=== PATIENT | male | born 1945 | race Caucasian/White ===

== ENCOUNTER 2016-11-03 06:59 | Inpatient (IN) | payer MEDICARE, OTHER ==
[~2016-11-03] VITALS: Ht 170.2 cm; Wt 89.9 kg
[2016-11-03] VITALS (8 sets, daily range): BP systolic 138–143; BP diastolic 63–65; PULSE 84–99; RESP 17; TEMP 98.6; Ht 170.2 cm; Wt 89.9 kg
[~2016-11-03 06:59] MED LIST: ALLO100T64 PO; ALPR0.257 PO; AMLO-145 PO; ASP81 PO; ATOR20TA38 PO; CARV6.2579 PO; CLOP75TA27 PO; DOCU-144 PO; HYDR-3498 PO; HYDR-3672 PO; ISOS30TA5 PO; LOSA50TA6 PO; OXYC5TAB84 PO; ROPI0.2530 PO; ZOLP5TAB6 PO
[2016-11-03] MEDS ORDERED: ALBUTEROL 0.5% (NEB) 2.5 MG/0.5 ML AMP INH STA (07:25)
[2016-11-03] MEDS ORDERED: IPRATROPIUM (NEB) 0.5 MG/2.5 ML AMP INH STA (07:25)
[2016-11-03] MEDS ORDERED: NITROGLYCERIN (SL) 0.4 MG TAB ONE (07:29)
[2016-11-03] MEDS ORDERED: NITROGLYCERIN (SL) 0.4 MG TAB SL PRN ×2 (07:30→11:00)
[2016-11-03] MEDS ORDERED: ASPIRIN 325 MG TAB PO STA (07:30)
[2016-11-03] MEDS ORDERED: NITROGLYCERIN 50 MG/D5W (PMX) 250 ML IV STA (07:32)
--- NOTE | 2016-11-03 07:33 | ERA ---
ER Documentation Chief Complaint Date/Time DATE: 11/03/16 TIME: 07:31 Chief Complaint BIBA FOR SOB,COUGHING AND WEAKNESS. HPI This is a 71-year-old male with known history of end-stage renal disease on hemodialysis every Thursday and Thursday. His last full run of dialysis was 48 hours ago. The patient was scheduled to have dialysis this morning at 8: 15 AM however was unable to go to his dialysis appointment as he stated he was experiencing severe difficulty breathing, productive cough and generalized myalgias. He indicates the coughing has been present for several months. The shortness of breath he indicates worsened over the past 24 hours. One week ago he was at [facility] on an outpatient basis to see a equipment tech. He stated a chest radiograph had been performed and was normal. His industrial boilermaker is Dr. Pop Johnson. The patient states he has had no fevers no shaking or chills. The patient also indicates that while in route to the hospital via EMS he developed a chest pressure that did not radiate to the neck arm back or jaw. He indicates the chest pressure still present at this time. One year ago the patient had an echocardiogram that showed an ejection fraction of 40% with left ventricular systolic dysfunction ROS All systems reviewed and are negative except as per history of present illness. Medications Home Meds Active Scripts Atorvastatin Calcium* (Atorvastatin Calcium*) 20 Mg Tab, 40 MG PO HS for 90 Days Prov:POP JOHNSON MD 09/06/15 Aspirin (Aspirin) 81 Mg Chew, 81 MG PO DAILY for 90 Days Prov:POP JOHNSON MD 09/06/15 Ropinirole Hcl* (Requip*) 0.25 Mg Tab, 0.5 MG PO TID, #90 Prov:POP JOHNSON MD 08/23/15 Docusate Sodium* (Colace*) 100 Mg Cap, 300 MG PO HS for 30 Days Prov:POP JOHNSON MD 08/23/15 Reported Medications Losartan Potassium* (Losartan Potassium*) 50 Mg Tablet, 50 MG PO DAILY 09/13/13 Amlodipine Besylate* (Amlodipine Besylate*) 5 Mg Tablet, 5 MG PO DAILY 09/13/13 Hydralazine Hcl* (Apresoline*) 50 Mg Tab, 50 MG PO BID 09/13/13 Hydrocodone Bit-Acetaminophen (Hydrocodone Bit-APAP) 1 Each Tablet, 1 EACH PO Q6 09/13/13 Alprazolam (Alprazolam) 0.25 Mg Tab.rapdis, 0.25 MG PO BID 09/13/13 Allopurinol* (Zyloprim*) 100 Mg Tablet, 100 MG PO DAILY 09/13/13 Oxycodone Hcl* (Oxecta*) 5 Mg Tablet.orl, 5 MG PO Q8 09/13/13 Isosorbide Mononitrate* (Isosorbide Mononitrate*) 30 Mg Tab.er.24h, 30 MG PO DAILY 05/19/13 Carvedilol* (Carvedilol*) 6.25 Mg Tablet, 12.5 MG PO BID 05/19/13 Zolpidem Tartrate* (Zolpidem Tartrate*) 5 Mg Tablet, 5 MG PO HS 03/26/13 Clopidogrel Bisulfate (Clopidogrel) 75 Mg Tablet, 75 MG PO DAILY 03/26/13 Allergies Allergies: Coded Allergies: No Known Allergy (Unverified , 09/03/15) PT. WAS ON BICILLIN BEFORE, WAS TOLD BY THE DOCTOR THAT HE IS NOT ALLERGIC TO PCN. PMhx/Soc History of Surgery: Yes (KIDNEY TRANSPLANT,AVF PLACEMENT,STENTS) Anesthesia Reaction: No Hx Neurological Disorder: Yes (CVA) Hx Respiratory Disorders: No Hx Cardiac Disorders: Yes (HTN, MD, STENTS) Hx Psychiatric Problems: Yes (ANXIETY) Hx Miscellaneous Medical Probl: No Hx Alcohol Use: No Hx Substance Use: No Hx Tobacco Use: No Physical Exam Vitals Vital Signs Date Time Temp Pulse Resp B/P Pulse Ox O2 Delivery O2 Flow Rate FiO2 11/03/16 11:40 85 20 165/93 100 BIPAP 11/03/16 11:30 83 20 151/83 100 BIPAP 11/03/16 11:15 86 20 148/79 100 BIPAP 11/03/16 11:00 86 20 131/82 100 BIPAP 11/03/16 10:15 103 20 138/89 100 BIPAP 11/03/16 10:00 101 20 142/85 100 BIPAP 11/03/16 09:45 97 20 138/75 100 BIPAP 11/03/16 09:34 90 100 60 11/03/16 09:30 98 20 149/74 100 BIPAP 11/03/16 09:15 101 20 157/75 100 BIPAP 11/03/16 09:00 101 20 143/88 100 BIPAP 11/03/16 08:45 102 20 141/80 100 BIPAP 11/03/16 08:30 101 24 147/83 100 BIPAP 11/03/16 08:15 106 24 157/85 100 BIPAP 11/03/16 08:00 112 24 173/95 100 BIPAP 11/03/16 07:50 98.0 123 24 204/102 100 BIPAP 11/03/16 07:47 120 25 97 100 11/03/16 07:47 125 99 100 11/03/16 07:35 128 28 237/132 92 Mask 6.0 11/03/16 07:14 98.0 104 24 177/117 100 Physical Exam Constitutional:Well-developed. Well-nourished. Patient in severe respiratory distress HEENT:Normocephalic. Atraumatic.Pupils were equal round reactive to light. Moist mucous membranes.No tonsillar exudates. Neck: No nuchal rigidity. No lymphadenopathy. No posterior cervical spine tenderness or step-offs. Respiratory: Patient using accessory muscles of respiration. Unable to speak more than 2 words before becoming short of breath. Bilateral rhonchi more prominent on the left than the right as breath sounds were slightly diminished in the right lower lobe. No wheezing on end auscultation bilaterally. Cardiovascular: Regular rate regular rhythm.No murmurs. No rubs were appreciated.S1, S2 normal. Distal pulses are palpable 2+ bilaterally. GI: Abdomen was soft. Nontender. Non Distended. No pulsatile abdominal masses or bruits. No rebound. No guarding. Bowel sounds were present and normal. Muscle skeletal: Full range of motion of both the upper and lower extremities bilaterally.Normal muscle tone.No assymetrical calf tenderness or swelling. Skin: No petechia, no purpura. No lesions on the palms or the soles of the feet. No maculopapular rash. Positive thrill and bruit of the left upper extremity AV fistula. NEURO: Patient was alert, awake, orientated x3.No facial droop. Gait not observed due to severe respiratory distress.Speech had regular rate and rhythm. No focal neurological deficits. Result Diagram: 1/16/17 0808 1/16/17 0808 Results 24 hrs Laboratory Tests Test 11/03/16 08:08 11/03/16 11:25 Activated Partial Thromboplast Time 39.0Sec Alanine Aminotransferase (ALT/SGPT) 26IU/L Albumin 3.7g/dl Albumin/Globulin Ratio 1.19 Alkaline Phosphatase 167IU/L Anion Gap 23 Aspartate Amino Transf (AST/SGOT) 27IU/L Basophils # 0.010^3/ul Basophils % 0.4% Blood Morphology Comment Blood Urea Nitrogen 50mg/dl Calcium Level 9.3mg/dl Carbon Dioxide Level 30mmol/L Chloride Level 96mmol/L Creatinine 9.16mg/dl Direct Bilirubin 0.00mg/dl Eosinophils # 0.210^3/ul Eosinophils % 3.8% Globulin 3.10g/dl Glucose Level 112mg/dl Hematocrit 32.4% Hemoglobin 10.2g/dl INR International Normalized Ratio 1.08 Indirect Bilirubin 0.2mg/dl Lymphocytes # 1.210^3/ul Lymphocytes % 20.9% Mean Corpuscular Hemoglobin 27.9pg Mean Corpuscular Hemoglobin Concent 31.6g/dl Mean Corpuscular Volume 88.1fl Mean Platelet Volume 7.6fl Monocytes # 0.210^3/ul Monocytes % 4.4% Neutrophils # 3.910^3/ul Neutrophils % 70.5% Nucleated Red Blood Cells # 0.010^3/ul Nucleated Red Blood Cells % 0.0/100WBC Platelet Count 72933^3/UL Potassium Level 4.8mmol/L Prothrombin Time 14.0Sec Prothrombin Time Ratio 1.1 Red Blood Count 3.6810^6/ul Red Cell Distribution Width 20.2% Sodium Level 144mmol/L Total Bilirubin 0.2mg/dl Total Protein 6.8g/dl Troponin I 0.041ng/ml Pending White Blood Count 5.610^3/ul Creatine Kinase 23IU/L Creatine Kinase Index Pending Creatinine Kinase MB (Mass) Pending Current Medications Medications (Trade) Dose Ordered Sig/Leonardo Route PRN Reason Start Time Stop Time Status Last Admin Dose Admin Albuterol (Proventil 0.5% (Neb)) 10 mg ONCE STAT INH 11/03/16 07:25 11/03/16 07:28 DC 11/03/16 07:45 Ipratropium [place] (Atrovent 0.02% (Neb)) 1 mg ONCE STAT INH 11/03/16 07:25 11/03/16 07:28 DC 11/03/16 07:46 Nitroglycerin (Nitroglycerin (Sl Tab) 0.4 Mg) 25 tab STK-MED ONCE .ROUTE 11/03/16 07:29 11/03/16 07:30 DC Aspirin (Aspirin) 325 mg ONCE STAT PO 11/03/16 07:30 11/03/16 07:31 DC 11/03/16 07:44 Nitroglycerin 1 tab 1 tab Q5M UP TO 3 DOSES PRN SL CHEST PAIN 11/03/16 07:30 11/03/16 17:00 Nitroglycerin/ Dextrose 250 ml @ 0 mls/hr ONCE STAT IV 11/03/16 07:32 11/03/16 07:34 DC 11/03/16 07:45 Nitroglycerin/ Dextrose (Nitroglycerin 50 Mg/D5W (Pmx)) 250 ml @ ud STK-MED ONCE .ROUTE 11/03/16 07:35 11/03/16 07:36 DC Allopurinol (Zyloprim) 100 mg DAILY PO 11/03/16 12:00 11/03/16 11:56 Amlodipine Besylate (Norvasc) 5 mg DAILY PO 11/03/16 11:00 11/03/16 11:56 Aspirin (Aspirin) 81 mg DAILY PO 11/04/16 09:00 Atorvastatin Calcium (Lipitor) 40 mg DAILY@21 PO 11/03/16 21:00 Carvedilol (Coreg) 12.5 mg BID PO 11/03/16 11:00 11/03/16 11:56 Clopidogrel Bisulfate (plaVIX) 75 mg DAILY PO 11/03/16 11:00 11/03/16 11:54 Docusate Sodium (Colace) 300 mg HS PO 11/03/16 21:00 Hydralazine HCl (Apresoline) 50 mg BID PO 11/03/16 21:00 Acetaminophen/ Hydrocodone Bitart ([place] (5/325)) 1 tab Q6H PRN PO PAIN LEVEL 4-7 11/03/16 11:00 Isosorbide Mononitrate (Imdur) 30 mg DAILY PO 11/04/16 09:00 Losartan Potassium (Cozaar) 50 mg BID PO 11/03/16 21:00 Oxycodone HCl (Roxicodone) 5 mg Q8H PRN PO PAIN 11/03/16 14:00 11/03/16 14:00 DC Ropinirole HCl (Requip) 0.5 mg TID PO 11/03/16 13:00 11/03/16 11:57 Zolpidem Tartrate (Ambien) 5 mg HS PRN PO INSOMNIA 11/03/16 11:00 Alprazolam (Xanax) 0.25 mg BID PO 11/03/16 21:00 IV Flush (NS 3 ml) 3 ml PER PROTOCOL IV 11/03/16 11:00 Ondansetron HCl (Zofran Tab) 4 mg Q6H PRN PO NAUSEA AND/OR VOMITING 11/03/16 11:00 Nitroglycerin (Nitroglycerin (Sl Tab) 0.4 Mg) 1 tab Q5M PRN SL CHEST PAIN 11/03/16 11:00 Acetaminophen (Tylenol Tab) 650 mg Q6H PRN PO PAIN LEVEL 1-3 OR FEVER 11/03/16 11:00 Pantoprazole (Protonix Tab) 40 mg DAILY@06 PO 11/04/16 06:00 Allopurinol (Zyloprim) 100 mg DAILY PO 11/03/16 12:00 UNV Amlodipine Besylate (Norvasc) 5 mg DAILY PO 11/03/16 12:00 UNV Atorvastatin Calcium (Lipitor) 40 mg HS PO 11/03/16 21:00 UNV Carvedilol (Coreg) 12.5 mg BID PO 11/03/16 21:00 UNV Docusate Sodium (Colace) 300 mg HS PO 11/03/16 21:00 UNV Oxycodone HCl (Roxicodone) 5 mg Q8H PRN PO PAIN 11/03/16 14:00 Ropinirole HCl (Requip) 0.5 mg TID PO 11/03/16 13:00 11/03/16 13:00 DC Miscellaneous Information 0.25 mg BID PO 11/03/16 11:00 UNV IV Flush (NS 3 ml) 3 ml PER PROTOCOL IV 11/03/16 11:00 UNV Pantoprazole (Protonix Tab) 40 mg DAILY@06 PO 11/04/16 06:00 UNV Procedures/MDM The patient presented to the emergency department with shortness of breath. My differential diagnosis included but was not limited to upper airway obstruction , CHF, pulmonary embolism, cardiac ischemia, pneumonia, pneumothorax, anemia, drug overdose, pulmonary edema, COPD or asthma. This patient also presented to the emergency department with severely elevated blood pressure. My differential diagnosis included but was not limited to conditions that could end-organ damage such as acute coronary syndrome, acute pulmonary edema, aortic dissection, subarachnoid hemorrhage, intracerebral hemorrhage, cerebral infarction, withdrawal syndromes from beta blockers, or states of catecholamine excess such as pheochromocytoma or drug intoxication. The patient had uncontrolled hypertensive with end-organ damage to suggest hypertensive emergency. The treatment goal was immediate reduction of the mean arterial blood pressure. This was done in a controlled, graded manor, using improvement of the patient's condition as a guide. The patient's blood pressure reduction did not exceed more then a 20-25 percent reduction within the first 30 to 60 minutes. The patient was put on a fisheries enforcement officer, continuous pulse oximetry, and IV access was established by nursing staff. The antihypertensive agent used was nitroglycerin and the patient had been placed on noninvasive mechanical ventilation with a BiPAP for the patient's severe difficulty in breathing. The patient was also given nebulizer treatments of albuterol and Atrovent. 12 Lead EKG tracing ordered and reviewed by myself showed: Sinus tachycardia of 118 bpm and no arrhythmia. NJ interval normal. QRS duration widened at 152 ms. The patient had a left bundle branch block however utilizing a scar posterior criteria there is no underlying ST segment elevation or depression No ST segment elevation No ST segment depression. No changes consistent with acute ischemia. A One view chest radiograph is ordered and reviewed by myself and indicated the following: Findings consistent with asymmetrical pulmonary edema and rule out congestive heart failure. Inflammatory infiltrates particularly at the bases and right upper lobe should be considered. I did obtain blood cultures however my clinical suspicion was low for pneumonia as there is no leukocytosis no fever and the patient did not have a productive cough. I did feel the patient is admitted for more consistent with pulmonary edema from congestive heart failure and therefore antibiotics were not started at this time and blood cultures will be followed up with. I spoke with Dr. Spencer who was taking call for Dr. Johnson and will arrange for emergent dialysis. The patient will be medicine serious condition to the hospitalist Dr. Cuba to the intensive care unit Critical Care: Time: 60 minutes Treatments/Evaluations: Close monitoring and treatment of unstable vital signs, cardiorespiratory, and neurologic status, while maintaining tight balance of fluid, respiratory, and cardiac interventions. Departure Diagnosis: Primary Impression: Congestive heart failure Qualified Code: I50.9 - Acute congestive heart failure, unspecified congestive heart failure type Additional Impressions: Hypertensive emergency Acute renal failure Qualified Code: N17.9 - Acute renal failure, unspecified acute renal failure type Pleural effusion on right Condition: Serious ESTRELLA TALBERT Nov 03, 2016 07:32
[2016-11-03] MEDS ORDERED: NITROGLYCERIN 50 MG/D5W (PMX) 250 ML ONE (07:35)
--- NOTE | 2016-11-03 07:57 | RADRPT ---
PROCEDURE: XR Chest. CLINICAL INDICATION: New asthma exacerbation TECHNIQUE: Single portable view of the chest was obtained COMPARISON: Chest 09/04/2015 FINDINGS: The heart is probably upper limits of normal in size allowing for technique. There is bilateral air space disease fairly diffuse throughout the right lung and in left perihilar and left lower lobe. The pulmonary vasculature is indistinct. There is a small right pleural effusion. Probable small l eft pleural effusion. IMPRESSION: Findings consistent with asymmetrical pulmonary edema and rule out congestive heart failure. Inflam matory infiltrates particularly at the bases and right upper lobe should be considered. RPTAT:AAJJ Physician Suzie Date Time Electronically viewed and signed by Lin Pham Physician on 11/03/2016 07:57 /
[2016-11-03 08:22] LABS: BASOPHILS % 0.4 % (0.0-2.0); EOSINOPHILS # 0.2 10^3/ul (0.0-0.5); EOSINOPHILS % 3.8 % (0.0-7.0); HEMATOCRIT 32.4 % (42.0-52.0); HEMOGLOBIN 10.2 g/dl (14.0-18.0); LYMPHOCYTES # 1.2 10^3/ul (0.8-2.9); LYMPHOCYTES % 20.9 % (15.0-51.0); MEAN CORPUSCULAR HEMOGLOBIN 27.9 pg (29.0-33.0); MEAN CORPUSCULAR HGB CONC 31.6 g/dl (32.0-37.0); MEAN CORPUSCULAR VOLUME 88.1 fl (82.0-101.0); MEAN PLATELET VOLUME 7.6 fl (7.4-10.4); MONOCYTE # 0.2 10^3/ul (0.3-0.9); MONOCYTES % 4.4 % (0.0-11.0); NEUTROPHIL # 3.9 10^3/ul (1.6-7.5); NEUTROPHILS % 70.5 % (39.0-77.0); PLATELET COUNT 163 10^3/UL (140-440); RED BLOOD COUNT 3.68 10^6/ul (4.70-6.10); RED CELL DISTRIBUTION WIDTH 20.2 % (11.5-14.5); UNCORRECTED WBC 5.6 10^3/ul (4.8-10.8); WHITE BLOOD COUNT 5.6 10^3/ul (4.8-10.8)
[2016-11-03 08:25] LABS: ALBUMIN 3.7 g/dl (3.3-4.9); INR 1.08; POTASSIUM 4.8 mmol/L (3.5-5.1); PT RATIO 1.1
[2016-11-03 08:27] LABS: ALBUMIN/GLOBULIN RATIO 1.19; BILIRUBIN,INDIRECT 0.2 mg/dl (0-1.1); BILIRUBIN,TOTAL 0.2 mg/dl (0.2-1.3); CREATININE 9.16 mg/dl (0.61-1.24); TOTAL PROTEIN 6.8 g/dl (6.1-8.1)
[2016-11-03 08:28] LABS: CALCIUM 9.3 mg/dl (8.4-10.2)
[2016-11-03 08:36] LABS: CONDITION 1; LH ANALYZER COMMENTS 1
[2016-11-03 08:40] LABS: TROPONIN-I 0.041 ng/ml (0.00-0.12)
[2016-11-03] MEDS ORDERED: HYDROCODONE/APAP (5/325) TAB PO PRN (11:00)
[2016-11-03] MEDS ORDERED: NACL 0.9% 3 ML SYG IV SCH ×2 (11:00)
[2016-11-03] MEDS ORDERED: NON-FORMULARY/PATIENT OWN MED (Alprazolam 0.25 MG) PO SCH (11:00)
[2016-11-03] MEDS ORDERED: ONDANSETRON 4 MG TAB PO PRN (11:00)
[2016-11-03] MEDS ORDERED: ACETAMINOPHEN 325 MG TAB PO PRN (11:00)
--- NOTE | 2016-11-03 11:51 | CONS ---
Date/Time of Note Date/Time of Note DATE: 11/03/16 TIME: 11:38 INPATIENT CONSULTATION REQUESTING PHYSICIAN: Dr. Cuba REASON FOR CONSULT: Congestive heart failure, hypertension, chest pain HISTORY OF PRESENT ILLNESS: Patient is a 71-year-old white male 1. Known coronary artery disease multiple coronary stents interventions . Last angiogram 09/02 occluded circumflex only treated medically. 2. Intermittent left bundle-branch block. 3. End-stage renal disease on dialysis failed to prior renal transplants. 4. Hypertension. 5. Hyperlipidemia. 6. Gout. 7. Known ischemic cardiopathy ejection fraction 40%. Patient with 3 month history of chronic cough who was admitted with sudden onset of shortness of breath and chest pain found to be markedly hypertensive and placed on IV nitroglycerin and BiPAP currently feeling better. Did not have his dialysis this morning as scheduled. Denies any PND has chronic leg edema denies any palpitations leg edema or syncope. His cardiac history is complex and unknown at this time but is followed by Dr. lawton at [place]. Patient states that last weekend her chest x-ray at [facility] which was clear. RISK FACTORS former smoker, known coronary artery disease, renal failure, hypertension, hyperlipidemia, gout, there is no diabetes or family history of early heart disease. PAST MEDICAL HISTORY: 1. Hypertension. 2. Hyperlipidemia. 3. End-stage renal disease failed to renal transplants. 4. Coronary artery disease multiple coronary stents last angiogram occluded circumflex otherwise treated medically 09/02 5. Known ischemic cardiopathy ejection fraction on last echo 10/1639%. 6. Gout. PAST SURGICAL HISTORY: 2 prior failed renal transplants, please see complete history and physical for further surgical history. MEDICATIONS: Hydralazine 50 twice a day, Lipitor 40 mg day, losartan 50 twice a day, Coreg 12.5 twice a day, Plavix, aspirin, Imdur 30, allopurinol 100 mg, droperidol 0.5 3 times a day, amlodipine 5 mg a day. ALLERGIES: No known drug allergies. SOCIAL HISTORY: Patient retired, former smoker denies alcohol or drug use or smoking at present. FAMILY HISTORY: Denies any family history of premature coronary disease. REVIEW OF SYSTEMS: Patient denied any fevers, chills, weight loss, nausea, vomiting, diarrhea, constipation, has had chronic cough, but no hemoptysis, dysuria, hematuria, nocturia, any neurologic symptoms, headache, had onset of chest pains, dyspnea, but no PND, orthopnea, leg edema, or palpitations. All other review of systems were normal. PHYSICAL EXAMINATION: Vital signs please see chart. HEENT; positive JVD, positive HJR, carotids 2 over 4+ without bruits. Chest: Diffuse rales and rhonchi . Cardiac: S4, S1, S2 with paradoxical splitting, 1/6 systolic ejection murmur, no rub click or diastolic murmur noted. Abdominal: Bowel sounds positive, soft nontender, no abdominal bruit noted, no hepatosplenomegaly. Extremities: No cyanosis, clubbing, trace to 1+ edema bilaterally. Negative Homans sign or palpable cords. Shunt and left arm Pulses: 2/4 pulses diffusely no bruits noted. ADDITIONAL DATA: EKG on admission sinus tachycardia 120 with PVCs left bundle-branch block pattern left axis deviation Chest x-ray revealed asymmetric pulmonary edema right worse than left, cardiomegaly. ASSESSMENT: 1. Pulmonary edema cannot rule out right lung infectious process. 2. Hypertensive crisis. 3. 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 4. Hyperlipidemia. 5. Gout. 6. Coronary artery disease multiple coronary interventions last catheter 09/02 occluded circumflex otherwise treated medically. 7. Ischemic cardiopathy ejection fraction 40% on last echo 11/03 At this time the patient appears to have pulmonary edema with severe hypertension from respiratory difficulty. Will need urgent dialysis and discussed with Dr. Cuba but would also treat for possible concomitant pulmonary infection. We'll continue Lipitor, losartan, carvedilol, hydralazine, amlodipine and continue IV nitroglycerin for now. We'll check echocardiogram. We 'll follow troponin pattern but patient on dialysis. PLAN: 1. Emergent dialysis per Dr. Cuba. 2. Continue hydralazine, losartan, carvedilol, amlodipine and IV nitroglycerin for now. 3. Check 2-D echocardiogram. 4. Follow chest x-ray and troponins and laboratory studies. 5. Consider pulmonary consultation and empiric antibiotics with asymmetric white lung opacification. KAMRYN AYALA MD Nov 03, 2016 11:50
[2016-11-03] MEDS: CLOPIDOGREL 75 MG TAB PO SCH (11:54)
[2016-11-03] MEDS: AMLODIPINE 5 MG TAB PO SCH (11:56)
[2016-11-03] MEDS: ALLOPURINOL 100 MG TAB PO SCH (11:56)
[2016-11-03] MEDS: ROPINIROLE 0.25 MG TAB PO SCH ×2 (11:57→21:24)
[2016-11-03] MEDS ORDERED: ALLOPURINOL 100 MG TAB PO SCH (12:00)
[2016-11-03] MEDS ORDERED: AMLODIPINE 5 MG TAB PO SCH (12:00)
[2016-11-03 12:06] LABS: TROPONIN-I 0.051 ng/ml (0.00-0.12)
[2016-11-03 12:39] LABS: CK-MB 0.42 ng/ml (0.0-2.4)
--- NOTE | 2016-11-03 12:58 | CONS ---
Date/Time of Note Date/Time of Note DATE: 11/03/16 TIME: 12:45 Assessment/Plan Assessment/Plan Chief Complaint/Hosp Course 1) asymmetrical CHF doubt pt has pneumonia continue with diuresis and repeat CXR in a.m. will start ceftriaxone/azithro but if CXR shows good improvement will likely d/ c them tomorrow send sputum cx 2) asymmetrical calf swelling will order LE venous dopplers 3) CAD 4) ESRD with 2 failed kidney Tx Problems: Consultation Date/Type/Reason Admit Date/Time 11/03/16 Date of Consultation: Nov 03, 2016 Type of Consultation: id Hx of Present Illness pt has had a 3 month hx of cough, productive of clear to brownish phlegm He has had progressive SOB but after a BM this a.m. he got very fatigued and more SOB and came to the hospital. He denies F, C, NS. No N, V, D. He states he has had no sick contacts. No muscle aches, joint pains, rashes. No CP, abd pain. He has coryza and sinus drainage Past Medical History ESRD, CVA, [place], CAD, cardiac stents, HTN, hyperlipidemia, gout Past Surgical History failed kidney Tx x2 cataract surgery Social History Smoking Status: Never smoker Exam/Review of Systems Vital Signs Vitals Vital Signs Date Time Temp Pulse Resp B/P Pulse Ox O2 Delivery O2 Flow Rate FiO2 11/03/16 11:40 85 20 165/93 100 BIPAP 11/03/16 09:34 60 11/03/16 07:50 98.0 11/03/16 07:35 6.0 Exam Constitutional: alert, oriented Psych: no complaints Head: normocephalic Eyes: nl conjunctiva, nl sclera ENMT: mucosa pink and moist Neck: supple Respiratory: other (some crackles at R base) Cardiovascular: regular rate and rhythm Gastrointestinal: non-tender, soft Extremities: other (L calf is larger than R calf) Neurological: MOTOR POWER CONNECTOR II-XII intact, nl mental status, nl speech Results Result Diagram: 11/03/16 0808 11/03/16 0808 Results 24 hrs Laboratory Tests Test 11/03/16 08:08 11/03/16 11:25 Activated Partial Thromboplast Time 39.0 H Alanine Aminotransferase (ALT/SGPT) 26 Albumin 3.7 Albumin/Globulin Ratio 1.19 Alkaline Phosphatase 167 H Anion Gap 23 H Aspartate Amino Transf (AST/SGOT) 27 Basophils # 0.0 Basophils % 0.4 Blood Morphology Comment Blood Urea Nitrogen 50 H Calcium Level 9.3 Carbon Dioxide Level 30 Chloride Level 96 L Creatinine 9.16 H Direct Bilirubin 0.00 Eosinophils # 0.2 Eosinophils % 3.8 Globulin 3.10 Glucose Level 112 Hematocrit 32.4 L Hemoglobin 10.2 L INR International Normalized Ratio 1.08 Indirect Bilirubin 0.2 Lymphocytes # 1.2 Lymphocytes % 20.9 Mean Corpuscular Hemoglobin 27.9 L Mean Corpuscular Hemoglobin Concent 31.6 L Mean Corpuscular Volume 88.1 Mean Platelet Volume 7.6 Monocytes # 0.2 L Monocytes % 4.4 Neutrophils # 3.9 Neutrophils % 70.5 Nucleated Red Blood Cells # 0.0 Nucleated Red Blood Cells % 0.0 Platelet Count 163 # Potassium Level 4.8 Prothrombin Time 14.0 Prothrombin Time Ratio 1.1 Red Blood Count 3.68 #L Red Cell Distribution Width 20.2 #H Sodium Level 144 Total Bilirubin 0.2 Total Protein 6.8 Troponin I 0.041 0.051 White Blood Count 5.6 # Creatine Kinase 23 Creatine Kinase Index 1.8 Creatinine Kinase MB (Mass) 0.42 Medications Medications Current Medications Allopurinol (Zyloprim) 100 mg DAILY PO Last administered on 11/03/16 11:56; Admin Dose 100 MG; Start 11/03/16 at 12:00 Amlodipine Besylate (Norvasc) 5 mg DAILY PO Last administered on 11/03/16 11: 56; Admin Dose 5 MG; Start 11/03/16 at 11:00 Aspirin (Aspirin) 81 mg DAILY PO ; Start 11/04/16 at 09:00 Atorvastatin Calcium (Lipitor) 40 mg DAILY@21 PO ; Start 11/03/16 at 21:00 Carvedilol (Coreg) 12.5 mg BID PO Last administered on 11/03/16 11:56; Admin Dose 12.5 MG; Start 11/03/16 at 11:00 Clopidogrel Bisulfate (plaVIX) 75 mg DAILY PO Last administered on 11/03/16 11 :54; Admin Dose 75 MG; Start 11/03/16 at 11:00 Docusate Sodium (Colace) 300 mg HS PO ; Start 11/03/16 at 21:00 Hydralazine HCl (Apresoline) 50 mg BID PO ; Start 11/03/16 at 21:00 Acetaminophen/ Hydrocodone Bitart ([place] (5/325)) 1 tab Q6H PRN PO PAIN LEVEL 4 -7; Start 11/03/16 at 11:00 Isosorbide Mononitrate (Imdur) 30 mg DAILY PO ; Start 11/04/16 at 09:00 Losartan Potassium (Cozaar) 50 mg BID PO ; Start 11/03/16 at 21:00 Ropinirole HCl (Requip) 0.5 mg TID PO Last administered on 11/03/16t 11:57; Admin Dose 0.5 MG; Start 11/03/16 at 13:00 Zolpidem Tartrate (Ambien) 5 mg HS PRN PO INSOMNIA; Start 11/03/16 at 11:00 Alprazolam (Xanax) 0.25 mg BID PO ; Start 11/03/16 at 21:00 Ondansetron HCl (Zofran Tab) 4 mg Q6H PRN PO NAUSEA AND/OR VOMITING; Start at 11:00 Nitroglycerin (Nitroglycerin (Sl Tab) 0.4 Mg) 1 tab Q5M PRN SL CHEST PAIN; Start 11/03/16 at 11:00 Acetaminophen (Tylenol Tab) 650 mg Q6H PRN PO PAIN LEVEL 1-3 OR FEVER; Start at 11:00 Pantoprazole (Protonix Tab) 40 mg DAILY@06 PO ; Start 11/04/16 at 06:00 Oxycodone HCl (Roxicodone) 5 mg Q8H PRN PO PAIN; Start 11/03/16 at 14:00 GILA QUEZADA MD Nov 03, 2016 12:55
[2016-11-03] MEDS ORDERED: CEFTRIAXONE 1 GM INJ IM ONE (13:00)
[2016-11-03] MEDS ORDERED: AZITHROMYCIN 250 MG TAB PO ONE (13:00)
[2016-11-03] MEDS ORDERED: ROPINIROLE 0.25 MG TAB PO SCH (13:00)
[2016-11-03] MEDS ORDERED: CEFTRIAXONE 1 GM INJ IM SCH (13:00)
--- NOTE | 2016-11-03 13:59 | RADRPT ---
PROCEDURE: US Lower extremity Venous. CLINICAL INDICATION: Bilateral lower extremity swelling TECHNIQUE: Multiple sonographic images of the bilateral lower extremity deep venous system was obt ained utilizing grayscale, color-flow, compressive sonography and doppler imaging with augmentation. The images were reviewed on a PACS workstation. COMPARISON: None. FINDINGS: There is normal compressibility and flow within the bilateral common femoral, superficial femoral , posterior tibial and popliteal veins. RPTAT: AA IMPRESSION: No sonographic evidence for deep venous thrombosis. .Quentin Reyna MD, MD Date Time Electronically viewed and signed by .Quentin Reyna MD, on 11/03/2016 13:59 .S/
[2016-11-03] MEDS ORDERED: oxyCODONE 5 MG TAB PO PRN ×2 (14:00)
[2016-11-03] MEDS: CEFTRIAXONE 1 GM/NS 50 ML IVPB SCH (14:00)
--- NOTE | 2016-11-03 17:29 | CONS ---
DATE OF ADMISSION: 11/03/2016 DATE OF CONSULTATION: 11/03/2016 IDENTIFYING DATA: The patient is a 71-year-old male admitted to the hospital with increasing shortn ess of breath. HISTORICAL EVENTS: Patient states he was to undergo dialysis today but it was early in the morning that he noted increasing shortness of breath when he had to "go to the bathroom." He did note some transient chest heaviness without radiating neck, arm or jaw discomfort. He has had a slight cough for the last several months. It is nonproductive, undergoing pulmonary evaluation a week or so ago and was given an "inhaler." He denies any abdominal pain, nausea, or vomiting. PAST MEDICAL HISTORY: 1. Includes non-ST elevation myocardial infarction on 09/02/2016, stents having been placed prior. No intervention at that time was thought needed. He is scheduled for a treadmill tomorrow with . 2. History of left bundle branch block. 3. Known cardiomyopathy and reduced ejection fraction. 4. End-stage renal disease secondary to diabetes. 5. Diabetes mellitus, diet controlled. 6. Hypertension. 7. Hyperlipidemia, gout, depression, history of restless leg syndrome. 8. Gastroesophageal reflux disease. 9. History of failed renal transplant x2. PRESENT MEDICATIONS INCLUDE: 1. Allopurinol 100 mg per day. 2. Amlodipine 5 mg per day. 3. Aspirin 81 mg per day. 4. Coreg 12.5 mg per day. 5. Plavix 75 mg per day. 6. Colace 100 mg per day. 7. Hydralazine 50 b.i.d. 8. Isordil 30 mg per day. 9. Losartan 50 per day. 10. Oxycodone. 11. Requip. 12. Ambien. 13. Xanax 0.25 b.i.d. p.r.n. ALLERGIES: NONE. FAMILY HISTORY: To be reviewed later. PHYSICAL EXAMINATION VITAL SIGNS: BP 210/110, respirations were 22, heart rate was 80, afebrile. EYES: Extraocular muscles were full. NOSE, MOUTH, AND THROAT: Normal. NECK: Revealed no jugular venous distention. LUNGS: A few rales and rhonchi bilaterally. HEART: Rhythm regular, markedly reduced heart sounds. No third sound. No murmur. ABDOMEN: Nontender. Liver and spleen were not palpable. No masses or tenderness were noted. EXTREMITIES: 1+ pedal edema. IMPRESSION: 1. Known coronary artery disease with now clinical evidence of congestive heart failure, doubt pneu monitis. 2. Known cardiomyopathy, ischemic. 3. History of diabetes, having not required medications. 4. Chronic renal failure on outpatient dialysis 3 times per week. PLAN: To be admitted to ICU treatment will be needed given his elevated blood pressure, history of coronary disease and chronic renal disease. His pressure will need careful monitoring as well. Car diology and pulmonary to evaluate. Dictated By: ALONZO COLON/RAYA Conf#: [id number] DID#: [id number]
[2016-11-03 18:13] LABS: TROPONIN-I 0.084 ng/ml (0.00-0.12)
[2016-11-03 18:14] LABS: CK-MB 1.1 ng/ml (0.0-2.4)
[2016-11-03] MEDS ORDERED: DOCUSATE SODIUM 100 MG CAP PO SCH (21:00)
[2016-11-03] MEDS ORDERED: ATORVASTATIN 20 MG TAB PO SCH (21:00)
[2016-11-03] MEDS: LOSARTAN 50 MG TAB PO SCH (21:23)
[2016-11-03] MEDS: DOCUSATE SODIUM 100 MG CAP PO SCH (21:24)
[2016-11-03] MEDS: ALPRAZOLAM 0.25 MG TAB PO SCH (21:26)
[2016-11-03] MEDS: ATORVASTATIN 40 MG TAB PO SCH (21:26)
--- NOTE | 2016-11-03 22:14 | CONS ---
DATE OF ADMISSION: 11/03/2016 DATE OF CONSULTATION: REASON FOR CONSULTATION: Shortness of breath. Thank you, Dr. Serra, for this consultation. HISTORY OF PRESENT ILLNESS: This is a 71-year-old gentleman with multiple medical problems who pres ents with a several-day history of increasing shortness of breath, orthopnea, PND, found to have billy dence of congestive cardiac failure on chest x-ray with hypoxemia. The patient is a known dialysis patient who missed his dialysis schedule this morning. Currently, denies any fever or chills. No c hest pain or palpitations. He had mild hypoxemia requiring initiation of noninvasive positive press ure ventilation, chest pain, which improved on starting nitroglycerin. PAST MEDICAL HISTORY: Coronary artery disease, hypertension, hyperlipidemia, end-stage renal failur e, hypertension, gout, cardiomyopathy with decreased ejection fraction. MEDICATIONS: Per chart. ALLERGIES: NONE. SOCIAL HISTORY: Nonsmoker, no alcohol, no history of drug use. FAMILY HISTORY: Noncontributory. SYSTEMS REVIEW: A 12-point review of systems negative other than that mentioned above. PHYSICAL EXAMINATION: GENERAL: Elderly-appearing gentleman, comfortable at rest, no acute distress. VITAL SIGNS: Currently afebrile, pulse is 70, blood pressure 143/63, O2 saturation 96% on FIO2 of 6 0%. NECK: Supple. No JVD or lymphadenopathy. CARDIAC: S1, S2. No added sounds or murmurs. CHEST: Diminished air entry, both lung wright. ABDOMEN: Soft, nontender, no guarding, no rebound. EXTREMITIES: No cyanosis, clubbing, or edema. NEUROLOGIC: Generalized weakness. LABORATORY DATA: White count 5.6, hemoglobin 10.2, platelets 163. BUN 50, creatinine 9.6. DIAGNOSTIC DATA: Chest x-ray shows pulmonary edema, right side greater than left. IMPRESSION AND PLAN: 1. Hypoxemic respiratory failure secondary to volume overload. 2. End-stage renal failure on hemodialysis. 3. History of hypertension. 4. Hyperlipidemia. The patient will require: 1. Supplemental O2. 2. Noninvasive positive pressure ventilation. 3. Emergent hemodialysis. 4. Blood pressure control. 5. DVT and GI prophylaxis. Dictated By: MUKUND MAGANA/RAYA Conf#: [id number] DID#: [id number] CC: ALONZO SERRA MD; NICO RECINOS MD;*[facility]*
[2016-11-04] VITALS (20 sets, daily range): BP systolic 117–185; BP diastolic 5–88; PULSE 71–89; RESP 16–20
[2016-11-04 00:58] LABS: TROPONIN-I 0.116 ng/ml (0.00-0.12)
[2016-11-04 01:04] LABS: CK-MB 0.55 ng/ml (0.0-2.4)
[2016-11-04] MEDS: PANTOPRAZOLE (EC) 40 MG TAB PO SCH (05:41)
[2016-11-04] MEDS ORDERED: PANTOPRAZOLE (EC) 40 MG TAB PO SCH (06:00)
--- NOTE | 2016-11-04 06:33 | CONS ---
Date/Time of Note Date/Time of Note DATE: 11/04/16 TIME: 06:27 Assessment/Plan Assessment/Plan Chief Complaint/Hosp Course 1) asymmetrical CHF doubt pt has pneumonia continue with diuresis and repeat CXR in a.m. will start ceftriaxone/azithro but if CXR shows good improvement will likely d/ c them tomorrow send sputum cx 11/04 - low grade fever last night with chill will check rapid Flu Ag continue with ceftriaxone/azithro at this time await repeat CXR 2) asymmetrical calf swelling will order LE venous dopplers 11/04 - venous dopplers were negative 3) CAD 4) ESRD with 2 failed kidney Tx Problems: Consultation Date/Type/Reason Admit Date/Time Nov 03, 2016 at 08:52 Initial Consult Date 11/03/16 Type of Consultation: id 24 HR Interval Summary Free Text/Dictation pt had a chill and fever last night occasional production of phlegm but mostly not no N, V, D breathing is better Exam/Review of Systems Vital Signs Vitals Vital Signs Date Time Temp Pulse Resp B/P Pulse Ox O2 Delivery O2 Flow Rate FiO2 11/04/16 04:18 88 11/04/16 03:56 98.6 16 133/63 98 11/04/16 03:52 4.0 11/03/16 23:51 60 11/03/16 21:08 Nasal Cannula Intake and Output 11/03/16 11/03/16 11/04/16 15:00 23:00 07:00 Intake Total 400 ml Output Total 1213 ml Balance -813 ml Exam Constitutional: alert, oriented Head: normocephalic Eyes: nl conjunctiva ENMT: mucosa pink and moist Respiratory: other (decreased BS at L base with crackles at R base) Cardiovascular: regular rate and rhythm Gastrointestinal: non-tender, soft Extremities: other (less swelling) Results Result Diagram: 11/03/16 0808 11/03/16 0808 Results 24 hrs Laboratory Tests Test 11/03/16 08:08 11/03/16 11:25 11/03/16 17:40 11/03/16 23:50 Activated Partial Thromboplast Time 39.0 H Alanine Aminotransferase (ALT/SGPT) 26 Albumin 3.7 Albumin/Globulin Ratio 1.19 Alkaline Phosphatase 167 H Anion Gap 23 H Aspartate Amino Transf (AST/SGOT) 27 Basophils # 0.0 Basophils % 0.4 Blood Morphology Comment Blood Urea Nitrogen 50 H Calcium Level 9.3 Carbon Dioxide Level 30 Chloride Level 96 L Creatinine 9.16 H Direct Bilirubin 0.00 Eosinophils # 0.2 Eosinophils % 3.8 Globulin 3.10 Glucose Level 112 Hematocrit 32.4 L Hemoglobin 10.2 L INR International Normalized Ratio 1.08 Indirect Bilirubin 0.2 Lymphocytes # 1.2 Lymphocytes % 20.9 Mean Corpuscular Hemoglobin 27.9 L Mean Corpuscular Hemoglobin Concent 31.6 L Mean Corpuscular Volume 88.1 Mean Platelet Volume 7.6 Monocytes # 0.2 L Monocytes % 4.4 Neutrophils # 3.9 Neutrophils % 70.5 Nucleated Red Blood Cells # 0.0 Nucleated Red Blood Cells % 0.0 Platelet Count 163 # Potassium Level 4.8 Prothrombin Time 14.0 Prothrombin Time Ratio 1.1 Red Blood Count 3.68 #L Red Cell Distribution Width 20.2 #H Sodium Level 144 Total Bilirubin 0.2 Total Protein 6.8 Troponin I 0.041 0.051 0.084 0.116 White Blood Count 5.6 # B-Type Natriuretic Peptide 95921 H Creatine Kinase 23 85 85 Creatine Kinase Index 1.8 1.3 0.6 Creatinine Kinase MB (Mass) 0.42 1.10 0.55 Thyroid Stimulating Hormone (TSH) 0.880 Medications Medications Current Medications Allopurinol (Zyloprim) 100 mg DAILY PO Last administered on 11/03/16 11:56; Admin Dose 100 MG; Start 11/03/16 at 12:00 Amlodipine Besylate (Norvasc) 5 mg DAILY PO Last administered on 11/03/16 11: 56; Admin Dose 5 MG; Start 11/03/16 at 11:00 Aspirin (Aspirin) 81 mg DAILY PO ; Start 11/04/16 at 09:00 Atorvastatin Calcium (Lipitor) 40 mg DAILY@21 PO Last administered on 21:26; Admin Dose 40 MG; Start 11/03/16 at 21:00 Carvedilol (Coreg) 12.5 mg BID PO Last administered on 11/03/16 21:25; Admin Dose 12.5 MG; Start 11/03/16 at 11:00 Clopidogrel Bisulfate (plaVIX) 75 mg DAILY PO Last administered on 11/03/16 11 :54; Admin Dose 75 MG; Start 11/03/16 at 11:00 Docusate Sodium (Colace) 300 mg HS PO Last administered on 11/03/16 21:24; Admin Dose 300 MG; Start 11/03/16 at 21:00 Hydralazine HCl (Apresoline) 50 mg BID PO Last administered on 11/03/16 21:25 ; Admin Dose 50 MG; Start 11/03/16 at 21:00 Acetaminophen/ Hydrocodone Bitart ([place] (5/325)) 1 tab Q6H PRN PO PAIN LEVEL 4 -7; Start 11/03/16 at 11:00 Isosorbide Mononitrate (Imdur) 30 mg DAILY PO ; Start 11/04/16 at 09:00 Losartan Potassium (Cozaar) 50 mg BID PO Last administered on 11/03/16 21:23; Admin Dose 50 MG; Start 11/03/16 at 21:00 Ropinirole HCl (Requip) 0.5 mg TID PO Last administered on 11/03/16 21:24; Admin Dose 0.5 MG; Start 11/03/16 at 13:00 Zolpidem Tartrate (Ambien) 5 mg HS PRN PO INSOMNIA; Start 11/03/16 at 11:00 Alprazolam (Xanax) 0.25 mg BID PO Last administered on 11/03/16 21:26; Admin Dose 0.25 MG; Start 11/03/16 at 21:00 Ondansetron HCl (Zofran Tab) 4 mg Q6H PRN PO NAUSEA AND/OR VOMITING; Start at 11:00 Nitroglycerin (Nitroglycerin (Sl Tab) 0.4 Mg) 1 tab Q5M PRN SL CHEST PAIN; Start 11/03/16 at 11:00 Acetaminophen (Tylenol Tab) 650 mg Q6H PRN PO PAIN LEVEL 1-3 OR FEVER; Start at 11:00 Pantoprazole (Protonix Tab) 40 mg DAILY@06 PO Last administered on 11/04/16 05 :41; Admin Dose 40 MG; Start 11/04/16 at 06:00 Oxycodone HCl (Roxicodone) 5 mg Q8H PRN PO PAIN; Start 11/03/16 at 14:00 Azithromycin 250 mg 250 mg DAILY PO ; Start 11/04/16 at 09:00 Ceftriaxone Sodium (Rocephin) 50 ml @ 100 mls/hr Q24H IVPB ; Start 11/03/16 at 14:00 GILA QUEZADA MD Nov 04, 2016 06:33
[2016-11-04 08:15] LABS: BASOPHILS % 0.7 % (0.0-2.0); EOSINOPHILS # 0.1 10^3/ul (0.0-0.5); EOSINOPHILS % 2.7 % (0.0-7.0); HEMATOCRIT 26.2 % (42.0-52.0); HEMOGLOBIN 8.4 g/dl (14.0-18.0); LYMPHOCYTES # 1.1 10^3/ul (0.8-2.9); LYMPHOCYTES % 26.4 % (15.0-51.0); MEAN CORPUSCULAR HEMOGLOBIN 28.1 pg (29.0-33.0); MEAN CORPUSCULAR HGB CONC 32.1 g/dl (32.0-37.0); MEAN CORPUSCULAR VOLUME 87.6 fl (82.0-101.0); MEAN PLATELET VOLUME 8.1 fl (7.4-10.4); MONOCYTE # 0.2 10^3/ul (0.3-0.9); NEUTROPHIL # 2.6 10^3/ul (1.6-7.5); NEUTROPHILS % 64.2 % (39.0-77.0); PLATELET COUNT 126 10^3/UL (140-440); RED BLOOD COUNT 2.99 10^6/ul (4.70-6.10); RED CELL DISTRIBUTION WIDTH 20.3 % (11.5-14.5); UNCORRECTED WBC 4.1 10^3/ul (4.8-10.8); WHITE BLOOD COUNT 4.1 10^3/ul (4.8-10.8)
[2016-11-04 08:20] LABS: CONDITION 1; LH ANALYZER COMMENTS 1
--- NOTE | 2016-11-04 08:34 | CONS ---
Date/Time of Note Date/Time of Note DATE: 11/04/16 TIME: 08:29 Assessment/Plan Assessment/Plan Problems: (1) ESRD (end stage renal disease) on dialysis Comment: better post short HD yesterday... for repeat today and in AM (2) Congestive heart failure Status: Acute Comment: improved w HD Qualifiers: Congestive heart failure type: unspecified congestive heart failure type Congestive heart failure chronicity: acute Qualified Code: I50.9 - Acute congestive heart failure, unspecified congestive heart failure type (3) Arteriosclerotic heart disease (ASHD) Comment: for ECHO today.. no clinical evidence for active ischemia Consultation Date/Type/Reason Admit Date/Time Nov 03, 2016 at 08:52 Initial Consult Date 11/03/16 Type of Consultation: nephrology Reason for Consultation for ESRD f/u 24 HR Interval Summary Constitutional: no complaints (... feels improved... less SOB, albeit still w coughj... no sp tho) Exam/Review of Systems Vital Signs Vitals Vital Signs Date Time Temp Pulse Resp B/P Pulse Ox O2 Delivery O2 Flow Rate FiO2 11/04/16 08:15 79 11/04/16 07:35 98.0 20 153/70 100 11/04/16 03:52 4.0 11/03/16 23:51 60 11/03/16 21:08 Nasal Cannula Intake and Output 11/03/16 11/03/16 11/04/16 15:00 23:00 07:00 Intake Total 400 ml Output Total 1213 ml Balance -813 ml Exam Constitutional: alert Head: atraumatic, normocephalic Neck: non-tender, supple Respiratory: clear to auscultation Cardiovascular: regular rate and rhythm Additional Comments well fxn AVF in the LUE Results Result Diagram: 11/04/16 0705 11/03/16 0808 Results 24 hrs Laboratory Tests Test 11/03/16 11:25 11/03/16 17:40 11/03/16 23:50 11/04/16 07:05 B-Type Natriuretic Peptide 75280 H Creatine Kinase 23 85 85 Creatine Kinase Index 1.8 1.3 0.6 Creatinine Kinase MB (Mass) 0.42 1.10 0.55 Thyroid Stimulating Hormone (TSH) 0.880 Troponin I 0.051 0.084 0.116 Basophils # 0.0 Basophils % 0.7 Blood Morphology Comment Eosinophils # 0.1 Eosinophils % 2.7 Hematocrit 26.2 L Hemoglobin 8.4 L Lymphocytes # 1.1 Lymphocytes % 26.4 Mean Corpuscular Hemoglobin 28.1 L Mean Corpuscular Hemoglobin Concent 32.1 Mean Corpuscular Volume 87.6 Mean Platelet Volume 8.1 Monocytes # 0.2 L Monocytes % 6.0 Neutrophils # 2.6 Neutrophils % 64.2 Nucleated Red Blood Cells # 0.0 Nucleated Red Blood Cells % 0.0 Platelet Count 126 #L Red Blood Count 2.99 L Red Cell Distribution Width 20.3 H White Blood Count 4.1 #L Medications Medications Current Medications Allopurinol (Zyloprim) 100 mg DAILY PO Last administered on 11/03/16 11:56; Admin Dose 100 MG; Start 11/03/16 at 12:00 Amlodipine Besylate (Norvasc) 5 mg DAILY PO Last administered on 11/03/16 11: 56; Admin Dose 5 MG; Start 11/03/16 at 11:00 Aspirin (Aspirin) 81 mg DAILY PO ; Start 11/04/16 at 09:00 Atorvastatin Calcium (Lipitor) 40 mg DAILY@21 PO Last administered on 21:26; Admin Dose 40 MG; Start 11/03/16 at 21:00 Carvedilol (Coreg) 12.5 mg BID PO Last administered on 11/03/16 21:25; Admin Dose 12.5 MG; Start 11/03/16 at 11:00 Clopidogrel Bisulfate (plaVIX) 75 mg DAILY PO Last administered on 11/03/16 11 :54; Admin Dose 75 MG; Start 11/03/16 at 11:00 Docusate Sodium (Colace) 300 mg HS PO Last administered on 11/03/16 21:24; Admin Dose 300 MG; Start 11/03/16 at 21:00 Hydralazine HCl (Apresoline) 50 mg BID PO Last administered on 11/03/16 21:25 ; Admin Dose 50 MG; Start 11/03/16 at 21:00 Acetaminophen/ Hydrocodone Bitart ([place] (5/325)) 1 tab Q6H PRN PO PAIN LEVEL 4 -7; Start 11/03/16 at 11:00 Isosorbide Mononitrate (Imdur) 30 mg DAILY PO ; Start 11/04/16 at 09:00 Losartan Potassium (Cozaar) 50 mg BID PO Last administered on 11/03/16 21:23; Admin Dose 50 MG; Start 11/03/16 at 21:00 Ropinirole HCl (Requip) 0.5 mg TID PO Last administered on 11/03/16 21:24; Admin Dose 0.5 MG; Start 11/03/16 at 13:00 Zolpidem Tartrate (Ambien) 5 mg HS PRN PO INSOMNIA; Start 11/03/16 at 11:00 Alprazolam (Xanax) 0.25 mg BID PO Last administered on 11/03/16 21:26; Admin Dose 0.25 MG; Start 11/03/16 at 21:00 Ondansetron HCl (Zofran Tab) 4 mg Q6H PRN PO NAUSEA AND/OR VOMITING; Start at 11:00 Nitroglycerin (Nitroglycerin (Sl Tab) 0.4 Mg) 1 tab Q5M PRN SL CHEST PAIN; Start 11/03/16 at 11:00 Acetaminophen (Tylenol Tab) 650 mg Q6H PRN PO PAIN LEVEL 1-3 OR FEVER; Start at 11:00 Pantoprazole (Protonix Tab) 40 mg DAILY@06 PO Last administered on 11/04/16 05 :41; Admin Dose 40 MG; Start 11/04/16 at 06:00 Oxycodone HCl (Roxicodone) 5 mg Q8H PRN PO PAIN; Start 11/03/16 at 14:00 Azithromycin 250 mg 250 mg DAILY PO ; Start 11/04/16 at 09:00 Ceftriaxone Sodium (Rocephin) 50 ml @ 100 mls/hr Q24H IVPB ; Start 11/03/16 at 14:00 POP BOYCE MD Nov 04, 2016 08:34
[2016-11-04] MEDS: ASPIRIN 81 MG TAB PO SCH (08:41)
[2016-11-04] MEDS: CLOPIDOGREL 75 MG TAB PO SCH (08:42)
[2016-11-04] MEDS: AZITHROMYCIN 250 MG TAB PO SCH (08:43)
[2016-11-04] MEDS: ROPINIROLE 0.25 MG TAB PO SCH ×3 (08:43→20:53)
[2016-11-04] MEDS: ALLOPURINOL 100 MG TAB PO SCH (08:44)
[2016-11-04 08:46] LABS: ALBUMIN 3.3 g/dl (3.3-4.9)
[2016-11-04 08:47] LABS: POTASSIUM 4.4 mmol/L (3.5-5.1)
[2016-11-04] MEDS: ALPRAZOLAM 0.25 MG TAB PO SCH ×2 (08:47→20:52)
[2016-11-04 08:49] LABS: ALBUMIN/GLOBULIN RATIO 1.17; BILIRUBIN,INDIRECT 0.2 mg/dl (0-1.1); BILIRUBIN,TOTAL 0.2 mg/dl (0.2-1.3); CREATININE 8.83 mg/dl (0.61-1.24); TOTAL PROTEIN 6.1 g/dl (6.1-8.1)
[2016-11-04 08:50] LABS: PHOSPHORUS 4.4 mg/dl (2.5-4.9)
[2016-11-04] MEDS: ISOSORBIDE MONONITRATE(SR)30 MG TAB PO SCH (09:00)
[2016-11-04] MEDS: LOSARTAN 50 MG TAB PO SCH ×2 (09:00→20:52)
[2016-11-04] MEDS ORDERED: CEFTRIAXONE 1 GM INJ IVPB ONE (09:00)
[2016-11-04] MEDS: AMLODIPINE 5 MG TAB PO SCH (09:00)
--- NOTE | 2016-11-04 09:27 | RADRPT ---
PROCEDURE: XR Chest AP portable CLINICAL INDICATION: CHF TECHNIQUE: An AP portable radiograph of the chest was submitted. COMPARISON: 11/03/2016 FINDINGS: Support Hardware: None Cardiovascular: The heart is mildly enlarged, the aorta appears atherosclerotic, and the pulmonary v asculature appears congested. The aorta appears atherosclerotic. Lung [place]: Bilateral interstitial infiltrates are evident suspicious for pulmonary edema and great ly improved on the right from the previous study. Either more alveolar infiltrate or atelectatic ch anges seen to the heart with in the left lung base. Pleural Spaces: A small left pleural fluid accumulation is again evident. Osseous Structures: Diffuse degenerative thoracic spine changes are again noted. Soft Tissues: An endovascular stent again projects to the right axillary region extending into the m edial right upper arm. IMPRESSION: 1. Persistent mild cardiomegaly with atherosclerotic changes to the aorta and with CHF. The aorta a ppears atherosclerotic. 2. Pulmonary edema with significant improvement of the infiltrates on the right. There is further infiltrate or atelectatic change again seen to the heart with in the left lower lobe along with a sm all persistent left pleural fluid accumulation. 3. An endovascular stent is again seen to project in the right axilla and medial right upper arm. Physician Cyndie Date Time Electronically viewed and signed by Physician Cyndie on 11/04/2016 09:27 /
--- NOTE | 2016-11-04 10:11 | RADRPT ---
Echocardiogram Report Patient Name: RELL OBANDO Gender: Male Date: 1945 Study Date: 04-Nov-2016 Bulb Tester: Nirmal Bernstein [facility]UST Location: [id number] Ref. Physician: KAMRYN AYALA Quality: Technically Difficult Study Procedures: Transthoracic echocardiogram with complete 2D, M-Mode, and doppler examination. Indications: Congestive Heart Failure. 2D/M Mode Doppler Measurement Value Normal Ranges Measurement Value Normal Ranges LVIDd 2D 5.3 3.5 - 5.6 cm AV Peak Gene 1.3 m/sec LVIDs 2D 4.5 2.1 - 4.1 cm AV Peak PG 6.5 mmHg LVPWd 2D 1.1 0.6 - 1.1 cm LVOT Peak Gene 1.0 m/sec IVSd 2D 1.1 0.6 - 1.1 cm LVOT Peak PG 3.9 mmHg AoR Diam 2D 2.6 2.0 - 3.7 cm MV E Peak Gene 1.2 m/sec EDV 2D 137.6 cm3 MV A Peak Gene 0.7 m/sec ESV 2D 89.7 cm3 MV E/A 1.6 LA Dimen 2D 3.6 2.3 - 4.0 cm MV Decel Time 185 msec MV Decel Milam 7 MV E/A 1.6 Findings Left Ventricle: Normal left ventricular cavity size. Normal left ventricular wall thickness. Mild left ventricular systolic dysfunction. Ejection fraction is visually estimated at 4550 %. Tissue Doppler/Mitral Doppler indices are consistent with pseudonormalization with mildly elevated left atrial pressure (Stage II diastolic dysfunction). These segments of the LV are hypokinetic inferolateral base, Lateral apex, Lateral mid segment and Lateral base. Right Ventricle: Normal right ventricular size. Normal right ventricular systolic function. Left Atrium: There is mild enlargement of left atrium. Right Atrium: The right atrium is normal in size. Mitral Valve: Mitral valve leaflets appear mildly thickened. Moderate mitral valve regurgitation. Aortic Valve: No significant aortic stenosis or insufficiency. Aortic cusps appear mildly calcified. Tricuspid Valve: Normal appearance of the tricuspid valve. Unable to obtain RVSP due to minimal presence of tricuspid regurgitation. There is trace tricuspid regurgitation. Pulmonic Valve: Pulmonic valve not well visualized. Pericardium: Normal pericardium with no significant pericardial effusion. Left pleural effusion seen. Aorta: Normal aortic root. IVC: Normal size and normal respiratory collapse consistent with normal right atrial pressure. Conclusions Technically Difficult Study. Normal left ventricular cavity size. Normal left ventricular wall thickness. Mild left ventricular systolic dysfunction. Ejection fraction is visually estimated at 45-50 %. Tissue Doppler/Mitral Doppler indices are consistent with pseudonormalization with mildly elevated left atrial pressure (Stage II diastolic dysfunction). These segments of the LV are hypokinetic infero-lateral base. , Lateral apex, Lateral mid segment and Lateral base. Normal right ventricular size. Normal right ventricular systolic function. No significant aortic stenosis or insufficiency. Aortic cusps appear mildly calcified. Normal size and normal respiratory collapse consistent with normal right atrial pressure. No Vegetation, masses, or thrombi seen. Electronically Signed By: Christopher Perez 04-Nov-2016 10:10:59 -0800 Patient Name: RELL OBANDO Study Date: 04-Nov-[id number]
[2016-11-04 11:11] LABS: CHOL/HDL RATIO 3.1 RATIO
[2016-11-04] MEDS: CEFTRIAXONE 1 GM/NS 50 ML IVPB SCH (14:13)
--- NOTE | 2016-11-04 15:04 | PN ---
DATE: 11/04/2016 REASON FOR FOLLOWUP: Shortness of breath. SUBJECTIVE: The patient remains stable following admission and hemodialysis. He is pending further hemodialysis this afternoon. PHYSICAL EXAMINATION: VITAL SIGNS: Temperature 98, pulse 80, blood pressure 143/65, O2 saturation 96% on 2 L nasal cannul a. NECK: Supple. No JVD or lymphadenopathy. CARDIAC: S1, S2, no added sounds or murmurs. CHEST: Diminished air entry bilaterally. ABDOMEN: Soft, nontender. No guarding or rebound. EXTREMITIES: No cyanosis, clubbing. He has 1+ edema left upper extremity. LABORATORY DATA: White count 4.1, hemoglobin 8.4, platelets of 126. BUN 46, creatinine 8.83. IMAGING: Chest x-ray performed shows ongoing congestive cardiac failure, improved right-sided infil trates and/or edema. IMPRESSION AND PLAN: 1. Resolving congestive cardiac failure. 2. End-stage renal failure on hemodialysis. 3. Status post hypoxemic respiratory failure secondary to volume overload secondary to above. 4. History of hypertension. The patient should continue with hemodialysis and volume removal as to lerated. 5. Continue supplemental O2 . 6. Deep venous thrombosis and gastrointestinal prophylaxis. 7. Encourage out of bed as tolerated. Dictated By: MUKUND MAGANA/RAYA Conf#: [id number] DID#: [id number]
[2016-11-04] MEDS: ATORVASTATIN 40 MG TAB PO SCH (20:52)
[2016-11-04] MEDS: DOCUSATE SODIUM 100 MG CAP PO SCH (20:52)
--- NOTE | 2016-11-04 22:04 | CONS ---
Date/Time of Note Date/Time of Note DATE: 11/04/16 TIME: 21:59 Assessment/Plan Assessment/Plan Chief Complaint/Hosp Course ASSESSMENT: 1. Pulmonary edema cannot rule out right lung infectious process. 2. Hypertensive crisis. 3. 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 4. Hyperlipidemia. 5. Gout. 6. Coronary artery disease multiple coronary interventions last catheter 09/02 occluded circumflex otherwise treated medically. pt with CABG evaluation by Dr. Draper, [facility] but felt that he was high risk with limited benefit 7. Ischemic cardiopathy ejection fraction 45% on most recent echo 10/2016 PLAN: 1. cont iHD for fluid mgmt 2. Continue hydralazine, losartan, carvedilol, amlodipine and isosorbide. titrate as need goal sbp < 140/90 3. cont tele monitoring 4. bipap as needed 5. abx for possible pna Problems: Consultation Date/Type/Reason Admit Date/Time Nov 03, 2016 at 08:52 Hx of Present Illness sob improved. still on o2. no cp. bp elevated. Constitutional: no complaints (... feels improved... less SOB, albeit still w coughj... no sp tho) Eyes: no complaints Psychological: no complaints Social History Smoking Status: Never smoker Exam/Review of Systems Vital Signs Vitals Vital Signs Date Time Temp Pulse Resp B/P Pulse Ox O2 Delivery O2 Flow Rate FiO2 11/04/16 20:32 75 11/04/16 18:30 18 11/04/16 15:54 98.2 185/88 100 11/04/16 14:40 4.0 11/04/16 09:01 Nasal Cannula 11/03/16 23:51 60 Intake and Output 11/03/16 11/03/16 11/04/16 15:00 23:00 07:00 Intake Total 400 ml Output Total 1213 ml Balance -813 ml Exam HEENT; positive JVD, positive HJR, carotids 2 over 4+ without bruits. Chest: Diffuse rales and rhonchi . Cardiac: S4, S1, S2 with paradoxical splitting, 1/6 systolic ejection murmur, no rub click or diastolic murmur noted. Abdominal: Bowel sounds positive, soft nontender, no abdominal bruit noted, no hepatosplenomegaly. Extremities: No cyanosis, clubbing, trace to 1+ edema bilaterally. Negative Homans sign or palpable cords. Shunt and left arm Pulses: 2/4 pulses diffusely no bruits noted. Results Result Diagram: 11/04/1670411/04/16704 Results 24 hrs Laboratory Tests Test 11/03/16 23:50 11/04/16 07:05 Creatine Kinase 85 Creatine Kinase Index 0.6 Creatinine Kinase MB (Mass) 0.55 Troponin I 0.116 0.114 Alanine Aminotransferase (ALT/SGPT) 28 Albumin 3.3 Albumin/Globulin Ratio 1.17 Alkaline Phosphatase 119 Anion Gap 17 H Aspartate Amino Transf (AST/SGOT) 25 Basophils # 0.0 Basophils % 0.7 Blood Morphology Comment Blood Urea Nitrogen 46 H Calcium Level 9.0 Carbon Dioxide Level 32 H Chloride Level 97 Cholesterol Level 99 L Cholesterol/HDL Ratio 3.1 Creatinine 8.83 H Direct Bilirubin 0.00 Eosinophils # 0.1 Eosinophils % 2.7 Globulin 2.80 Glucose Level 73 HDL Cholesterol 31 Hematocrit 26.2 L Hemoglobin 8.4 L Indirect Bilirubin 0.2 LDL Cholesterol, Calculated 27 Lymphocytes # 1.1 Lymphocytes % 26.4 Magnesium Level 2.0 Mean Corpuscular Hemoglobin 28.1 L Mean Corpuscular Hemoglobin Concent 32.1 Mean Corpuscular Volume 87.6 Mean Platelet Volume 8.1 Monocytes # 0.2 L Monocytes % 6.0 Neutrophils # 2.6 Neutrophils % 64.2 Nucleated Red Blood Cells # 0.0 Nucleated Red Blood Cells % 0.0 Phosphorus Level 4.4 Platelet Count 126 #L Potassium Level 4.4 Red Blood Count 2.99 L Red Cell Distribution Width 20.3 H Sodium Level 142 Total Bilirubin 0.2 Total Protein 6.1 Triglycerides Level 203 H White Blood Count 4.1 #L Medications Medications Current Medications Allopurinol (Zyloprim) 100 mg DAILY PO Last administered on 11/04/16 08:44; Admin Dose 100 MG; Start 11/03/16 at 12:00 Amlodipine Besylate (Norvasc) 5 mg DAILY PO Last administered on 11/03/16 11: 56; Admin Dose 5 MG; Start 11/03/16 at 11:00 Aspirin (Aspirin) 81 mg DAILY PO Last administered on 11/04/16 08:41; Admin Dose 81 MG; Start 11/04/16 at 09:00 Atorvastatin Calcium (Lipitor) 40 mg DAILY@21 PO Last administered on 20:52; Admin Dose 40 MG; Start 11/03/16 at 21:00 Carvedilol (Coreg) 12.5 mg BID PO Last administered on 11/04/16 20:53; Admin Dose 12.5 MG; Start 11/03/16 at 11:00 Clopidogrel Bisulfate (plaVIX) 75 mg DAILY PO Last administered on 11/04/16 08 :42; Admin Dose 75 MG; Start 11/03/16 at 11:00 Docusate Sodium (Colace) 300 mg HS PO Last administered on 11/04/16 20:52; Admin Dose 300 MG; Start 11/03/16 at 21:00 Hydralazine HCl (Apresoline) 50 mg BID PO Last administered on 11/04/16 20:51 ; Admin Dose 50 MG; Start 11/03/16 at 21:00 Acetaminophen/ Hydrocodone Bitart ([place] (5/325)) 1 tab Q6H PRN PO PAIN LEVEL 4 -7; Start 11/03/16 at 11:00 Isosorbide Mononitrate (Imdur) 30 mg DAILY PO ; Start 11/04/16 at 09:00 Losartan Potassium (Cozaar) 50 mg BID PO Last administered on 11/04/16 20:52; Admin Dose 50 MG; Start 11/03/16 at 21:00 Ropinirole HCl (Requip) 0.5 mg TID PO Last administered on 11/04/16 20:53; Admin Dose 0.5 MG; Start 11/03/16 at 13:00 Zolpidem Tartrate (Ambien) 5 mg HS PRN PO INSOMNIA; Start 11/03/16 at 11:00 Alprazolam (Xanax) 0.25 mg BID PO Last administered on 11/04/16 20:52; Admin Dose 0.25 MG; Start 11/03/16 at 21:00 Ondansetron HCl (Zofran Tab) 4 mg Q6H PRN PO NAUSEA AND/OR VOMITING; Start at 11:00 Nitroglycerin (Nitroglycerin (Sl Tab) 0.4 Mg) 1 tab Q5M PRN SL CHEST PAIN; Start 11/03/16 at 11:00 Acetaminophen (Tylenol Tab) 650 mg Q6H PRN PO PAIN LEVEL 1-3 OR FEVER; Start at 11:00 Pantoprazole (Protonix Tab) 40 mg DAILY@06 PO Last administered on 11/04/16 05 :41; Admin Dose 40 MG; Start 11/04/16 at 06:00 Oxycodone HCl (Roxicodone) 5 mg Q8H PRN PO PAIN; Start 11/03/16 at 14:00 Azithromycin 250 mg 250 mg DAILY PO Last administered on 11/04/16 08:43; Admin Dose 250 MG; Start 11/04/16 at 09:00 Ceftriaxone Sodium (Rocephin) 50 ml @ 100 mls/hr Q24H IVPB Last administered on 11/04/16 14:13; Admin Dose 100 MLS/HR; Start 11/03/16 at 14:00 Procedures Procedures telel reviewed nsr, no events cxr report reviewed SUSANA VASQUEZ Nov 04, 2016 22:04
[2016-11-05] VITALS (19 sets, daily range): BP systolic 132–168; BP diastolic 65–76; PULSE 67–92; RESP 17–20
[2016-11-05] MEDS: PANTOPRAZOLE (EC) 40 MG TAB PO SCH (05:54)
[2016-11-05 06:29] LABS: BASOPHILS % 0.7 % (0.0-2.0); EOSINOPHILS # 0.3 10^3/ul (0.0-0.5); HEMOGLOBIN 8.6 g/dl (14.0-18.0); LYMPHOCYTES # 1.1 10^3/ul (0.8-2.9); LYMPHOCYTES % 25.4 % (15.0-51.0); MEAN CORPUSCULAR HEMOGLOBIN 28.1 pg (29.0-33.0); MEAN CORPUSCULAR VOLUME 87.8 fl (82.0-101.0); MEAN PLATELET VOLUME 7.8 fl (7.4-10.4); MONOCYTE # 0.3 10^3/ul (0.3-0.9); MONOCYTES % 6.9 % (0.0-11.0); NEUTROPHIL # 2.6 10^3/ul (1.6-7.5); PLATELET COUNT 138 10^3/UL (140-440); RED BLOOD COUNT 3.07 10^6/ul (4.70-6.10); UNCORRECTED WBC 4.3 10^3/ul (4.8-10.8); WHITE BLOOD COUNT 4.3 10^3/ul (4.8-10.8)
[2016-11-05 06:30] LABS: ALBUMIN 3.2 g/dl (3.3-4.9)
[2016-11-05 06:31] LABS: POTASSIUM 4.3 mmol/L (3.5-5.1)
[2016-11-05 06:33] LABS: ALBUMIN/GLOBULIN RATIO 1.14; BILIRUBIN,INDIRECT 0.1 mg/dl (0-1.1); BILIRUBIN,TOTAL 0.1 mg/dl (0.2-1.3); CREATININE 7.54 mg/dl (0.61-1.24)
[2016-11-05 06:34] LABS: CALCIUM 9.2 mg/dl (8.4-10.2)
[2016-11-05 06:37] LABS: CONDITION 1; LH ANALYZER COMMENTS 1
--- NOTE | 2016-11-05 07:35 | CONS ---
Date/Time of Note Date/Time of Note DATE: 11/05/16 TIME: 07:32 Assessment/Plan Assessment/Plan Problems: (1) ESRD (end stage renal disease) on dialysis Comment: improving w UF... for repeat HD today (2) Hypertensive emergency Status: Acute Comment: resolved... may need to back off some, as BP "low" for him, tip as increase the UF w HD (3) Congestive heart failure Status: Acute Comment: resolving w HD Qualifiers: Congestive heart failure type: unspecified congestive heart failure type Congestive heart failure chronicity: acute Qualified Code: I50.9 - Acute congestive heart failure, unspecified congestive heart failure type Consultation Date/Type/Reason Admit Date/Time Nov 03, 2016 at 08:52 Initial Consult Date 11/03/16 Type of Consultation: nephrology 24 HR Interval Summary Free Text/Dictation feeling better... less SOB... ghad BM today, but still quite fatigued w movement Exam/Review of Systems Vital Signs Vitals Vital Signs Date Time Temp Pulse Resp B/P Pulse Ox O2 Delivery O2 Flow Rate FiO2 11/05/16 05:49 4.0 11/05/16 04:30 68 11/05/16 04:00 98.2 19 132/72 100 Nasal Cannula 11/03/16 23:51 60 Intake and Output 11/04/16 11/04/16 11/05/16 15:00 23:00 07:00 Intake Total 1220 ml 120 ml Output Total 2300 ml Balance -1080 ml 120 ml Exam Constitutional: alert, oriented Neck: supple Respiratory: clear to auscultation Cardiovascular: regular rate and rhythm Extremities: normal pulses (intact LUE AVF) Results Result Diagram: 11/05/16 0550 11/05/16 0550 Results 24 hrs Laboratory Tests Test 11/05/16 05:50 Alanine Aminotransferase (ALT/SGPT) 32 Albumin 3.2 L Albumin/Globulin Ratio 1.14 Alkaline Phosphatase 128 H Anion Gap 17 H Aspartate Amino Transf (AST/SGOT) 29 Basophils # 0.0 Basophils % 0.7 Blood Morphology Comment Blood Urea Nitrogen 40 H Calcium Level 9.2 Carbon Dioxide Level 34 H Chloride Level 95 L Creatinine 7.54 H Direct Bilirubin 0.00 Eosinophils # 0.3 Eosinophils % 8.0 H Globulin 2.80 Glucose Level 101 Hematocrit 27.0 L Hemoglobin 8.6 L Indirect Bilirubin 0.1 Lymphocytes # 1.1 Lymphocytes % 25.4 Mean Corpuscular Hemoglobin 28.1 L Mean Corpuscular Hemoglobin Concent 32.0 Mean Corpuscular Volume 87.8 Mean Platelet Volume 7.8 Monocytes # 0.3 Monocytes % 6.9 Neutrophils # 2.6 Neutrophils % 59.0 Nucleated Red Blood Cells # 0.0 Nucleated Red Blood Cells % 0.0 Platelet Count 138 L Potassium Level 4.3 Red Blood Count 3.07 L Red Cell Distribution Width 20.0 H Sodium Level 142 Total Bilirubin 0.1 L Total Protein 6.0 L White Blood Count 4.3 L Medications Medications Current Medications Allopurinol (Zyloprim) 100 mg DAILY PO Last administered on 11/04/16 08:44; Admin Dose 100 MG; Start 11/03/16 at 12:00 Amlodipine Besylate (Norvasc) 5 mg DAILY PO Last administered on 11/03/16 11: 56; Admin Dose 5 MG; Start 11/03/16 at 11:00 Aspirin (Aspirin) 81 mg DAILY PO Last administered on 11/04/16 08:41; Admin Dose 81 MG; Start 11/04/16 at 09:00 Atorvastatin Calcium (Lipitor) 40 mg DAILY@21 PO Last administered on 20:52; Admin Dose 40 MG; Start 11/03/16 at 21:00 Carvedilol (Coreg) 12.5 mg BID PO Last administered on 11/04/16 20:53; Admin Dose 12.5 MG; Start 11/03/16 at 11:00 Clopidogrel Bisulfate (plaVIX) 75 mg DAILY PO Last administered on 11/04/16 08 :42; Admin Dose 75 MG; Start 11/03/16 at 11:00 Docusate Sodium (Colace) 300 mg HS PO Last administered on 11/04/16 20:52; Admin Dose 300 MG; Start 11/03/16 at 21:00 Hydralazine HCl (Apresoline) 50 mg BID PO Last administered on 11/04/16 20:51 ; Admin Dose 50 MG; Start 11/03/16 at 21:00 Acetaminophen/ Hydrocodone Bitart ([place] (5/325)) 1 tab Q6H PRN PO PAIN LEVEL 4 -7; Start 11/03/16 at 11:00 Isosorbide Mononitrate (Imdur) 30 mg DAILY PO ; Start 11/04/16 at 09:00 Losartan Potassium (Cozaar) 50 mg BID PO Last administered on 11/04/16 20:52; Admin Dose 50 MG; Start 11/03/16 at 21:00 Ropinirole HCl (Requip) 0.5 mg TID PO Last administered on 11/04/16 20:53; Admin Dose 0.5 MG; Start 11/03/16 at 13:00 Zolpidem Tartrate (Ambien) 5 mg HS PRN PO INSOMNIA; Start 11/03/16 at 11:00 Alprazolam (Xanax) 0.25 mg BID PO Last administered on 11/04/16 20:52; Admin Dose 0.25 MG; Start 11/03/16 at 21:00 Ondansetron HCl (Zofran Tab) 4 mg Q6H PRN PO NAUSEA AND/OR VOMITING; Start at 11:00 Nitroglycerin (Nitroglycerin (Sl Tab) 0.4 Mg) 1 tab Q5M PRN SL CHEST PAIN; Start 11/03/16 at 11:00 Acetaminophen (Tylenol Tab) 650 mg Q6H PRN PO PAIN LEVEL 1-3 OR FEVER; Start at 11:00 Pantoprazole (Protonix Tab) 40 mg DAILY@06 PO Last administered on 11/05/16 05 :54; Admin Dose 40 MG; Start 11/04/16 at 06:00 Oxycodone HCl (Roxicodone) 5 mg Q8H PRN PO PAIN; Start 11/03/16 at 14:00 Azithromycin 250 mg 250 mg DAILY PO Last administered on 11/04/16 08:43; Admin Dose 250 MG; Start 11/04/16 at 09:00 Ceftriaxone Sodium (Rocephin) 50 ml @ 100 mls/hr Q24H IVPB Last administered on 11/04/16 14:13; Admin Dose 100 MLS/HR; Start 11/03/16 at 14:00 POP BOYCE MD Nov 05, 2016 07:35
--- NOTE | 2016-11-05 07:40 | PQ ---
Date/Time of Note Date/Time of Note DATE: 11/05/16 TIME: 07:35 Physician Query Documentation Clarification Dear Dr. Johnson, The medical record reflects a documentation of: progress note - I50.9 - Acute congestive heart failure, unspecified congestive heart failure type Echo - Normal left ventricular wall thickness. Mild left ventricular systolic dysfunction. Ejection fraction is visually estimated at 45-50 %. Tissue Doppler /Mitral Doppler indices are consistent with pseudonormalization with mildly elevated left atrial pressure (Stage II diastolic dysfunction) BNP = 50788 Please clarify the type of CHF. To facilitate accurate and complete coding, please jessica ( x ) the suspected diagnosis that apply: ( ) Acute Systolic (Reduced EF) Heart Failure ( ICD10 I50.21 ) ( ) Acute Diastolic (Preserved EF) Heart Failure ( ICD10 I50.31 ) ( ) Acute Combined Systolic & Diastolic Heart Failure ( ICD10 I50.41 ) ( ) Clinically undetermined Please provide your response by clicking edit document, making your choice ( x ), click ok and finally click sign. You may also document your response on your progress notes. Thank you for your time. Lyndon Obregon RN, BSN, CCS, CCDS Clinical [employer] Health Information Management, CDI and Coding Services [phone] Room # 1525 - [address]~ [id number] LYNDON OBREGON Nov 05, 2016 07:40
--- NOTE | 2016-11-05 08:17 | CONS ---
Date/Time of Note Date/Time of Note DATE: 11/05/16 TIME: 08:15 Assessment/Plan Assessment/Plan Chief Complaint/Hosp Course 1) asymmetrical CHF doubt pt has pneumonia continue with diuresis and repeat CXR in a.m. will start ceftriaxone/azithro but if CXR shows good improvement will likely d/ c them tomorrow send sputum cx 11/04 - low grade fever last night with chill will check rapid Flu Ag continue with ceftriaxone/azithro at this time await repeat CXR 11/05 - CXR was much improved, doubt routine pneumonia d/c ceftriaxone, continue with azithromycin flu Ag were negative will order chest CT to be done after HD today 2) asymmetrical calf swelling will order LE venous dopplers 11/04 - venous dopplers were negative 3) CAD 4) ESRD with 2 failed kidney Tx Problems: Consultation Date/Type/Reason Admit Date/Time Nov 03, 2016 at 08:52 Initial Consult Date 11/03/16 Type of Consultation: ID 24 HR Interval Summary Free Text/Dictation breathing is better cough is less but unable to take deep breath without coughing no N, V, D Exam/Review of Systems Vital Signs Vitals Vital Signs Date Time Temp Pulse Resp B/P Pulse Ox O2 Delivery O2 Flow Rate FiO2 11/05/16 07:46 98.5 67 20 155/69 100 11/05/16 05:49 4.0 11/05/16 04:00 Nasal Cannula 11/03/16 23:51 60 Intake and Output 11/04/16 11/04/16 11/05/16 15:00 23:00 07:00 Intake Total 1220 ml 120 ml Output Total 2300 ml Balance -1080 ml 120 ml Exam Constitutional: alert, oriented Head: normocephalic Eyes: nl conjunctiva ENMT: mucosa pink and moist Respiratory: clear to auscultation Cardiovascular: regular rate and rhythm Gastrointestinal: non-tender, soft Results Result Diagram: 11/05/16 0550 11/05/16 0550 Results 24 hrs Laboratory Tests Test 11/05/16 05:50 Alanine Aminotransferase (ALT/SGPT) 32 Albumin 3.2 L Albumin/Globulin Ratio 1.14 Alkaline Phosphatase 128 H Anion Gap 17 H Aspartate Amino Transf (AST/SGOT) 29 Basophils # 0.0 Basophils % 0.7 Blood Morphology Comment Blood Urea Nitrogen 40 H Calcium Level 9.2 Carbon Dioxide Level 34 H Chloride Level 95 L Creatinine 7.54 H Direct Bilirubin 0.00 Eosinophils # 0.3 Eosinophils % 8.0 H Globulin 2.80 Glucose Level 101 Hematocrit 27.0 L Hemoglobin 8.6 L Indirect Bilirubin 0.1 Lymphocytes # 1.1 Lymphocytes % 25.4 Mean Corpuscular Hemoglobin 28.1 L Mean Corpuscular Hemoglobin Concent 32.0 Mean Corpuscular Volume 87.8 Mean Platelet Volume 7.8 Monocytes # 0.3 Monocytes % 6.9 Neutrophils # 2.6 Neutrophils % 59.0 Nucleated Red Blood Cells # 0.0 Nucleated Red Blood Cells % 0.0 Platelet Count 138 L Potassium Level 4.3 Red Blood Count 3.07 L Red Cell Distribution Width 20.0 H Sodium Level 142 Total Bilirubin 0.1 L Total Protein 6.0 L White Blood Count 4.3 L Medications Medications Current Medications Allopurinol (Zyloprim) 100 mg DAILY PO Last administered on 11/04/16 08:44; Admin Dose 100 MG; Start 11/03/16 at 12:00 Amlodipine Besylate (Norvasc) 5 mg DAILY PO Last administered on 11/03/16 11: 56; Admin Dose 5 MG; Start 11/03/16 at 11:00 Aspirin (Aspirin) 81 mg DAILY PO Last administered on 11/04/16 08:41; Admin Dose 81 MG; Start 11/04/16 at 09:00 Atorvastatin Calcium (Lipitor) 40 mg DAILY@21 PO Last administered on 20:52; Admin Dose 40 MG; Start 11/03/16 at 21:00 Carvedilol (Coreg) 12.5 mg BID PO Last administered on 11/04/16 20:53; Admin Dose 12.5 MG; Start 11/03/16 at 11:00 Clopidogrel Bisulfate (plaVIX) 75 mg DAILY PO Last administered on 11/04/16 08 :42; Admin Dose 75 MG; Start 11/03/16 at 11:00 Docusate Sodium (Colace) 300 mg HS PO Last administered on 11/04/16 20:52; Admin Dose 300 MG; Start 11/03/16 at 21:00 Hydralazine HCl (Apresoline) 50 mg BID PO Last administered on 11/04/16 20:51 ; Admin Dose 50 MG; Start 11/03/16 at 21:00 Acetaminophen/ Hydrocodone Bitart ([place] (5/325)) 1 tab Q6H PRN PO PAIN LEVEL 4 -7; Start 11/03/16 at 11:00 Isosorbide Mononitrate (Imdur) 30 mg DAILY PO ; Start 11/04/16 at 09:00 Losartan Potassium (Cozaar) 50 mg BID PO Last administered on 11/04/16 20:52; Admin Dose 50 MG; Start 11/03/16 at 21:00 Ropinirole HCl (Requip) 0.5 mg TID PO Last administered on 11/04/16 20:53; Admin Dose 0.5 MG; Start 11/03/16 at 13:00 Zolpidem Tartrate (Ambien) 5 mg HS PRN PO INSOMNIA; Start 11/03/16 at 11:00 Alprazolam (Xanax) 0.25 mg BID PO Last administered on 11/04/16 20:52; Admin Dose 0.25 MG; Start 11/03/16 at 21:00 Ondansetron HCl (Zofran Tab) 4 mg Q6H PRN PO NAUSEA AND/OR VOMITING; Start at 11:00 Nitroglycerin (Nitroglycerin (Sl Tab) 0.4 Mg) 1 tab Q5M PRN SL CHEST PAIN; Start 11/03/16 at 11:00 Acetaminophen (Tylenol Tab) 650 mg Q6H PRN PO PAIN LEVEL 1-3 OR FEVER; Start at 11:00 Pantoprazole (Protonix Tab) 40 mg DAILY@06 PO Last administered on 11/05/16 05 :54; Admin Dose 40 MG; Start 11/04/16 at 06:00 Oxycodone HCl (Roxicodone) 5 mg Q8H PRN PO PAIN; Start 11/03/16 at 14:00 Azithromycin 250 mg 250 mg DAILY PO Last administered on 11/04/16 08:43; Admin Dose 250 MG; Start 11/04/16 at 09:00 Ceftriaxone Sodium (Rocephin) 50 ml @ 100 mls/hr Q24H IVPB Last administered on 11/04/16 14:13; Admin Dose 100 MLS/HR; Start 11/03/16 at 14:00 Epoetin [place] (Epogen (Esrd)) 10,000 units [email or web address]@[email or web address] ; Start 11/05/16 at 17:00 GILA QUEZADA MD Nov 05, 2016 08:17
[2016-11-05] MEDS: AMLODIPINE 5 MG TAB PO SCH (09:00)
[2016-11-05] MEDS: ALPRAZOLAM 0.25 MG TAB PO SCH ×2 (09:00→21:00)
[2016-11-05] MEDS: ISOSORBIDE MONONITRATE(SR)30 MG TAB PO SCH (09:00)
[2016-11-05] MEDS: LOSARTAN 50 MG TAB PO SCH ×2 (09:00→21:00)
[2016-11-05] MEDS: ASPIRIN 81 MG TAB PO SCH (09:13)
[2016-11-05] MEDS: ROPINIROLE 0.25 MG TAB PO SCH ×3 (09:15→21:29)
[2016-11-05] MEDS: CLOPIDOGREL 75 MG TAB PO SCH (09:15)
[2016-11-05] MEDS: AZITHROMYCIN 250 MG TAB PO SCH (09:16)
[2016-11-05] MEDS: ALLOPURINOL 100 MG TAB PO SCH (09:16)
--- NOTE | 2016-11-05 14:34 | CONS ---
Date/Time of Note Date/Time of Note DATE: 11/05/16 TIME: 14:29 Consult Date/Type/Reason Admit Date/Time Nov 03, 2016 at 08:52 Initial Consult Date 11/03/16 Type of Consultation: pulmonary Subjective Patient having hemodialysis morning Still has occasional cough but breathing has overall improved Remains hemodynamically stable Objective Vital Signs Date Time Temp Pulse Resp B/P Pulse Ox O2 Delivery O2 Flow Rate FiO2 11/05/16 14:15 70 11/05/16 11:21 98.2 20 142/67 96 11/05/16 10:48 Nasal Cannula 4.0 11/03/16 23:51 60 Intake and Output 11/04/16 11/04/16 11/05/16 14:59 22:59 06:59 Intake Total 1220 ml 120 ml Output Total 2300 ml Balance -1080 ml 120 ml PHYSICAL EXAMINATION: VITAL SIGNS: As above NECK: Supple. No JVD or lymphadenopathy. CARDIAC: S1, S2, no added sounds or murmurs. CHEST: Diminished air entry bilaterally. ABDOMEN: Soft, nontender. No guarding or rebound. EXTREMITIES: No cyanosis, clubbing. He has 1+ edema left upper extremity. Results/Medications Result Diagram: 11/05/16 0550 11/05/16 0550 Results 24 hrs Laboratory Tests Test 11/05/16 05:50 Alanine Aminotransferase (ALT/SGPT) 32 Albumin 3.2 L Albumin/Globulin Ratio 1.14 Alkaline Phosphatase 128 H Anion Gap 17 H Aspartate Amino Transf (AST/SGOT) 29 Basophils # 0.0 Basophils % 0.7 Blood Morphology Comment Blood Urea Nitrogen 40 H Calcium Level 9.2 Carbon Dioxide Level 34 H Chloride Level 95 L Creatinine 7.54 H Direct Bilirubin 0.00 Eosinophils # 0.3 Eosinophils % 8.0 H Globulin 2.80 Glucose Level 101 Hematocrit 27.0 L Hemoglobin 8.6 L Indirect Bilirubin 0.1 Lymphocytes # 1.1 Lymphocytes % 25.4 Mean Corpuscular Hemoglobin 28.1 L Mean Corpuscular Hemoglobin Concent 32.0 Mean Corpuscular Volume 87.8 Mean Platelet Volume 7.8 Monocytes # 0.3 Monocytes % 6.9 Neutrophils # 2.6 Neutrophils % 59.0 Nucleated Red Blood Cells # 0.0 Nucleated Red Blood Cells % 0.0 Platelet Count 138 L Potassium Level 4.3 Red Blood Count 3.07 L Red Cell Distribution Width 20.0 H Sodium Level 142 Total Bilirubin 0.1 L Total Protein 6.0 L White Blood Count 4.3 L Medications Current Medications Allopurinol (Zyloprim) 100 mg DAILY PO Last administered on 11/05/16 09:16; Admin Dose 100 MG; Start 11/03/16 at 12:00 Amlodipine Besylate (Norvasc) 5 mg DAILY PO Last administered on 11/03/16 11: 56; Admin Dose 5 MG; Start 11/03/16 at 11:00 Aspirin (Aspirin) 81 mg DAILY PO Last administered on 11/05/16 09:13; Admin Dose 81 MG; Start 11/04/16 at 09:00 Atorvastatin Calcium (Lipitor) 40 mg DAILY@21 PO Last administered on 20:52; Admin Dose 40 MG; Start 11/03/16 at 21:00 Carvedilol (Coreg) 12.5 mg BID PO Last administered on 11/04/16 20:53; Admin Dose 12.5 MG; Start 11/03/16 at 11:00 Clopidogrel Bisulfate (plaVIX) 75 mg DAILY PO Last administered on 11/05/16 09 :15; Admin Dose 75 MG; Start 11/03/16 at 11:00 Docusate Sodium (Colace) 300 mg HS PO Last administered on 11/04/16 20:52; Admin Dose 300 MG; Start 11/03/16 at 21:00 Acetaminophen/ Hydrocodone Bitart ([place] (5/325)) 1 tab Q6H PRN PO PAIN LEVEL 4 -7; Start 11/03/16 at 11:00 Isosorbide Mononitrate (Imdur) 30 mg DAILY PO ; Start 11/04/16 at 09:00 Losartan Potassium (Cozaar) 50 mg BID PO Last administered on 11/04/16 20:52; Admin Dose 50 MG; Start 11/03/16 at 21:00 Ropinirole HCl (Requip) 0.5 mg TID PO Last administered on 11/05/16 09:15; Admin Dose 0.5 MG; Start 11/03/16 at 13:00 Zolpidem Tartrate (Ambien) 5 mg HS PRN PO INSOMNIA; Start 11/03/16 at 11:00 Alprazolam (Xanax) 0.25 mg BID PO Last administered on 11/04/16 20:52; Admin Dose 0.25 MG; Start 11/03/16 at 21:00 Ondansetron HCl (Zofran Tab) 4 mg Q6H PRN PO NAUSEA AND/OR VOMITING; Start at 11:00 Nitroglycerin (Nitroglycerin (Sl Tab) 0.4 Mg) 1 tab Q5M PRN SL CHEST PAIN; Start 11/03/16 at 11:00 Acetaminophen (Tylenol Tab) 650 mg Q6H PRN PO PAIN LEVEL 1-3 OR FEVER; Start at 11:00 Pantoprazole (Protonix Tab) 40 mg DAILY@06 PO Last administered on 11/05/16 05 :54; Admin Dose 40 MG; Start 11/04/16 at 06:00 Oxycodone HCl (Roxicodone) 5 mg Q8H PRN PO PAIN; Start 11/03/16 at 14:00 Azithromycin (Zithromax) 250 mg DAILY PO Last administered on 11/05/16 09:16; Admin Dose 250 MG; Start 11/04/16 at 09:00 Epoetin [place] (Epogen (Esrd)) 10,000 units MoWeFr@17 [place] ; Start 11/05/16 at 17:00 Hydralazine HCl (Apresoline) 50 mg TID PO ; Start 11/05/16 at 09:00 Assessment/Plan Chief Complaint/Hosp Course IMPRESSION AND PLAN: 1. Resolving congestive cardiac failure. 2. End-stage renal failure on hemodialysis. 3. Status post hypoxemic respiratory failure secondary to volume overload secondary to above. 4. History of hypertension. 5. Continue supplemental O2 6. Deep venous thrombosis and gastrointestinal prophylaxis. 7. Encourage out of bed as tolerated. Plan 1. Decrease supplemental oxygen as tolerated 2. Hemodialysis with volume removal 3. Blood pressure control 4. Epogen for chronic anemia 5. DVT and GI prophylaxis Problems: MUKUND URBANO MD, [facility] Nov 05, 2016 14:34
[2016-11-05] MEDS: EPOETIN 10000 UNITS/1 ML INJ (ESRD) SC SCH (17:33)
[2016-11-05] MEDS: DOCUSATE SODIUM 100 MG CAP PO SCH (21:24)
[2016-11-05] MEDS: ATORVASTATIN 40 MG TAB PO SCH (21:24)
--- NOTE | 2016-11-05 21:48 | CONS ---
Date/Time of Note Date/Time of Note DATE: 11/05/16 TIME: 21:37 Assessment/Plan Assessment/Plan Chief Complaint/Hosp Course ASSESSMENT: 1. Pulm edema, likely with component of acute on chronic diastolic+systolic heart failure precipitated by hypertensive crisis. ID following, less likely pna, now off abx. resp status improved with bp control/iHD fluid mgmt . 2. Hypertensive crisis. 3. 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 4. Hyperlipidemia. 5. Gout. 6. CAD- s/p many previous PCI. Last [facility] 08/2015 after NSTEMI. [employer] ostial LCx with L/R-L collaterals. diffusely diseased small branch of D1. patent lad/Diag stents. pt with CABG evaluation by Dr. Draper, [facility] but felt that he was high risk with limited benefit 7. Ischemic cardiopathy ejection fraction 45% on most recent echo 10/2016 PLAN: 1. cont iHD for fluid mgmt 2. Continue hydralazine, losartan, carvedilol, amlodipine and isosorbide. 3. if bp still elevated on non-iHD day can increase meds, however pt hesitant to reach sbp < 140 as he feel it makes him ill 4. wean o2 5. ambulate patient Problems: Consultation Date/Type/Reason Admit Date/Time Nov 03, 2016 at 08:52 Initial Consult Date 11/03/16 Type of Consultation: Cardiology Referring Provider: POP BOYCE MD 24 HR Interval Summary Free Text/Dictation no acute events. pt states breathing improved. denies cp, dizziness, palp, n/v. tele reviewed, no events. nsr. Detailed Summary Eyes: no complaints ENT: no complaints Respiratory: no complaints Cardiovascular: no complaints Gastrointestinal: no complaints Genitourinary: no complaints Exam/Review of Systems Vital Signs Vitals Vital Signs Date Time Temp Pulse Resp B/P Pulse Ox O2 Delivery O2 Flow Rate FiO2 11/05/16 20:25 98.2 73 17 163/72 100 11/05/16 16:19 4.0 36 11/05/16 10:48 Nasal Cannula Intake and Output 11/04/16 11/04/16 11/05/16 15:00 23:00 07:00 Intake Total 1220 ml 120 ml Output Total 2300 ml Balance -1080 ml 120 ml Exam HEENT; positive JVD, positive HJR, carotids 2 over 4+ without bruits. Chest: clear to auscultation Cardiac: nl S1, S2 with paradoxical splitting, 1/6 systolic ejection murmur, no rub click or diastolic murmur noted. Abdominal: Bowel sounds positive, soft nontender, no abdominal bruit noted, no hepatosplenomegaly. Extremities: No cyanosis, clubbing, trace to 1+ edema bilaterally. Negative Homans sign or palpable cords. Shunt and left arm Pulses: 2/4 pulses diffusely no bruits noted. Results Result Diagram: 11/05/16 0550 11/05/16 0550 Results 24 hrs Laboratory Tests Test 11/05/16 05:50 Alanine Aminotransferase (ALT/SGPT) 32 Albumin 3.2 L Albumin/Globulin Ratio 1.14 Alkaline Phosphatase 128 H Anion Gap 17 H Aspartate Amino Transf (AST/SGOT) 29 Basophils # 0.0 Basophils % 0.7 Blood Morphology Comment Blood Urea Nitrogen 40 H Calcium Level 9.2 Carbon Dioxide Level 34 H Chloride Level 95 L Creatinine 7.54 H Direct Bilirubin 0.00 Eosinophils # 0.3 Eosinophils % 8.0 H Globulin 2.80 Glucose Level 101 Hematocrit 27.0 L Hemoglobin 8.6 L Indirect Bilirubin 0.1 Lymphocytes # 1.1 Lymphocytes % 25.4 Mean Corpuscular Hemoglobin 28.1 L Mean Corpuscular Hemoglobin Concent 32.0 Mean Corpuscular Volume 87.8 Mean Platelet Volume 7.8 Monocytes # 0.3 Monocytes % 6.9 Neutrophils # 2.6 Neutrophils % 59.0 Nucleated Red Blood Cells # 0.0 Nucleated Red Blood Cells % 0.0 Platelet Count 138 L Potassium Level 4.3 Red Blood Count 3.07 L Red Cell Distribution Width 20.0 H Sodium Level 142 Total Bilirubin 0.1 L Total Protein 6.0 L White Blood Count 4.3 L Medications Medications Current Medications Allopurinol (Zyloprim) 100 mg DAILY PO Last administered on 11/05/16 09:16; Admin Dose 100 MG; Start 11/03/16 at 12:00 Amlodipine Besylate (Norvasc) 5 mg DAILY PO Last administered on 11/03/16 11: 56; Admin Dose 5 MG; Start 11/03/16 at 11:00 Aspirin (Aspirin) 81 mg DAILY PO Last administered on 11/05/16 09:13; Admin Dose 81 MG; Start 11/04/16 at 09:00 Atorvastatin Calcium (Lipitor) 40 mg DAILY@21 PO Last administered on 21:24; Admin Dose 40 MG; Start 11/03/16 at 21:00 Carvedilol (Coreg) 12.5 mg BID PO Last administered on 11/05/16 21:24; Admin Dose 12.5 MG; Start 11/03/16 at 11:00 Clopidogrel Bisulfate (plaVIX) 75 mg DAILY PO Last administered on 11/05/16 09 :15; Admin Dose 75 MG; Start 11/03/16 at 11:00 Docusate Sodium (Colace) 300 mg HS PO Last administered on 11/05/16 21:24; Admin Dose 300 MG; Start 11/03/16 at 21:00 Acetaminophen/ Hydrocodone Bitart ([place] (5/325)) 1 tab Q6H PRN PO PAIN LEVEL 4 -7; Start 11/03/16 at 11:00 Isosorbide Mononitrate (Imdur) 30 mg DAILY PO ; Start 11/04/16 at 09:00 Losartan Potassium (Cozaar) 50 mg BID PO Last administered on 11/04/16 20:52; Admin Dose 50 MG; Start 11/03/16 at 21:00 Ropinirole HCl (Requip) 0.5 mg TID PO Last administered on 11/05/16 21:29; Admin Dose 0.5 MG; Start 11/03/16 at 13:00 Zolpidem Tartrate (Ambien) 5 mg HS PRN PO INSOMNIA; Start 11/03/16 at 11:00 Alprazolam (Xanax) 0.25 mg BID PO Last administered on 11/04/16 20:52; Admin Dose 0.25 MG; Start 11/03/16 at 21:00 Ondansetron HCl (Zofran Tab) 4 mg Q6H PRN PO NAUSEA AND/OR VOMITING; Start at 11:00 Nitroglycerin (Nitroglycerin (Sl Tab) 0.4 Mg) 1 tab Q5M PRN SL CHEST PAIN; Start 11/03/16 at 11:00 Acetaminophen (Tylenol Tab) 650 mg Q6H PRN PO PAIN LEVEL 1-3 OR FEVER; Start at 11:00 Pantoprazole (Protonix Tab) 40 mg DAILY@06 PO Last administered on 11/05/16 05 :54; Admin Dose 40 MG; Start 11/04/16 at 06:00 Oxycodone HCl (Roxicodone) 5 mg Q8H PRN PO PAIN; Start 11/03/16 at 14:00 Azithromycin (Zithromax) 250 mg DAILY PO Last administered on 11/05/16 09:16; Admin Dose 250 MG; Start 11/04/16 at 09:00 Epoetin Lyle (Epogen (Esrd)) 10,000 units MoWeFr@17 SC Last administered on 17:33; Admin Dose 10,000 UNITS; Start 11/05/16 at 17:00 Hydralazine HCl (Apresoline) 50 mg TID PO Last administered on 11/05/16 21:25 ; Admin Dose 50 MG; Start 11/05/16 at 09:00 Procedures Procedures cxr report reviewed in emr SUSANA VASQUEZ Nov 05, 2016 21:48
[2016-11-05] MEDS ORDERED: ROPINIROLE 0.25 MG TAB PO ONE (23:00)
[2016-11-05] MEDS ORDERED: ROPINIROLE 1 MG TAB PO ONE (23:00)
[2016-11-06] VITALS (12 sets, daily range): BP systolic 121–154; BP diastolic 53–71; PULSE 65–80; RESP 18–20
[2016-11-06] MEDS: ALPRAZOLAM 0.25 MG TAB PO SCH ×3 (00:49→20:39)
[2016-11-06] MEDS: ZOLPIDEM 5 MG TAB PO PRN ×2 (00:53→20:49)
--- NOTE | 2016-11-06 01:18 | RADRPT ---
PROCEDURE: CT Chest without contrast. CLINICAL INDICATION: Persistent cough. TECHNIQUE: CT scan of the chest without contrast was performed on a multidetector high-resolution CT scanner. Coronal and sagittal reformatted images were obtained from the axial source images. The total exam CTDI equals 14.40 mGy and the total exam DLP equals 538.69 mGy-cm. COMPARISON: Plain film chest dated 11/04/2016 FINDINGS: Bilateral mild pleural effusions with dependent atelectasis, and partial collapse of the left lower lobe. Lungs otherwise clear. Cardiomegaly. Mild nonspecific shoddy lymph nodes in the mediastinum. Otherwise, the mediastinum is unremarkable, without evidence for mass or bulky lymphadenopathy. The vascular structures of the mediastinum are normal in course and caliber. Aortic vascular calcifications and coronary artery calcifications ar e present. Nonspecific region of right mid axillary subcutaneous fat inflammatory changes with mild adenopathy. Largest lymph node measures up to about 14 x 9 mm, and is nonspecific. This region extends from th e axilla to about the level the mid chest. The region measures about 10 x 6 x 5 mm. Findings may re present early lymphoma. The subpectoral regions, and supraclavicular regions are all unremarkable. The surrounding chest wa ll is otherwise unremarkable. Imaging obtained through the upper abdomen gallstones, without CT evidence of acute cholecystitis. Consider CT correlation. Splenic artery calcifications. Abdominal aortic calcifications. The surr ounding osseous structures are remarkable for degenerative spondylosis of the spine. No osteolytic or osteoblastic lesion is detected. IMPRESSION: 1. Bilateral small pleural effusions with dependent atelectasis, and partial collapse of the left l ower lobe. 2. Gallstones, and consider ultrasound correlation. 3. Nonspecific region of right mid axillary subcutaneous fat inflammatory changes with mild adenopa thy. 4. Differential considerations include early lymphoma. RPTAT: [facility] Physician Mary Date Time Electronically viewed and signed by Physician Mary on 11/06/2016 01:17 RS/
--- NOTE | 2016-11-06 04:26 | RADRPT ---
Vent Rate: 78 bpm RR Interval: 0 msec KS Interval: 174 msec QRS Duration: 88 msec QT Interval: 398 msec QTC Interval: 453 msec P-R-T [place]: 57 - 25 - 103 degrees Normal sinus rhythm Nonspecific ST and T wave abnormality Abnormal ECG Electronically Signed By: Gian Carrillo [id number]
[2016-11-06] MEDS: PANTOPRAZOLE (EC) 40 MG TAB PO SCH (06:18)
--- NOTE | 2016-11-06 06:51 | RADRPT ---
PROCEDURE: XR Chest. CLINICAL INDICATION: Shortness of breath TECHNIQUE: An AP view of the chest was obtained. COMPARISON: CT chest performed earlier on the same date FINDINGS: There is prominence of the interstitial markings with small bilateral pleural effusions. No focal airspace opacification or pneumothorax is seen. The cardiomediastinal silhouette is mildly enlarg ed . Calcifications are seen within the aortic arch. The osseous structures demonstrate senescent c hanges. IMPRESSION: 1. Findings suggestive of interstitial edema with small bilateral pleural effusions. No significant interval change. 2. Mild cardiomegaly and aortic atherosclerosis. RPTAT: HH .Shasta Cisneros MD, MD Date Time Electronically viewed and signed by .Shasta Cisneros MD, on 11/06/2016 06:51 .G/
--- NOTE | 2016-11-06 06:52 | CONS ---
Date/Time of Note Date/Time of Note DATE: 11/06/16 TIME: 06:47 Assessment/Plan Assessment/Plan Chief Complaint/Hosp Course 1) asymmetrical CHF doubt pt has pneumonia continue with diuresis and repeat CXR in a.m. will start ceftriaxone/azithro but if CXR shows good improvement will likely d/ c them tomorrow send sputum cx 11/04 - low grade fever last night with chill will check rapid Flu Ag continue with ceftriaxone/azithro at this time await repeat CXR 11/05 - CXR was much improved, doubt routine pneumonia d/c ceftriaxone, continue with azithromycin flu Ag were negative will order chest CT to be done after HD today 11/06 - CT shows partial LLL collapse and R axillary LN with surrounding inflammation No aydee pneumonia, sputum cx were negative pt to complete azithro on 11/07 will order ESR, LDH, CMP for this a.m. ok to d/c and continue work-up as outpt pt may need bronch if aggressive pulmonary toilet does not open LLL further 2) asymmetrical calf swelling will order LE venous dopplers 11/04 - venous dopplers were negative 3) CAD 4) ESRD with 2 failed kidney Tx 5) R axillary LN with inflammatory changes 11/06 - unable to feel will order ESR, LDH pt may need gallium scan or Pet CT as outpt for followup consider heme/onc consult Problems: Consultation Date/Type/Reason Admit Date/Time Nov 03, 2016 at 08:52 Initial Consult Date 11/03/16 Type of Consultation: ID Referring Provider: POP BOYCE MD 24 HR Interval Summary Free Text/Dictation cough is less intense, breathing overall if better no new problems, wants to go home Exam/Review of Systems Vital Signs Vitals Vital Signs Date Time Temp Pulse Resp B/P Pulse Ox O2 Delivery O2 Flow Rate FiO2 11/06/16 04:46 80 11/06/16 04:31 98.4 19 121/53 99 11/06/16 01:50 4.0 36 11/05/16 20:00 Nasal Cannula Intake and Output 11/05/16 11/05/16 11/06/16 15:00 23:00 07:00 Intake Total 500 ml 720 ml 100 ml Output Total 2000 ml 0 ml Balance -1500 ml 720 ml 100 ml Exam Constitutional: alert, oriented Head: normocephalic Eyes: nl conjunctiva ENMT: mucosa pink and moist Respiratory: clear to auscultation Cardiovascular: regular rate and rhythm Gastrointestinal: non-tender, soft Extremities: other (No LN felt in R axilla) Results Result Diagram: 11/05/16 0550 11/05/16 0550 Medications Medications Current Medications Allopurinol (Zyloprim) 100 mg DAILY PO Last administered on 11/05/16 09:16; Admin Dose 100 MG; Start 11/03/16 at 12:00 Amlodipine Besylate (Norvasc) 5 mg DAILY PO Last administered on 11/03/16 11: 56; Admin Dose 5 MG; Start 11/03/16 at 11:00 Aspirin (Aspirin) 81 mg DAILY PO Last administered on 11/05/16 09:13; Admin Dose 81 MG; Start 11/04/16 at 09:00 Atorvastatin Calcium (Lipitor) 40 mg DAILY@21 PO Last administered on 21:24; Admin Dose 40 MG; Start 11/03/16 at 21:00 Carvedilol (Coreg) 12.5 mg BID PO Last administered on 11/05/16 21:24; Admin Dose 12.5 MG; Start 11/03/16 at 11:00 Clopidogrel Bisulfate (plaVIX) 75 mg DAILY PO Last administered on 11/05/16 09 :15; Admin Dose 75 MG; Start 11/03/16 at 11:00 Docusate Sodium (Colace) 300 mg HS PO Last administered on 11/05/16 21:24; Admin Dose 300 MG; Start 11/03/16 at 21:00 Acetaminophen/ Hydrocodone Bitart ([place] (5/325)) 1 tab Q6H PRN PO PAIN LEVEL 4 -7; Start 11/03/16 at 11:00 Isosorbide Mononitrate (Imdur) 30 mg DAILY PO ; Start 11/04/16 at 09:00 Losartan Potassium (Cozaar) 50 mg BID PO Last administered on 11/04/16 20:52; Admin Dose 50 MG; Start 11/03/16 at 21:00 Ropinirole HCl (Requip) 0.5 mg TID PO Last administered on 11/05/16 21:29; Admin Dose 0.5 MG; Start 11/03/16 at 13:00 Zolpidem Tartrate (Ambien) 5 mg HS PRN PO INSOMNIA Last administered on 00:53; Admin Dose 5 MG; Start 11/03/16 at 11:00 Alprazolam (Xanax) 0.25 mg BID PO Last administered on 11/04/16 20:52; Admin Dose 0.25 MG; Start 11/03/16 at 21:00 Ondansetron HCl (Zofran Tab) 4 mg Q6H PRN PO NAUSEA AND/OR VOMITING; Start at 11:00 Nitroglycerin (Nitroglycerin (Sl Tab) 0.4 Mg) 1 tab Q5M PRN SL CHEST PAIN; Start 11/03/16 at 11:00 Acetaminophen (Tylenol Tab) 650 mg Q6H PRN PO PAIN LEVEL 1-3 OR FEVER; Start at 11:00 Pantoprazole (Protonix Tab) 40 mg DAILY@06 PO Last administered on 11/06/16 06 :18; Admin Dose 40 MG; Start 11/04/16 at 06:00 Oxycodone HCl (Roxicodone) 5 mg Q8H PRN PO PAIN; Start 11/03/16 at 14:00 Azithromycin (Zithromax) 250 mg DAILY PO Last administered on 11/05/16 09:16; Admin Dose 250 MG; Start 11/04/16 at 09:00 Epoetin Lyle (Epogen (Esrd)) 10,000 units MoWeFr@17 SC Last administered on 17:33; Admin Dose 10,000 UNITS; Start 11/05/16 at 17:00 Hydralazine HCl (Apresoline) 50 mg TID PO Last administered on 11/05/16 21:25 ; Admin Dose 50 MG; Start 11/05/16 at 09:00 GILA QUEZADA MD Nov 06, 2016 06:52
[2016-11-06 06:58] LABS: BASOPHILS % 0.4 % (0.0-2.0); EOSINOPHILS # 0.2 10^3/ul (0.0-0.5); EOSINOPHILS % 5.7 % (0.0-7.0); HEMOGLOBIN 9.2 g/dl (14.0-18.0); LYMPHOCYTES # 1.1 10^3/ul (0.8-2.9); LYMPHOCYTES % 26.9 % (15.0-51.0); MEAN CORPUSCULAR HEMOGLOBIN 27.8 pg (29.0-33.0); MEAN CORPUSCULAR HGB CONC 31.7 g/dl (32.0-37.0); MEAN CORPUSCULAR VOLUME 87.5 fl (82.0-101.0); MEAN PLATELET VOLUME 8.1 fl (7.4-10.4); MONOCYTE # 0.3 10^3/ul (0.3-0.9); NEUTROPHIL # 2.5 10^3/ul (1.6-7.5); PLATELET COUNT 148 10^3/UL (140-440); RED BLOOD COUNT 3.32 10^6/ul (4.70-6.10); RED CELL DISTRIBUTION WIDTH 19.7 % (11.5-14.5); UNCORRECTED WBC 4.2 10^3/ul (4.8-10.8); WHITE BLOOD COUNT 4.2 10^3/ul (4.8-10.8)
[2016-11-06 07:08] LABS: CONDITION 1; LH ANALYZER COMMENTS 1
--- NOTE | 2016-11-06 08:09 | CONS ---
Date/Time of Note Date/Time of Note DATE: 11/06/16 TIME: 08:05 Assessment/Plan Assessment/Plan Problems: (1) Edema Comment: of LUE... to get duplex today for f/u... has seen dr Smith at already (2) Atelectasis of left lung Comment: await f/u w Dr Anaya (3) HTN (hypertension) Comment: controlled (4) SOB (shortness of breath) Comment: near baseline... uses cont O2 at home (5) ESRD (end stage renal disease) on dialysis Comment: for HD in AM Consultation Date/Type/Reason Admit Date/Time Nov 03, 2016 at 08:52 Initial Consult Date 11/03/16 Type of Consultation: neph Referring Provider: POP BOYCE MD 24 HR Interval Summary Free Text/Dictation slowly improving... LUE more swollen, has known stenosis...LLLatelectasis on CT.. await dr Anaya eval Exam/Review of Systems Vital Signs Vitals Vital Signs Date Time Temp Pulse Resp B/P Pulse Ox O2 Delivery O2 Flow Rate FiO2 11/06/16 07:54 4.0 11/06/16 07:14 98.3 72 18 154/71 100 11/06/16 01:50 36 11/05/16 20:00 Nasal Cannula Intake and Output 11/05/16 11/05/16 11/06/16 15:00 23:00 07:00 Intake Total 500 ml 720 ml 100 ml Output Total 2000 ml 0 ml Balance -1500 ml 720 ml 100 ml Exam Constitutional: alert Neck: supple Respiratory: clear to auscultation Cardiovascular: regular rate and rhythm Extremities: normal pulses (fxn LUE AVF, but more edema L forearm and hand) Results Result Diagram: 11/06/16 0555 11/05/16 0550 Results 24 hrs Laboratory Tests Test 11/06/16 05:55 Basophils # 0.0 Basophils % 0.4 Blood Morphology Comment Eosinophils # 0.2 Eosinophils % 5.7 Hematocrit 29.0 L Hemoglobin 9.2 L Lymphocytes # 1.1 Lymphocytes % 26.9 Mean Corpuscular Hemoglobin 27.8 L Mean Corpuscular Hemoglobin Concent 31.7 L Mean Corpuscular Volume 87.5 Mean Platelet Volume 8.1 Monocytes # 0.3 Monocytes % 7.0 Neutrophils # 2.5 Neutrophils % 60.0 Nucleated Red Blood Cells # 0.0 Nucleated Red Blood Cells % 0.0 Platelet Count 148 Red Blood Count 3.32 L Red Cell Distribution Width 19.7 H White Blood Count 4.2 L Medications Medications Current Medications Allopurinol (Zyloprim) 100 mg DAILY PO Last administered on 11/05/16 09:16; Admin Dose 100 MG; Start 11/03/16 at 12:00 Amlodipine Besylate (Norvasc) 5 mg DAILY PO Last administered on 11/03/16 11: 56; Admin Dose 5 MG; Start 11/03/16 at 11:00 Aspirin (Aspirin) 81 mg DAILY PO Last administered on 11/05/16 09:13; Admin Dose 81 MG; Start 11/04/16 at 09:00 Atorvastatin Calcium (Lipitor) 40 mg DAILY@21 PO Last administered on 21:24; Admin Dose 40 MG; Start 11/03/16 at 21:00 Carvedilol (Coreg) 12.5 mg BID PO Last administered on 11/05/16 21:24; Admin Dose 12.5 MG; Start 11/03/16 at 11:00 Clopidogrel Bisulfate (plaVIX) 75 mg DAILY PO Last administered on 11/05/16 09 :15; Admin Dose 75 MG; Start 11/03/16 at 11:00 Docusate Sodium (Colace) 300 mg HS PO Last administered on 11/05/16 21:24; Admin Dose 300 MG; Start 11/03/16 at 21:00 Acetaminophen/ Hydrocodone Bitart ([place] (5/325)) 1 tab Q6H PRN PO PAIN LEVEL 4 -7; Start 11/03/16 at 11:00 Isosorbide Mononitrate (Imdur) 30 mg DAILY PO ; Start 11/04/16 at 09:00 Losartan Potassium (Cozaar) 50 mg BID PO Last administered on 11/04/16 20:52; Admin Dose 50 MG; Start 11/03/16 at 21:00 Ropinirole HCl (Requip) 0.5 mg TID PO Last administered on 11/05/16 21:29; Admin Dose 0.5 MG; Start 11/03/16 at 13:00 Zolpidem Tartrate (Ambien) 5 mg HS PRN PO INSOMNIA Last administered on 00:53; Admin Dose 5 MG; Start 11/03/16 at 11:00 Alprazolam (Xanax) 0.25 mg BID PO Last administered on 11/04/16 20:52; Admin Dose 0.25 MG; Start 11/03/16 at 21:00 Ondansetron HCl (Zofran Tab) 4 mg Q6H PRN PO NAUSEA AND/OR VOMITING; Start at 11:00 Nitroglycerin (Nitroglycerin (Sl Tab) 0.4 Mg) 1 tab Q5M PRN SL CHEST PAIN; Start 11/03/16 at 11:00 Acetaminophen (Tylenol Tab) 650 mg Q6H PRN PO PAIN LEVEL 1-3 OR FEVER; Start at 11:00 Pantoprazole (Protonix Tab) 40 mg DAILY@06 PO Last administered on 11/06/16 06 :18; Admin Dose 40 MG; Start 11/04/16 at 06:00 Oxycodone HCl (Roxicodone) 5 mg Q8H PRN PO PAIN; Start 11/03/16 at 14:00 Azithromycin (Zithromax) 250 mg DAILY PO Last administered on 11/05/16 09:16; Admin Dose 250 MG; Start 11/04/16 at 09:00 Epoetin L[place] (Epogen (Esrd)) 10,000 units MoWeFr@17 SC Last administered on 17:33; Admin Dose 10,000 UNITS; Start 11/05/16 at 17:00 Hydralazine HCl (Apresoline) 50 mg TID PO Last administered on 11/05/16 21:25 ; Admin Dose 50 MG; Start 11/05/16 at 09:00 POP BOYCE MD Nov 06, 2016 08:09
[2016-11-06] MEDS: LOSARTAN 50 MG TAB PO SCH ×2 (09:00→20:39)
[2016-11-06] MEDS: AMLODIPINE 5 MG TAB PO SCH (09:00)
[2016-11-06] MEDS: ISOSORBIDE MONONITRATE(SR)30 MG TAB PO SCH (09:00)
[2016-11-06] MEDS: ASPIRIN 81 MG TAB PO SCH (09:00)
[2016-11-06 09:10] LABS: ALBUMIN 3.3 g/dl (3.3-4.9); POTASSIUM 4.2 mmol/L (3.5-5.1)
[2016-11-06 09:12] LABS: BILIRUBIN,INDIRECT 0.1 mg/dl (0-1.1); BILIRUBIN,TOTAL 0.1 mg/dl (0.2-1.3); CREATININE 6.06 mg/dl (0.61-1.24)
[2016-11-06 09:13] LABS: ALBUMIN/GLOBULIN RATIO 1.13; TOTAL PROTEIN 6.2 g/dl (6.1-8.1)
--- NOTE | 2016-11-06 09:13 | RADRPT ---
PROCEDURE: US left upper extremity veins. CLINICAL INDICATION: Left arm pain and swelling. TECHNIQUE: Multiple longitudinal and transverse images of the left upper extremity venous tree was obtained with encarnacion scale, pulsed Doppler, and color Doppler imaging. COMPARISON: None available FINDINGS: The left internal jugular, subclavian, axillary, brachial, basilic, cephalic, radial, and ulnar vein s are patent. There is normal flow with augmentation and compressibility throughout. There is no th rombus or occlusion. There is also a left upper extremity dialysis fistula which appears patent. IMPRESSION: 1. Normal venous system of the left upper extremity. No evidence of thrombus or occlusion. 2. Patent left upper extremity dialysis fistula. RPTAT: QQ .Lazaro Zavaleta MD, MD Date Time Electronically viewed and signed by .Lazaro Zavaleta MD, on 11/06/2016 09:13 .R/
[2016-11-06 09:14] LABS: CALCIUM 9.2 mg/dl (8.4-10.2)
[2016-11-06] MEDS: CLOPIDOGREL 75 MG TAB PO SCH (09:14)
[2016-11-06] MEDS: ROPINIROLE 0.25 MG TAB PO SCH ×3 (09:14→20:37)
[2016-11-06] MEDS: ALLOPURINOL 100 MG TAB PO SCH (09:14)
[2016-11-06] MEDS: AZITHROMYCIN 250 MG TAB PO SCH (09:14)
--- NOTE | 2016-11-06 13:57 | PN ---
DATE: REASON FOR FOLLOWUP: Shortness of breath. SUBJECTIVE: Mr. Clemens remains stable this morning. No new events. No shortness of breath and an o ccasional cough. PHYSICAL EXAMINATION: VITAL SIGNS: Temperature 98, pulse 67, blood pressure 129/60, O2 saturation 96% on 4 L nasal cannul a. NECK: Supple, no JVD or lymphadenopathy. CARDIAC: S1, S2, no added sounds or murmurs. CHEST: Diminished air entry both lung wright. ABDOMEN: Soft, nontender. No guarding or rebound. EXTREMITIES: No cyanosis, clubbing, edema. NEUROLOGIC: Grossly intact. No focal deficits. IMAGING: CT of the chest shows bibasilar atelectasis, small pleural effusions, no lung collapse. Chest x-ray shows interstitial edema, otherwise no significant abnormalities. IMPRESSION AND PLAN: 1. Compressive atelectasis secondary to pleural effusions. 2. Status post respiratory failure secondary to volume overload. 3. End-stage renal failure on hemodialysis. 4. History of hypertension. RECOMMENDATIONS 1. Continue hemodialysis with volume removal. 2. Encourage out of bed. 3. Incentive spirometry. 4. Repeat chest x-ray and/or CT in 2 to 3 weeks' time and if pleural effusion is still persistent p atient will require thoracentesis. Dictated By: MUKUND MAGANA/RAYA Conf#: [id number] DID#: [id number]
[2016-11-06] MEDS ORDERED: EPOETIN 10000 UNITS/1 ML INJ (ESRD) SC SCH (17:00)
[2016-11-06] MEDS: DOCUSATE SODIUM 100 MG CAP PO SCH (20:37)
[2016-11-06] MEDS: ATORVASTATIN 40 MG TAB PO SCH (20:37)
[2016-11-07] VITALS (18 sets, daily range): BP systolic 136–172; BP diastolic 43–76; PULSE 64–78; RESP 18–20
[2016-11-07] MEDS ORDERED: ROPINIROLE 0.25 MG TAB PO ONE (04:30)
[2016-11-07] MEDS: PANTOPRAZOLE (EC) 40 MG TAB PO SCH (05:35)
--- NOTE | 2016-11-07 06:52 | CONS ---
Date/Time of Note Date/Time of Note DATE: 11/07/16 TIME: 06:48 Assessment/Plan Assessment/Plan Chief Complaint/Hosp Course 1) asymmetrical CHF doubt pt has pneumonia continue with diuresis and repeat CXR in a.m. will start ceftriaxone/azithro but if CXR shows good improvement will likely d/ c them tomorrow send sputum cx 11/04 - low grade fever last night with chill will check rapid Flu Ag continue with ceftriaxone/azithro at this time await repeat CXR 11/05 - CXR was much improved, doubt routine pneumonia d/c ceftriaxone, continue with azithromycin flu Ag were negative will order chest CT to be done after HD today 11/06 - CT shows partial LLL collapse and R axillary LN with surrounding inflammation No aydee pneumonia, sputum cx were negative pt to complete azithro on 11/07 will order ESR, LDH, CMP for this a.m. ok to d/c and continue work-up as outpt pt may need bronch if aggressive pulmonary toilet does not open LLL further 11/07 - pulmonary felt there was no LLL collapse agree with plan for follow-up chest CT in 2-3 weeks d/c azithro after today's dose 2) asymmetrical calf swelling will order LE venous dopplers 11/04 - venous dopplers were negative 3) CAD 4) ESRD with 2 failed kidney Tx 5) R axillary LN with inflammatory changes 11/06 - unable to feel will order ESR, LDH pt may need gallium scan or Pet CT as outpt for followup consider heme/onc consult 11/07 - ESR is elevated but normal LDH agree with plan for follow-up CT and if still present he will need further work- up Problems: Consultation Date/Type/Reason Admit Date/Time Nov 03, 2016 at 08:52 Initial Consult Date 11/03/16 Type of Consultation: ID Referring Provider: POP BOYCE MD 24 HR Interval Summary Free Text/Dictation cough is less but still present has swelling of LUE for months, venous doppler was negative no N, V, D Exam/Review of Systems Vital Signs Vitals Vital Signs Date Time Temp Pulse Resp B/P Pulse Ox O2 Delivery O2 Flow Rate FiO2 11/07/16 04:52 4.0 11/07/16 04:24 64 11/07/16 04:14 98.2 20 140/63 99 11/06/16 20:00 Nasal Cannula 11/06/16 01:50 36 Intake and Output 11/06/16 11/06/16 11/07/16 15:00 23:00 07:00 Intake Total 720 ml Output Total 0 ml Balance 720 ml Exam Constitutional: alert, oriented Head: normocephalic Eyes: nl conjunctiva ENMT: mucosa pink and moist Respiratory: clear to auscultation Cardiovascular: regular rate and rhythm Gastrointestinal: non-tender, soft Results Result Diagram: 11/06/1655 11/06/16 0555 Medications Medications Current Medications Allopurinol (Zyloprim) 100 mg DAILY PO Last administered on 11/06/16 09:14; Admin Dose 100 MG; Start 11/03/16 at 12:00 Amlodipine Besylate (Norvasc) 5 mg DAILY PO Last administered on 11/03/16 11: 56; Admin Dose 5 MG; Start 11/03/16 at 11:00 Aspirin (Aspirin) 81 mg DAILY PO Last administered on 11/05/16 09:13; Admin Dose 81 MG; Start 11/04/16 at 09:00 Atorvastatin Calcium (Lipitor) 40 mg DAILY@21 PO Last administered on 20:37; Admin Dose 40 MG; Start 11/03/16 at 21:00 Carvedilol (Coreg) 12.5 mg BID PO Last administered on 11/06/16 20:38; Admin Dose 12.5 MG; Start 11/03/16 at 11:00 Clopidogrel Bisulfate (plaVIX) 75 mg DAILY PO Last administered on 11/06/16 09 :14; Admin Dose 75 MG; Start 11/03/16 at 11:00 Docusate Sodium (Colace) 300 mg HS PO Last administered on 11/06/16 20:37; Admin Dose 300 MG; Start 11/03/16 at 21:00 Acetaminophen/ Hydrocodone Bitart (Hobucken (5/325)) 1 tab Q6H PRN PO PAIN LEVEL 4 -7; Start 11/03/16 at 11:00 Isosorbide Mononitrate (Imdur) 30 mg DAILY PO ; Start 11/04/16 at 09:00 Losartan Potassium (Cozaar) 50 mg BID PO Last administered on 11/04/16 20:52; Admin Dose 50 MG; Start 11/03/16 at 21:00 Ropinirole HCl (Requip) 0.5 mg TID PO Last administered on 11/06/16 20:37; Admin Dose 0.5 MG; Start 11/03/16 at 13:00 Zolpidem Tartrate (Ambien) 5 mg HS PRN PO INSOMNIA Last administered on 20:49; Admin Dose 5 MG; Start 11/03/16 at 11:00 Alprazolam (Xanax) 0.25 mg BID PO Last administered on 11/04/16 20:52; Admin Dose 0.25 MG; Start 11/03/16 at 21:00 Ondansetron HCl (Zofran Tab) 4 mg Q6H PRN PO NAUSEA AND/OR VOMITING; Start at 11:00 Nitroglycerin (Nitroglycerin (Sl Tab) 0.4 Mg) 1 tab Q5M PRN SL CHEST PAIN; Start 11/03/16 at 11:00 Acetaminophen (Tylenol Tab) 650 mg Q6H PRN PO PAIN LEVEL 1-3 OR FEVER; Start at 11:00 Pantoprazole (Protonix Tab) 40 mg DAILY@06 PO Last administered on 11/07/16 05 :35; Admin Dose 40 MG; Start 11/04/16 at 06:00 Oxycodone HCl (Roxicodone) 5 mg Q8H PRN PO PAIN; Start 11/03/16 at 14:00 Azithromycin (Zithromax) 250 mg DAILY PO Last administered on 11/06/16 09:14; Admin Dose 250 MG; Start 11/04/16 at 09:00; Stop 11/07/16 at 15:00 Epoetin Lyle (Epogen (Esrd)) 10,000 units MoWeFr@17 SC Last administered on 17:33; Admin Dose 10,000 UNITS; Start 11/05/16 at 17:00 Hydralazine HCl (Apresoline) 50 mg TID PO Last administered on 11/06/16 20:38 ; Admin Dose 50 MG; Start 11/05/16 at 09:00 Epoetin Lyle (Epogen (Esrd)) 10,000 units TuThSa@17 SC Last administered on 17:36; Admin Dose 10,000 UNITS; Start 11/06/16 at 17:00 GILA QUEZADA MD Nov 07, 2016 06:52
[2016-11-07] MEDS: ASPIRIN 81 MG TAB PO SCH ×2 (09:00→12:51)
[2016-11-07] MEDS: CLOPIDOGREL 75 MG TAB PO SCH ×2 (09:00→12:51)
[2016-11-07] MEDS: AMLODIPINE 5 MG TAB PO SCH ×2 (09:00→12:53)
[2016-11-07] MEDS: ALPRAZOLAM 0.25 MG TAB PO SCH (09:00)
[2016-11-07] MEDS: LOSARTAN 50 MG TAB PO SCH ×2 (09:00→12:53)
[2016-11-07] MEDS: AZITHROMYCIN 250 MG TAB PO SCH ×2 (09:00→12:51)
[2016-11-07] MEDS: ALLOPURINOL 100 MG TAB PO SCH ×2 (09:00→12:51)
[2016-11-07] MEDS: ROPINIROLE 0.25 MG TAB PO SCH ×3 (09:00→12:51)
[2016-11-07] MEDS: ISOSORBIDE MONONITRATE(SR)30 MG TAB PO SCH ×2 (09:00→12:52)
[2016-11-07] MEDS: EPOETIN 10000 UNITS/1 ML INJ (ESRD) SC SCH (13:25)
--- NOTE | 2016-11-07 13:36 | PN ---
DATE: 11/07/2016 SUBJECTIVE: Chart reviewed. No significant events noted. PHYSICAL EXAMINATION: VITAL SIGNS: Blood pressure 136/71, pulse 57, respirations 18, temperature 97.9. HEENT: Pupils are equal and reactive to light. NECK: Supple. No JVD noted, no cervical adenopathy, no carotid bruits heard. LUNGS: Fair breath sounds bilaterally. CARDIOVASCULAR: S1, S2 normal. ABDOMEN: Soft, nontender. No organomegaly or masses noted. EXTREMITIES: No clubbing or cyanosis noted. NEUROLOGIC: No changes. LABORATORY: No new labs today. IMPRESSION: 1. Status post respiratory failure. 2. Pulmonary edema and volume overload, now better. 3. End-stage renal disease, on hemodialysis. 4. Compressive atelectasis. 5. History of hypertension. RECOMMENDATIONS: 1. Continue hemodialysis and ultrafiltration per nephrology. 2. Incentive spirometry. 3. Oxygen as needed. 4. Encourage physical therapy. Dictated By: DONNA JUÁREZ MD, MA/RAYA Conf#: [id number] DID#: [id number]
--- NOTE | 2016-11-07 17:43 | CONS ---
Date/Time of Note Date/Time of Note DATE: 11/07/16 TIME: 17:36 Assessment/Plan Assessment/Plan Chief Complaint/Hosp Course ASSESSMENT: 1. Pulm edema, likely with component of acute on chronic diastolic+systolic heart failure precipitated by hypertensive crisis. ID following, less likely pna, now off abx. resp status improved with bp control/iHD fluid mgmt . 2. Hypertensive crisis- resolved 3. Chronic renal failure on dialysis failed to prior transplants per history- LUE fistula in place, but has LUE edema, u/s neg for dvt 4. Hyperlipidemia. 5. Gout. 6. CAD- s/p many previous PCI. Last C 08/2015 after NSTEMI. [employer] ostial LCx with L/R-L collaterals. diffusely diseased small branch of D1. patent lad/Diag stents. pt with CABG evaluation by Dr. Draper, [facility] but felt that he was high risk with limited benefit 7. Ischemic cardiopathy ejection fraction 45% on most recent echo 10/2016 PLAN: 1. cont iHD for fluid mgmt 2. Continue hydralazine, losartan, carvedilol, amlodipine and isosorbide. 3. if bp still elevated on non-iHD day can increase meds, however pt hesitant to reach sbp < 140 as he feel it makes him ill 4. wean o2 5. ambulate patient Problems: Consultation Date/Type/Reason Admit Date/Time Nov 03, 2016 at 08:52 Initial Consult Date 11/03/16 Type of Consultation: Cardiology Referring Provider: POP BOYCE MD 24 HR Interval Summary Free Text/Dictation pt seen earlier this am. pt denies any chest pain, no palpitations, dizziness. still requiring o2. bp under better control. has LUE edema unchanged. tele reviewed: NSR Detailed Summary Respiratory: shortness of breath Cardiovascular: no complaints Gastrointestinal: no complaints Exam/Review of Systems Vital Signs Vitals Vital Signs Date Time Temp Pulse Resp B/P Pulse Ox O2 Delivery O2 Flow Rate FiO2 11/07/16 13:35 69 11/07/16 12:45 14 11/07/16 11:53 97.9 136/71 96 11/07/16 08:00 Nasal Cannula 4.0 11/06/16 01:50 36 Intake and Output 11/06/16 11/06/16 11/07/16 15:00 23:00 07:00 Intake Total 720 ml Output Total 0 ml Balance 720 ml Exam HEENT; positive JVD, positive HJR, carotids 2 over 4+ without bruits. Chest: clear to auscultation Cardiac: nl S1, S2 with paradoxical splitting, 1/6 systolic ejection murmur, no rub click or diastolic murmur noted. Abdominal: Bowel sounds positive, soft nontender, no abdominal bruit noted, no hepatosplenomegaly. Extremities: No cyanosis, clubbing, trace to 1+ edema bilaterally. Negative Homans sign or palpable cords. Shunt LUE, edema of LUE 2+. Pulses: 2/4 pulses diffusely no bruits noted. Results Result Diagram: 11/06/16 0555 11/06/16 0555 Procedures Procedures ext u/s report reviewed IMPRESSION: 1. Normal venous system of the left upper extremity. No evidence of thrombus or occlusion. 2. Patent left upper extremity dialysis fistula. SUSANA VASQUEZ Nov 07, 2016 17:43
--- NOTE | 2016-11-07 18:33 | DS ---
DATE OF ADMISSION: 11/03/2016 DATE OF DISCHARGE: 11/07/2016 HISTORY OF PRESENT ILLNESS: Please see full dictated history and physical per Dr. Cuba. Briefly, this is a 71-year-old gentleman well known to me with known end-stage renal disease due to diabetes and hypertension, currently maintained on outpatient hemodialysis every Thursday, Thursday, and Thursday who presented to the hospital on the morning of his typical dialysis treatment with incre asing shortness of breath and transient chest discomfort. He does have a significant cardiac history having undergone multiple interventions, as well as havin g an ischemic cardiomyopathy. He was stabilized in the emergency room and admitted. HOSPITAL COURSE: The patient was admitted in congestive heart failure with elevated blood pressure due to the above. He was urgently dialyzed with marked improvement in his symptoms and as well was seen by cardiology, infectious disease and pulmonary. He did not rule in for any MN, troponins remained stable and he had no further chest discomfort during his hospital stay. Initial chest x-ray showed asymmetrical p ulmonary edema. This improved at the time of discharge, a followup chest CT scan; however, was done which showed bilateral small effusions with some atelectasis of the left lower lobe and a nonspecif ic region of axillary subcutaneous fat inflammatory changes. Dr. Anaya did not feel he had any lower lobe collapse and did not need any bronchoscopy. Cultures remained negative, as well as flu antigens, antibiotics that were initially started were di scontinued at the time of discharge, he remained without cough, sputum production or fever, underwen t successful dialytic ultrafiltration during his hospital stay and at the time of discharge, was in his stable condition and improved. DISCHARGE DIAGNOSES: 1. Congestive heart failure, resolved with vigorous ultrafiltration. 2. Known end-stage renal disease maintained on outpatient hemodialysis every Thursday, Thursday, and Thursday. 3. Significant coronary artery disease status post numerous percutaneous coronary intervention (PCI ) and stenting, most recently following a non-ST elevation myocardial infarction (MN) in September 07. 4. Known ischemic cardiomyopathy with an ejection fraction approximately 45%. 5. Gout inactive. 6. Hyperlipidemia, currently controlled on medicine. 7. Hypertension, well controlled at the time of discharge. 8. Gastroesophageal reflux disease (GERD). 9. Prior history of failed renal transplantations x2. 10. Diabetes mellitus, currently well controlled on diet alone. 11. Restless leg syndrome, treated with Requip. DISPOSITION: Home. FOLLOWUP: Will be with Dr. Boyce. CONDITION ON DISCHARGE: Stable. DISCHARGE MEDICATIONS: As per the medical reconciliation sheet. Dictated By: POP BOYCE MD, MM/RAYA Conf#: [id number] DID#: [id number]
== END 2016-11-07 15:46 | disposition home or self-care (01) | DRG 291 ==
LOC: FTE 06:59 → TEL 08:52
PROVIDERS: ADMIT Internal Medicine; ATTEND Internal Medicine
PROC: 5A1D60Z (ICD-10-PCS; principal; 2016-11-03)
DX: I13.2 Hypertensive heart and chronic kidney disease with heart failure and with stage 5 chronic kidney disease, or end stage renal disease (principal); N18.6 End stage renal disease; J96.91 Respiratory failure, unspecified with hypoxia; N17.9 Acute kidney failure, unspecified; T86.12 Kidney transplant failure; I50.43 Acute on chronic combined systolic (congestive) and diastolic (congestive) heart failure; I16.9 Hypertensive crisis, unspecified; J98.11 Atelectasis; Z99.2 Dependence on renal dialysis; I25.5 Ischemic cardiomyopathy; Z95.5 Presence of coronary angioplasty implant and graft; I25.2 Old myocardial infarction; K21.9 Gastro-esophageal reflux disease without esophagitis; G25.81 Restless legs syndrome; E78.5 Hyperlipidemia, unspecified; R50.9 Fever, unspecified
CPT/HCPCS: 71010; 71250; 80053; 80061; 82550; 82553; 83615; 83735; 83880; 84100; 84145; 84443; 84484; 85025; 85610; 85651; 85730; 87040; 87070; 87400; 90935; 93005; 93306; 93923; 93971; 94644; 94660; 96374; J0696; J0886

== ENCOUNTER 2016-12-01 04:52 | Inpatient (IN) | payer MEDICARE, OTHER ==
[2016-12-01] VITALS (18 sets, daily range): BP systolic 140–177; BP diastolic 63–89; PULSE 72–82; RESP 15–20; TEMP 98.3; Ht 170.2 cm; Wt 85.1 kg
[~2016-12-01] VITALS: Ht 170.2 cm; Wt 85.1 kg
[~2016-12-01 04:52] MED LIST changes: -ALLO100T64 PO; -AMLO-145 PO; -ASP81 PO; +ASPI81TA3 PO; -DOCU-144 PO; -ISOS30TA5 PO; -LOSA50TA6 PO; -OXYC5TAB84 PO
[2016-12-01] MEDS ORDERED: morphine 4 MG/ML VIAL IV STA (05:01)
[2016-12-01] MEDS ORDERED: ONDANSETRON 4 MG INJ IV STA (05:01)
[2016-12-01] MEDS ORDERED: NITROGLYCERIN 50 MG/D5W (PMX) 250 ML IV STA (05:01)
[2016-12-01] MEDS: FUROSEMIDE 20 MG INJ IV STA ×2 (05:09→05:18)
[2016-12-01 05:13] LABS: BASOPHIL # 0.1 10^3/ul (0.0-0.1); BASOPHILS % 0.4 % (0.0-2.0); EOSINOPHILS # 0.3 10^3/ul (0.0-0.5); EOSINOPHILS % 2.4 % (0.0-7.0); HEMOGLOBIN 11.9 g/dl (14.0-18.0); LYMPHOCYTES # 4.4 10^3/ul (0.8-2.9); LYMPHOCYTES % 34.5 % (15.0-51.0); MEAN CORPUSCULAR HEMOGLOBIN 28.8 pg (29.0-33.0); MEAN CORPUSCULAR HGB CONC 31.3 g/dl (32.0-37.0); MEAN CORPUSCULAR VOLUME 92.1 fl (82.0-101.0); MONOCYTE # 0.3 10^3/ul (0.3-0.9); MONOCYTES % 2.7 % (0.0-11.0); NEUTROPHIL # 7.6 10^3/ul (1.6-7.5); PLATELET COUNT 299 10^3/UL (140-440); RED BLOOD COUNT 4.12 10^6/ul (4.70-6.10); RED CELL DISTRIBUTION WIDTH 21.2 % (11.5-14.5); UNCORRECTED WBC 12.6 10^3/ul (4.8-10.8); WHITE BLOOD COUNT 12.6 10^3/ul (4.8-10.8)
[2016-12-01 05:19] LABS: INR 1.14; PROTIME 14.6 Sec (12.2-14.2); PT RATIO 1.1
[2016-12-01 05:20] LABS: PARTIAL THROMBOPLASTIN TIME 32.3 Sec (25.0-35.0)
[2016-12-01 05:23] LABS: ALBUMIN 3.9 g/dl (3.3-4.9)
[2016-12-01 05:24] LABS: POTASSIUM 4.3 mmol/L (3.5-5.1)
[2016-12-01 05:26] LABS: ALBUMIN/GLOBULIN RATIO 1.25; BILIRUBIN,INDIRECT 0.1 mg/dl (0-1.1); BILIRUBIN,TOTAL 0.1 mg/dl (0.2-1.3); CREATININE 9.5 mg/dl (0.61-1.24)
--- NOTE | 2016-12-01 05:26 | RADRPT ---
PROCEDURE: CHEST - 1 VIEW CLINICAL INDICATION: 71-year-old male with chest pain/STEMI. TECHNIQUE: A single frontal AP view of the chest was performed portably. The images were reviewed on a PACS workstation. COMPARISON: Chest x-ray November 05, 2016. FINDINGS: The cardiomediastinal silhouette is enlarged but without significant interval change. The thoracic and upper abdominal aorta are diffusely calcified. There is marked pulmonary vascular congestion/vo lume overload. There is mild right and moderate left pleural effusions with associate compressive a telectasis. A superimposed infiltrate cannot be excluded. There is no evidence for pneumothorax. Va scular stents are seen within the right upper arm soft tissues. Degenerative changes are seen withi n the spine. IMPRESSION: 1. Cardiomegaly. 2. Extensive aortic calcification. 3. Marked pulmonary vascular congestion/volume overload. 4. Mild right and moderate left pleural effusions with associate compressive atelectasis. 5. Vascular stents right upper extremity soft tissue. 6. Degenerative changes within the spine. .Nolan Perez MD, Date Time Electronically viewed and signed by .Nolan Perez MD, on 12/01/2016 05:25 .M/
[2016-12-01 05:27] LABS: CALCIUM 9.6 mg/dl (8.4-10.2)
[2016-12-01 05:30] LABS: CONDITION 1; LH ANALYZER COMMENTS 1
[2016-12-01 05:38] LABS: TROPONIN-I 0.024 ng/ml (0.00-0.12)
--- NOTE | 2016-12-01 06:02 | ERA ---
ER Documentation Chief Complaint Date/Time DATE: 12/01/16 TIME: 05:55 Chief Complaint BIBA RA 39 c/o CP,SOB,showing STEMI in the field HPI This is a very pleasant 71-year-old male brought in by rescue 39 for severe shortness of breath. Patient has a history of chronic kidney disease along with pulmonary edema. Patient said it started about 4 hours on a progressively worse. Patient had a difficult time finishing sentences at this time. ROS All systems reviewed and are negative except as per history of present illness. Medications Home Meds Active Scripts Atorvastatin Calcium* (Atorvastatin Calcium*) 20 Mg Tab, 40 MG PO HS for 90 Days Prov:POP BOYCE MD 09/06/15 Aspirin (Aspirin) 81 Mg Chew, 81 MG PO DAILY for 90 Days Prov:POP BOYCE MD 09/06/15 Ropinirole Hcl* (Requip*) 0.25 Mg Tab, 0.5 MG PO TID, #90 Prov:POP BOYCE MD 08/23/15 Reported Medications Hydralazine Hcl* (Apresoline*) 50 Mg Tab, 50 MG PO BID 09/13/13 Hydrocodone Bit-Acetaminophen (Hydrocodone Bit-APAP) 1 Each Tablet, 1 EACH PO Q6 09/13/13 Alprazolam (Alprazolam) 0.25 Mg Tab.rapdis, 0.25 MG PO BID 09/13/13 Carvedilol* (Carvedilol*) 6.25 Mg Tablet, 12.5 MG PO BID 05/19/13 Zolpidem Tartrate* (Zolpidem Tartrate*) 5 Mg Tablet, 5 MG PO HS 03/26/13 Clopidogrel Bisulfate (Clopidogrel) 75 Mg Tablet, 75 MG PO DAILY 03/26/13 Allergies Allergies: Coded Allergies: No Known Allergy (Unverified , 09/03/15) PT. WAS ON BICILLIN BEFORE, WAS TOLD BY THE DOCTOR THAT HE IS NOT ALLERGIC TO PCN. PMhx/Soc History of Surgery: Yes (2x failed renal transplant, stents 12, ) Anesthesia Reaction: No Hx Neurological Disorder: No Hx Respiratory Disorders: Yes (shortness of breath) Hx Cardiac Disorders: Yes (CHF, CAD, non-ST elevation [place] (09/02/16), cardiomyopathy, HTN, hyperlipidem) Hx Psychiatric Problems: No Hx Miscellaneous Medical Probl: Yes ([place] 14X) Hx Alcohol Use: No Hx Substance Use: No Hx Tobacco Use: No Smoking Status: Unknown if ever smoked Physical Exam Vitals Vital Signs Date Time Temp Pulse Resp B/P Pulse Ox O2 Delivery O2 Flow Rate FiO2 12/01/16 05:39 103 26 117/60 100 BIPAP 12/01/16 05:36 104 28 144/68 100 Non Rebreather 12/01/16 05:20 127 163/79 88 Non Rebreather 15.0 12/01/16 05:20 Non Rebreather 15 12/01/16 05:10 183/100 12/01/16 05:00 130 35 207/118 85 12/01/16 05:00 97 15.0 12/01/16 04:52 96.9 134 30 207/118 88 Physical Exam Const: [] Head: Atraumatic Eyes: Normal Conjunctiva ENT: Normal External Ears, Nose and Mouth. Neck: Full range of motion..~ No meningismus. Resp: Rales bilaterally one third of the way up Cardio: Regular rate and rhythm, no murmurs Abd: Soft, non tender, non distended. Normal bowel sounds Skin: No petechiae or rashes Back: No midline or flank tenderness Ext: No cyanosis, or edema Neur: Awake and alert Psych: Normal Mood and Affect Result Diagram: 12/01/16 0501 12/01/16 0501 Results 24 hrs Laboratory Tests Test 12/01/16 05:01 Activated Partial Thromboplast Time 32.3Sec Alanine Aminotransferase (ALT/SGPT) 46IU/L Albumin 3.9g/dl Albumin/Globulin Ratio 1.25 Alkaline Phosphatase 212IU/L Anion Gap 26 Aspartate Amino Transf (AST/SGOT) 40IU/L B-Type Natriuretic Peptide Pending Basophils # 0.110^3/ul Basophils % 0.4% Blood Morphology Comment Blood Urea Nitrogen 58mg/dl Calcium Level 9.6mg/dl Carbon Dioxide Level 25mmol/L Chloride Level 100mmol/L Creatinine 9.50mg/dl Direct Bilirubin 0.00mg/dl Eosinophils # 0.310^3/ul Eosinophils % 2.4% Globulin 3.10g/dl Glucose Level 231mg/dl Hematocrit 38.0% Hemoglobin 11.9g/dl INR International Normalized Ratio 1.14 Indirect Bilirubin 0.1mg/dl Lymphocytes # 4.410^3/ul Lymphocytes % 34.5% Mean Corpuscular Hemoglobin 28.8pg Mean Corpuscular Hemoglobin Concent 31.3g/dl Mean Corpuscular Volume 92.1fl Mean Platelet Volume 8.0fl Monocytes # 0.310^3/ul Monocytes % 2.7% Neutrophils # 7.610^3/ul Neutrophils % 60.0% Nucleated Red Blood Cells # 0.010^3/ul Nucleated Red Blood Cells % 0.0/100WBC Platelet Count 85526^3/UL Potassium Level 4.3mmol/L Prothrombin Time 14.6Sec Prothrombin Time Ratio 1.1 Red Blood Count 4.1210^6/ul Red Cell Distribution Width 21.2% Sodium Level 147mmol/L Total Bilirubin 0.1mg/dl Total Protein 7.0g/dl Troponin I 0.024ng/ml White Blood Count 12.610^3/ul Current Medications Medications (Trade) Dose Ordered Sig/Leonardo Route PRN Reason Start Time Stop Time Status Last Admin Dose Admin Nitroglycerin/ Dextrose (Nitroglycerin 50 Mg/D5W (Pmx)) 250 ml @ 6 mls/hr ONCE STAT IV 12/01/16 05:01 12/02/16 22:40 12/01/16 05:08 Morphine Sulfate (morphine) 4 mg ONCE STAT IV 12/01/16 05:01 12/01/16 05:03 DC 12/01/16 05:09 Ondansetron HCl (Zofran Inj) 4 mg ONCE STAT IV 12/01/16 05:01 12/01/16 05:03 DC 12/01/16 05:09 Furosemide (Lasix) 60 mg ONCE STAT IV 12/01/16 05:01 12/01/16 05:03 DC Procedures/MDM EKG: Rate/Rhythm: [Normal Sinus Rhythm] QRS, ST, T-waves: [No changes consistent w/ acute ischemia] Impression: Old left bundle branch block\ Chest X-ray 1V Interpreted by me: Soft Tissue: No acute abnormalities Bones: No acute abnormalities Mediastinum/Cardiac Silhouette/Lungs: Increased interstitial fluid markings. Cephalization of vessels. Impression: Pulmonary edema Patient's heart failure symptoms is concerning for acute decompensation and will require inpatient workup and monitoring. Further w/u for ischemia, arrhythmia, PE or dissection will be deferred to the inpatient team. STEMI anglesmith consult and agreed the patient should not go to cath at this time Accepting Care Team: Current data and ongoing care discussed. Time: 5:50 AM Primary Provider: Dr. Alvarez Consulting: EVI (stemi cardio) Outstanding Data: none Critical Care: Time: 45 minutes Treatments/Evaluations: Close monitoring and treatment of unstable vital signs, cardiorespiratory, and neurologic status, while maintaining tight balance of fluid, respiratory, and cardiac interventions. Departure Diagnosis: Primary Impression: SOB (shortness of breath) Additional Impressions: ESRD (end stage renal disease) on dialysis Pulmonary edema Qualified Code: J81.0 - Acute pulmonary edema Condition: Critical ALEKSEY CONCEPCION Dec 01, 2016 06:02
[2016-12-01] MEDS ORDERED: NACL 0.9% 3 ML SYG IV SCH (07:00)
[2016-12-01] MEDS ORDERED: ONDANSETRON 4 MG INJ IV PRN (07:00)
[2016-12-01] MEDS ORDERED: ACETAMINOPHEN 325 MG TAB PO PRN (07:00)
--- NOTE | 2016-12-01 07:06 | QN ---
Documentation Comment I was a CODE BLUE when Dr. Gamez called back. The nurse spoke with him and told him the patient would be admitted for severe CHF exacerbation. I have placed an admission order for the ICU under Dr. Gamez. I asked the title clerk automobile to call back so that I could discuss with him directly. I am awaiting a call back at this time. SHELBY LUI MD Dec 01, 2016 07:06
[2016-12-01] MEDS ORDERED: ALLO100T PO (07:51)
[2016-12-01] MEDS ORDERED: ALPR0.254 PO (07:51)
[2016-12-01] MEDS ORDERED: ATOR40TA68 PO (07:52)
[2016-12-01] MEDS ORDERED: ASPI-664 PO (07:52)
[2016-12-01] MEDS ORDERED: CARI350T29 PO (07:53)
[2016-12-01] MEDS ORDERED: HYDR-905 PO (07:53)
[2016-12-01] MEDS ORDERED: GABA100C14 PO (07:53)
[2016-12-01] MEDS ORDERED: VIT1TAB.4 PO (07:54)
[2016-12-01] MEDS ORDERED: ESOM40CA PO (07:54)
[2016-12-01] MEDS ORDERED: NITR0.4T6 SL (07:55)
[2016-12-01] MEDS ORDERED: CLOP75TA27 PO (07:56)
[2016-12-01] MEDS ORDERED: SEVE2.4P3 PO (07:56)
[2016-12-01] MEDS ORDERED: ROPI0.5T2 PO (07:57)
[2016-12-01] MEDS ORDERED: CINA60TA PO (07:57)
[2016-12-01] MEDS ORDERED: ZOLP5TAB6 PO (07:57)
[2016-12-01] MEDS ORDERED: NITROGLYCERIN (SL) 0.4 MG TAB SL PRN (08:00)
[2016-12-01] MEDS: ALPRAZOLAM 0.25 MG TAB PO SCH ×2 (09:00→20:24)
[2016-12-01] MEDS ORDERED: CLOPIDOGREL 75 MG TAB PO SCH (09:00)
[2016-12-01] MEDS: ROPINIROLE 0.25 MG TAB PO SCH ×3 (09:00→20:23)
[2016-12-01] MEDS ORDERED: NON-FORMULARY/PATIENT OWN MED (Alprazolam 0.25 MG) PO SCH (09:00)
[2016-12-01] MEDS ORDERED: ASPIRIN 81 MG TAB PO SCH (09:00)
--- NOTE | 2016-12-01 10:00 | HP ---
DATE OF ADMISSION: 12/01/2016 REASON FOR ADMISSION: Acute shortness of breath. HISTORY OF PRESENT ILLNESS: This is one of several [facility] admissions for this 71-year-old gentleman wi th known end-stage renal disease who maintains outpatient dialysis every Thursday, Thursday, and , who was emergently transferred by EMS to the [facility] ER this morning with the acute onset of shortness of breath. As stated, the patient not only has a longstanding history of end-stage renal disease. He has known diabetes, currently diet controlled, hypertension, hyperlipidemia, and known significant coronary d isease status post bypass in the past as well as numerous coronary stents. He has a known ischemic cardiomyopathy, has seen multiple cardiologists including the cardiac surgeons at [facility] and is felt not to be a surgical candidate at this time. He woke up at 0400 this morning with sudden onset of some discomfort in his chest with worsening geraldine rtness of breath, 911 was called, and he was brought to the [facility] ER for evaluation. He was given aspirin and nitroglycerin in the field. On arrival to the ER, he was immediately placed on BiPAP, was given IV nitroglycerin for episodic hy pertension, and currently he feels markedly improved. Blood pressure is currently controlled. O2 saturation is 100% on BiPAP, blood pressure is 129/59 an d heart rate is in the 80s in a normal sinus rhythm. He currently denies any chest pain and apparen tly his EKG here was not consistent with any ongoing ischemia. PAST MEDICAL HISTORY: Please see full dictated problem list. ALLERGIES: NONE. MEDICATIONS: Include: 1. Xanax 0.25 mg b.i.d. 2. Aspirin 81 mg a day. 3. Lipitor 40 mg a day. 4. Coreg 12.5 mg b.i.d. 5. Plavix 75 mg a day. 6. Hydralazine 50 mg b.i.d. 7. Ketchum p.r.n. pain. 8. Ropinirole 0.5 mg t.i.d. 9. Ambien 5 mg at bedtime. REVIEW OF SYSTEMS: As per HPI, otherwise the 14-point system is negative. PHYSICAL EXAMINATION: VITAL SIGNS: He is afebrile, current blood pressure is 126/60, heart rate is 82 and regular, O2 sat uration is 100% on 15 L BiPAP. SKIN: Warm, well perfused. No lesions. HEAD: Normocephalic, atraumatic. EYES: Pupils are round and reactive. Extraocular movements are full. Sclerae are anicteric. PHARYNX: BiPAP mask in place. NECK: JVP is not distended. BACK: No CVAT. LUNGS: Show rales at the bases bilaterally. HEART: S1, S2 with a regular rhythm. ABDOMEN: Soft. EXTREMITIES: No edema. He has a well-functioning AV fistula in the right upper extremity. LABORATORY DATA: White count 12.6, hemoglobin 11.9, hematocrit 38, platelet count 299,000. INR is 1.14, sodium 147, potassium 4.3, chloride 100, bicarbonate 25, BUN 58, creatinine 9.5, glucose 231, calcium 9.6, total bilirubin 0.1, AST 40, ALT 46, alkaline phosphatase is 212. Initial troponin 0.0 24, albumin is 3.9. Chest x-ray shows cardiomegaly with pulmonary vascular congestion with bilatera l pleural effusions. EKG is not found, but reportedly with sinus rhythm, left bundle, and no acute changes. PROBLEM LIST: 1. Congestive heart failure, acute, with pulmonary edema and hypoxemia, in need of emergent dialysi s. 2. End-stage renal disease, normally dialyzes every Thursday, Thursday, and Thursday. 3. Episodic hypertension, currently controlled with IV nitroglycerin, currently off and patient is stable. 4. Hypertension, as noted. 5. Hyperlipidemia. 6. Gout. 7. Ischemic cardiomyopathy with an ejection fraction of approximately 40%. 8. Status post failed renal transplantation x2 in the past. 9. Diabetes mellitus, currently diet controlled. 10. Gastroesophageal reflux disease. 11. Restless legs syndrome, currently controlled on her Requip. RECOMMENDATIONS: 1. Urgent dialysis. 2. Admit to monitored floor. 3. Vigorous ultrafiltration. 4. Continue medications. 5. Further recommendations pending response to above. Dictated By: POP BOYCE MD, MM/RAYA Conf#: [id number] DID#: [id number]
[2016-12-01] MEDS ORDERED: HYDROCODONE/APAP (5/325) TAB PO PRN (12:00)
[2016-12-01 13:17] LABS: CK-MB 6.77 ng/ml (0.0-2.4); TROPONIN-I 0.787 ng/ml (0.00-0.12)
--- NOTE | 2016-12-01 14:22 | RADRPT ---
Echocardiogram Report Patient Name: RELL OBANDO Gender: Male Date: 1945 Study Date: 01-Dec-2016 Gag Writer: Tal Persaud RDCS Location: [facility] Ref. Physician: ARSENIO HOLLINGSWORTH Quality: Technically Difficult Study Procedures: Transthoracic echocardiogram with complete 2D, M-Mode, and doppler examination. Indications: Chest Pain. Coronary Artery Disease. 2D/M Mode Doppler Measurement Value Normal Ranges Measurement Value Normal Ranges LVIDd 2D 5.5 3.5 - 5.6 cm LVOT Peak Gene 1.1 m/sec LVIDs 2D 3.0 2.1 - 4.1 cm LVOT Peak PG 4.4 mmHg LVPWd 2D 1.0 0.6 - 1.1 cm MV E Peak Gene 0.8 m/sec IVSd 2D 0.9 0.6 - 1.1 cm MV A Peak Gene 1.0 m/sec AoR Diam 2D 2.6 2.0 - 3.7 cm MV E/A 0.8 EDV 2D 146.9 cm3 MV Decel Time 95 msec ESV 2D 28.2 cm3 MV Decel Cavalier 8 LA Dimen 2D 3.4 2.3 - 4.0 cm MV E/A 0.8 Findings Left Ventricle: Normal left ventricular cavity size. Normal left ventricular wall thickness. Severe left ventricular systolic dysfunction. Ejection fraction is visually estimated at 25 %. Tissue Doppler/Mitral Doppler indices are consistent with impaired relaxation (Stage I diastolic dysfunction). These segments of the LV are hypokinetic inferior base segment. Right Ventricle: Normal right ventricular size. Normal right ventricular systolic function. Left Atrium: The left atrium is normal in size. Right Atrium: The right atrium is normal in size. Mitral Valve: Mitral valve leaflets appear mildly thickened. Mild mitral annular calcification. Mild to moderate mitral valve regurgitation. The regurgitation jet is eccentrically directed which may underestimate the severity of mitral regurgitation. Aortic Valve: No significant aortic stenosis or insufficiency. Aortic cusps appear mildly calcified. Tricuspid Valve: Normal appearance of the tricuspid valve. Unable to obtain RVSP due to minimal presence of tricuspid regurgitation. Pulmonic Valve: Pulmonic valve not well visualized. Pericardium: Normal pericardium with no significant pericardial effusion. Aorta: Normal aortic root. IVC: Normal size and normal respiratory collapse consistent with normal right atrial pressure. Conclusions Normal left ventricular cavity size. Normal left ventricular wall thickness. Severe left ventricular systolic dysfunction. Ejection fraction is visually estimated at 25 %. Tissue Doppler/Mitral Doppler indices are consistent with impaired relaxation (Stage I diastolic dysfunction). These segments of the LV are hypokinetic inferior base segment. Normal right ventricular size. Normal right ventricular systolic function. The left atrium is normal in size. No significant aortic stenosis or insufficiency. Aortic cusps appear mildly calcified. Normal appearance of the tricuspid valve. Unable to obtain RVSP due to minimal presence of tricuspid regurgitation. Mitral valve leaflets appear mildly thickened. Mild mitral annular calcification. Mild to moderate mitral valve regurgitation. The regurgitation jet is eccentrically directed which may underestimate the severity of mitral regurgitation. Electronically Signed By: Arsenio Hollingsworth 01-Dec-2016 14:21:35 -0800 Patient Name: RELL OBANDO Study Date: 01-Dec-[id number]
--- NOTE | 2016-12-01 14:47 | CONS ---
Date/Time of Note Date/Time of Note DATE: 12/01/16 TIME: 14:40 Assessment/Plan Assessment/Plan Problems: (1) Chest pain Status: Acute (2) NSTEMI (non-ST elevated myocardial infarction) Status: Acute (3) ST elevation (STEMI) myocardial infarction Status: Acute (4) Arteriosclerotic heart disease (ASHD) (5) Edema (6) HTN (hypertension) (7) Atelectasis of left lung (8) Pulmonary edema Status: Acute Qualifiers: Qualified Code: J81.0 - Acute pulmonary edema (9) SOB (shortness of breath) (10) ESRD (end stage renal disease) on dialysis Additional Assessment/Plan NSTEMI CAD Acute on chronic systolic and Diastolic HF PAD Pt has NSTEMI will treat medically at this time as he has severe CAD with multiple PCI. If trop keeps trending up I will take him for LHC. Added HF meds with lisinipril and Spironolactone. 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 QRS is wide as well so has clear cardiac dysyncrony. had long discussion with him. Will /fu Consultation Date/Type/Reason Admit Date/Time Dec 01, 2016 at 06:35 Date of Consultation: Dec 01, 2016 Type of Consultation: Interventional Cardiology Reason for Consultation CP, CAD Hx of Present Illness Patient is 71 year old male with PMH of HTN HLD Severe CAD with PCI LM, LAD, RCA as well as NEWSROOM INTERN He was evaluated by Dr Draper at [facility] but I dont think so he needs CABG as His LAD is fine, RCA is fine but has NEWSROOM INTERN LCx and RPDA NEWSROOM INTERN which is collateralized. Microvascular disease. PAD Last night came in with HF, Tachycardia and EKG changes went in to NSTEMI due to Tachycardia and HF. Constitutional: no complaints Past Medical History Medical History: angina, congestive heart failure Social History Smoking Status: Never smoker Exam/Review of Systems Vital Signs Vitals Vital Signs Date Time Temp Pulse Resp B/P Pulse Ox O2 Delivery O2 Flow Rate FiO2 12/01/16 13:41 4.0 12/01/16 12:32 76 12/01/16 12:20 20 12/01/16 11:57 97.6 152/69 98 Nasal Cannula 12/01/16 05:35 100 Intake and Output 11/30/16 11/30/16 12/01/16 15:00 23:00 07:00 Intake Total 8 ml Balance 8 ml Exam Constitutional: alert Psych: no complaints Head: normocephalic Eyes: nl conjunctiva ENMT: nl external ears & nose Neck: supple Respiratory: clear to auscultation Cardiovascular: regular rate and rhythm Gastrointestinal: soft Results Result Diagram: 12/01/16 0501 12/01/16 0501 Results 24 hrs Laboratory Tests Test 12/01/16 05:01 12/01/16 08:20 12/01/16 12:20 Activated Partial Thromboplast Time 32.3 Alanine Aminotransferase (ALT/SGPT) 46 Albumin 3.9 Albumin/Globulin Ratio 1.25 Alkaline Phosphatase 212 H Anion Gap 26 H Aspartate Amino Transf (AST/SGOT) 40 B-Type Natriuretic Peptide 17770 H Basophils # 0.1 Basophils % 0.4 Blood Morphology Comment Blood Urea Nitrogen 58 H Calcium Level 9.6 Carbon Dioxide Level 25 Chloride Level 100 Creatinine 9.50 H Direct Bilirubin 0.00 Eosinophils # 0.3 Eosinophils % 2.4 Globulin 3.10 Glucose Level 231 H Hematocrit 38.0 #L Hemoglobin 11.9 #L INR International Normalized Ratio 1.14 Indirect Bilirubin 0.1 Lymphocytes # 4.4 H Lymphocytes % 34.5 Mean Corpuscular Hemoglobin 28.8 L Mean Corpuscular Hemoglobin Concent 31.3 L Mean Corpuscular Volume 92.1 Mean Platelet Volume 8.0 Monocytes # 0.3 Monocytes % 2.7 Neutrophils # 7.6 H Neutrophils % 60.0 Nucleated Red Blood Cells # 0.0 Nucleated Red Blood Cells % 0.0 Platelet Count 299 # Potassium Level 4.3 Prothrombin Time 14.6 H Prothrombin Time Ratio 1.1 Red Blood Count 4.12 #L Red Cell Distribution Width 21.2 H Sodium Level 147 H Total Bilirubin 0.1 L Total Protein 7.0 Troponin I 0.024 0.134 *H 0.787 *H White Blood Count 12.6 #H Creatine Kinase 51 Creatine Kinase Index 13.3 Creatinine Kinase MB (Mass) 6.77 H Medications Medications Current Medications Ondansetron HCl (Zofran Inj) 4 mg Q6H PRN IV NAUSEA AND/OR VOMITING; Start at 07:00 Acetaminophen (Tylenol Tab) 650 mg Q6H PRN PO PAIN LEVEL 1-3 OR FEVER; Start at 07:00 Hydralazine HCl (Apresoline) 50 mg BID PO ; Start 12/01/16 at 09:00 Acetaminophen/ Hydrocodone Bitart ([place] (5/325)) 1 tab Q6H PRN PO PAIN; Start 12/01/16 at 12:00 Ropinirole HCl (Requip) 0.5 mg TID PO Last administered on 12/01/16 14:29; Admin Dose 0.5 MG; Start 12/01/16 at 09:00 Zolpidem Tartrate (Ambien) 5 mg HS PO ; Start 12/01/16 at 21:00 Alprazolam (Xanax) 0.25 mg BID PO ; Start 12/01/16 at 09:00 Atorvastatin Calcium (Lipitor) 40 mg HS PO ; Start 12/01/16 at 21:00 Carvedilol (Coreg) 12.5 mg BID PO Last administered on 12/01/16 14:19; Admin Dose 12.5 MG; Start 12/01/16 at 09:00 Nitroglycerin (Nitroglycerin (Sl Tab) 0.4 Mg) 1 tab Q10MIN PRN SL CHEST PAIN; Start 12/01/16 at 08:00 Aspirin (Aspirin) 81 mg HS PO ; Start 12/01/16 at 21:00 Clopidogrel Bisulfate (plaVIX) 75 mg HS PO ; Start 12/01/16 at 21:00 PETR STEVE MD Dec 01, 2016 14:47
[2016-12-01] MEDS: LISINOPRIL 10 MG TAB PO SCH (15:00)
[2016-12-01] MEDS: ALBUTEROL 0.083% (NEB) 2.5 MG/3 ML AMP HHN PRN (16:05)
[2016-12-01] MEDS: ENOXAPARIN 40 MG/0.4 ML SYG SC SCH (16:39)
[2016-12-01] MEDS: SPIRONOLACTONE 50 MG TAB PO SCH (16:40)
[2016-12-01 17:27] LABS: CK-MB 5.95 ng/ml (0.0-2.4)
[2016-12-01 17:37] LABS: TROPONIN-I 0.961 ng/ml (0.00-0.12)
[2016-12-01] MEDS: ZOLPIDEM 5 MG TAB PO SCH (20:20)
[2016-12-01] MEDS: ASPIRIN 81 MG TAB PO SCH (20:21)
[2016-12-01] MEDS: ATORVASTATIN 40 MG TAB PO SCH (20:23)
[2016-12-01] MEDS: CLOPIDOGREL 75 MG TAB PO SCH (20:23)
[2016-12-01] MEDS ORDERED: ATORVASTATIN 20 MG TAB PO SCH (21:00)
[2016-12-02] VITALS (16 sets, daily range): BP systolic 138–190; BP diastolic 63–84; PULSE 65–82; RESP 17–20
[2016-12-02] MEDS ORDERED: DOCUSATE SODIUM 100 MG CAP PO ONE (01:30)
[2016-12-02] MEDS: ROPINIROLE 0.25 MG TAB PO SCH ×3 (04:17→21:14)
[2016-12-02] MEDS: ALBUTEROL 0.083% (NEB) 2.5 MG/3 ML AMP HHN PRN ×4 (07:39→20:37)
--- NOTE | 2016-12-02 07:44 | RADRPT ---
PROCEDURE: XR Chest. CLINICAL INDICATION: Shortness of breath TECHNIQUE: Portable single view of the chest COMPARISON: 12/01/2016 FINDINGS: There has been significant improvement in bilateral lung aeration suggesting improving pulmonary wally ma. Cardiomegaly and calcified aorta are again seen. Small left greater than right pleural effusio ns remain. Right arm vascular stents are again seen. IMPRESSION: Significant improvement in bilateral alveolar edema and improved lung volumes. RPTAT: HLBE Kamryn Anderson Physician Date Time Electronically viewed and signed by Kamryn Anderson Physician on 12/02/2016 07:44 LE/
--- NOTE | 2016-12-02 08:03 | CONS ---
Date/Time of Note Date/Time of Note DATE: 12/02/16 TIME: 07:59 Assessment/Plan Assessment/Plan Problems: (1) SOB (shortness of breath) Comment: much better... will repeat HD today, as f/u CXR still w fluid (2) NSTEMI (non-ST elevated myocardial infarction) Status: Acute Comment: unclear, vs troponin leak due to CHF/stress/ESRD... is hemodynamically stable... will ask Dr Perez to see, who knows him well and has seen him on prior occasions (3) HTN (hypertension) Comment: controlled (4) ESRD (end stage renal disease) on dialysis Comment: will repeat HD today Consultation Date/Type/Reason Admit Date/Time Dec 01, 2016 at 06:35 Initial Consult Date 12/01/16 Type of Consultation: neph 24 HR Interval Summary Free Text/Dictation pt feels markedly better post HD w vigorous UF yesterday Exam/Review of Systems Vital Signs Vitals Vital Signs Date Time Temp Pulse Resp B/P Pulse Ox O2 Delivery O2 Flow Rate FiO2 12/02/16 07:45 80 20 Nasal Cannula 3.0 12/02/16 04:15 97.9 177/78 98 12/01/16 05:35 100 Intake and Output 12/01/16 12/01/16 12/02/16 15:00 23:00 07:00 Intake Total 500 ml 240 ml 900 ml Output Total 4500 ml 0 ml Balance -4000 ml 240 ml 900 ml Exam Constitutional: alert Psych: no complaints Neck: non-tender Respiratory: clear to auscultation Cardiovascular: regular rate and rhythm Extremities: normal pulses (intact AVG) Results Result Diagram: 12/01/16 0501 12/01/16 0501 Results 24 hrs Laboratory Tests Test 12/01/16 08:20 12/01/16 12:20 12/01/16 16:40 Troponin I 0.134 *H 0.787 *H 0.961 *H Creatine Kinase 51 48 Creatine Kinase Index 13.3 12.4 Creatinine Kinase MB (Mass) 6.77 H 5.95 H Medications Medications Current Medications Ondansetron HCl (Zofran Inj) 4 mg Q6H PRN IV NAUSEA AND/OR VOMITING; Start at 07:00 Acetaminophen (Tylenol Tab) 650 mg Q6H PRN PO PAIN LEVEL 1-3 OR FEVER; Start at 07:00 Hydralazine HCl (Apresoline) 50 mg BID PO ; Start 12/01/16 at 09:00 Acetaminophen/ Hydrocodone Bitart ([place] (5/325)) 1 tab Q6H PRN PO PAIN; Start 12/01/16 at 12:00 Ropinirole HCl (Requip) 0.5 mg TID PO Last administered on 12/02/16 04:17; Admin Dose 0.5 MG; Start 12/01/16 at 09:00 Zolpidem Tartrate (Ambien) 5 mg HS PO Last administered on 12/01/16 20:20; Admin Dose 5 MG; Start 12/01/16 at 21:00 Alprazolam (Xanax) 0.25 mg BID PO ; Start 12/01/16 at 09:00 Atorvastatin Calcium (Lipitor) 40 mg HS PO Last administered on 12/01/16 20:23 ; Admin Dose 40 MG; Start 12/01/16 at 21:00 Carvedilol (Coreg) 12.5 mg BID PO Last administered on 12/01/16 14:19; Admin Dose 12.5 MG; Start 12/01/16 at 09:00 Nitroglycerin (Nitroglycerin (Sl Tab) 0.4 Mg) 1 tab Q10MIN PRN SL CHEST PAIN; Start 12/01/16 at 08:00 Aspirin (Aspirin) 81 mg HS PO Last administered on 12/01/16 20:21; Admin Dose 81 MG; Start 12/01/16 at 21:00 Clopidogrel Bisulfate (plaVIX) 75 mg HS PO Last administered on 12/01/16 20:23 ; Admin Dose 75 MG; Start 12/01/16 at 21:00 Lisinopril (Zestril) 10 mg DAILY PO ; Start 12/01/16 at 15:00 Spironolactone (Aldactone) 50 mg DAILY PO Last administered on 12/01/16 16:40 ; Admin Dose 50 MG; Start 12/01/16 at 15:00 Enoxaparin Sodium (Lovenox) 40 mg SC Last administered on 12/01/16 16:39 ; Admin Dose 40 MG; Start 12/01/16 at 17:00; Stop 12/02/16 at 09:01 POP BOYCE MD Dec 02, 2016 08:03
[2016-12-02 08:57] LABS: BASOPHILS % 0.4 % (0.0-2.0); EOSINOPHILS # 0.3 10^3/ul (0.0-0.5); EOSINOPHILS % 6.2 % (0.0-7.0); HEMATOCRIT 31.7 % (42.0-52.0); HEMOGLOBIN 10.2 g/dl (14.0-18.0); LYMPHOCYTES % 25.7 % (15.0-51.0); MEAN CORPUSCULAR HEMOGLOBIN 29.1 pg (29.0-33.0); MEAN CORPUSCULAR HGB CONC 32.1 g/dl (32.0-37.0); MEAN CORPUSCULAR VOLUME 90.6 fl (82.0-101.0); MEAN PLATELET VOLUME 7.4 fl (7.4-10.4); MONOCYTE # 0.3 10^3/ul (0.3-0.9); MONOCYTES % 6.3 % (0.0-11.0); NEUTROPHIL # 2.5 10^3/ul (1.6-7.5); NEUTROPHILS % 61.4 % (39.0-77.0); PLATELET COUNT 169 10^3/UL (140-440); RED CELL DISTRIBUTION WIDTH 20.7 % (11.5-14.5); UNCORRECTED WBC 4.1 10^3/ul (4.8-10.8); WHITE BLOOD COUNT 4.1 10^3/ul (4.8-10.8)
[2016-12-02] MEDS: ALPRAZOLAM 0.25 MG TAB PO SCH ×2 (09:00→21:00)
[2016-12-02] MEDS: LISINOPRIL 10 MG TAB PO SCH (09:00)
[2016-12-02] MEDS: ENOXAPARIN 40 MG/0.4 ML SYG SC SCH (09:00)
[2016-12-02 09:02] LABS: CONDITION 1; LH ANALYZER COMMENTS 1
[2016-12-02] MEDS: SPIRONOLACTONE 50 MG TAB PO SCH (09:36)
[2016-12-02 09:50] LABS: ALBUMIN 3.6 g/dl (3.3-4.9)
[2016-12-02 09:51] LABS: POTASSIUM 4.2 mmol/L (3.5-5.1)
[2016-12-02 09:53] LABS: ALBUMIN/GLOBULIN RATIO 1.2; CREATININE 7.51 mg/dl (0.61-1.24); TOTAL PROTEIN 6.6 g/dl (6.1-8.1)
[2016-12-02 09:54] LABS: CALCIUM 9.5 mg/dl (8.4-10.2)
[2016-12-02] MEDS ORDERED: ENOXAPARIN 40 MG/0.4 ML SYG SC SCH (12:00)
[2016-12-02] MEDS ORDERED: HEPARIN 1000 UNITS/ML 10 ML INJ IV PRN (16:00)
[2016-12-02] MEDS ORDERED: HEPARIN 1000 UNITS/ML 10 ML INJ IV ONE (16:00)
--- NOTE | 2016-12-02 16:24 | CONS ---
Date/Time of Note Date/Time of Note DATE: 12/02/16 TIME: 16:07 Assessment/Plan Assessment/Plan Chief Complaint/Hosp Course ASSESSMENT: 1. Flash pulmonary edema - htn emergency on presentation, now with NSTEMI as well. bp improved, would not add ray/arb given ESRD 2. ICM- LVEF on echo read as 25%, per my review appears 35-40%, Echo study technically difficult. may need another modality for objective assessment. given acute ischemia, would not make assessment of need for ICD until reassessment 40 days post OK i 3. Acute on chronic diastolic+systolic heart failure precipitated by hypertensive crisis. 4. NSTEMI- significant elevation in troponin, c/w with ACS likely triggered by HTN/Hypoxic episode. 5 Chronic renal failure on dialysis failed to prior transplants per history. 6 Hyperlipidemia. 7. CAD- s/p many previous PCI. 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 diffusely diseased small branch of D1. patent lad/Diag stents. distal RCA disease pt with CABG evaluation by Dr. Draper, [facility] but felt that he was high risk with limited benefit. given nstemi will reassess distal RCA lesion and mid LAD given h/o of severe ISR. Impression: - start heparin gtt given trop elevation, d/c 1 hr prior to cath - con asa 81mg daily - cont plavix 75 mg daily - cont coreg, titrate as needed - cont hydralazine/nitrate combo, unable to start ray/cristi r heather given ESRD - plan for [facility] tomorrow, scheduled for 1 pm. d/w patient and Dr. Johnson Problems: Consultation Date/Type/Reason Admit Date/Time Dec 01, 2016 at 06:35 Date of Consultation: Dec 02, 2016 Type of Consultation: Cardiology Reason for Consultation NSTEMI Referring Provider: POP JOHNSON MD Hx of Present Illness Mr. Clemens is a 71 y.o. man with h/o of ICM s/p multiple OK, CAD s/p [address] Son and Dr. Charles, chronic systolic heart failure, HTN, DM2, ESRD on iHD MWF via L AV fistula. Pt with acute onset SOB 213 am. Pt states felt could not catch breath with anxiety, tachpnea. He denies any chest pain or pressure. Pt brought to [facility] and found to be in acute pulm edema/rest distress, started on BIPAP and placed on IV nitro gtt. Pt BP elevated on admission as well. BP improved and pt had dialysis session yesterday with symptoms now resolved. repeat CXR much improved and pt denies any current cp/sob. off bipap, nitro gtt. pt given asa/plavix. Pt denies pnd, orthopnea, edema prior to admit. has chronic sob. no cp at baseline. Pt with uptrend in trop peak around 0.961. pt with recent similar admission last month with sob/htn. low level trop leak c/w demand ischemia at that time. Constitutional: no complaints Eyes: no complaints ENT: no complaints Respiratory: shortness of breath Cardiovascular: no complaints Gastrointestinal: no complaints Genitourinary: no complaints Musculoskeletal: back pain, No swelling Skin: no complaints Neurologic: no complaints Endocrine: no complaints Psychological: no complaints Immunologic: no complaints Past Medical History 1. Cardiac history as mentioned above. 2. Chronic kidney disease, on dialysis. via L arm fistula 3. Hypertension. 4. Hyperlipidemia. 5. Peripheral vascular disease. 6. 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 7. Ischemic cardiomyopathy with moderate systolic dysfunction, chronic systolic heart failure Medical History: angina, congestive heart failure Family History Significant Family History: other (cad) Social History Alcohol Use: none Smoking Status: Never smoker Drug Use: none Exam/Review of Systems Vital Signs Vitals Vital Signs Date Time Temp Pulse Resp B/P Pulse Ox O2 Delivery O2 Flow Rate FiO2 12/02/16 16:01 3.0 12/02/16 13:15 67 18 12/02/16 11:49 Nasal Cannula 12/02/16 11:30 97.7 150/67 100 12/01/16 05:35 100 Intake and Output 12/01/16 12/01/16 12/02/16 15:00 23:00 07:00 Intake Total 500 ml 240 ml 900 ml Output Total 4500 ml 0 ml Balance -4000 ml 240 ml 900 ml Exam Constitutional: alert, oriented, well developed Psych: depression, no complaints Head: atraumatic, normocephalic Eyes: EOMI, nl conjunctiva, nl lids ENMT: nl nasal mucosa & septum, other (poor dentition) Neck: non-tender, supple, No jvd Respiratory: clear to auscultation, normal air movement Cardiovascular: nl pulses, regular rate and rhythm, systolic murmur, No edema, No gallop, No irregular rhythm Gastrointestinal: non-tender, soft Musculoskeletal: nl extremities to inspection Extremities: normal pulses Neurological: LUNCH COOK II-XII intact, nl mental status, nl speech, nl strength Results Result Diagram: 12/02/16 0840 12/02/16 0840 Results 24 hrs Laboratory Tests Test 12/01/16 16:40 12/02/16 08:40 Creatine Kinase 48 Creatine Kinase Index 12.4 Creatinine Kinase MB (Mass) 5.95 H Troponin I 0.961 *H Alanine Aminotransferase (ALT/SGPT) 40 Albumin 3.6 Albumin/Globulin Ratio 1.20 Alkaline Phosphatase 175 H Anion Gap 22 H Aspartate Amino Transf (AST/SGOT) 31 Basophils # 0.0 Basophils % 0.4 Blood Morphology Comment Blood Urea Nitrogen 46 #H Calcium Level 9.5 Carbon Dioxide Level 29 Chloride Level 98 Creatinine 7.51 H Direct Bilirubin 0.00 Eosinophils # 0.3 Eosinophils % 6.2 Globulin 3.00 Glucose Level 92 # Hematocrit 31.7 L Hemoglobin 10.2 L Indirect Bilirubin 0.0 Lymphocytes # 1.0 Lymphocytes % 25.7 Mean Corpuscular Hemoglobin 29.1 Mean Corpuscular Hemoglobin Concent 32.1 Mean Corpuscular Volume 90.6 Mean Platelet Volume 7.4 Monocytes # 0.3 Monocytes % 6.3 Neutrophils # 2.5 Neutrophils % 61.4 Nucleated Red Blood Cells # 0.0 Nucleated Red Blood Cells % 0.0 Platelet Count 169 # Potassium Level 4.2 Red Blood Count 3.50 L Red Cell Distribution Width 20.7 H Sodium Level 145 H Total Bilirubin 0.0 L Total Protein 6.6 White Blood Count 4.1 #L Medications Medications Current Medications Ondansetron HCl (Zofran Inj) 4 mg Q6H PRN IV NAUSEA AND/OR VOMITING; Start at 07:00 Acetaminophen (Tylenol Tab) 650 mg Q6H PRN PO PAIN LEVEL 1-3 OR FEVER; Start at 07:00 Hydralazine HCl (Apresoline) 50 mg BID PO Last administered on 12/02/16t 09:35 ; Admin Dose 50 MG; Start 12/01/16 at 09:00 Acetaminophen/ Hydrocodone Bitart ([place] (5/325)) 1 tab Q6H PRN PO PAIN; Start 12/01/16 at 12:00 Ropinirole HCl (Requip) 0.5 mg TID PO Last administered on 12/02/16 13:35; Admin Dose 0.5 MG; Start 12/01/16 at 09:00 Zolpidem Tartrate (Ambien) 5 mg HS PO Last administered on 12/01/16 20:20; Admin Dose 5 MG; Start 12/01/16 at 21:00 Alprazolam (Xanax) 0.25 mg BID PO ; Start 12/01/16 at 09:00 Atorvastatin Calcium (Lipitor) 40 mg HS PO Last administered on 12/01/16 20:23 ; Admin Dose 40 MG; Start 12/01/16 at 21:00 Carvedilol (Coreg) 12.5 mg BID PO Last administered on 12/02/16 09:36; Admin Dose 12.5 MG; Start 12/01/16 at 09:00 Nitroglycerin (Nitroglycerin (Sl Tab) 0.4 Mg) 1 tab Q10MIN PRN SL CHEST PAIN; Start 12/01/16 at 08:00 Aspirin (Aspirin) 81 mg HS PO Last administered on 12/01/16 20:21; Admin Dose 81 MG; Start 12/01/16 at 21:00 Clopidogrel Bisulfate (plaVIX) 75 mg HS PO Last administered on 12/01/16 20:23 ; Admin Dose 75 MG; Start 12/01/16 at 21:00 Lisinopril (Zestril) 10 mg DAILY PO ; Start 12/01/16 at 15:00 Spironolactone (Aldactone) 50 mg DAILY PO Last administered on 12/02/16 09:36 ; Admin Dose 50 MG; Start 12/01/16 at 15:00 Procedures Procedures EKG reviewed: sinus tachy, LBBB chronic CXR images reviewed improved pulmonary edema. small bilateral effusion SUSANA VASQUEZ Dec 02, 2016 16:19
[2016-12-02] MEDS: ISOSORBIDE MONONITRATE(SR)30 MG TAB PO SCH (17:00)
[2016-12-02] MEDS: ZOLPIDEM 5 MG TAB PO SCH (21:12)
[2016-12-02] MEDS: ASPIRIN 81 MG TAB PO SCH (21:13)
[2016-12-02] MEDS: CLOPIDOGREL 75 MG TAB PO SCH (21:14)
[2016-12-02] MEDS: ATORVASTATIN 40 MG TAB PO SCH (21:14)
[2016-12-02] MEDS: HEPARIN 25000 UNITS/250 ML 250 ML IV SCH (21:19)
[2016-12-03] VITALS (28 sets, daily range): BP systolic 112–174; BP diastolic 50–83; PULSE 63–83; RESP 13–25
[2016-12-03 03:56] LABS: BASOPHILS % 0.5 % (0.0-2.0); EOSINOPHILS # 0.3 10^3/ul (0.0-0.5); EOSINOPHILS % 7.4 % (0.0-7.0); HEMATOCRIT 31.1 % (42.0-52.0); MEAN CORPUSCULAR HEMOGLOBIN 29.2 pg (29.0-33.0); MEAN CORPUSCULAR HGB CONC 32.3 g/dl (32.0-37.0); MEAN CORPUSCULAR VOLUME 90.6 fl (82.0-101.0); MEAN PLATELET VOLUME 7.7 fl (7.4-10.4); MONOCYTE # 0.4 10^3/ul (0.3-0.9); MONOCYTES % 7.4 % (0.0-11.0); NEUTROPHILS % 62.7 % (39.0-77.0); PLATELET COUNT 161 10^3/UL (140-440); RED BLOOD COUNT 3.43 10^6/ul (4.70-6.10); RED CELL DISTRIBUTION WIDTH 20.9 % (11.5-14.5); UNCORRECTED WBC 4.7 10^3/ul (4.8-10.8); WHITE BLOOD COUNT 4.7 10^3/ul (4.8-10.8)
[2016-12-03 04:01] LABS: CONDITION 1; LH ANALYZER COMMENTS 1
[2016-12-03 04:10] LABS: ALBUMIN 3.6 g/dl (3.3-4.9)
[2016-12-03 04:12] LABS: CREATININE 9.05 mg/dl (0.61-1.24)
[2016-12-03 04:13] LABS: ALBUMIN/GLOBULIN RATIO 1.24; TOTAL PROTEIN 6.5 g/dl (6.1-8.1)
[2016-12-03 04:14] LABS: CALCIUM 9.5 mg/dl (8.4-10.2)
[2016-12-03] MEDS: HEPARIN 25000 UNITS/250 ML 250 ML IV SCH (04:30)
--- NOTE | 2016-12-03 07:19 | CONS ---
Date/Time of Note Date/Time of Note DATE: 12/03/16 TIME: 07:17 Assessment/Plan Assessment/Plan Problems: (1) NSTEMI (non-ST elevated myocardial infarction) Status: Acute Comment: for angio today... asx now... think most sxs were do to xs fluid, but we shall see (2) HTN (hypertension) Comment: good control (3) ESRD (end stage renal disease) on dialysis Comment: HD post cath today Consultation Date/Type/Reason Admit Date/Time Dec 01, 2016 at 06:35 Initial Consult Date 12/01/16 Type of Consultation: neph Referring Provider: POP BOYCE MD 24 HR Interval Summary Free Text/Dictation feels good... no sob or cp... for coronary angio this afternoon Exam/Review of Systems Vital Signs Vitals Vital Signs Date Time Temp Pulse Resp B/P Pulse Ox O2 Delivery O2 Flow Rate FiO2 12/03/16 04:25 66 12/03/16 04:16 3.0 12/03/16 04:04 97.6 18 157/71 100 12/02/16 20:38 Nasal Cannula 12/01/16 05:35 100 Intake and Output 12/02/16 12/02/16 12/03/16 15:00 23:00 07:00 Intake Total 500 ml 875 ml 595 ml Output Total 2800 ml 2800 ml 0 ml Balance -2300 ml -1925 ml 595 ml Exam Constitutional: alert Psych: no complaints Neck: supple Respiratory: clear to auscultation Cardiovascular: regular rate and rhythm Extremities: normal pulses Results Result Diagram: 12/03/16 0333 12/03/16 0333 Results 24 hrs Laboratory Tests Test 12/02/16 08:40 12/02/16 18:30 12/03/16 03:33 Alanine Aminotransferase (ALT/SGPT) 40 31 Albumin 3.6 3.6 Albumin/Globulin Ratio 1.20 1.24 Alkaline Phosphatase 175 H 161 H Anion Gap 22 H 22 H Aspartate Amino Transf (AST/SGOT) 31 23 Basophils # 0.0 0.0 Basophils % 0.4 0.5 Blood Morphology Comment Blood Urea Nitrogen 46 #H 60 H Calcium Level 9.5 9.5 Carbon Dioxide Level 29 30 Chloride Level 98 97 Creatinine 7.51 H 9.05 H Direct Bilirubin 0.00 0.00 Eosinophils # 0.3 0.3 Eosinophils % 6.2 7.4 H Globulin 3.00 2.90 Glucose Level 92 # 116 Hematocrit 31.7 L 31.1 L Hemoglobin 10.2 L 10.0 L Indirect Bilirubin 0.0 0.0 Lymphocytes # 1.0 1.0 Lymphocytes % 25.7 22.0 Mean Corpuscular Hemoglobin 29.1 29.2 Mean Corpuscular Hemoglobin Concent 32.1 32.3 Mean Corpuscular Volume 90.6 90.6 Mean Platelet Volume 7.4 7.7 Monocytes # 0.3 0.4 Monocytes % 6.3 7.4 Neutrophils # 2.5 3.0 Neutrophils % 61.4 62.7 Nucleated Red Blood Cells # 0.0 0.0 Nucleated Red Blood Cells % 0.0 0.0 Platelet Count 169 # 161 Potassium Level 4.2 4.0 Red Blood Count 3.50 L 3.43 L Red Cell Distribution Width 20.7 H 20.9 H Sodium Level 145 H 145 H Total Bilirubin 0.0 L 0.0 L Total Protein 6.6 6.5 White Blood Count 4.1 #L 4.7 L Activated Partial Thromboplast Time 42.2 H 72.7 *H Medications Medications Current Medications Ondansetron HCl (Zofran Inj) 4 mg Q6H PRN IV NAUSEA AND/OR VOMITING; Start at 07:00 Acetaminophen (Tylenol Tab) 650 mg Q6H PRN PO PAIN LEVEL 1-3 OR FEVER; Start at 07:00 Acetaminophen/ Hydrocodone Bitart ([place] (5/325)) 1 tab Q6H PRN PO PAIN; Start 12/01/16 at 12:00 Ropinirole HCl (Requip) 0.5 mg TID PO Last administered on 12/02/16 21:14; Admin Dose 0.5 MG; Start 12/01/16 at 09:00 Zolpidem Tartrate (Ambien) 5 mg HS PO Last administered on 12/02/16 21:12; Admin Dose 5 MG; Start 12/01/16 at 21:00 Alprazolam (Xanax) 0.25 mg BID PO ; Start 12/01/16 at 09:00 Atorvastatin Calcium (Lipitor) 40 mg HS PO Last administered on 2/14/17at 21:14 ; Admin Dose 40 MG; Start 12/01/16 at 21:00 Carvedilol (Coreg) 12.5 mg BID PO Last administered on 12/02/16 21:14; Admin Dose 12.5 MG; Start 12/01/16 at 09:00 Nitroglycerin (Nitroglycerin (Sl Tab) 0.4 Mg) 1 tab Q10MIN PRN SL CHEST PAIN; Start 12/01/16 at 08:00 Aspirin (Aspirin) 81 mg HS PO Last administered on 12/02/16 21:13; Admin Dose 81 MG; Start 12/01/16 at 21:00 Clopidogrel Bisulfate (plaVIX) 75 mg HS PO Last administered on 12/02/16 21:14 ; Admin Dose 75 MG; Start 12/01/16 at 21:00 Isosorbide Mononitrate (Imdur) 30 mg DAILY PO ; Start 12/02/16 at 17:00 Hydralazine HCl (Apresoline) 50 mg TID PO ; Start 12/02/16 at 21:00 POP BOYCE MD Dec 03, 2016 07:19
[2016-12-03] MEDS: ISOSORBIDE MONONITRATE(SR)30 MG TAB PO SCH (08:08)
[2016-12-03] MEDS: ROPINIROLE 0.25 MG TAB PO SCH ×3 (08:10→21:13)
[2016-12-03] MEDS: ALPRAZOLAM 0.25 MG TAB PO SCH ×2 (08:11→21:15)
[2016-12-03] MEDS: ALBUTEROL 0.083% (NEB) 2.5 MG/3 ML AMP HHN PRN ×2 (09:26→20:07)
[2016-12-03] MEDS ORDERED: LIDOCAINE 1% (MDV) 20 ML INJ ONE (13:15)
[2016-12-03] MEDS ORDERED: IODIXANOL LOCM 100 ML BTL ONE ×2 (13:15→15:47)
[2016-12-03] MEDS ORDERED: MIDAZOLAM 1 MG/ML 2 ML INJ ONE ×2 (13:16→15:26)
[2016-12-03] MEDS ORDERED: FENTAnyl 50 MCG/ML VIAL ONE ×2 (13:17→15:27)
--- NOTE | 2016-12-03 14:51 | RADRPT ---
Vent Rate: 71 bpm RR Interval: 0 msec ND Interval: 172 msec QRS Duration: 102 msec QT Interval: 424 msec QTC Interval: 460 msec P-R-T [place]: 57 - 23 - 84 degrees Normal sinus rhythm Possible Left atrial enlargement Nonspecific ST and T wave abnormality Prolonged QT Abnormal ECG Electronically Signed By: Gian Carrillo [id number]
[2016-12-03] MEDS ORDERED: HEPARIN 1000 UNITS/ML 10 ML INJ ONE (14:55)
[2016-12-03] MEDS ORDERED: ADENOSINE 90 MG in SOD CHLORIDE 0.9% 90 ML IV SCH (15:00)
[2016-12-03] MEDS ORDERED: ASPIRIN 81 MG TAB ONE (15:24)
[2016-12-03] MEDS ORDERED: NITROGLYCERIN (IC) 100 MCG/ML INJ ONE (15:25)
[2016-12-03] MEDS ORDERED: CLOPIDOGREL 300 MG TAB ONE (15:25)
[2016-12-03] MEDS ORDERED: IOHEXOL 350MG/ML 50 ML BTL ONE (15:25)
[2016-12-03] MEDS ORDERED: ONDANSETRON 4 MG INJ ONE (15:53)
--- NOTE | 2016-12-03 16:55 | CONS ---
Date/Time of Note Date/Time of Note DATE: 12/03/16 TIME: 16:52 Assessment/Plan Assessment/Plan Chief Complaint/Hosp Course ASSESSMENT: 1. Flash pulmonary edema - htn emergency on presentation, now with NSTEMI as well. bp improved, would not add ray/arb given ESRD 2. ICM- LVEF on echo read as 25%, per my review appears 35-40%, Echo study technically difficult. LV gram lvef with global hypokinesis lvef 35-40% 3. Acute on chronic diastolic+systolic heart failure precipitated by hypertensive crisis. 4. NSTEMI- significant elevation in troponin, c/w with ACS likely triggered by HTN/Hypoxic episode. FFR + 0.73 of distal RCA s/p PCI now with ANURAG x1 via R femoral access 5 Chronic renal failure on dialysis failed to prior transplants per history. 6 Hyperlipidemia. 7. CAD- s/p many previous PCI. 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 diffusely diseased small branch of D1. patent lad/Diag stents. distal RCA disease pt with CABG evaluation by Dr. Draper, [facility] but felt that he was high risk with limited benefit. Distal RCA with FFR abnl, s/p PCI with ANURAG x 1 Impression: - d/c heparin - con asa 81mg daily - cont plavix 75 mg daily - cont coreg, titrate as needed - cont hydralazine/nitrate combo, unable to start ray/cristi r heather given ESRD. pt aware he should not refuse med - monitor in icu overnight for bleeding, arrhythmia, stent issues - refer to cardiac rehab after d/c d/w Dr. Boyce Problems: Consultation Date/Type/Reason Admit Date/Time Dec 01, 2016 at 06:35 Initial Consult Date 12/02/16 Type of Consultation: Cardiology Referring Provider: POP BOYCE MD 24 HR Interval Summary Free Text/Dictation pt s/p cath this afternoon. denies any chest pain overnight. stable sob with dry cough. no n/v, diaphoresis tele reviewed: intermittent lbbb, nsr, no events Detailed Summary Eyes: no complaints ENT: no complaints Respiratory: shortness of breath Cardiovascular: no complaints Gastrointestinal: no complaints Exam/Review of Systems Vital Signs Vitals Vital Signs Date Time Temp Pulse Resp B/P Pulse Ox O2 Delivery O2 Flow Rate FiO2 12/03/16 12:11 68 12/03/16 11:12 98.0 18 174/75 99 12/03/16 09:26 Nasal Cannula 3.0 12/01/16 05:35 100 Intake and Output 12/02/16 12/02/16 12/03/16 15:00 23:00 07:00 Intake Total 500 ml 875 ml 595 ml Output Total 2800 ml 2800 ml 0 ml Balance -2300 ml -1925 ml 595 ml Exam Constitutional: alert, oriented, well developed Psych: depression, no complaints Head: atraumatic, normocephalic Eyes: EOMI, nl conjunctiva, nl lids ENMT: nl nasal mucosa & septum, other (poor dentition) Neck: non-tender, supple, No jvd Respiratory: clear to auscultation, normal air movement Cardiovascular: nl pulses, regular rate and rhythm, systolic murmur, No edema, No gallop, No irregular rhythm Gastrointestinal: non-tender, soft Musculoskeletal: nl extremities to inspection Extremities: normal pulses Neurological: WIRE STRIPPER II-XII intact, nl mental status, nl speech, nl strength Results Result Diagram: 12/03/16 0333 12/03/16 0333 Results 24 hrs Laboratory Tests Test 12/02/16 18:30 12/03/16 03:33 12/03/16 10:00 Activated Partial Thromboplast Time 42.2 H 72.7 *H 53.6 H Alanine Aminotransferase (ALT/SGPT) 31 Albumin 3.6 Albumin/Globulin Ratio 1.24 Alkaline Phosphatase 161 H Anion Gap 22 H Aspartate Amino Transf (AST/SGOT) 23 Basophils # 0.0 Basophils % 0.5 Blood Morphology Comment Blood Urea Nitrogen 60 H Calcium Level 9.5 Carbon Dioxide Level 30 Chloride Level 97 Creatinine 9.05 H Direct Bilirubin 0.00 Eosinophils # 0.3 Eosinophils % 7.4 H Globulin 2.90 Glucose Level 116 Hematocrit 31.1 L Hemoglobin 10.0 L Indirect Bilirubin 0.0 Lymphocytes # 1.0 Lymphocytes % 22.0 Mean Corpuscular Hemoglobin 29.2 Mean Corpuscular Hemoglobin Concent 32.3 Mean Corpuscular Volume 90.6 Mean Platelet Volume 7.7 Monocytes # 0.4 Monocytes % 7.4 Neutrophils # 3.0 Neutrophils % 62.7 Nucleated Red Blood Cells # 0.0 Nucleated Red Blood Cells % 0.0 Platelet Count 161 Potassium Level 4.0 Red Blood Count 3.43 L Red Cell Distribution Width 20.9 H Sodium Level 145 H Total Bilirubin 0.0 L Total Protein 6.5 White Blood Count 4.7 L Medications Medications Current Medications Ondansetron HCl (Zofran Inj) 4 mg Q6H PRN IV NAUSEA AND/OR VOMITING; Start at 07:00 Acetaminophen (Tylenol Tab) 650 mg Q6H PRN PO PAIN LEVEL 1-3 OR FEVER; Start at 07:00 Acetaminophen/ Hydrocodone Bitart ([place] (5/325)) 1 tab Q6H PRN PO PAIN; Start 12/01/16 at 12:00 Ropinirole HCl (Requip) 0.5 mg TID PO Last administered on 12/03/16 08:10; Admin Dose 0.5 MG; Start 12/01/16 at 09:00 Zolpidem Tartrate (Ambien) 5 mg HS PO Last administered on 12/02/16 21:12; Admin Dose 5 MG; Start 12/01/16 at 21:00 Alprazolam (Xanax) 0.25 mg BID PO ; Start 12/01/16 at 09:00 Atorvastatin Calcium (Lipitor) 40 mg HS PO Last administered on 12/02/16 21:14 ; Admin Dose 40 MG; Start 12/01/16 at 21:00 Carvedilol (Coreg) 12.5 mg BID PO Last administered on 12/03/16 08:10; Admin Dose 12.5 MG; Start 12/01/16 at 09:00 Nitroglycerin (Nitroglycerin (Sl Tab) 0.4 Mg) 1 tab Q10MIN PRN SL CHEST PAIN; Start 12/01/16 at 08:00 Aspirin (Aspirin) 81 mg HS PO Last administered on 12/02/16 21:13; Admin Dose 81 MG; Start 12/01/16 at 21:00 Clopidogrel Bisulfate (plaVIX) 75 mg HS PO Last administered on 12/02/16 21:14 ; Admin Dose 75 MG; Start 12/01/16 at 21:00 Isosorbide Mononitrate (Imdur) 30 mg DAILY PO ; Start 12/02/16 at 17:00 Hydralazine HCl (Apresoline) 50 mg TID PO ; Start 12/02/16 at 21:00 Docusate Sodium 250 mg 250 mg QHS PO ; Start 12/03/16 at 21:00 Adenosine/Sodium Chloride (Adenoscan/NS) 90 ml @ 0 mls/hr INTRA-PROCEDURE IV ; Start 12/03/16 at 15:00; Stop 12/03/16 at 18:00 SUSANA VASQUEZ Dec 03, 2016 16:55
[2016-12-03] MEDS ORDERED: OXYCODONE/ACETAMINOPHEN (5/325) TAB PO PRN (17:00)
[2016-12-03] MEDS ORDERED: AL HYDROX/MG HYDROX/SIMETH 30 ML CUP PO PRN (17:00)
[2016-12-03] MEDS ORDERED: ONDANSETRON 4 MG INJ IV PRN (17:00)
--- NOTE | 2016-12-03 19:05 | OPR ---
DATE OF OPERATION: 12/03/2016 PROCEDURE PERFORMED 1. Left heart catheterization. 2. Fractional flow reserve study of the distal right coronary artery. 3. Percutaneous coronary intervention of distal right coronary artery with drug-eluting stent x1. PROCEDURE DESCRIPTION: Demonstration of moderate sedation, total of 122 minutes. I administered se dation while the patient's hemodynamics and respiratory status were monitored by nurse, Gian connors. PREOPERATIVE DIAGNOSES: 1. Non-ST myocardial infarction. 2. Ischemic cardiomyopathy. 3. Coronary artery disease, status post multiple percutaneous coronary interventions. 4. End-stage renal disease on intermittent hemodialysis. POSTOPERATIVE DIAGNOSES: 1. Non-ST elevation myocardial infarction. 2. Coronary artery disease, multivessel. 3. Ischemic cardiomyopathy with estimated left ventricular ejection fraction of 35% to 40%. 4. Positive FFR study of the distal RCA 0.73 status post percutaneous coronary intervention with dr ug-eluting stent x1. WINE STEWARD/STEWARDESS: Christopher Perez MD PRIMARY CARE PHYSICIAN: Steven Johnson MD HISTORY: Mr. Clemens is a pleasant 71-year-old man with extensive history of coronary artery disease in addition to diabetes, hypertension, end-stage renal disease on intermittent hemodialysis and isc hemic cardiomyopathy. Patient has multiple PCIs by Dr. Charles as well as Dr. Umesh Son at [facility]. Most recent intervention was PTCA of the mid LVD stent restenosis. The patient has had multiple readmissions over the last year to 2 years with non-ST elevation myocardial infarction and/or heart failure with hypertensive disease. The patient now presenting again with hypertension and shortness of breath and found to have a non-ST elevation myocardial infarction with peak tropon in of 0.9. Given ____ recommendation will be to obtain left heart catheterization, possible PCI. T he patient aware of all risks and benefits of procedure and agrees to proceed. PROCEDURE DESCRIPTION: Right groin was prepped and draped in usual sterile fashion and anesthetized with 1% lidocaine solution. A 6-Ugandan sheath was placed in the right femoral artery without diffi culty using modified Seldinger technique under ultrasound guidance. Right femoral angiogram was obt ained showing proper sheath placement in the right mid common femoral artery. A 6-Ugandan JL4 StreamOceano stic catheter was advanced to the ascending aorta over a wire and cineangiography was performed of t he left anterior descending artery in diagonal views. Catheter was exchanged for a 6-Ugandan JR4 amy gnostic catheter which was used to engage the right coronary artery and cineangiography was performe d in multiple orthogonal views. Catheter was then exchanged for a 6-Ugandan pigtail catheter which w as advanced to the left ventricle and pressures were obtained and left ventriculogram was obtained. Catheter was flushed and pullback and pressures were obtained. Given distal right coronary artery disease, decision was made to proceed with FFR study to distal RCA to determine if intervention was warranted. The patient was given Heparin, aspirin and Plavix and ACT was checked and confirmed to b e in therapeutic range. FFR study description: The pigtail catheter was removed and exchanged for a 6-Ugandan JR4 guiding ca theter. A volcano wire was then advanced to the distal right coronary artery and FFR study was perf ormed with the lowest value of 0.87. Angiogram was obtained showing, however, that the transducer w as now passed the area of lesion in the distal right coronary artery. The wire was then advanced fu rther into the right posterior descending artery and repeat FFR study was performed using IV adenosi ne 140 mcg/kg per minute for 2 minutes. Lowest FFR value was then obtained of 0.73. The FFR wire w as then pulled back passed the distal RCA lesion showing a drop to 0.93 indicating that this distal right coronary lesion was significant and likely culprit for recurrent NSTEMI, causing the majority of ischemia in this distribution. PERCUTANEOUS CORONARY INTERVENTION DESCRIPTION: The patient was given additional IV heparin and ACT was rechecked and confirmed to be in therapeutic range. A 185 cm 0.014 inch PT extra support wire was then advanced to the distal right PDA without difficulty. The volcano wire was removed. Initia lly, a 2.0 x 12 mm Emerge balloon was used for support for advancing the coronary wire; however, thi s was exchanged for a 1.2 x 8 mm compliant balloon to help reached distal RCA. The balloon was adva nced to the distal right coronary artery and inflated. This was exchanged for a 2.0 x 12 mm balloon ; however, this would not pass the mid stent; therefore, the balloon was removed and exchanged for a 6-Ugandan GuideLiner catheter which was advanced to the distal portion of the guide. A 2.0 x 12 mm balloon was then advanced over the guidewire and guidewire was advanced to the mid RCA and a 2.0 bal loon was then advanced; however, there was difficulty crossing the wire and GuideLiner were removed from the coronary artery as well as the balloon. At this point, I decided to remove all catheters and wires from the body and then exchanged the guide for a 6-Ugandan JL 0.75 guiding catheter for sup port. This was used to engage the right coronary. A 0.014 inch 185 cm coronary PT moderate support wire was then advanced to the distal RPDA. The GuideLiner was then advanced over the PT wire and t he 2.0 x 12 mm balloon was then advanced to the RPDA vessel and inflated serially. This was removed and exchanged for a 2.5 x 15 mm Alpine Xience drug-eluting stent which would not advance past the d istal RCA lesion. This was then removed and the 2.0 x 12 mm balloon was then readvanced to the dist al RCA lesion and inflated serially to high pressure. This was removed and then exchanged again for the 2.5 x 15 mm Xience Alpine drug-eluting stent which was deployed at the distal RCA to high press ure. The stent balloon was removed and exchanged for a noncompliant 2.75 x 8 mm balloon which was i nflated within the stent x2 to high pressure. NC balloon was removed and repeat angiograms were obt ained after IC nitroglycerin given. It showed good stent apposition and expansion, as well as no ev idence of complication such as perforation or distal embolization or dissection. All catheters and wires were then removed. The patient tolerated the procedure well and was without any chest pain at completion of procedure. Hemostasis was obtained of the right femoral artery using an Angio-Seal 6 -Ugandan VIP device successfully. Estimated blood loss was less than 50 mL. No specimens were obtai nikolay: HEMODYNAMICS: LVEDP was 19 mmHg. No significant gradient on LVEDP on pullback. FINDINGS: 1. Left main coronary artery: This is a large vessel with previous stent extending to the proximal portion of the vessel. The stent is widely patent without any significant in-stent restenosis. 2. Left anterior descending artery: This is a large wrap around vessel. There is a previously ora estephanie overlapping stents extending from the left main to the proximal LAD to the mid LAD. The stents are widely patent with mild in-stent restenosis at the distal portion of the mid LAD stent. This is approximate 30%. The mid to distal LAD has minimal luminal irregularities. The distal vessel also has a 20% to 30% lesion. The first diagonal is a very large branch that extends laterally. There are patent stents in the proximal/ ostial portion of the stent extending to the mid portion of the s tent. There is 20% to 30% in-stent restenosis in the mid portion of the stent. There is an inferio r branch which is jailed by the diagonal stent and has severe diffuse disease in multiple areas with heavy calcification. It is a small vessel, about 1 mm to 1.5 mm in size. 3. Right coronary artery: Dominant vessel. Proximal RCA has a mild diffuse disease in the outflow proximal portion. At the distal subsection of the proximal RCA, there is a stent which is 20% to 3 0% restenosis, otherwise patent. There is overlapping stents explained to the distal portion of the mid RCA as well. In the middle of this area of the overlapping stents, there is a 50% in-stent res tenosis. The mid to distal RCA has area of diffuse disease approximately 40% to 50%. Then there is a 70% lesion prior to the bifurcation in the right posterolateral as well as RPDA vessels. The RPL vessel is a small branch with significant disease in the distal portion. The RPDA is an intermedia te size branch with mild luminal irregularities. 4. Left circumflex artery is chronically occluded in the ostium. It is a nondominant branch. The distal left circumflex as well OM1 and OM2 branches fill via right to left collaterals. 5. Stenosis. There appears to be a right posterolateral branch or RV branch that is filling via le ft to right collaterals as well. PERCUTANEOUS CORONARY INTERVENTION LESION DESCRIPTION: FFR study of the distal right coronary artery 0.73 with pullback to cross the lesion of 0.93 indicating significant distal right coronary lesion. 1. Status post percutaneous coronary intervention with Alpine 2.5 x 15 mm drug-eluting stent x1., post-dilated with a 2.75 x 8 mm NC balloon in mid portion. Prestenosis is 70%, poststenosis 0%. Pr e-KRISTIN flow 3, post-KRISTIN flow 3 CONCLUSIONS: 1. Multivessel coronary artery disease with patent stents in the left anterior descending as well a s right coronary artery and diagonal vessels with KRISTIN 3 flow. Mild to moderate in-stent restenosis . Chronically occluded ostial left circumflex artery filling distally via right to left collaterals . Significant distal right coronary artery disease with abnormal FFR study. Status post successful percutaneous coronary intervention with drug-eluting stent x1. 2. Moderate LV systolic dysfunction with global hypokinesis on left ventriculogram, estimated eject ion fraction of 35% to 40%. RECOMMENDATIONS: 1. Aspirin 81 mg p.o. daily. 2. Plavix 75 mg p.o. daily for a minimum of 12 months. Given NSTEMI and given multiple vessel javier scularization with multiple overlapping stents, I would recommend lifelong therapy unless contraindi cated. 3. Continued maximal medical therapy for ischemic cardiomyopathy/heart failure. 4. Continue intensive therapy for hypertension which has been uncontrolled. 5. Postop monitoring in ICU for right groin complications, arrhythmia and stent complications. 6. Outpatient cardiac rehabilitation recommended. Dictated By: CHRISTOPHER LEE/RAYA Conf#: [id number] DID#: [id number]
[2016-12-03] MEDS ORDERED: NITROGLYCERIN AEROSOL (4.9 GM) SL PRN (20:00)
[2016-12-03] MEDS: ZOLPIDEM 5 MG TAB PO SCH (21:11)
[2016-12-03] MEDS: ASPIRIN 81 MG TAB PO SCH (21:12)
[2016-12-03] MEDS: CLOPIDOGREL 75 MG TAB PO SCH (21:13)
[2016-12-03] MEDS: ATORVASTATIN 40 MG TAB PO SCH (21:13)
[2016-12-03] MEDS: DOCUSATE SODIUM 250 MG CAP PO SCH (22:14)
[2016-12-04] VITALS (35 sets, daily range): BP systolic 110–168; BP diastolic 40–118; PULSE 63–84; RESP 11–23
[2016-12-04] MEDS ORDERED: morphine 2 MG INJ IV PRN (03:30)
[2016-12-04] MEDS ORDERED: ESOMEPRAZOLE 40 MG PO SCH (06:00)
[2016-12-04] MEDS: ALBUTEROL 0.083% (NEB) 2.5 MG/3 ML AMP HHN PRN ×2 (06:31→22:53)
[2016-12-04 06:38] LABS: BASOPHILS % 0.3 % (0.0-2.0); EOSINOPHILS # 0.3 10^3/ul (0.0-0.5); EOSINOPHILS % 6.8 % (0.0-7.0); HEMATOCRIT 28.9 % (42.0-52.0); HEMOGLOBIN 9.4 g/dl (14.0-18.0); LYMPHOCYTES # 0.7 10^3/ul (0.8-2.9); LYMPHOCYTES % 16.3 % (15.0-51.0); MEAN CORPUSCULAR HEMOGLOBIN 29.2 pg (29.0-33.0); MEAN CORPUSCULAR HGB CONC 32.5 g/dl (32.0-37.0); MEAN CORPUSCULAR VOLUME 89.9 fl (82.0-101.0); MEAN PLATELET VOLUME 7.4 fl (7.4-10.4); MONOCYTE # 0.3 10^3/ul (0.3-0.9); NEUTROPHIL # 3.1 10^3/ul (1.6-7.5); NEUTROPHILS % 69.6 % (39.0-77.0); PLATELET COUNT 144 10^3/UL (140-440); RED BLOOD COUNT 3.21 10^6/ul (4.70-6.10); RED CELL DISTRIBUTION WIDTH 20.1 % (11.5-14.5); UNCORRECTED WBC 4.4 10^3/ul (4.8-10.8); WHITE BLOOD COUNT 4.4 10^3/ul (4.8-10.8)
[2016-12-04 06:49] LABS: CONDITION 1; LH ANALYZER COMMENTS 1
--- NOTE | 2016-12-04 08:11 | CONS ---
Date/Time of Note Date/Time of Note DATE: 12/04/16 TIME: 08:08 Assessment/Plan Assessment/Plan Problems: (1) NSTEMI (non-ST elevated myocardial infarction) Status: Acute Comment: s/p angio yesterday w PCI/stent RCA yesterday by Dr Perez (2) Chest pain Status: Acute Comment: sounds more like GI... will add PPI, but recheck troponin as well...get EKG...cards f/u (3) ESRD (end stage renal disease) on dialysis Comment: for HD today Consultation Date/Type/Reason Admit Date/Time Dec 01, 2016 at 06:35 Initial Consult Date 12/01/16 Type of Consultation: neph Referring Provider: POP BOYCE MD 24 HR Interval Summary Free Text/Dictation episodic chest discomfort duing the night... cardiology not called despite my suggestion Exam/Review of Systems Vital Signs Vitals Vital Signs Date Time Temp Pulse Resp B/P Pulse Ox O2 Delivery O2 Flow Rate FiO2 12/04/16 06:45 69 20 100 2.0 28 12/04/16 06:00 164/77 12/04/16 04:00 97.7 12/03/16 20:00 Nasal Cannula Intake and Output 12/03/16 12/03/16 12/04/16 15:00 23:00 07:00 Intake Total 120 ml 500 ml 240 ml Output Total 813 ml 0 ml Balance 120 ml -313 ml 240 ml Exam Constitutional: alert, oriented Respiratory: clear to auscultation Cardiovascular: regular rate and rhythm Extremities: normal pulses (fxn AVG) Results Result Diagram: 12/04/16 0600 12/03/16 0333 Results 24 hrs Laboratory Tests Test 12/03/16 10:00 12/04/16 06:00 Activated Partial Thromboplast Time 53.6 H Basophils # 0.0 Basophils % 0.3 Blood Morphology Comment Eosinophils # 0.3 Eosinophils % 6.8 Hematocrit 28.9 L Hemoglobin 9.4 L Lymphocytes # 0.7 L Lymphocytes % 16.3 Mean Corpuscular Hemoglobin 29.2 Mean Corpuscular Hemoglobin Concent 32.5 Mean Corpuscular Volume 89.9 Mean Platelet Volume 7.4 Monocytes # 0.3 Monocytes % 7.0 Neutrophils # 3.1 Neutrophils % 69.6 Nucleated Red Blood Cells # 0.0 Nucleated Red Blood Cells % 0.0 Platelet Count 144 Red Blood Count 3.21 L Red Cell Distribution Width 20.1 H White Blood Count 4.4 L Medications Medications Current Medications Acetaminophen (Tylenol Tab) 650 mg Q6H PRN PO PAIN LEVEL 1-3 OR FEVER; Start at 07:00 Acetaminophen/ Hydrocodone Bitart ([place] (5/325)) 1 tab Q6H PRN PO PAIN Last administered on 12/04/16 03:47; Admin Dose 1 TAB; Start 12/01/16 at 12:00 Ropinirole HCl (Requip) 0.5 mg TID PO Last administered on 12/03/16 21:13; Admin Dose 0.5 MG; Start 12/01/16 at 09:00 Zolpidem Tartrate (Ambien) 5 mg HS PO Last administered on 12/03/16 21:11; Admin Dose 5 MG; Start 12/01/16 at 21:00 Alprazolam (Xanax) 0.25 mg BID PO Last administered on 12/03/16 21:15; Admin Dose 0.25 MG; Start 12/01/16 at 09:00 Atorvastatin Calcium (Lipitor) 40 mg HS PO Last administered on 12/03/16 21:13 ; Admin Dose 40 MG; Start 12/01/16 at 21:00 Carvedilol (Coreg) 12.5 mg BID PO Last administered on 12/03/16 21:14; Admin Dose 12.5 MG; Start 12/01/16 at 09:00 Nitroglycerin (Nitroglycerin (Sl Tab) 0.4 Mg) 1 tab Q10MIN PRN SL CHEST PAIN; Start 12/01/16 at 08:00 Aspirin (Aspirin) 81 mg HS PO Last administered on 12/03/16 21:12; Admin Dose 81 MG; Start 12/01/16 at 21:00 Clopidogrel Bisulfate (plaVIX) 75 mg HS PO Last administered on 12/03/16 21:13 ; Admin Dose 75 MG; Start 12/01/16 at 21:00 Isosorbide Mononitrate (Imdur) 30 mg DAILY PO ; Start 12/02/16 at 17:00 Hydralazine HCl (Apresoline) 50 mg TID PO ; Start 12/02/16 at 21:00 Docusate Sodium (Colace) 250 mg QHS PO Last administered on 12/03/16 22:14; Admin Dose 250 MG; Start 12/03/16 at 21:00 Miscellaneous Information (* Miscellaneous Pharmacy Order) Hold all Metformin ... ONCE XX ; Start 12/03/16 at 17:00; Stop 12/05/16 at 16:59 Oxycodone/ Acetaminophen (Percocet (5/ 325)) 1 tab Q4H PRN PO REPORTED NON- CARDIAC PAIN 4-7; Start 12/03/16 at 17:00 Al Hydrox/Mg Hydrox/Simethicone (Mag-Al Plus) 30 ml Q4H PRN PO GASTROINTESTINAL UPSET Last administered on 12/03/16 18:36; Admin Dose 30 ML; Start 12/03/16 at 17:00 Ondansetron HCl (Zofran Inj) 4 mg Q4H PRN IV NAUSEA AND/OR VOMITING; Start at 17:00 Nitroglycerin (Nitroglycerin ([place])) 2 spray Q5M PRN SL ANGINA; Start at 20:00 Patient Own Medication 1 ea DAILY@06 PO ; Start 12/04/16 at 06:00; Status UNV Morphine Sulfate (morphine) 2 mg Q6H PRN IV PAIN LEVEL 6-10; Start 12/04/16 at 03:30 POP BOYCE MD Dec 04, 2016 08:11
[2016-12-04] MEDS: ALPRAZOLAM 0.25 MG TAB PO SCH ×2 (09:00→21:00)
[2016-12-04] MEDS: ISOSORBIDE MONONITRATE(SR)30 MG TAB PO SCH ×2 (09:00→21:00)
--- NOTE | 2016-12-04 09:13 | RADRPT ---
PROCEDURE: XR Chest. CLINICAL INDICATION: Shortness of breath TECHNIQUE: Single frontal view of the chest was obtained. COMPARISON: 12/02/2016 FINDINGS: The heart is within normal limits. The thoracic aorta is calcified. The lungs are clear. There is no pleural effusion or pneumothorax. There is a vascular stent in the right upper arm. RPTAT: AA IMPRESSION: Clear lungs. Calcified aorta consistent with atherosclerotic disease. .Quentin Reyna MD, MD Date Time Electronically viewed and signed by .Quentin Reyna MD, on 12/04/2016 09:13 .S/
[2016-12-04] MEDS: PANTOPRAZOLE (EC) 40 MG TAB PO SCH (09:48)
[2016-12-04] MEDS: ROPINIROLE 0.25 MG TAB PO SCH ×3 (09:48→21:00)
--- NOTE | 2016-12-04 11:35 | PN ---
Date/Time of Note Date/Time of Note DATE: 12/04/16 TIME: 11:24 SUBJECTIVE: Patient apparently had some chest pain last night when he was lying down eating a turkey sandwich which resolved when he stopped eating and drink some water but returned when he returned to eating. The pain was finally resolved with morphine and nitroglycerin. This morning he feels well is on dialysis denies any chest pains dyspnea palpitations or lightheadedness. OBJECTIVE: Vital signs please see chart. HEENT; no JVD, no HJR, carotids 2 over 4+ without bruits. Chest: Clear to auscultation and percussion, no rales, wheezes or rhonchi. Cardiac: S4, S1, S2 with normal physiologic splitting, 1/6 systolic ejection murmur, no rub click or diastolic murmur noted. Abdominal: Bowel sounds positive, soft nontender, no abdominal bruit noted, no hepatosplenomegaly. Extremities: No cyanosis, clubbing, or edema. Negative Homans sign or palpable cords. Right groin without ecchymosis or hematoma Pulses: 2/4 pulses diffusely no bruits noted. LABORATORY STUDIES; EKGs this morning on 04 December at 923 sinus rhythm at [address] abnormality borderline left ventricular hypertrophy no acute changes. Compared to 6:45 in the morning EKG no significant change compared to 230 9 in the morning no significant change. Previously on 01 December he had sinus tachycardia with left bundle branch block which he has had in the past. Chest x-ray this morning revealed borderline cardiomegaly no heart failure no widened mediastinum. CBC & CRP Test 12/02/16 08:40 12/03/16 03:33 12/04/16 06:00 Basophils # 0.010^3/ul (0.0-0.1) 0.010^3/ul (0.0-0.1) 0.010^3/ul (0.0-0.1) Basophils % 0.4% (0.0-2.0) 0.5% (0.0-2.0) 0.3% (0.0-2.0) Blood Morphology Comment Eosinophils # 0.310^3/ul (0.0-0.5) 0.310^3/ul (0.0-0.5) 0.310^3/ul (0.0-0.5) Eosinophils % 6.2% (0.0-7.0) 7.4% (0.0-7.0) H 6.8% (0.0-7.0) Hematocrit 31.7% (42.0-52.0) L 31.1% (42.0-52.0) L 28.9% (42.0-52.0) L Hemoglobin 10.2g/dl (14.0-18.0) L 10.0g/dl (14.0-18.0) L 9.4g/dl (14.0-18.0) L Lymphocytes # 1.010^3/ul (0.8-2.9) 1.010^3/ul (0.8-2.9) 0.710^3/ul (0.8-2.9) L Lymphocytes % 25.7% (15.0-51.0) 22.0% (15.0-51.0) 16.3% (15.0-51.0) Mean Corpuscular Hemoglobin 29.1pg (29.0-33.0) 29.2pg (29.0-33.0) 29.2pg (29.0-33.0) Mean Corpuscular Hemoglobin Concent 32.1g/dl (32.0-37.0) 32.3g/dl (32.0-37.0) 32.5g/dl (32.0-37.0) Mean Corpuscular Volume 90.6fl (82.0-101.0) 90.6fl (82.0-101.0) 89.9fl (82.0-101.0) Mean Platelet Volume 7.4fl (7.4-10.4) 7.7fl (7.4-10.4) 7.4fl (7.4-10.4) Monocytes # 0.310^3/ul (0.3-0.9) 0.410^3/ul (0.3-0.9) 0.310^3/ul (0.3-0.9) Monocytes % 6.3% (0.0-11.0) 7.4% (0.0-11.0) 7.0% (0.0-11.0) Neutrophils # 2.510^3/ul (1.6-7.5) 3.010^3/ul (1.6-7.5) 3.110^3/ul (1.6-7.5) Neutrophils % 61.4% (39.0-77.0) 62.7% (39.0-77.0) 69.6% (39.0-77.0) Nucleated Red Blood Cells # 0.010^3/ul (0.0-0.0) 0.010^3/ul (0.0-0.0) 0.010^3/ul (0.0-0.0) Nucleated Red Blood Cells % 0.0/100WBC (0.0-0.0) 0.0/100WBC (0.0-0.0) 0.0/100WBC (0.0-0.0) Platelet Count 26416^3/UL (140-440) # 95402^3/UL (140-440) 10651^3/UL (140-440) Red Blood Count 3.5010^6/ul (4.70-6.10) L 3.4310^6/ul (4.70-6.10) L 3.2110^6/ul (4.70-6.10) L Red Cell Distribution Width 20.7% (11.5-14.5) H 20.9% (11.5-14.5) H 20.1% (11.5-14.5) H White Blood Count 4.110^3/ul (4.8-10.8) #L 4.710^3/ul (4.8-10.8) L 4.410^3/ul (4.8-10.8) L BMP - Last Results 12/01/16 05:01 B-Type Natriuretic Peptide 02116 H 12/01/16 16:40 Creatine Kinase 48, Creatine Kinase Index 12.4, Creatinine Kinase MB (Mass) 5.95 H 12/03/16 03:33 Alanine Aminotransferase (ALT/SGPT) 31, Albumin 3.6, Albumin/Globulin Ratio 1.24 , Alkaline Phosphatase 161 H, Anion Gap 22 H, Aspartate Amino Transf (AST/SGOT) 23, Calcium Level 9.5, Direct Bilirubin 0.00, Globulin 2.90, Indirect Bilirubin 0.0, Total Bilirubin 0.0 L, Total Protein 6.5 12/04/16 06:00 Troponin I 0.989 *H ASSESSMENT: 1. Coronary artery disease ischemic cardiomyopathy ejection fraction 35-40% on latest echo. 2. Multiple coronary interventions in the left main, LAD, right coronary artery. Patent left main, LAD and right coronary artery stents. Status post new distal right coronary artery drug-eluting stent 2.5 x 12 mm postdilated to 2.75 mm yesterday. 3. Intermittent left bundle branch block history. 4. Chronic renal failure status post failed to renal transplant on dialysis now. 5. History of recurrent pulmonary edema with non-ST elevation MIs. 6. Gout. 7. Hypertension. 8. Hyperlipidemia on statin. Patient's chest pain last night was clearly esophageal and no evidence of significant EKG changes or troponin elevation. 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 Ryan lawton. I have discussed the case with Dr. lawton as well. We will increase and/or further to 30 mg twice daily and patient should continue on Protonix, hydralazine, Lipitor, aspirin and Plavix and carvedilol. PLAN: 1. Patient currently stable post intervention of distal right coronary artery will increase him door further to 30 mg twice daily but otherwise continue aspirin, Plavix, Protonix, statin, hydralazine and carvedilol. Patient will be following up with Dr. Ryan lawton who I will call and discuss the case with. Patient stable from a cardiac standpoint for discharge wound instructions given. KAMRYN AYALA MD Dec 04, 2016 11:35
[2016-12-04] MEDS ORDERED: EPOETIN 10000 UNITS/1 ML INJ (ESRD) SC SCH (17:00)
--- NOTE | 2016-12-04 20:48 | RADRPT ---
Vent Rate: 69 bpm RR Interval: 0 msec [place] Interval: 178 msec QRS Duration: 90 msec QT Interval: 418 msec QTC Interval: 447 msec P-R-T [place]: 57 - 23 - 78 degrees Normal sinus rhythm Minimal voltage criteria for LVH, may be normal variant Nonspecific ST and T wave abnormality Abnormal ECG Electronically Signed By: Gian Carrillo [id number]
--- NOTE | 2016-12-04 20:50 | RADRPT ---
Vent Rate: 67 bpm RR Interval: 0 msec [place] Interval: 172 msec QRS Duration: 96 msec QT Interval: 418 msec QTC Interval: 441 msec P-R-T [place]: 56 - 17 - 83 degrees Normal sinus rhythm Possible Left atrial enlargement Nonspecific ST and T wave abnormality Abnormal ECG Electronically Signed By: Gian Carrillo [id number]
--- NOTE | 2016-12-04 20:51 | RADRPT ---
Vent Rate: 73 bpm RR Interval: 0 msec [place] Interval: 170 msec QRS Duration: 96 msec QT Interval: 406 msec QTC Interval: 447 msec P-R-T [place]: 46 - 14 - 94 degrees Normal sinus rhythm Minimal voltage criteria for LVH, may be normal variant Abnormal QRS-T angle, consider primary T wave abnormality Abnormal ECG Electronically Signed By: Gian Carrillo [id number]
[2016-12-04] MEDS: DOCUSATE SODIUM 250 MG CAP PO SCH (21:00)
[2016-12-04] MEDS: CLOPIDOGREL 75 MG TAB PO SCH (22:07)
[2016-12-04] MEDS: ASPIRIN 81 MG TAB PO SCH (22:07)
[2016-12-04] MEDS: ZOLPIDEM 5 MG TAB PO SCH (22:07)
[2016-12-04] MEDS: ATORVASTATIN 40 MG TAB PO SCH (22:07)
[2016-12-05] VITALS (18 sets, daily range): BP systolic 143–180; BP diastolic 56–83; PULSE 67–86; RESP 18–20
[2016-12-05] MEDS: PANTOPRAZOLE (EC) 40 MG TAB PO SCH (05:35)
--- NOTE | 2016-12-05 07:37 | PN ---
Date/Time of Note Date/Time of Note DATE: 12/05/16 TIME: 07:33 Assessment/Plan VTE Prophylaxis VTE Prophylaxis Intervention: other Lines/Catheters IV Catheter Type (from Nrsg): Saline Lock Urinary Cath still in place: No Assessment/Plan Assessment/Plan 1. CAD, s/p stent, with cont chest pain-epig discomfort that is likley gi related, will be sure protonix has been increased and await cards follow up. 2. No clinical evidence of chf. 3. Labs pending 4. CKD, to have HD and will dc today if ok with cards and no chg in chest pain. Subjective 24 Hr Interval Summary Respiratory: No cough, No shortness of breath Cardiovascular: chest pain (in epig area with radiation and feels bloated with radiation, no inc with exertion) Gastrointestinal: No nausea, No vomiting Genitourinary: no complaints Exam/Review of Systems Vital Signs Vitals Vital Signs Date Time Temp Pulse Resp B/P Pulse Ox O2 Delivery O2 Flow Rate FiO2 12/05/16 06:57 98.1 70 18 157/69 100 12/04/16 22:56 3.0 12/04/16 22:55 Nasal Cannula 12/04/16 06:45 28 Intake and Output 12/04/16 12/04/16 12/05/16 15:00 23:00 07:00 Intake Total 500 ml 720 ml Output Total 3000 ml 2500 ml Balance -2500 ml -1780 ml Exam Neck: No jvd Respiratory: clear to auscultation Cardiovascular: regular rate and rhythm Gastrointestinal: soft Extremities: No edema Results Result Diagram: 12/04/16 0600 12/03/16 0333 Medications Medications Current Medications Acetaminophen (Tylenol Tab) 650 mg Q6H PRN PO PAIN LEVEL 1-3 OR FEVER; Start at 07:00 Acetaminophen/ Hydrocodone Bitart ([place] (5/325)) 1 tab Q6H PRN PO PAIN Last administered on 12/04/16 03:47; Admin Dose 1 TAB; Start 12/01/16 at 12:00 Ropinirole HCl (Requip) 0.5 mg TID PO Last administered on 12/04/16 21:00; Admin Dose 0.5 MG; Start 12/01/16 at 09:00 Zolpidem Tartrate (Ambien) 5 mg HS PO Last administered on 12/04/16 22:07; Admin Dose 5 MG; Start 12/01/16 at 21:00 Alprazolam (Xanax) 0.25 mg BID PO Last administered on 12/03/16 21:15; Admin Dose 0.25 MG; Start 12/01/16 at 09:00 Atorvastatin Calcium (Lipitor) 40 mg HS PO Last administered on 12/04/16 22:07 ; Admin Dose 40 MG; Start 12/01/16 at 21:00 Carvedilol (Coreg) 12.5 mg BID PO Last administered on 12/04/16 23:25; Admin Dose 12.5 MG; Start 12/01/16 at 09:00 Nitroglycerin (Nitroglycerin (Sl Tab) 0.4 Mg) 1 tab Q10MIN PRN SL CHEST PAIN; Start 12/01/16 at 08:00 Aspirin (Aspirin) 81 mg HS PO Last administered on 12/04/16 22:07; Admin Dose 81 MG; Start 12/01/16 at 21:00 Clopidogrel Bisulfate (plaVIX) 75 mg HS PO Last administered on 12/04/16 22:07 ; Admin Dose 75 MG; Start 12/01/16 at 21:00 Hydralazine HCl (Apresoline) 50 mg TID PO ; Start 12/02/16 at 21:00 Docusate Sodium (Colace) 250 mg QHS PO Last administered on 12/03/16 22:14; Admin Dose 250 MG; Start 12/03/16 at 21:00 Miscellaneous Information (* Miscellaneous Pharmacy Order) Hold all Metformin ... ONCE XX ; Start 12/03/16 at 17:00; Stop 12/05/16 at 16:59 Oxycodone/ Acetaminophen (Percocet (5/ 325)) 1 tab Q4H PRN PO REPORTED NON- CARDIAC PAIN 4-7; Start 12/03/16 at 17:00 Al Hydrox/Mg Hydrox/Simethicone (Mag-Al Plus) 30 ml Q4H PRN PO GASTROINTESTINAL UPSET Last administered on 12/03/16 18:36; Admin Dose 30 ML; Start 12/03/16 at 17:00 Ondansetron HCl (Zofran Inj) 4 mg Q4H PRN IV NAUSEA AND/OR VOMITING; Start at 17:00 Nitroglycerin (Nitroglycerin ([place])) 2 spray Q5M PRN SL ANGINA; Start at 20:00 Morphine Sulfate (morphine) 2 mg Q6H PRN IV PAIN LEVEL 6-10; Start 12/04/16 at 03:30 Pantoprazole (Protonix Tab) 40 mg DAILY@06 PO Last administered on 12/05/16t 05 :35; Admin Dose 40 MG; Start 12/04/16 at 09:00 Epoetin [place] (Epogen (Esrd)) 10,000 units TuThSa@17 SC ; Start 12/04/16 at 17:00 Isosorbide Mononitrate (Imdur) 30 mg BID PO ; Start 12/04/16 at 21:00 ALONZO SERRA MD Dec 05, 2016 07:37
[2016-12-05] MEDS ORDERED: PANT40TA4 PO (07:43)
[2016-12-05] MEDS ORDERED: ISOS30TA5 PO (07:43)
[2016-12-05] MEDS: ISOSORBIDE MONONITRATE(SR)30 MG TAB PO SCH (08:13)
[2016-12-05] MEDS: ALPRAZOLAM 0.25 MG TAB PO SCH (08:13)
[2016-12-05] MEDS: ROPINIROLE 0.25 MG TAB PO SCH ×2 (08:34→13:00)
[2016-12-05] MEDS ORDERED: PANTOPRAZOLE (EC) 40 MG TAB PO SCH (09:00)
[2016-12-05] MEDS: ALBUTEROL 0.083% (NEB) 2.5 MG/3 ML AMP HHN PRN (09:06)
--- NOTE | 2016-12-05 10:31 | PN ---
Date/Time of Note Date/Time of Note DATE: 12/05/16 TIME: 10:24 SUBJECTIVE: Patient feeling well this morning denies any chest pains dyspnea or palpitations anxious to go home. In retrospect has not been taking his Imdur here in the hospital and refuses to take it since he felt several years ago when he did have it that it made him feel poorly. OBJECTIVE: Vital signs please see chart. HEENT; no JVD, no HJR, carotids 2 over 4+ without bruits. Chest: Clear to auscultation and percussion, no rales, wheezes or rhonchi. Cardiac: S4, S1, S2 with normal physiologic splitting, 1/6 systolic ejection murmur, no rub click or diastolic murmur noted. Abdominal: Bowel sounds positive, soft nontender, no abdominal bruit noted, no hepatosplenomegaly. Extremities: No cyanosis, clubbing, or edema. Negative Homans sign or palpable cords. Right groin without ecchymosis or hematoma Pulses: 2/4 pulses diffusely no bruits noted. LABORATORY STUDIES; EKG today reveals sinus rhythm at [address] abnormality borderline left ventricular hypertrophy no other changes. Telemetry sinus rhythm no ectopy per monitor check. ASSESSMENT: 1. Coronary artery disease ischemic cardiomyopathy ejection fraction 35-40% on latest echo. 2. Multiple coronary interventions in the left main, LAD, right coronary artery. Patent left main, LAD and right coronary artery stents. Status post new distal right coronary artery drug-eluting stent 2.5 x 12 mm postdilated to 2.75 mm yesterday. 3. Intermittent left bundle branch block history. 4. Chronic renal failure status post failed to renal transplant on dialysis now. 5. History of recurrent pulmonary edema with non-ST elevation MIs. 6. Gout. 7. Hypertension. 8. Hyperlipidemia on statin. 9. Atypical chest pain postintervention consistent with GI will need workup as outpatient. Continue on higher dose Protonix. At this time the patient refuses to take Imdur but will continue on hydralazine carvedilol increased Protonix Lipitor and the importance of taking aspirin and Plavix with multiple drug-eluting stents in place has been stressed. As previously mentioned I discussed the case with his regular handhole machine operator Dr. Jonathan lawton and he will see him next week in the office. Discussed the case also with Dr. [place]. Patient's called angrily to the office and the patient's will discuss with her that we have been in contact. PLAN: 1. Patient currently stable post intervention of distal right coronary artery and refuses to take any isosorbide. Would continue otherwise with aspirin, Plavix, Protonix, statin, hydralazine and carvedilol. Patient will be following up with Dr. Ryan alwton who I called and discussed the case with. Patient stable from a cardiac standpoint for discharge . Wound instructions given. KAMRYN AYALA MD Dec 05, 2016 10:31
[2016-12-05 10:36] LABS: BASOPHILS % 0.4 % (0.0-2.0); EOSINOPHILS # 0.3 10^3/ul (0.0-0.5); EOSINOPHILS % 7.8 % (0.0-7.0); HEMATOCRIT 30.1 % (42.0-52.0); HEMOGLOBIN 9.7 g/dl (14.0-18.0); LYMPHOCYTES # 0.8 10^3/ul (0.8-2.9); LYMPHOCYTES % 20.8 % (15.0-51.0); MEAN CORPUSCULAR HEMOGLOBIN 29.3 pg (29.0-33.0); MEAN CORPUSCULAR HGB CONC 32.3 g/dl (32.0-37.0); MEAN CORPUSCULAR VOLUME 90.7 fl (82.0-101.0); MEAN PLATELET VOLUME 7.8 fl (7.4-10.4); MONOCYTE # 0.3 10^3/ul (0.3-0.9); MONOCYTES % 7.2 % (0.0-11.0); NEUTROPHIL # 2.6 10^3/ul (1.6-7.5); NEUTROPHILS % 63.8 % (39.0-77.0); PLATELET COUNT 142 10^3/UL (140-440); RED BLOOD COUNT 3.32 10^6/ul (4.70-6.10); RED CELL DISTRIBUTION WIDTH 20.3 % (11.5-14.5); UNCORRECTED WBC 4.1 10^3/ul (4.8-10.8); WHITE BLOOD COUNT 4.1 10^3/ul (4.8-10.8)
[2016-12-05 10:43] LABS: POTASSIUM 4.3 mmol/L (3.5-5.1)
[2016-12-05 10:46] LABS: CREATININE 6.77 mg/dl (0.61-1.24)
[2016-12-05 10:47] LABS: CALCIUM 9.5 mg/dl (8.4-10.2)
[2016-12-05 10:48] LABS: CONDITION 1; LH ANALYZER COMMENTS 1
[2016-12-05 11:08] LABS: TROPONIN-I 1.59 ng/ml (0.00-0.12)
--- NOTE | 2016-12-05 13:36 | RADRPT ---
Vent Rate: 68 bpm RR Interval: 0 msec [place] Interval: 188 msec QRS Duration: 94 msec QT Interval: 420 msec QTC Interval: 446 msec P-R-T [place]: 48 - -5 - 108 degrees Normal sinus rhythm Left ventricular hypertrophy with repolarization abnormality Abnormal ECG Electronically Signed By: Gian Carrillo [id number]
== END 2016-12-05 18:02 | disposition home or self-care (01) | DRG 246 ==
LOC: E/R 04:52 → TEL 06:35 → ICU 12-03 15:34 → TEL 12-04 18:42
PROVIDERS: ADMIT Internal Medicine; ATTEND Internal Medicine
PROC: 5A1D60Z (ICD-10-PCS; 2016-12-01)
PROC: 5A09357 Assistance with Respiratory Ventilation, Less than 24 Consecutive Hours, Continuous Positive Airway Pressure (ICD-10-PCS; 2016-12-01)
PROC: 027034Z Dilation of Coronary Artery, One Artery with Drug-eluting Intraluminal Device, Percutaneous Approach (ICD-10-PCS; principal; 2016-12-03)
PROC: 4A023N7 Measurement of Cardiac Sampling and Pressure, Left Heart, Percutaneous Approach (ICD-10-PCS; 2016-12-03)
PROC: B211YZZ Fluoroscopy of Multiple Coronary Arteries using Other Contrast (ICD-10-PCS; 2016-12-03)
PROC: B215YZZ Fluoroscopy of Left Heart using Other Contrast (ICD-10-PCS; 2016-12-03)
PROC: 4A033BC Measurement of Arterial Pressure, Coronary, Percutaneous Approach (ICD-10-PCS; 2016-12-03)
DX: I21.4 Non-ST elevation (NSTEMI) myocardial infarction (principal); N18.6 End stage renal disease; I50.43 Acute on chronic combined systolic (congestive) and diastolic (congestive) heart failure; E11.22 Type 2 diabetes mellitus with diabetic chronic kidney disease; I13.2 Hypertensive heart and chronic kidney disease with heart failure and with stage 5 chronic kidney disease, or end stage renal disease; I16.1 Hypertensive emergency; E78.5 Hyperlipidemia, unspecified; I25.5 Ischemic cardiomyopathy; K21.9 Gastro-esophageal reflux disease without esophagitis; G25.81 Restless legs syndrome; M10.9 Gout, unspecified; R07.89 Other chest pain; E11.51 Type 2 diabetes mellitus with diabetic peripheral angiopathy without gangrene; I25.2 Old myocardial infarction; Z95.1 Presence of aortocoronary bypass graft; Z95.5 Presence of coronary angioplasty implant and graft
CPT/HCPCS: 36415; 71010; 80048; 80053; 82550; 82553; 83880; 84484; 85025; 85610; 85730; 87081; 90935; 93005; 93306; 93458; 93571; 94640; 94660; 94664; 96365; 96375; J1940; C1725; C1769; C1874; C1887; C1894; C9600; J0153; J0886; J1644; J1650; J2250; J2270; J2405; J3010; Q9967

== ENCOUNTER 2017-01-28 18:26 | Observation (INO) | payer MEDICARE, OTHER ==
[~2017-01-28] VITALS: Ht 170.2 cm; Wt 79.2 kg
[~2017-01-28 18:26] MED LIST changes: +ALLO100T PO; +ALPR0.254 PO; -ALPR0.257 PO; +ASPI-664 PO; -ASPI81TA3 PO; -ATOR20TA38 PO; +ATOR40TA68 PO; +CARI350T29 PO; -CARV6.2579 PO; +ESOM40CA PO; +GABA100C14 PO; -HYDR-3498 PO; -HYDR-3672 PO; +HYDR-905 PO; +ISOS30TA5 PO; +NITR0.4T6 SL; +PANT40TA4 PO; -ROPI0.2530 PO; +ROPI0.5T2 PO; +SEVE2.4P3 PO; +VIT1TAB.4 PO; -ZOLP5TAB6 PO; +ZOLP5TAB7 PO
[2017-01-28] MEDS ORDERED: ONDANSETRON 4 MG INJ IV STA (18:32)
[2017-01-28] MEDS ORDERED: NITROGLYCERIN 2% 1 GM OINT PKT TD STA (18:32)
[2017-01-28] MEDS ORDERED: morphine 4 MG/ML VIAL IV STA (18:32)
[2017-01-28 18:40] VITALS: TEMP 98.2
[2017-01-28 18:48] LABS: ADD SCAN DIFF NO
[2017-01-28 18:51] LABS: ABNORMAL IP MESSAGE 1; BASOPHILS % 0.7 % (0.0-2.0); EOSINOPHILS # 0.2 10^3/ul (0.0-0.5); EOSINOPHILS % 5.8 % (0.0-7.0); HEMATOCRIT 36.8 % (42.0-52.0); HEMOGLOBIN 10.6 g/dl (14.0-18.0); LYMPHOCYTES # 1.2 10^3/ul (0.8-2.9); LYMPHOCYTES % 29.4 % (15.0-51.0); MEAN CORPUSCULAR HEMOGLOBIN 28.2 pg (29.0-33.0); MEAN CORPUSCULAR HGB CONC 28.8 g/dl (32.0-37.0); MEAN CORPUSCULAR VOLUME 97.9 fl (82.0-101.0); MEAN PLATELET VOLUME 9.4 fl (7.4-10.4); MONOCYTE # 0.3 10^3/ul (0.3-0.9); MONOCYTES % 7.3 % (0.0-11.0); NEUTROPHIL # 2.3 10^3/ul (1.6-7.5); NEUTROPHILS % 56.6 % (39.0-77.0); PLATELET COUNT 156 10^3/UL (140-415); RED BLOOD COUNT 3.76 10^6/ul (4.70-6.10); RED CELL DISTRIBUTION WIDTH 16.7 % (11.5-14.5); WHITE BLOOD COUNT 4.1 10^3/ul (4.8-10.8)
[2017-01-28 19:05] LABS: PARTIAL THROMBOPLASTIN TIME 35.8 Sec (25.0-35.0)
[2017-01-28 19:10] LABS: INR 1.15; PROTIME 14.7 Sec (12.2-14.2); PT RATIO 1.1
[2017-01-28 19:25] LABS: CALCIUM 9.8 mg/dl (8.4-10.2); CREATININE 5.41 mg/dl (0.61-1.24); POTASSIUM 4.1 mmol/L (3.5-5.1)
[2017-01-28] MEDS ORDERED: RANO500T2 PO (19:26)
[2017-01-28] MEDS ORDERED: SEVE800T7 PO (19:26)
[2017-01-28] MEDS ORDERED: TIOT18CA INHALATION (19:26)
[2017-01-28] MEDS ORDERED: NITR12SP3 TL (19:27)
[2017-01-28] MEDS ORDERED: TIOT4MIS2 INHALATION (19:32)
[2017-01-28 19:37] LABS: TROPONIN-I 0.025 ng/ml (0.00-0.12)
--- NOTE | 2017-01-28 20:23 | ERA ---
ER Documentation Chief Complaint Date/Time DATE: 01/28/17 TIME: 20:21 Chief Complaint Chest pain HPI Patient is a 8-year-old male with coronary artery disease, hypertension, diabetes, and dialysis who presents with chest pain. The patient was brought in by ambulance. He was given aspirin nitroglycerin by paramedics. He said that he had chest pain that started 1.5 hours ago and is still present. It is left-sided. It is constant. It feels different than when he had a previous heart attack but he was concerned. He did have dialysis today. His primary doctor is Dr. Steven Johnson. His weather forcaster Dr. Winslow. ROS All systems reviewed and are negative except as per history of present illness. Medications Home Meds Active Scripts Isosorbide Mononitrate* (Isosorbide Mononitrate*) 30 Mg Tab.er.24h, 30 MG PO BID for 60 Days Prov:ALONZO SERRA MD 12/05/16 Pantoprazole* (Pantoprazole*) 40 Mg Tablet.dr, 40 MG PO Q12 for 60 Days Prov:ALONZO SERRA MD 12/05/16 Reported Medications Tiotropium [place] (Spiriva Respimat) 4 Gm Mist.inhal, 2 PUFF INHALATION DAILY, #1 INHALER 01/28/17 Nitroglycerin* (Nitroglycerin* [place]) 400 Mcg/[place] - 12 Gm [place], 1 SPRAY TL Q5M Y for CHEST PAIN, SPRAY 01/28/17 Ranolazine* (Ranexa*) 500 Mg Tab.sr.12h, 500 MG PO Q12, TAB 01/28/17 Sevelamer Carbonate* (Renvela*) 800 Mg Tablet, 0.8 GM PO WITH MEALS, TAB 01/28/17 Zolpidem Tartrate* (Zolpidem Tartrate*) 5 Mg Tablet, 7.5 MG PO QHS Y for INSOMNIA, #30 TAB 12/01/16 Ropinirole Hcl* (Ropinirole Hcl*) 0.5 Mg Tablet, 0.5 MG PO TID, TAB 12/01/16 Clopidogrel Bisulfate (Clopidogrel) 75 Mg Tablet, 37.5 MG PO QHS, #30 TAB 12/01/16 Esomeprazole Mag Trihydrate (Nexium) 40 Mg Capsule.dr, 40 MG PO DAILY, #30 CAP 12/01/16 Hydrocodone/Acetaminophen ([place] 7.5-325 Tablet) 1 Each Tablet, 1 EACH PO DAILY Y for SEVERE PAIN LEVEL 7-10, TAB 12/01/16 Gabapentin* (Gabapentin*) 100 Mg Capsule, 100 MG PO QHS, #90 CAP 12/01/16 Carisoprodol* (Carisoprodol*) 350 Mg Tablet, 175 MG PO DAILY Y for MUSCLE SPASMS , TAB 12/01/16 Atorvastatin* (Atorvastatin*) 40 Mg Tablet, 40 MG PO QHS, #30 TAB 12/01/16 Aspirin* (Aspirin* EC) 81 Mg Tablet.dr, 81 MG PO QHS, TAB 12/01/16 Alprazolam* (Alprazolam*) 0.25 Mg Tablet, 0.25 MG PO QHS Y for ANXIETY, TAB 12/01/16 Allopurinol* (Allopurinol*) 100 Mg Tablet, 100 MG PO DAILY, TAB 12/01/16 Discontinued Reported Medications Tiotropium [place]* (Spiriva*) 18 Mcg Cap.w.dev, 1 CAP INHALATION DAILY, #30 CAP 01/28/17 Sevelamer Carbonate* (Renvela*) 2.4 Gm Powd.pack, 2.4 GM PO WITH MEALS, PACKET 12/01/16 Nitroglycerin* (Nitroglycerin* SL) 0.4 Mg Tab.subl, 0.4 MG SL Q5MIN Y for CHEST PAIN, BOTTLE 12/01/16 Vit B Complex & C No.13/Fa/D3 (NEPHROCAPS QT TABLET) 1 Each Tab.rapdis, 1 EACH PO DAILY 12/01/16 Allergies Allergies: Coded Allergies: No Known Allergy (Unverified , 01/28/17) PT. WAS ON BICILLIN BEFORE, WAS TOLD BY THE DOCTOR THAT HE IS NOT ALLERGIC TO PCN. PMhx/Soc History of Surgery: Yes (2 kidney transplants, glaucoma bilateral, rectal , 14 stents, ) Anesthesia Reaction: Yes (needs a little) Hx Neurological Disorder: No Hx Respiratory Disorders: Yes (4 LIters oxygen at home) Hx Cardiac Disorders: Yes (hypertension, congested heart failure, mi) Hx Psychiatric Problems: Yes (anxiety, depression, ) Hx Miscellaneous Medical Probl: Yes (neuropathy in feet, c3-down detioration, arthritis) Hx Alcohol Use: No Hx Substance Use: No Hx Tobacco Use: No Smoking Status: Never smoker FmHx Family History: No coronary disease Physical Exam Vitals Vital Signs Date Time Temp Pulse Resp B/P Pulse Ox O2 Delivery O2 Flow Rate FiO2 01/28/17 18:55 98.2 71 20 163/70 99 01/28/17 18:54 Nasal Cannula 2 01/28/17 18:40 98.2 71 20 163/70 99 Nasal Cannula 2.0 Physical Exam Const: No acute distress Head: Atraumatic Eyes: Normal Conjunctiva ENT: Normal External Ears, Nose and Mouth. Neck: Full range of motion..~ No meningismus. Resp: Clear to auscultation bilaterally Cardio: Regular rate and rhythm, no murmurs Abd: Soft, non tender, non distended. Normal bowel sounds Skin: No petechiae or rashes Back: No midline or flank tenderness Ext: No cyanosis, or edema Neur: Awake and alert Psych: Normal Mood and Affect Result Diagram: 01/28/17 1840 01/28/17 1840 Results 24 hrs Laboratory Tests Test 01/28/17 18:40 White Blood Count 4.110^3/ul Red Blood Count 3.7610^6/ul Hemoglobin 10.6g/dl Hematocrit 36.8% Mean Corpuscular Volume 97.9fl Mean Corpuscular Hemoglobin 28.2pg Mean Corpuscular Hemoglobin Concent 28.8g/dl Red Cell Distribution Width 16.7% Platelet Count 49893^3/UL Mean Platelet Volume 9.4fl Neutrophils % 56.6% Lymphocytes % 29.4% Monocytes % 7.3% Eosinophils % 5.8% Basophils % 0.7% Nucleated Red Blood Cells % 0.0/100WBC Neutrophils # 2.310^3/ul Lymphocytes # 1.210^3/ul Monocytes # 0.310^3/ul Eosinophils # 0.210^3/ul Basophils # 0.010^3/ul Nucleated Red Blood Cells # 0.010^3/ul Prothrombin Time 14.7Sec Prothrombin Time Ratio 1.1 INR International Normalized Ratio 1.15 Activated Partial Thromboplast Time 35.8Sec Sodium Level 138mmol/L Potassium Level 4.1mmol/L Chloride Level 97mmol/L Carbon Dioxide Level 33mmol/L Anion Gap 12 Blood Urea Nitrogen 24mg/dl Creatinine 5.41mg/dl Glucose Level 110mg/dl Calcium Level 9.8mg/dl Troponin I 0.025ng/ml Current Medications Medications (Trade) Dose Ordered Sig/Leonardo Route PRN Reason Start Time Stop Time Status Last Admin Dose Admin Nitroglycerin (Nitroglycerin 2% Oint) 1 inch ONCE STAT TD 01/28/17 18:32 01/28/17 18:34 DC 01/28/17 18:47 Morphine Sulfate (morphine) 4 mg ONCE STAT IV 01/28/17 18:32 01/28/17 18:34 DC 01/28/17 18:47 Ondansetron HCl (Zofran Inj) 4 mg ONCE STAT IV 01/28/17 18:32 01/28/17 18:34 DC 01/28/17 18:47 Ropinirole HCl (Requip) 0.5 mg TID PO 01/28/17 21:00 Ondansetron HCl (Zofran Inj) 4 mg ER BRIDGE PRN IV NAUSEA AND/OR VOMITING 01/28/17 20:30 01/29/17 20:29 Acetaminophen (Tylenol Tab) 650 mg ER BRIDGE PRN PO MILD PAIN/FEVER 01/28/17 20:30 01/29/17 20:29 Procedures/MDM EKG #1 read by me: Rate/Rhythm: Regular rate and rhythm at a rate of 76 Intervals: Normal Impression: No evidence of ischemia or arrhythmia EKG #2 pending at this time. Chest x-ray pending at this time. Patient is a 71-year-old male with multiple cardiac risk factors who presents with chest pain. Initial EKG shows no signs of ST elevations. His troponin is within normal limits. The patient has multiple risk factors and will need admission for possible acute coronary syndrome. At this point I doubt pneumonia , pneumothorax, pulmonary embolism, or aortic dissections. I spoke with Dr. Licona who is covering for the patient's primary doctor who will admit the patient to a telemetry bed. I have called his weather forcaster as well for consultation. Departure Diagnosis: Primary Impression: Chest pain Qualified Code: R07.9 - Chest pain, unspecified type Additional Impressions: Anemia Qualified Code: D64.9 - Anemia, unspecified type Chronic renal failure Qualified Code: N18.9 - Chronic renal failure, unspecified stage Condition: SHELBY Charles MD Jan 28, 2017 20:23
[2017-01-28] MEDS ORDERED: ACETAMINOPHEN 325 MG TAB PO PRN ×2 (20:30→23:30)
[2017-01-28] MEDS ORDERED: ONDANSETRON 4 MG INJ IV PRN (20:30)
--- NOTE | 2017-01-28 20:36 | RADRPT ---
PROCEDURE: XR Chest. CLINICAL INDICATION: Chest pain TECHNIQUE: A single portable view of the chest was obtained. COMPARISON: 12/04/2016 FINDINGS: The aorta is tortuous and atherosclerotic. The cardiomediastinal silhouette is otherwise borderline in size and is unchanged. Left lower lung zone airspace disease is seen with a probable left pleura l effusion which is new compared to the prior examination. The remaining lungs and pleural spaces ar e clear. The soft tissues and osseous structures demonstrate benign age related senescent changes. IMPRESSION: Left lower lung zone airspace disease with possible left pleural effusion. Continued chest x-ray fo llow-up until resolution is suggested. RPTAT: [facility] Physician Malinda Date Time Electronically viewed and signed by Marco A Blackwood Physician on 01/28/2017 20:35 /
[2017-01-28] MEDS ORDERED: ROPINIROLE 0.25 MG TAB PO SCH (21:00)
[2017-01-28 22:50] VITALS: PULSE 76
[2017-01-28 23:00] VITALS: Ht 170.2 cm; Wt 79.2 kg
[2017-01-28] MEDS ORDERED: NITROGLYCERIN AEROSOL (4.9 GM) TL PRN (23:30)
[2017-01-28] MEDS ORDERED: HYDROCODONE/APAP (7.5/325) TAB PO PRN (23:30)
[2017-01-28] MEDS ORDERED: ALPRAZOLAM 0.25 MG TAB PO PRN (23:30)
[2017-01-28] MEDS ORDERED: ZOLPIDEM 5 MG TAB PO PRN (23:30)
[2017-01-28] MEDS ORDERED: morphine 10 MG INJ IM PRN (23:30)
[2017-01-29] VITALS (8 sets, daily range): BP systolic 174–208; BP diastolic 82–93; PULSE 74–81; RESP 17–21
[2017-01-29] MEDS ORDERED: CLOPIDOGREL 75 MG TAB PO SCH ×2 (01:00→21:00)
[2017-01-29] MEDS: RANOLAZINE (SR) 500 MG TAB PO SCH ×2 (01:07→09:10)
[2017-01-29] MEDS: PANTOPRAZOLE (EC) 40 MG TAB PO SCH ×2 (01:07→05:47)
[2017-01-29 01:33] LABS: CREATINE KINASE < 20 IU/L (23-200)
[2017-01-29 01:43] LABS: TROPONIN-I 0.026 ng/ml (0.00-0.12)
[2017-01-29 01:44] LABS: CK-MB 0.53 ng/ml (0.0-2.4)
[2017-01-29 07:23] LABS: ADD SCAN DIFF NO
[2017-01-29 07:24] LABS: ABNORMAL IP MESSAGE 1; BASOPHILS % 0.6 % (0.0-2.0); EOSINOPHILS # 0.2 10^3/ul (0.0-0.5); HEMATOCRIT 35.9 % (42.0-52.0); HEMOGLOBIN 10.1 g/dl (14.0-18.0); LYMPHOCYTES % 32.7 % (15.0-51.0); MEAN CORPUSCULAR HEMOGLOBIN 28.1 pg (29.0-33.0); MEAN CORPUSCULAR HGB CONC 28.1 g/dl (32.0-37.0); MEAN PLATELET VOLUME 10.1 fl (7.4-10.4); MONOCYTE # 0.2 10^3/ul (0.3-0.9); MONOCYTES % 7.5 % (0.0-11.0); NEUTROPHIL # 1.7 10^3/ul (1.6-7.5); NEUTROPHILS % 52.9 % (39.0-77.0); PLATELET COUNT 128 10^3/UL (140-415); RED BLOOD COUNT 3.59 10^6/ul (4.70-6.10); RED CELL DISTRIBUTION WIDTH 16.9 % (11.5-14.5); WHITE BLOOD COUNT 3.2 10^3/ul (4.8-10.8)
[2017-01-29 07:41] LABS: CK-MB 0.66 ng/ml (0.0-2.4)
[2017-01-29 07:43] LABS: TROPONIN-I 0.046 ng/ml (0.00-0.12)
[2017-01-29 07:47] LABS: ALBUMIN 3.4 g/dl (3.3-4.9)
[2017-01-29 07:48] LABS: POTASSIUM 3.5 mmol/L (3.5-5.1)
[2017-01-29 07:50] LABS: ALBUMIN/GLOBULIN RATIO 1.09; BILIRUBIN,INDIRECT 0.2 mg/dl (0-1.1); BILIRUBIN,TOTAL 0.2 mg/dl (0.2-1.3); CALCIUM 9.9 mg/dl (8.4-10.2); CREATININE 6.48 mg/dl (0.61-1.24); TOTAL PROTEIN 6.5 g/dl (6.1-8.1)
[2017-01-29] MEDS: SEVELAMER CARBONATE 0.8 GM PKT PO SCH ×2 (07:55→11:50)
[2017-01-29] MEDS ORDERED: hydrALAzine 20 MG INJ IV PRN (08:30)
[2017-01-29] MEDS ORDERED: ALLOPURINOL 100 MG TAB PO SCH (09:00)
--- NOTE | 2017-01-29 09:03 | HP ---
DATE OF ADMISSION: 01/28/2017 REASON FOR ADMISSION: Chest pain. HISTORY OF PRESENT ILLNESS: This is a 71-year-old gentleman, well known to me, with known end-stage renal disease, who is currently maintained on outpatient dialysis every Thursday, Thursday, and . He has a significant history of coronary artery disease, having undergone numerous coronary stents, and has known ischemic cardiomyopathy. Importantly, in November of this year, 2016, he presented with acute onset of shortness of breath. Troponins were positive, consistent with a non-ST elevation myocardial infarction, he was anticoagul ated, and underwent cardiac catheterization. 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 Yesterday, on his typical dialysis day, he underwent an uneventful treatment, however, at home after eating dinner he had the acute onset of substernal chest pain that did not go away after 4 nitrogly cerin sprays at home. Therefore he called 911 and was transported to the ER, where ultimately a dose of morphine relieved his discomfort. Since being admitted he has remained hemodynamically stable. Troponins x3 have been negative and he has been pain-free since admission. Currently he is awake, alert, in no acute distress. No fevers, chills, cough, chest pain or shortne ss of breath. PAST MEDICAL HISTORY: Please see full the dictated problem list. ALLERGIES: NONE. HABITS: Tobacco, none. Alcohol, none. CURRENT MEDICATIONS: Include: 1. Allopurinol 100 mg daily. 2. Xanax 0.25 mg at bedtime. 3. Aspirin 81 mg daily. 4. Lipitor 40 mg daily. 5. Plavix 75 mg daily. 6. Gabapentin 100 mg at bedtime. 7. Pantoprazole 40 mg daily. 8. Ranexa 500 mg b.i.d. 9. Requip 0.5 mg t.i.d. 10. Renvela 2 to 3 tabs t.i.d. with meals. 11. Ambien p.r.n. insomnia. REVIEW OF SYSTEMS: As per HPI. Otherwise a 14-point review of systems was negative. PHYSICAL EXAMINATION: GENERAL: Awake and alert gentleman, in no acute distress, lying flat in bed. VITAL SIGNS: He is afebrile, blood pressure 170/80, heart rate is 72 and regular, respirations are 12 and unlabored, O2 saturations 99% on 2 liters. SKIN: Warm, well perfused. No lesions. HEAD: Normocephalic, atraumatic. EYES: Pupils are round and reactive. Extraocular movements appear full. Sclerae are anicteric. PHARYNX: No lesions. NECK: JVP is not distended. BACK: No CVAT. LUNGS: Clear bilaterally. HEART: S1, S2. Regular rate and rhythm. No new murmurs. ABDOMEN: Soft and nontender. No organomegaly. EXTREMITIES: No cyanosis, clubbing or edema. He has a well-functioning fistula in the left upper e xtremity. LABORATORY DATA: White count 4.1, hemoglobin 10.6, hematocrit 36.8, platelet count 156,000. INR is 1.15. Sodium 138, potassium 4.1, chloride 97, bicarbonate 33, BUN 24, creatinine 5.41, glucose 110 , calcium is 9.8. Troponins are 0.025, 0.026, and 0.046. LFTs are normal. EKG, no acute changes. Chest x-ray, borderline cardiomegaly, questionable "left lower lung zone airspace disease". PROBLEM LIST: 1. Acute chest pain. Troponins x3 are negative, asymptomatic since in hospital: Rule out due to r eflux. 2. Status post flash pulmonary edema, with non-ST elevation [place] in November of 2016. Status post le ft heart catheterization with PCI stent placement in the distal RCA. 3. Known ischemic cardiomyopathy with an EF of approximately 35 to 40%. 4. 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 5. End-stage renal disease, maintained on dialysis every Thursday, Thursday, and Thursday. 6. Hypertension. On medication. 7. Hyperlipidemia. 8. Diabetes. Currently diet controlled. 9. 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 10. GERD. 11. Restless leg syndrome. Controlled with Requip. RECOMMENDATIONS: 1. BP control. 2. Cardiology consultation with Dr. Arroyo. 3. Patient is anxious to be discharged, will await cardiology evaluation. Dictated By: POP BOYCE MD, MM/RAYA Conf#: [id number] [facility]#: [id number]
[2017-01-29] MEDS: ROPINIROLE 0.25 MG TAB PO SCH ×2 (09:10→13:00)
--- NOTE | 2017-01-29 09:15 | CONS ---
Date/Time of Note Date/Time of Note DATE: 01/29/17 TIME: 08:59 Assessment/Plan Assessment/Plan Additional Assessment/Plan 71 yowm w/ ICM (EF 35%), CAD (multiple PCI, last in RCA in 12/05), ESRD on HD, htn and DM who presented with chest pain. Troponins are negative. Don't believe this is ACS. May be demand ischemia from poorly controlled htn (had SBP in 200s last night). Currently on coreg (per his home meds pt has with him) . Needs better BP control (tip considering his EF). Not clear if he had a adverse rxn w/ ARB (ie. hyperkalemia). Will check with his glost kiln placer. If cannot tolerate that, could consider amlodipine (which has anti-anginal properities) or hydralazine. Pt states he cannot tolerate imdur. - continue aspirin 81mg daily and plavix 75mg daily - continue coreg 6.25mg mg bid - continue lipitor and ranexa - needs additional BP control agent (will d/w nephrology - see above) Consultation Date/Type/Reason Admit Date/Time Jan 28, 2017 at 20:11 Date of Consultation: Jan 29, 2017 Type of Consultation: Cardiology Reason for Consultation chest pain, hx of CAD Hx of Present Illness 71 yowm w/ ICM (EF 35%), CAD (mulitple PCI, last distal RCA 12/03/16), ESRD on HD , htn and DM who presented with chest pain. Received ntg w/ improvement. ECG reveals sinus w/ LVH and J-point elevation in V1-V3 (pt had LBBB on prior ECG, per report). His troponins are negative. He has been noted to have SBP in the low 200s o/n. Pt reports having SBP of the 180s at home. He is on aspirin, plavix, lipitor, coreg 6.35 mg bid, and ranexa 500mg bid (cardiac meds). He is currently cp free and denies sob. Pt states he could not tolerate imdur. Unclear why he is not on an ARB (considering his CHF). He states he has tolerated hydralazine in the past. 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 w/ collaterals ESRD on HD DM htn hx of kidney tx Social History Smoking Status: Never smoker Exam/Review of Systems Vital Signs Vitals Vital Signs Date Time Temp Pulse Resp B/P Pulse Ox O2 Delivery O2 Flow Rate FiO2 01/29/17 08:13 78 01/29/17 07:57 98.0 18 208/93 99 01/29/17 07:52 Nasal Cannula 2.0 Intake and Output 01/28/17 01/28/17 01/29/17 15:00 23:00 07:00 Intake Total 900 ml Output Total 0 ml Balance 900 ml Exam Head: atraumatic Eyes: EOMI, PERRL, No icteric Neck: other (distended EJ, difficult to assess JVP), supple Respiratory: clear to auscultation Cardiovascular: other (no m/r/g), regular rate and rhythm Extremities: No edema Results Result Diagram: 01/29/17 0652 01/29/17 0655 Results 24 hrs Laboratory Tests Test 01/28/17 18:40 01/29/17 01:09 01/29/17 06:52 01/29/17 06:55 White Blood Count 4.1 L 3.2 #L Red Blood Count 3.76 L 3.59 L Hemoglobin 10.6 L 10.1 L Hematocrit 36.8 #L 35.9 L Mean Corpuscular Volume 97.9 100.0 Mean Corpuscular Hemoglobin 28.2 L 28.1 L Mean Corpuscular Hemoglobin Concent 28.8 L 28.1 L Red Cell Distribution Width 16.7 H 16.9 H Platelet Count 156 128 L Mean Platelet Volume 9.4 # 10.1 Neutrophils % 56.6 52.9 Lymphocytes % 29.4 32.7 Monocytes % 7.3 7.5 Eosinophils % 5.8 6.0 Basophils % 0.7 0.6 Nucleated Red Blood Cells % 0.0 0.0 Neutrophils # 2.3 1.7 Lymphocytes # 1.2 1.0 Monocytes # 0.3 0.2 L Eosinophils # 0.2 0.2 Basophils # 0.0 0.0 Nucleated Red Blood Cells # 0.0 0.0 Prothrombin Time 14.7 H Prothrombin Time Ratio 1.1 INR International Normalized Ratio 1.15 Activated Partial Thromboplast Time 35.8 H Sodium Level 138 140 Potassium Level 4.1 3.5 Chloride Level 97 94 L Carbon Dioxide Level 33 H 32 H Anion Gap 12 18 H Blood Urea Nitrogen 24 H 29 H Creatinine 5.41 H 6.48 H Glucose Level 110 167 Calcium Level 9.8 9.9 Troponin I 0.025 0.026 0.046 Creatine Kinase < 20 L 21 L Creatine Kinase Index 3.1 Creatinine Kinase MB (Mass) 0.53 0.66 Total Bilirubin 0.2 Direct Bilirubin 0.00 Indirect Bilirubin 0.2 Aspartate Amino Transf (AST/SGOT) 22 Alanine Aminotransferase (ALT/SGPT) 22 Alkaline Phosphatase 126 H Total Protein 6.5 Albumin 3.4 Globulin 3.10 Albumin/Globulin Ratio 1.09 Medications Medications Current Medications Allopurinol (Zyloprim) 100 mg DAILY PO ; Start 01/29/17 at 09:00 Alprazolam (Xanax) 0.25 mg QHS PRN PO ANXIETY; Start 01/28/17 at 23:30 Aspirin (Halfprin) 81 mg QHS PO ; Start 01/29/17 at 21:00 Atorvastatin Calcium (Lipitor) 40 mg QHS PO ; Start 01/29/17 at 21:00 Gabapentin (Neurontin) 100 mg QHS PO ; Start 01/29/17 at 21:00 Acetaminophen/ Hydrocodone Bitart (Denio (7.5-325)) 1 tab DAILY PRN PO SEVERE PAIN LEVEL 7-10; Start 01/28/17 at 23:30 Nitroglycerin (Nitroglycerin ([place])) 1 spray Q5M PRN TL CHEST PAIN; Start 10/04 at 23:30 Pantoprazole (Protonix Tab) 40 mg BID@06,18 PO Last administered on 01/29/17 05:47; Admin Dose 40 MG; Start 01/28/17 at 23:45 Ranolazine (Ranexa) 500 mg Q12 PO Last administered on 01/29/17 01:07; Admin Dose 500 MG; Start 01/28/17 at 23:30 Ropinirole HCl (Requip) 0.5 mg TID PO ; Start 01/29/17 at 09:00 Zolpidem Tartrate (Ambien) 7.5 mg QHS PRN PO INSOMNIA Last administered on 01/29 01:07; Admin Dose 7.5 MG; Start 01/28/17 at 23:30 Acetaminophen (Tylenol Tab) 650 mg Q4H PRN PO PAIN AND OR ELEVATED TEMP; Start 01/28/17 at 23:30 Clonidine (Catapres) 0.1 mg Q4H PRN PO ELEVATED BLOOD PRESSURE; Start 01/28/17 at 23:30 Morphine Sulfate (morphine) 2 mg Q4H PRN IM PAIN LEVEL 8-10; Start 01/28/17 at 23:30 Clopidogrel Bisulfate (plaVIX) 37.5 mg QHS PO Last administered on 01/29/17t 01 :11; Admin Dose 37.5 MG; Start 01/29/17 at 01:00 APOLINAR NGUYEN Jan 29, 2017 09:10
--- NOTE | 2017-01-29 19:54 | RADRPT ---
PROCEDURE: CT chest without contrast CLINICAL INDICATION: Abnormal chest x-ray TECHNIQUE: CT scan of the chest with contrast was performed without intravenous contrast. Coronal and sagittal images were reformatted. The CTDIvol = 13.70 mGy and DLP = 517.48 mGycm. COMPARISON: Chest x-ray 01/28/2017. CT chest 11/05/2016 FINDINGS: Lungs, airway and pleura: The trachea and bronchi are patent as well as normal in caliber. Left gr eater than right posterior lower lobe consolidation is compatible with compressive atelectasis as se en on the chest x-ray but the findings have improved since the prior CT of 11/05/2016. There is no evidence of mass, infiltrate or emphysema. Small dependent pleural effusions are present greater on the left occupying an estimated 10% in the dependent left thorax with only a trace dependent right pleural effusion, findings improved compared to the CT of 11/05/2016. Mediastinum, oumar and cardiovascular: The heart is mildly enlarged with extensive coronary artery c alcification. There is no evidence for pericardial effusion. The thoracic aorta is normal in calib er with severe atherosclerotic calcification. Calcified and precarinal lymph node is present, the r ight paratracheal lymph node of 12 mm short axis is unchanged from the previous exam. Subcarinal ly mphadenopathy of 1.4 cm short axis is also stable. There is no obvious hilar adenopathy on this une nhanced exam. The esophagus is normal in caliber. A hypodense 8 mm right thyroid lobe nodule is aga in noted with subtle clips seen in the visualized inferior visceral space Osseous structures and musculoskeletal findings: Bridging syndesmophytes of the thoracic spine omaira ot exclude diffuse idiopathic skeletal hyperostosis. 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 The left axillary fat stranding is again noted not significantly changed unable to exclu de lymphadenitis or cellulitis without abscess. The left superior axillary lymph node of 9 mm short axis is unchanged. The right axilla is grossly normal. Note is made of benign appearing bilateral gynecomastia. Visualized upper abdomen: Cholelithiasis is again noted as is severe atherosclerotic calcification of the aorta. The adrenal glands are normal bilaterally. RPTAT:HJJR IMPRESSION: 1. Left lower lobe changes seen on the x-ray of 01/28/2017 are consistent with compressive atelecta sis from a left pleural effusion, the finding is slightly improved compared to the CT chest of 11/05. 2. Moderate interval improvement in aeration of the right posterior lower lobe atelectasis and righ t pleural effusion compared to the prior CT of 11/05/2016. 3. Paratracheal and subcarinal as well as left axillary lymphadenopathy are stable findings compare d to the prior CT as are nonspecific inflammatory stranding changes of the left axillary fat. 4. Severe extensive atherosclerotic calcification of the coronary arteries and aorta. 5. 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 6. Stable hypodense right thyroid lobe nodule and a subtle clips in the visceral space consistent p rior surgery possibly parathyroid surgery. 7. Cholelithiasis is again noted. If there is concern for cholecystitis, consider ultrasound follo w-up. 8. Incidental benign bilateral gynecomastia is again noted. Physician Willa Date Time Electronically viewed and signed by Physician Willa on 01/29/2017 19:54 JR/
[2017-01-29] MEDS ORDERED: GABAPENTIN 100 MG CAP PO SCH (21:00)
[2017-01-29] MEDS ORDERED: ATORVASTATIN 40 MG TAB PO SCH (21:00)
[2017-01-29] MEDS ORDERED: ASPIRIN (EC) 81 MG TAB PO SCH (21:00)
== END 2017-01-29 16:15 | disposition home or self-care (01) ==
LOC: E/R 18:26 → UNDOADMOB 20:11 → TEL 20:11
PROVIDERS: ADMIT Internal Medicine; ATTEND Internal Medicine
DX: R07.9 Chest pain, unspecified (principal); I25.10 Atherosclerotic heart disease of native coronary artery without angina pectoris; I25.5 Ischemic cardiomyopathy; Z95.5 Presence of coronary angioplasty implant and graft; I13.2 Hypertensive heart and chronic kidney disease with heart failure and with stage 5 chronic kidney disease, or end stage renal disease; N18.6 End stage renal disease; I50.9 Heart failure, unspecified; Z99.2 Dependence on renal dialysis; E11.22 Type 2 diabetes mellitus with diabetic chronic kidney disease; Z94.0 Kidney transplant status; E78.5 Hyperlipidemia, unspecified; K21.9 Gastro-esophageal reflux disease without esophagitis; G25.81 Restless legs syndrome; I25.2 Old myocardial infarction; Z79.02 Long term (current) use of antithrombotics/antiplatelets; Z79.82 Long term (current) use of aspirin
CPT/HCPCS: 36415; 71010; 71250; 80048; 80053; 82550; 82553; 84484; 85025; 85610; 85730; 93005; 96374; 96375; 99285; G0378; J2270; J2405

== ENCOUNTER 2017-02-02 07:39 | Inpatient (IN) | payer MEDICARE, OTHER ==
[2017-02-02] VITALS (19 sets, daily range): BP systolic 134–197; BP diastolic 61–84; PULSE 76–113; RESP 18–31; Ht 170.2 cm; Wt 79.8 kg
[~2017-02-02] VITALS: Ht 170.2 cm; Wt 79.8 kg
[~2017-02-02 07:39] MED LIST changes: -ESOM40CA PO; -ISOS30TA5 PO; -NITR0.4T6 SL; +NITR12SP3 TL; +RANO500T2 PO; -SEVE2.4P3 PO; +SEVE800T7 PO; +TIOT4MIS2 INHALATION; -VIT1TAB.4 PO
[2017-02-02] MEDS ORDERED: ASPIRIN 81 MG TAB PO STA (08:08)
[2017-02-02] MEDS ORDERED: NITROGLYCERIN (SL) 0.4 MG TAB SL PRN (08:30)
[2017-02-02 08:37] LABS: ADD SCAN DIFF NO
[2017-02-02 08:38] LABS: BASOPHILS % 0.6 % (0.0-2.0); EOSINOPHILS # 0.2 10^3/ul (0.0-0.5); EOSINOPHILS % 2.9 % (0.0-7.0); HEMATOCRIT 38.5 % (42.0-52.0); HEMOGLOBIN 11.4 g/dl (14.0-18.0); LYMPHOCYTES % 18.2 % (15.0-51.0); MEAN CORPUSCULAR HEMOGLOBIN 29.2 pg (29.0-33.0); MEAN CORPUSCULAR HGB CONC 29.6 g/dl (32.0-37.0); MEAN CORPUSCULAR VOLUME 98.5 fl (82.0-101.0); MEAN PLATELET VOLUME 9.5 fl (7.4-10.4); MONOCYTE # 0.3 10^3/ul (0.3-0.9); MONOCYTES % 6.1 % (0.0-11.0); NEUTROPHIL # 3.9 10^3/ul (1.6-7.5); NEUTROPHILS % 71.8 % (39.0-77.0); PLATELET COUNT 161 10^3/UL (140-415); RED BLOOD COUNT 3.91 10^6/ul (4.70-6.10); RED CELL DISTRIBUTION WIDTH 16.9 % (11.5-14.5); WHITE BLOOD COUNT 5.4 10^3/ul (4.8-10.8)
[2017-02-02 08:50] LABS: INR 1.17; PT RATIO 1.2
[2017-02-02 08:52] LABS: POTASSIUM 4.5 mmol/L (3.5-5.1)
[2017-02-02 08:55] LABS: CALCIUM 10.4 mg/dl (8.4-10.2); CREATININE 9.94 mg/dl (0.61-1.24)
[2017-02-02] MEDS ORDERED: ALBUTEROL 0.083% (NEB) 2.5 MG/3 ML AMP NEB STA (09:00)
--- NOTE | 2017-02-02 09:23 | RADRPT ---
PROCEDURE: XR Chest. CLINICAL INDICATION: Shortness of breath TECHNIQUE: Chest AP portable. COMPARISON: 12/04/2016 FINDINGS: The mediastinal structures are unremarkable. There is calcification of the thoracic aorta (consiste nt with atherosclerosis). There is mild cardiomegaly. There is pulmonary venous hypertension. The re is bibasilar subsegmental atelectasis. No consolidation is identified. There are trace bilatera l pleural effusions. There are senescent changes of the axial skeleton. IMPRESSION: Mild cardiomegaly. Pulmonary venous hypertension. Bibasilar subsegmental atelectasis. Trace bilateral pleural effusions RPTAT: HGDB .Nemesio Sunshine MD, MD Date Time Electronically viewed and signed by .Nemesio Sunshine MD, on 02/02/2017 09:23 .B/
[2017-02-02 10:39] LABS: TROPONIN-I 0.043 ng/ml (0.00-0.12)
--- NOTE | 2017-02-02 11:24 | ERD ---
ER Documentation Chief Complaint Date/Time DATE: 02/02/17 TIME: 11:13 Chief Complaint BROUGHT IN VIA EMS FROM HOME DUE TO SHORTNESS OF BREATH HPI 71-year-old male with known end-stage renal disease, who is currently maintained on outpatient dialysis every Thursday, Thursday, and Thursday. He has a significant history of coronary artery disease, having undergone numerous coronary stents, and has known ischemic cardiomyopathy with a low EF. He was due for dialysis today, however he was feeling very short of breath that he came to the ED by ambulance instead. His last dialysis was 3 days ago. He denies any associated fever, chills, chest pain, dizziness, diaphoresis. He is requesting BiPAP as this has helped him in the past. Of note the patient was admitted on 01/28/2017 for chest pain and possible ACS. ROS All systems reviewed and are negative except as per history of present illness. Medications Home Meds Active Scripts Pantoprazole* (Pantoprazole*) 40 Mg Tablet.dr, 40 MG PO Q12 for 60 Days Prov:ALONZO SERRA MD 12/05/16 Reported Medications Tiotropium [place] (Spiriva Respimat) 4 Gm Mist.inhal, 2 PUFF INHALATION DAILY, #1 INHALER 01/28/17 Nitroglycerin* (Nitroglycerin* [place]) 400 Mcg/[place] - 12 Gm [place], 1 SPRAY TL Q5M Y for CHEST PAIN, SPRAY 01/28/17 Ranolazine* (Ranexa*) 500 Mg Tab.sr.12h, 500 MG PO Q12, TAB 01/28/17 Sevelamer Carbonate* (Renvela*) 800 Mg Tablet, 0.8 GM PO WITH MEALS, TAB 01/28/17 Zolpidem Tartrate* (Zolpidem Tartrate*) 5 Mg Tablet, 7.5 MG PO QHS Y for INSOMNIA, #30 TAB 12/01/16 Ropinirole Hcl* (Ropinirole Hcl*) 0.5 Mg Tablet, 0.5 MG PO TID, TAB 12/01/16 Clopidogrel Bisulfate (Clopidogrel) 75 Mg Tablet, 37.5 MG PO QHS, #30 TAB 12/01/16 Hydrocodone/Acetaminophen (Van 7.5-325 Tablet) 1 Each Tablet, 1 EACH PO DAILY Y for SEVERE PAIN LEVEL 7-10, TAB 12/01/16 Gabapentin* (Gabapentin*) 100 Mg Capsule, 100 MG PO QHS, #90 CAP 12/01/16 Carisoprodol* (Carisoprodol*) 350 Mg Tablet, 175 MG PO DAILY Y for MUSCLE SPASMS , TAB 12/01/16 Atorvastatin* (Atorvastatin*) 40 Mg Tablet, 40 MG PO QHS, #30 TAB 12/01/16 Aspirin* (Aspirin* EC) 81 Mg Tablet.dr, 81 MG PO QHS, TAB 12/01/16 Alprazolam* (Alprazolam*) 0.25 Mg Tablet, 0.25 MG PO QHS Y for ANXIETY, TAB 12/01/16 Allopurinol* (Allopurinol*) 100 Mg Tablet, 100 MG PO DAILY, TAB 12/01/16 Discontinued Reported Medications Esomeprazole Mag Trihydrate (Nexium) 40 Mg Capsule.dr, 40 MG PO DAILY, #30 CAP 12/01/16 Tiotropium [place]* (Spiriva*) 18 Mcg Cap.w.dev, 1 CAP INHALATION DAILY, #30 CAP 01/28/17 Sevelamer Carbonate* (Renvela*) 2.4 Gm Powd.pack, 2.4 GM PO WITH MEALS, PACKET 12/01/16 Nitroglycerin* (Nitroglycerin* SL) 0.4 Mg Tab.subl, 0.4 MG SL Q5MIN Y for CHEST PAIN, BOTTLE 12/01/16 Vit B Complex & C No.13/Fa/D3 (NEPHROCAPS QT TABLET) 1 Each Tab.rapdis, 1 EACH PO DAILY 12/01/16 Discontinued Scripts Isosorbide Mononitrate* (Isosorbide Mononitrate*) 30 Mg Tab.er.24h, 30 MG PO BID for 60 Days Prov:ALONZO SERRA MD 12/05/16 Allergies Allergies: Coded Allergies: No Known Allergy (Unverified , 02/02/17) PT. WAS ON BICILLIN BEFORE, WAS TOLD BY THE DOCTOR THAT HE IS NOT ALLERGIC TO PCN. PMhx/Soc History of Surgery: Yes (kidnet transplant; multiple stents) Anesthesia Reaction: No Hx Neurological Disorder: Yes (NEUROPATHY) Hx Respiratory Disorders: No Hx Cardiac Disorders: Yes (htn,, chf, mi) Hx Psychiatric Problems: No Hx Miscellaneous Medical Probl: Yes (DEPRESSION) Hx Alcohol Use: No Hx Substance Use: No Hx Tobacco Use: No Smoking Status: Never smoker FmHx Family History: No diabetes Physical Exam Vitals Vital Signs Date Time Temp Pulse Resp B/P Pulse Ox O2 Delivery O2 Flow Rate FiO2 02/02/17 12:00 96 22 176/86 100 BIPAP 02/02/17 11:00 98 100 100 02/02/17 10:00 92 22 167/89 100 BIPAP 02/02/17 09:00 107 99 100 02/02/17 08:24 Nasal Cannula 2 02/02/17 08:08 Nasal Cannula 2.0 02/02/17 08:08 98.2 98 18 180/92 98 Physical Exam Const: Ill-appearing, respiratory distress, speaking in short sentences Head: Atraumatic Eyes: Normal Conjunctiva ENT: Dry mucous membranes Neck: Full range of motion..~ No meningismus. Resp: Rhonchi diffusely bilaterally, mild expiratory wheezing Cardio: Regular rate and rhythm, no murmurs Abd: Soft, non tender, non distended. Normal bowel sounds Skin: No petechiae or rashes Back: No midline or flank tenderness Ext: No cyanosis, or edema Neur: Awake and alert Psych: Normal Mood and Affect Result Diagram: 02/02/17 0820 02/02/17 0820 Results 24 hrs Laboratory Tests Test 02/02/17 08:20 White Blood Count 5.410^3/ul Red Blood Count 3.9110^6/ul Hemoglobin 11.4g/dl Hematocrit 38.5% Mean Corpuscular Volume 98.5fl Mean Corpuscular Hemoglobin 29.2pg Mean Corpuscular Hemoglobin Concent 29.6g/dl Red Cell Distribution Width 16.9% Platelet Count 00479^3/UL Mean Platelet Volume 9.5fl Neutrophils % 71.8% Lymphocytes % 18.2% Monocytes % 6.1% Eosinophils % 2.9% Basophils % 0.6% Nucleated Red Blood Cells % 0.0/100WBC Neutrophils # 3.910^3/ul Lymphocytes # 1.010^3/ul Monocytes # 0.310^3/ul Eosinophils # 0.210^3/ul Basophils # 0.010^3/ul Nucleated Red Blood Cells # 0.010^3/ul Prothrombin Time 15.0Sec Prothrombin Time Ratio 1.2 INR International Normalized Ratio 1.17 Activated Partial Thromboplast Time 38.0Sec Sodium Level 142mmol/L Potassium Level 4.5mmol/L Chloride Level 95mmol/L Carbon Dioxide Level 31mmol/L Anion Gap 21 Blood Urea Nitrogen 53mg/dl Creatinine 9.94mg/dl Glucose Level 99mg/dl Calcium Level 10.4mg/dl Troponin I 0.043ng/ml B-Type Natriuretic Peptide 64640PC/ML Current Medications Medications (Trade) Dose Ordered Sig/Leonardo Route PRN Reason Start Time Stop Time Status Last Admin Dose Admin Nitroglycerin (Nitroglycerin (Sl Tab) 0.4 Mg) 1 tab Q5M UP TO 3 DOSES PRN SL CHEST PAIN 02/02/17 08:30 Aspirin (Aspirin) 162 mg ONCE STAT PO 02/02/17 08:08 02/02/17 08:12 DC 02/02/17 09:40 Albuterol (Proventil 0.083% (Neb)) 5 mg ONCE STAT NEB 02/02/17 09:00 02/02/17 09:02 DC 02/02/17 09:10 Procedures/MDM EMERGENT LABS AND DIAGNOSTIC STUDIES: Lab Results above were reviewed and interpreted by me. CBC shows mild anemia, BMP is consistent with chronic kidney disease without hyperkalemia Troponin is within normal limits BNP is significantly elevated, slightly elevated compared to his last BMP one week ago 12-lead EKG was interpreted by Timmy Lopez MD: Normal Sinus Rhythm Left bundle branch block No acute ST or T wave changes suggestive of acute ischemia or STEMI. Radiology Results as interpreted by Radiology below were reviewed by Alonzo Lopez MD: Chest x-ray : IMPRESSION: Mild cardiomegaly. Pulmonary venous hypertension. Bibasilar subsegmental atelectasis. Trace bilateral pleural effusions .Nemesio Sunshine MD, MD Date Time Electronically viewed and signed by .Nemesio Sunshine MD, MD on 02/02/2017 09:23 Initial Nursing notes reviewed. Previous Medical Records requested via the Electronic Health Record. EMERGENCY DEPARTMENT COURSE / MEDICAL DECISION MAKING: The patient's presenting with dyspnea, likely secondary to fluid overload. His vitals are stable other than uncontrolled blood pressure. Patient was given nitroglycerin, albuterol neb, and placed on BiPAP. After this he had significant improvement with near resolution of his symptoms. I have a low suspicion for ACS, pulmonary embolism, pneumonia or decompensated heart failure. I think the patient needs dialysis at this time for his fluid overload and this will likely help his symptoms. Patient's respiratory status has stabilized while in the department and is appropriate for further outpatient follow-up. Exam and work up not consistent w/ impending respiratory failure or cardiovascular collapse. I spoke with the patient and he feels comfortable going home at this time as long as he can get dialysis today. I spoke with the dialysis center, and they gave him an appointment for later today at 4:45 PM. Patient will be transported home. He was advised to return immediately to the ER if he had any worsening symptoms prior to his dialysis or if dialysis does not alleviate his symptoms. Patient feels comfortable with this plan. Prior to discharging the patient, after he was off of BiPAP for a few minutes, he started feeling very short of breath again. I don't believe he is stable for discharge at this time. I will admit him to the hospital for pulmonary edema. He will need dialysis today. Critical Care Time: 35 minutes Treatments/Evaluations: Close monitoring and treatment of unstable vital signs, cardiorespiratory, and neurologic status, while maintaining tight balance of fluid, respiratory, and cardiac interventions. This time includes discussing the case with the patient and the patients family. This time does not include all procedures stated elsewhere in this record. This time also includes reviewing old records, labs and radiological studies. This time includes examining and re-examining the patient. Additionally, this time also includes arranging care with admitting and consulting physicians. Accepting Care Team: Current data and ongoing care discussed. Time: Time of admission Primary Provider: Dr. Johnson Consulting: none Outstanding Data: none Departure Diagnosis: Primary Impression: Acute respiratory failure Respiratory failure complication: unspecified whether with hypoxia or hypercapnia Qualified Code: J96.00 - Acute respiratory failure, unspecified whether with hypoxia or hypercapnia Additional Impressions: Fluid overload Hypervolemia type: other Qualified Code: E87.79 - Other hypervolemia ESRD (end stage renal disease) on dialysis Condition: Serious Patient Instructions: Pulmonary Edema Additional Instructions: Go to dialysis today as scheduled at 4:45 PM. Return to the ER if you have any worsening symptoms. ROSEMARIE LOPEZ MD Feb 02, 2017 11:23
[2017-02-02] MEDS ORDERED: ONDANSETRON 4 MG INJ IV PRN ×2 (13:00→13:30)
[2017-02-02] MEDS ORDERED: ACETAMINOPHEN 325 MG TAB PO PRN ×2 (13:00→13:30)
[2017-02-02] MEDS ORDERED: MAGNESIUM HYDROXIDE 30ML CUP PO PRN (13:30)
[2017-02-02] MEDS ORDERED: HYDROCODONE/APAP (7.5/325) TAB PO PRN ×2 (13:30→18:00)
[2017-02-02] MEDS ORDERED: ALPRAZOLAM 0.25 MG TAB PO PRN (13:30)
[2017-02-02] MEDS ORDERED: DOCUSATE SODIUM 100 MG CAP PO PRN (13:30)
[2017-02-02] MEDS ORDERED: morphine 2 MG INJ IV PRN (13:30)
[2017-02-02] MEDS ORDERED: NITROGLYCERIN AEROSOL (4.9 GM) TL PRN (13:30)
[2017-02-02] MEDS ORDERED: BISACODYL (EC) 5 MG TAB PO PRN (13:30)
[2017-02-02] MEDS ORDERED: ONDANSETRON 4 MG TAB PO PRN (13:30)
[2017-02-02] MEDS ORDERED: NACL 0.9% 3 ML SYG IV SCH (13:30)
[2017-02-02] MEDS ORDERED: CARISOPRODOL 350 MG TAB PO PRN (13:30)
--- NOTE | 2017-02-02 15:10 | HP ---
DATE OF ADMISSION: 02/02/2017 REASON FOR ADMISSION: Acute shortness of breath. HISTORY OF PRESENT ILLNESS: This is a 71-year-old gentleman well known to me with end-stage renal d kayleigh, currently maintained on outpatient hemodialysis every Thursday, Thursday, and Thursday, last di alysis on Thursday, now presents on the day of his dialysis to the ER with worsening shortness of antonio th and is to now be admitted with acute congestive heart failure. The patient has an extensive cardiac history, with a known ischemic cardiomyopathy, and in November of this year also presented with acute congestive heart failure, but at that time ruled in for a non -ST elevation myocardial infarction. He subsequently went to the label coder on 12/03/2016 where he underwent PCI and stenting with a drug-e luting stent to the distal RCA and ultimately did well. His recent echo did show ejection fraction of approximately 35% and has had numerous stents in the p ast. He was here at [facility] last week as well with atypical chest pain, ruled out for an NM, was dialyzed and ultimately discharged in stable condition. This morning he could not make it to his routine dialysis treatment, therefore presented to the ER w here chest x-ray confirmed congestive heart failure. He required BiPAP placement to maintain O2 sat s and therefore is being admitted. Unfortunately, his troponin is negative at 0.043, potassium is 4.5 and hematocrit is 38.5. Chest x- ray does show cardiomegaly and confirms CHF with trace bilateral pleural effusions. PAST MEDICAL HISTORY: Please see full dictated problem list. ALLERGIES: NONE. HABITS: Tobacco: None. Alcohol: None. MEDICATIONS PRIOR TO ADMISSION: 1. Gi-Evelio 1 daily. 2. Renvela 2 to 3 tabs t.i.d. with meals. 3. Requip 0.5 mg t.i.d. 4. Ranexa 500 mg b.i.d. 5. Gabapentin 100 mg at bedtime. 6. Aspirin 81 mg a day. 7. Plavix 75 mg a day. 8. Lipitor 40 mg a day. 9. Xanax 0.25 q.8h. p.r.n. 10. Allopurinol 100 mg a day. REVIEW OF SYSTEMS: As per HPI, otherwise the 14-point review of systems is unremarkable. PHYSICAL EXAMINATION: GENERAL: Awake and alert gentleman, currently on BiPAP, maintaining 100% O2 sat. VITAL SIGNS: Afebrile, blood pressure 160/60, heart rate is 82 in a sinus rhythm, respirations are 12 to 14. SKIN: Warm, well perfused. HEAD: Normocephalic, atraumatic. EYES: Pupils are round, reactive. Extraocular movements are full. Sclerae are anicteric. PHARYNX: No lesions. NECK: JVP is not distended. BACK: No CVAT. LUNGS: Show rales at the bases. HEART: S1, S2, regular rate and rhythm. No new murmurs. ABDOMEN: Soft, nontender. EXTREMITIES: No cyanosis, clubbing. Trace distal edema well-functioning fistula in the left upper extremity. LABORATORY DATA: Chest x-ray: Cardiomegaly with findings of congestive heart failure. White count 5.4, hemoglobin 11.4, hematocrit 38.5, platelet count 161,000. INR is 1.17. White count 5.4, hemo globin 11.4, hematocrit 38.5, platelet count 161,000. PROBLEM LIST: 1. Acute congestive heart failure due to fluid overload: Initial troponin is negative. EKG with h is left bundle branch block and no acute changes: chest x-ray confirmatory. 2. End-stage renal disease maintained on outpatient dialysis every Thursday, Thursday, and Thursday. 3. Known coronary disease with ischemic cardiomyopathy. 4. Status post non-ST elevation NM in November of 2009. 5. Status post angiography, PCI and stenting in the distal RCA. 6. Prior history of other stents placed. 7. Hypertension. 8. Hyperlipidemia. 9. Diabetes, currently diet controlled. 10. 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 11. GERD. 12. Restless leg syndrome, controlled on Requip. RECOMMENDATIONS: 1. Admit to hospital. 2. Rule out myocardial infarction. 3. Acute dialysis. 4. Further recommendations pending response to above. Dictated By: POP BOYCE MD, MM/RAYA Conf#: [id number] DID#: [id number]
[2017-02-02] MEDS ORDERED: [UNRECOGNIZED DRUG - REMARK] XX SCH (15:30)
[2017-02-02 15:57] LABS: TROPONIN-I 0.031 ng/ml (0.00-0.12)
[2017-02-02 16:03] LABS: CK-MB 0.49 ng/ml (0.0-2.4)
[2017-02-02] MEDS: HEPARIN 5,000 UNIT/0.5 ML VIAL SC SCH ×2 (16:38→21:35)
[2017-02-02] MEDS: SEVELAMER CARBONATE 0.8 GM PKT PO SCH (18:05)
[2017-02-02 18:25] LABS: Allen Test ACCEPTAB; Arterial Base Excess 3.3 mmol/L (-3.0-3); Arterial COHb 0 % (0.0-3.0); Arterial Fraction of Oxyhgb 99.4 % (93.0-99.0); Arterial HCO3 26.9 mmol/L (22.0-26.0); Arterial MetHb 0.2 % (0.0-1.5); Arterial Total Hemglobin 11.8 g/dl (12.0-18.0); Blood Gas IEPAP 15/5; Blood Gas PS 10; MODE MASK - BIPAP
[2017-02-02 20:58] LABS: CK-MB 0.88 ng/ml (0.0-2.4)
[2017-02-02 21:00] LABS: TROPONIN-I 0.126 ng/ml (0.00-0.12)
[2017-02-02] MEDS ORDERED: PANTOPRAZOLE (EC) 40 MG TAB PO SCH (21:00)
[2017-02-02] MEDS ORDERED: CLOPIDOGREL 75 MG TAB PO SCH (21:00)
[2017-02-02] MEDS ORDERED: LEVALBUTEROL (NEB) 0.63 MG/3 ML AMP ONE (21:26)
[2017-02-02] MEDS ORDERED: ALBUTEROL/IPRATROPIUM (NEB) 3 ML AMP HHN PRN (21:30)
[2017-02-02] MEDS: GABAPENTIN 100 MG CAP PO SCH (21:34)
[2017-02-02] MEDS: ASPIRIN (EC) 81 MG TAB PO SCH (21:35)
[2017-02-02] MEDS: ATORVASTATIN 40 MG TAB PO SCH (21:35)
[2017-02-02] MEDS: LEVALBUTEROL (NEB) 0.63 MG/3 ML AMP HHN PRN (22:06)
[2017-02-02] MEDS: ROPINIROLE 0.25 MG TAB PO SCH (22:41)
[2017-02-02] MEDS: ZOLPIDEM 5 MG TAB PO PRN (22:41)
[2017-02-02] MEDS: RANOLAZINE (SR) 500 MG TAB PO SCH (22:42)
[2017-02-03] VITALS (15 sets, daily range): BP systolic 116–153; BP diastolic 57–73; PULSE 69–95; RESP 16–19
[2017-02-03] MEDS: HEPARIN 5,000 UNIT/0.5 ML VIAL SC SCH ×3 (06:00→20:53)
[2017-02-03 06:08] LABS: CHOL/HDL RATIO 2.9 RATIO
[2017-02-03] MEDS: PANTOPRAZOLE (EC) 40 MG TAB PO SCH (06:14)
--- NOTE | 2017-02-03 08:22 | PN ---
Date/Time of Note Date/Time of Note DATE: 02/03/17 TIME: 08:19 Assessment/Plan VTE Prophylaxis VTE Prophylaxis Intervention: heparin Lines/Catheters IV Catheter Type (from [facility]): Saline Lock Urinary Cath still in place: No Assessment/Plan Problems: (1) ESRD (end stage renal disease) on dialysis Comment: erika HD well...await f/u CXR...for HD in am (2) SOB (shortness of breath) Comment: much improved... off BiPaP (3) HTN (hypertension) Comment: silverio smith now, low dose (4) Arteriosclerotic heart disease (ASHD) Comment: stable.. no cp Subjective 24 Hr Interval Summary Constitutional: improved Respiratory: no complaints Cardiovascular: no complaints Exam/Review of Systems Vital Signs Vitals Vital Signs Date Time Temp Pulse Resp B/P Pulse Ox O2 Delivery O2 Flow Rate FiO2 02/03/17 08:00 79 02/03/17 07:58 99.1 19 153/73 93 02/03/17 05:27 40 02/02/17 17:05 BIPAP 02/02/17 16:35 15.0 Intake and Output 02/02/17 02/02/17 02/03/17 15:00 23:00 07:00 Intake Total 600 ml 250 ml Output Total 3700 ml 0 ml Balance -3100 ml 250 ml Exam Constitutional: alert, oriented Respiratory: clear to auscultation Cardiovascular: regular rate and rhythm Gastrointestinal: soft Extremities: edema (none) Results Result Diagram: 02/02/17 0820 02/02/17 0820 Results 24 hrs Laboratory Tests Test 02/02/17 08:20 02/02/17 14:50 02/02/17 18:17 02/02/17 20:20 White Blood Count 5.4 # Red Blood Count 3.91 L Hemoglobin 11.4 L Hematocrit 38.5 L Mean Corpuscular Volume 98.5 Mean Corpuscular Hemoglobin 29.2 Mean Corpuscular Hemoglobin Concent 29.6 L Red Cell Distribution Width 16.9 H Platelet Count 161 # Mean Platelet Volume 9.5 Neutrophils % 71.8 Lymphocytes % 18.2 Monocytes % 6.1 Eosinophils % 2.9 Basophils % 0.6 Nucleated Red Blood Cells % 0.0 Neutrophils # 3.9 Lymphocytes # 1.0 Monocytes # 0.3 Eosinophils # 0.2 Basophils # 0.0 Nucleated Red Blood Cells # 0.0 Prothrombin Time 15.0 H Prothrombin Time Ratio 1.2 INR International Normalized Ratio 1.17 Activated Partial Thromboplast Time 38.0 H Sodium Level 142 Potassium Level 4.5 Chloride Level 95 L Carbon Dioxide Level 31 Anion Gap 21 H Blood Urea Nitrogen 53 H Creatinine 9.94 H Glucose Level 99 Calcium Level 10.4 H Troponin I 0.043 0.031 0.126 *H B-Type Natriuretic Peptide 40641 H Creatine Kinase 27 21 L Creatine Kinase Index 1.8 4.2 Creatinine Kinase MB (Mass) 0.49 0.88 Blood Gas Specimen Source Blood arterial Arterial Blood Date Drawn 02/02/2017 6:00:31 PM Arterial Blood pH (Temp corrected) 7.473 H Arterial Blood pCO2 (Temp correct) 37.6 Arterial Blood pO2 (Temp corrected) 394.4 H Arterial Blood HCO3 26.9 H Arterial Blood Base Excess 3.3 H Arterial Blood Oxygen Saturation 99.6 H Semaj Test ACCEPTAB Arterial Blood Gas Puncture Site Right Radial Arterial Blood Carboxyhemoglobin 0 Arterial Blood Methemoglobin 0.2 Blood Gas A-a O2 Differential 281.0 H Oxyhemoglobin Percent 99.4 H Total Hemoglobin 11.8 L Blood Gas Temperature 37.0 Blood Gas Actual Respiration Rate 28 Blood Gas Modality MASK - BIPAP FiO2 100.0 Blood Gas Tidal Volume 526.0 Blood Gas Pressure Support 10 Blood Gas IPAP/EPAP Ratio 15 Blood Gas Notified Whom TYSON WYATT Blood Gas Notified Time 02/02/2017 6:25:18 PM Test 02/03/17 05:30 Triglycerides Level 167 H Cholesterol Level 115 LDL Cholesterol, Calculated 43 HDL Cholesterol 39 Cholesterol/HDL Ratio 2.9 Medications Medications Current Medications Allopurinol (Zyloprim) 100 mg DAILY PO ; Start 02/03/17 at 09:00 Alprazolam (Xanax) 0.25 mg QHS PRN PO ANXIETY; Start 02/02/17 at 13:30 Aspirin (Halfprin) 81 mg QHS PO Last administered on 02/02/17 21:35; Admin Dose 81 MG; Start 02/02/17 at 21:00 Atorvastatin Calcium (Lipitor) 40 mg QHS PO Last administered on 02/02/17 21: 35; Admin Dose 40 MG; Start 02/02/17 at 21:00 Carisoprodol (Soma) 175 mg DAILY PRN PO MUSCLE SPASMS; Start 02/02/17 at 13:30 Clopidogrel Bisulfate (plaVIX) 37.5 mg QHS PO Last administered on 02/02/17 21 :34; Admin Dose 37.5 MG; Start 02/02/17 at 21:00 Gabapentin (Neurontin) 100 mg QHS PO Last administered on 02/02/17 21:34; Admin Dose 100 MG; Start 02/02/17 at 21:00 Nitroglycerin (Nitroglycerin ([place])) 1 spray Q5M PRN TL CHEST PAIN; Start at 13:30 Ranolazine (Ranexa) 500 mg Q12 PO Last administered on 02/02/17 22:42; Admin Dose 500 MG; Start 02/02/17 at 21:00 Ropinirole HCl (Requip) 0.5 mg TID PO Last administered on 02/02/17 22:41; Admin Dose 0.5 MG; Start 02/02/17 at 21:00 Zolpidem Tartrate (Ambien) 7.5 mg QHS PRN PO INSOMNIA Last administered on 02/02 22:41; Admin Dose 7.5 MG; Start 02/02/17 at 13:30 Ondansetron HCl (Zofran Tab) 4 mg Q6H PRN PO NAUSEA AND/OR VOMITING; Start at 13:30 Ondansetron HCl (Zofran Inj) 4 mg Q6H PRN IV NAUSEA AND/OR VOMITING; Start at 13:30 Acetaminophen (Tylenol Tab) 650 mg Q6H PRN PO PAIN LEVEL 1-3 OR FEVER; Start at 13:30 Morphine Sulfate (morphine) 2 mg Q4H PRN IV PAIN LEVEL 7-10; Start 02/02/17 at 13:30 Docusate Sodium (Colace) 100 mg Q12H PRN PO CONSTIPATION; Start 02/02/17 at 13: 30 Magnesium Hydroxide (Milk Of Mag) 30 ml DAILY PRN PO CONSTIPATION; Start at 13:30 Bisacodyl (Dulcolax) 5 mg DAILY PRN PO CONSTIPATION; Start 02/02/17 at 13:30 Pantoprazole (Protonix Tab) 40 mg DAILY@06 PO Last administered on 02/03/17 06 :14; Admin Dose 40 MG; Start 02/03/17 at 06:00 Heparin Sodium (Porcine) (Heparin (5000 Units/0.5 ml)) 5,000 unit Q8 SC Last administered on 02/02/17 16:38; Admin Dose 5,000 UNIT; Start 02/02/17 at 14:00 Acetaminophen/ Hydrocodone Bitart ([place] (7.5-325)) 1 tab DAILY PRN PO SEVERE PAIN LEVEL 7-10; Start 02/02/17 at 18:00 Clonidine (Catapres) 0.1 mg QID PO Last administered on 02/02/17 21:35; Admin Dose 0.1 MG; Start 02/02/17 at 18:00 POP BOYCE MD Feb 03, 2017 08:22
--- NOTE | 2017-02-03 09:15 | RADRPT ---
PROCEDURE: XR Chest. CLINICAL INDICATION: Shortness of breath TECHNIQUE: An AP view of the chest was obtained. COMPARISON: Chest x-ray dated 02/02/2017 FINDINGS: There is prominence of the interstitial and central pulmonary vascular markings with small bilater al pleural effusions. No focal airspace opacification or pneumothorax is seen. The cardiomediastin al silhouette is mildly enlarged . Calcifications are seen within the aortic arch. The osseous str uctures demonstrate senescent changes. IMPRESSION: 1. Findings suggestive of pulmonary vascular congestion with small bilateral pleural effusions. No significant interval change. 2. Mild cardiomegaly and aortic atherosclerosis. RPTAT: HH .Shasta Cisneros MD, MD Date Time Electronically viewed and signed by .Shasta Cisneros MD, on 02/03/2017 09:14 .G/
[2017-02-03] MEDS: SEVELAMER CARBONATE 0.8 GM PKT PO SCH ×3 (09:19→17:45)
[2017-02-03] MEDS: RANOLAZINE (SR) 500 MG TAB PO SCH ×2 (09:20→20:50)
[2017-02-03] MEDS: ALLOPURINOL 100 MG TAB PO SCH (09:21)
[2017-02-03] MEDS: ROPINIROLE 0.25 MG TAB PO SCH ×3 (09:22→20:50)
--- NOTE | 2017-02-03 09:25 | RADRPT ---
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 Physician: POP BOYCE Quality: Adequate Procedures: Transthoracic echocardiogram with complete 2D, M-Mode, and doppler examination. Indications: Congestive Heart Failure. 2D/M Mode Doppler Measurement Value Normal Ranges Measurement Value Normal Ranges LVIDd 2D 4.7 3.5 - 5.6 cm AV Peak Gene 1.1 m/sec LVIDs 2D 3.9 2.1 - 4.1 cm AV Peak PG 5.0 mmHg LVPWd 2D 1.1 0.6 - 1.1 cm LVOT Peak Gene 0.7 m/sec IVSd 2D 1.1 0.6 - 1.1 cm LVOT Peak PG 2.0 mmHg AoR Diam 2D 2.6 2.0 - 3.7 cm MV E Peak Gene 1.2 m/sec EDV 2D 102.7 cm3 MV A Peak Gene 0.8 m/sec ESV 2D 57.5 cm3 MV E/A 1.5 MV Peak Gene 5.3 m/sec MV Peak PG 112.9 mmHg MV Mean Gene 3.8 m/sec MV Mean PG 67.7 mmHg MV Decel Time 160 msec MV Decel Ziebach 8 MV E/A 1.5 MV VTI 188.8 cm Findings Left Ventricle: Normal left ventricular cavity size. Left ventricular wall thickness upper limits of normal. Severe global left ventricular systolic dysfunction. Ejection fraction is visually estimated at 3035 %. Abnormal Diastolic Function. Right Ventricle: Normal right ventricular size. Normal right ventricular systolic function. Left Atrium: There is mild enlargement of left atrium. Right Atrium: The right atrium is normal in size. RA Pressure=8. Mitral Valve: Mild mitral leaflet calcification. Mild mitral annular calcification. Moderate mitral valve regurgitation. Aortic Valve: No hemodynamically significant aortic stenosis by doppler. Mild aortic valve regurgitation. Tricuspid Valve: Unable to obtain RVSP due to minimal presence of tricuspid regurgitation. There is trace tricuspid regurgitation. Pulmonic Valve: Pulmonic valve not well visualized. There is trace pulmonic regurgitation. Pericardium: Normal pericardium with no significant pericardial effusion. Aorta: Normal aortic root. IVC: Normal size and no respiratory collapse consistent with elevated right atrial pressure. Conclusions Normal left ventricular cavity size. Left ventricular wall thickness upper limits of normal. Severe global left ventricular systolic dysfunction. Ejection fraction is visually estimated at 30-35 %. Abnormal Diastolic Function. Normal right ventricular size. Normal right ventricular systolic function. There is mild enlargement of left atrium. Mild mitral leaflet calcification. Mild mitral annular calcification. Moderate mitral valve regurgitation. No hemodynamically significant aortic stenosis by doppler. Mild aortic valve regurgitation. Unable to obtain RVSP due to minimal presence of tricuspid regurgitation. There is trace tricuspid regurgitation. Normal pericardium with no significant pericardial effusion. Normal size and no respiratory collapse consistent with elevated right atrial pressure. Electronically Signed By: Christopher Perez 03-Feb-2017 09:25:27 -0700 Patient Name: RELL OBANDO Study Date: 02-Feb-2017 [id number]
[2017-02-03] MEDS: LOSARTAN 25 MG TAB PO SCH (11:20)
--- NOTE | 2017-02-03 13:43 | CONS ---
Date/Time of Note Date/Time of Note DATE: 02/03/17 TIME: 13:28 Assessment/Plan Assessment/Plan Chief Complaint/Hosp Course ASSESSMENT: 1. Flash pulmonary edema - recurrent episode with sbp elevated on presentation. now improved, symptoms improved as well. pt currently on losartan and 2. ICM- LVEF 30-35%, Echo study technically difficult. LV gram previously with lvef with global hypokinesis lvef 35% 3. Acute on chronic diastolic+systolic heart failure precipitated by hypertensive crisis. 4. NSTEMI- mild trop elevation in troponin, likely triggered by HTN/Hypoxic episode. will need to trend trop and reassess symptoms with bp improved 5 Chronic renal failure on dialysis failed to prior transplants per history. 6 Hyperlipidemia. 7. CAD- s/p many previous PCI. 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 diffusely diseased small branch of D1. patent lad/Diag stents. distal RCA disease s/p PCI 11/2016 after FFR + Impression: - con asa 81mg daily - cont plavix 75 mg daily - cont coreg 3.125mg po bid - cont statin - pt did not tolerate imur, can try isosorbide dinitrate low dose 5mg po tid - clonidine added, will monitor bp - trend troponin - tele monitoring - consider BiV ICD placement as outpt. Problems: Consultation Date/Type/Reason Admit Date/Time Feb 02, 2017 at 12:57 Date of Consultation: Feb 03, 2017 Type of Consultation: Cardiology Reason for Consultation Elevated troponin, sob Referring Provider: POP BOYCE MD Hx of Present Illness Mr. Clemens is a 71 y.o. man with h/o of ICM s/p multiple NC, CAD s/p numerous PCI last 11/2016 to RCA, chronic severe systolic heart failure, HTN, DM2, ESRD on iHD MWF via L AV fistula. Pt reports having iHD with 3.5 L removed, however later in PM had increased severe sob. Pt uses 3-4L O@ via NC at home, but did not improve and presented to [facility] ED. Pt without chest pain/pressure, nausea, vomitting, diaphoresis. Pt denies edema, pnd, orthopnea prior to symptom onset. Denies dietary indiscretion. CXR showed pulm edema and pt placed on bipap with improvement in resp states. He reports resolution of symptoms this am, no pnd,orthopnea, denies cp. Constitutional: improved Respiratory: shortness of breath Cardiovascular: no complaints Gastrointestinal: no complaints Genitourinary: no complaints Musculoskeletal: back pain, no complaints Neurologic: no complaints Endocrine: no complaints Psychological: depression Immunologic: no complaints Past Medical History 1. Cardiac history as mentioned above. 2. Chronic kidney disease, on dialysis. via L arm fistula 3. Hypertension. 4. Hyperlipidemia. 5. Peripheral vascular disease. 6. 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 7. Ischemic cardiomyopathy with moderate systolic dysfunction, chronic systolic heart failure Past Surgical History PCI kidney transplant L arm fistula placement Family History Significant Family History: other (cad) Social History Alcohol Use: none Smoking Status: Never smoker Drug Use: none Exam/Review of Systems Vital Signs Vitals Vital Signs Date Time Temp Pulse Resp B/P Pulse Ox O2 Delivery O2 Flow Rate FiO2 02/03/17 11:53 97.8 77 19 146/67 98 02/03/17 08:00 Nasal Cannula 3.0 02/03/17 05:27 40 Intake and Output 02/02/17 02/02/17 02/03/17 14:59 22:59 06:59 Intake Total 600 ml 250 ml Output Total 3700 ml 0 ml Balance -3100 ml 250 ml Exam Constitutional: alert, oriented, well developed Psych: depression, no complaints Head: atraumatic, normocephalic Eyes: EOMI, nl conjunctiva, nl lids ENMT: nl nasal mucosa & septum, other (poor dentition) Neck: non-tender, supple, No jvd Respiratory: crackles in bases Cardiovascular: nl pulses, regular rate and rhythm, systolic murmur, No edema, No gallop, No irregular rhythm Gastrointestinal: non-tender, soft Musculoskeletal: nl extremities to inspection Extremities: normal pulses Neurological: BASKET GRADER II-XII intact, nl mental status, nl speech, nl strength Results Result Diagram: 02/02/17 0820 02/02/17 0820 Results 24 hrs Laboratory Tests Test 02/02/17 14:50 02/02/17 18:17 02/02/17 20:20 02/03/17 05:30 Creatine Kinase 27 21 L Creatine Kinase Index 1.8 4.2 Creatinine Kinase MB (Mass) 0.49 0.88 Troponin I 0.031 0.126 *H Blood Gas Specimen Source Blood arterial Arterial Blood Date Drawn 02/02/2017 6:00:31 PM Arterial Blood pH (Temp corrected) 7.473 H Arterial Blood pCO2 (Temp correct) 37.6 Arterial Blood pO2 (Temp corrected) 394.4 H Arterial Blood HCO3 26.9 H Arterial Blood Base Excess 3.3 H Arterial Blood Oxygen Saturation 99.6 H Semaj Test ACCEPTAB Arterial Blood Gas Puncture Site Right Radial Arterial Blood Carboxyhemoglobin 0 Arterial Blood Methemoglobin 0.2 Blood Gas A-a O2 Differential 281.0 H Oxyhemoglobin Percent 99.4 H Total Hemoglobin 11.8 L Blood Gas Temperature 37.0 Blood Gas Actual Respiration Rate 28 Blood Gas Modality MASK - BIPAP FiO2 100.0 Blood Gas Tidal Volume 526.0 Blood Gas Pressure Support 10 Blood Gas IPAP/EPAP Ratio 02/03 Blood Gas Notified Whom TYSON WYATT Blood Gas Notified Time 02/02/2017 6:25:18 PM Triglycerides Level 167 H Cholesterol Level 115 LDL Cholesterol, Calculated 43 HDL Cholesterol 39 Cholesterol/HDL Ratio 2.9 Medications Medications Current Medications Allopurinol (Zyloprim) 100 mg DAILY PO Last administered on 02/03/17 09:21; Admin Dose 100 MG; Start 02/03/17 at 09:00 Alprazolam (Xanax) 0.25 mg QHS PRN PO ANXIETY; Start 02/02/17 at 13:30 Aspirin (Halfprin) 81 mg QHS PO Last administered on 02/02/17 21:35; Admin Dose 81 MG; Start 02/02/17 at 21:00 Atorvastatin Calcium (Lipitor) 40 mg QHS PO Last administered on 02/02/17 21: 35; Admin Dose 40 MG; Start 02/02/17 at 21:00 Carisoprodol (Soma) 175 mg DAILY PRN PO MUSCLE SPASMS; Start 02/02/17 at 13:30 Clopidogrel Bisulfate (plaVIX) 37.5 mg QHS PO Last administered on 02/02/17 21 :34; Admin Dose 37.5 MG; Start 02/02/17 at 21:00 Gabapentin (Neurontin) 100 mg QHS PO Last administered on 02/02/17 21:34; Admin Dose 100 MG; Start 02/02/17 at 21:00 Nitroglycerin (Nitroglycerin ([place])) 1 spray Q5M PRN TL CHEST PAIN; Start at 13:30 Ranolazine (Ranexa) 500 mg Q12 PO Last administered on 02/03/17 09:20; Admin Dose 500 MG; Start 02/02/17 at 21:00 Ropinirole HCl (Requip) 0.5 mg TID PO Last administered on 02/03/17 13:16; Admin Dose 0.5 MG; Start 02/02/17 at 21:00 Zolpidem Tartrate (Ambien) 7.5 mg QHS PRN PO INSOMNIA Last administered on 02/02 22:41; Admin Dose 7.5 MG; Start 02/02/17 at 13:30 Ondansetron HCl (Zofran Tab) 4 mg Q6H PRN PO NAUSEA AND/OR VOMITING; Start at 13:30 Ondansetron HCl (Zofran Inj) 4 mg Q6H PRN IV NAUSEA AND/OR VOMITING; Start at 13:30 Acetaminophen (Tylenol Tab) 650 mg Q6H PRN PO PAIN LEVEL 1-3 OR FEVER; Start at 13:30 Morphine Sulfate (morphine) 2 mg Q4H PRN IV PAIN LEVEL 7-10; Start 02/02/17 at 13:30 Docusate Sodium (Colace) 100 mg Q12H PRN PO CONSTIPATION; Start 02/02/17 at 13: 30 Magnesium Hydroxide (Milk Of Mag) 30 ml DAILY PRN PO CONSTIPATION; Start at 13:30 Bisacodyl (Dulcolax) 5 mg DAILY PRN PO CONSTIPATION; Start 02/02/17 at 13:30 Pantoprazole (Protonix Tab) 40 mg DAILY@06 PO Last administered on 02/03/17 06 :14; Admin Dose 40 MG; Start 02/03/17 at 06:00 Heparin Sodium (Porcine) (Heparin (5000 Units/0.5 ml)) 5,000 unit Q8 SC Last administered on 02/02/17 16:38; Admin Dose 5,000 UNIT; Start 02/02/17 at 14:00 Acetaminophen/ Hydrocodone Bitart ([place] (7.5-325)) 1 tab DAILY PRN PO SEVERE PAIN LEVEL 7-10; Start 02/02/17 at 18:00 Clonidine (Catapres) 0.1 mg QID PO Last administered on 02/03/17 09:23; Admin Dose 0.1 MG; Start 02/02/17 at 18:00 Losartan Potassium (Cozaar) 25 mg DAILY PO Last administered on 02/03/17 11:20 ; Admin Dose 25 MG; Start 02/03/17 at 10:00 Procedures Procedures EKG: sinus rhythm with LBBB unchanged CXR images reviewed, bilateral pulm vasc congestion with mild effusion SUSANA VASQUEZ Feb 03, 2017 13:41
[2017-02-03] MEDS: CLOPIDOGREL 75 MG TAB PO SCH (20:50)
[2017-02-03] MEDS: GABAPENTIN 100 MG CAP PO SCH (20:50)
[2017-02-03] MEDS: ASPIRIN (EC) 81 MG TAB PO SCH (20:50)
[2017-02-03] MEDS: ZOLPIDEM 5 MG TAB PO PRN (20:51)
[2017-02-03] MEDS: ATORVASTATIN 40 MG TAB PO SCH (20:51)
[2017-02-03] MEDS: ISOSORBIDE DINITRATE 5 MG TAB PO SCH (20:53)
[2017-02-04] VITALS (20 sets, daily range): BP systolic 124–177; BP diastolic 63–86; PULSE 68–92; RESP 17–20
[2017-02-04] MEDS: HEPARIN 5,000 UNIT/0.5 ML VIAL SC SCH ×3 (06:00→21:15)
[2017-02-04] MEDS: PANTOPRAZOLE (EC) 40 MG TAB PO SCH (06:19)
--- NOTE | 2017-02-04 07:15 | CONS ---
Date/Time of Note Date/Time of Note DATE: 02/04/17 TIME: 07:12 Assessment/Plan Assessment/Plan Problems: (1) Debility Comment: will ask PT to see pt (2) Constipation Comment: discussed... prn meds ordered (3) HTN (hypertension) Comment: better w low dose cozaar... he still concerned BP "too low" for him, despite SBP > 120 (4) SOB (shortness of breath) Comment: slowly better...for UF today (5) ESRD (end stage renal disease) on dialysis Comment: for HD w UF today Consultation Date/Type/Reason Admit Date/Time Feb 02, 2017 at 12:57 Initial Consult Date 02/03/17 Type of Consultation: neph Referring Provider: POP BOYCE MD 24 HR Interval Summary Free Text/Dictation a bit weak.. min cough... constipated Exam/Review of Systems Vital Signs Vitals Vital Signs Date Time Temp Pulse Resp B/P Pulse Ox O2 Delivery O2 Flow Rate FiO2 02/04/17 04:20 98.0 74 18 124/72 99 02/03/17 20:50 Nasal Cannula 3.0 02/03/17 05:27 40 Intake and Output 02/03/17 02/03/17 02/04/17 15:00 23:00 07:00 Intake Total 600 ml 250 ml Output Total 0 ml 0 ml Balance 600 ml 250 ml Exam Constitutional: alert Head: normocephalic Respiratory: clear to auscultation Cardiovascular: regular rate and rhythm Gastrointestinal: soft Extremities: edema (none) Results Result Diagram: 02/02/17 0820 02/02/17 0820 Medications Medications Current Medications Allopurinol (Zyloprim) 100 mg DAILY PO Last administered on 02/03/17 09:21; Admin Dose 100 MG; Start 02/03/17 at 09:00 Alprazolam (Xanax) 0.25 mg QHS PRN PO ANXIETY; Start 02/02/17 at 13:30 Aspirin (Halfprin) 81 mg QHS PO Last administered on 02/03/17 20:50; Admin Dose 81 MG; Start 02/02/17 at 21:00 Atorvastatin Calcium (Lipitor) 40 mg QHS PO Last administered on 02/03/17 20: 51; Admin Dose 40 MG; Start 02/02/17 at 21:00 Carisoprodol (Soma) 175 mg DAILY PRN PO MUSCLE SPASMS; Start 02/02/17 at 13:30 Gabapentin (Neurontin) 100 mg QHS PO Last administered on 02/03/17 20:50; Admin Dose 100 MG; Start 02/02/17 at 21:00 Nitroglycerin (Nitroglycerin ([place])) 1 spray Q5M PRN TL CHEST PAIN; Start at 13:30 Ranolazine (Ranexa) 500 mg Q12 PO Last administered on 02/03/17 20:50; Admin Dose 500 MG; Start 02/02/17 at 21:00 Ropinirole HCl (Requip) 0.5 mg TID PO Last administered on 02/03/17 20:50; Admin Dose 0.5 MG; Start 02/02/17 at 21:00 Zolpidem Tartrate (Ambien) 7.5 mg QHS PRN PO INSOMNIA Last administered on 02/03 20:51; Admin Dose 7.5 MG; Start 02/02/17 at 13:30 Ondansetron HCl (Zofran Tab) 4 mg Q6H PRN PO NAUSEA AND/OR VOMITING; Start at 13:30 Ondansetron HCl (Zofran Inj) 4 mg Q6H PRN IV NAUSEA AND/OR VOMITING; Start at 13:30 Acetaminophen (Tylenol Tab) 650 mg Q6H PRN PO PAIN LEVEL 1-3 OR FEVER; Start at 13:30 Morphine Sulfate (morphine) 2 mg Q4H PRN IV PAIN LEVEL 7-10; Start 02/02/17 at 13:30 Docusate Sodium (Colace) 100 mg Q12H PRN PO CONSTIPATION; Start 02/02/17 at 13: 30 Magnesium Hydroxide (Milk Of Mag) 30 ml DAILY PRN PO CONSTIPATION; Start at 13:30 Bisacodyl (Dulcolax) 5 mg DAILY PRN PO CONSTIPATION; Start 02/02/17 at 13:30 Pantoprazole (Protonix Tab) 40 mg DAILY@06 PO Last administered on 02/04/17 06 :19; Admin Dose 40 MG; Start 02/03/17 at 06:00 Heparin Sodium (Porcine) (Heparin (5000 Units/0.5 ml)) 5,000 unit Q8 SC Last administered on 02/02/17 16:38; Admin Dose 5,000 UNIT; Start 02/02/17 at 14:00 Acetaminophen/ Hydrocodone Bitart ([place] (7.5-325)) 1 tab DAILY PRN PO SEVERE PAIN LEVEL 7-10; Start 02/02/17 at 18:00 Clonidine (Catapres) 0.1 mg QID PO Last administered on 02/03/17 09:23; Admin Dose 0.1 MG; Start 02/02/17 at 18:00 Losartan Potassium (Cozaar) 25 mg DAILY PO Last administered on 02/03/17 11:20 ; Admin Dose 25 MG; Start 02/03/17 at 10:00 Clopidogrel Bisulfate (plaVIX) 75 mg QHS PO Last administered on 02/03/17 20: 50; Admin Dose 75 MG; Start 02/03/17 at 21:00 Carvedilol (Coreg) 3.125 mg BID PO ; Start 02/03/17 at 21:00 Isosorbide Dinitrate (Isordil) 5 mg TID PO ; Start 02/03/17 at 21:00 POP BOYCE MD Feb 04, 2017 07:14
[2017-02-04] MEDS ORDERED: SORBITOL 70% 30ML CUP PO PRN (07:30)
[2017-02-04] MEDS ORDERED: BISACODYL 10 MG SUPP PR PRN (07:30)
[2017-02-04] MEDS: SEVELAMER CARBONATE 0.8 GM PKT PO SCH ×3 (08:57→17:34)
[2017-02-04] MEDS: LOSARTAN 25 MG TAB PO SCH (09:00)
[2017-02-04] MEDS: ISOSORBIDE DINITRATE 5 MG TAB PO SCH ×3 (09:00→21:00)
[2017-02-04] MEDS: POLYETHYLENE GLYCOL 17 GM PACKET PO SCH (09:03)
[2017-02-04] MEDS: ROPINIROLE 0.25 MG TAB PO SCH ×3 (09:04→21:12)
[2017-02-04] MEDS: RANOLAZINE (SR) 500 MG TAB PO SCH ×2 (09:04→21:12)
[2017-02-04] MEDS: ALLOPURINOL 100 MG TAB PO SCH (09:04)
--- NOTE | 2017-02-04 09:04 | RADRPT ---
Vent Rate: 79 bpm RR Interval: 0 msec AR Interval: 180 msec QRS Duration: 172 msec QT Interval: 446 msec QTC Interval: 511 msec P-R-T [place]: 47 - -5 - 128 degrees Normal sinus rhythm Possible Left atrial enlargement Left bundle branch block Abnormal ECG Electronically Signed By: Christopher Perez [id number]
--- NOTE | 2017-02-04 11:27 | CONS ---
Date/Time of Note Date/Time of Note DATE: 02/04/17 TIME: 11:22 Assessment/Plan Assessment/Plan Chief Complaint/Hosp Course ASSESSMENT: 1. Flash pulmonary edema - recurrent episode with sbp elevated on presentation. now improved, symptoms improved as well. 2. ICM- LVEF 30-35%, Echo study technically difficult. LV gram previously with lvef with global hypokinesis lvef 35% 3. Acute on chronic diastolic+systolic heart failure precipitated by hypertensive crisis. 4. NSTEMI- mild trop elevation in troponin, likely triggered by HTN/Hypoxic episode. will need to trend trop 5 Chronic renal failure on dialysis failed to prior transplants per history. 6 Hyperlipidemia. 7. CAD- s/p many previous PCI. 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 diffusely diseased small branch of D1. patent lad/Diag stents. distal RCA disease s/p PCI 11/2016 after FFR + Impression: - con asa 81mg daily - cont plavix 75 mg daily - cont coreg 3.125mg po bid would not hold medication - cont statin - pt did not tolerate imur, can try isosorbide dinitrate low dose 5mg po tid pt encourage to attempt to take medication as refused doses - clonidine added, will monitor bp. - trend troponin for peak. - tele monitoring - pt encouraged to take medications to determine appropriate regimen he can tolerate - consider BiV ICD placement as outpt. Problems: Consultation Date/Type/Reason Admit Date/Time Feb 02, 2017 at 12:57 Initial Consult Date 02/03/17 Type of Consultation: Cardiology Referring Provider: POP BOYCE MD 24 HR Interval Summary Free Text/Dictation no acute events. patient denies any chest pain/pressure. resp status improved he states, back to baseline. reports variable bp on checks at hospital, denies headaches, dizziness, change in vision. tele reviewed: no events. Detailed Summary ENT: no complaints Respiratory: no complaints Cardiovascular: no complaints Gastrointestinal: no complaints Exam/Review of Systems Vital Signs Vitals Vital Signs Date Time Temp Pulse Resp B/P Pulse Ox O2 Delivery O2 Flow Rate FiO2 02/04/17 10:46 86 14 02/04/17 07:40 98.2 143/67 91 02/03/17 20:50 Nasal Cannula 3.0 02/03/17 05:27 40 Intake and Output 02/03/17 02/03/1702/04/17 15:00 23:00 07:00 Intake Total 600 ml 250 ml Output Total 0 ml 0 ml Balance 600 ml 250 ml Exam Constitutional: alert, oriented, well developed Psych: depression, no complaints Head: atraumatic, normocephalic Eyes: EOMI, nl conjunctiva, nl lids ENMT: nl nasal mucosa & septum, other (poor dentition) Neck: non-tender, supple, No jvd Respiratory: crackles in bases Cardiovascular: nl pulses, regular rate and rhythm, systolic murmur, No edema, No gallop, No irregular rhythm Gastrointestinal: non-tender, soft Musculoskeletal: nl extremities to inspection Extremities: normal pulses 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, nl mental status, nl speech, nl strength Results Result Diagram: 02/02/1781902/02/1720 Medications Medications Current Medications Allopurinol (Zyloprim) 100 mg DAILY PO Last administered on 02/04/17 09:04; Admin Dose 100 MG; Start 02/03/17 at 09:00 Alprazolam (Xanax) 0.25 mg QHS PRN PO ANXIETY; Start 02/02/17 at 13:30 Aspirin (Halfprin) 81 mg QHS PO Last administered on 02/03/17 20:50; Admin Dose 81 MG; Start 02/02/17 at 21:00 Atorvastatin Calcium (Lipitor) 40 mg QHS PO Last administered on 02/03/17 20: 51; Admin Dose 40 MG; Start 02/02/17 at 21:00 Carisoprodol (Soma) 175 mg DAILY PRN PO MUSCLE SPASMS; Start 02/02/17 at 13:30 Gabapentin (Neurontin) 100 mg QHS PO Last administered on 02/03/17 20:50; Admin Dose 100 MG; Start 02/02/17 at 21:00 Nitroglycerin (Nitroglycerin ([place])) 1 spray Q5M PRN TL CHEST PAIN; Start at 13:30 Ranolazine (Ranexa) 500 mg Q12 PO Last administered on 02/04/17 09:04; Admin Dose 500 MG; Start 02/02/17 at 21:00 Ropinirole HCl (Requip) 0.5 mg TID PO Last administered on 02/04/17 09:04; Admin Dose 0.5 MG; Start 02/02/17 at 21:00 Zolpidem Tartrate (Ambien) 7.5 mg QHS PRN PO INSOMNIA Last administered on 02/03 20:51; Admin Dose 7.5 MG; Start 02/02/17 at 13:30 Ondansetron HCl (Zofran Tab) 4 mg Q6H PRN PO NAUSEA AND/OR VOMITING; Start at 13:30 Ondansetron HCl (Zofran Inj) 4 mg Q6H PRN IV NAUSEA AND/OR VOMITING; Start at 13:30 Acetaminophen (Tylenol Tab) 650 mg Q6H PRN PO PAIN LEVEL 1-3 OR FEVER; Start at 13:30 Morphine Sulfate (morphine) 2 mg Q4H PRN IV PAIN LEVEL 7-10; Start 02/02/17 at 13:30 Docusate Sodium (Colace) 100 mg Q12H PRN PO CONSTIPATION Last administered on 09:05; Admin Dose 100 MG; Start 02/02/17 at 13:30 Magnesium Hydroxide (Milk Of Mag) 30 ml DAILY PRN PO CONSTIPATION; Start at 13:30 Bisacodyl (Dulcolax) 5 mg DAILY PRN PO CONSTIPATION; Start 02/02/17 at 13:30 Pantoprazole (Protonix Tab) 40 mg DAILY@06 PO Last administered on 02/04/17 06 :19; Admin Dose 40 MG; Start 02/03/17 at 06:00 Heparin Sodium (Porcine) (Heparin (5000 Units/0.5 ml)) 5,000 unit Q8 SC Last administered on 02/02/17 16:38; Admin Dose 5,000 UNIT; Start 02/02/17 at 14:00 Acetaminophen/ Hydrocodone Bitart ([place] (7.5-325)) 1 tab DAILY PRN PO SEVERE PAIN LEVEL 7-10; Start 02/02/17 at 18:00 Clonidine (Catapres) 0.1 mg QID PO Last administered on 02/03/17 09:23; Admin Dose 0.1 MG; Start 02/02/17 at 18:00 Losartan Potassium (Cozaar) 25 mg DAILY PO Last administered on 4/18/17at 11:20 ; Admin Dose 25 MG; Start 02/03/17 at 10:00 Clopidogrel Bisulfate (plaVIX) 75 mg QHS PO Last administered on 02/03/17 20: 50; Admin Dose 75 MG; Start 02/03/17 at 21:00 Carvedilol (Coreg) 3.125 mg BID PO ; Start 02/03/17 at 21:00 Isosorbide Dinitrate (Isordil) 5 mg TID PO ; Start 02/03/17 at 21:00 Sorbitol (Sorbitol 70%) 30 ml Q6H PRN PO CONSTIPATION; Start 02/04/17 at 07:30 Polyethylene Glycol (Miralax) 17 gm DAILY PO Last administered on 02/04/17 09: 03; Admin Dose 17 GM; Start 02/04/17 at 09:00 Bisacodyl (Dulcolax Supp) 10 mg BID PRN [place] CONSTIPATION; Start 02/04/17 at 07: 30 Procedures Procedures cxr images reveiwed pulmonary vascular congestion with small bilateral pleural effusions SUSANA VASQUEZ Feb 04, 2017 11:27
[2017-02-04] MEDS: LEVALBUTEROL (NEB) 0.63 MG/3 ML AMP HHN PRN (19:25)
[2017-02-04] MEDS: GABAPENTIN 100 MG CAP PO SCH (21:00)
[2017-02-04] MEDS: CLOPIDOGREL 75 MG TAB PO SCH (21:12)
[2017-02-04] MEDS: ASPIRIN (EC) 81 MG TAB PO SCH (21:12)
[2017-02-04] MEDS: ATORVASTATIN 40 MG TAB PO SCH (21:12)
[2017-02-04] MEDS: ZOLPIDEM 5 MG TAB PO PRN (21:28)
[2017-02-05] VITALS (10 sets, daily range): BP systolic 106–164; BP diastolic 51–76; PULSE 64–78; RESP 15–20
[2017-02-05] MEDS: PANTOPRAZOLE (EC) 40 MG TAB PO SCH ×2 (04:11→09:44)
[2017-02-05] MEDS: HEPARIN 5,000 UNIT/0.5 ML VIAL SC SCH ×3 (06:00→21:54)
[2017-02-05 07:03] LABS: ADD SCAN DIFF NO
[2017-02-05 07:12] LABS: BASOPHILS % 0.6 % (0.0-2.0); EOSINOPHILS # 0.2 10^3/ul (0.0-0.5); EOSINOPHILS % 4.2 % (0.0-7.0); HEMATOCRIT 34.5 % (42.0-52.0); HEMOGLOBIN 10.3 g/dl (14.0-18.0); LYMPHOCYTES % 20.6 % (15.0-51.0); MEAN CORPUSCULAR HEMOGLOBIN 28.9 pg (29.0-33.0); MEAN CORPUSCULAR HGB CONC 29.9 g/dl (32.0-37.0); MEAN CORPUSCULAR VOLUME 96.9 fl (82.0-101.0); MONOCYTE # 0.5 10^3/ul (0.3-0.9); MONOCYTES % 10.5 % (0.0-11.0); NEUTROPHILS % 63.9 % (39.0-77.0); PLATELET COUNT 131 10^3/UL (140-415); RED BLOOD COUNT 3.56 10^6/ul (4.70-6.10); WHITE BLOOD COUNT 4.8 10^3/ul (4.8-10.8)
[2017-02-05 07:23] LABS: ALBUMIN 3.5 g/dl (3.3-4.9); ALBUMIN/GLOBULIN RATIO 1.12; CALCIUM 9.9 mg/dl (8.4-10.2); CREATININE 7.23 mg/dl (0.61-1.24); POTASSIUM 3.9 mmol/L (3.5-5.1); TOTAL PROTEIN 6.6 g/dl (6.1-8.1)
--- NOTE | 2017-02-05 08:21 | CONS ---
Date/Time of Note Date/Time of Note DATE: 02/05/17 TIME: 08:20 Assessment/Plan Assessment/Plan Problems: (1) HTN (hypertension) Comment: better.. erika the Losartan... K fine (2) ESRD (end stage renal disease) on dialysis Comment: for HD in am (3) Debility Comment: hopefullt to be seen by PT today...check various labs as well Consultation Date/Type/Reason Admit Date/Time Feb 04, 2017 at 12:01 Initial Consult Date 02/03/17 Type of Consultation: neph Referring Provider: POP BOYCE MD 24 HR Interval Summary Free Text/Dictation better... waiting to be seen by PT for exercises/ambulation Exam/Review of Systems Vital Signs Vitals Vital Signs Date Time Temp Pulse Resp B/P Pulse Ox O2 Delivery O2 Flow Rate FiO2 02/05/17 08:06 98.0 75 18 133/63 100 02/05/17 02:20 3.0 02/04/17 20:00 Nasal Cannula 02/03/17 05:27 40 Intake and Output 02/04/17 02/04/17 02/05/17 15:00 23:00 07:00 Intake Total 400 ml 400 ml 240 ml Output Total 3400 ml 0 ml 0 ml Balance -3000 ml 400 ml 240 ml Exam Constitutional: alert, oriented Head: normocephalic Neck: supple Respiratory: clear to auscultation Cardiovascular: regular rate and rhythm Extremities: normal pulses Results Result Diagram: 02/05/17 0643 02/05/17 0643 Results 24 hrs Laboratory Tests Test 02/04/17 10:50 02/05/17 06:43 Troponin I 0.069 White Blood Count 4.8 Red Blood Count 3.56 L Hemoglobin 10.3 L Hematocrit 34.5 L Mean Corpuscular Volume 96.9 Mean Corpuscular Hemoglobin 28.9 L Mean Corpuscular Hemoglobin Concent 29.9 L Red Cell Distribution Width 16.0 H Platelet Count 131 L Mean Platelet Volume 10.0 Neutrophils % 63.9 Lymphocytes % 20.6 Monocytes % 10.5 Eosinophils % 4.2 Basophils % 0.6 Nucleated Red Blood Cells % 0.0 Neutrophils # 3.0 Lymphocytes # 1.0 Monocytes # 0.5 Eosinophils # 0.2 Basophils # 0.0 Nucleated Red Blood Cells # 0.0 Sodium Level 136 Potassium Level 3.9 Chloride Level 95 L Carbon Dioxide Level 30 Anion Gap 15 Blood Urea Nitrogen 34 H Creatinine 7.23 H Glucose Level 114 Calcium Level 9.9 Total Bilirubin 0.0 L Direct Bilirubin 0.00 Indirect Bilirubin 0.0 Aspartate Amino Transf (AST/SGOT) 16 Alanine Aminotransferase (ALT/SGPT) 21 Alkaline Phosphatase 117 Total Protein 6.6 Albumin 3.5 Globulin 3.10 Albumin/Globulin Ratio 1.12 Medications Medications Current Medications Allopurinol (Zyloprim) 100 mg DAILY PO Last administered on 02/04/17 09:04; Admin Dose 100 MG; Start 02/03/17 at 09:00 Alprazolam (Xanax) 0.25 mg QHS PRN PO ANXIETY; Start 02/02/17 at 13:30 Aspirin (Halfprin) 81 mg QHS PO Last administered on 02/04/17 21:12; Admin Dose 81 MG; Start 02/02/17 at 21:00 Atorvastatin Calcium (Lipitor) 40 mg QHS PO Last administered on 02/04/17 21: 12; Admin Dose 40 MG; Start 02/02/17 at 21:00 Carisoprodol (Soma) 175 mg DAILY PRN PO MUSCLE SPASMS; Start 02/02/17 at 13:30 Gabapentin (Neurontin) 100 mg QHS PO Last administered on 02/03/17 20:50; Admin Dose 100 MG; Start 02/02/17 at 21:00 Nitroglycerin (Nitroglycerin ([place])) 1 spray Q5M PRN TL CHEST PAIN; Start at 13:30 Ranolazine (Ranexa) 500 mg Q12 PO Last administered on 02/04/17 21:12; Admin Dose 500 MG; Start 02/02/17 at 21:00 Ropinirole HCl (Requip) 0.5 mg TID PO Last administered on 02/04/17 21:12; Admin Dose 0.5 MG; Start 02/02/17 at 21:00 Zolpidem Tartrate (Ambien) 7.5 mg QHS PRN PO INSOMNIA Last administered on 02/04 21:28; Admin Dose 7.5 MG; Start 02/02/17 at 13:30 Ondansetron HCl (Zofran Tab) 4 mg Q6H PRN PO NAUSEA AND/OR VOMITING; Start at 13:30 Ondansetron HCl (Zofran Inj) 4 mg Q6H PRN IV NAUSEA AND/OR VOMITING; Start at 13:30 Acetaminophen (Tylenol Tab) 650 mg Q6H PRN PO PAIN LEVEL 1-3 OR FEVER; Start at 13:30 Morphine Sulfate (morphine) 2 mg Q4H PRN IV PAIN LEVEL 7-10; Start 02/02/17 at 13:30 Docusate Sodium (Colace) 100 mg Q12H PRN PO CONSTIPATION Last administered on 09:05; Admin Dose 100 MG; Start 02/02/17 at 13:30 Magnesium Hydroxide (Milk Of Mag) 30 ml DAILY PRN PO CONSTIPATION; Start at 13:30 Bisacodyl (Dulcolax) 5 mg DAILY PRN PO CONSTIPATION; Start 02/02/17 at 13:30 Pantoprazole (Protonix Tab) 40 mg DAILY@06 PO Last administered on 02/05/17 04 :11; Admin Dose 40 MG; Start 02/03/17 at 06:00 Heparin Sodium (Porcine) (Heparin (5000 Units/0.5 ml)) 5,000 unit Q8 SC Last administered on 02/02/17 16:38; Admin Dose 5,000 UNIT; Start 02/02/17 at 14:00 Acetaminophen/ Hydrocodone Bitart ([place] (7.5-325)) 1 tab DAILY PRN PO SEVERE PAIN LEVEL 7-10; Start 02/02/17 at 18:00 Clonidine (Catapres) 0.1 mg QID PO Last administered on 02/05/17 04:07; Admin Dose 0.1 MG; Start 02/02/17 at 18:00 Losartan Potassium (Cozaar) 25 mg DAILY PO Last administered on 02/03/17 11:20 ; Admin Dose 25 MG; Start 02/03/17 at 10:00 Clopidogrel Bisulfate (plaVIX) 75 mg QHS PO Last administered on 02/04/17 21: 12; Admin Dose 75 MG; Start 02/03/17 at 21:00 Carvedilol (Coreg) 3.125 mg BID PO ; Start 02/03/17 at 21:00 Isosorbide Dinitrate (Isordil) 5 mg TID PO ; Start 02/03/17 at 21:00 Sorbitol (Sorbitol 70%) 30 ml Q6H PRN PO CONSTIPATION Last administered on 02/04 16:13; Admin Dose 30 ML; Start 02/04/17 at 07:30 Polyethylene Glycol (Miralax) 17 gm DAILY PO Last administered on 02/04/17 09: 03; Admin Dose 17 GM; Start 02/04/17 at 09:00 Bisacodyl (Dulcolax Supp) [address] CONSTIPATION; Start 02/04/17 at 07: 30 POP BOYCE MD Feb 05, 2017 08:21
[2017-02-05] MEDS: ISOSORBIDE DINITRATE 5 MG TAB PO SCH ×3 (09:43→21:50)
[2017-02-05] MEDS: SEVELAMER CARBONATE 0.8 GM PKT PO SCH ×3 (09:44→17:41)
[2017-02-05] MEDS: LOSARTAN 25 MG TAB PO SCH (09:45)
[2017-02-05] MEDS: ALLOPURINOL 100 MG TAB PO SCH (09:46)
[2017-02-05] MEDS: ROPINIROLE 0.25 MG TAB PO SCH ×3 (09:47→21:51)
[2017-02-05] MEDS: RANOLAZINE (SR) 500 MG TAB PO SCH ×2 (09:47→21:46)
[2017-02-05] MEDS: POLYETHYLENE GLYCOL 17 GM PACKET PO SCH (09:50)
--- NOTE | 2017-02-05 14:19 | CONS ---
Date/Time of Note Date/Time of Note DATE: 02/05/17 TIME: 14:15 Assessment/Plan Assessment/Plan Additional Assessment/Plan 71 yowm w/ ICM EF 30-35%, CAD, ESRD on HD, and other issues who returns with respiratory difficult in setting of worsen htn. Mild troponin leak is likely demand ischemia. Currently doing better on current BP regimen: losartan, clonidine, coreg and isordil. Pt seems to tolerate a SBP in 130-140s but not lower. ALso, may need to set parameters of when to hold bp meds before dialysis (as he states his bp drops ~ 20 mmHg w/ dialysis). (As noted by Dr. 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 Denies cp or sob. Exam/Review of Systems Vital Signs Vitals Vital Signs Date Time Temp Pulse Resp B/P Pulse Ox O2 Delivery O2 Flow Rate FiO2 02/05/17 13:36 72 02/05/17 11:24 98.1 18 140/60 100 02/05/17 08:10 Nasal Cannula 3.0 02/03/17 05:27 40 Intake and Output 02/04/17 02/04/17 02/05/17 15:00 23:00 07:00 Intake Total 400 ml 400 ml 240 ml Output Total 3400 ml 0 ml 0 ml Balance -3000 ml 400 ml 240 ml Exam Constitutional: No distress Neck: jvd Respiratory: other (clear anteriorly) Cardiovascular: other (1/6 CHERYL), regular rate and rhythm Extremities: other (trace edema) Results Result Diagram: 02/05/17 0643 02/05/17 0643 Results 24 hrs Laboratory Tests Test 02/05/17 06:43 White Blood Count 4.8 Red Blood Count 3.56 L Hemoglobin 10.3 L Hematocrit 34.5 L Mean Corpuscular Volume 96.9 Mean Corpuscular Hemoglobin 28.9 L Mean Corpuscular Hemoglobin Concent 29.9 L Red Cell Distribution Width 16.0 H Platelet Count 131 L Mean Platelet Volume 10.0 Neutrophils % 63.9 Lymphocytes % 20.6 Monocytes % 10.5 Eosinophils % 4.2 Basophils % 0.6 Nucleated Red Blood Cells % 0.0 Neutrophils # 3.0 Lymphocytes # 1.0 Monocytes # 0.5 Eosinophils # 0.2 Basophils # 0.0 Nucleated Red Blood Cells # 0.0 Sodium Level 136 Potassium Level 3.9 Chloride Level 95 L Carbon Dioxide Level 30 Anion Gap 15 Blood Urea Nitrogen 34 H Creatinine 7.23 H Glucose Level 114 Calcium Level 9.9 Total Bilirubin 0.0 L Direct Bilirubin 0.00 Indirect Bilirubin 0.0 Aspartate Amino Transf (AST/SGOT) 16 Alanine Aminotransferase (ALT/SGPT) 21 Alkaline Phosphatase 117 Total Protein 6.6 Albumin 3.5 Globulin 3.10 Albumin/Globulin Ratio 1.12 Medications Medications Current Medications Allopurinol (Zyloprim) 100 mg DAILY PO Last administered on 02/05/17 09:46; Admin Dose 100 MG; Start 02/03/17 at 09:00 Alprazolam (Xanax) 0.25 mg QHS PRN PO ANXIETY; Start 02/02/17 at 13:30 Aspirin (Halfprin) 81 mg QHS PO Last administered on 02/04/17 21:12; Admin Dose 81 MG; Start 02/02/17 at 21:00 Atorvastatin Calcium (Lipitor) 40 mg QHS PO Last administered on 02/04/17 21: 12; Admin Dose 40 MG; Start 02/02/17 at 21:00 Carisoprodol (Soma) 175 mg DAILY PRN PO MUSCLE SPASMS; Start 02/02/17 at 13:30 Gabapentin (Neurontin) 100 mg QHS PO Last administered on 02/03/17 20:50; Admin Dose 100 MG; Start 02/02/17 at 21:00 Nitroglycerin (Nitroglycerin ([place])) 1 spray Q5M PRN TL CHEST PAIN; Start at 13:30 Ranolazine (Ranexa) 500 mg Q12 PO Last administered on 02/05/17 09:47; Admin Dose 500 MG; Start 02/02/17 at 21:00 Ropinirole HCl (Requip) 0.5 mg TID PO Last administered on 02/05/17 09:47; Admin Dose 0.5 MG; Start 02/02/17 at 21:00 Zolpidem Tartrate (Ambien) 7.5 mg QHS PRN PO INSOMNIA Last administered on 02/04 21:28; Admin Dose 7.5 MG; Start 02/02/17 at 13:30 Ondansetron HCl (Zofran Tab) 4 mg Q6H PRN PO NAUSEA AND/OR VOMITING; Start at 13:30 Ondansetron HCl (Zofran Inj) 4 mg Q6H PRN IV NAUSEA AND/OR VOMITING; Start at 13:30 Acetaminophen (Tylenol Tab) 650 mg Q6H PRN PO PAIN LEVEL 1-3 OR FEVER; Start at 13:30 Morphine Sulfate (morphine) 2 mg Q4H PRN IV PAIN LEVEL 7-10; Start 02/02/17 at 13:30 Docusate Sodium (Colace) 100 mg Q12H PRN PO CONSTIPATION Last administered on 09:05; Admin Dose 100 MG; Start 02/02/17 at 13:30 Magnesium Hydroxide (Milk Of Mag) 30 ml DAILY PRN PO CONSTIPATION; Start at 13:30 Bisacodyl (Dulcolax) 5 mg DAILY PRN PO CONSTIPATION; Start 02/02/17 at 13:30 Pantoprazole (Protonix Tab) 40 mg DAILY@06 PO Last administered on 02/05/17 09 :44; Admin Dose 40 MG; Start 02/03/17 at 06:00 Heparin Sodium (Porcine) (Heparin (5000 Units/0.5 ml)) 5,000 unit Q8 SC Last administered on 02/02/17 16:38; Admin Dose 5,000 UNIT; Start 02/02/17 at 14:00 Acetaminophen/ Hydrocodone Bitart ([place] (7.5-325)) 1 tab DAILY PRN PO SEVERE PAIN LEVEL 7-10; Start 02/02/17 at 18:00 Losartan Potassium (Cozaar) 25 mg DAILY PO Last administered on 02/05/17 09:45 ; Admin Dose 25 MG; Start 02/03/17 at 10:00 Clopidogrel Bisulfate (plaVIX) 75 mg QHS PO Last administered on 02/04/17 21: 12; Admin Dose 75 MG; Start 02/03/17 at 21:00 Carvedilol (Coreg) 3.125 mg BID PO Last administered on 02/05/17 09:44; Admin Dose 3.125 MG; Start 02/03/17 at 21:00 Isosorbide Dinitrate (Isordil) 5 mg TID PO Last administered on 02/05/17 09:43 ; Admin Dose 5 MG; Start 02/03/17 at 21:00 Sorbitol (Sorbitol 70%) 30 ml Q6H PRN PO CONSTIPATION Last administered on 02/04 16:13; Admin Dose 30 ML; Start 02/04/17 at 07:30 Polyethylene Glycol (Miralax) 17 gm DAILY PO Last administered on 02/05/17 09: 50; Admin Dose 17 GM; Start 02/04/17 at 09:00 Bisacodyl (Dulcolax Supp) 10 mg BID PRN [place] CONSTIPATION; Start 02/04/17 at 07: 30 Clonidine (Catapres) 0.1 mg QID PRN PO ELEVATED BLOOD PRESSURE; Start 02/05/17 at 08:30 APOLINAR NGUYEN Feb 05, 2017 14:19
[2017-02-05] MEDS: ATORVASTATIN 40 MG TAB PO SCH (21:50)
[2017-02-05] MEDS: CLOPIDOGREL 75 MG TAB PO SCH (21:51)
[2017-02-05] MEDS: GABAPENTIN 100 MG CAP PO SCH (21:52)
[2017-02-05] MEDS: ASPIRIN (EC) 81 MG TAB PO SCH (21:52)
[2017-02-05] MEDS: ZOLPIDEM 5 MG TAB PO PRN (22:02)
[2017-02-06] VITALS (15 sets, daily range): BP systolic 118–144; BP diastolic 59–83; PULSE 70–85; RESP 18
[2017-02-06] MEDS: ROPINIROLE 0.25 MG TAB PO SCH ×3 (03:25→13:39)
[2017-02-06] MEDS: HEPARIN 5,000 UNIT/0.5 ML VIAL SC SCH ×2 (06:00→13:45)
[2017-02-06] MEDS: PANTOPRAZOLE (EC) 40 MG TAB PO SCH (06:05)
[2017-02-06] MEDS: SEVELAMER CARBONATE 0.8 GM PKT PO SCH ×2 (08:00→13:40)
[2017-02-06 08:40] LABS: THYROID STIMULATING HORMONE 1.03 MIU/L (0.465-4.680)
[2017-02-06] MEDS: ISOSORBIDE DINITRATE 5 MG TAB PO SCH ×2 (09:00→13:42)
[2017-02-06] MEDS ORDERED: LOSA25TA5 PO (13:30)
[2017-02-06] MEDS: POLYETHYLENE GLYCOL 17 GM PACKET PO SCH (13:39)
[2017-02-06] MEDS: RANOLAZINE (SR) 500 MG TAB PO SCH (13:39)
[2017-02-06] MEDS: ALLOPURINOL 100 MG TAB PO SCH (13:40)
[2017-02-06] MEDS: LOSARTAN 25 MG TAB PO SCH (13:40)
--- NOTE | 2017-02-06 14:48 | CONS ---
Date/Time of Note Date/Time of Note DATE: 02/06/17 TIME: 14:38 Assessment/Plan Assessment/Plan Chief Complaint/Hosp Course ASSESSMENT: 1. Flash pulmonary edema - recurrent episode with sbp elevated on presentation. now improved, symptoms improved as well. 2. ICM- LVEF 30-35%, Echo study technically difficult. LV gram previously with lvef with global hypokinesis lvef 35% 3. Acute on chronic diastolic+systolic heart failure precipitated by hypertensive crisis. 4. NSTEMI- mild trop elevation in troponin, likely triggered by HTN/Hypoxic episode. 5 Chronic renal failure on dialysis failed to prior transplants per history. 6 Hyperlipidemia. 7. CAD- s/p many previous PCI. known DOUGH PANNER ostial LCx with L/R-L collaterals. diffusely diseased small branch of D1. patent lad/Diag stents. distal RCA disease s/p PCI 11/2016 after FFR + Impression: - con asa 81mg daily - cont plavix 75 mg daily - cont coreg 3.125mg po bid - cont statin - ok to cont isosorbide di nitrate if dizziness improves, if it continues will d /c. - on clonidine per nephrology, - trop downtrending, pt without chest pain. likely demand related give htn event. cont dapt/statin as above - consider BiV ICD placement as outpt. d/w patient family via phone Problems: Consultation Date/Type/Reason Admit Date/Time Feb 04, 2017 at 12:01 Initial Consult Date 02/03/17 Type of Consultation: cardiology Referring Provider: POP BOYCE MD 24 HR Interval Summary Free Text/Dictation no acute events. pt states with bp meds has been feeling more fatigued/dizzy. pt denies any chest pain, sob is stable at baseline. he is tolerating iHD this am, bp 130s tele reviewed: NSR, no events Exam/Review of Systems Vital Signs Vitals Vital Signs Date Time Temp Pulse Resp B/P Pulse Ox O2 Delivery O2 Flow Rate FiO2 02/06/17 12:27 77 02/06/17 11:37 98.2 18 143/70 99 02/06/17 08:20 Nasal Cannula 3.0 02/03/17 05:27 40 Intake and Output 02/05/17 02/05/17 02/06/17 15:00 23:00 07:00 Intake Total 360 ml Output Total 0 ml Balance 360 ml Exam Constitutional: alert, oriented, well developed Psych: depression, no complaints Head: atraumatic, normocephalic Eyes: EOMI, nl conjunctiva, nl lids ENMT: nl nasal mucosa & septum, other (poor dentition) Neck: non-tender, supple, No jvd Respiratory: crackles in bases Cardiovascular: nl pulses, regular rate and rhythm, systolic murmur, No edema, No gallop, No irregular rhythm Gastrointestinal: non-tender, soft Musculoskeletal: nl extremities to inspection Extremities: normal pulses Neurological: FURNITURE REMOVALIST II-XII intact, nl mental status, nl speech, nl strength Results Result Diagram: 02/05/17 0643 02/05/17 0643 Results 24 hrs Laboratory Tests Test 02/06/17 06:30 Vitamin B12 Level 740 Thyroid Stimulating Hormone (TSH) 1.030 Medications Medications Current Medications Allopurinol (Zyloprim) 100 mg DAILY PO Last administered on 02/06/17 13:40; Admin Dose 100 MG; Start 02/03/17 at 09:00 Alprazolam (Xanax) 0.25 mg QHS PRN PO ANXIETY; Start 02/02/17 at 13:30 Aspirin (Halfprin) 81 mg QHS PO Last administered on 02/05/17 21:52; Admin Dose 81 MG; Start 02/02/17 at 21:00 Atorvastatin Calcium (Lipitor) 40 mg QHS PO Last administered on 02/05/17 21: 50; Admin Dose 40 MG; Start 02/02/17 at 21:00 Carisoprodol (Soma) 175 mg DAILY PRN PO MUSCLE SPASMS; Start 02/02/17 at 13:30 Gabapentin (Neurontin) 100 mg QHS PO Last administered on 02/05/17 21:52; Admin Dose 100 MG; Start 02/02/17 at 21:00 Nitroglycerin (Nitroglycerin (Benjamin)) 1 spray Q5M PRN TL CHEST PAIN; Start at 13:30 Ranolazine (Ranexa) 500 mg Q12 PO Last administered on 02/06/17 13:39; Admin Dose 500 MG; Start 02/02/17 at 21:00 Ropinirole HCl (Requip) 0.5 mg TID PO Last administered on 02/06/17 13:39; Admin Dose 0.5 MG; Start 02/02/17 at 21:00 Zolpidem Tartrate (Ambien) 7.5 mg QHS PRN PO INSOMNIA Last administered on 02/05 22:02; Admin Dose 7.5 MG; Start 02/02/17 at 13:30 Ondansetron HCl (Zofran Tab) 4 mg Q6H PRN PO NAUSEA AND/OR VOMITING; Start at 13:30 Ondansetron HCl (Zofran Inj) 4 mg Q6H PRN IV NAUSEA AND/OR VOMITING; Start at 13:30 Acetaminophen (Tylenol Tab) 650 mg Q6H PRN PO PAIN LEVEL 1-3 OR FEVER; Start at 13:30 Morphine Sulfate (morphine) 2 mg Q4H PRN IV PAIN LEVEL 7-10; Start 02/02/17 at 13:30 Docusate Sodium (Colace) 100 mg Q12H PRN PO CONSTIPATION Last administered on 09:05; Admin Dose 100 MG; Start 02/02/17 at 13:30 Magnesium Hydroxide (Milk Of Mag) 30 ml DAILY PRN PO CONSTIPATION; Start at 13:30 Bisacodyl (Dulcolax) 5 mg DAILY PRN PO CONSTIPATION; Start 02/02/17 at 13:30 Pantoprazole (Protonix Tab) 40 mg DAILY@06 PO Last administered on 02/06/17 06 :05; Admin Dose 40 MG; Start 02/03/17 at 06:00 Heparin Sodium (Porcine) (Heparin (5000 Units/0.5 ml)) 5,000 unit Q8 SC Last administered on 02/02/17 16:38; Admin Dose 5,000 UNIT; Start 02/02/17 at 14:00 Acetaminophen/ Hydrocodone Bitart (Mears (7.5-325)) 1 tab DAILY PRN PO SEVERE PAIN LEVEL 7-10; Start 02/02/17 at 18:00 Losartan Potassium (Cozaar) 25 mg DAILY PO Last administered on 02/06/17 13:40 ; Admin Dose 25 MG; Start 02/03/17 at 10:00 Clopidogrel Bisulfate (plaVIX) 75 mg QHS PO Last administered on 02/05/17 21: 51; Admin Dose 75 MG; Start 02/03/17 at 21:00 Carvedilol (Coreg) 3.125 mg BID PO Last administered on 02/06/17 13:41; Admin Dose 3.125 MG; Start 02/03/17 at 21:00 Isosorbide Dinitrate (Isordil) 5 mg TID PO Last administered on 02/06/17 13:42 ; Admin Dose 5 MG; Start 02/03/17 at 21:00 Sorbitol (Sorbitol 70%) 30 ml Q6H PRN PO CONSTIPATION Last administered on 02/04 16:13; Admin Dose 30 ML; Start 02/04/17 at 07:30 Polyethylene Glycol (Miralax) 17 gm DAILY PO Last administered on 02/06/17 13: 39; Admin Dose 17 GM; Start 02/04/17 at 09:00 Bisacodyl (Dulcolax Supp) 10 mg BID PRN IN CONSTIPATION; Start 02/04/17 at 07: 30 Clonidine (Catapres) 0.1 mg QID PRN PO ELEVATED BLOOD PRESSURE; Start 02/05/17 at 08:30 SUSANA VASQUEZ Feb 06, 2017 14:48
--- NOTE | 2017-02-06 18:51 | DS ---
DATE OF ADMISSION: 02/04/2017 DATE OF DISCHARGE: 02/06/2017 REASON FOR ADMISSION: Congestive heart failure. HISTORY OF PRESENT ILLNESS: Please see my full dictated history and physical for details. Briefly, this is a 71-year-old gentleman with end-stage renal disease maintained on outpatient hemod ialysis every Thursday, Thursday and Thursday, who also has a known history of ischemic cardiomyopathy and is status post a non-ST elevation myocardial infarction complicated by CHF in November of this y ear, who is now admitted with recurrent CHF. Of note, in November, he did undergo PCI and stenting with a drug-eluting stent in the distal RCA an d a prior echocardiogram showed EF of approximately 35%. HOSPITAL COURSE: Patient was admitted. Chest x-ray was consistent with CHF. EKG showed left bundl e branch block which is chronic with no acute changes. He was admitted to the monitored unit. He was ruled out for an MD with serial troponins. He under went vigorous dialysis with ultrafiltration with marked improvement. Low dose Losartan 25 mg daily was added to his regimen. Follow up echocardiogram was done which showed global LV systolic dysfunction, ejection fraction of 30% to 35%. There was moderate mitral valve regurgitation, no significant aortic stenosis. There w as mild aortic valve regurgitation. He was also seen in consultation by Dr. Arroyo from cardiology service, who reviewed the echocardio gram and felt the very mild troponin elevation was due to hypertension and hypoxemia and make plans to see the patient in outpatient followup to consider further intervention. He was maintained on his aspirin, Plavix, beta heather and statin and as mentioned, I added Losartan , which was well tolerated. He will be considered for a b.i.d. ICD placement as an outpatient. At the time of discharge, the patient felt markedly better. His weight lowered with ultrafiltration and was in no acute distress. DISCHARGE DIAGNOSES: 1. Congestive heart failure due to fluid overload, resolved with vigorous ultrafiltration. 2. Ischemic cardiomyopathy with an ejection fraction approximately 30% to 35%: To consider b.i.d. implantable cardioverter defibrillator placement in the future as an outpatient. 3. Left bundle branch block, chronic. 4. End-stage renal disease maintained on outpatient dialysis every Thursday, Thursday, and Thursday. 5. Status post non-ST elevation myocardial infarction in November of 2016. Status post percutaneou s coronary intervention and stenting of the distal RCA at that time. 6. History of multiple cardiac stents placed in the past. 7. Hypertension. 8. Hyperlipidemia. 9. Diabetes, currently diet controlled. 10. 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 11. Restless legs syndrome, controlled on requisite. 12. Gastroesophageal reflux disease. 13. Hyperlipidemia, on treatment. DISPOSITION: Home. FOLLOWUP: Will be with Dr. Boyce. CONDITION ON DISCHARGE: Improved. DISCHARGE MEDICATIONS: As per the medical reconciliation sheet. Dictated By: POP BOYCE MD, MM/RAYA Conf#: [id number] DID#: [id number]
== END 2017-02-06 15:25 | disposition home or self-care (01) | DRG 291 ==
LOC: E/R 07:39 → MS4 12:57 → OBSVTOIN 02-04 12:01
PROVIDERS: ADMIT Internal Medicine; ATTEND Internal Medicine
DX: I50.43 Acute on chronic combined systolic (congestive) and diastolic (congestive) heart failure (principal); N18.6 End stage renal disease; J81.0 Acute pulmonary edema; E11.22 Type 2 diabetes mellitus with diabetic chronic kidney disease; I13.2 Hypertensive heart and chronic kidney disease with heart failure and with stage 5 chronic kidney disease, or end stage renal disease; I25.5 Ischemic cardiomyopathy; I25.2 Old myocardial infarction; I44.7 Left bundle-branch block, unspecified; Z99.2 Dependence on renal dialysis; E11.9 Type 2 diabetes mellitus without complications; G25.81 Restless legs syndrome; K21.9 Gastro-esophageal reflux disease without esophagitis; E78.5 Hyperlipidemia, unspecified; I25.10 Atherosclerotic heart disease of native coronary artery without angina pectoris; I73.9 Peripheral vascular disease, unspecified; R53.81 Other malaise
CPT/HCPCS: 36415; 36600; 71010; 80048; 80053; 80061; 82306; 82550; 82553; 82607; 82803; 83880; 84403; 84443; 84484; 85025; 85610; 85730; 90935; 93005; 93306; 94640; 94660; 94664; 96372; G0378; J1644

== ENCOUNTER 2017-03-09 07:55 | Observation (INO) | payer MEDICARE, OTHER ==
[~2017-03-09] VITALS: Ht 170.2 cm; Wt 80.5 kg
[2017-03-09] VITALS (13 sets, daily range): BP systolic 110–172; BP diastolic 60–92; PULSE 87–106; RESP 18–20; TEMP 98.3; Ht 170.2 cm; Wt 80.5 kg
[~2017-03-09 07:55] MED LIST changes: +LOSA25TA5 PO
[2017-03-09] MEDS ORDERED: DICLOFENAC SODIUM 37.5 MG/ML VIAL IV STA (08:30)
--- NOTE | 2017-03-09 08:34 | ERA ---
ER Documentation Chief Complaint Date/Time DATE: 03/09/17 TIME: 08:31 Chief Complaint CP ONSET LAST NIGHT AT 2200 W/ EXTENSIVE CA HX. HPI This is a 71-year-old male with a history of 13 heart attacks and has 15 cardiac stents. He is also on hemodialysis. Did not go to dialysis this morning at 830. He states over the past week that he has had off and on pain in his chest described as the lower bilateral parasternal area in the left lower anterior ribs. He says the pain is worse when he coughs, twists his trunk. He says the pain he has been having this past week is not like any chest pain that he has had when he has his heart attacks. He says this pain is completely different. He thought the pain might be reflux so he took to Nexium' s and some antacids with no change. He tried taking his home nitroglycerin which he said did not make much difference. Patient said he has a chronic cough does not seem to be worse, he denies any fevers. He denies any shortness of breath diaphoresis palpitations syncope. During exam the patient was coughing a few times and was wincing in pain and grabbing his left lower anterior ribs and lower sternum and said "there is the pain began when I cough" ROS All systems reviewed and are negative except as per history of present illness. Medications Home Meds Active Scripts Losartan Potassium* (Losartan Potassium*) 25 Mg Tablet, 25 MG PO DAILY for 90 Days, TAB 3 Refills Prov:POP BOYCE MD 02/06/17 Pantoprazole* (Pantoprazole*) 40 Mg Tablet., 40 MG PO Q12 for 60 Days Prov:ALONZO SERRA MD 12/05/16 Reported Medications Tiotropium [place] (Spiriva Respimat) 4 Gm Mist.inhal, 2 PUFF INHALATION DAILY, #1 INHALER 01/28/17 Nitroglycerin* (Nitroglycerin* Layton) 400 Mcg/Layton - 12 Gm Layton, 1 SPRAY TL Q5M Y for CHEST PAIN, SPRAY 01/28/17 Ranolazine* (Ranexa*) 500 Mg Tab.sr.12h, 500 MG PO Q12, TAB 01/28/17 Sevelamer Carbonate* (Renvela*) 800 Mg Tablet, 0.8 GM PO WITH MEALS, TAB 01/28/17 Zolpidem Tartrate* (Zolpidem Tartrate*) 5 Mg Tablet, 7.5 MG PO QHS Y for INSOMNIA, #30 TAB 12/01/16 Ropinirole Hcl* (Ropinirole Hcl*) 0.5 Mg Tablet, 0.5 MG PO TID, TAB 12/01/16 Clopidogrel Bisulfate (Clopidogrel) 75 Mg Tablet, 75 MG PO QHS, #30 TAB 12/01/16 Hydrocodone/Acetaminophen (Elora 7.5-325 Tablet) 1 Each Tablet, 1 EACH PO DAILY Y for SEVERE PAIN LEVEL 7-10, TAB 12/01/16 Gabapentin* (Gabapentin*) 100 Mg Capsule, 100 MG PO QHS, #90 CAP 12/01/16 Carisoprodol* (Carisoprodol*) 350 Mg Tablet, 175 MG PO DAILY Y for MUSCLE SPASMS , TAB 12/01/16 Atorvastatin* (Atorvastatin*) 40 Mg Tablet, 40 MG PO QHS, #30 TAB 12/01/16 Aspirin* (Aspirin* EC) 81 Mg Tablet.dr, 81 MG PO QHS, TAB 12/01/16 Alprazolam* (Alprazolam*) 0.25 Mg Tablet, 0.25 MG PO QHS Y for ANXIETY, TAB 12/01/16 Allopurinol* (Allopurinol*) 100 Mg Tablet, 100 MG PO DAILY, TAB 12/01/16 Allergies Allergies: Coded Allergies: No Known Allergy (Unverified , 02/02/17) PT. WAS ON BICILLIN BEFORE, WAS TOLD BY THE DOCTOR THAT HE IS NOT ALLERGIC TO PCN. PMhx/Soc History of Surgery: No Anesthesia Reaction: No Hx Neurological Disorder: No Hx Respiratory Disorders: No Hx Cardiac Disorders: No Hx Psychiatric Problems: No Hx Miscellaneous Medical Probl: Yes (DIalysis, stents) Hx Alcohol Use: No Hx Substance Use: No Hx Tobacco Use: No Smoking Status: Never smoker FmHx Family History: coronary disease Physical Exam Vitals Vital Signs Date Time Temp Pulse Resp B/P Pulse Ox O2 Delivery O2 Flow Rate FiO2 03/09/17 10:38 Nasal Cannula 3.0 03/09/17 10:00 98.3 85 20 154/75 98 Room Air 03/09/17 08:36 Nasal Cannula 3 03/09/17 08:04 98.1 84 20 155/80 97 Physical Exam Const: Well-developed, well-nourished Head: Atraumatic, normocephalic Eyes: Normal Conjunctiva, PERRLA, EOMI, normal sclera, no nystagmus ENT: Normal External Ears, Nose and Mouth, moist mucus membranes. Neck: Full range of motion. No meningismus, no lymphadenopathy. Resp: Clear to auscultation bilaterally, no wheezing, rhonchi, rales Cardio: Regular rate and rhythm, no murmurs, S1 S2 present, there is reproducible pain to palpation when palpating the bilateral parasternal costal margins at the lower rib cage and on the left lower anterior ribs. The pain is completely reproducible and very tender to palpation. Abd: Soft, non tender x 4, non distended. Normal bowel sounds, no guarding or rebound, no pulsitile abdominal masses or bruits Skin: No petechiae or rashes, no ecchymosis , no maculopapular rash Back: No midline or flank tenderness Ext: No cyanosis, or edema, FROM x 4, normal inspection, neurovascularly intact x 4 Neur: Awake and alert, STR 5/5 x 4, sensation intact x 4, no focal findings, cerebellum intact Psych: Normal Mood and Affect Result Diagram: 03/09/17 0820 03/09/17 0820 Results 24 hrs Laboratory Tests Test 03/09/17 08:20 White Blood Count 7.010^3/ul Red Blood Count 3.2910^6/ul Hemoglobin 9.6g/dl Hematocrit 32.9% Mean Corpuscular Volume 100.0fl Mean Corpuscular Hemoglobin 29.2pg Mean Corpuscular Hemoglobin Concent 29.2g/dl Red Cell Distribution Width 17.2% Platelet Count 92303^3/UL Mean Platelet Volume 9.9fl Neutrophils % 77.3% Lymphocytes % 13.4% Monocytes % 5.6% Eosinophils % 3.2% Basophils % 0.4% Nucleated Red Blood Cells % 0.0/100WBC Neutrophils # 5.410^3/ul Lymphocytes # 0.910^3/ul Monocytes # 0.410^3/ul Eosinophils # 0.210^3/ul Basophils # 0.010^3/ul Nucleated Red Blood Cells # 0.010^3/ul Sodium Level 139mmol/L Potassium Level 4.8mmol/L Chloride Level 98mmol/L Carbon Dioxide Level 28mmol/L Anion Gap 18 Blood Urea Nitrogen 65mg/dl Creatinine 8.59mg/dl Glucose Level 91mg/dl Calcium Level 9.9mg/dl Troponin I 0.176ng/ml Current Medications Medications (Trade) Dose Ordered Sig/Leonardo Route PRN Reason Start Time Stop Time Status Last Admin Dose Admin Diclofenac Sodium (Dyloject) 37.5 mg ONCE STAT IV 03/09/17 08:30 03/09/17 08:31 Cancel Ketorolac Tromethamine (Toradol) 60 mg ONCE STAT IM 03/09/17 08:44 03/09/17 08:45 DC 03/09/17 08:55 Acetaminophen/ Hydrocodone Bitart (Elora (5/325)) 1 tab ONCE ONCE PO 03/09/17 09:00 03/09/17 09:01 DC 03/09/17 08:53 IV Flush (NS 3 ml) 3 ml PER PROTOCOL IV 03/09/17 10:30 UNV Ondansetron HCl (Zofran Tab) 4 mg Q6H PRN PO NAUSEA AND/OR VOMITING 03/09/17 10:30 UNV Ondansetron HCl (Zofran Inj) 4 mg Q6H PRN IV NAUSEA AND/OR VOMITING 03/09/17 10:30 UNV Nitroglycerin (Nitroglycerin (Sl Tab) 0.4 Mg) 1 tab Q5M PRN SL CHEST PAIN 03/09/17 10:30 UNV Acetaminophen (Tylenol Tab) 650 mg Q6H PRN PO PAIN LEVEL 1-3 OR FEVER 03/09/17 10:30 UNV Acetaminophen/ Hydrocodone Bitart (Elora (5/325)) 1 tab Q6H PRN PO PAIN LEVEL 4-6 03/09/17 10:30 UNV Zolpidem Tartrate (Ambien) 5 mg QHS PRN PO INSOMNIA 03/09/17 10:30 03/09/17 10:34 DC Docusate Sodium (Colace) 100 mg Q12H PRN PO CONSTIPATION 03/09/17 10:30 UNV Bisacodyl (Dulcolax) 5 mg DAILY PRN PO CONSTIPATION 03/09/17 10:30 UNV Pantoprazole (Protonix Tab) 40 mg DAILY@06 PO 03/10/17 06:00 03/10/17 06:00 DC Allopurinol (Zyloprim) 100 mg DAILY PO 03/10/17 09:00 UNV Alprazolam (Xanax) 0.25 mg QHS PRN PO ANXIETY 03/09/17 10:30 UNV Aspirin (Halfprin) 81 mg QHS PO 03/09/17 21:00 UNV Atorvastatin Calcium (Lipitor) 40 mg QHS PO 03/09/17 21:00 UNV Carisoprodol (Soma) 175 mg DAILY PRN PO MUSCLE SPASMS 03/09/17 10:30 UNV Clopidogrel Bisulfate (plaVIX) 75 mg QHS PO 03/09/17 21:00 UNV Gabapentin (Neurontin) 100 mg QHS PO 03/09/17 21:00 UNV Acetaminophen/ Hydrocodone Bitart (Elora (7.5-325)) 7.5 tab DAILY PRN PO SEVERE PAIN LEVEL 7-10 03/09/17 10:30 UNV Losartan Potassium (Cozaar) 25 mg DAILY PO 03/10/17 09:00 UNV Pantoprazole (Protonix Tab) 40 mg Q12 PO 03/09/17 21:00 UNV Ranolazine (Ranexa) 500 mg Q12 PO 03/09/17 21:00 UNV Ropinirole HCl (Requip) 0.5 mg TID PO 03/09/17 13:00 UNV Sevelamer Carbonate (Renvela) 0.8 gm WITH MEALS PO 03/09/17 12:00 UNV Zolpidem Tartrate (Ambien) 7.5 mg QHS PRN PO INSOMNIA 03/09/17 10:30 UNV Procedures/MDM EKG: Rate/Rhythm: Normal sinus rhythm, left bundle branch block QRS, ST, QT: NORMAL TX, wide QRS, QT] Impression: Left bundle branch block PROCEDURE: XR Chest. TECHNIQUE: Single frontal radiograph. CLINICAL INDICATION: Chest Pain. COMPARISON: 12/04/2016. FINDINGS: There is increased blunting of the left costophrenic angle. Lung volumes remain shallow. There is stable appearance of the cardiac silhouette with aortic calcifications. IMPRESSION: New small left pleural effusion with associated atelectasis and/or consolidation. RPTAT: EE .Igor Soria MD, MD Date Time Electronically viewed and signed by .Igor Soria MD, on 03/09/2017 08:53 .C/ CC: LENNY OLMEDO DO Patient has elevated troponin is could be cardiac elevation or could be renal clearance issue. On questioning the patient he says this pain is not like his prior heart attacks however he is now saying that he did feel some pressure in his neck which is like his old heart attacks. I spoke with his primary and we will admit him to the hospital for dialysis here as well as to rule out cardiac pathology Patient's symptoms are concerning for cardiac cause will require inpatient workup and continuous monitoring. Further w/u for ischemia, arrhythmia, PE or dissection will be deferred to the inpatient team. Accepting Care Team: Current data and ongoing care discussed. Time: Time of admission Primary Provider: [XOXOXO] Consulting: [XOXOXO] Outstanding Data: none We will treat with 1 dose of Lovenox to cover in case his cardiac Departure Diagnosis: Primary Impression: Chest pain Qualified Code: R07.9 - Chest pain, unspecified type Condition: Stable LENNY OLMEDO DO March 09, 2017 08:34
[2017-03-09 08:37] LABS: ADD SCAN DIFF NO
[2017-03-09 08:39] LABS: BASOPHILS % 0.4 % (0.0-2.0); EOSINOPHILS # 0.2 10^3/ul (0.0-0.5); EOSINOPHILS % 3.2 % (0.0-7.0); HEMATOCRIT 32.9 % (42.0-52.0); HEMOGLOBIN 9.6 g/dl (14.0-18.0); LYMPHOCYTES # 0.9 10^3/ul (0.8-2.9); LYMPHOCYTES % 13.4 % (15.0-51.0); MEAN CORPUSCULAR HEMOGLOBIN 29.2 pg (29.0-33.0); MEAN CORPUSCULAR HGB CONC 29.2 g/dl (32.0-37.0); MEAN PLATELET VOLUME 9.9 fl (7.4-10.4); MONOCYTE # 0.4 10^3/ul (0.3-0.9); MONOCYTES % 5.6 % (0.0-11.0); NEUTROPHIL # 5.4 10^3/ul (1.6-7.5); NEUTROPHILS % 77.3 % (39.0-77.0); PLATELET COUNT 158 10^3/UL (140-415); RED BLOOD COUNT 3.29 10^6/ul (4.70-6.10); RED CELL DISTRIBUTION WIDTH 17.2 % (11.5-14.5)
[2017-03-09] MEDS ORDERED: KETOROLAC 60 MG INJ IM STA (08:44)
--- NOTE | 2017-03-09 08:49 | RADRPT ---
PROCEDURE: XR Chest. TECHNIQUE: Single frontal radiograph. CLINICAL INDICATION: Chest Pain. COMPARISON: 12/04/2016. FINDINGS: There is increased blunting of the left costophrenic angle. Lung volumes remain shallow. There is stable appearance of the cardiac silhouette with aortic calcifications. IMPRESSION: New small left pleural effusion with associated atelectasis and/or consolidation. RPTAT: EE .Igor Soria MD, MD Date Time Electronically viewed and signed by .Igor Soria MD, MD on 03/09/2017 08:53 .C/
[2017-03-09 09:00] LABS: CALCIUM 9.9 mg/dl (8.4-10.2); CREATININE 8.59 mg/dl (0.61-1.24); POTASSIUM 4.8 mmol/L (3.5-5.1)
[2017-03-09] MEDS ORDERED: HYDROCODONE/APAP (5/325) TAB PO ONE (09:00)
[2017-03-09 09:25] LABS: TROPONIN-I 0.176 ng/ml (0.00-0.12)
[2017-03-09] MEDS ORDERED: NACL 0.9% 3 ML SYG IV SCH (10:30)
[2017-03-09] MEDS ORDERED: ZOLPIDEM 5 MG TAB PO PRN ×2 (10:30)
[2017-03-09] MEDS ORDERED: ACETAMINOPHEN 325 MG TAB PO PRN ×2 (10:30→11:00)
[2017-03-09] MEDS ORDERED: ONDANSETRON 4 MG INJ IV PRN ×2 (10:30→11:00)
[2017-03-09] MEDS ORDERED: DOCUSATE SODIUM 100 MG CAP PO PRN (10:30)
[2017-03-09] MEDS ORDERED: BISACODYL (EC) 5 MG TAB PO PRN (10:30)
[2017-03-09] MEDS ORDERED: CARISOPRODOL 350 MG TAB PO PRN (10:30)
[2017-03-09] MEDS ORDERED: NITROGLYCERIN (SL) 0.4 MG TAB SL PRN (10:30)
[2017-03-09] MEDS ORDERED: HYDROCODONE/APAP (7.5/325) TAB PO PRN (10:30)
[2017-03-09] MEDS ORDERED: ONDANSETRON 4 MG TAB PO PRN (10:30)
[2017-03-09] MEDS ORDERED: HYDROCODONE/APAP (5/325) TAB PO PRN (10:30)
[2017-03-09] MEDS ORDERED: ALPRAZOLAM 0.25 MG TAB PO PRN (10:30)
[2017-03-09] MEDS ORDERED: ENOXAPARIN 80 MG/0.8 ML SYG SC SCH (11:00)
--- NOTE | 2017-03-09 11:45 | HP ---
DATE OF ADMISSION: 03/09/2017 REASON FOR ADMISSION: Chest pain. HISTORY OF PRESENT ILLNESS: One of several [facility] admissions for this 71-year-old gentleman with known end-stage renal disease who dialyzes every Thursday, Thursday, and Thursday, who has a significant his tory of coronary artery disease, having had multiple MIs with a PTCA stenting in the past, known his tory of ischemic cardiomyopathy who in fact in November of this year was ruled in for a non-ST eleva tion myocardial infarction, is now admitted once again for recurrent chest pain. He states the chest pain began yesterday, but was atypical from his usual angina and that it was bot h left and right lower chest, exacerbated by twisting. He came to the ER for evaluation, chest x-ray showed mild CHF findings and his exam was notable for chest wall tenderness. However, a troponin was drawn which was mildly elevated and therefore [facility]. Currently, he is pain free at rest. PAST MEDICAL HISTORY: Please see full dictated problem list. ALLERGIES: NONE. HABITS: Tobacco: None. Alcohol: None. MEDICATIONS PRIOR TO ADMISSION: 1. Lipitor 40 mg a day. 2. Allopurinol 100 mg a day. 3. Aspirin 81 mg a day. 4. Plavix 75 mg a day. 5. Ranexa 500 mg b.i.d. 6. Requip 0.5 mg t.i.d. 7. Nephro-Evelio one daily. 8. Renvela 3 tabs t.i.d. with meals. 9. Xanax 0.25 q.8h. p.r.n. 10. Gabapentin 100 mg at bedtime. REVIEW OF SYSTEMS: As per HPI, otherwise the 14-point review of systems is unremarkable. PHYSICAL EXAMINATION: GENERAL: Awake and alert male, currently in no acute distress. VITAL SIGNS: He is afebrile, blood pressure 154/75, heart rate is 72 and regular, respirations are 12 and unlabored, O2 saturation is 98% on 2 liters. SKIN: Warm, well perfused. HEAD: Normocephalic, atraumatic. EYES: Pupils appear round and reactive. Extraocular movements are full. Sclerae are anicteric. PHARYNX: No lesions. NECK: JVP is not distended. There is no adenopathy. BACK: No CVAT. LUNGS: Show diminished breath sounds at the bases. There are no wheezes. HEART: S1, S2, soft 1-2/6 systolic murmur, unchanged. Chest wall is tender under the lower sternum as well as bilateral lower anterior rib borders. The tenderness reproduces his pain. ABDOMEN: Soft and nontender. No organomegaly, palpable old renal graft is in the left and right lo wer quadrant. EXTREMITIES: No cyanosis, clubbing or edema. He has a functioning left upper extremity AV fistula. LABORATORY DATA: White count 7.0, hemoglobin 9.6, hematocrit 32.9, platelet count 158,000. Sodium 139, potassium 4.8, chloride 98, bicarbonate 28, BUN 65, creatinine 8.59, glucose 91, calcium 9.9, t roponin 0.176. Chest x-ray shows some blunting of the left CP angle. Cardiac silhouette is unchang ed, lung wright were otherwise unremarkable. ELECTROCARDIOGRAM: Showed normal sinus rhythm with a left bundle branch block which is unchanged. PROBLEM LIST: 1. Substernal chest pain, most likely musculoskeletal. However, troponin borderline elevated, so h e needs to be admitted for further observation and therapy. 2. End-stage renal disease maintained on outpatient hemodialysis every Thursday, Thursday, and y. 3. Known ischemic cardiomyopathy with recent echocardiogram showing global hypokinesis with an LV E F of approximately 35%. 4. Status post non-ST elevation DC in November of this year, underwent angiography and stenting of the distal RCA. 5. Hyperlipidemia, on therapy. 6. Hypertension. 7. GERD. 8. Status post failed renal transplantation x2. 9. Remote history of gout, currently asymptomatic. 10. Restless leg syndrome, controlled on Requip. 11. Diabetes mellitus, currently diet controlled. RECOMMENDATIONS: 1. Admit to hospital. 2. Rule out myocardial infarction. 3. Urgent dialysis. 4. Cardiology consultation with Dr. Perez has been requested. Dictated By: POP BOYCE MD, MM/RAYA Conf#: [id number] DID#: [id number]
[2017-03-09 13:08] LABS: CK-MB 0.92 ng/ml (0.0-2.4); TROPONIN-I 0.13 ng/ml (0.00-0.12)
[2017-03-09] MEDS: ROPINIROLE 0.25 MG TAB PO SCH ×2 (15:45→21:00)
[2017-03-09] MEDS: SEVELAMER CARBONATE 0.8 GM PKT PO SCH ×2 (15:45→17:29)
[2017-03-09] MEDS: ALBUMIN HUMAN 25% 100 ML IV SCH ×2 (18:44→18:45)
[2017-03-09] MEDS: ALBUTEROL 0.083% (NEB) 2.5 MG/3 ML AMP HHN PRN ×2 (19:37→23:45)
[2017-03-09 19:53] LABS: CK-MB 0.94 ng/ml (0.0-2.4)
[2017-03-09 19:57] LABS: TROPONIN-I 0.144 ng/ml (0.00-0.12)
[2017-03-09] MEDS ORDERED: ASPIRIN (EC) 81 MG TAB PO SCH (21:00)
[2017-03-09] MEDS ORDERED: CLOPIDOGREL 75 MG TAB PO SCH (21:00)
[2017-03-09] MEDS ORDERED: PANTOPRAZOLE (EC) 40 MG TAB PO SCH (21:00)
[2017-03-09] MEDS ORDERED: GABAPENTIN 100 MG CAP PO SCH (21:00)
[2017-03-09] MEDS ORDERED: RANOLAZINE (SR) 500 MG TAB PO SCH (21:00)
[2017-03-09] MEDS ORDERED: ATORVASTATIN 40 MG TAB PO SCH (21:00)
[2017-03-10 00:01] VITALS: PULSE 107
[2017-03-10 00:16] VITALS: BP 133/62; RESP 18
[2017-03-10 04:03] VITALS: PULSE 98
[2017-03-10 04:43] VITALS: BP 148/69; RESP 18
[2017-03-10] MEDS ORDERED: PANTOPRAZOLE (EC) 40 MG TAB PO SCH (06:00)
[2017-03-10 06:52] VITALS: BP 140/63; RESP 18
[2017-03-10] MEDS: ALBUTEROL 0.083% (NEB) 2.5 MG/3 ML AMP HHN PRN (07:07)
[2017-03-10 08:16] VITALS: PULSE 89
[2017-03-10] MEDS ORDERED: ALLOPURINOL 100 MG TAB PO SCH (09:00)
[2017-03-10] MEDS ORDERED: LOSARTAN 25 MG TAB PO SCH (09:00)
--- NOTE | 2017-03-10 10:19 | DS ---
DATE OF ADMISSION: 03/09/2017 DATE OF DISCHARGE: 03/10/2017 REASON FOR ADMISSION: Chest pain. HISTORY OF PRESENT ILLNESS: Please see my full dictated history and physical for details. Briefly, this is a 71-year-old gentleman with end-stage renal disease, diabetes as well as a longsta nding history of cardiac disease, ischemic cardiomyopathy status post prior DE and stenting. Most re cently in November of this year underwent PCI and stenting for a non-ST elevation DE and was admitte d with a 24-hour history of chest pain. HOSPITAL COURSE: This patient was admitted. Serial troponins were unremarkable. Chest x-ray on ad mission showed mild heart failure as it was his typical day of dialysis. EKG did not show any acute changes, albeit did have his chronic left bundle branch block. The patient was dialyzed with 3 to 3.5 liters of fluid removed. Symptoms markedly recovered. At th e time of discharge his pain which was felt most likely gastrointestinal had improved with higher do se PPI therapy. He was thus discharged in stable condition to continue his outpatient dialysis. Next treatment tomor row. DISCHARGE DIAGNOSES: 1. Substernal chest discomfort, most likely GI in etiology, status post rule out myocardial infarct ion. 2. Left bundle branch block on EKG, unchanged. 3. Known ischemic cardiomyopathy. Echocardiogram in November of this year showing global hypokines is with LVEF of 35%. 4. Status post non-ST elevation DE in November of this year. Status post percutaneous coronary int ervention and stenting of the distal RCA. 5. End-stage renal disease due to diabetes, maintained on outpatient hemodialysis every Thursday, Thu, and Thursday. 6. Hyperlipidemia. 7. Hypertension. 8. GERD now on high dose PPI therapy. 9. Remote history of gout, currently quiescent. 10. Status post failed renal transplantation times x2. 11. Restless leg syndrome controlled on Requip. 12. Diabetes mellitus, currently diet controlled. DISPOSITION: Home. FOLLOWUP: Will be with Dr. Boyce. DISCHARGE MEDICATIONS: Unchanged and as per the medical reconciliation sheet. He is also to follow up with Dr. Perez, his side panel padder. Dictated By: POP BOYCE MD, MM/NTS Conf#: [id number] DID#: [id number]
--- NOTE | 2017-03-11 00:05 | CONS ---
Date/Time of Note Date/Time of Note DATE: 03/10/17 TIME: 23:51 Assessment/Plan Assessment/Plan Chief Complaint/Hosp Course ASSESSMENT: 1. Atypical chest pain- pt with no acute EKG changes, has chronic LBBB. trop elevated mildly but flat/downtrending. no e/o to suggest issues with recent stent. has chronic unrevascularizable territory (LCx and D1). will need cont bp control and cad rf modification. 2. ICM- LVEF 30-35%, Echo study technically difficult. LV gram previously with lvef with global hypokinesis lvef 35% 3.Chronic diastolic+systolic heart failure 4. NSTEMI- type ii likely as above. 5 Chronic renal failure on dialysis failed to prior transplants per history. 6 Hyperlipidemia. 7. CAD- s/p many previous PCI. 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 diffusely diseased small branch of D1. patent lad/Diag stents. distal RCA disease s/p PCI 11/2016 after FFR + Impression: - con asa 81mg daily - cont plavix 75 mg daily - cont losartan - cont statin - f/u as outpt for med adjustment (? if can tolerate bb/nitrate as previous intolerance) - consider BiV ICD placement as outpt given previous recurrent HF episodes. Problems: Consultation Date/Type/Reason Admit Date/Time March 09, 2017 at 10:29 Date of Consultation: March 10, 2017 Type of Consultation: Cardiology Reason for Consultation Chest Pain Referring Provider: POP BOYCE MD Hx of Present Illness Mr. Clemens is a 71 y.o. man with h/o of ICM s/p multiple OR, CAD s/p numerous PCI last 11/2016 to RCA, chronic severe systolic heart failure, HTN, DM2, ESRD on iHD MWF via L AV fistula. Pt reports having increased sharp left and right lower chest pain yesterday. Pain was not related to activity, no sob/n/v/sweating associated. has stable chronic dyspnea on exertion Pt on chronic o2 via NC. states pain worse when twisting, now improved.Pt did presented to ED was found to have mild trop elevation and was admitted. pt reports compliance with therapy, no bleeding. no palpitations, dizziness, syncope. no pnd, orthopnea,, edema. bp fairly controlled, attending iHD 3x/week. Pt states he has not been walking around much, but no cp with walking to bathroom. reports increased constipation, no f/c /sweats/diarrhea. Constitutional: no complaints Eyes: no complaints ENT: no complaints Respiratory: shortness of breath Cardiovascular: chest pain Gastrointestinal: constipation Genitourinary: no complaints Musculoskeletal: no complaints Skin: no complaints Neurologic: no complaints Psychological: depression Immunologic: no complaints Past Medical History 1. Cardiac history as mentioned above. 2. Chronic kidney disease, on dialysis. via L arm fistula 3. Hypertension. 4. Hyperlipidemia. 5. Peripheral vascular disease. 6. 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 7. Ischemic cardiomyopathy with moderate systolic dysfunction, chronic systolic heart failure 8 LBBB Past Surgical History PCI kidney transplant L arm fistula placement Family History Significant Family History: other (vsf) Social History Alcohol Use: none Smoking Status: Never smoker Drug Use: none Exam/Review of Systems Vital Signs Vitals Vital Signs Date Time Temp Pulse Resp B/P Pulse Ox O2 Delivery O2 Flow Rate FiO2 03/10/17 08:16 89 03/10/17 07:11 16 99 Nasal Cannula 2.0 03/10/17 06:52 98.5 140/63 Intake and Output 03/09/17 03/09/17 03/10/17 15:00 23:00 07:00 Intake Total 740 ml 300 ml Output Total 3500 ml Balance -2760 ml 300 ml Exam Constitutional: alert, oriented, well developed. using NC Psych: chronically depressed, but improved mood this am. Head: atraumatic, normocephalic Eyes: EOMI, nl conjunctiva, nl lids ENMT: nl nasal mucosa & septum, other (poor dentition) Neck: non-tender, supple, No jvd Respiratory: crackles in bases Cardiovascular: nl pulses, regular rate and rhythm, systolic murmur, No edema, No gallop, No irregular rhythm Gastrointestinal: non-tender, soft Musculoskeletal: nl extremities to inspection Extremities: normal pulses Neurological: TRACK INSPECTING SUPERVISOR II-XII intact, nl mental status, nl speech, nl strength Results Result Diagram: 03/09/1781903/09/17819 Procedures Procedures EKG: NSR, LBBB unchanged Trop elevated mildly, but flat no sig change CXR images reviewed small left pleural effusion SUSANA VASQUEZ March 11, 2017 00:02
== END 2017-03-10 09:10 | disposition home or self-care (01) ==
LOC: E/R 07:55 → TEL 10:29
PROVIDERS: ADMIT Internal Medicine; ATTEND Internal Medicine
DX: R07.89 Other chest pain (principal); I44.7 Left bundle-branch block, unspecified; I25.5 Ischemic cardiomyopathy; E11.22 Type 2 diabetes mellitus with diabetic chronic kidney disease; I12.0 Hypertensive chronic kidney disease with stage 5 chronic kidney disease or end stage renal disease; N18.6 End stage renal disease; Z99.2 Dependence on renal dialysis; E78.5 Hyperlipidemia, unspecified; G25.81 Restless legs syndrome; I25.2 Old myocardial infarction; I50.42 Chronic combined systolic (congestive) and diastolic (congestive) heart failure; I25.10 Atherosclerotic heart disease of native coronary artery without angina pectoris
CPT/HCPCS: 71010; 80048; 82550; 82553; 84484; 85025; 87081; 90935; 93005; 94640; 94664; 96372; 96374; 99285; G0378; J1885; P9047

== ENCOUNTER 2017-03-19 07:36 | Inpatient (IN) | payer MEDICARE, OTHER ==
[2017-03-19] VITALS (12 sets, daily range): BP systolic 115–153; BP diastolic 50–86; PULSE 98–112; RESP 18–20; Ht 170.2 cm; Wt 74.0 kg
[~2017-03-19] VITALS: Ht 170.2 cm; Wt 74.0 kg
[2017-03-19] MEDS ORDERED: ASPIRIN 325 MG TAB PO STA (07:54)
[2017-03-19] MEDS ORDERED: SODIUM CHLORIDE 0.9% 1L BAG IV* STA (08:35)
[2017-03-19 08:38] LABS: ADD SCAN DIFF NO
--- NOTE | 2017-03-19 08:39 | RADRPT ---
PROCEDURE: XR Chest. CLINICAL INDICATION: Chest pain. Dyspnea. TECHNIQUE: Single frontal chest x-ray. COMPARISON: Exam dated 12/04/2016. FINDINGS: A stent overlies the right axilla and proximal right upper extremity There are atherosclerotic hammond es of the aorta. The cardiomediastinal silhouette is enlarged. There is bilateral perihilar opacity , cephalization of the pulmonary vessels, diffuse prominence of the interstitium. There is a small left effusion, new when compared the prior. There is no pneumothorax. There are no acute osseous a bnormalities. IMPRESSION: 1. Cardiomegaly with findings of mild to moderate hydrostatic edema and a new small left effusion. Correlate clinically for CHF. 2. Vascular calcifications consistent with atherosclerosis. RPTAT: GG .Jose Mckeon MD, Date Time Electronically viewed and signed by .Jose Mckeon MD, on 03/19/2017 08:39 .P/
--- NOTE | 2017-03-19 08:47 | ERA ---
ER Documentation Chief Complaint Date/Time DATE: 03/19/17 TIME: 08:39 Chief Complaint INCREASED SOB THIS AM, DENIES CP HPI 71-year-old male presents emergency room for shortness of breath that began this morning as well as a crushing pressure-like feeling in his chest as well as a cough that has been going on for several days with some productive yellow sputum peer. He has generalized weakness and malaise. Has also had chills. He denies fevers. Denies focal weakness or confusion. ROS All systems reviewed and are negative except as per history of present illness. Medications Home Meds Active Scripts Losartan Potassium* (Losartan Potassium*) 25 Mg Tablet, 25 MG PO DAILY for 90 Days, TAB 3 Refills Prov:POP BOYCE MD 02/06/17 Pantoprazole* (Pantoprazole*) 40 Mg Tablet.dr, 40 MG PO Q12 for 60 Days Prov:ALONZO SERRA MD 12/05/16 Reported Medications Tiotropium [place] (Spiriva Respimat) 4 Gm Mist.inhal, 2 PUFF INHALATION DAILY, #1 INHALER 01/28/17 Nitroglycerin* (Nitroglycerin* [place]) 400 Mcg/[place] - 12 Gm [place], 1 SPRAY TL Q5M Y for CHEST PAIN, SPRAY 01/28/17 Ranolazine* (Ranexa*) 500 Mg Tab.sr.12h, 500 MG PO Q12, TAB 01/28/17 Sevelamer Carbonate* (Renvela*) 800 Mg Tablet, 0.8 GM PO WITH MEALS, TAB 01/28/17 Zolpidem Tartrate* (Zolpidem Tartrate*) 5 Mg Tablet, 7.5 MG PO QHS Y for INSOMNIA, #30 TAB 12/01/16 Ropinirole Hcl* (Ropinirole Hcl*) 0.5 Mg Tablet, 0.5 MG PO TID, TAB 12/01/16 Clopidogrel Bisulfate (Clopidogrel) 75 Mg Tablet, 75 MG PO QHS, #30 TAB 12/01/16 Hydrocodone/Acetaminophen (Aneta 7.5-325 Tablet) 1 Each Tablet, 1 EACH PO DAILY Y for SEVERE PAIN LEVEL 7-10, TAB 12/01/16 Gabapentin* (Gabapentin*) 100 Mg Capsule, 100 MG PO QHS, #90 CAP 12/01/16 Carisoprodol* (Carisoprodol*) 350 Mg Tablet, 175 MG PO DAILY Y for MUSCLE SPASMS , TAB 12/01/16 Atorvastatin* (Atorvastatin*) 40 Mg Tablet, 40 MG PO QHS, #30 TAB 12/01/16 Aspirin* (Aspirin* EC) 81 Mg Tablet.dr, 81 MG PO QHS, TAB 12/01/16 Alprazolam* (Alprazolam*) 0.25 Mg Tablet, 0.25 MG PO QHS Y for ANXIETY, TAB 12/01/16 Allopurinol* (Allopurinol*) 100 Mg Tablet, 100 MG PO DAILY, TAB 12/01/16 Allergies Allergies: Coded Allergies: No Known Allergy (Unverified , 03/19/17) PT. WAS ON BICILLIN BEFORE, WAS TOLD BY THE DOCTOR THAT HE IS NOT ALLERGIC TO PCN. PMhx/Soc History of Surgery: Yes (SHERIE HIP SURGERT, [facility]) Anesthesia Reaction: No Hx Neurological Disorder: Yes (NEUROPATHY) Hx Respiratory Disorders: No Hx Cardiac Disorders: Yes (CARDIOMYPOPATHY) Hx Psychiatric Problems: Yes (ANXIETY) Hx Miscellaneous Medical Probl: No Hx Alcohol Use: No Hx Substance Use: No Hx Tobacco Use: No Smoking Status: Never smoker Physical Exam Vitals Vital Signs Date Time Temp Pulse Resp B/P Pulse Ox O2 Delivery O2 Flow Rate FiO2 03/19/17 10:39 101 24 121/64 100 BIPAP Nasal Cannula 03/19/17 09:45 111 24 121/76 100 Nasal Cannula 03/19/17 09:30 118 100 35 03/19/17 09:07 120 16 162/77 94 Nasal Cannula 2.0 03/19/17 07:57 Nasal Cannula 2 03/19/17 07:40 Nasal Cannula 2.0 03/19/17 07:36 98.0 110 16 147/76 94 Physical Exam Const: [] Mild distress Head: Atraumatic Eyes: Normal Conjunctiva ENT: Normal External Ears, Nose and Mouth. Neck: Full range of motion..~ No meningismus. Resp: Bibasilar rales Cardio: Regular tachycardia, no murmurs Abd: Soft, non tender, non distended. Normal bowel sounds Skin: No petechiae or rashes Back: No midline or flank tenderness Ext: No cyanosis, or edema Neur: Awake and alert and oriented 3, cranial nerves II through XII intact, no cerebellar deficits Psych: Normal Mood and Affect Result Diagram: 03/19/17 0810 03/19/17 0810 Results 24 hrs Laboratory Tests Test 03/19/17 08:10 03/19/17 08:45 White Blood Count 5.110^3/ul Red Blood Count 3.2110^6/ul Hemoglobin 9.5g/dl Hematocrit 32.5% Mean Corpuscular Volume 101.2fl Mean Corpuscular Hemoglobin 29.6pg Mean Corpuscular Hemoglobin Concent 29.2g/dl Red Cell Distribution Width 17.9% Platelet Count 31906^3/UL Mean Platelet Volume 9.8fl Neutrophils % 72.3% Lymphocytes % 18.5% Monocytes % 6.6% Eosinophils % 1.6% Basophils % 0.6% Nucleated Red Blood Cells % 0.0/100WBC Neutrophils # 3.710^3/ul Lymphocytes # 1.010^3/ul Monocytes # 0.310^3/ul Eosinophils # 0.110^3/ul Basophils # 0.010^3/ul Nucleated Red Blood Cells # 0.010^3/ul Prothrombin Time 14.2Sec Prothrombin Time Ratio 1.1 INR International Normalized Ratio 1.10 Activated Partial Thromboplast Time 41.9Sec Sodium Level 140mmol/L Potassium Level 4.4mmol/L Chloride Level 95mmol/L Carbon Dioxide Level 32mmol/L Anion Gap 17 Blood Urea Nitrogen 48mg/dl Creatinine 6.54mg/dl Glucose Level 102mg/dl Calcium Level 10.0mg/dl Troponin I 0.049ng/ml B-Type Natriuretic Peptide 37242CF/ML Lactic Acid Level 1.2mmol/L Current Medications Medications (Trade) Dose Ordered Sig/Leonardo Route PRN Reason Start Time Stop Time Status Last Admin Dose Admin Aspirin (Aspirin) 325 mg ONCE STAT PO 03/19/17 07:54 03/19/17 07:55 DC 03/19/17 08:05 Sodium Chloride (NS) 2,290 ml BOLUS OVER 2 HOURS STAT IV* 03/19/17 08:35 03/19/17 08:37 DC 03/19/17 09:10 Ondansetron HCl (Zofran Inj) 4 mg ER BRIDGE PRN IV NAUSEA AND/OR VOMITING 03/19/17 11:00 03/20/17 10:59 Acetaminophen (Tylenol Tab) 650 mg ER BRIDGE PRN PO MILD PAIN/FEVER 03/19/17 11:00 03/20/17 10:59 Procedures/MDM Congestive heart failure versus fluid overload with respiratory distress. The DYE LAB TECHNICIAN of 10,000, radiographic evidence of CHF as well as physical exam consistent with CHF.. Patient has a history of 14 heart attacks and 15 stents. Patient does have recent cough but no signs of pneumonia or other infection currently. Patient is persistently tachycardic which is quite concerning and patient received approximately 1 L of the 30 cc/kg of IV fluid because on repeat exam his bibasilar rales are gotten more pronounced. Was given aspirin. Patient's respiratory rate was increased and he was placed on BiPAP. Patient is an uric and therefore I cannot use Lasix or Bumex. Respiratory status improved greatly on BiPAP and the patient started to feel better as well. Spoke with Dr. Lujan who will be admitting the patient to telemetry for further evaluation and management. He requested that I call Dr. Arroyo. 2 pages have now been placed and I am waiting for a return call. EKG interpretation: #1: Sinus tachycardia rate of 108, left bundle branch block , ST and T-wave changes associated with left bundle branch block, left axis deviation. EKG interpretation #2: Sinus tachycardia rate of 117, left bundle branch block, left axis deviation, elbow ST and T-wave changes associated with left bundle branch block panel monitor interpretation: Persistent sinus tachycardia slightly improved with fluids Chest x-ray interpretation: Engorgement of pulmonary vasculature consistent with CHF with mild pulmonary edema, no pneumothorax, no infiltrates, no fractures Critical care time 37 minutes: This includes treatment of increasing respiratory distress with increasing work of breathing and patient with CHF, use of noninvasive positive pressure ventilation, multiple visits the patient's bedside to reassess cardio dynamic status, chart reviewed, discussion with patient and admitting doctor. This does not include any billable procedures. Departure Diagnosis: Primary Impression: Respiratory distress Additional Impressions: Congestive heart failure Chest pain Anemia Fluid overload Condition: Serious SHREYAS CAMPA DO Mar 19, 2017 08:47
[2017-03-19 09:01] LABS: BASOPHILS % 0.6 % (0.0-2.0); EOSINOPHILS # 0.1 10^3/ul (0.0-0.5); EOSINOPHILS % 1.6 % (0.0-7.0); HEMATOCRIT 32.5 % (42.0-52.0); HEMOGLOBIN 9.5 g/dl (14.0-18.0); LYMPHOCYTES % 18.5 % (15.0-51.0); MEAN CORPUSCULAR HEMOGLOBIN 29.6 pg (29.0-33.0); MEAN CORPUSCULAR HGB CONC 29.2 g/dl (32.0-37.0); MEAN CORPUSCULAR VOLUME 101.2 fl (82.0-101.0); MEAN PLATELET VOLUME 9.8 fl (7.4-10.4); MONOCYTE # 0.3 10^3/ul (0.3-0.9); MONOCYTES % 6.6 % (0.0-11.0); NEUTROPHIL # 3.7 10^3/ul (1.6-7.5); NEUTROPHILS % 72.3 % (39.0-77.0); PLATELET COUNT 152 10^3/UL (140-415); RED BLOOD COUNT 3.21 10^6/ul (4.70-6.10); RED CELL DISTRIBUTION WIDTH 17.9 % (11.5-14.5); WHITE BLOOD COUNT 5.1 10^3/ul (4.8-10.8)
[2017-03-19 09:05] LABS: CREATININE 6.54 mg/dl (0.61-1.24); POTASSIUM 4.4 mmol/L (3.5-5.1)
[2017-03-19 09:06] LABS: INR 1.1; PROTIME 14.2 Sec (12.2-14.2); PT RATIO 1.1
[2017-03-19 09:07] LABS: PARTIAL THROMBOPLASTIN TIME 41.9 Sec (25.0-35.0)
[2017-03-19 09:17] LABS: TROPONIN-I 0.049 ng/ml (0.00-0.12)
[2017-03-19] MEDS ORDERED: ONDANSETRON 4 MG INJ IV PRN (11:00)
[2017-03-19] MEDS ORDERED: ACETAMINOPHEN 325 MG TAB PO PRN (11:00)
[2017-03-19] MEDS ORDERED: ZOLPIDEM 5 MG TAB PO PRN (12:30)
[2017-03-19] MEDS ORDERED: NITROGLYCERIN (SL) 0.4 MG TAB SL PRN (12:30)
[2017-03-19] MEDS ORDERED: HYDROCODONE/APAP (7.5/325) TAB PO PRN (12:30)
[2017-03-19] MEDS ORDERED: NITROGLYCERIN AEROSOL (4.9 GM) TL PRN (12:30)
[2017-03-19] MEDS ORDERED: CARISOPRODOL 350 MG TAB PO PRN (12:30)
[2017-03-19] MEDS ORDERED: LORAZEPAM 2 MG INJ IV PRN (12:30)
[2017-03-19] MEDS ORDERED: NACL 0.9% 3 ML SYG IV SCH (12:30)
[2017-03-19] MEDS ORDERED: HYDROCODONE/APAP (5/325) TAB PO PRN (12:30)
--- NOTE | 2017-03-19 12:54 | HP ---
DATE OF ADMISSION: 03/19/2017 REASON FOR ADMISSION: Shortness of breath. HISTORY OF PRESENT ILLNESS: This is one of several [facility] admissions for this 71-year-old gentleman, michael arias known to me, who has known end-stage renal disease, maintained on outpatient dialysis every , Thursday, and Thursday. He also has a known history of ischemic cardiomyopathy with a LVEF of 30% to 35% and suffered a non- ST elevation GA in November of this year, with PCI and stenting. He went to his usual dialysis treatment yesterday. He apparently did not have adequate ultrafiltrat ion and then beginning last night had the gradual onset of shortness of breath. Symptoms progressed; therefore, he came to the ER with those complaints, unassociated with any nause a, vomiting, chest pain or diaphoresis. In the ER he was in sinus tachycardia at 110, blood pressure was 120/70, O2 saturation was 100% on 3 5% BiPAP, and he was admitted for urgent dialysis. He had no fevers, chills, sweats or cough productive of any sputum. Chest x-ray did show findings consistent with congestive heart failure. Of note, laboratory data was stable, with a hemoglobin of 9.5, potassium of 4.4, a sugar of 102, and troponin was 0.049. Lactic acid was normal at 1.2. PAST MEDICAL HISTORY: Please see the full dictated problem list. ALLERGIES: NONE. HABITS: Tobacco, none. Alcohol, none. MEDICATIONS: 1. Allopurinol 100 mg daily. 2. Aspirin 81 mg daily. 3. Plavix 75 mg daily. 4. Ranexa 500 mg b.i.d. 5. Lipitor 40 mg a day. 6. Requip 0.5 mg t.i.d. 7. Nephro-Evelio 1 daily. 8. Renvela 3 tabs t.i.d. with meals. 9. Gabapentin 100 mg at bedtime. REVIEW OF SYSTEMS: As per HPI, otherwise a 14-point systems are negative. PHYSICAL EXAMINATION: GENERAL: Awake and alert gentleman, currently in no acute distress. VITAL SIGNS: He is afebrile, blood pressure 140/80, heart rate 88, in a sinus rhythm, respirations are 12 and unlabored, O2 saturations 96% on 2 liters. SKIN: Warm, well perfused. HEAD: Normocephalic, atraumatic. EYES: Pupils appear round and reactive. Extraocular movements are full. Sclerae are anicteric. PHARYNX: No lesions. NECK: JVP not distended. BACK: No CVAT. LUNGS: Clear, albeit perhaps some decreased breath sounds at the bases. HEART: S1, S2, regular rate and rhythm, with a 1-2/6 systolic murmur, unchanged. ABDOMEN: Soft and nontender. EXTREMITIES: No cyanosis, clubbing or edema. He has a well-functioning left upper extremity AV fis erendira. LABORATORY DATA: White count 5.1, hemoglobin 9.5, hematocrit 32.5, platelet count 152,000. INR is 1.1. Sodium 140, potassium 4.4, chloride 95, bicarbonate 32, BUN 48, creatinine 6.54, glucose 102, lactic acid 1.2, calcium 10.0. Troponin 0.049. Chest x-ray, consistent with congestive heart fail ure. PROBLEM LIST: 1. Recurrent congestive heart failure, albeit with negative troponin. 2. Inadequate ultrafiltration at dialysis, with resultant #1. 3. End-stage renal disease, maintained on dialysis every Thursday, Thursday, and Thursday. 4. Known ischemic cardiomyopathy with a LVEF of 30 to 35%. 5. Status post non-ST elevation GA in November of 2016, status post PCI and stenting of the distal RCA. 6. Hyperlipidemia. On therapy. 7. Hypertension. 8. Gastroesophageal reflux disease. 9. Status post failed renal transplantation x2. 10. Restless leg syndrome. Controlled on Requip. 11. Diabetes mellitus. Currently diet controlled. RECOMMENDATIONS: 1. Admit to the hospital. 2. Urgent dialysis. 3. Cardiology consultation with Dr. Arroyo for consideration of biventricular pacer. Dictated By: POP BOYCE MD, MM/NTS Conf#: [id number] DID#: [id number]
[2017-03-19] MEDS: ROPINIROLE 0.25 MG TAB PO SCH ×2 (13:41→20:24)
[2017-03-19 16:09] LABS: CK-MB 0.67 ng/ml (0.0-2.4); TROPONIN-I 0.183 ng/ml (0.00-0.12)
[2017-03-19] MEDS ORDERED: SEVELAMER CARBONATE 0.8 GM PKT PO SCH (17:55)
[2017-03-19] MEDS: SEVELAMER 800 MG TAB PO SCH (19:15)
[2017-03-19] MEDS: ATORVASTATIN 40 MG TAB PO SCH (20:24)
[2017-03-19] MEDS: RANOLAZINE (SR) 500 MG TAB PO SCH (20:24)
[2017-03-19] MEDS: CLOPIDOGREL 75 MG TAB PO SCH (20:24)
[2017-03-19] MEDS: ACETAMINOPHEN 325 MG TAB PO PRN (20:24)
[2017-03-19] MEDS: ASPIRIN (EC) 81 MG TAB PO SCH (20:24)
[2017-03-19] MEDS: GABAPENTIN 100 MG CAP PO SCH (20:25)
[2017-03-19 20:30] LABS: CREATINE KINASE < 20 IU/L (23-200)
[2017-03-19 20:44] LABS: CK-MB 0.35 ng/ml (0.0-2.4); TROPONIN-I 0.246 ng/ml (0.00-0.12)
[2017-03-19] MEDS ORDERED: PANTOPRAZOLE (EC) 40 MG TAB PO SCH (21:00)
[2017-03-19] MEDS ORDERED: GUAIFENESIN 20 MG/ML 5ML CUP PO PRN (22:30)
[2017-03-19] MEDS: ZOLPIDEM 5 MG TAB PO PRN (23:16)
--- NOTE | 2017-03-19 23:41 | CONS ---
Date/Time of Note Date/Time of Note DATE: 03/19/17 TIME: 23:27 Assessment/Plan Assessment/Plan Chief Complaint/Hosp Course ASSESSMENT: 1. NSTEMI - pt with no acute EKG changes, has chronic LBBB. trop midlly elevated mildly but upending. has chronic unrevascularizable territory (LCx and D1). will need cont bp control and cad rf modification. if sig uptrend, could consider evaluation of stent placed in 11/2016. 2. ICM- LVEF 30-35%, Echo study technically difficult. LV gram previously with lvef with global hypokinesis lvef 35% 3. Acute on Chronic diastolic+systolic heart failure - fluid mgmt with iHDe. 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 5. Hyperlipidemia. 6. CAD- s/p many previous PCI. known POLICE CADET ostial LCx with L/R-L collaterals. diffusely diseased small branch of D1. patent lad/Diag stents. distal RCA disease s/p PCI 11/2016 after FFR + Impression: - con asa 81mg daily - cont plavix 75 mg daily - cont losartan - cont statin - cont dialysis per renal - pt intolerant of bb/nitrate previously - consider BiV ICD placement, d/w EP. will need outpt evaluation, unlikely to make acute improvement in symptoms. Problems: Consultation Date/Type/Reason Admit Date/Time Mar 19, 2017 at 10:34 Date of Consultation: Mar 19, 2017 Type of Consultation: cardiology Reason for Consultation chf Referring Provider: POP BOYCE MD Hx of Present Illness Mr. Clemens is a 71 y.o. man with h/o of ICM s/p multiple [place], CAD s/p numerous PCI last 11/2016 to RCA, chronic severe systolic heart failure, LBBB, HTN, DM2, ESRD on iHD MWF via L AV fistula. Pt is now admitted for increased dyspnea after dialysis yesterday. pt states he did not get usual amount fluid off, felt increase sob, without chest pain/ pressure. felt weak/fatigued. + orhtopnea. no pnd, edema. pt states had extra iHD session today with 3L out, feels much better with less dyspnea, but cont fatigue. denies any unassociated with any nausea, vomiting. did feel sweaty yesterday he states. no palpitations, dizizness, syncope. Constitutional: no complaints Eyes: no complaints ENT: no complaints Respiratory: shortness of breath Cardiovascular: no chest pain Gastrointestinal: constipation Genitourinary: no complaints Musculoskeletal: no complaints Skin: no complaints Neurologic: no complaints Psychological: depression Immunologic: no complaints Past Medical History 1. Cardiac history as mentioned in HPI 2. Chronic kidney disease, on dialysis. via L arm fistula 3. Hypertension. 4. Hyperlipidemia. 5. Peripheral vascular disease. 6. 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 7. Ischemic cardiomyopathy with moderate systolic dysfunction, chronic systolic heart failure 8 LBBB QRS 170ms Past Surgical History PCI kidney transplant L arm fistula placement Family History Significant Family History: other (no early cad) Social History Alcohol Use: none Smoking Status: Never smoker Drug Use: none Exam/Review of Systems Vital Signs Vitals Vital Signs Date Time Temp Pulse Resp B/P Pulse Ox O2 Delivery O2 Flow Rate FiO2 03/19/17 21:31 3.0 03/19/17 20:12 112 03/19/17 20:00 101.0 20 138/65 100 03/19/17 14:45 35 03/19/17 13:30 Nasal Cannula Exam Constitutional: alert, oriented, well developed. using NC Psych: chronically depressed, but improved mood this am. Head: atraumatic, normocephalic Eyes: EOMI, nl conjunctiva, nl lids ENMT: nl nasal mucosa & septum, other (poor dentition) Neck: non-tender, supple, No jvd Respiratory: crackles in bases Cardiovascular: nl pulses, regular rate and rhythm, systolic murmur, No edema, No gallop, No irregular rhythm Gastrointestinal: non-tender, soft Musculoskeletal: nl extremities to inspection Extremities: normal pulses Neurological: PICKER PACKER II-XII intact, nl mental status, nl speech, nl strength Results Result Diagram: 03/19/17 0810 03/19/17 0810 Results 24 hrs Laboratory Tests Test 03/19/17 08:10 03/19/17 08:45 03/19/17 11:00 03/19/17 11:55 White Blood Count 5.1 # Red Blood Count 3.21 L Hemoglobin 9.5 L Hematocrit 32.5 L Mean Corpuscular Volume 101.2 H Mean Corpuscular Hemoglobin 29.6 Mean Corpuscular Hemoglobin Concent 29.2 L Red Cell Distribution Width 17.9 H Platelet Count 152 Mean Platelet Volume 9.8 Neutrophils % 72.3 Lymphocytes % 18.5 Monocytes % 6.6 Eosinophils % 1.6 Basophils % 0.6 Nucleated Red Blood Cells % 0.0 Neutrophils # 3.7 Lymphocytes # 1.0 Monocytes # 0.3 Eosinophils # 0.1 Basophils # 0.0 Nucleated Red Blood Cells # 0.0 Prothrombin Time 14.2 Prothrombin Time Ratio 1.1 INR International Normalized Ratio 1.10 Activated Partial Thromboplast Time 41.9 H Sodium Level 140 Potassium Level 4.4 Chloride Level 95 L Carbon Dioxide Level 32 H Anion Gap 17 H Blood Urea Nitrogen 48 H Creatinine 6.54 H Glucose Level 102 Calcium Level 10.0 Troponin I 0.049 B-Type Natriuretic Peptide 25229 H Lactic Acid Level 1.2 1.1 Bedside Glucose 87 Test 03/19/17 14:40 03/19/17 19:59 Lactic Acid Level 0.9 Creatine Kinase 22 L < 20 L Creatine Kinase Index 3.0 Creatinine Kinase MB (Mass) 0.67 0.35 Troponin I 0.183 *H 0.246 *H Medications Medications Current Medications Ondansetron HCl (Zofran Tab) 4 mg Q6H PRN PO NAUSEA AND/OR VOMITING; Start 03/19 at 12:30 Nitroglycerin (Nitroglycerin (Sl Tab) 0.4 Mg) 1 tab Q5M PRN SL CHEST PAIN; Start 03/19/17 at 12:30 Acetaminophen (Tylenol Tab) 650 mg Q6H PRN PO PAIN LEVEL 1-3 OR FEVER Last administered on 03/19/17 20:24; Admin Dose 650 MG; Start 03/19/17 at 12:30 Zolpidem Tartrate (Ambien) 5 mg QHS PRN PO INSOMNIA Last administered on 23:16; Admin Dose 5 MG; Start 03/19/17 at 12:30 Docusate Sodium (Colace) 100 mg Q12H PRN PO CONSTIPATION; Start 03/19/17 at 12: 30 Bisacodyl (Dulcolax) 5 mg DAILY PRN PO CONSTIPATION; Start 03/19/17 at 12:30 Pantoprazole (Protonix Tab) 40 mg DAILY@06 PO ; Start 03/20/17 at 06:00 Allopurinol (Zyloprim) 100 mg DAILY PO ; Start 03/20/17 at 09:00 Alprazolam (Xanax) 0.25 mg QHS PRN PO ANXIETY; Start 03/19/17 at 12:30 Aspirin (Halfprin) 81 mg QHS PO Last administered on 03/19/17 20:24; Admin Dose 81 MG; Start 03/19/17 at 21:00 Atorvastatin Calcium (Lipitor) 40 mg QHS PO Last administered on 03/19/17 20:24 ; Admin Dose 40 MG; Start 03/19/17 at 21:00 Carisoprodol (Soma) 175 mg DAILY PRN PO MUSCLE SPASMS; Start 03/19/17 at 12:30 Clopidogrel Bisulfate (plaVIX) 75 mg QHS PO Last administered on 03/19/17 20:24 ; Admin Dose 75 MG; Start 03/19/17 at 21:00 Gabapentin (Neurontin) 100 mg QHS PO ; Start 03/19/17 at 21:00 Acetaminophen/ Hydrocodone Bitart ([place] (7.5-325)) 7.5 tab DAILY PRN PO SEVERE PAIN LEVEL 7-10; Start 03/19/17 at 12:30 Losartan Potassium (Cozaar) 25 mg DAILY PO ; Start 03/20/17 at 09:00 Nitroglycerin (Nitroglycerin ([place])) 1 spray Q5M PRN TL CHEST PAIN; Start 03/19 at 12:30; Status Future Hold Ranolazine (Ranexa) 500 mg Q12 PO Last administered on 03/19/17 20:24; Admin Dose 500 MG; Start 03/19/17 at 21:00 Ropinirole HCl (Requip) 0.5 mg TID PO Last administered on 03/19/17 20:24; Admin Dose 0.5 MG; Start 03/19/17 at 13:00 Guaifenesin (Robitussin Liquid Cup) 200 mg Q4H PRN PO COUGH Last administered on 03/19/17 22:13; Admin Dose 200 MG; Start 03/19/17 at 22:30 Procedures Procedures EKG: NSR, LBBB cxr images reviewed: mild pulm edema SUSANA VASQUEZ Mar 19, 2017 23:39
[2017-03-20] VITALS (24 sets, daily range): BP systolic 118–171; BP diastolic 58–78; PULSE 82–122; RESP 16–21
[2017-03-20] MEDS: PANTOPRAZOLE (EC) 40 MG TAB PO SCH (05:25)
[2017-03-20 05:59] LABS: ADD SCAN DIFF NO
[2017-03-20 06:05] LABS: BASOPHILS % 0.4 % (0.0-2.0); EOSINOPHILS # 0.2 10^3/ul (0.0-0.5); EOSINOPHILS % 3.2 % (0.0-7.0); HEMATOCRIT 31.5 % (42.0-52.0); HEMOGLOBIN 9.4 g/dl (14.0-18.0); LYMPHOCYTES # 0.9 10^3/ul (0.8-2.9); LYMPHOCYTES % 18.7 % (15.0-51.0); MEAN CORPUSCULAR HEMOGLOBIN 29.3 pg (29.0-33.0); MEAN CORPUSCULAR HGB CONC 29.8 g/dl (32.0-37.0); MEAN CORPUSCULAR VOLUME 98.1 fl (82.0-101.0); MONOCYTE # 0.4 10^3/ul (0.3-0.9); MONOCYTES % 8.5 % (0.0-11.0); NEUTROPHIL # 3.2 10^3/ul (1.6-7.5); NEUTROPHILS % 68.8 % (39.0-77.0); PLATELET COUNT 137 10^3/UL (140-415); RED BLOOD COUNT 3.21 10^6/ul (4.70-6.10); RED CELL DISTRIBUTION WIDTH 17.9 % (11.5-14.5); WHITE BLOOD COUNT 4.7 10^3/ul (4.8-10.8)
[2017-03-20 07:00] LABS: ALBUMIN 4.3 g/dl (3.3-4.9); ALBUMIN/GLOBULIN RATIO 1.43; BILIRUBIN,INDIRECT 0.1 mg/dl (0-1.1); BILIRUBIN,TOTAL 0.1 mg/dl (0.2-1.3); CREATININE 5.76 mg/dl (0.61-1.24); TOTAL PROTEIN 7.3 g/dl (6.1-8.1)
[2017-03-20] MEDS: ALLOPURINOL 100 MG TAB PO SCH (08:40)
[2017-03-20] MEDS: SEVELAMER 800 MG TAB PO SCH ×3 (08:40→17:55)
[2017-03-20] MEDS: ROPINIROLE 0.25 MG TAB PO SCH ×3 (08:40→20:51)
[2017-03-20] MEDS: RANOLAZINE (SR) 500 MG TAB PO SCH ×2 (08:43→20:51)
[2017-03-20] MEDS: LOSARTAN 25 MG TAB PO SCH (08:43)
--- NOTE | 2017-03-20 10:31 | RADRPT ---
PROCEDURE: XR Chest 1 View. CLINICAL INDICATION: Shortness of breath. TECHNIQUE: AP view of the chest was obtained. COMPARISON: Yesterday. FINDINGS: The heart size is within normal limits. Calcified atherosclerosis is noted in the aorta. Lungs are hyperexpanded. Interstitial prominence in both lungs is unchanged. Scattered atelectasis is identi fied in the bilateral lower lobes. No consolidations are identified. No pneumothorax is seen. Vascu lar stents in the right upper arm are stable. Osseous structures are unchanged. IMPRESSION: Calcified atherosclerosis in the aorta. Hyperexpanded lungs with diffuse mild interstitial prominence in both lungs. Interstitial prominenc e could be chronic. Findings could reflect COPD. Scattered atelectasis in the bilateral lower lobes. Previously seen left pleural effusion is not visualized on the current exam. RPTAT: AA .Henry Barrios MD, Date Time Electronically viewed and signed by .Henry Barrios MD, on 03/20/2017 10:31 .P/
[2017-03-20] MEDS ORDERED: ALBUMIN HUMAN 25% 100 ML IV ONE (12:30)
--- NOTE | 2017-03-20 13:39 | CONS ---
Date/Time of Note Date/Time of Note DATE: 03/20/17 TIME: 13:33 Assessment/Plan Assessment/Plan Problems: (1) Arteriosclerotic heart disease (ASHD) Comment: stable... no CP... mildly elevated trops coming down... do NOT feel needs any intervention... Dr Perez is following (2) ESRD (end stage renal disease) on dialysis Comment: for HD today... had extra Rx yesterday (3) Congestive heart failure Status: Acute Comment: resolving with vigorous UF w HD (4) Anemia Status: Acute Comment: on EPO (5) Cough Comment: CXR without PNA... add abx now for his bronchitis Consultation Date/Type/Reason Admit Date/Time Mar 19, 2017 at 10:34 Initial Consult Date 03/19/17 Type of Consultation: neph Referring Provider: POP BOYCE MD 24 HR Interval Summary Free Text/Dictation weak/tired today... still w cough... some yellow sp Exam/Review of Systems Vital Signs Vitals Vital Signs Date Time Temp Pulse Resp B/P Pulse Ox O2 Delivery O2 Flow Rate FiO2 03/20/17 12:00 96 03/20/17 11:58 99.0 21 155/74 99 03/20/17 05:59 35 03/20/17 01:07 3.0 03/19/17 20:00 Nasal Cannula Intake and Output 03/19/17 03/19/17 03/20/17 15:00 23:00 07:00 Intake Total 300 ml 300 ml 120 ml Output Total 3000 ml Balance -2700 ml 300 ml 120 ml Exam Constitutional: alert, oriented Neck: supple Respiratory: clear to auscultation Cardiovascular: regular rate and rhythm Gastrointestinal: nl liver, spleen, soft Neurological: other (fxn LUE AVF) Results Result Diagram: 03/20/17 0520 03/20/17 0520 Results 24 hrs Laboratory Tests Test 03/19/17 14:40 03/19/17 19:59 03/20/17 05:20 03/20/17 11:30 Lactic Acid Level 0.9 Creatine Kinase 22 L < 20 L Creatine Kinase Index 3.0 Creatinine Kinase MB (Mass) 0.67 0.35 Troponin I 0.183 *H 0.246 *H 0.194 *H White Blood Count 4.7 L Red Blood Count 3.21 L Hemoglobin 9.4 L Hematocrit 31.5 L Mean Corpuscular Volume 98.1 Mean Corpuscular Hemoglobin 29.3 Mean Corpuscular Hemoglobin Concent 29.8 L Red Cell Distribution Width 17.9 H Platelet Count 137 L Mean Platelet Volume 10.0 Neutrophils % 68.8 Lymphocytes % 18.7 Monocytes % 8.5 Eosinophils % 3.2 Basophils % 0.4 Nucleated Red Blood Cells % 0.0 Neutrophils # 3.2 Lymphocytes # 0.9 Monocytes # 0.4 Eosinophils # 0.2 Basophils # 0.0 Nucleated Red Blood Cells # 0.0 Sodium Level 140 Potassium Level 4.0 Chloride Level 93 L Carbon Dioxide Level 28 Anion Gap 23 H Blood Urea Nitrogen 36 #H Creatinine 5.76 H Glucose Level 95 Calcium Level 10.0 Total Bilirubin 0.1 L Direct Bilirubin 0.00 Indirect Bilirubin 0.1 Aspartate Amino Transf (AST/SGOT) 22 Alanine Aminotransferase (ALT/SGPT) 26 Alkaline Phosphatase 112 Total Protein 7.3 Albumin 4.3 Globulin 3.00 Albumin/Globulin Ratio 1.43 Medications Medications Current Medications Ondansetron HCl (Zofran Tab) 4 mg Q6H PRN PO NAUSEA AND/OR VOMITING; Start 03/19 at 12:30 Nitroglycerin (Nitroglycerin (Sl Tab) 0.4 Mg) 1 tab Q5M PRN SL CHEST PAIN; Start 03/19/17 at 12:30 Acetaminophen (Tylenol Tab) 650 mg Q6H PRN PO PAIN LEVEL 1-3 OR FEVER Last administered on 03/19/17 20:24; Admin Dose 650 MG; Start 03/19/17 at 12:30 Zolpidem Tartrate (Ambien) 5 mg QHS PRN PO INSOMNIA Last administered on 23:16; Admin Dose 5 MG; Start 03/19/17 at 12:30 Docusate Sodium (Colace) 100 mg Q12H PRN PO CONSTIPATION; Start 03/19/17 at 12: 30 Bisacodyl (Dulcolax) 5 mg DAILY PRN PO CONSTIPATION; Start 03/19/17 at 12:30 Pantoprazole (Protonix Tab) 40 mg DAILY@06 PO ; Start 03/20/17 at 06:00 Allopurinol (Zyloprim) 100 mg DAILY PO Last administered on 03/20/17 08:40; Admin Dose 100 MG; Start 03/20/17 at 09:00 Alprazolam (Xanax) 0.25 mg QHS PRN PO ANXIETY; Start 03/19/17 at 12:30 Aspirin (Halfprin) 81 mg QHS PO Last administered on 03/19/17 20:24; Admin Dose 81 MG; Start 03/19/17 at 21:00 Atorvastatin Calcium (Lipitor) 40 mg QHS PO Last administered on 03/19/17 20:24 ; Admin Dose 40 MG; Start 03/19/17 at 21:00 Carisoprodol (Soma) 175 mg DAILY PRN PO MUSCLE SPASMS; Start 03/19/17 at 12:30 Clopidogrel Bisulfate (plaVIX) 75 mg QHS PO Last administered on 03/19/17 20:24 ; Admin Dose 75 MG; Start 03/19/17 at 21:00 Gabapentin (Neurontin) 100 mg QHS PO ; Start 03/19/17 at 21:00 Acetaminophen/ Hydrocodone Bitart ([place] (7.5-325)) 7.5 tab DAILY PRN PO SEVERE PAIN LEVEL 7-10; Start 03/19/17 at 12:30 Losartan Potassium (Cozaar) 25 mg DAILY PO ; Start 03/20/17 at 09:00 Nitroglycerin (Nitroglycerin ([place])) 1 spray Q5M PRN TL CHEST PAIN; Start 03/19 at 12:30; Status Future Hold Ranolazine (Ranexa) 500 mg Q12 PO Last administered on 03/19/17 20:24; Admin Dose 500 MG; Start 03/19/17 at 21:00 Ropinirole HCl (Requip) 0.5 mg TID PO Last administered on 03/20/17 12:31; Admin Dose 0.5 MG; Start 03/19/17 at 13:00 Guaifenesin (Robitussin Liquid Cup) 200 mg Q4H PRN PO COUGH Last administered on 03/19/17 22:13; Admin Dose 200 MG; Start 03/19/17 at 22:30 POP BOYCE MD Mar 20, 2017 13:39
[2017-03-20] MEDS: PIPER-TAZO 2.25 GM (PMX) 50 ML IVPB SCH ×2 (14:42→20:53)
--- NOTE | 2017-03-20 16:25 | CONS ---
Date/Time of Note Date/Time of Note DATE: 03/20/17 TIME: 16:22 Assessment/Plan Assessment/Plan Additional Assessment/Plan 71 y.o. man with h/o of ICM s/p multiple [place], CAD s/p numerous PCI last 11/2016 to RCA, chronic severe systolic heart failure, LBBB, HTN, DM2, ESRD on iHD MWF via L AV fistula who presented w/ sob. Symptoms have improved after dialysis with increase ultrafiltration. Also had a small troponin leak, which has peaked. Don't believe it is ACS (possibly demand ischemia). Has chronic LCfx [employer]. Will treat medically. Plan for BiV ICD as an outpt. - continue meds (aspirin, plavix, statin, ranexa, losartan) - f/u w/ Dr. Chaudhari as outpt - ICD as outpt Consultation Date/Type/Reason Admit Date/Time Mar 19, 2017 at 10:34 Initial Consult Date 03/19/17 Type of Consultation: neph Referring Provider: POP BOYCE MD 24 HR Interval Summary Free Text/Dictation Just had dialysis. Denies sob. Denies cp. Feels alittle cold (he states he usu. does after HD). Exam/Review of Systems Vital Signs Vitals Vital Signs Date Time Temp Pulse Resp B/P Pulse Ox O2 Delivery O2 Flow Rate FiO2 03/20/17 16:00 106 03/20/17 15:27 98.8 16 171/78 96 03/20/17 14:08 3.0 03/20/17 08:45 35 03/19/17 20:00 Nasal Cannula Intake and Output 03/19/17 03/19/17 03/20/17 15:00 23:00 07:00 Intake Total 300 ml 300 ml 120 ml Output Total 3000 ml Balance -2700 ml 300 ml 120 ml Exam Constitutional: alert, No distress Respiratory: clear to auscultation Cardiovascular: regular rate and rhythm, No systolic murmur Results Result Diagram: 03/20/17 0520 03/20/17 0520 Results 24 hrs Laboratory Tests Test 03/19/17 19:59 03/20/17 05:20 03/20/17 11:30 Creatine Kinase < 20 L Creatine Kinase Index Creatinine Kinase MB (Mass) 0.35 Troponin I 0.246 *H 0.194 *H White Blood Count 4.7 L Red Blood Count 3.21 L Hemoglobin 9.4 L Hematocrit 31.5 L Mean Corpuscular Volume 98.1 Mean Corpuscular Hemoglobin 29.3 Mean Corpuscular Hemoglobin Concent 29.8 L Red Cell Distribution Width 17.9 H Platelet Count 137 L Mean Platelet Volume 10.0 Neutrophils % 68.8 Lymphocytes % 18.7 Monocytes % 8.5 Eosinophils % 3.2 Basophils % 0.4 Nucleated Red Blood Cells % 0.0 Neutrophils # 3.2 Lymphocytes # 0.9 Monocytes # 0.4 Eosinophils # 0.2 Basophils # 0.0 Nucleated Red Blood Cells # 0.0 Sodium Level 140 Potassium Level 4.0 Chloride Level 93 L Carbon Dioxide Level 28 Anion Gap 23 H Blood Urea Nitrogen 36 #H Creatinine 5.76 H Glucose Level 95 Calcium Level 10.0 Total Bilirubin 0.1 L Direct Bilirubin 0.00 Indirect Bilirubin 0.1 Aspartate Amino Transf (AST/SGOT) 22 Alanine Aminotransferase (ALT/SGPT) 26 Alkaline Phosphatase 112 Total Protein 7.3 Albumin 4.3 Globulin 3.00 Albumin/Globulin Ratio 1.43 Medications Medications Current Medications Ondansetron HCl (Zofran Tab) 4 mg Q6H PRN PO NAUSEA AND/OR VOMITING; Start 03/19 at 12:30 Nitroglycerin (Nitroglycerin (Sl Tab) 0.4 Mg) 1 tab Q5M PRN SL CHEST PAIN; Start 03/19/17 at 12:30 Acetaminophen (Tylenol Tab) 650 mg Q6H PRN PO PAIN LEVEL 1-3 OR FEVER Last administered on 03/19/17 20:24; Admin Dose 650 MG; Start 03/19/17 at 12:30 Zolpidem Tartrate (Ambien) 5 mg QHS PRN PO INSOMNIA Last administered on 23:16; Admin Dose 5 MG; Start 03/19/17 at 12:30 Docusate Sodium (Colace) 100 mg Q12H PRN PO CONSTIPATION; Start 03/19/17 at 12: 30 Bisacodyl (Dulcolax) 5 mg DAILY PRN PO CONSTIPATION; Start 03/19/17 at 12:30 Pantoprazole (Protonix Tab) 40 mg DAILY@06 PO ; Start 03/20/17 at 06:00 Allopurinol (Zyloprim) 100 mg DAILY PO Last administered on 03/20/17 08:40; Admin Dose 100 MG; Start 03/20/17 at 09:00 Alprazolam (Xanax) 0.25 mg QHS PRN PO ANXIETY; Start 03/19/17 at 12:30 Aspirin (Halfprin) 81 mg QHS PO Last administered on 03/19/17 20:24; Admin Dose 81 MG; Start 03/19/17 at 21:00 Atorvastatin Calcium (Lipitor) 40 mg QHS PO Last administered on 03/19/17 20:24 ; Admin Dose 40 MG; Start 03/19/17 at 21:00 Carisoprodol (Soma) 175 mg DAILY PRN PO MUSCLE SPASMS; Start 03/19/17 at 12:30 Clopidogrel Bisulfate (plaVIX) 75 mg QHS PO Last administered on 03/19/17 20:24 ; Admin Dose 75 MG; Start 03/19/17 at 21:00 Gabapentin (Neurontin) 100 mg QHS PO ; Start 03/19/17 at 21:00 Acetaminophen/ Hydrocodone Bitart ([place] (7.5-325)) 7.5 tab DAILY PRN PO SEVERE PAIN LEVEL 7-10; Start 03/19/17 at 12:30 Losartan Potassium (Cozaar) 25 mg DAILY PO ; Start 03/20/17 at 09:00 Nitroglycerin (Nitroglycerin ([place])) 1 spray Q5M PRN TL CHEST PAIN; Start 03/19 at 12:30; Status Future Hold Ranolazine (Ranexa) 500 mg Q12 PO Last administered on 03/19/17 20:24; Admin Dose 500 MG; Start 03/19/17 at 21:00 Ropinirole HCl (Requip) 0.5 mg TID PO Last administered on 03/20/17 12:31; Admin Dose 0.5 MG; Start 03/19/17 at 13:00 Guaifenesin 200 mg 200 mg Q4H PRN PO COUGH Last administered on 03/19/17 22:13 ; Admin Dose 200 MG; Start 03/19/17 at 22:30 Piperacillin Sod/ Tazobactam Sod (Zosyn 2.25gm/ 50ml (Pmx)) 50 ml @ 100 mls/hr Q8 IVPB Last administered on 03/20/17 14:42; Admin Dose 100 MLS/HR; Start at 14:00 Epoetin Lyle (Epogen (Esrd)) 10,000 units MoWeFr@17 SC ; Start 03/20/17 at 17:00 APOLINAR NGUYEN Mar 20, 2017 16:25
[2017-03-20] MEDS: EPOETIN 10000 UNITS/1 ML INJ (ESRD) SC SCH (17:00)
[2017-03-20] MEDS ORDERED: NA PHOSPHATE/BIPHOS 133 ML ENEMA PR ONE (18:30)
[2017-03-20] MEDS: ONDANSETRON 4 MG TAB PO PRN (18:40)
[2017-03-20] MEDS: CLOPIDOGREL 75 MG TAB PO SCH (20:51)
[2017-03-20] MEDS: ASPIRIN (EC) 81 MG TAB PO SCH (20:51)
[2017-03-20] MEDS: ATORVASTATIN 40 MG TAB PO SCH (20:51)
[2017-03-20] MEDS: ZOLPIDEM 5 MG TAB PO PRN (20:56)
[2017-03-20] MEDS: GABAPENTIN 100 MG CAP PO SCH (21:00)
[2017-03-21] VITALS (12 sets, daily range): BP systolic 122–163; BP diastolic 58–74; PULSE 82–110; RESP 2–20
[2017-03-21] MEDS: PIPER-TAZO 2.25 GM (PMX) 50 ML IVPB SCH ×3 (05:07→21:49)
[2017-03-21] MEDS: PANTOPRAZOLE (EC) 40 MG TAB PO SCH (05:10)
[2017-03-21 06:56] LABS: ADD SCAN DIFF NO
[2017-03-21 07:04] LABS: BASOPHILS % 0.7 % (0.0-2.0); EOSINOPHILS # 0.2 10^3/ul (0.0-0.5); EOSINOPHILS % 4.2 % (0.0-7.0); HEMATOCRIT 30.1 % (42.0-52.0); HEMOGLOBIN 8.9 g/dl (14.0-18.0); LYMPHOCYTES # 0.8 10^3/ul (0.8-2.9); MEAN CORPUSCULAR HEMOGLOBIN 29.5 pg (29.0-33.0); MEAN CORPUSCULAR HGB CONC 29.6 g/dl (32.0-37.0); MEAN CORPUSCULAR VOLUME 99.7 fl (82.0-101.0); MEAN PLATELET VOLUME 10.3 fl (7.4-10.4); MONOCYTE # 0.4 10^3/ul (0.3-0.9); MONOCYTES % 8.7 % (0.0-11.0); NEUTROPHIL # 3.1 10^3/ul (1.6-7.5); PLATELET COUNT 144 10^3/UL (140-415); RED BLOOD COUNT 3.02 10^6/ul (4.70-6.10); RED CELL DISTRIBUTION WIDTH 17.8 % (11.5-14.5); WHITE BLOOD COUNT 4.5 10^3/ul (4.8-10.8)
[2017-03-21] MEDS: SEVELAMER 800 MG TAB PO SCH ×3 (07:55→17:31)
[2017-03-21] MEDS: LOSARTAN 25 MG TAB PO SCH (09:00)
[2017-03-21] MEDS: RANOLAZINE (SR) 500 MG TAB PO SCH ×2 (09:09→21:49)
[2017-03-21] MEDS: ALLOPURINOL 100 MG TAB PO SCH (09:09)
[2017-03-21] MEDS: ROPINIROLE 0.25 MG TAB PO SCH ×3 (09:10→23:20)
--- NOTE | 2017-03-21 15:23 | CONS ---
Date/Time of Note Date/Time of Note DATE: 03/21/17 TIME: 15:19 Assessment/Plan Assessment/Plan Additional Assessment/Plan (1) Arteriosclerotic heart disease (ASHD) s/p NSTEMI, stable... no CP... mildly elevated trops coming down... followed by cards on medical managment. per cardiology no intervention at this time but may benifit from EP eval and possible AICD as outpatient (2) ESRD (end stage renal disease) on dialysis on hd m//. plan for extra hd in am given tendency for volume overload (3) Congestive heart failure Status: Acute Comment: resolving with vigorous UF w HD (4) Anemia Status: Acute Comment: on EPO (5) Cough better with abx (6) chronic hypoxia: has o2 at home. has sleep study pendign next week to see if he qualifies for cpap/ bipap (7) severe debilitation: pt eval. states unable to care for him at home and will get SW involved Consultation Date/Type/Reason Admit Date/Time Mar 19, 2017 at 10:34 Initial Consult Date 03/19/17 Type of Consultation: neph Reason for Consultation states he feels much better and sob back to baseline. initially insisted on dc then refused to take him home indicating she cannot care for him due to severe weakness Referring Provider: POP BOYCE MD Exam/Review of Systems Vital Signs Vitals Vital Signs Date Time Temp Pulse Resp B/P Pulse Ox O2 Delivery O2 Flow Rate FiO2 03/21/17 12:24 88 03/21/17 12:00 98.6 16 124/60 100 03/21/17 08:15 Nasal Cannula 3.0 03/20/17 08:45 35 Intake and Output 03/20/17 03/20/17 03/21/17 15:00 23:00 07:00 Intake Total 500 ml 1130 ml 200 ml Output Total 3000 ml Balance -2500 ml 1130 ml 200 ml Exam Constitutional: alert, oriented Psych: no complaints Head: normocephalic Eyes: nl conjunctiva Neck: jvd, non-tender, supple Respiratory: clear to auscultation, diminished breath sounds Cardiovascular: nl pulses, regular rate and rhythm Gastrointestinal: non-tender, soft Results Result Diagram: 03/21/17 0615 03/20/17 0520 Results 24 hrs Laboratory Tests Test 03/21/17 06:15 White Blood Count 4.5 L Red Blood Count 3.02 L Hemoglobin 8.9 L Hematocrit 30.1 L Mean Corpuscular Volume 99.7 Mean Corpuscular Hemoglobin 29.5 Mean Corpuscular Hemoglobin Concent 29.6 L Red Cell Distribution Width 17.8 H Platelet Count 144 Mean Platelet Volume 10.3 Neutrophils % 69.0 Lymphocytes % 17.0 Monocytes % 8.7 Eosinophils % 4.2 Basophils % 0.7 Nucleated Red Blood Cells % 0.0 Neutrophils # 3.1 Lymphocytes # 0.8 Monocytes # 0.4 Eosinophils # 0.2 Basophils # 0.0 Nucleated Red Blood Cells # 0.0 Medications Medications Current Medications Ondansetron HCl (Zofran Tab) 4 mg Q6H PRN PO NAUSEA AND/OR VOMITING Last administered on 03/20/17 18:40; Admin Dose 4 MG; Start 03/19/17 at 12:30 Nitroglycerin (Nitroglycerin (Sl Tab) 0.4 Mg) 1 tab Q5M PRN SL CHEST PAIN; Start 03/19/17 at 12:30 Acetaminophen (Tylenol Tab) 650 mg Q6H PRN PO PAIN LEVEL 1-3 OR FEVER Last administered on 03/19/17 20:24; Admin Dose 650 MG; Start 03/19/17 at 12:30 Zolpidem Tartrate (Ambien) 5 mg QHS PRN PO INSOMNIA Last administered on 20:56; Admin Dose 5 MG; Start 03/19/17 at 12:30 Docusate Sodium (Colace) 100 mg Q12H PRN PO CONSTIPATION; Start 03/19/17 at 12: 30 Bisacodyl (Dulcolax) 5 mg DAILY PRN PO CONSTIPATION; Start 03/19/17 at 12:30 Pantoprazole (Protonix Tab) 40 mg DAILY@06 PO Last administered on 03/21/17 05: 10; Admin Dose 40 MG; Start 03/20/17 at 06:00 Allopurinol (Zyloprim) 100 mg DAILY PO Last administered on 03/21/17 09:09; Admin Dose 100 MG; Start 03/20/17 at 09:00 Alprazolam (Xanax) 0.25 mg QHS PRN PO ANXIETY; Start 03/19/17 at 12:30 Aspirin (Halfprin) 81 mg QHS PO Last administered on 03/20/17 20:51; Admin Dose 81 MG; Start 03/19/17 at 21:00 Atorvastatin Calcium (Lipitor) 40 mg QHS PO Last administered on 03/20/17 20:51 ; Admin Dose 40 MG; Start 03/19/17 at 21:00 Carisoprodol (Soma) 175 mg DAILY PRN PO MUSCLE SPASMS; Start 03/19/17 at 12:30 Clopidogrel Bisulfate (plaVIX) 75 mg QHS PO Last administered on 03/20/17 20:51 ; Admin Dose 75 MG; Start 03/19/17 at 21:00 Gabapentin (Neurontin) 100 mg QHS PO ; Start 03/19/17 at 21:00 Acetaminophen/ Hydrocodone Bitart ([place] (7.5-325)) 7.5 tab DAILY PRN PO SEVERE PAIN LEVEL 7-10; Start 03/19/17 at 12:30 Losartan Potassium (Cozaar) 25 mg DAILY PO ; Start 03/20/17 at 09:00 Nitroglycerin (Nitroglycerin ([place])) 1 spray Q5M PRN TL CHEST PAIN; Start 03/19 at 12:30; Status Future Hold Ranolazine (Ranexa) 500 mg Q12 PO Last administered on 03/21/17 09:09; Admin Dose 500 MG; Start 03/19/17 at 21:00 Ropinirole HCl (Requip) 0.5 mg TID PO Last administered on 03/21/17 12:36; Admin Dose 0.5 MG; Start 03/19/17 at 13:00 Guaifenesin 200 mg 200 mg Q4H PRN PO COUGH Last administered on 03/19/17 22:13 ; Admin Dose 200 MG; Start 03/19/17 at 22:30 Piperacillin Sod/ Tazobactam Sod (Zosyn 2.25gm/ 50ml (Pmx)) 50 ml @ 100 mls/hr Q8 IVPB Last administered on 03/21/17 14:15; Admin Dose 100 MLS/HR; Start at 14:00 Epoetin L[place] (Epogen (Esrd)) 10,000 units MoWeFr@17 SC ; Start 03/20/17 at 17:00 MARY LOU OVALLE MD Mar 21, 2017 15:23
[2017-03-21] MEDS: GABAPENTIN 100 MG CAP PO SCH (21:00)
[2017-03-21] MEDS: ZOLPIDEM 5 MG TAB PO PRN (21:46)
[2017-03-21] MEDS: CLOPIDOGREL 75 MG TAB PO SCH (21:49)
[2017-03-21] MEDS: ATORVASTATIN 40 MG TAB PO SCH (21:49)
[2017-03-21] MEDS: ASPIRIN (EC) 81 MG TAB PO SCH (21:49)
[2017-03-21] MEDS: DOCUSATE SODIUM 100 MG CAP PO PRN (21:54)
[2017-03-22] VITALS (30 sets, daily range): BP systolic 90–162; BP diastolic 40–78; PULSE 92–139; RESP 15–23
[2017-03-22] MEDS ORDERED: hydrALAzine 20 MG INJ IV PRN (01:30)
[2017-03-22] MEDS: PANTOPRAZOLE (EC) 40 MG TAB PO SCH (05:18)
[2017-03-22] MEDS: PIPER-TAZO 2.25 GM (PMX) 50 ML IVPB SCH ×3 (05:18→21:00)
[2017-03-22 07:06] LABS: ADD SCAN DIFF NO
[2017-03-22 07:18] LABS: BASOPHILS % 0.5 % (0.0-2.0); EOSINOPHILS # 0.1 10^3/ul (0.0-0.5); EOSINOPHILS % 1.5 % (0.0-7.0); LYMPHOCYTES # 1.4 10^3/ul (0.8-2.9); LYMPHOCYTES % 21.6 % (15.0-51.0); MEAN CORPUSCULAR VOLUME 96.8 fl (82.0-101.0); MONOCYTE # 0.4 10^3/ul (0.3-0.9); MONOCYTES % 6.2 % (0.0-11.0); NEUTROPHIL # 4.5 10^3/ul (1.6-7.5); PLATELET COUNT 149 10^3/UL (140-415); RED CELL DISTRIBUTION WIDTH 17.5 % (11.5-14.5); WHITE BLOOD COUNT 6.5 10^3/ul (4.8-10.8)
[2017-03-22 07:28] LABS: ALBUMIN 4.6 g/dl (3.3-4.9); ALBUMIN/GLOBULIN RATIO 1.7; CALCIUM 9.6 mg/dl (8.4-10.2); CREATININE 7.78 mg/dl (0.61-1.24); POTASSIUM 4.2 mmol/L (3.5-5.1); TOTAL PROTEIN 7.3 g/dl (6.1-8.1)
[2017-03-22] MEDS: SEVELAMER 800 MG TAB PO SCH ×3 (07:55→12:52)
[2017-03-22] MEDS: LOSARTAN 25 MG TAB PO SCH (08:18)
--- NOTE | 2017-03-22 08:53 | RADRPT ---
Vent Rate: 131 bpm RR Interval: 0 msec [place] Interval: 168 msec QRS Duration: 164 msec QT Interval: 334 msec QTC Interval: 493 msec P-R-T [place]: -9 - -20 - 112 degrees Sinus tachycardia with premature ventricular complexes or fusion complexes Left bundle branch block Abnormal ECG Electronically Signed By: Aravind Gregg [id number]
[2017-03-22] MEDS: ALBUMIN HUMAN 25% 100 ML IV SCH ×2 (11:35→12:00)
[2017-03-22] MEDS: ROPINIROLE 0.25 MG TAB PO SCH ×3 (12:52→20:55)
[2017-03-22] MEDS: RANOLAZINE (SR) 500 MG TAB PO SCH ×2 (13:04→20:55)
[2017-03-22] MEDS: ALLOPURINOL 100 MG TAB PO SCH (13:04)
--- NOTE | 2017-03-22 13:49 | CONS ---
Date/Time of Note Date/Time of Note DATE: 03/22/17 TIME: 13:45 Assessment/Plan Assessment/Plan Additional Assessment/Plan Chest x-ray was reviewed from second of this month which is essentially unremarkable. Assessment recommendations; next 1. Patient admitted for what appears to be CHF exacerbation. 2. End-stage renal disease, on hemodialysis. 3. History of hypertension or diabetes. 4. Hypoxemia. Continue current treatment. Obtain a follow-up chest x-ray. The patient's wants him to be DNR status. Gnosis appears very guarded on account of multiple comorbidities. Consultation Date/Type/Reason Admit Date/Time Mar 19, 2017 at 10:34 Date of Consultation: Mar 22, 2017 Type of Consultation: Pulmonary Reason for Consultation Pulmonary consultation obtained for evaluation of shortness of breath. History presenting; patient is a 71-year-old white male who was admitted on the second of this month sent over from dialysis center because of inability to finish hemodialysis because of shortness of breath. The patient was diagnosed with CHF exacerbation transferred to hospital and then subsequent admitted. By the time I saw the patient the patient is on BiPAP and is complaining of shortness of breath. The patient is a very poor historian and history was obtained from medical records as well as from patient's who is currently present in the room. According to patient's the patient has been having significant medical history for the last several years with significant recent worsening. She is to the point where she cannot take care of him anymore. Past medical history; next 1. History of CHF with cardiomyopathy. 2. Hypertension or diabetes. 3. History of end-stage renal disease on hemodialysis. Medications; were reviewed. Allergies; none. Social history; no same any drug abuse smoking or alcohol abuse. Family history; patient is has a very supportive . 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 Review of systems; unable to be obtained. General exam; elderly male, on BiPAP. Occasionally wakes up but does not respond to commands. Psychological: no complaints Social History Alcohol Use: none Smoking Status: Never smoker Drug Use: none Exam/Review of Systems Vital Signs Vitals Vital Signs Date Time Temp Pulse Resp B/P Pulse Ox O2 Delivery O2 Flow Rate FiO2 03/22/17 12:39 111 20 136/59 03/22/17 11:10 96 35 03/22/17 07:19 99.4 03/22/17 02:05 Nasal Cannula 3.0 Intake and Output 03/21/17 03/21/17 03/22/17 15:00 23:00 07:00 Intake Total 450 ml 500 ml Balance 450 ml 500 ml Exam HEENT exam; supple neck, no JVD no lymphadenopathy midline trachea no thyromegaly. Patient has a multiple carious teeth. Pupils are small bilaterally. No neck masses. No thyromegaly. No lymphadenopathy. Chest examined; diminished breath sounds throughout. S1-S2 audible, no murmurs. Regular rhythm. Abdomen exam is; soft, there are multiple small well-healed scars present. Bowel sounds audible. No organomegaly. Extremity exam; there is an AV shunt in left arm. With a positive bruit. There is no peripheral edema. 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 Results Result Diagram: 03/22/17 0610 03/22/17 0610 Results 24 hrs Laboratory Tests Test 03/22/17 06:10 White Blood Count 6.5 # Red Blood Count 3.10 L Hemoglobin 9.0 L Hematocrit 30.0 L Mean Corpuscular Volume 96.8 Mean Corpuscular Hemoglobin 29.0 Mean Corpuscular Hemoglobin Concent 30.0 L Red Cell Distribution Width 17.5 H Platelet Count 149 Mean Platelet Volume 11.0 H Neutrophils % 70.0 Lymphocytes % 21.6 Monocytes % 6.2 Eosinophils % 1.5 Basophils % 0.5 Nucleated Red Blood Cells % 0.0 Neutrophils # 4.5 Lymphocytes # 1.4 Monocytes # 0.4 Eosinophils # 0.1 Basophils # 0.0 Nucleated Red Blood Cells # 0.0 Sodium Level 136 Potassium Level 4.2 Chloride Level 95 L Carbon Dioxide Level 24 Anion Gap 21 H Blood Urea Nitrogen 45 H Creatinine 7.78 H Glucose Level 107 Calcium Level 9.6 Total Bilirubin 0.0 L Direct Bilirubin 0.00 Indirect Bilirubin 0.0 Aspartate Amino Transf (AST/SGOT) 23 Alanine Aminotransferase (ALT/SGPT) 31 Alkaline Phosphatase 103 Total Protein 7.3 Albumin 4.6 Globulin 2.70 Albumin/Globulin Ratio 1.70 Medications Medications Current Medications Ondansetron HCl (Zofran Tab) 4 mg Q6H PRN PO NAUSEA AND/OR VOMITING Last administered on 03/20/17t 18:40; Admin Dose 4 MG; Start 03/19/17 at 12:30 Nitroglycerin (Nitroglycerin (Sl Tab) 0.4 Mg) 1 tab Q5M PRN SL CHEST PAIN; Start 03/19/17 at 12:30 Acetaminophen (Tylenol Tab) 650 mg Q6H PRN PO PAIN LEVEL 1-3 OR FEVER Last administered on 03/19/17 20:24; Admin Dose 650 MG; Start 03/19/17 at 12:30 Zolpidem Tartrate (Ambien) 5 mg QHS PRN PO INSOMNIA Last administered on 21:46; Admin Dose 5 MG; Start 03/19/17 at 12:30 Docusate Sodium (Colace) 100 mg Q12H PRN PO CONSTIPATION Last administered on 21:54; Admin Dose 100 MG; Start 03/19/17 at 12:30 Bisacodyl (Dulcolax) 5 mg DAILY PRN PO CONSTIPATION; Start 03/19/17 at 12:30 Pantoprazole (Protonix Tab) 40 mg DAILY@06 PO Last administered on 03/22/17 05: 18; Admin Dose 40 MG; Start 03/20/17 at 06:00 Allopurinol (Zyloprim) 100 mg DAILY PO Last administered on 03/22/17 13:04; Admin Dose 100 MG; Start 03/20/17 at 09:00 Alprazolam (Xanax) 0.25 mg QHS PRN PO ANXIETY; Start 03/19/17 at 12:30 Aspirin (Halfprin) 81 mg QHS PO Last administered on 03/21/17 21:49; Admin Dose 81 MG; Start 03/19/17 at 21:00 Atorvastatin Calcium (Lipitor) 40 mg QHS PO Last administered on 03/21/17 21:49 ; Admin Dose 40 MG; Start 03/19/17 at 21:00 Carisoprodol (Soma) 175 mg DAILY PRN PO MUSCLE SPASMS; Start 03/19/17 at 12:30 Clopidogrel Bisulfate (plaVIX) 75 mg QHS PO Last administered on 03/21/17 21:49 ; Admin Dose 75 MG; Start 03/19/17 at 21:00 Gabapentin (Neurontin) 100 mg QHS PO ; Start 03/19/17 at 21:00 Acetaminophen/ Hydrocodone Bitart ([place] (7.5-325)) 7.5 tab DAILY PRN PO SEVERE PAIN LEVEL 7-10; Start 03/19/17 at 12:30 Losartan Potassium (Cozaar) 25 mg DAILY PO ; Start 03/20/17 at 09:00 Nitroglycerin (Nitroglycerin ([place])) 1 spray Q5M PRN TL CHEST PAIN; Start 03/19 at 12:30; Status Future Hold Ranolazine (Ranexa) 500 mg Q12 PO Last administered on 03/22/17 13:04; Admin Dose 500 MG; Start 03/19/17 at 21:00 Ropinirole HCl (Requip) 0.5 mg TID PO Last administered on 03/22/17 13:00; Admin Dose 0 MG; Start 03/19/17 at 13:00 Guaifenesin 200 mg 200 mg Q4H PRN PO COUGH Last administered on 03/19/17 22:13 ; Admin Dose 200 MG; Start 03/19/17 at 22:30 Piperacillin Sod/ Tazobactam Sod (Zosyn 2.25gm/ 50ml (Pmx)) 50 ml @ 100 mls/hr Q8 IVPB Last administered on 03/22/17 13:04; Admin Dose 100 MLS/HR; Start at 14:00 Epoetin Lyle (Epogen (Esrd)) 10,000 units MoWeFr@17 SC ; Start 03/20/17 at 17:00 Hydralazine HCl (Apresoline) 10 mg Q6H PRN IV ELEVATED BLOOD PRESSURE; Start at 01:30 YUSUF FLAHERTY Mar 22, 2017 13:49
[2017-03-22 14:38] LABS: AADO2 Arterial 117.6 mmHg (7.0-24.0); Allen Test ACCEPTAB; Arterial Base Excess 1.9 mmol/L (-3.0-3); Arterial COHb 0.3 % (0.0-3.0); Arterial Fraction of Oxyhgb 98.4 % (93.0-99.0); Arterial HCO3 25.3 mmol/L (22.0-26.0); Arterial MetHb 0.3 % (0.0-1.5); Blood Gas IEPAP 15/5; MODE MASK-BIPAP
[2017-03-22] MEDS: ACETAMINOPHEN 325 MG TAB PO PRN (16:32)
--- NOTE | 2017-03-22 16:47 | RADRPT ---
PROCEDURE: XR Chest. CLINICAL INDICATION: Congestive heart failure TECHNIQUE: Single frontal chest x-ray. COMPARISON: 03/20/2017 FINDINGS: There is slightly increase hilar vascular and interstitial congestive changes. No alveolar infiltra negar, edema or effusions. . Calcific atherosclerosis of the aorta is present.. The cardiomediastina l silhouette is unremarkable. The osseous structures are intact. IMPRESSION: Increased mild hilar vascular and interstitial congestive changes.. RPTAT: QQ .Eugene Willis MD, Date Time Electronically viewed and signed by .Eugene Willis MD, MD on 03/22/2017 16:47 .L/
--- NOTE | 2017-03-22 18:04 | CONS ---
Date/Time of Note Date/Time of Note DATE: 03/22/17 TIME: 17:59 Assessment/Plan Assessment/Plan Additional Assessment/Plan (1) Arteriosclerotic heart disease (ASHD) s/p NSTEMI, was better yesterday but unstable overnight with increased HR and sob requiring urgent hd this am. await further cardiology recs (2) respiratory failure: worse due to chf and ? copd chnages on cxr. now on bipap and will request pulm eval regarding bipap managment and possible need for intubation. cxr today pending (2) ESRD (end stage renal disease) on dialysis on hd m/w/f. hd today and again in am (3) Congestive heart failure continue hd as above (4) Anemia on epogen overall prognosis very poor. unable to care for him. may require NHP Consultation Date/Type/Reason Admit Date/Time Mar 19, 2017 at 10:34 Initial Consult Date 03/19/17 Type of Consultation: Pulmonary Reason for Consultation events noted. tacycardic and had increasing sob overnight. now on hd and bipapa and slightly better Referring Provider: POP BOYCE MD Exam/Review of Systems Vital Signs Vitals Vital Signs Date Time Temp Pulse Resp B/P Pulse Ox O2 Delivery O2 Flow Rate FiO2 03/22/17 16:52 112 100 40 03/22/17 16:25 102.0 20 124/65 03/22/17 02:05 Nasal Cannula 3.0 Intake and Output 03/21/17 03/21/17 03/22/17 15:00 23:00 07:00 Intake Total 450 ml 500 ml Balance 450 ml 500 ml Exam Constitutional: alert, distress, oriented Psych: no complaints Head: normocephalic Neck: non-tender, supple Respiratory: crackles/rales, diminished breath sounds Cardiovascular: edema, regular rate and rhythm Gastrointestinal: non-tender, soft Results Result Diagram: 03/22/17 0610 03/22/17 0610 Results 24 hrs Laboratory Tests Test 03/22/17 06:10 03/22/17 07:19 White Blood Count 6.5 # Red Blood Count 3.10 L Hemoglobin 9.0 L Hematocrit 30.0 L Mean Corpuscular Volume 96.8 Mean Corpuscular Hemoglobin 29.0 Mean Corpuscular Hemoglobin Concent 30.0 L Red Cell Distribution Width 17.5 H Platelet Count 149 Mean Platelet Volume 11.0 H Neutrophils % 70.0 Lymphocytes % 21.6 Monocytes % 6.2 Eosinophils % 1.5 Basophils % 0.5 Nucleated Red Blood Cells % 0.0 Neutrophils # 4.5 Lymphocytes # 1.4 Monocytes # 0.4 Eosinophils # 0.1 Basophils # 0.0 Nucleated Red Blood Cells # 0.0 Sodium Level 136 Potassium Level 4.2 Chloride Level 95 L Carbon Dioxide Level 24 Anion Gap 21 H Blood Urea Nitrogen 45 H Creatinine 7.78 H Glucose Level 107 Calcium Level 9.6 Total Bilirubin 0.0 L Direct Bilirubin 0.00 Indirect Bilirubin 0.0 Aspartate Amino Transf (AST/SGOT) 23 Alanine Aminotransferase (ALT/SGPT) 31 Alkaline Phosphatase 103 Total Protein 7.3 Albumin 4.6 Globulin 2.70 Albumin/Globulin Ratio 1.70 Blood Gas Specimen Source Blood arterial Arterial Blood Date Drawn 03/22/2017 2:25:22 PM Arterial Blood pH (Temp corrected) 7.480 H Arterial Blood pCO2 (Temp correct) 34.7 L Arterial Blood pO2 (Temp corrected) 199.9 H Arterial Blood HCO3 25.3 Arterial Blood Base Excess 1.9 Arterial Blood Oxygen Saturation 99.0 H Semaj Test ACCEPTAB Arterial Blood Gas Puncture Site Right Radial Arterial Blood Carboxyhemoglobin 0.3 Arterial Blood Methemoglobin 0.3 Blood Gas A-a O2 Differential 117.6 H Oxyhemoglobin Percent 98.4 Total Hemoglobin 10.0 L Blood Gas Temperature 37.0 Blood Gas Respiration Rate 14.0 Blood Gas Actual Respiration Rate 29 Blood Gas Modality MASK-BIPAP FiO2 50.0 Blood Gas IPAP/EPAP Ratio 15/5 Blood Gas Notified Whom [facility] Blood Gas Notified Time 03/22/2017 2:38:50 PM Medications Medications Current Medications Ondansetron HCl (Zofran Tab) 4 mg Q6H PRN PO NAUSEA AND/OR VOMITING Last administered on 03/20/17 18:40; Admin Dose 4 MG; Start 03/19/17 at 12:30 Nitroglycerin (Nitroglycerin (Sl Tab) 0.4 Mg) 1 tab Q5M PRN SL CHEST PAIN; Start 03/19/17 at 12:30 Acetaminophen (Tylenol Tab) 650 mg Q6H PRN PO PAIN LEVEL 1-3 OR FEVER Last administered on 03/22/17 16:32; Admin Dose 650 MG; Start 03/19/17 at 12:30 Zolpidem Tartrate (Ambien) 5 mg QHS PRN PO INSOMNIA Last administered on 21:46; Admin Dose 5 MG; Start 03/19/17 at 12:30 Docusate Sodium (Colace) 100 mg Q12H PRN PO CONSTIPATION Last administered on 21:54; Admin Dose 100 MG; Start 03/19/17 at 12:30 Bisacodyl (Dulcolax) 5 mg DAILY PRN PO CONSTIPATION; Start 03/19/17 at 12:30 Pantoprazole (Protonix Tab) 40 mg DAILY@06 PO Last administered on 03/22/17 05: 18; Admin Dose 40 MG; Start 03/20/17 at 06:00 Allopurinol (Zyloprim) 100 mg DAILY PO Last administered on 03/22/17 13:04; Admin Dose 100 MG; Start 03/20/17 at 09:00 Alprazolam (Xanax) 0.25 mg QHS PRN PO ANXIETY; Start 03/19/17 at 12:30 Aspirin (Halfprin) 81 mg QHS PO Last administered on 03/21/17 21:49; Admin Dose 81 MG; Start 03/19/17 at 21:00 Atorvastatin Calcium (Lipitor) 40 mg QHS PO Last administered on 03/21/17 21:49 ; Admin Dose 40 MG; Start 03/19/17 at 21:00 Carisoprodol (Soma) 175 mg DAILY PRN PO MUSCLE SPASMS; Start 03/19/17 at 12:30 Clopidogrel Bisulfate (plaVIX) 75 mg QHS PO Last administered on 03/21/17 21:49 ; Admin Dose 75 MG; Start 03/19/17 at 21:00 Gabapentin (Neurontin) 100 mg QHS PO ; Start 03/19/17 at 21:00 Acetaminophen/ Hydrocodone Bitart ([place] (7.5-325)) 7.5 tab DAILY PRN PO SEVERE PAIN LEVEL 7-10; Start 03/19/17 at 12:30 Losartan Potassium (Cozaar) 25 mg DAILY PO ; Start 03/20/17 at 09:00 Nitroglycerin (Nitroglycerin ([place])) 1 spray Q5M PRN TL CHEST PAIN; Start 03/19 at 12:30; Status Future Hold Ranolazine (Ranexa) 500 mg Q12 PO Last administered on 03/22/17 13:04; Admin Dose 500 MG; Start 03/19/17 at 21:00 Ropinirole HCl (Requip) 0.5 mg TID PO Last administered on 03/22/17 13:00; Admin Dose 0 MG; Start 03/19/17 at 13:00 Guaifenesin 200 mg 200 mg Q4H PRN PO COUGH Last administered on 03/19/17 22:13 ; Admin Dose 200 MG; Start 03/19/17 at 22:30 Piperacillin Sod/ Tazobactam Sod (Zosyn 2.25gm/ 50ml (Pmx)) 50 ml @ 100 mls/hr Q8 IVPB Last administered on 03/22/17 13:04; Admin Dose 100 MLS/HR; Start at 14:00 Epoetin Lyle (Epogen (Esrd)) 10,000 units MoWeFr@17 SC ; Start 03/20/17 at 17:00 Hydralazine HCl (Apresoline) 10 mg Q6H PRN IV ELEVATED BLOOD PRESSURE; Start at 01:30 MARY LOU OVALLE MD Mar 22, 2017 18:04
--- NOTE | 2017-03-22 18:37 | CONS ---
Date/Time of Note Date/Time of Note DATE: 03/22/17 TIME: 18:36 Assessment/Plan Assessment/Plan Additional Assessment/Plan 71 y.o. man with h/o of ICM s/p multiple CO, CAD s/p numerous PCI last 11/2016 to RCA, chronic severe systolic heart failure, LBBB, HTN, DM2, ESRD on iHD MWF via L AV fistula who presented w/ sob. Symptoms have improved after dialysis with increase ultrafiltration. Also had a small troponin leak, which has peaked. Don't believe it is ACS (possibly demand ischemia). 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 Will treat medically. Plan for BiV ICD as an outpt. - continue meds (aspirin, plavix, statin, ranexa, losartan) - f/u w/ Dr. Chaudhari as outpt - ICD as outpt Update 03/22/17 - had episode of dyspnea (along w/ sinus tach) this am, which resolved with dialysis. Unclear what triggered this, as pt denies dietary indiscretions. Also BP has been under control. Will add low dose coreg, which pt has been on before. Consultation Date/Type/Reason Admit Date/Time Mar 19, 2017 at 10:34 Initial Consult Date 03/19/17 Type of Consultation: Cards Referring Provider: POP BOYCE MD 24 HR Interval Summary Free Text/Dictation Episodes of dyspnea this am which resolved with dialysis. Pt had sinus tach while dyspneic. Currently he feels fine. Denies dietary indiscretions, other than a couple sodas yesterday. Exam/Review of Systems Vital Signs Vitals Vital Signs Date Time Temp Pulse Resp B/P Pulse Ox O2 Delivery O2 Flow Rate FiO2 03/22/17 18:05 101.3 03/22/17 16:52 112 100 40 03/22/17 16:25 20 124/65 03/22/17 02:05 Nasal Cannula 3.0 Intake and Output 03/21/17 03/21/17 03/22/17 15:00 23:00 07:00 Intake Total 450 ml 500 ml Balance 450 ml 500 ml Exam Constitutional: alert, No distress Neck: No jvd Respiratory: other (clear anteriorly) Cardiovascular: regular rate and rhythm, No systolic murmur Extremities: No edema Results Result Diagram: 03/22/17 0610 03/22/17 0610 Results 24 hrs Laboratory Tests Test 03/22/17 06:10 03/22/17 07:19 White Blood Count 6.5 # Red Blood Count 3.10 L Hemoglobin 9.0 L Hematocrit 30.0 L Mean Corpuscular Volume 96.8 Mean Corpuscular Hemoglobin 29.0 Mean Corpuscular Hemoglobin Concent 30.0 L Red Cell Distribution Width 17.5 H Platelet Count 149 Mean Platelet Volume 11.0 H Neutrophils % 70.0 Lymphocytes % 21.6 Monocytes % 6.2 Eosinophils % 1.5 Basophils % 0.5 Nucleated Red Blood Cells % 0.0 Neutrophils # 4.5 Lymphocytes # 1.4 Monocytes # 0.4 Eosinophils # 0.1 Basophils # 0.0 Nucleated Red Blood Cells # 0.0 Sodium Level 136 Potassium Level 4.2 Chloride Level 95 L Carbon Dioxide Level 24 Anion Gap 21 H Blood Urea Nitrogen 45 H Creatinine 7.78 H Glucose Level 107 Calcium Level 9.6 Total Bilirubin 0.0 L Direct Bilirubin 0.00 Indirect Bilirubin 0.0 Aspartate Amino Transf (AST/SGOT) 23 Alanine Aminotransferase (ALT/SGPT) 31 Alkaline Phosphatase 103 Total Protein 7.3 Albumin 4.6 Globulin 2.70 Albumin/Globulin Ratio 1.70 Blood Gas Specimen Source Blood arterial Arterial Blood Date Drawn 03/22/2017 2:25:22 PM Arterial Blood pH (Temp corrected) 7.480 H Arterial Blood pCO2 (Temp correct) 34.7 L Arterial Blood pO2 (Temp corrected) 199.9 H Arterial Blood HCO3 25.3 Arterial Blood Base Excess 1.9 Arterial Blood Oxygen Saturation 99.0 H Semaj Test ACCEPTAB Arterial Blood Gas Puncture Site Right Radial Arterial Blood Carboxyhemoglobin 0.3 Arterial Blood Methemoglobin 0.3 Blood Gas A-a O2 Differential 117.6 H Oxyhemoglobin Percent 98.4 Total Hemoglobin 10.0 L Blood Gas Temperature 37.0 Blood Gas Respiration Rate 14.0 Blood Gas Actual Respiration Rate 29 Blood Gas Modality MASK-BIPAP FiO2 50.0 Blood Gas IPAP/EPAP Ratio 15/5 Blood Gas Notified Whom D Blood Gas Notified Time 03/22/2017 2:38:50 PM Medications Medications Current Medications Ondansetron HCl (Zofran Tab) 4 mg Q6H PRN PO NAUSEA AND/OR VOMITING Last administered on 03/20/17t 18:40; Admin Dose 4 MG; Start 03/19/17 at 12:30 Nitroglycerin (Nitroglycerin (Sl Tab) 0.4 Mg) 1 tab Q5M PRN SL CHEST PAIN; Start 03/19/17 at 12:30 Acetaminophen (Tylenol Tab) 650 mg Q6H PRN PO PAIN LEVEL 1-3 OR FEVER Last administered on 03/22/17 16:32; Admin Dose 650 MG; Start 03/19/17 at 12:30 Zolpidem Tartrate (Ambien) 5 mg QHS PRN PO INSOMNIA Last administered on 21:46; Admin Dose 5 MG; Start 03/19/17 at 12:30 Docusate Sodium (Colace) 100 mg Q12H PRN PO CONSTIPATION Last administered on 21:54; Admin Dose 100 MG; Start 03/19/17 at 12:30 Bisacodyl (Dulcolax) 5 mg DAILY PRN PO CONSTIPATION; Start 03/19/17 at 12:30 Pantoprazole (Protonix Tab) 40 mg DAILY@06 PO Last administered on 03/22/17 05: 18; Admin Dose 40 MG; Start 03/20/17 at 06:00 Allopurinol (Zyloprim) 100 mg DAILY PO Last administered on 03/22/17 13:04; Admin Dose 100 MG; Start 03/20/17 at 09:00 Alprazolam (Xanax) 0.25 mg QHS PRN PO ANXIETY; Start 03/19/17 at 12:30 Aspirin (Halfprin) 81 mg QHS PO Last administered on 03/21/17 21:49; Admin Dose 81 MG; Start 03/19/17 at 21:00 Atorvastatin Calcium (Lipitor) 40 mg QHS PO Last administered on 03/21/17 21:49 ; Admin Dose 40 MG; Start 03/19/17 at 21:00 Carisoprodol (Soma) 175 mg DAILY PRN PO MUSCLE SPASMS; Start 03/19/17 at 12:30 Clopidogrel Bisulfate (plaVIX) 75 mg QHS PO Last administered on 03/21/17 21:49 ; Admin Dose 75 MG; Start 03/19/17 at 21:00 Gabapentin (Neurontin) 100 mg QHS PO ; Start 03/19/17 at 21:00 Acetaminophen/ Hydrocodone Bitart ([place] (7.5-325)) 7.5 tab DAILY PRN PO SEVERE PAIN LEVEL 7-10; Start 03/19/17 at 12:30 Losartan Potassium (Cozaar) 25 mg DAILY PO ; Start 03/20/17 at 09:00 Nitroglycerin (Nitroglycerin ([place])) 1 spray Q5M PRN TL CHEST PAIN; Start 03/19 at 12:30; Status Future Hold Ranolazine (Ranexa) 500 mg Q12 PO Last administered on 03/22/17 13:04; Admin Dose 500 MG; Start 03/19/17 at 21:00 Ropinirole HCl (Requip) 0.5 mg TID PO Last administered on 03/22/17 13:00; Admin Dose 0 MG; Start 03/19/17 at 13:00 Guaifenesin 200 mg 200 mg Q4H PRN PO COUGH Last administered on 03/19/17 22:13 ; Admin Dose 200 MG; Start 03/19/17 at 22:30 Piperacillin Sod/ Tazobactam Sod (Zosyn 2.25gm/ 50ml (Pmx)) 50 ml @ 100 mls/hr Q8 IVPB Last administered on 03/22/17 13:04; Admin Dose 100 MLS/HR; Start at 14:00 Epoetin [place] (Epogen (Esrd)) 10,000 units MoWeFr@17 SC ; Start 03/20/17 at 17:00 Hydralazine HCl (Apresoline) 10 mg Q6H PRN IV ELEVATED BLOOD PRESSURE; Start at 01:30 APOLINAR NGUYEN Mar 22, 2017 18:37
[2017-03-22] MEDS: GABAPENTIN 100 MG CAP PO SCH ×2 (20:55→21:00)
[2017-03-22] MEDS: ASPIRIN (EC) 81 MG TAB PO SCH (20:55)
[2017-03-22] MEDS: CLOPIDOGREL 75 MG TAB PO SCH (20:55)
[2017-03-22] MEDS: ALPRAZOLAM 0.25 MG TAB PO PRN (20:56)
[2017-03-22] MEDS: DOCUSATE SODIUM 100 MG CAP PO PRN (20:56)
[2017-03-22] MEDS: ATORVASTATIN 40 MG TAB PO SCH (20:56)
[2017-03-22] MEDS: BISACODYL (EC) 5 MG TAB PO PRN (20:56)
[2017-03-23] VITALS (26 sets, daily range): BP systolic 100–158; BP diastolic 46–76; PULSE 87–113; RESP 17–20
[2017-03-23] MEDS: ONDANSETRON 4 MG TAB PO PRN (03:05)
[2017-03-23] MEDS: ACETAMINOPHEN 325 MG TAB PO PRN (03:44)
[2017-03-23] MEDS ORDERED: NACL 3% FOR INHALATION 15 ML NEBU NEB ONE (04:30)
[2017-03-23] MEDS ORDERED: VANCOMYCIN IV PER PHARMACY XX SCH (04:30)
[2017-03-23] MEDS ORDERED: VANCOMYCIN 1.5 GM in SOD CHLORIDE 0.9% 250 ML IVPB SCH ×2 (05:00→07:00)
[2017-03-23] MEDS: PANTOPRAZOLE (EC) 40 MG TAB PO SCH (05:39)
[2017-03-23] MEDS: PIPER-TAZO 2.25 GM (PMX) 50 ML IVPB SCH ×3 (05:39→21:03)
[2017-03-23 07:08] LABS: ADD SCAN DIFF NO
[2017-03-23 07:15] LABS: BASOPHILS % 0.5 % (0.0-2.0); HEMATOCRIT 28.7 % (42.0-52.0); HEMOGLOBIN 8.8 g/dl (14.0-18.0); LYMPHOCYTES % 14.6 % (15.0-51.0); MEAN CORPUSCULAR HEMOGLOBIN 29.2 pg (29.0-33.0); MEAN CORPUSCULAR HGB CONC 30.7 g/dl (32.0-37.0); MEAN CORPUSCULAR VOLUME 95.3 fl (82.0-101.0); MEAN PLATELET VOLUME 10.7 fl (7.4-10.4); MONOCYTE # 0.3 10^3/ul (0.3-0.9); NEUTROPHIL # 5.2 10^3/ul (1.6-7.5); NEUTROPHILS % 79.4 % (39.0-77.0); PLATELET COUNT 134 10^3/UL (140-415); RED BLOOD COUNT 3.01 10^6/ul (4.70-6.10); RED CELL DISTRIBUTION WIDTH 17.5 % (11.5-14.5); WHITE BLOOD COUNT 6.6 10^3/ul (4.8-10.8)
[2017-03-23 07:53] LABS: ALBUMIN 4.9 g/dl (3.3-4.9); ALBUMIN/GLOBULIN RATIO 1.75; CALCIUM 10.1 mg/dl (8.4-10.2); CREATININE 8.14 mg/dl (0.61-1.24); POTASSIUM 4.3 mmol/L (3.5-5.1); TOTAL PROTEIN 7.7 g/dl (6.1-8.1)
[2017-03-23] MEDS: SEVELAMER 800 MG TAB PO SCH ×3 (07:55→17:55)
--- NOTE | 2017-03-23 08:07 | CONS ---
Date/Time of Note Date/Time of Note DATE: 03/23/17 TIME: 08:02 Assessment/Plan Assessment/Plan Problems: (1) Arteriosclerotic heart disease (ASHD) Comment: no cp... trop lower, but unclear why got SOB yesterday...? need another angio?... await cards f/u (2) HTN (hypertension) Comment: on losartan and coreg... erika fine (3) SOB (shortness of breath) Comment: unclear why recurrent... getting HD w vigorous UF... CXR w no infiltrates... more HD today (4) ESRD (end stage renal disease) on dialysis Comment: got HD yesterday... to resume today and q MWF (5) Cough Comment: on Vanco/Zosyn... blood cxs (-).. normal WBC... CXR w no infiltrates Consultation Date/Type/Reason Admit Date/Time Mar 19, 2017 at 10:34 Initial Consult Date 03/19/17 Type of Consultation: neph Referring Provider: POP BOYCE MD 24 HR Interval Summary Free Text/Dictation pt more comfortable on BiPaP, where he is this am... some cough w sp... on abx Exam/Review of Systems Vital Signs Vitals Vital Signs Date Time Temp Pulse Resp B/P Pulse Ox O2 Delivery O2 Flow Rate FiO2 03/23/17 05:41 98.5 03/23/17 05:00 112 99 35 03/23/17 03:45 19 117/46 03/22/17 02:05 Nasal Cannula 3.0 Intake and Output 03/22/17 03/22/17 03/23/17 15:00 23:00 07:00 Intake Total 800 ml 200 ml 400 ml Output Total 2200 ml Balance -1400 ml 200 ml 400 ml Exam Constitutional: alert, oriented Neck: supple Respiratory: clear to auscultation Cardiovascular: regular rate and rhythm Gastrointestinal: nl liver, spleen, soft Extremities: normal pulses (fxn AVF) Results Result Diagram: 03/23/17 0625 03/23/17 0625 Results 24 hrs Laboratory Tests Test 03/23/17 06:25 White Blood Count 6.6 Red Blood Count 3.01 L Hemoglobin 8.8 L Hematocrit 28.7 L Mean Corpuscular Volume 95.3 Mean Corpuscular Hemoglobin 29.2 Mean Corpuscular Hemoglobin Concent 30.7 L Red Cell Distribution Width 17.5 H Platelet Count 134 L Mean Platelet Volume 10.7 H Neutrophils % 79.4 H Lymphocytes % 14.6 L Monocytes % 5.0 Eosinophils % 0.0 Basophils % 0.5 Nucleated Red Blood Cells % 0.0 Neutrophils # 5.2 Lymphocytes # 1.0 Monocytes # 0.3 Eosinophils # 0.0 Basophils # 0.0 Nucleated Red Blood Cells # 0.0 Sodium Level 141 Potassium Level 4.3 Chloride Level 94 L Carbon Dioxide Level 24 Anion Gap 27 H Blood Urea Nitrogen 47 H Creatinine 8.14 H Glucose Level 102 Calcium Level 10.1 Total Bilirubin 0.0 L Direct Bilirubin 0.00 Indirect Bilirubin 0.0 Aspartate Amino Transf (AST/SGOT) 53 #H Alanine Aminotransferase (ALT/SGPT) 35 Alkaline Phosphatase 83 Total Protein 7.7 Albumin 4.9 Globulin 2.80 Albumin/Globulin Ratio 1.75 Medications Medications Current Medications Ondansetron HCl (Zofran Tab) 4 mg Q6H PRN PO NAUSEA AND/OR VOMITING Last administered on 03/23/17 03:05; Admin Dose 4 MG; Start 03/19/17 at 12:30 Nitroglycerin (Nitroglycerin (Sl Tab) 0.4 Mg) 1 tab Q5M PRN SL CHEST PAIN; Start 03/19/17 at 12:30 Acetaminophen (Tylenol Tab) 650 mg Q6H PRN PO PAIN LEVEL 1-3 OR FEVER Last administered on 03/23/17 03:44; Admin Dose 650 MG; Start 03/19/17 at 12:30 Zolpidem Tartrate (Ambien) 5 mg QHS PRN PO INSOMNIA Last administered on 21:46; Admin Dose 5 MG; Start 03/19/17 at 12:30 Docusate Sodium (Colace) 100 mg Q12H PRN PO CONSTIPATION Last administered on 20:56; Admin Dose 100 MG; Start 03/19/17 at 12:30 Bisacodyl (Dulcolax) 5 mg DAILY PRN PO CONSTIPATION Last administered on 20:56; Admin Dose 5 MG; Start 03/19/17 at 12:30 Pantoprazole (Protonix Tab) 40 mg DAILY@06 PO Last administered on 03/23/17 05: 39; Admin Dose 40 MG; Start 03/20/17 at 06:00 Allopurinol (Zyloprim) 100 mg DAILY PO Last administered on 03/22/17 13:04; Admin Dose 100 MG; Start 03/20/17 at 09:00 Alprazolam (Xanax) 0.25 mg QHS PRN PO ANXIETY Last administered on 03/22/17 20: 56; Admin Dose 0.25 MG; Start 03/19/17 at 12:30 Aspirin (Halfprin) 81 mg QHS PO Last administered on 03/22/17 20:55; Admin Dose 81 MG; Start 03/19/17 at 21:00 Atorvastatin Calcium (Lipitor) 40 mg QHS PO Last administered on 03/22/17 20:56 ; Admin Dose 40 MG; Start 03/19/17 at 21:00 Carisoprodol (Soma) 175 mg DAILY PRN PO MUSCLE SPASMS; Start 03/19/17 at 12:30 Clopidogrel Bisulfate (plaVIX) 75 mg QHS PO Last administered on 03/22/17 20:55 ; Admin Dose 75 MG; Start 03/19/17 at 21:00 Gabapentin (Neurontin) 100 mg QHS PO ; Start 03/19/17 at 21:00 Acetaminophen/ Hydrocodone Bitart ([place] (7.5-325)) 7.5 tab DAILY PRN PO SEVERE PAIN LEVEL 7-10; Start 03/19/17 at 12:30 Losartan Potassium (Cozaar) 25 mg DAILY PO ; Start 03/20/17 at 09:00 Nitroglycerin (Nitroglycerin ([place])) 1 spray Q5M PRN TL CHEST PAIN; Start 03/19 at 12:30; Status Future Hold Ranolazine (Ranexa) 500 mg Q12 PO Last administered on 03/22/17 20:55; Admin Dose 500 MG; Start 03/19/17 at 21:00 Ropinirole HCl (Requip) 0.5 mg TID PO Last administered on 03/22/17 20:55; Admin Dose 0.5 MG; Start 03/19/17 at 13:00 Guaifenesin 200 mg 200 mg Q4H PRN PO COUGH Last administered on 03/19/17 22:13 ; Admin Dose 200 MG; Start 03/19/17 at 22:30 Piperacillin Sod/ Tazobactam Sod (Zosyn 2.25gm/ 50ml (Pmx)) 50 ml @ 100 mls/hr Q8 IVPB Last administered on 03/23/17 05:39; Admin Dose 100 MLS/HR; Start at 14:00 Epoetin Lyle (Epogen (Esrd)) 10,000 units MoWeFr@17 SC ; Start 03/20/17 at 17:00 Hydralazine HCl (Apresoline) 10 mg Q6H PRN IV ELEVATED BLOOD PRESSURE; Start at 01:30 Carvedilol 3.125 mg 3.125 mg BID PO ; Start 03/22/17 at 20:00 Vancomycin HCl/ Sodium Chloride (Vancocin/NS) 250 ml @ 83.333 mls/ hr ONCE IVPB Last administered on 03/23/17 06:14; Admin Dose 83.333 MLS/HR; Start at 07:00; Stop 03/23/17 at 09:59 POP BOYCE MD Mar 23, 2017 08:07
[2017-03-23] MEDS: LOSARTAN 25 MG TAB PO SCH (08:51)
[2017-03-23] MEDS: ROPINIROLE 0.25 MG TAB PO SCH ×3 (09:00→20:10)
[2017-03-23] MEDS: ALLOPURINOL 100 MG TAB PO SCH (09:00)
[2017-03-23] MEDS: ALBUMIN HUMAN 25% 100 ML IV SCH ×2 (09:00→10:49)
[2017-03-23] MEDS: RANOLAZINE (SR) 500 MG TAB PO SCH ×2 (09:00→20:09)
--- NOTE | 2017-03-23 14:07 | CONS ---
Date/Time of Note Date/Time of Note DATE: 03/23/17 TIME: 14:02 Assessment/Plan Assessment/Plan Chief Complaint/Hosp Course ASSESSMENT: 1. NSTEMI - small elevation, relatively flat. pt with no acute EKG changes, has chronic LBBB. trop midlly elevated mildly but upending. has chronic unrevascularizable territory (LCx and D1). will need cont bp control and cad rf modification. would cont medical mgmt as no surgical/perc intervention possible. 2. ICM- LVEF 30-35%, Echo study technically difficult. LV gram previously with lvef with global hypokinesis lvef 35% 3. Acute on Chronic diastolic+systolic heart failure - fluid mgmt with iHD, limited fluid intake 4 Chronic renal failure on dialysis failed to prior transplants per history. 5. Hyperlipidemia. 6. CAD- s/p many previous PCI. 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 diffusely diseased small branch of D1. patent lad/Diag stents. distal RCA disease s/p PCI 11/2016 after FFR + 7. Fevers- unclear source, r/o pna Impression: - infectious workup/mgmt per primary, ? if worsening sob from underlying infection + chronic systolic heart failure - would not recommend invasive evaluation as likely low yield given known unrevasc territory and only low level trop leak - con asa 81mg daily - cont plavix 75 mg daily - cont losartan - cont statin - cont dialysis per renal - pt intolerant of bb/nitrate previously - consider BiV ICD placement as outpt, d/w EP. also with acute fevers, would avoid placement at this time Problems: Consultation Date/Type/Reason Admit Date/Time Mar 19, 2017 at 10:34 Initial Consult Date 03/22/17 Type of Consultation: cardiology Referring Provider: POP BOYCE MD 24 HR Interval Summary Free Text/Dictation pt with recurrent fevers, now on abx. on bipap this am. no cp/sob stable. tele reviewed: sinus tachy, now nsr Constitutional: other (fevers) Detailed Summary Respiratory: shortness of breath Cardiovascular: no complaints Gastrointestinal: no complaints Exam/Review of Systems Vital Signs Vitals Vital Signs Date Time Temp Pulse Resp B/P Pulse Ox O2 Delivery O2 Flow Rate FiO2 03/23/17 12:45 108 97 35 03/23/17 11:30 18 03/23/17 11:17 98.3 118/68 03/22/17 02:05 Nasal Cannula 3.0 Intake and Output 03/22/17 03/22/17 03/23/17 14:59 22:59 06:59 Intake Total 800 ml 200 ml 400 ml Output Total 2200 ml Balance -1400 ml 200 ml 400 ml Exam Constitutional: alert, oriented, well developed. using NC Psych: chronically depressed, but improved mood this am. Head: atraumatic, normocephalic Eyes: EOMI, nl conjunctiva, nl lids ENMT: nl nasal mucosa & septum, other (poor dentition) Neck: non-tender, supple, No jvd Respiratory: crackles in bases Cardiovascular: nl pulses, regular rate and rhythm, systolic murmur, No edema, No gallop, No irregular rhythm Gastrointestinal: non-tender, soft Musculoskeletal: nl extremities to inspection Extremities: normal pulses Neurological: CLINICAL MICROBIOLOGIST II-XII intact, nl mental status, nl speech, nl strength Results Result Diagram: 03/23/1725 03/23/17 0625 Results 24 hrs Laboratory Tests Test 03/23/17 06:25 White Blood Count 6.6 Red Blood Count 3.01 L Hemoglobin 8.8 L Hematocrit 28.7 L Mean Corpuscular Volume 95.3 Mean Corpuscular Hemoglobin 29.2 Mean Corpuscular Hemoglobin Concent 30.7 L Red Cell Distribution Width 17.5 H Platelet Count 134 L Mean Platelet Volume 10.7 H Neutrophils % 79.4 H Lymphocytes % 14.6 L Monocytes % 5.0 Eosinophils % 0.0 Basophils % 0.5 Nucleated Red Blood Cells % 0.0 Neutrophils # 5.2 Lymphocytes # 1.0 Monocytes # 0.3 Eosinophils # 0.0 Basophils # 0.0 Nucleated Red Blood Cells # 0.0 Sodium Level 141 Potassium Level 4.3 Chloride Level 94 L Carbon Dioxide Level 24 Anion Gap 27 H Blood Urea Nitrogen 47 H Creatinine 8.14 H Glucose Level 102 Calcium Level 10.1 Total Bilirubin 0.0 L Direct Bilirubin 0.00 Indirect Bilirubin 0.0 Aspartate Amino Transf (AST/SGOT) 53 #H Alanine Aminotransferase (ALT/SGPT) 35 Alkaline Phosphatase 83 Total Protein 7.7 Albumin 4.9 Globulin 2.80 Albumin/Globulin Ratio 1.75 Medications Medications Current Medications Ondansetron HCl (Zofran Tab) 4 mg Q6H PRN PO NAUSEA AND/OR VOMITING Last administered on 03/23/17 03:05; Admin Dose 4 MG; Start 03/19/17 at 12:30 Nitroglycerin (Nitroglycerin (Sl Tab) 0.4 Mg) 1 tab Q5M PRN SL CHEST PAIN; Start 03/19/17 at 12:30 Acetaminophen (Tylenol Tab) 650 mg Q6H PRN PO PAIN LEVEL 1-3 OR FEVER Last administered on 03/23/17 03:44; Admin Dose 650 MG; Start 03/19/17 at 12:30 Zolpidem Tartrate (Ambien) 5 mg QHS PRN PO INSOMNIA Last administered on 21:46; Admin Dose 5 MG; Start 03/19/17 at 12:30 Docusate Sodium (Colace) 100 mg Q12H PRN PO CONSTIPATION Last administered on 20:56; Admin Dose 100 MG; Start 03/19/17 at 12:30 Bisacodyl (Dulcolax) 5 mg DAILY PRN PO CONSTIPATION Last administered on 20:56; Admin Dose 5 MG; Start 03/19/17 at 12:30 Pantoprazole (Protonix Tab) 40 mg DAILY@06 PO Last administered on 03/23/17 05: 39; Admin Dose 40 MG; Start 03/20/17 at 06:00 Allopurinol (Zyloprim) 100 mg DAILY PO Last administered on 03/22/17 13:04; Admin Dose 100 MG; Start 03/20/17 at 09:00 Alprazolam (Xanax) 0.25 mg QHS PRN PO ANXIETY Last administered on 03/22/17 20: 56; Admin Dose 0.25 MG; Start 03/19/17 at 12:30 Aspirin (Halfprin) 81 mg QHS PO Last administered on 03/22/17 20:55; Admin Dose 81 MG; Start 03/19/17 at 21:00 Atorvastatin Calcium (Lipitor) 40 mg QHS PO Last administered on 03/22/17 20:56 ; Admin Dose 40 MG; Start 03/19/17 at 21:00 Carisoprodol (Soma) 175 mg DAILY PRN PO MUSCLE SPASMS; Start 03/19/17 at 12:30 Clopidogrel Bisulfate (plaVIX) 75 mg QHS PO Last administered on 03/22/17 20:55 ; Admin Dose 75 MG; Start 03/19/17 at 21:00 Gabapentin (Neurontin) 100 mg QHS PO ; Start 03/19/17 at 21:00 Acetaminophen/ Hydrocodone Bitart ([place] (7.5-325)) 7.5 tab DAILY PRN PO SEVERE PAIN LEVEL 7-10; Start 03/19/17 at 12:30 Losartan Potassium (Cozaar) 25 mg DAILY PO ; Start 03/20/17 at 09:00 Nitroglycerin (Nitroglycerin ([place])) 1 spray Q5M PRN TL CHEST PAIN; Start 03/19 at 12:30; Status Future Hold Ranolazine (Ranexa) 500 mg Q12 PO Last administered on 03/22/17 20:55; Admin Dose 500 MG; Start 03/19/17 at 21:00 Ropinirole HCl (Requip) 0.5 mg TID PO Last administered on 03/22/17 20:55; Admin Dose 0.5 MG; Start 03/19/17 at 13:00 Guaifenesin 200 mg 200 mg Q4H PRN PO COUGH Last administered on 03/19/17 22:13 ; Admin Dose 200 MG; Start 03/19/17 at 22:30 Piperacillin Sod/ Tazobactam Sod (Zosyn 2.25gm/ 50ml (Pmx)) 50 ml @ 100 mls/hr Q8 IVPB Last administered on 03/23/17 05:39; Admin Dose 100 MLS/HR; Start at 14:00 Epoetin Lyle (Epogen (Esrd)) 10,000 units MoWeFr@17 SC ; Start 03/20/17 at 17:00 Hydralazine HCl (Apresoline) 10 mg Q6H PRN IV ELEVATED BLOOD PRESSURE; Start at 01:30 Carvedilol (Coreg) 3.125 mg BID PO ; Start 03/22/17 at 20:00 Procedures Procedures cxr report reviewed SUSANA VASQUEZ Mar 23, 2017 14:07
[2017-03-23] MEDS: EPOETIN 10000 UNITS/1 ML INJ (ESRD) SC SCH (16:30)
[2017-03-23] MEDS: DOCUSATE SODIUM 100 MG CAP PO PRN (16:30)
[2017-03-23] MEDS: ALPRAZOLAM 0.25 MG TAB PO PRN (16:30)
[2017-03-23] MEDS: ZOLPIDEM 5 MG TAB PO PRN (20:08)
[2017-03-23] MEDS: ATORVASTATIN 40 MG TAB PO SCH (20:09)
[2017-03-23] MEDS: ASPIRIN (EC) 81 MG TAB PO SCH (20:09)
[2017-03-23] MEDS: CLOPIDOGREL 75 MG TAB PO SCH (20:09)
[2017-03-23] MEDS: BISACODYL (EC) 5 MG TAB PO PRN (20:10)
[2017-03-23] MEDS: GABAPENTIN 100 MG CAP PO SCH (20:12)
[2017-03-23] MEDS ORDERED: ALBUTEROL 0.083% (NEB) 2.5 MG/3 ML AMP ONE (23:07)
[2017-03-23] MEDS: ALBUTEROL 0.083% (NEB) 2.5 MG/3 ML AMP HHN PRN (23:12)
[2017-03-24] VITALS (13 sets, daily range): BP systolic 99–137; BP diastolic 51–74; PULSE 78–90; RESP 18–20
[2017-03-24] MEDS: ALBUTEROL 0.083% (NEB) 2.5 MG/3 ML AMP HHN PRN ×2 (04:55→18:03)
[2017-03-24] MEDS: PIPER-TAZO 2.25 GM (PMX) 50 ML IVPB SCH ×3 (05:32→21:39)
[2017-03-24] MEDS: PANTOPRAZOLE (EC) 40 MG TAB PO SCH ×2 (05:32→22:22)
[2017-03-24 07:40] LABS: ADD SCAN DIFF NO
--- NOTE | 2017-03-24 07:55 | CONS ---
Date/Time of Note Date/Time of Note DATE: 03/24/17 TIME: 07:52 Assessment/Plan Assessment/Plan Problems: (1) ESRD (end stage renal disease) on dialysis Comment: erika the HD w good UF...repeat in am (2) Congestive heart failure Status: Acute Comment: resolving... will get f/u CXR today to assess (3) Cough Comment: w wheezing today... on abx... will add HHN + IV SM... check CXR as well... all cxs are (-)... no T now... WBC been nl Consultation Date/Type/Reason Admit Date/Time Mar 19, 2017 at 10:34 Initial Consult Date 03/19/17 Type of Consultation: cardiology Referring Provider: POP BOYCE MD 24 HR Interval Summary Free Text/Dictation feels OK... a bit more wheezy today tho Exam/Review of Systems Vital Signs Vitals Vital Signs Date Time Temp Pulse Resp B/P Pulse Ox O2 Delivery O2 Flow Rate FiO2 03/24/17 06:58 98.7 89 18 99/51 97 03/24/17 04:57 3.0 32 03/22/17 02:05 Nasal Cannula Intake and Output 03/23/17 03/23/17 03/24/17 15:00 23:00 07:00 Intake Total 850 ml 450 ml 590 ml Output Total 2800 ml Balance -1950 ml 450 ml 590 ml Exam Constitutional: alert, oriented Head: normocephalic Neck: supple Respiratory: wheezing Cardiovascular: regular rate and rhythm Gastrointestinal: soft Extremities: normal pulses (fxn AVF) Results Result Diagram: 03/23/1725 03/23/17 0625 Medications Medications Current Medications Ondansetron HCl (Zofran Tab) 4 mg Q6H PRN PO NAUSEA AND/OR VOMITING Last administered on 03/23/17 03:05; Admin Dose 4 MG; Start 03/19/17 at 12:30 Nitroglycerin (Nitroglycerin (Sl Tab) 0.4 Mg) 1 tab Q5M PRN SL CHEST PAIN; Start 03/19/17 at 12:30 Acetaminophen (Tylenol Tab) 650 mg Q6H PRN PO PAIN LEVEL 1-3 OR FEVER Last administered on 03/23/17 03:44; Admin Dose 650 MG; Start 03/19/17 at 12:30 Zolpidem Tartrate (Ambien) 5 mg QHS PRN PO INSOMNIA Last administered on 20:08; Admin Dose 5 MG; Start 03/19/17 at 12:30 Docusate Sodium (Colace) 100 mg Q12H PRN PO CONSTIPATION Last administered on 16:30; Admin Dose 100 MG; Start 03/19/17 at 12:30 Bisacodyl (Dulcolax) 5 mg DAILY PRN PO CONSTIPATION Last administered on 20:10; Admin Dose 5 MG; Start 03/19/17 at 12:30 Pantoprazole (Protonix Tab) 40 mg DAILY@06 PO Last administered on 03/24/17 05: 32; Admin Dose 40 MG; Start 03/20/17 at 06:00 Allopurinol (Zyloprim) 100 mg DAILY PO Last administered on 03/22/17 13:04; Admin Dose 100 MG; Start 03/20/17 at 09:00 Alprazolam (Xanax) 0.25 mg QHS PRN PO ANXIETY Last administered on 03/23/17 16: 30; Admin Dose 0.25 MG; Start 03/19/17 at 12:30 Aspirin (Halfprin) 81 mg QHS PO Last administered on 03/23/17 20:09; Admin Dose 81 MG; Start 03/19/17 at 21:00 Atorvastatin Calcium (Lipitor) 40 mg QHS PO Last administered on 03/23/17 20:09 ; Admin Dose 40 MG; Start 03/19/17 at 21:00 Carisoprodol (Soma) 175 mg DAILY PRN PO MUSCLE SPASMS; Start 03/19/17 at 12:30 Clopidogrel Bisulfate (plaVIX) 75 mg QHS PO Last administered on 03/23/17 20:09 ; Admin Dose 75 MG; Start 03/19/17 at 21:00 Gabapentin (Neurontin) 100 mg QHS PO ; Start 03/19/17 at 21:00 Acetaminophen/ Hydrocodone Bitart ([place] (7.5-325)) 7.5 tab DAILY PRN PO SEVERE PAIN LEVEL 7-10; Start 03/19/17 at 12:30 Losartan Potassium (Cozaar) 25 mg DAILY PO ; Start 03/20/17 at 09:00 Nitroglycerin (Nitroglycerin ([place])) 1 spray Q5M PRN TL CHEST PAIN; Start 03/19 at 12:30; Status Future Hold Ranolazine (Ranexa) 500 mg Q12 PO Last administered on 03/23/17 20:09; Admin Dose 500 MG; Start 03/19/17 at 21:00 Ropinirole HCl (Requip) 0.5 mg TID PO Last administered on 03/23/17 20:10; Admin Dose 0.5 MG; Start 03/19/17 at 13:00 Guaifenesin 200 mg 200 mg Q4H PRN PO COUGH Last administered on 03/19/17 22:13 ; Admin Dose 200 MG; Start 03/19/17 at 22:30 Piperacillin Sod/ Tazobactam Sod (Zosyn 2.25gm/ 50ml (Pmx)) 50 ml @ 100 mls/hr Q8 IVPB Last administered on 03/24/17 05:32; Admin Dose 100 MLS/HR; Start at 14:00 Epoetin Lyle (Epogen (Esrd)) 10,000 units MoWeFr@17 SC Last administered on 03/23 16:30; Admin Dose 10,000 UNITS; Start 03/20/17 at 17:00 Hydralazine HCl (Apresoline) 10 mg Q6H PRN IV ELEVATED BLOOD PRESSURE; Start at 01:30 Carvedilol (Coreg) 3.125 mg BID PO ; Start 03/22/17 at 20:00 POP BOYCE MD Mar 24, 2017 07:55
[2017-03-24 08:57] LABS: BASOPHILS % 0.5 % (0.0-2.0); EOSINOPHILS # 0.1 10^3/ul (0.0-0.5); EOSINOPHILS % 1.9 % (0.0-7.0); HEMATOCRIT 27.4 % (42.0-52.0); HEMOGLOBIN 8.5 g/dl (14.0-18.0); LYMPHOCYTES # 1.6 10^3/ul (0.8-2.9); LYMPHOCYTES % 27.2 % (15.0-51.0); MEAN CORPUSCULAR HEMOGLOBIN 29.7 pg (29.0-33.0); MEAN CORPUSCULAR VOLUME 95.8 fl (82.0-101.0); MEAN PLATELET VOLUME 11.8 fl (7.4-10.4); MONOCYTE # 0.5 10^3/ul (0.3-0.9); MONOCYTES % 8.4 % (0.0-11.0); NEUTROPHIL # 3.6 10^3/ul (1.6-7.5); NEUTROPHILS % 61.8 % (39.0-77.0); PLATELET COUNT 162 10^3/UL (140-415); RED BLOOD COUNT 2.86 10^6/ul (4.70-6.10); RED CELL DISTRIBUTION WIDTH 17.6 % (11.5-14.5); WHITE BLOOD COUNT 5.9 10^3/ul (4.8-10.8)
[2017-03-24] MEDS: LOSARTAN 25 MG TAB PO SCH (09:00)
[2017-03-24] MEDS: RANOLAZINE (SR) 500 MG TAB PO SCH ×2 (09:00→21:29)
[2017-03-24] MEDS: ROPINIROLE 0.25 MG TAB PO SCH ×3 (09:13→21:28)
[2017-03-24] MEDS: METHYLPREDNISOLONE 40 MG INJ IV SCH ×2 (09:13→21:44)
[2017-03-24] MEDS: ALLOPURINOL 100 MG TAB PO SCH (09:13)
[2017-03-24] MEDS: SEVELAMER 800 MG TAB PO SCH ×3 (09:13→17:43)
[2017-03-24] MEDS: ACETAMINOPHEN 325 MG TAB PO PRN (09:24)
--- NOTE | 2017-03-24 15:12 | RADRPT ---
PROCEDURE: XR Chest 1 View. CLINICAL INDICATION: Shortness of breath. TECHNIQUE: AP view of the chest was obtained. COMPARISON: 12/04/2016 FINDINGS: Heart is large. Calcified atherosclerosis is noted in the aorta. Mild central pulmonary vascular co ngestion and interstitial prominence is seen in both lungs. Atelectasis versus minimal infiltrates are seen in the medial right lower lobe. No pneumothorax as visualized. Osseous structures are int act. IMPRESSION: Cardiomegaly with calcified atherosclerosis in the aorta. Mild central pulmonary vascular congestion and interstitial prominence in both lungs. Atelectasis versus minimal infiltrates in the medial right lower lobe. RPTAT: AA .Henry Barrios MD, MD Date Time Electronically viewed and signed by .Henry Barrios MD, on 03/24/2017 15:12 .P/
--- NOTE | 2017-03-24 16:31 | CONS ---
Date/Time of Note Date/Time of Note DATE: 03/24/17 TIME: 16:29 Assessment/Plan Assessment/Plan Chief Complaint/Hosp Course ASSESSMENT: 1. NSTEMI - small elevation, relatively flat. pt with no acute EKG changes, has chronic LBBB. trop midlly elevated mildly but upending. has chronic unrevascularizable territory (LCx and D1). will need cont bp control and cad rf modification. would cont medical mgmt as no surgical/perc intervention possible. 2. ICM- LVEF 30-35%, Echo study technically difficult. LV gram previously with lvef with global hypokinesis lvef 35% 3. Acute on Chronic diastolic+systolic heart failure - fluid mgmt with iHD, limited fluid intake 4 Chronic renal failure on dialysis failed to prior transplants per history. 5. Hyperlipidemia. 6. CAD- s/p many previous PCI. 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 diffusely diseased small branch of D1. patent lad/Diag stents. distal RCA disease s/p PCI 11/2016 after FFR + 7. Fevers- unclear source, on abx. resolved Impression: - infectious workup/mgmt per primary - would not recommend invasive evaluation as likely low yield given known unrevasc territory and only low level trop leak - con asa 81mg daily - cont plavix 75 mg daily - cont losartan - cont statin - cont dialysis per renal - tolerating low dose coreg - previous did not tolerate nitrate - consider BiV ICD placement as outpt, d/w EP. also with acute fevers, would avoid placement at this time Problems: Consultation Date/Type/Reason Admit Date/Time Mar 19, 2017 at 10:34 Initial Consult Date 03/22/17 Type of Consultation: cardiology Referring Provider: POP BOYCE MD 24 HR Interval Summary Free Text/Dictation no acute events. afebrile overnight. denies cp, stable sob. no palpitations, dizziness. using bipap at night tele reviewed: nsr, lbbb Detailed Summary ENT: no complaints Respiratory: shortness of breath Cardiovascular: no complaints Gastrointestinal: no complaints Genitourinary: no complaints Exam/Review of Systems Vital Signs Vitals Vital Signs Date Time Temp Pulse Resp B/P Pulse Ox O2 Delivery O2 Flow Rate FiO2 03/24/17 16:00 78 03/24/17 15:21 98.4 18 124/59 100 03/24/17 04:57 3.0 32 03/22/17 02:05 Nasal Cannula Intake and Output 03/23/17 03/23/17 03/24/17 15:00 23:00 07:00 Intake Total 850 ml 450 ml 590 ml Output Total 2800 ml Balance -1950 ml 450 ml 590 ml Exam Constitutional: alert, oriented, well developed. using NC Psych: chronically depressed, but improved mood this am. Head: atraumatic, normocephalic Eyes: EOMI, nl conjunctiva, nl lids ENMT: nl nasal mucosa & septum, other (poor dentition) Neck: non-tender, supple, No jvd Respiratory: crackles in bases Cardiovascular: nl pulses, regular rate and rhythm, systolic murmur, No edema, No gallop, No irregular rhythm Gastrointestinal: non-tender, soft Musculoskeletal: nl extremities to inspection Extremities: normal pulses Neurological: OUTSOLE COMPRESSOR II-XII intact, nl mental status, nl speech, nl strength Results Result Diagram: 03/24/17 0600 03/23/17 0625 Results 24 hrs Laboratory Tests Test 03/24/17 06:00 White Blood Count 5.9 Red Blood Count 2.86 L Hemoglobin 8.5 L Hematocrit 27.4 L Mean Corpuscular Volume 95.8 Mean Corpuscular Hemoglobin 29.7 Mean Corpuscular Hemoglobin Concent 31.0 L Red Cell Distribution Width 17.6 H Platelet Count 162 # Mean Platelet Volume 11.8 H Neutrophils % 61.8 Lymphocytes % 27.2 Monocytes % 8.4 Eosinophils % 1.9 Basophils % 0.5 Nucleated Red Blood Cells % 0.0 Neutrophils # 3.6 Lymphocytes # 1.6 Monocytes # 0.5 Eosinophils # 0.1 Basophils # 0.0 Nucleated Red Blood Cells # 0.0 Medications Medications Current Medications Ondansetron HCl (Zofran Tab) 4 mg Q6H PRN PO NAUSEA AND/OR VOMITING Last administered on 03/23/17 03:05; Admin Dose 4 MG; Start 03/19/17 at 12:30 Nitroglycerin (Nitroglycerin (Sl Tab) 0.4 Mg) 1 tab Q5M PRN SL CHEST PAIN; Start 03/19/17 at 12:30 Acetaminophen (Tylenol Tab) 650 mg Q6H PRN PO PAIN LEVEL 1-3 OR FEVER Last administered on 03/24/17 09:24; Admin Dose 650 MG; Start 03/19/17 at 12:30 Zolpidem Tartrate (Ambien) 5 mg QHS PRN PO INSOMNIA Last administered on 20:08; Admin Dose 5 MG; Start 03/19/17 at 12:30 Docusate Sodium (Colace) 100 mg Q12H PRN PO CONSTIPATION Last administered on 16:30; Admin Dose 100 MG; Start 03/19/17 at 12:30 Bisacodyl (Dulcolax) 5 mg DAILY PRN PO CONSTIPATION Last administered on 20:10; Admin Dose 5 MG; Start 03/19/17 at 12:30 Pantoprazole (Protonix Tab) 40 mg DAILY@06 PO Last administered on 03/24/17 05: 32; Admin Dose 40 MG; Start 03/20/17 at 06:00 Allopurinol (Zyloprim) 100 mg DAILY PO Last administered on 03/24/17 09:13; Admin Dose 100 MG; Start 03/20/17 at 09:00 Alprazolam (Xanax) 0.25 mg QHS PRN PO ANXIETY Last administered on 03/23/17 16: 30; Admin Dose 0.25 MG; Start 03/19/17 at 12:30 Aspirin (Halfprin) 81 mg QHS PO Last administered on 03/23/17 20:09; Admin Dose 81 MG; Start 03/19/17 at 21:00 Atorvastatin Calcium (Lipitor) 40 mg QHS PO Last administered on 03/23/17 20:09 ; Admin Dose 40 MG; Start 03/19/17 at 21:00 Carisoprodol (Soma) 175 mg DAILY PRN PO MUSCLE SPASMS; Start 03/19/17 at 12:30 Clopidogrel Bisulfate (plaVIX) 75 mg QHS PO Last administered on 03/23/17 20:09 ; Admin Dose 75 MG; Start 03/19/17 at 21:00 Gabapentin (Neurontin) 100 mg QHS PO ; Start 03/19/17 at 21:00 Acetaminophen/ Hydrocodone Bitart ([place] (7.5-325)) 7.5 tab DAILY PRN PO SEVERE PAIN LEVEL 7-10; Start 03/19/17 at 12:30 Losartan Potassium (Cozaar) 25 mg DAILY PO ; Start 03/20/17 at 09:00 Nitroglycerin (Nitroglycerin ([place])) 1 spray Q5M PRN TL CHEST PAIN; Start 03/19 at 12:30; Status Future Hold Ranolazine (Ranexa) 500 mg Q12 PO Last administered on 03/23/17 20:09; Admin Dose 500 MG; Start 03/19/17 at 21:00 Ropinirole HCl (Requip) 0.5 mg TID PO Last administered on 03/24/17 12:56; Admin Dose 0.5 MG; Start 03/19/17 at 13:00 Guaifenesin 200 mg 200 mg Q4H PRN PO COUGH Last administered on 03/19/17 22:13 ; Admin Dose 200 MG; Start 03/19/17 at 22:30 Piperacillin Sod/ Tazobactam Sod (Zosyn 2.25gm/ 50ml (Pmx)) 50 ml @ 100 mls/hr Q8 IVPB Last administered on 03/24/17 14:30; Admin Dose 100 MLS/HR; Start at 14:00 Epoetin Lyle (Epogen (Esrd)) 10,000 units MoWeFr@17 SC Last administered on 03/23 16:30; Admin Dose 10,000 UNITS; Start 03/20/17 at 17:00 Hydralazine HCl (Apresoline) 10 mg Q6H PRN IV ELEVATED BLOOD PRESSURE; Start at 01:30 Carvedilol (Coreg) 3.125 mg BID PO ; Start 03/22/17 at 20:00 Methylprednisolone Sodium Succinate (Solu-Medrol) 20 mg Q12 IV Last administered on 03/24/17 09:13; Admin Dose 20 MG; Start 03/24/17 at 09:00 Miscellaneous Information (*Rx Drug Level Order Reminder*) 1 ONCE ONCE XX ; Start 03/25/17 at 05:00; Stop 03/25/17 at 05:01 Procedures Procedures cxr report reviewed in emr SUSANA VASQUEZ Mar 24, 2017 16:31
[2017-03-24] MEDS: GABAPENTIN 100 MG CAP PO SCH (21:00)
[2017-03-24] MEDS: ASPIRIN (EC) 81 MG TAB PO SCH (21:28)
[2017-03-24] MEDS: ATORVASTATIN 40 MG TAB PO SCH (21:28)
[2017-03-24] MEDS: ZOLPIDEM 5 MG TAB PO PRN (21:28)
[2017-03-24] MEDS: CLOPIDOGREL 75 MG TAB PO SCH (21:28)
[2017-03-24] MEDS: DOCUSATE SODIUM 100 MG CAP PO PRN (21:44)
[2017-03-25] VITALS (17 sets, daily range): BP systolic 101–137; BP diastolic 54–65; PULSE 78–98; RESP 18–20
[2017-03-25] MEDS: ALBUTEROL 0.083% (NEB) 2.5 MG/3 ML AMP HHN PRN ×3 (01:00→20:06)
[2017-03-25] MEDS ORDERED: ROPINIROLE 0.25 MG TAB PO ONE (01:30)
[2017-03-25 06:16] LABS: ADD SCAN DIFF NO
[2017-03-25 06:21] LABS: HEMATOCRIT 28.7 % (42.0-52.0); HEMOGLOBIN 8.6 g/dl (14.0-18.0); LYMPHOCYTES # 0.7 10^3/ul (0.8-2.9); LYMPHOCYTES % 10.7 % (15.0-51.0); MEAN CORPUSCULAR HEMOGLOBIN 28.4 pg (29.0-33.0); MEAN CORPUSCULAR VOLUME 94.7 fl (82.0-101.0); MEAN PLATELET VOLUME 11.7 fl (7.4-10.4); MONOCYTE # 0.2 10^3/ul (0.3-0.9); MONOCYTES % 2.6 % (0.0-11.0); NEUTROPHIL # 5.3 10^3/ul (1.6-7.5); NEUTROPHILS % 86.2 % (39.0-77.0); PLATELET COUNT 149 10^3/UL (140-415); RED BLOOD COUNT 3.03 10^6/ul (4.70-6.10); RED CELL DISTRIBUTION WIDTH 17.3 % (11.5-14.5); WHITE BLOOD COUNT 6.2 10^3/ul (4.8-10.8)
[2017-03-25] MEDS: PIPER-TAZO 2.25 GM (PMX) 50 ML IVPB SCH ×3 (06:21→22:33)
--- NOTE | 2017-03-25 08:50 | PN ---
Date/Time of Note Date/Time of Note DATE: 03/25/17 TIME: 08:48 Assessment/Plan VTE Prophylaxis VTE Prophylaxis Intervention: other Lines/Catheters IV Catheter Type (from Nrs): Saline Lock Urinary Cath still in place: No Assessment/Plan Assessment/Plan 1. Pul status slowly improving, bronchitis vs early pneumonia 2. CHF is improving 3. ASHD, stable 4. CKD, to be HD today 5. Meds rev with pt Subjective 24 Hr Interval Summary Respiratory: cough (is less, dry and senses less wheezing) Cardiovascular: No chest pain Gastrointestinal: no complaints Genitourinary: no complaints Exam/Review of Systems Vital Signs Vitals Vital Signs Date Time Temp Pulse Resp B/P Pulse Ox O2 Delivery O2 Flow Rate FiO2 03/25/17 07:19 98.3 83 20 137/65 100 03/25/17 01:01 Nasal Cannula 4.0 03/24/17 18:06 32 Intake and Output 03/24/17 03/24/17 03/25/17 15:00 23:00 07:00 Intake Total 1240 ml 110 ml Balance 1240 ml 110 ml Exam Neck: No jvd Respiratory: diminished breath sounds (few rhonchi bilat without wheezing) Cardiovascular: regular rate and rhythm, No S3 Gastrointestinal: No soft Extremities: No edema (and no calf tend bilat) Results Result Diagram: 03/25/17 0530 03/23/17 0625 Results 24 hrs Laboratory Tests Test 03/25/17 05:30 White Blood Count 6.2 Red Blood Count 3.03 L Hemoglobin 8.6 L Hematocrit 28.7 L Mean Corpuscular Volume 94.7 Mean Corpuscular Hemoglobin 28.4 L Mean Corpuscular Hemoglobin Concent 30.0 L Red Cell Distribution Width 17.3 H Platelet Count 149 Mean Platelet Volume 11.7 H Neutrophils % 86.2 H Lymphocytes % 10.7 L Monocytes % 2.6 Eosinophils % 0.0 Basophils % 0.0 Nucleated Red Blood Cells % 0.0 Neutrophils # 5.3 Lymphocytes # 0.7 L Monocytes # 0.2 L Eosinophils # 0.0 Basophils # 0.0 Nucleated Red Blood Cells # 0.0 Random Vancomycin Level 8.7 Medications Medications Current Medications Ondansetron HCl (Zofran Tab) 4 mg Q6H PRN PO NAUSEA AND/OR VOMITING Last administered on 03/23/17 03:05; Admin Dose 4 MG; Start 03/19/17 at 12:30 Nitroglycerin (Nitroglycerin (Sl Tab) 0.4 Mg) 1 tab Q5M PRN SL CHEST PAIN; Start 03/19/17 at 12:30 Acetaminophen (Tylenol Tab) 650 mg Q6H PRN PO PAIN LEVEL 1-3 OR FEVER Last administered on 03/24/17 09:24; Admin Dose 650 MG; Start 03/19/17 at 12:30 Zolpidem Tartrate (Ambien) 5 mg QHS PRN PO INSOMNIA Last administered on 21:28; Admin Dose 5 MG; Start 03/19/17 at 12:30 Docusate Sodium (Colace) 100 mg Q12H PRN PO CONSTIPATION Last administered on 21:44; Admin Dose 100 MG; Start 03/19/17 at 12:30 Bisacodyl (Dulcolax) 5 mg DAILY PRN PO CONSTIPATION Last administered on 20:10; Admin Dose 5 MG; Start 03/19/17 at 12:30 Allopurinol (Zyloprim) 100 mg DAILY PO Last administered on 03/24/17 09:13; Admin Dose 100 MG; Start 03/20/17 at 09:00 Alprazolam (Xanax) 0.25 mg QHS PRN PO ANXIETY Last administered on 03/23/17 16: 30; Admin Dose 0.25 MG; Start 03/19/17 at 12:30 Aspirin (Halfprin) 81 mg QHS PO Last administered on 03/24/17 21:28; Admin Dose 81 MG; Start 03/19/17 at 21:00 Atorvastatin Calcium (Lipitor) 40 mg QHS PO Last administered on 03/24/17 21:28 ; Admin Dose 40 MG; Start 03/19/17 at 21:00 Carisoprodol (Soma) 175 mg DAILY PRN PO MUSCLE SPASMS; Start 03/19/17 at 12:30 Clopidogrel Bisulfate (plaVIX) 75 mg QHS PO Last administered on 03/24/17 21:28 ; Admin Dose 75 MG; Start 03/19/17 at 21:00 Gabapentin (Neurontin) 100 mg QHS PO ; Start 03/19/17 at 21:00 Acetaminophen/ Hydrocodone Bitart ([place] (7.5-325)) 7.5 tab DAILY PRN PO SEVERE PAIN LEVEL 7-10; Start 03/19/17 at 12:30 Losartan Potassium (Cozaar) 25 mg DAILY PO ; Start 03/20/17 at 09:00 Nitroglycerin (Nitroglycerin ([place])) 1 spray Q5M PRN TL CHEST PAIN; Start 03/19 at 12:30; Status Future Hold Ropinirole HCl (Requip) 0.5 mg TID PO Last administered on 03/24/17 21:28; Admin Dose 0.5 MG; Start 03/19/17 at 13:00 Guaifenesin 200 mg 200 mg Q4H PRN PO COUGH Last administered on 03/19/17 22:13 ; Admin Dose 200 MG; Start 03/19/17 at 22:30 Piperacillin Sod/ Tazobactam Sod (Zosyn 2.25gm/ 50ml (Pmx)) 50 ml @ 100 mls/hr Q8 IVPB Last administered on 03/25/17 06:21; Admin Dose 100 MLS/HR; Start at 14:00 Epoetin Lyle (Epogen (Esrd)) 10,000 units MoWeFr@17 SC Last administered on 03/23 16:30; Admin Dose 10,000 UNITS; Start 03/20/17 at 17:00 Hydralazine HCl (Apresoline) 10 mg Q6H PRN IV ELEVATED BLOOD PRESSURE; Start at 01:30 Carvedilol (Coreg) 3.125 mg BID PO ; Start 03/22/17 at 20:00 Methylprednisolone Sodium Succinate (Solu-Medrol) 20 mg Q12 IV Last administered on 03/24/17 21:44; Admin Dose 20 MG; Start 03/24/17 at 09:00 Docusate Sodium (Colace) 300 mg HS PO ; Start 03/25/17 at 21:00 Multivit/Ca Carb/ B Cmplx/FA/Prenat (Gi-Evelio) 1 tab DAILY PO ; Start 03/25/17 at 09:00 Pantoprazole (Protonix Tab) 40 mg Q12 PO ; Start 03/25/17 at 09:00; Status UNV Ranolazine (Ranexa) 500 mg Q12 PRN PO PAIN; Start 03/25/17 at 09:00; Status UNV ALONZO SERRA MD Mar 25, 2017 08:50
[2017-03-25] MEDS: METHYLPREDNISOLONE 40 MG INJ IV SCH ×2 (09:00→20:13)
[2017-03-25] MEDS: LOSARTAN 25 MG TAB PO SCH (09:00)
[2017-03-25] MEDS: RANOLAZINE (SR) 500 MG TAB PO SCH ×2 (09:00→20:14)
[2017-03-25] MEDS: PANTOPRAZOLE (EC) 40 MG TAB PO SCH ×3 (09:00→20:32)
[2017-03-25] MEDS ORDERED: RANOLAZINE (SR) 500 MG TAB PO PRN (09:00)
[2017-03-25] MEDS: ALLOPURINOL 100 MG TAB PO SCH (09:06)
[2017-03-25] MEDS: SEVELAMER 800 MG TAB PO SCH ×3 (09:07→17:43)
[2017-03-25] MEDS: ROPINIROLE 0.25 MG TAB PO PRN ×3 (09:07→20:14)
[2017-03-25] MEDS: MULTIVIT/CA CARB/B CMPLX/FA TAB PO SCH (09:07)
[2017-03-25] MEDS ORDERED: VANCOMYCIN 1 GM in NS 250 ML IVPB ONE (11:00)
[2017-03-25] MEDS ORDERED: ALBUMIN HUMAN 25% 100 ML IV ONE (15:00)
[2017-03-25] MEDS: EPOETIN 10000 UNITS/1 ML INJ (ESRD) SC SCH (17:37)
--- NOTE | 2017-03-25 17:39 | CONS ---
Date/Time of Note Date/Time of Note DATE: 03/25/17 TIME: 17:35 Assessment/Plan Assessment/Plan Chief Complaint/Hosp Course ASSESSMENT: 1. NSTEMI - small elevation, relatively flat. pt with no acute EKG changes, has chronic LBBB. trop midlly elevated mildly but upending. has chronic unrevascularizable territory (LCx and D1). will need cont bp control and cad rf modification. would cont medical mgmt as no surgical/perc intervention possible. 2. 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 3. Acute on Chronic diastolic+systolic heart failure - fluid mgmt with iHD, limited fluid intake 4 Chronic renal failure on dialysis failed to prior transplants per history. 5. Hyperlipidemia. 6. CAD- s/p many previous PCI. 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 diffusely diseased small branch of D1. patent lad/Diag stents. distal RCA disease s/p PCI 11/2016 after FFR + 7. Fevers- unclear source, on abx. resolved, bcx negative. ? infiltrate on cxr. Impression: - infectious workup/mgmt per primary. on abx. - con asa 81mg daily - cont plavix 75 mg daily - cont losartan - cont statin - cont dialysis per renal - tolerating low dose coreg - previous did not tolerate nitrate - consider BiV ICD placement as outpt, d/w EP. with fevers, possible infection would avoid placement until without e/o infection off abx given risk of seeding device. This was discussed with patient and via phone at length. Problems: Consultation Date/Type/Reason Admit Date/Time Mar 19, 2017 at 10:34 Initial Consult Date 03/22/17 Type of Consultation: cardiology Referring Provider: POP BOYCE MD 24 HR Interval Summary Free Text/Dictation no acute events. pt on iHD this afternoon. reports feeling weak, also with heart burn which he has had chronically, improved with nexium not currently taking. tele reviewed: NSR, LBBB, PVC no VT Constitutional: other (weak) Detailed Summary Respiratory: no complaints Cardiovascular: no complaints Gastrointestinal: other (heartburn) Genitourinary: no complaints Exam/Review of Systems Vital Signs Vitals Vital Signs Date Time Temp Pulse Resp B/P Pulse Ox O2 Delivery O2 Flow Rate FiO2 03/25/17 16:56 93 03/25/17 15:11 98.3 20 116/59 94 03/25/17 12:57 4.0 03/25/17 12:57 Aerosol Mask 03/24/17 18:06 32 Intake and Output 03/24/17 03/24/17 03/25/17 15:00 23:00 07:00 Intake Total 1240 ml 110 ml Balance 1240 ml 110 ml Exam Constitutional: alert, oriented, well developed. using NC Psych: chronically depressed, but improved mood this am. Head: atraumatic, normocephalic Eyes: EOMI, nl conjunctiva, nl lids ENMT: nl nasal mucosa & septum, other (poor dentition) Neck: non-tender, supple, No jvd Respiratory: crackles in bases Cardiovascular: nl pulses, regular rate and rhythm, systolic murmur, No edema, No gallop, No irregular rhythm Gastrointestinal: non-tender, soft Musculoskeletal: nl extremities to inspection Extremities: normal pulses Neurological: CHIP FRIER II-XII intact, nl mental status, nl speech, nl strength a Results Result Diagram: 03/25/17 0530 03/23/17 0625 Results 24 hrs Laboratory Tests Test 03/25/17 05:30 White Blood Count 6.2 Red Blood Count 3.03 L Hemoglobin 8.6 L Hematocrit 28.7 L Mean Corpuscular Volume 94.7 Mean Corpuscular Hemoglobin 28.4 L Mean Corpuscular Hemoglobin Concent 30.0 L Red Cell Distribution Width 17.3 H Platelet Count 149 Mean Platelet Volume 11.7 H Neutrophils % 86.2 H Lymphocytes % 10.7 L Monocytes % 2.6 Eosinophils % 0.0 Basophils % 0.0 Nucleated Red Blood Cells % 0.0 Neutrophils # 5.3 Lymphocytes # 0.7 L Monocytes # 0.2 L Eosinophils # 0.0 Basophils # 0.0 Nucleated Red Blood Cells # 0.0 Random Vancomycin Level 8.7 Medications Medications Current Medications Ondansetron HCl (Zofran Tab) 4 mg Q6H PRN PO NAUSEA AND/OR VOMITING Last administered on 03/23/17 03:05; Admin Dose 4 MG; Start 03/19/17 at 12:30 Nitroglycerin (Nitroglycerin (Sl Tab) 0.4 Mg) 1 tab Q5M PRN SL CHEST PAIN; Start 03/19/17 at 12:30 Acetaminophen (Tylenol Tab) 650 mg Q6H PRN PO PAIN LEVEL 1-3 OR FEVER Last administered on 03/24/17 09:24; Admin Dose 650 MG; Start 03/19/17 at 12:30 Zolpidem Tartrate (Ambien) 5 mg QHS PRN PO INSOMNIA Last administered on 21:28; Admin Dose 5 MG; Start 03/19/17 at 12:30 Docusate Sodium (Colace) 100 mg Q12H PRN PO CONSTIPATION Last administered on 21:44; Admin Dose 100 MG; Start 03/19/17 at 12:30 Bisacodyl (Dulcolax) 5 mg DAILY PRN PO CONSTIPATION Last administered on 20:10; Admin Dose 5 MG; Start 03/19/17 at 12:30 Allopurinol (Zyloprim) 100 mg DAILY PO Last administered on 03/25/17 09:06; Admin Dose 100 MG; Start 03/20/17 at 09:00 Alprazolam (Xanax) 0.25 mg QHS PRN PO ANXIETY Last administered on 03/23/17 16: 30; Admin Dose 0.25 MG; Start 03/19/17 at 12:30 Aspirin (Halfprin) 81 mg QHS PO Last administered on 03/24/17 21:28; Admin Dose 81 MG; Start 03/19/17 at 21:00 Atorvastatin Calcium (Lipitor) 40 mg QHS PO Last administered on 03/24/17 21:28 ; Admin Dose 40 MG; Start 03/19/17 at 21:00 Carisoprodol (Soma) 175 mg DAILY PRN PO MUSCLE SPASMS; Start 03/19/17 at 12:30 Clopidogrel Bisulfate (plaVIX) 75 mg QHS PO Last administered on 03/24/17 21:28 ; Admin Dose 75 MG; Start 03/19/17 at 21:00 Gabapentin (Neurontin) 100 mg QHS PO ; Start 03/19/17 at 21:00 Acetaminophen/ Hydrocodone Bitart ([place] (7.5-325)) 7.5 tab DAILY PRN PO SEVERE PAIN LEVEL 7-10; Start 03/19/17 at 12:30 Losartan Potassium (Cozaar) 25 mg DAILY PO ; Start 03/20/17 at 09:00 Nitroglycerin (Nitroglycerin ([place])) 1 spray Q5M PRN TL CHEST PAIN; Start 03/19 at 12:30; Status Future Hold Guaifenesin 200 mg 200 mg Q4H PRN PO COUGH Last administered on 03/19/17 22:13 ; Admin Dose 200 MG; Start 03/19/17 at 22:30 Piperacillin Sod/ Tazobactam Sod (Zosyn 2.25gm/ 50ml (Pmx)) 50 ml @ 100 mls/hr Q8 IVPB Last administered on 03/25/17 13:50; Admin Dose 100 MLS/HR; Start at 14:00 Epoetin Lyle (Epogen (Esrd)) 10,000 units MoWeFr@17 SC Last administered on 03/23 16:30; Admin Dose 10,000 UNITS; Start 03/20/17 at 17:00 Hydralazine HCl (Apresoline) 10 mg Q6H PRN IV ELEVATED BLOOD PRESSURE; Start at 01:30 Carvedilol (Coreg) 3.125 mg BID PO ; Start 03/22/17 at 20:00 Methylprednisolone Sodium Succinate (Solu-Medrol) 20 mg Q12 IV Last administered on 03/24/17 21:44; Admin Dose 20 MG; Start 03/24/17 at 09:00 Docusate Sodium (Colace) 300 mg HS PO ; Start 03/25/17 at 21:00 Multivit/Ca Carb/ B Cmplx/FA/Prenat (Gi-Evelio) 1 tab DAILY PO Last administered on 03/25/17 09:07; Admin Dose 1 TAB; Start 03/25/17 at 09:00 Pantoprazole (Protonix Tab) 40 mg Q12 PO ; Start 03/25/17 at 09:00 Ranolazine (Ranexa) 500 mg Q12 PO ; Start 03/25/17 at 09:00 Ropinirole HCl (Requip) 0.5 mg TID PRN PO PAIN LEVEL 1-5 Last administered on 09:07; Admin Dose 0.5 MG; Start 03/25/17 at 09:00 SUSANA VASQUEZ Mar 25, 2017 17:39
[2017-03-25] MEDS: CLOPIDOGREL 75 MG TAB PO SCH (20:14)
[2017-03-25] MEDS: ATORVASTATIN 40 MG TAB PO SCH (20:14)
[2017-03-25] MEDS: DOCUSATE SODIUM 100 MG CAP PO SCH (20:14)
[2017-03-25] MEDS: ASPIRIN (EC) 81 MG TAB PO SCH (20:15)
[2017-03-25] MEDS: GABAPENTIN 100 MG CAP PO SCH (20:21)
[2017-03-25] MEDS: ZOLPIDEM 5 MG TAB PO PRN (22:34)
[2017-03-26] VITALS (11 sets, daily range): BP systolic 118–137; BP diastolic 55–66; PULSE 80–92; RESP 18–19
[2017-03-26] MEDS: ALBUTEROL 0.083% (NEB) 2.5 MG/3 ML AMP HHN PRN ×2 (04:43→21:58)
[2017-03-26] MEDS: ROPINIROLE 0.25 MG TAB PO PRN ×4 (06:09→21:10)
[2017-03-26] MEDS: PIPER-TAZO 2.25 GM (PMX) 50 ML IVPB SCH ×3 (06:11→21:10)
[2017-03-26 07:03] LABS: ADD SCAN DIFF NO
[2017-03-26 07:08] LABS: BASOPHILS % 0.2 % (0.0-2.0); HEMATOCRIT 27.2 % (42.0-52.0); HEMOGLOBIN 8.2 g/dl (14.0-18.0); LYMPHOCYTES # 0.7 10^3/ul (0.8-2.9); MEAN CORPUSCULAR HEMOGLOBIN 28.5 pg (29.0-33.0); MEAN CORPUSCULAR HGB CONC 30.1 g/dl (32.0-37.0); MEAN CORPUSCULAR VOLUME 94.4 fl (82.0-101.0); MEAN PLATELET VOLUME 11.9 fl (7.4-10.4); MONOCYTE # 0.4 10^3/ul (0.3-0.9); MONOCYTES % 5.5 % (0.0-11.0); NEUTROPHIL # 5.3 10^3/ul (1.6-7.5); NEUTROPHILS % 82.7 % (39.0-77.0); PLATELET COUNT 165 10^3/UL (140-415); RED BLOOD COUNT 2.88 10^6/ul (4.70-6.10); RED CELL DISTRIBUTION WIDTH 17.2 % (11.5-14.5); WHITE BLOOD COUNT 6.4 10^3/ul (4.8-10.8)
[2017-03-26 07:44] LABS: ALBUMIN 4.9 g/dl (3.3-4.9); ALBUMIN/GLOBULIN RATIO 1.68; CALCIUM 10.7 mg/dl (8.4-10.2); CREATININE 5.51 mg/dl (0.61-1.24); TOTAL PROTEIN 7.8 g/dl (6.1-8.1)
[2017-03-26] MEDS: SEVELAMER 800 MG TAB PO SCH ×3 (07:55→17:41)
--- NOTE | 2017-03-26 08:22 | CONS ---
Date/Time of Note Date/Time of Note DATE: 03/26/17 TIME: 08:16 Assessment/Plan Assessment/Plan Problems: (1) No suicidal thoughts Comment: reviewed w him in depth... he does NOT have a plan, would not do it, as he loves his too much (2) Arteriosclerotic heart disease (ASHD) Comment: no cp...cards following (3) SOB (shortness of breath) Comment: slowly better, but still needs the HHN, abx, and IV steroids (4) ESRD (end stage renal disease) on dialysis Comment: for HD in AM (5) Fluid overload Status: Acute Comment: better w HD and UF (6) Cough Comment: due to the asthmatic bronchitis (7) GERD (gastroesophageal reflux disease) Comment: will add H2 blockers/tums to his PPI Rx Consultation Date/Type/Reason Admit Date/Time Mar 19, 2017 at 10:34 Initial Consult Date 03/19/17 Type of Consultation: neph Referring Provider: POP BOYCE MD 24 HR Interval Summary Free Text/Dictation slow improvement...still w cough, but less sp, and less SOB... On direct questioning from me, he states he is NOT SUICIDAL, that he was kidding around yesterday, and the Product Builder misunderstood him Exam/Review of Systems Vital Signs Vitals Vital Signs Date Time Temp Pulse Resp B/P Pulse Ox O2 Delivery O2 Flow Rate FiO2 03/26/17 08:15 98.2 98 18 133/62 100 03/26/17 04:44 Nasal Cannula 4.0 03/24/17 18:06 32 Intake and Output 03/25/17 03/25/17 03/26/17 15:00 23:00 07:00 Intake Total 55 ml Output Total 3000 ml Balance -3000 ml 55 ml Exam Constitutional: alert, oriented (appropriate, and not suicidal... no ideation or thoughts) Head: normocephalic Eyes: EOMI, nl conjunctiva Neck: supple Respiratory: other (rare rhochi... no wheezes) Cardiovascular: regular rate and rhythm Gastrointestinal: nl liver, spleen, soft Extremities: normal pulses (no edema... intact AVF) Results Result Diagram: 03/26/17 0615 03/26/17 0615 Results 24 hrs Laboratory Tests Test 03/26/17 06:15 White Blood Count 6.4 Red Blood Count 2.88 L Hemoglobin 8.2 L Hematocrit 27.2 L Mean Corpuscular Volume 94.4 Mean Corpuscular Hemoglobin 28.5 L Mean Corpuscular Hemoglobin Concent 30.1 L Red Cell Distribution Width 17.2 H Platelet Count 165 Mean Platelet Volume 11.9 H Neutrophils % 82.7 H Lymphocytes % 11.0 L Monocytes % 5.5 Eosinophils % 0.0 Basophils % 0.2 Nucleated Red Blood Cells % 0.0 Neutrophils # 5.3 Lymphocytes # 0.7 L Monocytes # 0.4 Eosinophils # 0.0 Basophils # 0.0 Nucleated Red Blood Cells # 0.0 Sodium Level 140 Potassium Level 4.0 Chloride Level 93 L Carbon Dioxide Level 24 Anion Gap 27 H Blood Urea Nitrogen 42 H Creatinine 5.51 H Glucose Level 221 H Calcium Level 10.7 H Total Bilirubin 0.0 L Direct Bilirubin 0.00 Indirect Bilirubin 0.0 Aspartate Amino Transf (AST/SGOT) 25 Alanine Aminotransferase (ALT/SGPT) 34 Alkaline Phosphatase 79 Total Protein 7.8 Albumin 4.9 Globulin 2.90 Albumin/Globulin Ratio 1.68 Medications Medications Current Medications Ondansetron HCl (Zofran Tab) 4 mg Q6H PRN PO NAUSEA AND/OR VOMITING Last administered on 03/23/17 03:05; Admin Dose 4 MG; Start 03/19/17 at 12:30 Nitroglycerin (Nitroglycerin (Sl Tab) 0.4 Mg) 1 tab Q5M PRN SL CHEST PAIN; Start 03/19/17 at 12:30 Acetaminophen (Tylenol Tab) 650 mg Q6H PRN PO PAIN LEVEL 1-3 OR FEVER Last administered on 03/24/17 09:24; Admin Dose 650 MG; Start 03/19/17 at 12:30 Zolpidem Tartrate (Ambien) 5 mg QHS PRN PO INSOMNIA Last administered on 22:34; Admin Dose 5 MG; Start 03/19/17 at 12:30 Docusate Sodium (Colace) 100 mg Q12H PRN PO CONSTIPATION Last administered on 21:44; Admin Dose 100 MG; Start 03/19/17 at 12:30 Bisacodyl (Dulcolax) 5 mg DAILY PRN PO CONSTIPATION Last administered on 20:10; Admin Dose 5 MG; Start 03/19/17 at 12:30 Allopurinol (Zyloprim) 100 mg DAILY PO Last administered on 03/25/17 09:06; Admin Dose 100 MG; Start 03/20/17 at 09:00 Alprazolam (Xanax) 0.25 mg QHS PRN PO ANXIETY Last administered on 03/23/17 16: 30; Admin Dose 0.25 MG; Start 03/19/17 at 12:30 Aspirin (Halfprin) 81 mg QHS PO Last administered on 03/25/17 20:15; Admin Dose 81 MG; Start 03/19/17 at 21:00 Atorvastatin Calcium (Lipitor) 40 mg QHS PO Last administered on 03/25/17 20:14 ; Admin Dose 40 MG; Start 03/19/17 at 21:00 Carisoprodol (Soma) 175 mg DAILY PRN PO MUSCLE SPASMS; Start 03/19/17 at 12:30 Clopidogrel Bisulfate (plaVIX) 75 mg QHS PO Last administered on 03/25/17 20:14 ; Admin Dose 75 MG; Start 03/19/17 at 21:00 Gabapentin (Neurontin) 100 mg QHS PO ; Start 03/19/17 at 21:00 Acetaminophen/ Hydrocodone Bitart ([place] (7.5-325)) 7.5 tab DAILY PRN PO SEVERE PAIN LEVEL 7-10; Start 03/19/17 at 12:30 Losartan Potassium (Cozaar) 25 mg DAILY PO ; Start 03/20/17 at 09:00 Nitroglycerin (Nitroglycerin ([place])) 1 spray Q5M PRN TL CHEST PAIN; Start 03/19 at 12:30; Status Future Hold Guaifenesin 200 mg 200 mg Q4H PRN PO COUGH Last administered on 03/19/17 22:13 ; Admin Dose 200 MG; Start 03/19/17 at 22:30 Piperacillin Sod/ Tazobactam Sod (Zosyn 2.25gm/ 50ml (Pmx)) 50 ml @ 100 mls/hr Q8 IVPB Last administered on 03/26/17 06:11; Admin Dose 100 MLS/HR; Start at 14:00 Epoetin Lyle (Epogen (Esrd)) 10,000 units MoWeFr@17 SC Last administered on 03/25 17:37; Admin Dose 10,000 UNITS; Start 03/20/17 at 17:00 Hydralazine HCl (Apresoline) 10 mg Q6H PRN IV ELEVATED BLOOD PRESSURE; Start at 01:30 Carvedilol (Coreg) 3.125 mg BID PO ; Start 03/22/17 at 20:00 Methylprednisolone Sodium Succinate (Solu-Medrol) 20 mg Q12 IV Last administered on 03/25/17 20:13; Admin Dose 20 MG; Start 03/24/17 at 09:00 Docusate Sodium (Colace) 300 mg HS PO Last administered on 03/25/17 20:14; Admin Dose 300 MG; Start 03/25/17 at 21:00 Multivit/Ca Carb/ B Cmplx/FA/Prenat (Gi-Evelio) 1 tab DAILY PO Last administered on 03/25/17 09:07; Admin Dose 1 TAB; Start 03/25/17 at 09:00 Pantoprazole (Protonix Tab) 40 mg Q12 PO Last administered on 03/25/17 20:32; Admin Dose 40 MG; Start 03/25/17 at 09:00 Ranolazine (Ranexa) 500 mg Q12 PO Last administered on 03/25/17 20:14; Admin Dose 500 MG; Start 03/25/17 at 09:00 Ropinirole HCl (Requip) 0.5 mg TID PRN PO PAIN LEVEL 1-5 Last administered on 06:09; Admin Dose 0.5 MG; Start 03/25/17 at 09:00 POP BOYCE MD Mar 26, 2017 08:22
[2017-03-26] MEDS: PANTOPRAZOLE (EC) 40 MG TAB PO SCH ×2 (08:32→21:10)
[2017-03-26] MEDS: ALLOPURINOL 100 MG TAB PO SCH (08:32)
[2017-03-26] MEDS: METHYLPREDNISOLONE 40 MG INJ IV SCH ×2 (08:33→21:09)
[2017-03-26] MEDS: LOSARTAN 25 MG TAB PO SCH (08:38)
[2017-03-26] MEDS: MULTIVIT/CA CARB/B CMPLX/FA TAB PO SCH ×2 (08:39→12:46)
[2017-03-26] MEDS: RANOLAZINE (SR) 500 MG TAB PO SCH ×2 (08:39→21:09)
[2017-03-26] MEDS: CALCIUM CARBONATE 500 MG CHEW TAB PO PRN ×2 (08:43→21:10)
[2017-03-26] MEDS ORDERED: FAMOTIDINE 20 MG TAB PO SCH (09:00)
--- NOTE | 2017-03-26 09:39 | PN ---
Date/Time of Note Date/Time of Note DATE: 03/26/17 TIME: 09:30 SUBJECTIVE: Patient feeling well denies any coughing dyspnea or chest pain, to undergo dialysis tomorrow. Chart, laboratory studies, and medications reviewed. ROS: Patient denied any fevers, chills, weight loss, nausea, vomiting, diarrhea, constipation, cough, hemoptysis, dysuria, hematuria, nocturia, any neurologic symptoms, headache, any chest pains, dyspnea, PND, orthopnea, leg edema, or palpitations. All other review of systems were normal. OBJECTIVE: Vital signs please see chart. HEENT; no JVD, no HJR, carotids 2 over 4+ without bruits. Chest: Clear to auscultation and percussion, no rales, wheezes or rhonchi. Cardiac: S4, S1, S2 with paradoxical physiologic splitting, 1/6 systolic ejection murmur, no rub click or diastolic murmur noted. Abdominal: Bowel sounds positive, soft nontender, no abdominal bruit noted, no hepatosplenomegaly. Extremities: No cyanosis, clubbing, or edema. Negative Homans sign or palpable cords. Pulses: 2/4 pulses diffusely no bruits noted. LABORATORY STUDIES; Hemoglobin 8.2, hematocrit 27.2, normal white count and platelet count, electrolytes normal, BUN 4.2, creatinine 5.5, calcium 10.7, normal liver tests, troponin from the second minimally elevated at 0.194. Chest x-ray from the sixth cardiomegaly, calcified aortic knob no heart failure no wide mediastinum. Telemetry revealed sinus rhythm with bundle branch block rare PVCs per monitor check. ASSESSMENT: 1. History of acute on chronic systolic and diastolic heart failure last ejection fraction 30-35% on echocardiogram. 2. Ischemic cardiomyopathy multiple coronary interventions of left main left anterior descending artery right coronary artery last intervention distal right coronary artery 12/05 stented, chronically occluded circumflex and diffusely diseased diagonal. 3. Multiple admissions with luminary edema and hypertension. 4. Hypertension. 5. Gout. 6. History of intermittent left bundle branch block. 7. Hyperlipidemia. 8. 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 9. Fever resolved asthmatic bronchitis-improved 10. Minimal troponin elevation flat profile, multiple admissions. 11. Patient is a candidate for possible biventricular AICD device once stable from an infectious disease standpoint and recuperates from current illness. 12. Chronic anemia-normocytic on Epogen. Patient stable from a cardiac standpoint at present not in heart failure, will continue to monitor and continue aspirin and Plavix with recent stent, Ranexa, carvedilol, Protonix, and statin therapy. I will be available as needed for any further cardiac issues. Patient to follow-up with Dr. Arroyo once discharged and will need to be evaluated for possible AICD biventricular pacer. PLAN: 1. Continue current therapy dialysis tomorrow, continue aspirin and Plavix indefinitely, carvedilol, Ranexa, consider addition of low-dose hydralazine if blood pressure can tolerate. 2. Follow-up with Dr. Arroyo as outpatient for evaluation once current infection clears for AICD biventricular pacer device and patient with ischemic cardiomyopathy low ejection fraction and left bundle branch block pattern. Discussed with Dr. Johnson. KAMRYN AYALA MD Mar 26, 2017 09:39
[2017-03-26] MEDS: GABAPENTIN 100 MG CAP PO SCH (21:00)
[2017-03-26] MEDS: ASPIRIN (EC) 81 MG TAB PO SCH (21:09)
[2017-03-26] MEDS: ATORVASTATIN 40 MG TAB PO SCH (21:10)
[2017-03-26] MEDS: CLOPIDOGREL 75 MG TAB PO SCH (21:10)
[2017-03-26] MEDS: DOCUSATE SODIUM 100 MG CAP PO SCH (21:10)
[2017-03-26] MEDS: ZOLPIDEM 5 MG TAB PO PRN (21:10)
[2017-03-27] VITALS (20 sets, daily range): BP systolic 103–145; BP diastolic 50–75; PULSE 82–99; RESP 17–20
[2017-03-27] MEDS: ALBUTEROL 0.083% (NEB) 2.5 MG/3 ML AMP HHN PRN ×4 (04:57→20:37)
[2017-03-27] MEDS: PIPER-TAZO 2.25 GM (PMX) 50 ML IVPB SCH ×3 (05:23→21:13)
--- NOTE | 2017-03-27 07:38 | PN ---
Date/Time of Note Date/Time of Note DATE: 03/27/17 TIME: 07:35 Assessment/Plan VTE Prophylaxis VTE Prophylaxis Intervention: other Lines/Catheters IV Catheter Type (from Nrs): Saline Lock Urinary Cath still in place: No Assessment/Plan Assessment/Plan 1. Asthmatic bronchitis resolving. 2. CHF resolving 3. Anemia is stable 4. ASHD, without angina 5. Address again tomm and will rev with Dr. NUGENT need for suicidal precautions ( he indicated to me this is not problematic) Subjective 24 Hr Interval Summary Respiratory: cough (had improved, occ wheeze) Cardiovascular: No chest pain Gastrointestinal: no complaints Genitourinary: no complaints Exam/Review of Systems Vital Signs Vitals Vital Signs Date Time Temp Pulse Resp B/P Pulse Ox O2 Delivery O2 Flow Rate FiO2 03/27/17 05:01 93 20 96 Nasal Cannula 3.0 03/27/17 04:02 97.7 139/75 03/24/17 18:06 32 Intake and Output 03/26/17 03/26/17 03/27/17 15:00 23:00 07:00 Intake Total 50 ml Balance 50 ml Exam Constitutional: other (sitter is in the room because he indicated he was suicidal) Neck: jvd Respiratory: wheezing (is mild and few rhonchi bilat) Cardiovascular: regular rate and rhythm, No S3 Gastrointestinal: soft Extremities: No edema Results Result Diagram: 03/26/1761403/26/17614 Medications Medications Current Medications Ondansetron HCl (Zofran Tab) 4 mg Q6H PRN PO NAUSEA AND/OR VOMITING Last administered on 03/23/17 03:05; Admin Dose 4 MG; Start 03/19/17 at 12:30 Nitroglycerin (Nitroglycerin (Sl Tab) 0.4 Mg) 1 tab Q5M PRN SL CHEST PAIN; Start 03/19/17 at 12:30 Acetaminophen (Tylenol Tab) 650 mg Q6H PRN PO PAIN LEVEL 1-3 OR FEVER Last administered on 03/24/17 09:24; Admin Dose 650 MG; Start 03/19/17 at 12:30 Zolpidem Tartrate (Ambien) 5 mg QHS PRN PO INSOMNIA Last administered on 21:10; Admin Dose 5 MG; Start 03/19/17 at 12:30 Docusate Sodium (Colace) 100 mg Q12H PRN PO CONSTIPATION Last administered on 21:44; Admin Dose 100 MG; Start 03/19/17 at 12:30 Bisacodyl (Dulcolax) 5 mg DAILY PRN PO CONSTIPATION Last administered on 20:10; Admin Dose 5 MG; Start 03/19/17 at 12:30 Allopurinol (Zyloprim) 100 mg DAILY PO Last administered on 03/26/17 08:32; Admin Dose 100 MG; Start 03/20/17 at 09:00 Alprazolam (Xanax) 0.25 mg QHS PRN PO ANXIETY Last administered on 03/23/17 16: 30; Admin Dose 0.25 MG; Start 03/19/17 at 12:30 Aspirin (Halfprin) 81 mg QHS PO Last administered on 03/26/17 21:09; Admin Dose 81 MG; Start 03/19/17 at 21:00 Atorvastatin Calcium (Lipitor) 40 mg QHS PO Last administered on 03/26/17 21:10 ; Admin Dose 40 MG; Start 03/19/17 at 21:00 Carisoprodol (Soma) 175 mg DAILY PRN PO MUSCLE SPASMS; Start 03/19/17 at 12:30 Clopidogrel Bisulfate (plaVIX) 75 mg QHS PO Last administered on 03/26/17 21:10 ; Admin Dose 75 MG; Start 03/19/17 at 21:00 Gabapentin (Neurontin) 100 mg QHS PO ; Start 03/19/17 at 21:00 Acetaminophen/ Hydrocodone Bitart ([place] (7.5-325)) 7.5 tab DAILY PRN PO SEVERE PAIN LEVEL 7-10; Start 03/19/17 at 12:30 Losartan Potassium (Cozaar) 25 mg DAILY PO ; Start 03/20/17 at 09:00 Nitroglycerin (Nitroglycerin ([place])) 1 spray Q5M PRN TL CHEST PAIN; Start 03/19 at 12:30; Status Future Hold Guaifenesin 200 mg 200 mg Q4H PRN PO COUGH Last administered on 03/19/17 22:13 ; Admin Dose 200 MG; Start 03/19/17 at 22:30 Piperacillin Sod/ Tazobactam Sod (Zosyn 2.25gm/ 50ml (Pmx)) 50 ml @ 100 mls/hr Q8 IVPB Last administered on 03/27/17 05:23; Admin Dose 100 MLS/HR; Start at 14:00 Epoetin Lyle (Epogen (Esrd)) 10,000 units MoWeFr@17 SC Last administered on 03/25 17:37; Admin Dose 10,000 UNITS; Start 03/20/17 at 17:00 Hydralazine HCl (Apresoline) 10 mg Q6H PRN IV ELEVATED BLOOD PRESSURE; Start at 01:30 Carvedilol (Coreg) 3.125 mg BID PO ; Start 03/22/17 at 20:00 Methylprednisolone Sodium Succinate (Solu-Medrol) 20 mg Q12 IV Last administered on 03/26/17 21:09; Admin Dose 20 MG; Start 03/24/17 at 09:00 Docusate Sodium (Colace) 300 mg HS PO Last administered on 03/26/17 21:10; Admin Dose 300 MG; Start 03/25/17 at 21:00 Multivit/Ca Carb/ B Cmplx/FA/Prenat (Gi-Evelio) 1 tab DAILY PO Last administered on 03/26/17 12:46; Admin Dose 1 TAB; Start 03/25/17 at 09:00 Pantoprazole (Protonix Tab) 40 mg Q12 PO Last administered on 03/26/17 21:10; Admin Dose 40 MG; Start 03/25/17 at 09:00 Ranolazine (Ranexa) 500 mg Q12 PO Last administered on 03/26/17 21:09; Admin Dose 500 MG; Start 03/25/17 at 09:00 Ropinirole HCl (Requip) 0.5 mg TID PRN PO PAIN LEVEL 1-5 Last administered on 21:10; Admin Dose 0.5 MG; Start 03/25/17 at 09:00 Calcium Carbonate (Tums) 500 mg Q6H PRN PO GASTROINTESTINAL UPSET Last administered on 03/26/17 21:10; Admin Dose 500 MG; Start 03/26/17 at 08:30 Famotidine (Pepcid) 20 mg DAILY PO ; Start 03/27/17 at 09:00 ALONZO SERRA MD Mar 27, 2017 07:38
[2017-03-27] MEDS: SEVELAMER 800 MG TAB PO SCH ×3 (08:32→17:55)
[2017-03-27] MEDS: ROPINIROLE 0.25 MG TAB PO PRN ×3 (08:32→20:14)
[2017-03-27] MEDS: ALLOPURINOL 100 MG TAB PO SCH (08:32)
[2017-03-27] MEDS: MULTIVIT/CA CARB/B CMPLX/FA TAB PO SCH (08:32)
[2017-03-27] MEDS: PANTOPRAZOLE (EC) 40 MG TAB PO SCH ×2 (08:32→20:14)
[2017-03-27] MEDS: FAMOTIDINE 20 MG TAB PO SCH (08:32)
[2017-03-27] MEDS: LOSARTAN 25 MG TAB PO SCH (08:59)
[2017-03-27] MEDS: RANOLAZINE (SR) 500 MG TAB PO SCH ×2 (08:59→20:15)
[2017-03-27] MEDS: METHYLPREDNISOLONE 40 MG INJ IV SCH ×2 (11:24→20:27)
[2017-03-27] MEDS: ALBUMIN HUMAN 25% 100 ML IV SCH ×2 (15:50→16:50)
[2017-03-27] MEDS: ATORVASTATIN 40 MG TAB PO SCH (20:14)
[2017-03-27] MEDS: CLOPIDOGREL 75 MG TAB PO SCH (20:14)
[2017-03-27] MEDS: GABAPENTIN 100 MG CAP PO SCH ×2 (20:15→20:30)
[2017-03-27] MEDS: ASPIRIN (EC) 81 MG TAB PO SCH (20:15)
[2017-03-27] MEDS: DOCUSATE SODIUM 100 MG CAP PO SCH (20:16)
[2017-03-27] MEDS: EPOETIN 10000 UNITS/1 ML INJ (ESRD) SC SCH (20:27)
[2017-03-27] MEDS: ZOLPIDEM 5 MG TAB PO PRN (21:13)
[2017-03-28] VITALS (12 sets, daily range): BP systolic 133–149; BP diastolic 60–84; PULSE 94–101; RESP 17–20
[2017-03-28] MEDS: ALBUTEROL 0.083% (NEB) 2.5 MG/3 ML AMP HHN PRN (05:36)
[2017-03-28] MEDS: PIPER-TAZO 2.25 GM (PMX) 50 ML IVPB SCH ×3 (05:48→21:10)
[2017-03-28] MEDS: ROPINIROLE 0.25 MG TAB PO PRN ×2 (05:48→14:27)
--- NOTE | 2017-03-28 08:08 | CONS ---
Date/Time of Note Date/Time of Note DATE: 03/28/17 TIME: 08:05 Assessment/Plan Assessment/Plan Problems: (1) ESRD (end stage renal disease) on dialysis Comment: next HD Mon..good uf yesterday (2) Fluid overload Status: Acute Comment: resolving (3) Anemia Status: Acute Comment: on EPO (4) GERD (gastroesophageal reflux disease) Comment: quiet now on meds (5) SOB (shortness of breath) Comment: asthmatic bronchitis responding... check CXR today Consultation Date/Type/Reason Admit Date/Time Mar 19, 2017 at 10:34 Initial Consult Date 03/19/17 Type of Consultation: neph Referring Provider: POP BOYCE MD 24 HR Interval Summary Free Text/Dictation in good spirits...feels better Exam/Review of Systems Vital Signs Vitals Vital Signs Date Time Temp Pulse Resp B/P Pulse Ox O2 Delivery O2 Flow Rate FiO2 03/28/17 07:52 97.6 96 19 143/84 100 03/28/17 05:36 Nasal Cannula 3.0 03/24/17 18:06 32 Intake and Output 03/27/17 03/27/17 03/28/17 15:00 23:00 07:00 Intake Total 550 ml 200 ml Output Total 6500 ml Balance -5950 ml 200 ml Exam Constitutional: alert, oriented Psych: nl mood/affect, no complaints Eyes: nl conjunctiva Neck: supple Respiratory: other (occ wheeze) Cardiovascular: regular rate and rhythm Gastrointestinal: soft Extremities: normal pulses (fxn avf ) Results Result Diagram: 03/26/1761403/26/1715 Medications Medications Current Medications Ondansetron HCl (Zofran Tab) 4 mg Q6H PRN PO NAUSEA AND/OR VOMITING Last administered on 03/23/17 03:05; Admin Dose 4 MG; Start 03/19/17 at 12:30 Nitroglycerin (Nitroglycerin (Sl Tab) 0.4 Mg) 1 tab Q5M PRN SL CHEST PAIN; Start 03/19/17 at 12:30 Acetaminophen (Tylenol Tab) 650 mg Q6H PRN PO PAIN LEVEL 1-3 OR FEVER Last administered on 03/24/17 09:24; Admin Dose 650 MG; Start 03/19/17 at 12:30 Zolpidem Tartrate (Ambien) 5 mg QHS PRN PO INSOMNIA Last administered on 21:13; Admin Dose 5 MG; Start 03/19/17 at 12:30 Docusate Sodium (Colace) 100 mg Q12H PRN PO CONSTIPATION Last administered on 21:44; Admin Dose 100 MG; Start 03/19/17 at 12:30 Bisacodyl (Dulcolax) 5 mg DAILY PRN PO CONSTIPATION Last administered on 20:10; Admin Dose 5 MG; Start 03/19/17 at 12:30 Allopurinol (Zyloprim) 100 mg DAILY PO Last administered on 03/27/17 08:32; Admin Dose 100 MG; Start 03/20/17 at 09:00 Alprazolam (Xanax) 0.25 mg QHS PRN PO ANXIETY Last administered on 03/23/17 16: 30; Admin Dose 0.25 MG; Start 03/19/17 at 12:30 Aspirin (Halfprin) 81 mg QHS PO Last administered on 03/27/17 20:15; Admin Dose 81 MG; Start 03/19/17 at 21:00 Atorvastatin Calcium (Lipitor) 40 mg QHS PO Last administered on 03/27/17 20:14 ; Admin Dose 40 MG; Start 03/19/17 at 21:00 Carisoprodol (Soma) 175 mg DAILY PRN PO MUSCLE SPASMS; Start 03/19/17 at 12:30 Clopidogrel Bisulfate (plaVIX) 75 mg QHS PO Last administered on 03/27/17 20:14 ; Admin Dose 75 MG; Start 03/19/17 at 21:00 Gabapentin (Neurontin) 100 mg QHS PO ; Start 03/19/17 at 21:00 Acetaminophen/ Hydrocodone Bitart ([place] (7.5-325)) 7.5 tab DAILY PRN PO SEVERE PAIN LEVEL 7-10; Start 03/19/17 at 12:30 Losartan Potassium (Cozaar) 25 mg DAILY PO ; Start 03/20/17 at 09:00 Nitroglycerin (Nitroglycerin ([place])) 1 spray Q5M PRN TL CHEST PAIN; Start 03/19 at 12:30; Status Future Hold Guaifenesin 200 mg 200 mg Q4H PRN PO COUGH Last administered on 03/19/17 22:13 ; Admin Dose 200 MG; Start 03/19/17 at 22:30 Piperacillin Sod/ Tazobactam Sod (Zosyn 2.25gm/ 50ml (Pmx)) 50 ml @ 100 mls/hr Q8 IVPB Last administered on 03/28/17 05:48; Admin Dose 100 MLS/HR; Start 03/20 at 14:00 Epoetin Lyle (Epogen (Esrd)) 10,000 units MoWeFr@17 SC Last administered on 03/27 20:27; Admin Dose 10,000 UNITS; Start 03/20/17 at 17:00 Hydralazine HCl (Apresoline) 10 mg Q6H PRN IV ELEVATED BLOOD PRESSURE; Start at 01:30 Carvedilol (Coreg) 3.125 mg BID PO ; Start 03/22/17 at 20:00 Methylprednisolone Sodium Succinate (Solu-Medrol) 20 mg Q12 IV Last administered on 03/27/17 20:27; Admin Dose 20 MG; Start 03/24/17 at 09:00 Docusate Sodium (Colace) 300 mg HS PO Last administered on 03/27/17 20:16; Admin Dose 300 MG; Start 03/25/17 at 21:00 Multivit/Ca Carb/ B Cmplx/FA/Prenat (Gi-Evelio) 1 tab DAILY PO Last administered on 03/27/17 08:32; Admin Dose 1 TAB; Start 03/25/17 at 09:00 Pantoprazole (Protonix Tab) 40 mg Q12 PO Last administered on 03/27/17 20:14; Admin Dose 40 MG; Start 03/25/17 at 09:00 Ranolazine (Ranexa) 500 mg Q12 PO Last administered on 03/27/17 20:15; Admin Dose 500 MG; Start 03/25/17 at 09:00 Ropinirole HCl (Requip) 0.5 mg TID PRN PO PAIN LEVEL 1-5 Last administered on 05:48; Admin Dose 0.5 MG; Start 03/25/17 at 09:00 Calcium Carbonate (Tums) 500 mg Q6H PRN PO GASTROINTESTINAL UPSET Last administered on 03/26/17 21:10; Admin Dose 500 MG; Start 03/26/17 at 08:30 Famotidine (Pepcid) 20 mg DAILY PO Last administered on 03/27/17 08:32; Admin Dose 20 MG; Start 03/27/17 at 09:00 POP BOYCE MD Mar 28, 2017 08:08
[2017-03-28] MEDS: FAMOTIDINE 20 MG TAB PO SCH (08:17)
[2017-03-28] MEDS: ALLOPURINOL 100 MG TAB PO SCH (08:17)
[2017-03-28] MEDS: PANTOPRAZOLE (EC) 40 MG TAB PO SCH ×2 (08:17→20:07)
[2017-03-28] MEDS: SEVELAMER 800 MG TAB PO SCH ×3 (08:17→18:01)
[2017-03-28] MEDS: MULTIVIT/CA CARB/B CMPLX/FA TAB PO SCH (08:17)
[2017-03-28] MEDS: LOSARTAN 25 MG TAB PO SCH (08:19)
[2017-03-28] MEDS: RANOLAZINE (SR) 500 MG TAB PO SCH ×2 (08:20→20:08)
[2017-03-28] MEDS: METHYLPREDNISOLONE 40 MG INJ IV SCH (09:12)
--- NOTE | 2017-03-28 10:43 | RADRPT ---
PROCEDURE: XR Chest. CLINICAL INDICATION: Shortness of breath TECHNIQUE: Single frontal chest x-ray. COMPARISON: 03/24/2017 FINDINGS: The lungs are clear of acute infiltrates, edema, effusions, or masses. Calcific atherosclerosis of t he aorta is present.. There is mild cardiomegaly unchanged.. The osseous structures are intact. Ol d healed left rib fractures are present. IMPRESSION: No acute cardiopulmonary disease. Mild cardiomegaly with calcific atherosclerosis of the aorta. RPTAT: QQ .Eugene Willis MD, MD Date Time Electronically viewed and signed by .Eugene Willis MD, MD on 03/28/2017 10:42 .L/
--- NOTE | 2017-03-28 12:18 | PSY ---
Date/Time of Note Date/Time of Note DATE: 03/28/17 TIME: 12:13 Psychiatric Subjective Eval Consent Pt consented to telemedicine: Yes Subjective Evaluation Patient location: inpatient Chief Complaint: INCREASED SOB THIS AM, DENIES CP History of present illness report received from Dennis RIGGINS. Pt is 71 yo retired male with multiple medical problems including ESRD who expressed vague Si during SW assesment. Pt is calm, pleasant and cooperative; pt denies to cecy any SI:'THat lady was so serious.. I was just joking.." Pt admits to being at times overwhelmed about his medical problemes but denies SI and overt depression. he is on Xanax prn for anxiety. He denies feeling hopeless or helpless, denies ah or vh, denies insomnia, denies si or hi. Past psychiatric history denies Medical history Problems Medical Problems: (1) Acute renal failure Status: Acute (2) Acute respiratory failure Status: Acute (3) Anemia Status: Acute (4) Anemia Status: Acute (5) Chest pain Status: Acute (6) Chest pain Status: Acute (7) Chest pain Status: Acute (8) Chronic renal failure Status: Acute (9) Congestive heart failure Status: Acute (10) Congestive heart failure Status: Acute (11) Fluid overload Status: Acute (12) Fluid overload Status: Acute (13) Hypertensive emergency Status: Acute (14) NSTEMI (non-ST elevated myocardial infarction) Status: Acute (15) Pleural effusion on right Status: Acute (16) Pulmonary edema Status: Acute (17) Respiratory distress Status: Acute (18) ST elevation (STEMI) myocardial infarction Status: Acute Allergies: Coded Allergies: No Known Allergy (Unverified , 03/28/17) PT. WAS ON BICILLIN BEFORE, WAS TOLD BY THE DOCTOR THAT HE IS NOT ALLERGIC TO PCN. Substance Abuse Substance use: No known substance abuse Social History Marital status: Level of education: retired Psychiatric Objective Eval Physical Examination: Sleep: Adequate Appetite: Adequate Energy: Decreased Interest: Adequate Mental Status Examination: Appearance: Disheveled Eye Contact: Good Psychomotor Activity: Normal Behavior: Friendly Speech: Clear AFFECT: Appropriate Though Process: Linear Thought Content: Normal Suicidal: No Homicidal: No On 72 hour hold: No Orientation: x3 Cognition: Alert Insight: Intact Judgement: Intact Laboratory Results Laboratory Tests Test 03/28/17 10:00 Random Vancomycin Level 14.5ug/ml Assessment and Plan Assessment/Diagnosis 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 Pt refused tough Follow-up/Disposition please refer to outpt mental health; - please consider arranging visiting therapist if such services available in the county JUSTYN TORRES MD Mar 28, 2017 12:18
[2017-03-28] MEDS ORDERED: VANCOMYCIN 1 GM in NS 250 ML IVPB SCH (18:00)
[2017-03-28] MEDS: GABAPENTIN 100 MG CAP PO SCH (20:07)
[2017-03-28] MEDS: DOCUSATE SODIUM 100 MG CAP PO SCH (20:07)
[2017-03-28] MEDS: BISACODYL (EC) 5 MG TAB PO PRN (20:08)
[2017-03-28] MEDS: ASPIRIN (EC) 81 MG TAB PO SCH (20:08)
[2017-03-28] MEDS: ATORVASTATIN 40 MG TAB PO SCH (20:09)
[2017-03-28] MEDS: CLOPIDOGREL 75 MG TAB PO SCH (20:09)
[2017-03-28] MEDS: ZOLPIDEM 5 MG TAB PO PRN (21:13)
[2017-03-29] VITALS (11 sets, daily range): BP systolic 115–153; BP diastolic 56–75; PULSE 78–99; RESP 18–19
[2017-03-29] MEDS: ALBUTEROL 0.083% (NEB) 2.5 MG/3 ML AMP HHN PRN ×4 (00:52→20:57)
[2017-03-29] MEDS: PIPER-TAZO 2.25 GM (PMX) 50 ML IVPB SCH ×4 (05:54→21:34)
--- NOTE | 2017-03-29 08:15 | CONS ---
Date/Time of Note Date/Time of Note DATE: 03/29/17 TIME: 08:14 Assessment/Plan Assessment/Plan Problems: (1) ESRD (end stage renal disease) on dialysis Comment: for HD in am (2) Congestive heart failure Status: Acute Comment: markedly better.. f/u CXR now clear (3) Cough Comment: asthmatic bronchitis improved.. switch to po pred (4) GERD (gastroesophageal reflux disease) Comment: now asx w meds Consultation Date/Type/Reason Admit Date/Time Mar 19, 2017 at 10:34 Initial Consult Date 03/19/17 Type of Consultation: neph Referring Provider: POP BOYCE MD 24 HR Interval Summary Free Text/Dictation looks great,,, amb in [place] yesterday Exam/Review of Systems Vital Signs Vitals Vital Signs Date Time Temp Pulse Resp B/P Pulse Ox O2 Delivery O2 Flow Rate FiO2 03/29/17 07:05 98.5 77 18 115/56 99 03/29/17 05:33 Nasal Cannula 3.0 Intake and Output 03/28/17 03/28/17 03/29/17 15:00 23:00 07:00 Intake Total 360 ml 120 ml Balance 360 ml 120 ml Exam Constitutional: alert, oriented Eyes: nl conjunctiva Neck: supple Respiratory: clear to auscultation Cardiovascular: regular rate and rhythm Gastrointestinal: soft Extremities: normal pulses (LUE AVF) Results Result Diagram: 03/26/1715 03/26/1715 Results 24 hrs Laboratory Tests Test 03/28/17 10:00 Random Vancomycin Level 14.5 Medications Medications Current Medications Ondansetron HCl (Zofran Tab) 4 mg Q6H PRN PO NAUSEA AND/OR VOMITING Last administered on 03/23/17 03:05; Admin Dose 4 MG; Start 03/19/17 at 12:30 Nitroglycerin (Nitroglycerin (Sl Tab) 0.4 Mg) 1 tab Q5M PRN SL CHEST PAIN Last administered on 03/28/17 20:07; Admin Dose 1 TAB; Start 03/19/17 at 12:30 Acetaminophen (Tylenol Tab) 650 mg Q6H PRN PO PAIN LEVEL 1-3 OR FEVER Last administered on 03/24/17 09:24; Admin Dose 650 MG; Start 03/19/17 at 12:30 Zolpidem Tartrate (Ambien) 5 mg QHS PRN PO INSOMNIA Last administered on 21:13; Admin Dose 5 MG; Start 03/19/17 at 12:30 Docusate Sodium (Colace) 100 mg Q12H PRN PO CONSTIPATION Last administered on 21:44; Admin Dose 100 MG; Start 03/19/17 at 12:30 Bisacodyl (Dulcolax) 5 mg DAILY PRN PO CONSTIPATION Last administered on 20:08; Admin Dose 5 MG; Start 03/19/17 at 12:30 Allopurinol (Zyloprim) 100 mg DAILY PO Last administered on 03/28/17 08:17; Admin Dose 100 MG; Start 03/20/17 at 09:00 Alprazolam (Xanax) 0.25 mg QHS PRN PO ANXIETY Last administered on 03/23/17 16: 30; Admin Dose 0.25 MG; Start 03/19/17 at 12:30 Aspirin (Halfprin) 81 mg QHS PO Last administered on 03/28/17 20:08; Admin Dose 81 MG; Start 03/19/17 at 21:00 Atorvastatin Calcium (Lipitor) 40 mg QHS PO Last administered on 03/28/17 20: 09; Admin Dose 40 MG; Start 03/19/17 at 21:00 Carisoprodol (Soma) 175 mg DAILY PRN PO MUSCLE SPASMS; Start 03/19/17 at 12:30 Clopidogrel Bisulfate (plaVIX) 75 mg QHS PO Last administered on 03/28/17 20: 09; Admin Dose 75 MG; Start 03/19/17 at 21:00 Gabapentin (Neurontin) 100 mg QHS PO Last administered on 03/28/17 20:07; Admin Dose 100 MG; Start 03/19/17 at 21:00 Acetaminophen/ Hydrocodone Bitart ([place] (7.5-325)) 7.5 tab DAILY PRN PO SEVERE PAIN LEVEL 7-10; Start 03/19/17 at 12:30 Losartan Potassium (Cozaar) 25 mg DAILY PO ; Start 03/20/17 at 09:00 Nitroglycerin (Nitroglycerin ([place])) 1 spray Q5M PRN TL CHEST PAIN; Start 03/19 at 12:30; Status Future Hold Guaifenesin 200 mg 200 mg Q4H PRN PO COUGH Last administered on 03/19/17 22:13 ; Admin Dose 200 MG; Start 03/19/17 at 22:30 Piperacillin Sod/ Tazobactam Sod (Zosyn 2.25gm/ 50ml (Pmx)) 50 ml @ 100 mls/hr Q8 IVPB Last administered on 03/29/17 05:54; Admin Dose 100 MLS/HR; Start 03/20 at 14:00 Epoetin Lyle (Epogen (Esrd)) 10,000 units MoWeFr@17 SC Last administered on 03/27 20:27; Admin Dose 10,000 UNITS; Start 03/20/17 at 17:00 Hydralazine HCl (Apresoline) 10 mg Q6H PRN IV ELEVATED BLOOD PRESSURE; Start at 01:30 Carvedilol (Coreg) 3.125 mg BID PO Last administered on 03/28/17 20:08; Admin Dose 3.125 MG; Start 03/22/17 at 20:00 Docusate Sodium (Colace) 300 mg HS PO Last administered on 03/28/17 20:07; Admin Dose 300 MG; Start 03/25/17 at 21:00 Multivit/Ca Carb/ B Cmplx/FA/Prenat (Gi-Evelio) 1 tab DAILY PO Last administered on 03/28/17 08:17; Admin Dose 1 TAB; Start 03/25/17 at 09:00 Pantoprazole (Protonix Tab) 40 mg Q12 PO Last administered on 03/28/17 20:07; Admin Dose 40 MG; Start 03/25/17 at 09:00 Ranolazine (Ranexa) 500 mg Q12 PO Last administered on 03/28/17 20:08; Admin Dose 500 MG; Start 03/25/17 at 09:00 Ropinirole HCl (Requip) 0.5 mg TID PRN PO PAIN LEVEL 1-5 Last administered on 14:27; Admin Dose 0.5 MG; Start 03/25/17 at 09:00 Calcium Carbonate (Tums) 500 mg Q6H PRN PO GASTROINTESTINAL UPSET Last administered on 03/26/17 21:10; Admin Dose 500 MG; Start 03/26/17 at 08:30 Famotidine (Pepcid) 20 mg DAILY PO Last administered on 03/28/17 08:17; Admin Dose 20 MG; Start 03/27/17 at 09:00 Methylprednisolone Sodium Succinate (Solu-Medrol) 20 mg DAILY IV Last administered on 03/28/17 09:12; Admin Dose 20 MG; Start 03/28/17 at 09:00 POP BOYCE MD Mar 29, 2017 08:15
[2017-03-29] MEDS: METHYLPREDNISOLONE 40 MG INJ IV SCH (08:58)
[2017-03-29] MEDS: SEVELAMER 800 MG TAB PO SCH ×3 (08:58→17:53)
[2017-03-29] MEDS: LOSARTAN 25 MG TAB PO SCH ×2 (09:00→18:24)
[2017-03-29] MEDS: RANOLAZINE (SR) 500 MG TAB PO SCH ×2 (09:00→18:29)
[2017-03-29] MEDS: MULTIVIT/CA CARB/B CMPLX/FA TAB PO SCH (09:00)
[2017-03-29] MEDS: PANTOPRAZOLE (EC) 40 MG TAB PO SCH ×2 (09:01→20:17)
[2017-03-29] MEDS: FAMOTIDINE 20 MG TAB PO SCH (09:03)
[2017-03-29] MEDS: ALLOPURINOL 100 MG TAB PO SCH (09:03)
[2017-03-29] MEDS: predniSONE 20 MG TAB PO SCH (09:04)
[2017-03-29] MEDS: ROPINIROLE 0.25 MG TAB PO PRN ×4 (09:15→21:37)
[2017-03-29] MEDS: ATORVASTATIN 40 MG TAB PO SCH (20:05)
[2017-03-29] MEDS: CLOPIDOGREL 75 MG TAB PO SCH (20:06)
[2017-03-29] MEDS: DOCUSATE SODIUM 100 MG CAP PO PRN (20:07)
[2017-03-29] MEDS: BISACODYL (EC) 5 MG TAB PO PRN (20:10)
[2017-03-29] MEDS: ZOLPIDEM 5 MG TAB PO PRN (20:10)
[2017-03-29] MEDS: ASPIRIN (EC) 81 MG TAB PO SCH (20:17)
[2017-03-29] MEDS: GABAPENTIN 100 MG CAP PO SCH (20:18)
[2017-03-29] MEDS: DOCUSATE SODIUM 100 MG CAP PO SCH (20:18)
[2017-03-30] VITALS (21 sets, daily range): BP systolic 110–146; BP diastolic 56–77; PULSE 70–94; RESP 18–19
[2017-03-30 05:56] LABS: ADD SCAN DIFF NO
[2017-03-30 06:09] LABS: BASOPHILS % 0.1 % (0.0-2.0); EOSINOPHILS % 0.1 % (0.0-7.0); HEMATOCRIT 28.5 % (42.0-52.0); HEMOGLOBIN 8.6 g/dl (14.0-18.0); LYMPHOCYTES # 1.5 10^3/ul (0.8-2.9); LYMPHOCYTES % 11.9 % (15.0-51.0); MEAN CORPUSCULAR HEMOGLOBIN 30.2 pg (29.0-33.0); MEAN CORPUSCULAR HGB CONC 30.2 g/dl (32.0-37.0); MEAN PLATELET VOLUME 10.8 fl (7.4-10.4); MONOCYTE # 0.5 10^3/ul (0.3-0.9); NEUTROPHILS % 81.8 % (39.0-77.0); NUCLEATED RED BLOOD CELLS% 0.3 /100WBC (0.0-0.0); PLATELET COUNT 280 10^3/UL (140-415); RED BLOOD COUNT 2.85 10^6/ul (4.70-6.10); RED CELL DISTRIBUTION WIDTH 19.3 % (11.5-14.5); WHITE BLOOD COUNT 12.2 10^3/ul (4.8-10.8)
[2017-03-30] MEDS: PIPER-TAZO 2.25 GM (PMX) 50 ML IVPB SCH (06:11)
--- NOTE | 2017-03-30 07:43 | CONS ---
Date/Time of Note Date/Time of Note DATE: 03/30/17 TIME: 07:41 Assessment/Plan Assessment/Plan Problems: (1) HTN (hypertension) Comment: controlled (2) ESRD (end stage renal disease) on dialysis Comment: for HD today (3) Fluid overload Status: Acute Comment: better...recheck CXR post HD today (4) Cough Comment: will see about arranging for Home Nebi Rx...d/c IV abx today... change to po pred today Consultation Date/Type/Reason Admit Date/Time Mar 19, 2017 at 10:34 Initial Consult Date 03/19/17 Type of Consultation: neph Referring Provider: POP BOYCE MD 24 HR Interval Summary Free Text/Dictation better...still w HHn Rx tho Exam/Review of Systems Vital Signs Vitals Vital Signs Date Time Temp Pulse Resp B/P Pulse Ox O2 Delivery O2 Flow Rate FiO2 03/30/17 07:33 98.0 85 18 134/64 100 03/30/17 02:52 3.0 03/29/17 20:58 Nasal Cannula Intake and Output 03/29/17 03/29/17 03/30/17 15:00 23:00 07:00 Intake Total 720 ml Balance 720 ml Exam Constitutional: alert, oriented Psych: no complaints Eyes: nl conjunctiva Neck: supple Respiratory: wheezing (rare now) Cardiovascular: regular rate and rhythm Gastrointestinal: soft Extremities: normal pulses Results Result Diagram: 03/30/17 0540 03/26/17 0615 Results 24 hrs Laboratory Tests Test 03/30/17 05:40 White Blood Count 12.2 #H Red Blood Count 2.85 L Hemoglobin 8.6 L Hematocrit 28.5 L Mean Corpuscular Volume 100.0 Mean Corpuscular Hemoglobin 30.2 Mean Corpuscular Hemoglobin Concent 30.2 L Red Cell Distribution Width 19.3 H Platelet Count 280 # Mean Platelet Volume 10.8 H Neutrophils % 81.8 H Lymphocytes % 11.9 L Monocytes % 4.0 Eosinophils % 0.1 Basophils % 0.1 Nucleated Red Blood Cells % 0.3 H Neutrophils # 10.0 H Lymphocytes # 1.5 Monocytes # 0.5 Eosinophils # 0.0 Basophils # 0.0 Nucleated Red Blood Cells # 0.0 Medications Medications Current Medications Ondansetron HCl (Zofran Tab) 4 mg Q6H PRN PO NAUSEA AND/OR VOMITING Last administered on 03/23/17 03:05; Admin Dose 4 MG; Start 03/19/17 at 12:30 Nitroglycerin (Nitroglycerin (Sl Tab) 0.4 Mg) 1 tab Q5M PRN SL CHEST PAIN Last administered on 03/28/17 20:07; Admin Dose 1 TAB; Start 03/19/17 at 12:30 Acetaminophen (Tylenol Tab) 650 mg Q6H PRN PO PAIN LEVEL 1-3 OR FEVER Last administered on 03/24/17 09:24; Admin Dose 650 MG; Start 03/19/17 at 12:30 Zolpidem Tartrate (Ambien) 5 mg QHS PRN PO INSOMNIA Last administered on 20:10; Admin Dose 5 MG; Start 03/19/17 at 12:30 Docusate Sodium (Colace) 100 mg Q12H PRN PO CONSTIPATION Last administered on 20:07; Admin Dose 100 MG; Start 03/19/17 at 12:30 Bisacodyl (Dulcolax) 5 mg DAILY PRN PO CONSTIPATION Last administered on 20:10; Admin Dose 5 MG; Start 03/19/17 at 12:30 Allopurinol (Zyloprim) 100 mg DAILY PO Last administered on 03/29/17 09:03; Admin Dose 100 MG; Start 03/20/17 at 09:00 Alprazolam (Xanax) 0.25 mg QHS PRN PO ANXIETY Last administered on 03/23/17 16: 30; Admin Dose 0.25 MG; Start 03/19/17 at 12:30 Aspirin (Halfprin) 81 mg QHS PO Last administered on 03/29/17 20:17; Admin Dose 81 MG; Start 03/19/17 at 21:00 Atorvastatin Calcium (Lipitor) 40 mg QHS PO Last administered on 03/29/17 20: 05; Admin Dose 40 MG; Start 03/19/17 at 21:00 Carisoprodol (Soma) 175 mg DAILY PRN PO MUSCLE SPASMS; Start 03/19/17 at 12:30 Clopidogrel Bisulfate (plaVIX) 75 mg QHS PO Last administered on 03/29/17 20: 06; Admin Dose 75 MG; Start 03/19/17 at 21:00 Gabapentin (Neurontin) 100 mg QHS PO Last administered on 03/28/17 20:07; Admin Dose 100 MG; Start 03/19/17 at 21:00 Acetaminophen/ Hydrocodone Bitart ([place] (7.5-325)) 7.5 tab DAILY PRN PO SEVERE PAIN LEVEL 7-10; Start 03/19/17 at 12:30 Losartan Potassium (Cozaar) 25 mg DAILY PO Last administered on 03/29/17 18:24 ; Admin Dose 25 MG; Start 03/20/17 at 09:00 Nitroglycerin (Nitroglycerin ([place])) 1 spray Q5M PRN TL CHEST PAIN; Start 03/19 at 12:30; Status Future Hold Guaifenesin 200 mg 200 mg Q4H PRN PO COUGH Last administered on 03/19/17 22:13 ; Admin Dose 200 MG; Start 03/19/17 at 22:30 Piperacillin Sod/ Tazobactam Sod (Zosyn 2.25gm/ 50ml (Pmx)) 50 ml @ 100 mls/hr Q8 IVPB Last administered on 03/30/17 06:11; Admin Dose 100 MLS/HR; Start 03/20 at 14:00 Epoetin Lyle (Epogen (Esrd)) 10,000 units MoWeFr@17 SC Last administered on 03/27 20:27; Admin Dose 10,000 UNITS; Start 03/20/17 at 17:00 Hydralazine HCl (Apresoline) 10 mg Q6H PRN IV ELEVATED BLOOD PRESSURE; Start at 01:30 Carvedilol (Coreg) 3.125 mg BID PO Last administered on 03/29/17 18:24; Admin Dose 3.125 MG; Start 03/22/17 at 20:00 Docusate Sodium (Colace) 300 mg HS PO Last administered on 03/28/17 20:07; Admin Dose 300 MG; Start 03/25/17 at 21:00 Multivit/Ca Carb/ B Cmplx/FA/Prenat (Gi-Evelio) 1 tab DAILY PO Last administered on 03/29/17 09:00; Admin Dose 1 TAB; Start 6/7/17 at 09:00 Pantoprazole (Protonix Tab) 40 mg Q12 PO Last administered on 03/29/17 20:17; Admin Dose 40 MG; Start 03/25/17 at 09:00 Ranolazine (Ranexa) 500 mg Q12 PO Last administered on 03/29/17 18:29; Admin Dose 500 MG; Start 03/25/17 at 09:00 Ropinirole HCl (Requip) 0.5 mg TID PRN PO PAIN LEVEL 1-5 Last administered on 21:37; Admin Dose 0.5 MG; Start 03/25/17 at 09:00 Calcium Carbonate (Tums) 500 mg Q6H PRN PO GASTROINTESTINAL UPSET Last administered on 03/26/17 21:10; Admin Dose 500 MG; Start 03/26/17 at 08:30 Famotidine (Pepcid) 20 mg DAILY PO Last administered on 03/29/17 09:03; Admin Dose 20 MG; Start 03/27/17 at 09:00 Methylprednisolone Sodium Succinate (Solu-Medrol) 20 mg DAILY IV Last administered on 03/29/17 08:58; Admin Dose 20 MG; Start 03/28/17 at 09:00; Stop 03/30/17 at 08:15 Prednisone (Prednisone) 20 mg DAILY PO Last administered on 03/29/17 09:04; Admin Dose 20 MG; Start 03/29/17 at 09:00 POP BOYCE MD Mar 30, 2017 07:43
[2017-03-30] MEDS: CALCIUM CARBONATE 500 MG CHEW TAB PO PRN ×2 (08:36→14:11)
[2017-03-30] MEDS: PANTOPRAZOLE (EC) 40 MG TAB PO SCH ×2 (08:37→20:42)
[2017-03-30] MEDS: FAMOTIDINE 20 MG TAB PO SCH (08:37)
[2017-03-30] MEDS: SEVELAMER 800 MG TAB PO SCH ×3 (08:38→17:43)
[2017-03-30] MEDS: ROPINIROLE 0.25 MG TAB PO PRN ×2 (08:43→20:42)
[2017-03-30] MEDS: LOSARTAN 25 MG TAB PO SCH (09:00)
[2017-03-30] MEDS: RANOLAZINE (SR) 500 MG TAB PO SCH ×2 (09:00→20:42)
[2017-03-30] MEDS ORDERED: ALBUMIN HUMAN 25% 100 ML IV ONE (11:30)
--- NOTE | 2017-03-30 13:53 | RADRPT ---
PROCEDURE: XR Chest. CLINICAL INDICATION: Congestive heart failure. TECHNIQUE: Chest x-ray, single view. COMPARISON: 03/28/2017. FINDINGS: The heart is enlarged and unchanged in size. Aortic arch atherosclerotic calcification is present. Mild central and peripheral pulmonary vascular prominence has developed suggesting a mild degree of vascular congestion. There is no evidence of focal pulmonary parenchymal opacification or large la yering pleural effusion. The visualized upper abdomen is unremarkable. Vascular stents are seen wi thin the right axilla. Vascular calcifications are seen within the soft tissues of the left upper e xtremity. IMPRESSION: Cardiomegaly and atherosclerosis with mild pulmonary vascular congestion. RPTAT: HLST .Bri Bravo MD, Date Time Electronically viewed and signed by .Bri Bravo MD, on 03/30/2017 13:53 .T/
[2017-03-30] MEDS: MULTIVIT/CA CARB/B CMPLX/FA TAB PO SCH (13:55)
[2017-03-30] MEDS: predniSONE 20 MG TAB PO SCH (13:55)
[2017-03-30] MEDS: ALLOPURINOL 100 MG TAB PO SCH (13:55)
--- NOTE | 2017-03-30 17:04 | RADRPT ---
PROCEDURE: XR Chest. CLINICAL INDICATION: Shortness of breath. TECHNIQUE: Single frontal view. COMPARISON: 03/28/2017. FINDINGS: The lungs are clear. The heart size is mildly enlarged. There is calcification in the aorta consistent with atherosclero sis. There is no pleural effusion. There is no pneumothorax. IMPRESSION: 1. Mild cardiomegaly. 2. Atherosclerosis. 3. Clear lungs. RPTAT: QQ .Lazaro Zavaleta MD, MD Date Time Electronically viewed and signed by .Lazaro Zavaleta MD, MD on 03/30/2017 17:04 .R/
[2017-03-30] MEDS: EPOETIN 10000 UNITS/1 ML INJ (ESRD) SC SCH (17:58)
[2017-03-30] MEDS: CLOPIDOGREL 75 MG TAB PO SCH (20:42)
[2017-03-30] MEDS: ASPIRIN (EC) 81 MG TAB PO SCH (20:42)
[2017-03-30] MEDS: ATORVASTATIN 40 MG TAB PO SCH (20:42)
[2017-03-30] MEDS: DOCUSATE SODIUM 100 MG CAP PO SCH (20:42)
[2017-03-30] MEDS: ZOLPIDEM 5 MG TAB PO PRN (20:43)
[2017-03-30] MEDS: GABAPENTIN 100 MG CAP PO SCH (20:46)
[2017-03-31] VITALS: PULSE 95
[2017-03-31] MEDS: ROPINIROLE 0.25 MG TAB PO PRN ×2 (01:23→08:20)
[2017-03-31 04:00] VITALS: PULSE 90
[2017-03-31 07:18] VITALS: BP 137/70; RESP 18
[2017-03-31 08:00] VITALS: PULSE 91; PULSE 92
--- NOTE | 2017-03-31 08:16 | DS ---
DATE OF ADMISSION: 03/19/2017 DATE OF DISCHARGE: 03/31/2017 REASON FOR ADMISSION: Shortness of breath. HISTORY OF PRESENT ILLNESS: Please see my full dictated history and physical for details. Briefly, this is a 71-year-old gentleman with known end-stage renal disease who is maintained on out patient dialysis every Thursday, Thursday, and Thursday, who also has a known history of ischemic cardi omyopathy with LVEF of approximately 30 to 35%, who had suffered a non-ST elevation [place] in November this year. He did undergo PCI and stenting at that time. He was admitted with a gradual onset of dyspnea on the evening after his dialysis, presented to the ER and was admitted with fluid overload. HOSPITAL COURSE: The patient was admitted, noted with a normal white count, stable hematocrit and u nremarkable electrolytes, but the chest x-ray was consistent with CHF. He was admitted and underwent urgent dialysis, and was also seen once again in consultation with Dr. Perez from Cardiology. He agreed with the current plan and that we continue the aspirin, Plavix, losartan, and statin, and did dialysis with vigorous ultrafiltration. His troponin was mildly elevated during this admission. He had no chest pain, and it was Dr. Evelia santiago's opinion that a repeat angiography was not indicated and the head, as per angiograms there was n o other lesion that could be revascularized or stented. Thus, he was continued on vigorous medical therapy, underwent vigorous dialysis with ultrafiltration . Did develop an episode of asthmatic bronchitis during this admission, which was controlled with a ntibiotics, handheld nebulizers and short term IV steroids. At the time of discharge, he was off steroids, off antibiotics, ambulatory and in good spirits. His chest x-ray done the day prior to discharge revealed clear lungs. DISCHARGE DIAGNOSES: 1. Recurrent congestive heart failure with fluid overload, successfully treated with vigorous dialy sis and ultrafiltration. 2. End-stage renal disease, maintained on outpatient dialysis every Thursday, Thursday, and Thursday. 3. Ischemic cardiomyopathy with left ventricular ejection fraction of 30 to 35%. 4. Recent non-ST elevation myocardial infarction in November 2016, status post percutaneous coronar y intervention and stenting of the distal right coronary artery at that time. 5. Chronic left bundle branch block, unchanged. 6. Asthmatic bronchitis, requiring IV antibiotics, handheld nebulizers and steroids, resolved at th e time of discharge. 7. Diabetes mellitus, currently diet controlled. 8. Gastroesophageal reflux disease, currently asymptomatic on his current medications. 9. Diabetic neuropathy, maintained on gabapentin. 10. Restless leg syndrome, treated with Requip. 11. Hyperlipidemia, on statin therapy. 12. Status post prior failed renal transplantation x2. DISPOSITION: Home. FOLLOWUP: Will be with Dr. Boyce and Dr. Perez. CONDITION ON DISCHARGE: Stable and improved. He is to get home health nebulizer with albuterol for his periodic shortness of breath. He does already have home O2 arranged. Dictated By: POP BOYCE MD, MM/RAYA Conf#: [id number] DID#: [id number]
[2017-03-31] MEDS: MULTIVIT/CA CARB/B CMPLX/FA TAB PO SCH (08:20)
[2017-03-31] MEDS: ALLOPURINOL 100 MG TAB PO SCH (08:20)
[2017-03-31] MEDS: SEVELAMER 800 MG TAB PO SCH (08:20)
[2017-03-31] MEDS: predniSONE 20 MG TAB PO SCH (08:21)
[2017-03-31] MEDS: LOSARTAN 25 MG TAB PO SCH (08:21)
[2017-03-31] MEDS: RANOLAZINE (SR) 500 MG TAB PO SCH (08:21)
[2017-03-31] MEDS: FAMOTIDINE 20 MG TAB PO SCH (08:21)
[2017-03-31] MEDS: PANTOPRAZOLE (EC) 40 MG TAB PO SCH (08:21)
[2017-04-01] MEDS ORDERED: NACL 0.9% 3 ML SYG IV SCH (13:00)
[2017-04-01] MEDS ORDERED: ONDANSETRON 4 MG INJ IV PRN (13:00)
[2017-04-01] MEDS ORDERED: ACETAMINOPHEN 325 MG TAB PO PRN (13:00)
[2017-04-01] MEDS ORDERED: DOCUSATE SODIUM 100 MG CAP PO PRN (13:00)
[2017-04-01] MEDS ORDERED: ZOLPIDEM 5 MG TAB PO PRN (13:00)
== END 2017-03-31 10:23 | disposition home or self-care (01) | DRG 291 ==
LOC: E/R 07:36 → TEL 10:34
PROVIDERS: ADMIT Internal Medicine; ATTEND Internal Medicine
PROC: 5A1D60Z (ICD-10-PCS; principal; 2017-03-19)
PROC: 4A033R1 Measurement of Arterial Saturation, Peripheral, Percutaneous Approach (ICD-10-PCS; 2017-03-22)
DX: I13.2 Hypertensive heart and chronic kidney disease with heart failure and with stage 5 chronic kidney disease, or end stage renal disease (principal); I50.43 Acute on chronic combined systolic (congestive) and diastolic (congestive) heart failure; J96.01 Acute respiratory failure with hypoxia; N17.9 Acute kidney failure, unspecified; T86.12 Kidney transplant failure; N18.6 End stage renal disease; I25.5 Ischemic cardiomyopathy; E11.22 Type 2 diabetes mellitus with diabetic chronic kidney disease; Z99.2 Dependence on renal dialysis; I25.2 Old myocardial infarction; E78.5 Hyperlipidemia, unspecified; K21.9 Gastro-esophageal reflux disease without esophagitis; G25.81 Restless legs syndrome; E11.40 Type 2 diabetes mellitus with diabetic neuropathy, unspecified; D64.9 Anemia, unspecified; F32.89 Other specified depressive episodes; I25.10 Atherosclerotic heart disease of native coronary artery without angina pectoris; E11.51 Type 2 diabetes mellitus with diabetic peripheral angiopathy without gangrene; R50.9 Fever, unspecified; M10.9 Gout, unspecified; J45.909 Unspecified asthma, uncomplicated; R74.8 Abnormal levels of other serum enzymes; I44.7 Left bundle-branch block, unspecified; Z79.02 Long term (current) use of antithrombotics/antiplatelets; Z95.5 Presence of coronary angioplasty implant and graft; Z79.82 Long term (current) use of aspirin; Y83.6 Removal of other organ (partial) (total) as the cause of abnormal reaction of the patient, or of later complication, without mention of misadventure at the time of the procedure
CPT/HCPCS: 36415; 36600; 71010; 80048; 80053; 80202; 82550; 82553; 82803; 82962; 83605; 83880; 84484; 85025; 85610; 85730; 87040; 87070; 90935; 93005; 94640; 94660; 94664; 97110; 97161; 97530; J0360; J2543; J2920; J3370; J7030; J7050; J7512; P9047; Q4081

== ENCOUNTER 2017-04-01 08:09 | Inpatient (IN) | payer MEDICARE, OTHER ==
[~2017-04-01] VITALS: Ht 170.2 cm; Wt 76.1 kg
[2017-04-01] VITALS (15 sets, daily range): BP systolic 116–139; BP diastolic 55–94; PULSE 100–116; RESP 20–21; Ht 170.2 cm; Wt 76.1 kg
[2017-04-01] MEDS ORDERED: ASPIRIN 325 MG TAB PO STA (08:18)
[2017-04-01] MEDS ORDERED: CEFEPIME 2GM/50 ML (PMX) 50 ML IVPB STA (08:20)
[2017-04-01 09:12] LABS: ADD SCAN DIFF NO
[2017-04-01 09:14] LABS: BASOPHILS % 0.1 % (0.0-2.0); EOSINOPHILS % 0.1 % (0.0-7.0); HEMOGLOBIN 9.6 g/dl (14.0-18.0); LYMPHOCYTES # 0.7 10^3/ul (0.8-2.9); LYMPHOCYTES % 10.1 % (15.0-51.0); MEAN CORPUSCULAR HEMOGLOBIN 30.1 pg (29.0-33.0); MEAN CORPUSCULAR VOLUME 100.3 fl (82.0-101.0); MEAN PLATELET VOLUME 11.1 fl (7.4-10.4); MONOCYTE # 0.3 10^3/ul (0.3-0.9); MONOCYTES % 4.5 % (0.0-11.0); NEUTROPHIL # 5.8 10^3/ul (1.6-7.5); NEUTROPHILS % 84.3 % (39.0-77.0); PLATELET COUNT 248 10^3/UL (140-415); RED BLOOD COUNT 3.19 10^6/ul (4.70-6.10); RED CELL DISTRIBUTION WIDTH 21.5 % (11.5-14.5); WHITE BLOOD COUNT 6.9 10^3/ul (4.8-10.8)
[2017-04-01 09:33] LABS: INR 1.18; PROTIME 15.1 Sec (12.2-14.2); PT RATIO 1.2
[2017-04-01 09:37] LABS: CALCIUM 10.4 mg/dl (8.4-10.2); CREATININE 9.03 mg/dl (0.61-1.24); POTASSIUM 5.4 mmol/L (3.5-5.1)
[2017-04-01 09:54] LABS: TROPONIN-I 0.28 ng/ml (0.00-0.12)
--- NOTE | 2017-04-01 10:17 | RADRPT ---
PROCEDURE: Chest Radiograph. CLINICAL INDICATION: Chest pain TECHNIQUE: Single frontal chest radiograph. COMPARISON: Chest radiograph 12/04/2016 FINDINGS: The heart is magnified and may be enlarged. Atherosclerotic calcifications are present. No infilt rate or effusion is seen. There are stippled rounded hyperdensities overlying the left lateral ch est wall which may be related to overlying clothing artifact. Left upper extremity stents are in pl ary. The bones are grossly intact. IMPRESSION: 1. No evidence of acute cardiopulmonary disease. 2. Stippled hyperdensities overlying the left upper chest wall laterally which may represent overly ing clothing artifact. Recommend correlation with physical exam. 3. Atherosclerotic vascular disease. RPTAT: KK .Lennox Henderson MD, MD Date Time Electronically viewed and signed by .Lennox Henderson MD, MD on 04/01/2017 10:16 .B/
[2017-04-01] MEDS ORDERED: SOD CHLORIDE 0.9% 1,000 ML IV ONE ×2 (11:00)
[2017-04-01] MEDS ORDERED: ACETAMINOPHEN 325 MG TAB PO PRN ×2 (11:00→13:30)
[2017-04-01] MEDS ORDERED: SOD CHLORIDE 0.9% 250 ML IV ONE (11:00)
[2017-04-01] MEDS ORDERED: ONDANSETRON 4 MG INJ IV PRN ×3 (11:00→13:30)
--- NOTE | 2017-04-01 11:01 | ERA ---
ER Documentation Chief Complaint Date/Time DATE: 04/01/17 TIME: 10:57 Chief Complaint GEN WEAKNESS WITH MILD SOB NO CHEST PAIN. NO COUGH OR CONGESTION. HPI 71-year-old male comes for weakness of his entire body as well as some shortness of breath. He is also had fever and chills. He has had a mild cough. He was recently admitted for pneumonia and just left yesterday. He was scheduled for dialysis today but he felt very sick and came to the emergency room instead. ROS All systems reviewed and are negative except as per history of present illness. Medications Home Meds Active Scripts Losartan Potassium* (Losartan Potassium*) 25 Mg Tablet, 25 MG PO DAILY for 90 Days, TAB 3 Refills Prov:POP BOYCE MD 02/06/17 Pantoprazole* (Pantoprazole*) 40 Mg Tablet.dr, 40 MG PO Q12 for 60 Days Prov:ALONZO SERRA MD 12/05/16 Reported Medications Tiotropium Epps (Spiriva Respimat) 4 Gm Mist.inhal, 2 PUFF INHALATION DAILY, #1 INHALER 01/28/17 Nitroglycerin* (Nitroglycerin* [place]) 400 Mcg/[place] - 12 Gm [place], 1 SPRAY TL Q5M Y for CHEST PAIN, SPRAY 01/28/17 Ranolazine* (Ranexa*) 500 Mg Tab.sr.12h, 500 MG PO Q12, TAB 01/28/17 Sevelamer Carbonate* (Renvela*) 800 Mg Tablet, 0.8 GM PO WITH MEALS, TAB 01/28/17 Zolpidem Tartrate* (Zolpidem Tartrate*) 5 Mg Tablet, 7.5 MG PO QHS Y for INSOMNIA, #30 TAB 12/01/16 Ropinirole Hcl* (Ropinirole Hcl*) 0.5 Mg Tablet, 0.5 MG PO TID, TAB 12/01/16 Clopidogrel Bisulfate (Clopidogrel) 75 Mg Tablet, 75 MG PO QHS, #30 TAB 12/01/16 Hydrocodone/Acetaminophen ([place] 7.5-325 Tablet) 1 Each Tablet, 1 EACH PO DAILY Y for SEVERE PAIN LEVEL 7-10, TAB 12/01/16 Gabapentin* (Gabapentin*) 100 Mg Capsule, 100 MG PO QHS, #90 CAP 12/01/16 Carisoprodol* (Carisoprodol*) 350 Mg Tablet, 175 MG PO DAILY Y for MUSCLE SPASMS , TAB 12/01/16 Atorvastatin* (Atorvastatin*) 40 Mg Tablet, 40 MG PO QHS, #30 TAB 12/01/16 Aspirin* (Aspirin* EC) 81 Mg Tablet.dr, 81 MG PO QHS, TAB 12/01/16 Alprazolam* (Alprazolam*) 0.25 Mg Tablet, 0.25 MG PO QHS Y for ANXIETY, TAB 12/01/16 Allopurinol* (Allopurinol*) 100 Mg Tablet, 100 MG PO DAILY, TAB 12/01/16 Allergies Allergies: Coded Allergies: No Known Allergy (Unverified , 04/01/17) PT. WAS ON BICILLIN BEFORE, WAS TOLD BY THE DOCTOR THAT HE IS NOT ALLERGIC TO PCN. PMhx/Soc History of Surgery: Yes (BILATERAL HIP SURGERY, KNEE SX KL EFT LEG, CATARACT, ARM SURGERY, ) Anesthesia Reaction: No Hx Neurological Disorder: No Hx Respiratory Disorders: No Hx Psychiatric Problems: No Hx Miscellaneous Medical Probl: Yes (HTN, CHF, ESRD, DM. See EMR for additional history. ) Hx Alcohol Use: No Hx Substance Use: No Hx Tobacco Use: No Smoking Status: Never smoker Physical Exam Vitals Vital Signs Date Time Temp Pulse Resp B/P Pulse Ox O2 Delivery O2 Flow Rate FiO2 04/01/17 15:27 2.0 04/01/17 15:27 101 20 99 Nasal Cannula 2.0 04/01/17 13:50 104 18 04/01/17 12:36 102 20 142/100 98 04/01/17 09:00 Nasal Cannula 2 04/01/17 08:20 100.5 115 26 158/89 99 Physical Exam Const: [] Mild distress, facial sweating Head: Atraumatic Eyes: Normal Conjunctiva ENT: Normal External Ears, Nose and Mouth. Neck: Full range of motion..~ No meningismus., Mild JVD Resp: Decreased bibasilar breath sounds, mild left sided wheezing. Cardio: Regular rate and rhythm, no murmurs Abd: Soft, non tender, non distended. Normal bowel sounds Skin: No petechiae or rashes, mild diaphoresis Back: No midline or flank tenderness Ext: No cyanosis, or bilateral lower extremity edema. Neur: Awake and alert and oriented 3, no focal deficits Psych: Normal Mood and Affect Result Diagram: 04/01/17 0850 04/01/17 0850 Results 24 hrs Laboratory Tests Test 04/01/17 08:50 04/01/17 11:25 04/01/17 13:40 White Blood Count 6.910^3/ul Red Blood Count 3.1910^6/ul Hemoglobin 9.6g/dl Hematocrit 32.0% Mean Corpuscular Volume 100.3fl Mean Corpuscular Hemoglobin 30.1pg Mean Corpuscular Hemoglobin Concent 30.0g/dl Red Cell Distribution Width 21.5% Platelet Count 34889^3/UL Mean Platelet Volume 11.1fl Neutrophils % 84.3% Lymphocytes % 10.1% Monocytes % 4.5% Eosinophils % 0.1% Basophils % 0.1% Nucleated Red Blood Cells % 0.0/100WBC Neutrophils # 5.810^3/ul Lymphocytes # 0.710^3/ul Monocytes # 0.310^3/ul Eosinophils # 0.010^3/ul Basophils # 0.010^3/ul Nucleated Red Blood Cells # 0.010^3/ul Prothrombin Time 15.1Sec Prothrombin Time Ratio 1.2 INR International Normalized Ratio 1.18 Activated Partial Thromboplast Time 32.0Sec Sodium Level 142mmol/L Potassium Level 5.4mmol/L Chloride Level 99mmol/L Carbon Dioxide Level 20mmol/L Anion Gap 28 Blood Urea Nitrogen 88mg/dl Creatinine 9.03mg/dl Glucose Level 99mg/dl Lactic Acid Level 1.6mmol/L 1.1mmol/L 0.9mmol/L Calcium Level 10.4mg/dl Troponin I 0.280ng/ml 0.267ng/ml Current Medications Medications (Trade) Dose Ordered Sig/Leonardo Route PRN Reason Start Time Stop Time Status Last Admin Dose Admin Aspirin 325 mg 325 mg ONCE STAT PO 04/01/17 08:18 04/01/17 08:20 DC 04/01/17 09:50 Cefepime HCl (Maxipime 2gm/50 ml (Pmx)) 50 ml @ 100 mls/hr ONCE STAT IVPB 04/01/17 08:20 04/01/17 08:49 DC 04/01/17 09:50 Ondansetron HCl (Zofran Inj) 4 mg ER BRIDGE PRN IV NAUSEA AND/OR VOMITING 04/01/17 11:00 04/02/17 10:59 Acetaminophen 650 mg 650 mg ER BRIDGE PRN PO MILD PAIN/FEVER 04/01/17 11:00 04/02/17 10:59 Sodium Chloride 1,000 ml @ 1,000 mls/hr Q1H ONCE IV 04/01/17 11:00 04/01/17 11:59 DC 04/01/17 11:46 Sodium Chloride 1,000 ml @ 1,000 mls/hr Q1H ONCE IV 04/01/17 11:00 04/01/17 11:59 DC 04/01/17 11:00 Sodium Chloride (NS) 250 ml @ 250 mls/hr Q1H ONCE IV 04/01/17 11:00 04/01/17 11:59 DC 04/01/17 11:00 Allopurinol (Zyloprim) 100 mg DAILY PO 04/01/17 13:00 04/01/17 13:41 Alprazolam (Xanax) 0.25 mg QHS PRN PO ANXIETY 04/01/17 13:00 Aspirin (Halfprin) 81 mg QHS PO 04/01/17 21:00 Atorvastatin Calcium (Lipitor) 40 mg QHS PO 04/01/17 21:00 Carisoprodol (Soma) 175 mg DAILY PRN PO MUSCLE SPASMS 04/01/17 13:00 Clopidogrel Bisulfate (plaVIX) 75 mg QHS PO 04/01/17 21:00 Gabapentin (Neurontin) 100 mg QHS PO 04/01/17 21:00 Acetaminophen/ Hydrocodone Bitart ([place] (7.5-325)) 1 tab Q6 PRN PO SEVERE PAIN LEVEL 7-10 04/01/17 13:00 Losartan Potassium (Cozaar) 25 mg DAILY PO 04/01/17 13:00 04/01/17 13:41 Nitroglycerin (Nitroglycerin ([place])) 1 spray Q5M PRN TL CHEST PAIN 04/01/17 13:00 Pantoprazole (Protonix Tab) 40 mg BID@06,18 PO 04/01/17 18:00 Ranolazine (Ranexa) 500 mg Q12 PO 04/01/17 21:00 Ropinirole HCl (Requip) 0.5 mg TID PO 04/01/17 13:00 04/01/17 13:41 Sevelamer Carbonate (Renvela) 0.8 gm WITH MEALS PO 04/01/17 18:00 Zolpidem Tartrate (Ambien) 7.5 mg QHS PRN PO INSOMNIA 04/01/17 13:00 04/01/17 13:14 DC IV Flush (NS 3 ml) 3 ml PER PROTOCOL IV 04/01/17 13:00 Ondansetron HCl (Zofran Inj) 4 mg Q6H PRN IV NAUSEA AND/OR VOMITING 04/01/17 13:00 Heparin Sodium (Porcine) (Heparin (5000 Units/0.5 ml)) 5,000 unit Q12 SC 04/01/17 14:00 04/01/17 13:41 Acetaminophen (Tylenol Tab) 650 mg Q6H PRN PO PAIN LEVEL 1-3 OR FEVER 04/01/17 13:30 Docusate Sodium (Colace) 100 mg Q12H PRN PO CONSTIPATION 04/01/17 13:30 IV Flush (NS 3 ml) 3 ml PER PROTOCOL IV 04/01/17 13:30 04/01/17 13:30 DC Ondansetron HCl (Zofran Inj) 4 mg Q6H PRN IV NAUSEA AND/OR VOMITING 04/01/17 13:30 04/01/17 13:30 DC Zolpidem Tartrate (Ambien) 5 mg QHS PRN PO SLEEP 04/01/17 13:30 Albuterol (Proventil 0.083% (Neb)) 5 mg ONCE STAT HHN 04/01/17 14:54 04/01/17 14:56 DC 04/01/17 15:26 Ipratropium Epps (Atrovent 0.02% (Neb)) 0.5 mg ONCE ONCE HHN 04/01/17 15:00 04/01/17 15:01 DC 04/01/17 15:26 Procedures/MDM Sepsis without a clear source and 71 male was just discharged from the hospital. Patient is febrile and tachycardic. Mild lung wheezing treated with albuterol Atrovent breathing treatment he was treated with IV cefepime. He was administered 30 cc/kg of IV fluid. His very high BUN level and anticipate dialysis today. Mild hyperkalemia without EKG changes. This will be treated with dialysis. I spoke with Dr. Boyce will be admitted patient to telemetry. EKG interpretation: Sinus tachycardia rate of 127, left axis deviation, left bundle branch block, no ST or T-wave changes concerning for acute ischemia. equipment monitor phototypesetting interpretation: Persistent sinus tachycardia improved with fluid administration. Chest x-ray interpretation: I see no acute process. I see no infiltrate, no pneumothorax, no pulmonary edema, no fractures Critical care time 37 minutes: This includes treatment of sepsis and very careful fluid administration multiple physical exams in a dialysis patient with a history of fluid overload, chart reviewed, discussion with patient and admitting doctor. This does not include any billable procedures Departure Diagnosis: Primary Impression: Sepsis Additional Impressions: Generalized weakness Acute on chronic renal failure Condition: Serious SHREYAS CAMPA DO Apr 01, 2017 11:01
[2017-04-01] MEDS ORDERED: NITROGLYCERIN AEROSOL (4.9 GM) TL PRN (13:00)
[2017-04-01] MEDS ORDERED: NACL 0.9% 3 ML SYG IV SCH ×2 (13:00→13:30)
[2017-04-01] MEDS ORDERED: CARISOPRODOL 350 MG TAB PO PRN (13:00)
[2017-04-01] MEDS ORDERED: ZOLPIDEM 5 MG TAB PO PRN (13:00)
[2017-04-01] MEDS ORDERED: ALPRAZOLAM 0.25 MG TAB PO PRN (13:00)
[2017-04-01] MEDS ORDERED: HYDROCODONE/APAP (7.5/325) TAB PO PRN (13:00)
--- NOTE | 2017-04-01 13:26 | HP ---
DATE OF ADMISSION: 04/01/2017 IDENTIFYING DATA: The patient is a 71-year-old male admitted to the hospital with weakness and a lo w-grade fever. HISTORICAL EVENTS: Importantly, this patient was admitted to [facility] on 03/19/2017 and was discharged on 03/31/2017, when he presented to the [facility] via the ER with shortness of breath. His workup in the hospital revealed asthmatic bronchitis, requiring inhaled bronchodila tors, steroids and broad-spectrum antimicrobial therapy. At the time of discharge, he felt much imp roved and was to have his usually scheduled dialysis this morning. He states when attempting to get out of bed, he felt weak. His legs felt like putty and he was not able to stand and because of thi s, summoned the paramedics. Importantly, he had no substernal chest pain, radiating neck, arm or ja w discomfort. He had no fever, chills. Sensed a slight cough and minimal wheeze. He had no vomiti ng, nausea or abdominal pain. MEDICATIONS: Prior to admission include: 1. Allopurinol 100 mg per day. 2. Aspirin 81 mg per day. 3. Plavix 75 mg per day. 4. Ranexa 500 mg b.i.d. 5. Lipitor 40 mg per day. 6. Requip 0.5 t.i.d. 7. Nephro-Evelio 1 per day. 8. Renvela 3 tablets t.i.d. 9. Gabapentin 100 mg at bedtime. PAST MEDICAL HISTORY: Includes: 1. Having sustained a non-ST elevation PA in 11/2016 and underwent PCI and stenting of the distal r ight coronary artery. 2. Known ischemic cardiomyopathy with ejection fractions in the range of 30% to 35%. 3. Hyperlipidemia, on therapy. 4. Recurrent congestive heart failure. 5. End-stage renal disease, undergoing dialysis Thursday, Thursday and Thursday. 6. Hypertension. 7. History of GERD. 8. Undergoing a kidney transplant x2 with subsequent failure. 9. Restless leg syndrome. 10. Diabetes mellitus, diet controlled. ALLERGIES: NONE. FAMILY HISTORY: To be reviewed later. PHYSICAL EXAMINATION: GENERAL: A comfortable appearing male in no acute distress. VITAL SIGNS: Blood pressure 128/80, pulse 92, respirations are 20, he was afebrile. EYES: Extraocular muscles were full. NOSE, MOUTH, AND THROAT: Normal. NECK: Supple. There was jugular venous distention at 45 degrees. LUNGS: Reduced breath sounds, few dry rales without wheezes or rhonchi. HEART: Rhythm regular, I/ systolic murmur. No third sound. ABDOMEN: Nontender. Liver and spleen were not palpable. No masses or tenderness were noted. EXTREMITIES: No edema. NEUROLOGIC: No lateralizing weakness. Mental status: Oriented to person, place and time. IMPRESSION: 1. Leg weakness. I suspect this may be related to orthostatic hypotension as there is no evidence of any neurologic insult. 2. Chronic renal failure with need for dialysis today. 3. Elevated troponin merits followup cardiology evaluation. PLAN: Await cardiology evaluation. To proceed with dialysis. Resume his meds as he was taking jp or to admission. He will need physical therapy to assure he is strong enough to return home. Dictated By: ALONZO COLON/RAYA Conf#: [id number] DID#: [id number]
[2017-04-01] MEDS: LOSARTAN 25 MG TAB PO SCH (13:41)
[2017-04-01] MEDS: ALLOPURINOL 100 MG TAB PO SCH (13:41)
[2017-04-01] MEDS: ROPINIROLE 0.25 MG TAB PO SCH ×3 (13:41→20:50)
[2017-04-01] MEDS: HEPARIN 5,000 UNIT/0.5 ML VIAL SC SCH ×3 (13:41→20:50)
--- NOTE | 2017-04-01 13:43 | CONS ---
Date/Time of Note Date/Time of Note DATE: 04/01/17 TIME: 13:39 Assessment/Plan Assessment/Plan Additional Assessment/Plan ASSESSMENT: # Elevated troponin; small elevation, has chronic elevation of his troponin levels. No acute syx c/w ACS. Pt has chronic un-revascularizable territory ( LCx and D1). # ICM- LVEF 30-35% - GEOMAGNETICIAN-D candidate - outpt follow up for this # Acute on Chronic diastolic+systolic heart failure - fluid mgmt with iHD, limited fluid intake # Chronic renal failure on dialysis failed to prior transplants per history. # Hyperlipidemia. # CAD- s/p many previous PCI. 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 diffusely diseased small branch of D1. patent lad/Diag stents. distal RCA disease s/p PCI 11/2016 after FFR + # leg weakness - recheck troponin - will need aggressive risk factor modification with medical mgmt as no surgical /perc intervention possible. - aggressive lifestyle modification - con asa 81mg daily - cont plavix 75 mg daily - cont losartan - cont statin - cont dialysis per renal - tolerating low dose coreg - previous did not tolerate nitrate - consider BiV ICD placement as outpt, Consultation Date/Type/Reason Admit Date/Time Social History Smoking Status: Never smoker Exam/Review of Systems Vital Signs Vitals Vital Signs Date Time Temp Pulse Resp B/P Pulse Ox O2 Delivery O2 Flow Rate FiO2 04/01/17 12:36 102 20 142/100 98 04/01/17 09:00 Nasal Cannula 2 04/01/17 08:20 100.5 Results Result Diagram: 04/01/17 0850 04/01/17 0850 Results 24 hrs Laboratory Tests Test 04/01/17 08:50 04/01/17 11:25 White Blood Count 6.9 # Red Blood Count 3.19 L Hemoglobin 9.6 L Hematocrit 32.0 L Mean Corpuscular Volume 100.3 Mean Corpuscular Hemoglobin 30.1 Mean Corpuscular Hemoglobin Concent 30.0 L Red Cell Distribution Width 21.5 H Platelet Count 248 Mean Platelet Volume 11.1 H Neutrophils % 84.3 H Lymphocytes % 10.1 L Monocytes % 4.5 Eosinophils % 0.1 Basophils % 0.1 Nucleated Red Blood Cells % 0.0 Neutrophils # 5.8 Lymphocytes # 0.7 L Monocytes # 0.3 Eosinophils # 0.0 Basophils # 0.0 Nucleated Red Blood Cells # 0.0 Prothrombin Time 15.1 H Prothrombin Time Ratio 1.2 INR International Normalized Ratio 1.18 Activated Partial Thromboplast Time 32.0 Sodium Level 142 Potassium Level 5.4 H Chloride Level 99 Carbon Dioxide Level 20 L Anion Gap 28 H Blood Urea Nitrogen 88 H Creatinine 9.03 H Glucose Level 99 Lactic Acid Level 1.6 1.1 Calcium Level 10.4 H Troponin I 0.280 *H Medications Medications Current Medications Allopurinol (Zyloprim) 100 mg DAILY PO ; Start 04/01/17 at 13:00 Alprazolam (Xanax) 0.25 mg QHS PRN PO ANXIETY; Start 04/01/17 at 13:00 Aspirin (Halfprin) 81 mg QHS PO ; Start 04/01/17 at 21:00 Atorvastatin Calcium (Lipitor) 40 mg QHS PO ; Start 04/01/17 at 21:00 Carisoprodol (Soma) 175 mg DAILY PRN PO MUSCLE SPASMS; Start 04/01/17 at 13:00 Clopidogrel Bisulfate (plaVIX) 75 mg QHS PO ; Start 04/01/17 at 21:00 Gabapentin (Neurontin) 100 mg QHS PO ; Start 04/01/17 at 21:00 Acetaminophen/ Hydrocodone Bitart ([place] (7.5-325)) 1 tab Q6 PRN PO SEVERE PAIN LEVEL 7-10; Start 04/01/17 at 13:00 Losartan Potassium (Cozaar) 25 mg DAILY PO ; Start 04/01/17 at 13:00 Nitroglycerin (Nitroglycerin ([place])) 1 spray Q5M PRN TL CHEST PAIN; Start at 13:00 Pantoprazole (Protonix Tab) 40 mg BID@06,18 PO ; Start 04/01/17 at 18:00 Ranolazine (Ranexa) 500 mg Q12 PO ; Start 04/01/17 at 21:00 Ropinirole HCl (Requip) 0.5 mg TID PO ; Start 04/01/17 at 13:00 Ondansetron HCl (Zofran Inj) 4 mg Q6H PRN IV NAUSEA AND/OR VOMITING; Start at 13:00 Heparin Sodium (Porcine) (Heparin (5000 Units/0.5 ml)) 5,000 unit Q12 SC ; Start 04/01/17 at 14:00 Acetaminophen (Tylenol Tab) 650 mg Q6H PRN PO PAIN LEVEL 1-3 OR FEVER; Start at 13:30 Docusate Sodium (Colace) 100 mg Q12H PRN PO CONSTIPATION; Start 04/01/17 at 13: 30 Zolpidem Tartrate (Ambien) 5 mg QHS PRN PO SLEEP; Start 04/01/17 at 13:30 APRIL DINH MD Apr 01, 2017 13:43
[2017-04-01] MEDS ORDERED: ALBUTEROL 0.083% (NEB) 2.5 MG/3 ML AMP HHN STA (14:54)
[2017-04-01] MEDS ORDERED: IPRATROPIUM (NEB) 0.5 MG/2.5 ML AMP HHN ONE (15:00)
[2017-04-01] MEDS ORDERED: ALBUMIN HUMAN 25% 100 ML IV ONE (17:00)
[2017-04-01] MEDS: SEVELAMER CARBONATE 0.8 GM PKT PO SCH ×2 (17:55→18:19)
[2017-04-01] MEDS: PANTOPRAZOLE (EC) 40 MG TAB PO SCH (18:19)
[2017-04-01] MEDS: RANOLAZINE (SR) 500 MG TAB PO SCH ×2 (20:38→20:50)
[2017-04-01] MEDS: GABAPENTIN 100 MG CAP PO SCH ×2 (20:38→20:49)
[2017-04-01] MEDS: CLOPIDOGREL 75 MG TAB PO SCH ×2 (20:38→20:50)
[2017-04-01] MEDS: ASPIRIN (EC) 81 MG TAB PO SCH ×2 (20:38→20:49)
[2017-04-01] MEDS: ATORVASTATIN 40 MG TAB PO SCH ×2 (20:38→20:49)
[2017-04-02] VITALS (12 sets, daily range): BP systolic 97–132; BP diastolic 48–67; PULSE 88–124; RESP 15–22
[2017-04-02 01:03] LABS: CK-MB 1.8 ng/ml (0.0-2.4); TROPONIN-I 0.705 ng/ml (0.00-0.12)
[2017-04-02] MEDS: ALBUTEROL/IPRATROPIUM (NEB) 3 ML AMP HHN PRN (01:31)
[2017-04-02] MEDS: PANTOPRAZOLE (EC) 40 MG TAB PO SCH ×2 (05:22→17:45)
[2017-04-02 05:58] LABS: ADD SCAN DIFF NO
[2017-04-02 06:14] LABS: ABNORMAL IP MESSAGE 1; EOSINOPHILS % 0.3 % (0.0-7.0); HEMATOCRIT 27.9 % (42.0-52.0); LYMPHOCYTES # 1.3 10^3/ul (0.8-2.9); MEAN CORPUSCULAR HEMOGLOBIN 29.9 pg (29.0-33.0); MEAN CORPUSCULAR HGB CONC 28.7 g/dl (32.0-37.0); MEAN CORPUSCULAR VOLUME 104.1 fl (82.0-101.0); MEAN PLATELET VOLUME 10.1 fl (7.4-10.4); MONOCYTE # 0.2 10^3/ul (0.3-0.9); MONOCYTES % 3.8 % (0.0-11.0); NEUTROPHIL # 4.2 10^3/ul (1.6-7.5); NEUTROPHILS % 72.9 % (39.0-77.0); PLATELET COUNT 167 10^3/UL (140-415); RED BLOOD COUNT 2.68 10^6/ul (4.70-6.10); RED CELL DISTRIBUTION WIDTH 21.6 % (11.5-14.5); WHITE BLOOD COUNT 5.7 10^3/ul (4.8-10.8)
[2017-04-02 06:58] LABS: CALCIUM 9.8 mg/dl (8.4-10.2); CREATININE 5.99 mg/dl (0.61-1.24); PHOSPHORUS 5.2 mg/dl (2.5-4.9); POTASSIUM 4.5 mmol/L (3.5-5.1)
[2017-04-02] MEDS: SEVELAMER CARBONATE 0.8 GM PKT PO SCH (07:19)
[2017-04-02] MEDS ORDERED: SOD CHLORIDE 0.9% 250 ML IV ONE (08:00)
--- NOTE | 2017-04-02 08:00 | PN ---
Date/Time of Note Date/Time of Note DATE: 04/02/17 TIME: 07:57 Assessment/Plan VTE Prophylaxis VTE Prophylaxis Intervention: other Lines/Catheters IV Catheter Type (from Nrsg): Peripheral IV Assessment/Plan Assessment/Plan 1. Known ASHD, with inc troponin noted yesterday, will rev with cardiology. 2. Tachycardia, will also rev with cardiol re add beta heather, he is "dry" this am and this may be contrib, tsh orderd. 3. BP is low this am, will give bolus ns and not uf tomm if BP is low as chf has resolved. 4. Anemia noted, epogen added 5. Will ask PT to see with caution regarding orthostatic BP's 6. CKD, HD ordered tomm. Subjective 24 Hr Interval Summary Respiratory: cough (is mild and not productive), No shortness of breath Cardiovascular: other (He states he feels better--less weak and "shakey" when his systolic BP is >130), No chest pain Gastrointestinal: no complaints Genitourinary: no complaints Exam/Review of Systems Vital Signs Vitals Vital Signs Date Time Temp Pulse Resp B/P Pulse Ox O2 Delivery O2 Flow Rate FiO2 04/02/17 07:44 98.0 98 16 97/48 95 04/02/17 01:36 3.0 04/02/17 01:34 Nasal Cannula Intake and Output 04/01/17 04/01/17 04/02/17 15:00 23:00 07:00 Intake Total 300 ml 300 ml Output Total 3300 ml Balance -3000 ml 300 ml Exam Neck: No jvd Respiratory: clear to auscultation Cardiovascular: regular rate and rhythm Gastrointestinal: soft Extremities: No edema Results Result Diagram: 04/02/17 0550 04/02/17 0550 Results 24 hrs Laboratory Tests Test 04/01/17 08:50 04/01/17 11:25 04/01/17 13:40 04/01/17 23:22 White Blood Count 6.9 # Red Blood Count 3.19 L Hemoglobin 9.6 L Hematocrit 32.0 L Mean Corpuscular Volume 100.3 Mean Corpuscular Hemoglobin 30.1 Mean Corpuscular Hemoglobin Concent 30.0 L Red Cell Distribution Width 21.5 H Platelet Count 248 Mean Platelet Volume 11.1 H Neutrophils % 84.3 H Lymphocytes % 10.1 L Monocytes % 4.5 Eosinophils % 0.1 Basophils % 0.1 Nucleated Red Blood Cells % 0.0 Neutrophils # 5.8 Lymphocytes # 0.7 L Monocytes # 0.3 Eosinophils # 0.0 Basophils # 0.0 Nucleated Red Blood Cells # 0.0 Prothrombin Time 15.1 H Prothrombin Time Ratio 1.2 INR International Normalized Ratio 1.18 Activated Partial Thromboplast Time 32.0 Sodium Level 142 Potassium Level 5.4 H Chloride Level 99 Carbon Dioxide Level 20 L Anion Gap 28 H Blood Urea Nitrogen 88 H Creatinine 9.03 H Glucose Level 99 Lactic Acid Level 1.6 1.1 0.9 Calcium Level 10.4 H Troponin I 0.280 *H 0.267 *H 0.705 *H Creatine Kinase 25 Creatine Kinase Index 7.2 Creatinine Kinase MB (Mass) 1.80 Test 04/02/17 05:50 White Blood Count 5.7 Red Blood Count 2.68 L Hemoglobin 8.0 L Hematocrit 27.9 L Mean Corpuscular Volume 104.1 H Mean Corpuscular Hemoglobin 29.9 Mean Corpuscular Hemoglobin Concent 28.7 L Red Cell Distribution Width 21.6 H Platelet Count 167 # Mean Platelet Volume 10.1 Neutrophils % 72.9 Lymphocytes % 22.0 Monocytes % 3.8 Eosinophils % 0.3 Basophils % 0.0 Nucleated Red Blood Cells % 0.0 Neutrophils # 4.2 Lymphocytes # 1.3 Monocytes # 0.2 L Eosinophils # 0.0 Basophils # 0.0 Nucleated Red Blood Cells # 0.0 Sodium Level 141 Potassium Level 4.5 Chloride Level 100 Carbon Dioxide Level 25 Anion Gap 21 #H Blood Urea Nitrogen 54 #H Creatinine 5.99 #H Glucose Level 132 Calcium Level 9.8 Phosphorus Level 5.2 H Medications Medications Current Medications Allopurinol (Zyloprim) 100 mg DAILY PO Last administered on 04/01/17t 13:41; Admin Dose 100 MG; Start 04/01/17 at 13:00 Alprazolam (Xanax) 0.25 mg QHS PRN PO ANXIETY; Start 04/01/17 at 13:00 Aspirin (Halfprin) 81 mg QHS PO ; Start 04/01/17 at 21:00 Atorvastatin Calcium (Lipitor) 40 mg QHS PO ; Start 04/01/17 at 21:00 Carisoprodol (Soma) 175 mg DAILY PRN PO MUSCLE SPASMS; Start 04/01/17 at 13:00 Clopidogrel Bisulfate (plaVIX) 75 mg QHS PO ; Start 04/01/17 at 21:00 Gabapentin (Neurontin) 100 mg QHS PO ; Start 04/01/17 at 21:00 Acetaminophen/ Hydrocodone Bitart ([place] (7.5-325)) 1 tab Q6 PRN PO SEVERE PAIN LEVEL 7-10; Start 04/01/17 at 13:00 Losartan Potassium (Cozaar) 25 mg DAILY PO Last administered on 04/01/17 13:41 ; Admin Dose 25 MG; Start 04/01/17 at 13:00 Nitroglycerin (Nitroglycerin ([place])) 1 spray Q5M PRN TL CHEST PAIN; Start at 13:00 Pantoprazole (Protonix Tab) 40 mg BID@06,18 PO Last administered on 04/02/17 05:22; Admin Dose 40 MG; Start 04/01/17 at 18:00 Ranolazine (Ranexa) 500 mg Q12 PO ; Start 04/01/17 at 21:00 Ropinirole HCl (Requip) 0.5 mg TID PO ; Start 04/01/17 at 13:00 Ondansetron HCl (Zofran Inj) 4 mg Q6H PRN IV NAUSEA AND/OR VOMITING; Start at 13:00 Heparin Sodium (Porcine) (Heparin (5000 Units/0.5 ml)) 5,000 unit Q12 SC Last administered on 04/01/17 13:41; Admin Dose 5,000 UNIT; Start 04/01/17 at 14:00 Acetaminophen (Tylenol Tab) 650 mg Q6H PRN PO PAIN LEVEL 1-3 OR FEVER Last administered on 04/01/17 23:52; Admin Dose 650 MG; Start 04/01/17 at 13:30 Docusate Sodium (Colace) 100 mg Q12H PRN PO CONSTIPATION; Start 04/01/17 at 13: 30 Zolpidem Tartrate 5 mg 5 mg QHS PRN PO SLEEP; Start 04/01/17 at 13:30 Sodium Chloride (NS) 250 ml @ 250 mls/hr Q1H ONCE IV ; Start 04/02/17 at 08:00 ; Stop 04/02/17 at 08:59; Status UNV Carvedilol (Coreg) 3.125 mg BID PO ; Start 04/02/17 at 09:00; Status UNV Epoetin L[place] (Epogen ([place]rd)) 10,000 units MoWeFr@17 SC ; Start 04/03/17 at 17:00 ; Status UNV ALONZO SERRA MD Apr 02, 2017 08:00
[2017-04-02] MEDS: SEVELAMER 800 MG TAB PO SCH ×3 (08:20→17:45)
[2017-04-02] MEDS: ALLOPURINOL 100 MG TAB PO SCH (08:21)
[2017-04-02] MEDS: ROPINIROLE 0.25 MG TAB PO SCH ×3 (08:21→21:06)
[2017-04-02] MEDS: RANOLAZINE (SR) 500 MG TAB PO SCH ×2 (08:21→21:06)
[2017-04-02] MEDS: LOSARTAN 25 MG TAB PO SCH (08:26)
[2017-04-02] MEDS: HEPARIN 5,000 UNIT/0.5 ML VIAL SC SCH ×2 (08:27→21:00)
--- NOTE | 2017-04-02 09:30 | PN ---
Date/Time of Note Date/Time of Note DATE: 04/02/17 TIME: 09:23 SUBJECTIVE: Patient feeling weak was just discharged 2 days ago and readmitted with severe weakness. States that his cough is improved denies any chest pains severe dyspnea or palpitations. Patient was eating potato chips this morning. Chart, laboratory studies, and medications reviewed. ROS: Patient denied any fevers, chills, weight loss, nausea, vomiting, diarrhea, constipation, cough, hemoptysis, dysuria, hematuria, nocturia, any neurologic symptoms, headache, any chest pains, dyspnea, PND, orthopnea, leg edema, or palpitations. 14 point review of systems otherwise normal. Complaining of profound weakness. OBJECTIVE: Vital signs please see chart. HEENT; no JVD, no HJR, carotids 2 over 4+ without bruits. Chest: Clear to auscultation and percussion, no rales, wheezes or rhonchi. Cardiac: S4, S1, S2 with paradoxical physiologic splitting, 1/6 systolic ejection murmur, no rub click or diastolic murmur noted. Abdominal: Bowel sounds positive, soft nontender, no abdominal bruit noted, no hepatosplenomegaly. Extremities: No cyanosis, clubbing, or edema. Negative Homans sign or palpable cords. Pulses: 2/4 pulses diffusely no bruits noted. LABORATORY STUDIES; White count 5.7, hemoglobin 8, hematocrit 27.9, platelets 167, electrolytes normal BUN 54 creatinine 5.99, phosphate 5.2, troponin up to 0.705 last admission chronically elevated with peak at 0.246. EKG yesterday revealed sinus tachycardia 125 beats a minute left bundle branch block left axis deviation. Chest x-ray revealed cardiomegaly, possible mild interstitial edema. Telemetry revealed left bundle branch block sinus rhythm to sinus tachycardia no ectopy per patient monitor. ASSESSMENT: 1. History of acute on chronic systolic and diastolic heart failure last ejection fraction 30-35% on echocardiogram. 2. Ischemic cardiomyopathy multiple coronary interventions of left main left anterior descending artery right coronary artery last intervention distal right coronary artery 12/05 stented, chronically occluded circumflex and diffusely diseased diagonal. 3. Multiple admissions with pulmonary edema and hypertension. 4. Hypertension. Patient now with hypotension 5. Gout. 6. History of intermittent left bundle branch block. 7. Hyperlipidemia. 8. 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 9. Asthmatic bronchitis-improved, patient hospitalized last admission. 10. Minimal troponin elevation flat profile, multiple admissions. 11. Patient is a candidate for possible biventricular AICD device once stable from an infectious disease standpoint and recuperates from current illness. 12. Chronic anemia-normocytic on Epogen. Patient stable from a cardiac standpoint at present not in heart failure, chronically elevated troponin in setting of systolic ischemic cardiomyopathy and heart failure. Not a candidate for further intervention at this point with chronically occluded circumflex and diagonal. Will monitor troponins and EKG, will try low-dose carvedilol. Currently receiving low-dose fluid bolus. Once patient stabilized and discharged and is without any evidence of infection will be evaluated for possible AICD biventricular device. PLAN: 1. Continue current therapy dialysis tomorrow, continue aspirin and Plavix indefinitely, carvedilol, Ranexa. 2. Follow-up with Dr. Arroyo as outpatient for evaluation once current infection clears for AICD biventricular pacer device and patient with ischemic cardiomyopathy low ejection fraction and left bundle branch block pattern. 3. Agree with gentle fluid hydration. 4. Follow EKG and troponins. KAMRYN AYALA MD Apr 02, 2017 09:30
[2017-04-02] MEDS: ATORVASTATIN 40 MG TAB PO SCH (21:06)
[2017-04-02] MEDS: CLOPIDOGREL 75 MG TAB PO SCH (21:06)
[2017-04-02] MEDS: ASPIRIN (EC) 81 MG TAB PO SCH (21:06)
[2017-04-02] MEDS: GABAPENTIN 100 MG CAP PO SCH (21:06)
[2017-04-02] MEDS: ZOLPIDEM 5 MG TAB PO PRN (21:12)
[2017-04-02] MEDS: DOCUSATE SODIUM 100 MG CAP PO PRN (21:12)
[2017-04-03] VITALS (23 sets, daily range): BP systolic 107–144; BP diastolic 48–77; PULSE 72–100; RESP 15–20
[2017-04-03] MEDS: PANTOPRAZOLE (EC) 40 MG TAB PO SCH ×2 (06:00→17:55)
[2017-04-03] MEDS: HEPARIN 5,000 UNIT/0.5 ML VIAL SC SCH ×2 (08:39→20:36)
[2017-04-03] MEDS: SEVELAMER 800 MG TAB PO SCH ×3 (08:44→17:55)
[2017-04-03] MEDS: RANOLAZINE (SR) 500 MG TAB PO SCH ×2 (08:44→20:33)
[2017-04-03] MEDS: ALLOPURINOL 100 MG TAB PO SCH (08:44)
[2017-04-03] MEDS: ROPINIROLE 0.25 MG TAB PO SCH ×3 (08:44→20:33)
[2017-04-03] MEDS: LOSARTAN 25 MG TAB PO SCH (08:45)
--- NOTE | 2017-04-03 10:57 | PN ---
Date/Time of Note Date/Time of Note DATE: 04/03/17 TIME: 10:54 SUBJECTIVE: Patient feeling slightly stronger this morning refused all blood work. is present in the room. Chart, laboratory studies, and medications reviewed. ROS: Patient denied any fevers, chills, weight loss, nausea, vomiting, diarrhea, constipation, cough, hemoptysis, dysuria, hematuria, nocturia, any neurologic symptoms, headache, any chest pains, dyspnea, PND, orthopnea, leg edema, or palpitations. 14 point review of systems otherwise normal. Complaining of continued but slightly improved weakness. OBJECTIVE: Vital signs please see chart. HEENT; no JVD, no HJR, carotids 2 over 4+ without bruits. Chest: Clear to auscultation and percussion, no rales, wheezes or rhonchi. Cardiac: S4, S1, S2 with paradoxical physiologic splitting, 1/6 systolic ejection murmur, no rub click or diastolic murmur noted. Abdominal: Bowel sounds positive, soft nontender, no abdominal bruit noted, no hepatosplenomegaly. Extremities: No cyanosis, clubbing, or edema. Negative Homans sign or palpable cords. Pulses: 2/4 pulses diffusely no bruits noted. LABORATORY STUDIES; Telemetry revealed sinus rhythm in the 70s-80s with bundle branch block no ectopy. Patient refused blood work. ASSESSMENT: 1. History of acute on chronic systolic and diastolic heart failure last ejection fraction 30-35% on echocardiogram. 2. Ischemic cardiomyopathy multiple coronary interventions of left main left anterior descending artery right coronary artery last intervention distal right coronary artery 12/05 stented, chronically occluded circumflex and diffusely diseased diagonal. 3. Multiple admissions with pulmonary edema and hypertension. 4. Hypertension. Patient now with hypotension, currently improved 5. Gout. 6. History of intermittent left bundle branch block. 7. Hyperlipidemia. 8. 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 9. Asthmatic bronchitis-improved, patient hospitalized last admission. 10. Minimal troponin elevation flat profile, multiple admissions. Patient refuses further blood draws for troponin. 11. Patient is a candidate for possible biventricular AICD device once stable from an infectious disease standpoint and recuperates from current illness. 12. Chronic anemia-normocytic on Epogen. Patient stable from a cardiac standpoint at present not in heart failure, chronically elevated troponin in setting of systolic ischemic cardiomyopathy and heart failure. I tried to explain to the patient that her blood pressure now 120 is optimal in the setting of a cardiomyopathy and higher blood pressure would possibly lead to congestive heart failure which he has had on multiple occasions. Would continue low-dose carvedilol, Ranexa, aspirin and Plavix and statin. As previously mentioned when stable will evaluate as an outpatient for possible AICD biventricular device. Discussed with patient and his . We will be available as needed for any further cardiac issues. PLAN: 1. Continue current therapy patient refused blood draw. 2. Consider slightly higher dry weight. 3. Blood pressure currently is optimally controlled. 4. We will be available as needed for any further cardiac issues. KAMRYN AYALA MD Apr 03, 2017 10:57
--- NOTE | 2017-04-03 14:19 | PN ---
Date/Time of Note Date/Time of Note DATE: 04/03/17 TIME: 14:08 Assessment/Plan VTE Prophylaxis VTE Prophylaxis Intervention: ambulation Lines/Catheters [facility] Saline Lock Urinary Cath still in place: No Assessment/Plan Chief Complaint/Hosp Course 1. End-stage renal disease on maintenance hemodialysis. He is scheduled for hemodialysis treatment today. 2. Assess weight, try to determine dry weight. 3. Generalized weakness and difficulty walking rule out postural hypotension, orthostatic vital signs 4. Ischemic cardiomyopathy with history of systolic and diastolic heart failure 5. Previous history of hypertension now with episodes of hypotension. Problems: Subjective 24 Hr Interval Summary Free Text/Dictation Patient says that he is feeling weak especially when he stands up to walk. He says that his blood pressure has been low. He is scheduled for hemodialysis treatment today. Respiratory: shortness of breath Cardiovascular: no complaints Gastrointestinal: no complaints Exam/Review of Systems Vital Signs Vitals Vital Signs Date Time Temp Pulse Resp B/P Pulse Ox O2 Delivery O2 Flow Rate FiO2 04/03/17 14:04 72 111/53 95 Nasal Cannula 3.0 04/03/17 11:44 97.9 18 Intake and Output 04/02/17 04/02/17 04/03/17 15:00 23:00 07:00 Intake Total 800 ml 400 ml Balance 800 ml 400 ml Exam Constitutional: alert, frail, oriented Neck: supple Respiratory: clear to auscultation Cardiovascular: regular rate and rhythm Gastrointestinal: soft Musculoskeletal: nl extremities to inspection Results Result Diagram: 04/02/17 0550 04/02/17 0550 Medications Medications Current Medications Allopurinol (Zyloprim) 100 mg DAILY PO Last administered on 04/03/17 08:44; Admin Dose 100 MG; Start 04/01/17 at 13:00 Alprazolam (Xanax) 0.25 mg QHS PRN PO ANXIETY; Start 04/01/17 at 13:00 Aspirin (Halfprin) 81 mg QHS PO Last administered on 04/02/17 21:06; Admin Dose 81 MG; Start 04/01/17 at 21:00 Atorvastatin Calcium (Lipitor) 40 mg QHS PO Last administered on 04/02/17 21: 06; Admin Dose 40 MG; Start 04/01/17 at 21:00 Carisoprodol (Soma) 175 mg DAILY PRN PO MUSCLE SPASMS; Start 04/01/17 at 13:00 Clopidogrel Bisulfate (plaVIX) 75 mg QHS PO Last administered on 04/02/17 21: 06; Admin Dose 75 MG; Start 04/01/17 at 21:00 Gabapentin (Neurontin) 100 mg QHS PO Last administered on 04/02/17 21:06; Admin Dose 100 MG; Start 04/01/17 at 21:00 Acetaminophen/ Hydrocodone Bitart ([place] (7.5-325)) 1 tab Q6 PRN PO SEVERE PAIN LEVEL 7-10; Start 04/01/17 at 13:00 Losartan Potassium (Cozaar) 25 mg DAILY PO Last administered on 04/01/17 13:41 ; Admin Dose 25 MG; Start 04/01/17 at 13:00 Nitroglycerin (Nitroglycerin ([place])) 1 spray Q5M PRN TL CHEST PAIN; Start at 13:00 Pantoprazole (Protonix Tab) 40 mg BID@,18 PO Last administered on 04/03/17 06:00; Admin Dose 40 MG; Start 04/01/17 at 18:00 Ranolazine (Ranexa) 500 mg Q12 PO Last administered on 04/03/17 08:44; Admin Dose 500 MG; Start 04/01/17 at 21:00 Ropinirole HCl (Requip) 0.5 mg TID PO Last administered on 04/03/17 12:19; Admin Dose 0.5 MG; Start 04/01/17 at 13:00 Ondansetron HCl (Zofran Inj) 4 mg Q6H PRN IV NAUSEA AND/OR VOMITING; Start at 13:00 Heparin Sodium (Porcine) (Heparin (5000 Units/0.5 ml)) 5,000 unit Q12 SC Last administered on 04/01/17 13:41; Admin Dose 5,000 UNIT; Start 04/01/17 at 14:00 Acetaminophen (Tylenol Tab) 650 mg Q6H PRN PO PAIN LEVEL 1-3 OR FEVER Last administered on 04/01/17 23:52; Admin Dose 650 MG; Start 04/01/17 at 13:30 Docusate Sodium (Colace) 100 mg Q12H PRN PO CONSTIPATION Last administered on 21:12; Admin Dose 100 MG; Start 04/01/17 at 13:30 Zolpidem Tartrate (Ambien) 5 mg QHS PRN PO SLEEP Last administered on 21:12; Admin Dose 5 MG; Start 04/01/17 at 13:30 Epoetin Lyle (Epogen (Esrd)) 10,000 units MoWeFr@17 SC ; Start 04/03/17 at 17:00 Carvedilol (Coreg) 1.56 mg BID PO ; Start 04/02/17 at 11:00 RIMMA WEI MD Apr 03, 2017 14:19
--- NOTE | 2017-04-03 14:33 | RADRPT ---
Vent Rate: 96 bpm RR Interval: 0 msec [place] Interval: 164 msec QRS Duration: 180 msec QT Interval: 414 msec QTC Interval: 523 msec P-R-T [place]: 74 - -31 - 111 degrees Sinus rhythm with occasional premature ventricular complexes Left axis deviation Left bundle branch block Abnormal ECG Electronically Signed By: Gian Carrillo [id number]
[2017-04-03] MEDS ORDERED: ALBUMIN HUMAN 25% 100 ML IV ONE (15:00)
[2017-04-03 15:38] LABS: ADD SCAN DIFF NO
[2017-04-03 15:41] LABS: EOSINOPHILS # 0.1 10^3/ul (0.0-0.5); EOSINOPHILS % 2.4 % (0.0-7.0); HEMATOCRIT 25.2 % (42.0-52.0); HEMOGLOBIN 7.9 g/dl (14.0-18.0); LYMPHOCYTES # 0.8 10^3/ul (0.8-2.9); LYMPHOCYTES % 14.9 % (15.0-51.0); MEAN CORPUSCULAR HEMOGLOBIN 30.6 pg (29.0-33.0); MEAN CORPUSCULAR HGB CONC 31.3 g/dl (32.0-37.0); MEAN CORPUSCULAR VOLUME 97.7 fl (82.0-101.0); MEAN PLATELET VOLUME 9.9 fl (7.4-10.4); MONOCYTE # 0.1 10^3/ul (0.3-0.9); MONOCYTES % 2.8 % (0.0-11.0); NEUTROPHILS % 79.5 % (39.0-77.0); PLATELET COUNT 145 10^3/UL (140-415); RED BLOOD COUNT 2.58 10^6/ul (4.70-6.10); RED CELL DISTRIBUTION WIDTH 21.1 % (11.5-14.5)
[2017-04-03 15:58] LABS: ALBUMIN 4.3 g/dl (3.3-4.9)
[2017-04-03] MEDS: EPOETIN 10000 UNITS/1 ML INJ (ESRD) SC SCH (17:55)
[2017-04-03] MEDS: ASPIRIN (EC) 81 MG TAB PO SCH (20:33)
[2017-04-03] MEDS: ATORVASTATIN 40 MG TAB PO SCH (20:33)
[2017-04-03] MEDS: ZOLPIDEM 5 MG TAB PO PRN (20:33)
[2017-04-03] MEDS: CLOPIDOGREL 75 MG TAB PO SCH (20:34)
[2017-04-03] MEDS: GABAPENTIN 100 MG CAP PO SCH (20:36)
[2017-04-03 20:54] LABS: CALCIUM 9.6 mg/dl (8.4-10.2); CREATININE 4.36 mg/dl (0.61-1.24); PHOSPHORUS 3.6 mg/dl (2.5-4.9); POTASSIUM 3.7 mmol/L (3.5-5.1)
[2017-04-03 21:23] LABS: THYROID STIMULATING HORMONE 1.19 MIU/L (0.465-4.680)
[2017-04-04] VITALS (9 sets, daily range): BP systolic 117–147; BP diastolic 56–73; PULSE 82–98; RESP 16–20
[2017-04-04] MEDS: ROPINIROLE 0.25 MG TAB PO SCH ×3 (05:36→20:31)
[2017-04-04] MEDS: PANTOPRAZOLE (EC) 40 MG TAB PO SCH ×2 (06:02→17:38)
[2017-04-04] MEDS: RANOLAZINE (SR) 500 MG TAB PO SCH ×2 (08:47→20:31)
[2017-04-04] MEDS: SEVELAMER 800 MG TAB PO SCH ×3 (08:47→17:38)
[2017-04-04] MEDS: LOSARTAN 25 MG TAB PO SCH (08:48)
[2017-04-04] MEDS: ALLOPURINOL 100 MG TAB PO SCH (08:48)
[2017-04-04] MEDS: HEPARIN 5,000 UNIT/0.5 ML VIAL SC SCH ×2 (08:49→21:00)
[2017-04-04] MEDS: ALBUTEROL/IPRATROPIUM (NEB) 3 ML AMP HHN PRN ×3 (10:32→23:20)
--- NOTE | 2017-04-04 13:41 | CONS ---
Date/Time of Note Date/Time of Note DATE: 04/04/17 TIME: 13:36 Assessment/Plan Assessment/Plan Additional Assessment/Plan ASSESSMENT: # Elevated troponin; Pt with probable NSTEMI as troponin peaked at 2.8 however this am down to 2.1 Pt has chronic un-revascularizable territory (LCx and D1). WIll defer to Dr Perez if any utility in repeat angiography IF pt has ongoing objective signs or ischemia or CP. # Low BP- pt complains of low BP even in the 120s and is not taking his meds for this reason. He may benefit from low dose midodrine incase has orthostatic changes and hopefully this will allow him to take his BB/ARB. # ICM- LVEF 30-35% - [employer]-D candidate - outpt follow up for this # Acute on Chronic diastolic+systolic heart failure - fluid mgmt with iHD, limited fluid intake # Chronic renal failure on dialysis failed to prior transplants per history. # Hyperlipidemia. # CAD- s/p many previous PCI. known BUTT SAWYER ostial LCx with L/R-L collaterals. diffusely diseased small branch of D1. patent lad/Diag stents. distal RCA disease s/p PCI 11/2016 after FFR + # leg weakness - trial of Bisoprolol instead of Coreg - trial of low dose midodrine given pt's ongoing complaints of hypotension syx and refusal of cardiac meds. - aggressive lifestyle modification - con asa 81mg daily - cont plavix 75 mg daily - cont losartan - cont statin - cont dialysis per renal - previously did not tolerate nitrate - consider BiV ICD placement as outpt, Consultation Date/Type/Reason Admit Date/Time Apr 01, 2017 at 10:55 Initial Consult Date Type of Consultation: Cardiology 24 HR Interval Summary Free Text/Dictation Pt states that he feels very bad when his BP is low even in the low 120s. He refuses most beds due to this. He has no CP now but possibly some chest discomfort earlier in the am. Exam/Review of Systems Vital Signs Vitals Vital Signs Date Time Temp Pulse Resp B/P Pulse Ox O2 Delivery O2 Flow Rate FiO2 04/04/17 12:06 92 04/04/17 11:42 4.0 04/04/17 11:20 97.9 19 118/59 100 04/04/17 10:35 Nasal Cannula Intake and Output 604/03/17 04/04/17 15:00 23:00 07:00 Intake Total 1310 ml 500 ml Output Total 2000 ml Balance -690 ml 500 ml Exam Constitutional: alert, oriented, well developed Psych: depression, no complaints Head: normocephalic Eyes: nl conjunctiva ENMT: nl external ears & nose Neck: supple Respiratory: clear to auscultation, normal air movement Cardiovascular: nl pulses, regular rate and rhythm, No S3 Gastrointestinal: non-tender, soft Musculoskeletal: nl extremities to inspection Skin: nl turgor Results Result Diagram: 04/03/175 04/03/172019 Results 24 hrs Laboratory Tests Test 04/03/17 15:35 04/03/17 20:20 04/04/17 10:45 White Blood Count 5.0 Red Blood Count 2.58 L Hemoglobin 7.9 L Hematocrit 25.2 L Mean Corpuscular Volume 97.7 Mean Corpuscular Hemoglobin 30.6 Mean Corpuscular Hemoglobin Concent 31.3 L Red Cell Distribution Width 21.1 H Platelet Count 145 Mean Platelet Volume 9.9 Neutrophils % 79.5 H Lymphocytes % 14.9 L Monocytes % 2.8 Eosinophils % 2.4 Basophils % 0.0 Nucleated Red Blood Cells % 0.0 Neutrophils # 4.0 Lymphocytes # 0.8 Monocytes # 0.1 L Eosinophils # 0.1 Basophils # 0.0 Nucleated Red Blood Cells # 0.0 Total Bilirubin 0.0 L Direct Bilirubin 0.00 Indirect Bilirubin 0.0 Aspartate Amino Transf (AST/SGOT) 25 Alanine Aminotransferase (ALT/SGPT) 34 Alkaline Phosphatase 77 Troponin I 2.800 *H 2.140 *H Total Protein 5.0 L Albumin 4.3 Sodium Level 142 Potassium Level 3.7 Chloride Level 100 Carbon Dioxide Level 27 Anion Gap 19 H Blood Urea Nitrogen 32 #H Creatinine 4.36 #H Glucose Level 107 Calcium Level 9.6 Phosphorus Level 3.6 Magnesium Level 2.0 B-Type Natriuretic Peptide 550067 H Thyroid Stimulating Hormone (TSH) 1.190 Medications Medications Current Medications Allopurinol (Zyloprim) 100 mg DAILY PO Last administered on 04/04/17t 08:48; Admin Dose 100 MG; Start 04/01/17 at 13:00 Alprazolam (Xanax) 0.25 mg QHS PRN PO ANXIETY; Start 04/01/17 at 13:00 Aspirin (Halfprin) 81 mg QHS PO Last administered on 04/03/17 20:33; Admin Dose 81 MG; Start 04/01/17 at 21:00 Atorvastatin Calcium (Lipitor) 40 mg QHS PO Last administered on 04/03/17 20: 33; Admin Dose 40 MG; Start 04/01/17 at 21:00 Carisoprodol (Soma) 175 mg DAILY PRN PO MUSCLE SPASMS; Start 04/01/17 at 13:00 Clopidogrel Bisulfate (plaVIX) 75 mg QHS PO Last administered on 04/03/17 20: 34; Admin Dose 75 MG; Start 04/01/17 at 21:00 Gabapentin (Neurontin) 100 mg QHS PO Last administered on 04/02/17 21:06; Admin Dose 100 MG; Start 04/01/17 at 21:00 Acetaminophen/ Hydrocodone Bitart ([place] (7.5-325)) 1 tab Q6 PRN PO SEVERE PAIN LEVEL 7-10; Start 04/01/17 at 13:00 Losartan Potassium (Cozaar) 25 mg DAILY PO Last administered on 04/01/17 13:41 ; Admin Dose 25 MG; Start 04/01/17 at 13:00 Nitroglycerin (Nitroglycerin ([place])) 1 spray Q5M PRN TL CHEST PAIN Last administered on 04/04/17 02:50; Admin Dose 1 SPRAY; Start 04/01/17 at 13:00 Pantoprazole (Protonix Tab) 40 mg BID@06,18 PO Last administered on 04/04/17 06:02; Admin Dose 40 MG; Start 04/01/17 at 18:00 Ranolazine (Ranexa) 500 mg Q12 PO Last administered on 04/04/17 08:47; Admin Dose 500 MG; Start 04/01/17 at 21:00 Ropinirole HCl (Requip) 0.5 mg TID PO Last administered on 04/04/17 12:31; Admin Dose 0.5 MG; Start 04/01/17 at 13:00 Ondansetron HCl (Zofran Inj) 4 mg Q6H PRN IV NAUSEA AND/OR VOMITING; Start at 13:00 Heparin Sodium (Porcine) (Heparin (5000 Units/0.5 ml)) 5,000 unit Q12 SC Last administered on 04/01/17 13:41; Admin Dose 5,000 UNIT; Start 04/01/17 at 14:00 Acetaminophen (Tylenol Tab) 650 mg Q6H PRN PO PAIN LEVEL 1-3 OR FEVER Last administered on 04/01/17 23:52; Admin Dose 650 MG; Start 04/01/17 at 13:30 Docusate Sodium (Colace) 100 mg Q12H PRN PO CONSTIPATION Last administered on 21:12; Admin Dose 100 MG; Start 04/01/17 at 13:30 Zolpidem Tartrate (Ambien) 5 mg QHS PRN PO SLEEP Last administered on 20:33; Admin Dose 5 MG; Start 04/01/17 at 13:30 Epoetin Lyle (Epogen (Esrd)) 10,000 units MoWeFr@17 SC Last administered on 17:55; Admin Dose 10,000 UNITS; Start 04/03/17 at 17:00 Carvedilol (Coreg) 1.56 mg BID PO ; Start 04/02/17 at 11:00 APRIL DINH MD Apr 04, 2017 13:41
[2017-04-04] MEDS ORDERED: MIDODRINE 2.5 MG TAB PO ONE (14:00)
--- NOTE | 2017-04-04 15:31 | PN ---
Date/Time of Note Date/Time of Note DATE: 04/04/17 TIME: 15:29 Assessment/Plan VTE Prophylaxis VTE Prophylaxis Intervention: ambulation Lines/Catheters [facility] Saline Lock Urinary Cath still in place: No Assessment/Plan Chief Complaint/Hosp Course 1. End-stage renal disease on maintenance hemodialysis. HD done yesterday, next in 2 days 2. Assess weight, try to determine dry weight. 3. Generalized weakness and difficulty walking rule out postural hypotension. On Midodrine 4. Ischemic cardiomyopathy with history of systolic and diastolic heart failure 5. Previous history of hypertension now with episodes of hypotension. Problems: Subjective 24 Hr Interval Summary Free Text/Dictation Alert, complains of constipation Exam/Review of Systems Vital Signs Vitals Vital Signs Date Time Temp Pulse Resp B/P Pulse Ox O2 Delivery O2 Flow Rate FiO2 04/04/17 12:06 92 04/04/17 11:42 4.0 04/04/17 11:20 97.9 19 118/59 100 04/04/17 10:35 Nasal Cannula Intake and Output 04/03/17 04/03/17 04/04/17 15:00 23:00 07:00 Intake Total 1310 ml 500 ml Output Total 2000 ml Balance -690 ml 500 ml Exam Constitutional: alert, oriented Neck: No jvd Respiratory: clear to auscultation Cardiovascular: regular rate and rhythm Extremities: No edema Results Result Diagram: 04/03/17 1535 04/03/172019 Results 24 hrs Laboratory Tests Test 04/03/17 15:35 04/03/17 20:20 04/04/17 10:45 White Blood Count 5.0 Red Blood Count 2.58 L Hemoglobin 7.9 L Hematocrit 25.2 L Mean Corpuscular Volume 97.7 Mean Corpuscular Hemoglobin 30.6 Mean Corpuscular Hemoglobin Concent 31.3 L Red Cell Distribution Width 21.1 H Platelet Count 145 Mean Platelet Volume 9.9 Neutrophils % 79.5 H Lymphocytes % 14.9 L Monocytes % 2.8 Eosinophils % 2.4 Basophils % 0.0 Nucleated Red Blood Cells % 0.0 Neutrophils # 4.0 Lymphocytes # 0.8 Monocytes # 0.1 L Eosinophils # 0.1 Basophils # 0.0 Nucleated Red Blood Cells # 0.0 Total Bilirubin 0.0 L Direct Bilirubin 0.00 Indirect Bilirubin 0.0 Aspartate Amino Transf (AST/SGOT) 25 Alanine Aminotransferase (ALT/SGPT) 34 Alkaline Phosphatase 77 Troponin I 2.800 *H 2.140 *H Total Protein 5.0 L Albumin 4.3 Sodium Level 142 Potassium Level 3.7 Chloride Level 100 Carbon Dioxide Level 27 Anion Gap 19 H Blood Urea Nitrogen 32 #H Creatinine 4.36 #H Glucose Level 107 Calcium Level 9.6 Phosphorus Level 3.6 Magnesium Level 2.0 B-Type Natriuretic Peptide 793926 H Thyroid Stimulating Hormone (TSH) 1.190 Medications Medications Current Medications Allopurinol (Zyloprim) 100 mg DAILY PO Last administered on 04/04/17 08:48; Admin Dose 100 MG; Start 04/01/17 at 13:00 Alprazolam (Xanax) 0.25 mg QHS PRN PO ANXIETY; Start 04/01/17 at 13:00 Aspirin (Halfprin) 81 mg QHS PO Last administered on 04/03/17 20:33; Admin Dose 81 MG; Start 04/01/17 at 21:00 Atorvastatin Calcium (Lipitor) 40 mg QHS PO Last administered on 04/03/17 20: 33; Admin Dose 40 MG; Start 04/01/17 at 21:00 Carisoprodol (Soma) 175 mg DAILY PRN PO MUSCLE SPASMS; Start 04/01/17 at 13:00 Clopidogrel Bisulfate (plaVIX) 75 mg QHS PO Last administered on 04/03/17 20: 34; Admin Dose 75 MG; Start 04/01/17 at 21:00 Gabapentin (Neurontin) 100 mg QHS PO Last administered on 04/02/17 21:06; Admin Dose 100 MG; Start 04/01/17 at 21:00 Acetaminophen/ Hydrocodone Bitart ([place] (7.5-325)) 1 tab Q6 PRN PO SEVERE PAIN LEVEL 7-10; Start 04/01/17 at 13:00 Losartan Potassium (Cozaar) 25 mg DAILY PO Last administered on 04/01/17 13:41 ; Admin Dose 25 MG; Start 04/01/17 at 13:00 Nitroglycerin (Nitroglycerin ([place])) 1 spray Q5M PRN TL CHEST PAIN Last administered on 04/04/17 02:50; Admin Dose 1 SPRAY; Start 04/01/17 at 13:00 Pantoprazole (Protonix Tab) 40 mg BID@06,18 PO Last administered on 04/04/17 06:02; Admin Dose 40 MG; Start 04/01/17 at 18:00 Ranolazine (Ranexa) 500 mg Q12 PO Last administered on 04/04/17 08:47; Admin Dose 500 MG; Start 04/01/17 at 21:00 Ropinirole HCl (Requip) 0.5 mg TID PO Last administered on 04/04/17 12:31; Admin Dose 0.5 MG; Start 04/01/17 at 13:00 Ondansetron HCl (Zofran Inj) 4 mg Q6H PRN IV NAUSEA AND/OR VOMITING; Start at 13:00 Heparin Sodium (Porcine) (Heparin (5000 Units/0.5 ml)) 5,000 unit Q12 SC Last administered on 04/01/17 13:41; Admin Dose 5,000 UNIT; Start 04/01/17 at 14:00 Acetaminophen (Tylenol Tab) 650 mg Q6H PRN PO PAIN LEVEL 1-3 OR FEVER Last administered on 04/01/17 23:52; Admin Dose 650 MG; Start 04/01/17 at 13:30 Docusate Sodium (Colace) 100 mg Q12H PRN PO CONSTIPATION Last administered on 21:12; Admin Dose 100 MG; Start 04/01/17 at 13:30 Zolpidem Tartrate (Ambien) 5 mg QHS PRN PO SLEEP Last administered on 20:33; Admin Dose 5 MG; Start 04/01/17 at 13:30 Epoetin L[place] (Epogen (Esrd)) 10,000 units MoWeFr@17 SC Last administered on 17:55; Admin Dose 10,000 UNITS; Start 04/03/17 at 17:00 Midodrine (Proamatine) 2.5 mg BID@,17 PO ; Start 04/04/17 at 17:00 Bisoprolol Fumarate ([place]) 2.5 mg DAILY PO ; Start 04/04/17 at 14:00 VINI REILLY MD Apr 04, 2017 15:31
[2017-04-04] MEDS: BISOPROLOL 5 MG TAB PO SCH (15:39)
[2017-04-04] MEDS: MIDODRINE 2.5 MG TAB PO SCH (18:57)
[2017-04-04] MEDS: ASPIRIN (EC) 81 MG TAB PO SCH (20:31)
[2017-04-04] MEDS: CLOPIDOGREL 75 MG TAB PO SCH (20:31)
[2017-04-04] MEDS: ATORVASTATIN 40 MG TAB PO SCH (20:31)
[2017-04-04] MEDS: ZOLPIDEM 5 MG TAB PO PRN (20:39)
[2017-04-04] MEDS: DOCUSATE SODIUM 100 MG CAP PO PRN (20:39)
[2017-04-04] MEDS: GABAPENTIN 100 MG CAP PO SCH (21:00)
[2017-04-05] VITALS (13 sets, daily range): BP systolic 121–144; BP diastolic 60–72; PULSE 74–81; RESP 17–20
[2017-04-05] MEDS: ROPINIROLE 0.25 MG TAB PO SCH ×4 (03:58→22:07)
[2017-04-05] MEDS: PANTOPRAZOLE (EC) 40 MG TAB PO SCH ×2 (06:00→17:36)
[2017-04-05] MEDS: LOSARTAN 25 MG TAB PO SCH (09:00)
[2017-04-05] MEDS: HEPARIN 5,000 UNIT/0.5 ML VIAL SC SCH ×2 (09:00→22:12)
[2017-04-05] MEDS: RANOLAZINE (SR) 500 MG TAB PO SCH ×2 (09:47→22:08)
[2017-04-05] MEDS: BISOPROLOL 5 MG TAB PO SCH (09:48)
[2017-04-05] MEDS: SEVELAMER 800 MG TAB PO SCH ×3 (10:08→17:35)
[2017-04-05] MEDS: MIDODRINE 2.5 MG TAB PO SCH ×2 (10:09→18:25)
[2017-04-05] MEDS: ALLOPURINOL 100 MG TAB PO SCH (10:09)
--- NOTE | 2017-04-05 10:48 | CONS ---
Date/Time of Note Date/Time of Note DATE: 04/05/17 TIME: 10:45 Assessment/Plan Assessment/Plan Additional Assessment/Plan ASSESSMENT: # Elevated troponin; Pt with probable NSTEMI as troponin peaked at 2.8 however this am down to 2.1 Pt has chronic un-revascularizable territory (LCx and D1). WIll defer to Dr Perez if any utility in repeat angiography IF pt has ongoing objective signs or ischemia or CP. # Low BP- Possible orthostatic component. pt complains of low BP even in the 120s and is not taking his meds for this reason. He may benefit from low dose midodrine incase has orthostatic changes and hopefully this will allow him to take his BB/ARB. 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 Started Bisoprolol # Chronic renal failure on dialysis failed to prior transplants per history. # Hyperlipidemia. # CAD- s/p many previous PCI. 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 diffusely diseased small branch of D1. patent lad/Diag stents. distal RCA disease s/p PCI 11/2016 after FFR + # leg weakness - trial of Bisoprolol instead of Coreg. SO far tolerating but he states he feels like a zombie - trial of low dose midodrine given pt's ongoing complaints of hypotension syx and refusal of cardiac meds. - aggressive lifestyle modification - con asa 81mg daily - cont plavix 75 mg daily - cont losartan - cont statin - cont dialysis per renal - previously did not tolerate nitrate - consider BiV ICD placement as outpt Consultation Date/Type/Reason Admit Date/Time Apr 01, 2017 at 10:55 Type of Consultation: Cardiology 24 HR Interval Summary Free Text/Dictation No sig't changes. Pt states he feels like a zombie after the new medications. However his BP is stable Exam/Review of Systems Vital Signs Vitals Vital Signs Date Time Temp Pulse Resp B/P Pulse Ox O2 Delivery O2 Flow Rate FiO2 04/05/17 08:15 75 04/05/17 07:37 97.7 17 131/66 100 04/05/17 01:19 4.0 04/04/17 20:00 Nasal Cannula Intake and Output 04/04/17 04/04/17 04/05/17 15:00 23:00 07:00 Intake Total 610 ml 60 ml Balance 610 ml 60 ml Exam Constitutional: alert, oriented Psych: depression Head: normocephalic Eyes: nl conjunctiva ENMT: nl external ears & nose Neck: jvd, supple Respiratory: clear to auscultation Cardiovascular: regular rate and rhythm, No edema Gastrointestinal: soft Results Result Diagram: 04/03/17 1535 04/03/172019 Medications Medications Current Medications Allopurinol (Zyloprim) 100 mg DAILY PO Last administered on 04/05/17 10:09; Admin Dose 100 MG; Start 04/01/17 at 13:00 Alprazolam (Xanax) 0.25 mg QHS PRN PO ANXIETY; Start 04/01/17 at 13:00 Aspirin (Halfprin) 81 mg QHS PO Last administered on 04/04/17 20:31; Admin Dose 81 MG; Start 04/01/17 at 21:00 Atorvastatin Calcium (Lipitor) 40 mg QHS PO Last administered on 04/04/17 20: 31; Admin Dose 40 MG; Start 04/01/17 at 21:00 Carisoprodol (Soma) 175 mg DAILY PRN PO MUSCLE SPASMS; Start 04/01/17 at 13:00 Clopidogrel Bisulfate (plaVIX) 75 mg QHS PO Last administered on 04/04/17 20: 31; Admin Dose 75 MG; Start 04/01/17 at 21:00 Gabapentin (Neurontin) 100 mg QHS PO Last administered on 04/02/17 21:06; Admin Dose 100 MG; Start 04/01/17 at 21:00 Acetaminophen/ Hydrocodone Bitart ([place] (7.5-325)) 1 tab Q6 PRN PO SEVERE PAIN LEVEL 7-10; Start 04/01/17 at 13:00 Losartan Potassium (Cozaar) 25 mg DAILY PO Last administered on 04/01/17 13:41 ; Admin Dose 25 MG; Start 04/01/17 at 13:00 Nitroglycerin (Nitroglycerin ([place])) 1 spray Q5M PRN TL CHEST PAIN Last administered on 04/04/17 02:50; Admin Dose 1 SPRAY; Start 04/01/17 at 13:00 Pantoprazole (Protonix Tab) 40 mg BID@06,18 PO Last administered on 04/04/17 17:38; Admin Dose 40 MG; Start 04/01/17 at 18:00 Ranolazine (Ranexa) 500 mg Q12 PO Last administered on 04/05/17 09:47; Admin Dose 500 MG; Start 04/01/17 at 21:00 Ropinirole HCl (Requip) 0.5 mg TID PO Last administered on 04/05/17 03:58; Admin Dose 0.5 MG; Start 04/01/17 at 13:00 Ondansetron HCl (Zofran Inj) 4 mg Q6H PRN IV NAUSEA AND/OR VOMITING; Start at 13:00 Heparin Sodium (Porcine) (Heparin (5000 Units/0.5 ml)) 5,000 unit Q12 SC Last administered on 04/01/17 13:41; Admin Dose 5,000 UNIT; Start 04/01/17 at 14:00 Acetaminophen (Tylenol Tab) 650 mg Q6H PRN PO PAIN LEVEL 1-3 OR FEVER Last administered on 04/01/17 23:52; Admin Dose 650 MG; Start 04/01/17 at 13:30 Docusate Sodium (Colace) 100 mg Q12H PRN PO CONSTIPATION Last administered on 20:39; Admin Dose 100 MG; Start 04/01/17 at 13:30 Zolpidem Tartrate (Ambien) 5 mg QHS PRN PO SLEEP Last administered on 20:39; Admin Dose 5 MG; Start 04/01/17 at 13:30 Epoetin Lyle (Epogen (Esrd)) 10,000 units MoWeFr@17 SC Last administered on 17:55; Admin Dose 10,000 UNITS; Start 04/03/17 at 17:00 Midodrine (Proamatine) 2.5 mg BID@ PO Last administered on 04/05/17 10:09 ; Admin Dose 2.5 MG; Start 04/04/17 at 17:00 Bisoprolol Fumarate (Zebeta) 2.5 mg DAILY PO Last administered on 04/05/17 09: 48; Admin Dose 2.5 MG; Start 04/04/17 at 14:00 APRIL DINH MD Apr 05, 2017 10:47
--- NOTE | 2017-04-05 11:25 | PN ---
Date/Time of Note Date/Time of Note DATE: 04/05/17 TIME: 11:24 Assessment/Plan VTE Prophylaxis VTE Prophylaxis Intervention: ambulation Lines/Catheters IV [facility] [place] Urinary Cath still in place: No Assessment/Plan Chief Complaint/Hosp Course 1. End-stage renal disease on maintenance hemodialysis. HD done yesterday, next tomorrow 2. Assess weight, try to determine dry weight. 3. Generalized weakness and difficulty walking rule out postural hypotension. On Midodrine 4. Ischemic cardiomyopathy with history of systolic and diastolic heart failure 5. Previous history of hypertension now with episodes of hypotension. Problems: Subjective 24 Hr Interval Summary Free Text/Dictation Had BM, feels better Exam/Review of Systems Vital Signs Vitals Vital Signs Date Time Temp Pulse Resp B/P Pulse Ox O2 Delivery O2 Flow Rate FiO2 04/05/17 08:15 75 04/05/17 07:37 97.7 17 131/66 100 04/05/17 01:19 4.0 04/04/17 20:00 Nasal Cannula Intake and Output 04/04/17 04/04/17 04/05/17 15:00 23:00 07:00 Intake Total 610 ml 60 ml Balance 610 ml 60 ml Exam Head: normocephalic Neck: supple Respiratory: clear to auscultation Cardiovascular: regular rate and rhythm Results Result Diagram: 04/03/17 1535 04/03/172019 Medications Medications Current Medications Allopurinol (Zyloprim) 100 mg DAILY PO Last administered on 04/05/17 10:09; Admin Dose 100 MG; Start 04/01/17 at 13:00 Alprazolam (Xanax) 0.25 mg QHS PRN PO ANXIETY; Start 04/01/17 at 13:00 Aspirin (Halfprin) 81 mg QHS PO Last administered on 04/04/17 20:31; Admin Dose 81 MG; Start 04/01/17 at 21:00 Atorvastatin Calcium (Lipitor) 40 mg QHS PO Last administered on 04/04/17 20: 31; Admin Dose 40 MG; Start 04/01/17 at 21:00 Carisoprodol (Soma) 175 mg DAILY PRN PO MUSCLE SPASMS; Start 04/01/17 at 13:00 Clopidogrel Bisulfate (plaVIX) 75 mg QHS PO Last administered on 04/04/17 20: 31; Admin Dose 75 MG; Start 04/01/17 at 21:00 Gabapentin (Neurontin) 100 mg QHS PO Last administered on 04/02/17 21:06; Admin Dose 100 MG; Start 04/01/17 at 21:00 Acetaminophen/ Hydrocodone Bitart ([place] (7.5-325)) 1 tab Q6 PRN PO SEVERE PAIN LEVEL 7-10; Start 04/01/17 at 13:00 Losartan Potassium (Cozaar) 25 mg DAILY PO Last administered on 04/01/17 13:41 ; Admin Dose 25 MG; Start 04/01/17 at 13:00 Nitroglycerin (Nitroglycerin ([place])) 1 spray Q5M PRN TL CHEST PAIN Last administered on 04/04/17 02:50; Admin Dose 1 SPRAY; Start 04/01/17 at 13:00 Pantoprazole (Protonix Tab) 40 mg BID@ PO Last administered on 04/04/17 17:38; Admin Dose 40 MG; Start 04/01/17 at 18:00 Ranolazine (Ranexa) 500 mg Q12 PO Last administered on 04/05/17 09:47; Admin Dose 500 MG; Start 04/01/17 at 21:00 Ropinirole HCl (Requip) 0.5 mg TID PO Last administered on 04/05/17 03:58; Admin Dose 0.5 MG; Start 04/01/17 at 13:00 Ondansetron HCl (Zofran Inj) 4 mg Q6H PRN IV NAUSEA AND/OR VOMITING; Start at 13:00 Heparin Sodium (Porcine) (Heparin (5000 Units/0.5 ml)) 5,000 unit Q12 SC Last administered on 04/01/17 13:41; Admin Dose 5,000 UNIT; Start 04/01/17 at 14:00 Acetaminophen (Tylenol Tab) 650 mg Q6H PRN PO PAIN LEVEL 1-3 OR FEVER Last administered on 04/01/17 23:52; Admin Dose 650 MG; Start 04/01/17 at 13:30 Docusate Sodium (Colace) 100 mg Q12H PRN PO CONSTIPATION Last administered on 20:39; Admin Dose 100 MG; Start 04/01/17 at 13:30 Zolpidem Tartrate (Ambien) 5 mg QHS PRN PO SLEEP Last administered on 20:39; Admin Dose 5 MG; Start 04/01/17 at 13:30 Epoetin Lyle (Epogen (Esrd)) 10,000 units MoWeFr@17 SC Last administered on 17:55; Admin Dose 10,000 UNITS; Start 04/03/17 at 17:00 Midodrine (Proamatine) 2.5 mg BID@ PO Last administered on 04/05/17 10:09 ; Admin Dose 2.5 MG; Start 04/04/17 at 17:00 Bisoprolol Fumarate (Zebeta) 2.5 mg DAILY PO Last administered on 04/05/17 09: 48; Admin Dose 2.5 MG; Start 04/04/17 at 14:00 VINI REILLY MD Apr 05, 2017 11:25
[2017-04-05] MEDS: ALBUTEROL/IPRATROPIUM (NEB) 3 ML AMP HHN PRN ×2 (14:24→19:36)
[2017-04-05] MEDS: CLOPIDOGREL 75 MG TAB PO SCH (22:07)
[2017-04-05] MEDS: ASPIRIN (EC) 81 MG TAB PO SCH (22:08)
[2017-04-05] MEDS: ATORVASTATIN 40 MG TAB PO SCH (22:08)
[2017-04-05] MEDS: GABAPENTIN 100 MG CAP PO SCH (22:12)
[2017-04-06] VITALS (19 sets, daily range): BP systolic 117–133; BP diastolic 54–76; PULSE 70–85; RESP 17–20
[2017-04-06] MEDS ORDERED: CALCIUM CARBONATE 500 MG CHEW TAB PO PRN
[2017-04-06] MEDS: ZOLPIDEM 5 MG TAB PO PRN (00:07)
[2017-04-06] MEDS: ALBUTEROL/IPRATROPIUM (NEB) 3 ML AMP HHN PRN ×3 (01:15→15:31)
[2017-04-06] MEDS: ROPINIROLE 0.25 MG TAB PO SCH ×3 (04:37→22:22)
[2017-04-06] MEDS: PANTOPRAZOLE (EC) 40 MG TAB PO SCH ×2 (06:00→18:15)
[2017-04-06 06:20] LABS: ADD SCAN DIFF NO
[2017-04-06 06:27] LABS: BASOPHILS % 0.4 % (0.0-2.0); EOSINOPHILS # 0.1 10^3/ul (0.0-0.5); EOSINOPHILS % 2.4 % (0.0-7.0); HEMATOCRIT 25.6 % (42.0-52.0); HEMOGLOBIN 7.7 g/dl (14.0-18.0); LYMPHOCYTES # 1.1 10^3/ul (0.8-2.9); MEAN CORPUSCULAR HEMOGLOBIN 30.2 pg (29.0-33.0); MEAN CORPUSCULAR HGB CONC 30.1 g/dl (32.0-37.0); MEAN CORPUSCULAR VOLUME 100.4 fl (82.0-101.0); MEAN PLATELET VOLUME 10.7 fl (7.4-10.4); MONOCYTE # 0.2 10^3/ul (0.3-0.9); MONOCYTES % 4.4 % (0.0-11.0); NEUTROPHIL # 3.6 10^3/ul (1.6-7.5); NEUTROPHILS % 71.4 % (39.0-77.0); PLATELET COUNT 132 10^3/UL (140-415); RED BLOOD COUNT 2.55 10^6/ul (4.70-6.10); RED CELL DISTRIBUTION WIDTH 20.7 % (11.5-14.5); WHITE BLOOD COUNT 5.1 10^3/ul (4.8-10.8)
[2017-04-06 07:03] LABS: ALBUMIN 4.4 g/dl (3.3-4.9); ALBUMIN/GLOBULIN RATIO 1.91; CALCIUM 9.4 mg/dl (8.4-10.2); CREATININE 8.82 mg/dl (0.61-1.24); POTASSIUM 5.1 mmol/L (3.5-5.1); TOTAL PROTEIN 6.7 g/dl (6.1-8.1)
--- NOTE | 2017-04-06 08:07 | CONS ---
Date/Time of Note Date/Time of Note DATE: 04/06/17 TIME: 08:05 Assessment/Plan Assessment/Plan Problems: (1) NSTEMI (non-ST elevated myocardial infarction) Status: Acute Comment: asx now.. BP issues continue (2) HTN (hypertension) Comment: back off meds, as pt not tolerate xs (3) ESRD (end stage renal disease) on dialysis Comment: for HD today (4) Debility Comment: needs rehab... will ask for ARU eval here at [facility] Consultation Date/Type/Reason Admit Date/Time Apr 01, 2017 at 10:55 Initial Consult Date Type of Consultation: neph 24 HR Interval Summary Free Text/Dictation fair.. quite weak still Exam/Review of Systems Vital Signs Vitals Vital Signs Date Time Temp Pulse Resp B/P Pulse Ox O2 Delivery O2 Flow Rate FiO2 04/06/17 04:39 97.1 74 18 129/60 100 Nasal Cannula 3.0 Intake and Output 04/05/17 04/05/17 04/06/17 14:59 22:59 06:59 Intake Total 500 ml 100 ml Balance 500 ml 100 ml Exam Constitutional: alert, oriented Head: normocephalic Eyes: nl conjunctiva Neck: supple Respiratory: clear to auscultation Cardiovascular: regular rate and rhythm Gastrointestinal: nl liver, spleen, soft Extremities: normal pulses (fxn avf) Results Result Diagram: 04/06/17 0545 04/06/17 0545 Results 24 hrs Laboratory Tests Test 04/06/17 05:45 White Blood Count 5.1 Red Blood Count 2.55 L Hemoglobin 7.7 L Hematocrit 25.6 L Mean Corpuscular Volume 100.4 Mean Corpuscular Hemoglobin 30.2 Mean Corpuscular Hemoglobin Concent 30.1 L Red Cell Distribution Width 20.7 H Platelet Count 132 L Mean Platelet Volume 10.7 H Neutrophils % 71.4 Lymphocytes % 21.0 Monocytes % 4.4 Eosinophils % 2.4 Basophils % 0.4 Nucleated Red Blood Cells % 0.0 Neutrophils # 3.6 Lymphocytes # 1.1 Monocytes # 0.2 L Eosinophils # 0.1 Basophils # 0.0 Nucleated Red Blood Cells # 0.0 Sodium Level 138 Potassium Level 5.1 Chloride Level 97 Carbon Dioxide Level 22 Anion Gap 24 H Blood Urea Nitrogen 70 H Creatinine 8.82 H Glucose Level 108 Calcium Level 9.4 Total Bilirubin 0.0 L Direct Bilirubin 0.00 Indirect Bilirubin 0.0 Aspartate Amino Transf (AST/SGOT) 18 Alanine Aminotransferase (ALT/SGPT) 25 Alkaline Phosphatase 90 Total Protein 6.7 Albumin 4.4 Globulin 2.30 Albumin/Globulin Ratio 1.91 Medications Medications Current Medications Allopurinol (Zyloprim) 100 mg DAILY PO Last administered on 04/05/17 10:09; Admin Dose 100 MG; Start 04/01/17 at 13:00 Alprazolam (Xanax) 0.25 mg QHS PRN PO ANXIETY; Start 04/01/17 at 13:00 Aspirin (Halfprin) 81 mg QHS PO Last administered on 04/05/17 22:08; Admin Dose 81 MG; Start 04/01/17 at 21:00 Atorvastatin Calcium (Lipitor) 40 mg QHS PO Last administered on 04/05/17 22: 08; Admin Dose 40 MG; Start 04/01/17 at 21:00 Carisoprodol (Soma) 175 mg DAILY PRN PO MUSCLE SPASMS; Start 04/01/17 at 13:00 Clopidogrel Bisulfate (plaVIX) 75 mg QHS PO Last administered on 04/05/17 22: 07; Admin Dose 75 MG; Start 04/01/17 at 21:00 Gabapentin (Neurontin) 100 mg QHS PO Last administered on 04/02/17 21:06; Admin Dose 100 MG; Start 04/01/17 at 21:00 Acetaminophen/ Hydrocodone Bitart ([place] (7.5-325)) 1 tab Q6 PRN PO SEVERE PAIN LEVEL 7-10; Start 04/01/17 at 13:00 Losartan Potassium (Cozaar) 25 mg DAILY PO Last administered on 04/01/17 13:41 ; Admin Dose 25 MG; Start 04/01/17 at 13:00 Nitroglycerin (Nitroglycerin ([place])) 1 spray Q5M PRN TL CHEST PAIN Last administered on 04/04/17 02:50; Admin Dose 1 SPRAY; Start 04/01/17 at 13:00 Pantoprazole (Protonix Tab) 40 mg BID@,18 PO Last administered on 04/05/17 17:36; Admin Dose 40 MG; Start 04/01/17 at 18:00 Ranolazine (Ranexa) 500 mg Q12 PO Last administered on 04/05/17 22:08; Admin Dose 500 MG; Start 04/01/17 at 21:00 Ropinirole HCl (Requip) 0.5 mg TID PO Last administered on 04/06/17 04:37; Admin Dose 0.5 MG; Start 04/01/17 at 13:00 Ondansetron HCl (Zofran Inj) 4 mg Q6H PRN IV NAUSEA AND/OR VOMITING; Start at 13:00 Heparin Sodium (Porcine) (Heparin (5000 Units/0.5 ml)) 5,000 unit Q12 SC Last administered on 04/01/17 13:41; Admin Dose 5,000 UNIT; Start 04/01/17 at 14:00 Acetaminophen (Tylenol Tab) 650 mg Q6H PRN PO PAIN LEVEL 1-3 OR FEVER Last administered on 04/01/17 23:52; Admin Dose 650 MG; Start 04/01/17 at 13:30 Docusate Sodium (Colace) 100 mg Q12H PRN PO CONSTIPATION Last administered on 20:39; Admin Dose 100 MG; Start 04/01/17 at 13:30 Zolpidem Tartrate (Ambien) 5 mg QHS PRN PO SLEEP Last administered on 00:07; Admin Dose 5 MG; Start 04/01/17 at 13:30 Epoetin Lyle (Epogen (Esrd)) 10,000 units MoWeFr@17 SC Last administered on 17:55; Admin Dose 10,000 UNITS; Start 04/03/17 at 17:00 Midodrine (Proamatine) 2.5 mg BID@ PO Last administered on 04/05/17 18:25 ; Admin Dose 2.5 MG; Start 04/04/17 at 17:00 Bisoprolol Fumarate (Zebeta) 2.5 mg DAILY PO Last administered on 04/05/17 09: 48; Admin Dose 2.5 MG; Start 04/04/17 at 14:00 Calcium Carbonate (Tums) 500 mg Q4H PRN PO heart burn Last administered on 04/05 23:55; Admin Dose 500 MG; Start 04/06/17 at 00:00 POP BOYCE MD Apr 06, 2017 08:06
[2017-04-06] MEDS: SEVELAMER 800 MG TAB PO SCH ×3 (08:55→18:15)
[2017-04-06] MEDS: LOSARTAN 25 MG TAB PO SCH (08:56)
[2017-04-06] MEDS: HEPARIN 5,000 UNIT/0.5 ML VIAL SC SCH ×2 (08:56→21:00)
[2017-04-06] MEDS: BISOPROLOL 5 MG TAB PO SCH (08:56)
[2017-04-06] MEDS: MIDODRINE 2.5 MG TAB PO SCH ×2 (08:56→18:13)
[2017-04-06] MEDS ORDERED: ALBUMIN HUMAN 25% 100 ML IV ONE (09:00)
[2017-04-06] MEDS: RANOLAZINE (SR) 500 MG TAB PO SCH ×2 (13:18→22:22)
[2017-04-06] MEDS: ALLOPURINOL 100 MG TAB PO SCH (13:18)
--- NOTE | 2017-04-06 17:09 | CONS ---
Date/Time of Note Date/Time of Note DATE: 04/06/17 TIME: 17:06 Assessment/Plan Assessment/Plan Chief Complaint/Hosp Course Impression: - recurrent NSTEMI- sizable leak 2.8, downtrending - ICM with LVEF - LBBB - CAD s/p extensive PCI hx including LM, prox/mid LAD, prox/mid/distal RCA Recommendations - extensive family discussion held - plan for [facility] possible PCI to eval LAD/RCA tomorrow. 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 - consider inpt placement of BiV ICD, will d/w EP Problems: Consultation Date/Type/Reason Admit Date/Time Apr 01, 2017 at 10:55 Initial Consult Date Type of Consultation: cardiology 24 HR Interval Summary Free Text/Dictation no acute events. no cp, cont sob. no palpitations. not active tele reviewed: lbbb, pvcs Detailed Summary Additional Comments all other systems negative Exam/Review of Systems Vital Signs Vitals Vital Signs Date Time Temp Pulse Resp B/P Pulse Ox O2 Delivery O2 Flow Rate FiO2 04/06/17 16:16 79 04/06/17 16:12 98.0 18 123/60 98 04/06/17 15:32 Nasal Cannula 4.0 Intake and Output 04/05/17 04/05/17 04/06/17 15:00 23:00 07:00 Intake Total 500 ml 100 ml Balance 500 ml 100 ml Exam Constitutional: alert, oriented, well developed Psych: depression, no complaints Head: normocephalic Eyes: nl conjunctiva ENMT: nl external ears & nose Neck: supple Respiratory: clear to auscultation, normal air movement Cardiovascular: nl pulses, regular rate and rhythm, No S3 Gastrointestinal: non-tender, soft Musculoskeletal: nl extremities to inspection Skin: nl turgor Results Result Diagram: 04/06/17 0545 04/06/17 0545 Results 24 hrs Laboratory Tests Test 04/06/17 05:45 White Blood Count 5.1 Red Blood Count 2.55 L Hemoglobin 7.7 L Hematocrit 25.6 L Mean Corpuscular Volume 100.4 Mean Corpuscular Hemoglobin 30.2 Mean Corpuscular Hemoglobin Concent 30.1 L Red Cell Distribution Width 20.7 H Platelet Count 132 L Mean Platelet Volume 10.7 H Neutrophils % 71.4 Lymphocytes % 21.0 Monocytes % 4.4 Eosinophils % 2.4 Basophils % 0.4 Nucleated Red Blood Cells % 0.0 Neutrophils # 3.6 Lymphocytes # 1.1 Monocytes # 0.2 L Eosinophils # 0.1 Basophils # 0.0 Nucleated Red Blood Cells # 0.0 Sodium Level 138 Potassium Level 5.1 Chloride Level 97 Carbon Dioxide Level 22 Anion Gap 24 H Blood Urea Nitrogen 70 H Creatinine 8.82 H Glucose Level 108 Calcium Level 9.4 Total Bilirubin 0.0 L Direct Bilirubin 0.00 Indirect Bilirubin 0.0 Aspartate Amino Transf (AST/SGOT) 18 Alanine Aminotransferase (ALT/SGPT) 25 Alkaline Phosphatase 90 Total Protein 6.7 Albumin 4.4 Globulin 2.30 Albumin/Globulin Ratio 1.91 Medications Medications Current Medications Allopurinol (Zyloprim) 100 mg DAILY PO Last administered on 04/06/17 13:18; Admin Dose 100 MG; Start 04/01/17 at 13:00 Alprazolam (Xanax) 0.25 mg QHS PRN PO ANXIETY; Start 04/01/17 at 13:00 Aspirin (Halfprin) 81 mg QHS PO Last administered on 04/05/17 22:08; Admin Dose 81 MG; Start 04/01/17 at 21:00 Atorvastatin Calcium (Lipitor) 40 mg QHS PO Last administered on 04/05/17 22: 08; Admin Dose 40 MG; Start 04/01/17 at 21:00 Carisoprodol (Soma) 175 mg DAILY PRN PO MUSCLE SPASMS; Start 04/01/17 at 13:00 Clopidogrel Bisulfate (plaVIX) 75 mg QHS PO Last administered on 04/05/17 22: 07; Admin Dose 75 MG; Start 04/01/17 at 21:00 Gabapentin (Neurontin) 100 mg QHS PO Last administered on 04/02/17 21:06; Admin Dose 100 MG; Start 04/01/17 at 21:00 Acetaminophen/ Hydrocodone Bitart ([place] (7.5-325)) 1 tab Q6 PRN PO SEVERE PAIN LEVEL 7-10; Start 04/01/17 at 13:00 Losartan Potassium (Cozaar) 25 mg DAILY PO Last administered on 04/01/17 13:41 ; Admin Dose 25 MG; Start 04/01/17 at 13:00 Nitroglycerin (Nitroglycerin ([place])) 1 spray Q5M PRN TL CHEST PAIN Last administered on 04/04/17 02:50; Admin Dose 1 SPRAY; Start 04/01/17 at 13:00 Pantoprazole (Protonix Tab) 40 mg BID@18 PO Last administered on 04/05/17 17:36; Admin Dose 40 MG; Start 04/01/17 at 18:00 Ranolazine (Ranexa) 500 mg Q12 PO Last administered on 04/06/17 13:18; Admin Dose 500 MG; Start 04/01/17 at 21:00 Ropinirole HCl (Requip) 0.5 mg TID PO Last administered on 04/06/17 08:55; Admin Dose 0.5 MG; Start 04/01/17 at 13:00 Ondansetron HCl (Zofran Inj) 4 mg Q6H PRN IV NAUSEA AND/OR VOMITING; Start at 13:00 Heparin Sodium (Porcine) (Heparin (5000 Units/0.5 ml)) 5,000 unit Q12 SC Last administered on 04/01/17 13:41; Admin Dose 5,000 UNIT; Start 04/01/17 at 14:00 Acetaminophen (Tylenol Tab) 650 mg Q6H PRN PO PAIN LEVEL 1-3 OR FEVER Last administered on 04/01/17 23:52; Admin Dose 650 MG; Start 04/01/17 at 13:30 Docusate Sodium (Colace) 100 mg Q12H PRN PO CONSTIPATION Last administered on 20:39; Admin Dose 100 MG; Start 04/01/17 at 13:30 Zolpidem Tartrate (Ambien) 5 mg QHS PRN PO SLEEP Last administered on 00:07; Admin Dose 5 MG; Start 04/01/17 at 13:30 Epoetin Lyle (Epogen (Esrd)) 10,000 units MoWeFr@17 SC Last administered on 17:55; Admin Dose 10,000 UNITS; Start 04/03/17 at 17:00 Midodrine (Proamatine) 2.5 mg BID@, PO Last administered on 04/06/17 08:56 ; Admin Dose 2.5 MG; Start 6/17/17 at 17:00 Bisoprolol Fumarate (Zebeta) 2.5 mg DAILY PO Last administered on 04/05/17 09: 48; Admin Dose 2.5 MG; Start 04/04/17 at 14:00 Calcium Carbonate (Tums) 500 mg Q4H PRN PO heart burn Last administered on 04/05 23:55; Admin Dose 500 MG; Start 04/06/17 at 00:00 Procedures Procedures imnaging reports/provider reports reviewed in emr SUSANA VASQUEZ Apr 06, 2017 17:09
[2017-04-06] MEDS: EPOETIN 10000 UNITS/1 ML INJ (ESRD) SC SCH (18:15)
[2017-04-06] MEDS: GABAPENTIN 100 MG CAP PO SCH (21:00)
[2017-04-06] MEDS: ASPIRIN (EC) 81 MG TAB PO SCH (22:22)
[2017-04-06] MEDS: CLOPIDOGREL 75 MG TAB PO SCH (22:22)
[2017-04-06] MEDS: ATORVASTATIN 40 MG TAB PO SCH (22:22)
[2017-04-07] VITALS (24 sets, daily range): BP systolic 90–150; BP diastolic 40–85; PULSE 70–87; RESP 18–20
[2017-04-07] MEDS: PANTOPRAZOLE (EC) 40 MG TAB PO SCH ×2 (06:00→10:42)
[2017-04-07] MEDS ORDERED: IODIXANOL LOCM 100 ML BTL ONE ×2 (07:04→07:47)
[2017-04-07] MEDS ORDERED: LIDOCAINE 1% (MDV) 20 ML INJ ONE (07:04)
[2017-04-07] MEDS ORDERED: MIDAZOLAM 1 MG/ML 2 ML INJ ONE (07:05)
[2017-04-07] MEDS ORDERED: FENTAnyl 50 MCG/ML VIAL ONE (07:05)
[2017-04-07] MEDS ORDERED: SOD CHLORIDE 0.9% 500 ML ONE (07:48)
--- NOTE | 2017-04-07 08:11 | CONS ---
Date/Time of Note Date/Time of Note DATE: 04/07/17 TIME: 08:09 Assessment/Plan Assessment/Plan Problems: (1) NSTEMI (non-ST elevated myocardial infarction) Status: Acute Comment: discussed w dr Perez last night... for angio this am (2) HTN (hypertension) Comment: controlled on the new meds (3) ESRD (end stage renal disease) on dialysis Comment: erika yesterday... for repeat in am Consultation Date/Type/Reason Admit Date/Time Apr 01, 2017 at 10:55 Type of Consultation: neph 24 HR Interval Summary Free Text/Dictation for cath today Exam/Review of Systems Vital Signs Vitals Vital Signs Date Time Temp Pulse Resp B/P Pulse Ox O2 Delivery O2 Flow Rate FiO2 04/07/17 06:27 76 18 150/71 99 Nasal Cannula 4.0 04/07/17 04:26 98.0 Intake and Output 04/06/17 04/06/17 04/07/17 15:00 23:00 07:00 Intake Total 300 ml 200 ml 200 ml Output Total 2500 ml Balance -2200 ml 200 ml 200 ml Exam Constitutional: alert, oriented Head: normocephalic Neck: supple Respiratory: clear to auscultation Cardiovascular: regular rate and rhythm Gastrointestinal: soft Extremities: normal pulses (fxn AVF) Results Result Diagram: 04/06/1745 04/06/17 0545 Medications Medications Current Medications Allopurinol (Zyloprim) 100 mg DAILY PO Last administered on 04/06/17 13:18; Admin Dose 100 MG; Start 04/01/17 at 13:00 Alprazolam (Xanax) 0.25 mg QHS PRN PO ANXIETY; Start 04/01/17 at 13:00 Aspirin (Halfprin) 81 mg QHS PO Last administered on 04/06/17 22:22; Admin Dose 81 MG; Start 04/01/17 at 21:00 Atorvastatin Calcium (Lipitor) 40 mg QHS PO Last administered on 04/06/17 22: 22; Admin Dose 40 MG; Start 04/01/17 at 21:00 Carisoprodol (Soma) 175 mg DAILY PRN PO MUSCLE SPASMS; Start 04/01/17 at 13:00 Clopidogrel Bisulfate (plaVIX) 75 mg QHS PO Last administered on 04/06/17 22: 22; Admin Dose 75 MG; Start 04/01/17 at 21:00 Gabapentin (Neurontin) 100 mg QHS PO Last administered on 04/02/17 21:06; Admin Dose 100 MG; Start 04/01/17 at 21:00 Acetaminophen/ Hydrocodone Bitart ([place] (7.5-325)) 1 tab Q6 PRN PO SEVERE PAIN LEVEL 7-10; Start 04/01/17 at 13:00 Losartan Potassium (Cozaar) 25 mg DAILY PO Last administered on 04/01/17 13:41 ; Admin Dose 25 MG; Start 04/01/17 at 13:00 Nitroglycerin (Nitroglycerin ([place])) 1 spray Q5M PRN TL CHEST PAIN Last administered on 04/04/17 02:50; Admin Dose 1 SPRAY; Start 04/01/17 at 13:00 Pantoprazole (Protonix Tab) 40 mg BID@,18 PO Last administered on 04/06/17 18:15; Admin Dose 40 MG; Start 04/01/17 at 18:00 Ranolazine (Ranexa) 500 mg Q12 PO Last administered on 04/06/17 22:22; Admin Dose 500 MG; Start 04/01/17 at 21:00 Ropinirole HCl (Requip) 0.5 mg TID PO Last administered on 04/06/17 22:22; Admin Dose 0.5 MG; Start 04/01/17 at 13:00 Ondansetron HCl (Zofran Inj) 4 mg Q6H PRN IV NAUSEA AND/OR VOMITING Last administered on 04/07/17 06:08; Admin Dose 4 MG; Start 04/01/17 at 13:00 Heparin Sodium (Porcine) (Heparin (5000 Units/0.5 ml)) 5,000 unit Q12 SC Last administered on 04/01/17 13:41; Admin Dose 5,000 UNIT; Start 04/01/17 at 14:00 Acetaminophen (Tylenol Tab) 650 mg Q6H PRN PO PAIN LEVEL 1-3 OR FEVER Last administered on 04/01/17 23:52; Admin Dose 650 MG; Start 04/01/17 at 13:30 Docusate Sodium (Colace) 100 mg Q12H PRN PO CONSTIPATION Last administered on 20:39; Admin Dose 100 MG; Start 04/01/17 at 13:30 Zolpidem Tartrate (Ambien) 5 mg QHS PRN PO SLEEP Last administered on 00:07; Admin Dose 5 MG; Start 04/01/17 at 13:30 Epoetin Lyle (Epogen (Esrd)) 10,000 units MoWeFr@17 SC Last administered on 18:15; Admin Dose 10,000 UNITS; Start 04/03/17 at 17:00 Midodrine (Proamatine) 2.5 mg BID@ PO Last administered on 04/06/17 18:13 ; Admin Dose 2.5 MG; Start 04/04/17 at 17:00 Bisoprolol Fumarate (Zebeta) 2.5 mg DAILY PO Last administered on 04/05/17 09: 48; Admin Dose 2.5 MG; Start 04/04/17 at 14:00 Calcium Carbonate (Tums) 500 mg Q4H PRN PO heart burn Last administered on 04/05 23:55; Admin Dose 500 MG; Start 04/06/17 at 00:00 POP BOYCE MD Apr 07, 2017 08:11
[2017-04-07] MEDS ORDERED: SOD CHLORIDE 0.9% 1,000 ML IV SCH (08:20)
--- NOTE | 2017-04-07 08:42 | CONS ---
Date/Time of Note Date/Time of Note DATE: 04/07/17 TIME: 08:39 Assessment/Plan Assessment/Plan Chief Complaint/Hosp Course Impression: - recurrent NSTEMI- sizable leak 2.8, downtrending - ICM with LVEF - LBBB - CAD s/p extensive PCI hx including LM, prox/mid LAD, prox/mid/distal RCA - ESRD on iHD Recommendations - extensive family discussion held, LHC done today - there is occlusion of known D1 sub-branch which was jailed and unable to be intervened on. this may be culprit for current troponin leak. - cont asa/plavix - cont statin - bb titration - ranexa - consider inpt placement of BiV ICD, will d/w EP Problems: Consultation Date/Type/Reason Admit Date/Time Apr 01, 2017 at 10:55 Type of Consultation: cardiology Referring Provider: POP BOYCE MD 24 HR Interval Summary Free Text/Dictation no acute events. pt without cp, has cont mild sob on o2. Detailed Summary ENT: no complaints Respiratory: shortness of breath Cardiovascular: no complaints Gastrointestinal: no complaints Exam/Review of Systems Vital Signs Vitals Vital Signs Date Time Temp Pulse Resp B/P Pulse Ox O2 Delivery O2 Flow Rate FiO2 04/07/17 06:27 76 18 150/71 99 Nasal Cannula 4.0 04/07/17 04:26 98.0 Intake and Output 04/06/17 04/06/17 04/07/17 15:00 23:00 07:00 Intake Total 300 ml 200 ml 200 ml Output Total 2500 ml Balance -2200 ml 200 ml 200 ml Exam Constitutional: alert, oriented Psych: depression Head: normocephalic Eyes: nl conjunctiva ENMT: nl external ears & nose Neck: jvd, supple Respiratory: clear to auscultation Cardiovascular: regular rate and rhythm, No edema Gastrointestinal: soft Results Result Diagram: 04/06/17 0545 04/06/1745 Medications Medications Current Medications Allopurinol (Zyloprim) 100 mg DAILY PO Last administered on 04/06/17t 13:18; Admin Dose 100 MG; Start 04/01/17 at 13:00 Alprazolam (Xanax) 0.25 mg QHS PRN PO ANXIETY; Start 04/01/17 at 13:00 Aspirin (Halfprin) 81 mg QHS PO Last administered on 04/06/17 22:22; Admin Dose 81 MG; Start 04/01/17 at 21:00 Atorvastatin Calcium (Lipitor) 40 mg QHS PO Last administered on 04/06/17 22: 22; Admin Dose 40 MG; Start 04/01/17 at 21:00 Carisoprodol (Soma) 175 mg DAILY PRN PO MUSCLE SPASMS; Start 04/01/17 at 13:00 Clopidogrel Bisulfate (plaVIX) 75 mg QHS PO Last administered on 04/06/17 22: 22; Admin Dose 75 MG; Start 04/01/17 at 21:00 Gabapentin (Neurontin) 100 mg QHS PO Last administered on 04/02/17 21:06; Admin Dose 100 MG; Start 04/01/17 at 21:00 Acetaminophen/ Hydrocodone Bitart ([place] (7.5-325)) 1 tab Q6 PRN PO SEVERE PAIN LEVEL 7-10; Start 04/01/17 at 13:00 Losartan Potassium (Cozaar) 25 mg DAILY PO Last administered on 04/01/17 13:41 ; Admin Dose 25 MG; Start 04/01/17 at 13:00 Nitroglycerin (Nitroglycerin ([place])) 1 spray Q5M PRN TL CHEST PAIN Last administered on 04/04/17 02:50; Admin Dose 1 SPRAY; Start 04/01/17 at 13:00 Pantoprazole (Protonix Tab) 40 mg BID@,18 PO Last administered on 04/06/17 18:15; Admin Dose 40 MG; Start 04/01/17 at 18:00 Ranolazine (Ranexa) 500 mg Q12 PO Last administered on 04/06/17 22:22; Admin Dose 500 MG; Start 04/01/17 at 21:00 Ropinirole HCl (Requip) 0.5 mg TID PO Last administered on 04/06/17 22:22; Admin Dose 0.5 MG; Start 04/01/17 at 13:00 Ondansetron HCl (Zofran Inj) 4 mg Q6H PRN IV NAUSEA AND/OR VOMITING Last administered on 04/07/17 06:08; Admin Dose 4 MG; Start 04/01/17 at 13:00 Heparin Sodium (Porcine) (Heparin (5000 Units/0.5 ml)) 5,000 unit Q12 SC Last administered on 04/01/17 13:41; Admin Dose 5,000 UNIT; Start 04/01/17 at 14:00 Acetaminophen (Tylenol Tab) 650 mg Q6H PRN PO PAIN LEVEL 1-3 OR FEVER Last administered on 04/01/17 23:52; Admin Dose 650 MG; Start 04/01/17 at 13:30 Docusate Sodium (Colace) 100 mg Q12H PRN PO CONSTIPATION Last administered on 20:39; Admin Dose 100 MG; Start 04/01/17 at 13:30 Zolpidem Tartrate (Ambien) 5 mg QHS PRN PO SLEEP Last administered on 00:07; Admin Dose 5 MG; Start 04/01/17 at 13:30 Epoetin Lyle (Epogen (Esrd)) 10,000 units MoWeFr@17 SC Last administered on 18:15; Admin Dose 10,000 UNITS; Start 04/03/17 at 17:00 Midodrine (Proamatine) 2.5 mg BID@09,17 PO Last administered on 04/06/17 18:13 ; Admin Dose 2.5 MG; Start 04/04/17 at 17:00 Bisoprolol Fumarate (Zebeta) 2.5 mg DAILY PO Last administered on 04/05/17 09: 48; Admin Dose 2.5 MG; Start 04/04/17 at 14:00 Calcium Carbonate (Tums) 500 mg Q4H PRN PO heart burn Last administered on 04/05 23:55; Admin Dose 500 MG; Start 04/06/17 at 00:00 Miscellaneous Information HOLD all METFORMIN ... ONCE XX ; Start 04/07/17 at 08: 30; Stop 04/09/17 at 08:29 Sodium Chloride (NS) 1,000 ml @ 75 mls/hr [id number] IV ; Start 04/07/17 at 08:20 ; Stop 04/07/17 at 13:19 SUSANA VASQUEZ Apr 07, 2017 08:42
[2017-04-07] MEDS: LOSARTAN 25 MG TAB PO SCH (10:27)
[2017-04-07] MEDS: MIDODRINE 2.5 MG TAB PO SCH ×2 (10:29→15:27)
[2017-04-07] MEDS: HEPARIN 5,000 UNIT/0.5 ML VIAL SC SCH ×2 (10:30→21:00)
[2017-04-07] MEDS: ROPINIROLE 0.25 MG TAB PO SCH ×3 (10:30→21:31)
[2017-04-07] MEDS: RANOLAZINE (SR) 500 MG TAB PO SCH ×3 (10:30→21:10)
[2017-04-07] MEDS: ALLOPURINOL 100 MG TAB PO SCH (10:33)
[2017-04-07] MEDS: SEVELAMER 800 MG TAB PO SCH ×3 (10:33→17:52)
[2017-04-07] MEDS: BISOPROLOL 5 MG TAB PO SCH (10:48)
--- NOTE | 2017-04-07 10:49 | OPR ---
DATE OF OPERATION: 04/07/2017 PROCEDURE PERFORMED: Left heart catheterization. PREOPERATIVE DIAGNOSES: 1. Multivessel coronary artery disease. 2. Severe ischemic cardiomyopathy. 3. Non-ST elevation myocardial infarction. POSTOPERATIVE DIAGNOSIS: 1. Multivessel coronary artery disease. 2. Severe ischemic cardiomyopathy. PROGRESS WORKER: Susana Perez MD PRIMARY CARE PHYSICIAN: Steven Johnson MD HISTORY: Mr. Clemens is a pleasant 71-year-old man with a history of multivessel coronary artery disease, status post multiple PCI to the left main LAD as well as RCA and diagonal 1 arteries. Last PCI was in November 2016. The patient now with recurrent admissions for chest pain and shortness of breath. The patient now found to have NSTEMI with a peak troponin of 2.8. Given elevated troponin level and recurrent admissions, the decision was made to proceed with cardiac catheterization. The patient was aware of all risks, benefits of procedure prior to arrival in the labor relations representative. PROCEDURE DESCRIPTION: Right groin was prepped and draped in usual sterile fashion and anesthetized with 1% lidocaine solution. A 6-[place]ban[place] sheath was placed in right femoral artery without difficulty using modified Seldinger technique and under ultrasound guidance. Right femoral angiogram was obtained showing correct sheath placement in the mid right common femoral artery. Cineangiography was then obtained of the left and right coronary systems using a 6-[place] JL4 and JR4 diagnostic catheters respectively. A pigtail catheter was then advanced to the left ventricle over a guidewire and pressures were obtained. At this point, procedure was concluded and all catheters and wires were removed. A Perclose closure device was used for hemostasis of the right femoral artery access site. Patient tolerated the procedure well without complication. Estimated blood loss less than 20 mL. No specimens were obtained. No complications. MODERATE SEDATION SUMMARY: poultry farm laborer nurse was dedicated to monitoring patient's respiratory and physical status, while I administered moderate sedation. Total procedure time was greater than 15minutes. HEMODYNAMICS: LVEDP was 22 mmHg. No significant gradient in LVEDP pullback. CORONARY ANATOMY: 1. Left main coronary artery: This is a large vessel. Previous stent extending into the proximal portion of the vessel. The stent is widely patent with mild in-stent restenosis 20%. 2. Left anterior descending artery: This is a large wraparound vessel. There are previously placed overlapping stents extending from the left main to the mid LAD. The stents are widely patent with 30% mild in-stent restenosis in the proximal portion of LAD, as well as the mid LAD portion of approximately 40%. The mid to distal LAD has mild luminal irregularities with distal vessel having a 30% lesion. The first diagonal branch is a large branch that extends laterally. There are patent stents in the proximal ostial portion extending into the mid portion of the stent. There is 30% in-stent restenosis in the proximal to mid portion of the stent. The previous inferior branch of the diag 1 artery which was jailed by the previous stent is now occluded without evidence of collateral flow. 3. Right coronary artery: Dominant vessel. Proximal RCA has diffuse disease with heavy calcification. The distal subsection of the proximal RCA has a stent which has 30% in-stent restenosis, otherwise patent. There are overlapping stents extending to the distal portion of the mid RCA with 40% in- stent restenosis. The mid to distal RCA has diffuse disease approximately 40% to 50%. The very distal RCA has patent stent without in-stent restenosis. The distal RCA branches into RPDA as well as RPL vessels which have luminal irregularities but no significant disease. There are noted right to left collaterals filling the left circumflex system. 4. Left circumflex has a chronic ostial occlusion which has filling of the distal circumflex as well as OM and O2 branches via weak right and left to left collaterals. SUMMARY: 1. Severe vessel coronary artery disease with patent stents of the left main LAD as well as RCA with KRISTIN 3 flow. 2. Progression of severe disease of the D1 sub branch which is now completely occluded. 3. Mildly elevated left ventricular filling pressures. RECOMMENDATIONS: 1. Continue aspirin and Plavix given recent stent placement. 2. Maximal medical therapy with statin, beta blockers and antianginals as tolerated 3. Continue blood pressure control 4. Consideration for BALLOON DIPPER-D placement given recurrent heart failure admissions. Dictated By: SUSANA LEE/RAYA Conf#: [id number] DID#: [id number] LENORA
[2017-04-07] MEDS ORDERED: ALBUMIN HUMAN 25% 100 ML IV ONE (11:30)
[2017-04-07 14:18] LABS: ADD SCAN DIFF NO
[2017-04-07 14:21] LABS: ABNORMAL IP MESSAGE 1; BASOPHILS % 0.3 % (0.0-2.0); EOSINOPHILS # 0.1 10^3/ul (0.0-0.5); EOSINOPHILS % 1.9 % (0.0-7.0); HEMATOCRIT 25.3 % (42.0-52.0); HEMOGLOBIN 7.4 g/dl (14.0-18.0); LYMPHOCYTES # 0.5 10^3/ul (0.8-2.9); LYMPHOCYTES % 12.6 % (15.0-51.0); MEAN CORPUSCULAR HEMOGLOBIN 29.8 pg (29.0-33.0); MEAN CORPUSCULAR HGB CONC 29.2 g/dl (32.0-37.0); MEAN PLATELET VOLUME 10.5 fl (7.4-10.4); MONOCYTE # 0.1 10^3/ul (0.3-0.9); MONOCYTES % 3.6 % (0.0-11.0); NEUTROPHILS % 81.1 % (39.0-77.0); PLATELET COUNT 140 10^3/UL (140-415); RED BLOOD COUNT 2.48 10^6/ul (4.70-6.10); RED CELL DISTRIBUTION WIDTH 20.5 % (11.5-14.5); WHITE BLOOD COUNT 3.6 10^3/ul (4.8-10.8)
[2017-04-07 14:40] LABS: IRON 27 ug/dl (35-150)
[2017-04-07 14:49] LABS: TOTAL IRON BINDING CAPACITY 182 ug/dl (241-421)
[2017-04-07] MEDS: ALBUTEROL/IPRATROPIUM (NEB) 3 ML AMP HHN PRN ×2 (15:06→21:08)
--- NOTE | 2017-04-07 15:28 | RADRPT ---
Echocardiogram Report Patient Name: RELL OBANDO Gender: Male Date: 1945 Study Date: 07-Apr-2017 Buyer Liaison: Tal Persaud ERIKA Location: [facility] [place] Ref. Physician: CHRISTOPHER VASQUEZ Quality: Good Procedures: Transthoracic echocardiogram with complete 2D, M-Mode, and doppler examination. Indications: Congestive Heart Failure. NSTEMI. 2D/M Mode Doppler Measurement Value Normal Ranges Measurement Value Normal Ranges LVIDd 2D 4.7 3.5 - 5.6 cm AV Peak Gene 1.2 m/sec LVIDs 2D 4.5 2.1 - 4.1 cm AV Peak PG 6.0 mmHg FS 2D 5.9 % AI Peak PG 29.0 mmHg LVPWd 2D 1.1 0.6 - 1.1 cm AI Peak Gene 2.7 m/sec IVSd 2D 1.3 0.6 - 1.1 cm AI PHT 436.0 msec IVS/LVPW 2D 1.1 LVOT Peak Gene 0.9 m/sec AoR Diam 2D 3.1 2.0 - 3.7 cm LVOT Peak PG 4.0 mmHg LA/Ao 2D 1 0 - 1 MV E Peak Gene 1.1 m/sec EDV 2D 106.0 cm3 MV A Peak Gene 0.8 m/sec ESV 2D 88.7 cm3 MV E/A 1.4 LA Dimen 2D 3.8 2.3 - 4.0 cm MV Decel Time 176 msec MV E/A 1.4 TR Peak Gene 2.1 m/sec TR Peak PG 18.0 mmHg RVSP 26.0 mmHg Findings Left Ventricle: Normal left ventricular cavity size. Mild concentric left ventricular hypertrophy. Moderate left ventricular systolic dysfunction. Paradoxical septal motion consistent with IVCD or bundle branch block. Ejection fraction is visually estimated at 3035 %. Tissue Doppler/Mitral Doppler indices are consistent with pseudonormalization with mildly elevated left atrial pressure (Stage II diastolic dysfunction). E/E`=18. There is global hypokinesis involving all segments of the left ventricle. These segments of the LV are hypokinetic apical lateral segment, inferolateral base, inferolateral mid segment, anteroseptum base segment, anteroseptum mid segment, inferior mid segment and inferior base segment. Right Ventricle: Normal right ventricular size. Normal right ventricular systolic function. Left Atrium: There is mild enlargement of left atrium. Right Atrium: The right atrium is normal in size. Mitral Valve: Mitral valve leaflets appear mildly thickened. Mild mitral annular calcification. Moderate mitral valve regurgitation. Aortic Valve: No hemodynamically significant aortic stenosis by doppler. Aortic cusps appear moderately calcified. Trace aortic valve regurgitation. Tricuspid Valve: Normal appearance of the tricuspid valve. Unable to obtain RVSP due to minimal presence of tricuspid regurgitation. Estimated peak PA systolic pressure mmHg. There is mild tricuspid regurgitation. Pulmonic Valve: Pulmonic valve not well visualized. Pericardium: Normal pericardium with no significant pericardial effusion. Aorta: Normal aortic root. IVC: Normal size and no respiratory collapse consistent with elevated right atrial pressure. Conclusions Normal left ventricular cavity size. Mild concentric left ventricular hypertrophy. Moderate left ventricular systolic dysfunction. Paradoxical septal motion consistent with IVCD or bundle branch block. Ejection fraction is visually estimated at 30-35 %. Tissue Doppler/Mitral Doppler indices are consistent with pseudonormalization with mildly elevated left atrial pressure (Stage II diastolic dysfunction). E/E`=18. There is global hypokinesis involving all segments of the left ventricle. These segments of the LV are hypokinetic apical lateral segment. , inferolateral base. , inferolateral mid segment. , anteroseptum base segment, anteroseptum mid segment, inferior mid segment and inferior base segment. Normal right ventricular size. Normal right ventricular systolic function. There is mild enlargement of left atrium. Normal appearance of the tricuspid valve. Unable to obtain RVSP due to minimal presence of tricuspid regurgitation. Estimated peak PA systolic pressure mmHg. There is mild tricuspid regurgitation. Normal pericardium with no significant pericardial effusion. Normal size and no respiratory collapse consistent with elevated right atrial pressure. Electronically Signed By: Christopher Vasquez 07-Apr-2017 15:28:45 -0700 Patient Name: RELL OBANDO Study Date: 07-Apr-2017 [id number]
[2017-04-07] MEDS: GABAPENTIN 100 MG CAP PO SCH ×2 (21:00→21:18)
[2017-04-07] MEDS: ATORVASTATIN 40 MG TAB PO SCH (21:15)
[2017-04-07] MEDS: ASPIRIN (EC) 81 MG TAB PO SCH (21:15)
[2017-04-07] MEDS: CLOPIDOGREL 75 MG TAB PO SCH (21:15)
[2017-04-07] MEDS: DOCUSATE SODIUM 100 MG CAP PO PRN (21:31)
[2017-04-07] MEDS: ZOLPIDEM 5 MG TAB PO PRN (21:31)
[2017-04-08] VITALS (19 sets, daily range): BP systolic 118–139; BP diastolic 52–65; PULSE 69–90; RESP 18–20
[2017-04-08] MEDS: ALBUTEROL/IPRATROPIUM (NEB) 3 ML AMP HHN PRN ×2 (03:01→16:55)
[2017-04-08] MEDS: ROPINIROLE 0.25 MG TAB PO SCH ×3 (05:40→20:26)
[2017-04-08] MEDS: PANTOPRAZOLE (EC) 40 MG TAB PO SCH ×2 (05:40→17:41)
[2017-04-08] MEDS ORDERED: ALBUMIN HUMAN 25% 100 ML IV PRN (07:00)
--- NOTE | 2017-04-08 07:28 | PN ---
Date/Time of Note Date/Time of Note DATE: 04/08/17 TIME: 07:25 Assessment/Plan VTE Prophylaxis VTE Prophylaxis Intervention: other Lines/Catheters IV Catheter Type (from Nrsg): [place] Urinary Cath still in place: No (n/a) Assessment/Plan Assessment/Plan 1. CKD, now being dialyzed. 2. Severe ASHD, cath yesterday->report reviewed and plans for transfer to [facility] noted. 3. Anemia, stable, if Hct<25 will consider transfusion. 4. No evid chf now. Subjective 24 Hr Interval Summary Respiratory: shortness of breath (mild, unchanged) Cardiovascular: No chest pain Gastrointestinal: no complaints Genitourinary: no complaints Exam/Review of Systems Vital Signs Vitals Vital Signs Date Time Temp Pulse Resp B/P Pulse Ox O2 Delivery O2 Flow Rate FiO2 04/08/17 06:27 81 18 119/60 100 Nasal Cannula 4.0 04/08/17 03:15 97.0 Intake and Output 04/07/17 04/07/17 04/08/17 15:00 23:00 07:00 Intake Total 400 ml 220 ml 220 ml Output Total 500 ml 0 ml Balance -100 ml 220 ml 220 ml Exam Neck: No jvd Respiratory: clear to auscultation Cardiovascular: regular rate and rhythm Gastrointestinal: soft, No tender (and no calf tend bilat) Extremities: No edema Results Result Diagram: 04/07/17 1400 04/06/17 0545 Results 24 hrs Laboratory Tests Test 04/07/17 14:00 White Blood Count 3.6 #L Red Blood Count 2.48 L Hemoglobin 7.4 L Hematocrit 25.3 L Mean Corpuscular Volume 102.0 H Mean Corpuscular Hemoglobin 29.8 Mean Corpuscular Hemoglobin Concent 29.2 L Red Cell Distribution Width 20.5 H Platelet Count 140 Mean Platelet Volume 10.5 H Neutrophils % 81.1 H Lymphocytes % 12.6 L Monocytes % 3.6 Eosinophils % 1.9 Basophils % 0.3 Nucleated Red Blood Cells % 0.0 Neutrophils # 3.0 Lymphocytes # 0.5 L Monocytes # 0.1 L Eosinophils # 0.1 Basophils # 0.0 Nucleated Red Blood Cells # 0.0 Iron Level 27 L Total Iron Binding Capacity 182 L Percent Iron Saturation 15 L Ferritin 729.0 H Medications Medications Current Medications Allopurinol (Zyloprim) 100 mg DAILY PO Last administered on 04/07/17 10:33; Admin Dose 100 MG; Start 04/01/17 at 13:00 Alprazolam (Xanax) 0.25 mg QHS PRN PO ANXIETY; Start 04/01/17 at 13:00 Aspirin (Halfprin) 81 mg QHS PO Last administered on 04/07/17 21:15; Admin Dose 81 MG; Start 04/01/17 at 21:00 Atorvastatin Calcium (Lipitor) 40 mg QHS PO Last administered on 04/07/17 21: 15; Admin Dose 40 MG; Start 04/01/17 at 21:00 Carisoprodol (Soma) 175 mg DAILY PRN PO MUSCLE SPASMS; Start 04/01/17 at 13:00 Clopidogrel Bisulfate (plaVIX) 75 mg QHS PO Last administered on 04/07/17 21: 15; Admin Dose 75 MG; Start 04/01/17 at 21:00 Gabapentin (Neurontin) 100 mg QHS PO Last administered on 04/02/17 21:06; Admin Dose 100 MG; Start 04/01/17 at 21:00 Acetaminophen/ Hydrocodone Bitart ([place] (7.5-325)) 1 tab Q6 PRN PO SEVERE PAIN LEVEL 7-10; Start 04/01/17 at 13:00 Losartan Potassium (Cozaar) 25 mg DAILY PO Last administered on 04/01/17 13:41 ; Admin Dose 25 MG; Start 04/01/17 at 13:00 Nitroglycerin (Nitroglycerin ([place])) 1 spray Q5M PRN TL CHEST PAIN Last administered on 04/04/17 02:50; Admin Dose 1 SPRAY; Start 04/01/17 at 13:00 Pantoprazole (Protonix Tab) 40 mg BID@,18 PO Last administered on 04/08/17 05:40; Admin Dose 40 MG; Start 04/01/17 at 18:00 Ranolazine (Ranexa) 500 mg Q12 PO Last administered on 04/07/17 21:10; Admin Dose 500 MG; Start 04/01/17 at 21:00 Ropinirole HCl (Requip) 0.5 mg TID PO Last administered on 04/08/17 05:40; Admin Dose 0.5 MG; Start 04/01/17 at 13:00 Ondansetron HCl (Zofran Inj) 4 mg Q6H PRN IV NAUSEA AND/OR VOMITING Last administered on 04/07/17 06:08; Admin Dose 4 MG; Start 04/01/17 at 13:00 Heparin Sodium (Porcine) (Heparin (5000 Units/0.5 ml)) 5,000 unit Q12 SC Last administered on 04/01/17 13:41; Admin Dose 5,000 UNIT; Start 04/01/17 at 14:00 Acetaminophen (Tylenol Tab) 650 mg Q6H PRN PO PAIN LEVEL 1-3 OR FEVER Last administered on 04/01/17 23:52; Admin Dose 650 MG; Start 04/01/17 at 13:30 Docusate Sodium (Colace) 100 mg Q12H PRN PO CONSTIPATION Last administered on 21:31; Admin Dose 100 MG; Start 04/01/17 at 13:30 Zolpidem Tartrate (Ambien) 5 mg QHS PRN PO SLEEP Last administered on 21:31; Admin Dose 5 MG; Start 04/01/17 at 13:30 Epoetin Lyle (Epogen (Esrd)) 10,000 units MoWeFr@17 SC Last administered on 18:15; Admin Dose 10,000 UNITS; Start 04/03/17 at 17:00 Calcium Carbonate (Tums) 500 mg Q4H PRN PO heart burn Last administered on 04/05 23:55; Admin Dose 500 MG; Start 04/06/17 at 00:00 Miscellaneous Information (* Miscellaneous Pharmacy Order) HOLD all METFORMIN ... ONCE XX ; Start 04/07/17 at 08:30; Stop 04/09/17 at 08:29 Bisoprolol Fumarate (Zebeta) 5 mg DAILY PO ; Start 04/08/17 at 09:00 ALONZO SERRA MD Apr 08, 2017 07:28
[2017-04-08 07:42] LABS: ADD SCAN DIFF NO
[2017-04-08 07:52] LABS: BASOPHILS % 0.3 % (0.0-2.0); EOSINOPHILS # 0.1 10^3/ul (0.0-0.5); EOSINOPHILS % 3.1 % (0.0-7.0); HEMATOCRIT 24.2 % (42.0-52.0); HEMOGLOBIN 7.1 g/dl (14.0-18.0); LYMPHOCYTES # 0.7 10^3/ul (0.8-2.9); LYMPHOCYTES % 18.6 % (15.0-51.0); MEAN CORPUSCULAR HEMOGLOBIN 29.8 pg (29.0-33.0); MEAN CORPUSCULAR HGB CONC 29.3 g/dl (32.0-37.0); MEAN CORPUSCULAR VOLUME 101.7 fl (82.0-101.0); MEAN PLATELET VOLUME 11.3 fl (7.4-10.4); MONOCYTE # 0.1 10^3/ul (0.3-0.9); MONOCYTES % 3.6 % (0.0-11.0); NEUTROPHIL # 2.9 10^3/ul (1.6-7.5); NEUTROPHILS % 74.1 % (39.0-77.0); PLATELET COUNT 132 10^3/UL (140-415); RED BLOOD COUNT 2.38 10^6/ul (4.70-6.10); RED CELL DISTRIBUTION WIDTH 20.5 % (11.5-14.5); WHITE BLOOD COUNT 3.9 10^3/ul (4.8-10.8)
[2017-04-08] MEDS: SEVELAMER 800 MG TAB PO SCH ×3 (07:55→17:01)
[2017-04-08] MEDS: HEPARIN 5,000 UNIT/0.5 ML VIAL SC SCH ×2 (09:00→20:27)
[2017-04-08] MEDS ORDERED: BISOPROLOL 5 MG TAB PO SCH (09:00)
[2017-04-08] MEDS: LOSARTAN 25 MG TAB PO SCH (09:00)
--- NOTE | 2017-04-08 09:01 | DS ---
Date/Time of Note Date/Time of Note DATE: 04/08/17 TIME: 09:00 Discharge Summary Admission/Discharge Info Admit Date/Time Apr 01, 2017 at 10:55 Discharge Date/Time Final Diagnosis NSTEMI Ischemic Cardiomyopathy Chronic systolic heart failure End stage renal disease on dialysis Patient Condition: Stable Hospital Course Mr. Clemens is a 71 y.o. man with h/o of ESRD s/p failed renal txp, on iHD via L fistula, ischemic cardiomyopathy, NYHA III Class C, severe multi vessel CAD s/p numerous PCI including overlapping stents from Left main to Mid LAD, bifurcating with D1, and proximal/mid RCA, most recently of distal RCA with ANURAG x1 in 11/2016 after presenting with NSTEMI. Pt unfortunately has done poorly since that time with recurrent admissions in January, February, and now March due to dyspnea/acute on chronic heart failure. Pt admitted 03/19 03/31 for CHF, noted to have small troponin leak but attributed to pt chronic disease of occluded LCx and diffusely disease D1 sub branch. Pt also with fever at that time attributed to bronchitis and improved with iv steroids/antibiotics. Pt discharged home however returned on 04/01 with severe weakness. Pt with elevated troponin to 2.8. Patient taken to mobile lab technician and found to have patent LM/LAD stents, D1 stent, RCA stents. He has moderate diffuse disease of mid and distal RCA as well as mid LAD. There has been interval occlusion of diffusely disease D1 sub branch which is felt to be culprit for NSTEMI. He does also have chronically occluded LCx artery jailed by LM stent and fed by weak L-L and R-L collaterals. Technically difficult repeat echo shows continued ICM with LVEF 30 -35%. LVEDP remains 22 despite dialysis. Pt continues with severe dyspnea on exertion, mostly staying in bed while inpt. At this point, it appears patient has failed medical therapy alone given recurrent CHF admissions and has no targets for revascularization in regards to his coronary disease. He will need transfer to [facility] for advanced heart failure management and consideration for placement of PRESS OPERATOR APPRENTICE-D device placement which may improve his heart failure symptoms preventing further readmission. Home Meds Active Scripts Losartan Potassium* (Losartan Potassium*) 25 Mg Tablet, 25 MG PO DAILY for 90 Days, TAB 3 Refills Prov:POP JOHNSON MD 02/06/17 Pantoprazole* (Pantoprazole*) 40 Mg Tablet.dr, 40 MG PO Q12 for 60 Days Prov:ALONZO SERRA MD 12/05/16 Reported Medications Tiotropium [place] (Spiriva Respimat) 4 Gm Mist.inhal, 2 PUFF INHALATION DAILY, #1 INHALER 01/28/17 Nitroglycerin* (Nitroglycerin* [place]) 400 Mcg/[place] - 12 Gm [place], 1 SPRAY TL Q5M Y for CHEST PAIN, SPRAY 01/28/17 Ranolazine* (Ranexa*) 500 Mg Tab.sr.12h, 500 MG PO Q12, TAB 01/28/17 Sevelamer Carbonate* (Renvela*) 800 Mg Tablet, 0.8 GM PO WITH MEALS, TAB 01/28/17 Zolpidem Tartrate* (Zolpidem Tartrate*) 5 Mg Tablet, 7.5 MG PO QHS Y for INSOMNIA, #30 TAB 12/01/16 Ropinirole Hcl* (Ropinirole Hcl*) 0.5 Mg Tablet, 0.5 MG PO TID, TAB 12/01/16 Clopidogrel Bisulfate (Clopidogrel) 75 Mg Tablet, 75 MG PO QHS, #30 TAB 12/01/16 Hydrocodone/Acetaminophen ([place] 7.5-325 Tablet) 1 Each Tablet, 1 EACH PO DAILY Y for SEVERE PAIN LEVEL 7-10, TAB 12/01/16 Gabapentin* (Gabapentin*) 100 Mg Capsule, 100 MG PO QHS, #90 CAP 12/01/16 Carisoprodol* (Carisoprodol*) 350 Mg Tablet, 175 MG PO DAILY Y for MUSCLE SPASMS , TAB 12/01/16 Atorvastatin* (Atorvastatin*) 40 Mg Tablet, 40 MG PO QHS, #30 TAB 12/01/16 Aspirin* (Aspirin* EC) 81 Mg Tablet.dr, 81 MG PO QHS, TAB 12/01/16 Alprazolam* (Alprazolam*) 0.25 Mg Tablet, 0.25 MG PO QHS Y for ANXIETY, TAB 12/01/16 Allopurinol* (Allopurinol*) 100 Mg Tablet, 100 MG PO DAILY, TAB 12/01/16 Primary Care Provider Pop Johnson MD Pending Labs Laboratory Tests Test 04/07/17 14:00 04/08/17 06:45 White Blood Count 3.610^3/ul (4.8-10.8) 3.910^3/ul (4.8-10.8) Red Blood Count 2.4810^6/ul (4.70-6.10) 2.3810^6/ul (4.70-6.10) Hemoglobin 7.4g/dl (14.0-18.0) 7.1g/dl (14.0-18.0) Hematocrit 25.3% (42.0-52.0) 24.2% (42.0-52.0) Mean Corpuscular Volume 102.0fl (82.0-101.0) 101.7fl (82.0-101.0) Mean Corpuscular Hemoglobin 29.8pg (29.0-33.0) 29.8pg (29.0-33.0) Mean Corpuscular Hemoglobin Concent 29.2g/dl (32.0-37.0) 29.3g/dl (32.0-37.0) Red Cell Distribution Width 20.5% (11.5-14.5) 20.5% (11.5-14.5) Platelet Count 39644^3/UL (140-415) 78222^3/UL (140-415) Mean Platelet Volume 10.5fl (7.4-10.4) 11.3fl (7.4-10.4) Neutrophils % 81.1% (39.0-77.0) 74.1% (39.0-77.0) Lymphocytes % 12.6% (15.0-51.0) 18.6% (15.0-51.0) Monocytes % 3.6% (0.0-11.0) 3.6% (0.0-11.0) Eosinophils % 1.9% (0.0-7.0) 3.1% (0.0-7.0) Basophils % 0.3% (0.0-2.0) 0.3% (0.0-2.0) Nucleated Red Blood Cells % 0.0/100WBC (0.0-0.0) 0.0/100WBC (0.0-0.0) Neutrophils # 3.010^3/ul (1.6-7.5) 2.910^3/ul (1.6-7.5) Lymphocytes # 0.510^3/ul (0.8-2.9) 0.710^3/ul (0.8-2.9) Monocytes # 0.110^3/ul (0.3-0.9) 0.110^3/ul (0.3-0.9) Eosinophils # 0.110^3/ul (0.0-0.5) 0.110^3/ul (0.0-0.5) Basophils # 0.010^3/ul (0.0-0.1) 0.010^3/ul (0.0-0.1) Nucleated Red Blood Cells # 0.010^3/ul (0.0-0.0) 0.010^3/ul (0.0-0.0) Iron Level 27ug/dl (35-150) Total Iron Binding Capacity 182ug/dl (241-421) Percent Iron Saturation 15% SAT (22-52) Ferritin 729.0ng/ml (11.1-264.0) SUSANA VASQUEZ Apr 08, 2017 09:01
[2017-04-08] MEDS: ALLOPURINOL 100 MG TAB PO SCH (10:13)
[2017-04-08] MEDS: RANOLAZINE (SR) 500 MG TAB PO SCH ×2 (10:15→20:54)
[2017-04-08] MEDS: HOLD all METFORMIN and METFORMIN CONTAINING medications for 48 hours post procedure. Chec XX SCH (10:23)
[2017-04-08] MEDS: EPOETIN 10000 UNITS/1 ML INJ (ESRD) SC SCH (17:41)
[2017-04-08] MEDS: DOCUSATE SODIUM 100 MG CAP PO PRN (20:26)
[2017-04-08] MEDS: CLOPIDOGREL 75 MG TAB PO SCH (20:26)
[2017-04-08] MEDS: ATORVASTATIN 40 MG TAB PO SCH (20:26)
[2017-04-08] MEDS: ASPIRIN (EC) 81 MG TAB PO SCH (20:26)
[2017-04-08] MEDS: GABAPENTIN 100 MG CAP PO SCH (20:27)
== END 2017-04-08 22:20 | disposition short-term general hospital (02) | DRG 280 ==
LOC: E/R 08:09 → TEL 10:55
PROVIDERS: ADMIT Internal Medicine; ATTEND Internal Medicine
PROC: 5A1D60Z (ICD-10-PCS; principal; 2017-04-01)
PROC: 4A023N7 Measurement of Cardiac Sampling and Pressure, Left Heart, Percutaneous Approach (ICD-10-PCS; 2017-04-07)
PROC: B2011ZZ Plain Radiography of Multiple Coronary Arteries using Low Osmolar Contrast (ICD-10-PCS; 2017-04-07)
DX: I21.4 Non-ST elevation (NSTEMI) myocardial infarction (principal); N18.6 End stage renal disease; I50.43 Acute on chronic combined systolic (congestive) and diastolic (congestive) heart failure; T86.12 Kidney transplant failure; I25.82 Chronic total occlusion of coronary artery; T82.855A Stenosis of coronary artery stent, initial encounter; E87.5 Hyperkalemia; I13.2 Hypertensive heart and chronic kidney disease with heart failure and with stage 5 chronic kidney disease, or end stage renal disease; Z94.0 Kidney transplant status; I25.5 Ischemic cardiomyopathy; E11.9 Type 2 diabetes mellitus without complications; D64.9 Anemia, unspecified; M10.9 Gout, unspecified; E78.5 Hyperlipidemia, unspecified; I95.1 Orthostatic hypotension; I25.2 Old myocardial infarction; Z95.5 Presence of coronary angioplasty implant and graft; I25.10 Atherosclerotic heart disease of native coronary artery without angina pectoris; J45.909 Unspecified asthma, uncomplicated; I44.7 Left bundle-branch block, unspecified; Z99.2 Dependence on renal dialysis
CPT/HCPCS: 36415; 71010; 80048; 80053; 80076; 82550; 82553; 82728; 83540; 83605; 83735; 83880; 84100; 84443; 84484; 85025; 85610; 85730; 86850; 86870; 86900; 86901; 86902; 86920; 87040; 87081; 90935; 93005; 93306; 93458; 94640; 94664; 96372; 96374; 96375; 97162; C1760; C1769; C1887; C1894; J0692; J1644; J2250; J2405; J3010; J7030; J7040; P9047; Q4081; Q9967

== ENCOUNTER 2017-04-24 08:40 | Inpatient (IN) | payer MEDICARE, OTHER ==
[~2017-04-24] VITALS: Ht 170.2 cm; Wt 76.8 kg
[2017-04-24] VITALS (12 sets, daily range): BP systolic 98–144; BP diastolic 33–62; PULSE 93–108; RESP 18–19; Ht 170.2 cm; Wt 76.8 kg
[2017-04-24 09:08] LABS: ADD SCAN DIFF NO
[2017-04-24 09:14] LABS: BASOPHILS % 0.6 % (0.0-2.0); EOSINOPHILS # 0.2 10^3/ul (0.0-0.5); EOSINOPHILS % 3.5 % (0.0-7.0); HEMATOCRIT 27.8 % (42.0-52.0); HEMOGLOBIN 8.4 g/dl (14.0-18.0); LYMPHOCYTES # 1.1 10^3/ul (0.8-2.9); LYMPHOCYTES % 21.6 % (15.0-51.0); MEAN CORPUSCULAR HGB CONC 30.2 g/dl (32.0-37.0); MEAN CORPUSCULAR VOLUME 95.9 fl (82.0-101.0); MEAN PLATELET VOLUME 9.7 fl (7.4-10.4); MONOCYTE # 0.3 10^3/ul (0.3-0.9); MONOCYTES % 6.2 % (0.0-11.0); NEUTROPHIL # 3.3 10^3/ul (1.6-7.5); NEUTROPHILS % 67.7 % (39.0-77.0); PLATELET COUNT 201 10^3/UL (140-415); RED CELL DISTRIBUTION WIDTH 17.8 % (11.5-14.5); WHITE BLOOD COUNT 4.9 10^3/ul (4.8-10.8)
[2017-04-24 09:25] LABS: INR 1.11; PROTIME 14.3 Sec (12.2-14.2); PT RATIO 1.1
[2017-04-24 09:26] LABS: PARTIAL THROMBOPLASTIN TIME 41.6 Sec (25.0-35.0)
[2017-04-24 09:30] LABS: CALCIUM 9.3 mg/dl (8.4-10.2); CREATININE 10.62 mg/dl (0.61-1.24)
--- NOTE | 2017-04-24 09:32 | RADRPT ---
PROCEDURE: XR Chest. CLINICAL INDICATION: Chest pain. TECHNIQUE: Single frontal view. COMPARISON: 04/01/2017. FINDINGS: There is mild atelectasis at the lung bases. The lungs are otherwise clear. The heart is mildly enlarged. There is calcification in the aorta consistent with atherosclerosis. There is a right-sided biventricular pacemaker/internal cardiac defibrillator. There is no pleural effusion. There is no pneumothorax. IMPRESSION: 1. Mild atelectasis at the lung bases. 2. Mild cardiomegaly and atherosclerosis. 3. Biventricular pacemaker/internal cardiac defibrillator. 4. Otherwise unremarkable study. RPTAT: QQ .Lazaro Zavaleta MD, MD Date Time Electronically viewed and signed by .Lazaro Zavaleta MD, MD on 04/24/2017 09:31 .R/
[2017-04-24 09:42] LABS: TROPONIN-I 0.025 ng/ml (0.00-0.12)
--- NOTE | 2017-04-24 09:55 | ERA ---
ER Documentation Chief Complaint Date/Time DATE: 04/24/17 TIME: 09:52 Chief Complaint CAME IN VIA EMS FOR SOB AND MISSED DIALYSIS HPI This 71-year-old male presents to emergency room with increasing shortness of breath for the last couple days. He missed dialysis on Thursday and again missed today because of transportation issues. He denies any specific chest pain. He has had no fever and chills. ROS All systems reviewed and are negative except as per history of present illness. Medications Home Meds Active Scripts Losartan Potassium* (Losartan Potassium*) 25 Mg Tablet, 25 MG PO DAILY for 90 Days, TAB 3 Refills Prov:POP JOHNSON MD 02/06/17 Pantoprazole* (Pantoprazole*) 40 Mg Tablet., 40 MG PO Q12 for 60 Days Prov:ALONZO SERRA MD 12/05/16 Reported Medications Multivit/Ca Carb/B Cmplx/Fa* (Gi-Calvin*) 1 Tab Tab, 1 TAB PO DAILY, TAB TAKE AFTER DIALYSIS (NEPHRO-CALVIN) 04/24/17 Esomeprazole Mag Trihydrate (Nexium) 40 Mg Capsule.dr, 40 MG PO QAM, #30 CAP 04/24/17 Tiotropium [place] (Spiriva Respimat) 4 Gm Mist.inhal, 2 PUFF INHALATION DAILY, #1 INHALER 01/28/17 Nitroglycerin* (Nitroglycerin* [place]) 400 Mcg/[place] - 12 Gm [place], 1 SPRAY TL Q5M Y for CHEST PAIN, SPRAY 01/28/17 Ranolazine* (Ranexa*) 500 Mg Tab.sr.12h, 500 MG PO Q12, TAB 01/28/17 Sevelamer Carbonate* (Renvela*) 800 Mg Tablet, 0.8 GM PO WITH MEALS, TAB 01/28/17 Zolpidem Tartrate* (Zolpidem Tartrate*) 5 Mg Tablet, 7.5 MG PO QHS Y for INSOMNIA, #30 TAB 12/01/16 Ropinirole Hcl* (Ropinirole Hcl*) 0.5 Mg Tablet, 0.5 MG PO TID, TAB 12/01/16 Clopidogrel Bisulfate (Clopidogrel) 75 Mg Tablet, 75 MG PO QHS, #30 TAB 12/01/16 Hydrocodone/Acetaminophen ([place] 7.5-325 Tablet) 1 Each Tablet, 1 EACH PO DAILY Y for SEVERE PAIN LEVEL 7-10, TAB 12/01/16 Atorvastatin* (Atorvastatin*) 40 Mg Tablet, 40 MG PO QHS, #30 TAB 12/01/16 Aspirin* (Aspirin* EC) 81 Mg Tablet.dr, 81 MG PO QHS, TAB 12/01/16 Alprazolam* (Alprazolam*) 0.25 Mg Tablet, 0.25 MG PO QHS Y for ANXIETY, TAB 12/01/16 Allopurinol* (Allopurinol*) 100 Mg Tablet, 100 MG PO DAILY, TAB 12/01/16 Discontinued Reported Medications Gabapentin* (Gabapentin*) 100 Mg Capsule, 100 MG PO QHS, #90 CAP 12/01/16 Carisoprodol* (Carisoprodol*) 350 Mg Tablet, 175 MG PO DAILY Y for MUSCLE SPASMS , TAB 12/01/16 Allergies Allergies: Coded Allergies: No Known Allergy (Unverified , 04/24/17) PT. WAS ON BICILLIN BEFORE, WAS TOLD BY THE DOCTOR THAT HE IS NOT ALLERGIC TO PCN. PMhx/Soc Anesthesia Reaction: No Hx Neurological Disorder: No Hx Respiratory Disorders: No Hx Cardiac Disorders: Yes (CHF, HTN,CARDIOMYOPATHY, DE WITH STENTS PLACEMENT) Hx Psychiatric Problems: No Hx Miscellaneous Medical Probl: Yes (ESRD on HD, cardiomyopathy, EF 30-35%, HLD , CAD, HTN) Hx Alcohol Use: No Hx Substance Use: No Hx Tobacco Use: No Smoking Status: Never smoker Physical Exam Vitals Vital Signs Date Time Temp Pulse Resp B/P Pulse Ox O2 Delivery O2 Flow Rate FiO2 04/24/17 08:58 Nasal Cannula 2 04/24/17 08:53 98.3 93 18 138/83 100 04/24/17 08:53 Nasal Cannula 2.0 Physical Exam Const: [] Mild distress Head: Atraumatic Eyes: Normal Conjunctiva ENT: Normal External Ears, Nose and Mouth. Neck: Full range of motion..~ No meningismus. Resp: Decreased bibasilar breath sounds Cardio: Regular rate and rhythm, no murmurs Abd: Soft, non tender, non distended. Normal bowel sounds Skin: No petechiae or rashes Back: No midline or flank tenderness Ext: No cyanosis, bilateral lower extremity edema Neur: Awake and alert Psych: Normal Mood and Affect Result Diagram: 04/24/17 0900 04/24/17 0900 Results 24 hrs Laboratory Tests Test 04/24/17 09:00 White Blood Count 4.910^3/ul Red Blood Count 2.9010^6/ul Hemoglobin 8.4g/dl Hematocrit 27.8% Mean Corpuscular Volume 95.9fl Mean Corpuscular Hemoglobin 29.0pg Mean Corpuscular Hemoglobin Concent 30.2g/dl Red Cell Distribution Width 17.8% Platelet Count 68494^3/UL Mean Platelet Volume 9.7fl Neutrophils % 67.7% Lymphocytes % 21.6% Monocytes % 6.2% Eosinophils % 3.5% Basophils % 0.6% Nucleated Red Blood Cells % 0.0/100WBC Neutrophils # 3.310^3/ul Lymphocytes # 1.110^3/ul Monocytes # 0.310^3/ul Eosinophils # 0.210^3/ul Basophils # 0.010^3/ul Nucleated Red Blood Cells # 0.010^3/ul Prothrombin Time 14.3Sec Prothrombin Time Ratio 1.1 INR International Normalized Ratio 1.11 Activated Partial Thromboplast Time 41.6Sec Sodium Level 140mmol/L Potassium Level 5.0mmol/L Chloride Level 99mmol/L Carbon Dioxide Level 25mmol/L Anion Gap 21 Blood Urea Nitrogen 71mg/dl Creatinine 10.62mg/dl Glucose Level 91mg/dl Calcium Level 9.3mg/dl Troponin I 0.025ng/ml Current Medications Medications (Trade) Dose Ordered Sig/Leonardo Route PRN Reason Start Time Stop Time Status Last Admin Dose Admin Ondansetron HCl (Zofran Inj) 4 mg ER BRIDGE PRN IV NAUSEA AND/OR VOMITING 04/24/17 12:00 04/25/17 11:59 Acetaminophen (Tylenol Tab) 650 mg ER BRIDGE PRN PO MILD PAIN/FEVER 04/24/17 12:00 04/25/17 11:59 Procedures/MDM Dyspnea likely secondary to fluid overload from missing 2 dialysis appointments. Patient was immediately placed on oxygen which did make his shortness of breath decreased but he still had significant shortness of breath. No hyperkalemia currently. Patient does have anemia that is consistent with prior levels. Is unable to get back into [facility] today but I believe he would be sent back to the emergency room and believe he does need admission for urgent dialysis for fluid overload and dyspnea. No chest pain. No signs of acute coronary syndrome. Troponin will likely be trended on the floor. Spoke with Dr. Cook will be admitting the patient because he is covering for Dr. Johnson Chest x-ray interpretation: Likely left pleural effusion, I see no infiltrates, no pneumothorax, no widened mediastinum, no fractures EKG interpretation: Normal sinus rhythm rate of 84, left axis deviation, no ST or T-wave changes concerning for acute ischemia, nonspecific intraventricular conduction block, Q waves in inferior leads monitoring coordinator interpretation: Normal sinus rhythm without arrhythmia. Departure Diagnosis: Primary Impression: Fluid overload Additional Impressions: Acute dyspnea Anemia Acute on chronic renal failure Condition: Serious SHREYAS CAMPA DO Apr 24, 2017 09:55
[2017-04-24] MEDS ORDERED: ESOM40CA PO (10:25)
[2017-04-24] MEDS ORDERED: NEPH PO (10:31)
[2017-04-24] MEDS ORDERED: ONDANSETRON 4 MG INJ IV PRN (12:00)
[2017-04-24] MEDS ORDERED: ACETAMINOPHEN 325 MG TAB PO PRN ×2 (12:00→13:30)
[2017-04-24] MEDS ORDERED: ZOLPIDEM 5 MG TAB PO PRN ×3 (13:00→23:00)
[2017-04-24] MEDS ORDERED: NITROGLYCERIN AEROSOL (4.9 GM) TL PRN ×2 (13:00→23:00)
[2017-04-24] MEDS ORDERED: ROPINIROLE 0.25 MG TAB PO SCH (13:00)
[2017-04-24] MEDS: LOSARTAN 25 MG TAB PO SCH (13:00)
[2017-04-24] MEDS ORDERED: HYDROCODONE/APAP (7.5/325) TAB PO PRN ×2 (13:00→23:00)
--- NOTE | 2017-04-24 13:16 | HP ---
Date/Time of Note Date/Time of Note DATE: 04/24/17 TIME: 13:09 Assessment/Plan VTE Prophylaxis VTE Prophylaxis Intervention: other Lines/Catheters IV Catheter Type (from Nrsg): Saline Lock Assessment/Plan Assessment/Plan 1. ASHD with rec CHF, to be dialyzed today and next HD as OP thursday 2. DM, diet controlled 3. GERD 4. Anemia sec to ESRD 5. Recent placement of biventric pacemaker HPI/ROS Admit Date/Time Admit Date/Time Apr 24, 2017 at 12:10 Hx of Present Illness Admitted via the ER with mild-mod sob as missed his reg dialysis 2 d ago and was not able to have HD in his unit today. Recent admit to [facility] for placement of biventric pacemaker and eas dc from [facility] on thursday where he indicates dialysis was not done. He denies chest, abd pain, n or v. ROS Constitutional: No chills, No diaphoresis ENT: No congestion Respiratory: shortness of breath, No cough Cardiovascular: No chest pain Gastrointestinal: no complaints Genitourinary: no complaints Neurologic: headache, No focal-weakness PMH/Family/Social Past Medical History Medical History: other (Hx CAD with [place] 12/05 and subsequent stent placement, AODM diet controlled, Rec CHF, HJx GERD, hx restless leg syndrome) Family History Significant Family History: other (see prior h and p) Social History Smoking Status: Never smoker Drug Use: none Exam/Review of Systems Vital Signs Vitals Vital Signs Date Time Temp Pulse Resp B/P Pulse Ox O2 Delivery O2 Flow Rate FiO2 04/24/17 12:26 74 20 129/53 97 Room Air 04/24/17 08:58 2 04/24/17 08:53 98.3 Exam Neck: No jvd Respiratory: clear to auscultation, diminished breath sounds (few rales bases bilat) Cardiovascular: regular rate and rhythm Gastrointestinal: No hepatomegaly, No splenomegaly Extremities: No edema (and no calf tend) Labs Result Diagram: 04/24/17 0900 04/24/17 0900 Medications Medications Current Medications Allopurinol (Zyloprim) 100 mg DAILY PO ; Start 04/25/17 at 09:00 Alprazolam (Xanax) 0.25 mg QHS PRN PO ANXIETY; Start 04/24/17 at 13:00 Aspirin (Halfprin) 81 mg QHS PO ; Start 04/24/17 at 21:00 Atorvastatin Calcium (Lipitor) 40 mg QHS PO ; Start 04/24/17 at 21:00 Clopidogrel Bisulfate (plaVIX) 75 mg QHS PO ; Start 04/24/17 at 21:00 Acetaminophen/ Hydrocodone Bitart ([place] (7.5-325)) 1 tab DAILY PRN PO SEVERE PAIN LEVEL 7-10; Start 04/24/17 at 13:00 Losartan Potassium (Cozaar) 25 mg DAILY PO ; Start 04/24/17 at 13:00 Multivit/Ca Carb/ B Cmplx/FA/Prenat (Gi-Evelio) 1 tab DAILY PO ; Start 04/24/17 at 13:00 Nitroglycerin (Nitroglycerin ([place])) 1 spray Q5M PRN TL CHEST PAIN; Start 04/24 at 13:00 Pantoprazole (Protonix Tab) 40 mg Q12 PO ; Start 04/24/17 at 13:00 Ranolazine (Ranexa) 500 mg Q12 PO ; Start 04/24/17 at 13:00 Ropinirole HCl (Requip) 0.5 mg TID PO ; Start 04/24/17 at 13:00 Zolpidem Tartrate (Ambien) 7.5 mg QHS PRN PO INSOMNIA; Start 04/24/17 at 13:00 ALONZO SERRA MD Apr 24, 2017 13:16
[2017-04-24] MEDS ORDERED: NACL 0.9% 3 ML SYG IV SCH (13:30)
[2017-04-24] MEDS ORDERED: HYDROCODONE/APAP (5/325) TAB PO PRN (13:30)
[2017-04-24] MEDS: PANTOPRAZOLE (EC) 40 MG TAB PO SCH ×3 (14:05→20:27)
[2017-04-24] MEDS: RANOLAZINE (SR) 500 MG TAB PO SCH ×3 (14:05→20:27)
[2017-04-24] MEDS: MULTIVIT/CA CARB/B CMPLX/FA TAB PO SCH (14:05)
[2017-04-24] MEDS: EPOETIN 10000 UNITS/1 ML INJ (ESRD) SC SCH (16:02)
[2017-04-24] MEDS: ALBUMIN HUMAN 25% 50 ML IV PRN (16:02)
[2017-04-24] MEDS: ROPINIROLE 1 MG TAB PO SCH (16:52)
[2017-04-24] MEDS: SEVELAMER CARBONATE 0.8 GM PKT PO SCH ×2 (16:52→16:54)
[2017-04-24] MEDS ORDERED: SOD CHLORIDE 0.9% 250 ML IV ONE (17:30)
[2017-04-24] MEDS: SEVELAMER 800 MG TAB PO SCH (18:05)
[2017-04-24] MEDS: ALBUTEROL/IPRATROPIUM (NEB) 3 ML AMP HHN PRN ×2 (19:18→23:24)
[2017-04-24] MEDS: ATORVASTATIN 40 MG TAB PO SCH (20:27)
[2017-04-24] MEDS: ASPIRIN (EC) 81 MG TAB PO SCH (20:27)
[2017-04-24] MEDS: CLOPIDOGREL 75 MG TAB PO SCH (20:27)
[2017-04-24] MEDS: ALPRAZOLAM 0.25 MG TAB PO PRN (21:17)
[2017-04-24] MEDS ORDERED: LOSARTAN 25 MG TAB PO SCH (23:00)
[2017-04-24] MEDS ORDERED: ALPRAZOLAM 0.25 MG TAB PO PRN (23:00)
[2017-04-24] MEDS ORDERED: VITAMIN A & D 5 GM OINT PACKET TOP ONE (23:22)
[2017-04-25] VITALS (20 sets, daily range): BP systolic 102–133; BP diastolic 42–63; PULSE 94–111; RESP 18–20
[2017-04-25] MEDS: ALBUTEROL/IPRATROPIUM (NEB) 3 ML AMP HHN PRN ×5 (03:19→20:54)
[2017-04-25] MEDS: ROPINIROLE 1 MG TAB PO SCH ×4 (05:30→21:11)
[2017-04-25] MEDS ORDERED: PANTOPRAZOLE (EC) 40 MG TAB PO SCH ×2 (06:00→09:00)
[2017-04-25] MEDS: SEVELAMER 800 MG TAB PO SCH ×4 (08:00→18:57)
[2017-04-25] MEDS ORDERED: SEVELAMER CARBONATE 0.8 GM PKT PO SCH (08:00)
[2017-04-25] MEDS: MULTIVIT/CA CARB/B CMPLX/FA TAB PO SCH (09:00)
[2017-04-25] MEDS ORDERED: MULTIVIT/CA CARB/B CMPLX/FA TAB PO SCH (09:00)
[2017-04-25] MEDS: ALLOPURINOL 100 MG TAB PO SCH (09:00)
[2017-04-25] MEDS ORDERED: RANOLAZINE (SR) 500 MG TAB PO SCH (09:00)
[2017-04-25] MEDS: LOSARTAN 25 MG TAB PO SCH (09:00)
[2017-04-25] MEDS: RANOLAZINE (SR) 500 MG TAB PO SCH ×2 (09:00→21:10)
[2017-04-25] MEDS ORDERED: ALLOPURINOL 100 MG TAB PO SCH (09:00)
[2017-04-25] MEDS ORDERED: ROPINIROLE 0.25 MG TAB PO SCH (09:00)
[2017-04-25] MEDS: PANTOPRAZOLE (EC) 40 MG TAB PO SCH ×2 (10:28→21:11)
--- NOTE | 2017-04-25 11:39 | CONS ---
Date/Time of Note Date/Time of Note DATE: 04/25/17 TIME: 11:36 Assessment/Plan Assessment/Plan Chief Complaint/Hosp Course chf anemia of ckd post biventricular pacer underdialyzed dialysis today reeval in am Problems: Consultation Date/Type/Reason Admit Date/Time Apr 24, 2017 at 12:10 Initial Consult Date Reason for Consultation chf ckd 5 24 HR Interval Summary Free Text/Dictation less sob. Had dialysis y . Labs pending from today. dialysis starting at this time. Constitutional: chills, diaphoresis, disoriented, febrile, improved, no complaints, other, poor po, requiring IVF, requiring O2 Detailed Summary Eyes: no complaints ENT: no complaints Respiratory: shortness of breath Gastrointestinal: no complaints Neurologic: no complaints Exam/Review of Systems Vital Signs Vitals Vital Signs Date Time Temp Pulse Resp B/P Pulse Ox O2 Delivery O2 Flow Rate FiO2 04/25/17 11:22 97.9 110 20 127/58 92 04/25/17 07:32 6.0 04/25/17 07:32 Simple Mask Intake and Output 04/24/17 04/24/17 04/25/17 15:00 23:00 07:00 Intake Total 720 ml Output Total 1300 ml Balance -580 ml Exam Constitutional: alert Psych: no complaints Respiratory: crackles/rales, diminished breath sounds Cardiovascular: regular rate and rhythm Neurological: TIRE MAKER II-XII intact, nl mental status Results Result Diagram: 04/24/17 0900 04/24/17 0900 Medications Medications Current Medications Allopurinol (Zyloprim) 100 mg DAILY PO ; Start 04/25/17 at 09:00 Alprazolam (Xanax) 0.25 mg QHS PRN PO ANXIETY Last administered on 04/24/17 21: 17; Admin Dose 0.25 MG; Start 04/24/17 at 13:00 Aspirin (Halfprin) 81 mg QHS PO Last administered on 04/24/17 20:27; Admin Dose 81 MG; Start 04/24/17 at 21:00 Atorvastatin Calcium (Lipitor) 40 mg QHS PO Last administered on 04/24/17 20:27 ; Admin Dose 40 MG; Start 04/24/17 at 21:00 Clopidogrel Bisulfate (plaVIX) 75 mg QHS PO Last administered on 04/24/17 20:27 ; Admin Dose 75 MG; Start 04/24/17 at 21:00 Acetaminophen/ Hydrocodone Bitart ([place] (7.5-325)) 1 tab DAILY PRN PO SEVERE PAIN LEVEL 7-10; Start 04/24/17 at 13:00 Losartan Potassium (Cozaar) 25 mg DAILY PO ; Start 04/24/17 at 13:00 Multivit/Ca Carb/ B Cmplx/FA/Prenat (Gi-Evelio) 1 tab DAILY PO ; Start 04/24/17 at 13:00 Nitroglycerin (Nitroglycerin ([place])) 1 spray Q5M PRN TL CHEST PAIN; Start 04/24 at 13:00 Pantoprazole (Protonix Tab) 40 mg Q12 PO Last administered on 04/25/17 10:28; Admin Dose 40 MG; Start 04/24/17 at 13:00 Ranolazine (Ranexa) 500 mg Q12 PO Last administered on 04/24/17 16:52; Admin Dose 500 MG; Start 04/24/17 at 13:00 Zolpidem Tartrate (Ambien) 7.5 mg QHS PRN PO INSOMNIA; Start 04/24/17 at 13:00 Ondansetron HCl (Zofran Tab) 4 mg Q6H PRN PO NAUSEA AND/OR VOMITING; Start 04/24 at 13:30 Acetaminophen (Tylenol Tab) 650 mg Q6H PRN PO PAIN LEVEL 1-3 OR FEVER; Start at 13:30 Acetaminophen/ Hydrocodone Bitart ([place] (5/325)) 1 tab Q6H PRN PO MODERATE PAIN LEVEL 4-6; Start 04/24/17 at 13:30 Docusate Sodium (Colace) 100 mg Q12H PRN PO CONSTIPATION; Start 04/24/17 at 13: 30 Epoetin [place] (Epogen (Esrd)) 10,000 units MoWeFr@17 SC Last administered on 04/24 16:02; Admin Dose 10,000 UNITS; Start 04/24/17 at 17:00 Ropinirole HCl (Requip) 1 mg TID PO Last administered on 04/25/17 10:28; Admin Dose 1 MG; Start 04/24/17 at 21:00 NIKOLAI HAYNES MD Apr 25, 2017 11:39
[2017-04-25 12:08] LABS: ADD SCAN DIFF NO
[2017-04-25 12:15] LABS: ABNORMAL IP MESSAGE 1
[2017-04-25] MEDS: ALBUMIN HUMAN 25% 50 ML IV PRN (13:54)
[2017-04-25 14:09] LABS: LYMPHOCYTES # 0.8 10^3/ul (0.8-2.9); MONOCYTE # 0.2 10^3/ul (0.3-0.9); NEUTROPHIL # 3.2 10^3/ul (1.6-7.5)
[2017-04-25 14:59] LABS: HEMOGLOBIN 8.8 g/dl (14.0-18.0); RED BLOOD COUNT 3.04 10^6/ul (4.70-6.10); WHITE BLOOD COUNT 5.7 10^3/ul (4.8-10.8)
[2017-04-25 15:00] LABS: HEMATOCRIT 29.8 % (42.0-52.0); MEAN CORPUSCULAR HEMOGLOBIN 28.9 pg (29.0-33.0); MEAN CORPUSCULAR HGB CONC 29.5 g/dl (32.0-37.0); RED CELL DISTRIBUTION WIDTH 18.3 % (11.5-14.5)
[2017-04-25 15:01] LABS: MEAN PLATELET VOLUME 9.7 fl (7.4-10.4); PLATELET COUNT 214 10^3/UL (140-415)
[2017-04-25] MEDS: ONDANSETRON 4 MG TAB PO PRN (17:42)
[2017-04-25] MEDS ORDERED: morphine 2 MG INJ IV PRN (18:00)
[2017-04-25] MEDS ORDERED: AL HYDROX/MG HYDROX/SIMETH 30 ML CUP PO PRN (18:00)
[2017-04-25] MEDS ORDERED: ASPIRIN (EC) 81 MG TAB PO SCH (21:00)
[2017-04-25] MEDS ORDERED: ATORVASTATIN 40 MG TAB PO SCH (21:00)
[2017-04-25] MEDS ORDERED: CLOPIDOGREL 75 MG TAB PO SCH (21:00)
[2017-04-25] MEDS: ATORVASTATIN 40 MG TAB PO SCH (21:10)
[2017-04-25] MEDS: ASPIRIN (EC) 81 MG TAB PO SCH (21:10)
[2017-04-25] MEDS: CLOPIDOGREL 75 MG TAB PO SCH (21:11)
[2017-04-26] VITALS (12 sets, daily range): BP systolic 103–125; BP diastolic 46–56; PULSE 86–105; RESP 16–18
[2017-04-26] MEDS: ALBUTEROL/IPRATROPIUM (NEB) 3 ML AMP HHN PRN ×6 (00:42→21:05)
[2017-04-26] MEDS: SEVELAMER 800 MG TAB PO SCH ×3 (07:53→17:52)
[2017-04-26] MEDS: ROPINIROLE 1 MG TAB PO SCH ×3 (09:37→21:35)
[2017-04-26] MEDS: LOSARTAN 25 MG TAB PO SCH (09:38)
[2017-04-26] MEDS: MULTIVIT/CA CARB/B CMPLX/FA TAB PO SCH (09:38)
[2017-04-26] MEDS: PANTOPRAZOLE (EC) 40 MG TAB PO SCH ×2 (09:38→21:35)
[2017-04-26] MEDS: ALLOPURINOL 100 MG TAB PO SCH (09:38)
[2017-04-26] MEDS: RANOLAZINE (SR) 500 MG TAB PO SCH ×2 (09:38→21:35)
--- NOTE | 2017-04-26 10:50 | CONS ---
Date/Time of Note Date/Time of Note DATE: 04/26/17 TIME: 10:41 Assessment/Plan Assessment/Plan Chief Complaint/Hosp Course chf anemia of ckd post biventricular pacer underdialyzed dialysis tomorrow reeval in am ekg renal diet lopressor 25 bid Problems: (1) Anemia Status: Chronic Qualifiers: Other causes of anemia: chronic disease, kidney (2) CHF (congestive heart failure) Qualifiers: Congestive heart failure type: unspecified congestive heart failure type (3) Diabetes mellitus (4) GERD (gastroesophageal reflux disease) Status: Acute (5) Tachycardia (6) ESRD (end stage renal disease) on dialysis Status: Chronic Additional Assessment/Plan Will obtain ekg, Consultation Date/Type/Reason Admit Date/Time Apr 24, 2017 at 12:10 24 HR Interval Summary Free Text/Dictation Had one hour of indigestion. Given protonix and resolved. Not a symptom normally for his heart issues and last indigestion years ago he stated. No sob. Also feels slight light headed. Exam/Review of Systems Vital Signs Vitals Vital Signs Date Time Temp Pulse Resp B/P Pulse Ox O2 Delivery O2 Flow Rate FiO2 04/26/17 09:05 96 20 95 Simple Mask 6.0 04/26/17 07:34 98.3 118/49 Intake and Output 04/25/17 04/25/17 04/26/17 15:00 23:00 07:00 Intake Total 300 ml 600 ml 120 ml Output Total 2800 ml 0 ml 0 ml Balance -2500 ml 600 ml 120 ml Exam Constitutional: alert, oriented Head: normocephalic Respiratory: clear to auscultation Cardiovascular: other (tachy 100), regular rate and rhythm Extremities: other (no edema) Results Result Diagram: 04/25/17 1150 04/24/17 0900 Results 24 hrs Laboratory Tests Test 04/25/17 11:50 White Blood Count 5.7 Red Blood Count 3.04 L Hemoglobin 8.8 L Hematocrit 29.8 L Mean Corpuscular Volume 98.0 Mean Corpuscular Hemoglobin 28.9 L Mean Corpuscular Hemoglobin Concent 29.5 L Red Cell Distribution Width 18.3 H Platelet Count 214 Mean Platelet Volume 9.7 Neutrophils % 76.0 Lymphocytes % 18.0 Monocytes % 5.0 Eosinophils % 1.0 Basophils % 0.0 Nucleated Red Blood Cells % 0.0 Neutrophils # 3.2 Lymphocytes # 0.8 Monocytes # 0.2 L Eosinophils # 0.0 Basophils # 0.0 Nucleated Red Blood Cells # 0.0 Medications Medications Current Medications Allopurinol (Zyloprim) 100 mg DAILY PO Last administered on 04/26/17 09:38; Admin Dose 100 MG; Start 04/25/17 at 09:00 Alprazolam (Xanax) 0.25 mg QHS PRN PO ANXIETY Last administered on 04/24/17 21: 17; Admin Dose 0.25 MG; Start 04/24/17 at 13:00 Aspirin (Halfprin) 81 mg QHS PO Last administered on 04/25/17 21:10; Admin Dose 81 MG; Start 04/24/17 at 21:00 Atorvastatin Calcium (Lipitor) 40 mg QHS PO Last administered on 04/25/17 21:10 ; Admin Dose 40 MG; Start 04/24/17 at 21:00 Clopidogrel Bisulfate (plaVIX) 75 mg QHS PO Last administered on 04/25/17 21:11 ; Admin Dose 75 MG; Start 04/24/17 at 21:00 Acetaminophen/ Hydrocodone Bitart ([place] (7.5-325)) 1 tab DAILY PRN PO SEVERE PAIN LEVEL 7-10; Start 04/24/17 at 13:00 Losartan Potassium (Cozaar) 25 mg DAILY PO Last administered on 04/26/17 09:38 ; Admin Dose 25 MG; Start 04/24/17 at 13:00 Multivit/Ca Carb/ B Cmplx/FA/Prenat (Gi-Evelio) 1 tab DAILY PO Last administered on 04/26/17 09:38; Admin Dose 1 TAB; Start 04/24/17 at 13:00 Nitroglycerin (Nitroglycerin ([place])) 1 spray Q5M PRN TL CHEST PAIN; Start 04/24 at 13:00 Pantoprazole (Protonix Tab) 40 mg Q12 PO Last administered on 04/26/17 09:38; Admin Dose 40 MG; Start 04/24/17 at 13:00 Ranolazine (Ranexa) 500 mg Q12 PO Last administered on 04/26/17 09:38; Admin Dose 500 MG; Start 04/24/17 at 13:00 Zolpidem Tartrate (Ambien) 7.5 mg QHS PRN PO INSOMNIA; Start 04/24/17 at 13:00 Ondansetron HCl (Zofran Tab) 4 mg Q6H PRN PO NAUSEA AND/OR VOMITING Last administered on 04/25/17 17:42; Admin Dose 4 MG; Start 04/24/17 at 13:30 Acetaminophen (Tylenol Tab) 650 mg Q6H PRN PO PAIN LEVEL 1-3 OR FEVER; Start at 13:30 Acetaminophen/ Hydrocodone Bitart ([place] (5/325)) 1 tab Q6H PRN PO MODERATE PAIN LEVEL 4-6; Start 04/24/17 at 13:30 Docusate Sodium (Colace) 100 mg Q12H PRN PO CONSTIPATION; Start 04/24/17 at 13: 30 Epoetin [place] (Epogen (Esrd)) 10,000 units MoWeFr@17 SC Last administered on 04/24 16:02; Admin Dose 10,000 UNITS; Start 04/24/17 at 17:00 Ropinirole HCl (Requip) 1 mg TID PO Last administered on 04/26/17 09:37; Admin Dose 1 MG; Start 04/24/17 at 21:00 Al Hydrox/Mg Hydrox/Simethicone (Mag-Al Plus) 30 ml Q4H PRN PO GASTROINTESTINAL UPSET; Start 04/25/17 at 18:00 Morphine Sulfate (morphine) 1 mg Q4H PRN IV PAIN LEVEL 4-6 Last administered on 04/25/17 18:11; Admin Dose 1 MG; Start 04/25/17 at 18:00 NIKOLAI HAYNES MD Apr 26, 2017 10:50
[2017-04-26] MEDS: METOPROLOL 25 MG TAB PO SCH ×2 (11:49→21:00)
[2017-04-26] MEDS: CLOPIDOGREL 75 MG TAB PO SCH (21:35)
[2017-04-26] MEDS: ATORVASTATIN 40 MG TAB PO SCH (21:35)
[2017-04-26] MEDS: ASPIRIN (EC) 81 MG TAB PO SCH (21:35)
[2017-04-27] VITALS (19 sets, daily range): BP systolic 98–118; BP diastolic 41–67; PULSE 84–100; RESP 17–19
[2017-04-27] MEDS: ALBUTEROL/IPRATROPIUM (NEB) 3 ML AMP HHN PRN ×4 (01:04→19:57)
[2017-04-27] MEDS: SEVELAMER 800 MG TAB PO SCH ×3 (07:55→17:41)
--- NOTE | 2017-04-27 08:13 | PN ---
Date/Time of Note Date/Time of Note DATE: 04/27/17 TIME: 08:11 Assessment/Plan VTE Prophylaxis VTE Prophylaxis Intervention: other Lines/Catheters IV Catheter Type (from Nrsg): Saline Lock Urinary Cath still in place: No Assessment/Plan Assessment/Plan 1. CKD, to have HD today 2. Prolonged bed rest, will ask PT to see 3. Anemia, to eval iron stores Subjective 24 Hr Interval Summary Respiratory: No shortness of breath Cardiovascular: No chest pain Gastrointestinal: no complaints Genitourinary: no complaints Exam/Review of Systems Vital Signs Vitals Vital Signs Date Time Temp Pulse Resp B/P Pulse Ox O2 Delivery O2 Flow Rate FiO2 04/27/17 07:41 98.6 94 18 114/52 98 04/27/17 05:13 Simple Mask 6.0 Intake and Output 04/26/17 04/26/17 04/27/17 15:00 23:00 07:00 Intake Total 800 ml 350 ml Balance 800 ml 350 ml Exam Neck: No jvd Respiratory: clear to auscultation Cardiovascular: regular rate and rhythm Gastrointestinal: soft Extremities: No edema Results Result Diagram: 04/25/17 1150 04/24/17 0900 Medications Medications Current Medications Allopurinol (Zyloprim) 100 mg DAILY PO Last administered on 04/26/17 09:38; Admin Dose 100 MG; Start 04/25/17 at 09:00 Alprazolam (Xanax) 0.25 mg QHS PRN PO ANXIETY Last administered on 04/24/17 21: 17; Admin Dose 0.25 MG; Start 04/24/17 at 13:00 Aspirin (Halfprin) 81 mg QHS PO Last administered on 04/26/17 21:35; Admin Dose 81 MG; Start 04/24/17 at 21:00 Atorvastatin Calcium (Lipitor) 40 mg QHS PO Last administered on 04/26/17 21:35 ; Admin Dose 40 MG; Start 04/24/17 at 21:00 Clopidogrel Bisulfate (plaVIX) 75 mg QHS PO Last administered on 04/26/17 21:35 ; Admin Dose 75 MG; Start 04/24/17 at 21:00 Acetaminophen/ Hydrocodone Bitart ([place] (7.5-325)) 1 tab DAILY PRN PO SEVERE PAIN LEVEL 7-10; Start 04/24/17 at 13:00 Losartan Potassium (Cozaar) 25 mg DAILY PO Last administered on 04/26/17 09:38 ; Admin Dose 25 MG; Start 04/24/17 at 13:00 Multivit/Ca Carb/ B Cmplx/FA/Prenat (Gi-Evelio) 1 tab DAILY PO Last administered on 04/26/17 09:38; Admin Dose 1 TAB; Start 04/24/17 at 13:00 Nitroglycerin (Nitroglycerin ([place])) 1 spray Q5M PRN TL CHEST PAIN; Start 04/24 at 13:00 Pantoprazole (Protonix Tab) 40 mg Q12 PO Last administered on 04/26/17 21:35; Admin Dose 40 MG; Start 04/24/17 at 13:00 Ranolazine (Ranexa) 500 mg Q12 PO Last administered on 04/26/17 21:35; Admin Dose 500 MG; Start 04/24/17 at 13:00 Zolpidem Tartrate (Ambien) 7.5 mg QHS PRN PO INSOMNIA; Start 04/24/17 at 13:00 Ondansetron HCl (Zofran Tab) 4 mg Q6H PRN PO NAUSEA AND/OR VOMITING Last administered on 04/25/17 17:42; Admin Dose 4 MG; Start 04/24/17 at 13:30 Acetaminophen (Tylenol Tab) 650 mg Q6H PRN PO PAIN LEVEL 1-3 OR FEVER Last administered on 04/26/17 21:39; Admin Dose 650 MG; Start 04/24/17 at 13:30 Acetaminophen/ Hydrocodone Bitart ([place] (5/325)) 1 tab Q6H PRN PO MODERATE PAIN LEVEL 4-6; Start 04/24/17 at 13:30 Docusate Sodium (Colace) 100 mg Q12H PRN PO CONSTIPATION; Start 04/24/17 at 13: 30 Epoetin [place] (Epogen (Esrd)) 10,000 units MoWeFr@17 SC Last administered on 04/24 16:02; Admin Dose 10,000 UNITS; Start 04/24/17 at 17:00 Ropinirole HCl (Requip) 1 mg TID PO Last administered on 04/26/17 21:35; Admin Dose 1 MG; Start 04/24/17 at 21:00 Al Hydrox/Mg Hydrox/Simethicone (Mag-Al Plus) 30 ml Q4H PRN PO GASTROINTESTINAL UPSET; Start 04/25/17 at 18:00 Morphine Sulfate (morphine) 1 mg Q4H PRN IV PAIN LEVEL 4-6 Last administered on 04/25/17 18:11; Admin Dose 1 MG; Start 04/25/17 at 18:00 Metoprolol Tartrate (Lopressor) 25 mg BID PO Last administered on 04/26/17 11: 49; Admin Dose 25 MG; Start 04/26/17 at 11:00 ALONZO SERRA MD Apr 27, 2017 08:13
[2017-04-27] MEDS: ROPINIROLE 1 MG TAB PO PRN ×2 (08:44→20:53)
[2017-04-27] MEDS: PANTOPRAZOLE (EC) 40 MG TAB PO SCH ×2 (08:44→20:54)
[2017-04-27] MEDS: METOPROLOL 25 MG TAB PO SCH ×2 (08:45→20:57)
[2017-04-27] MEDS: LOSARTAN 25 MG TAB PO SCH (08:45)
[2017-04-27] MEDS: MULTIVIT/CA CARB/B CMPLX/FA TAB PO SCH ×2 (08:46→14:03)
[2017-04-27] MEDS: ALLOPURINOL 100 MG TAB PO SCH ×2 (08:46→14:03)
[2017-04-27] MEDS: RANOLAZINE (SR) 500 MG TAB PO SCH ×3 (08:46→20:53)
[2017-04-27] MEDS: SALMETEROL/FLUTICASONE 250/50 INHA INH SCH ×2 (09:00→20:56)
[2017-04-27] MEDS: ALBUMIN HUMAN 25% 50 ML IV PRN (12:28)
--- NOTE | 2017-04-27 13:42 | RADRPT ---
Vent Rate: 86 bpm RR Interval: 0 msec MS Interval: 130 msec QRS Duration: 150 msec QT Interval: 458 msec QTC Interval: 548 msec P-R-T [place]: 35 - -60 - 95 degrees Normal sinus rhythm Left axis deviation Nonspecific intraventricular block Lateral infarct , age undetermined Inferior infarct , age undetermined Abnormal ECG Electronically Signed By: Gian Carrillo [id number]
[2017-04-27] MEDS: EPOETIN 10000 UNITS/1 ML INJ (ESRD) SC SCH (17:43)
[2017-04-27 18:01] LABS: ADD SCAN DIFF NO
[2017-04-27 18:04] LABS: ABNORMAL IP MESSAGE 1; HEMATOCRIT 23.3 % (42.0-52.0); MEAN CORPUSCULAR HEMOGLOBIN 29.6 pg (29.0-33.0); MEAN CORPUSCULAR HGB CONC 29.6 g/dl (32.0-37.0); MEAN PLATELET VOLUME 9.4 fl (7.4-10.4); PLATELET COUNT 173 10^3/UL (140-415); RED BLOOD COUNT 2.33 10^6/ul (4.70-6.10)
[2017-04-27 18:07] LABS: HEMOGLOBIN 6.9 g/dl (14.0-18.0)
[2017-04-27 18:24] LABS: EOSINOPHILS # 0.1 10^3/ul (0.0-0.5); LYMPHOCYTES # 0.7 10^3/ul (0.8-2.9); MONOCYTE # 0.2 10^3/ul (0.3-0.9); NEUTROPHIL # 4.1 10^3/ul (1.6-7.5)
[2017-04-27 18:25] LABS: ANISOCYTOSIS 1+
[2017-04-27 18:26] LABS: IRON 22 ug/dl (35-150)
[2017-04-27 18:28] LABS: ALBUMIN 4.1 g/dl (3.3-4.9); ALBUMIN/GLOBULIN RATIO 1.64; BILIRUBIN,INDIRECT 0.3 mg/dl (0-1.1); BILIRUBIN,TOTAL 0.3 mg/dl (0.2-1.3); CALCIUM 9.4 mg/dl (8.4-10.2); CREATININE 3.97 mg/dl (0.61-1.24); PHOSPHORUS 2.6 mg/dl (2.5-4.9); POTASSIUM 3.4 mmol/L (3.5-5.1); TOTAL PROTEIN 6.6 g/dl (6.1-8.1)
[2017-04-27 18:36] LABS: TOTAL IRON BINDING CAPACITY 169 ug/dl (241-421)
[2017-04-27] MEDS: ATORVASTATIN 40 MG TAB PO SCH (20:53)
[2017-04-27] MEDS: ASPIRIN (EC) 81 MG TAB PO SCH (20:53)
[2017-04-27] MEDS: CLOPIDOGREL 75 MG TAB PO SCH (20:53)
[2017-04-28] VITALS (18 sets, daily range): BP systolic 99–123; BP diastolic 31–74; PULSE 90–110; RESP 17–21
[2017-04-28] MEDS: ALBUTEROL/IPRATROPIUM (NEB) 3 ML AMP HHN PRN ×3 (01:02→22:35)
[2017-04-28 06:44] LABS: ADD SCAN DIFF NO
[2017-04-28 06:54] LABS: ABNORMAL IP MESSAGE 1; HEMATOCRIT 24.2 % (42.0-52.0); MEAN CORPUSCULAR HEMOGLOBIN 28.5 pg (29.0-33.0); MEAN CORPUSCULAR HGB CONC 28.1 g/dl (32.0-37.0); MEAN CORPUSCULAR VOLUME 101.3 fl (82.0-101.0); MEAN PLATELET VOLUME 9.6 fl (7.4-10.4); PLATELET COUNT 180 10^3/UL (140-415); RED BLOOD COUNT 2.39 10^6/ul (4.70-6.10); RED CELL DISTRIBUTION WIDTH 19.3 % (11.5-14.5); WHITE BLOOD COUNT 5.1 10^3/ul (4.8-10.8)
[2017-04-28 07:07] LABS: HEMOGLOBIN 6.8 g/dl (14.0-18.0)
[2017-04-28 07:25] LABS: CALCIUM 9.2 mg/dl (8.4-10.2); CREATININE 4.76 mg/dl (0.61-1.24); POTASSIUM 3.2 mmol/L (3.5-5.1)
[2017-04-28] MEDS: SEVELAMER 800 MG TAB PO SCH ×3 (07:55→17:55)
--- NOTE | 2017-04-28 08:08 | PN ---
Date/Time of Note Date/Time of Note DATE: 04/28/17 TIME: 08:05 Assessment/Plan VTE Prophylaxis VTE Prophylaxis Intervention: other Lines/Catheters IV Catheter Type (from Nrsg): Saline Lock Urinary Cath still in place: No Assessment/Plan Assessment/Plan 1. ASHD with now CHF, will dialyzed now, cxr, ekg and troponin ordered as well as abg, ? cause, cards to follow up 2. Anemia, to be transfused, stool ob ordered 3. DM, diet controlled 4. CKD on HD Subjective 24 Hr Interval Summary Respiratory: shortness of breath Cardiovascular: No chest pain Gastrointestinal: no complaints Genitourinary: no complaints Exam/Review of Systems Vital Signs Vitals Vital Signs Date Time Temp Pulse Resp B/P Pulse Ox O2 Delivery O2 Flow Rate FiO2 04/28/17 08:03 90 04/28/17 01:04 5.0 04/28/17 01:04 18 Nasal Cannula 04/27/17 20:01 100 04/27/17 19:47 98.1 116/48 Intake and Output 04/27/17 04/27/17 04/28/17 15:00 23:00 07:00 Intake Total 500 ml 750 ml 750 ml Output Total 2000 ml 0 ml Balance -1500 ml 750 ml 750 ml Exam Neck: jvd Respiratory: diminished breath sounds (rales bilat) Cardiovascular: regular rate and rhythm, systolic murmur (/6 syst, ?s4) Gastrointestinal: soft Extremities: No edema Results Result Diagram: 04/28/1718 04/28/17 0618 Results 24 hrs Laboratory Tests Test 04/27/17 17:53 04/28/17 06:18 White Blood Count 5.0 5.1 Red Blood Count 2.33 #L 2.39 L Hemoglobin 6.9 #*L 6.8 *L Hematocrit 23.3 #L 24.2 L Mean Corpuscular Volume 100.0 101.3 H Mean Corpuscular Hemoglobin 29.6 28.5 L Mean Corpuscular Hemoglobin Concent 29.6 L 28.1 L Red Cell Distribution Width 19.0 H 19.3 H Platelet Count 173 180 Mean Platelet Volume 9.4 9.6 Neutrophils % 82.0 H Lymphocytes % 13.0 L Monocytes % 4.0 Eosinophils % 1.0 Neutrophils # 4.1 Lymphocytes # 0.7 L Monocytes # 0.2 L Eosinophils # 0.1 Anisocytosis 1+ Macrocytosis 1+ Sodium Level 142 134 L Potassium Level 3.4 L 3.2 L Chloride Level 92 L 95 L Carbon Dioxide Level 34 H 33 H Anion Gap 19 H 9 # Blood Urea Nitrogen 16 22 H Creatinine 3.97 H 4.76 H Glucose Level 134 104 Calcium Level 9.4 9.2 Phosphorus Level 2.6 Iron Level 22 L Total Iron Binding Capacity 169 L Percent Iron Saturation 13 L Ferritin 677.0 H Total Bilirubin 0.3 Direct Bilirubin 0.00 Indirect Bilirubin 0.3 Aspartate Amino Transf (AST/SGOT) 25 Alanine Aminotransferase (ALT/SGPT) 14 Alkaline Phosphatase 86 Total Protein 6.6 Albumin 4.1 Globulin 2.50 Albumin/Globulin Ratio 1.64 Medications Medications Current Medications Allopurinol (Zyloprim) 100 mg DAILY PO Last administered on 04/27/17 14:03; Admin Dose 100 MG; Start 04/25/17 at 09:00 Alprazolam (Xanax) 0.25 mg QHS PRN PO ANXIETY Last administered on 04/24/17 21: 17; Admin Dose 0.25 MG; Start 04/24/17 at 13:00 Aspirin (Halfprin) 81 mg QHS PO Last administered on 04/27/17 20:53; Admin Dose 81 MG; Start 04/24/17 at 21:00 Atorvastatin Calcium (Lipitor) 40 mg QHS PO Last administered on 04/27/17 20: 53; Admin Dose 40 MG; Start 04/24/17 at 21:00 Clopidogrel Bisulfate (plaVIX) 75 mg QHS PO Last administered on 04/27/17 20: 53; Admin Dose 75 MG; Start 04/24/17 at 21:00 Acetaminophen/ Hydrocodone Bitart ([place] (7.5-325)) 1 tab DAILY PRN PO SEVERE PAIN LEVEL 7-10; Start 04/24/17 at 13:00 Losartan Potassium (Cozaar) 25 mg DAILY PO Last administered on 04/26/17 09:38 ; Admin Dose 25 MG; Start 04/24/17 at 13:00 Multivit/Ca Carb/ B Cmplx/FA/Prenat (Gi-Evelio) 1 tab DAILY PO Last administered on 04/27/17 14:03; Admin Dose 1 TAB; Start 04/24/17 at 13:00 Nitroglycerin (Nitroglycerin ([place])) 1 spray Q5M PRN TL CHEST PAIN; Start 04/24 at 13:00 Pantoprazole (Protonix Tab) 40 mg Q12 PO Last administered on 04/27/17 20:54; Admin Dose 40 MG; Start 04/24/17 at 13:00 Ranolazine (Ranexa) 500 mg Q12 PO Last administered on 04/27/17 20:53; Admin Dose 500 MG; Start 04/24/17 at 13:00 Zolpidem Tartrate (Ambien) 7.5 mg QHS PRN PO INSOMNIA; Start 04/24/17 at 13:00 Ondansetron HCl (Zofran Tab) 4 mg Q6H PRN PO NAUSEA AND/OR VOMITING Last administered on 04/25/17 17:42; Admin Dose 4 MG; Start 04/24/17 at 13:30 Acetaminophen (Tylenol Tab) 650 mg Q6H PRN PO PAIN LEVEL 1-3 OR FEVER Last administered on 04/26/17 21:39; Admin Dose 650 MG; Start 04/24/17 at 13:30 Acetaminophen/ Hydrocodone Bitart ([place] (5/325)) 1 tab Q6H PRN PO MODERATE PAIN LEVEL 4-6; Start 04/24/17 at 13:30 Docusate Sodium (Colace) 100 mg Q12H PRN PO CONSTIPATION; Start 04/24/17 at 13: 30 Epoetin Lyle (Epogen (Esrd)) 10,000 units MoWeFr@17 SC Last administered on 17:43; Admin Dose 10,000 UNITS; Start 04/24/17 at 17:00 Al Hydrox/Mg Hydrox/Simethicone (Mag-Al Plus) 30 ml Q4H PRN PO GASTROINTESTINAL UPSET; Start 04/25/17 at 18:00 Morphine Sulfate (morphine) 1 mg Q4H PRN IV PAIN LEVEL 4-6 Last administered on 04/25/17 18:11; Admin Dose 1 MG; Start 04/25/17 at 18:00 Metoprolol Tartrate (Lopressor) 25 mg BID PO Last administered on 04/26/17 11: 49; Admin Dose 25 MG; Start 04/26/17 at 11:00 Ropinirole HCl (Requip) 1 mg QID PRN PO restless legs Last administered on 04/27 20:53; Admin Dose 1 MG; Start 04/27/17 at 09:00 Salmeterol Xinafoate/ Fluticasone (Advair 250/50 Diskus) 1 inh BID INH Last administered on 04/27/17 20:56; Admin Dose 1 INH; Start 04/27/17 at 09:00 ALONZO SERRA MD Apr 28, 2017 08:08
[2017-04-28] MEDS: LOSARTAN 25 MG TAB PO SCH (08:35)
[2017-04-28] MEDS: METOPROLOL 25 MG TAB PO SCH ×2 (08:36→21:00)
--- NOTE | 2017-04-28 08:44 | RADRPT ---
PROCEDURE: XR Chest. CLINICAL INDICATION: Chest pain TECHNIQUE: Single frontal view of the chest was obtained COMPARISON: 04/01/2017 FINDINGS: The heart is enlarged. The thoracic aorta is calcified. There is a right-sided pacemaker / AICD in place. There is mild pulmonary vascular congestion. There is a small left pleural effusion. There is no pneumothorax. RPTAT: AA IMPRESSION: Mild cardiomegaly. Mild pulmonary vascular congestion. Calcified aorta consistent with atherosclerotic disease. .Quentin Reyna MD, Date Time Electronically viewed and signed by .Quentin Reyna MD, on 04/28/2017 08:44 .S/
[2017-04-28] MEDS: ALLOPURINOL 100 MG TAB PO SCH (09:00)
[2017-04-28] MEDS: MULTIVIT/CA CARB/B CMPLX/FA TAB PO SCH (09:00)
[2017-04-28] MEDS: RANOLAZINE (SR) 500 MG TAB PO SCH ×2 (09:00→20:54)
[2017-04-28] MEDS: PANTOPRAZOLE (EC) 40 MG TAB PO SCH ×2 (09:01→20:54)
[2017-04-28] MEDS: SALMETEROL/FLUTICASONE 250/50 INHA INH SCH ×2 (09:01→21:00)
[2017-04-28] MEDS: ROPINIROLE 1 MG TAB PO PRN ×2 (09:01→20:54)
[2017-04-28 09:41] LABS: EOSINOPHILS # 0.2 10^3/ul (0.0-0.5); LYMPHOCYTES # 0.7 10^3/ul (0.8-2.9); MONOCYTE # 0.2 10^3/ul (0.3-0.9); NEUTROPHIL # 3.5 10^3/ul (1.6-7.5); PLATELET ESTIMATE PLT APPEAR ADEQUATE
--- NOTE | 2017-04-28 10:00 | RADRPT ---
PROCEDURE: US bilateral lower extremity veins. CLINICAL INDICATION: Bilateral leg pain and swelling. TECHNIQUE: Multiple longitudinal and transverse images of the bilateral lower extremity veins were obtained with encarnacion scale and color Doppler imaging. The common femoral vein, femoral vein, and popl iteal vein were evaluated. 2D grayscale measurements with compression sonography, color Doppler, and pulsed Doppler with augmentation. COMPARISON: No prior studies are available for comparison. FINDINGS: The bilateral common femoral, femoral and popliteal veins are normally compressible throughout. Col or flow demonstrates normal filling of the vessels. Normal waveforms are visualized and there is no rmal response to augmentation. IMPRESSION: 1. No evidence of deep vein thrombosis involving either lower extremity. RPTAT: QQ .Lazaro Zavaleta MD, MD Date Time Electronically viewed and signed by .Lazaro Zavaleta MD, on 04/28/2017 10:00 .R/
[2017-04-28 11:03] LABS: AADO2 Arterial 37.2 mmHg (7.0-24.0); Allen Test ACCEPTAB; Arterial Base Excess 5.4 mmol/L (-3.0-3); Arterial COHb 0.9 % (0.0-3.0); Arterial Fraction of Oxyhgb 92.4 % (93.0-99.0); Arterial MetHb 0.1 % (0.0-1.5); Arterial Total Hemglobin 7.8 g/dl (12.0-18.0); MODE ROOM AIR
[2017-04-28] MEDS: SOD FERRIC GLUC COMPLX 125 MG in SOD CHLORIDE 0.9% 100 ML IVPB SCH (12:04)
[2017-04-28] MEDS ORDERED: ALBUMIN HUMAN 25% 100 ML IV ONE (13:30)
--- NOTE | 2017-04-28 17:17 | CONS ---
Date/Time of Note Date/Time of Note DATE: 04/28/17 TIME: 17:14 Assessment/Plan Assessment/Plan Chief Complaint/Hosp Course - recurrent NSTEMI- trop elevated 1.5 downtrending. no chest pain. had sob this am, improved. - ICM with LVEF 30-35% s/p BiV ICD - LBBB s/p biV ICD - CAD s/p extensive PCI hx including LM, prox/mid LAD, prox/mid/distal RCA. no revasc targets on recent LHC. - ESRD on iHD Recommendations - there is occlusion of known D1 sub-branch which was jailed and unable to be intervened on, also with chronically occluded LCx system, may be culprit for current troponin leak. - cont asa/plavix - cont statin - bb titration - ranexa Problems: Consultation Date/Type/Reason Admit Date/Time Apr 24, 2017 at 12:10 Constitutional: chills, diaphoresis, disoriented, febrile, improved, no complaints, other, poor po, requiring IVF, requiring O2 Eyes: no complaints ENT: no complaints Respiratory: shortness of breath Cardiovascular: No chest pain Gastrointestinal: no complaints Genitourinary: no complaints Neurologic: no complaints Psychological: no complaints Past Medical History Medical History: other (Hx CAD with [place] 12/05 and subsequent stent placement, AODM diet controlled, Rec CHF, HJx GERD, hx restless leg syndrome) Social History Smoking Status: Former smoker Drug Use: none Exam/Review of Systems Vital Signs Vitals Vital Signs Date Time Temp Pulse Resp B/P Pulse Ox O2 Delivery O2 Flow Rate FiO2 04/28/17 16:03 108 04/28/17 15:36 100.4 18 105/53 100 04/28/17 13:43 5.0 04/28/17 08:15 Nasal Cannula 04/28/17 01:04 Intake and Output 04/27/17 04/27/17 04/28/17 14:59 22:59 06:59 Intake Total 500 ml 750 ml 750 ml Output Total 2000 ml 0 ml Balance -1500 ml 750 ml 750 ml Results Result Diagram: 04/28/1718 04/28/17 0618 Results 24 hrs Laboratory Tests Test 04/27/17 17:53 04/28/17 06:18 04/28/17 08:15 04/28/17 14:25 White Blood Count 5.0 5.1 Red Blood Count 2.33 #L 2.39 L Hemoglobin 6.9 #*L 6.8 *L Hematocrit 23.3 #L 24.2 L Mean Corpuscular Volume 100.0 101.3 H Mean Corpuscular Hemoglobin 29.6 28.5 L Mean Corpuscular Hemoglobin Concent 29.6 L 28.1 L Red Cell Distribution Width 19.0 H 19.3 H Platelet Count 173 180 Mean Platelet Volume 9.4 9.6 Neutrophils % 82.0 H 69.0 Lymphocytes % 13.0 L 14.0 L Monocytes % 4.0 3.0 Eosinophils % 1.0 4.0 Neutrophils # 4.1 3.5 Lymphocytes # 0.7 L 0.7 L Monocytes # 0.2 L 0.2 L Eosinophils # 0.1 0.2 Anisocytosis 1+ Macrocytosis 1+ Sodium Level 142 134 L Potassium Level 3.4 L 3.2 L Chloride Level 92 L 95 L Carbon Dioxide Level 34 H 33 H Anion Gap 19 H 9 # Blood Urea Nitrogen 16 22 H Creatinine 3.97 H 4.76 H Glucose Level 134 104 Calcium Level 9.4 9.2 Phosphorus Level 2.6 Iron Level 22 L Total Iron Binding Capacity 169 L Percent Iron Saturation 13 L Ferritin 677.0 H Total Bilirubin 0.3 Direct Bilirubin 0.00 Indirect Bilirubin 0.3 Aspartate Amino Transf (AST/SGOT) 25 Alanine Aminotransferase (ALT/SGPT) 14 Alkaline Phosphatase 86 Total Protein 6.6 Albumin 4.1 Globulin 2.50 Albumin/Globulin Ratio 1.64 Band Neutrophils % 10.0 H Platelet Estimate PLT APPEAR ADEQUATE Troponin I 1.560 *H 1.530 *H Blood Gas Specimen Source Blood arterial Arterial Blood Date Drawn 04/28/2017 10:55:43 AM Arterial Blood pH (Temp corrected) 7.500 H Arterial Blood pCO2 (Temp correct) 38.0 Arterial Blood pO2 (Temp corrected) 67.0 L Arterial Blood HCO3 29.0 H Arterial Blood Base Excess 5.4 H Arterial Blood Oxygen Saturation 93.3 L Semaj Test ACCEPTAB Arterial Blood Gas Puncture Site Right Radial Arterial Blood Carboxyhemoglobin 0.9 Arterial Blood Methemoglobin 0.1 Blood Gas A-a O2 Differential 37.2 H Oxyhemoglobin Percent 92.4 L Total Hemoglobin 7.8 L Blood Gas Temperature 37.0 Blood Gas Modality ROOM AIR FiO2 21.0 Blood Gas Notified Whom SM Blood Gas Notified Time 04/28/2017 11:02:27 AM Medications Medications Current Medications Allopurinol (Zyloprim) 100 mg DAILY PO Last administered on 04/27/17 14:03; Admin Dose 100 MG; Start 04/25/17 at 09:00 Alprazolam (Xanax) 0.25 mg QHS PRN PO ANXIETY Last administered on 04/24/17 21: 17; Admin Dose 0.25 MG; Start 04/24/17 at 13:00 Aspirin (Halfprin) 81 mg QHS PO Last administered on 04/27/17 20:53; Admin Dose 81 MG; Start 04/24/17 at 21:00 Atorvastatin Calcium (Lipitor) 40 mg QHS PO Last administered on 04/27/17 20: 53; Admin Dose 40 MG; Start 04/24/17 at 21:00 Clopidogrel Bisulfate (plaVIX) 75 mg QHS PO Last administered on 04/27/17 20: 53; Admin Dose 75 MG; Start 04/24/17 at 21:00 Acetaminophen/ Hydrocodone Bitart ([place] (7.5-325)) 1 tab DAILY PRN PO SEVERE PAIN LEVEL 7-10; Start 04/24/17 at 13:00 Losartan Potassium (Cozaar) 25 mg DAILY PO Last administered on 04/26/17 09:38 ; Admin Dose 25 MG; Start 04/24/17 at 13:00 Multivit/Ca Carb/ B Cmplx/FA/Prenat (Gi-Evelio) 1 tab DAILY PO Last administered on 04/27/17 14:03; Admin Dose 1 TAB; Start 04/24/17 at 13:00 Nitroglycerin (Nitroglycerin ([place])) 1 spray Q5M PRN TL CHEST PAIN; Start 04/24 at 13:00 Pantoprazole (Protonix Tab) 40 mg Q12 PO Last administered on 04/28/17 09:01; Admin Dose 40 MG; Start 04/24/17 at 13:00 Ranolazine (Ranexa) 500 mg Q12 PO Last administered on 04/27/17 20:53; Admin Dose 500 MG; Start 04/24/17 at 13:00 Zolpidem Tartrate (Ambien) 7.5 mg QHS PRN PO INSOMNIA; Start 04/24/17 at 13:00 Ondansetron HCl (Zofran Tab) 4 mg Q6H PRN PO NAUSEA AND/OR VOMITING Last administered on 04/25/17 17:42; Admin Dose 4 MG; Start 04/24/17 at 13:30 Acetaminophen (Tylenol Tab) 650 mg Q6H PRN PO PAIN LEVEL 1-3 OR FEVER Last administered on 04/26/17 21:39; Admin Dose 650 MG; Start 04/24/17 at 13:30 Acetaminophen/ Hydrocodone Bitart ([place] (5/325)) 1 tab Q6H PRN PO MODERATE PAIN LEVEL 4-6; Start 04/24/17 at 13:30 Docusate Sodium (Colace) 100 mg Q12H PRN PO CONSTIPATION; Start 04/24/17 at 13: 30 Epoetin Lyle (Epogen (Esrd)) 10,000 units MoWeFr@17 SC Last administered on 17:43; Admin Dose 10,000 UNITS; Start 04/24/17 at 17:00 Al Hydrox/Mg Hydrox/Simethicone (Mag-Al Plus) 30 ml Q4H PRN PO GASTROINTESTINAL UPSET; Start 04/25/17 at 18:00 Morphine Sulfate (morphine) 1 mg Q4H PRN IV PAIN LEVEL 4-6 Last administered on 04/25/17 18:11; Admin Dose 1 MG; Start 04/25/17 at 18:00 Metoprolol Tartrate (Lopressor) 25 mg BID PO Last administered on 04/26/17 11: 49; Admin Dose 25 MG; Start 04/26/17 at 11:00 Ropinirole HCl (Requip) 1 mg QID PRN PO restless legs Last administered on 04/28 09:01; Admin Dose 1 MG; Start 04/27/17 at 09:00 Salmeterol Xinafoate/ Fluticasone 1 inh 1 inh BID INH Last administered on 04/28 09:01; Admin Dose 1 INH; Start 04/27/17 at 09:00 Ferric Sodium Gluconate Complex/ Sodium Chloride (Ferrlecit/NS) 110 ml @ 110 mls/hr Q24H IVPB Last administered on 04/28/17 12:04; Admin Dose 110 MLS/HR; Start 04/28/17 at 11:00; Stop 05/02/17 at 11:59 SUSANA VASQUEZ Apr 28, 2017 17:17
--- NOTE | 2017-04-28 17:19 | RADRPT ---
Vent Rate: 95 bpm RR Interval: 0 msec OR Interval: 124 msec QRS Duration: 150 msec QT Interval: 440 msec QTC Interval: 552 msec P-R-T [place]: 56 - -82 - 87 degrees Sinus rhythm with premature atrial complexes with aberrant conduction Left axis deviation Nonspecific intraventricular block Possible Lateral infarct , age undetermined Cannot rule out Inferior infarct (masked by fascicular block?) , age undetermined Abnormal ECG Electronically Signed By: Gian Carrillo [id number]
[2017-04-28] MEDS: ASPIRIN (EC) 81 MG TAB PO SCH (20:54)
[2017-04-28] MEDS: CLOPIDOGREL 75 MG TAB PO SCH (20:54)
[2017-04-28] MEDS: DOCUSATE SODIUM 100 MG CAP PO PRN (20:59)
[2017-04-28] MEDS: ATORVASTATIN 40 MG TAB PO SCH (21:00)
[2017-04-29] VITALS (19 sets, daily range): BP systolic 96–125; BP diastolic 40–56; PULSE 80–97; RESP 17–18
--- NOTE | 2017-04-29 07:47 | PN ---
Date/Time of Note Date/Time of Note DATE: 04/29/17 TIME: 07:44 Assessment/Plan VTE Prophylaxis VTE Prophylaxis Intervention: other Lines/Catheters IV Catheter Type (from Nrs): Saline Lock Urinary Cath still in place: No Assessment/Plan Assessment/Plan 1. CHF resolved with hd yesterday. 2. Acute myocardial injury (inc troponin) occurred yesterday, rev with cardiology->no intervention needed based on last angio. 3. CKD, to be HD today. 4. Anemia, to be transfused, stool ob pending. 5. Rev with case management-transfer to acute rehab. 6. Rev all with his yesterday. Subjective 24 Hr Interval Summary Respiratory: cough (mild not productive), No shortness of breath Cardiovascular: No chest pain Gastrointestinal: no complaints Genitourinary: no complaints Exam/Review of Systems Vital Signs Vitals Vital Signs Date Time Temp Pulse Resp B/P Pulse Ox O2 Delivery O2 Flow Rate FiO2 04/29/17 04:01 95 04/29/17 03:53 98.3 18 106/51 100 04/29/17 01:42 6.0 04/28/17 22:36 Simple Mask 04/28/17 01:04 Intake and Output 04/28/17 04/28/17 04/29/17 15:00 23:00 07:00 Intake Total 300 ml 810 ml 650 ml Output Total 2500 ml 0 ml Balance -2200 ml 810 ml 650 ml Exam Neck: No jvd Respiratory: clear to auscultation Cardiovascular: regular rate and rhythm Gastrointestinal: soft Extremities: No edema Results Result Diagram: 04/28/17 0618 04/28/17 0618 Results 24 hrs Laboratory Tests Test 04/28/17 08:15 04/28/17 14:25 Blood Gas Specimen Source Blood arterial Arterial Blood Date Drawn 04/28/2017 10:55:43 AM Arterial Blood pH (Temp corrected) 7.500 H Arterial Blood pCO2 (Temp correct) 38.0 Arterial Blood pO2 (Temp corrected) 67.0 L Arterial Blood HCO3 29.0 H Arterial Blood Base Excess 5.4 H Arterial Blood Oxygen Saturation 93.3 L Semaj Test ACCEPTAB Arterial Blood Gas Puncture Site Right Radial Arterial Blood Carboxyhemoglobin 0.9 Arterial Blood Methemoglobin 0.1 Blood Gas A-a O2 Differential 37.2 H Oxyhemoglobin Percent 92.4 L Total Hemoglobin 7.8 L Blood Gas Temperature 37.0 Blood Gas Modality ROOM AIR FiO2 21.0 Blood Gas Notified Whom Blood Gas Notified Time 04/28/2017 11:02:27 AM Troponin I 1.530 *H Medications Medications Current Medications Allopurinol (Zyloprim) 100 mg DAILY PO Last administered on 04/27/17 14:03; Admin Dose 100 MG; Start 04/25/17 at 09:00 Alprazolam (Xanax) 0.25 mg QHS PRN PO ANXIETY Last administered on 04/24/17 21: 17; Admin Dose 0.25 MG; Start 04/24/17 at 13:00 Aspirin (Halfprin) 81 mg QHS PO Last administered on 04/28/17 20:54; Admin Dose 81 MG; Start 04/24/17 at 21:00 Atorvastatin Calcium (Lipitor) 40 mg QHS PO Last administered on 04/28/17 21: 00; Admin Dose 40 MG; Start 04/24/17 at 21:00 Clopidogrel Bisulfate (plaVIX) 75 mg QHS PO Last administered on 04/28/17 20: 54; Admin Dose 75 MG; Start 04/24/17 at 21:00 Acetaminophen/ Hydrocodone Bitart ([place] (7.5-325)) 1 tab DAILY PRN PO SEVERE PAIN LEVEL 7-10; Start 04/24/17 at 13:00 Losartan Potassium (Cozaar) 25 mg DAILY PO Last administered on 04/26/17 09:38 ; Admin Dose 25 MG; Start 04/24/17 at 13:00 Multivit/Ca Carb/ B Cmplx/FA/Prenat (Gi-Evelio) 1 tab DAILY PO Last administered on 04/27/17 14:03; Admin Dose 1 TAB; Start 04/24/17 at 13:00 Nitroglycerin (Nitroglycerin ([place])) 1 spray Q5M PRN TL CHEST PAIN; Start 04/24 at 13:00 Pantoprazole (Protonix Tab) 40 mg Q12 PO Last administered on 04/28/17 20:54; Admin Dose 40 MG; Start 04/24/17 at 13:00 Ranolazine (Ranexa) 500 mg Q12 PO Last administered on 04/28/17 20:54; Admin Dose 500 MG; Start 04/24/17 at 13:00 Zolpidem Tartrate (Ambien) 7.5 mg QHS PRN PO INSOMNIA; Start 04/24/17 at 13:00 Ondansetron HCl (Zofran Tab) 4 mg Q6H PRN PO NAUSEA AND/OR VOMITING Last administered on 04/25/17 17:42; Admin Dose 4 MG; Start 04/24/17 at 13:30 Acetaminophen (Tylenol Tab) 650 mg Q6H PRN PO PAIN LEVEL 1-3 OR FEVER Last administered on 04/26/17 21:39; Admin Dose 650 MG; Start 04/24/17 at 13:30 Acetaminophen/ Hydrocodone Bitart ([place] (5/325)) 1 tab Q6H PRN PO MODERATE PAIN LEVEL 4-6; Start 04/24/17 at 13:30 Docusate Sodium (Colace) 100 mg Q12H PRN PO CONSTIPATION Last administered on 20:59; Admin Dose 100 MG; Start 04/24/17 at 13:30 Epoetin Lyle (Epogen (Esrd)) 10,000 units MoWeFr@17 SC Last administered on 17:43; Admin Dose 10,000 UNITS; Start 04/24/17 at 17:00 Al Hydrox/Mg Hydrox/Simethicone (Mag-Al Plus) 30 ml Q4H PRN PO GASTROINTESTINAL UPSET; Start 04/25/17 at 18:00 Morphine Sulfate (morphine) 1 mg Q4H PRN IV PAIN LEVEL 4-6 Last administered on 04/25/17 18:11; Admin Dose 1 MG; Start 04/25/17 at 18:00 Metoprolol Tartrate (Lopressor) 25 mg BID PO Last administered on 04/26/17 11: 49; Admin Dose 25 MG; Start 04/26/17 at 11:00 Ropinirole HCl (Requip) 1 mg QID PRN PO restless legs Last administered on 04/28 20:54; Admin Dose 1 MG; Start 04/27/17 at 09:00 Salmeterol Xinafoate/ Fluticasone 1 inh 1 inh BID INH Last administered on 04/28 21:00; Admin Dose 1 INH; Start 04/27/17 at 09:00 Ferric Sodium Gluconate Complex/ Sodium Chloride (Ferrlecit/NS) 110 ml @ 110 mls/hr Q24H IVPB Last administered on 04/28/17t 12:04; Admin Dose 110 MLS/HR; Start 04/28/17 at 11:00; Stop 05/02/17 at 11:59 ALONZO SERRA MD Apr 29, 2017 07:46
--- NOTE | 2017-04-29 08:31 | CONS ---
Date/Time of Note Date/Time of Note DATE: 04/29/17 TIME: 08:29 Assessment/Plan Assessment/Plan Chief Complaint/Hosp Course - recurrent NSTEMI- trop elevated 1.5 downtrending. no chest pain. has cont mild sob. no revasc targets on recent cath, likely 2/2 chronic cad with [employer] of multiple small vessels. cont medical therapy with statin asa/plavix and tranfusion for anemia. - ICM with LVEF 30-35% s/p BiV ICD - LBBB s/p biV ICD - CAD s/p extensive PCI hx including LM, prox/mid LAD, prox/mid/distal RCA. no revasc targets on recent LHC. - ESRD on iHD - Anemia- severe, no e/o gi blood loss Recommendations - there is occlusion of known D1 sub-branch which was jailed and unable to be intervened on, also with chronically occluded LCx system, may be culprit for current troponin leak. - cont asa/plavix - cont statin - bb titration as tolerated by bp - ranexa Problems: Consultation Date/Type/Reason Admit Date/Time Apr 28, 2017 at 10:36 Initial Consult Date Exam/Review of Systems Vital Signs Vitals Vital Signs Date Time Temp Pulse Resp B/P Pulse Ox O2 Delivery O2 Flow Rate FiO2 04/29/17 08:14 97.4 91 18 96/40 100 04/29/17 01:42 6.0 04/28/17 22:36 Simple Mask 04/28/17 01:04 Intake and Output 04/28/17 04/28/17 04/29/17 15:00 23:00 07:00 Intake Total 300 ml 810 ml 650 ml Output Total 2500 ml 0 ml Balance -2200 ml 810 ml 650 ml Results Result Diagram: 04/28/17 0618 04/28/17 0618 Results 24 hrs Laboratory Tests Test 04/28/17 14:25 Troponin I 1.530 *H Medications Medications Current Medications Allopurinol (Zyloprim) 100 mg DAILY PO Last administered on 04/27/17 14:03; Admin Dose 100 MG; Start 04/25/17 at 09:00 Alprazolam (Xanax) 0.25 mg QHS PRN PO ANXIETY Last administered on 04/24/17 21: 17; Admin Dose 0.25 MG; Start 04/24/17 at 13:00 Aspirin (Halfprin) 81 mg QHS PO Last administered on 04/28/17 20:54; Admin Dose 81 MG; Start 04/24/17 at 21:00 Atorvastatin Calcium (Lipitor) 40 mg QHS PO Last administered on 04/28/17 21: 00; Admin Dose 40 MG; Start 04/24/17 at 21:00 Clopidogrel Bisulfate (plaVIX) 75 mg QHS PO Last administered on 04/28/17 20: 54; Admin Dose 75 MG; Start 04/24/17 at 21:00 Acetaminophen/ Hydrocodone Bitart ([place] (7.5-325)) 1 tab DAILY PRN PO SEVERE PAIN LEVEL 7-10; Start 04/24/17 at 13:00 Losartan Potassium (Cozaar) 25 mg DAILY PO Last administered on 04/26/17 09:38 ; Admin Dose 25 MG; Start 04/24/17 at 13:00 Multivit/Ca Carb/ B Cmplx/FA/Prenat (Gi-Evelio) 1 tab DAILY PO Last administered on 04/27/17 14:03; Admin Dose 1 TAB; Start 04/24/17 at 13:00 Nitroglycerin (Nitroglycerin ([place])) 1 spray Q5M PRN TL CHEST PAIN; Start 04/24 at 13:00 Pantoprazole (Protonix Tab) 40 mg Q12 PO Last administered on 04/28/17 20:54; Admin Dose 40 MG; Start 04/24/17 at 13:00 Ranolazine (Ranexa) 500 mg Q12 PO Last administered on 04/28/17 20:54; Admin Dose 500 MG; Start 04/24/17 at 13:00 Zolpidem Tartrate (Ambien) 7.5 mg QHS PRN PO INSOMNIA; Start 04/24/17 at 13:00 Ondansetron HCl (Zofran Tab) 4 mg Q6H PRN PO NAUSEA AND/OR VOMITING Last administered on 04/25/17 17:42; Admin Dose 4 MG; Start 04/24/17 at 13:30 Acetaminophen (Tylenol Tab) 650 mg Q6H PRN PO PAIN LEVEL 1-3 OR FEVER Last administered on 04/26/17 21:39; Admin Dose 650 MG; Start 04/24/17 at 13:30 Acetaminophen/ Hydrocodone Bitart ([place] (5/325)) 1 tab Q6H PRN PO MODERATE PAIN LEVEL 4-6; Start 04/24/17 at 13:30 Docusate Sodium (Colace) 100 mg Q12H PRN PO CONSTIPATION Last administered on 20:59; Admin Dose 100 MG; Start 04/24/17 at 13:30 Epoetin Lyle (Epogen (Esrd)) 10,000 units MoWeFr@17 SC Last administered on 17:43; Admin Dose 10,000 UNITS; Start 04/24/17 at 17:00 Al Hydrox/Mg Hydrox/Simethicone (Mag-Al Plus) 30 ml Q4H PRN PO GASTROINTESTINAL UPSET; Start 04/25/17 at 18:00 Morphine Sulfate (morphine) 1 mg Q4H PRN IV PAIN LEVEL 4-6 Last administered on 04/25/17 18:11; Admin Dose 1 MG; Start 04/25/17 at 18:00 Metoprolol Tartrate (Lopressor) 25 mg BID PO Last administered on 04/26/17 11: 49; Admin Dose 25 MG; Start 04/26/17 at 11:00 Ropinirole HCl (Requip) 1 mg QID PRN PO restless legs Last administered on 04/28 20:54; Admin Dose 1 MG; Start 04/27/17 at 09:00 Salmeterol Xinafoate/ Fluticasone 1 inh 1 inh BID INH Last administered on 04/28 21:00; Admin Dose 1 INH; Start 04/27/17 at 09:00 Ferric Sodium Gluconate Complex/ Sodium Chloride (Ferrlecit/NS) 110 ml @ 110 mls/hr Q24H IVPB Last administered on 04/28/17 12:04; Admin Dose 110 MLS/HR; Start 04/28/17 at 11:00; Stop 05/02/17 at 11:59 SUSANA VASQUEZ Apr 29, 2017 08:31
[2017-04-29] MEDS: PANTOPRAZOLE (EC) 40 MG TAB PO SCH ×2 (08:36→20:57)
[2017-04-29] MEDS: SEVELAMER 800 MG TAB PO SCH ×3 (08:36→17:38)
[2017-04-29] MEDS: MULTIVIT/CA CARB/B CMPLX/FA TAB PO SCH (08:37)
[2017-04-29] MEDS: ALLOPURINOL 100 MG TAB PO SCH (08:37)
[2017-04-29] MEDS: RANOLAZINE (SR) 500 MG TAB PO SCH ×2 (08:38→20:57)
[2017-04-29] MEDS: SALMETEROL/FLUTICASONE 250/50 INHA INH SCH ×2 (08:39→20:57)
[2017-04-29] MEDS: ROPINIROLE 1 MG TAB PO PRN ×3 (08:43→21:30)
[2017-04-29] MEDS: LOSARTAN 25 MG TAB PO SCH (09:00)
[2017-04-29] MEDS: METOPROLOL 25 MG TAB PO SCH ×2 (09:00→21:00)
[2017-04-29 12:40] LABS: ADD SCAN DIFF NO
[2017-04-29 12:44] LABS: ABNORMAL IP MESSAGE 1; BASOPHILS % 0.4 % (0.0-2.0); EOSINOPHILS # 0.1 10^3/ul (0.0-0.5); EOSINOPHILS % 1.1 % (0.0-7.0); HEMATOCRIT 22.3 % (42.0-52.0); LYMPHOCYTES # 0.9 10^3/ul (0.8-2.9); LYMPHOCYTES % 16.2 % (15.0-51.0); MEAN CORPUSCULAR HEMOGLOBIN 29.9 pg (29.0-33.0); MEAN CORPUSCULAR VOLUME 99.6 fl (82.0-101.0); MEAN PLATELET VOLUME 9.8 fl (7.4-10.4); MONOCYTE # 0.3 10^3/ul (0.3-0.9); MONOCYTES % 5.9 % (0.0-11.0); NEUTROPHIL # 4.1 10^3/ul (1.6-7.5); PLATELET COUNT 156 10^3/UL (140-415); RED BLOOD COUNT 2.24 10^6/ul (4.70-6.10); RED CELL DISTRIBUTION WIDTH 19.7 % (11.5-14.5); WHITE BLOOD COUNT 5.4 10^3/ul (4.8-10.8)
[2017-04-29 12:53] LABS: HEMOGLOBIN 6.7 g/dl (14.0-18.0)
[2017-04-29 13:07] LABS: CALCIUM 9.2 mg/dl (8.4-10.2); CREATININE 4.59 mg/dl (0.61-1.24); MAGNESIUM 1.9 mg/dl (1.7-2.5); POTASSIUM 3.8 mmol/L (3.5-5.1)
[2017-04-29] MEDS: SOD FERRIC GLUC COMPLX 125 MG in SOD CHLORIDE 0.9% 100 ML IVPB SCH (14:35)
[2017-04-29] MEDS: EPOETIN 10000 UNITS/1 ML INJ (ESRD) SC SCH (14:35)
[2017-04-29] MEDS: DOCUSATE SODIUM 100 MG CAP PO PRN ×2 (17:38→21:30)
[2017-04-29] MEDS: ALBUTEROL/IPRATROPIUM (NEB) 3 ML AMP HHN PRN (20:02)
[2017-04-29] MEDS: CLOPIDOGREL 75 MG TAB PO SCH (20:57)
[2017-04-29] MEDS: ATORVASTATIN 40 MG TAB PO SCH (20:57)
[2017-04-29] MEDS: ASPIRIN (EC) 81 MG TAB PO SCH (20:57)
[2017-04-30] VITALS (10 sets, daily range): BP systolic 113–127; BP diastolic 50–76; PULSE 93–100; RESP 19–21
[2017-04-30] MEDS: ALBUTEROL/IPRATROPIUM (NEB) 3 ML AMP HHN PRN ×5 (00:10→20:16)
[2017-04-30 07:19] LABS: ADD SCAN DIFF NO
[2017-04-30 07:22] LABS: ABNORMAL IP MESSAGE 1; BASOPHILS % 0.3 % (0.0-2.0); EOSINOPHILS # 0.1 10^3/ul (0.0-0.5); EOSINOPHILS % 1.1 % (0.0-7.0); HEMATOCRIT 29.9 % (42.0-52.0); HEMOGLOBIN 8.9 g/dl (14.0-18.0); LYMPHOCYTES # 0.9 10^3/ul (0.8-2.9); LYMPHOCYTES % 13.4 % (15.0-51.0); MEAN CORPUSCULAR HEMOGLOBIN 28.8 pg (29.0-33.0); MEAN CORPUSCULAR HGB CONC 29.8 g/dl (32.0-37.0); MEAN CORPUSCULAR VOLUME 96.8 fl (82.0-101.0); MEAN PLATELET VOLUME 10.2 fl (7.4-10.4); MONOCYTE # 0.4 10^3/ul (0.3-0.9); MONOCYTES % 5.7 % (0.0-11.0); NEUTROPHIL # 5.1 10^3/ul (1.6-7.5); NEUTROPHILS % 79.2 % (39.0-77.0); PLATELET COUNT 170 10^3/UL (140-415); RED BLOOD COUNT 3.09 10^6/ul (4.70-6.10); RED CELL DISTRIBUTION WIDTH 22.6 % (11.5-14.5); WHITE BLOOD COUNT 6.5 10^3/ul (4.8-10.8)
[2017-04-30 07:45] LABS: CALCIUM 9.4 mg/dl (8.4-10.2); CREATININE 4.02 mg/dl (0.61-1.24); PHOSPHORUS 3.1 mg/dl (2.5-4.9); POTASSIUM 3.4 mmol/L (3.5-5.1)
[2017-04-30] MEDS: SEVELAMER 800 MG TAB PO SCH ×3 (07:53→17:48)
[2017-04-30] MEDS: ROPINIROLE 1 MG TAB PO PRN ×3 (07:53→20:53)
--- NOTE | 2017-04-30 07:57 | PN ---
Date/Time of Note Date/Time of Note DATE: 04/30/17 TIME: 07:54 Assessment/Plan VTE Prophylaxis VTE Prophylaxis Intervention: other Lines/Catheters IV C[facility]ter Type (from [facility]): Saline Lock Urinary Cath still in place: No Assessment/Plan Assessment/Plan 1. CHF resolving 2. ASHD with angina 3. CKD, to have HD today 4. Await case management eval re transfer to acute rehab, continue PT 5. Constipation is addressed 6. Anemia improved after 2 units packed cells Subjective 24 Hr Interval Summary Respiratory: cough (mild and not productive), No shortness of breath Cardiovascular: No chest pain Gastrointestinal: constipation Genitourinary: no complaints Exam/Review of Systems Vital Signs Vitals Vital Signs Date Time Temp Pulse Resp B/P Pulse Ox O2 Delivery O2 Flow Rate FiO2 04/30/17 07:08 97.9 98 19 116/53 97 04/30/17 04:21 Nasal Cannula 6.0 04/28/17 01:04 Intake and Output 04/29/17 04/29/17 04/30/17 15:00 23:00 07:00 Intake Total 500 ml 810 ml 250 ml Output Total 1500 ml Balance -1000 ml 810 ml 250 ml Exam Neck: jvd Respiratory: diminished breath sounds (with few rales) Cardiovascular: regular rate and rhythm Gastrointestinal: soft Extremities: No edema Results Result Diagram: 04/30/1745 04/30/17 0645 Results 24 hrs Laboratory Tests Test 04/29/17 12:10 04/30/17 06:25 04/30/17 06:45 White Blood Count 5.4 6.5 # Red Blood Count 2.24 L 3.09 #L Hemoglobin 6.7 *L 8.9 #L Hematocrit 22.3 L 29.9 #L Mean Corpuscular Volume 99.6 96.8 Mean Corpuscular Hemoglobin 29.9 28.8 L Mean Corpuscular Hemoglobin Concent 30.0 L 29.8 L Red Cell Distribution Width 19.7 H 22.6 H Platelet Count 156 170 Mean Platelet Volume 9.8 10.2 Neutrophils % 76.0 79.2 H Lymphocytes % 16.2 13.4 L Monocytes % 5.9 5.7 Eosinophils % 1.1 1.1 Basophils % 0.4 0.3 Nucleated Red Blood Cells % 0.0 0.0 Neutrophils # 4.1 5.1 Lymphocytes # 0.9 0.9 Monocytes # 0.3 0.4 Eosinophils # 0.1 0.1 Basophils # 0.0 0.0 Nucleated Red Blood Cells # 0.0 0.0 Sodium Level 135 138 Potassium Level 3.8 3.4 L Chloride Level 93 L 97 Carbon Dioxide Level 33 H 31 Anion Gap 13 13 Blood Urea Nitrogen 23 H 20 Creatinine 4.59 H 4.02 H Glucose Level 94 95 Calcium Level 9.2 9.4 Magnesium Level 1.9 Lab Scanned Report BLOOD TRANSFUSION Phosphorus Level 3.1 Medications Medications Current Medications Allopurinol (Zyloprim) 100 mg DAILY PO Last administered on 04/29/17 08:37; Admin Dose 100 MG; Start 04/25/17 at 09:00 Alprazolam (Xanax) 0.25 mg QHS PRN PO ANXIETY Last administered on 04/24/17 21: 17; Admin Dose 0.25 MG; Start 04/24/17 at 13:00 Aspirin (Halfprin) 81 mg QHS PO Last administered on 04/29/17 20:57; Admin Dose 81 MG; Start 04/24/17 at 21:00 Atorvastatin Calcium (Lipitor) 40 mg QHS PO Last administered on 04/29/17 20: 57; Admin Dose 40 MG; Start 04/24/17 at 21:00 Clopidogrel Bisulfate (plaVIX) 75 mg QHS PO Last administered on 04/29/17 20: 57; Admin Dose 75 MG; Start 04/24/17 at 21:00 Acetaminophen/ Hydrocodone Bitart ([place] (7.5-325)) 1 tab DAILY PRN PO SEVERE PAIN LEVEL 7-10; Start 04/24/17 at 13:00 Losartan Potassium (Cozaar) 25 mg DAILY PO Last administered on 04/26/17 09:38 ; Admin Dose 25 MG; Start 04/24/17 at 13:00 Multivit/Ca Carb/ B Cmplx/FA/Prenat (Gi-Evelio) 1 tab DAILY PO Last administered on 04/29/17 08:37; Admin Dose 1 TAB; Start 04/24/17 at 13:00 Nitroglycerin (Nitroglycerin ([place])) 1 spray Q5M PRN TL CHEST PAIN; Start 04/24 at 13:00 Pantoprazole (Protonix Tab) 40 mg Q12 PO Last administered on 04/29/17 20:57; Admin Dose 40 MG; Start 04/24/17 at 13:00 Ranolazine (Ranexa) 500 mg Q12 PO Last administered on 04/29/17 20:57; Admin Dose 500 MG; Start 04/24/17 at 13:00 Zolpidem Tartrate (Ambien) 7.5 mg QHS PRN PO INSOMNIA; Start 04/24/17 at 13:00 Ondansetron HCl (Zofran Tab) 4 mg Q6H PRN PO NAUSEA AND/OR VOMITING Last administered on 04/25/17 17:42; Admin Dose 4 MG; Start 04/24/17 at 13:30 Acetaminophen (Tylenol Tab) 650 mg Q6H PRN PO PAIN LEVEL 1-3 OR FEVER Last administered on 04/26/17 21:39; Admin Dose 650 MG; Start 04/24/17 at 13:30 Acetaminophen/ Hydrocodone Bitart ([place] (5/325)) 1 tab Q6H PRN PO MODERATE PAIN LEVEL 4-6; Start 04/24/17 at 13:30 Docusate Sodium (Colace) 100 mg Q12H PRN PO CONSTIPATION Last administered on 21:30; Admin Dose 100 MG; Start 04/24/17 at 13:30 Epoetin Lyle (Epogen (Esrd)) 10,000 units MoWeFr@17 SC Last administered on 17:43; Admin Dose 10,000 UNITS; Start 04/24/17 at 17:00 Al Hydrox/Mg Hydrox/Simethicone (Mag-Al Plus) 30 ml Q4H PRN PO GASTROINTESTINAL UPSET; Start 04/25/17 at 18:00 Morphine Sulfate (morphine) 1 mg Q4H PRN IV PAIN LEVEL 4-6 Last administered on 04/25/17 18:11; Admin Dose 1 MG; Start 04/25/17 at 18:00 Metoprolol Tartrate (Lopressor) 25 mg BID PO Last administered on 04/26/17 11: 49; Admin Dose 25 MG; Start 04/26/17 at 11:00 Ropinirole HCl (Requip) 1 mg QID PRN PO restless legs Last administered on 04/29 21:30; Admin Dose 1 MG; Start 04/27/17 at 09:00 Salmeterol Xinafoate/ Fluticasone 1 inh 1 inh BID INH Last administered on 04/29 20:57; Admin Dose 1 INH; Start 04/27/17 at 09:00 Ferric Sodium Gluconate Complex/ Sodium Chloride (Ferrlecit/NS) 110 ml @ 110 mls/hr Q24H IVPB Last administered on 04/29/17 14:35; Admin Dose 110 MLS/HR; Start 04/28/17 at 11:00; Stop 05/02/17 at 11:59 ALONZO SERRA MD Apr 30, 2017 07:56
[2017-04-30] MEDS ORDERED: POTASSIUM CHLORIDE (SR) 10 MEQ TAB PO ONE (08:00)
[2017-04-30] MEDS: RANOLAZINE (SR) 500 MG TAB PO SCH ×2 (09:00→20:52)
[2017-04-30] MEDS: LOSARTAN 25 MG TAB PO SCH (09:00)
[2017-04-30] MEDS: METOPROLOL 25 MG TAB PO SCH ×2 (09:00→20:52)
[2017-04-30] MEDS: PANTOPRAZOLE (EC) 40 MG TAB PO SCH ×2 (11:10→20:52)
[2017-04-30] MEDS: MULTIVIT/CA CARB/B CMPLX/FA TAB PO SCH (11:10)
[2017-04-30] MEDS: ALLOPURINOL 100 MG TAB PO SCH (11:10)
[2017-04-30] MEDS: SALMETEROL/FLUTICASONE 250/50 INHA INH SCH ×2 (11:11→20:51)
[2017-04-30] MEDS: ONDANSETRON 4 MG TAB PO PRN (11:46)
[2017-04-30] MEDS: SOD FERRIC GLUC COMPLX 125 MG in SOD CHLORIDE 0.9% 100 ML IVPB SCH (12:04)
[2017-04-30] MEDS: CLOPIDOGREL 75 MG TAB PO SCH (20:52)
[2017-04-30] MEDS: ASPIRIN (EC) 81 MG TAB PO SCH (20:52)
[2017-04-30] MEDS: ATORVASTATIN 40 MG TAB PO SCH (20:52)
[2017-04-30] MEDS: BISACODYL (EC) 5 MG TAB PO PRN (20:56)
[2017-04-30] MEDS: DOCUSATE SODIUM 100 MG CAP PO PRN (20:56)
[2017-04-30] MEDS: ALPRAZOLAM 0.25 MG TAB PO PRN (23:50)
[2017-05-01] VITALS (16 sets, daily range): BP systolic 102–141; BP diastolic 39–72; PULSE 84–101; RESP 18–20
[2017-05-01] MEDS: ALBUTEROL/IPRATROPIUM (NEB) 3 ML AMP HHN PRN ×2 (00:19→04:34)
--- NOTE | 2017-05-01 01:29 | CONS ---
Date/Time of Note Date/Time of Note DATE: 04/30/17 TIME: 08:30 Assessment/Plan Assessment/Plan Chief Complaint/Hosp Course - recurrent NSTEMI- trop elevated 1.5 downtrending. no chest pain. has cont mild sob. no revasc targets on recent cath, likely 2/2 chronic cad with [employer] of multiple small vessels. cont medical therapy with statin asa/plavix and tranfusion for anemia. - ICM with LVEF 30-35% s/p BiV ICD - acute on chronic systolic heart failure- recurrent admissions, no revasc targets. unable to tolerate much medication due to lower bp - LBBB s/p biV ICD - CAD s/p extensive PCI hx including LM, prox/mid LAD, prox/mid/distal RCA. no revasc targets on recent LHC. - ESRD on iHD - Anemia- severe, no e/o gi blood loss. responded to transfusion with 2uprbc Recommendations - there is occlusion of known D1 sub-branch which was jailed and unable to be intervened on, also with chronically occluded LCx system, may be culprit for current troponin leak. - cont asa/plavix - cont statin - bb titration as tolerated by bp - ranexa - fluid mgmt with iHD, low na diet - consider low dose digoxin, dose by level Problems: Consultation Date/Type/Reason Admit Date/Time Apr 28, 2017 at 10:36 Type of Consultation: Cardiology Referring Provider: ALONZO SERRA MD 24 HR Interval Summary Free Text/Dictation no acute events. pt s/p transfusion and iHD run. states was up with PT yesterday afternoon. only walking a few feet then sob. no chest pain/pressure. no pnd, orhtopnea, wearing o2. tele reviewed no events, biv paced Detailed Summary Eyes: no complaints ENT: no complaints Respiratory: shortness of breath Cardiovascular: no complaints Gastrointestinal: no complaints Exam/Review of Systems Vital Signs Vitals Vital Signs Date Time Temp Pulse Resp B/P Pulse Ox O2 Delivery O2 Flow Rate FiO2 05/01/17 00:19 6.0 05/01/17 00:19 90 20 98 Nasal Cannula 05/01/17 00:15 98.5 102/50 04/28/17 01:04 Intake and Output 04/30/17 04/30/17 05/01/17 15:00 23:00 07:00 Intake Total 300 ml 120 ml Balance 300 ml 120 ml Exam Constitutional: alert, oriented Psych: depression Head: normocephalic Eyes: nl conjunctiva ENMT: nl external ears & nose Neck: jvd, supple Respiratory: crackles in base/lateral wright Cardiovascular: regular rate and rhythm, No edema Gastrointestinal: soft Ext: L fistula + thrill Results Result Diagram: 04/30/17 0645 04/30/17 0645 Results 24 hrs Laboratory Tests Test 04/30/17 06:25 04/30/17 06:45 Lab Scanned Report BLOOD TRANSFUSION White Blood Count 6.5 # Red Blood Count 3.09 #L Hemoglobin 8.9 #L Hematocrit 29.9 #L Mean Corpuscular Volume 96.8 Mean Corpuscular Hemoglobin 28.8 L Mean Corpuscular Hemoglobin Concent 29.8 L Red Cell Distribution Width 22.6 H Platelet Count 170 Mean Platelet Volume 10.2 Neutrophils % 79.2 H Lymphocytes % 13.4 L Monocytes % 5.7 Eosinophils % 1.1 Basophils % 0.3 Nucleated Red Blood Cells % 0.0 Neutrophils # 5.1 Lymphocytes # 0.9 Monocytes # 0.4 Eosinophils # 0.1 Basophils # 0.0 Nucleated Red Blood Cells # 0.0 Sodium Level 138 Potassium Level 3.4 L Chloride Level 97 Carbon Dioxide Level 31 Anion Gap 13 Blood Urea Nitrogen 20 Creatinine 4.02 H Glucose Level 95 Calcium Level 9.4 Phosphorus Level 3.1 Medications Medications Current Medications Allopurinol (Zyloprim) 100 mg DAILY PO Last administered on 04/30/17 11:10; Admin Dose 100 MG; Start 04/25/17 at 09:00 Alprazolam (Xanax) 0.25 mg QHS PRN PO ANXIETY Last administered on 04/30/17 23 :50; Admin Dose 0.25 MG; Start 04/24/17 at 13:00 Aspirin (Halfprin) 81 mg QHS PO Last administered on 04/30/17 20:52; Admin Dose 81 MG; Start 04/24/17 at 21:00 Atorvastatin Calcium (Lipitor) 40 mg QHS PO Last administered on 04/30/17 20: 52; Admin Dose 40 MG; Start 04/24/17 at 21:00 Clopidogrel Bisulfate (plaVIX) 75 mg QHS PO Last administered on 04/30/17 20: 52; Admin Dose 75 MG; Start 04/24/17 at 21:00 Acetaminophen/ Hydrocodone Bitart ([place] (7.5-325)) 1 tab DAILY PRN PO SEVERE PAIN LEVEL 7-10; Start 04/24/17 at 13:00 Losartan Potassium (Cozaar) 25 mg DAILY PO Last administered on 04/26/17 09:38 ; Admin Dose 25 MG; Start 04/24/17 at 13:00 Multivit/Ca Carb/ B Cmplx/FA/Prenat (Gi-Evelio) 1 tab DAILY PO Last administered on 04/30/17 11:10; Admin Dose 1 TAB; Start 04/24/17 at 13:00 Nitroglycerin (Nitroglycerin ([place])) 1 spray Q5M PRN TL CHEST PAIN; Start 04/24 at 13:00 Pantoprazole (Protonix Tab) 40 mg Q12 PO Last administered on 04/30/17 20:52; Admin Dose 40 MG; Start 04/24/17 at 13:00 Ranolazine (Ranexa) 500 mg Q12 PO Last administered on 04/30/17 20:52; Admin Dose 500 MG; Start 04/24/17 at 13:00 Zolpidem Tartrate (Ambien) 7.5 mg QHS PRN PO INSOMNIA; Start 04/24/17 at 13:00 Ondansetron HCl (Zofran Tab) 4 mg Q6H PRN PO NAUSEA AND/OR VOMITING Last administered on 04/30/17 11:46; Admin Dose 4 MG; Start 04/24/17 at 13:30 Acetaminophen (Tylenol Tab) 650 mg Q6H PRN PO PAIN LEVEL 1-3 OR FEVER Last administered on 04/26/17 21:39; Admin Dose 650 MG; Start 04/24/17 at 13:30 Acetaminophen/ Hydrocodone Bitart ([place] (5/325)) 1 tab Q6H PRN PO MODERATE PAIN LEVEL 4-6; Start 04/24/17 at 13:30 Docusate Sodium (Colace) 100 mg Q12H PRN PO CONSTIPATION Last administered on 20:56; Admin Dose 100 MG; Start 04/24/17 at 13:30 Epoetin Lyle (Epogen (Esrd)) 10,000 units MoWeFr@17 SC Last administered on 17:43; Admin Dose 10,000 UNITS; Start 04/24/17 at 17:00 Al Hydrox/Mg Hydrox/Simethicone (Mag-Al Plus) 30 ml Q4H PRN PO GASTROINTESTINAL UPSET; Start 04/25/17 at 18:00 Morphine Sulfate (morphine) 1 mg Q4H PRN IV PAIN LEVEL 4-6 Last administered on 04/25/17 18:11; Admin Dose 1 MG; Start 04/25/17 at 18:00 Metoprolol Tartrate (Lopressor) 25 mg BID PO Last administered on 04/26/17 11: 49; Admin Dose 25 MG; Start 04/26/17 at 11:00 Ropinirole HCl (Requip) 1 mg QID PRN PO restless legs Last administered on 04/30 20:53; Admin Dose 1 MG; Start 04/27/17 at 09:00 Salmeterol Xinafoate/ Fluticasone 1 inh 1 inh BID INH Last administered on 04/30 20:51; Admin Dose 1 INH; Start 04/27/17 at 09:00 Ferric Sodium Gluconate Complex/ Sodium Chloride (Ferrlecit/NS) 110 ml @ 110 mls/hr Q24H IVPB Last administered on 04/30/17 12:04; Admin Dose 110 MLS/HR; Start 04/28/17 at 11:00; Stop 05/02/17 at 11:59 Bisacodyl (Dulcolax) 10 mg DAILY PRN PO CONSTIPATION Last administered on 20:56; Admin Dose 10 MG; Start 04/30/17 at 08:00 Procedures Procedures cxr report reviewed in SUSANA Tejeda May 01, 2017 01:29
--- NOTE | 2017-05-01 08:10 | PN ---
Date/Time of Note Date/Time of Note DATE: 05/01/17 TIME: 08:06 Assessment/Plan VTE Prophylaxis VTE Prophylaxis Intervention: SCD's, other Lines/Catheters IV Catheter Type (from Nrs): Saline Lock Urinary Cath still in place: No Assessment/Plan Assessment/Plan 1. Intermittent cough and sob remains problematic, I think this is not cardiac related (chf), CT chest ordered and will ask pul and ENT to see. 2. CKD sec to DM, to have hd today 3. Anemia stable 4. Case management still working on dc plans 5. ASHD, stable without rec angina Subjective 24 Hr Interval Summary Respiratory: shortness of breath (is intermittent, dry and when taking a deep coughs tip when taking a deep breathe) Cardiovascular: No chest pain Gastrointestinal: no complaints Genitourinary: no complaints Exam/Review of Systems Vital Signs Vitals Vital Signs Date Time Temp Pulse Resp B/P Pulse Ox O2 Delivery O2 Flow Rate FiO2 05/01/17 08:01 97 Room Air 05/01/17 07:43 98.4 95 19 117/58 05/01/17 04:35 6.0 04/28/17 01:04 Intake and Output 04/30/17 04/30/17 05/01/17 15:00 23:00 07:00 Intake Total 300 ml 120 ml Balance 300 ml 120 ml Exam Neck: No jvd Respiratory: clear to auscultation (excpet for a few dry rales) Cardiovascular: regular rate and rhythm, No S3, No S4 Gastrointestinal: soft Extremities: No edema (and no calf tend) Results Result Diagram: 04/30/17 0645 04/30/1745 Medications Medications Current Medications Allopurinol (Zyloprim) 100 mg DAILY PO Last administered on 04/30/17 11:10; Admin Dose 100 MG; Start 04/25/17 at 09:00 Alprazolam (Xanax) 0.25 mg QHS PRN PO ANXIETY Last administered on 04/30/17 23 :50; Admin Dose 0.25 MG; Start 04/24/17 at 13:00 Aspirin (Halfprin) 81 mg QHS PO Last administered on 04/30/17 20:52; Admin Dose 81 MG; Start 04/24/17 at 21:00 Atorvastatin Calcium (Lipitor) 40 mg QHS PO Last administered on 04/30/17 20: 52; Admin Dose 40 MG; Start 04/24/17 at 21:00 Clopidogrel Bisulfate (plaVIX) 75 mg QHS PO Last administered on 04/30/17 20: 52; Admin Dose 75 MG; Start 04/24/17 at 21:00 Acetaminophen/ Hydrocodone Bitart ([place] (7.5-325)) 1 tab DAILY PRN PO SEVERE PAIN LEVEL 7-10; Start 04/24/17 at 13:00 Losartan Potassium (Cozaar) 25 mg DAILY PO Last administered on 04/26/17 09:38 ; Admin Dose 25 MG; Start 04/24/17 at 13:00 Multivit/Ca Carb/ B Cmplx/FA/Prenat (Gi-Evelio) 1 tab DAILY PO Last administered on 04/30/17 11:10; Admin Dose 1 TAB; Start 04/24/17 at 13:00 Nitroglycerin (Nitroglycerin ([place])) 1 spray Q5M PRN TL CHEST PAIN; Start 04/24 at 13:00 Pantoprazole (Protonix Tab) 40 mg Q12 PO Last administered on 04/30/17 20:52; Admin Dose 40 MG; Start 04/24/17 at 13:00 Ranolazine (Ranexa) 500 mg Q12 PO Last administered on 04/30/17 20:52; Admin Dose 500 MG; Start 04/24/17 at 13:00 Zolpidem Tartrate (Ambien) 7.5 mg QHS PRN PO INSOMNIA; Start 04/24/17 at 13:00 Ondansetron HCl (Zofran Tab) 4 mg Q6H PRN PO NAUSEA AND/OR VOMITING Last administered on 04/30/17 11:46; Admin Dose 4 MG; Start 04/24/17 at 13:30 Acetaminophen (Tylenol Tab) 650 mg Q6H PRN PO PAIN LEVEL 1-3 OR FEVER Last administered on 04/26/17 21:39; Admin Dose 650 MG; Start 04/24/17 at 13:30 Acetaminophen/ Hydrocodone Bitart ([place] (5/325)) 1 tab Q6H PRN PO MODERATE PAIN LEVEL 4-6; Start 04/24/17 at 13:30 Docusate Sodium (Colace) 100 mg Q12H PRN PO CONSTIPATION Last administered on 20:56; Admin Dose 100 MG; Start 04/24/17 at 13:30 Epoetin Lyle (Epogen (Esrd)) 10,000 units MoWeFr@17 SC Last administered on 17:43; Admin Dose 10,000 UNITS; Start 04/24/17 at 17:00 Al Hydrox/Mg Hydrox/Simethicone (Mag-Al Plus) 30 ml Q4H PRN PO GASTROINTESTINAL UPSET; Start 04/25/17 at 18:00 Morphine Sulfate (morphine) 1 mg Q4H PRN IV PAIN LEVEL 4-6 Last administered on 04/25/17 18:11; Admin Dose 1 MG; Start 04/25/17 at 18:00 Metoprolol Tartrate (Lopressor) 25 mg BID PO Last administered on 04/26/17 11: 49; Admin Dose 25 MG; Start 04/26/17 at 11:00 Ropinirole HCl (Requip) 1 mg QID PRN PO restless legs Last administered on 04/30 20:53; Admin Dose 1 MG; Start 04/27/17 at 09:00 Salmeterol Xinafoate/ Fluticasone 1 inh 1 inh BID INH Last administered on 04/30 20:51; Admin Dose 1 INH; Start 04/27/17 at 09:00 Ferric Sodium Gluconate Complex/ Sodium Chloride (Ferrlecit/NS) 110 ml @ 110 mls/hr Q24H IVPB Last administered on 04/30/17 12:04; Admin Dose 110 MLS/HR; Start 04/28/17 at 11:00; Stop 05/02/17 at 11:59 Bisacodyl (Dulcolax) 10 mg DAILY PRN PO CONSTIPATION Last administered on 20:56; Admin Dose 10 MG; Start 04/30/17 at 08:00 ALONZO SERRA MD May 01, 2017 08:10
[2017-05-01] MEDS: SEVELAMER 800 MG TAB PO SCH ×2 (08:11→11:50)
[2017-05-01] MEDS: SALMETEROL/FLUTICASONE 250/50 INHA INH SCH (08:11)
[2017-05-01] MEDS: ALLOPURINOL 100 MG TAB PO SCH (08:12)
[2017-05-01] MEDS: MULTIVIT/CA CARB/B CMPLX/FA TAB PO SCH (08:12)
[2017-05-01] MEDS: RANOLAZINE (SR) 500 MG TAB PO SCH (08:12)
[2017-05-01] MEDS: PANTOPRAZOLE (EC) 40 MG TAB PO SCH (08:12)
[2017-05-01] MEDS: ROPINIROLE 1 MG TAB PO PRN (08:13)
[2017-05-01] MEDS: LOSARTAN 25 MG TAB PO SCH (08:14)
[2017-05-01] MEDS: METOPROLOL 25 MG TAB PO SCH (08:14)
[2017-05-01] MEDS ORDERED: POTASSIUM CHLORIDE (SR) 10 MEQ TAB PO ONE (08:30)
[2017-05-01] MEDS ORDERED: HEPARIN 5,000 UNIT/0.5 ML VIAL SC SCH (09:00)
[2017-05-01] MEDS: ONDANSETRON 4 MG TAB PO PRN (09:59)
[2017-05-01] MEDS: SOD FERRIC GLUC COMPLX 125 MG in SOD CHLORIDE 0.9% 100 ML IVPB SCH (10:00)
[2017-05-01] MEDS: EPOETIN 10000 UNITS/1 ML INJ (ESRD) SC SCH (10:04)
[2017-05-01] MEDS: ALBUMIN HUMAN 25% 50 ML IV PRN (11:55)
[2017-05-01] MEDS: BISACODYL (EC) 5 MG TAB PO PRN (14:16)
--- NOTE | 2017-05-01 15:06 | CONS ---
Date/Time of Note Date/Time of Note DATE: 05/01/17 TIME: 14:56 Assessment/Plan Assessment/Plan Chief Complaint/Hosp Course Assessment 1. Dyspnea likely secondary to pulmonary edema 2. Diabetes mellitus 3. End-stage renal failure on hemodialysis 4. History of chronic anemia secondary to end-stage renal failure. 5. Recent biventricular pacemaker placement Plan 1. CT chest to evaluate lung parenchyma 2. Continue with dialysis and volume removal 3. Outpatient pulmonary function testing 4. Cardiac recommendations Problems: Consultation Date/Type/Reason Admit Date/Time Apr 28, 2017 at 10:36 Date of Consultation: May 01, 2017 Reason for Consultation Cough and shortness of breath Hx of Present Illness 71-year-old gentleman with history of end-stage renal failure, coronary artery disease hypertension hyperlipidemia. Admitted for increasing shortness of breath orthopnea PND. Upon further questioning he states he has had a several month history of chronic cough which is occasionally productive occasionally nonproductive. Denies any fever chills chest pain or palpitations. No hemoptysis hematemesis. No fever or chills. He continues hemodialysis appears to be close to his dry weight. Patient is a lifelong non-smoker and history of inhalational lung injury. Constitutional: chills, diaphoresis, disoriented, febrile, improved, no complaints, other, poor po, requiring IVF, requiring O2 Eyes: no complaints ENT: no complaints Respiratory: shortness of breath (is intermittent, dry and when taking a deep coughs tip when taking a deep breathe) Cardiovascular: No chest pain Gastrointestinal: no complaints Genitourinary: no complaints Neurologic: no complaints Psychological: no complaints Past Medical History Coronary artery disease with biventricular pacemaker. End-stage renal failure on hemodialysis. Medical History: other (Hx CAD with [place] 12/05 and subsequent stent placement, AODM diet controlled, Rec CHF, HJx GERD, hx restless leg syndrome) Social History Smoking Status: Former smoker Drug Use: none Exam/Review of Systems Vital Signs Vitals Vital Signs Date Time Temp Pulse Resp B/P Pulse Ox O2 Delivery O2 Flow Rate FiO2 05/01/17 12:00 87 05/01/17 11:40 98.2 19 134/50 95 05/01/17 08:01 Room Air 05/01/17 08:00 5.0 04/28/17 01:04 Intake and Output 04/30/17 04/30/1705/01/17 15:00 23:00 07:00 Intake Total 300 ml 120 ml Balance 300 ml 120 ml Exam GENERAL: VITAL SIGNS: per chart NECK: Supple. No JVD or lymphadenopathy. CARDIAC EXAM: S1, S2. No added sounds or murmurs. CHEST: clear bilaterally, No added sounds, rales or wheezes ABDOMEN: Soft, nontender. No guarding or rebound. EXTREMITIES: No cyanosis, clubbing or edema. NEUROLOGIC: Generalized weakness. No focal deficits. Elderly-appearing gentleman comfortable at rest no acute distress Results Result Diagram: 04/30/1764404/30/17644 Medications Medications Current Medications Allopurinol (Zyloprim) 100 mg DAILY PO Last administered on 05/01/17 08:12; Admin Dose 100 MG; Start 04/25/17 at 09:00 Alprazolam (Xanax) 0.25 mg QHS PRN PO ANXIETY Last administered on 04/30/17 23 :50; Admin Dose 0.25 MG; Start 04/24/17 at 13:00 Aspirin (Halfprin) 81 mg QHS PO Last administered on 04/30/17 20:52; Admin Dose 81 MG; Start 04/24/17 at 21:00 Atorvastatin Calcium (Lipitor) 40 mg QHS PO Last administered on 04/30/17 20: 52; Admin Dose 40 MG; Start 04/24/17 at 21:00 Clopidogrel Bisulfate (plaVIX) 75 mg QHS PO Last administered on 04/30/17 20: 52; Admin Dose 75 MG; Start 04/24/17 at 21:00 Acetaminophen/ Hydrocodone Bitart ([place] (7.5-325)) 1 tab DAILY PRN PO SEVERE PAIN LEVEL 7-10; Start 04/24/17 at 13:00 Losartan Potassium (Cozaar) 25 mg DAILY PO Last administered on 04/26/17 09:38 ; Admin Dose 25 MG; Start 04/24/17 at 13:00 Multivit/Ca Carb/ B Cmplx/FA/Prenat (Gi-Evelio) 1 tab DAILY PO Last administered on 05/01/17 08:12; Admin Dose 1 TAB; Start 04/24/17 at 13:00 Nitroglycerin (Nitroglycerin ([place])) 1 spray Q5M PRN TL CHEST PAIN; Start 04/24 at 13:00 Pantoprazole (Protonix Tab) 40 mg Q12 PO Last administered on 05/01/17 08:12; Admin Dose 40 MG; Start 04/24/17 at 13:00 Ranolazine (Ranexa) 500 mg Q12 PO Last administered on 05/01/17 08:12; Admin Dose 500 MG; Start 04/24/17 at 13:00 Zolpidem Tartrate (Ambien) 7.5 mg QHS PRN PO INSOMNIA; Start 04/24/17 at 13:00 Ondansetron HCl (Zofran Tab) 4 mg Q6H PRN PO NAUSEA AND/OR VOMITING Last administered on 05/01/17 09:59; Admin Dose 4 MG; Start 04/24/17 at 13:30 Acetaminophen (Tylenol Tab) 650 mg Q6H PRN PO PAIN LEVEL 1-3 OR FEVER Last administered on 04/26/17 21:39; Admin Dose 650 MG; Start 04/24/17 at 13:30 Acetaminophen/ Hydrocodone Bitart ([place] (5/325)) 1 tab Q6H PRN PO MODERATE PAIN LEVEL 4-6; Start 04/24/17 at 13:30 Docusate Sodium (Colace) 100 mg Q12H PRN PO CONSTIPATION Last administered on 20:56; Admin Dose 100 MG; Start 04/24/17 at 13:30 Epoetin Lyle (Epogen (Esrd)) 10,000 units MoWeFr@17 SC Last administered on 10:04; Admin Dose 10,000 UNITS; Start 04/24/17 at 17:00 Al Hydrox/Mg Hydrox/Simethicone (Mag-Al Plus) 30 ml Q4H PRN PO GASTROINTESTINAL UPSET; Start 04/25/17 at 18:00 Morphine Sulfate (morphine) 1 mg Q4H PRN IV PAIN LEVEL 4-6 Last administered on 04/25/17 18:11; Admin Dose 1 MG; Start 04/25/17 at 18:00 Metoprolol Tartrate (Lopressor) 25 mg BID PO Last administered on 04/26/17 11: 49; Admin Dose 25 MG; Start 04/26/17 at 11:00 Ropinirole HCl (Requip) 1 mg QID PRN PO restless legs Last administered on 05/01 08:13; Admin Dose 1 MG; Start 04/27/17 at 09:00 Salmeterol Xinafoate/ Fluticasone 1 inh 1 inh BID INH Last administered on 05/01 08:11; Admin Dose 1 INH; Start 04/27/17 at 09:00 Ferric Sodium Gluconate Complex/ Sodium Chloride (Ferrlecit/NS) 110 ml @ 110 mls/hr Q24H IVPB Last administered on 05/01/17 10:00; Admin Dose 110 MLS/HR; Start 04/28/17 at 11:00; Stop 05/02/17 at 11:59 Bisacodyl (Dulcolax) 10 mg DAILY PRN PO CONSTIPATION Last administered on 14:16; Admin Dose 10 MG; Start 04/30/17 at 08:00 Heparin Sodium (Porcine) (Heparin (5000 Units/0.5 ml)) 5,000 unit BID SC ; Start 05/01/17 at 09:00 MUKUND URBANO MD, [facility] May 01, 2017 15:05
--- NOTE | 2017-05-01 17:27 | CONS ---
Date/Time of Note Date/Time of Note DATE: 05/01/17 TIME: 17:27 Assessment/Plan Assessment/Plan Chief Complaint/Hosp Course - recurrent NSTEMI- trop elevated 1.5 downtrending. no chest pain. has cont mild sob. no revasc targets on recent cath, likely 2/2 chronic cad with [employer] of multiple small vessels. cont medical therapy with statin asa/plavix and tranfusion for anemia. - ICM with LVEF 30-35% s/p BiV ICD - acute on chronic systolic heart failure- recurrent admissions, no revasc targets. unable to tolerate much medication due to lower bp - LBBB s/p biV ICD - CAD s/p extensive PCI hx including LM, prox/mid LAD, prox/mid/distal RCA. no revasc targets on recent LHC. - ESRD on iHD - Anemia- severe, no e/o gi blood loss. responded to transfusion with 2uprbc Recommendations - there is occlusion of known D1 sub-branch which was jailed and unable to be intervened on, also with chronically occluded LCx system, may be culprit for current troponin leak. - cont asa/plavix - cont statin - bb titration as tolerated by bp - ranexa - fluid mgmt with iHD, low na diet -doing better with PT, likely anxiety component as well. agree with inpt pt/ot Problems: Consultation Date/Type/Reason Admit Date/Time Apr 28, 2017 at 10:36 Type of Consultation: Cardiology Referring Provider: ALONZO SERRA MD Exam/Review of Systems Vital Signs Vitals Vital Signs Date Time Temp Pulse Resp B/P Pulse Ox O2 Delivery O2 Flow Rate FiO2 05/01/17 16:53 6.0 05/01/17 16:00 98 05/01/17 15:28 98.0 18 108/39 97 05/01/17 08:01 Room Air 04/28/17 01:04 Intake and Output 04/30/17 04/30/17 05/01/17 14:59 22:59 06:59 Intake Total 300 ml 120 ml Balance 300 ml 120 ml Results Result Diagram: 04/30/17 0645 04/30/17 0645 SUSANA VASQUEZ May 01, 2017 17:27
--- NOTE | 2017-05-01 21:52 | RADRPT ---
PROCEDURE: CT Chest without contrast. CLINICAL INDICATION: Cough and shortness of breath. TECHNIQUE: Helical axial sections were obtained through the chest without intravenous contrast enh ancement. Coronal and sagittal reformatted images were obtained from the axial source images. Total exam DLP is 492.03 mGy-cm. CTDIvol is 13.87 mGy. One or more of the following dose reduction sourav hniques were used: Automated exposure control, adjustment of the mA and/or kV according to patient s ize, use of iterative reconstruction technique. COMPARISON: CT scan of the chest dated 01/29/2017. FINDINGS: There is mild ground-glass opacification in the upper lung zones consistent with an infectious or in flammatory process. Atelectasis is present at the lung bases posteriorly, likely related to moderat e bilateral pleural effusions with left worse than right. There is no pulmonary nodule or mass lesion. Mildly enlarged middle mediastinal lymph nodes are present as seen previously, probably benign. The re is a calcified right paratracheal lymph node from previous granulomatous disease. There is no axillary, supraclavicular, or internal mammary lymphadenopathy. The thoracic aorta is not dilated. There is calcification in the aorta consistent with atherosclero sis. The heart is enlarged. There is extensive coronary artery calcification. There is a right-sided bi ventricular pacemaker/internal cardiac defibrillator with leads in the right atrium, right ventricle , and coronary sinus. There is no pericardial effusion. Images through the upper abdomen demonstrate normal visualized portions of the liver, spleen, and ad renals. There is extensive sclerosis throughout the ribs and vertebrae consistent with probable renal osteod ystrophy. IMPRESSION: 1. Ground-glass opacification in the upper lung zones consistent with an inflammatory or an fractur es process. 2. Atelectasis at the lung bases posteriorly likely related to moderate bilateral pleural effusions with left worse than right. 3. Stable appearance of middle mediastinal mild lymph node enlargement. 4. Atherosclerosis. 5. Cardiomegaly. 6. Extensive coronary artery calcification. 7. Biventricular pacemaker/internal cardiac defibrillator. 8. 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 RPTAT: QQ .Lazaro Zavaleta MD, MD Date Time Electronically viewed and signed by .Lazaro Zavaleta MD, on 05/01/2017 21:51 .R/
== END 2017-05-01 16:30 | DRG 280 ==
LOC: E/R 08:40 → MS4 12:10 → TEL 04-25 08:25 → OBSVTOIN 04-28 10:36
PROVIDERS: ADMIT Internal Medicine; ATTEND Internal Medicine
PROC: 5A1D60Z (ICD-10-PCS; principal; 2017-04-28)
PROC: 4A033R1 Measurement of Arterial Saturation, Peripheral, Percutaneous Approach (ICD-10-PCS; 2017-04-28)
DX: I21.4 Non-ST elevation (NSTEMI) myocardial infarction (principal); I50.23 Acute on chronic systolic (congestive) heart failure; N17.9 Acute kidney failure, unspecified; N18.6 End stage renal disease; I13.2 Hypertensive heart and chronic kidney disease with heart failure and with stage 5 chronic kidney disease, or end stage renal disease; E11.22 Type 2 diabetes mellitus with diabetic chronic kidney disease; I25.10 Atherosclerotic heart disease of native coronary artery without angina pectoris; E78.5 Hyperlipidemia, unspecified; K21.9 Gastro-esophageal reflux disease without esophagitis; D63.1 Anemia in chronic kidney disease; R00.0 Tachycardia, unspecified; I25.5 Ischemic cardiomyopathy; K59.00 Constipation, unspecified; Z95.810 Presence of automatic (implantable) cardiac defibrillator; I25.2 Old myocardial infarction; Z91.15 Patient's noncompliance with renal dialysis; Z99.2 Dependence on renal dialysis; Z95.5 Presence of coronary angioplasty implant and graft; Z87.891 Personal history of nicotine dependence; Z79.82 Long term (current) use of aspirin
CPT/HCPCS: 36415; 36430; 36600; 71010; 71250; 80048; 80053; 82728; 82803; 83540; 83735; 84100; 84403; 84484; 85025; 85610; 85730; 86850; 86870; 86880; 86900; 86901; 86902; 86906; 86920; 86971; 90935; 93005; 93970; 94640; 94664; 97110; 97116; 97162; 97530; G0378; J2270; J2916; J7040; P9016; P9047; Q4081

== ENCOUNTER 2017-05-01 16:29 | Inpatient (IN) | payer MEDICARE, OTHER ==
[~2017-05-01 16:29] MED LIST changes: -CARI350T29 PO; +ESOM40CA PO; -GABA100C14 PO; +NEPH PO
[2017-05-01 20:15] VITALS: BP 81/38; RESP 19
[2017-05-01 20:45] VITALS: BP 105/56; RESP 20
--- NOTE | 2017-05-13 11:22 | DS ---
Date/Time of Note Date/Time of Note DATE: 05/13/17 TIME: 11:20 Discharge Summary Admission/Discharge Info Admit Date/Time May 01, 2017 at 17:16 Discharge Date/Time May 01, 2017 at 20:30 Discharge Diagnosis Chest pain, possible DE debility Patient Condition: Serious Hx of Present Illness Patient was admitted for rehabilitation program, however after arrival to the unit patient complained of chest pain, and was transferred to the acute hospital. Hospital Course Patient was admitted for rehabilitation program, however after arrival to the unit patient complained of chest pain, and was transferred to the acute hospital. Home Meds Active Scripts Losartan Potassium* (Losartan Potassium*) 25 Mg Tablet, 25 MG PO DAILY for 90 Days, TAB 3 Refills Prov:POP BOYCE MD 02/06/17 Pantoprazole* (Pantoprazole*) 40 Mg Tablet., 40 MG PO Q12 for 60 Days Prov:ALONZO SERRA MD 12/05/16 Reported Medications Multivit/Ca Carb/B Cmplx/Fa* (Gi-Calvin*) 1 Tab Tab, 1 TAB PO DAILY, TAB TAKE AFTER DIALYSIS (NEPHRO-CALVIN) 04/24/17 Esomeprazole Mag Trihydrate (Nexium) 40 Mg Capsule., 40 MG PO QAM, #30 CAP 04/24/17 Tiotropium [place] (Spiriva Respimat) 4 Gm Mist.inhal, 2 PUFF INHALATION DAILY, #1 INHALER 01/28/17 Nitroglycerin* (Nitroglycerin* [place]) 400 Mcg/[place] - 12 Gm [place], 1 SPRAY TL Q5M Y for CHEST PAIN, SPRAY 01/28/17 Ranolazine* (Ranexa*) 500 Mg Tab.sr.12h, 500 MG PO Q12, TAB 01/28/17 Sevelamer Carbonate* (Renvela*) 800 Mg Tablet, 0.8 GM PO WITH MEALS, TAB 01/28/17 Zolpidem Tartrate* (Zolpidem Tartrate*) 5 Mg Tablet, 7.5 MG PO QHS Y for INSOMNIA, #30 TAB 12/01/16 Ropinirole Hcl* (Ropinirole Hcl*) 0.5 Mg Tablet, 0.5 MG PO TID, TAB 12/01/16 Clopidogrel Bisulfate (Clopidogrel) 75 Mg Tablet, 75 MG PO QHS, #30 TAB 12/01/16 Hydrocodone/Acetaminophen ([place] 7.5-325 Tablet) 1 Each Tablet, 1 EACH PO DAILY Y for SEVERE PAIN LEVEL 7-10, TAB 12/01/16 Atorvastatin* (Atorvastatin*) 40 Mg Tablet, 40 MG PO QHS, #30 TAB 12/01/16 Aspirin* (Aspirin* [place]) 81 Mg Tablet.dr, 81 MG PO QHS, TAB 12/01/16 Alprazolam* (Alprazolam*) 0.25 Mg Tablet, 0.25 MG PO QHS Y for ANXIETY, TAB 12/01/16 Allopurinol* (Allopurinol*) 100 Mg Tablet, 100 MG PO DAILY, TAB 12/01/16 Primary Care Provider MD DURAN Gan LIVA L. MD May 13, 2017 11:22
== END 2017-05-01 20:30 | disposition short-term general hospital (02) | DRG 280 ==
LOC: VRC 17:16 → TEL 20:41
PROVIDERS: ADMIT Physical Medicine & Rehabilitation; ATTEND Internal Medicine
DX: I50.9 Heart failure, unspecified (principal); I21.4 Non-ST elevation (NSTEMI) myocardial infarction; N18.6 End stage renal disease; N17.9 Acute kidney failure, unspecified; I25.10 Atherosclerotic heart disease of native coronary artery without angina pectoris; Z99.2 Dependence on renal dialysis; D64.9 Anemia, unspecified; E11.22 Type 2 diabetes mellitus with diabetic chronic kidney disease; I25.5 Ischemic cardiomyopathy; K21.9 Gastro-esophageal reflux disease without esophagitis; Z95.5 Presence of coronary angioplasty implant and graft; R07.9 Chest pain, unspecified

== ENCOUNTER 2017-05-01 21:31 | Inpatient (IN) | payer MEDICARE, OTHER ==
[~2017-05-01] VITALS: Ht 170.2 cm; Wt 74.0 kg
[2017-05-01 20:50] VITALS: BP 105/56; RESP 20
[2017-05-01 21:33] VITALS: BP 105/56; PULSE 89; RESP 20
[2017-05-01 21:40] VITALS: PULSE 88
[2017-05-01 22:00] VITALS: BMI 25.5
[2017-05-01] MEDS ORDERED: NITROGLYCERIN (SL) 0.4 MG TAB SL PRN (22:30)
[2017-05-01 22:50] VITALS: BP 108/75; PULSE 89; RESP 20
[2017-05-01] MEDS: morphine 4 MG/ML VIAL IV PRN (22:55)
[2017-05-01 23:26] VITALS: Ht 170.2 cm; Wt 74.0 kg
[2017-05-02] VITALS (12 sets, daily range): BP systolic 95–122; BP diastolic 37–61; PULSE 80–94; RESP 16–20
[2017-05-02] MEDS: ALBUTEROL/IPRATROPIUM (NEB) 3 ML AMP HHN SCH ×4 (01:37→19:50)
[2017-05-02] MEDS: PANTOPRAZOLE (EC) 40 MG TAB PO SCH (06:00)
[2017-05-02 06:31] LABS: ADD SCAN DIFF NO; BASOPHILS % 0.4 % (0.0-2.0); EOSINOPHILS # 0.1 10^3/ul (0.0-0.5); EOSINOPHILS % 0.8 % (0.0-7.0); HEMATOCRIT 27.9 % (42.0-52.0); HEMOGLOBIN 8.5 g/dl (14.0-18.0); LYMPHOCYTES % 13.6 % (15.0-51.0); MEAN CORPUSCULAR HEMOGLOBIN 29.3 pg (29.0-33.0); MEAN CORPUSCULAR HGB CONC 30.5 g/dl (32.0-37.0); MEAN CORPUSCULAR VOLUME 96.2 fl (82.0-101.0); MEAN PLATELET VOLUME 10.3 fl (7.4-10.4); MONOCYTE # 0.4 10^3/ul (0.3-0.9); MONOCYTES % 5.5 % (0.0-11.0); NEUTROPHIL # 5.7 10^3/ul (1.6-7.5); NEUTROPHILS % 79.4 % (39.0-77.0); PLATELET COUNT 157 10^3/UL (140-415); RED CELL DISTRIBUTION WIDTH 21.4 % (11.5-14.5); WHITE BLOOD COUNT 7.2 10^3/ul (4.8-10.8)
[2017-05-02 07:30] LABS: CALCIUM 9.7 mg/dl (8.4-10.2); CREATININE 4.16 mg/dl (0.61-1.24); POTASSIUM 5.1 mmol/L (3.5-5.1)
[2017-05-02] MEDS ORDERED: SEVELAMER CARBONATE 0.8 GM PKT PO SCH (07:55)
[2017-05-02] MEDS: LOSARTAN 25 MG TAB PO SCH (08:14)
[2017-05-02] MEDS: ALLOPURINOL 100 MG TAB PO SCH (08:50)
[2017-05-02] MEDS: DOCUSATE SODIUM 100 MG CAP PO PRN (08:50)
[2017-05-02] MEDS: ROPINIROLE 0.25 MG TAB PO SCH ×3 (08:50→21:20)
[2017-05-02] MEDS: RANOLAZINE (SR) 500 MG TAB PO SCH ×2 (08:50→21:20)
[2017-05-02] MEDS: MULTIVIT/CA CARB/B CMPLX/FA TAB PO SCH (08:50)
[2017-05-02] MEDS ORDERED: NON-FORMULARY/PATIENT OWN MED (Tiotropium Bromide (Spiriva Respimat) 2 PUFF) INHALATION SCH (09:00)
--- NOTE | 2017-05-02 10:18 | CONS ---
Date/Time of Note Date/Time of Note DATE: 05/02/17 TIME: 10:14 Assessment/Plan Assessment/Plan Chief Complaint/Hosp Course - chest pain- trop 0.28 likely down trend from admit with NSTEMI 1.5 level.. no revasc targets on recent cath, likely 2/2 chronic cad with [employer] of multiple small vessels. cont medical therapy with statin asa/plavix and tranfusion for anemia. - ICM with LVEF 30-35% s/p BiV ICD. repeat echo today to assess for change in EF with BiV pacing. - acute on chronic systolic heart failure- recurrent admissions, no revasc targets. unable to tolerate much medication due to lower bp - LBBB s/p biV ICD - CAD s/p extensive PCI hx including LM, prox/mid LAD, prox/mid/distal RCA. no revasc targets on recent LHC. - ESRD on iHD - Anemia- severe, no e/o gi blood loss. responded to transfusion with 2uprbc Recommendations - repeat trop, likely down trend - cont asa/plavix - cont statin - ranexa - pt refusing long acting nitro given previous dizziness, states ok prn sln spray - try to increase bb as tolerated - fluid mgmt with iHD, low na diet - obtain echo - add digoxin po loading dose then dose by level Problems: Consultation Date/Type/Reason Admit Date/Time May 01, 2017 at 21:31 Hx of Present Illness pt transferred to acute rehab yesterday, states around 2 pm after being moved had chest pain/tightness across chest. with associated sob. pt states pain was continuous, moderate in intensity. no n/v, sweating. pt states was not given sln. had morphine which improved the pain. pt states pain lasted for hours was transferred back to tele floor. pt states went to sleep and did not have pain when he awoke. had large bm this am as well, no bleeding. feels better, back to baseline. trop 0.28 likely down trend from previous level, can repeat level to see if interval change. Social History Smoking Status: Never smoker Exam/Review of Systems Vital Signs Vitals Vital Signs Date Time Temp Pulse Resp B/P Pulse Ox O2 Delivery O2 Flow Rate FiO2 05/02/17 08:58 6.0 05/02/17 08:21 94 05/02/17 08:01 20 98 Nasal Cannula 05/02/17 07:15 98.0 100/37 Intake and Output 05/01/17 05/01/17 05/02/17 15:00 23:00 07:00 Intake Total 120 ml Output Total 0 ml Balance 120 ml Results Result Diagram: 05/02/17 0606 05/02/17 0606 Results 24 hrs Laboratory Tests Test 05/02/17 06:06 White Blood Count 7.2 Red Blood Count 2.90 L Hemoglobin 8.5 L Hematocrit 27.9 L Mean Corpuscular Volume 96.2 Mean Corpuscular Hemoglobin 29.3 Mean Corpuscular Hemoglobin Concent 30.5 L Red Cell Distribution Width 21.4 H Platelet Count 157 Mean Platelet Volume 10.3 Neutrophils % 79.4 H Lymphocytes % 13.6 L Monocytes % 5.5 Eosinophils % 0.8 Basophils % 0.4 Nucleated Red Blood Cells % 0.0 Neutrophils # 5.7 Lymphocytes # 1.0 Monocytes # 0.4 Eosinophils # 0.1 Basophils # 0.0 Nucleated Red Blood Cells # 0.0 Sodium Level 141 Potassium Level 5.1 Chloride Level 96 L Carbon Dioxide Level 29 Anion Gap 21 #H Blood Urea Nitrogen 28 H Creatinine 4.16 H Glucose Level 80 Calcium Level 9.7 Troponin I 0.287 *H Medications Medications Current Medications Allopurinol (Zyloprim) 100 mg DAILY PO Last administered on 05/02/17 08:50; Admin Dose 100 MG; Start 05/02/17 at 09:00 Alprazolam (Xanax) 0.25 mg QHS PRN PO ANXIETY; Start 05/01/17 at 22:00 Aspirin (Halfprin) 81 mg QHS PO ; Start 05/02/17 at 21:00 Atorvastatin Calcium (Lipitor) 40 mg QHS PO ; Start 05/02/17 at 21:00 Clopidogrel Bisulfate (plaVIX) 75 mg QHS PO ; Start 05/02/17 at 21:00 Losartan Potassium (Cozaar) 25 mg DAILY PO ; Start 05/02/17 at 09:00 Multivit/Ca Carb/ B Cmplx/FA/Prenat (Gi-Evelio) 1 tab DAILY PO Last administered on 05/02/17 08:50; Admin Dose 1 TAB; Start 05/02/17 at 09:00 Ranolazine (Ranexa) 500 mg Q12 PO Last administered on 05/02/17 08:50; Admin Dose 500 MG; Start 05/02/17 at 09:00 Ropinirole HCl (Requip) 0.5 mg TID PO Last administered on 05/02/17 08:50; Admin Dose 0.5 MG; Start 05/02/17 at 09:00 Zolpidem Tartrate (Ambien) 7.5 mg QHS PRN PO INSOMNIA; Start 05/01/17 at 22:00 Pantoprazole (Protonix Tab) 40 mg DAILY@06 PO ; Start 05/02/17 at 06:00 Miscellaneous Information 2 puff DAILY INHALATION ; Start 05/02/17 at 09:00; Status UNV Nitroglycerin (Nitroglycerin (Sl Tab) 0.4 Mg) 1 tab Q5M PRN SL ANGINA; Start at 22:30 Morphine Sulfate (morphine) 4 mg Q2 PRN IV PAIN Last administered on 05/01/17 22:55; Admin Dose 4 MG; Start 05/01/17 at 22:30 Docusate Sodium (Colace) 100 mg TID PRN PO CONSTIPATION Last administered on 08:50; Admin Dose 100 MG; Start 05/02/17 at 09:00 Miscellaneous Information (*Order Clarification Bulletin) Tiotropium [place] ( Spiriva Respimat... Q8H XX ; Start 05/02/17 at 10:00 SUSANA VASQUEZ May 02, 2017 10:18
[2017-05-02] MEDS ORDERED: NITROGLYCERIN AEROSOL (4.9 GM) SL PRN (10:30)
[2017-05-02] MEDS ORDERED: DIGOXIN 0.25 MG TAB PO ONE (10:30)
[2017-05-02] MEDS: SEVELAMER 800 MG TAB PO SCH ×2 (12:41→17:55)
--- NOTE | 2017-05-02 16:04 | HP ---
Date/Time of Note Date/Time of Note DATE: 05/02/17 TIME: 15:55 Assessment/Plan VTE Prophylaxis VTE Prophylaxis Intervention: SCD's Lines/Catheters IV Catheter Type (from Nrs): Peripheral IV Urinary Cath still in place: No Assessment/Plan Assessment/Plan very complicated and unfortunate 71 m with mmp as outlined above including dm/ htn and esrd on hd m/w/f. he has advanced heart disease that is not aemnable to intervention per cards. he is readmitted to [facility] a few hrs after discharge due to recurrent cp and hypotension. he is currently cp free andis being evaluated by cardiology for elevated troponin. I will await further recs from pulm and cardiology, resume epogen for anemia and recheck iron sats. next hd scheduled thursday. pt may ultimately benifit from palliative care eval and I will dw dr soto on thursday HPI/ROS Admit Date/Time Admit Date/Time May 01, 2017 at 21:31 Hx of Present Illness 71 , admitted to [facility] from the acute rehab floor. he has a h/o of severe advanced cardiac ischemic disease s/p multiple procedures in the past. he is closely monitored by cards and felt to have end stage disease not amenable to further intervention. he is s/p recent biventricular pacer placement and aicd at [facility]. he was admitted to with decompensated chf and possible pna and treated with medical managment / agressive hd and eventually stablized enough to go to acute rehab last night. upon arrival to acute rehab he resported ongoing cp for several hours that started prior to transfer and his bp was in the 80s/ pt was deemed unstable and was transferred back to [facility]. troponin upon transfer was elevated and he is being followed by cardiology. today he states he feels weak but generally better and is denying any sob or cp ROS Eyes: no complaints ENT: no complaints Respiratory: cough Cardiovascular: chest pain Gastrointestinal: constipation, no complaints Genitourinary: no complaints Musculoskeletal: no complaints PMH/Family/Social Past Medical History Medical History: angina, congestive heart failure, coronary artery disease, diabetes, high cholesterol, hypertension, renal disease Past Surgical History Past Surgical Hx: angioplasty Family History Significant Family History: no pertinent family hx Social History Alcohol Use: none Smoking Status: Never smoker Exam/Review of Systems Vital Signs Vitals Vital Signs Date Time Temp Pulse Resp B/P Pulse Ox O2 Delivery O2 Flow Rate FiO2 05/02/17 15:46 98.0 90 19 100/44 100 05/02/17 13:38 6.0 05/02/17 13:36 Nasal Cannula Intake and Output 05/01/17 05/01/17 05/02/17 15:00 23:00 07:00 Intake Total 120 ml Output Total 0 ml Balance 120 ml Exam Constitutional: alert, oriented, well developed Head: atraumatic, normocephalic Neck: non-tender, supple Respiratory: clear to auscultation, diminished breath sounds Cardiovascular: edema, nl pulses, regular rate and rhythm Gastrointestinal: ascites, non-tender, soft Labs Result Diagram: 05/02/1760505/02/17605 Medications Medications Current Medications Allopurinol (Zyloprim) 100 mg DAILY PO Last administered on 05/02/17 08:50; Admin Dose 100 MG; Start 05/02/17 at 09:00 Alprazolam (Xanax) 0.25 mg QHS PRN PO ANXIETY; Start 05/01/17 at 22:00 Aspirin (Halfprin) 81 mg QHS PO ; Start 05/02/17 at 21:00 Atorvastatin Calcium (Lipitor) 40 mg QHS PO ; Start 05/02/17 at 21:00 Clopidogrel Bisulfate (plaVIX) 75 mg QHS PO ; Start 05/02/17 at 21:00 Losartan Potassium (Cozaar) 25 mg DAILY PO ; Start 05/02/17 at 09:00 Multivit/Ca Carb/ B Cmplx/FA/Prenat (Gi-Evelio) 1 tab DAILY PO Last administered on 05/02/17 08:50; Admin Dose 1 TAB; Start 05/02/17 at 09:00 Ranolazine (Ranexa) 500 mg Q12 PO Last administered on 05/02/17 08:50; Admin Dose 500 MG; Start 05/02/17 at 09:00 Ropinirole HCl (Requip) 0.5 mg TID PO Last administered on 05/02/17 12:42; Admin Dose 0.5 MG; Start 05/02/17 at 09:00 Zolpidem Tartrate (Ambien) 7.5 mg QHS PRN PO INSOMNIA; Start 05/01/17 at 22:00 Pantoprazole (Protonix Tab) 40 mg DAILY@06 PO ; Start 05/02/17 at 06:00 Miscellaneous Information 2 puff DAILY INHALATION ; Start 05/02/17 at 09:00; Status UNV Nitroglycerin (Nitroglycerin (Sl Tab) 0.4 Mg) 1 tab Q5M PRN SL ANGINA; Start at 22:30 Morphine Sulfate (morphine) 4 mg Q2 PRN IV PAIN Last administered on 05/01/17 22:55; Admin Dose 4 MG; Start 05/01/17 at 22:30 Docusate Sodium (Colace) 100 mg TID PRN PO CONSTIPATION Last administered on 08:50; Admin Dose 100 MG; Start 05/02/17 at 09:00 Miscellaneous Information (*Order Clarification Bulletin) Tiotropium [place] ( Spiriva Respimat... Q8H XX ; Start 05/02/17 at 10:00 Digoxin (Digoxin) 0.25 mg ONCE ONCE PO ; Start 05/03/17 at 08:00; Stop at 08:01 Nitroglycerin (Nitroglycerin ([place])) 1 spray Q5M PRN SL ANGINA; Start at 10:30 MARY LOU OVALLE MD May 02, 2017 16:03
[2017-05-02] MEDS: ATORVASTATIN 40 MG TAB PO SCH (21:20)
[2017-05-02] MEDS: CLOPIDOGREL 75 MG TAB PO SCH (21:20)
[2017-05-02] MEDS: ASPIRIN (EC) 81 MG TAB PO SCH (21:20)
[2017-05-02] MEDS: TIOTROPIUM BROMIDE XX SCH (21:51)
[2017-05-02] MEDS: [UNRECOGNIZED DRUG - OTHER] XX SCH (21:51)
[2017-05-03] VITALS (20 sets, daily range): BP systolic 93–132; BP diastolic 44–68; PULSE 83–98; RESP 15–20
[2017-05-03] MEDS: ALBUTEROL/IPRATROPIUM (NEB) 3 ML AMP HHN SCH ×4 (01:24→20:50)
[2017-05-03] MEDS: [UNRECOGNIZED DRUG - OTHER] XX SCH ×4 (02:00→20:00)
[2017-05-03] MEDS: TIOTROPIUM BROMIDE XX SCH ×4 (02:00→20:00)
[2017-05-03] MEDS: PANTOPRAZOLE (EC) 40 MG TAB PO SCH ×2 (05:36→05:37)
[2017-05-03 06:24] LABS: ADD SCAN DIFF NO
[2017-05-03 06:30] LABS: BASOPHILS % 0.6 % (0.0-2.0); EOSINOPHILS # 0.2 10^3/ul (0.0-0.5); EOSINOPHILS % 2.3 % (0.0-7.0); HEMATOCRIT 27.4 % (42.0-52.0); HEMOGLOBIN 8.2 g/dl (14.0-18.0); LYMPHOCYTES % 15.7 % (15.0-51.0); MEAN CORPUSCULAR HEMOGLOBIN 29.5 pg (29.0-33.0); MEAN CORPUSCULAR HGB CONC 29.9 g/dl (32.0-37.0); MEAN CORPUSCULAR VOLUME 98.6 fl (82.0-101.0); MEAN PLATELET VOLUME 10.3 fl (7.4-10.4); MONOCYTE # 0.4 10^3/ul (0.3-0.9); MONOCYTES % 5.3 % (0.0-11.0); NEUTROPHILS % 75.6 % (39.0-77.0); PLATELET COUNT 164 10^3/UL (140-415); RED BLOOD COUNT 2.78 10^6/ul (4.70-6.10); RED CELL DISTRIBUTION WIDTH 21.4 % (11.5-14.5); WHITE BLOOD COUNT 6.6 10^3/ul (4.8-10.8)
[2017-05-03 06:54] LABS: IRON 23 ug/dl (35-150)
[2017-05-03 06:57] LABS: ALBUMIN 3.6 g/dl (3.3-4.9); ALBUMIN/GLOBULIN RATIO 1.56; BILIRUBIN,INDIRECT 0.1 mg/dl (0-1.1); BILIRUBIN,TOTAL 0.1 mg/dl (0.2-1.3); CALCIUM 9.8 mg/dl (8.4-10.2); CREATININE 5.72 mg/dl (0.61-1.24); PHOSPHORUS 3.4 mg/dl (2.5-4.9); TOTAL PROTEIN 5.9 g/dl (6.1-8.1)
[2017-05-03 07:03] LABS: POTASSIUM 6.2 mmol/L (3.5-5.1); TOTAL IRON BINDING CAPACITY 155 ug/dl (241-421)
[2017-05-03] MEDS ORDERED: DIGOXIN 0.25 MG TAB PO ONE (08:00)
[2017-05-03] MEDS: MULTIVIT/CA CARB/B CMPLX/FA TAB PO SCH (08:46)
[2017-05-03] MEDS: SEVELAMER 800 MG TAB PO SCH ×3 (08:46→17:20)
[2017-05-03] MEDS: RANOLAZINE (SR) 500 MG TAB PO SCH ×2 (08:46→21:20)
[2017-05-03] MEDS: ROPINIROLE 0.25 MG TAB PO SCH ×3 (08:46→21:20)
[2017-05-03] MEDS: ALLOPURINOL 100 MG TAB PO SCH (08:46)
[2017-05-03] MEDS: LOSARTAN 25 MG TAB PO SCH (08:47)
[2017-05-03] MEDS ORDERED: ALBUMIN HUMAN 25% 100 ML IV ONE (09:30)
[2017-05-03] MEDS: EPOETIN 10000 UNITS/1 ML INJ (ESRD) SC SCH (12:28)
--- NOTE | 2017-05-03 13:07 | CONS ---
Date/Time of Note Date/Time of Note DATE: 05/03/17 TIME: 13:04 Consult Date/Type/Reason Admit Date/Time May 01, 2017 at 21:31 Initial Consult Date Type of Consultation: Pulm Subjective Comfortable this morning. still with occ cough Objective Vital Signs Date Time Temp Pulse Resp B/P Pulse Ox O2 Delivery O2 Flow Rate FiO2 05/03/17 12:35 98.0 70 18 112/48 98 05/03/17 08:09 Nasal Cannula 6.0 Intake and Output 05/02/17 05/02/17 05/03/17 15:00 23:00 07:00 Intake Total 40 ml 100 ml 200 ml Output Total 2 ml Balance 40 ml 100 ml 198 ml Exam GENERAL: VITAL SIGNS: per chart NECK: Supple. No JVD or lymphadenopathy. CARDIAC EXAM: S1, S2. No added sounds or murmurs. CHEST: clear bilaterally, No added sounds, rales or wheezes ABDOMEN: Soft, nontender. No guarding or rebound. EXTREMITIES: No cyanosis, clubbing or edema. NEUROLOGIC: Generalized weakness. No focal deficits. Elderly-appearing gentleman comfortable at rest no acute distress Results/Medications Result Diagram: 05/03/17 0551 05/03/17 0548 Results 24 hrs Laboratory Tests Test 05/03/17 05:48 05/03/17 05:51 Sodium Level 141 Potassium Level 6.2 *H Chloride Level 95 L Carbon Dioxide Level 28 Anion Gap 24 H Blood Urea Nitrogen 51 H Creatinine 5.72 H Glucose Level 66 #L Calcium Level 9.8 Phosphorus Level 3.4 Iron Level 23 L Total Iron Binding Capacity 155 L Percent Iron Saturation 15 L Ferritin 981.0 H Total Bilirubin 0.1 L Direct Bilirubin 0.00 Indirect Bilirubin 0.1 Aspartate Amino Transf (AST/SGOT) 19 Alanine Aminotransferase (ALT/SGPT) 22 Alkaline Phosphatase 139 H Troponin I 0.162 *H Total Protein 5.9 L Albumin 3.6 Globulin 2.30 Albumin/Globulin Ratio 1.56 White Blood Count 6.6 Red Blood Count 2.78 L Hemoglobin 8.2 L Hematocrit 27.4 L Mean Corpuscular Volume 98.6 Mean Corpuscular Hemoglobin 29.5 Mean Corpuscular Hemoglobin Concent 29.9 L Red Cell Distribution Width 21.4 H Platelet Count 164 Mean Platelet Volume 10.3 Neutrophils % 75.6 Lymphocytes % 15.7 Monocytes % 5.3 Eosinophils % 2.3 Basophils % 0.6 Nucleated Red Blood Cells % 0.0 Neutrophils # 5.0 Lymphocytes # 1.0 Monocytes # 0.4 Eosinophils # 0.2 Basophils # 0.0 Nucleated Red Blood Cells # 0.0 Medications Current Medications Allopurinol (Zyloprim) 100 mg DAILY PO Last administered on 05/03/17 08:46; Admin Dose 100 MG; Start 05/02/17 at 09:00 Alprazolam (Xanax) 0.25 mg QHS PRN PO ANXIETY; Start 05/01/17 at 22:00 Aspirin (Halfprin) 81 mg QHS PO Last administered on 05/02/17 21:20; Admin Dose 81 MG; Start 05/02/17 at 21:00 Atorvastatin Calcium (Lipitor) 40 mg QHS PO Last administered on 05/02/17 21: 20; Admin Dose 40 MG; Start 05/02/17 at 21:00 Clopidogrel Bisulfate (plaVIX) 75 mg QHS PO Last administered on 05/02/17 21: 20; Admin Dose 75 MG; Start 05/02/17 at 21:00 Losartan Potassium (Cozaar) 25 mg DAILY PO ; Start 05/02/17 at 09:00 Multivit/Ca Carb/ B Cmplx/FA/Prenat (Gi-Evelio) 1 tab DAILY PO Last administered on 05/03/17 08:46; Admin Dose 1 TAB; Start 05/02/17 at 09:00 Ranolazine (Ranexa) 500 mg Q12 PO Last administered on 05/03/17 08:46; Admin Dose 500 MG; Start 05/02/17 at 09:00 Ropinirole HCl (Requip) 0.5 mg TID PO Last administered on 05/03/17 12:28; Admin Dose 0.5 MG; Start 05/02/17 at 09:00 Zolpidem Tartrate (Ambien) 7.5 mg QHS PRN PO INSOMNIA; Start 05/01/17 at 22:00 Pantoprazole (Protonix Tab) 40 mg DAILY@06 PO ; Start 05/02/17 at 06:00 Miscellaneous Information 2 puff DAILY INHALATION ; Start 05/02/17 at 09:00; Status UNV Nitroglycerin (Nitroglycerin (Sl Tab) 0.4 Mg) 1 tab Q5M PRN SL ANGINA; Start at 22:30 Morphine Sulfate (morphine) 4 mg Q2 PRN IV PAIN Last administered on 05/01/17 22:55; Admin Dose 4 MG; Start 05/01/17 at 22:30 Docusate Sodium (Colace) 100 mg TID PRN PO CONSTIPATION Last administered on 08:50; Admin Dose 100 MG; Start 05/02/17 at 09:00 Miscellaneous Information (*Order Clarification Bulletin) Tiotropium [place] ( Spiriva Respimat... Q8H XX ; Start 05/02/17 at 10:00 Nitroglycerin (Nitroglycerin ([place])) 1 spray Q5M PRN SL ANGINA; Start at 10:30 Assessment/Plan Chief Complaint/Hosp Course Chief Complaint/Hosp Course Assessment 1. Dyspnea likely secondary to pulmonary edema 2. Diabetes mellitus 3. End-stage renal failure on hemodialysis 4. History of chronic anemia secondary to end-stage renal failure. 5. Recent biventricular pacemaker placement Plan 1. CT chest to evaluate lung parenchyma moderate pleural effusions may require thoracentesis if not removed with hemodialysis apical groundglass findings likely more consistent with interstitial edema. Differential does include inflammatory process however this is less likely given patient's clinical appearance 2. Continue with dialysis and volume removal 3. Outpatient pulmonary function testing 4. Cardiac recommendations Problems: MUKUND URBANO MD, [facility] May 03, 2017 13:07
--- NOTE | 2017-05-03 14:19 | CONS ---
Date/Time of Note Date/Time of Note DATE: 05/03/17 TIME: 14:16 Assessment/Plan Assessment/Plan Additional Assessment/Plan 1. Dyspnea likely secondary to pulmonary edema, underlying pulm disease. hd today 2. Diabetes mellitus: on meds 3. End-stage renal failure on hemodialysis/ hd today due to elevated k 4. History of chronic anemia secondary to end-stage renal failure./ on epogen s /p prbc x 2. iron sats low bu ferritin elevated precluding more iron infusions. transfuse prn 5. Recent biventricular pacemaker placement 6-elevated troponin: trending down and asymptomatic. known severe cad s/p multiple interventions not amenable to further intervention 7-hypotension: better. cozar on hold Consultation Date/Type/Reason Admit Date/Time May 01, 2017 at 21:31 Initial Consult Date Type of Consultation: Pulm 24 HR Interval Summary Free Text/Dictation feels ok. k elevated this am and currently on hd and tolerating well. no cough and no sob Exam/Review of Systems Vital Signs Vitals Vital Signs Date Time Temp Pulse Resp B/P Pulse Ox O2 Delivery O2 Flow Rate FiO2 05/03/17 14:12 90 22 100 Nasal Cannula 5.0 05/03/17 12:35 98.0 112/48 Intake and Output 05/02/17 05/02/17 05/03/17 15:00 23:00 07:00 Intake Total 40 ml 100 ml 200 ml Output Total 2 ml Balance 40 ml 100 ml 198 ml Exam Constitutional: alert, oriented Psych: no complaints Head: atraumatic, normocephalic Eyes: nl conjunctiva Neck: non-tender, supple Respiratory: clear to auscultation Cardiovascular: edema, nl pulses, regular rate and rhythm Gastrointestinal: non-tender, soft Results Result Diagram: 05/03/17 0551 05/03/17 0548 Results 24 hrs Laboratory Tests Test 05/03/17 05:48 05/03/17 05:51 Sodium Level 141 Potassium Level 6.2 *H Chloride Level 95 L Carbon Dioxide Level 28 Anion Gap 24 H Blood Urea Nitrogen 51 H Creatinine 5.72 H Glucose Level 66 #L Calcium Level 9.8 Phosphorus Level 3.4 Iron Level 23 L Total Iron Binding Capacity 155 L Percent Iron Saturation 15 L Ferritin 981.0 H Total Bilirubin 0.1 L Direct Bilirubin 0.00 Indirect Bilirubin 0.1 Aspartate Amino Transf (AST/SGOT) 19 Alanine Aminotransferase (ALT/SGPT) 22 Alkaline Phosphatase 139 H Troponin I 0.162 *H Total Protein 5.9 L Albumin 3.6 Globulin 2.30 Albumin/Globulin Ratio 1.56 White Blood Count 6.6 Red Blood Count 2.78 L Hemoglobin 8.2 L Hematocrit 27.4 L Mean Corpuscular Volume 98.6 Mean Corpuscular Hemoglobin 29.5 Mean Corpuscular Hemoglobin Concent 29.9 L Red Cell Distribution Width 21.4 H Platelet Count 164 Mean Platelet Volume 10.3 Neutrophils % 75.6 Lymphocytes % 15.7 Monocytes % 5.3 Eosinophils % 2.3 Basophils % 0.6 Nucleated Red Blood Cells % 0.0 Neutrophils # 5.0 Lymphocytes # 1.0 Monocytes # 0.4 Eosinophils # 0.2 Basophils # 0.0 Nucleated Red Blood Cells # 0.0 Medications Medications Current Medications Allopurinol (Zyloprim) 100 mg DAILY PO Last administered on 05/03/17 08:46; Admin Dose 100 MG; Start 05/02/17 at 09:00 Alprazolam (Xanax) 0.25 mg QHS PRN PO ANXIETY; Start 05/01/17 at 22:00 Aspirin (Halfprin) 81 mg QHS PO Last administered on 05/02/17 21:20; Admin Dose 81 MG; Start 05/02/17 at 21:00 Atorvastatin Calcium (Lipitor) 40 mg QHS PO Last administered on 05/02/17 21: 20; Admin Dose 40 MG; Start 05/02/17 at 21:00 Clopidogrel Bisulfate (plaVIX) 75 mg QHS PO Last administered on 05/02/17 21: 20; Admin Dose 75 MG; Start 05/02/17 at 21:00 Losartan Potassium (Cozaar) 25 mg DAILY PO ; Start 05/02/17 at 09:00 Multivit/Ca Carb/ B Cmplx/FA/Prenat (Gi-Evelio) 1 tab DAILY PO Last administered on 05/03/17 08:46; Admin Dose 1 TAB; Start 05/02/17 at 09:00 Ranolazine (Ranexa) 500 mg Q12 PO Last administered on 05/03/17 08:46; Admin Dose 500 MG; Start 05/02/17 at 09:00 Ropinirole HCl (Requip) 0.5 mg TID PO Last administered on 05/03/17 12:28; Admin Dose 0.5 MG; Start 05/02/17 at 09:00 Zolpidem Tartrate (Ambien) 7.5 mg QHS PRN PO INSOMNIA; Start 05/01/17 at 22:00 Pantoprazole (Protonix Tab) 40 mg DAILY@06 PO ; Start 05/02/17 at 06:00 Miscellaneous Information 2 puff DAILY INHALATION ; Start 05/02/17 at 09:00; Status UNV Nitroglycerin (Nitroglycerin (Sl Tab) 0.4 Mg) 1 tab Q5M PRN SL ANGINA; Start at 22:30 Morphine Sulfate (morphine) 4 mg Q2 PRN IV PAIN Last administered on 05/01/17 22:55; Admin Dose 4 MG; Start 05/01/17 at 22:30 Docusate Sodium (Colace) 100 mg TID PRN PO CONSTIPATION Last administered on 08:50; Admin Dose 100 MG; Start 05/02/17 at 09:00 Miscellaneous Information (*Order Clarification Bulletin) Tiotropium [place] ( Spiriva Respimat... Q8H XX ; Start 05/02/17 at 10:00 Nitroglycerin (Nitroglycerin ([place])) 1 spray Q5M PRN SL ANGINA; Start at 10:30 MARY LOU OVALLE MD May 03, 2017 14:19
[2017-05-03] MEDS: ATORVASTATIN 40 MG TAB PO SCH (21:19)
[2017-05-03] MEDS: ASPIRIN (EC) 81 MG TAB PO SCH (21:20)
[2017-05-03] MEDS: CLOPIDOGREL 75 MG TAB PO SCH (21:20)
[2017-05-04] VITALS (20 sets, daily range): BP systolic 101–129; BP diastolic 33–62; PULSE 82–101; RESP 15–20
[2017-05-04] MEDS: ALBUTEROL/IPRATROPIUM (NEB) 3 ML AMP HHN SCH ×4 (02:34→22:03)
[2017-05-04] MEDS: PANTOPRAZOLE (EC) 40 MG TAB PO SCH (05:37)
[2017-05-04 06:07] LABS: ADD SCAN DIFF NO
[2017-05-04 06:10] LABS: BASOPHILS % 0.6 % (0.0-2.0); EOSINOPHILS # 0.1 10^3/ul (0.0-0.5); EOSINOPHILS % 2.5 % (0.0-7.0); HEMATOCRIT 24.5 % (42.0-52.0); HEMOGLOBIN 7.3 g/dl (14.0-18.0); LYMPHOCYTES # 0.8 10^3/ul (0.8-2.9); LYMPHOCYTES % 17.4 % (15.0-51.0); MEAN CORPUSCULAR HEMOGLOBIN 29.8 pg (29.0-33.0); MEAN CORPUSCULAR HGB CONC 29.8 g/dl (32.0-37.0); MEAN PLATELET VOLUME 10.3 fl (7.4-10.4); MONOCYTE # 0.3 10^3/ul (0.3-0.9); MONOCYTES % 6.8 % (0.0-11.0); NEUTROPHIL # 3.5 10^3/ul (1.6-7.5); NEUTROPHILS % 72.5 % (39.0-77.0); PLATELET COUNT 152 10^3/UL (140-415); RED BLOOD COUNT 2.45 10^6/ul (4.70-6.10); RED CELL DISTRIBUTION WIDTH 21.2 % (11.5-14.5); WHITE BLOOD COUNT 4.8 10^3/ul (4.8-10.8)
[2017-05-04 06:54] LABS: ALBUMIN 3.7 g/dl (3.3-4.9); ALBUMIN/GLOBULIN RATIO 1.68; BILIRUBIN,INDIRECT 0.1 mg/dl (0-1.1); BILIRUBIN,TOTAL 0.1 mg/dl (0.2-1.3); CALCIUM 9.4 mg/dl (8.4-10.2); CREATININE 4.07 mg/dl (0.61-1.24); PHOSPHORUS 3.2 mg/dl (2.5-4.9); POTASSIUM 3.8 mmol/L (3.5-5.1); TOTAL PROTEIN 5.9 g/dl (6.1-8.1)
--- NOTE | 2017-05-04 07:54 | CONS ---
Date/Time of Note Date/Time of Note DATE: 05/04/17 TIME: 07:51 Assessment/Plan Assessment/Plan Problems: (1) Arteriosclerotic heart disease (ASHD) Comment: asx now.. s/p biV pacer (2) SOB (shortness of breath) Comment: needs HD (3) Debility Comment: will get PT eval and Rx (4) Anemia Status: Chronic Comment: discussed.. recheck in am (5) ESRD (end stage renal disease) on dialysis Status: Chronic Comment: for HD today and q MWF Consultation Date/Type/Reason Admit Date/Time May 01, 2017 at 21:31 Initial Consult Date Type of Consultation: neph 24 HR Interval Summary Free Text/Dictation doing better Exam/Review of Systems Vital Signs Vitals Vital Signs Date Time Temp Pulse Resp B/P Pulse Ox O2 Delivery O2 Flow Rate FiO2 05/04/17 07:01 98.4 93 18 119/53 100 05/04/17 02:38 Nasal Cannula 5.0 Intake and Output 05/03/17 05/03/17 05/04/17 15:00 23:00 07:00 Intake Total 500 ml 200 ml Output Total 1500 ml Balance -1000 ml 200 ml Exam Constitutional: alert, oriented Eyes: nl conjunctiva Neck: supple Respiratory: clear to auscultation Cardiovascular: regular rate and rhythm Gastrointestinal: nl liver, spleen, soft Extremities: normal pulses (fxn avf) Results Result Diagram: 05/04/17 0550 05/04/17 0550 Results 24 hrs Laboratory Tests Test 05/04/17 05:50 White Blood Count 4.8 # Red Blood Count 2.45 L Hemoglobin 7.3 L Hematocrit 24.5 L Mean Corpuscular Volume 100.0 Mean Corpuscular Hemoglobin 29.8 Mean Corpuscular Hemoglobin Concent 29.8 L Red Cell Distribution Width 21.2 H Platelet Count 152 Mean Platelet Volume 10.3 Neutrophils % 72.5 Lymphocytes % 17.4 Monocytes % 6.8 Eosinophils % 2.5 Basophils % 0.6 Nucleated Red Blood Cells % 0.0 Neutrophils # 3.5 Lymphocytes # 0.8 Monocytes # 0.3 Eosinophils # 0.1 Basophils # 0.0 Nucleated Red Blood Cells # 0.0 Sodium Level 143 Potassium Level 3.8 # Chloride Level 99 Carbon Dioxide Level 30 Anion Gap 18 H Blood Urea Nitrogen 31 #H Creatinine 4.07 #H Glucose Level 76 Calcium Level 9.4 Phosphorus Level 3.2 Total Bilirubin 0.1 L Direct Bilirubin 0.00 Indirect Bilirubin 0.1 Aspartate Amino Transf (AST/SGOT) 18 Alanine Aminotransferase (ALT/SGPT) 20 Alkaline Phosphatase 115 Total Protein 5.9 L Albumin 3.7 Globulin 2.20 Albumin/Globulin Ratio 1.68 Medications Medications Current Medications Allopurinol (Zyloprim) 100 mg DAILY PO Last administered on 05/03/17 08:46; Admin Dose 100 MG; Start 05/02/17 at 09:00 Alprazolam (Xanax) 0.25 mg QHS PRN PO ANXIETY; Start 05/01/17 at 22:00 Aspirin (Halfprin) 81 mg QHS PO Last administered on 05/03/17 21:20; Admin Dose 81 MG; Start 05/02/17 at 21:00 Atorvastatin Calcium (Lipitor) 40 mg QHS PO Last administered on 05/03/17 21: 19; Admin Dose 40 MG; Start 05/02/17 at 21:00 Clopidogrel Bisulfate (plaVIX) 75 mg QHS PO Last administered on 05/03/17 21: 20; Admin Dose 75 MG; Start 05/02/17 at 21:00 Losartan Potassium (Cozaar) 25 mg DAILY PO ; Start 05/02/17 at 09:00 Multivit/Ca Carb/ B Cmplx/FA/Prenat (Gi-Evelio) 1 tab DAILY PO Last administered on 05/03/17 08:46; Admin Dose 1 TAB; Start 05/02/17 at 09:00 Ranolazine (Ranexa) 500 mg Q12 PO Last administered on 05/03/17 21:20; Admin Dose 500 MG; Start 05/02/17 at 09:00 Ropinirole HCl (Requip) 0.5 mg TID PO Last administered on 05/03/17 21:20; Admin Dose 0.5 MG; Start 05/02/17 at 09:00 Zolpidem Tartrate (Ambien) 7.5 mg QHS PRN PO INSOMNIA; Start 05/01/17 at 22:00 Pantoprazole (Protonix Tab) 40 mg DAILY@06 PO ; Start 05/02/17 at 06:00 Miscellaneous Information 2 puff DAILY INHALATION ; Start 05/02/17 at 09:00; Status UNV Nitroglycerin (Nitroglycerin (Sl Tab) 0.4 Mg) 1 tab Q5M PRN SL ANGINA; Start at 22:30 Morphine Sulfate (morphine) 4 mg Q2 PRN IV PAIN Last administered on 05/01/17 22:55; Admin Dose 4 MG; Start 05/01/17 at 22:30 Docusate Sodium (Colace) 100 mg TID PRN PO CONSTIPATION Last administered on 08:50; Admin Dose 100 MG; Start 05/02/17 at 09:00 Miscellaneous Information (*Order Clarification Bulletin) Tiotropium [place] ( Spiriva Respimat... Q8H XX ; Start 05/02/17 at 10:00 Nitroglycerin (Nitroglycerin ([place])) 1 spray Q5M PRN SL ANGINA; Start at 10:30 POP BOYCE MD May 04, 2017 07:53
[2017-05-04] MEDS: LOSARTAN 25 MG TAB PO SCH (08:30)
[2017-05-04] MEDS: SEVELAMER 800 MG TAB PO SCH ×3 (08:30→17:55)
--- NOTE | 2017-05-04 09:19 | CONS ---
Date/Time of Note Date/Time of Note DATE: 05/04/17 TIME: :17 Assessment/Plan Assessment/Plan Chief Complaint/Hosp Course - chest pain- trop 0.28 likely down trend from admit with NSTEMI 1.5 level.. no revasc targets on recent cath, likely 2/2 chronic cad with BASKET TURNER of multiple small vessels. cont medical therapy with statin asa/plavix and tranfusion for anemia. - ICM with LVEF 30-35% s/p BiV ICD. repeat echo today to assess for change in EF with BiV pacing. - acute on chronic systolic heart failure- recurrent admissions, no revasc targets. unable to tolerate much medication due to lower bp - LBBB s/p biV ICD - CAD s/p extensive PCI hx including LM, prox/mid LAD, prox/mid/distal RCA. no revasc targets on recent LHC. - ESRD on iHD - Anemia- severe, no e/o gi blood loss. responded to transfusion with 2uprbc Recommendations - cont asa/plavix - cont statin - ranexa - pt refusing long acting nitro given previous dizziness, states ok prn sln spray - bp on lower side, but stable 110s yesterday. can inc bb as tolerated - fluid mgmt with iHD, low na diet - echo without sig change - check dig level. period dosing - pt/ot Problems: Consultation Date/Type/Reason Admit Date/Time May 01, 2017 at 21:31 Initial Consult Date Type of Consultation: card 24 HR Interval Summary Free Text/Dictation no acute events. pt states feels improved. no cp, sob stable. no pnd,orthopnea. plan for iHD today Detailed Summary Respiratory: shortness of breath Cardiovascular: no complaints Gastrointestinal: no complaints Exam/Review of Systems Vital Signs Vitals Vital Signs Date Time Temp Pulse Resp B/P Pulse Ox O2 Delivery O2 Flow Rate FiO2 05/04/17 09:05 91 18 99 Nasal Cannula 5.0 05/04/17 07:01 98.4 119/53 Intake and Output 05/03/17 05/03/17 05/04/17 15:00 23:00 07:00 Intake Total 500 ml 200 ml Output Total 1500 ml Balance -1000 ml 200 ml Exam Constitutional: alert, oriented Psych: depression Head: normocephalic Eyes: nl conjunctiva ENMT: nl external ears & nose Neck: jvd, supple Respiratory: crackles in base/lateral wright clear with cough Cardiovascular: regular rate and rhythm, No edema Gastrointestinal: soft Ext: L fistula + thrill Results Result Diagram: 05/04/17 0550 05/04/17 0550 Results 24 hrs Laboratory Tests Test 05/04/17 05:50 White Blood Count 4.8 # Red Blood Count 2.45 L Hemoglobin 7.3 L Hematocrit 24.5 L Mean Corpuscular Volume 100.0 Mean Corpuscular Hemoglobin 29.8 Mean Corpuscular Hemoglobin Concent 29.8 L Red Cell Distribution Width 21.2 H Platelet Count 152 Mean Platelet Volume 10.3 Neutrophils % 72.5 Lymphocytes % 17.4 Monocytes % 6.8 Eosinophils % 2.5 Basophils % 0.6 Nucleated Red Blood Cells % 0.0 Neutrophils # 3.5 Lymphocytes # 0.8 Monocytes # 0.3 Eosinophils # 0.1 Basophils # 0.0 Nucleated Red Blood Cells # 0.0 Sodium Level 143 Potassium Level 3.8 # Chloride Level 99 Carbon Dioxide Level 30 Anion Gap 18 H Blood Urea Nitrogen 31 #H Creatinine 4.07 #H Glucose Level 76 Calcium Level 9.4 Phosphorus Level 3.2 Total Bilirubin 0.1 L Direct Bilirubin 0.00 Indirect Bilirubin 0.1 Aspartate Amino Transf (AST/SGOT) 18 Alanine Aminotransferase (ALT/SGPT) 20 Alkaline Phosphatase 115 Total Protein 5.9 L Albumin 3.7 Globulin 2.20 Albumin/Globulin Ratio 1.68 Medications Medications Current Medications Allopurinol (Zyloprim) 100 mg DAILY PO Last administered on 05/03/17 08:46; Admin Dose 100 MG; Start 05/02/17 at 09:00 Alprazolam (Xanax) 0.25 mg QHS PRN PO ANXIETY; Start 05/01/17 at 22:00 Aspirin (Halfprin) 81 mg QHS PO Last administered on 05/03/17 21:20; Admin Dose 81 MG; Start 05/02/17 at 21:00 Atorvastatin Calcium (Lipitor) 40 mg QHS PO Last administered on 05/03/17 21: 19; Admin Dose 40 MG; Start 05/02/17 at 21:00 Clopidogrel Bisulfate (plaVIX) 75 mg QHS PO Last administered on 05/03/17 21: 20; Admin Dose 75 MG; Start 05/02/17 at 21:00 Losartan Potassium (Cozaar) 25 mg DAILY PO ; Start 05/02/17 at 09:00 Multivit/Ca Carb/ B Cmplx/FA/Prenat (Gi-Evelio) 1 tab DAILY PO Last administered on 05/03/17 08:46; Admin Dose 1 TAB; Start 05/02/17 at 09:00 Ranolazine (Ranexa) 500 mg Q12 PO Last administered on 05/03/17 21:20; Admin Dose 500 MG; Start 05/02/17 at 09:00 Ropinirole HCl (Requip) 0.5 mg TID PO Last administered on 05/03/17 21:20; Admin Dose 0.5 MG; Start 05/02/17 at 09:00 Zolpidem Tartrate (Ambien) 7.5 mg QHS PRN PO INSOMNIA; Start 05/01/17 at 22:00 Pantoprazole (Protonix Tab) 40 mg DAILY@06 PO ; Start 05/02/17 at 06:00 Miscellaneous Information 2 puff DAILY INHALATION ; Start 05/02/17 at 09:00; Status UNV Nitroglycerin (Nitroglycerin (Sl Tab) 0.4 Mg) 1 tab Q5M PRN SL ANGINA; Start at 22:30 Morphine Sulfate (morphine) 4 mg Q2 PRN IV PAIN Last administered on 05/01/17 22:55; Admin Dose 4 MG; Start 05/01/17 at 22:30 Docusate Sodium (Colace) 100 mg TID PRN PO CONSTIPATION Last administered on 08:50; Admin Dose 100 MG; Start 05/02/17 at 09:00 Miscellaneous Information (*Order Clarification Bulletin) Tiotropium [place] ( Spiriva Respimat... Q8H XX ; Start 05/02/17 at 10:00 Nitroglycerin (Nitroglycerin ([place])) 1 spray Q5M PRN SL ANGINA; Start at 10:30 Procedures Procedures tele reviewed [email or web address] Miller May 04, 2017 09:18
[2017-05-04] MEDS: [UNRECOGNIZED DRUG - OTHER] XX SCH ×2 (10:00→18:00)
[2017-05-04] MEDS: TIOTROPIUM BROMIDE XX SCH ×2 (10:00→18:00)
[2017-05-04] MEDS: ROPINIROLE 0.25 MG TAB PO SCH ×3 (10:04→20:45)
[2017-05-04] MEDS: RANOLAZINE (SR) 500 MG TAB PO SCH ×2 (10:05→20:44)
[2017-05-04] MEDS: ALLOPURINOL 100 MG TAB PO SCH (10:05)
[2017-05-04] MEDS: MULTIVIT/CA CARB/B CMPLX/FA TAB PO SCH (10:05)
[2017-05-04] MEDS ORDERED: ALBUMIN HUMAN 25% 100 ML IV ONE (11:30)
[2017-05-04] MEDS: EPOETIN 10000 UNITS/1 ML INJ (ESRD) SC SCH (15:08)
--- NOTE | 2017-05-04 15:36 | CONS ---
Date/Time of Note Date/Time of Note DATE: 05/04/17 TIME: 15:35 Consult Date/Type/Reason Admit Date/Time May 01, 2017 at 21:31 Type of Consultation: Pulmonary Subjective Patient states he feels a little better today. Objective Vital Signs Date Time Temp Pulse Resp B/P Pulse Ox O2 Delivery O2 Flow Rate FiO2 05/04/17 12:15 84 05/04/17 11:12 98.0 17 116/35 100 05/04/17 09:05 Nasal Cannula 5.0 Intake and Output 05/03/17 05/03/17 05/04/17 14:59 22:59 06:59 Intake Total 500 ml 200 ml Output Total 1500 ml Balance -1000 ml 200 ml Exam GENERAL: VITAL SIGNS: per chart NECK: Supple. No JVD or lymphadenopathy. CARDIAC EXAM: S1, S2. No added sounds or murmurs. CHEST: clear bilaterally, No added sounds, rales or wheezes ABDOMEN: Soft, nontender. No guarding or rebound. EXTREMITIES: No cyanosis, clubbing or edema. NEUROLOGIC: Generalized weakness. No focal deficits. Elderly-appearing gentleman comfortable at rest no acute distress Results/Medications Result Diagram: 05/04/17 0550 05/04/17 0550 Results 24 hrs Laboratory Tests Test 05/04/17 05:50 White Blood Count 4.8 # Red Blood Count 2.45 L Hemoglobin 7.3 L Hematocrit 24.5 L Mean Corpuscular Volume 100.0 Mean Corpuscular Hemoglobin 29.8 Mean Corpuscular Hemoglobin Concent 29.8 L Red Cell Distribution Width 21.2 H Platelet Count 152 Mean Platelet Volume 10.3 Neutrophils % 72.5 Lymphocytes % 17.4 Monocytes % 6.8 Eosinophils % 2.5 Basophils % 0.6 Nucleated Red Blood Cells % 0.0 Neutrophils # 3.5 Lymphocytes # 0.8 Monocytes # 0.3 Eosinophils # 0.1 Basophils # 0.0 Nucleated Red Blood Cells # 0.0 Sodium Level 143 Potassium Level 3.8 # Chloride Level 99 Carbon Dioxide Level 30 Anion Gap 18 H Blood Urea Nitrogen 31 #H Creatinine 4.07 #H Glucose Level 76 Calcium Level 9.4 Phosphorus Level 3.2 Total Bilirubin 0.1 L Direct Bilirubin 0.00 Indirect Bilirubin 0.1 Aspartate Amino Transf (AST/SGOT) 18 Alanine Aminotransferase (ALT/SGPT) 20 Alkaline Phosphatase 115 Total Protein 5.9 L Albumin 3.7 Globulin 2.20 Albumin/Globulin Ratio 1.68 Medications Current Medications Allopurinol (Zyloprim) 100 mg DAILY PO Last administered on 05/04/17 10:05; Admin Dose 100 MG; Start 05/02/17 at 09:00 Alprazolam (Xanax) 0.25 mg QHS PRN PO ANXIETY; Start 05/01/17 at 22:00 Aspirin (Halfprin) 81 mg QHS PO Last administered on 05/03/17 21:20; Admin Dose 81 MG; Start 05/02/17 at 21:00 Atorvastatin Calcium (Lipitor) 40 mg QHS PO Last administered on 05/03/17 21: 19; Admin Dose 40 MG; Start 05/02/17 at 21:00 Clopidogrel Bisulfate (plaVIX) 75 mg QHS PO Last administered on 05/03/17 21: 20; Admin Dose 75 MG; Start 05/02/17 at 21:00 Losartan Potassium (Cozaar) 25 mg DAILY PO ; Start 05/02/17 at 09:00 Multivit/Ca Carb/ B Cmplx/FA/Prenat (Gi-Evelio) 1 tab DAILY PO Last administered on 05/04/17 10:05; Admin Dose 1 TAB; Start 05/02/17 at 09:00 Ranolazine (Ranexa) 500 mg Q12 PO Last administered on 05/04/17 10:05; Admin Dose 500 MG; Start 05/02/17 at 09:00 Ropinirole HCl (Requip) 0.5 mg TID PO Last administered on 05/04/17 13:28; Admin Dose 0.5 MG; Start 05/02/17 at 09:00 Zolpidem Tartrate (Ambien) 7.5 mg QHS PRN PO INSOMNIA; Start 05/01/17 at 22:00 Pantoprazole (Protonix Tab) 40 mg DAILY@06 PO ; Start 05/02/17 at 06:00 Miscellaneous Information 2 puff DAILY INHALATION ; Start 05/02/17 at 09:00; Status UNV Nitroglycerin (Nitroglycerin (Sl Tab) 0.4 Mg) 1 tab Q5M PRN SL ANGINA; Start at 22:30 Morphine Sulfate (morphine) 4 mg Q2 PRN IV PAIN Last administered on 05/01/17 22:55; Admin Dose 4 MG; Start 05/01/17 at 22:30 Docusate Sodium (Colace) 100 mg TID PRN PO CONSTIPATION Last administered on 08:50; Admin Dose 100 MG; Start 05/02/17 at 09:00 Miscellaneous Information (*Order Clarification Bulletin) Tiotropium [place] ( Spiriva Respimat... Q8H XX ; Start 05/02/17 at 10:00 Nitroglycerin (Nitroglycerin ([place])) 1 spray Q5M PRN SL ANGINA; Start at 10:30 Assessment/Plan Chief Complaint/Hosp Course Chief Complaint/Hosp Course Assessment 1. Dyspnea likely secondary to pulmonary edema 2. Diabetes mellitus 3. End-stage renal failure on hemodialysis 4. History of chronic anemia secondary to end-stage renal failure. 5. Recent biventricular pacemaker placement Plan 1. CT chest to evaluate lung parenchyma moderate pleural effusions may require thoracentesis if not removed with hemodialysis apical groundglass findings likely more consistent with interstitial edema. Differential does include inflammatory process however this is less likely given patient's clinical appearance. Repeat chest x-ray in a.m. 2. Continue with dialysis and volume removal 3. Outpatient pulmonary function testing 4. Cardiac recommendations 5. Encourage out of bed. Problems: M[facility]UD [facility]RBANO [facility] May 04, 2017 15:36
[2017-05-04] MEDS: CLOPIDOGREL 75 MG TAB PO SCH (20:44)
[2017-05-04] MEDS: ATORVASTATIN 40 MG TAB PO SCH (20:44)
[2017-05-04] MEDS: ASPIRIN (EC) 81 MG TAB PO SCH (20:44)
[2017-05-05] VITALS (10 sets, daily range): BP systolic 115–125; BP diastolic 53–71; PULSE 87–97; RESP 17–20
[2017-05-05] MEDS: ALBUTEROL/IPRATROPIUM (NEB) 3 ML AMP HHN SCH ×4 (04:06→20:54)
[2017-05-05] MEDS: PANTOPRAZOLE (EC) 40 MG TAB PO SCH (06:00)
--- NOTE | 2017-05-05 07:50 | CONS ---
Date/Time of Note Date/Time of Note DATE: 05/05/17 TIME: 07:47 Assessment/Plan Assessment/Plan Problems: (1) SOB (shortness of breath) Comment: better... and CXR this am looks improved (2) Debility Comment: to get PT... hopefully soon to ARU (3) Anemia Status: Chronic Comment: f/u CBC still pd (4) ESRD (end stage renal disease) on dialysis Status: Chronic Comment: next HD in am Consultation Date/Type/Reason Admit Date/Time May 01, 2017 at 21:31 Type of Consultation: neph 24 HR Interval Summary Free Text/Dictation stable... no cp or sob.. erika HD yesterday without issues Exam/Review of Systems Vital Signs Vitals Vital Signs Date Time Temp Pulse Resp B/P Pulse Ox O2 Delivery O2 Flow Rate FiO2 05/05/17 07:00 98.4 87 19 122/56 100 05/05/17 04:17 6.0 05/05/17 04:10 Nasal Cannula Intake and Output 05/04/17 05/04/17 05/05/17 15:00 23:00 07:00 Intake Total 900 ml 350 ml 450 ml Output Total 3000 ml Balance -2100 ml 350 ml 450 ml Exam Constitutional: alert, oriented Head: normocephalic Neck: supple Respiratory: clear to auscultation Cardiovascular: regular rate and rhythm Gastrointestinal: soft Extremities: normal pulses (fxn AVF in LUE) Results Result Diagram: 05/04/17 0550 05/04/17 0550 Medications Medications Current Medications Allopurinol (Zyloprim) 100 mg DAILY PO Last administered on 05/04/17 10:05; Admin Dose 100 MG; Start 05/02/17 at 09:00 Alprazolam (Xanax) 0.25 mg QHS PRN PO ANXIETY; Start 05/01/17 at 22:00 Aspirin (Halfprin) 81 mg QHS PO Last administered on 05/04/17 20:44; Admin Dose 81 MG; Start 05/02/17 at 21:00 Atorvastatin Calcium (Lipitor) 40 mg QHS PO Last administered on 05/04/17 20: 44; Admin Dose 40 MG; Start 05/02/17 at 21:00 Clopidogrel Bisulfate (plaVIX) 75 mg QHS PO Last administered on 05/04/17 20: 44; Admin Dose 75 MG; Start 05/02/17 at 21:00 Losartan Potassium (Cozaar) 25 mg DAILY PO ; Start 05/02/17 at 09:00 Multivit/Ca Carb/ B Cmplx/FA/Prenat (Gi-Evelio) 1 tab DAILY PO Last administered on 05/04/17 10:05; Admin Dose 1 TAB; Start 05/02/17 at 09:00 Ranolazine (Ranexa) 500 mg Q12 PO Last administered on 05/04/17 20:44; Admin Dose 500 MG; Start 05/02/17 at 09:00 Ropinirole HCl (Requip) 0.5 mg TID PO Last administered on 05/04/17 20:45; Admin Dose 0.5 MG; Start 05/02/17 at 09:00 Zolpidem Tartrate (Ambien) 7.5 mg QHS PRN PO INSOMNIA; Start 05/01/17 at 22:00 Pantoprazole (Protonix Tab) 40 mg DAILY@06 PO ; Start 05/02/17 at 06:00 Miscellaneous Information 2 puff DAILY INHALATION ; Start 05/02/17 at 09:00; Status UNV Nitroglycerin (Nitroglycerin (Sl Tab) 0.4 Mg) 1 tab Q5M PRN SL ANGINA; Start at 22:30 Morphine Sulfate (morphine) 4 mg Q2 PRN IV PAIN Last administered on 05/01/17 22:55; Admin Dose 4 MG; Start 05/01/17 at 22:30 Docusate Sodium (Colace) 100 mg TID PRN PO CONSTIPATION Last administered on 08:50; Admin Dose 100 MG; Start 05/02/17 at 09:00 Miscellaneous Information (*Order Clarification Bulletin) Tiotropium [place] ( Spiriva Respimat... Q8H XX ; Start 05/02/17 at 10:00 Nitroglycerin (Nitroglycerin ([place])) 1 spray Q5M PRN SL ANGINA; Start at 10:30 POP BOYCE MD May 05, 2017 07:49
[2017-05-05 08:33] LABS: ADD SCAN DIFF NO
[2017-05-05 08:38] LABS: BASOPHILS % 0.4 % (0.0-2.0); EOSINOPHILS # 0.1 10^3/ul (0.0-0.5); EOSINOPHILS % 2.5 % (0.0-7.0); HEMATOCRIT 24.7 % (42.0-52.0); HEMOGLOBIN 7.2 g/dl (14.0-18.0); LYMPHOCYTES # 0.9 10^3/ul (0.8-2.9); LYMPHOCYTES % 18.7 % (15.0-51.0); MEAN CORPUSCULAR HEMOGLOBIN 29.1 pg (29.0-33.0); MEAN CORPUSCULAR HGB CONC 29.1 g/dl (32.0-37.0); MEAN PLATELET VOLUME 10.3 fl (7.4-10.4); MONOCYTE # 0.3 10^3/ul (0.3-0.9); MONOCYTES % 6.8 % (0.0-11.0); NEUTROPHIL # 3.4 10^3/ul (1.6-7.5); NEUTROPHILS % 71.2 % (39.0-77.0); PLATELET COUNT 148 10^3/UL (140-415); RED BLOOD COUNT 2.47 10^6/ul (4.70-6.10); RED CELL DISTRIBUTION WIDTH 21.2 % (11.5-14.5); WHITE BLOOD COUNT 4.7 10^3/ul (4.8-10.8)
[2017-05-05] MEDS: ROPINIROLE 0.25 MG TAB PO SCH ×3 (09:51→20:36)
[2017-05-05] MEDS: RANOLAZINE (SR) 500 MG TAB PO SCH ×2 (09:51→20:36)
[2017-05-05] MEDS: MULTIVIT/CA CARB/B CMPLX/FA TAB PO SCH (09:51)
[2017-05-05] MEDS: ALLOPURINOL 100 MG TAB PO SCH (09:52)
[2017-05-05] MEDS: TIOTROPIUM BROMIDE XX SCH ×3 (10:00→17:57)
[2017-05-05] MEDS: [UNRECOGNIZED DRUG - OTHER] XX SCH ×3 (10:00→17:57)
[2017-05-05] MEDS: SEVELAMER 800 MG TAB PO SCH ×3 (10:15→17:41)
[2017-05-05] MEDS: LOSARTAN 25 MG TAB PO SCH (10:15)
--- NOTE | 2017-05-05 11:30 | CONS ---
Date/Time of Note Date/Time of Note DATE: 05/05/17 TIME: 11:29 Consult Date/Type/Reason Admit Date/Time May 01, 2017 at 21:31 Type of Consultation: Pulmonary Subjective Patient stable this morning no new events., Frustrated wants to go home. Objective Vital Signs Date Time Temp Pulse Resp B/P Pulse Ox O2 Delivery O2 Flow Rate FiO2 05/05/17 11:19 98.5 98 20 125/53 98 05/05/17 09:00 21 05/05/17 04:17 6.0 05/05/17 04:10 Nasal Cannula Intake and Output 05/04/17 05/04/17 05/05/17 15:00 23:00 07:00 Intake Total 900 ml 350 ml 450 ml Output Total 3000 ml Balance -2100 ml 350 ml 450 ml Exam GENERAL: VITAL SIGNS: per chart NECK: Supple. No JVD or lymphadenopathy. CARDIAC EXAM: S1, S2. No added sounds or murmurs. CHEST: clear bilaterally, No added sounds, rales or wheezes ABDOMEN: Soft, nontender. No guarding or rebound. EXTREMITIES: No cyanosis, clubbing or edema. NEUROLOGIC: Generalized weakness. No focal deficits. Results/Medications Result Diagram: 05/05/17 0804 05/04/17 0550 Results 24 hrs Laboratory Tests Test 05/05/17 08:04 White Blood Count 4.7 L Red Blood Count 2.47 L Hemoglobin 7.2 L Hematocrit 24.7 L Mean Corpuscular Volume 100.0 Mean Corpuscular Hemoglobin 29.1 Mean Corpuscular Hemoglobin Concent 29.1 L Red Cell Distribution Width 21.2 H Platelet Count 148 Mean Platelet Volume 10.3 Neutrophils % 71.2 Lymphocytes % 18.7 Monocytes % 6.8 Eosinophils % 2.5 Basophils % 0.4 Nucleated Red Blood Cells % 0.0 Neutrophils # 3.4 Lymphocytes # 0.9 Monocytes # 0.3 Eosinophils # 0.1 Basophils # 0.0 Nucleated Red Blood Cells # 0.0 Digoxin Level 1.4 Medications Current Medications Allopurinol (Zyloprim) 100 mg DAILY PO Last administered on 05/05/17t 09:52; Admin Dose 100 MG; Start 05/02/17 at 09:00 Alprazolam (Xanax) 0.25 mg QHS PRN PO ANXIETY; Start 05/01/17 at 22:00 Aspirin (Halfprin) 81 mg QHS PO Last administered on 05/04/17 20:44; Admin Dose 81 MG; Start 05/02/17 at 21:00 Atorvastatin Calcium (Lipitor) 40 mg QHS PO Last administered on 05/04/17 20: 44; Admin Dose 40 MG; Start 05/02/17 at 21:00 Clopidogrel Bisulfate (plaVIX) 75 mg QHS PO Last administered on 05/04/17 20: 44; Admin Dose 75 MG; Start 05/02/17 at 21:00 Losartan Potassium (Cozaar) 25 mg DAILY PO ; Start 05/02/17 at 09:00 Multivit/Ca Carb/ B Cmplx/FA/Prenat (Gi-Evelio) 1 tab DAILY PO Last administered on 05/05/17 09:51; Admin Dose 1 TAB; Start 05/02/17 at 09:00 Ranolazine (Ranexa) 500 mg Q12 PO Last administered on 05/05/17 09:51; Admin Dose 500 MG; Start 05/02/17 at 09:00 Ropinirole HCl (Requip) 0.5 mg TID PO Last administered on 05/05/17 09:51; Admin Dose 0.5 MG; Start 05/02/17 at 09:00 Zolpidem Tartrate (Ambien) 7.5 mg QHS PRN PO INSOMNIA; Start 05/01/17 at 22:00 Pantoprazole (Protonix Tab) 40 mg DAILY@06 PO ; Start 05/02/17 at 06:00 Miscellaneous Information 2 puff DAILY INHALATION ; Start 05/02/17 at 09:00; Status UNV Nitroglycerin (Nitroglycerin (Sl Tab) 0.4 Mg) 1 tab Q5M PRN SL ANGINA; Start at 22:30 Morphine Sulfate (morphine) 4 mg Q2 PRN IV PAIN Last administered on 05/01/17 22:55; Admin Dose 4 MG; Start 05/01/17 at 22:30 Docusate Sodium (Colace) 100 mg TID PRN PO CONSTIPATION Last administered on 08:50; Admin Dose 100 MG; Start 05/02/17 at 09:00 Miscellaneous Information (*Order Clarification Bulletin) Tiotropium [place] ( Spiriva Respimat... Q8H XX ; Start 05/02/17 at 10:00 Nitroglycerin (Nitroglycerin ([place])) 1 spray Q5M PRN SL ANGINA; Start at 10:30 Assessment/Plan Chief Complaint/Hosp Course Chief Complaint/Hosp Course Assessment 1. Dyspnea likely secondary to pulmonary edema 2. Diabetes mellitus 3. End-stage renal failure on hemodialysis 4. History of chronic anemia secondary to end-stage renal failure. 5. Recent biventricular pacemaker placement Plan 1. CT chest to evaluate lung parenchyma moderate pleural effusions may require thoracentesis if not removed with hemodialysis apical groundglass findings likely more consistent with interstitial edema. Differential does include inflammatory process however this is less likely given patient's clinical appearance. Recommend outpatient CT scan 2. Continue with dialysis and volume removal 3. Outpatient pulmonary function testing 4. Cardiac recommendations 5. Encourage out of bed. 6. Iron replacement and/or Epogen per nephrology Discharge planning okay from pulmonary standpoint Problems: MUKUND URBANO MD, [facility] May 05, 2017 11:30
--- NOTE | 2017-05-05 12:30 | RADRPT ---
PROCEDURE: XR Chest. CLINICAL INDICATION: Shortness of breath. TECHNIQUE: Single frontal view. COMPARISON: 04/28/2017. FINDINGS: The heart is enlarged. The thoracic aorta is calcified. There is a right-sided pacemaker / AICD in place. There is mild pulmonary edema, unchanged. The lungs are otherwise clear. There is a small left pleural effusion, unchanged. There is no pneumothorax. IMPRESSION: 1. No change from 04/28/2017. RPTAT: QQ .Lazaro Zavaleta MD, Date Time Electronically viewed and signed by .Lazaro Zavaleta MD, MD on 05/05/2017 12:30 .R/
[2017-05-05] MEDS: ASPIRIN (EC) 81 MG TAB PO SCH (20:35)
[2017-05-05] MEDS: ATORVASTATIN 40 MG TAB PO SCH (20:36)
[2017-05-05] MEDS: CLOPIDOGREL 75 MG TAB PO SCH (20:36)
[2017-05-05] MEDS: ALPRAZOLAM 0.25 MG TAB PO PRN (21:56)
[2017-05-06] VITALS (20 sets, daily range): BP systolic 82–134; BP diastolic 27–66; PULSE 86–97; RESP 18–20
[2017-05-06] MEDS: [UNRECOGNIZED DRUG - OTHER] XX SCH ×3 (02:00→16:55)
[2017-05-06] MEDS: TIOTROPIUM BROMIDE XX SCH ×3 (02:00→16:55)
[2017-05-06] MEDS: ALBUTEROL/IPRATROPIUM (NEB) 3 ML AMP HHN SCH ×4 (03:20→19:58)
[2017-05-06] MEDS: PANTOPRAZOLE (EC) 40 MG TAB PO SCH (06:00)
[2017-05-06 07:07] LABS: ADD SCAN DIFF NO
[2017-05-06 07:16] LABS: BASOPHILS % 0.4 % (0.0-2.0); EOSINOPHILS # 0.1 10^3/ul (0.0-0.5); EOSINOPHILS % 1.9 % (0.0-7.0); HEMATOCRIT 24.7 % (42.0-52.0); HEMOGLOBIN 7.2 g/dl (14.0-18.0); LYMPHOCYTES # 0.9 10^3/ul (0.8-2.9); LYMPHOCYTES % 16.1 % (15.0-51.0); MEAN CORPUSCULAR HEMOGLOBIN 29.1 pg (29.0-33.0); MEAN CORPUSCULAR HGB CONC 29.1 g/dl (32.0-37.0); MEAN PLATELET VOLUME 9.9 fl (7.4-10.4); MONOCYTE # 0.3 10^3/ul (0.3-0.9); MONOCYTES % 6.1 % (0.0-11.0); NEUTROPHIL # 4.1 10^3/ul (1.6-7.5); NEUTROPHILS % 75.1 % (39.0-77.0); PLATELET COUNT 162 10^3/UL (140-415); RED BLOOD COUNT 2.47 10^6/ul (4.70-6.10); RED CELL DISTRIBUTION WIDTH 20.8 % (11.5-14.5); WHITE BLOOD COUNT 5.4 10^3/ul (4.8-10.8)
--- NOTE | 2017-05-06 07:54 | CONS ---
Date/Time of Note Date/Time of Note DATE: 05/06/17 TIME: 07:52 Assessment/Plan Assessment/Plan Chief Complaint/Hosp Course - chest pain- trop 0.28 likely down trend from admit with NSTEMI 1.5 level.. 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 cont medical therapy with statin asa/plavix and tranfusion for anemia. - ICM with LVEF 30-35% s/p BiV ICD. - acute on chronic systolic heart failure- recurrent admissions, no revasc targets. unable to tolerate much medication due to lower bp - LBBB s/p biV ICD - CAD s/p extensive PCI hx including LM, prox/mid LAD, prox/mid/distal RCA. no revasc targets on recent LHC. - ESRD on iHD - Anemia- severe, no e/o gi blood loss. responded to transfusion with 2uprbc Recommendations - cont asa/plavix - cont statin - ranexa - pt refusing long acting nitro given previous dizziness, states ok prn sln spray - titrate medications as tolerated by bp - fluid mgmt with iHD, low na diet - recheck dig level in a few days - pt/ot Problems: Consultation Date/Type/Reason Admit Date/Time May 01, 2017 at 21:31 Type of Consultation: cardiology 24 HR Interval Summary Free Text/Dictation inc sob this am. no cp/pressure. states walked with pt was tired yesterday with sob had to rest. no palpitations. tele reviewed; v paced Detailed Summary Respiratory: shortness of breath Cardiovascular: no complaints Gastrointestinal: no complaints Exam/Review of Systems Vital Signs Vitals Vital Signs Date Time Temp Pulse Resp B/P Pulse Ox O2 Delivery O2 Flow Rate FiO2 05/06/17 07:14 97.9 90 20 126/33 100 05/06/17 03:21 6.0 05/06/17 03:21 Nasal Cannula 05/05/17 09:00 21 Intake and Output 05/05/17 05/05/17 05/06/17 15:00 23:00 07:00 Intake Total 300 ml 350 ml Balance 300 ml 350 ml Exam Constitutional: alert, oriented Psych: depression Head: normocephalic Eyes: nl conjunctiva ENMT: nl external ears & nose Neck: jvd, supple Respiratory: crackles in base/lateral wright L>R Cardiovascular: regular rate and rhythm, No edema Gastrointestinal: soft Ext: L fistula + thrill Results Result Diagram: 05/06/17 0650 05/04/17 0550 Results 24 hrs Laboratory Tests Test 05/05/17 08:04 05/06/17 06:50 White Blood Count 4.7 L 5.4 Red Blood Count 2.47 L 2.47 L Hemoglobin 7.2 L 7.2 L Hematocrit 24.7 L 24.7 L Mean Corpuscular Volume 100.0 100.0 Mean Corpuscular Hemoglobin 29.1 29.1 Mean Corpuscular Hemoglobin Concent 29.1 L 29.1 L Red Cell Distribution Width 21.2 H 20.8 H Platelet Count 148 162 Mean Platelet Volume 10.3 9.9 Neutrophils % 71.2 75.1 Lymphocytes % 18.7 16.1 Monocytes % 6.8 6.1 Eosinophils % 2.5 1.9 Basophils % 0.4 0.4 Nucleated Red Blood Cells % 0.0 0.0 Neutrophils # 3.4 4.1 Lymphocytes # 0.9 0.9 Monocytes # 0.3 0.3 Eosinophils # 0.1 0.1 Basophils # 0.0 0.0 Nucleated Red Blood Cells # 0.0 0.0 Digoxin Level 1.4 Medications Medications Current Medications Allopurinol (Zyloprim) 100 mg DAILY PO Last administered on 05/05/17 09:52; Admin Dose 100 MG; Start 05/02/17 at 09:00 Alprazolam (Xanax) 0.25 mg QHS PRN PO ANXIETY Last administered on 05/05/17 21 :56; Admin Dose 0.25 MG; Start 05/01/17 at 22:00 Aspirin (Halfprin) 81 mg QHS PO Last administered on 05/05/17 20:35; Admin Dose 81 MG; Start 05/02/17 at 21:00 Atorvastatin Calcium (Lipitor) 40 mg QHS PO Last administered on 05/05/17 20: 36; Admin Dose 40 MG; Start 05/02/17 at 21:00 Clopidogrel Bisulfate (plaVIX) 75 mg QHS PO Last administered on 05/05/17 20: 36; Admin Dose 75 MG; Start 05/02/17 at 21:00 Losartan Potassium (Cozaar) 25 mg DAILY PO ; Start 05/02/17 at 09:00 Multivit/Ca Carb/ B Cmplx/FA/Prenat (Gi-Evelio) 1 tab DAILY PO Last administered on 05/05/17 09:51; Admin Dose 1 TAB; Start 05/02/17 at 09:00 Ranolazine (Ranexa) 500 mg Q12 PO Last administered on 05/05/17 20:36; Admin Dose 500 MG; Start 05/02/17 at 09:00 Ropinirole HCl (Requip) 0.5 mg TID PO Last administered on 05/05/17 20:36; Admin Dose 0.5 MG; Start 05/02/17 at 09:00 Zolpidem Tartrate (Ambien) 7.5 mg QHS PRN PO INSOMNIA; Start 05/01/17 at 22:00 Pantoprazole (Protonix Tab) 40 mg DAILY@06 PO ; Start 05/02/17 at 06:00 Miscellaneous Information 2 puff DAILY INHALATION ; Start 05/02/17 at 09:00; Status UNV Nitroglycerin (Nitroglycerin (Sl Tab) 0.4 Mg) 1 tab Q5M PRN SL ANGINA; Start at 22:30 Morphine Sulfate (morphine) 4 mg Q2 PRN IV PAIN Last administered on 05/01/17 22:55; Admin Dose 4 MG; Start 05/01/17 at 22:30 Docusate Sodium (Colace) 100 mg TID PRN PO CONSTIPATION Last administered on 08:50; Admin Dose 100 MG; Start 05/02/17 at 09:00 Miscellaneous Information (*Order Clarification Bulletin) Tiotropium [place] ( Spiriva Respimat... Q8H XX ; Start 05/02/17 at 10:00 Nitroglycerin (Nitroglycerin ([place])) 1 spray Q5M PRN SL ANGINA; Start at 10:30 Procedures Procedures cxr report reviewed There is a small left pleural effusion, unchanged. SUSANA VASQUEZ May 06, 2017 07:53
[2017-05-06] MEDS: ALLOPURINOL 100 MG TAB PO SCH (08:11)
[2017-05-06] MEDS: RANOLAZINE (SR) 500 MG TAB PO SCH ×2 (08:11→20:59)
[2017-05-06] MEDS: SEVELAMER 800 MG TAB PO SCH ×3 (08:11→17:06)
[2017-05-06] MEDS: ROPINIROLE 0.25 MG TAB PO SCH ×4 (08:11→20:59)
[2017-05-06] MEDS: MULTIVIT/CA CARB/B CMPLX/FA TAB PO SCH (08:11)
--- NOTE | 2017-05-06 08:11 | PN ---
Date/Time of Note Date/Time of Note DATE: 05/06/17 TIME: 08:09 Assessment/Plan VTE Prophylaxis VTE Prophylaxis Intervention: other Lines/Catheters IV Catheter Type (from Nrs): Saline Lock Urinary Cath still in place: No Assessment/Plan Assessment/Plan 1. CKD, to hav HD today. 2. Anemia, to be transfused today, will be sure stool ob is requested. 3. Ischemic ht dz, no new ischemic sxs Subjective 24 Hr Interval Summary Respiratory: cough (and not productive), shortness of breath (mild) Cardiovascular: No chest pain Gastrointestinal: no complaints Exam/Review of Systems Vital Signs Vitals Vital Signs Date Time Temp Pulse Resp B/P Pulse Ox O2 Delivery O2 Flow Rate FiO2 05/06/17 07:14 97.9 90 20 126/33 100 05/06/17 03:21 6.0 05/06/17 03:21 Nasal Cannula 05/05/17 09:00 21 Intake and Output 05/05/17 05/05/17 05/06/17 14:59 22:59 06:59 Intake Total 300 ml 350 ml Balance 300 ml 350 ml Exam Neck: No jvd Respiratory: crackles/rales (few dry rales at the bases) Cardiovascular: No S3 Gastrointestinal: soft Extremities: No edema (extrem and sacrum) Results Result Diagram: 05/06/17 0650 05/04/17 0550 Results 24 hrs Laboratory Tests Test 05/06/17 06:50 White Blood Count 5.4 Red Blood Count 2.47 L Hemoglobin 7.2 L Hematocrit 24.7 L Mean Corpuscular Volume 100.0 Mean Corpuscular Hemoglobin 29.1 Mean Corpuscular Hemoglobin Concent 29.1 L Red Cell Distribution Width 20.8 H Platelet Count 162 Mean Platelet Volume 9.9 Neutrophils % 75.1 Lymphocytes % 16.1 Monocytes % 6.1 Eosinophils % 1.9 Basophils % 0.4 Nucleated Red Blood Cells % 0.0 Neutrophils # 4.1 Lymphocytes # 0.9 Monocytes # 0.3 Eosinophils # 0.1 Basophils # 0.0 Nucleated Red Blood Cells # 0.0 Medications Medications Current Medications Allopurinol (Zyloprim) 100 mg DAILY PO Last administered on 05/05/17t 09:52; Admin Dose 100 MG; Start 05/02/17 at 09:00 Alprazolam (Xanax) 0.25 mg QHS PRN PO ANXIETY Last administered on 05/05/17 21 :56; Admin Dose 0.25 MG; Start 05/01/17 at 22:00 Aspirin (Halfprin) 81 mg QHS PO Last administered on 05/05/17 20:35; Admin Dose 81 MG; Start 05/02/17 at 21:00 Atorvastatin Calcium (Lipitor) 40 mg QHS PO Last administered on 05/05/17 20: 36; Admin Dose 40 MG; Start 05/02/17 at 21:00 Clopidogrel Bisulfate (plaVIX) 75 mg QHS PO Last administered on 05/05/17 20: 36; Admin Dose 75 MG; Start 05/02/17 at 21:00 Losartan Potassium (Cozaar) 25 mg DAILY PO ; Start 05/02/17 at 09:00 Multivit/Ca Carb/ B Cmplx/FA/Prenat (Gi-Evelio) 1 tab DAILY PO Last administered on 05/05/17 09:51; Admin Dose 1 TAB; Start 05/02/17 at 09:00 Ranolazine (Ranexa) 500 mg Q12 PO Last administered on 05/05/17 20:36; Admin Dose 500 MG; Start 05/02/17 at 09:00 Ropinirole HCl (Requip) 0.5 mg TID PO Last administered on 05/05/17 20:36; Admin Dose 0.5 MG; Start 05/02/17 at 09:00 Zolpidem Tartrate (Ambien) 7.5 mg QHS PRN PO INSOMNIA; Start 05/01/17 at 22:00 Pantoprazole (Protonix Tab) 40 mg DAILY@06 PO ; Start 05/02/17 at 06:00 Miscellaneous Information 2 puff DAILY INHALATION ; Start 05/02/17 at 09:00; Status UNV Nitroglycerin (Nitroglycerin (Sl Tab) 0.4 Mg) 1 tab Q5M PRN SL ANGINA; Start at 22:30 Morphine Sulfate (morphine) 4 mg Q2 PRN IV PAIN Last administered on 05/01/17 22:55; Admin Dose 4 MG; Start 05/01/17 at 22:30 Docusate Sodium (Colace) 100 mg TID PRN PO CONSTIPATION Last administered on 08:50; Admin Dose 100 MG; Start 05/02/17 at 09:00 Miscellaneous Information (*Order Clarification Bulletin) Tiotropium [place] ( Spiriva Respimat... Q8H XX ; Start 05/02/17 at 10:00 Nitroglycerin (Nitroglycerin ([place])) 1 spray Q5M PRN SL ANGINA; Start at 10:30 ALONZO SERRA MD May 06, 2017 08:11
[2017-05-06] MEDS: LOSARTAN 25 MG TAB PO SCH (08:16)
[2017-05-06] MEDS ORDERED: ALBUMIN HUMAN 25% 100 ML IV PRN (10:30)
--- NOTE | 2017-05-06 14:51 | CONS ---
Date/Time of Note Date/Time of Note DATE: 05/06/17 TIME: 14:49 Consult Date/Type/Reason Admit Date/Time May 01, 2017 at 21:31 Type of Consultation: Pulmonary Subjective Feels okay today Objective Vital Signs Date Time Temp Pulse Resp B/P Pulse Ox O2 Delivery O2 Flow Rate FiO2 05/06/17 13:17 96 10.0 05/06/17 12:28 90 05/06/17 11:29 98.1 19 115/27 05/06/17 09:49 Simple Mask 05/05/17 09:00 21 Intake and Output 05/05/17 05/05/17 05/06/17 15:00 23:00 07:00 Intake Total 300 ml 350 ml Balance 300 ml 350 ml Exam GENERAL: Elderly gentleman comfortable at rest no acute distress VITAL SIGNS: per chart NECK: Supple. No JVD or lymphadenopathy. CARDIAC EXAM: S1, S2. No added sounds or murmurs. CHEST: Diminished air entry left lung base. ABDOMEN: Soft, nontender. No guarding or rebound. EXTREMITIES: No cyanosis, clubbing or edema. NEUROLOGIC: Generalized weakness. No focal deficits. Results/Medications Result Diagram: 05/06/17 0650 05/04/17 0550 Results 24 hrs Laboratory Tests Test 05/06/17 06:50 White Blood Count 5.4 Red Blood Count 2.47 L Hemoglobin 7.2 L Hematocrit 24.7 L Mean Corpuscular Volume 100.0 Mean Corpuscular Hemoglobin 29.1 Mean Corpuscular Hemoglobin Concent 29.1 L Red Cell Distribution Width 20.8 H Platelet Count 162 Mean Platelet Volume 9.9 Neutrophils % 75.1 Lymphocytes % 16.1 Monocytes % 6.1 Eosinophils % 1.9 Basophils % 0.4 Nucleated Red Blood Cells % 0.0 Neutrophils # 4.1 Lymphocytes # 0.9 Monocytes # 0.3 Eosinophils # 0.1 Basophils # 0.0 Nucleated Red Blood Cells # 0.0 Medications Current Medications Allopurinol (Zyloprim) 100 mg DAILY PO Last administered on 05/06/17 08:11; Admin Dose 100 MG; Start 05/02/17 at 09:00 Alprazolam (Xanax) 0.25 mg QHS PRN PO ANXIETY Last administered on 05/05/17 21 :56; Admin Dose 0.25 MG; Start 05/01/17 at 22:00 Aspirin (Halfprin) 81 mg QHS PO Last administered on 05/05/17 20:35; Admin Dose 81 MG; Start 05/02/17 at 21:00 Atorvastatin Calcium (Lipitor) 40 mg QHS PO Last administered on 05/05/17 20: 36; Admin Dose 40 MG; Start 05/02/17 at 21:00 Clopidogrel Bisulfate (plaVIX) 75 mg QHS PO Last administered on 05/05/17 20: 36; Admin Dose 75 MG; Start 05/02/17 at 21:00 Losartan Potassium (Cozaar) 25 mg DAILY PO ; Start 05/02/17 at 09:00 Multivit/Ca Carb/ B Cmplx/FA/Prenat (Gi-Evelio) 1 tab DAILY PO Last administered on 05/06/17 08:11; Admin Dose 1 TAB; Start 05/02/17 at 09:00 Ranolazine (Ranexa) 500 mg Q12 PO Last administered on 05/06/17 08:11; Admin Dose 500 MG; Start 05/02/17 at 09:00 Ropinirole HCl (Requip) 0.5 mg TID PO Last administered on 05/06/17 08:11; Admin Dose 0.5 MG; Start 05/02/17 at 09:00 Zolpidem Tartrate (Ambien) 7.5 mg QHS PRN PO INSOMNIA; Start 05/01/17 at 22:00 Pantoprazole (Protonix Tab) 40 mg DAILY@06 PO ; Start 05/02/17 at 06:00 Miscellaneous Information 2 puff DAILY INHALATION ; Start 05/02/17 at 09:00; Status UNV Nitroglycerin (Nitroglycerin (Sl Tab) 0.4 Mg) 1 tab Q5M PRN SL ANGINA; Start at 22:30 Morphine Sulfate (morphine) 4 mg Q2 PRN IV PAIN Last administered on 05/01/17 22:55; Admin Dose 4 MG; Start 05/01/17 at 22:30 Docusate Sodium (Colace) 100 mg TID PRN PO CONSTIPATION Last administered on 08:50; Admin Dose 100 MG; Start 05/02/17 at 09:00 Miscellaneous Information (*Order Clarification Bulletin) Tiotropium [place] ( Spiriva Respimat... Q8H XX ; Start 05/02/17 at 10:00 Nitroglycerin (Nitroglycerin ([place])) 1 spray Q5M PRN SL ANGINA; Start at 10:30 Assessment/Plan Chief Complaint/Hosp Course Chief Complaint/Hosp Course Assessment 1. Dyspnea likely secondary to pulmonary edema 2. Diabetes mellitus 3. End-stage renal failure on hemodialysis 4. History of chronic anemia secondary to end-stage renal failure. 5. Recent biventricular pacemaker placement Plan 1. CT chest to evaluate lung parenchyma moderate pleural effusions may require thoracentesis if not removed with hemodialysis apical groundglass findings likely more consistent with interstitial edema. Differential does include inflammatory process however this is less likely given patient's clinical appearance. Recommend outpatient CT scan 2. Continue with dialysis and volume removal 3. Outpatient pulmonary function testing 4. Cardiac recommendations 5. Encourage out of bed. 6. Iron replacement and/or Epogen per nephrology, consider transfusion 1 unit packed red blood cells with hemodialysis Discharge planning okay from pulmonary standpoint Problems: MUKUND URBANO MD, [facility] May 06, 2017 14:50
[2017-05-06] MEDS: EPOETIN 10000 UNITS/1 ML INJ (ESRD) SC SCH (17:07)
--- NOTE | 2017-05-06 18:13 | CONS ---
Date/Time of Note Date/Time of Note DATE: 05/05/17 TIME: 8:12 Assessment/Plan Assessment/Plan Chief Complaint/Hosp Course - chest pain- trop 0.28 likely down trend from admit with NSTEMI 1.5 level.. 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 cont medical therapy with statin asa/plavix and tranfusion for anemia. - ICM with LVEF 30-35% s/p BiV ICD. - acute on chronic systolic heart failure- recurrent admissions, no revasc targets. unable to tolerate much medication due to lower bp - LBBB s/p biV ICD - CAD s/p extensive PCI hx including LM, prox/mid LAD, prox/mid/distal RCA. no revasc targets on recent LHC. - ESRD on iHD - Anemia- severe, no e/o gi blood loss. responded to transfusion with 2uprbc Recommendations - cont asa/plavix - cont statin - ranexa - pt refusing long acting nitro given previous dizziness, states ok prn sln spray - titrate medications as tolerated by bp - fluid mgmt with iHD, low na diet - recheck dig level in a few days - pt/ot Problems: Consultation Date/Type/Reason Admit Date/Time May 01, 2017 at 21:31 Type of Consultation: Pulmonary 24 HR Interval Summary Free Text/Dictation seen 05/05 am. no cp/sob. pt states feeling well. ready to work with pt Detailed Summary Eyes: no complaints ENT: no complaints Respiratory: no complaints Cardiovascular: no complaints Gastrointestinal: no complaints Exam/Review of Systems Vital Signs Vitals Vital Signs Date Time Temp Pulse Resp B/P Pulse Ox O2 Delivery O2 Flow Rate FiO2 05/06/17 18:06 10.0 05/06/17 16:29 93 05/06/17 15:06 98.0 19 106/31 96 05/06/17 15:04 Simple Mask 05/05/17 09:00 21 Intake and Output 05/05/17 05/05/17 05/06/17 15:00 23:00 07:00 Intake Total 300 ml 350 ml Balance 300 ml 350 ml Exam Constitutional: alert, oriented Psych: depression Head: normocephalic Eyes: nl conjunctiva ENMT: nl external ears & nose Neck: jvd, supple Respiratory: crackles in base/lateral wright clear with cough Cardiovascular: regular rate and rhythm, No edema Gastrointestinal: soft Ext: L fistula + thrill Results Result Diagram: 05/06/17 0650 05/04/17 0550 Results 24 hrs Laboratory Tests Test 05/06/17 06:50 White Blood Count 5.4 Red Blood Count 2.47 L Hemoglobin 7.2 L Hematocrit 24.7 L Mean Corpuscular Volume 100.0 Mean Corpuscular Hemoglobin 29.1 Mean Corpuscular Hemoglobin Concent 29.1 L Red Cell Distribution Width 20.8 H Platelet Count 162 Mean Platelet Volume 9.9 Neutrophils % 75.1 Lymphocytes % 16.1 Monocytes % 6.1 Eosinophils % 1.9 Basophils % 0.4 Nucleated Red Blood Cells % 0.0 Neutrophils # 4.1 Lymphocytes # 0.9 Monocytes # 0.3 Eosinophils # 0.1 Basophils # 0.0 Nucleated Red Blood Cells # 0.0 Medications Medications Current Medications Allopurinol (Zyloprim) 100 mg DAILY PO Last administered on 05/06/17 08:11; Admin Dose 100 MG; Start 05/02/17 at 09:00 Alprazolam (Xanax) 0.25 mg QHS PRN PO ANXIETY Last administered on 05/05/17 21 :56; Admin Dose 0.25 MG; Start 05/01/17 at 22:00 Aspirin (Halfprin) 81 mg QHS PO Last administered on 05/05/17 20:35; Admin Dose 81 MG; Start 05/02/17 at 21:00 Atorvastatin Calcium (Lipitor) 40 mg QHS PO Last administered on 05/05/17 20: 36; Admin Dose 40 MG; Start 05/02/17 at 21:00 Clopidogrel Bisulfate (plaVIX) 75 mg QHS PO Last administered on 05/05/17 20: 36; Admin Dose 75 MG; Start 05/02/17 at 21:00 Losartan Potassium (Cozaar) 25 mg DAILY PO ; Start 05/02/17 at 09:00 Multivit/Ca Carb/ B Cmplx/FA/Prenat (Gi-Evelio) 1 tab DAILY PO Last administered on 05/06/17 08:11; Admin Dose 1 TAB; Start 05/02/17 at 09:00 Ranolazine (Ranexa) 500 mg Q12 PO Last administered on 05/06/17 08:11; Admin Dose 500 MG; Start 05/02/17 at 09:00 Ropinirole HCl (Requip) 0.5 mg TID PO Last administered on 05/06/17 17:06; Admin Dose 0.5 MG; Start 05/02/17 at 09:00 Zolpidem Tartrate (Ambien) 7.5 mg QHS PRN PO INSOMNIA; Start 05/01/17 at 22:00 Pantoprazole (Protonix Tab) 40 mg DAILY@06 PO ; Start 05/02/17 at 06:00 Miscellaneous Information 2 puff DAILY INHALATION ; Start 05/02/17 at 09:00; Status UNV Nitroglycerin (Nitroglycerin (Sl Tab) 0.4 Mg) 1 tab Q5M PRN SL ANGINA; Start at 22:30 Morphine Sulfate (morphine) 4 mg Q2 PRN IV PAIN Last administered on 05/01/17 22:55; Admin Dose 4 MG; Start 05/01/17 at 22:30 Docusate Sodium (Colace) 100 mg TID PRN PO CONSTIPATION Last administered on 08:50; Admin Dose 100 MG; Start 05/02/17 at 09:00 Miscellaneous Information (*Order Clarification Bulletin) Tiotropium [place] ( Spiriva Respimat... Q8H XX ; Start 05/02/17 at 10:00 Nitroglycerin (Nitroglycerin ([place])) 1 spray Q5M PRN SL ANGINA; Start at 10:30 Procedures Procedures tele reiewed vpaced SUSANA VASQUEZ May 06, 2017 18:13
[2017-05-06] MEDS: ASPIRIN (EC) 81 MG TAB PO SCH (20:59)
[2017-05-06] MEDS: ATORVASTATIN 40 MG TAB PO SCH (20:59)
[2017-05-06] MEDS: CLOPIDOGREL 75 MG TAB PO SCH (20:59)
[2017-05-07] VITALS (19 sets, daily range): BP systolic 117–129; BP diastolic 43–66; PULSE 83–96; RESP 15–18
[2017-05-07] MEDS: ALBUTEROL/IPRATROPIUM (NEB) 3 ML AMP HHN SCH ×5 (01:35→20:35)
[2017-05-07] MEDS: [UNRECOGNIZED DRUG - OTHER] XX SCH ×3 (02:00→17:29)
[2017-05-07] MEDS: TIOTROPIUM BROMIDE XX SCH ×3 (02:00→17:29)
[2017-05-07] MEDS: PANTOPRAZOLE (EC) 40 MG TAB PO SCH (06:55)
[2017-05-07] MEDS: SEVELAMER 800 MG TAB PO SCH ×3 (07:55→17:55)
[2017-05-07 08:03] LABS: ADD SCAN DIFF NO
--- NOTE | 2017-05-07 08:09 | CONS ---
Date/Time of Note Date/Time of Note DATE: 05/07/17 TIME: 08:07 Assessment/Plan Assessment/Plan Problems: (1) Constipation Comment: wrote orders for prn meds after discussing w pt (2) ESRD (end stage renal disease) on dialysis Status: Chronic Comment: for HD today, w 2U PRBC... next HD Sat, then back to MWF (3) Anemia Status: Chronic Comment: for 2U today w HD Consultation Date/Type/Reason Admit Date/Time May 01, 2017 at 21:31 Type of Consultation: neph 24 HR Interval Summary Free Text/Dictation doing well... anxious to do more PT Exam/Review of Systems Vital Signs Vitals Vital Signs Date Time Temp Pulse Resp B/P Pulse Ox O2 Delivery O2 Flow Rate FiO2 05/07/17 07:26 98.0 93 18 124/57 98 05/07/17 01:36 Nasal Cannula 5.0 05/05/17 09:00 21 Intake and Output 05/06/17 05/06/17 05/07/17 15:00 23:00 07:00 Intake Total 500 ml 800 ml 500 ml Output Total 3400 ml Balance -2900 ml 800 ml 500 ml Exam Constitutional: alert, oriented Neck: supple Respiratory: clear to auscultation Cardiovascular: regular rate and rhythm Gastrointestinal: soft Extremities: normal pulses (fxn AVF LUE) Results Result Diagram: 05/06/17 0650 05/04/17 0550 Medications Medications Current Medications Allopurinol (Zyloprim) 100 mg DAILY PO Last administered on 05/06/17 08:11; Admin Dose 100 MG; Start 05/02/17 at 09:00 Alprazolam (Xanax) 0.25 mg QHS PRN PO ANXIETY Last administered on 05/05/17 21 :56; Admin Dose 0.25 MG; Start 05/01/17 at 22:00 Aspirin (Halfprin) 81 mg QHS PO Last administered on 05/06/17 20:59; Admin Dose 81 MG; Start 05/02/17 at 21:00 Atorvastatin Calcium (Lipitor) 40 mg QHS PO Last administered on 05/06/17 20: 59; Admin Dose 40 MG; Start 05/02/17 at 21:00 Clopidogrel Bisulfate (plaVIX) 75 mg QHS PO Last administered on 05/06/17 20: 59; Admin Dose 75 MG; Start 05/02/17 at 21:00 Losartan Potassium (Cozaar) 25 mg DAILY PO ; Start 05/02/17 at 09:00 Multivit/Ca Carb/ B Cmplx/FA/Prenat (Gi-Evelio) 1 tab DAILY PO Last administered on 05/06/17 08:11; Admin Dose 1 TAB; Start 05/02/17 at 09:00 Ranolazine (Ranexa) 500 mg Q12 PO Last administered on 05/06/17 20:59; Admin Dose 500 MG; Start 05/02/17 at 09:00 Ropinirole HCl (Requip) 0.5 mg TID PO Last administered on 05/06/17 20:59; Admin Dose 0.5 MG; Start 05/02/17 at 09:00 Zolpidem Tartrate (Ambien) 7.5 mg QHS PRN PO INSOMNIA; Start 05/01/17 at 22:00 Pantoprazole (Protonix Tab) 40 mg DAILY@06 PO Last administered on 05/07/17 06 :55; Admin Dose 40 MG; Start 05/02/17 at 06:00 Miscellaneous Information 2 puff DAILY INHALATION ; Start 05/02/17 at 09:00; Status UNV Nitroglycerin (Nitroglycerin (Sl Tab) 0.4 Mg) 1 tab Q5M PRN SL ANGINA; Start at 22:30 Morphine Sulfate (morphine) 4 mg Q2 PRN IV PAIN Last administered on 05/01/17 22:55; Admin Dose 4 MG; Start 05/01/17 at 22:30 Docusate Sodium (Colace) 100 mg TID PRN PO CONSTIPATION Last administered on 08:50; Admin Dose 100 MG; Start 05/02/17 at 09:00 Miscellaneous Information (*Order Clarification Bulletin) Tiotropium [place] ( Spiriva Respimat... Q8H XX ; Start 05/02/17 at 10:00 Nitroglycerin (Nitroglycerin ([place])) 1 spray Q5M PRN SL ANGINA; Start at 10:30 POP BOYCE MD May 07, 2017 08:09
[2017-05-07 08:15] LABS: ABNORMAL IP MESSAGE 1; HEMATOCRIT 24.5 % (42.0-52.0); MEAN CORPUSCULAR HEMOGLOBIN 28.3 pg (29.0-33.0); MEAN CORPUSCULAR HGB CONC 28.2 g/dl (32.0-37.0); MEAN CORPUSCULAR VOLUME 100.4 fl (82.0-101.0); MEAN PLATELET VOLUME 10.3 fl (7.4-10.4); PLATELET COUNT 159 10^3/UL (140-415); RED BLOOD COUNT 2.44 10^6/ul (4.70-6.10); RED CELL DISTRIBUTION WIDTH 20.7 % (11.5-14.5); WHITE BLOOD COUNT 4.5 10^3/ul (4.8-10.8)
[2017-05-07 08:21] LABS: HEMOGLOBIN 6.9 g/dl (14.0-18.0)
[2017-05-07] MEDS ORDERED: DOCUSATE SODIUM 250 MG CAP PO PRN (08:30)
[2017-05-07] MEDS: LOSARTAN 25 MG TAB PO SCH (08:32)
[2017-05-07] MEDS: RANOLAZINE (SR) 500 MG TAB PO SCH ×3 (08:32→20:49)
[2017-05-07] MEDS: ALLOPURINOL 100 MG TAB PO SCH ×2 (08:33→12:02)
[2017-05-07] MEDS: MULTIVIT/CA CARB/B CMPLX/FA TAB PO SCH ×2 (08:33→12:01)
[2017-05-07 08:37] LABS: CALCIUM 9.4 mg/dl (8.4-10.2); CREATININE 4.71 mg/dl (0.61-1.24); POTASSIUM 3.7 mmol/L (3.5-5.1)
[2017-05-07] MEDS: ROPINIROLE 0.25 MG TAB PO PRN ×3 (08:47→20:50)
--- NOTE | 2017-05-07 09:22 | RADRPT ---
Echocardiogram Report Patient Name: RELL OBANDO Gender: Male Date: 1945 Study Date: 03-May-2017 Digital Solutions Architect: Radha [facility] Location: 521 Ref. Physician: SUSANA VASQUEZ Quality: Adequate Procedures: Transthoracic echocardiogram with complete 2D, M-Mode, and doppler examination. Indications: Chest Pain. 2D/M Mode Doppler Measurement Value Normal Ranges Measurement Value Normal Ranges LVIDd 2D 4.5 3.5 - 5.6 cm AV Peak Gene 1.4 m/sec LVIDs 2D 3.9 2.1 - 4.1 cm AV Peak PG 8.0 mmHg FS 2D 13.9 % AI Peak PG 43.0 mmHg LVPWd 2D 1.3 0.6 - 1.1 cm AI Peak Gene 3.3 m/sec IVSd 2D 1.3 0.6 - 1.1 cm AI PHT 349.0 msec IVS/LVPW 2D 1.0 LVOT Peak Gene 0.8 m/sec AoR Diam 2D 3.0 2.0 - 3.7 cm LVOT Peak PG 2.0 mmHg LA/Ao 2D 1 0 - 1 MV E Peak Gene 1.3 m/sec EDV 2D 93.0 cm3 MV A Peak Gene 1.0 m/sec ESV 2D 59.3 cm3 MV E/A 1.3 LA Dimen 2D 4.3 2.3 - 4.0 cm MV Decel Time 123 msec MV E/A 1.3 MR Peak PG 131.0 mmHg MR Peak Gene 5.7 m/sec TR Peak Gene 2.8 m/sec TR Peak PG 32.0 mmHg RVSP 35.0 mmHg Findings Left Ventricle: Normal left ventricular cavity size. Mild concentric left ventricular hypertrophy. Moderate global left ventricular systolic dysfunction. Ejection fraction is visually estimated at 35 %. Tissue Doppler/Mitral Doppler indices are within normal limits. E/E`=17. marked inf-basal,infero-lateral and basal lateral hypokinesis,c/w ischemic cardiomyopathy. Grade III diastolic dysfunction. Right Ventricle: Normal right ventricular size. Normal right ventricular systolic function. Linear artifact in right ventricle suggestive of catheter, pacer lead, or ICD lead. Pacemaker right heart. Left Atrium: There is mild enlargement of left atrium. Right Atrium: The right atrium is normal in size. Linear artifact in right atrium suggestive of catheter, pacer lead, or ICD lead. Mitral Valve: Mild mitral leaflet calcification. Mild mitral annular calcification. Moderate to severe mitral valve regurgitation. Aortic Valve: Aortic sclerosis without stenosis. Mild aortic valve regurgitation. Tricuspid Valve: Normal appearance of the tricuspid valve. Estimated peak PA systolic pressure 30 mmHg. There is mild tricuspid regurgitation. Pulmonic Valve: Pulmonic valve not well visualized. There is trace pulmonic regurgitation. Pericardium: Normal pericardium with no significant pericardial effusion. Aorta: Normal aortic root. IVC: Normal size and normal respiratory collapse consistent with normal right atrial pressure. Conclusions 1.Normal size and normal respiratory collapse consistent with normal right atrial pressure. 2.Normal left ventricular cavity size. Mild concentric left ventricular hypertrophy. Moderate global left ventricular systolic dysfunction. Ejection fraction is visually estimated at 35 %. Tissue Doppler/Mitral Doppler indices are within normal limits. E/E`=17. marked inf-basal,infero-lateral and basal lateral hypokinesis,c/w ischemic cardiomyopathy. Grade III diastolic dysfunction. 3.Normal right ventricular size. Normal right ventricular systolic function. Linear artifact in right ventricle suggestive of catheter, pacer lead, or ICD lead. Pacemaker right heart. 4.There is mild enlargement of left atrium. 5.The right atrium is normal in size. Linear artifact in right atrium suggestive of catheter, pacer lead, or ICD lead. 6.Mild mitral leaflet calcification. Mild mitral annular calcification. Moderate to severe mitral valve regurgitation. 7.Aortic sclerosis without stenosis. Mild aortic valve regurgitation. 8.Normal appearance of the tricuspid valve. Estimated peak PA systolic pressure 30 mmHg. There is mild tricuspid regurgitation. 9.Normal pericardium with no significant pericardial effusion. 10.No Vegetation, masses, or thrombi seen. Electronically Signed By: Eugene Augiar 07-May-2017 09:21:08 -0700 Patient Name: RELL OBANDO Study Date: 03-May-[id number]
[2017-05-07 11:15] LABS: EOSINOPHILS # 0.1 10^3/ul (0.0-0.5); LYMPHOCYTES # 0.9 10^3/ul (0.8-2.9); NEUTROPHIL # 3.4 10^3/ul (1.6-7.5)
--- NOTE | 2017-05-07 11:47 | CONS ---
Date/Time of Note Date/Time of Note DATE: 05/07/17 TIME: 11:46 Consult Date/Type/Reason Admit Date/Time May 01, 2017 at 21:31 Type of Consultation: Pulmonary Subjective Patient doing okay this morning no new events Objective Vital Signs Date Time Temp Pulse Resp B/P Pulse Ox O2 Delivery O2 Flow Rate FiO2 05/07/17 11:00 83 18 05/07/17 08:35 Nasal Cannula 6.0 05/07/17 07:26 98.0 124/57 98 05/05/17 09:00 21 Intake and Output 05/06/17 05/06/17 05/07/17 15:00 23:00 07:00 Intake Total 500 ml 800 ml 500 ml Output Total 3400 ml Balance -2900 ml 800 ml 500 ml Exam GENERAL: Elderly gentleman comfortable at rest VITAL SIGNS: per chart NECK: Supple. No JVD or lymphadenopathy. CARDIAC EXAM: S1, S2. 1/6 systolic ejection murmur CHEST: Morbidly obese diminished air entry both lung wright ABDOMEN: Soft, nontender. No guarding or rebound. EXTREMITIES: No cyanosis, clubbing or edema +2 NEUROLOGIC: Generalized weakness. No focal deficits. Results/Medications Result Diagram: 05/07/1712 05/07/17 0712 Results 24 hrs Laboratory Tests Test 05/07/17 07:12 White Blood Count 4.5 L Red Blood Count 2.44 L Hemoglobin 6.9 *L Hematocrit 24.5 L Mean Corpuscular Volume 100.4 Mean Corpuscular Hemoglobin 28.3 L Mean Corpuscular Hemoglobin Concent 28.2 L Red Cell Distribution Width 20.7 H Platelet Count 159 Mean Platelet Volume 10.3 Neutrophils % 75.0 Band Neutrophils % 2.0 Lymphocytes % 19.0 Monocytes % 1.0 Eosinophils % 3.0 Neutrophils # 3.4 Lymphocytes # 0.9 Monocytes # 0.0 L Eosinophils # 0.1 Sodium Level 145 H Potassium Level 3.7 Chloride Level 99 Carbon Dioxide Level 29 Anion Gap 21 H Blood Urea Nitrogen 32 H Creatinine 4.71 H Glucose Level 108 Calcium Level 9.4 Medications Current Medications Allopurinol (Zyloprim) 100 mg DAILY PO Last administered on 05/06/17t 08:11; Admin Dose 100 MG; Start 05/02/17 at 09:00 Alprazolam (Xanax) 0.25 mg QHS PRN PO ANXIETY Last administered on 05/05/17 21 :56; Admin Dose 0.25 MG; Start 05/01/17 at 22:00 Aspirin (Halfprin) 81 mg QHS PO Last administered on 05/06/17 20:59; Admin Dose 81 MG; Start 05/02/17 at 21:00 Atorvastatin Calcium (Lipitor) 40 mg QHS PO Last administered on 05/06/17 20: 59; Admin Dose 40 MG; Start 05/02/17 at 21:00 Clopidogrel Bisulfate (plaVIX) 75 mg QHS PO Last administered on 05/06/17 20: 59; Admin Dose 75 MG; Start 05/02/17 at 21:00 Losartan Potassium (Cozaar) 25 mg DAILY PO ; Start 05/02/17 at 09:00 Multivit/Ca Carb/ B Cmplx/FA/Prenat (Gi-Evelio) 1 tab DAILY PO Last administered on 05/06/17 08:11; Admin Dose 1 TAB; Start 05/02/17 at 09:00 Ranolazine (Ranexa) 500 mg Q12 PO Last administered on 05/06/17 20:59; Admin Dose 500 MG; Start 05/02/17 at 09:00 Zolpidem Tartrate (Ambien) 7.5 mg QHS PRN PO INSOMNIA; Start 05/01/17 at 22:00 Pantoprazole (Protonix Tab) 40 mg DAILY@06 PO Last administered on 05/07/17 06 :55; Admin Dose 40 MG; Start 05/02/17 at 06:00 Nitroglycerin (Nitroglycerin (Sl Tab) 0.4 Mg) 1 tab Q5M PRN SL ANGINA; Start at 22:30 Morphine Sulfate (morphine) 4 mg Q2 PRN IV PAIN Last administered on 05/01/17 22:55; Admin Dose 4 MG; Start 05/01/17 at 22:30 Docusate Sodium (Colace) 100 mg TID PRN PO CONSTIPATION Last administered on 08:50; Admin Dose 100 MG; Start 05/02/17 at 09:00 Miscellaneous Information (*Order Clarification Bulletin) Tiotropium [place] ( Spiriva Respimat... Q8H XX Last administered on 05/07/17 11:13; Admin Dose 1 EA; Start 05/02/17 at 10:00 Nitroglycerin (Nitroglycerin ([place])) 1 spray Q5M PRN SL ANGINA; Start at 10:30 Ropinirole HCl (Requip) 0.5 mg Q4 PRN PO NOTE Last administered on 05/07/17 08 :47; Admin Dose 0.5 MG; Start 05/07/17 at 09:00 Docusate Sodium (Colace) 250 mg BID PRN PO CONSTIPATION; Start 05/07/17 at 08: 30 Bisacodyl (Dulcolax) 10 mg DAILY PRN PO CONSTIPATION; Start 05/07/17 at 08:30 Assessment/Plan Chief Complaint/Hosp Course Assessment 1. Dyspnea likely secondary to pulmonary edema 2. Diabetes mellitus 3. End-stage renal failure on hemodialysis 4. History of chronic anemia secondary to end-stage renal failure. 5. Recent biventricular pacemaker placement 6. Anemia likely secondary to chronic kidney disease Plan 1. CT chest to evaluate lung parenchyma moderate pleural effusions may require thoracentesis if not removed with hemodialysis apical groundglass findings likely more consistent with interstitial edema. Differential does include inflammatory process however this is less likely given patient's clinical appearance. Recommend outpatient CT scan 2. Continue with dialysis and volume removal 3. Outpatient pulmonary function testing 4. Cardiac recommendations 5. Encourage out of bed. 6. Iron replacement and/or Epogen per nephrology, consider transfusion 1 unit packed red blood cells with hemodialysis Discharge planning okay from pulmonary standpoint Problems: MUKUND URBANO MD, [facility] May 07, 2017 11:47
[2017-05-07] MEDS: ASPIRIN (EC) 81 MG TAB PO SCH (20:49)
[2017-05-07] MEDS: ATORVASTATIN 40 MG TAB PO SCH (20:50)
[2017-05-07] MEDS: CLOPIDOGREL 75 MG TAB PO SCH (20:50)
[2017-05-07] MEDS: ZOLPIDEM 5 MG TAB PO PRN (22:06)
[2017-05-07] MEDS: DOCUSATE SODIUM 100 MG CAP PO PRN (22:10)
[2017-05-07] MEDS: BISACODYL (EC) 5 MG TAB PO PRN (22:11)
[2017-05-08] VITALS (11 sets, daily range): BP systolic 127–137; BP diastolic 55–67; PULSE 89–95; RESP 18–20
[2017-05-08] MEDS: ALBUTEROL/IPRATROPIUM (NEB) 3 ML AMP HHN SCH ×5 (02:00→19:27)
[2017-05-08] MEDS: [UNRECOGNIZED DRUG - OTHER] XX SCH ×3 (02:00→19:30)
[2017-05-08] MEDS: TIOTROPIUM BROMIDE XX SCH ×3 (02:00→19:30)
[2017-05-08] MEDS: PANTOPRAZOLE (EC) 40 MG TAB PO SCH (06:38)
[2017-05-08] MEDS: SEVELAMER 800 MG TAB PO SCH ×4 (07:55→18:17)
[2017-05-08 07:59] LABS: ADD SCAN DIFF NO
[2017-05-08 08:03] LABS: BASOPHILS % 0.5 % (0.0-2.0); EOSINOPHILS # 0.1 10^3/ul (0.0-0.5); EOSINOPHILS % 2.1 % (0.0-7.0); HEMATOCRIT 32.5 % (42.0-52.0); HEMOGLOBIN 10.2 g/dl (14.0-18.0); LYMPHOCYTES # 0.9 10^3/ul (0.8-2.9); LYMPHOCYTES % 14.9 % (15.0-51.0); MEAN CORPUSCULAR HEMOGLOBIN 29.8 pg (29.0-33.0); MEAN CORPUSCULAR HGB CONC 31.4 g/dl (32.0-37.0); MEAN PLATELET VOLUME 9.4 fl (7.4-10.4); MONOCYTE # 0.4 10^3/ul (0.3-0.9); NEUTROPHIL # 4.7 10^3/ul (1.6-7.5); NEUTROPHILS % 75.2 % (39.0-77.0); PLATELET COUNT 164 10^3/UL (140-415); RED BLOOD COUNT 3.42 10^6/ul (4.70-6.10); RED CELL DISTRIBUTION WIDTH 19.6 % (11.5-14.5); WHITE BLOOD COUNT 6.2 10^3/ul (4.8-10.8)
[2017-05-08] MEDS: LOSARTAN 25 MG TAB PO SCH (09:00)
[2017-05-08] MEDS: RANOLAZINE (SR) 500 MG TAB PO SCH ×2 (10:25→20:37)
[2017-05-08] MEDS: MULTIVIT/CA CARB/B CMPLX/FA TAB PO SCH (10:26)
[2017-05-08] MEDS: ALLOPURINOL 100 MG TAB PO SCH (10:26)
[2017-05-08] MEDS: ROPINIROLE 0.25 MG TAB PO PRN ×3 (10:59→20:37)
--- NOTE | 2017-05-08 13:15 | CONS ---
Date/Time of Note Date/Time of Note DATE: 05/08/17 TIME: 13:13 Assessment/Plan Assessment/Plan Problems: (1) Debility Comment: improving w PT... hope to d/c early next week if cont to improve (2) Cough Comment: check CXR to reassess fluid status (3) Anemia Status: Chronic Comment: better post 2U yesterday (4) ESRD (end stage renal disease) on dialysis Status: Chronic Comment: for HD tomorrow, Sat... then back to MWF schedule Consultation Date/Type/Reason Admit Date/Time May 01, 2017 at 21:31 Type of Consultation: neph 24 HR Interval Summary Free Text/Dictation sl stronger.. is out amb w PT now... still some PERRY Exam/Review of Systems Vital Signs Vitals Vital Signs Date Time Temp Pulse Resp B/P Pulse Ox O2 Delivery O2 Flow Rate FiO2 05/08/17 12:30 98.0 96 18 127/56 98 05/08/17 08:25 5.0 05/08/17 08:15 Simple Mask 05/05/17 09:00 21 Intake and Output 05/07/17 05/07/17 05/08/17 15:00 23:00 07:00 Intake Total 1000 ml 1450 ml 500 ml Output Total 3800 ml Balance -2800 ml 1450 ml 500 ml Exam Constitutional: alert, oriented Head: normocephalic Neck: supple Respiratory: clear to auscultation Cardiovascular: regular rate and rhythm Gastrointestinal: soft Extremities: normal pulses (fxn AVF LUE) Results Result Diagram: 05/08/17 0751 05/07/17 0712 Results 24 hrs Laboratory Tests Test 05/08/17 06:24 05/08/17 07:51 Lab Scanned Report BLOOD TRANSFUSION White Blood Count 6.2 # Red Blood Count 3.42 #L Hemoglobin 10.2 #L Hematocrit 32.5 #L Mean Corpuscular Volume 95.0 Mean Corpuscular Hemoglobin 29.8 Mean Corpuscular Hemoglobin Concent 31.4 L Red Cell Distribution Width 19.6 H Platelet Count 164 Mean Platelet Volume 9.4 Neutrophils % 75.2 Lymphocytes % 14.9 L Monocytes % 7.0 Eosinophils % 2.1 Basophils % 0.5 Neutrophils # 4.7 Lymphocytes # 0.9 Monocytes # 0.4 Eosinophils # 0.1 Basophils # 0.0 Nucleated Red Blood Cells # 0.0 Medications Medications Current Medications Allopurinol (Zyloprim) 100 mg DAILY PO Last administered on 05/08/17 10:26; Admin Dose 100 MG; Start 05/02/17 at 09:00 Alprazolam (Xanax) 0.25 mg QHS PRN PO ANXIETY Last administered on 05/05/17 21 :56; Admin Dose 0.25 MG; Start 05/01/17 at 22:00 Aspirin (Halfprin) 81 mg QHS PO Last administered on 05/07/17 20:49; Admin Dose 81 MG; Start 05/02/17 at 21:00 Atorvastatin Calcium (Lipitor) 40 mg QHS PO Last administered on 05/07/17 20: 50; Admin Dose 40 MG; Start 05/02/17 at 21:00 Clopidogrel Bisulfate (plaVIX) 75 mg QHS PO Last administered on 05/07/17 20: 50; Admin Dose 75 MG; Start 05/02/17 at 21:00 Losartan Potassium (Cozaar) 25 mg DAILY PO ; Start 05/02/17 at 09:00 Multivit/Ca Carb/ B Cmplx/FA/Prenat (Gi-Evelio) 1 tab DAILY PO Last administered on 05/08/17 10:26; Admin Dose 1 TAB; Start 05/02/17 at 09:00 Ranolazine (Ranexa) 500 mg Q12 PO Last administered on 05/08/17 10:25; Admin Dose 500 MG; Start 05/02/17 at 09:00 Zolpidem Tartrate (Ambien) 7.5 mg QHS PRN PO INSOMNIA Last administered on 05/07 22:06; Admin Dose 7.5 MG; Start 05/01/17 at 22:00 Pantoprazole (Protonix Tab) 40 mg DAILY@06 PO Last administered on 05/08/17 06 :38; Admin Dose 40 MG; Start 05/02/17 at 06:00 Nitroglycerin (Nitroglycerin (Sl Tab) 0.4 Mg) 1 tab Q5M PRN SL ANGINA; Start at 22:30 Morphine Sulfate (morphine) 4 mg Q2 PRN IV PAIN Last administered on 05/01/17 22:55; Admin Dose 4 MG; Start 05/01/17 at 22:30 Docusate Sodium (Colace) 100 mg TID PRN PO CONSTIPATION Last administered on 22:10; Admin Dose 100 MG; Start 05/02/17 at 09:00 Miscellaneous Information (*Order Clarification Bulletin) Tiotropium [place] ( Spiriva Respimat... Q8H XX Last administered on 05/07/17 17:29; Admin Dose 1 EA; Start 05/02/17 at 10:00 Nitroglycerin (Nitroglycerin ([place])) 1 spray Q5M PRN SL ANGINA; Start at 10:30 Ropinirole HCl (Requip) 0.5 mg Q4 PRN PO NOTE Last administered on 05/08/17 10 :59; Admin Dose 0.5 MG; Start 05/07/17 at 09:00 Docusate Sodium (Colace) 250 mg BID PRN PO CONSTIPATION; Start 05/07/17 at 08: 30 Bisacodyl (Dulcolax) 10 mg DAILY PRN PO CONSTIPATION Last administered on 22:11; Admin Dose 10 MG; Start 05/07/17 at 08:30 POP BOYCE MD May 08, 2017 13:15
--- NOTE | 2017-05-08 15:58 | RADRPT ---
PROCEDURE: XR Chest. CLINICAL INDICATION: Shortness of breath and chest pain TECHNIQUE: Single AP portable chest. COMPARISON: 04/01/2017 Chest x-ray FINDINGS: The cardiomediastinal silhouette is within normal limits of size. Right dual-chamber pacemaker in pl ray. Atherosclerotic calcification of the aorta. Small pleural effusion and trace right pleural ef fusion. Mild vascular prominence. No pneumothorax. The osseous structures and soft tissues are unre markable. IMPRESSION: 1. No evidence for active cardiopulmonary disease. 2. Mild vascular congestion and trace bilateral pleural effusions left greater than right. RPTAT:AAJJ Radha Maradiaga Physician Date Time Electronically viewed and signed by Physician Ely on 05/08/2017 15:58 NISHA/
--- NOTE | 2017-05-08 17:53 | CONS ---
Date/Time of Note Date/Time of Note DATE: 05/08/17 TIME: 17:35 Consult Date/Type/Reason Admit Date/Time May 01, 2017 at 21:31 Type of Consultation: Pulmonary Subjective Patient comfortable with occasional cough Objective Vital Signs Date Time Temp Pulse Resp B/P Pulse Ox O2 Delivery O2 Flow Rate FiO2 05/08/17 17:10 6.0 05/08/17 16:52 90 05/08/17 15:56 98.0 18 127/55 99 05/08/17 14:25 Nasal Cannula 05/05/17 09:00 21 Intake and Output 05/07/17 05/07/17 05/08/17 14:59 22:59 06:59 Intake Total 1000 ml 1450 ml 500 ml Output Total 3800 ml Balance -2800 ml 1450 ml 500 ml Exam GENERAL: Elderly gentleman comfortable at rest VITAL SIGNS: per chart NECK: Supple. No JVD or lymphadenopathy. CARDIAC EXAM: S1, S2. 1/6 systolic ejection murmur CHEST: Morbidly obese diminished air entry both lung wright ABDOMEN: Soft, nontender. No guarding or rebound. EXTREMITIES: No cyanosis, clubbing or edema +2 NEUROLOGIC: Generalized weakness. No focal deficits. Results/Medications Result Diagram: 05/08/17 0751 05/07/17 0712 Results 24 hrs Laboratory Tests Test 05/08/17 06:24 05/08/17 07:51 Lab Scanned Report BLOOD TRANSFUSION White Blood Count 6.2 # Red Blood Count 3.42 #L Hemoglobin 10.2 #L Hematocrit 32.5 #L Mean Corpuscular Volume 95.0 Mean Corpuscular Hemoglobin 29.8 Mean Corpuscular Hemoglobin Concent 31.4 L Red Cell Distribution Width 19.6 H Platelet Count 164 Mean Platelet Volume 9.4 Neutrophils % 75.2 Lymphocytes % 14.9 L Monocytes % 7.0 Eosinophils % 2.1 Basophils % 0.5 Neutrophils # 4.7 Lymphocytes # 0.9 Monocytes # 0.4 Eosinophils # 0.1 Basophils # 0.0 Nucleated Red Blood Cells # 0.0 Medications Current Medications Allopurinol (Zyloprim) 100 mg DAILY PO Last administered on 05/08/17t 10:26; Admin Dose 100 MG; Start 05/02/17 at 09:00 Alprazolam (Xanax) 0.25 mg QHS PRN PO ANXIETY Last administered on 05/05/17 21 :56; Admin Dose 0.25 MG; Start 05/01/17 at 22:00 Aspirin (Halfprin) 81 mg QHS PO Last administered on 05/07/17 20:49; Admin Dose 81 MG; Start 05/02/17 at 21:00 Atorvastatin Calcium (Lipitor) 40 mg QHS PO Last administered on 05/07/17 20: 50; Admin Dose 40 MG; Start 05/02/17 at 21:00 Clopidogrel Bisulfate (plaVIX) 75 mg QHS PO Last administered on 05/07/17 20: 50; Admin Dose 75 MG; Start 05/02/17 at 21:00 Losartan Potassium (Cozaar) 25 mg DAILY PO ; Start 05/02/17 at 09:00 Multivit/Ca Carb/ B Cmplx/FA/Prenat (Gi-Evelio) 1 tab DAILY PO Last administered on 05/08/17 10:26; Admin Dose 1 TAB; Start 05/02/17 at 09:00 Ranolazine (Ranexa) 500 mg Q12 PO Last administered on 05/08/17 10:25; Admin Dose 500 MG; Start 05/02/17 at 09:00 Zolpidem Tartrate (Ambien) 7.5 mg QHS PRN PO INSOMNIA Last administered on 05/07 22:06; Admin Dose 7.5 MG; Start 05/01/17 at 22:00 Pantoprazole (Protonix Tab) 40 mg DAILY@06 PO Last administered on 05/08/17 06 :38; Admin Dose 40 MG; Start 05/02/17 at 06:00 Nitroglycerin (Nitroglycerin (Sl Tab) 0.4 Mg) 1 tab Q5M PRN SL ANGINA; Start at 22:30 Morphine Sulfate (morphine) 4 mg Q2 PRN IV PAIN Last administered on 05/01/17 22:55; Admin Dose 4 MG; Start 05/01/17 at 22:30 Docusate Sodium (Colace) 100 mg TID PRN PO CONSTIPATION Last administered on 22:10; Admin Dose 100 MG; Start 05/02/17 at 09:00 Miscellaneous Information (*Order Clarification Bulletin) Tiotropium [place] ( Spiriva Respimat... Q8H XX Last administered on 05/07/17 17:29; Admin Dose 1 EA; Start 05/02/17 at 10:00 Nitroglycerin (Nitroglycerin ([place])) 1 spray Q5M PRN SL ANGINA; Start at 10:30 Ropinirole HCl (Requip) 0.5 mg Q4 PRN PO NOTE Last administered on 05/08/17 16 :45; Admin Dose 0.5 MG; Start 05/07/17 at 09:00 Docusate Sodium (Colace) 250 mg BID PRN PO CONSTIPATION; Start 05/07/17 at 08: 30 Bisacodyl (Dulcolax) 10 mg DAILY PRN PO CONSTIPATION Last administered on 22:11; Admin Dose 10 MG; Start 05/07/17 at 08:30 Assessment/Plan Chief Complaint/Hosp Course Assessment 1. Dyspnea likely secondary to pulmonary edema 2. Diabetes mellitus 3. End-stage renal failure on hemodialysis 4. History of chronic anemia secondary to end-stage renal failure. 5. Recent biventricular pacemaker placement 6. Anemia likely secondary to chronic kidney disease Plan 1. Chest x-ray findings noted 2. Continue with dialysis and volume removal 3. Outpatient pulmonary function testing 4. Cardiac recommendations 5. Encourage out of bed. Problems: MUKUND URBANO MD, [facility] May 08, 2017 17:51
--- NOTE | 2017-05-08 19:04 | RADRPT ---
PROCEDURE: XR Chest. CLINICAL INDICATION: Respiratory distress. TECHNIQUE: Single frontal view of the chest. COMPARISON: 04/01/2017. FINDINGS: Right anterior chest wall dual chamber cardiac pacer and defibrillator is new over interval. Pacing lead tips over expected location the right atrium right ventricle. Pacing leads appear intact. Cardiomegaly. Atherosclerotic calcifications in the thoracic aorta. Mild pulmonary vascular congest ion. Left lung base atelectasis versus airspace disease with small left pleural effusion. The lungs are otherwise clear. No signs of pneumothorax are seen. The osseous structures and soft tissues are unremarkable. IMPRESSION: 1. Left lung base pleural effusion with mild atelectasis versus airspace disease at the costophreni c angle. 2. Mild pulmonary vascular congestion. RPTAT: [facility] Physician Mary Date Time Electronically viewed and signed by Physician Mary on 05/08/2017 19:04 RS/
[2017-05-08] MEDS: BISACODYL (EC) 5 MG TAB PO PRN (20:37)
[2017-05-08] MEDS: CLOPIDOGREL 75 MG TAB PO SCH (20:37)
[2017-05-08] MEDS: ATORVASTATIN 40 MG TAB PO SCH (20:37)
[2017-05-08] MEDS: ASPIRIN (EC) 81 MG TAB PO SCH (20:37)
[2017-05-08] MEDS: DOCUSATE SODIUM 100 MG CAP PO PRN (20:37)
[2017-05-08] MEDS: ZOLPIDEM 5 MG TAB PO PRN (20:37)
[2017-05-08] MEDS: ALPRAZOLAM 0.25 MG TAB PO PRN (23:27)
[2017-05-09] VITALS (21 sets, daily range): BP systolic 111–141; BP diastolic 26–88; PULSE 81–95; RESP 16–19
[2017-05-09] MEDS: [UNRECOGNIZED DRUG - OTHER] XX SCH ×3 (02:00→18:00)
[2017-05-09] MEDS: ALBUTEROL/IPRATROPIUM (NEB) 3 ML AMP HHN SCH ×5 (02:00→20:00)
[2017-05-09] MEDS: TIOTROPIUM BROMIDE XX SCH ×3 (02:00→18:00)
[2017-05-09] MEDS: PANTOPRAZOLE (EC) 40 MG TAB PO SCH (06:50)
[2017-05-09] MEDS: ROPINIROLE 0.25 MG TAB PO PRN ×3 (06:50→22:37)
[2017-05-09] MEDS: SEVELAMER 800 MG TAB PO SCH ×3 (08:20→17:55)
[2017-05-09] MEDS: MULTIVIT/CA CARB/B CMPLX/FA TAB PO SCH (08:20)
[2017-05-09] MEDS: LOSARTAN 25 MG TAB PO SCH (08:21)
[2017-05-09] MEDS: ALLOPURINOL 100 MG TAB PO SCH (08:21)
[2017-05-09] MEDS: RANOLAZINE (SR) 500 MG TAB PO SCH ×2 (08:21→20:48)
[2017-05-09] MEDS ORDERED: ALBUMIN HUMAN 25% 100 ML IV PRN (10:00)
[2017-05-09] MEDS: ALBUMIN HUMAN 25% 50 ML IV PRN ×2 (10:27→10:45)
--- NOTE | 2017-05-09 11:16 | CONS ---
Date/Time of Note Date/Time of Note DATE: 05/09/17 TIME: 11:14 Assessment/Plan Assessment/Plan Additional Assessment/Plan Assessment recommendations; 1. Patient admitted for shortness of breath due to pulmonary edema with marked improvement after being dialyzed. 2. History of end-stage renal disease. 3. History of cardiac arrhythmia, status post pacemaker placement. Continue current treatment. Patient responding well to current treatment regimen. Consultation Date/Type/Reason Admit Date/Time May 01, 2017 at 21:31 Initial Consult Date Type of Consultation: Pulmonary 24 HR Interval Summary Free Text/Dictation Patient condition stable. Denies any shortness of breath. Any chest pain, wheezing, sputum production. Currently getting hemodialysis at bedside. General exam; elderly male, awake alert currently in no distress. Laying flat in bed. Exam/Review of Systems Vital Signs Vitals Vital Signs Date Time Temp Pulse Resp B/P Pulse Ox O2 Delivery O2 Flow Rate FiO2 05/09/17 11:00 85 05/09/17 10:57 97.8 16 130/88 97 05/09/17 09:41 Nasal Cannula 6.0 05/05/17 09:00 21 Intake and Output 05/08/17 05/08/17 05/09/17 15:00 23:00 07:00 Intake Total 720 ml 500 ml Balance 720 ml 500 ml Exam HEENT exam; supple neck, no JVD. No lymphadenopathy. Midline trachea. No thyromegaly. Chest exam; clear to auscultation. S1-S2 audible, no murmurs. Regular rhythm. There is a pacemaker in the right chest wall. Abdomen exam; soft, nontender. No organomegaly. Bowel sounds audible. Extremity exam; no peripheral edema. Pulses 1+ bilaterally. No clubbing. GO GO DANCER exam; no focal deficit. Results Result Diagram: 05/08/17 0751 05/07/17 0712 Medications Medications Current Medications Allopurinol (Zyloprim) 100 mg DAILY PO Last administered on 05/09/17 08:21; Admin Dose 100 MG; Start 05/02/17 at 09:00 Alprazolam (Xanax) 0.25 mg QHS PRN PO ANXIETY Last administered on 05/08/17 23 :27; Admin Dose 0.25 MG; Start 05/01/17 at 22:00 Aspirin (Halfprin) 81 mg QHS PO Last administered on 05/08/17 20:37; Admin Dose 81 MG; Start 05/02/17 at 21:00 Atorvastatin Calcium (Lipitor) 40 mg QHS PO Last administered on 05/08/17 20: 37; Admin Dose 40 MG; Start 05/02/17 at 21:00 Clopidogrel Bisulfate (plaVIX) 75 mg QHS PO Last administered on 05/08/17 20: 37; Admin Dose 75 MG; Start 05/02/17 at 21:00 Losartan Potassium (Cozaar) 25 mg DAILY PO ; Start 05/02/17 at 09:00 Multivit/Ca Carb/ B Cmplx/FA/Prenat (Gi-Evelio) 1 tab DAILY PO Last administered on 05/09/17 08:20; Admin Dose 1 TAB; Start 05/02/17 at 09:00 Ranolazine (Ranexa) 500 mg Q12 PO Last administered on 05/09/17 08:21; Admin Dose 500 MG; Start 05/02/17 at 09:00 Zolpidem Tartrate (Ambien) 7.5 mg QHS PRN PO INSOMNIA Last administered on 05/08 20:37; Admin Dose 7.5 MG; Start 05/01/17 at 22:00 Pantoprazole (Protonix Tab) 40 mg DAILY@06 PO Last administered on 05/09/17 06 :50; Admin Dose 40 MG; Start 05/02/17 at 06:00 Nitroglycerin (Nitroglycerin (Sl Tab) 0.4 Mg) 1 tab Q5M PRN SL ANGINA; Start at 22:30 Morphine Sulfate (morphine) 4 mg Q2 PRN IV PAIN Last administered on 05/01/17 22:55; Admin Dose 4 MG; Start 05/01/17 at 22:30 Docusate Sodium (Colace) 100 mg TID PRN PO CONSTIPATION Last administered on 20:37; Admin Dose 100 MG; Start 05/02/17 at 09:00 Miscellaneous Information (*Order Clarification Bulletin) Tiotropium [place] ( Spiriva Respimat... Q8H XX Last administered on 05/07/17 17:29; Admin Dose 1 EA; Start 05/02/17 at 10:00 Nitroglycerin (Nitroglycerin ([place])) 1 spray Q5M PRN SL ANGINA; Start at 10:30 Ropinirole HCl (Requip) 0.5 mg Q4 PRN PO NOTE Last administered on 05/09/17 06 :50; Admin Dose 0.5 MG; Start 05/07/17 at 09:00 Docusate Sodium (Colace) 250 mg BID PRN PO CONSTIPATION; Start 05/07/17 at 08: 30 Bisacodyl (Dulcolax) 10 mg DAILY PRN PO CONSTIPATION Last administered on 20:37; Admin Dose 10 MG; Start 05/07/17 at 08:30 YUSUF FLAHERTY May 09, 2017 11:16
--- NOTE | 2017-05-09 14:19 | CONS ---
Date/Time of Note Date/Time of Note DATE: 05/09/17 TIME: 14:16 Assessment/Plan Assessment/Plan Additional Assessment/Plan (1) Debility Comment: improving w PT (2) Cough Comment: He feels like it is coming from irritation in his throat. Will try steroid nasal spray (3) Anemia Status: Chronic Comment: Improved post transfusion (4) ESRD (end stage renal disease) on dialysis Status: Chronic Comment: HD done today, next in 2 days. Consultation Date/Type/Reason Admit Date/Time May 01, 2017 at 21:31 Initial Consult Date Type of Consultation: Renal 24 HR Interval Summary Free Text/Dictation Alert, tired after dialysis. Complains of ongoing cough. Exam/Review of Systems Vital Signs Vitals Vital Signs Date Time Temp Pulse Resp B/P Pulse Ox O2 Delivery O2 Flow Rate FiO2 05/09/17 12:36 87 05/09/17 10:57 97.8 16 130/88 97 05/09/17 09:41 Nasal Cannula 6.0 05/05/17 09:00 21 Intake and Output 05/08/17 05/08/17 05/09/17 15:00 23:00 07:00 Intake Total 720 ml 500 ml Balance 720 ml 500 ml Exam Constitutional: alert Head: atraumatic, normocephalic Neck: supple Respiratory: clear to auscultation Cardiovascular: regular rate and rhythm, No murmurs/extra sounds Gastrointestinal: non-tender, soft Extremities: No edema Results Result Diagram: 05/08/17 0751 05/07/17 0712 Results 24 hrs Laboratory Tests Test 05/09/17 13:20 Blood Gas Specimen Source Blood arterial Arterial Blood Date Drawn 05/09/2017 1:25:00 PM Arterial Blood pH (Temp corrected) 7.532 H Arterial Blood pCO2 (Temp correct) 35.1 Arterial Blood pO2 (Temp corrected) 68.1 L Arterial Blood HCO3 28.8 H Arterial Blood Base Excess 6.0 H Arterial Blood Oxygen Saturation 93.8 L Semaj Test ACCEPTAB Arterial Blood Gas Puncture Site Right Radial Arterial Blood Carboxyhemoglobin 0.3 Arterial Blood Methemoglobin 0.4 Blood Gas A-a O2 Differential 176.7 H Oxyhemoglobin Percent 93.1 Total Hemoglobin 10.5 L Blood Gas Temperature 37.0 Blood Gas Respiration Rate 16.0 Blood Gas Actual Respiration Rate 24 Blood Gas Modality MASK - BIPAP FiO2 40.0 Blood Gas IPAP/EPAP Ratio 16/6 Blood Gas Notified Whom TM Blood Gas Notified Time 05/09/2017 1:46:00 PM Medications Medications Current Medications Allopurinol (Zyloprim) 100 mg DAILY PO Last administered on 05/09/17 08:21; Admin Dose 100 MG; Start 05/02/17 at 09:00 Alprazolam (Xanax) 0.25 mg QHS PRN PO ANXIETY Last administered on 05/08/17 23 :27; Admin Dose 0.25 MG; Start 05/01/17 at 22:00 Aspirin (Halfprin) 81 mg QHS PO Last administered on 05/08/17 20:37; Admin Dose 81 MG; Start 05/02/17 at 21:00 Atorvastatin Calcium (Lipitor) 40 mg QHS PO Last administered on 05/08/17 20: 37; Admin Dose 40 MG; Start 05/02/17 at 21:00 Clopidogrel Bisulfate (plaVIX) 75 mg QHS PO Last administered on 05/08/17 20: 37; Admin Dose 75 MG; Start 05/02/17 at 21:00 Losartan Potassium (Cozaar) 25 mg DAILY PO ; Start 05/02/17 at 09:00 Multivit/Ca Carb/ B Cmplx/FA/Prenat (Gi-Evelio) 1 tab DAILY PO Last administered on 05/09/17 08:20; Admin Dose 1 TAB; Start 05/02/17 at 09:00 Ranolazine (Ranexa) 500 mg Q12 PO Last administered on 05/09/17 08:21; Admin Dose 500 MG; Start 05/02/17 at 09:00 Zolpidem Tartrate (Ambien) 7.5 mg QHS PRN PO INSOMNIA Last administered on 05/08 20:37; Admin Dose 7.5 MG; Start 05/01/17 at 22:00 Pantoprazole (Protonix Tab) 40 mg DAILY@06 PO Last administered on 05/09/17 06 :50; Admin Dose 40 MG; Start 05/02/17 at 06:00 Nitroglycerin (Nitroglycerin (Sl Tab) 0.4 Mg) 1 tab Q5M PRN SL ANGINA; Start at 22:30 Morphine Sulfate (morphine) 4 mg Q2 PRN IV PAIN Last administered on 05/01/17 22:55; Admin Dose 4 MG; Start 05/01/17 at 22:30 Docusate Sodium (Colace) 100 mg TID PRN PO CONSTIPATION Last administered on 20:37; Admin Dose 100 MG; Start 05/02/17 at 09:00 Miscellaneous Information (*Order Clarification Bulletin) Tiotropium [place] ( Spiriva Respimat... Q8H XX Last administered on 05/07/17 17:29; Admin Dose 1 EA; Start 05/02/17 at 10:00 Nitroglycerin (Nitroglycerin ([place])) 1 spray Q5M PRN SL ANGINA; Start at 10:30 Ropinirole HCl (Requip) 0.5 mg Q4 PRN PO NOTE Last administered on 05/09/17 12 :49; Admin Dose 0.5 MG; Start 05/07/17 at 09:00 Docusate Sodium (Colace) 250 mg BID PRN PO CONSTIPATION; Start 05/07/17 at 08: 30 Bisacodyl (Dulcolax) 10 mg DAILY PRN PO CONSTIPATION Last administered on 20:37; Admin Dose 10 MG; Start 05/07/17 at 08:30 VINI REILLY MD May 09, 2017 14:19
[2017-05-09] MEDS ORDERED: BISACODYL 10 MG SUPP PR PRN (16:00)
[2017-05-09] MEDS: FLUTICASONE 0.05% 16 GM NAS SPRAY NASAL SCH (20:48)
[2017-05-09] MEDS: CLOPIDOGREL 75 MG TAB PO SCH (20:48)
[2017-05-09] MEDS: ATORVASTATIN 40 MG TAB PO SCH (20:48)
[2017-05-09] MEDS: ASPIRIN (EC) 81 MG TAB PO SCH (20:48)
[2017-05-09] MEDS: DOCUSATE SODIUM 100 MG CAP PO PRN (20:55)
[2017-05-09] MEDS: BISACODYL (EC) 5 MG TAB PO PRN (20:55)
[2017-05-09] MEDS: morphine 4 MG/ML VIAL IV PRN (23:22)
[2017-05-10] VITALS (11 sets, daily range): BP systolic 118–136; BP diastolic 56–78; PULSE 81–87; RESP 16–20
[2017-05-10] MEDS: TIOTROPIUM BROMIDE XX SCH ×3 (02:00→17:52)
[2017-05-10] MEDS: ALBUTEROL/IPRATROPIUM (NEB) 3 ML AMP HHN SCH ×5 (02:00→21:31)
[2017-05-10] MEDS: [UNRECOGNIZED DRUG - OTHER] XX SCH ×3 (02:00→17:52)
[2017-05-10] MEDS: PANTOPRAZOLE (EC) 40 MG TAB PO SCH (06:37)
[2017-05-10] MEDS: MULTIVIT/CA CARB/B CMPLX/FA TAB PO SCH (08:13)
[2017-05-10] MEDS: ALLOPURINOL 100 MG TAB PO SCH (08:13)
[2017-05-10] MEDS: SEVELAMER 800 MG TAB PO SCH ×3 (08:13→17:46)
[2017-05-10] MEDS: RANOLAZINE (SR) 500 MG TAB PO SCH ×2 (08:13→21:37)
[2017-05-10] MEDS: ROPINIROLE 0.25 MG TAB PO PRN ×2 (08:13→21:38)
[2017-05-10] MEDS: LOSARTAN 25 MG TAB PO SCH (08:14)
[2017-05-10] MEDS: FLUTICASONE 0.05% 16 GM NAS SPRAY NASAL SCH ×2 (08:14→21:37)
--- NOTE | 2017-05-10 14:45 | CONS ---
Date/Time of Note Date/Time of Note DATE: 05/10/17 TIME: 14:43 Assessment/Plan Assessment/Plan Additional Assessment/Plan (1) Debility Comment: improving w PT (2) Cough Comment: He feels like it is coming from irritation in his throat. Better today (3) Anemia Status: Chronic Comment: Improved post transfusion (4) ESRD (end stage renal disease) on dialysis Status: Chronic Comment: HD done today, next tomorrow Consultation Date/Type/Reason Admit Date/Time May 01, 2017 at 21:31 Type of Consultation: Renal 24 HR Interval Summary Free Text/Dictation Complains of weakness, no SOB or CP. Exam/Review of Systems Vital Signs Vitals Vital Signs Date Time Temp Pulse Resp B/P Pulse Ox O2 Delivery O2 Flow Rate FiO2 05/10/17 14:03 8.0 05/10/17 13:50 80 20 10 05/10/17 11:30 98.2 136/70 05/10/17 10:11 Nasal Cannula Intake and Output 05/09/17 05/09/17 05/10/17 15:00 23:00 07:00 Intake Total 600 ml 920 ml 400 ml Output Total 2600 ml Balance -2000 ml 920 ml 400 ml Exam Constitutional: alert Neck: supple Respiratory: clear to auscultation Cardiovascular: regular rate and rhythm Extremities: No clubbing, No edema Neurological: nl mental status Results Result Diagram: 05/08/17 0751 05/07/17 0712 Medications Medications Current Medications Allopurinol (Zyloprim) 100 mg DAILY PO Last administered on 05/10/17 08:13; Admin Dose 100 MG; Start 05/02/17 at 09:00 Alprazolam (Xanax) 0.25 mg QHS PRN PO ANXIETY Last administered on 05/08/17 23 :27; Admin Dose 0.25 MG; Start 05/01/17 at 22:00 Aspirin (Halfprin) 81 mg QHS PO Last administered on 05/09/17 20:48; Admin Dose 81 MG; Start 05/02/17 at 21:00 Atorvastatin Calcium (Lipitor) 40 mg QHS PO Last administered on 05/09/17 20: 48; Admin Dose 40 MG; Start 05/02/17 at 21:00 Clopidogrel Bisulfate (plaVIX) 75 mg QHS PO Last administered on 05/09/17 20: 48; Admin Dose 75 MG; Start 05/02/17 at 21:00 Losartan Potassium (Cozaar) 25 mg DAILY PO ; Start 05/02/17 at 09:00 Multivit/Ca Carb/ B Cmplx/FA/Prenat (Gi-Evelio) 1 tab DAILY PO Last administered on 05/10/17 08:13; Admin Dose 1 TAB; Start 05/02/17 at 09:00 Ranolazine (Ranexa) 500 mg Q12 PO Last administered on 05/10/17 08:13; Admin Dose 500 MG; Start 05/02/17 at 09:00 Zolpidem Tartrate (Ambien) 7.5 mg QHS PRN PO INSOMNIA Last administered on 05/08 20:37; Admin Dose 7.5 MG; Start 05/01/17 at 22:00 Pantoprazole (Protonix Tab) 40 mg DAILY@06 PO Last administered on 05/10/17 06 :37; Admin Dose 40 MG; Start 05/02/17 at 06:00 Nitroglycerin (Nitroglycerin (Sl Tab) 0.4 Mg) 1 tab Q5M PRN SL ANGINA; Start at 22:30 Morphine Sulfate (morphine) 4 mg Q2 PRN IV PAIN Last administered on 05/09/17 23:22; Admin Dose 4 MG; Start 05/01/17 at 22:30 Docusate Sodium (Colace) 100 mg TID PRN PO CONSTIPATION Last administered on 20:55; Admin Dose 100 MG; Start 05/02/17 at 09:00 Miscellaneous Information (*Order Clarification Bulletin) Tiotropium [place] ( Spiriva Respimat... Q8H XX Last administered on 05/07/17 17:29; Admin Dose 1 EA; Start 05/02/17 at 10:00 Nitroglycerin (Nitroglycerin ([place])) 1 spray Q5M PRN SL ANGINA; Start at 10:30 Ropinirole HCl (Requip) 0.5 mg Q4 PRN PO NOTE Last administered on 05/10/17 08 :13; Admin Dose 0.5 MG; Start 05/07/17 at 09:00 Docusate Sodium (Colace) 250 mg BID PRN PO CONSTIPATION; Start 05/07/17 at 08: 30 Bisacodyl (Dulcolax) 10 mg DAILY PRN PO CONSTIPATION Last administered on 20:55; Admin Dose 10 MG; Start 05/07/17 at 08:30 Fluticasone Propionate (Flonase 0.05% Nasal) 1 spray BID NASAL Last administered on 05/10/17 08:14; Admin Dose 1 SPRAY; Start 05/09/17 at 21:00 Bisacodyl (Dulcolax Supp) 10 mg DAILY PRN [place] CONSTIPATION; Start 05/09/17 at 16 :00 VINI REILLY MD May 10, 2017 14:45
[2017-05-10] MEDS: CLOPIDOGREL 75 MG TAB PO SCH (21:37)
[2017-05-10] MEDS: ASPIRIN (EC) 81 MG TAB PO SCH (21:37)
[2017-05-10] MEDS: ATORVASTATIN 40 MG TAB PO SCH (21:38)
[2017-05-10] MEDS: ZOLPIDEM 5 MG TAB PO PRN (21:45)
[2017-05-10] MEDS: BISACODYL (EC) 5 MG TAB PO PRN (21:46)
[2017-05-10] MEDS: DOCUSATE SODIUM 100 MG CAP PO PRN (21:46)
[2017-05-11] VITALS (20 sets, daily range): BP systolic 110–158; BP diastolic 50–84; PULSE 78–88; RESP 17–22
[2017-05-11] MEDS: ALBUTEROL/IPRATROPIUM (NEB) 3 ML AMP HHN SCH ×4 (02:00→20:00)
[2017-05-11] MEDS: [UNRECOGNIZED DRUG - OTHER] XX SCH ×3 (02:00→17:31)
[2017-05-11] MEDS: TIOTROPIUM BROMIDE XX SCH ×3 (02:00→17:31)
--- NOTE | 2017-05-11 07:43 | CONS ---
Date/Time of Note Date/Time of Note DATE: 05/11/17 TIME: 07:41 Assessment/Plan Assessment/Plan Problems: (1) SOB (shortness of breath) Comment: persists despite UF w dialysis... ? thoughts from dr Anaya? (2) Debility Comment: will see about ARU eval and transfer (3) Anemia Status: Chronic Comment: better post PRBC's (4) ESRD (end stage renal disease) on dialysis Status: Chronic Comment: for HD today Consultation Date/Type/Reason Admit Date/Time May 01, 2017 at 21:31 Type of Consultation: Renal 24 HR Interval Summary Free Text/Dictation still quite weak, altho is ambulating Exam/Review of Systems Vital Signs Vitals Vital Signs Date Time Temp Pulse Resp B/P Pulse Ox O2 Delivery O2 Flow Rate FiO2 05/11/17 05:30 98 8.0 05/11/17 04:13 78 05/11/17 04:00 98.4 17 132/58 05/10/17 21:58 Nasal Cannula Intake and Output 05/10/17 05/10/17 05/11/17 15:00 23:00 07:00 Intake Total 450 ml 360 ml Balance 450 ml 360 ml Exam Constitutional: alert, oriented Neck: supple Respiratory: clear to auscultation Cardiovascular: regular rate and rhythm Extremities: normal pulses (fxn AVF in LUE) Results Result Diagram: 05/08/17 0751 05/07/17 0712 Medications Medications Current Medications Allopurinol (Zyloprim) 100 mg DAILY PO Last administered on 05/10/17 08:13; Admin Dose 100 MG; Start 05/02/17 at 09:00 Alprazolam (Xanax) 0.25 mg QHS PRN PO ANXIETY Last administered on 05/08/17 23 :27; Admin Dose 0.25 MG; Start 05/01/17 at 22:00 Aspirin (Halfprin) 81 mg QHS PO Last administered on 05/10/17 21:37; Admin Dose 81 MG; Start 05/02/17 at 21:00 Atorvastatin Calcium (Lipitor) 40 mg QHS PO Last administered on 05/10/17 21: 38; Admin Dose 40 MG; Start 05/02/17 at 21:00 Clopidogrel Bisulfate (plaVIX) 75 mg QHS PO Last administered on 05/10/17 21: 37; Admin Dose 75 MG; Start 05/02/17 at 21:00 Losartan Potassium (Cozaar) 25 mg DAILY PO ; Start 05/02/17 at 09:00 Multivit/Ca Carb/ B Cmplx/FA/Prenat (Gi-Evelio) 1 tab DAILY PO Last administered on 05/10/17 08:13; Admin Dose 1 TAB; Start 05/02/17 at 09:00 Ranolazine (Ranexa) 500 mg Q12 PO Last administered on 05/10/17 21:37; Admin Dose 500 MG; Start 05/02/17 at 09:00 Zolpidem Tartrate (Ambien) 7.5 mg QHS PRN PO INSOMNIA Last administered on 05/10 21:45; Admin Dose 7.5 MG; Start 05/01/17 at 22:00 Pantoprazole (Protonix Tab) 40 mg DAILY@06 PO Last administered on 05/10/17 06 :37; Admin Dose 40 MG; Start 05/02/17 at 06:00 Nitroglycerin (Nitroglycerin (Sl Tab) 0.4 Mg) 1 tab Q5M PRN SL ANGINA; Start at 22:30 Morphine Sulfate (morphine) 4 mg Q2 PRN IV PAIN Last administered on 05/09/17 23:22; Admin Dose 4 MG; Start 05/01/17 at 22:30 Docusate Sodium (Colace) 100 mg TID PRN PO CONSTIPATION Last administered on 21:46; Admin Dose 100 MG; Start 05/02/17 at 09:00 Miscellaneous Information (*Order Clarification Bulletin) Tiotropium [place] ( Spiriva Respimat... Q8H XX Last administered on 05/07/17 17:29; Admin Dose 1 EA; Start 05/02/17 at 10:00 Nitroglycerin (Nitroglycerin ([place])) 1 spray Q5M PRN SL ANGINA; Start at 10:30 Ropinirole HCl (Requip) 0.5 mg Q4 PRN PO NOTE Last administered on 05/10/17 21 :38; Admin Dose 0.5 MG; Start 05/07/17 at 09:00 Docusate Sodium (Colace) 250 mg BID PRN PO CONSTIPATION; Start 05/07/17 at 08: 30 Bisacodyl (Dulcolax) 10 mg DAILY PRN PO CONSTIPATION Last administered on 21:46; Admin Dose 10 MG; Start 05/07/17 at 08:30 Fluticasone Propionate (Flonase 0.05% Nasal) 1 spray BID NASAL Last administered on 05/10/17 21:37; Admin Dose 1 SPRAY; Start 05/09/17 at 21:00 Bisacodyl (Dulcolax Supp) 10 mg DAILY PRN [place] CONSTIPATION; Start 05/09/17 at 16 :00 POP BOYCE MD May 11, 2017 07:43
[2017-05-11 08:14] LABS: BASOPHILS % 0.6 % (0.0-2.0); EOSINOPHILS # 0.2 10^3/ul (0.0-0.5); EOSINOPHILS % 3.6 % (0.0-7.0); HEMATOCRIT 32.7 % (42.0-52.0); HEMOGLOBIN 9.9 g/dl (14.0-18.0); LYMPHOCYTES % 16.3 % (15.0-51.0); MEAN CORPUSCULAR HEMOGLOBIN 28.9 pg (29.0-33.0); MEAN CORPUSCULAR HGB CONC 30.3 g/dl (32.0-37.0); MEAN CORPUSCULAR VOLUME 95.3 fl (82.0-101.0); MEAN PLATELET VOLUME 9.7 fl (7.4-10.4); MONOCYTE # 0.4 10^3/ul (0.3-0.9); MONOCYTES % 5.8 % (0.0-11.0); NEUTROPHIL # 4.5 10^3/ul (1.6-7.5); NEUTROPHILS % 73.2 % (39.0-77.0); PLATELET COUNT 229 10^3/UL (140-415); RED BLOOD COUNT 3.43 10^6/ul (4.70-6.10); RED CELL DISTRIBUTION WIDTH 18.4 % (11.5-14.5); WHITE BLOOD COUNT 6.2 10^3/ul (4.8-10.8)
[2017-05-11 08:39] LABS: ALBUMIN 3.6 g/dl (3.3-4.9); ALBUMIN/GLOBULIN RATIO 1.16; BILIRUBIN,INDIRECT 0.1 mg/dl (0-1.1); BILIRUBIN,TOTAL 0.1 mg/dl (0.2-1.3); CALCIUM 9.7 mg/dl (8.4-10.2); CREATININE 6.52 mg/dl (0.61-1.24); POTASSIUM 4.3 mmol/L (3.5-5.1); TOTAL PROTEIN 6.7 g/dl (6.1-8.1)
--- NOTE | 2017-05-11 08:41 | RADRPT ---
PROCEDURE: XR Chest. CLINICAL INDICATION: Shortness of breath. TECHNIQUE: Single frontal view. COMPARISON: 05/08/2017. FINDINGS: Mild pulmonary edema is unchanged. There is left basilar atelectasis, unchanged. The lungs are oth erwise clear. The heart is mildly enlarged. There is calcification in the aorta consistent with atherosclerosis. There is a right-sided biventricular pacemaker/internal cardiac defibrillator. There is no pleural effusion. There is no pneumothorax. IMPRESSION: 1. No change from 05/08/2017. RPTAT: QQ .Lazaro Zavaleta MD, MD Date Time Electronically viewed and signed by .Lazaro Zavaleta MD, MD on 05/11/2017 08:40 .R/
[2017-05-11] MEDS: RANOLAZINE (SR) 500 MG TAB PO SCH ×2 (08:44→20:28)
[2017-05-11] MEDS: MULTIVIT/CA CARB/B CMPLX/FA TAB PO SCH (08:44)
[2017-05-11] MEDS: PANTOPRAZOLE (EC) 40 MG TAB PO SCH (08:44)
[2017-05-11] MEDS: LOSARTAN 25 MG TAB PO SCH (08:44)
[2017-05-11] MEDS: SEVELAMER 800 MG TAB PO SCH ×3 (08:44→17:31)
[2017-05-11] MEDS: ALLOPURINOL 100 MG TAB PO SCH (08:45)
[2017-05-11] MEDS: FLUTICASONE 0.05% 16 GM NAS SPRAY NASAL SCH ×2 (08:47→20:27)
[2017-05-11] MEDS: ROPINIROLE 0.25 MG TAB PO PRN ×2 (09:07→20:28)
[2017-05-11] MEDS: ALBUMIN HUMAN 25% 50 ML IV PRN (11:53)
--- NOTE | 2017-05-11 15:43 | CONS ---
Date/Time of Note Date/Time of Note DATE: 05/11/17 TIME: 15:42 Consult Date/Type/Reason Admit Date/Time May 01, 2017 at 21:31 Type of Consultation: Renal Objective Vital Signs Date Time Temp Pulse Resp B/P Pulse Ox O2 Delivery O2 Flow Rate FiO2 05/11/17 15:05 98.2 78 22 116/50 100 05/11/17 14:31 8.0 05/11/17 14:28 Nasal Cannula Intake and Output 05/10/17 05/10/17 05/11/17 15:00 23:00 07:00 Intake Total 450 ml 360 ml Balance 450 ml 360 ml Results/Medications Result Diagram: 05/11/17 0741 05/11/17 0741 Results 24 hrs Laboratory Tests Test 05/11/17 07:41 White Blood Count 6.2 Red Blood Count 3.43 L Hemoglobin 9.9 L Hematocrit 32.7 L Mean Corpuscular Volume 95.3 Mean Corpuscular Hemoglobin 28.9 L Mean Corpuscular Hemoglobin Concent 30.3 L Red Cell Distribution Width 18.4 H Platelet Count 229 # Mean Platelet Volume 9.7 Neutrophils % 73.2 Lymphocytes % 16.3 Monocytes % 5.8 Eosinophils % 3.6 Basophils % 0.6 Nucleated Red Blood Cells % 0.0 Neutrophils # 4.5 Lymphocytes # 1.0 Monocytes # 0.4 Eosinophils # 0.2 Basophils # 0.0 Nucleated Red Blood Cells # 0.0 Sodium Level 139 Potassium Level 4.3 Chloride Level 92 L Carbon Dioxide Level 28 Anion Gap 23 H Blood Urea Nitrogen 51 H Creatinine 6.52 H Glucose Level 75 Calcium Level 9.7 Total Bilirubin 0.1 L Direct Bilirubin 0.00 Indirect Bilirubin 0.1 Aspartate Amino Transf (AST/SGOT) 25 Alanine Aminotransferase (ALT/SGPT) 17 Alkaline Phosphatase 103 Total Protein 6.7 Albumin 3.6 Globulin 3.10 Albumin/Globulin Ratio 1.16 Medications Current Medications Allopurinol (Zyloprim) 100 mg DAILY PO Last administered on 05/11/17 08:45; Admin Dose 100 MG; Start 05/02/17 at 09:00 Alprazolam (Xanax) 0.25 mg QHS PRN PO ANXIETY Last administered on 05/08/17 23 :27; Admin Dose 0.25 MG; Start 05/01/17 at 22:00 Aspirin (Halfprin) 81 mg QHS PO Last administered on 05/10/17 21:37; Admin Dose 81 MG; Start 05/02/17 at 21:00 Atorvastatin Calcium (Lipitor) 40 mg QHS PO Last administered on 05/10/17 21: 38; Admin Dose 40 MG; Start 05/02/17 at 21:00 Clopidogrel Bisulfate (plaVIX) 75 mg QHS PO Last administered on 05/10/17 21: 37; Admin Dose 75 MG; Start 05/02/17 at 21:00 Losartan Potassium (Cozaar) 25 mg DAILY PO ; Start 05/02/17 at 09:00 Multivit/Ca Carb/ B Cmplx/FA/Prenat (Gi-Evelio) 1 tab DAILY PO Last administered on 05/11/17 08:44; Admin Dose 1 TAB; Start 05/02/17 at 09:00 Ranolazine (Ranexa) 500 mg Q12 PO Last administered on 05/11/17 08:44; Admin Dose 500 MG; Start 05/02/17 at 09:00 Zolpidem Tartrate (Ambien) 7.5 mg QHS PRN PO INSOMNIA Last administered on 05/10 21:45; Admin Dose 7.5 MG; Start 05/01/17 at 22:00 Pantoprazole (Protonix Tab) 40 mg DAILY@06 PO Last administered on 05/11/17 08 :44; Admin Dose 40 MG; Start 05/02/17 at 06:00 Nitroglycerin (Nitroglycerin (Sl Tab) 0.4 Mg) 1 tab Q5M PRN SL ANGINA; Start at 22:30 Morphine Sulfate (morphine) 4 mg Q2 PRN IV PAIN Last administered on 05/09/17 23:22; Admin Dose 4 MG; Start 05/01/17 at 22:30 Docusate Sodium (Colace) 100 mg TID PRN PO CONSTIPATION Last administered on 21:46; Admin Dose 100 MG; Start 05/02/17 at 09:00 Miscellaneous Information (*Order Clarification Bulletin) Tiotropium [place] ( Spiriva Respimat... Q8H XX Last administered on 05/11/17 08:45; Admin Dose 1 EA; Start 05/02/17 at 10:00 Nitroglycerin (Nitroglycerin ([place])) 1 spray Q5M PRN SL ANGINA; Start at 10:30 Ropinirole HCl (Requip) 0.5 mg Q4 PRN PO NOTE Last administered on 05/11/17 09 :07; Admin Dose 0.5 MG; Start 05/07/17 at 09:00 Docusate Sodium (Colace) 250 mg BID PRN PO CONSTIPATION; Start 05/07/17 at 08: 30 Bisacodyl (Dulcolax) 10 mg DAILY PRN PO CONSTIPATION Last administered on 21:46; Admin Dose 10 MG; Start 05/07/17 at 08:30 Fluticasone Propionate (Flonase 0.05% Nasal) 1 spray BID NASAL Last administered on 05/10/17 21:37; Admin Dose 1 SPRAY; Start 05/09/17 at 21:00 Bisacodyl (Dulcolax Supp) 10 mg DAILY PRN [place] CONSTIPATION; Start 05/09/17 at 16 :00 Assessment/Plan Chief Complaint/Hosp Course Patient comfortable this morning appears frustrated. Continues nasal cannula at 5 L Pending hemodialysis On examination GENERAL: Elderly gentleman comfortable at rest VITAL SIGNS: per chart NECK: Supple. No JVD or lymphadenopathy. CARDIAC EXAM: S1, S2. 1/6 systolic ejection murmur CHEST: Morbidly obese diminished air entry both lung wright ABDOMEN: Soft, nontender. No guarding or rebound. EXTREMITIES: No cyanosis, clubbing or edema +2 NEUROLOGIC: Generalized weakness. No focal deficits. Labs White count 6.2 hemoglobin 9.9 platelets 229 BUN 61 creatinine 6.52 Chest x-ray FINDINGS: Mild pulmonary edema is unchanged. There is left basilar atelectasis, unchanged. The lungs are otherwise clear. The heart is mildly enlarged. There is calcification in the aorta consistent with atherosclerosis. There is a right-sided biventricular pacemaker/internal cardiac defibrillator. There is no pleural effusion. There is no pneumothorax. Assessment 1. Dyspnea likely secondary to pulmonary edema however with volume removal still remains intermittently hypoxemic. 2. Diabetes mellitus 3. End-stage renal failure on hemodialysis 4. History of chronic anemia secondary to end-stage renal failure. 5. Recent biventricular pacemaker placement 6. Anemia likely secondary to chronic kidney disease Plan 1. Chest CT with contrast to evaluate for pulmonary embolism 2. Continue with dialysis and volume removal 3. Outpatient pulmonary function testing 4. Cardiac recommendations 5. Encourage out of bed. 6. Agree with acute rehab evaluation Problems: MUKUND URBANO MD, [facility] May 11, 2017 15:43
[2017-05-11] MEDS: ATORVASTATIN 40 MG TAB PO SCH (20:27)
[2017-05-11] MEDS: DOCUSATE SODIUM 100 MG CAP PO PRN (20:28)
[2017-05-11] MEDS: CLOPIDOGREL 75 MG TAB PO SCH (20:28)
[2017-05-11] MEDS: ASPIRIN (EC) 81 MG TAB PO SCH (20:28)
[2017-05-11] MEDS: ZOLPIDEM 5 MG TAB PO PRN (20:28)
[2017-05-12] VITALS (17 sets, daily range): BP systolic 104–134; BP diastolic 38–74; PULSE 80–91; RESP 15–20
[2017-05-12] MEDS: TIOTROPIUM BROMIDE XX SCH ×3 (01:55→17:46)
[2017-05-12] MEDS: [UNRECOGNIZED DRUG - OTHER] XX SCH ×3 (01:55→17:46)
[2017-05-12] MEDS: ALBUTEROL/IPRATROPIUM (NEB) 3 ML AMP HHN SCH ×4 (02:00→20:37)
[2017-05-12] MEDS: PANTOPRAZOLE (EC) 40 MG TAB PO SCH (06:47)
--- NOTE | 2017-05-12 07:54 | CONS ---
Date/Time of Note Date/Time of Note DATE: 05/12/17 TIME: 07:51 Assessment/Plan Assessment/Plan Problems: (1) Debility Comment: ARU refused him due to o2 requirements... will try extra DUF and see (2) Anemia Status: Chronic Comment: stable post transfusion last week (3) ESRD (end stage renal disease) on dialysis Status: Chronic Comment: for DUF x 2hrs today... routine HD on Thu (4) CHF (congestive heart failure) Comment: not clinically...CXR not look too overloaded to me... Dr Pina ordered a chest CTA... will try DUF today to see if xs fluid removal improves things Consultation Date/Type/Reason Admit Date/Time May 01, 2017 at 21:31 Type of Consultation: Renal 24 HR Interval Summary Free Text/Dictation depressed... no cp or sob.. did ambulate again yesterday Exam/Review of Systems Vital Signs Vitals Vital Signs Date Time Temp Pulse Resp B/P Pulse Ox O2 Delivery O2 Flow Rate FiO2 05/12/17 07:23 98.1 83 18 124/53 100 05/12/17 02:38 7.0 05/12/17 02:38 Nasal Cannula Intake and Output 05/11/17 05/11/17 05/12/17 15:00 23:00 07:00 Intake Total 600 ml 620 ml Output Total 2900 ml Balance -2300 ml 620 ml Exam Constitutional: alert, oriented Head: normocephalic Neck: supple Respiratory: clear to auscultation Cardiovascular: regular rate and rhythm Gastrointestinal: soft Extremities: normal pulses (fxn AVF in LUE) Results Result Diagram: 05/11/17 0741 05/11/17 0741 Medications Medications Current Medications Allopurinol (Zyloprim) 100 mg DAILY PO Last administered on 05/11/17 08:45; Admin Dose 100 MG; Start 05/02/17 at 09:00 Alprazolam (Xanax) 0.25 mg QHS PRN PO ANXIETY Last administered on 05/08/17 23 :27; Admin Dose 0.25 MG; Start 05/01/17 at 22:00 Aspirin (Halfprin) 81 mg QHS PO Last administered on 05/11/17 20:28; Admin Dose 81 MG; Start 05/02/17 at 21:00 Atorvastatin Calcium (Lipitor) 40 mg QHS PO Last administered on 05/11/17 20: 27; Admin Dose 40 MG; Start 05/02/17 at 21:00 Clopidogrel Bisulfate (plaVIX) 75 mg QHS PO Last administered on 05/11/17 20: 28; Admin Dose 75 MG; Start 05/02/17 at 21:00 Losartan Potassium (Cozaar) 25 mg DAILY PO ; Start 05/02/17 at 09:00 Multivit/Ca Carb/ B Cmplx/FA/Prenat (Gi-Evelio) 1 tab DAILY PO Last administered on 05/11/17 08:44; Admin Dose 1 TAB; Start 05/02/17 at 09:00 Ranolazine (Ranexa) 500 mg Q12 PO Last administered on 05/11/17 20:28; Admin Dose 500 MG; Start 05/02/17 at 09:00 Zolpidem Tartrate (Ambien) 7.5 mg QHS PRN PO INSOMNIA Last administered on 05/11 20:28; Admin Dose 7.5 MG; Start 05/01/17 at 22:00 Pantoprazole (Protonix Tab) 40 mg DAILY@06 PO Last administered on 05/12/17 06 :47; Admin Dose 40 MG; Start 05/02/17 at 06:00 Nitroglycerin (Nitroglycerin (Sl Tab) 0.4 Mg) 1 tab Q5M PRN SL ANGINA; Start at 22:30 Morphine Sulfate (morphine) 4 mg Q2 PRN IV PAIN Last administered on 05/09/17 23:22; Admin Dose 4 MG; Start 05/01/17 at 22:30 Docusate Sodium (Colace) 100 mg TID PRN PO CONSTIPATION Last administered on 20:28; Admin Dose 100 MG; Start 05/02/17 at 09:00 Miscellaneous Information (*Order Clarification Bulletin) Tiotropium [place] ( Spiriva Respimat... Q8H XX Last administered on 05/11/17 17:31; Admin Dose 1 EA; Start 05/02/17 at 10:00 Nitroglycerin (Nitroglycerin ([place])) 1 spray Q5M PRN SL ANGINA; Start at 10:30 Ropinirole HCl (Requip) 0.5 mg Q4 PRN PO NOTE Last administered on 05/11/17 20 :28; Admin Dose 0.5 MG; Start 05/07/17 at 09:00 Docusate Sodium (Colace) 250 mg BID PRN PO CONSTIPATION; Start 05/07/17 at 08: 30 Bisacodyl (Dulcolax) 10 mg DAILY PRN PO CONSTIPATION Last administered on 21:46; Admin Dose 10 MG; Start 05/07/17 at 08:30 Fluticasone Propionate (Flonase 0.05% Nasal) 1 spray BID NASAL Last administered on 05/11/17 20:27; Admin Dose 1 SPRAY; Start 05/09/17 at 21:00 Bisacodyl (Dulcolax Supp) 10 mg DAILY PRN [place] CONSTIPATION; Start 05/09/17 at 16 :00 POP BOYCE MD May 12, 2017 07:54
[2017-05-12] MEDS: SEVELAMER 800 MG TAB PO SCH ×3 (08:29→17:55)
[2017-05-12] MEDS: ROPINIROLE 0.25 MG TAB PO PRN ×2 (08:30→20:58)
[2017-05-12] MEDS: FLUTICASONE 0.05% 16 GM NAS SPRAY NASAL SCH ×2 (08:30→20:58)
[2017-05-12] MEDS: RANOLAZINE (SR) 500 MG TAB PO SCH ×2 (08:31→20:58)
[2017-05-12] MEDS: MULTIVIT/CA CARB/B CMPLX/FA TAB PO SCH (08:31)
[2017-05-12] MEDS: ALLOPURINOL 100 MG TAB PO SCH (08:31)
[2017-05-12] MEDS: LOSARTAN 25 MG TAB PO SCH (08:31)
[2017-05-12] MEDS: CLOPIDOGREL 75 MG TAB PO SCH (20:58)
[2017-05-12] MEDS: ZOLPIDEM 5 MG TAB PO PRN (20:58)
[2017-05-12] MEDS: ATORVASTATIN 40 MG TAB PO SCH (20:58)
[2017-05-12] MEDS: DOCUSATE SODIUM 100 MG CAP PO PRN (20:58)
[2017-05-12] MEDS: ASPIRIN (EC) 81 MG TAB PO SCH (20:58)
--- NOTE | 2017-05-12 23:57 | CONS ---
Date/Time of Note Date/Time of Note DATE: 05/12/17 TIME: 23:54 Assessment/Plan Assessment/Plan Chief Complaint/Hosp Course - chest pain- trop 0.28 likely down trend from admit with NSTEMI 1.5 level.. 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 cont medical therapy with statin asa/plavix and tranfusion for anemia. - ICM with LVEF 30-35% s/p BiV ICD. - acute on chronic systolic heart failure- recurrent admissions, no revasc targets. unable to tolerate much medication due to lower bp - LBBB s/p biV ICD - CAD s/p extensive PCI hx including LM, prox/mid LAD, prox/mid/distal RCA. no revasc targets on recent LHC. - ESRD on iHD - Anemia- severe, no e/o gi blood loss. responded to transfusion with 2uprbc Recommendations - cont asa/plavix - cont statin - ranexa - pt refusing long acting nitro given previous dizziness, states ok prn sln spray - fluid mgmt with iHD, low na diet - bp stable, lower previously difficult to titrate meds - ct chest pending per pulmonary given sob despite dialysis fluid removal/neg balance - recheck dig level consider 0.0625 q 48 dosing given ESRD Problems: Consultation Date/Type/Reason Admit Date/Time May 01, 2017 at 21:31 Type of Consultation: cardiology 24 HR Interval Summary Free Text/Dictation no acute events. able to ambulate in hallway with PT but has sob and requiring high flow o2 after he states. no cp/sob at rest. Exam/Review of Systems Vital Signs Vitals Vital Signs Date Time Temp Pulse Resp B/P Pulse Ox O2 Delivery O2 Flow Rate FiO2 05/12/17 20:41 89 18 99 Nasal Cannula 7.0 05/12/17 20:00 98.5 115/52 Intake and Output 05/11/17 05/11/17 05/12/17 15:00 23:00 07:00 Intake Total 600 ml 620 ml Output Total 2900 ml Balance -2300 ml 620 ml Results Result Diagram: 05/11/17 0741 05/11/17 0741 Results 24 hrs Laboratory Tests Test 05/12/17 10:21 Digoxin Level 0.7 L Medications Medications Current Medications Allopurinol (Zyloprim) 100 mg DAILY PO Last administered on 05/11/17 08:45; Admin Dose 100 MG; Start 05/02/17 at 09:00 Alprazolam (Xanax) 0.25 mg QHS PRN PO ANXIETY Last administered on 05/08/17 23 :27; Admin Dose 0.25 MG; Start 05/01/17 at 22:00 Aspirin (Halfprin) 81 mg QHS PO Last administered on 05/12/17 20:58; Admin Dose 81 MG; Start 05/02/17 at 21:00 Atorvastatin Calcium (Lipitor) 40 mg QHS PO Last administered on 05/12/17 20: 58; Admin Dose 40 MG; Start 05/02/17 at 21:00 Clopidogrel Bisulfate (plaVIX) 75 mg QHS PO Last administered on 05/12/17 20: 58; Admin Dose 75 MG; Start 05/02/17 at 21:00 Losartan Potassium (Cozaar) 25 mg DAILY PO ; Start 05/02/17 at 09:00 Multivit/Ca Carb/ B Cmplx/FA/Prenat (Gi-Evelio) 1 tab DAILY PO Last administered on 05/11/17 08:44; Admin Dose 1 TAB; Start 05/02/17 at 09:00 Ranolazine (Ranexa) 500 mg Q12 PO Last administered on 05/12/17 20:58; Admin Dose 500 MG; Start 05/02/17 at 09:00 Zolpidem Tartrate (Ambien) 7.5 mg QHS PRN PO INSOMNIA Last administered on 05/12 20:58; Admin Dose 7.5 MG; Start 05/01/17 at 22:00 Pantoprazole (Protonix Tab) 40 mg DAILY@06 PO Last administered on 05/12/17 06 :47; Admin Dose 40 MG; Start 05/02/17 at 06:00 Nitroglycerin (Nitroglycerin (Sl Tab) 0.4 Mg) 1 tab Q5M PRN SL ANGINA; Start at 22:30 Morphine Sulfate (morphine) 4 mg Q2 PRN IV PAIN Last administered on 05/09/17 23:22; Admin Dose 4 MG; Start 05/01/17 at 22:30 Docusate Sodium (Colace) 100 mg TID PRN PO CONSTIPATION Last administered on 20:58; Admin Dose 100 MG; Start 05/02/17 at 09:00 Miscellaneous Information (*Order Clarification Bulletin) Tiotropium [place] ( Spiriva Respimat... Q8H XX Last administered on 05/12/17 17:46; Admin Dose 1 EA; Start 05/02/17 at 10:00 Nitroglycerin (Nitroglycerin ([place])) 1 spray Q5M PRN SL ANGINA; Start at 10:30 Ropinirole HCl (Requip) 0.5 mg Q4 PRN PO NOTE Last administered on 05/12/17 20 :58; Admin Dose 0.5 MG; Start 05/07/17 at 09:00 Docusate Sodium (Colace) 250 mg BID PRN PO CONSTIPATION; Start 05/07/17 at 08: 30 Bisacodyl (Dulcolax) 10 mg DAILY PRN PO CONSTIPATION Last administered on 21:46; Admin Dose 10 MG; Start 05/07/17 at 08:30 Fluticasone Propionate (Flonase 0.05% Nasal) 1 spray BID NASAL Last administered on 05/12/17 20:58; Admin Dose 1 SPRAY; Start 05/09/17 at 21:00 Bisacodyl (Dulcolax Supp) 10 mg DAILY PRN [place] CONSTIPATION; Start 05/09/17 at 16 :00 SUSANA VASQUEZ May 12, 2017 23:57
[2017-05-13] VITALS (16 sets, daily range): BP systolic 94–140; BP diastolic 35–65; PULSE 81–90; RESP 18–20
[2017-05-13] MEDS: TIOTROPIUM BROMIDE XX SCH ×3 (02:00→17:36)
[2017-05-13] MEDS: [UNRECOGNIZED DRUG - OTHER] XX SCH ×3 (02:00→17:36)
[2017-05-13] MEDS: ALBUTEROL/IPRATROPIUM (NEB) 3 ML AMP HHN SCH ×4 (02:42→19:37)
[2017-05-13] MEDS: PANTOPRAZOLE (EC) 40 MG TAB PO SCH (06:50)
--- NOTE | 2017-05-13 08:15 | PN ---
Date/Time of Note Date/Time of Note DATE: 05/13/17 TIME: 08:09 Assessment/Plan VTE Prophylaxis VTE Prophylaxis Intervention: other Lines/Catheters IV [facility] [place] Urinary Cath still in place: No Assessment/Plan Assessment/Plan 1. Persistent SOB despite aggressive UF, CT pul angio scheduled today and to have HD, NIVVS was neg last admit 2. ? Pericardial rub, will get follow up echocardiogram 3. Anemia is stable 4. CKD, dialysis dependent. Subjective 24 Hr Interval Summary Constitutional: other (moderate fatigue persists) Respiratory: shortness of breath (is unchanged after HD) Cardiovascular: No chest pain Gastrointestinal: no complaints Genitourinary: no complaints Exam/Review of Systems Vital Signs Vitals Vital Signs Date Time Temp Pulse Resp B/P Pulse Ox O2 Delivery O2 Flow Rate FiO2 05/13/17 07:21 98.0 85 18 133/65 96 05/13/17 02:35 Nasal Cannula 7.0 Intake and Output 05/12/17 05/12/17 05/13/17 15:00 23:00 07:00 Intake Total 500 ml 750 ml 300 ml Output Total 2500 ml Balance -2000 ml 750 ml 300 ml Exam Neck: No jvd Respiratory: diminished breath sounds Cardiovascular: regular rate and rhythm (? rub) Gastrointestinal: soft Extremities: No edema (and no calf tend) Results Result Diagram: 05/11/1774005/11/17 0741 Results 24 hrs Laboratory Tests Test 05/12/17 10:21 Digoxin Level 0.7 L Medications Medications Current Medications Allopurinol (Zyloprim) 100 mg DAILY PO Last administered on 05/11/17 08:45; Admin Dose 100 MG; Start 05/02/17 at 09:00 Alprazolam (Xanax) 0.25 mg QHS PRN PO ANXIETY Last administered on 05/08/17 23 :27; Admin Dose 0.25 MG; Start 05/01/17 at 22:00 Aspirin (Halfprin) 81 mg QHS PO Last administered on 05/12/17 20:58; Admin Dose 81 MG; Start 05/02/17 at 21:00 Atorvastatin Calcium (Lipitor) 40 mg QHS PO Last administered on 05/12/17 20: 58; Admin Dose 40 MG; Start 05/02/17 at 21:00 Clopidogrel Bisulfate (plaVIX) 75 mg QHS PO Last administered on 05/12/17 20: 58; Admin Dose 75 MG; Start 05/02/17 at 21:00 Losartan Potassium (Cozaar) 25 mg DAILY PO ; Start 05/02/17 at 09:00 Multivit/Ca Carb/ B Cmplx/FA/Prenat (Gi-Evelio) 1 tab DAILY PO Last administered on 05/11/17 08:44; Admin Dose 1 TAB; Start 05/02/17 at 09:00 Ranolazine (Ranexa) 500 mg Q12 PO Last administered on 05/12/17 20:58; Admin Dose 500 MG; Start 05/02/17 at 09:00 Zolpidem Tartrate (Ambien) 7.5 mg QHS PRN PO INSOMNIA Last administered on 05/12 20:58; Admin Dose 7.5 MG; Start 05/01/17 at 22:00 Pantoprazole (Protonix Tab) 40 mg DAILY@06 PO Last administered on 05/13/17 06 :50; Admin Dose 40 MG; Start 05/02/17 at 06:00 Nitroglycerin (Nitroglycerin (Sl Tab) 0.4 Mg) 1 tab Q5M PRN SL ANGINA; Start at 22:30 Morphine Sulfate (morphine) 4 mg Q2 PRN IV PAIN Last administered on 05/09/17 23:22; Admin Dose 4 MG; Start 05/01/17 at 22:30 Docusate Sodium (Colace) 100 mg TID PRN PO CONSTIPATION Last administered on 20:58; Admin Dose 100 MG; Start 05/02/17 at 09:00 Miscellaneous Information (*Order Clarification Bulletin) Tiotropium [place] ( Spiriva Respimat... Q8H XX Last administered on 05/12/17 17:46; Admin Dose 1 EA; Start 05/02/17 at 10:00 Nitroglycerin (Nitroglycerin ([place])) 1 spray Q5M PRN SL ANGINA; Start at 10:30 Ropinirole HCl (Requip) 0.5 mg Q4 PRN PO NOTE Last administered on 05/12/17 20 :58; Admin Dose 0.5 MG; Start 05/07/17 at 09:00 Docusate Sodium (Colace) 250 mg BID PRN PO CONSTIPATION; Start 05/07/17 at 08: 30 Bisacodyl (Dulcolax) 10 mg DAILY PRN PO CONSTIPATION Last administered on 21:46; Admin Dose 10 MG; Start 05/07/17 at 08:30 Fluticasone Propionate (Flonase 0.05% Nasal) 1 spray BID NASAL Last administered on 05/12/17 20:58; Admin Dose 1 SPRAY; Start 05/09/17 at 21:00 Bisacodyl (Dulcolax Supp) 10 mg DAILY PRN [place] CONSTIPATION; Start 05/09/17 at 16 :00 ALONZO SERRA MD May 13, 2017 08:15
[2017-05-13] MEDS: RANOLAZINE (SR) 500 MG TAB PO SCH ×2 (08:35→21:40)
[2017-05-13] MEDS: MULTIVIT/CA CARB/B CMPLX/FA TAB PO SCH (08:35)
[2017-05-13] MEDS: DOCUSATE SODIUM 100 MG CAP PO PRN (08:35)
[2017-05-13] MEDS: SEVELAMER 800 MG TAB PO SCH ×3 (08:35→17:34)
[2017-05-13] MEDS: ROPINIROLE 0.25 MG TAB PO PRN ×3 (08:35→21:41)
[2017-05-13] MEDS: ALLOPURINOL 100 MG TAB PO SCH (08:35)
[2017-05-13] MEDS: LOSARTAN 25 MG TAB PO SCH (08:36)
[2017-05-13] MEDS: FLUTICASONE 0.05% 16 GM NAS SPRAY NASAL SCH ×2 (08:36→21:42)
--- NOTE | 2017-05-13 15:22 | CONS ---
Date/Time of Note Date/Time of Note DATE: 05/13/17 TIME: : Consult Date/Type/Reason Admit Date/Time May 01, 2017 at 21:31 Type of Consultation: Pulmonary Subjective Patient refused prior CT scan wanted it done prior to hemodialysis. Objective Vital Signs Date Time Temp Pulse Resp B/P Pulse Ox O2 Delivery O2 Flow Rate FiO2 05/13/17 11:10 98.0 88 20 122/46 100 05/13/17 10:34 7.0 05/13/17 10:34 Nasal Cannula Intake and Output 05/12/17 05/12/17 05/13/17 14:59 22:59 06:59 Intake Total 500 ml 750 ml 300 ml Output Total 2500 ml Balance -2000 ml 750 ml 300 ml Results/Medications Result Diagram: 05/11/1774005/11/17740 Medications Current Medications Allopurinol (Zyloprim) 100 mg DAILY PO Last administered on 05/13/17 08:35; Admin Dose 100 MG; Start 05/02/17 at 09:00 Alprazolam (Xanax) 0.25 mg QHS PRN PO ANXIETY Last administered on 05/08/17 23 :27; Admin Dose 0.25 MG; Start 05/01/17 at 22:00 Aspirin (Halfprin) 81 mg QHS PO Last administered on 05/12/17 20:58; Admin Dose 81 MG; Start 05/02/17 at 21:00 Atorvastatin Calcium (Lipitor) 40 mg QHS PO Last administered on 05/12/17 20: 58; Admin Dose 40 MG; Start 05/02/17 at 21:00 Clopidogrel Bisulfate (plaVIX) 75 mg QHS PO Last administered on 05/12/17 20: 58; Admin Dose 75 MG; Start 05/02/17 at 21:00 Losartan Potassium (Cozaar) 25 mg DAILY PO ; Start 05/02/17 at 09:00 Multivit/Ca Carb/ B Cmplx/FA/Prenat (Gi-Evelio) 1 tab DAILY PO Last administered on 05/13/17 08:35; Admin Dose 1 TAB; Start 05/02/17 at 09:00 Ranolazine (Ranexa) 500 mg Q12 PO Last administered on 05/13/17 08:35; Admin Dose 500 MG; Start 05/02/17 at 09:00 Zolpidem Tartrate (Ambien) 7.5 mg QHS PRN PO INSOMNIA Last administered on 05/12 20:58; Admin Dose 7.5 MG; Start 05/01/17 at 22:00 Pantoprazole (Protonix Tab) 40 mg DAILY@06 PO Last administered on 05/13/17 06 :50; Admin Dose 40 MG; Start 05/02/17 at 06:00 Nitroglycerin (Nitroglycerin (Sl Tab) 0.4 Mg) 1 tab Q5M PRN SL ANGINA; Start at 22:30 Morphine Sulfate (morphine) 4 mg Q2 PRN IV PAIN Last administered on 05/09/17 23:22; Admin Dose 4 MG; Start 05/01/17 at 22:30 Docusate Sodium (Colace) 100 mg TID PRN PO CONSTIPATION Last administered on 08:35; Admin Dose 100 MG; Start 05/02/17 at 09:00 Miscellaneous Information (*Order Clarification Bulletin) Tiotropium [place] ( Spiriva Respimat... Q8H XX Last administered on 05/13/17 10:00; Admin Dose 1 EA; Start 05/02/17 at 10:00 Nitroglycerin (Nitroglycerin ([place])) 1 spray Q5M PRN SL ANGINA; Start at 10:30 Ropinirole HCl (Requip) 0.5 mg Q4 PRN PO NOTE Last administered on 05/13/17 08 :35; Admin Dose 0.5 MG; Start 05/07/17 at 09:00 Docusate Sodium (Colace) 250 mg BID PRN PO CONSTIPATION; Start 05/07/17 at 08: 30 Bisacodyl (Dulcolax) 10 mg DAILY PRN PO CONSTIPATION Last administered on 21:46; Admin Dose 10 MG; Start 05/07/17 at 08:30 Fluticasone Propionate (Flonase 0.05% Nasal) 1 spray BID NASAL Last administered on 05/13/17 08:36; Admin Dose 1 SPRAY; Start 05/09/17 at 21:00 Bisacodyl (Dulcolax Supp) 10 mg DAILY PRN [place] CONSTIPATION; Start 05/09/17 at 16 :00 Assessment/Plan Chief Complaint/Hosp Course Patient comfortable this morning appears frustrated. Continues nasal cannula at 7 L Pending hemodialysis On examination GENERAL: Elderly gentleman comfortable at rest VITAL SIGNS: per chart NECK: Supple. No JVD or lymphadenopathy. CARDIAC EXAM: S1, S2. 1/6 systolic ejection murmur CHEST: Morbidly obese diminished air entry both lung wright ABDOMEN: Soft, nontender. No guarding or rebound. EXTREMITIES: No cyanosis, clubbing or edema +2 NEUROLOGIC: Generalized weakness. No focal deficits. Labs White count 6.2 hemoglobin 9.9 platelets 229 BUN 61 creatinine 6.52 Chest x-ray FINDINGS: Mild pulmonary edema is unchanged. There is left basilar atelectasis, unchanged. The lungs are otherwise clear. The heart is mildly enlarged. There is calcification in the aorta consistent with atherosclerosis. There is a right-sided biventricular pacemaker/internal cardiac defibrillator. There is no pleural effusion. There is no pneumothorax. Assessment 1. Dyspnea likely secondary to pulmonary edema however with volume removal still remains intermittently hypoxemic. 2. Diabetes mellitus 3. End-stage renal failure on hemodialysis 4. History of chronic anemia secondary to end-stage renal failure. 5. Recent biventricular pacemaker placement 6. Anemia likely secondary to chronic kidney disease Plan 1. Chest CT with contrast unable to perform as no iv access. LE dopplers requested. 2. Continue with dialysis and volume removal 3. Outpatient pulmonary function testing 4. Cardiac recommendations 5. Encourage out of bed. 6. Agree with acute rehab evaluation when patient stable. Problems: MUKUND URBANO MD, [facility] May 13, 2017 15:22
[2017-05-13] MEDS: ALBUMIN HUMAN 25% 50 ML IV PRN (15:29)
--- NOTE | 2017-05-13 17:37 | RADRPT ---
PROCEDURE: US bilateral lower extremity veins. CLINICAL INDICATION: Bilateral leg pain and swelling. TECHNIQUE: Multiple longitudinal and transverse images of the bilateral lower extremity veins were obtained with encarnacion scale and color Doppler imaging. The common femoral vein, femoral vein, and popl iteal vein were evaluated. 2D grayscale measurements with compression sonography, color Doppler, and pulsed Doppler with augmentation. COMPARISON: No prior studies are available for comparison. FINDINGS: The bilateral common femoral, femoral and popliteal veins are normally compressible throughout. Col or flow demonstrates normal filling of the vessels. Normal waveforms are visualized and there is no rmal response to augmentation. IMPRESSION: 1. No evidence of deep vein thrombosis involving either lower extremity. RPTAT: QQ .Lazaro Zavaleta MD, MD Date Time Electronically viewed and signed by .Lazaro Zavaleta MD, on 05/13/2017 17:36 .R/
[2017-05-13] MEDS: CLOPIDOGREL 75 MG TAB PO SCH (21:40)
[2017-05-13] MEDS: ASPIRIN (EC) 81 MG TAB PO SCH (21:40)
[2017-05-13] MEDS: ATORVASTATIN 40 MG TAB PO SCH (21:40)
[2017-05-13] MEDS: ZOLPIDEM 5 MG TAB PO PRN (21:41)
[2017-05-14] VITALS (9 sets, daily range): BP systolic 93–115; BP diastolic 30–66; PULSE 76–99; RESP 18–20
[2017-05-14] MEDS: ALBUTEROL/IPRATROPIUM (NEB) 3 ML AMP HHN SCH ×3 (01:21→14:21)
[2017-05-14] MEDS: TIOTROPIUM BROMIDE XX SCH ×2 (02:00→10:00)
[2017-05-14] MEDS: [UNRECOGNIZED DRUG - OTHER] XX SCH ×2 (02:00→10:00)
[2017-05-14] MEDS: PANTOPRAZOLE (EC) 40 MG TAB PO SCH (06:14)
[2017-05-14] MEDS ORDERED: DOCU-216 PO (08:25)
[2017-05-14] MEDS ORDERED: ROPI0.5T2 PO (08:25)
[2017-05-14] MEDS ORDERED: DOCU250C58 PO (08:25)
[2017-05-14] MEDS ORDERED: IPRA3AMP HHN (08:25)
[2017-05-14] MEDS ORDERED: BISA5TAB6 PO (08:25)
[2017-05-14] MEDS: MULTIVIT/CA CARB/B CMPLX/FA TAB PO SCH (08:41)
[2017-05-14] MEDS: SEVELAMER 800 MG TAB PO SCH ×2 (08:41→11:57)
[2017-05-14] MEDS: DOCUSATE SODIUM 100 MG CAP PO PRN (08:41)
[2017-05-14] MEDS: ROPINIROLE 0.25 MG TAB PO PRN ×2 (08:41→11:57)
[2017-05-14] MEDS: RANOLAZINE (SR) 500 MG TAB PO SCH (08:41)
[2017-05-14] MEDS: ALLOPURINOL 100 MG TAB PO SCH (08:41)
[2017-05-14] MEDS: LOSARTAN 25 MG TAB PO SCH (08:42)
[2017-05-14] MEDS: FLUTICASONE 0.05% 16 GM NAS SPRAY NASAL SCH (08:42)
[2017-05-14 11:13] LABS: BASOPHILS % 0.5 % (0.0-2.0); EOSINOPHILS # 0.2 10^3/ul (0.0-0.5); EOSINOPHILS % 2.9 % (0.0-7.0); HEMOGLOBIN 9.7 g/dl (14.0-18.0); LYMPHOCYTES # 0.9 10^3/ul (0.8-2.9); LYMPHOCYTES % 16.4 % (15.0-51.0); MEAN CORPUSCULAR HEMOGLOBIN 29.2 pg (29.0-33.0); MEAN CORPUSCULAR HGB CONC 31.3 g/dl (32.0-37.0); MEAN CORPUSCULAR VOLUME 93.4 fl (82.0-101.0); MEAN PLATELET VOLUME 9.2 fl (7.4-10.4); MONOCYTE # 0.3 10^3/ul (0.3-0.9); MONOCYTES % 5.9 % (0.0-11.0); NEUTROPHIL # 4.1 10^3/ul (1.6-7.5); NEUTROPHILS % 74.1 % (39.0-77.0); PLATELET COUNT 229 10^3/UL (140-415); RED BLOOD COUNT 3.32 10^6/ul (4.70-6.10); WHITE BLOOD COUNT 5.6 10^3/ul (4.8-10.8)
--- NOTE | 2017-05-14 11:22 | CONS ---
Date/Time of Note Date/Time of Note DATE: 05/14/17 TIME: 11:20 Consult Date/Type/Reason Admit Date/Time May 01, 2017 at 21:31 Type of Consultation: Pulmonary Subjective CT angiogram could not be performed as patient had no IV access. Would require PICC line placement. Objective Vital Signs Date Time Temp Pulse Resp B/P Pulse Ox O2 Delivery O2 Flow Rate FiO2 05/14/17 08:47 85 20 97 21 05/14/17 07:35 Nasal Cannula 7.0 05/14/17 07:08 97.8 115/66 Intake and Output 05/13/17 05/13/17 05/14/17 15:00 23:00 07:00 Intake Total 300 ml 200 ml Output Total 2300 ml Balance -2000 ml 200 ml Results/Medications Result Diagram: 05/14/17 1041 05/11/17 0741 Results 24 hrs Laboratory Tests Test 05/14/17 10:41 White Blood Count 5.6 Red Blood Count 3.32 L Hemoglobin 9.7 L Hematocrit 31.0 L Mean Corpuscular Volume 93.4 Mean Corpuscular Hemoglobin 29.2 Mean Corpuscular Hemoglobin Concent 31.3 L Red Cell Distribution Width 18.0 H Platelet Count 229 Mean Platelet Volume 9.2 Neutrophils % 74.1 Lymphocytes % 16.4 Monocytes % 5.9 Eosinophils % 2.9 Basophils % 0.5 Nucleated Red Blood Cells % 0.0 Neutrophils # 4.1 Lymphocytes # 0.9 Monocytes # 0.3 Eosinophils # 0.2 Basophils # 0.0 Nucleated Red Blood Cells # 0.0 Medications Current Medications Allopurinol (Zyloprim) 100 mg DAILY PO Last administered on 05/14/17 08:41; Admin Dose 100 MG; Start 05/02/17 at 09:00 Alprazolam (Xanax) 0.25 mg QHS PRN PO ANXIETY Last administered on 05/08/17 23 :27; Admin Dose 0.25 MG; Start 05/01/17 at 22:00 Aspirin (Halfprin) 81 mg QHS PO Last administered on 05/13/17 21:40; Admin Dose 81 MG; Start 05/02/17 at 21:00 Atorvastatin Calcium (Lipitor) 40 mg QHS PO Last administered on 05/13/17 21: 40; Admin Dose 40 MG; Start 05/02/17 at 21:00 Clopidogrel Bisulfate (plaVIX) 75 mg QHS PO Last administered on 05/13/17 21: 40; Admin Dose 75 MG; Start 05/02/17 at 21:00 Losartan Potassium (Cozaar) 25 mg DAILY PO ; Start 05/02/17 at 09:00 Multivit/Ca Carb/ B Cmplx/FA/Prenat (Gi-Evelio) 1 tab DAILY PO Last administered on 05/14/17 08:41; Admin Dose 1 TAB; Start 05/02/17 at 09:00 Ranolazine (Ranexa) 500 mg Q12 PO Last administered on 05/14/17 08:41; Admin Dose 500 MG; Start 05/02/17 at 09:00 Zolpidem Tartrate (Ambien) 7.5 mg QHS PRN PO INSOMNIA Last administered on 05/13 21:41; Admin Dose 7.5 MG; Start 05/01/17 at 22:00 Pantoprazole (Protonix Tab) 40 mg DAILY@06 PO Last administered on 05/14/17 06 :14; Admin Dose 40 MG; Start 05/02/17 at 06:00 Nitroglycerin (Nitroglycerin (Sl Tab) 0.4 Mg) 1 tab Q5M PRN SL ANGINA; Start at 22:30 Morphine Sulfate (morphine) 4 mg Q2 PRN IV PAIN Last administered on 05/09/17 23:22; Admin Dose 4 MG; Start 05/01/17 at 22:30 Docusate Sodium (Colace) 100 mg TID PRN PO CONSTIPATION Last administered on 08:41; Admin Dose 100 MG; Start 05/02/17 at 09:00 Miscellaneous Information (*Order Clarification Bulletin) Tiotropium [place] ( Spiriva Respimat... Q8H XX Last administered on 05/13/17 17:36; Admin Dose 1 EA; Start 05/02/17 at 10:00 Nitroglycerin (Nitroglycerin ([place])) 1 spray Q5M PRN SL ANGINA; Start at 10:30 Ropinirole HCl (Requip) 0.5 mg Q4 PRN PO NOTE Last administered on 05/14/17 08 :41; Admin Dose 0.5 MG; Start 05/07/17 at 09:00 Docusate Sodium (Colace) 250 mg BID PRN PO CONSTIPATION Last administered on 21:41; Admin Dose 250 MG; Start 05/07/17 at 08:30 Bisacodyl (Dulcolax) 10 mg DAILY PRN PO CONSTIPATION Last administered on 21:46; Admin Dose 10 MG; Start 05/07/17 at 08:30 Fluticasone Propionate (Flonase 0.05% Nasal) 1 spray BID NASAL Last administered on 05/14/17 08:42; Admin Dose 1 SPRAY; Start 05/09/17 at 21:00 Bisacodyl (Dulcolax Supp) 10 mg DAILY PRN [place] CONSTIPATION; Start 05/09/17 at 16 :00 Assessment/Plan Chief Complaint/Hosp Course Comfortable this morning on Ventimask. On examination GENERAL: Elderly gentleman comfortable at rest VITAL SIGNS: per chart NECK: Supple. No JVD or lymphadenopathy. CARDIAC EXAM: S1, S2. 1/6 systolic ejection murmur CHEST: Morbidly obese diminished air entry both lung wright ABDOMEN: Soft, nontender. No guarding or rebound. EXTREMITIES: No cyanosis, clubbing or edema +2 NEUROLOGIC: Generalized weakness. No focal deficits. Labs Noted. Chest x-ray FINDINGS: Mild pulmonary edema is unchanged. There is left basilar atelectasis, unchanged. The lungs are otherwise clear. The heart is mildly enlarged. There is calcification in the aorta consistent with atherosclerosis. There is a right-sided biventricular pacemaker/internal cardiac defibrillator. There is no pleural effusion. There is no pneumothorax. Assessment 1. Dyspnea likely secondary to pulmonary edema however with volume removal still remains intermittently hypoxemic. 2. Diabetes mellitus 3. End-stage renal failure on hemodialysis 4. History of chronic anemia secondary to end-stage renal failure. 5. Recent biventricular pacemaker placement 6. Anemia likely secondary to chronic kidney disease Plan 1. Chest CT with contrast unable to perform as no iv access. LE dopplers negative for deep vein thrombosis. CT chest noncontrast. 2. Continue with dialysis and volume removal 3. Outpatient pulmonary function testing 4. Cardiac recommendations 5. Encourage out of bed. 6. Agree with acute rehab evaluation when patient stable. Problems: MUKUND URBANO MD, [facility] May 14, 2017 11:22
[2017-05-14 11:32] LABS: CALCIUM 9.8 mg/dl (8.4-10.2); CREATININE 5.74 mg/dl (0.61-1.24); POTASSIUM 3.4 mmol/L (3.5-5.1)
--- NOTE | 2017-05-14 16:19 | RADRPT ---
PROCEDURE: CT Chest without contrast. CLINICAL INDICATION: Hypoxemic respiratory failure. TECHNIQUE: Multiple contiguous helical CT images of the chest were obtained without the administra tion of intravenous contrast. Coronal and sagittal reformatted images were obtained from the source images. CTDIvol (mGy): 16.42; Total Exam DLP (mGy-cm): 704.33. One or more of the following dose reduction techniques were utilized: - Automated exposure control. - Adjustment of the mA and/or kV according to patient size. - Use of iterative reconstruction technique. COMPARISON: Chest x-ray 05/11/2017. CT chest 05/01/2017. FINDINGS: Limited imaging of the lower neck demonstrates heterogeneity of the thyroid gland. The heart is mildly enlarged. Pacemaker and ICD leads terminate within the right atrium and right v entricle respectively. An additional lead courses through the coronary sinus. There is no pericard ial effusion. There is no mediastinal, hilar or axillary lymphadenopathy. The thoracic aorta is no rmal in caliber with atherosclerotic calcification. Coronary artery calcification is present. The pu lmonary arteries are not enlarged. A right axillary stent is observed. A small layering left pleural effusion is present. Mild residual ground-glass opacification is seen within the bilateral upper lobes and has decreased. Mild dilatation of the peripheral airways is o bserved. There is no substantial bronchial wall thickening. Mild left basilar atelectatic changes are present. Limited imaging of the upper abdomen demonstrates cholelithiasis. Mild gallbladder wall thickening / edema is observed. There is thickening of the visualized midportion of the transverse colon. Hype remic vessels are seen within the immediate surrounding pericolonic fat. Marked bilateral renal atr ophy is present. Extensive abdominal aortic and branch vessel atherosclerotic calcification is obse rved. The spleen is enlarged measuring slightly over 14.0 cm in a craniocaudal dimension. Degenerative changes are seen throughout the thoracic spine. Chest wall soft tissues are unremarkab le. IMPRESSION: Mild cardiac enlargement with extensive thoracoabdominal aortic atherosclerosis. Small layering left pleural effusion. Mild residual ground-glass opacification within the bilateral upper lobes, decreased. Cholelithiasis with mild gallbladder wall thickening / edema. Thickening of the visualized midportion of the transverse colon with prominent pericolonic vessels. Imaging findings may reflect the presence of colitis. Correlate with appropriate clinical data and signs and symptomatology. Recommend follow up with dedicated CT abdomen/pelvis. RPTAT: HLST .Bri Bravo MD, Date Time Electronically viewed and signed by .Bri Bravo MD, on 05/14/2017 16:19 .T/
--- NOTE | 2017-05-14 16:43 | RADRPT ---
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 Physician: ALONZO SERRA Quality: Good Procedures: Transthoracic echocardiogram examination. Indications: pericardial rub. 2D/M Mode Doppler Measurement Value Normal Range Measurement Value Normal Range AV Peak Gene 1.4 m/sec AV Peak PG 7.8 mmHg AI Peak PG 37.9 mmHg AI Peak Gene 3.1 m/sec LVOT Peak Gene 1.3 m/sec LVOT Peak PG 6.3 mmHg TR Peak Gene 3.0 m/sec TR Peak PG 37.0 mmHg RVSP 40.0 mmHg Findings Left Ventricle: Mild enlargement of left ventricle cavity. Moderate left ventricular systolic dysfunction. The left ventricular ejection fraction is visually estimated at 35 - 40 %. Right Ventricle: Normal right ventricular size. Normal right ventricular systolic function. Pacemaker wire noted in the right heart. Left Atrium: There is mild enlargement of left atrium. Mitral Valve: Anterior mitral valve leaflet appear mildly thickened. Posterior mitral valve leaflet appear mildly thickened. Mild mitral annular calcification. Mild to moderate mitral regurgitation. Aortic Valve: Aortic cusps appear mildly calcified. Mild aortic regurgitation. Tricuspid Valve: Normal appearance of the tricuspid valve. Right ventricular systolic pressure is consistent with moderate pulmonary hypertension. The estimated RV/RA Pressure Gradient is 40 mmHg. There is trivial tricuspid regurgitation. Pericardium: Normal pericardium with no significant pericardial effusion. IVC: Normal inferior vena cava appearance and respiratory collapse. Conclusions Mild enlargement of left ventricle cavity. Moderate left ventricular systolic dysfunction. The left ventricular ejection fraction is visually estimated at 35 - 40 %. Normal right ventricular size. Normal right ventricular systolic function. Pacemaker wire noted in the right heart. There is mild enlargement of left atrium. Normal pericardium with no significant pericardial effusion. Normal inferior vena cava appearance and respiratory collapse. Electronically Signed By: Christopher Perez 14-May-2017 16:41:42 -0700 Patient Name: RELL OBANDO Study Date: 14-May-2017 [id number]
--- NOTE | 2017-05-15 00:03 | CONS ---
Date/Time of Note Date/Time of Note DATE: 05/14/17 TIME: 23:56 Assessment/Plan Assessment/Plan Chief Complaint/Hosp Course - chest pain- trop 0.28 likely down trend from admit with NSTEMI 1.5 level.. no revasc targets on recent cath, likely 2/2 chronic cad with CLOTHING DESIGNER of multiple small vessels. cont medical therapy with statin asa/plavix and tranfusion for anemia. - ICM with LVEF 35-40% s/p BiV ICD, slightly improved on repeat echo - acute on chronic systolic heart failure- recurrent admissions, no revasc targets. unable to tolerate much medication due to lower bp. symptoms out of proportion to lv dysfunction which is slighlty improved on recent echo. ? other etiology cont for dyspnea. - LBBB s/p biV ICD - CAD s/p extensive PCI hx including LM, prox/mid LAD, prox/mid/distal RCA. no revasc targets on recent LHC. - ESRD on iHD - Anemia- severe, no e/o gi blood loss. responded to transfusion - ? rub on exam- no e/o effusion on echo, ct without e/o chronic pericardial thickening/calcification Recommendations - cont asa/plavix - cont statin - ranexa - pt refusing long acting nitro given previous dizziness, states ok prn sln spray - fluid mgmt with iHD, low na diet - bp controlled - consider digoxin periodic dosing, however does not appear to have made any clinical difference Problems: Consultation Date/Type/Reason Admit Date/Time May 01, 2017 at 21:31 Type of Consultation: cardiology Referring Provider: ALONZO SERRA MD 24 HR Interval Summary Free Text/Dictation pt seen in am, no significant changes. reports cont sob with rest and exertion. no chest pain/pressure. no pnd, orhtopnea, edema tele reviewed: vpaced Detailed Summary ENT: no complaints Respiratory: shortness of breath Cardiovascular: no complaints Gastrointestinal: no complaints Exam/Review of Systems Vital Signs Vitals Vital Signs Date Time Temp Pulse Resp B/P Pulse Ox O2 Delivery O2 Flow Rate FiO2 05/14/17 16:51 10.0 05/14/17 16:12 76 05/14/17 14:21 20 Simple Mask 05/14/17 11:24 98.6 109/46 100 05/14/17 08:47 21 Intake and Output 05/13/17 05/13/17 05/14/17 15:00 23:00 07:00 Intake Total 300 ml 200 ml Output Total 2300 ml Balance -2000 ml 200 ml Exam Constitutional: alert, oriented Psych: depression Head: normocephalic Eyes: nl conjunctiva ENMT: nl external ears & nose Neck: jvd, supple Respiratory: cta, L sided crackles cleared Cardiovascular: regular rate and rhythm, ? rub R chest, not heard on L side. No edema Gastrointestinal: soft Ext: L fistula + thrill Results Result Diagram: 05/14/17 1041 05/14/17 1041 Results 24 hrs Laboratory Tests Test 05/14/17 10:41 White Blood Count 5.6 Red Blood Count 3.32 L Hemoglobin 9.7 L Hematocrit 31.0 L Mean Corpuscular Volume 93.4 Mean Corpuscular Hemoglobin 29.2 Mean Corpuscular Hemoglobin Concent 31.3 L Red Cell Distribution Width 18.0 H Platelet Count 229 Mean Platelet Volume 9.2 Neutrophils % 74.1 Lymphocytes % 16.4 Monocytes % 5.9 Eosinophils % 2.9 Basophils % 0.5 Nucleated Red Blood Cells % 0.0 Neutrophils # 4.1 Lymphocytes # 0.9 Monocytes # 0.3 Eosinophils # 0.2 Basophils # 0.0 Nucleated Red Blood Cells # 0.0 Sodium Level 141 Potassium Level 3.4 L Chloride Level 93 L Carbon Dioxide Level 29 Anion Gap 22 H Blood Urea Nitrogen 34 H Creatinine 5.74 H Glucose Level 94 Calcium Level 9.[address] chest report reviewed- no e/o calcified percardium to indicate pericarditis SUSANA VASQUEZ May 15, 2017 00:02
== END 2017-05-14 16:37 | DRG 280 ==
LOC: TEL 21:31
PROVIDERS: ADMIT Internal Medicine; ATTEND Internal Medicine
PROC: 5A1D60Z (ICD-10-PCS; principal; 2017-05-06)
PROC: 30233N1 Transfusion of Nonautologous Red Blood Cells into Peripheral Vein, Percutaneous Approach (ICD-10-PCS; 2017-05-07)
DX: I21.4 Non-ST elevation (NSTEMI) myocardial infarction (principal); N18.6 End stage renal disease; I50.23 Acute on chronic systolic (congestive) heart failure; J81.1 Chronic pulmonary edema; I95.9 Hypotension, unspecified; I44.7 Left bundle-branch block, unspecified; D63.8 Anemia in other chronic diseases classified elsewhere; E11.22 Type 2 diabetes mellitus with diabetic chronic kidney disease; K59.00 Constipation, unspecified; I25.10 Atherosclerotic heart disease of native coronary artery without angina pectoris; Z95.0 Presence of cardiac pacemaker; R06.00 Dyspnea, unspecified; R53.81 Other malaise; R06.02 Shortness of breath; Z99.2 Dependence on renal dialysis; I99.8 Other disorder of circulatory system
CPT/HCPCS: 36430; 71010; 71250; 80048; 80053; 80162; 82728; 83540; 84100; 84484; 85025; 86850; 86870; 86900; 86901; 86920; 90935; 93306; 93308; 93970; 94640; 94664; 94760; 97116; 97161; 97530; J2270; P9016; P9047; Q4081

== ENCOUNTER 2017-06-22 12:52 | Inpatient (IN) | payer MEDICARE, OTHER ==
[~2017-06-22] VITALS: Ht 170.2 cm; Wt 78.1 kg
[~2017-06-22 12:52] MED LIST changes: +BISA5TAB6 PO; +DOCU-216 PO; +DOCU250C58 PO; +IPRA3AMP HHN; -TIOT4MIS2 INHALATION
--- NOTE | 2017-06-22 14:01 | RADRPT ---
PROCEDURE: XR Chest. CLINICAL INDICATION: Chest pain TECHNIQUE: An AP view of the chest was obtained. COMPARISON: Chest x-ray dated 05/11/2017 FINDINGS: There is a right subclavian biventricular pacemaker AICD. Metallic stent graft material is seen in t he region of the right axillary and subclavian vein. There is prominence of the interstitial markings. There is a large left pleural effusion. No pneumo thorax is seen. The cardiomediastinal silhouette is mildly enlarged . Calcifications are seen with in the aortic arch. The osseous structures demonstrate senescent changes. IMPRESSION: 1. Large left pleural effusion, new finding when compared to the prior examination. 2. Mild prominence of the interstitial markings, may reflect mild underlying interstitial edema or chronic lung changes. 3. Mild cardiomegaly and aortic atherosclerosis. 4. Right subclavian biventricular pacemaker AICD. RPTAT: HH .Shasta Cisneros MD, MD Date Time Electronically viewed and signed by .Shasta Cisneros MD, on 06/22/2017 14:00 .G/
[2017-06-22 14:12] LABS: BASOPHILS % 0.4 % (0.0-2.0); EOSINOPHILS # 0.1 10^3/ul (0.0-0.5); EOSINOPHILS % 1.2 % (0.0-7.0); HEMATOCRIT 32.6 % (42.0-52.0); LYMPHOCYTES # 0.8 10^3/ul (0.8-2.9); LYMPHOCYTES % 10.7 % (15.0-51.0); MEAN CORPUSCULAR HEMOGLOBIN 30.1 pg (29.0-33.0); MEAN CORPUSCULAR HGB CONC 30.7 g/dl (32.0-37.0); MEAN CORPUSCULAR VOLUME 98.2 fl (82.0-101.0); MEAN PLATELET VOLUME 9.4 fl (7.4-10.4); MONOCYTE # 0.5 10^3/ul (0.3-0.9); MONOCYTES % 5.9 % (0.0-11.0); NEUTROPHILS % 81.5 % (39.0-77.0); PLATELET COUNT 196 10^3/UL (140-415); RED BLOOD COUNT 3.32 10^6/ul (4.70-6.10); WHITE BLOOD COUNT 7.6 10^3/ul (4.8-10.8)
[2017-06-22 14:26] LABS: INR 1.05; PROTIME 13.7 Sec (12.2-14.2); PT RATIO 1.1
[2017-06-22 14:27] LABS: PARTIAL THROMBOPLASTIN TIME 37.4 Sec (25.0-35.0)
[2017-06-22] MEDS ORDERED: ACETAMINOPHEN 325 MG TAB PO PRN (15:00)
[2017-06-22] MEDS ORDERED: ONDANSETRON 4 MG INJ IV PRN (15:00)
--- NOTE | 2017-06-22 15:12 | ERA ---
ER Documentation Chief Complaint Date/Time DATE: 06/22/17 TIME: 14:59 Chief Complaint GEN WEAKNESS AND CHEST PAIN AFTER DIALYSIS NO N/V. MILD SOB AND ANXIETY HPI This is a 71-year-old male who presents to the emergency room after being brought in by ambulance for evaluation of generalized weakness, shortness of breath and mild chest discomfort. The patient was at dialysis and completed his dialysis and started complaining of chest discomfort. The patient does state that he is on home oxygen however he has had to use more oxygen at home recently because his oxygen levels were low and he was weak. The patient denies any aggravating or relieving factors for his symptoms of shortness of breath and chest discomfort. He localizes the chest discomfort to the left portion of his chest and describes as a congested feeling. ROS All systems reviewed and are negative except as per history of present illness. Medications Home Meds Active Scripts Docusate Sodium (Dok) 100 Mg Capsule, 100 MG PO TID Y for CONSTIPATION for 30 Days, #100 CAP Prov:POP BOYCE MD 05/14/17 Ipratropium-Albuterol (Ipratropium-Albuterol) 0.5-3 Mg/3 Ml Ampul.neb, 3 ML HHN Q6H RESP THERAPY for 30 Days, #120 KIT 5 Refills Prov:POP BOYCE MD 05/14/17 Ropinirole Hcl* (Ropinirole Hcl*) 0.5 Mg Tablet, 0.5 MG PO TID for 90 Days, #90 TAB Prov:POP BOYCE MD 05/14/17 Losartan Potassium* (Losartan Potassium*) 25 Mg Tablet, 25 MG PO DAILY for 90 Days, TAB 3 Refills Prov:POP BOYCE MD 02/06/17 Pantoprazole* (Pantoprazole*) 40 Mg Tablet., 40 MG PO Q12 for 60 Days Prov:ALONZO SERRA MD 12/05/16 Reported Medications Multivit/Ca Carb/B Cmplx/Fa* (Gi-Calvin*) 1 Tab Tab, 1 TAB PO DAILY, TAB TAKE AFTER DIALYSIS (NEPHRO-CALVIN) 04/24/17 Esomeprazole Mag Trihydrate (Nexium) 40 Mg Capsule., 40 MG PO QAM, #30 CAP 04/24/17 Nitroglycerin* (Nitroglycerin* [place]) 400 Mcg/[place] - 12 Gm [place], 1 SPRAY TL Q5M Y for CHEST PAIN, SPRAY 01/28/17 Ranolazine* (Ranexa*) 500 Mg Tab.sr.12h, 500 MG PO Q12, TAB 01/28/17 Sevelamer Carbonate* (Renvela*) 800 Mg Tablet, 0.8 GM PO WITH MEALS, TAB 01/28/17 Zolpidem Tartrate* (Zolpidem Tartrate*) 5 Mg Tablet, 7.5 MG PO QHS Y for INSOMNIA, #30 TAB 12/01/16 Clopidogrel Bisulfate (Clopidogrel) 75 Mg Tablet, 75 MG PO QHS, #30 TAB 12/01/16 Hydrocodone/Acetaminophen ([place] 7.5-325 Tablet) 1 Each Tablet, 1 EACH PO DAILY Y for SEVERE PAIN LEVEL 7-10, TAB 12/01/16 Atorvastatin* (Atorvastatin*) 40 Mg Tablet, 40 MG PO QHS, #30 TAB 12/01/16 Aspirin* (Aspirin* EC) 81 Mg Tablet.dr, 81 MG PO QHS, TAB 12/01/16 Alprazolam* (Alprazolam*) 0.25 Mg Tablet, 0.25 MG PO QHS Y for ANXIETY, TAB 12/01/16 Allopurinol* (Allopurinol*) 100 Mg Tablet, 100 MG PO DAILY, TAB 12/01/16 Discontinued Scripts Docusate Sodium* (Colace*) 250 Mg Capsule, 250 MG PO BID Y for CONSTIPATION for 30 Days, #100 CAP Prov:POP BOYCE MD 05/14/17 Bisacodyl* (Bisacodyl*) 5 Mg Tablet., 10 MG PO DAILY Y for CONSTIPATION for 30 Days, #30 CAP Prov:POP BOYCE MD 05/14/17 Allergies Allergies: Coded Allergies: No Known Drug Allergies (Verified Allergy, Unknown, 06/22/17) PMhx/Soc History of Surgery: Yes (kidney transplant,rectal surgery cataract glucoma both eyes bilateral hip r) Anesthesia Reaction: No Hx Neurological Disorder: No Hx Respiratory Disorders: Yes Hx Cardiac Disorders: Yes (UT,CHF,HTN,15 STENTS,14 HEART ATTACKS) Hx Psychiatric Problems: No Hx Miscellaneous Medical Probl: Yes (DM,HTN,PACEMAKER/AICD,CHF,HEMODIALYSIS,PNA ) Hx Alcohol Use: No Hx Substance Use: No Hx Tobacco Use: No Smoking Status: Never smoker Physical Exam Vitals Vital Signs Date Time Temp Pulse Resp B/P Pulse Ox O2 Delivery O2 Flow Rate FiO2 06/22/17 14:48 125 20 176/63 98 06/22/17 13:10 120 20 175/67 98 06/22/17 13:01 98.0 119 20 18/79 98 Physical Exam INITIAL VITAL SIGNS: Reviewed by me GENERAL: The patient is well developed and appropriate for usual state of health in no apparent distress HEENT: Pupils equal, round, and reactive to light. EOMI. There is no scleral icterus. NECK: C-spine is soft and supple, there is no meningismus. There is no cervical lymphadenopathy. LUNGS: Coarse breath sounds bilaterally. Rales auscultated in the left lower lobe HEART: Tachycardic, no murmurs, clicks, rubs or gallops. ABDOMEN: Soft, non-tender, non-distended. There are bowel sounds in all four quadrants. No rebound or guarding. EXTREMITIES: There is no peripheral cyanosis or edema. No focal swelling or erythema. NEUROLOGICAL: The patient moves all four extremities with 5/5 strength. Cranial nerves II - XII are intact. Normal gait. Alert and oriented SKIN: There is no apparent rash or petechiae. HEME/LYMPHATIC: There is no evidence of excessive bruising or lymphedema. PSYCHIATRIC: The patient appears mildly anxious and slightly agitated Result Diagram: 06/22/17 1345 Results 24 hrs Laboratory Tests Test 06/22/17 13:45 White Blood Count 7.610^3/ul Red Blood Count 3.3210^6/ul Hemoglobin 10.0g/dl Hematocrit 32.6% Mean Corpuscular Volume 98.2fl Mean Corpuscular Hemoglobin 30.1pg Mean Corpuscular Hemoglobin Concent 30.7g/dl Red Cell Distribution Width 17.0% Platelet Count 90443^3/UL Mean Platelet Volume 9.4fl Neutrophils % 81.5% Lymphocytes % 10.7% Monocytes % 5.9% Eosinophils % 1.2% Basophils % 0.4% Nucleated Red Blood Cells % 0.0/100WBC Neutrophils # (Manual) 6.210^3/ul Lymphocytes # 0.810^3/ul Monocytes # 0.510^3/ul Eosinophils # 0.110^3/ul Basophils # 0.010^3/ul Nucleated Red Blood Cells # 0.010^3/ul Prothrombin Time 13.7Sec Prothrombin Time Ratio 1.1 INR International Normalized Ratio 1.05 Activated Partial Thromboplast Time 37.4Sec Current Medications Medications (Trade) Dose Ordered Sig/Leonardo Route PRN Reason Start Time Stop Time Status Last Admin Dose Admin Ondansetron HCl (Zofran Inj) 4 mg ER BRIDGE PRN IV NAUSEA AND/OR VOMITING 06/22/17 15:00 06/23/17 14:59 Acetaminophen (Tylenol Tab) 650 mg ER BRIDGE PRN PO MILD PAIN/FEVER 06/22/17 15:00 06/23/17 14:59 Procedures/MDM Peripheral line placement by me: Nursing staff unable to obtain IV access. Location: Right AC Technique: [20 gauge. [id number] with nursing assistance Results: Venous flow and easy flush Secured with transparent dressing. No complications. EKG: Rate/Rhythm: Sinus tachycardia QRS, ST, T-waves: [No changes consistent w/ acute ischemia] Impression: [No evidence of ischemia or arrhythmia] Chest X-ray 1V Interpreted by me: Soft Tissue: No acute abnormalities Bones: No acute abnormalities Mediastinum/Cardiac Silhouette/Lungs: Left pleural effusion This is a 71-year-old male who presents to the emergency room for evaluation of shortness of breath. The patient is end-stage renal disease on dialysis Thursday , Thursday, Thursday. When I evaluated this patient he was tachycardic, patient did have a pulse ox of 84% on room air. He was placed on 5 L nasal cannula. The patient had an x-ray which does show a new moderate size left pleural effusion. He will be placed in for admission at this time for hypoxic respiratory failure, left pleural effusion and possible thoracentesis. Critical Care: Excluding all billable procedures Time: 33] minutes Treatments/Evaluations: Close monitoring and treatment of unstable vital signs, cardiorespiratory, and neurologic status, while maintaining tight balance of fluid, respiratory, and cardiac interventions. Departure Diagnosis: Primary Impression: Acute respiratory failure with hypoxia Additional Impressions: CHF (congestive heart failure) Tachycardia ESRD (end stage renal disease) on dialysis Recurrent left pleural effusion Condition: MAR Cotton DO Jun 22, 2017 15:09
[2017-06-22 15:34] LABS: ALBUMIN 3.4 g/dl (3.3-4.9); ALBUMIN/GLOBULIN RATIO 0.91; CALCIUM 9.3 mg/dl (8.4-10.2); CREATININE 3.8 mg/dl (0.61-1.24); TOTAL PROTEIN 7.1 g/dl (6.1-8.1)
[2017-06-22 15:45] LABS: TROPONIN-I 0.029 ng/ml (0.00-0.12)
[2017-06-22] MEDS ORDERED: NITROGLYCERIN AEROSOL (4.9 GM) TL PRN (16:00)
[2017-06-22] MEDS ORDERED: ALPRAZOLAM 0.25 MG TAB PO PRN (16:00)
--- NOTE | 2017-06-22 18:04 | CONS ---
Date/Time of Note Date/Time of Note DATE: 06/22/17 TIME: 17:47 Assessment/Plan Assessment/Plan Chief Complaint/Hosp Course # ESRD. s/p dialysis today, next likely in 2 days, Dr. Johnson will re-eval in AM # New left pleural effusion. Will need a thoracentesis # Hypoxemia due the chronic CHF and pleural effusion # Ischemic cardiomyopathy Problems: Consultation Date/Type/Reason Admit Date/Time Hx of Present Illness The patient is a 71 year old male with a history of ESRD and s/p multiple admissions due to ischemic cardiomyopathy and chronic congestive heart failure. He is s/p placement of a biventricular pacemaker at [facility]. He again developed increasing SOB over the past few day and today after dialysis he was weak and dizzy. He was transported to the ED from the dialysis unit and was found to have a large left pleural effusion. He complains of a mild dry cough, but no fever, chills or chest pain. He is being admitted by the hospitalist group and will have a thoracentesis. Constitutional: No chills, No febrile ENT: No congestion Respiratory: cough, shortness of breath, No pleuritic pain, No wheezing Cardiovascular: No chest pain, No edema Gastrointestinal: No constipation, No diarrhea, No nausea Genitourinary: other (anuric) Skin: No erythema, No rash Neurologic: No confusion, No dizziness Past Surgical History Past Surgical Hx: angioplasty, other (pacemaker) Family History Significant Family History: no pertinent family hx Social History Smoking Status: Never smoker Exam/Review of Systems Vital Signs Vitals Vital Signs Date Time Temp Pulse Resp B/P Pulse Ox O2 Delivery O2 Flow Rate FiO2 06/22/17 17:33 130 20 158/81 99 06/22/17 13:01 98.0 Exam Constitutional: alert Head: normocephalic Neck: supple, No jvd Respiratory: diminished breath sounds Cardiovascular: regular rate and rhythm Extremities: other (AVF LUE with good bruit), No edema Results Result Diagram: 06/22/17 1345 06/22/17 1345 Results 24 hrs Laboratory Tests Test 06/22/17 13:45 White Blood Count 7.6 # Red Blood Count 3.32 L Hemoglobin 10.0 L Hematocrit 32.6 L Mean Corpuscular Volume 98.2 Mean Corpuscular Hemoglobin 30.1 Mean Corpuscular Hemoglobin Concent 30.7 L Red Cell Distribution Width 17.0 H Platelet Count 196 Mean Platelet Volume 9.4 Neutrophils % 81.5 H Lymphocytes % 10.7 L Monocytes % 5.9 Eosinophils % 1.2 Basophils % 0.4 Nucleated Red Blood Cells % 0.0 Neutrophils # (Manual) 6.2 Lymphocytes # 0.8 Monocytes # 0.5 Eosinophils # 0.1 Basophils # 0.0 Nucleated Red Blood Cells # 0.0 Prothrombin Time 13.7 Prothrombin Time Ratio 1.1 INR International Normalized Ratio 1.05 Activated Partial Thromboplast Time 37.4 H Sodium Level 139 Potassium Level 4.0 Chloride Level 96 L Carbon Dioxide Level 33 H Anion Gap 14 Blood Urea Nitrogen 25 H Creatinine 3.80 H Glucose Level 123 Calcium Level 9.3 Total Bilirubin 0.0 L Direct Bilirubin 0.00 Indirect Bilirubin 0.0 Aspartate Amino Transf (AST/SGOT) 24 Alanine Aminotransferase (ALT/SGPT) 26 Alkaline Phosphatase 197 H Troponin I 0.029 B-Type Natriuretic Peptide 999453 H Total Protein 7.1 Albumin 3.4 Globulin 3.70 H Albumin/Globulin Ratio 0.91 Medications Medications Current Medications Allopurinol (Zyloprim) 100 mg DAILY PO ; Start 06/23/17 at 09:00 Alprazolam (Xanax) 0.25 mg QHS PRN PO ANXIETY; Start 06/22/17 at 16:00 Aspirin (Halfprin) 81 mg QHS PO ; Start 06/22/17 at 21:00 Atorvastatin Calcium (Lipitor) 40 mg QHS PO ; Start 06/22/17 at 21:00 Clopidogrel Bisulfate (plaVIX) 75 mg QHS PO ; Start 06/22/17 at 21:00 Docusate Sodium (Colace) 100 mg BID PO ; Start 06/22/17 at 21:00 Acetaminophen/ Hydrocodone Bitart ([place] (7.5-325)) 1 tab DAILY PRN PO SEVERE PAIN LEVEL 7-10; Start 06/22/17 at 16:00 Losartan Potassium (Cozaar) 25 mg DAILY PO ; Start 06/23/17 at 09:00 Multivit/Ca Carb/ B Cmplx/FA/Prenat (Gi-Evelio) 1 tab DAILY PO ; Start 06/23/17 at 09:00 Nitroglycerin (Nitroglycerin ([place])) 1 spray Q5M PRN TL CHEST PAIN; Start 06/22 at 16:00 Pantoprazole (Protonix Tab) 40 mg DAILY@06 PO ; Start 06/23/17 at 06:00 Ranolazine (Ranexa) 500 mg Q12 PO ; Start 06/22/17 at 21:00 Ropinirole HCl (Requip) 0.5 mg TID PO ; Start 06/22/17 at 21:00 Zolpidem Tartrate (Ambien) 7.5 mg QHS PRN PO INSOMNIA; Start 06/22/17 at 16:00 VINI REILLY MD Jun 22, 2017 17:58
[2017-06-22 18:05] VITALS: PULSE 126
[2017-06-22 18:09] VITALS: Ht 170.2 cm; Wt 78.1 kg
[2017-06-22 20:09] VITALS: PULSE 130
[2017-06-22 20:22] VITALS: BP 137/63; RESP 20
[2017-06-22] MEDS: CLOPIDOGREL 75 MG TAB PO SCH (20:26)
[2017-06-22] MEDS: ASPIRIN (EC) 81 MG TAB PO SCH (20:26)
[2017-06-22] MEDS: DOCUSATE SODIUM 100 MG CAP PO SCH (20:27)
[2017-06-22] MEDS: ATORVASTATIN 40 MG TAB PO SCH (20:27)
[2017-06-22] MEDS: SEVELAMER CARBONATE 0.8 GM PKT PO SCH (20:28)
[2017-06-22] MEDS: ROPINIROLE 0.25 MG TAB PO SCH (20:28)
[2017-06-22] MEDS: RANOLAZINE (SR) 500 MG TAB PO SCH (20:30)
[2017-06-22] MEDS ORDERED: VANCOMYCIN 1 GM (PMX) 250 ML IVPB SCH (21:00)
[2017-06-22] MEDS ORDERED: DILTIAZEM 25 MG INJ IV ONE (21:00)
[2017-06-22] MEDS ORDERED: PIPER-TAZO 3.375 GM IV (PMX) 100 ML IVPB ONE (21:00)
[2017-06-22 22:01] LABS: CK-MB 1.22 ng/ml (0.0-2.4)
[2017-06-22 22:03] LABS: TROPONIN-I 0.528 ng/ml (0.00-0.12)
[2017-06-23] VITALS (12 sets, daily range): BP systolic 91–135; BP diastolic 54–66; PULSE 85–130; RESP 17–20
[2017-06-23] MEDS ORDERED: HEPARIN 1000 UNITS/ML 10 ML INJ IV ONE (01:00)
[2017-06-23] MEDS ORDERED: HEPARIN 1000 UNITS/ML 10 ML INJ IV PRN (01:00)
[2017-06-23] MEDS: HEPARIN 25000 UNITS/250 ML 250 ML IV SCH ×2 (02:04→09:26)
[2017-06-23 02:31] LABS: INR 1.19; PROTIME 15.2 Sec (12.2-14.2); PT RATIO 1.2
[2017-06-23 02:32] LABS: PARTIAL THROMBOPLASTIN TIME 41.3 Sec (25.0-35.0)
[2017-06-23 02:47] LABS: CK-MB 0.88 ng/ml (0.0-2.4); TROPONIN-I 1.54 ng/ml (0.00-0.12)
[2017-06-23] MEDS ORDERED: METOPROLOL 5 MG INJ IV ONE (03:30)
[2017-06-23] MEDS ORDERED: ACETAMINOPHEN 325 MG TAB ONE (04:00)
[2017-06-23] MEDS ORDERED: ACETAMINOPHEN 325 MG TAB PO PRN (04:00)
--- NOTE | 2017-06-23 05:58 | EN ---
Date/Time of Note Date/Time of Note DATE: 06/23/17 TIME: 05:56 Event Note Medicine Medicine Event Note Rising troponin levels. Patient in not in any acute distress. Started on Heparin Drip or NSTEMI. Discusse code status with Pamella over the phone who confirmed that he is a DNR. Code status changed to DNR. Called Approximately at 5:49AM. IMMANUEL CAMPOVERDE Jun 23, 2017 05:58
[2017-06-23] MEDS: PANTOPRAZOLE (EC) 40 MG TAB PO SCH (06:20)
[2017-06-23] MEDS: ROPINIROLE 0.25 MG TAB PO SCH ×2 (07:19→13:00)
[2017-06-23 07:38] LABS: BASOPHIL # 0.1 10^3/ul (0.0-0.1); BASOPHILS % 0.3 % (0.0-2.0); HEMATOCRIT 30.7 % (42.0-52.0); HEMOGLOBIN 9.2 g/dl (14.0-18.0); LYMPHOCYTES # 0.9 10^3/ul (0.8-2.9); LYMPHOCYTES % 5.4 % (15.0-51.0); MEAN PLATELET VOLUME 10.1 fl (7.4-10.4); MONOCYTE # 1.1 10^3/ul (0.3-0.9); MONOCYTES % 6.4 % (0.0-11.0); NEUTROPHILS % 87.2 % (39.0-77.0); PLATELET COUNT 174 10^3/UL (140-415); RED BLOOD COUNT 3.07 10^6/ul (4.70-6.10)
--- NOTE | 2017-06-23 07:53 | CONS ---
Date/Time of Note Date/Time of Note DATE: 06/23/17 TIME: 07:45 Assessment/Plan Assessment/Plan Problems: (1) NSTEMI (non-ST elevated myocardial infarction) Status: Acute Comment: has done this before... has had numerous cardiac caths, as well as eval by cardiac surgeon... unfortunately, no PCI or target lesion available for intervention... I did speak with Dr Perez, his principal secretary, to see him this am... currently on IV hepatin, so thoracentesis on HOLD (2) SOB (shortness of breath) Comment: on FM now... feel is qite important to get the Lt chest thoracentesis , but on IV heparin currently (3) Recurrent left pleural effusion Status: Acute Comment: need to discuss w IM, re; need for chest tap (4) ESRD (end stage renal disease) on dialysis Status: Chronic Comment: is q MWF... will order for the am Consultation Date/Type/Reason Admit Date/Time Jun 22, 2017 at 14:58 Initial Consult Date Type of Consultation: neph 24 HR Interval Summary Free Text/Dictation events noted... Lt pleural effusion, but now on IV heparin for troponin bump c/ w NSTEMI... he has done this before, re: enzymes... is no target lesion for any PCI...no c/o cp ... is weak Exam/Review of Systems Vital Signs Vitals Vital Signs Date Time Temp Pulse Resp B/P Pulse Ox O2 Delivery O2 Flow Rate FiO2 06/23/17 04:16 120 06/23/17 03:58 102.7 20 132/66 99 06/23/17 01:46 4.0 Intake and Output 06/22/17 06/22/17 06/23/17 15:00 23:00 07:00 Intake Total 240 ml Output Total 0 ml Balance 240 ml Exam Constitutional: alert, oriented Eyes: nl conjunctiva Neck: supple Respiratory: clear to auscultation Cardiovascular: regular rate and rhythm Gastrointestinal: nl liver, spleen, soft Extremities: edema (none... fxn avf LUE) Results Result Diagram: 06/22/17 1345 06/22/17 1345 Results 24 hrs Laboratory Tests Test 06/22/17 13:45 06/22/17 21:15 06/23/17 02:00 06/23/17 06:35 White Blood Count 7.6 # Pending Red Blood Count 3.32 L Pending Hemoglobin 10.0 L Pending Hematocrit 32.6 L Pending Mean Corpuscular Volume 98.2 Pending Mean Corpuscular Hemoglobin 30.1 Pending Mean Corpuscular Hemoglobin Concent 30.7 L Pending Red Cell Distribution Width 17.0 H Pending Platelet Count 196 Pending Mean Platelet Volume 9.4 Pending Neutrophils % 81.5 H Lymphocytes % 10.7 L Monocytes % 5.9 Eosinophils % 1.2 Basophils % 0.4 Nucleated Red Blood Cells % 0.0 Neutrophils # (Manual) 6.2 Lymphocytes # 0.8 Monocytes # 0.5 Eosinophils # 0.1 Basophils # 0.0 Nucleated Red Blood Cells # 0.0 Prothrombin Time 13.7 15.2 H Prothrombin Time Ratio 1.1 1.2 INR International Normalized Ratio 1.05 1.19 Activated Partial Thromboplast Time 37.4 H 41.3 H Sodium Level 139 Potassium Level 4.0 Chloride Level 96 L Carbon Dioxide Level 33 H Anion Gap 14 Blood Urea Nitrogen 25 H Creatinine 3.80 H Glucose Level 123 Calcium Level 9.3 Total Bilirubin 0.0 L Direct Bilirubin 0.00 Indirect Bilirubin 0.0 Aspartate Amino Transf (AST/SGOT) 24 Alanine Aminotransferase (ALT/SGPT) 26 Alkaline Phosphatase 197 H Troponin I 0.029 0.528 *H 1.540 *H B-Type Natriuretic Peptide 540748 H Total Protein 7.1 Albumin 3.4 Globulin 3.70 H Albumin/Globulin Ratio 0.91 Creatine Kinase 55 43 Creatine Kinase Index 2.2 2.0 Creatinine Kinase MB (Mass) 1.22 0.88 Medications Medications Current Medications Allopurinol (Zyloprim) 100 mg DAILY PO ; Start 06/23/17 at 09:00 Alprazolam (Xanax) 0.25 mg QHS PRN PO ANXIETY Last administered on 06/22/17 18: 32; Admin Dose 0.25 MG; Start 06/22/17 at 16:00 Aspirin (Halfprin) 81 mg QHS PO Last administered on 06/22/17 20:26; Admin Dose 81 MG; Start 06/22/17 at 21:00 Atorvastatin Calcium (Lipitor) 40 mg QHS PO Last administered on 06/22/17 20:27 ; Admin Dose 40 MG; Start 06/22/17 at 21:00 Clopidogrel Bisulfate (plaVIX) 75 mg QHS PO Last administered on 06/22/17 20:26 ; Admin Dose 75 MG; Start 06/22/17 at 21:00 Docusate Sodium (Colace) 100 mg BID PO Last administered on 06/22/17 20:27; Admin Dose 100 MG; Start 06/22/17 at 21:00 Acetaminophen/ Hydrocodone Bitart ([place] (7.5-325)) 1 tab DAILY PRN PO SEVERE PAIN LEVEL 7-10; Start 06/22/17 at 16:00 Losartan Potassium (Cozaar) 25 mg DAILY PO ; Start 06/23/17 at 09:00 Multivit/Ca Carb/ B Cmplx/FA/Prenat (Gi-Evelio) 1 tab DAILY PO ; Start 06/23/17 at 09:00 Nitroglycerin (Nitroglycerin ([place])) 1 spray Q5M PRN TL CHEST PAIN; Start 06/22 at 16:00 Pantoprazole (Protonix Tab) 40 mg DAILY@06 PO Last administered on 06/23/17 06: 20; Admin Dose 40 MG; Start 06/23/17 at 06:00 Ranolazine (Ranexa) 500 mg Q12 PO Last administered on 06/22/17 20:30; Admin Dose 500 MG; Start 06/22/17 at 21:00 Ropinirole HCl (Requip) 0.5 mg TID PO Last administered on 06/23/17 07:19; Admin Dose 0.5 MG; Start 06/22/17 at 21:00 Zolpidem Tartrate (Ambien) 7.5 mg QHS PRN PO INSOMNIA; Start 06/22/17 at 16:00 Acetaminophen (Tylenol Tab) 650 mg Q6H PRN PO PAIN AND OR ELEVATED TEMP Last administered on 06/23/17 04:03; Admin Dose 650 MG; Start 06/23/17 at 04:00 POP BOYCE MD Jun 23, 2017 07:53
[2017-06-23 07:57] LABS: INR 1.34; PROTIME 16.7 Sec (12.2-14.2); PT RATIO 1.3
[2017-06-23 08:13] LABS: CALCIUM 9.1 mg/dl (8.4-10.2); CHOL/HDL RATIO 3.1 RATIO; CREATININE 5.02 mg/dl (0.61-1.24); MAGNESIUM 1.8 mg/dl (1.7-2.5); PHOSPHORUS 2.7 mg/dl (2.5-4.9); POTASSIUM 3.6 mmol/L (3.5-5.1)
[2017-06-23 08:25] LABS: PARTIAL THROMBOPLASTIN TIME 135.7 Sec (25.0-35.0)
[2017-06-23] MEDS: LOSARTAN 25 MG TAB PO SCH (09:00)
[2017-06-23] MEDS ORDERED: NON-FORMULARY/PATIENT OWN MED (Esomeprazole Mag Trihydrate (Nexium) 40 MG) PO SCH (09:00)
[2017-06-23] MEDS: MULTIVIT/CA CARB/B CMPLX/FA TAB PO SCH (09:07)
[2017-06-23] MEDS: DOCUSATE SODIUM 100 MG CAP PO SCH ×2 (09:07→21:13)
[2017-06-23] MEDS: RANOLAZINE (SR) 500 MG TAB PO SCH (09:07)
[2017-06-23] MEDS: SEVELAMER CARBONATE 0.8 GM PKT PO SCH ×3 (09:07→17:46)
--- NOTE | 2017-06-23 09:08 | CONS ---
Date/Time of Note Date/Time of Note DATE: 06/23/17 TIME: 08:55 Assessment/Plan Assessment/Plan Chief Complaint/Hosp Course ASSESSMENT: 1. 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 will cont medical mgmt and trend trop, monitor cp. cont asa, plavix. pt on heparin gtt, but ok to hold for thoracentesis. consider LHC if trop does not downtrend, however, he unless he has acute lesion the current known ischemic area has very low chance for successful revasc and with high risk would not recommend. 2. ICM- LVEF 30-35%, s/p BiV ICD, chronic NYHA III on home o2 3. Acute on Chronic diastolic+systolic heart failure - fluid mgmt with iHD. has L pleural effusion though ? infectious. 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 5. Hyperlipidemia. 6. CAD- s/p many previous PCI. known ENAMEL BUFFER ostial LCx with L/R-L collaterals. ENAMEL BUFFER branch of D1 with l-l collaterals . patent lad/Diag stents. distal RCA disease s/p PCI 11/2016 7. Fever, leukocytosis- concern for pna with effusion. on abx Impression: - con asa 81mg daily - cont plavix 75 mg daily - ok to hold losartan if bp unable to tolerate - cont statin - cont dialysis per renal - pt intolerant of bb/nitrate previously - obtain blood cx given fever, leukocytosis. obtain echo to eval for acute change, eval ppm lead - ok to hold heparin products for thoracentesis. can restart after when safe Problems: Consultation Date/Type/Reason Admit Date/Time Jun 22, 2017 at 14:58 Date of Consultation: Jun 23, 2017 Type of Consultation: cardiology Reason for Consultation nstemi, Referring Provider: POP BOYCE MD Hx of Present Illness Mr. Clemens is a 71 y.o. man with h/o of ICM s/p multiple KS, CAD s/p numerous PCI last 11/2016 to RCA, chronic severe systolic heart failure, LBBB s/p BiV ICD , HTN, DM2, ESRD on iHD MWF via L AV fistula. Pt is now admitted for increased dyspnea after dialysis, weakness, dizziness. pt sent to ED found to have large L pleural effusion. pt also noted to have fevers to 102.7 with elevated WBC count started on abx. labs show NSTEMI with trop 1.5. pt started on heparin gtt, given asa/plavix as well. he has known severe multi vessel cad, last [facility] 03/2017 where he also had NSTEMI, had patent stents of RCA with KRISTIN 3 flow, Patent long overlapping stents from LM to mid LAD. Patent stent in D1 vessel with KRISTIN 3 flow. He has jailed LCx and subranch of D1 which are ENAMEL BUFFER and fill via collateral filling weakly in the distal vessels. He has no revascularizable targets via PCI and has been evaluated for CABG at [facility] previously and felt to be too high risk for surgery. Constitutional: No chills, No febrile ENT: No congestion Respiratory: cough, shortness of breath, No pleuritic pain, No wheezing Cardiovascular: No chest pain, No edema Gastrointestinal: No constipation, No diarrhea, No nausea Genitourinary: other (anuric) Skin: No erythema, No rash Neurologic: No confusion, No dizziness Past Medical History 1. Cardiac history as mentioned in HPI 2. Chronic kidney disease, on dialysis. via L arm fistula 3. Hypertension. 4. Hyperlipidemia. 5. Peripheral vascular disease. 6. 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 7. Ischemic cardiomyopathy with moderate systolic dysfunction, chronic systolic heart failure 8 LBBB QRS 170ms s/p BiV ICD at [facility] Past Surgical History PCI kidney transplant L arm fistula placement Past Surgical Hx: other (pacemaker) Family History Significant Family History: other (no early cad) Social History Alcohol Use: none Smoking Status: Never smoker Drug Use: none Exam/Review of Systems Vital Signs Vitals Vital Signs Date Time Temp Pulse Resp B/P Pulse Ox O2 Delivery O2 Flow Rate FiO2 06/23/17 08:12 98.6 100 18 96/54 99 06/23/17 01:46 4.0 Intake and Output 06/22/17 06/22/17 06/23/17 14:59 22:59 06:59 Intake Total 240 ml Output Total 0 ml Balance 240 ml Exam Constitutional: alert, oriented Psych: normal mood Head: normocephalic Eyes: nl conjunctiva ENMT: nl external ears & nose Neck: jvd, supple Respiratory: decreased bs L side posterior Cardiovascular: regular rate and rhythm, ii/vi broderick rusb. No edema Gastrointestinal: soft Ext: L fistula + thrill Results Result Diagram: 06/23/17 0635 06/23/17 0635 Results 24 hrs Laboratory Tests Test 06/22/17 13:45 06/22/17 21:15 06/23/17 02:00 06/23/17 06:35 White Blood Count 7.6 # 17.0 #H Red Blood Count 3.32 L 3.07 L Hemoglobin 10.0 L 9.2 L Hematocrit 32.6 L 30.7 L Mean Corpuscular Volume 98.2 100.0 Mean Corpuscular Hemoglobin 30.1 30.0 Mean Corpuscular Hemoglobin Concent 30.7 L 30.0 L Red Cell Distribution Width 17.0 H 17.0 H Platelet Count 196 174 Mean Platelet Volume 9.4 10.1 Neutrophils % 81.5 H 87.2 H Lymphocytes % 10.7 L 5.4 L Monocytes % 5.9 6.4 Eosinophils % 1.2 0.0 Basophils % 0.4 0.3 Nucleated Red Blood Cells % 0.0 0.0 Neutrophils # (Manual) 6.2 14.8 H Lymphocytes # 0.8 0.9 Monocytes # 0.5 1.1 H Eosinophils # 0.1 0.0 Basophils # 0.0 0.1 Nucleated Red Blood Cells # 0.0 0.0 Prothrombin Time 13.7 15.2 H 16.7 H Prothrombin Time Ratio 1.1 1.2 1.3 INR International Normalized Ratio 1.05 1.19 1.34 Activated Partial Thromboplast Time 37.4 H 41.3 H 135.7 *H Sodium Level 139 136 Potassium Level 4.0 3.6 Chloride Level 96 L 95 L Carbon Dioxide Level 33 H 29 Anion Gap 14 16 Blood Urea Nitrogen 25 H 35 H Creatinine 3.80 H 5.02 H Glucose Level 123 132 Calcium Level 9.3 9.1 Total Bilirubin 0.0 L Direct Bilirubin 0.00 Indirect Bilirubin 0.0 Aspartate Amino Transf (AST/SGOT) 24 Alanine Aminotransferase (ALT/SGPT) 26 Alkaline Phosphatase 197 H Troponin I 0.029 0.528 *H 1.540 *H B-Type Natriuretic Peptide 742030 H Total Protein 7.1 Albumin 3.4 Globulin 3.70 H Albumin/Globulin Ratio 0.91 Creatine Kinase 55 43 Creatine Kinase Index 2.2 2.0 Creatinine Kinase MB (Mass) 1.22 0.88 Phosphorus Level 2.7 Magnesium Level 1.8 Triglycerides Level 116 Cholesterol Level 97 L LDL Cholesterol, Calculated 43 HDL Cholesterol 31 Cholesterol/HDL Ratio 3.1 Test 06/23/17 08:11 Bedside Glucose 142 Medications Medications Current Medications Allopurinol (Zyloprim) 100 mg DAILY PO ; Start 06/23/17 at 09:00 Alprazolam (Xanax) 0.25 mg QHS PRN PO ANXIETY Last administered on 06/22/17 18: 32; Admin Dose 0.25 MG; Start 06/22/17 at 16:00 Aspirin (Halfprin) 81 mg QHS PO Last administered on 06/22/17 20:26; Admin Dose 81 MG; Start 06/22/17 at 21:00 Atorvastatin Calcium (Lipitor) 40 mg QHS PO Last administered on 06/22/17 20:27 ; Admin Dose 40 MG; Start 06/22/17 at 21:00 Clopidogrel Bisulfate (plaVIX) 75 mg QHS PO Last administered on 06/22/17 20:26 ; Admin Dose 75 MG; Start 06/22/17 at 21:00 Docusate Sodium (Colace) 100 mg BID PO Last administered on 06/22/17 20:27; Admin Dose 100 MG; Start 06/22/17 at 21:00 Acetaminophen/ Hydrocodone Bitart ([place] (7.5-325)) 1 tab DAILY PRN PO SEVERE PAIN LEVEL 7-10; Start 06/22/17 at 16:00 Losartan Potassium (Cozaar) 25 mg DAILY PO ; Start 06/23/17 at 09:00 Multivit/Ca Carb/ B Cmplx/FA/Prenat (Gi-Evelio) 1 tab DAILY PO ; Start 06/23/17 at 09:00 Nitroglycerin (Nitroglycerin ([place])) 1 spray Q5M PRN TL CHEST PAIN; Start 06/22 at 16:00 Pantoprazole (Protonix Tab) 40 mg DAILY@06 PO Last administered on 06/23/17 06: 20; Admin Dose 40 MG; Start 06/23/17 at 06:00 Ranolazine (Ranexa) 500 mg Q12 PO Last administered on 06/22/17 20:30; Admin Dose 500 MG; Start 06/22/17 at 21:00 Ropinirole HCl (Requip) 0.5 mg TID PO Last administered on 06/23/17 07:19; Admin Dose 0.5 MG; Start 06/22/17 at 21:00 Zolpidem Tartrate (Ambien) 7.5 mg QHS PRN PO INSOMNIA; Start 06/22/17 at 16:00 Acetaminophen (Tylenol Tab) 650 mg Q6H PRN PO PAIN AND OR ELEVATED TEMP Last administered on 06/23/17 04:03; Admin Dose 650 MG; Start 06/23/17 at 04:00 Procedures Procedures cxr imaging reviewed, large L pleural effusion SUSANA VASQUEZ Jun 23, 2017 09:08
[2017-06-23] MEDS: ALLOPURINOL 100 MG TAB PO SCH (09:11)
[2017-06-23 09:19] LABS: IRON 18 ug/dl (35-150)
--- NOTE | 2017-06-23 09:34 | PN ---
Date/Time of Note Date/Time of Note DATE: 06/23/17 TIME: 09:03 Assessment/Plan VTE Prophylaxis VTE Prophylaxis Intervention: SCD's Lines/Catheters IV Catheter Type (from [facility]): [place] Urinary Cath still in place: No Assessment/Plan Assessment/Plan 71 yo M sent from HD center for SOB and mild chest pressure now managed as follows: 1. Sepsis likely 2/2 to PNA 2. Large Pleural effusion with likely underlying pneumonia 3. ESRD s/p kidney transplant x2 now on HD 4. NSTEMI Subjective 24 Hr Interval Summary Free Text/Dictation Patient seen and evaluated states he's tired denies chest pain on oxygen via face mask Started on heparin drip overnight for NSTEMI Exam/Review of Systems Vital Signs Vitals Vital Signs Date Time Temp Pulse Resp B/P Pulse Ox O2 Delivery O2 Flow Rate FiO2 06/23/17 08:12 98.6 100 18 96/54 99 06/23/17 01:46 4.0 Intake and Output 06/22/17 06/22/17 06/23/17 15:00 23:00 07:00 Intake Total 240 ml Output Total 0 ml Balance 240 ml Exam Constitutional: alert (Lethargic), oriented, No distress Head: atraumatic, normocephalic Eyes: PERRL ENMT: mucosa pink and moist Neck: supple, No jvd Respiratory: clear to auscultation, diminished breath sounds (L side) Cardiovascular: regular rate and rhythm, No murmurs/extra sounds Gastrointestinal: bowel sounds, non-tender, soft, surgical scars (old) Musculoskeletal: nl extremities to inspection Extremities: No edema Neurological: lethargic, nl mental status Results Result Diagram: 06/23/17 0635 06/23/17 0635 Results 24 hrs Laboratory Tests Test 06/22/17 13:45 06/22/17 21:15 06/23/17 02:00 06/23/17 06:35 White Blood Count 7.6 # 17.0 #H Red Blood Count 3.32 L 3.07 L Hemoglobin 10.0 L 9.2 L Hematocrit 32.6 L 30.7 L Mean Corpuscular Volume 98.2 100.0 Mean Corpuscular Hemoglobin 30.1 30.0 Mean Corpuscular Hemoglobin Concent 30.7 L 30.0 L Red Cell Distribution Width 17.0 H 17.0 H Platelet Count 196 174 Mean Platelet Volume 9.4 10.1 Neutrophils % 81.5 H 87.2 H Lymphocytes % 10.7 L 5.4 L Monocytes % 5.9 6.4 Eosinophils % 1.2 0.0 Basophils % 0.4 0.3 Nucleated Red Blood Cells % 0.0 0.0 Neutrophils # (Manual) 6.2 14.8 H Lymphocytes # 0.8 0.9 Monocytes # 0.5 1.1 H Eosinophils # 0.1 0.0 Basophils # 0.0 0.1 Nucleated Red Blood Cells # 0.0 0.0 Prothrombin Time 13.7 15.2 H 16.7 H Prothrombin Time Ratio 1.1 1.2 1.3 INR International Normalized Ratio 1.05 1.19 1.34 Activated Partial Thromboplast Time 37.4 H 41.3 H 135.7 *H Sodium Level 139 136 Potassium Level 4.0 3.6 Chloride Level 96 L 95 L Carbon Dioxide Level 33 H 29 Anion Gap 14 16 Blood Urea Nitrogen 25 H 35 H Creatinine 3.80 H 5.02 H Glucose Level 123 132 Calcium Level 9.3 9.1 Total Bilirubin 0.0 L Direct Bilirubin 0.00 Indirect Bilirubin 0.0 Aspartate Amino Transf (AST/SGOT) 24 Alanine Aminotransferase (ALT/SGPT) 26 Alkaline Phosphatase 197 H Troponin I 0.029 0.528 *H 1.540 *H B-Type Natriuretic Peptide 900984 H Total Protein 7.1 Albumin 3.4 Globulin 3.70 H Albumin/Globulin Ratio 0.91 Creatine Kinase 55 43 Creatine Kinase Index 2.2 2.0 Creatinine Kinase MB (Mass) 1.22 0.88 Phosphorus Level 2.7 Magnesium Level 1.8 Triglycerides Level 116 Cholesterol Level 97 L LDL Cholesterol, Calculated 43 HDL Cholesterol 31 Cholesterol/HDL Ratio 3.1 Test 06/23/17 08:11 Bedside Glucose 142 Medications Medications Current Medications Allopurinol (Zyloprim) 100 mg DAILY PO ; Start 06/23/17 at 09:00 Alprazolam (Xanax) 0.25 mg QHS PRN PO ANXIETY Last administered on 06/22/17 18: 32; Admin Dose 0.25 MG; Start 06/22/17 at 16:00 Aspirin (Halfprin) 81 mg QHS PO Last administered on 06/22/17 20:26; Admin Dose 81 MG; Start 06/22/17 at 21:00 Atorvastatin Calcium (Lipitor) 40 mg QHS PO Last administered on 06/22/17 20:27 ; Admin Dose 40 MG; Start 06/22/17 at 21:00 Clopidogrel Bisulfate (plaVIX) 75 mg QHS PO Last administered on 06/22/17 20:26 ; Admin Dose 75 MG; Start 06/22/17 at 21:00 Docusate Sodium (Colace) 100 mg BID PO Last administered on 06/22/17 20:27; Admin Dose 100 MG; Start 06/22/17 at 21:00 Acetaminophen/ Hydrocodone Bitart ([place] (7.5-325)) 1 tab DAILY PRN PO SEVERE PAIN LEVEL 7-10; Start 06/22/17 at 16:00 Losartan Potassium (Cozaar) 25 mg DAILY PO ; Start 06/23/17 at 09:00 Multivit/Ca Carb/ B Cmplx/FA/Prenat (Gi-Evelio) 1 tab DAILY PO ; Start 06/23/17 at 09:00 Nitroglycerin (Nitroglycerin ([place])) 1 spray Q5M PRN TL CHEST PAIN; Start 06/22 at 16:00 Pantoprazole (Protonix Tab) 40 mg DAILY@06 PO Last administered on 06/23/17 06: 20; Admin Dose 40 MG; Start 06/23/17 at 06:00 Ranolazine (Ranexa) 500 mg Q12 PO Last administered on 06/22/17 20:30; Admin Dose 500 MG; Start 06/22/17 at 21:00 Ropinirole HCl (Requip) 0.5 mg TID PO Last administered on 06/23/17 07:19; Admin Dose 0.5 MG; Start 06/22/17 at 21:00 Zolpidem Tartrate (Ambien) 7.5 mg QHS PRN PO INSOMNIA; Start 06/22/17 at 16:00 Acetaminophen (Tylenol Tab) 650 mg Q6H PRN PO PAIN AND OR ELEVATED TEMP Last administered on 06/23/17 04:03; Admin Dose 650 MG; Start 06/23/17 at 04:00 Procedures Procedures PROCEDURE: XR Chest. CLINICAL INDICATION: Chest pain TECHNIQUE: An AP view of the chest was obtained. COMPARISON: Chest x-ray dated 05/11/2017 FINDINGS: There is a right subclavian biventricular pacemaker AICD. Metallic stent graft material is seen in the region of the right axillary and subclavian vein. There is prominence of the interstitial markings. There is a large left pleural effusion. No pneumothorax is seen. The cardiomediastinal silhouette is mildly enlarged . Calcifications are seen within the aortic arch. The osseous structures demonstrate senescent changes. IMPRESSION: 1. Large left pleural effusion, new finding when compared to the prior examination. 2. Mild prominence of the interstitial markings, may reflect mild underlying interstitial edema or chronic lung changes. 3. Mild cardiomegaly and aortic atherosclerosis. 4. Right subclavian biventricular pacemaker AICD. RPTAT: HH .Shasta Cisneros MD, MD Date Time Electronically viewed and signed by .Shasta Cisneros MD, on 06/22/2017 14 :00 .G/ CC: MAR MOREL BOLATITO M. Jun 23, 2017 09:16
[2017-06-23 09:38] LABS: TOTAL IRON BINDING CAPACITY 183 ug/dl (241-421)
[2017-06-23] MEDS ORDERED: VANCOMYCIN IV PER PHARMACY XX SCH (12:00)
[2017-06-23] MEDS: PIPER-TAZO 2.25 GM (PMX) 50 ML IVPB SCH ×2 (14:25→21:28)
[2017-06-23] MEDS: SOD FERRIC GLUC COMPLX 125 MG in SOD CHLORIDE 0.9% 100 ML IVPB SCH (15:31)
[2017-06-23] MEDS ORDERED: VANCOMYCIN 750 MG in SOD CHLORIDE 0.9% 150 ML IVPB ONE (17:00)
[2017-06-23] MEDS: ATORVASTATIN 40 MG TAB PO SCH (21:13)
[2017-06-23] MEDS: CLOPIDOGREL 75 MG TAB PO SCH (21:13)
[2017-06-23] MEDS: ASPIRIN (EC) 81 MG TAB PO SCH (21:13)
[2017-06-23] MEDS: ZOLPIDEM 5 MG TAB PO PRN (21:17)
[2017-06-24] VITALS (19 sets, daily range): BP systolic 90–118; BP diastolic 42–60; PULSE 91–101; RESP 16–19
[2017-06-24] MEDS: RANOLAZINE (SR) 500 MG TAB PO SCH ×3 (00:23→20:46)
[2017-06-24] MEDS: ROPINIROLE 0.25 MG TAB PO SCH ×4 (00:23→20:46)
[2017-06-24] MEDS: PIPER-TAZO 2.25 GM (PMX) 50 ML IVPB SCH ×3 (05:25→20:54)
[2017-06-24] MEDS: PANTOPRAZOLE (EC) 40 MG TAB PO SCH (05:25)
[2017-06-24] MEDS: SEVELAMER CARBONATE 0.8 GM PKT PO SCH ×2 (08:00→12:00)
--- NOTE | 2017-06-24 08:32 | CONS ---
Date/Time of Note Date/Time of Note DATE: 06/24/17 TIME: 08:29 Assessment/Plan Assessment/Plan Additional Assessment/Plan 1. CKD to be dialyzed today 2. ASHD, now without angina, inc tropinin noted, ?small injury 3. Left pleural effusion, thoracentesis planned today 4. DM, sugar acceptable 5. Blood cult are +, on Vanco Consultation Date/Type/Reason Admit Date/Time Jun 22, 2017 at 14:58 Initial Consult Date Type of Consultation: neph Detailed Summary Respiratory: shortness of breath (mild) Cardiovascular: No chest pain Gastrointestinal: no complaints Genitourinary: no complaints Exam/Review of Systems Vital Signs Vitals Vital Signs Date Time Temp Pulse Resp B/P Pulse Ox O2 Delivery O2 Flow Rate FiO2 06/24/17 07:52 97.9 90 19 95/51 98 06/24/17 04:05 6.0 Intake and Output 06/23/17 06/23/17 06/24/17 15:00 23:00 07:00 Intake Total 50 ml 622 ml 300 ml Output Total 0 ml Balance 50 ml 622 ml 300 ml Exam Neck: jvd (is present) Cardiovascular: regular rate and rhythm Gastrointestinal: soft Extremities: No edema Results Result Diagram: 06/23/17 0635 06/23/17 0635 Results 24 hrs Laboratory Tests Test 06/23/17 14:29 06/23/17 20:32 Activated Partial Thromboplast Time 61.2 H Bedside Glucose 82 Medications Medications Current Medications Allopurinol (Zyloprim) 100 mg DAILY PO Last administered on 06/23/17 09:11; Admin Dose 100 MG; Start 06/23/17 at 09:00 Alprazolam (Xanax) 0.25 mg QHS PRN PO ANXIETY Last administered on 06/22/17 18: 32; Admin Dose 0.25 MG; Start 06/22/17 at 16:00 Aspirin (Halfprin) 81 mg QHS PO Last administered on 06/23/17 21:13; Admin Dose 81 MG; Start 06/22/17 at 21:00 Atorvastatin Calcium (Lipitor) 40 mg QHS PO Last administered on 06/23/17 21:13 ; Admin Dose 40 MG; Start 06/22/17 at 21:00 Clopidogrel Bisulfate (plaVIX) 75 mg QHS PO Last administered on 06/23/17 21:13 ; Admin Dose 75 MG; Start 06/22/17 at 21:00 Docusate Sodium (Colace) 100 mg BID PO Last administered on 06/23/17 21:13; Admin Dose 100 MG; Start 06/22/17 at 21:00 Acetaminophen/ Hydrocodone Bitart ([place] (7.5-325)) 1 tab DAILY PRN PO SEVERE PAIN LEVEL 7-10; Start 06/22/17 at 16:00 Losartan Potassium (Cozaar) 25 mg DAILY PO ; Start 06/23/17 at 09:00 Multivit/Ca Carb/ B Cmplx/FA/Prenat (Gi-Evelio) 1 tab DAILY PO Last administered on 06/23/17 09:07; Admin Dose 1 TAB; Start 06/23/17 at 09:00 Nitroglycerin (Nitroglycerin ([place])) 1 spray Q5M PRN TL CHEST PAIN; Start 06/22 at 16:00 Pantoprazole (Protonix Tab) 40 mg DAILY@06 PO Last administered on 06/24/17 05: 25; Admin Dose 40 MG; Start 06/23/17 at 06:00 Ranolazine (Ranexa) 500 mg Q12 PO Last administered on 06/24/17 00:23; Admin Dose 500 MG; Start 06/22/17 at 21:00 Ropinirole HCl (Requip) 0.5 mg TID PO Last administered on 06/24/17 00:23; Admin Dose 0.5 MG; Start 06/22/17 at 21:00 Zolpidem Tartrate (Ambien) 7.5 mg QHS PRN PO INSOMNIA Last administered on 21:17; Admin Dose 7.5 MG; Start 06/22/17 at 16:00 Acetaminophen 650 mg 650 mg Q6H PRN PO PAIN AND OR ELEVATED TEMP Last administered on 06/23/17 04:03; Admin Dose 650 MG; Start 06/23/17 at 04:00 Piperacillin Sod/ Tazobactam Sod 50 ml @ 100 mls/hr Q8 IVPB Last administered on 06/24/17 05:25; Admin Dose 100 MLS/HR; Start 06/23/17 at 14:00 Ferric Sodium Gluconate Complex/ Sodium Chloride ([place]lecit/NS) 110 ml @ 110 mls/hr Q24H IVPB Last administered on 06/23/17t 15:31; Admin Dose 110 MLS/HR; Start 06/23/17 at 13:00; Stop 06/27/17 at 13:59 ALONZO SERRA MD Jun 24, 2017 08:32
[2017-06-24] MEDS ORDERED: ALBUMIN HUMAN 25% 100 ML IV ONE (10:30)
[2017-06-24 12:21] LABS: BASOPHILS % 0.5 % (0.0-2.0); EOSINOPHILS # 0.1 10^3/ul (0.0-0.5); EOSINOPHILS % 2.3 % (0.0-7.0); HEMATOCRIT 28.8 % (42.0-52.0); HEMOGLOBIN 8.8 g/dl (14.0-18.0); LYMPHOCYTES # 0.6 10^3/ul (0.8-2.9); LYMPHOCYTES % 10.3 % (15.0-51.0); MEAN CORPUSCULAR HEMOGLOBIN 29.5 pg (29.0-33.0); MEAN CORPUSCULAR HGB CONC 30.6 g/dl (32.0-37.0); MEAN CORPUSCULAR VOLUME 96.6 fl (82.0-101.0); MEAN PLATELET VOLUME 10.2 fl (7.4-10.4); MONOCYTE # 0.4 10^3/ul (0.3-0.9); NEUTROPHILS % 79.4 % (39.0-77.0); PLATELET COUNT 163 10^3/UL (140-415); RED BLOOD COUNT 2.98 10^6/ul (4.70-6.10); RED CELL DISTRIBUTION WIDTH 16.8 % (11.5-14.5); WHITE BLOOD COUNT 6.1 10^3/ul (4.8-10.8)
[2017-06-24] MEDS: DOCUSATE SODIUM 100 MG CAP PO SCH ×2 (12:40→20:46)
[2017-06-24] MEDS: MULTIVIT/CA CARB/B CMPLX/FA TAB PO SCH (12:40)
[2017-06-24] MEDS: ALLOPURINOL 100 MG TAB PO SCH (12:42)
[2017-06-24 12:43] LABS: CALCIUM 9.3 mg/dl (8.4-10.2); CREATININE 2.08 mg/dl (0.61-1.24); POTASSIUM 3.5 mmol/L (3.5-5.1)
[2017-06-24] MEDS: LOSARTAN 25 MG TAB PO SCH (12:43)
[2017-06-24] MEDS: SOD FERRIC GLUC COMPLX 125 MG in SOD CHLORIDE 0.9% 100 ML IVPB SCH (12:43)
--- NOTE | 2017-06-24 14:30 | CONS ---
Date/Time of Note Date/Time of Note DATE: 06/24/17 TIME: 14:24 Assessment/Plan Assessment/Plan Chief Complaint/Hosp Course ASSESSMENT: 1. 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 will cont medical mgmt and trend trop, monitor cp. cont asa, plavix. pt on heparin gtt earlier, but off for thoracentesis. consider LHC if trop does not downtrend or recurrent chest pain.pt with [place] ischemic area has very low chance for successful revasc and with high risk would not recommend unless high suspicion for acute lesion. 2. ICM- LVEF 30-35%, s/p BiV ICD, chronic NYHA III on home o2 3. Acute on Chronic diastolic+systolic heart failure - fluid mgmt with iHD. has L pleural effusion though ? infectious. 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 5. Hyperlipidemia. 6. CAD- s/p many previous PCI. 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 POLE CUTTER branch of D1 with l-l collaterals . patent lad/Diag stents. distal RCA disease s/p PCI 11/2016 7. Fever, leukocytosis- concern for pna with effusion with now staph bacteremia. will need monitoring for fever, repeat blood cx given risk of infection of biv icd device. Impression: - con asa 81mg daily - cont plavix 75 mg daily - ok to hold losartan if bp unable to tolerate - cont statin - cont dialysis per renal - pt intolerant of bb/nitrate previously - obtain repeat blood cx given bacteremia. will need to clear, has risk of device infection with staph. obtain echo to eval for acute change, eval ppm lead - ok to hold heparin products for thoracentesis. can restart after when safe Problems: Consultation Date/Type/Reason Admit Date/Time Jun 22, 2017 at 14:58 Initial Consult Date 06/23/2017 Type of Consultation: Cardiology Reason for Consultation NSTEMI Referring Provider: ALONZO SERRA MD 24 HR Interval Summary Free Text/Dictation no acute events. pt with tmax 99.3 overnight. denies fevers, chills, sweats. on IHD this am, states feels better. sob improved slightly, less lethargic. denies chest pain. thoracentesis pending this am tele reviewed biv paced Detailed Summary Eyes: no complaints ENT: no complaints Respiratory: shortness of breath Cardiovascular: no complaints Exam/Review of Systems Vital Signs Vitals Vital Signs Date Time Temp Pulse Resp B/P Pulse Ox O2 Delivery O2 Flow Rate FiO2 06/24/17 12:40 101 06/24/17 12:30 98.2 19 111/58 95 06/24/17 07:35 6.0 Intake and Output 06/23/17 06/23/17 06/24/17 14:59 22:59 06:59 Intake Total 672 ml 300 ml Output Total 0 ml Balance 672 ml 300 ml Exam Constitutional: alert, oriented Psych: normal mood Head: normocephalic Eyes: nl conjunctiva ENMT: nl external ears & nose Neck: jvd, supple Respiratory: decreased bs L side posterior Cardiovascular: regular rate and rhythm, ii/vi broderick rusb. No edema Gastrointestinal: soft Ext: L fistula + thrill Results Result Diagram: 06/24/17 1200 06/24/17 1200 Results 24 hrs Laboratory Tests Test 06/23/17 14:29 06/23/17 20:32 06/24/17 12:00 Activated Partial Thromboplast Time 61.2 H Bedside Glucose 82 White Blood Count 6.1 # Red Blood Count 2.98 L Hemoglobin 8.8 L Hematocrit 28.8 L Mean Corpuscular Volume 96.6 Mean Corpuscular Hemoglobin 29.5 Mean Corpuscular Hemoglobin Concent 30.6 L Red Cell Distribution Width 16.8 H Platelet Count 163 Mean Platelet Volume 10.2 Neutrophils % 79.4 H Lymphocytes % 10.3 L Monocytes % 7.0 Eosinophils % 2.3 Basophils % 0.5 Nucleated Red Blood Cells % 0.0 Neutrophils # (Manual) 4.9 Lymphocytes # 0.6 L Monocytes # 0.4 Eosinophils # 0.1 Basophils # 0.0 Nucleated Red Blood Cells # 0.0 Sodium Level 136 Potassium Level 3.5 Chloride Level 95 L Carbon Dioxide Level 33 H Anion Gap 12 Blood Urea Nitrogen 16 # Creatinine 2.08 #H Glucose Level 101 Calcium Level 9.3 Medications Medications Current Medications Allopurinol (Zyloprim) 100 mg DAILY PO Last administered on 06/24/17t 12:42; Admin Dose 100 MG; Start 06/23/17 at 09:00 Alprazolam (Xanax) 0.25 mg QHS PRN PO ANXIETY Last administered on 06/22/17 18: 32; Admin Dose 0.25 MG; Start 06/22/17 at 16:00 Aspirin (Halfprin) 81 mg QHS PO Last administered on 06/23/17 21:13; Admin Dose 81 MG; Start 06/22/17 at 21:00 Atorvastatin Calcium (Lipitor) 40 mg QHS PO Last administered on 06/23/17 21:13 ; Admin Dose 40 MG; Start 06/22/17 at 21:00 Clopidogrel Bisulfate (plaVIX) 75 mg QHS PO Last administered on 06/23/17 21:13 ; Admin Dose 75 MG; Start 06/22/17 at 21:00 Docusate Sodium (Colace) 100 mg BID PO Last administered on 06/24/17 12:40; Admin Dose 100 MG; Start 06/22/17 at 21:00 Acetaminophen/ Hydrocodone Bitart ([place] (7.5-325)) 1 tab DAILY PRN PO SEVERE PAIN LEVEL 7-10; Start 06/22/17 at 16:00 Losartan Potassium (Cozaar) 25 mg DAILY PO ; Start 06/23/17 at 09:00 Multivit/Ca Carb/ B Cmplx/FA/Prenat (Gi-Evelio) 1 tab DAILY PO Last administered on 06/24/17 12:40; Admin Dose 1 TAB; Start 06/23/17 at 09:00 Nitroglycerin (Nitroglycerin ([place])) 1 spray Q5M PRN TL CHEST PAIN; Start 06/22 at 16:00 Pantoprazole (Protonix Tab) 40 mg DAILY@06 PO Last administered on 06/24/17 05: 25; Admin Dose 40 MG; Start 06/23/17 at 06:00 Ranolazine (Ranexa) 500 mg Q12 PO Last administered on 06/24/17 12:39; Admin Dose 500 MG; Start 06/22/17 at 21:00 Ropinirole HCl (Requip) 0.5 mg TID PO Last administered on 06/24/17 12:42; Admin Dose 0.5 MG; Start 06/22/17 at 21:00 Zolpidem Tartrate (Ambien) 7.5 mg QHS PRN PO INSOMNIA Last administered on 21:17; Admin Dose 7.5 MG; Start 06/22/17 at 16:00 Acetaminophen 650 mg 650 mg Q6H PRN PO PAIN AND OR ELEVATED TEMP Last administered on 06/23/17 04:03; Admin Dose 650 MG; Start 06/23/17 at 04:00 Piperacillin Sod/ Tazobactam Sod 50 ml @ 100 mls/hr Q8 IVPB Last administered on 06/24/17 05:25; Admin Dose 100 MLS/HR; Start 06/23/17 at 14:00 Ferric Sodium Gluconate Complex/ Sodium Chloride (Ferrlecit/NS) 110 ml @ 110 mls/hr Q24H IVPB Last administered on 06/24/17 12:43; Admin Dose 110 MLS/HR; Start 06/23/17 at 13:00; Stop 06/27/17 at 13:59 Miscellaneous Information (*Rx Drug Level Order Reminder*) VANCOMYCIN RANDOM ON 06/25 @ 05,:00 ONCE ONCE XX ; Start 06/25/17 at 05:00; Stop 06/25/17 at 05:01 Procedures Procedures cxr imaging report reviewed SUSANA VASQUEZ Jun 24, 2017 14:30
[2017-06-24] MEDS: SEVELAMER 800 MG TAB PO SCH (18:15)
--- NOTE | 2017-06-24 19:15 | RADRPT ---
Vent Rate: 128 bpm RR Interval: 0 msec HI Interval: 136 msec QRS Duration: 164 msec QT Interval: 360 msec QTC Interval: 525 msec P-R-T [place]: 10 - 14 - 167 degrees Sinus tachycardia Left bundle branch block Abnormal ECG Electronically Signed By: Jose Harris [id number]
[2017-06-24] MEDS: ASPIRIN (EC) 81 MG TAB PO SCH (20:46)
[2017-06-24] MEDS: CLOPIDOGREL 75 MG TAB PO SCH (20:46)
[2017-06-24] MEDS: ATORVASTATIN 40 MG TAB PO SCH (20:47)
[2017-06-24] MEDS: ZOLPIDEM 5 MG TAB PO PRN (21:56)
[2017-06-25] VITALS (11 sets, daily range): BP systolic 112–132; BP diastolic 53–70; PULSE 75–97; RESP 18–20
[2017-06-25 05:55] LABS: BASOPHILS % 0.5 % (0.0-2.0); EOSINOPHILS # 0.2 10^3/ul (0.0-0.5); EOSINOPHILS % 4.2 % (0.0-7.0); HEMATOCRIT 28.9 % (42.0-52.0); HEMOGLOBIN 8.5 g/dl (14.0-18.0); LYMPHOCYTES % 17.9 % (15.0-51.0); MEAN CORPUSCULAR HEMOGLOBIN 28.9 pg (29.0-33.0); MEAN CORPUSCULAR HGB CONC 29.4 g/dl (32.0-37.0); MEAN CORPUSCULAR VOLUME 98.3 fl (82.0-101.0); MEAN PLATELET VOLUME 10.2 fl (7.4-10.4); MONOCYTE # 0.5 10^3/ul (0.3-0.9); MONOCYTES % 9.6 % (0.0-11.0); NEUTROPHILS % 67.6 % (39.0-77.0); PLATELET COUNT 141 10^3/UL (140-415); RED BLOOD COUNT 2.94 10^6/ul (4.70-6.10); RED CELL DISTRIBUTION WIDTH 16.9 % (11.5-14.5); WHITE BLOOD COUNT 5.5 10^3/ul (4.8-10.8)
[2017-06-25] MEDS: PANTOPRAZOLE (EC) 40 MG TAB PO SCH (06:01)
[2017-06-25] MEDS: PIPER-TAZO 2.25 GM (PMX) 50 ML IVPB SCH ×3 (06:01→21:36)
[2017-06-25] MEDS: HYDROCODONE/APAP (7.5/325) TAB PO PRN ×2 (06:06→19:25)
[2017-06-25 06:20] LABS: CALCIUM 9.2 mg/dl (8.4-10.2); CREATININE 4.42 mg/dl (0.61-1.24); POTASSIUM 3.9 mmol/L (3.5-5.1)
[2017-06-25] MEDS: ALBUTEROL/IPRATROPIUM (NEB) 3 ML AMP HHN PRN (06:25)
--- NOTE | 2017-06-25 08:50 | RADRPT ---
Echocardiogram Report Patient Name: RELL OBANDO Gender: Male Date: 1945 Study Date: 24-Jun-2017 Private Inquiry Agent: Radha [facility] Location: [id number] Ref. Physician: CHRISTOPHER VASQUEZ Quality: Adequate Procedures: Transthoracic echocardiogram with complete 2D, M-Mode, and doppler examination. Indications: Eval LV Fx, H/O cardiomyopathy and valves/icd lead given bacteremia. 2D/M Mode Doppler Measurement Value Normal Ranges Measurement Value Normal Ranges LVIDd 2D 4.5 3.5 - 5.6 cm AV Peak Gene 1.4 m/sec LVIDs 2D 3.7 2.1 - 4.1 cm AV Peak PG 8.0 mmHg FS 2D 18.1 % LVOT Peak Gene 0.6 m/sec LVPWd 2D 1.4 0.6 - 1.1 cm LVOT Peak PG 1.0 mmHg IVSd 2D 1.3 0.6 - 1.1 cm MV E Peak Gene 1.3 m/sec IVS/LVPW 2D 1.0 MV A Peak Gene 1.1 m/sec AoR Diam 2D 2.6 2.0 - 3.7 cm MV E/A 1.1 LA/Ao 2D 1 0 - 1 MV Decel Time 148 msec EDV 2D 89.9 cm3 MV E/A 1.1 ESV 2D 49.4 cm3 MR Peak PG 112.0 mmHg LA Dimen 2D 3.5 2.3 - 4.0 cm MR Peak Gene 5.3 m/sec TR Peak Gene 2.8 m/sec TR Peak PG 31.0 mmHg RVSP 39.0 mmHg Findings Left Ventricle: Normal left ventricular cavity size. Mild concentric left ventricular hypertrophy. Moderate global left ventricular systolic dysfunction. Ejection fraction is visually estimated at 35 %. Tissue Doppler/Mitral Doppler indices are consistent with impaired relaxation (Stage I diastolic dysfunction). E/E`=23. There is global hypokinesis involving all segments of the left ventricle. These segments of the LV are hypokinetic inferior base segment and anterolateral mid segment. Right Ventricle: Normal right ventricular size. Normal right ventricular systolic function. Pacemaker/ICD wire noted in right atrium, ventricle. Left Atrium: The left atrium is normal in size. Right Atrium: The right atrium is normal in size. Mitral Valve: Mitral valve leaflets appear mildly thickened. Mild mitral annular calcification. Moderate mitral valve regurgitation. Aortic Valve: No hemodynamically significant aortic stenosis by doppler. Aortic cusps appear mildly calcified. Trileaflet aortic valve. Trace aortic valve regurgitation. Tricuspid Valve: Normal appearance of the tricuspid valve. Right ventricular systolic pressure is consistent with mild pulmonary hypertension. Estimated peak PA systolic pressure 39 mmHg. There is mild tricuspid regurgitation. Pulmonic Valve: Pulmonic valve not well visualized. There is trace pulmonic regurgitation. Pericardium: Normal pericardium with no significant pericardial effusion. Left pleural effusion seen. Aorta: Normal aortic root. IVC: Normal size and poor respiratory collapse consistent with elevated right atrial pressure. Conclusions Normal left ventricular cavity size. Mild concentric left ventricular hypertrophy. Moderate global left ventricular systolic dysfunction. Ejection fraction is visually estimated at 35 %. Tissue Doppler/Mitral Doppler indices are consistent with impaired relaxation (Stage I diastolic dysfunction). E/E`=23. There is global hypokinesis involving all segments of the left ventricle. These segments of the LV are hypokinetic inferior base segment and anterolateral mid segment. Normal right ventricular size. Normal right ventricular systolic function. Pacemaker/ICD wire noted in right atrium, ventricle. No hemodynamically significant aortic stenosis by doppler. Aortic cusps appear mildly calcified. Trileaflet aortic valve. Trace aortic valve regurgitation. Normal appearance of the tricuspid valve. Right ventricular systolic pressure is consistent with mild pulmonary hypertension. Estimated peak PA systolic pressure 39 mmHg. There is mild tricuspid regurgitation. Normal pericardium with no significant pericardial effusion. Left pleural effusion seen. Normal size and poor respiratory collapse consistent with elevated right atrial pressure. No obvious vegetation on valves and areas of pacing wires visualized, if high suspicion for endocarditis recommend ANTWON. Electronically Signed By: Christopher Vasquez 25-Jun-2017 08:50:13 -0700 Patient Name: RELL OBANDO Study Date: 24-Jun-2017 [id number]
--- NOTE | 2017-06-25 08:57 | CONS ---
Date/Time of Note Date/Time of Note DATE: 06/25/17 TIME: 08:52 Assessment/Plan Assessment/Plan Problems: (1) Pleural effusion Comment: still awaiting Lt sided thoracentesis... will check w radiology/ nursing ... is OFF the heparin drip... STAT CXR now for f/u (2) Bacteremia Comment: due to Staph, Ox sensitive... WBC now nl... need to re cx to see if cleared the sepsis (3) NSTEMI (non-ST elevated myocardial infarction) Status: Acute Comment: currently asx... Dr Perez following... hemodyn stable (4) SOB (shortness of breath) Comment: seems improved despite no thoracentesis... erika HD yest w good UF (5) ESRD (end stage renal disease) on dialysis Status: Chronic Comment: for planned HD in AM w UF as tolerated Consultation Date/Type/Reason Admit Date/Time Jun 22, 2017 at 14:58 Type of Consultation: neph Referring Provider: POP BOYCE MD 24 HR Interval Summary Free Text/Dictation patient looks better, sitting up in bed.... however, still has NOT had a thoracentesis, nor has he had any f/u CXR since 06/22/17 Exam/Review of Systems Vital Signs Vitals Vital Signs Date Time Temp Pulse Resp B/P Pulse Ox O2 Delivery O2 Flow Rate FiO2 06/25/17 08:20 97 06/25/17 07:51 98.2 20 112/53 100 06/25/17 06:26 Simple Mask 10.0 Intake and Output 06/24/17 06/24/17 06/25/17 14:59 22:59 06:59 Intake Total 300 ml 732 ml 450 ml Output Total 3300 ml Balance -3000 ml 732 ml 450 ml Exam Constitutional: alert, oriented Eyes: nl conjunctiva Neck: supple Respiratory: diminished breath sounds (L chest... no wheezes) Cardiovascular: regular rate and rhythm Gastrointestinal: nl liver, spleen, soft Extremities: edema (none... fxn AVF LUE) Results Result Diagram: 06/25/1752106/25/17521 Results 24 hrs Laboratory Tests Test 06/24/17 12:00 06/25/17 05:21 06/25/17 05:22 White Blood Count 6.1 # 5.5 Red Blood Count 2.98 L 2.94 L Hemoglobin 8.8 L 8.5 L Hematocrit 28.8 L 28.9 L Mean Corpuscular Volume 96.6 98.3 Mean Corpuscular Hemoglobin 29.5 28.9 L Mean Corpuscular Hemoglobin Concent 30.6 L 29.4 L Red Cell Distribution Width 16.8 H 16.9 H Platelet Count 163 141 Mean Platelet Volume 10.2 10.2 Neutrophils % 79.4 H 67.6 Lymphocytes % 10.3 L 17.9 Monocytes % 7.0 9.6 Eosinophils % 2.3 4.2 Basophils % 0.5 0.5 Nucleated Red Blood Cells % 0.0 0.0 Neutrophils # (Manual) 4.9 3.7 Lymphocytes # 0.6 L 1.0 Monocytes # 0.4 0.5 Eosinophils # 0.1 0.2 Basophils # 0.0 0.0 Nucleated Red Blood Cells # 0.0 0.0 Sodium Level 136 136 Potassium Level 3.5 3.9 Chloride Level 95 L 97 Carbon Dioxide Level 33 H 31 Anion Gap 12 12 Blood Urea Nitrogen 16 # 33 #H Creatinine 2.08 #H 4.42 #H Glucose Level 101 100 Calcium Level 9.3 9.2 Troponin I 3.750 *H Random Vancomycin Level 15.6 Phosphorus Level 3.4 Medications Medications Current Medications Allopurinol (Zyloprim) 100 mg DAILY PO Last administered on 06/24/17 12:42; Admin Dose 100 MG; Start 06/23/17 at 09:00 Alprazolam (Xanax) 0.25 mg QHS PRN PO ANXIETY Last administered on 06/22/17 18: 32; Admin Dose 0.25 MG; Start 06/22/17 at 16:00 Aspirin (Halfprin) 81 mg QHS PO Last administered on 06/24/17 20:46; Admin Dose 81 MG; Start 06/22/17 at 21:00 Atorvastatin Calcium (Lipitor) 40 mg QHS PO Last administered on 06/24/17 20:47 ; Admin Dose 40 MG; Start 06/22/17 at 21:00 Clopidogrel Bisulfate (plaVIX) 75 mg QHS PO Last administered on 06/24/17 20:46 ; Admin Dose 75 MG; Start 06/22/17 at 21:00 Docusate Sodium (Colace) 100 mg BID PO Last administered on 06/24/17 20:46; Admin Dose 100 MG; Start 06/22/17 at 21:00 Acetaminophen/ Hydrocodone Bitart ([place] (7.5-325)) 1 tab DAILY PRN PO SEVERE PAIN LEVEL 7-10 Last administered on 06/25/17 06:06; Admin Dose 1 TAB; Start 06/22/17 at 16:00 Losartan Potassium (Cozaar) 25 mg DAILY PO ; Start 06/23/17 at 09:00 Multivit/Ca Carb/ B Cmplx/FA/Prenat (Gi-Evelio) 1 tab DAILY PO Last administered on 06/24/17 12:40; Admin Dose 1 TAB; Start 06/23/17 at 09:00 Nitroglycerin (Nitroglycerin ([place])) 1 spray Q5M PRN TL CHEST PAIN; Start 06/22 at 16:00 Pantoprazole (Protonix Tab) 40 mg DAILY@06 PO Last administered on 06/25/17 06: 01; Admin Dose 40 MG; Start 06/23/17 at 06:00 Ranolazine (Ranexa) 500 mg Q12 PO Last administered on 06/24/17 20:46; Admin Dose 500 MG; Start 06/22/17 at 21:00 Ropinirole HCl (Requip) 0.5 mg TID PO Last administered on 06/24/17 20:46; Admin Dose 0.5 MG; Start 06/22/17 at 21:00 Zolpidem Tartrate (Ambien) 7.5 mg QHS PRN PO INSOMNIA Last administered on 21:56; Admin Dose 7.5 MG; Start 06/22/17 at 16:00 Acetaminophen 650 mg 650 mg Q6H PRN PO PAIN AND OR ELEVATED TEMP Last administered on 06/23/17 04:03; Admin Dose 650 MG; Start 06/23/17 at 04:00 Piperacillin Sod/ Tazobactam Sod 50 ml @ 100 mls/hr Q8 IVPB Last administered on 06/25/17 06:01; Admin Dose 100 MLS/HR; Start 06/23/17 at 14:00 Ferric Sodium Gluconate Complex/ Sodium Chloride (Ferrlecit/NS) 110 ml @ 110 mls/hr Q24H IVPB Last administered on 06/24/17t 12:43; Admin Dose 110 MLS/HR; Start 06/23/17 at 13:00; Stop 06/27/17 at 13:59 POP BOYCE MD Jun 25, 2017 08:57
[2017-06-25] MEDS: LOSARTAN 25 MG TAB PO SCH (09:00)
--- NOTE | 2017-06-25 09:54 | RADRPT ---
PROCEDURE: XR Chest. CLINICAL INDICATION: Pleural effusion TECHNIQUE: Single frontal view of the chest was obtained COMPARISON: 06/22/2017 FINDINGS: See impression. IMPRESSION: Interval decrease in size of the left pleural effusion, which is now small to moderate. There is pe rsistent atelectasis in the retrocardiac region and left lung base. Otherwise, no convincing interv al change compared to chest radiograph from 3 days prior. RPTAT: EE Connie Swanson Physician Date Time Electronically viewed and signed by Connie Swanson Physician on 06/25/2017 09:53 /
[2017-06-25] MEDS: ALLOPURINOL 100 MG TAB PO SCH (09:58)
[2017-06-25] MEDS: ROPINIROLE 0.25 MG TAB PO SCH ×3 (09:58→21:35)
[2017-06-25] MEDS: DOCUSATE SODIUM 100 MG CAP PO SCH ×2 (09:59→21:35)
[2017-06-25] MEDS: SEVELAMER 800 MG TAB PO SCH ×3 (09:59→18:05)
[2017-06-25] MEDS: MULTIVIT/CA CARB/B CMPLX/FA TAB PO SCH (09:59)
[2017-06-25] MEDS: RANOLAZINE (SR) 500 MG TAB PO SCH ×2 (10:04→21:35)
--- NOTE | 2017-06-25 10:21 | PN ---
Date/Time of Note Date/Time of Note DATE: 06/25/17 TIME: 10:18 Assessment/Plan VTE Prophylaxis VTE Prophylaxis Intervention: SCD's Lines/Catheters IV Catheter Type (from [facility]): [place] Urinary Cath still in place: No Assessment/Plan Assessment/Plan 1. NSTEMI: Troponin downtrending. This is likely from demand ischemia from sepsis. - Continue current cardiac medications including aspirin and Plavix as well as antibiotic for sepsis. Cardiology on board 2. Sepsis likely 2/2 to PNA: -Blood culture with staph aureus -Continue current antibiotic -Follow-up sensitivity 3. Large Pleural effusion: Repeat chest x-ray with improvement 4. Ischemic cardiomyopathy, with EF of 35%. C - ontinue current cardiac medications. A lot of cardiology recommendation 5. CAD,s/p stent placement -Troponin downtrending -Continue current cardiac medications and follow-up cardiology recommendations 6. ESRD s/p kidney transplant x2 now on HD -Nephrology managing Subjective 24 Hr Interval Summary Free Text/Dictation No acute events overnight. Patient denied chest pain Exam/Review of Systems Vital Signs Vitals Vital Signs Date Time Temp Pulse Resp B/P Pulse Ox O2 Delivery O2 Flow Rate FiO2 06/25/17 10:13 Simple Mask 6.0 06/25/17 08:20 97 06/25/17 07:51 98.2 20 112/53 100 Intake and Output 06/24/17 06/24/17 06/25/17 15:00 23:00 07:00 Intake Total 300 ml 732 ml 450 ml Output Total 3300 ml Balance -3000 ml 732 ml 450 ml Exam Constitutional: alert, oriented, well developed Head: atraumatic, normocephalic Eyes: EOMI Respiratory: clear to auscultation, normal air movement Cardiovascular: nl pulses, regular rate and rhythm Gastrointestinal: non-tender, soft Extremities: normal pulses Results Result Diagram: 06/25/1752106/25/17521 Results 24 hrs Laboratory Tests Test 06/24/17 12:00 06/25/17 05:21 06/25/17 05:22 White Blood Count 6.1 # 5.5 Red Blood Count 2.98 L 2.94 L Hemoglobin 8.8 L 8.5 L Hematocrit 28.8 L 28.9 L Mean Corpuscular Volume 96.6 98.3 Mean Corpuscular Hemoglobin 29.5 28.9 L Mean Corpuscular Hemoglobin Concent 30.6 L 29.4 L Red Cell Distribution Width 16.8 H 16.9 H Platelet Count 163 141 Mean Platelet Volume 10.2 10.2 Neutrophils % 79.4 H 67.6 Lymphocytes % 10.3 L 17.9 Monocytes % 7.0 9.6 Eosinophils % 2.3 4.2 Basophils % 0.5 0.5 Nucleated Red Blood Cells % 0.0 0.0 Neutrophils # (Manual) 4.9 3.7 Lymphocytes # 0.6 L 1.0 Monocytes # 0.4 0.5 Eosinophils # 0.1 0.2 Basophils # 0.0 0.0 Nucleated Red Blood Cells # 0.0 0.0 Sodium Level 136 136 Potassium Level 3.5 3.9 Chloride Level 95 L 97 Carbon Dioxide Level 33 H 31 Anion Gap 12 12 Blood Urea Nitrogen 16 # 33 #H Creatinine 2.08 #H 4.42 #H Glucose Level 101 100 Calcium Level 9.3 9.2 Troponin I 3.750 *H 2.220 *H Random Vancomycin Level 15.6 Phosphorus Level 3.4 Medications Medications Current Medications Allopurinol (Zyloprim) 100 mg DAILY PO Last administered on 06/25/17 09:58; Admin Dose 100 MG; Start 06/23/17 at 09:00 Alprazolam (Xanax) 0.25 mg QHS PRN PO ANXIETY Last administered on 06/22/17 18: 32; Admin Dose 0.25 MG; Start 06/22/17 at 16:00 Aspirin (Halfprin) 81 mg QHS PO Last administered on 06/24/17 20:46; Admin Dose 81 MG; Start 06/22/17 at 21:00 Atorvastatin Calcium (Lipitor) 40 mg QHS PO Last administered on 06/24/17 20:47 ; Admin Dose 40 MG; Start 06/22/17 at 21:00 Clopidogrel Bisulfate (plaVIX) 75 mg QHS PO Last administered on 06/24/17 20:46 ; Admin Dose 75 MG; Start 06/22/17 at 21:00 Docusate Sodium (Colace) 100 mg BID PO Last administered on 06/25/17 09:59; Admin Dose 100 MG; Start 06/22/17 at 21:00 Acetaminophen/ Hydrocodone Bitart ([place] (7.5-325)) 1 tab DAILY PRN PO SEVERE PAIN LEVEL 7-10 Last administered on 06/25/17 06:06; Admin Dose 1 TAB; Start 06/22/17 at 16:00 Losartan Potassium (Cozaar) 25 mg DAILY PO ; Start 06/23/17 at 09:00 Multivit/Ca Carb/ B Cmplx/FA/Prenat (Gi-Evelio) 1 tab DAILY PO Last administered on 06/25/17 09:59; Admin Dose 1 TAB; Start 06/23/17 at 09:00 Nitroglycerin (Nitroglycerin ([place])) 1 spray Q5M PRN TL CHEST PAIN; Start 06/22 at 16:00 Pantoprazole (Protonix Tab) 40 mg DAILY@06 PO Last administered on 06/25/17 06: 01; Admin Dose 40 MG; Start 06/23/17 at 06:00 Ranolazine (Ranexa) 500 mg Q12 PO Last administered on 06/25/17 10:04; Admin Dose 500 MG; Start 06/22/17 at 21:00 Ropinirole HCl (Requip) 0.5 mg TID PO Last administered on 06/25/17 09:58; Admin Dose 0.5 MG; Start 06/22/17 at 21:00 Zolpidem Tartrate (Ambien) 7.5 mg QHS PRN PO INSOMNIA Last administered on 21:56; Admin Dose 7.5 MG; Start 06/22/17 at 16:00 Acetaminophen 650 mg 650 mg Q6H PRN PO PAIN AND OR ELEVATED TEMP Last administered on 06/23/17 04:03; Admin Dose 650 MG; Start 06/23/17 at 04:00 Piperacillin Sod/ Tazobactam Sod 50 ml @ 100 mls/hr Q8 IVPB Last administered on 06/25/17 06:01; Admin Dose 100 MLS/HR; Start 06/23/17 at 14:00 Ferric Sodium Gluconate Complex 125 mg/Sodium Chloride 110 ml @ 110 mls/hr Q24H IVPB Last administered on 06/24/17 12:43; Admin Dose 110 MLS/HR; Start 06/23/17 at 13:00; Stop 06/27/17 at 13:59 Vancomycin HCl (Vancocin) 250 ml @ 125 mls/hr ONCE ONCE IVPB ; Start 06/25/17 at 22:00; Stop 06/25/17 at 23:59 ALEKSEY GANDARA MD Jun 25, 2017 10:21
[2017-06-25] MEDS: SOD FERRIC GLUC COMPLX 125 MG in SOD CHLORIDE 0.9% 100 ML IVPB SCH (12:21)
[2017-06-25 12:53] LABS: ABNORMAL IP MESSAGE 1; BASOPHILS % 0.4 % (0.0-2.0); EOSINOPHILS # 0.2 10^3/ul (0.0-0.5); HEMATOCRIT 29.5 % (42.0-52.0); HEMOGLOBIN 8.5 g/dl (14.0-18.0); MEAN CORPUSCULAR HEMOGLOBIN 28.3 pg (29.0-33.0); MEAN CORPUSCULAR HGB CONC 28.8 g/dl (32.0-37.0); MEAN CORPUSCULAR VOLUME 98.3 fl (82.0-101.0); MEAN PLATELET VOLUME 10.4 fl (7.4-10.4); MONOCYTE # 0.5 10^3/ul (0.3-0.9); MONOCYTES % 9.5 % (0.0-11.0); NEUTROPHILS % 66.7 % (39.0-77.0); PLATELET COUNT 141 10^3/UL (140-415); POSITIVE DIFF @See below; RED CELL DISTRIBUTION WIDTH 16.9 % (11.5-14.5); WHITE BLOOD COUNT 5.1 10^3/ul (4.8-10.8)
[2017-06-25 13:02] LABS: INR 1.08; PT RATIO 1.1
[2017-06-25 13:03] LABS: PARTIAL THROMBOPLASTIN TIME 44.4 Sec (25.0-35.0)
--- NOTE | 2017-06-25 14:12 | CONS ---
Date/Time of Note Date/Time of Note DATE: 06/25/17 TIME: 14:07 Assessment/Plan Assessment/Plan Chief Complaint/Hosp Course ASSESSMENT: 1. 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 will cont medical mgmt. fo now, pt cp free. lvef remains depressed on echo, but no acute changes. cont asa, plavix. pt on heparin gtt earlier, but off for thoracentesis. consider LHC given elevated troponin, but pt hesitant and down trending. can reassess after thoracentesis and clearance of blood cx. 2. ICM- LVEF 30-35%, s/p BiV ICD, chronic NYHA III on home o2 3. Acute on Chronic diastolic+systolic heart failure - fluid mgmt with iHD. has L pleural effusion though ? infectious. 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 5. Hyperlipidemia. 6. CAD- s/p many previous PCI. known [employer] ostial LCx with L/R-L collaterals. [employer] branch of D1 with l-l collaterals . patent lad/Diag stents. distal RCA disease s/p PCI 11/2016 7. Fever, leukocytosis- concern for pna with effusion with now staph bacteremia. will need monitoring for fever, repeat blood cx given risk of infection of biv icd device. no obvious veg on echo, consider ANTWON if recurrent fevers or repeat bcx +. Impression: - con asa 81mg daily - cont plavix 75 mg daily - ok to hold losartan if bp unable to tolerate - cont statin - cont dialysis per renal - pt intolerant of bb/nitrate previously - reassess for LHC after thora, blood cx clear Problems: Consultation Date/Type/Reason Admit Date/Time Jun 22, 2017 at 14:58 Initial Consult Date 06/23/2017 Type of Consultation: neph Referring Provider: POP BOYCE MD 24 HR Interval Summary Free Text/Dictation no acute events. pt denies any current chest pain. breathing stable, remains on face mask though. pt without palp, dizziness. no thoracentesis done yesterday. has been off heparin. tele reviewed no events. Constitutional: no complaints Detailed Summary Eyes: no complaints ENT: no complaints Respiratory: shortness of breath Cardiovascular: no complaints Gastrointestinal: no complaints Exam/Review of Systems Vital Signs Vitals Vital Signs Date Time Temp Pulse Resp B/P Pulse Ox O2 Delivery O2 Flow Rate FiO2 06/25/17 12:22 92 06/25/17 11:47 97.7 20 130/67 100 06/25/17 10:13 Simple Mask 6.0 Intake and Output 06/24/17 06/24/17 06/25/17 15:00 23:00 07:00 Intake Total 300 ml 732 ml 450 ml Output Total 3300 ml Balance -3000 ml 732 ml 450 ml Exam Constitutional: alert, oriented Psych: normal mood Head: normocephalic Eyes: nl conjunctiva ENMT: nl external ears & nose Neck: jvd, supple Respiratory: decreased bs L side posterior Cardiovascular: regular rate and rhythm, ii/vi broderick rusb. No edema Gastrointestinal: soft Ext: L fistula + thrill Results Result Diagram: 06/25/17 1200 06/25/17 0522 Results 24 hrs Laboratory Tests Test 06/25/17 05:21 06/25/17 05:22 06/25/17 12:00 Random Vancomycin Level 15.6 White Blood Count 5.5 5.1 Red Blood Count 2.94 L 3.00 L Hemoglobin 8.5 L 8.5 L Hematocrit 28.9 L 29.5 L Mean Corpuscular Volume 98.3 98.3 Mean Corpuscular Hemoglobin 28.9 L 28.3 L Mean Corpuscular Hemoglobin Concent 29.4 L 28.8 L Red Cell Distribution Width 16.9 H 16.9 H Platelet Count 141 141 Mean Platelet Volume 10.2 10.4 Neutrophils % 67.6 66.7 Lymphocytes % 17.9 20.0 Monocytes % 9.6 9.5 Eosinophils % 4.2 3.0 Basophils % 0.5 0.4 Nucleated Red Blood Cells % 0.0 0.0 Neutrophils # (Manual) 3.7 3.4 Lymphocytes # 1.0 1.0 Monocytes # 0.5 0.5 Eosinophils # 0.2 0.2 Basophils # 0.0 0.0 Nucleated Red Blood Cells # 0.0 0.0 Sodium Level 136 Potassium Level 3.9 Chloride Level 97 Carbon Dioxide Level 31 Anion Gap 12 Blood Urea Nitrogen 33 #H Creatinine 4.42 #H Glucose Level 100 Calcium Level 9.2 Phosphorus Level 3.4 Troponin I 2.220 *H Prothrombin Time 14.0 Prothrombin Time Ratio 1.1 INR International Normalized Ratio 1.08 Activated Partial Thromboplast Time 44.4 H Medications Medications Current Medications Allopurinol (Zyloprim) 100 mg DAILY PO Last administered on 06/25/17 09:58; Admin Dose 100 MG; Start 06/23/17 at 09:00 Alprazolam (Xanax) 0.25 mg QHS PRN PO ANXIETY Last administered on 06/22/17 18: 32; Admin Dose 0.25 MG; Start 06/22/17 at 16:00 Aspirin (Halfprin) 81 mg QHS PO Last administered on 06/24/17 20:46; Admin Dose 81 MG; Start 06/22/17 at 21:00 Atorvastatin Calcium (Lipitor) 40 mg QHS PO Last administered on 06/24/17 20:47 ; Admin Dose 40 MG; Start 06/22/17 at 21:00 Clopidogrel Bisulfate (plaVIX) 75 mg QHS PO Last administered on 06/24/17 20:46 ; Admin Dose 75 MG; Start 06/22/17 at 21:00 Docusate Sodium (Colace) 100 mg BID PO Last administered on 06/25/17 09:59; Admin Dose 100 MG; Start 06/22/17 at 21:00 Acetaminophen/ Hydrocodone Bitart ([place] (7.5-325)) 1 tab DAILY PRN PO SEVERE PAIN LEVEL 7-10 Last administered on 06/25/17 06:06; Admin Dose 1 TAB; Start 06/22/17 at 16:00 Losartan Potassium (Cozaar) 25 mg DAILY PO ; Start 06/23/17 at 09:00 Multivit/Ca Carb/ B Cmplx/FA/Prenat (Gi-Evelio) 1 tab DAILY PO Last administered on 06/25/17 09:59; Admin Dose 1 TAB; Start 06/23/17 at 09:00 Nitroglycerin (Nitroglycerin ([place])) 1 spray Q5M PRN TL CHEST PAIN; Start 06/22 at 16:00 Pantoprazole (Protonix Tab) 40 mg DAILY@06 PO Last administered on 06/25/17 06: 01; Admin Dose 40 MG; Start 06/23/17 at 06:00 Ranolazine (Ranexa) 500 mg Q12 PO Last administered on 06/25/17 10:04; Admin Dose 500 MG; Start 06/22/17 at 21:00 Ropinirole HCl (Requip) 0.5 mg TID PO Last administered on 06/25/17 12:21; Admin Dose 0.5 MG; Start 06/22/17 at 21:00 Zolpidem Tartrate (Ambien) 7.5 mg QHS PRN PO INSOMNIA Last administered on 21:56; Admin Dose 7.5 MG; Start 06/22/17 at 16:00 Acetaminophen 650 mg 650 mg Q6H PRN PO PAIN AND OR ELEVATED TEMP Last administered on 06/23/17 04:03; Admin Dose 650 MG; Start 06/23/17 at 04:00 Piperacillin Sod/ Tazobactam Sod 50 ml @ 100 mls/hr Q8 IVPB Last administered on 06/25/17 06:01; Admin Dose 100 MLS/HR; Start 06/23/17 at 14:00 Ferric Sodium Gluconate Complex 125 mg/Sodium Chloride 110 ml @ 110 mls/hr Q24H IVPB Last administered on 06/25/17 12:21; Admin Dose 110 MLS/HR; Start 06/23/17 at 13:00; Stop 06/27/17 at 13:59 Vancomycin HCl (Vancocin) 250 ml @ 125 mls/hr ONCE ONCE IVPB ; Start 06/25/17 at 22:00; Stop 06/25/17 at 23:59 Procedures Procedures imaging reports reviewed in emr SUSANA VASQUEZ Jun 25, 2017 14:12
[2017-06-25] MEDS ORDERED: LIDOCAINE 1% (MPF) 5 ML VIAL ONE (19:03)
[2017-06-25 19:32] LABS: FLD MN% 61.3 %; FLD PMN% 38.7 %; FLD RBC 0 /uL; FLD WBC 62 /cmm
[2017-06-25 19:39] LABS: FLUID GLUCOSE 109 mg/dl; FLUID TOTAL PROTEIN 3.1 g/dl
[2017-06-25 19:40] LABS: FLUID TYPE THORACENTESIS FLUID
--- NOTE | 2017-06-25 19:53 | RADRPT ---
PROCEDURE: XR Chest. CLINICAL INDICATION: Post left thoracentesis TECHNIQUE: Single frontal view of the chest was obtained. COMPARISON: Earlier examination of the same day FINDINGS: The cardiomediastinal silhouette is moderately enlarged. Pulmonary vasculature is prominent and michael stinct. There is a small left pleural effusion. There is no visualized pneumothorax. There is a righ t chest pacemaker. There is moderate to prominent aortic calcification.. The osseous structures and soft tissues are unremarkable. There is a right arm vascular stent. IMPRESSION: 1. Moderate cardiomegaly. 2. Small left pleural effusion, decreased. No visualized pneumothorax. 3. Mild to moderate pulmonary edema. Right chest pacemaker. 4. Prominent aortic calcification. RPTAT: HBST .Carlos Raymundo MD, Date Time Electronically viewed and signed by .Carlos Raymundo MD, on 06/25/2017 19:53 .T/
--- NOTE | 2017-06-25 19:57 | RADRPT ---
PROCEDURE: Ultrasound guided thoracentesis CLINICAL INDICATION: Pleural effusion. COMPARISON: Radiograph 06/25/2017 PRE-PROCEDURE CONSIDERATIONS: Pre-procedure labs including coagulation parameters were within accept able limits. Pre-procedure imaging was available and reviewed. CONSENT: Informed consent was obtained from the patient by Dr. Eric Rolle. The indications for the procedure, alternative options, attendant risks, and potential complications were discussed in [id number] and all questions were answered. A universal time-out was performed to verify the correct patien t, procedure, and position. Allergies and other precautions were reviewed. OPERATING PHYSICIAN: Dr. Eric Rolle who was present for the entirety of the procedure. DEVICES: 19-gauge Yueh needle MEDICATIONS ADMINSTERED: 1% Lidocaine 3 mL, subcutaneous TECHNIQUE: The chest was scanned and a site of entry was selected and marked. Hand hygiene was perf ormed. Sterile gloves and mask were donned. Cutaneous anti-sepsis was obtained with 1% Chlorhexidine . The left lower chest was prepped and draped in the usual sterile fashion. Local anesthetic was pro vided. A needle was introduced into the peritoneal space and was connected to a vacuum drainage princess le via sterile tubing. A total of 1400 mL clear yellow fluid was drained. The needle was removed, he mostasis was achieved, and a sterile dressing was placed. COMPLICATIONS: No immediate complications at the conclusion of the procedure. FINDINGS: Moderate amount of left pleural effusion. IMPRESSION: 1. Technically successful ultrasound guided thoracentesis. 2. 1400 mL clear yellow fluid was drained. 3. A sample was sent to the lab for analysis. RPTAT: [facility] Luís Rolle Physician Date Time Electronically viewed and signed by Luís Rolle Physician on 06/25/2017 19:57 LG/
[2017-06-25 20:38] LABS: FLD TYPE THORACENTHESIS
[2017-06-25 20:39] LABS: FLD CLARITY CLEAR; FLD COLOR YELLOW
[2017-06-25] MEDS: ATORVASTATIN 40 MG TAB PO SCH (21:35)
[2017-06-25] MEDS: ZOLPIDEM 5 MG TAB PO PRN (21:35)
[2017-06-25] MEDS: ASPIRIN (EC) 81 MG TAB PO SCH (21:35)
[2017-06-25] MEDS: CLOPIDOGREL 75 MG TAB PO SCH (21:35)
[2017-06-25] MEDS ORDERED: VANCOMYCIN 1 GM in NS 250 ML IVPB ONE (22:00)
[2017-06-26] VITALS (21 sets, daily range): BP systolic 112–145; BP diastolic 52–78; PULSE 81–103; RESP 12–20
[2017-06-26] MEDS ORDERED: morphine 2 MG INJ IV ONE (03:00)
[2017-06-26] MEDS ORDERED: morphine 2 MG INJ ONE (03:02)
[2017-06-26] MEDS: PIPER-TAZO 2.25 GM (PMX) 50 ML IVPB SCH (05:54)
[2017-06-26] MEDS: PANTOPRAZOLE (EC) 40 MG TAB PO SCH (05:54)
--- NOTE | 2017-06-26 08:01 | CONS ---
Date/Time of Note Date/Time of Note DATE: 06/26/17 TIME: 07:55 Assessment/Plan Assessment/Plan Additional Assessment/Plan 1. CKD sec to DM, to be HD today. 2. Left pleural effusion was tapped yesterday, analysis->transudate with markedly abnl lung exam, ? undelying pneumonia, on vanco, I asked ID to see and ordered CT chest 3. DM, sugars are acceptable. 4. Abnl heart exam, ?? new m and or rub, rev with cardiology, concern re endocarditis 5. Elev troponin, significance, new injury, rev with cards and ? cont heparin. 6. Labs ordered today Consultation Date/Type/Reason Admit Date/Time Jun 22, 2017 at 14:58 Type of Consultation: neph Referring Provider: POP BOYCE MD Detailed Summary Respiratory: cough (is mild and not productive), shortness of breath (mild) Cardiovascular: chest pain (across lower chest and upper abdomen, inc with deep inspiration) Gastrointestinal: No nausea, No vomiting Genitourinary: no complaints Exam/Review of Systems Vital Signs Vitals Vital Signs Date Time Temp Pulse Resp B/P Pulse Ox O2 Delivery O2 Flow Rate FiO2 06/26/17 07:43 97.5 86 20 126/69 100 06/26/17 02:04 6.0 06/25/17 20:00 Simple Mask Intake and Output 06/25/17 06/25/17 06/26/17 15:00 23:00 07:00 Intake Total 150 ml 450 ml Balance 150 ml 450 ml Exam Neck: jvd (is present) Respiratory: other (rhonchi and rales are present right lower lung>left) Cardiovascular: regular rate and rhythm, systolic murmur (2-3/6 cooing and ? rub) Gastrointestinal: soft, tender, No hepatomegaly, No splenomegaly Extremities: No edema Results Result Diagram: 06/25/17 1200 06/25/17 0522 Results 24 hrs Laboratory Tests Test 06/25/17 12:00 06/25/17 18:30 White Blood Count 5.1 Red Blood Count 3.00 L Hemoglobin 8.5 L Hematocrit 29.5 L Mean Corpuscular Volume 98.3 Mean Corpuscular Hemoglobin 28.3 L Mean Corpuscular Hemoglobin Concent 28.8 L Red Cell Distribution Width 16.9 H Platelet Count 141 Mean Platelet Volume 10.4 Neutrophils % 66.7 Lymphocytes % 20.0 Monocytes % 9.5 Eosinophils % 3.0 Basophils % 0.4 Nucleated Red Blood Cells % 0.0 Neutrophils # (Manual) 3.4 Lymphocytes # 1.0 Monocytes # 0.5 Eosinophils # 0.2 Basophils # 0.0 Nucleated Red Blood Cells # 0.0 Prothrombin Time 14.0 Prothrombin Time Ratio 1.1 INR International Normalized Ratio 1.08 Activated Partial Thromboplast Time 44.4 H Body Fluid Type THORACENTESIS FLUID Body Fluid Volume 850.0 Body Fluid Color YELLOW Body Fluid Appearance CLEAR Body Fluid WBC 62 Body Fluid RBC (Auto) 0 Body Fluid Polynuclear WBCs (%) 38.7 Body Fluid Mononuclear Cells % Auto 61.3 Body Fluid Glucose 109 Body Fluid Total Protein 3.1 Medications Medications Current Medications Allopurinol (Zyloprim) 100 mg DAILY PO Last administered on 06/25/17 09:58; Admin Dose 100 MG; Start 06/23/17 at 09:00 Alprazolam (Xanax) 0.25 mg QHS PRN PO ANXIETY Last administered on 06/22/17 18: 32; Admin Dose 0.25 MG; Start 06/22/17 at 16:00 Aspirin (Halfprin) 81 mg QHS PO Last administered on 06/25/17 21:35; Admin Dose 81 MG; Start 06/22/17 at 21:00 Atorvastatin Calcium (Lipitor) 40 mg QHS PO Last administered on 06/25/17 21:35 ; Admin Dose 40 MG; Start 06/22/17 at 21:00 Clopidogrel Bisulfate (plaVIX) 75 mg QHS PO Last administered on 06/25/17 21:35 ; Admin Dose 75 MG; Start 06/22/17 at 21:00 Docusate Sodium (Colace) 100 mg BID PO Last administered on 06/25/17 21:35; Admin Dose 100 MG; Start 06/22/17 at 21:00 Acetaminophen/ Hydrocodone Bitart ([place] (7.5-325)) 1 tab DAILY PRN PO SEVERE PAIN LEVEL 7-10 Last administered on 06/25/17 19:25; Admin Dose 1 TAB; Start 06/22/17 at 16:00 Losartan Potassium (Cozaar) 25 mg DAILY PO ; Start 06/23/17 at 09:00 Multivit/Ca Carb/ B Cmplx/FA/Prenat (Gi-Evelio) 1 tab DAILY PO Last administered on 06/25/17 09:59; Admin Dose 1 TAB; Start 06/23/17 at 09:00 Nitroglycerin (Nitroglycerin ([place])) 1 spray Q5M PRN TL CHEST PAIN; Start 06/22 at 16:00 Pantoprazole (Protonix Tab) 40 mg DAILY@06 PO Last administered on 06/26/17 05: 54; Admin Dose 40 MG; Start 06/23/17 at 06:00 Ranolazine (Ranexa) 500 mg Q12 PO Last administered on 06/25/17 21:35; Admin Dose 500 MG; Start 06/22/17 at 21:00 Ropinirole HCl (Requip) 0.5 mg TID PO Last administered on 06/25/17 21:35; Admin Dose 0.5 MG; Start 06/22/17 at 21:00 Zolpidem Tartrate (Ambien) 7.5 mg QHS PRN PO INSOMNIA Last administered on 21:35; Admin Dose 7.5 MG; Start 06/22/17 at 16:00 Acetaminophen 650 mg 650 mg Q6H PRN PO PAIN AND OR ELEVATED TEMP Last administered on 06/23/17 04:03; Admin Dose 650 MG; Start 06/23/17 at 04:00 Piperacillin Sod/ Tazobactam Sod 50 ml @ 100 mls/hr Q8 IVPB Last administered on 06/26/17 05:54; Admin Dose 100 MLS/HR; Start 06/23/17 at 14:00 Ferric Sodium Gluconate Complex/ Sodium Chloride (Ferrlecit/NS) 110 ml @ 110 mls/hr Q24H IVPB Last administered on 06/25/17 12:21; Admin Dose 110 MLS/HR; Start 06/23/17 at 13:00; Stop 06/27/17 at 13:59 ALONZO SERRA MD Jun 26, 2017 08:01
--- NOTE | 2017-06-26 08:35 | CONS ---
Date/Time of Note Date/Time of Note DATE: 06/26/17 TIME: 08:26 Assessment/Plan Assessment/Plan Chief Complaint/Hosp Course ASSESSMENT: 1. 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 will cont medical mgmt. lvef remains depressed on echo, but no acute changes. cont asa, plavix. consider LHC given elevated troponin, but pt refusing. will recheck trop 2. ICM- LVEF 30-35%, s/p BiV ICD, chronic NYHA III on home o2 3. Acute on Chronic diastolic+systolic heart failure - fluid mgmt with iHD. 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 5. Hyperlipidemia. 6. CAD- s/p many previous PCI. known STATIC BALANCER ostial LCx with L/R-L collaterals. STATIC BALANCER branch of D1 with l-l collaterals . patent lad/Diag stents. distal RCA disease s/p PCI 11/2016 7. Fever, leukocytosis- concern for pna with effusion with now staph bacteremia. fever/leukocytosis. resolved. repeat blood cx given risk of infection of biv icd device. no obvious veg on echo, consider ANTWON if recurrent fevers or repeat bcx +. 8. ? rub on exam- has had this finding on/off in the past. no effusion on echo. could consider valerie heart cath to eval for constriction, but pt declines at this time Impression: - con asa 81mg daily - cont plavix 75 mg daily - cont losartan - pt intolerant of bb/nitrate previously - cont statin - cont dialysis per renal - pt declines heart cath -repeat troponin, blood cx. - f/u thora cultures Problems: Consultation Date/Type/Reason Admit Date/Time Jun 22, 2017 at 14:58 Initial Consult Date 06/23/2017 Type of Consultation: neph Referring Provider: POP BOYCE MD 24 HR Interval Summary Free Text/Dictation pt s/p thoracentesis yest, had 850 cc out protein > 3 on studies. cultures pending. pt reports pain with deep breaths L side after thoracentesis. sometimes on R side as well. sob unchanged. no pnd, orthopnea, edema tele reviewed: paced rhythm Detailed Summary Eyes: no complaints ENT: no complaints Respiratory: pain, shortness of breath Cardiovascular: chest pain Gastrointestinal: no complaints Exam/Review of Systems Vital Signs Vitals Vital Signs Date Time Temp Pulse Resp B/P Pulse Ox O2 Delivery O2 Flow Rate FiO2 06/26/17 07:43 97.5 86 20 126/69 100 06/26/17 02:04 6.0 06/25/17 20:00 Simple Mask Intake and Output 06/25/17 06/25/17 06/26/17 15:00 23:00 07:00 Intake Total 150 ml 450 ml Balance 150 ml 450 ml Exam Constitutional: alert, oriented Psych: normal mood Head: normocephalic Eyes: nl conjunctiva ENMT: nl external ears & nose Neck: jvd, supple Respiratory: decreased bs L side posterior Cardiovascular: regular rate and rhythm, ii/vi broderick rusb. +rub No edema Gastrointestinal: soft Ext: L fistula + thrill Results Result Diagram: 06/25/17 1200 06/25/17 0522 Results 24 hrs Laboratory Tests Test 06/25/17 12:00 06/25/17 18:30 White Blood Count 5.1 Red Blood Count 3.00 L Hemoglobin 8.5 L Hematocrit 29.5 L Mean Corpuscular Volume 98.3 Mean Corpuscular Hemoglobin 28.3 L Mean Corpuscular Hemoglobin Concent 28.8 L Red Cell Distribution Width 16.9 H Platelet Count 141 Mean Platelet Volume 10.4 Neutrophils % 66.7 Lymphocytes % 20.0 Monocytes % 9.5 Eosinophils % 3.0 Basophils % 0.4 Nucleated Red Blood Cells % 0.0 Neutrophils # (Manual) 3.4 Lymphocytes # 1.0 Monocytes # 0.5 Eosinophils # 0.2 Basophils # 0.0 Nucleated Red Blood Cells # 0.0 Prothrombin Time 14.0 Prothrombin Time Ratio 1.1 INR International Normalized Ratio 1.08 Activated Partial Thromboplast Time 44.4 H Body Fluid Type THORACENTESIS FLUID Body Fluid Volume 850.0 Body Fluid Color YELLOW Body Fluid Appearance CLEAR Body Fluid WBC 62 Body Fluid RBC (Auto) 0 Body Fluid Polynuclear WBCs (%) 38.7 Body Fluid Mononuclear Cells % Auto 61.3 Body Fluid Glucose 109 Body Fluid Total Protein 3.1 Medications Medications Current Medications Allopurinol (Zyloprim) 100 mg DAILY PO Last administered on 06/25/17t 09:58; Admin Dose 100 MG; Start 06/23/17 at 09:00 Alprazolam (Xanax) 0.25 mg QHS PRN PO ANXIETY Last administered on 06/22/17 18: 32; Admin Dose 0.25 MG; Start 06/22/17 at 16:00 Aspirin (Halfprin) 81 mg QHS PO Last administered on 06/25/17 21:35; Admin Dose 81 MG; Start 06/22/17 at 21:00 Atorvastatin Calcium (Lipitor) 40 mg QHS PO Last administered on 06/25/17 21:35 ; Admin Dose 40 MG; Start 06/22/17 at 21:00 Clopidogrel Bisulfate (plaVIX) 75 mg QHS PO Last administered on 06/25/17 21:35 ; Admin Dose 75 MG; Start 06/22/17 at 21:00 Docusate Sodium (Colace) 100 mg BID PO Last administered on 06/25/17 21:35; Admin Dose 100 MG; Start 06/22/17 at 21:00 Acetaminophen/ Hydrocodone Bitart ([place] (7.5-325)) 1 tab DAILY PRN PO SEVERE PAIN LEVEL 7-10 Last administered on 06/25/17 19:25; Admin Dose 1 TAB; Start 06/22/17 at 16:00 Losartan Potassium (Cozaar) 25 mg DAILY PO ; Start 06/23/17 at 09:00 Multivit/Ca Carb/ B Cmplx/FA/Prenat (Gi-Evelio) 1 tab DAILY PO Last administered on 06/25/17 09:59; Admin Dose 1 TAB; Start 06/23/17 at 09:00 Nitroglycerin (Nitroglycerin ([place])) 1 spray Q5M PRN TL CHEST PAIN; Start 06/22 at 16:00 Pantoprazole (Protonix Tab) 40 mg DAILY@06 PO Last administered on 06/26/17 05: 54; Admin Dose 40 MG; Start 06/23/17 at 06:00 Ranolazine (Ranexa) 500 mg Q12 PO Last administered on 06/25/17 21:35; Admin Dose 500 MG; Start 06/22/17 at 21:00 Ropinirole HCl (Requip) 0.5 mg TID PO Last administered on 06/25/17 21:35; Admin Dose 0.5 MG; Start 06/22/17 at 21:00 Zolpidem Tartrate (Ambien) 7.5 mg QHS PRN PO INSOMNIA Last administered on 21:35; Admin Dose 7.5 MG; Start 06/22/17 at 16:00 Acetaminophen 650 mg 650 mg Q6H PRN PO PAIN AND OR ELEVATED TEMP Last administered on 06/23/17 04:03; Admin Dose 650 MG; Start 06/23/17 at 04:00 Piperacillin Sod/ Tazobactam Sod 50 ml @ 100 mls/hr Q8 IVPB Last administered on 06/26/17 05:54; Admin Dose 100 MLS/HR; Start 06/23/17 at 14:00 Ferric Sodium Gluconate Complex/ Sodium Chloride (Ferrlecit/NS) 110 ml @ 110 mls/hr Q24H IVPB Last administered on 06/25/17 12:21; Admin Dose 110 MLS/HR; Start 06/23/17 at 13:00; Stop 06/27/17 at 13:59 Procedures Procedures cxr images reviewed, improved L pleural effusion. no ptx SUSANA VASQUEZ Jun 26, 2017 08:35
[2017-06-26] MEDS: LOSARTAN 25 MG TAB PO SCH (09:00)
[2017-06-26] MEDS: SEVELAMER 800 MG TAB PO SCH ×3 (12:00→18:05)
--- NOTE | 2017-06-26 12:04 | CONS ---
Date/Time of Note Date/Time of Note DATE: 06/26/17 TIME: 11:51 Assessment/Plan Assessment/Plan Chief Complaint/Hosp Course 1) MSSA bacteremia, no obvious skin source doubt lung is the source pt had no new pulmonary symptoms prior to dialysis on and pleural effusion does not show signs of infection and likely a transudate change vanco/zosyn to ancef when pt is ready for discharge likely vanco with dialsysis will be the way to go check 2d echo results repeat blood cx today with dialysis blood cx were done yesterday also 2)ESRD on HD 3) L pleural effusion minimal WBC and not PMN predominant protein level in fluid suggests this is transudative doubt pt has pneumonia 4) CAD with pacer 5) hx of CVA 6) hx of gout Problems: Consultation Date/Type/Reason Admit Date/Time Jun 22, 2017 at 14:58 Date of Consultation: Jun 26, 2017 Type of Consultation: ID Hx of Present Illness pt was admitted on 06/22 pt states that he got dialysis that day and his O2 tank ran out of oxygen and he developed SOB and chest discomfort Prior to dialysis there were no new symptoms such as F, C, NS. No new cough ( he has a chronic cough). He has SOB. No rashes, joint pains abd pain, N, V, D. He had thorancentesis done yesterday and since then he gets some bilateral chest discomfort with deep breathing Constitutional: no complaints Eyes: no complaints ENT: no complaints Respiratory: pain, shortness of breath Cardiovascular: chest pain Gastrointestinal: no complaints Genitourinary: no complaints Skin: No erythema, No rash Neurologic: No confusion, No dizziness Past Medical History ESRD, two failed kidney tx, CVA, CAD, cardiac stents, htn, hyperlipidemia, gout Past Surgical History cardiac stents and pacer Past Surgical Hx: other (pacemaker) Social History Alcohol Use: none Smoking Status: Never smoker Drug Use: none Exam/Review of Systems Vital Signs Vitals Vital Signs Date Time Temp Pulse Resp B/P Pulse Ox O2 Delivery O2 Flow Rate FiO2 06/26/17 11:31 98.2 86 20 127/68 96 06/26/17 09:53 Simple Mask 6.0 Intake and Output 06/25/17 06/25/17 06/26/17 15:00 23:00 07:00 Intake Total 150 ml 450 ml Balance 150 ml 450 ml Exam Constitutional: alert, oriented Eyes: nl sclera ENMT: mucosa pink and moist Respiratory: other (decreased BS at L base) Cardiovascular: regular rate and rhythm Gastrointestinal: non-tender, soft Extremities: other (no edema, stage one bed sore on coccyx, no open wound) Results Result Diagram: 06/25/17 1200 06/25/17 0522 Results 24 hrs Laboratory Tests Test 06/25/17 12:00 06/25/17 18:30 White Blood Count 5.1 Red Blood Count 3.00 L Hemoglobin 8.5 L Hematocrit 29.5 L Mean Corpuscular Volume 98.3 Mean Corpuscular Hemoglobin 28.3 L Mean Corpuscular Hemoglobin Concent 28.8 L Red Cell Distribution Width 16.9 H Platelet Count 141 Mean Platelet Volume 10.4 Neutrophils % 66.7 Lymphocytes % 20.0 Monocytes % 9.5 Eosinophils % 3.0 Basophils % 0.4 Nucleated Red Blood Cells % 0.0 Neutrophils # (Manual) 3.4 Lymphocytes # 1.0 Monocytes # 0.5 Eosinophils # 0.2 Basophils # 0.0 Nucleated Red Blood Cells # 0.0 Prothrombin Time 14.0 Prothrombin Time Ratio 1.1 INR International Normalized Ratio 1.08 Activated Partial Thromboplast Time 44.4 H Body Fluid Type THORACENTESIS FLUID Body Fluid Volume 850.0 Body Fluid Color YELLOW Body Fluid Appearance CLEAR Body Fluid WBC 62 Body Fluid RBC (Auto) 0 Body Fluid Polynuclear WBCs (%) 38.7 Body Fluid Mononuclear Cells % Auto 61.3 Body Fluid Glucose 109 Body Fluid Total Protein 3.1 Medications Medications Current Medications Allopurinol (Zyloprim) 100 mg DAILY PO Last administered on 06/25/17 09:58; Admin Dose 100 MG; Start 06/23/17 at 09:00 Alprazolam (Xanax) 0.25 mg QHS PRN PO ANXIETY Last administered on 06/22/17 18: 32; Admin Dose 0.25 MG; Start 06/22/17 at 16:00 Aspirin (Halfprin) 81 mg QHS PO Last administered on 06/25/17 21:35; Admin Dose 81 MG; Start 06/22/17 at 21:00 Atorvastatin Calcium (Lipitor) 40 mg QHS PO Last administered on 06/25/17 21:35 ; Admin Dose 40 MG; Start 06/22/17 at 21:00 Clopidogrel Bisulfate (plaVIX) 75 mg QHS PO Last administered on 06/25/17 21:35 ; Admin Dose 75 MG; Start 06/22/17 at 21:00 Docusate Sodium (Colace) 100 mg BID PO Last administered on 06/25/17 21:35; Admin Dose 100 MG; Start 06/22/17 at 21:00 Acetaminophen/ Hydrocodone Bitart ([place] (7.5-325)) 1 tab DAILY PRN PO SEVERE PAIN LEVEL 7-10 Last administered on 06/25/17 19:25; Admin Dose 1 TAB; Start 06/22/17 at 16:00 Losartan Potassium (Cozaar) 25 mg DAILY PO ; Start 06/23/17 at 09:00 Multivit/Ca Carb/ B Cmplx/FA/Prenat (Gi-Evelio) 1 tab DAILY PO Last administered on 06/25/17 09:59; Admin Dose 1 TAB; Start 06/23/17 at 09:00 Nitroglycerin (Nitroglycerin ([place])) 1 spray Q5M PRN TL CHEST PAIN; Start 06/22 at 16:00 Pantoprazole (Protonix Tab) 40 mg DAILY@06 PO Last administered on 06/26/17 05: 54; Admin Dose 40 MG; Start 06/23/17 at 06:00 Ranolazine (Ranexa) 500 mg Q12 PO Last administered on 06/25/17 21:35; Admin Dose 500 MG; Start 06/22/17 at 21:00 Ropinirole HCl (Requip) 0.5 mg TID PO Last administered on 06/25/17 21:35; Admin Dose 0.5 MG; Start 06/22/17 at 21:00 Zolpidem Tartrate (Ambien) 7.5 mg QHS PRN PO INSOMNIA Last administered on 21:35; Admin Dose 7.5 MG; Start 06/22/17 at 16:00 Acetaminophen 650 mg 650 mg Q6H PRN PO PAIN AND OR ELEVATED TEMP Last administered on 06/23/17 04:03; Admin Dose 650 MG; Start 06/23/17 at 04:00 Piperacillin Sod/ Tazobactam Sod 50 ml @ 100 mls/hr Q8 IVPB Last administered on 06/26/17 05:54; Admin Dose 100 MLS/HR; Start 06/23/17 at 14:00 Ferric Sodium Gluconate Complex/ Sodium Chloride ([place]errlecit/NS) 110 ml @ 110 mls/hr Q24H IVPB Last administered on 06/25/17 12:21; Admin Dose 110 MLS/HR; Start 06/23/17 at 13:00; Stop 06/27/17 at 13:59 GILA QUEZADA MD Jun 26, 2017 12:02
--- NOTE | 2017-06-26 12:20 | PN ---
Date/Time of Note Date/Time of Note DATE: 06/26/17 TIME: 12:16 Assessment/Plan VTE Prophylaxis VTE Prophylaxis Intervention: SCD's Lines/Catheters IV C[facility]ter Type (from [facility] [place] Urinary Cath still in place: No Assessment/Plan Assessment/Plan 1. NSTEMI: Troponin downtrending. This is likely from demand ischemia from sepsis. - Continue current cardiac medications including aspirin and Plavix as well as antibiotic for sepsis. Cardiology on board 2. Sepsis, unknown source, previously thought to be from possible PNA -Blood culture with staph aureus -Continue current antibiotic - ID following 3. Large Pleural effusion: - s/p thoracentesis, transudative - f/u culture results 4. Ischemic cardiomyopathy, with EF of 35%. AICD in place - continue current cardiac medications. f/u cardiology recommendation 5. CAD,s/p stent placement -Troponin downtrending -Continue current cardiac medications and follow-up cardiology recommendations 6. ESRD s/p kidney transplant x2 now on HD -Nephrology managing Subjective 24 Hr Interval Summary Free Text/Dictation Complained of generalized body pain . Exam/Review of Systems Vital Signs Vitals Vital Signs Date Time Temp Pulse Resp B/P Pulse Ox O2 Delivery O2 Flow Rate FiO2 06/26/17 11:40 84 06/26/17 11:31 98.2 20 127/68 96 06/26/17 09:53 Simple Mask 6.0 Intake and Output 06/25/17 06/25/17 06/26/17 15:00 23:00 07:00 Intake Total 150 ml 450 ml Balance 150 ml 450 ml Exam Exam Constitutional: alert, oriented, well developed Head: atraumatic, normocephalic Eyes: EOMI Respiratory: clear to auscultation, normal air movement Cardiovascular: nl pulses, regular rate and rhythm Gastrointestinal: non-tender, soft Extremities: normal pulses Results Result Diagram: 06/25/17 1200 06/25/17 0522 Results 24 hrs Laboratory Tests Test 06/25/17 18:30 Body Fluid Type THORACENTESIS FLUID Body Fluid Volume 850.0 Body Fluid Color YELLOW Body Fluid Appearance CLEAR Body Fluid WBC 62 Body Fluid RBC (Auto) 0 Body Fluid Polynuclear WBCs (%) 38.7 Body Fluid Mononuclear Cells % Auto 61.3 Body Fluid Glucose 109 Body Fluid Total Protein 3.1 Medications Medications Current Medications Allopurinol (Zyloprim) 100 mg DAILY PO Last administered on 06/25/17 09:58; Admin Dose 100 MG; Start 06/23/17 at 09:00 Aspirin (Halfprin) 81 mg QHS PO Last administered on 06/25/17 21:35; Admin Dose 81 MG; Start 06/22/17 at 21:00 Atorvastatin Calcium (Lipitor) 40 mg QHS PO Last administered on 06/25/17 21:35 ; Admin Dose 40 MG; Start 06/22/17 at 21:00 Clopidogrel Bisulfate (plaVIX) 75 mg QHS PO Last administered on 06/25/17 21:35 ; Admin Dose 75 MG; Start 06/22/17 at 21:00 Docusate Sodium (Colace) 100 mg BID PO Last administered on 06/25/17 21:35; Admin Dose 100 MG; Start 06/22/17 at 21:00 Acetaminophen/ Hydrocodone Bitart ([place] (7.5-325)) 1 tab DAILY PRN PO SEVERE PAIN LEVEL 7-10 Last administered on 06/25/17 19:25; Admin Dose 1 TAB; Start 06/22/17 at 16:00 Losartan Potassium (Cozaar) 25 mg DAILY PO ; Start 06/23/17 at 09:00 Multivit/Ca Carb/ B Cmplx/FA/Prenat (Gi-Evelio) 1 tab DAILY PO Last administered on 06/25/17 09:59; Admin Dose 1 TAB; Start 06/23/17 at 09:00 Nitroglycerin (Nitroglycerin ([place])) 1 spray Q5M PRN TL CHEST PAIN; Start 06/22 at 16:00 Pantoprazole (Protonix Tab) 40 mg DAILY@06 PO Last administered on 06/26/17 05: 54; Admin Dose 40 MG; Start 06/23/17 at 06:00 Ranolazine (Ranexa) 500 mg Q12 PO Last administered on 06/25/17 21:35; Admin Dose 500 MG; Start 06/22/17 at 21:00 Ropinirole HCl (Requip) 0.5 mg TID PO Last administered on 06/25/17 21:35; Admin Dose 0.5 MG; Start 06/22/17 at 21:00 Zolpidem Tartrate (Ambien) 7.5 mg QHS PRN PO INSOMNIA Last administered on 21:35; Admin Dose 7.5 MG; Start 06/22/17 at 16:00 Acetaminophen 650 mg 650 mg Q6H PRN PO PAIN AND OR ELEVATED TEMP Last administered on 06/23/17 04:03; Admin Dose 650 MG; Start 06/23/17 at 04:00 Ferric Sodium Gluconate Complex 125 mg/Sodium Chloride 110 ml @ 110 mls/hr Q24H IVPB Last administered on 06/25/17 12:21; Admin Dose 110 MLS/HR; Start 06/23/17 at 13:00; Stop 06/27/17 at 13:59 Cefazolin Sodium (Ancef 1 Gm/50 ml (Pmx)) 50 ml @ 100 mls/hr DAILY IVPB ; Start 06/26/17 at 12:30 Morphine Sulfate (morphine) 2 mg Q4H PRN IV pain; Start 06/26/17 at 12:30; Status UNV Morphine Sulfate (morphine) 2 mg Q4H PRN IV PAIN LEVEL 7-10; Start 06/26/17 at 12:30; Status UNV ALEKSEY GANDARA MD Jun 26, 2017 12:20
[2017-06-26] MEDS ORDERED: morphine 2 MG INJ IV PRN ×2 (12:30)
[2017-06-26 12:56] LABS: BASOPHILS % 0.6 % (0.0-2.0); EOSINOPHILS # 0.2 10^3/ul (0.0-0.5); EOSINOPHILS % 4.8 % (0.0-7.0); HEMATOCRIT 33.3 % (42.0-52.0); HEMOGLOBIN 9.9 g/dl (14.0-18.0); LYMPHOCYTES # 0.9 10^3/ul (0.8-2.9); MEAN CORPUSCULAR HEMOGLOBIN 28.5 pg (29.0-33.0); MEAN CORPUSCULAR HGB CONC 29.7 g/dl (32.0-37.0); MEAN PLATELET VOLUME 10.9 fl (7.4-10.4); MONOCYTE # 0.4 10^3/ul (0.3-0.9); MONOCYTES % 7.3 % (0.0-11.0); NEUTROPHILS % 67.9 % (39.0-77.0); PLATELET COUNT 166 10^3/UL (140-415); RED BLOOD COUNT 3.47 10^6/ul (4.70-6.10); RED CELL DISTRIBUTION WIDTH 16.8 % (11.5-14.5); WHITE BLOOD COUNT 4.8 10^3/ul (4.8-10.8)
[2017-06-26] MEDS: ROPINIROLE 0.25 MG TAB PO SCH ×3 (13:00→20:35)
[2017-06-26] MEDS ORDERED: morphine 4 MG/ML VIAL ONE (13:10)
[2017-06-26] MEDS: ALLOPURINOL 100 MG TAB PO SCH (13:12)
[2017-06-26] MEDS: MULTIVIT/CA CARB/B CMPLX/FA TAB PO SCH (13:12)
[2017-06-26] MEDS: RANOLAZINE (SR) 500 MG TAB PO SCH ×2 (13:12→20:32)
[2017-06-26] MEDS: DOCUSATE SODIUM 100 MG CAP PO SCH ×2 (13:13→20:32)
[2017-06-26] MEDS: CEFAZOLIN 1 GM/50 ML (PMX) 50 ML IVPB SCH (13:14)
[2017-06-26] MEDS: morphine 4 MG/ML VIAL IV PRN ×3 (13:15→20:40)
[2017-06-26 13:16] LABS: ALBUMIN 3.1 g/dl (3.3-4.9); ALBUMIN/GLOBULIN RATIO 0.96; BILIRUBIN,INDIRECT 0.1 mg/dl (0-1.1); BILIRUBIN,TOTAL 0.1 mg/dl (0.2-1.3); CREATININE 2.07 mg/dl (0.61-1.24); POTASSIUM 3.1 mmol/L (3.5-5.1); TOTAL PROTEIN 6.3 g/dl (6.1-8.1)
[2017-06-26] MEDS: SOD FERRIC GLUC COMPLX 125 MG in SOD CHLORIDE 0.9% 100 ML IVPB SCH (14:47)
[2017-06-26] MEDS ORDERED: morphine 4 MG/ML VIAL IV PRN (16:30)
--- NOTE | 2017-06-26 16:48 | RADRPT ---
PROCEDURE: CT Chest without IV contrast. CLINICAL INDICATION: Shortness of breath/dyspnea/cough. TECHNIQUE: CT scan of the chest was performed on a [address] scanner. The patient was scanned w ithout IV contrast. 2-D and sagittal and coronal reformatted images were obtained from the axial so urce images. Total radiation dose: Total CTDIvol: In 5 mGy. Total DLP: 515 mGy-cm. One or more of the following dose reduction techniques were used: automated exposure control, adjustment of the mA and/or kV acco rding to patient size, or use of iterative reconstruction technique. COMPARISON: Chest x-ray, 06/25/2017. FINDINGS: There is no acute infiltrates in the lungs. There is mild left pleural effusion with compressive at electasis of left lower lobe. There is mild right pleural effusion with compressive atelectasis of t he right lower lobe. No pneumothorax, pulmonary edema or pulmonary nodules are seen. The mediastinum is unremarkable without evidence for mass or lymphadenopathy. The central tracheobr onchial tree is unremarkable. The vascular structures of the mediastinum are normal in course and c aliber. The heart is somewhat enlarged without evidence for pericardial thickening or effusion. Th ere is calcification of the three-vessel coronary arteries.. The axillary regions, subpectoral regions, and supraclavicular regions are all unremarkable. There are small stones in the gallbladder on the partially visualized images. The adrenal glands are ced l. The surrounding osseous structures are unremarkable for mild degenerative spondylosis of the spi ne. No osteolytic or osteoblastic lesion is detected. IMPRESSION: 1. Mild pleural effusion bilaterally with compressive atelectasis of the both lower lobes. Superimp osing pneumonia cannot be excluded. 2. Mild cardiomegaly. Calcified atherosclerosis of the three-vessel coronary arteries. 3. Small stones in the gallbladder on the partially visualized images. RPTAT: GG .Lawrence Henry MD, Date Time Electronically viewed and signed by .Lawrence Henry MD, on 06/26/2017 16:48 .Y/
[2017-06-26] MEDS: ATORVASTATIN 40 MG TAB PO SCH (20:32)
[2017-06-26] MEDS: CLOPIDOGREL 75 MG TAB PO SCH (20:32)
[2017-06-26] MEDS: ASPIRIN (EC) 81 MG TAB PO SCH (20:32)
[2017-06-27] VITALS (12 sets, daily range): BP systolic 123–148; BP diastolic 63–75; PULSE 91–101; RESP 16–18
[2017-06-27] MEDS: PANTOPRAZOLE (EC) 40 MG TAB PO SCH (05:41)
[2017-06-27] MEDS ORDERED: DEXTROSE 50% 50 ML SYRINGE IV PRN ×2 (07:00)
[2017-06-27] MEDS ORDERED: GLUCAGON 1 MG INJ IM PRN (07:00)
[2017-06-27] MEDS ORDERED: GLUCOSE GEL 15 GRAM TUBE BUCCAL PRN (07:00)
[2017-06-27] MEDS ORDERED: GLUCOSE GEL 15 GRAM TUBE PO PRN ×2 (07:00)
[2017-06-27] MEDS: SEVELAMER 800 MG TAB PO SCH ×3 (08:00→17:13)
[2017-06-27] MEDS ORDERED: INSULIN ASPART [NOVOLOG] 3 ML PEN SC SCH (08:00)
[2017-06-27 08:25] LABS: BASOPHILS % 0.6 % (0.0-2.0); EOSINOPHILS # 0.2 10^3/ul (0.0-0.5); EOSINOPHILS % 4.1 % (0.0-7.0); HEMATOCRIT 33.1 % (42.0-52.0); HEMOGLOBIN 9.7 g/dl (14.0-18.0); LYMPHOCYTES # 1.2 10^3/ul (0.8-2.9); LYMPHOCYTES % 23.2 % (15.0-51.0); MEAN CORPUSCULAR HGB CONC 29.3 g/dl (32.0-37.0); MEAN CORPUSCULAR VOLUME 99.1 fl (82.0-101.0); MEAN PLATELET VOLUME 10.3 fl (7.4-10.4); MONOCYTE # 0.4 10^3/ul (0.3-0.9); MONOCYTES % 8.1 % (0.0-11.0); NEUTROPHILS % 63.4 % (39.0-77.0); PLATELET COUNT 149 10^3/UL (140-415); RED BLOOD COUNT 3.34 10^6/ul (4.70-6.10); RED CELL DISTRIBUTION WIDTH 16.7 % (11.5-14.5); WHITE BLOOD COUNT 5.3 10^3/ul (4.8-10.8)
[2017-06-27] MEDS: ALLOPURINOL 100 MG TAB PO SCH (08:31)
[2017-06-27] MEDS: RANOLAZINE (SR) 500 MG TAB PO SCH ×2 (08:31→20:55)
[2017-06-27] MEDS: MULTIVIT/CA CARB/B CMPLX/FA TAB PO SCH (08:32)
[2017-06-27] MEDS: DOCUSATE SODIUM 100 MG CAP PO SCH ×2 (08:32→20:55)
[2017-06-27] MEDS: LOSARTAN 25 MG TAB PO SCH (08:33)
[2017-06-27] MEDS: ROPINIROLE 0.25 MG TAB PO SCH ×3 (08:33→20:55)
[2017-06-27] MEDS: CEFAZOLIN 1 GM/50 ML (PMX) 50 ML IVPB SCH (08:33)
[2017-06-27 08:43] LABS: CALCIUM 9.1 mg/dl (8.4-10.2); CREATININE 4.59 mg/dl (0.61-1.24); POTASSIUM 4.1 mmol/L (3.5-5.1)
--- NOTE | 2017-06-27 12:14 | CONS ---
Date/Time of Note Date/Time of Note DATE: 06/27/17 TIME: 12:11 Assessment/Plan Assessment/Plan Chief Complaint/Hosp Course 1) MSSA bacteremia, no obvious skin source doubt lung is the source pt had no new pulmonary symptoms prior to dialysis on and pleural effusion does not show signs of infection and likely a transudate change vanco/zosyn to ancef when pt is ready for discharge likely vanco with dialsysis will be the way to go check 2d echo results repeat blood cx today with dialysis blood cx were done yesterday also 06/27 - repeat blood cx remain NGTD continue with ancef await results of 2d echo but doubt he has SBE chest CT did not show pneumonia 2)ESRD on HD 3) L pleural effusion minimal WBC and not PMN predominant protein level in fluid suggests this is transudative doubt pt has pneumonia chest CT showed valerie effusions but no consolidation 4) CAD with pacer 5) hx of CVA 6) hx of gout Problems: Consultation Date/Type/Reason Admit Date/Time Jun 22, 2017 at 14:58 Initial Consult Date 06/26/17 Type of Consultation: ID Referring Provider: POP BOYCE MD 24 HR Interval Summary Free Text/Dictation pt has pain to chest with deep breathing or coughing no N, V, D Exam/Review of Systems Vital Signs Vitals Vital Signs Date Time Temp Pulse Resp B/P Pulse Ox O2 Delivery O2 Flow Rate FiO2 06/27/17 11:57 98.0 98 18 135/70 98 06/27/17 09:24 Mask 7.0 Intake and Output 06/26/17 06/26/17 06/27/17 15:00 23:00 07:00 Intake Total 400 ml 720 ml 450 ml Output Total 3000 ml Balance -2600 ml 720 ml 450 ml Exam Constitutional: alert, oriented Eyes: nl sclera ENMT: mucosa pink and moist Respiratory: clear to auscultation Cardiovascular: regular rate and rhythm Gastrointestinal: non-tender, soft Results Result Diagram: 06/27/17 0750 06/27/17 0751 Results 24 hrs Laboratory Tests Test 06/27/17 07:50 06/27/17 07:51 White Blood Count 5.3 Red Blood Count 3.34 L Hemoglobin 9.7 L Hematocrit 33.1 L Mean Corpuscular Volume 99.1 Mean Corpuscular Hemoglobin 29.0 Mean Corpuscular Hemoglobin Concent 29.3 L Red Cell Distribution Width 16.7 H Platelet Count 149 Mean Platelet Volume 10.3 Neutrophils % 63.4 Lymphocytes % 23.2 Monocytes % 8.1 Eosinophils % 4.1 Basophils % 0.6 Nucleated Red Blood Cells % 0.0 Neutrophils # (Manual) 3.4 Lymphocytes # 1.2 Monocytes # 0.4 Eosinophils # 0.2 Basophils # 0.0 Nucleated Red Blood Cells # 0.0 Sodium Level 136 Potassium Level 4.1 Chloride Level 97 Carbon Dioxide Level 32 H Anion Gap 11 Blood Urea Nitrogen 29 #H Creatinine 4.59 #H Glucose Level 79 # Calcium Level 9.1 Medications Medications Current Medications Allopurinol (Zyloprim) 100 mg DAILY PO Last administered on 06/27/17 08:31; Admin Dose 100 MG; Start 06/23/17 at 09:00 Aspirin (Halfprin) 81 mg QHS PO Last administered on 06/26/17 20:32; Admin Dose 81 MG; Start 06/22/17 at 21:00 Atorvastatin Calcium (Lipitor) 40 mg QHS PO Last administered on 06/26/17 20:32 ; Admin Dose 40 MG; Start 06/22/17 at 21:00 Clopidogrel Bisulfate (plaVIX) 75 mg QHS PO Last administered on 06/26/17 20:32 ; Admin Dose 75 MG; Start 06/22/17 at 21:00 Docusate Sodium (Colace) 100 mg BID PO Last administered on 06/27/17 08:32; Admin Dose 100 MG; Start 06/22/17 at 21:00 Acetaminophen/ Hydrocodone Bitart ([place] (7.5-325)) 1 tab DAILY PRN PO SEVERE PAIN LEVEL 7-10 Last administered on 06/25/17 19:25; Admin Dose 1 TAB; Start 06/22/17 at 16:00 Losartan Potassium (Cozaar) 25 mg DAILY PO ; Start 06/23/17 at 09:00 Multivit/Ca Carb/ B Cmplx/FA/Prenat (Gi-Evelio) 1 tab DAILY PO Last administered on 06/27/17 08:32; Admin Dose 1 TAB; Start 06/23/17 at 09:00 Nitroglycerin (Nitroglycerin ([place])) 1 spray Q5M PRN TL CHEST PAIN; Start 06/22 at 16:00 Pantoprazole (Protonix Tab) 40 mg DAILY@06 PO Last administered on 06/27/17 05: 41; Admin Dose 40 MG; Start 06/23/17 at 06:00 Ranolazine (Ranexa) 500 mg Q12 PO Last administered on 06/27/17 08:31; Admin Dose 500 MG; Start 06/22/17 at 21:00 Ropinirole HCl (Requip) 0.5 mg TID PO Last administered on 06/27/17 08:33; Admin Dose 0.5 MG; Start 06/22/17 at 21:00 Zolpidem Tartrate (Ambien) 7.5 mg QHS PRN PO INSOMNIA Last administered on 21:35; Admin Dose 7.5 MG; Start 06/22/17 at 16:00 Acetaminophen 650 mg 650 mg Q6H PRN PO PAIN AND OR ELEVATED TEMP Last administered on 06/23/17 04:03; Admin Dose 650 MG; Start 06/23/17 at 04:00 Ferric Sodium Gluconate Complex 125 mg/Sodium Chloride 110 ml @ 110 mls/hr Q24H IVPB Last administered on 06/26/17 14:47; Admin Dose 110 MLS/HR; Start 06/23/17 at 13:00; Stop 06/27/17 at 13:59 Cefazolin Sodium (Ancef 1 Gm/50 ml (Pmx)) 50 ml @ 100 mls/hr DAILY IVPB Last administered on 06/27/17 08:33; Admin Dose 100 MLS/HR; Start 06/26/17 at 12:30 Morphine Sulfate (morphine) 4 mg Q4H PRN IV PAIN LEVEL 7-10 Last administered on 06/26/17 20:40; Admin Dose 4 MG; Start 06/26/17 at 13:30 Miscellaneous Information 1 ea NOTE XX ; Start 06/27/17 at 07:00 Glucose (Glutose) 15 gm Q15M PRN PO DECREASED GLUCOSE; Start 06/27/17 at 07:00 Glucose (Glutose) 22.5 gm Q15M PRN PO DECREASED GLUCOSE; Start 06/27/17 at 07:00 Dextrose (D50w Syringe) 25 ml Q15M PRN IV DECREASED GLUCOSE; Start 06/27/17 at 07:00 Dextrose (D50w Syringe) 50 ml Q15M PRN IV DECREASED GLUCOSE; Start 06/27/17 at 07:00 Glucagon (Glucagen) 1 mg Q15M PRN IM DECREASED GLUCOSE; Start 06/27/17 at 07:00 Glucose (Glutose) 15 gm Q15M PRN BUCCAL DECREASED GLUCOSE; Start 06/27/17 at 07: 00 GILA QUEZADA MD Jun 27, 2017 12:14
[2017-06-27] MEDS: SOD FERRIC GLUC COMPLX 125 MG in SOD CHLORIDE 0.9% 100 ML IVPB SCH (12:36)
--- NOTE | 2017-06-27 15:15 | CONS ---
Date/Time of Note Date/Time of Note DATE: 06/27/17 TIME: 15:11 Assessment/Plan Assessment/Plan Additional Assessment/Plan ASSESSMENT: 1. 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 will cont medical mgmt. lvef remains depressed on echo, but no acute changes. cont asa, plavix. Pt does not want repeat coronary angiogram. Will treat medically. 2. ICM- LVEF 30-35%, s/p BiV ICD, chronic NYHA III on home o2 3. Acute on Chronic diastolic+systolic heart failure - fluid mgmt with iHD. has L pleural effusion s/p drainage 4 Chronic renal failure on dialysis failed to prior transplants per history. 5. Hyperlipidemia. 6. CAD- s/p many previous PCI. known PROPOSAL MANAGER ostial LCx with L/R-L collaterals. PROPOSAL MANAGER branch of D1 with l-l collaterals . patent lad/Diag stents. distal RCA disease s/p PCI 11/2016 7. Fever, leukocytosis- concern for pna with effusion with now staph bacteremia. fever/leukocytosis. resolved. repeat blood cx given risk of infection of biv icd device. no obvious veg on echo, consider ANTWON if recurrent fevers or repeat bcx + however his repeat cultures are so far negative Recommendations: - con asa 81mg daily and plavix 75 mg daily - cont losartan - pt intolerant of bb/nitrate previously - cont statin - cont dialysis per renal - pt declines heart cath - ECHO done on 06/24 without vegetations. - follow up on repeat culture Consultation Date/Type/Reason Admit Date/Time Jun 22, 2017 at 14:58 Initial Consult Date 06/26/17 Type of Consultation: Cardiology Referring Provider: POP BOYCE MD 24 HR Interval Summary Free Text/Dictation NO new complaints. Has pleuritic chest pain. NO angina and no increase in his SOB which recently has been slighlty worse than his baseline. Exam/Review of Systems Vital Signs Vitals Vital Signs Date Time Temp Pulse Resp B/P Pulse Ox O2 Delivery O2 Flow Rate FiO2 06/27/17 12:19 101 06/27/17 11:57 98.0 18 135/70 98 06/27/17 09:24 Mask 7.0 Intake and Output 06/26/17 06/26/17 06/27/17 15:00 23:00 07:00 Intake Total 400 ml 720 ml 450 ml Output Total 3000 ml Balance -2600 ml 720 ml 450 ml Exam Constitutional: alert, oriented, well developed Psych: no complaints Head: normocephalic Eyes: nl conjunctiva ENMT: nl external ears & nose Neck: jvd (8), supple Respiratory: other (coarse BS, no rales) Cardiovascular: S3, other (flow murmur), regular rate and rhythm Gastrointestinal: soft Neurological: DELINQUENT TAX COLLECTOR ASSISTANT II-XII intact Results Result Diagram: 06/27/17 0750 06/27/17 0751 Results 24 hrs Laboratory Tests Test 06/27/17 07:50 06/27/17 07:51 White Blood Count 5.3 Red Blood Count 3.34 L Hemoglobin 9.7 L Hematocrit 33.1 L Mean Corpuscular Volume 99.1 Mean Corpuscular Hemoglobin 29.0 Mean Corpuscular Hemoglobin Concent 29.3 L Red Cell Distribution Width 16.7 H Platelet Count 149 Mean Platelet Volume 10.3 Neutrophils % 63.4 Lymphocytes % 23.2 Monocytes % 8.1 Eosinophils % 4.1 Basophils % 0.6 Nucleated Red Blood Cells % 0.0 Neutrophils # (Manual) 3.4 Lymphocytes # 1.2 Monocytes # 0.4 Eosinophils # 0.2 Basophils # 0.0 Nucleated Red Blood Cells # 0.0 Sodium Level 136 Potassium Level 4.1 Chloride Level 97 Carbon Dioxide Level 32 H Anion Gap 11 Blood Urea Nitrogen 29 #H Creatinine 4.59 #H Glucose Level 79 # Calcium Level 9.1 Medications Medications Current Medications Allopurinol (Zyloprim) 100 mg DAILY PO Last administered on 06/27/17 08:31; Admin Dose 100 MG; Start 06/23/17 at 09:00 Aspirin (Halfprin) 81 mg QHS PO Last administered on 06/26/17 20:32; Admin Dose 81 MG; Start 06/22/17 at 21:00 Atorvastatin Calcium (Lipitor) 40 mg QHS PO Last administered on 06/26/17 20:32 ; Admin Dose 40 MG; Start 06/22/17 at 21:00 Clopidogrel Bisulfate (plaVIX) 75 mg QHS PO Last administered on 06/26/17 20:32 ; Admin Dose 75 MG; Start 06/22/17 at 21:00 Docusate Sodium (Colace) 100 mg BID PO Last administered on 06/27/17 08:32; Admin Dose 100 MG; Start 06/22/17 at 21:00 Acetaminophen/ Hydrocodone Bitart ([place] (7.5-325)) 1 tab DAILY PRN PO SEVERE PAIN LEVEL 7-10 Last administered on 06/25/17 19:25; Admin Dose 1 TAB; Start 06/22/17 at 16:00 Losartan Potassium (Cozaar) 25 mg DAILY PO ; Start 06/23/17 at 09:00 Multivit/Ca Carb/ B Cmplx/FA/Prenat (Gi-Evelio) 1 tab DAILY PO Last administered on 06/27/17 08:32; Admin Dose 1 TAB; Start 06/23/17 at 09:00 Nitroglycerin (Nitroglycerin ([place])) 1 spray Q5M PRN TL CHEST PAIN; Start 06/22 at 16:00 Pantoprazole (Protonix Tab) 40 mg DAILY@06 PO Last administered on 06/27/17 05: 41; Admin Dose 40 MG; Start 06/23/17 at 06:00 Ranolazine (Ranexa) 500 mg Q12 PO Last administered on 06/27/17 08:31; Admin Dose 500 MG; Start 06/22/17 at 21:00 Ropinirole HCl (Requip) 0.5 mg TID PO Last administered on 06/27/17 12:30; Admin Dose 0.5 MG; Start 06/22/17 at 21:00 Zolpidem Tartrate (Ambien) 7.5 mg QHS PRN PO INSOMNIA Last administered on 21:35; Admin Dose 7.5 MG; Start 06/22/17 at 16:00 Acetaminophen 650 mg 650 mg Q6H PRN PO PAIN AND OR ELEVATED TEMP Last administered on 06/23/17 04:03; Admin Dose 650 MG; Start 06/23/17 at 04:00 Cefazolin Sodium (Ancef 1 Gm/50 ml (Pmx)) 50 ml @ 100 mls/hr DAILY IVPB Last administered on 06/27/17 08:33; Admin Dose 100 MLS/HR; Start 06/26/17 at 12:30 Morphine Sulfate (morphine) 4 mg Q4H PRN IV PAIN LEVEL 7-10 Last administered on 9/8/17at 20:40; Admin Dose 4 MG; Start 06/26/17 at 13:30 Miscellaneous Information 1 ea NOTE XX ; Start 06/27/17 at 07:00 Glucose (Glutose) 15 gm Q15M PRN PO DECREASED GLUCOSE; Start 06/27/17 at 07:00 Glucose (Glutose) 22.5 gm Q15M PRN PO DECREASED GLUCOSE; Start 06/27/17 at 07:00 Dextrose (D50w Syringe) 25 ml Q15M PRN IV DECREASED GLUCOSE; Start 06/27/17 at 07:00 Dextrose (D50w Syringe) 50 ml Q15M PRN IV DECREASED GLUCOSE; Start 06/27/17 at 07:00 Glucagon (Glucagen) 1 mg Q15M PRN IM DECREASED GLUCOSE; Start 06/27/17 at 07:00 Glucose (Glutose) 15 gm Q15M PRN BUCCAL DECREASED GLUCOSE; Start 06/27/17 at 07: 00 APRIL DINH MD Jun 27, 2017 15:15
--- NOTE | 2017-06-27 15:47 | PN ---
Date/Time of Note Date/Time of Note DATE: 06/27/17 TIME: 15:45 Assessment/Plan VTE Prophylaxis VTE Prophylaxis Intervention: SCD's Lines/Catheters IV Catheter Type (from Nrs): Saline Lock Urinary Cath still in place: No Assessment/Plan Assessment/Plan 71 yo M with ESRD on HD sent from HD center for SOB and chest pain, found to have L sided pleural effusion and sepsis from MSSA bacteremia. #sepsis from MSSA bacteremia: source possibly HD access per ID -cont ancef, length of therapy to be determined by ID -pt with 48 hours of clear blood cultures -TTE without vegetation #pleural effusion: sp drainage. low protein consistent with transudate, possibly 2/2 pt's chronic systolic HF #chronic systolic HF/ICM, NSTEMI from sepsis -cardiology following -pt refused LHC -cont cardiac meds #ESRD on HD -renal following given pt with negative blood cultures, unclear what is keeping him in the hospital. will downgrade to tele and talk to consultants in the AM Subjective 24 Hr Interval Summary Free Text/Dictation Lots of complaints. Exam/Review of Systems Vital Signs Vitals Vital Signs Date Time Temp Pulse Resp B/P Pulse Ox O2 Delivery O2 Flow Rate FiO2 06/27/17 12:19 101 06/27/17 11:57 98.0 18 135/70 98 06/27/17 09:24 Mask 7.0 Intake and Output 06/26/17 06/26/17 06/27/17 15:00 23:00 07:00 Intake Total 400 ml 720 ml 450 ml Output Total 3000 ml Balance -2600 ml 720 ml 450 ml Exam nad no mrg lungs clear abd soft no rashes Results Result Diagram: 06/27/17 0750 06/27/17 0751 Results 24 hrs Laboratory Tests Test 06/27/17 07:50 06/27/17 07:51 White Blood Count 5.3 Red Blood Count 3.34 L Hemoglobin 9.7 L Hematocrit 33.1 L Mean Corpuscular Volume 99.1 Mean Corpuscular Hemoglobin 29.0 Mean Corpuscular Hemoglobin Concent 29.3 L Red Cell Distribution Width 16.7 H Platelet Count 149 Mean Platelet Volume 10.3 Neutrophils % 63.4 Lymphocytes % 23.2 Monocytes % 8.1 Eosinophils % 4.1 Basophils % 0.6 Nucleated Red Blood Cells % 0.0 Neutrophils # (Manual) 3.4 Lymphocytes # 1.2 Monocytes # 0.4 Eosinophils # 0.2 Basophils # 0.0 Nucleated Red Blood Cells # 0.0 Sodium Level 136 Potassium Level 4.1 Chloride Level 97 Carbon Dioxide Level 32 H Anion Gap 11 Blood Urea Nitrogen 29 #H Creatinine 4.59 #H Glucose Level 79 # Calcium Level 9.1 Medications Medications Current Medications Allopurinol (Zyloprim) 100 mg DAILY PO Last administered on 06/27/17 08:31; Admin Dose 100 MG; Start 06/23/17 at 09:00 Aspirin (Halfprin) 81 mg QHS PO Last administered on 06/26/17 20:32; Admin Dose 81 MG; Start 06/22/17 at 21:00 Atorvastatin Calcium (Lipitor) 40 mg QHS PO Last administered on 06/26/17 20:32 ; Admin Dose 40 MG; Start 06/22/17 at 21:00 Clopidogrel Bisulfate (plaVIX) 75 mg QHS PO Last administered on 06/26/17 20:32 ; Admin Dose 75 MG; Start 06/22/17 at 21:00 Docusate Sodium (Colace) 100 mg BID PO Last administered on 06/27/17 08:32; Admin Dose 100 MG; Start 06/22/17 at 21:00 Acetaminophen/ Hydrocodone Bitart ([place] (7.5-325)) 1 tab DAILY PRN PO SEVERE PAIN LEVEL 7-10 Last administered on 06/25/17 19:25; Admin Dose 1 TAB; Start 06/22/17 at 16:00 Losartan Potassium (Cozaar) 25 mg DAILY PO ; Start 06/23/17 at 09:00 Multivit/Ca Carb/ B Cmplx/FA/Prenat (Gi-Evelio) 1 tab DAILY PO Last administered on 06/27/17 08:32; Admin Dose 1 TAB; Start 06/23/17 at 09:00 Nitroglycerin (Nitroglycerin ([place])) 1 spray Q5M PRN TL CHEST PAIN; Start 06/22 at 16:00 Pantoprazole (Protonix Tab) 40 mg DAILY@06 PO Last administered on 06/27/17 05: 41; Admin Dose 40 MG; Start 06/23/17 at 06:00 Ranolazine (Ranexa) 500 mg Q12 PO Last administered on 06/27/17 08:31; Admin Dose 500 MG; Start 06/22/17 at 21:00 Ropinirole HCl (Requip) 0.5 mg TID PO Last administered on 06/27/17 12:30; Admin Dose 0.5 MG; Start 06/22/17 at 21:00 Zolpidem Tartrate (Ambien) 7.5 mg QHS PRN PO INSOMNIA Last administered on 21:35; Admin Dose 7.5 MG; Start 06/22/17 at 16:00 Acetaminophen 650 mg 650 mg Q6H PRN PO PAIN AND OR ELEVATED TEMP Last administered on 06/23/17 04:03; Admin Dose 650 MG; Start 06/23/17 at 04:00 Cefazolin Sodium (Ancef 1 Gm/50 ml (Pmx)) 50 ml @ 100 mls/hr DAILY IVPB Last administered on 06/27/17 08:33; Admin Dose 100 MLS/HR; Start 06/26/17 at 12:30 Morphine Sulfate (morphine) 4 mg Q4H PRN IV PAIN LEVEL 7-10 Last administered on 06/26/17 20:40; Admin Dose 4 MG; Start 06/26/17 at 13:30 Miscellaneous Information 1 ea NOTE XX ; Start 06/27/17 at 07:00 Glucose (Glutose) 15 gm Q15M PRN PO DECREASED GLUCOSE; Start 06/27/17 at 07:00 Glucose (Glutose) 22.5 gm Q15M PRN PO DECREASED GLUCOSE; Start 06/27/17 at 07:00 Dextrose (D50w Syringe) 25 ml Q15M PRN IV DECREASED GLUCOSE; Start 06/27/17 at 07:00 Dextrose (D50w Syringe) 50 ml Q15M PRN IV DECREASED GLUCOSE; Start 06/27/17 at 07:00 Glucagon (Glucagen) 1 mg Q15M PRN IM DECREASED GLUCOSE; Start 06/27/17 at 07:00 Glucose (Glutose) 15 gm Q15M PRN BUCCAL DECREASED GLUCOSE; Start 06/27/17 at 07: 00 SHADY NICOLE MD Jun 27, 2017 15:47 00 SHADY NICOLE MD Jun 27, 2017 15:47
--- NOTE | 2017-06-27 17:41 | CONS ---
Date/Time of Note Date/Time of Note DATE: 06/27/17 TIME: 17:38 Assessment/Plan Assessment/Plan Additional Assessment/Plan 1. 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 will cont medical mgmt. lvef remains depressed on echo, but no acute changes. cont asa, plavix. Pt does not want repeat coronary angiogram. cont medical managment 2. ICM- LVEF 30-35%, s/p BiV ICD, chronic NYHA III on home o2 . cont hd qod for now 3. Acute on Chronic diastolic+systolic heart failure - fluid mgmt with iHD. has L pleural effusion s/p drainage 4 esrd: s/p hd yesterday. hd in am 5. Hyperlipidemia: on meds 6. Fever, leukocytosis- concern for pna with effusion with now staph bacteremia. resolved. repeat blood cx given risk of infection of biv icd device. no obvious veg on echo, consider ANTWON if recurrent fevers or repeat bcx + however his repeat cultures are so far negative 7-anemia: on epogen prn Consultation Date/Type/Reason Admit Date/Time Jun 22, 2017 at 14:58 Initial Consult Date 06/26/17 Type of Consultation: Cardiology Referring Provider: POP BOYCE MD 24 HR Interval Summary Free Text/Dictation doing poorly. states he has pain everywhere and chronic sob. does not want another cath Exam/Review of Systems Vital Signs Vitals Vital Signs Date Time Temp Pulse Resp B/P Pulse Ox O2 Delivery O2 Flow Rate FiO2 06/27/17 17:17 Mask 7.0 06/27/17 16:26 91 06/27/17 16:19 98.0 18 137/66 98 Intake and Output 06/26/17 06/26/17 06/27/17 15:00 23:00 07:00 Intake Total 400 ml 720 ml 450 ml Output Total 3000 ml Balance -2600 ml 720 ml 450 ml Exam Constitutional: alert, oriented Psych: no complaints Head: atraumatic, normocephalic Neck: non-tender, supple Respiratory: clear to auscultation, diminished breath sounds Cardiovascular: edema, nl pulses, regular rate and rhythm Gastrointestinal: non-tender, soft Results Result Diagram: 06/27/17 0750 06/27/17 0751 Results 24 hrs Laboratory Tests Test 06/27/17 07:50 06/27/17 07:51 White Blood Count 5.3 Red Blood Count 3.34 L Hemoglobin 9.7 L Hematocrit 33.1 L Mean Corpuscular Volume 99.1 Mean Corpuscular Hemoglobin 29.0 Mean Corpuscular Hemoglobin Concent 29.3 L Red Cell Distribution Width 16.7 H Platelet Count 149 Mean Platelet Volume 10.3 Neutrophils % 63.4 Lymphocytes % 23.2 Monocytes % 8.1 Eosinophils % 4.1 Basophils % 0.6 Nucleated Red Blood Cells % 0.0 Neutrophils # (Manual) 3.4 Lymphocytes # 1.2 Monocytes # 0.4 Eosinophils # 0.2 Basophils # 0.0 Nucleated Red Blood Cells # 0.0 Sodium Level 136 Potassium Level 4.1 Chloride Level 97 Carbon Dioxide Level 32 H Anion Gap 11 Blood Urea Nitrogen 29 #H Creatinine 4.59 #H Glucose Level 79 # Calcium Level 9.1 Medications Medications Current Medications Allopurinol (Zyloprim) 100 mg DAILY PO Last administered on 06/27/17 08:31; Admin Dose 100 MG; Start 06/23/17 at 09:00 Aspirin (Halfprin) 81 mg QHS PO Last administered on 06/26/17 20:32; Admin Dose 81 MG; Start 06/22/17 at 21:00 Atorvastatin Calcium (Lipitor) 40 mg QHS PO Last administered on 06/26/17 20:32 ; Admin Dose 40 MG; Start 06/22/17 at 21:00 Clopidogrel Bisulfate (plaVIX) 75 mg QHS PO Last administered on 06/26/17 20:32 ; Admin Dose 75 MG; Start 06/22/17 at 21:00 Docusate Sodium (Colace) 100 mg BID PO Last administered on 06/27/17 08:32; Admin Dose 100 MG; Start 06/22/17 at 21:00 Acetaminophen/ Hydrocodone Bitart ([place] (7.5-325)) 1 tab DAILY PRN PO SEVERE PAIN LEVEL 7-10 Last administered on 06/25/17 19:25; Admin Dose 1 TAB; Start 06/22/17 at 16:00 Losartan Potassium (Cozaar) 25 mg DAILY PO ; Start 06/23/17 at 09:00 Multivit/Ca Carb/ B Cmplx/FA/Prenat (Gi-Evelio) 1 tab DAILY PO Last administered on 06/27/17 08:32; Admin Dose 1 TAB; Start 06/23/17 at 09:00 Nitroglycerin (Nitroglycerin ([place])) 1 spray Q5M PRN TL CHEST PAIN; Start 06/22 at 16:00 Pantoprazole (Protonix Tab) 40 mg DAILY@06 PO Last administered on 06/27/17 05: 41; Admin Dose 40 MG; Start 06/23/17 at 06:00 Ranolazine (Ranexa) 500 mg Q12 PO Last administered on 06/27/17 08:31; Admin Dose 500 MG; Start 06/22/17 at 21:00 Ropinirole HCl (Requip) 0.5 mg TID PO Last administered on 06/27/17 12:30; Admin Dose 0.5 MG; Start 06/22/17 at 21:00 Zolpidem Tartrate (Ambien) 7.5 mg QHS PRN PO INSOMNIA Last administered on 21:35; Admin Dose 7.5 MG; Start 06/22/17 at 16:00 Acetaminophen 650 mg 650 mg Q6H PRN PO PAIN AND OR ELEVATED TEMP Last administered on 06/23/17 04:03; Admin Dose 650 MG; Start 06/23/17 at 04:00 Cefazolin Sodium (Ancef 1 Gm/50 ml (Pmx)) 50 ml @ 100 mls/hr DAILY IVPB Last administered on 06/27/17 08:33; Admin Dose 100 MLS/HR; Start 06/26/17 at 12:30 Morphine Sulfate (morphine) 4 mg Q4H PRN IV PAIN LEVEL 7-10 Last administered on 06/26/17 20:40; Admin Dose 4 MG; Start 06/26/17 at 13:30 MARY LOU OVALLE MD Jun 27, 2017 17:41
[2017-06-27] MEDS: CLOPIDOGREL 75 MG TAB PO SCH (20:55)
[2017-06-27] MEDS: ASPIRIN (EC) 81 MG TAB PO SCH (20:55)
[2017-06-27] MEDS: ATORVASTATIN 40 MG TAB PO SCH (20:55)
[2017-06-27] MEDS: ZOLPIDEM 5 MG TAB PO PRN (20:56)
[2017-06-27] MEDS: ALBUTEROL/IPRATROPIUM (NEB) 3 ML AMP HHN PRN (21:29)
[2017-06-28] VITALS (11 sets, daily range): BP systolic 110–162; BP diastolic 59–81; PULSE 79–85; RESP 18–20
[2017-06-28] MEDS ORDERED: ACCU-CHEK XX SCH ×2 (02:00)
[2017-06-28] MEDS: PANTOPRAZOLE (EC) 40 MG TAB PO SCH (05:28)
[2017-06-28 08:54] LABS: BASOPHIL # 0.1 10^3/ul (0.0-0.1); BASOPHILS % 0.7 % (0.0-2.0); EOSINOPHILS # 0.3 10^3/ul (0.0-0.5); EOSINOPHILS % 4.3 % (0.0-7.0); HEMATOCRIT 31.2 % (42.0-52.0); HEMOGLOBIN 9.5 g/dl (14.0-18.0); LYMPHOCYTES # 1.5 10^3/ul (0.8-2.9); MEAN CORPUSCULAR HEMOGLOBIN 29.8 pg (29.0-33.0); MEAN CORPUSCULAR HGB CONC 30.4 g/dl (32.0-37.0); MEAN CORPUSCULAR VOLUME 97.8 fl (82.0-101.0); MEAN PLATELET VOLUME 10.3 fl (7.4-10.4); MONOCYTE # 0.6 10^3/ul (0.3-0.9); PLATELET COUNT 201 10^3/UL (140-415); RED BLOOD COUNT 3.19 10^6/ul (4.70-6.10); RED CELL DISTRIBUTION WIDTH 16.8 % (11.5-14.5); WHITE BLOOD COUNT 7.2 10^3/ul (4.8-10.8)
[2017-06-28] MEDS: LOSARTAN 25 MG TAB PO SCH (09:00)
[2017-06-28 09:20] LABS: ALBUMIN 2.8 g/dl (3.3-4.9); ALBUMIN/GLOBULIN RATIO 0.87; CALCIUM 8.9 mg/dl (8.4-10.2); CREATININE 5.81 mg/dl (0.61-1.24); POTASSIUM 4.1 mmol/L (3.5-5.1)
[2017-06-28] MEDS ORDERED: ALBUMIN HUMAN 25% 100 ML IV ONE (09:30)
--- NOTE | 2017-06-28 10:20 | CONS ---
Date/Time of Note Date/Time of Note DATE: 06/28/17 TIME: 10:14 Assessment/Plan Assessment/Plan Chief Complaint/Hosp Course 1) MSSA bacteremia, no obvious skin source doubt lung is the source pt had no new pulmonary symptoms prior to dialysis on and pleural effusion does not show signs of infection and likely a transudate change vanco/zosyn to ancef when pt is ready for discharge likely vanco with dialsysis will be the way to go check 2d echo results repeat blood cx today with dialysis blood cx were done yesterday also 06/27 - repeat blood cx remain NGTD continue with ancef await results of 2d echo but doubt he has SBE chest CT did not show pneumonia 06/28 - no vegetations seen on 2d echo doubt endocarditis ok to change to IV vanco thru 07/05 when pt is discharged vanco can be given with dialysis would also give 2 weeks of oral doxycycline after he is done with the IV vanco ( 100mg BID) 2)ESRD on HD 3) L pleural effusion minimal WBC and not PMN predominant protein level in fluid suggests this is transudative doubt pt has pneumonia chest CT showed valerie effusions but no consolidation 4) CAD with pacer 5) hx of CVA 6) hx of gout Problems: Consultation Date/Type/Reason Admit Date/Time Jun 22, 2017 at 14:58 Initial Consult Date 06/26/17 Type of Consultation: ID Referring Provider: POP BOYCE MD 24 HR Interval Summary Free Text/Dictation still has some pain with deep breathe or when he coughs but it is easing up no N, V, D no stools Exam/Review of Systems Vital Signs Vitals Vital Signs Date Time Temp Pulse Resp B/P Pulse Ox O2 Delivery O2 Flow Rate FiO2 06/28/17 08:43 8.0 06/28/17 08:00 98.6 95 20 162/78 98 06/27/17 21:30 Simple Mask Intake and Output 06/27/17 06/27/17 06/28/17 14:59 22:59 06:59 Intake Total 1390 ml 220 ml Balance 1390 ml 220 ml Exam Constitutional: alert, oriented Eyes: nl sclera ENMT: mucosa pink and moist Respiratory: clear to auscultation, other Cardiovascular: regular rate and rhythm Gastrointestinal: non-tender, soft Results Result Diagram: 06/28/17 0800 06/28/17 0800 Results 24 hrs Laboratory Tests Test 06/28/17 08:00 White Blood Count 7.2 # Red Blood Count 3.19 L Hemoglobin 9.5 L Hematocrit 31.2 L Mean Corpuscular Volume 97.8 Mean Corpuscular Hemoglobin 29.8 Mean Corpuscular Hemoglobin Concent 30.4 L Red Cell Distribution Width 16.8 H Platelet Count 201 # Mean Platelet Volume 10.3 Neutrophils % 65.0 Lymphocytes % 21.0 Monocytes % 8.0 Eosinophils % 4.3 Basophils % 0.7 Nucleated Red Blood Cells % 0.0 Neutrophils # (Manual) 4.7 Lymphocytes # 1.5 Monocytes # 0.6 Eosinophils # 0.3 Basophils # 0.1 Nucleated Red Blood Cells # 0.0 Sodium Level 136 Potassium Level 4.1 Chloride Level 99 Carbon Dioxide Level 26 Anion Gap 15 Blood Urea Nitrogen 37 H Creatinine 5.81 H Glucose Level 92 Calcium Level 8.9 Total Bilirubin 0.0 L Direct Bilirubin 0.00 Indirect Bilirubin 0.0 Aspartate Amino Transf (AST/SGOT) 15 Alanine Aminotransferase (ALT/SGPT) 14 Alkaline Phosphatase 140 H Total Protein 6.0 L Albumin 2.8 L Globulin 3.20 Albumin/Globulin Ratio 0.87 Medications Medications Current Medications Allopurinol (Zyloprim) 100 mg DAILY PO Last administered on 06/27/17 08:31; Admin Dose 100 MG; Start 06/23/17 at 09:00 Aspirin (Halfprin) 81 mg QHS PO Last administered on 06/27/17 20:55; Admin Dose 81 MG; Start 06/22/17 at 21:00 Atorvastatin Calcium (Lipitor) 40 mg QHS PO Last administered on 06/27/17 20:55 ; Admin Dose 40 MG; Start 06/22/17 at 21:00 Clopidogrel Bisulfate (plaVIX) 75 mg QHS PO Last administered on 06/27/17 20:55 ; Admin Dose 75 MG; Start 06/22/17 at 21:00 Docusate Sodium (Colace) 100 mg BID PO Last administered on 06/27/17 20:55; Admin Dose 100 MG; Start 06/22/17 at 21:00 Acetaminophen/ Hydrocodone Bitart ([place] (7.5-325)) 1 tab DAILY PRN PO SEVERE PAIN LEVEL 7-10 Last administered on 06/25/17 19:25; Admin Dose 1 TAB; Start 06/22/17 at 16:00 Losartan Potassium (Cozaar) 25 mg DAILY PO ; Start 06/23/17 at 09:00 Multivit/Ca Carb/ B Cmplx/FA/Prenat (Gi-Evelio) 1 tab DAILY PO Last administered on 06/27/17 08:32; Admin Dose 1 TAB; Start 06/23/17 at 09:00 Nitroglycerin (Nitroglycerin ([place])) 1 spray Q5M PRN TL CHEST PAIN; Start 06/22 at 16:00 Pantoprazole (Protonix Tab) 40 mg DAILY@06 PO Last administered on 06/28/17 05 :28; Admin Dose 40 MG; Start 06/23/17 at 06:00 Ranolazine (Ranexa) 500 mg Q12 PO Last administered on 06/27/17 20:55; Admin Dose 500 MG; Start 06/22/17 at 21:00 Ropinirole HCl (Requip) 0.5 mg TID PO Last administered on 06/27/17 20:55; Admin Dose 0.5 MG; Start 06/22/17 at 21:00 Zolpidem Tartrate (Ambien) 7.5 mg QHS PRN PO INSOMNIA Last administered on 20:56; Admin Dose 7.5 MG; Start 06/22/17 at 16:00 Acetaminophen 650 mg 650 mg Q6H PRN PO PAIN AND OR ELEVATED TEMP Last administered on 06/23/17 04:03; Admin Dose 650 MG; Start 06/23/17 at 04:00 Cefazolin Sodium (Ancef 1 Gm/50 ml (Pmx)) 50 ml @ 100 mls/hr DAILY IVPB Last administered on 06/27/17 08:33; Admin Dose 100 MLS/HR; Start 06/26/17 at 12:30 Morphine Sulfate 4 mg 4 mg Q4H PRN IV PAIN LEVEL 7-10 Last administered on 20:40; Admin Dose 4 MG; Start 06/26/17 at 13:30 Albumin Human (Albumin Human 25%) 100 ml @ 100 mls/hr ONCE ONCE IV Last administered on 06/28/17 09:47; Admin Dose 100 MLS/HR; Start 06/28/17 at 09:30 ; Stop 06/28/17 at 10:29 GILA QUEZADA MD Jun 28, 2017 10:20
[2017-06-28] MEDS ORDERED: BISACODYL (EC) 5 MG TAB PO PRN (10:30)
[2017-06-28] MEDS: ROPINIROLE 0.25 MG TAB PO SCH ×3 (11:31→20:10)
[2017-06-28] MEDS: RANOLAZINE (SR) 500 MG TAB PO SCH ×2 (11:31→20:10)
[2017-06-28] MEDS: CEFAZOLIN 1 GM/50 ML (PMX) 50 ML IVPB SCH (11:32)
[2017-06-28] MEDS: ALLOPURINOL 100 MG TAB PO SCH (11:32)
[2017-06-28] MEDS: MULTIVIT/CA CARB/B CMPLX/FA TAB PO SCH (11:32)
[2017-06-28] MEDS: DOCUSATE SODIUM 100 MG CAP PO SCH ×2 (11:32→20:10)
[2017-06-28] MEDS: SEVELAMER 800 MG TAB PO SCH ×3 (11:32→17:41)
--- NOTE | 2017-06-28 14:56 | CONS ---
Date/Time of Note Date/Time of Note DATE: 06/28/17 TIME: 14:54 Assessment/Plan Assessment/Plan Additional Assessment/Plan 1. 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 will cont medical mgmt. lvef remains depressed on echo, but no acute changes. cont asa, plavix. Pt does not want repeat coronary angiogram. cont medical managment 2. ICM- LVEF 30-35%, s/p BiV ICD, chronic NYHA III on home o2 . clinicaly compensated 3. Acute on Chronic diastolic+systolic heart failure - fluid mgmt with iHD. has L pleural effusion s/p drainage 4 esrd: s/p hd this am and scheduled again in am. usual schedule m/wf 5. Hyperlipidemia: on meds 6. Fever, resolved. repeat blood cx given risk of infection of biv icd device. no obvious veg on echo, consider ANTWON if recurrent fevers or repeat bcx + however his repeat cultures are so far negative 7-anemia: on epogen prn will likley be dc post hd in am if cleared by specialists. cont hd m/w/f Consultation Date/Type/Reason Admit Date/Time Jun 22, 2017 at 14:58 Initial Consult Date 06/26/17 Type of Consultation: ID Referring Provider: POP BOYCE MD 24 HR Interval Summary Free Text/Dictation feels ok. transferred to med surg. had hd uneventfully. wants to go home tomorrow after hd Exam/Review of Systems Vital Signs Vitals Vital Signs Date Time Temp Pulse Resp B/P Pulse Ox O2 Delivery O2 Flow Rate FiO2 06/28/17 14:22 98.1 91 18 125/60 93 06/28/17 08:43 8.0 06/28/17 08:00 Simple Mask Intake and Output 06/27/17 06/27/17 06/28/17 15:00 23:00 07:00 Intake Total 1390 ml 220 ml Balance 1390 ml 220 ml Exam Constitutional: alert, oriented Head: normocephalic Eyes: nl conjunctiva Neck: jvd, non-tender, supple Respiratory: diminished breath sounds Cardiovascular: edema, nl pulses, regular rate and rhythm Gastrointestinal: non-tender, soft Results Result Diagram: 06/28/17 0800 06/28/17 0800 Results 24 hrs Laboratory Tests Test 06/28/17 08:00 White Blood Count 7.2 # Red Blood Count 3.19 L Hemoglobin 9.5 L Hematocrit 31.2 L Mean Corpuscular Volume 97.8 Mean Corpuscular Hemoglobin 29.8 Mean Corpuscular Hemoglobin Concent 30.4 L Red Cell Distribution Width 16.8 H Platelet Count 201 # Mean Platelet Volume 10.3 Neutrophils % 65.0 Lymphocytes % 21.0 Monocytes % 8.0 Eosinophils % 4.3 Basophils % 0.7 Nucleated Red Blood Cells % 0.0 Neutrophils # (Manual) 4.7 Lymphocytes # 1.5 Monocytes # 0.6 Eosinophils # 0.3 Basophils # 0.1 Nucleated Red Blood Cells # 0.0 Sodium Level 136 Potassium Level 4.1 Chloride Level 99 Carbon Dioxide Level 26 Anion Gap 15 Blood Urea Nitrogen 37 H Creatinine 5.81 H Glucose Level 92 Calcium Level 8.9 Total Bilirubin 0.0 L Direct Bilirubin 0.00 Indirect Bilirubin 0.0 Aspartate Amino Transf (AST/SGOT) 15 Alanine Aminotransferase (ALT/SGPT) 14 Alkaline Phosphatase 140 H Total Protein 6.0 L Albumin 2.8 L Globulin 3.20 Albumin/Globulin Ratio 0.87 Medications Medications Current Medications Allopurinol (Zyloprim) 100 mg DAILY PO Last administered on 06/28/17 11:32; Admin Dose 100 MG; Start 06/23/17 at 09:00 Aspirin (Halfprin) 81 mg QHS PO Last administered on 06/27/17 20:55; Admin Dose 81 MG; Start 06/22/17 at 21:00 Atorvastatin Calcium (Lipitor) 40 mg QHS PO Last administered on 06/27/17 20:55 ; Admin Dose 40 MG; Start 06/22/17 at 21:00 Clopidogrel Bisulfate (plaVIX) 75 mg QHS PO Last administered on 06/27/17 20:55 ; Admin Dose 75 MG; Start 06/22/17 at 21:00 Docusate Sodium (Colace) 100 mg BID PO Last administered on 06/28/17 11:32; Admin Dose 100 MG; Start 06/22/17 at 21:00 Acetaminophen/ Hydrocodone Bitart ([place] (7.5-325)) 1 tab DAILY PRN PO SEVERE PAIN LEVEL 7-10 Last administered on 06/25/17 19:25; Admin Dose 1 TAB; Start 06/22/17 at 16:00 Losartan Potassium (Cozaar) 25 mg DAILY PO ; Start 06/23/17 at 09:00 Multivit/Ca Carb/ B Cmplx/FA/Prenat (Gi-Evelio) 1 tab DAILY PO Last administered on 06/28/17 11:32; Admin Dose 1 TAB; Start 06/23/17 at 09:00 Nitroglycerin (Nitroglycerin ([place])) 1 spray Q5M PRN TL CHEST PAIN; Start 06/22 at 16:00 Pantoprazole (Protonix Tab) 40 mg DAILY@06 PO Last administered on 06/28/17 05 :28; Admin Dose 40 MG; Start 06/23/17 at 06:00 Ranolazine (Ranexa) 500 mg Q12 PO Last administered on 06/28/17 11:31; Admin Dose 500 MG; Start 06/22/17 at 21:00 Ropinirole HCl (Requip) 0.5 mg TID PO Last administered on 06/28/17 12:33; Admin Dose 0.5 MG; Start 06/22/17 at 21:00 Zolpidem Tartrate (Ambien) 7.5 mg QHS PRN PO INSOMNIA Last administered on 20:56; Admin Dose 7.5 MG; Start 06/22/17 at 16:00 Acetaminophen 650 mg 650 mg Q6H PRN PO PAIN AND OR ELEVATED TEMP Last administered on 06/23/17 04:03; Admin Dose 650 MG; Start 06/23/17 at 04:00 Cefazolin Sodium (Ancef 1 Gm/50 ml (Pmx)) 50 ml @ 100 mls/hr DAILY IVPB Last administered on 06/28/17 11:32; Admin Dose 100 MLS/HR; Start 06/26/17 at 12:30 Morphine Sulfate (morphine) 4 mg Q4H PRN IV PAIN LEVEL 7-10 Last administered on 06/26/17 20:40; Admin Dose 4 MG; Start 06/26/17 at 13:30 Bisacodyl (Dulcolax) 10 mg DAILY PRN PO CONSTIPATION Last administered on 11:31; Admin Dose 10 MG; Start 06/28/17 at 10:30 MARY LOU OVALLE MD Jun 28, 2017 14:56
--- NOTE | 2017-06-28 16:08 | PN ---
Date/Time of Note Date/Time of Note DATE: 06/28/17 TIME: 16:03 Assessment/Plan VTE Prophylaxis VTE Prophylaxis Intervention: SCD's Lines/Catheters IV Catheter Type (from Nrs): Saline Lock Urinary Cath still in place: No Assessment/Plan Assessment/Plan 71 yo M with ESRD on HD sent from HD center for SOB and chest pain, found to have L sided pleural effusion and sepsis from MSSA bacteremia. Also with pleuritic chest discomfort. #continued pleuritic chest discomfort of unclear etio and requiring more than baseline O2. Appears this was noted during last hospital stay. Consideration was given to PE, however to obtain CTA, PICC would have had to have been placed. -Will order VQ scan for PE eval. -Appears pt on heparin drip at admission but this was stopped 2 days ago by cardiology service for unclear reasons. #sepsis from MSSA bacteremia: source possibly HD access per ID -cont ancef, length of therapy to be determined by ID -pt with 48 hours of clear blood cultures -TTE without vegetation #pleural effusion: sp drainage. low protein consistent with transudate, possibly 2/2 pt's chronic systolic HF -culture negative #chronic systolic HF/ICM, NSTEMI from sepsis -cardiology following -pt refused LHC -cont cardiac meds #ESRD on HD -renal following dc in AM if cleared by cardiology and VQ negative for PE. Discharge recs from nephro and ID appreciated Subjective 24 Hr Interval Summary Free Text/Dictation Pt still very demanding and complaining copiously Exam/Review of Systems Vital Signs Vitals Vital Signs Date Time Temp Pulse Resp B/P Pulse Ox O2 Delivery O2 Flow Rate FiO2 06/28/17 14:22 98.1 91 18 125/60 93 06/28/17 08:43 8.0 06/28/17 08:00 Simple Mask Intake and Output 06/27/17 06/27/17 06/28/17 15:00 23:00 07:00 Intake Total 1390 ml 220 ml Balance 1390 ml 220 ml Exam demanding no rashes resp unlabored abd soft no edema Results Result Diagram: 06/28/17 0800 06/28/17 0800 Results 24 hrs Laboratory Tests Test 06/28/17 08:00 White Blood Count 7.2 # Red Blood Count 3.19 L Hemoglobin 9.5 L Hematocrit 31.2 L Mean Corpuscular Volume 97.8 Mean Corpuscular Hemoglobin 29.8 Mean Corpuscular Hemoglobin Concent 30.4 L Red Cell Distribution Width 16.8 H Platelet Count 201 # Mean Platelet Volume 10.3 Neutrophils % 65.0 Lymphocytes % 21.0 Monocytes % 8.0 Eosinophils % 4.3 Basophils % 0.7 Nucleated Red Blood Cells % 0.0 Neutrophils # (Manual) 4.7 Lymphocytes # 1.5 Monocytes # 0.6 Eosinophils # 0.3 Basophils # 0.1 Nucleated Red Blood Cells # 0.0 Sodium Level 136 Potassium Level 4.1 Chloride Level 99 Carbon Dioxide Level 26 Anion Gap 15 Blood Urea Nitrogen 37 H Creatinine 5.81 H Glucose Level 92 Calcium Level 8.9 Total Bilirubin 0.0 L Direct Bilirubin 0.00 Indirect Bilirubin 0.0 Aspartate Amino Transf (AST/SGOT) 15 Alanine Aminotransferase (ALT/SGPT) 14 Alkaline Phosphatase 140 H Total Protein 6.0 L Albumin 2.8 L Globulin 3.20 Albumin/Globulin Ratio 0.87 Medications Medications Current Medications Allopurinol (Zyloprim) 100 mg DAILY PO Last administered on 06/28/17 11:32; Admin Dose 100 MG; Start 06/23/17 at 09:00 Aspirin (Halfprin) 81 mg QHS PO Last administered on 06/27/17 20:55; Admin Dose 81 MG; Start 06/22/17 at 21:00 Atorvastatin Calcium (Lipitor) 40 mg QHS PO Last administered on 06/27/17 20:55 ; Admin Dose 40 MG; Start 06/22/17 at 21:00 Clopidogrel Bisulfate (plaVIX) 75 mg QHS PO Last administered on 06/27/17 20:55 ; Admin Dose 75 MG; Start 06/22/17 at 21:00 Docusate Sodium (Colace) 100 mg BID PO Last administered on 06/28/17 11:32; Admin Dose 100 MG; Start 06/22/17 at 21:00 Acetaminophen/ Hydrocodone Bitart ([place] (7.5-325)) 1 tab DAILY PRN PO SEVERE PAIN LEVEL 7-10 Last administered on 06/25/17 19:25; Admin Dose 1 TAB; Start 06/22/17 at 16:00 Losartan Potassium (Cozaar) 25 mg DAILY PO ; Start 06/23/17 at 09:00 Multivit/Ca Carb/ B Cmplx/FA/Prenat (Gi-Evelio) 1 tab DAILY PO Last administered on 06/28/17 11:32; Admin Dose 1 TAB; Start 06/23/17 at 09:00 Nitroglycerin (Nitroglycerin ([place])) 1 spray Q5M PRN TL CHEST PAIN; Start 06/22 at 16:00 Pantoprazole (Protonix Tab) 40 mg DAILY@06 PO Last administered on 06/28/17 05 :28; Admin Dose 40 MG; Start 06/23/17 at 06:00 Ranolazine (Ranexa) 500 mg Q12 PO Last administered on 06/28/17 11:31; Admin Dose 500 MG; Start 06/22/17 at 21:00 Ropinirole HCl (Requip) 0.5 mg TID PO Last administered on 06/28/17 12:33; Admin Dose 0.5 MG; Start 06/22/17 at 21:00 Zolpidem Tartrate (Ambien) 7.5 mg QHS PRN PO INSOMNIA Last administered on 20:56; Admin Dose 7.5 MG; Start 06/22/17 at 16:00 Acetaminophen 650 mg 650 mg Q6H PRN PO PAIN AND OR ELEVATED TEMP Last administered on 06/23/17 04:03; Admin Dose 650 MG; Start 06/23/17 at 04:00 Cefazolin Sodium (Ancef 1 Gm/50 ml (Pmx)) 50 ml @ 100 mls/hr DAILY IVPB Last administered on 06/28/17 11:32; Admin Dose 100 MLS/HR; Start 06/26/17 at 12:30 Morphine Sulfate (morphine) 4 mg Q4H PRN IV PAIN LEVEL 7-10 Last administered on 06/26/17 20:40; Admin Dose 4 MG; Start 06/26/17 at 13:30 Bisacodyl (Dulcolax) 10 mg DAILY PRN PO CONSTIPATION Last administered on 11:31; Admin Dose 10 MG; Start 06/28/17 at 10:30 SHADY NICOLE MD Jun 28, 2017 16:08
[2017-06-28] MEDS ORDERED: ONDANSETRON 4 MG INJ IV PRN (17:00)
[2017-06-28] MEDS: CLOPIDOGREL 75 MG TAB PO SCH (20:09)
[2017-06-28] MEDS: ATORVASTATIN 40 MG TAB PO SCH (20:09)
[2017-06-28] MEDS: ZOLPIDEM 5 MG TAB PO PRN (20:10)
[2017-06-28] MEDS: ASPIRIN (EC) 81 MG TAB PO SCH (20:10)
[2017-06-29] VITALS (9 sets, daily range): BP systolic 107–141; BP diastolic 7–100; PULSE 96–105; RESP 18–20
[2017-06-29] MEDS: PANTOPRAZOLE (EC) 40 MG TAB PO SCH (06:39)
[2017-06-29] MEDS ORDERED: PENDING SANTYL ORDER FOR WOUND CARE XX PRN (07:00)
[2017-06-29] MEDS ORDERED: BISACODYL (EC) 5 MG TAB PO PRN (08:00)
[2017-06-29] MEDS ORDERED: SORBITOL 70% 30ML CUP PO PRN (08:00)
--- NOTE | 2017-06-29 08:07 | CONS ---
Date/Time of Note Date/Time of Note DATE: 06/29/17 TIME: 08:04 Assessment/Plan Assessment/Plan Problems: (1) NSTEMI (non-ST elevated myocardial infarction) Status: Acute Comment: stable... no angio for now (2) HTN (hypertension) Comment: controlled (3) Constipation Comment: meds adjusted for him (4) Recurrent left pleural effusion Status: Acute Comment: recheck CXR this am, w his hx.. doubt PE, as sxs > 3-4d already (5) ESRD (end stage renal disease) on dialysis Status: Chronic Comment: HD today... ?d/c later (6) Bacteremia Comment: f/u cxs are (-).... can dose w Vanco at the HDunit Consultation Date/Type/Reason Admit Date/Time Jun 22, 2017 at 14:58 Type of Consultation: neph Referring Provider: POP BOYCE MD 24 HR Interval Summary Free Text/Dictation comfortable... sitting up eating breakfast.. still some ill described pleuritic type cp diffusely w deep breath, but appears comfortable Exam/Review of Systems Vital Signs Vitals Vital Signs Date Time Temp Pulse Resp B/P Pulse Ox O2 Delivery O2 Flow Rate FiO2 06/29/17 07:43 Simple Mask 8.0 06/29/17 02:09 98.3 82 18 107/54 93 Intake and Output 06/28/17 06/28/17 06/29/17 15:00 23:00 07:00 Intake Total 550 ml 1000 ml 480 ml Output Total 3500 ml Balance -2950 ml 1000 ml 480 ml Exam Constitutional: alert, oriented Head: normocephalic Eyes: nl conjunctiva Neck: supple Respiratory: diminished breath sounds (L base) Cardiovascular: regular rate and rhythm Gastrointestinal: soft Extremities: normal pulses (fxn AVF LUE) Results Result Diagram: 06/28/17 0800 06/28/17 0800 Medications Medications Current Medications Allopurinol (Zyloprim) 100 mg DAILY PO Last administered on 06/28/17 11:32; Admin Dose 100 MG; Start 06/23/17 at 09:00 Aspirin (Halfprin) 81 mg QHS PO Last administered on 06/28/17 20:10; Admin Dose 81 MG; Start 06/22/17 at 21:00 Atorvastatin Calcium (Lipitor) 40 mg QHS PO Last administered on 06/28/17 20: 09; Admin Dose 40 MG; Start 06/22/17 at 21:00 Clopidogrel Bisulfate (plaVIX) 75 mg QHS PO Last administered on 06/28/17 20: 09; Admin Dose 75 MG; Start 06/22/17 at 21:00 Docusate Sodium (Colace) 100 mg BID PO Last administered on 06/28/17 20:10; Admin Dose 100 MG; Start 06/22/17 at 21:00 Acetaminophen/ Hydrocodone Bitart ([place] (7.5-325)) 1 tab DAILY PRN PO SEVERE PAIN LEVEL 7-10 Last administered on 06/25/17 19:25; Admin Dose 1 TAB; Start 06/22/17 at 16:00 Losartan Potassium (Cozaar) 25 mg DAILY PO ; Start 06/23/17 at 09:00 Multivit/Ca Carb/ B Cmplx/FA/Prenat (Gi-Evelio) 1 tab DAILY PO Last administered on 06/28/17 11:32; Admin Dose 1 TAB; Start 06/23/17 at 09:00 Nitroglycerin (Nitroglycerin ([place])) 1 spray Q5M PRN TL CHEST PAIN; Start 06/22 at 16:00 Pantoprazole (Protonix Tab) 40 mg DAILY@06 PO Last administered on 06/29/17 06 :39; Admin Dose 40 MG; Start 06/23/17 at 06:00 Ranolazine (Ranexa) 500 mg Q12 PO Last administered on 06/28/17 20:10; Admin Dose 500 MG; Start 06/22/17 at 21:00 Ropinirole HCl (Requip) 0.5 mg TID PO Last administered on 06/28/17 20:10; Admin Dose 0.5 MG; Start 06/22/17 at 21:00 Zolpidem Tartrate (Ambien) 7.5 mg QHS PRN PO INSOMNIA Last administered on 06/28 20:10; Admin Dose 7.5 MG; Start 06/22/17 at 16:00 Acetaminophen 650 mg 650 mg Q6H PRN PO PAIN AND OR ELEVATED TEMP Last administered on 06/23/17 04:03; Admin Dose 650 MG; Start 06/23/17 at 04:00 Cefazolin Sodium (Ancef 1 Gm/50 ml (Pmx)) 50 ml @ 100 mls/hr DAILY IVPB Last administered on 06/28/17 11:32; Admin Dose 100 MLS/HR; Start 06/26/17 at 12:30 Morphine Sulfate (morphine) 4 mg Q4H PRN IV PAIN LEVEL 7-10 Last administered on 06/26/17 20:40; Admin Dose 4 MG; Start 06/26/17 at 13:30 Bisacodyl (Dulcolax) 10 mg DAILY PRN PO CONSTIPATION Last administered on 11:31; Admin Dose 10 MG; Start 06/28/17 at 10:30 Ondansetron HCl (Zofran Inj) 4 mg Q6H PRN IV NAUSEA AND/OR VOMITING Last administered on 06/28/17 17:41; Admin Dose 4 MG; Start 06/28/17 at 17:00 Miscellaneous Information (Pending [facility]yl Order For Wound Care) This patient anthony... PRN PRN XX WOUND CARE; Start 06/29/17 at 07:00 POP BOYCE MD Jun 29, 2017 08:07
--- NOTE | 2017-06-29 10:05 | RADRPT ---
PROCEDURE: XR Chest. CLINICAL INDICATION: Shortness of breath. TECHNIQUE: Single frontal view. COMPARISON: 06/25/2017. FINDINGS: There is mild pulmonary edema, unchanged. Left basilar atelectasis is slightly worse than seen previ ously. The lungs are otherwise clear. The heart is mildly enlarged. There is a right sided biventricular pacemaker/internal cardiac defibr illator. There is no right pleural effusion. There is a small left pleural effusion, larger than seen previou sly. There is no pneumothorax. IMPRESSION: 1. Worse appearance of the left lung base and larger left pleural effusion. 2. No other change from 06/25/2017. RPTAT: QQ .Lazaro Zavaleta MD, MD Date Time Electronically viewed and signed by .Lazaro Zavaleta MD, on 06/29/2017 10:05 .R/
--- NOTE | 2017-06-29 11:33 | PDOCDIS ---
Discharge Instructions CONDITION Patient Condition: Stable HOME CARE INSTRUCTIONS: Special Diet: renal, cardiac ACTIVITY: Activity Restrictions: Slowly Increase Activity FOLLOW UP/APPOINTMENTS Follow-up Plan Please take your medications as prescribed, please follow-up with her primary care doctor in the clinic in the next 1-2 weeks. ALTHEA ARROYO Jun 29, 2017 11:33
[2017-06-29] MEDS: ALBUTEROL/IPRATROPIUM (NEB) 3 ML AMP HHN PRN (11:48)
[2017-06-29] MEDS: ALBUMIN HUMAN 25% 100 ML IV SCH ×2 (12:30→13:30)
--- NOTE | 2017-06-29 12:57 | RADRPT ---
PROCEDURE: Ventilation-perfusion lung scan CLINICAL INDICATION: 71 -year-old patient with shortness of breath. TECHNIQUE: Following the inhalation of approximately 1.0 mCi of Tc-99m stannous DTPA aerosol, vent ilation images were obtained. The patient was then given an intravenous injection of 4.4 mCi of Tc- 99m MAA, in perfusion images were obtained. COMPARISON: No prior VQ scans. Correlation was made with chest x-ray dated June 29, 2017 FINDINGS: The cardiac silhouette appears to be mildly enlarged. Ventilation images demonstrate moderately nonhomogeneous distribution of activity in the lungs bilat erally. Reduced ventilation is seen in the left lower lung. Perfusion images reveal a matched area of reduced perfusion in the left lower lung, best visualized on the posterior and LPO views and, otherwise, matched nonhomogeneous distribution of activity in [place] th lungs. Given the presence of a large left-sided pleural effusion on the chest x-ray dated 2016, the findings represent intermediate probability for pulmonary embolus. IMPRESSION: 1. Intermediate probability for pulmonary embolus. 2. Mild cardiomegaly. RPTAT: HH .Lisy Tolliver MD, MD Date Time Electronically viewed and signed by .Lisy Tolliver MD, on 06/29/2017 12:56 .L/
--- NOTE | 2017-06-29 13:33 | DS ---
DATE OF ADMISSION: 06/22/2017 DATE OF DISCHARGE: 06/29/2017 HOSPITAL COURSE: This is a 71-year-old male, originally admitted on June 22, 2017 being discharged home pending clearance from the health management consultant teams on June 29, 2017. The patient transferred from an outside hospital after presenting with generalized weakness and chest pain after dialysis. He was seen by multiple specialists during the hospital stay, including infectious disease team and cardiology team and renal team. He was found to have a left-sided pleural effusion and sepsis from MSSA bacteremia. He underwent thoracentesis on June 25. The patient tolerated the procedure well. He was also found with non- ST elevation AL and placed on heparin drip. He does have a history of ischemic cardiomyopathy, and had has had prior history of congestive heart failure and apparently recently had a Bi-V ICD placed before this admission. The patient remained on oxygen as he does use that at home and he ran on oxygen while he was here in the hospital. The patient's symptoms slowly improved. There was concern about PE, so V/Q scan was ordered 24 hours prior to discharge. In any event, he was briefly on heparin drip as well for the non-ST elevation AL. He did refuse a left heart catheterization and the cardiology team recommended to continue his medical management for that. Regarding his sepsis from MSSA bacteremia, he was placed on antibiotics for that and he will continue antibiotics with vancomycin given at dialysis once he is discharged if he is discharged today, through July 05. He did have an echocardiogram on June 24, 2017 that showed normal left ventricular cavity size, mild concentric left ventricular hypertrophy, moderate global left ventricular systolic dysfunction, ejection fraction 35 percent. There was some stage I diastolic dysfunction. There is global hypokinesis involving all segments of the left ventricle. The segments of the left ventricle are hypokinetic inferior basal segment and anterior lateral mid segment. There were no obvious vegetations on the valves. The patient continue dialysis per renal recommendations while here in the hospital as well. He appeared to be back at his baseline status. We are ordering a front wheel walker for him as well to be ordered for home use if his insurance covers this. His VQ scan test did come back intermediate probability for pulmonary embolism: this result was discussed with cardiology team, and they felt that given the effusion seen on the imaging studies that there was actually less likelihood of having a pulmonary embolism present in the patient. He was educated about watching for any increasing shortness of breath, but will still be he will be discharged home today in an improved condition as the sepsis has resolved. If he goes home today, he will go home with the following medications: 1. Allopurinol 100 mg daily. 2. Alprazolam 0.25 mg q.h.s. p.r.n. 3. Aspirin 81 mg daily. 4. Atorvastatin 40 mg q.h.s. 5. Plavix 75 mg daily. 6. Colace 100 mg t.i.d. p.r.n. 7. Nexium 40 mg q.a.m. 8. [place] 7.5/325, daily p.r.n. 9. Losartan 25 mg daily. 10. Gi-Evelio 1 tab daily. 11. Nitroglycerin 400 mcg spray q. 5 minutes p.r.n. 12. Protonix 40 mg daily. 13. Ranexa 500 mg q.12 hours 14. Ropinirole 0.5 mg t.i.d. 15. Renvela 0.01 g with meals. 16. Ambien 7.5 mg q.h.s. p.r.n. 17. Vancomycin IV dosing per pharmacy until July 05, 2017 to be given at dialysis He will need to follow up with the regular doctor in the clinic in the next 1-2 weeks as well as his health management consultant doctors in the clinic in the next 1-2 weeks. FINAL DIAGNOSES: 1. Pleuritic chest discomfort, likely secondary to combination [id number] AL and congestive heart failure and left-sided pleural effusion status post thoracentesis, non-medical management for his non-ST elevation AL. Also awaiting final results of V/Q scan to rule out PE. 2. Sepsis from an MSSA bacteremia, improving -on antibiotics 3. Pleural effusion status post thoracentesis. 4. History of chronic systolic heart failure and ischemic cardiomyopathy. 5. Renal disease, on dialysis. 6. Debility with home health needs secondary to above. Time spent to discharge the patient, 65 minutes. Dictated By: Mehul Corbett MD /jay/ /Document#: [id number] [facility]
--- NOTE | 2017-06-29 15:03 | CONS ---
Date/Time of Note Date/Time of Note DATE: 06/29/17 TIME: 14:56 Assessment/Plan Assessment/Plan Chief Complaint/Hosp Course ASSESSMENT: 1. 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 will cont medical mgmt. lvef remains depressed on echo, but no acute changes. cont asa, plavix. consider LHC given elevated troponin, but pt declines invasive evaluation at this time given overall symptomatically improved. 2. ICM- LVEF 30-35%, s/p BiV ICD, chronic NYHA III on home o2 3. Acute on Chronic diastolic+systolic heart failure - fluid mgmt with iHD. has L pleural effusion s/p drainage culture negative. 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 5. Hyperlipidemia. 6. CAD- s/p many previous PCI. known [employer] ostial LCx with L/R-L collaterals. [employer] branch of D1 with l-l collaterals . patent lad/Diag stents. distal RCA disease s/p PCI 11/2016 7. Fever, leukocytosis- concern for pna with effusion with now staph bacteremia. fever/leukocytosis. resolved. repeat blood cx given risk of infection of biv icd device. no obvious veg on echo, given negative repeat culture/no recurrent fever ok to hold off on ANTWON 8. ? rub on exam- has had this finding on/off in the past. no effusion on echo. could consider valerie heart cath to eval for constriction, but pt declines at this time. will re-evaluate as outpt 9. Abnl v/q scan- intermediate probability given L effusion, pt with chronic dyspnea, no acute change. Impression: - con asa 81mg daily - cont plavix 75 mg daily - cont losartan - pt intolerant of bb/nitrate previously - cont statin - cont dialysis per renal will f/u as outpt Problems: Consultation Date/Type/Reason Admit Date/Time Jun 22, 2017 at 14:58 Initial Consult Date 06/23/2017 Type of Consultation: card Referring Provider: POP BOYCE MD 24 HR Interval Summary Free Text/Dictation no acute events. pt states pain has improved. sob stable, still using o2. states got walker, but not using it yet. no pnd, orthopnea, edema. Detailed Summary Respiratory: shortness of breath Cardiovascular: no complaints Gastrointestinal: no complaints Exam/Review of Systems Vital Signs Vitals Vital Signs Date Time Temp Pulse Resp B/P Pulse Ox O2 Delivery O2 Flow Rate FiO2 06/29/17 12:45 96 06/29/17 12:30 18 06/29/17 11:45 89 8.0 06/29/17 11:45 Simple Mask 06/29/17 08:21 97.7 123/58 Intake and Output 06/28/17 06/28/17 06/29/17 15:00 23:00 07:00 Intake Total 550 ml 1000 ml 480 ml Output Total 3500 ml Balance -2950 ml 1000 ml 480 ml Exam Constitutional: alert, oriented Psych: normal mood Head: normocephalic Eyes: nl conjunctiva ENMT: nl external ears & nose Neck: jvd, supple Respiratory: decreased bs L side posterior Cardiovascular: regular rate and rhythm, ii/vi broderick rusb. +rub No edema Gastrointestinal: soft Ext: L fistula + thrill Results Result Diagram: 06/28/17 0806/28/17 0800 Medications Medications Current Medications Allopurinol (Zyloprim) 100 mg DAILY PO Last administered on 06/28/17 11:32; Admin Dose 100 MG; Start 06/23/17 at 09:00 Aspirin (Halfprin) 81 mg QHS PO Last administered on 06/28/17 20:10; Admin Dose 81 MG; Start 06/22/17 at 21:00 Atorvastatin Calcium (Lipitor) 40 mg QHS PO Last administered on 06/28/17 20: 09; Admin Dose 40 MG; Start 06/22/17 at 21:00 Clopidogrel Bisulfate (plaVIX) 75 mg QHS PO Last administered on 06/28/17 20: 09; Admin Dose 75 MG; Start 06/22/17 at 21:00 Docusate Sodium (Colace) 100 mg BID PO Last administered on 06/28/17 20:10; Admin Dose 100 MG; Start 06/22/17 at 21:00 Acetaminophen/ Hydrocodone Bitart ([place] (7.5-325)) 1 tab DAILY PRN PO SEVERE PAIN LEVEL 7-10 Last administered on 06/25/17 19:25; Admin Dose 1 TAB; Start 06/22/17 at 16:00 Losartan Potassium (Cozaar) 25 mg DAILY PO ; Start 06/23/17 at 09:00 Multivit/Ca Carb/ B Cmplx/FA/Prenat (Gi-Evelio) 1 tab DAILY PO Last administered on 06/28/17 11:32; Admin Dose 1 TAB; Start 06/23/17 at 09:00 Nitroglycerin (Nitroglycerin ([place])) 1 spray Q5M PRN TL CHEST PAIN; Start 06/22 at 16:00 Pantoprazole (Protonix Tab) 40 mg DAILY@06 PO Last administered on 06/29/17 06 :39; Admin Dose 40 MG; Start 06/23/17 at 06:00 Ranolazine (Ranexa) 500 mg Q12 PO Last administered on 06/28/17 20:10; Admin Dose 500 MG; Start 06/22/17 at 21:00 Ropinirole HCl (Requip) 0.5 mg TID PO Last administered on 06/28/17 20:10; Admin Dose 0.5 MG; Start 06/22/17 at 21:00 Zolpidem Tartrate (Ambien) 7.5 mg QHS PRN PO INSOMNIA Last administered on 06/28 20:10; Admin Dose 7.5 MG; Start 06/22/17 at 16:00 Acetaminophen 650 mg 650 mg Q6H PRN PO PAIN AND OR ELEVATED TEMP Last administered on 06/23/17 04:03; Admin Dose 650 MG; Start 06/23/17 at 04:00 Cefazolin Sodium (Ancef 1 Gm/50 ml (Pmx)) 50 ml @ 100 mls/hr DAILY IVPB Last administered on 06/28/17 11:32; Admin Dose 100 MLS/HR; Start 06/26/17 at 12:30 Morphine Sulfate (morphine) 4 mg Q4H PRN IV PAIN LEVEL 7-10 Last administered on 06/26/17 20:40; Admin Dose 4 MG; Start 06/26/17 at 13:30 Ondansetron HCl (Zofran Inj) 4 mg Q6H PRN IV NAUSEA AND/OR VOMITING Last administered on 06/28/17 17:41; Admin Dose 4 MG; Start 06/28/17 at 17:00 [facility] This patient anthony... PRN PRN XX WOUND CARE; Start 06/29/17 at 07:00 Bisacodyl (Dulcolax) 10 mg Q6H PRN PO CONSTIPATION; Start 06/29/17 at 08:00 Sorbitol (Sorbitol 70%) 30 ml Q6H PRN PO CONSTIPATION; Start 06/29/17 at 08:00 Procedures Procedures vq scan reviewed The cardiac silhouette appears to be mildly enlarged. Ventilation images demonstrate moderately nonhomogeneous distribution of activity in the lungs bilaterally. Reduced ventilation is seen in the left lower lung. Perfusion images reveal a matched area of reduced perfusion in the left lower lung, best visualized on the posterior and LPO views and, otherwise, matched nonhomogeneous distribution of activity in both lungs. Given the presence of a large left-sided pleural effusion on the chest x-ray dated June 29, 2017, the findings represent intermediate probability for pulmonary embolus. IMPRESSION: 1. Intermediate probability for pulmonary embolus. 2. Mild cardiomegaly. SUSANA VASQUEZ Jun 29, 2017 15:03
[2017-06-29 15:35] LABS: ALBUMIN 2.6 g/dl (3.3-4.9); ALBUMIN/GLOBULIN RATIO 0.92; CREATININE 4.17 mg/dl (0.61-1.24); POTASSIUM 4.6 mmol/L (3.5-5.1); TOTAL PROTEIN 5.4 g/dl (6.1-8.1)
[2017-06-29 16:21] LABS: BASOPHILS % 0.5 % (0.0-2.0); EOSINOPHILS # 0.3 10^3/ul (0.0-0.5); EOSINOPHILS % 3.5 % (0.0-7.0); HEMATOCRIT 30.3 % (42.0-52.0); HEMOGLOBIN 8.9 g/dl (14.0-18.0); LYMPHOCYTES # 1.3 10^3/ul (0.8-2.9); LYMPHOCYTES % 14.3 % (15.0-51.0); MEAN CORPUSCULAR HEMOGLOBIN 29.5 pg (29.0-33.0); MEAN CORPUSCULAR HGB CONC 29.4 g/dl (32.0-37.0); MEAN CORPUSCULAR VOLUME 100.3 fl (82.0-101.0); MEAN PLATELET VOLUME 10.5 fl (7.4-10.4); MONOCYTE # 0.5 10^3/ul (0.3-0.9); MONOCYTES % 5.9 % (0.0-11.0); NEUTROPHILS % 75.3 % (39.0-77.0); PLATELET COUNT 210 10^3/UL (140-415); RED BLOOD COUNT 3.02 10^6/ul (4.70-6.10); RED CELL DISTRIBUTION WIDTH 17.2 % (11.5-14.5); WHITE BLOOD COUNT 8.8 10^3/ul (4.8-10.8)
== END 2017-06-29 17:00 | disposition home health service (06) | DRG 871 ==
LOC: E/R 12:52 → MS4 14:58 → MS2 06-28 02:10
PROVIDERS: ADMIT Family Medicine; ATTEND Family Medicine
PROC: 5A1D60Z (ICD-10-PCS; 2017-06-23)
PROC: 0W9B3ZZ Drainage of Left Pleural Cavity, Percutaneous Approach (ICD-10-PCS; principal; 2017-06-25)
DX: A41.01 Sepsis due to Methicillin susceptible Staphylococcus aureus (principal); I21.4 Non-ST elevation (NSTEMI) myocardial infarction; I50.43 Acute on chronic combined systolic (congestive) and diastolic (congestive) heart failure; J90 Pleural effusion, not elsewhere classified; J18.9 Pneumonia, unspecified organism; N18.6 End stage renal disease; T86.12 Kidney transplant failure; E11.22 Type 2 diabetes mellitus with diabetic chronic kidney disease; I13.2 Hypertensive heart and chronic kidney disease with heart failure and with stage 5 chronic kidney disease, or end stage renal disease; I25.5 Ischemic cardiomyopathy; I25.2 Old myocardial infarction; E78.5 Hyperlipidemia, unspecified; K59.00 Constipation, unspecified; M10.9 Gout, unspecified; E11.51 Type 2 diabetes mellitus with diabetic peripheral angiopathy without gangrene; D64.9 Anemia, unspecified; Z99.81 Dependence on supplemental oxygen; Z95.810 Presence of automatic (implantable) cardiac defibrillator; Z99.2 Dependence on renal dialysis; Z79.82 Long term (current) use of aspirin; Z95.5 Presence of coronary angioplasty implant and graft; Y83.0 Surgical operation with transplant of whole organ as the cause of abnormal reaction of the patient, or of later complication, without mention of misadventure at the time of the procedure
CPT/HCPCS: 32555; 71010; 71250; 78582; 80048; 80053; 80061; 80202; 82550; 82553; 82945; 82962; 83540; 83735; 83880; 84100; 84157; 84484; 85025; 85610; 85730; 87040; 87070; 87102; 87116; 88104; 88305; 89051; 90935; 93005; 93306; 94640; 94664; A9540; J0690; J1644; J1815; J2270; J2405; J2543; J2916; J3370; P9047

== ENCOUNTER 2017-07-05 05:43 | Inpatient (IN) | payer MEDICARE, MEDICAID ==
[~2017-07-05] VITALS: Ht 170.2 cm; Wt 70.8 kg
[2017-07-05] VITALS (36 sets, daily range): BP systolic 79–128; BP diastolic 22–63; PULSE 106–121; RESP 18–32; TEMP 99.9; Ht 170.2 cm; Wt 70.8 kg
[~2017-07-05 05:43] MED LIST changes: -BISA5TAB6 PO; -DOCU250C58 PO
[2017-07-05] MEDS ORDERED: ASPIRIN 81 MG TAB PO STA (05:45)
[2017-07-05 06:17] LABS: WHITE BLOOD COUNT 6.7 10^3/ul (4.8-10.8)
[2017-07-05 06:18] LABS: BASOPHILS % 0.6 % (0.0-2.0); EOSINOPHILS # 0.2 10^3/ul (0.0-0.5); EOSINOPHILS % 3.2 % (0.0-7.0); HEMATOCRIT 31.3 % (42.0-52.0); HEMOGLOBIN 9.2 g/dl (14.0-18.0); LYMPHOCYTES # 1.2 10^3/ul (0.8-2.9); LYMPHOCYTES % 18.2 % (15.0-51.0); MEAN CORPUSCULAR HEMOGLOBIN 29.2 pg (29.0-33.0); MEAN CORPUSCULAR HGB CONC 29.4 g/dl (32.0-37.0); MEAN CORPUSCULAR VOLUME 99.4 fl (82.0-101.0); MEAN PLATELET VOLUME 10.1 fl (7.4-10.4); MONOCYTE # 0.4 10^3/ul (0.3-0.9); MONOCYTES % 5.6 % (0.0-11.0); NEUTROPHIL # 4.8 10^3/ul (1.6-7.5); NEUTROPHILS % 71.9 % (39.0-77.0); PLATELET COUNT 233 10^3/UL (140-415); RED BLOOD COUNT 3.15 10^6/ul (4.70-6.10); RED CELL DISTRIBUTION WIDTH 18.3 % (11.5-14.5)
--- NOTE | 2017-07-05 06:20 | ERA ---
ER Documentation Chief Complaint Date/Time DATE: 07/05/17 TIME: 06:13 Chief Complaint HPI This is a 71-year-old male with complicated medical history including multiple cardiac stents, coronary artery disease, pacemaker, end-stage renal disease on dialysis who presents the emergency room with chest pain or shortness of breath. The patient states that he uses 5 L of oxygen nasal cannula at home. He states that around 3 AM he started to have chest pain that was pressure-like and central with associated shortness of breath. No fevers, chills, cough, no pleuritic pain, no lower extremity swelling. He states the symptoms are improving and he feels that he can take a deeper breath. Patient arrives via EMS. ROS All systems reviewed and are negative except as per history of present illness. Medications Home Meds Active Scripts Docusate Sodium (Dok) 100 Mg Capsule, 100 MG PO TID Y for CONSTIPATION for 30 Days, #100 CAP Prov:POP JOHNSON MD 05/14/17 Ipratropium-Albuterol (Ipratropium-Albuterol) 0.5-3 Mg/3 Ml Ampul.neb, 3 ML HHN Q6H RESP THERAPY for 30 Days, #120 KIT 5 Refills Prov:POP JOHNSON MD 05/14/17 Ropinirole Hcl* (Ropinirole Hcl*) 0.5 Mg Tablet, 0.5 MG PO TID for 90 Days, #90 TAB Prov:POP JOHNSON MD 05/14/17 Losartan Potassium* (Losartan Potassium*) 25 Mg Tablet, 25 MG PO DAILY for 90 Days, TAB 3 Refills Prov:POP JOHNSON MD 02/06/17 Pantoprazole* (Pantoprazole*) 40 Mg Tablet., 40 MG PO Q12 for 60 Days Prov:ALONZO SERRA MD 12/05/16 Reported Medications Multivit/Ca Carb/B Cmplx/Fa* (Gi-Calvin*) 1 Tab Tab, 1 TAB PO DAILY, TAB TAKE AFTER DIALYSIS (NEPHRO-CALVIN) 04/24/17 Esomeprazole Mag Trihydrate (Nexium) 40 Mg Capsule., 40 MG PO QAM, #30 CAP 04/24/17 Nitroglycerin* (Nitroglycerin* Talpa) 400 Mcg/Talpa - 12 Gm Talpa, 1 SPRAY TL Q5M Y for CHEST PAIN, SPRAY 01/28/17 Ranolazine* (Ranexa*) 500 Mg Tab.sr.12h, 500 MG PO Q12, TAB 01/28/17 Sevelamer Carbonate* (Renvela*) 800 Mg Tablet, 0.8 GM PO WITH MEALS, TAB 01/28/17 Zolpidem Tartrate* (Zolpidem Tartrate*) 5 Mg Tablet, 7.5 MG PO QHS Y for INSOMNIA, #30 TAB 12/01/16 Clopidogrel Bisulfate (Clopidogrel) 75 Mg Tablet, 75 MG PO QHS, #30 TAB 12/01/16 Hydrocodone/Acetaminophen ([place] 7.5-325 Tablet) 1 Each Tablet, 1 EACH PO DAILY Y for SEVERE PAIN LEVEL 7-10, TAB 12/01/16 Atorvastatin* (Atorvastatin*) 40 Mg Tablet, 40 MG PO QHS, #30 TAB 12/01/16 Aspirin* (Aspirin* EC) 81 Mg Tablet.dr, 81 MG PO QHS, TAB 12/01/16 Alprazolam* (Alprazolam*) 0.25 Mg Tablet, 0.25 MG PO QHS Y for ANXIETY, TAB 12/01/16 Allopurinol* (Allopurinol*) 100 Mg Tablet, 100 MG PO DAILY, TAB 12/01/16 Allergies Allergies: Coded Allergies: No Known Drug Allergies (Verified Allergy, Unknown, 06/22/17) PMhx/Soc History of Surgery: Yes Anesthesia Reaction: No Hx Neurological Disorder: No Hx Respiratory Disorders: Yes (pna) Hx Cardiac Disorders: Yes (chf, htn, 15 stents, pacemaker, aicd, ) Hx Psychiatric Problems: Yes (ANXIETY, DEPRESSION) Hx Miscellaneous Medical Probl: No Hx Alcohol Use: No Hx Substance Use: No Hx Tobacco Use: No FmHx Family History: No diabetes Physical Exam Vitals Vital Signs Date Time Temp Pulse Resp B/P Pulse Ox O2 Delivery O2 Flow Rate FiO2 07/05/17 05:44 Non Rebreather 10 07/05/17 05:44 98.4 103 18 120/49 100 Non Rebreather 10.0 07/05/17 05:44 Non Rebreather 10.0 07/05/17 05:44 98.4 103 18 120/49 100 Physical Exam General: Well developed, well nourished, no acute distress Head: Normocephalic, atraumatic Eyes: Pupils equally reactive, EOM intact ENT: Moist mucous membranes Neck: Supple, no lymphadenopathy Respiratory: Good aeration diffusely without rales at the bases, no respiratory distress cardiovascular: RRR, no murmurs, rubs, or gallops Abdominal: Soft, non-tender, non-distended, no peritoneal signs : Deferred MSK: No edema, no unilateral swelling, 5/5 strength, left upper extremity AV fistula with good bruit and thrill Neurologic: Alert and oriented, moving all extremities, normal speech, no focal weakness, no cerebellar signs Skin: No rash Psych: Normal mood Result Diagram: 07/05/17 0550 07/05/17 0550 Results 24 hrs Laboratory Tests Test 07/05/17 05:50 White Blood Count 6.710^3/ul Red Blood Count 3.1510^6/ul Hemoglobin 9.2g/dl Hematocrit 31.3% Mean Corpuscular Volume 99.4fl Mean Corpuscular Hemoglobin 29.2pg Mean Corpuscular Hemoglobin Concent 29.4g/dl Red Cell Distribution Width 18.3% Platelet Count 76487^3/UL Mean Platelet Volume 10.1fl Neutrophils % 71.9% Lymphocytes % 18.2% Monocytes % 5.6% Eosinophils % 3.2% Basophils % 0.6% Nucleated Red Blood Cells % 0.0/100WBC Neutrophils # 4.810^3/ul Lymphocytes # 1.210^3/ul Monocytes # 0.410^3/ul Eosinophils # 0.210^3/ul Basophils # 0.010^3/ul Nucleated Red Blood Cells # 0.010^3/ul Sodium Level 139mmol/L Potassium Level 4.4mmol/L Chloride Level 99mmol/L Carbon Dioxide Level 29mmol/L Anion Gap 15 Blood Urea Nitrogen 35mg/dl Creatinine 5.34mg/dl Glucose Level 116mg/dl Calcium Level 9.2mg/dl Total Bilirubin 0.5mg/dl Direct Bilirubin 0.40mg/dl Indirect Bilirubin 0.1mg/dl Aspartate Amino Transf (AST/SGOT) 226IU/L Alanine Aminotransferase (ALT/SGPT) 43IU/L Alkaline Phosphatase 584IU/L Troponin I 0.036ng/ml B-Type Natriuretic Peptide 71288VU/ML Total Protein 6.5g/dl Albumin 3.1g/dl Globulin 3.40g/dl Albumin/Globulin Ratio 0.91 Current Medications Medications (Trade) Dose Ordered Sig/Leonardo Route PRN Reason Start Time Stop Time Status Last Admin Dose Admin Aspirin (Aspirin) 162 mg ONCE STAT PO 07/05/17 05:45 07/05/17 05:46 DC 07/05/17 06:06 Morphine Sulfate (morphine) 4 mg ONCE STAT IV 07/05/17 06:58 07/05/17 06:59 DC 07/05/17 07:05 Ondansetron HCl (Zofran Inj) 4 mg ONCE STAT IV 07/05/17 06:58 07/05/17 06:59 DC 07/05/17 07:05 Lorazepam (Ativan) 0.5 mg ONCE ONCE IV 07/05/17 07:30 07/05/17 07:31 DC 07/05/17 07:34 Furosemide (Lasix) 40 mg ONCE ONCE IV 07/05/17 08:00 07/05/17 08:01 DC Ondansetron HCl (Zofran Inj) 4 mg ER BRIDGE PRN IV NAUSEA AND/OR VOMITING 07/05/17 08:30 07/06/17 08:29 Acetaminophen (Tylenol Tab) 650 mg ER BRIDGE PRN PO MILD PAIN/FEVER 07/05/17 08:30 07/06/17 08:29 Procedures/MDM EKG, MONITORS, & DIAGNOSTIC IMAGING: EKG: I reviewed and interpreted a 12-lead EKG. Rhythm: Normal sinus rhythm Ectopy: Premature ventricular contractions intervals: No abnormalities ST segments: No elevations or depressions T waves: No contiguous inversions Repeat EKG: EKG: I reviewed and interpreted a 12-lead EKG. Rhythm: Normal sinus rhythm Ectopy: None Intervals: No abnormalities ST segments: No elevations or depressions T waves: No contiguous inversions Chest x-ray: I reviewed and interpreted a 1 view of the chest Mediastinum: No enlargement Cardiac silhouette: No cardiomegaly Airspace: Clear lung wright bilaterally without evidence of pneumothorax Bones: No evidence of fracture LAB INTERPRETATION: Negative troponin, elevated BNP consistent with baseline, chronic renal insufficiency without hyperkalemia MEDICAL DECISION MAKING: The patient's history, physical exam and clinical presentation is concerning for possible cardiogenic etiology and acute coronary syndrome, versus congestive heart failure versus volume overload. Additionally, the patient states that he uses 5 L and up to 10 L of nasal cannula at home. There could be a behavioral component to this. The patient is satting 97% on room air. Based on the patient's clinical exam and history and risk factors, I have a much lower clinical concern for pulmonary embolism, acute aortic dissection, pneumothorax, pneumonia, cardiac tamponade HEART Score: 6 MACE Rate: 16.6% Shared Decision Making: We had a conversation regarding risk stratification, MACE rate, and the risks, benefits, alternatives of disposition planning options. Disposition planning: Strong recommendation for hospitalization given his complex medical history ER COURSE: The patient has been given aspirin and nitroglycerin via EMS. Completion of aspirin given upon patient arrival to the emergency room. He is resting comfortably. The patient intermittently has chest pain and anxiety. The patient had a repeat EKG that was unchanged his troponin is negative. He was given pain medication. He continues to have the shortness of breath that is alleviated and resolved with Ativan. Strong concern for anxiety complicating his presentation. The patient states that he does still make urine therefore a dose of Lasix 40 mg was provided. The patient may benefit from dialysis as chest x-ray is slightly worse with volume than baseline. The patient is stable at this time and does not require nitroglycerin drip or positive pressure ventilation. I kept the patient and/or family informed of laboratory and diagnostic imaging results throughout the emergency room course. DISPOSITION PLAN: Telemetry admission for management of chest pain to rule out acute coronary syndrome, serial enzymes, risk stratification and consideration of provocative testing CONSULTATION: Accepting care team and consultations: I discussed the current laboratory data, diagnostic imaging and emergency care provided. Admitting team Dr. Johnson Admitting team indication: Insurance directed Departure Diagnosis: Primary Impression: Anemia Qualified Code: D64.9 - Anemia, unspecified type Additional Impressions: CHF (congestive heart failure) Qualified Code: I50.9 - Acute on chronic congestive heart failure, unspecified congestive heart failure type ESRD (end stage renal disease) on dialysis SOB (shortness of breath) Chest pain Qualified Code: R07.9 - Chest pain, unspecified type Condition: Stable RIMMA ARRIOLA MD Jul 05, 2017 06:20
[2017-07-05 06:55] LABS: ALBUMIN 3.1 g/dl (3.3-4.9); ALBUMIN/GLOBULIN RATIO 0.91; BILIRUBIN,DIRECT 0.4 mg/dl (0.00-0.20); BILIRUBIN,INDIRECT 0.1 mg/dl (0-1.1); BILIRUBIN,TOTAL 0.5 mg/dl (0.2-1.3); CALCIUM 9.2 mg/dl (8.4-10.2); CREATININE 5.34 mg/dl (0.61-1.24); POTASSIUM 4.4 mmol/L (3.5-5.1); TOTAL PROTEIN 6.5 g/dl (6.1-8.1)
[2017-07-05] MEDS ORDERED: morphine 4 MG/ML VIAL IV STA (06:58)
[2017-07-05] MEDS ORDERED: ONDANSETRON 4 MG INJ IV STA (06:58)
[2017-07-05 07:23] LABS: TROPONIN-I 0.036 ng/ml (0.00-0.12)
[2017-07-05] MEDS ORDERED: LORAZEPAM 2 MG INJ IV ONE (07:30)
--- NOTE | 2017-07-05 07:43 | RADRPT ---
PROCEDURE: CHEST - 1 VIEW CLINICAL INDICATION: 71-year-old male with chest pain. TECHNIQUE: A single frontal AP portable view of the chest was performed. The images were reviewed on a PACS workstation. COMPARISON: Chest x-ray April 01, 2017; chest x-ray June 29, 2017.. FINDINGS: There is a right-sided AICD biventricular pacemaker combination. The cardiomediastinal silhouette is enlarged. The thoracic aortic arch is calcified. There is mild pulmonary vascular congestion. There is increasing moderate left pleural effusion with left lower lobe compressive atelectasis. A superi mposed infiltrate cannot be excluded. There is no evidence for pneumothorax. Diffuse vascular calcif ications are seen within the upper extremities. There is a vascular stent within the right brachial region.. The osseous structures are intact. IMPRESSION: 1. Right-sided AICD biventricular pacemaker combination. 2. Cardiomegaly. 3. Calcified thoracic aortic arch. 4. Pulmonary vascular congestion. 5. Increasing moderate left pleural effusion with associated compressive atelectasis. A superimpose d infiltrate cannot be excluded. 6. Vascular stent right brachial region. 7. Diffuse vascular calcifications upper extremity soft tissues. .Nolan Perez MD, MD Date Time Electronically viewed and signed by .Nolan Perez MD, on 07/05/2017 07:43 .M/
[2017-07-05] MEDS ORDERED: FUROSEMIDE 40 MG INJ IV ONE (08:00)
[2017-07-05] MEDS ORDERED: ACETAMINOPHEN 325 MG TAB PO PRN ×2 (08:30→09:30)
[2017-07-05] MEDS ORDERED: ONDANSETRON 4 MG INJ IV PRN (08:30)
[2017-07-05] MEDS ORDERED: VANCOMYCIN 1 GM (PMX) 250 ML IVPB SCH (09:30)
[2017-07-05] MEDS ORDERED: NACL 0.9% 3 ML SYG IV SCH (09:30)
[2017-07-05] MEDS ORDERED: DOCUSATE SODIUM 100 MG CAP PO PRN (09:30)
[2017-07-05] MEDS ORDERED: LEVOFLOXACIN 500MG/D5W (PMX) 100 ML IVPB ONE (09:30)
[2017-07-05] MEDS ORDERED: NITROGLYCERIN AEROSOL (4.9 GM) TL PRN (09:30)
[2017-07-05] MEDS ORDERED: AMIODARONE 900MG/D5W DRIP 500 ML IV STA (09:48)
[2017-07-05] MEDS ORDERED: AMIODARONE 150MG/D5W BOLUS IV* STA (09:48)
[2017-07-05] MEDS: PIPER-TAZO 2.25 GM (PMX) 50 ML IVPB SCH ×2 (10:28→21:40)
[2017-07-05] MEDS ORDERED: ACETAMINOPHEN 650 MG SUPP PR ONE (10:30)
--- NOTE | 2017-07-05 10:33 | CONS ---
Date/Time of Note Date/Time of Note DATE: 07/05/17 TIME: 10:13 Assessment/Plan Assessment/Plan Chief Complaint/Hosp Course ASSESSMENT: 1. Chest pain, sob- initial trop negative, could have recurrent NSTEMI but pt declining intervention. will need serial trop and reconsider if positive. no acute changes on presentaion ekg 2. WCT- likely tachy with aberrancy (has chilkat LBBB), slows with carotid massage. may be sinus tachy though could be SVT as well. will need to r/o infection, other possible causes of sinus tachy. ok to load with amio as well given possiblity of SVT and known ICM, lower bp 90s-100s currently. 3. ICM- LVEF 30-35%, s/p BiV ICD, chronic NYHA III on home o2 4. Acute on Chronic diastolic+systolic heart failure - fluid mgmt with iHD. recurrent L pleural effusion, may need repeat thoracentesis 5 Chronic renal failure on dialysis failed to prior transplants per history. 6. Hyperlipidemia. 7. CAD- s/p many previous PCI. known [employer] ostial LCx with L/R-L collaterals. [employer] branch of D1 with l-l collaterals . patent lad/Diag stents. distal RCA disease s/p PCI 11/2016 Impression: - watch closely for signs of infection, sepsis - con asa 81mg daily - cont plavix 75 mg daily - hold bp meds as bp 90s-100s - load with amio given tachy and lower bp, though may be sinus tach, difficult to distinguish - cont statin - cont dialysis per renal - pt intolerant of bb/nitrate previously Problems: Consultation Date/Type/Reason Admit Date/Time 07/05/2017 Date of Consultation: Jul 05, 2017 Type of Consultation: Cardiology Reason for Consultation Tachycardia Referring Provider: RIMMA ARRIOLA MD Hx of Present Illness Mr. Clemens is a 71 y.o. man with h/o of ICM s/p multiple SC, CAD s/p numerous PCI last 11/2016 to RCA, chronic severe systolic heart failure, LBBB s/p BiV ICD , HTN, DM2, ESRD on iHD MWF via L AV fistula. Pt recently admitted with bacteremia, fevers, found to have large L pleural effusion s/p thoracentesis which was not infectious on studies, and nstemi trop to 3 with acute on chronic systolic heart failure managed medically per patient preference. Pt now returns with chest pain and sob. per ED pt awoke around 3 AM he started to have chest pain that was pressure-like and central with associated shortness of breath. No fevers, chills, cough, no pleuritic pain, no lower extremity swelling. pt was feeling better in ed, was anxious given ativan now somnolent but arousable. denies any current chest pain when aroused, but falls asleep. hr 90s on arrival, then up to 130s-140s now with WCT on monitor. hr slows with carotid massage to 130 and p waves visible. pt without true fever, but reports chills. unable to obtain further history at this time pt somnolent, unable to obtain full ros Past Medical History 1. Cardiac history as mentioned in HPI 2. Chronic kidney disease, on dialysis. via L arm fistula 3. Hypertension. 4. Hyperlipidemia. 5. Peripheral vascular disease. 6. 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 7. Ischemic cardiomyopathy with moderate systolic dysfunction, chronic systolic heart failure 8 LBBB QRS 170ms s/p BiV ICD at [facility] Past Surgical History PCI kidney transplant L arm fistula placement Past Surgical Hx: other (pacemaker) Past Surgical Hx: other Family History Significant Family History: other (no cad) Social History Alcohol Use: none Smoking Status: Never smoker Drug Use: none Exam/Review of Systems Vital Signs Vitals Vital Signs Date Time Temp Pulse Resp B/P Pulse Ox O2 Delivery O2 Flow Rate FiO2 07/05/17 09:57 99.9 07/05/17 09:03 140 25 103/54 98 5.0 07/05/17 07:00 Nasal Cannula Exam Constitutional: alert, oriented Psych: normal mood Head: normocephalic Eyes: nl conjunctiva ENMT: nl external ears & nose Neck: jvd, supple Respiratory: decreased bs L side posterior Cardiovascular: regular rate and rhythm, ii/vi broderick rusb. No edema Gastrointestinal: soft Ext: L fistula + thrill Results Result Diagram: 07/05/17 0550 07/05/17 0550 Results 24 hrs Laboratory Tests Test 07/05/17 05:50 White Blood Count 6.7 # Red Blood Count 3.15 L Hemoglobin 9.2 L Hematocrit 31.3 L Mean Corpuscular Volume 99.4 Mean Corpuscular Hemoglobin 29.2 Mean Corpuscular Hemoglobin Concent 29.4 L Red Cell Distribution Width 18.3 H Platelet Count 233 Mean Platelet Volume 10.1 Neutrophils % 71.9 Lymphocytes % 18.2 Monocytes % 5.6 Eosinophils % 3.2 Basophils % 0.6 Nucleated Red Blood Cells % 0.0 Neutrophils # 4.8 Lymphocytes # 1.2 Monocytes # 0.4 Eosinophils # 0.2 Basophils # 0.0 Nucleated Red Blood Cells # 0.0 Sodium Level 139 Potassium Level 4.4 Chloride Level 99 Carbon Dioxide Level 29 Anion Gap 15 Blood Urea Nitrogen 35 H Creatinine 5.34 H Glucose Level 116 Calcium Level 9.2 Total Bilirubin 0.5 Direct Bilirubin 0.40 H Indirect Bilirubin 0.1 Aspartate Amino Transf (AST/SGOT) 226 H Alanine Aminotransferase (ALT/SGPT) 43 Alkaline Phosphatase 584 H Troponin I 0.036 B-Type Natriuretic Peptide 02345 H Total Protein 6.5 Albumin 3.1 L Globulin 3.40 H Albumin/Globulin Ratio 0.91 Medications Medications Current Medications Allopurinol (Zyloprim) 100 mg DAILY PO ; Start 07/06/17 at 09:00 Alprazolam (Xanax) 0.25 mg QHS PRN PO ANXIETY; Start 07/05/17 at 09:30 Aspirin (Halfprin) 81 mg QHS PO ; Start 07/05/17 at 21:00 Atorvastatin Calcium (Lipitor) 40 mg QHS PO ; Start 07/05/17 at 21:00 Clopidogrel Bisulfate (plaVIX) 75 mg QHS PO ; Start 07/05/17 at 21:00 Docusate Sodium (Colace) 100 mg TID PRN PO CONSTIPATION; Start 07/05/17 at 09: 30 Acetaminophen/ Hydrocodone Bitart ([place] (7.5-325)) 1 tab DAILY PRN PO SEVERE PAIN LEVEL 7-10; Start 07/05/17 at 09:30 Losartan Potassium (Cozaar) 25 mg DAILY PO ; Start 07/06/17 at 09:00 Multivit/Ca Carb/ B Cmplx/FA/Prenat (Gi-Evelio) 1 tab DAILY PO ; Start 07/06/17 at 09:00 Nitroglycerin (Nitroglycerin ([place])) 1 spray Q5M PRN TL CHEST PAIN; Start at 09:30 Pantoprazole (Protonix Tab) 40 mg Q12@06,18 PO ; Start 07/05/17 at 18:00 Ranolazine (Ranexa) 500 mg Q12 PO ; Start 07/05/17 at 21:00 Ropinirole HCl (Requip) 0.5 mg TID PO ; Start 07/05/17 at 13:00 Zolpidem Tartrate (Ambien) 7.5 mg QHS PRN PO INSOMNIA; Start 07/05/17 at 09:30 Ondansetron HCl (Zofran Inj) 4 mg Q6H PRN IV NAUSEA AND/OR VOMITING; Start at 09:30 Nitroglycerin (Nitroglycerin (Sl Tab) 0.4 Mg) 1 tab Q5M PRN SL CHEST PAIN; Start 07/05/17 at 09:30 Acetaminophen (Tylenol Tab) 650 mg Q6H PRN PO PAIN LEVEL 1-3 OR FEVER; Start at 09:30 Docusate Sodium (Colace) 100 mg Q12H PRN PO CONSTIPATION; Start 07/05/17 at 09: 30 Bisacodyl 5 mg 5 mg DAILY PRN PO CONSTIPATION; Start 07/05/17 at 09:30 Piperacillin Sod/ Tazobactam Sod 50 ml @ 100 mls/hr Q8 IVPB ; Start 07/05/17 at 14:00 Levofloxacin/ Dextrose 100 ml @ 100 mls/hr ONCE ONCE IVPB ; Start 07/05/17 at 09:30; Stop 07/05/17 at 10:29 Vancomycin HCl (Vancocin) 250 ml @ 125 mls/hr ONCE IVPB ; Start 07/05/17 at 09: 30; Stop 07/05/17 at 11:29 Procedures Procedures CXR with recurrent moderate left pleural effusion with associated compressive atelectasis. EKG on arrival with sinus, biv paced rhythm repeat with WCT, LBBB. tele with carotid massage shows slowing of hr with sinus tachy and intermittent pacing SUSANA VASQUEZ Jul 05, 2017 10:26
--- NOTE | 2017-07-05 10:35 | RADRPT ---
PROCEDURE: US Abdomen and Retroperitoneum. CLINICAL INDICATION: Abdominal pain. TECHNIQUE: Multiple real-time longitudinal and transverse images were acquired of the patient's ab domen and retroperitoneum utilizing a curved array transducer. COMPARISON: None. FINDINGS: Liver demonstrates mild nonspecific coarsening of the liver echotexture. No focal liver mass. Portal vein demonstrates hepatopetal flow. Gallbladder demonstrate multiple layering stones. There is no gallbladder wall thickening or perich olecystic fluid. No intra- or extrahepatic biliary dilation. Pancreas is partially visualized and grossly unremarkable. Spleen is enlarged. The kidneys are atrophic with diffuse cortical thinning. There is a cyst in the right kidney measur ing up to 4.3 cm. There is also cyst in the left kidney measuring up to 4.1 cm. No ascites. Small right pleural effusion. Proximal aorta and IVC are unremarkable. MEASUREMENTS: Liver: 15.8 cm Common Duct: 0.5 cm Right Kidney: 9.4 cm Left Kidney: 8.4 cm Spleen: 14.1 cm IMPRESSION: Atrophic kidneys with bilateral renal cysts, consistent with medical renal disease. No hydronephrosi s. Mild coarsening of the liver echotexture with subtle surface irregularity suggesting underlying diff use liver disease and/or early changes of cirrhosis. Cholelithiasis without sonographic evidence of cholecystitis or biliary dilatation. Splenomegaly suggesting portal hypertension. Small right pleural effusion. RPTAT: EE .Igor Soria MD, MD Date Time Electronically viewed and signed by .Igor Soria MD, MD on 07/05/2017 10:40 .C/
[2017-07-05 11:11] LABS: TROPONIN-I 0.029 ng/ml (0.00-0.12)
[2017-07-05 11:12] LABS: CK-MB 0.66 ng/ml (0.0-2.4)
--- NOTE | 2017-07-05 11:25 | HP ---
DATE OF ADMISSION: 07/05/2017 REASON FOR ADMISSION: Recurrent chest pain and shortness of breath. HISTORY OF PRESENT ILLNESS: One of numerous [facility] admissions for this 71-year-old gentleman with known end-stage renal disease, currently maintained on outpatient hemodialysis every Thursday, Thursday, and Thursday. He also has a history of diabetes, hypertension, ischemic cardiomyopathy, and known significant coronary disease, status post numerous PCI and stenting, and more recently placement of a biventricular pacer with an AICD over at [facility]. He has been in and out of the hospital numerous times with chest pain, shortness of breath, and periodic non-ST elevation MIs. He has a known LVEF of approximately 30 percent due to his ischemic cardiomyopathy and has been followed by Dr. Perez from the cardiology service. Most recently, he was admitted to [facility] on 06/22/2017 and just discharged on 06/29/2017 when, again, he presented with weakness and chest pain. He was noted at that time to have a left-sided pleural effusion, which was tapped, but was a transudate and not an exudate. Blood cultures did show an MSSA bacteremia. He was treated with IV antibiotics and subsequently discharged in stable condition. He had been receiving outpatient hemodialysis, last on Thursday, when now he presents with recurrent chest pain and shortness of breath. Here in the emergency room, temperature is 99.2, blood pressure 103/50, and O2 saturation is 98 percent on 5L. Interestingly enough, in speaking with Dr. Melgar from the ER, when he put the patient on room air, he also was saturating fine. Because of his symptomatology, he now is to be admitted for further evaluation and therapy. Chest x-ray in the ER did once again reveal cardiomegaly with some pulmonary vascular congestion, and labs were notable for a normal white count of 6.7, potassium 4.4, an elevated BNP of 90,700, but stable hematocrit of 31.3. EKG does show a wide complex left bundle-branch block tachycardia, and he is hemodynamically stable. He has a known left bundle, and Dr. Perez has been asked to see him. PAST MEDICAL HISTORY: Please see full dictated problem list. SOCIAL HABITS: Tobacco: None. Alcohol: None. ALLERGIES: NONE. MEDICATIONS: Prior to admission include: 1. Gi-Evelio 1 daily. 2. Renvela 3 tablets t.i.d. with meals. 3. Requip 0.5 mg t.i.d. 4. Ranexa 500 mg b.i.d. 5. Gabapentin 100 mg at bedtime. 6. Aspirin 81 mg daily. 7. Plavix 75 mg daily. 8. Lipitor 40 mg daily. 9. Allopurinol 100 mg daily. 10. Xanax p.r.n. 11. Losartan 25 mg daily. REVIEW OF SYSTEMS: As per History of Present Illness. PHYSICAL EXAMINATION: GENERAL: Awake and alert male stating he just does not feel well. VITAL SIGNS: Currently he has a temperature of 99.2; blood pressure is 105/50; heart rate is 110 and is sinus tachycardia; respirations are 12 and unlabored; O2 saturation is 98 percent on 5L. SKIN: Warm, well perfused. HEENT: Head normocephalic, atraumatic. Eyes: Pupils are round and reactive. Extraocular movements appear full. Sclerae anicteric. Pharynx: No lesions. NECK: JVP is not distended. BACK: No CVAT. LUNGS: Show diminished breath sounds at the left base. HEART: S1, S2, tachycardia, no new murmurs. ABDOMEN: Soft. No organomegaly. EXTREMITIES: No clubbing, cyanosis, or edema. There is a functioning left upper extremity AV graft. LABORATORY DATA: White count 6.7, hemoglobin 9.2, hematocrit 31.3, platelet count 233,000. Sodium 139, potassium 4.4, chloride 99, bicarbonate 29, BUN 35, creatinine 5.34, glucose 116, calcium 9.2. Total bilirubin 0.5, AST 226, ALT 43, alkaline phosphatase elevated at 584. Troponin 0.036. Total protein 6.5, albumin 3.1. PROBLEM LIST: 1. Recurrent chest pain, albeit initial troponin is negative. 2. Recurrent shortness of breath with some pulmonary congestion on chest x-ray. 3. End-stage renal disease, maintained on outpatient hemodialysis every Thursday, Thursday, and Thursday, now with recurrent fluid overload. 4. Elevated alkaline phosphatase of unclear etiology. Wonder about his gallbladder, albeit he denies abdominal pain, nausea, or vomiting. 5. Diabetes mellitus, currently diet controlled. 6. Known ischemic cardiomyopathy with left ventricular ejection fraction (LVEF) of 30 percent. 7. Status post biventricular AICD placed at [facility]. 8. Wide complex tachycardia, Dr. Perez to review. 9. Hyperlipidemia. 10. History of recurrent non-ST elevation myocardial infarction ([place]). 11. Recent Methicillin-susceptible Staphylococcus aureus (MSSA) bacteremia successfully treated with antibiotics: Currently no fever or leukocytosis. 12. Prior history of renal transplant x2 in the past. 13. Restless legs syndrome, controlled on Requip. 14. Hypertension, currently inactive. RECOMMENDATIONS: 1. Admit to hospital. 2. Yuan culture. 3. Dr. Perez to see. 4. Rule out [place]. 5. Urgent dialysis. 6. Cover with antibiotics after cultures. 7. Obtain right upper quadrant ultrasound to assess elevated alkaline phosphatase. 8. Further recommendations pending response to above. Dictated By: Steven Johnson MD /jay/toro /Document#: [id number]
[2017-07-05] MEDS ORDERED: AMIODARONE 900 MG in DEXTROSE 5% 482 ML IV STA (12:05)
[2017-07-05] MEDS: SEVELAMER CARBONATE 0.8 GM PKT PO SCH ×2 (13:00→17:13)
[2017-07-05] MEDS ORDERED: NORepinephrine 8MG/250 ML (PMX 250 ML IV SCH (14:30)
[2017-07-05] MEDS: ALBUMIN HUMAN 25% 100 ML IV PRN ×2 (15:08→16:09)
[2017-07-05 16:10] LABS: CK-MB 0.88 ng/ml (0.0-2.4); TROPONIN-I 0.209 ng/ml (0.00-0.12)
[2017-07-05] MEDS: ROPINIROLE 0.25 MG TAB PO SCH ×2 (16:18→21:40)
[2017-07-05] MEDS: PANTOPRAZOLE (EC) 40 MG TAB PO SCH (17:13)
[2017-07-05] MEDS: ALBUTEROL/IPRATROPIUM (NEB) 3 ML AMP HHN SCH ×2 (17:29→19:20)
[2017-07-05] MEDS ORDERED: LIDOCAINE 1% (MPF) 5 ML VIAL SC ONE (18:00)
[2017-07-05] MEDS: RANOLAZINE (SR) 500 MG TAB PO SCH (21:39)
[2017-07-05] MEDS: ASPIRIN (EC) 81 MG TAB PO SCH (21:40)
[2017-07-05] MEDS: CLOPIDOGREL 75 MG TAB PO SCH (21:40)
[2017-07-05] MEDS: ATORVASTATIN 40 MG TAB PO SCH (21:40)
[2017-07-05] MEDS: DOCUSATE SODIUM 100 MG CAP PO PRN (21:40)
[2017-07-05] MEDS: ZOLPIDEM 5 MG TAB PO PRN (21:40)
[2017-07-05 23:10] LABS: CK-MB 0.65 ng/ml (0.0-2.4)
[2017-07-05 23:36] LABS: TROPONIN-I 0.573 ng/ml (0.00-0.12)
[2017-07-06] VITALS (34 sets, daily range): BP systolic 89–127; BP diastolic 28–81; PULSE 95–116; RESP 19–32
[2017-07-06] MEDS: ALBUTEROL/IPRATROPIUM (NEB) 3 ML AMP HHN SCH ×4 (01:15→20:13)
[2017-07-06] MEDS: PANTOPRAZOLE (EC) 40 MG TAB PO SCH ×2 (06:22→17:56)
[2017-07-06] MEDS: PIPER-TAZO 2.25 GM (PMX) 50 ML IVPB SCH ×3 (06:22→21:41)
[2017-07-06 06:46] LABS: BASOPHILS % 0.1 % (0.0-2.0); HEMATOCRIT 32.1 % (42.0-52.0); HEMOGLOBIN 9.4 g/dl (14.0-18.0); LYMPHOCYTES # 1.5 10^3/ul (0.8-2.9); LYMPHOCYTES % 7.3 % (15.0-51.0); MEAN CORPUSCULAR HGB CONC 29.3 g/dl (32.0-37.0); MEAN CORPUSCULAR VOLUME 102.6 fl (82.0-101.0); MEAN PLATELET VOLUME 10.4 fl (7.4-10.4); MONOCYTE # 0.7 10^3/ul (0.3-0.9); MONOCYTES % 3.5 % (0.0-11.0); NEUTROPHIL # 18.1 10^3/ul (1.6-7.5); NEUTROPHILS % 88.2 % (39.0-77.0); PLATELET COUNT 214 10^3/UL (140-415); RED BLOOD COUNT 3.13 10^6/ul (4.70-6.10); RED CELL DISTRIBUTION WIDTH 18.7 % (11.5-14.5); WHITE BLOOD COUNT 20.5 10^3/ul (4.8-10.8)
--- NOTE | 2017-07-06 07:10 | RADRPT ---
PROCEDURE: XR Chest. CLINICAL INDICATION: Shortness of breath TECHNIQUE: An AP view of the chest was obtained. COMPARISON: Chest x-ray dated 07/05/2017 FINDINGS: There is a right subclavian biventricular pacemaker AICD. Metallic stent graft material is seen with in the right subclavian vein. There is prominence of the interstitial and central pulmonary vascular markings with small bilatera l pleural effusions. There is obscuration of the left diaphragm. There are diffuse left lung interst itial opacities. No pneumothorax is seen. The cardiomediastinal silhouette is mildly enlarged . Ca lcifications are seen within the aortic arch. The osseous structures demonstrate senescent changes. IMPRESSION: 1. Findings suggestive of pulmonary vascular congestion with small bilateral pleural effusions. Fi ndings are mildly increased when compared to the prior examination. 2. Diffuse left lung interstitial opacities may reflect asymmetric interstitial edema or pneumonia. Findings are also increased from prior examination. 3. Mild cardiomegaly and aortic atherosclerosis. 4. Right subclavian biventricular pacemaker AICD. RPTAT: HH .Shasta Cisneros MD, MD Date Time Electronically viewed and signed by .Shasta Cisneros MD, MD on 07/06/2017 07:10 .G/
[2017-07-06 07:20] LABS: ALBUMIN 3.3 g/dl (3.3-4.9); ALBUMIN/GLOBULIN RATIO 1.1; BILIRUBIN,DIRECT 2.5 mg/dl (0.00-0.20); BILIRUBIN,INDIRECT 0.4 mg/dl (0-1.1); BILIRUBIN,TOTAL 2.9 mg/dl (0.2-1.3); CALCIUM 9.5 mg/dl (8.4-10.2); CHOL/HDL RATIO 2.5 RATIO; CREATININE 4.14 mg/dl (0.61-1.24); MAGNESIUM 2.1 mg/dl (1.7-2.5); POTASSIUM 4.1 mmol/L (3.5-5.1); TOTAL PROTEIN 6.3 g/dl (6.1-8.1)
[2017-07-06] MEDS: SEVELAMER CARBONATE 0.8 GM PKT PO SCH ×2 (07:35→11:30)
[2017-07-06 07:50] LABS: THYROID STIMULATING HORMONE 0.883 MIU/L (0.465-4.680)
--- NOTE | 2017-07-06 07:59 | CONS ---
Date/Time of Note Date/Time of Note DATE: 07/06/17 TIME: 07:55 Assessment/Plan Assessment/Plan Problems: (1) Elevated liver enzymes Comment: GIULIA w gallstones, but no ductal dilatation or finding of acute vladimir... IS on abx tho... will get CT scan if hemodyn stable later (2) Leukocytosis Comment: s/p cxs... on broad abx.. await cx results (3) Pleural effusion Comment: despite HD.. s/p thoracentesis 2 weeks ago.. was a transudate (4) Chest pain Status: Acute Comment: resolved.. small trop bump Qualifiers: Chest pain type: unspecified Qualified Code: R07.9 - Chest pain, unspecified type (5) CHF (congestive heart failure) Comment: better post HD w 3l out yesterday Qualifiers: Congestive heart failure type: unspecified congestive heart failure type Congestive heart failure chronicity: acute on chronic Qualified Code: I50.9 - Acute on chronic congestive heart failure, unspecified congestive heart failure type (6) ESRD (end stage renal disease) on dialysis Status: Chronic Comment: will do HD in am tomorrow Consultation Date/Type/Reason Admit Date/Time Jul 05, 2017 at 08:11 Initial Consult Date 07/05/17 Type of Consultation: renal Referring Provider: RIMMA ARRIOLA MD 24 HR Interval Summary Free Text/Dictation looks better... less pain.... on less Levo Subjective hx not possible: pt non-verbal, other (awake/alert) Exam/Review of Systems Vital Signs Vitals Vital Signs Date Time Temp Pulse Resp B/P Pulse Ox O2 Delivery O2 Flow Rate FiO2 07/06/17 07:38 100 9.0 07/06/17 07:38 110 23 Simple Mask 07/06/17 06:00 112/57 07/06/17 04:00 98.5 Intake and Output 07/05/17 07/05/17 07/06/17 15:00 23:00 07:00 Intake Total 368.75 ml 1585.00 ml 340.00 ml Output Total 3500 ml 0 ml Balance 368.75 ml -1915.00 ml 340.00 ml Exam Constitutional: alert Head: normocephalic Eyes: nl conjunctiva Neck: supple Respiratory: diminished breath sounds (L chest) Cardiovascular: regular rate and rhythm Gastrointestinal: nl liver, spleen, non-tender, soft Extremities: pitting pedal edema (1+) Results Result Diagram: 07/06/17 0536 07/06/17 0536 Results 24 hrs Laboratory Tests Test 07/05/17 10:00 07/05/17 11:31 07/05/17 12:41 07/05/17 15:17 Creatine Kinase 23 30 Creatine Kinase Index 2.9 2.9 Creatinine Kinase MB (Mass) 0.66 0.88 Troponin I 0.029 0.209 *H Lactic Acid Level 2.4 *H 2.2 *H Test 07/05/17 15:18 07/05/17 22:09 07/06/17 05:36 Lactic Acid Level 1.3 Creatine Kinase 58 Creatine Kinase Index 1.1 Creatinine Kinase MB (Mass) 0.65 Troponin I 0.573 *H White Blood Count 20.5 #H Red Blood Count 3.13 L Hemoglobin 9.4 L Hematocrit 32.1 L Mean Corpuscular Volume 102.6 H Mean Corpuscular Hemoglobin 30.0 Mean Corpuscular Hemoglobin Concent 29.3 L Red Cell Distribution Width 18.7 H Platelet Count 214 Mean Platelet Volume 10.4 Neutrophils % 88.2 H Lymphocytes % 7.3 L Monocytes % 3.5 Eosinophils % 0.0 Basophils % 0.1 Nucleated Red Blood Cells % 0.0 Neutrophils # 18.1 H Lymphocytes # 1.5 Monocytes # 0.7 Eosinophils # 0.0 Basophils # 0.0 Nucleated Red Blood Cells # 0.0 Sodium Level 140 Potassium Level 4.1 Chloride Level 97 Carbon Dioxide Level 33 H Anion Gap 14 Blood Urea Nitrogen 27 H Creatinine 4.14 #H Glucose Level 96 Calcium Level 9.5 Magnesium Level 2.1 Total Bilirubin 2.9 #H Direct Bilirubin 2.50 #H Indirect Bilirubin 0.4 Aspartate Amino Transf (AST/SGOT) 379 #H Alanine Aminotransferase (ALT/SGPT) 113 H Alkaline Phosphatase 601 H Total Protein 6.3 Albumin 3.3 Globulin 3.00 Albumin/Globulin Ratio 1.10 Triglycerides Level 123 Cholesterol Level 67 L LDL Cholesterol, Calculated 16 HDL Cholesterol 26 L Cholesterol/HDL Ratio 2.5 Thyroid Stimulating Hormone (TSH) Pending Medications Medications Current Medications Allopurinol (Zyloprim) 100 mg DAILY PO ; Start 07/06/17 at 09:00 Alprazolam (Xanax) 0.25 mg QHS PRN PO ANXIETY; Start 07/05/17 at 09:30 Aspirin (Halfprin) 81 mg QHS PO Last administered on 07/05/17 21:40; Admin Dose 81 MG; Start 07/05/17 at 21:00 Atorvastatin Calcium (Lipitor) 40 mg QHS PO Last administered on 07/05/17 21: 40; Admin Dose 40 MG; Start 07/05/17 at 21:00 Clopidogrel Bisulfate (plaVIX) 75 mg QHS PO Last administered on 07/05/17 21: 40; Admin Dose 75 MG; Start 07/05/17 at 21:00 Docusate Sodium (Colace) 100 mg TID PRN PO CONSTIPATION Last administered on 21:40; Admin Dose 100 MG; Start 07/05/17 at 09:30 Acetaminophen/ Hydrocodone Bitart ([place] (7.5-325)) 1 tab DAILY PRN PO SEVERE PAIN LEVEL 7-10; Start 07/05/17 at 09:30 Multivit/Ca Carb/ B Cmplx/FA/Prenat (Gi-Evelio) 1 tab DAILY PO ; Start 07/06/17 at 09:00 Nitroglycerin (Nitroglycerin ([place])) 1 spray Q5M PRN TL CHEST PAIN; Start at 09:30 Pantoprazole (Protonix Tab) 40 mg Q12@06,18 PO Last administered on 07/06/17 06:22; Admin Dose 40 MG; Start 07/05/17 at 18:00 Ranolazine (Ranexa) 500 mg Q12 PO Last administered on 07/05/17 21:39; Admin Dose 500 MG; Start 07/05/17 at 21:00 Ropinirole HCl (Requip) 0.5 mg TID PO Last administered on 07/05/17 21:40; Admin Dose 0.5 MG; Start 07/05/17 at 13:00 Zolpidem Tartrate (Ambien) 7.5 mg QHS PRN PO INSOMNIA Last administered on 07/05 21:40; Admin Dose 7.5 MG; Start 07/05/17 at 09:30 Ondansetron HCl (Zofran Inj) 4 mg Q6H PRN IV NAUSEA AND/OR VOMITING; Start at 09:30 Nitroglycerin (Nitroglycerin (Sl Tab) 0.4 Mg) 1 tab Q5M PRN SL CHEST PAIN; Start 07/05/17 at 09:30 Acetaminophen (Tylenol Tab) 650 mg Q6H PRN PO PAIN LEVEL 1-3 OR FEVER; Start at 09:30 Docusate Sodium (Colace) 100 mg Q12H PRN PO CONSTIPATION; Start 07/05/17 at 09: 30 Bisacodyl 5 mg 5 mg DAILY PRN PO CONSTIPATION; Start 07/05/17 at 09:30 Piperacillin Sod/ Tazobactam Sod 50 ml @ 100 mls/hr Q8 IVPB Last administered on 07/06/17t 06:22; Admin Dose 100 MLS/HR; Start 07/05/17 at 14:00 Norepinephrine/ Dextrose (Levophed/D5W) 500 ml @ 1.87 mls/hr TITRATE IV ; Start 07/05/17 at 14:30 POP BOYCE MD Jul 06, 2017 07:59
[2017-07-06] MEDS ORDERED: LOSARTAN 25 MG TAB PO SCH (09:00)
[2017-07-06] MEDS ORDERED: BARIUM SULF 2% 450 ML BTL (BERRY SMOOTHIE) PO SCH (09:00)
[2017-07-06] MEDS: POLYETHYLENE GLYCOL 17 GM PACKET PO SCH (09:39)
[2017-07-06] MEDS: MULTIVIT/CA CARB/B CMPLX/FA TAB PO SCH (09:39)
[2017-07-06] MEDS: RANOLAZINE (SR) 500 MG TAB PO SCH ×2 (09:40→20:43)
[2017-07-06] MEDS: ROPINIROLE 0.25 MG TAB PO SCH ×3 (09:40→20:44)
[2017-07-06] MEDS: ALLOPURINOL 100 MG TAB PO SCH (09:40)
[2017-07-06] MEDS ORDERED: IOHEXOL 300MG/ML 150 ML BTL ONE (10:18)
[2017-07-06] MEDS ORDERED: SOD CHLORIDE 0.9% 100 ML ONE (10:18)
--- NOTE | 2017-07-06 14:53 | RADRPT ---
PROCEDURE: CT Chest, Abdomen and Pelvis with contrast. CLINICAL INDICATION: Elevated LFTs. Pleural effusion. End-stage renal disease. TECHNIQUE: CT scan of the chest, abdomen, and pelvis with contrast was performed on a multi-detect or high-resolution CT scanner. The patient was scanned following the uncomplicated intravenous adm inistration of 100 cc of Omnipaque 300 intravenous contrast. Coronal and sagittal reformatted imag es were obtained from the axial source images. Images were [facility] The total exam CTDI equals 15.47 mGy and the total exam DLP equals 1249.08 mGy-cm. One or more of the following dose reduction techniques were used: Automated exposure control. Adjustment of the mA and/or kV according to patient size. Use of iterative reconstruction technique. COMPARISON: CT chest 06/26/2017 FINDINGS: CT chest: Moderate to large left and moderate right pleural effusions are present. There is complete atelectas is of the left lower lobe and partial atelectasis of the posterior left upper lobe. There is partial atelectasis of the right lower lobe. The tracheobronchial tree is clear. Numerous venous collaterals are seen in the right upper arm and chest wall. There is a stent in the right upper arm extending into the axillary vein. The mediastinum is unremarkable without evidence f or mass or lymphadenopathy. Biventricular AICD leads are noted. The vascular structures of the media stinum are normal in course and caliber. Aortic vascular calcifications and coronary artery calcifi cations are present. The heart size is borderline enlarged without evidence for pericardial thickeni ng or effusion. The axillary regions, subpectoral regions, and supraclavicular regions are all unrem arkable. CT abdomen: The liver is normal in size and density without focal mass or intrahepatic biliary dilatation. There is mild splenomegaly. The stomach is partially collapsed, but is grossly unremarkable. The pancrea s as visualized is normal. There is moderate distension of the gallbladder with abnormal wall thick ening and minimal pericholecystic fluid. Sub centimeter gallstones are seen in the neck of the gallb ladder. The adrenal glands are symmetric and normal. Markedly atrophied bilateral kidneys with no h ydronephrosis. Multiple bilateral renal cortical cysts are present. There is approximately 1.1 cm is ointense exophytic structure in the lower pole left kidney. The aorta is of normal caliber. Aortic vascular calcifications are present. There is no retroperit rabago lymphadenopathy. The katerine hepatis region is clear. There is circumferential abnormal wall t hickening of the mid transverse colon measures approximately 6.7 cm in length. There is mild stool r etention in the proximal right colon. Distal transverse and left colon is decompressed. CT pelvis: The evaluation of the pelvis is somewhat limited due to bilateral hip prosthesis. The small bowel lo ops situated within the pelvis are unremarkable. The appendix is normal. The pelvic organs are ced l. The pelvic sidewalls and inguinal regions are clear. The sigmoid colon and rectum are all unrem arkable. No mass, lymphadenopathy, or free fluid is seen. No acute inflammation is seen. The surrounding osseous structures are remarkable for degenerative spondylosis of the spine. No ost eolytic or osteoblastic lesion is detected. Bilateral hydroceles are present. Partially imaged circu mferential calcification is seen in the right hemiscrotum. IMPRESSION: Chest: 1. Moderate to large left pleural effusion with complete atelectasis of the left lower lobe and par tial posterior atelectasis of the left upper lobe. 2. Moderate right pleural effusion with partial atelectasis of the right lower lobe. 3. Tracheobronchial tree is clear. 4. Extensive aortic and coronary artery calcifications. 5. Venous collaterals in the right anterior and lateral chest wall. Abdomen and pelvis: 1. Circumferential abnormal wall thickening of the mid transverse colon measures up to 6.7 cm in norberto gth concerning for primary colonic malignancy. Recommend colonoscopy evaluation. 2. No suspicious focal liver mass. 3. Moderately distended gallbladder containing sub-centimeter gallstones and mild abnormal wall thi ckening suspicious for acute cholecystitis. If there is clinical uncertainty, recommend HIDA scan fo r further evaluation. 4. Mild splenomegaly. 5. Atrophic bilateral kidneys with no hydronephrosis. 6. Multiple bilateral renal cortical cysts including an exophytic 1.1 cm isodense structure which c ould represent a proteinaceous/hemorrhagic cyst. Attention on follow-up is recommended. 7. Extensive vascular calcifications. RPTAT: BB .Eliza Elizabeth MD, MD Date Time Electronically viewed and signed by .Eliza Elizabeth MD, on 07/06/2017 14:52 .O/
--- NOTE | 2017-07-06 17:20 | CONS ---
Date/Time of Note Date/Time of Note DATE: 07/06/17 TIME: 17:14 Assessment/Plan Assessment/Plan Chief Complaint/Hosp Course ASSESSMENT: 1. Sepsis- unclear source, improving. on abx. will need to check cultures for persistent bacteremia, consider ANTWON as well to r/o vegetation on icd/pacing device 2. Chest pain- low level trop leak, but also could be demand given tachy/sepsis picture. pt previously declined future intervention/invasive procedure. if sig trop leak will discuss again. 3. WCT- likely sinus tachy with [place] LBBB, no e/o sig arrhythmia. ICD in place 4. ICM- LVEF 30-35%, s/p BiV ICD, chronic NYHA III on home o2 5. Acute on Chronic diastolic+systolic heart failure - fluid mgmt with iHD. recurrent L pleural effusion, may need repeat thoracentesis 6 Chronic renal failure on dialysis failed to prior transplants per history. 7. Hyperlipidemia. 8. CAD- s/p many previous PCI. known [employer]OCIATE ostial LCx with L/R-L collaterals. 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 patent lad/Diag stents. distal RCA disease s/p PCI 11/2016 Impression: - con asa 81mg daily - cont plavix 75 mg daily - hold bp meds as bp 90s-100s - d/c amio given lower bp, no true VT - cont statin - cont dialysis per renal - pt intolerant of bb/nitrate previously - will consider ANTWON depending on cultures, course Problems: Consultation Date/Type/Reason Admit Date/Time Jul 05, 2017 at 08:11 Initial Consult Date 07/05/17 Type of Consultation: cardiology Referring Provider: RIMMA ARRIOLA MD 24 HR Interval Summary Free Text/Dictation pt septic, on levophed overnight, now improved off levophed. hr improved but bp still 90s systolic. pt denies dizziness, cp. still sob. tele reviewed: sinus and sinus tachy with paced rhythm. no vt Detailed Summary Eyes: no complaints ENT: no complaints Respiratory: shortness of breath Cardiovascular: no complaints Gastrointestinal: no complaints Exam/Review of Systems Vital Signs Vitals Vital Signs Date Time Temp Pulse Resp B/P Pulse Ox O2 Delivery O2 Flow Rate FiO2 07/06/17 16:00 97 07/06/17 15:00 24 102/46 100 Mask 07/06/17 11:00 99.0 07/06/17 08:00 8.0 Intake and Output 07/05/17 07/05/17 07/06/17 15:00 23:00 07:00 Intake Total 368.75 ml 1585.00 ml 340.00 ml Output Total 3500 ml 0 ml Balance 368.75 ml -1915.00 ml 340.00 ml Exam Constitutional: alert, oriented Psych: normal mood Head: normocephalic Eyes: nl conjunctiva ENMT: nl external ears & nose Neck: jvd, supple Respiratory: decreased bs L side posterior Cardiovascular: regular rate and rhythm, ii/vi broderick rusb. No edema Gastrointestinal: soft, no ttp Ext: L fistula + thrill Results Result Diagram: 07/06/17 0536 07/06/17 0536 Results 24 hrs Laboratory Tests Test 07/05/17 22:09 07/06/17 05:36 Creatine Kinase 58 Creatine Kinase Index 1.1 Creatinine Kinase MB (Mass) 0.65 Troponin I 0.573 *H White Blood Count 20.5 #H Red Blood Count 3.13 L Hemoglobin 9.4 L Hematocrit 32.1 L Mean Corpuscular Volume 102.6 H Mean Corpuscular Hemoglobin 30.0 Mean Corpuscular Hemoglobin Concent 29.3 L Red Cell Distribution Width 18.7 H Platelet Count 214 Mean Platelet Volume 10.4 Neutrophils % 88.2 H Lymphocytes % 7.3 L Monocytes % 3.5 Eosinophils % 0.0 Basophils % 0.1 Nucleated Red Blood Cells % 0.0 Neutrophils # 18.1 H Lymphocytes # 1.5 Monocytes # 0.7 Eosinophils # 0.0 Basophils # 0.0 Nucleated Red Blood Cells # 0.0 Sodium Level 140 Potassium Level 4.1 Chloride Level 97 Carbon Dioxide Level 33 H Anion Gap 14 Blood Urea Nitrogen 27 H Creatinine 4.14 #H Glucose Level 96 Calcium Level 9.5 Magnesium Level 2.1 Total Bilirubin 2.9 #H Direct Bilirubin 2.50 #H Indirect Bilirubin 0.4 Aspartate Amino Transf (AST/SGOT) 379 #H Alanine Aminotransferase (ALT/SGPT) 113 H Alkaline Phosphatase 601 H Total Protein 6.3 Albumin 3.3 Globulin 3.00 Albumin/Globulin Ratio 1.10 Triglycerides Level 123 Cholesterol Level 67 L LDL Cholesterol, Calculated 16 HDL Cholesterol 26 L Cholesterol/HDL Ratio 2.5 Thyroid Stimulating Hormone (TSH) 0.883 Medications Medications Current Medications Allopurinol (Zyloprim) 100 mg DAILY PO Last administered on 07/06/17 09:40; Admin Dose 100 MG; Start 07/06/17 at 09:00 Alprazolam (Xanax) 0.25 mg QHS PRN PO ANXIETY; Start 07/05/17 at 09:30 Aspirin (Halfprin) 81 mg QHS PO Last administered on 07/05/17 21:40; Admin Dose 81 MG; Start 07/05/17 at 21:00 Atorvastatin Calcium (Lipitor) 40 mg QHS PO Last administered on 07/05/17 21: 40; Admin Dose 40 MG; Start 07/05/17 at 21:00 Clopidogrel Bisulfate (plaVIX) 75 mg QHS PO Last administered on 07/05/17 21: 40; Admin Dose 75 MG; Start 07/05/17 at 21:00 Docusate Sodium (Colace) 100 mg TID PRN PO CONSTIPATION Last administered on 21:40; Admin Dose 100 MG; Start 07/05/17 at 09:30 Acetaminophen/ Hydrocodone Bitart ([place] (7.5-325)) 1 tab DAILY PRN PO SEVERE PAIN LEVEL 7-10; Start 07/05/17 at 09:30 Multivit/Ca Carb/ B Cmplx/FA/Prenat (Gi-Evelio) 1 tab DAILY PO Last administered on 07/06/17 09:39; Admin Dose 1 TAB; Start 07/06/17 at 09:00 Pantoprazole (Protonix Tab) 40 mg Q12@18 PO Last administered on 07/06/17 06:22; Admin Dose 40 MG; Start 07/05/17 at 18:00 Ranolazine (Ranexa) 500 mg Q12 PO Last administered on 07/06/17 09:40; Admin Dose 500 MG; Start 07/05/17 at 21:00 Ropinirole HCl (Requip) 0.5 mg TID PO Last administered on 07/06/17 13:29; Admin Dose 0.5 MG; Start 07/05/17 at 13:00 Zolpidem Tartrate (Ambien) 7.5 mg QHS PRN PO INSOMNIA Last administered on 9/17 /17at 21:40; Admin Dose 7.5 MG; Start 07/05/17 at 09:30 Ondansetron HCl (Zofran Inj) 4 mg Q6H PRN IV NAUSEA AND/OR VOMITING; Start at 09:30 Nitroglycerin (Nitroglycerin (Sl Tab) 0.4 Mg) 1 tab Q5M PRN SL CHEST PAIN; Start 07/05/17 at 09:30 Acetaminophen (Tylenol Tab) 650 mg Q6H PRN PO PAIN LEVEL 1-3 OR FEVER; Start at 09:30 Docusate Sodium (Colace) 100 mg Q12H PRN PO CONSTIPATION; Start 07/05/17 at 09: 30 Bisacodyl 5 mg 5 mg DAILY PRN PO CONSTIPATION; Start 07/05/17 at 09:30 Piperacillin Sod/ Tazobactam Sod 50 ml @ 100 mls/hr Q8 IVPB Last administered on 07/06/17 13:29; Admin Dose 100 MLS/HR; Start 07/05/17 at 14:00 Norepinephrine/ Dextrose (Levophed/D5W) 500 ml @ 1.87 mls/hr TITRATE IV ; Start 07/05/17 at 14:30 Polyethylene Glycol (Miralax) 17 gm DAILY PO Last administered on 07/06/17 09: 39; Admin Dose 17 GM; Start 07/06/17 at 09:00 Collagenase (Santyl) 1 applic DAILY TOP ; Start 07/06/17 at 17:[address] report reviewed 1. Moderate to large left pleural effusion with complete atelectasis of the left lower lobe and partial posterior atelectasis of the left upper lobe. 2. Moderate right pleural effusion with partial atelectasis of the right lower lobe. 3. Tracheobronchial tree is clear. 4. Extensive aortic and coronary artery calcifications. 5. Venous collaterals in the right anterior and lateral chest wall. Abdomen and pelvis: 1. Circumferential abnormal wall thickening of the mid transverse colon measures up to 6.7 cm in length concerning for primary colonic malignancy. Recommend colonoscopy evaluation. 2. No suspicious focal liver mass. 3. Moderately distended gallbladder containing sub-centimeter gallstones and mild abnormal wall thickening suspicious for acute cholecystitis. If there is clinical uncertainty, recommend HIDA scan for further evaluation. 4. Mild splenomegaly. 5. Atrophic bilateral kidneys with no hydronephrosis. 6. Multiple bilateral renal cortical cysts including an exophytic 1.1 cm isodense structure which could represent a proteinaceous/hemorrhagic cyst. Attention on follow-up is recommended. 7. Extensive vascular calcifications. SUSANA VASQUEZ. Jul 06, 2017 17:20
[2017-07-06] MEDS: SEVELAMER 800 MG TAB PO SCH (17:56)
[2017-07-06] MEDS: COLLAGENASE 30 GM TUBE TOP SCH (18:02)
[2017-07-06] MEDS: ZOLPIDEM 5 MG TAB PO PRN (20:42)
[2017-07-06] MEDS: ATORVASTATIN 40 MG TAB PO SCH (20:43)
[2017-07-06] MEDS: ASPIRIN (EC) 81 MG TAB PO SCH (20:43)
[2017-07-06] MEDS: CLOPIDOGREL 75 MG TAB PO SCH (20:43)
[2017-07-07] VITALS (42 sets, daily range): BP systolic 83–129; BP diastolic 34–65; PULSE 0–103; RESP 17–28
[2017-07-07] MEDS: ALBUTEROL/IPRATROPIUM (NEB) 3 ML AMP HHN SCH ×4 (02:08→19:49)
[2017-07-07 05:09] LABS: ABNORMAL IP MESSAGE 1; BASOPHILS % 0.3 % (0.0-2.0); EOSINOPHILS # 0.1 10^3/ul (0.0-0.5); EOSINOPHILS % 1.5 % (0.0-7.0); HEMATOCRIT 29.3 % (42.0-52.0); HEMOGLOBIN 8.4 g/dl (14.0-18.0); LYMPHOCYTES # 0.7 10^3/ul (0.8-2.9); LYMPHOCYTES % 8.8 % (15.0-51.0); MEAN CORPUSCULAR HGB CONC 28.7 g/dl (32.0-37.0); MEAN PLATELET VOLUME 10.1 fl (7.4-10.4); MONOCYTE # 0.4 10^3/ul (0.3-0.9); NEUTROPHIL # 6.3 10^3/ul (1.6-7.5); PLATELET COUNT 152 10^3/UL (140-415); POSITIVE DIFF @See below; RED CELL DISTRIBUTION WIDTH 18.6 % (11.5-14.5); WHITE BLOOD COUNT 7.5 10^3/ul (4.8-10.8)
[2017-07-07] MEDS: PIPER-TAZO 2.25 GM (PMX) 50 ML IVPB SCH ×3 (06:03→22:09)
[2017-07-07] MEDS: PANTOPRAZOLE (EC) 40 MG TAB PO SCH ×2 (06:03→17:58)
[2017-07-07 06:57] LABS: ALBUMIN 2.9 g/dl (3.3-4.9); BILIRUBIN,DIRECT 2.2 mg/dl (0.00-0.20); BILIRUBIN,INDIRECT 0.3 mg/dl (0-1.1); BILIRUBIN,TOTAL 2.5 mg/dl (0.2-1.3); CREATININE 5.28 mg/dl (0.61-1.24); POTASSIUM 4.2 mmol/L (3.5-5.1); TOTAL PROTEIN 5.8 g/dl (6.1-8.1)
[2017-07-07] MEDS: SEVELAMER 800 MG TAB PO SCH ×3 (07:39→17:58)
--- NOTE | 2017-07-07 07:56 | CONS ---
Date/Time of Note Date/Time of Note DATE: 07/07/17 TIME: 07:49 Assessment/Plan Assessment/Plan Problems: (1) Cholelithiasis Comment: no abd oain, but normalization of WBC after abx, and the findings of GIULIA and CT suspicious for cholecystitis... Dr Bennett to see... will get HIDA (2) Colon abnormality Comment: Dr Bennett to see... last colonoscopy maybe 5 yrs ago (3) Arteriosclerotic heart disease (ASHD) Comment: stable... f/b Dr Perez (4) Debility (5) Pleural effusion Comment: L > R... try to UF w HD... may need repeat thoracentesis (6) ESRD (end stage renal disease) on dialysis Status: Chronic Comment: for HD today... typically is MWF, tho (7) Leukocytosis Comment: resolved w Abx... blood cxs are so far (-) (8) Elevated liver enzymes Comment: improving w abx... c/w acute vladimir? Consultation Date/Type/Reason Admit Date/Time Jul 05, 2017 at 08:11 Initial Consult Date 07/05/17 Type of Consultation: renal Referring Provider: RIMMA ARRIOLA MD 24 HR Interval Summary Free Text/Dictation maybe a but better... still weak... MO abdominal pain, nausea or emesis Exam/Review of Systems Vital Signs Vitals Vital Signs Date Time Temp Pulse Resp B/P Pulse Ox O2 Delivery O2 Flow Rate FiO2 07/07/17 06:00 94 22 98/57 100 Mask 8.0 07/07/17 04:00 98.4 Intake and Output 07/06/17 07/06/17 07/07/17 15:00 23:00 07:00 Intake Total 530 ml 420 ml 50 ml Output Total 0 ml 0 ml Balance 530 ml 420 ml 50 ml Exam Constitutional: alert, oriented Psych: no complaints Neck: supple Respiratory: clear to auscultation Cardiovascular: regular rate and rhythm Gastrointestinal: nl liver, spleen, non-tender, soft Extremities: other (fxn AVF LUE) Results Result Diagram: 07/07/17 0456 07/07/17 0456 Results 24 hrs Laboratory Tests Test 07/07/17 04:56 White Blood Count 7.5 # Red Blood Count 2.90 L Hemoglobin 8.4 L Hematocrit 29.3 L Mean Corpuscular Volume 101.0 Mean Corpuscular Hemoglobin 29.0 Mean Corpuscular Hemoglobin Concent 28.7 L Red Cell Distribution Width 18.6 H Platelet Count 152 # Mean Platelet Volume 10.1 Neutrophils % 84.0 H Lymphocytes % 8.8 L Monocytes % 5.0 Eosinophils % 1.5 Basophils % 0.3 Nucleated Red Blood Cells % 0.0 Neutrophils # 6.3 Lymphocytes # 0.7 L Monocytes # 0.4 Eosinophils # 0.1 Basophils # 0.0 Nucleated Red Blood Cells # 0.0 Sodium Level 135 Potassium Level 4.2 Chloride Level 94 L Carbon Dioxide Level 28 Anion Gap 17 H Blood Urea Nitrogen 44 #H Creatinine 5.28 H Glucose Level 86 Calcium Level 9.0 Total Bilirubin 2.5 H Direct Bilirubin 2.20 H Indirect Bilirubin 0.3 Aspartate Amino Transf (AST/SGOT) 145 #H Alanine Aminotransferase (ALT/SGPT) 68 Alkaline Phosphatase 468 H Total Protein 5.8 L Albumin 2.9 L Globulin 2.90 Albumin/Globulin Ratio 1.00 Medications Medications Current Medications Allopurinol (Zyloprim) 100 mg DAILY PO Last administered on 07/06/17 09:40; Admin Dose 100 MG; Start 07/06/17 at 09:00 Alprazolam (Xanax) 0.25 mg QHS PRN PO ANXIETY; Start 07/05/17 at 09:30 Aspirin (Halfprin) 81 mg QHS PO Last administered on 07/06/17 20:43; Admin Dose 81 MG; Start 07/05/17 at 21:00 Atorvastatin Calcium (Lipitor) 40 mg QHS PO Last administered on 07/06/17 20: 43; Admin Dose 40 MG; Start 07/05/17 at 21:00 Clopidogrel Bisulfate (plaVIX) 75 mg QHS PO Last administered on 07/06/17 20: 43; Admin Dose 75 MG; Start 07/05/17 at 21:00 Docusate Sodium (Colace) 100 mg TID PRN PO CONSTIPATION Last administered on 21:40; Admin Dose 100 MG; Start 07/05/17 at 09:30 Acetaminophen/ Hydrocodone Bitart ([place] (7.5-325)) 1 tab DAILY PRN PO SEVERE PAIN LEVEL 7-10; Start 07/05/17 at 09:30 Multivit/Ca Carb/ B Cmplx/FA/Prenat (Gi-Evelio) 1 tab DAILY PO Last administered on 07/06/17 09:39; Admin Dose 1 TAB; Start 07/06/17 at 09:00 Pantoprazole (Protonix Tab) 40 mg Q12@06,18 PO Last administered on 07/07/17 06:03; Admin Dose 40 MG; Start 07/05/17 at 18:00 Ranolazine (Ranexa) 500 mg Q12 PO Last administered on 07/06/17 20:43; Admin Dose 500 MG; Start 07/05/17 at 21:00 Ropinirole HCl (Requip) 0.5 mg TID PO Last administered on 07/06/17 20:44; Admin Dose 0.5 MG; Start 07/05/17 at 13:00 Zolpidem Tartrate (Ambien) 7.5 mg QHS PRN PO INSOMNIA Last administered on 07/06 20:42; Admin Dose 7.5 MG; Start 07/05/17 at 09:30 Ondansetron HCl (Zofran Inj) 4 mg Q6H PRN IV NAUSEA AND/OR VOMITING; Start at 09:30 Nitroglycerin (Nitroglycerin (Sl Tab) 0.4 Mg) 1 tab Q5M PRN SL CHEST PAIN; Start 07/05/17 at 09:30 Acetaminophen (Tylenol Tab) 650 mg Q6H PRN PO PAIN LEVEL 1-3 OR FEVER; Start at 09:30 Docusate Sodium (Colace) 100 mg Q12H PRN PO CONSTIPATION; Start 07/05/17 at 09: 30 Bisacodyl 5 mg 5 mg DAILY PRN PO CONSTIPATION; Start 07/05/17 at 09:30 Piperacillin Sod/ Tazobactam Sod 50 ml @ 100 mls/hr Q8 IVPB Last administered on 07/07/17 06:03; Admin Dose 100 MLS/HR; Start 07/05/17 at 14:00 Norepinephrine/ Dextrose (Levophed/D5W) 500 ml @ 1.87 mls/hr TITRATE IV ; Start 07/05/17 at 14:30 Polyethylene Glycol (Miralax) 17 gm DAILY PO Last administered on 07/06/17 09: 39; Admin Dose 17 GM; Start 07/06/17 at 09:00 Collagenase (Santyl) 1 applic DAILY TOP Last administered on 07/06/17 18:02; Admin Dose 1 APPLIC; Start 07/06/17 at 17:00 POP BOYCE MD Jul 07, 2017 07:56
--- NOTE | 2017-07-07 09:47 | RADRPT ---
PROCEDURE: XR Chest. CLINICAL INDICATION: Shortness of breath. Heart failure. TECHNIQUE: Single portable view of the chest was obtained. COMPARISON: 07/06/2017 and additional priors FINDINGS: Right-sided pacemaker / AICD. Stable partially obscured cardiomediastinal silhouette. Aortic calcifi cations. Interval worsening of diffuse bilateral air space opacities, more pronounced on the left. P robable left pleural effusion. No evidence of pneumothorax. IMPRESSION: Interval worsening of diffuse bilateral air space opacities representing pulmonary edema or multifoc al pneumonia. Probable left pleural effusion. RPTAT:AAJJ Physician Evelin Date Time Electronically viewed and signed by Reece Gutierrez Physician on 07/07/2017 09:01 /
[2017-07-07] MEDS: ALBUMIN HUMAN 25% 100 ML IV PRN (10:44)
[2017-07-07] MEDS: COLLAGENASE 30 GM TUBE TOP SCH (15:25)
[2017-07-07] MEDS: POLYETHYLENE GLYCOL 17 GM PACKET PO SCH ×2 (15:26→15:30)
[2017-07-07] MEDS: MULTIVIT/CA CARB/B CMPLX/FA TAB PO SCH (15:27)
[2017-07-07] MEDS: ROPINIROLE 0.25 MG TAB PO SCH ×3 (15:30→20:47)
[2017-07-07] MEDS: RANOLAZINE (SR) 500 MG TAB PO SCH ×2 (15:30→20:46)
--- NOTE | 2017-07-07 16:05 | RADRPT ---
PROCEDURE: HIDA scan CLINICAL INDICATION: 71 -year-old patient with abdominal pain. TECHNIQUE: Following the intravenous injection of 6.0 mCi of Tc-99m Mebrofenin, multiple anterior dynamic images of the abdomen along with numerous planar spot images of the abdomen were obtained up to 90 minutes post injection. COMPARISON: No prior HIDA scans. FINDINGS: The liver is promptly visualized, demonstrates homogeneous distribution of radionuclide. Multiple anterior dynamic images of the abdomen obtained up to 90 minutes post injection failed to d emonstrate a biliary clearance of activity. IMPRESSION: 1. No biliary clearance of uptake up to 90 minutes post injection. The patient refuses to continue the imaging. 2. Persistent liver uptake. RPTAT: HH .Lisy Tolliver MD, Date Time Electronically viewed and signed by .Lisy Tolliver MD, on 07/07/2017 15:31 .L/
[2017-07-07] MEDS: ALLOPURINOL 100 MG TAB PO SCH (16:40)
--- NOTE | 2017-07-07 17:13 | CONS ---
DATE OF ADMISSION: 07/05/2017 DATE OF CONSULTATION: 07/07/2017 Thank you for having me see this patient. HISTORY OF PRESENT ILLNESS: As you know, he is a 71-year-old gentleman, who I am asked to see regarding abnormal liver tests and an abnormality of his CT scan in his colon. The patient is a 71-year-old gentleman, who was admitted to the hospital 2 days ago. He tells me that he was extremely short of breath and had chest pain. He has been seen in consultation by Cardiology. Nonetheless, in the course of his evaluation, dramatically abnormal liver tests were noted. In addition, he had a substantial leukocytosis on his 1st day of admission. His liver tests showed an AST of 379, ALT of 113 and alk phos of 601. Repeat today showed AST 145, ALT 68, alk phos 468. He has had a CT scan, which showed a moderately distended gallbladder containing subcentimeter gallstones and mild abnormal wall thickening suspicious for acute cholecystitis. The patient denies any abdominal pain. He states the chest pain that he had on admission has been decreasing. He does have complaints of chronic constipation. He tells me he last had a colonoscopy 5 years ago at [facility], which was negative. His CT scan shows an additional abnormality of his colon in that there is a 6.7-cm thickening of the mid transverse colon suspicious for malignancy. He denies any nausea, vomiting, diarrhea, rectal bleeding, melena, fever or chills. PAST MEDICAL HISTORY: Significant for hospitalization for anal surgery, renal transplant, multiple cardiac stents. Past medical history significant for adult illnesses of endstage renal disease, for which he is on dialysis, arteriosclerotic heart disease, diabetes. Childhood: Denies rheumatic fever or scarlet fever. ALLERGIES: NONE. NONE. MEDICATIONS: Currently include: 1. Renagel. 2. Santyl. 3. Zyloprim. 4. MiraLax. 5. Heparin. 6. Lipitor. 7. Plavix. 8. Ranexa. 9. Protonix. 10. Duonex. 11. Requip. 12. Xanax. 13. Colace. 14. [place]. 15. Ambien. 16. Zofran. 17. Tylenol. 18. Dulcolax. SOCIAL HISTORY: The patient does not smoke or drink alcohol. FAMILY HISTORY: Noncontributory. REVIEW OF SYSTEMS: Negative as noted above. PHYSICAL EXAMINATION: GENERAL: Patient is a well-developed, well-nourished male in no acute distress. VITAL SIGNS: Temperature 97.5, pulse 92, respirations 23, blood pressure 111/58. SKIN: Clear. HEENT: Negative. CHEST: Clear to percussion and auscultation. CARDIAC: No murmurs, rubs or gallops. ABDOMEN: Soft, nontender, no rebound, rigidity, normal bowel sounds. RECTAL: Deferred. IMPRESSION: 1. I note the patient abnormality;s of CT scan of his gallbladder. Preliminary HIDA scan shows nonvisualization of the gallbladder, which is consistent with acute cholecystitis. I note his improved white count may be the fact that his cholecystitis could have responded to antibiotic by now. Nonetheless, we will need to follow his liver tests to see whether they return to normal, and he will need a surgical consultation at one point to consider laparoscopic cholecystectomy. Should his liver test not return to normal, we may need to consider an MRCP preoperatively. 2. Abnormal colon on CT scan. This warrants colonoscopy at one point, however, will need overall stabilization prior to proceeding with that. PLAN: 1. Discussed above with Dr. Johnson. 2. Continue hemodynamic stabilization per Dr. Johnson in ICU. 3. Will decide on colonoscopy timing pending clinical course Thank you very much for allowing me to see the patient. Dictated By: Huey Bennett MD /jay/jose guadalupe /Document#: [id number]
[2017-07-07] MEDS: CLOPIDOGREL 75 MG TAB PO SCH (20:46)
[2017-07-07] MEDS: ATORVASTATIN 40 MG TAB PO SCH (20:46)
[2017-07-07] MEDS: ASPIRIN (EC) 81 MG TAB PO SCH (20:47)
[2017-07-07] MEDS: ZOLPIDEM 5 MG TAB PO PRN (20:55)
[2017-07-08] VITALS (24 sets, daily range): BP systolic 90–130; BP diastolic 47–71; PULSE 77–103; RESP 18–28
--- NOTE | 2017-07-08 00:01 | CONS ---
Date/Time of Note Date/Time of Note DATE: 07/07/17 TIME: 23:57 Assessment/Plan Assessment/Plan Chief Complaint/Hosp Course ASSESSMENT: 1. Sepsis- acute cholecystitis, hida abnl on abx bcx neg to date. ok to hold off on ANTWON 2. Chest pain- low level trop leak, but also could be demand given tachy/sepsis picture. pt previously declined future intervention/invasive procedure. 3. WCT- likely sinus tachy with [place] LBBB, no e/o sig arrhythmia. ICD in place 4. ICM- LVEF 30-35%, s/p BiV ICD, chronic NYHA III on home o2 5. Acute on Chronic diastolic+systolic heart failure - fluid mgmt with iHD. recurrent L pleural effusion, may need repeat thoracentesis 6 Chronic renal failure on dialysis failed to prior transplants per history. 7. Hyperlipidemia. 8. CAD- s/p many previous PCI. known [employer] ostial LCx with L/R-L collaterals. [employer] branch of D1 with l-l collaterals . patent lad/Diag stents. distal RCA disease s/p PCI 11/2016 Impression: - con asa 81mg daily - cont plavix 75 mg daily - hold bp meds as bp 90s-100s - cont statin - cont dialysis per renal - pt intolerant of bb/nitrate previously - gi managing colon findings, cholecystitis Problems: Consultation Date/Type/Reason Admit Date/Time Jul 05, 2017 at 08:11 Initial Consult Date 07/05/17 Type of Consultation: cardiology Referring Provider: MYRTLE BLAKE MD 24 HR Interval Summary Free Text/Dictation no acute events. pt denies cp, bp/hr stable. still with baseline sob on o2 tele review: av paced Detailed Summary Eyes: no complaints ENT: no complaints Respiratory: shortness of breath Cardiovascular: no complaints Gastrointestinal: no complaints Exam/Review of Systems Vital Signs Vitals Vital Signs Date Time Temp Pulse Resp B/P Pulse Ox O2 Delivery O2 Flow Rate FiO2 07/07/17 22:58 9.0 07/07/17 22:00 94 22 110/57 100 Mask 07/07/17 20:00 98.0 Intake and Output 07/06/17 07/06/17 07/07/17 15:00 23:00 07:00 Intake Total 530 ml 420 ml 50 ml Output Total 0 ml 0 ml 0 ml Balance 530 ml 420 ml 50 ml Exam Constitutional: alert, oriented Psych: normal mood Head: normocephalic Eyes: nl conjunctiva ENMT: nl external ears & nose Neck: jvd, supple Respiratory: decreased bs L side posterior Cardiovascular: regular rate and rhythm, ii/vi broderick rusb. No edema Gastrointestinal: soft, no ttp Ext: L fistula + thrill Results Result Diagram: 07/07/17 0456 07/07/17 0456 Results 24 hrs Laboratory Tests Test 07/07/17 04:56 White Blood Count 7.5 # Red Blood Count 2.90 L Hemoglobin 8.4 L Hematocrit 29.3 L Mean Corpuscular Volume 101.0 Mean Corpuscular Hemoglobin 29.0 Mean Corpuscular Hemoglobin Concent 28.7 L Red Cell Distribution Width 18.6 H Platelet Count 152 # Mean Platelet Volume 10.1 Neutrophils % 84.0 H Lymphocytes % 8.8 L Monocytes % 5.0 Eosinophils % 1.5 Basophils % 0.3 Nucleated Red Blood Cells % 0.0 Neutrophils # 6.3 Lymphocytes # 0.7 L Monocytes # 0.4 Eosinophils # 0.1 Basophils # 0.0 Nucleated Red Blood Cells # 0.0 Sodium Level 135 Potassium Level 4.2 Chloride Level 94 L Carbon Dioxide Level 28 Anion Gap 17 H Blood Urea Nitrogen 44 #H Creatinine 5.28 H Glucose Level 86 Calcium Level 9.0 Total Bilirubin 2.5 H Direct Bilirubin 2.20 H Indirect Bilirubin 0.3 Aspartate Amino Transf (AST/SGOT) 145 #H Alanine Aminotransferase (ALT/SGPT) 68 Alkaline Phosphatase 468 H Total Protein 5.8 L Albumin 2.9 L Globulin 2.90 Albumin/Globulin Ratio 1.00 Imaging Free Text/Dictation hida report reviewed Medications Medications Current Medications Allopurinol (Zyloprim) 100 mg DAILY PO Last administered on 07/07/17 16:40; Admin Dose 100 MG; Start 07/06/17 at 09:00 Alprazolam (Xanax) 0.25 mg QHS PRN PO ANXIETY; Start 07/05/17 at 09:30 Aspirin (Halfprin) 81 mg QHS PO Last administered on 07/07/17 20:47; Admin Dose 81 MG; Start 07/05/17 at 21:00 Atorvastatin Calcium (Lipitor) 40 mg QHS PO Last administered on 07/07/17 20: 46; Admin Dose 40 MG; Start 07/05/17 at 21:00 Clopidogrel Bisulfate (plaVIX) 75 mg QHS PO Last administered on 07/07/17 20: 46; Admin Dose 75 MG; Start 07/05/17 at 21:00 Docusate Sodium (Colace) 100 mg TID PRN PO CONSTIPATION Last administered on 21:40; Admin Dose 100 MG; Start 07/05/17 at 09:30 Acetaminophen/ Hydrocodone Bitart ([place] (7.5-325)) 1 tab DAILY PRN PO SEVERE PAIN LEVEL 7-10; Start 07/05/17 at 09:30 Multivit/Ca Carb/ B Cmplx/FA/Prenat (Gi-Evelio) 1 tab DAILY PO Last administered on 07/07/17 15:27; Admin Dose 1 TAB; Start 07/06/17 at 09:00 Pantoprazole (Protonix Tab) 40 mg Q12@06,18 PO Last administered on 07/07/17 17:58; Admin Dose 40 MG; Start 07/05/17 at 18:00 Ranolazine (Ranexa) 500 mg Q12 PO Last administered on 07/07/17 20:46; Admin Dose 500 MG; Start 07/05/17 at 21:00 Ropinirole HCl (Requip) 0.5 mg TID PO Last administered on 07/07/17 20:47; Admin Dose 0.5 MG; Start 07/05/17 at 13:00 Zolpidem Tartrate (Ambien) 7.5 mg QHS PRN PO INSOMNIA Last administered on 07/07 20:55; Admin Dose 7.5 MG; Start 07/05/17 at 09:30 Ondansetron HCl (Zofran Inj) 4 mg Q6H PRN IV NAUSEA AND/OR VOMITING; Start at 09:30 Nitroglycerin (Nitroglycerin (Sl Tab) 0.4 Mg) 1 tab Q5M PRN SL CHEST PAIN; Start 07/05/17 at 09:30 Acetaminophen (Tylenol Tab) 650 mg Q6H PRN PO PAIN LEVEL 1-3 OR FEVER; Start at 09:30 Docusate Sodium (Colace) 100 mg Q12H PRN PO CONSTIPATION; Start 07/05/17 at 09: 30 Bisacodyl 5 mg 5 mg DAILY PRN PO CONSTIPATION; Start 07/05/17 at 09:30 Piperacillin Sod/ Tazobactam Sod 50 ml @ 100 mls/hr Q8 IVPB Last administered on 07/07/17 22:09; Admin Dose 100 MLS/HR; Start 07/05/17 at 14:00 Norepinephrine/ Dextrose (Levophed/D5W) 500 ml @ 1.87 mls/hr TITRATE IV ; Start 07/05/17 at 14:30 Polyethylene Glycol (Miralax) 17 gm DAILY PO Last administered on 07/06/17 09: 39; Admin Dose 17 GM; Start 07/06/17 at 09:00 Collagenase (Santyl) 1 applic DAILY TOP Last administered on 07/07/17 15:25; Admin Dose 1 APPLIC; Start 07/06/17 at 17:00 SUSANA VASQUEZ Jul 08, 2017 00:01
--- NOTE | 2017-07-08 00:11 | RADRPT ---
Vent Rate: 107 bpm RR Interval: 0 msec MS Interval: 118 msec QRS Duration: 142 msec QT Interval: 398 msec QTC Interval: 531 msec P-R-T [place]: 61 - -83 - 68 degrees Sinus tachycardia Possible Left atrial enlargement Left axis deviation Nonspecific intraventricular block Inferior infarct , age undetermined Anterolateral infarct , age undetermined Abnormal ECG Electronically Signed By: Christopher Perez [id number]
[2017-07-08] MEDS: ALBUTEROL/IPRATROPIUM (NEB) 3 ML AMP HHN SCH ×4 (01:40→20:10)
[2017-07-08 05:43] LABS: BASOPHILS % 0.4 % (0.0-2.0); EOSINOPHILS # 0.1 10^3/ul (0.0-0.5); EOSINOPHILS % 1.8 % (0.0-7.0); HEMATOCRIT 30.9 % (42.0-52.0); HEMOGLOBIN 9.1 g/dl (14.0-18.0); LYMPHOCYTES # 0.6 10^3/ul (0.8-2.9); LYMPHOCYTES % 11.5 % (15.0-51.0); MEAN CORPUSCULAR HEMOGLOBIN 29.3 pg (29.0-33.0); MEAN CORPUSCULAR HGB CONC 29.4 g/dl (32.0-37.0); MEAN CORPUSCULAR VOLUME 99.4 fl (82.0-101.0); MEAN PLATELET VOLUME 10.7 fl (7.4-10.4); MONOCYTE # 0.3 10^3/ul (0.3-0.9); MONOCYTES % 5.4 % (0.0-11.0); NEUTROPHIL # 4.4 10^3/ul (1.6-7.5); NEUTROPHILS % 80.5 % (39.0-77.0); PLATELET COUNT 148 10^3/UL (140-415); RED BLOOD COUNT 3.11 10^6/ul (4.70-6.10); RED CELL DISTRIBUTION WIDTH 18.6 % (11.5-14.5); WHITE BLOOD COUNT 5.4 10^3/ul (4.8-10.8)
[2017-07-08] MEDS: PIPER-TAZO 2.25 GM (PMX) 50 ML IVPB SCH ×3 (05:52→21:39)
[2017-07-08] MEDS: PANTOPRAZOLE (EC) 40 MG TAB PO SCH ×2 (05:53→18:00)
[2017-07-08 06:33] LABS: ALBUMIN 2.9 g/dl (3.3-4.9); BILIRUBIN,DIRECT 3.1 mg/dl (0.00-0.20); BILIRUBIN,INDIRECT 0.5 mg/dl (0-1.1); BILIRUBIN,TOTAL 3.6 mg/dl (0.2-1.3); CALCIUM 9.3 mg/dl (8.4-10.2); CREATININE 4.04 mg/dl (0.61-1.24); POTASSIUM 4.2 mmol/L (3.5-5.1); TOTAL PROTEIN 5.8 g/dl (6.1-8.1)
--- NOTE | 2017-07-08 06:33 | CONS ---
Date/Time of Note Date/Time of Note DATE: 07/08/17 TIME: 06:30 Assessment/Plan Assessment/Plan Additional Assessment/Plan 1. CKD to be dialyzed today. 2. Cholecystitis, GI eval apprec, liver tests improving, will cont to observe. 3. Colon abnl noted on CT, will need colonoscopy 4. Pleural effusion, thoracentesis is being considered. 5. Hx DM, sugar control is adequate 6. Known CAD, now w/o sxs ischemia. Consultation Date/Type/Reason Admit Date/Time Jul 05, 2017 at 08:11 Initial Consult Date 07/05/17 Type of Consultation: cardiology Referring Provider: MYRTLE BLAKE MD Detailed Summary Respiratory: cough (is dry and not productive), shortness of breath (is mild) Cardiovascular: No chest pain Gastrointestinal: No nausea, No pain, No vomiting Genitourinary: no complaints Exam/Review of Systems Vital Signs Vitals Vital Signs Date Time Temp Pulse Resp B/P Pulse Ox O2 Delivery O2 Flow Rate FiO2 07/08/17 06:00 98.2 79 24 120/62 100 Mask 8.0 Intake and Output 07/07/17 07/07/17 07/08/17 15:00 23:00 07:00 Intake Total 500 ml 530 ml 350 ml Output Total 3500 ml 0 ml 0 ml Balance -3000 ml 530 ml 350 ml Exam Neck: jvd Respiratory: diminished breath sounds, other (few rhonchi right lung ant) Cardiovascular: regular rate and rhythm, No S3, No S4, No rub Gastrointestinal: soft, No mass, No tender Extremities: No edema Results Result Diagram: 07/08/17 0511 07/07/17 0456 Results 24 hrs Laboratory Tests Test 07/08/17 05:11 White Blood Count 5.4 # Red Blood Count 3.11 L Hemoglobin 9.1 L Hematocrit 30.9 L Mean Corpuscular Volume 99.4 Mean Corpuscular Hemoglobin 29.3 Mean Corpuscular Hemoglobin Concent 29.4 L Red Cell Distribution Width 18.6 H Platelet Count 148 Mean Platelet Volume 10.7 H Neutrophils % 80.5 H Lymphocytes % 11.5 L Monocytes % 5.4 Eosinophils % 1.8 Basophils % 0.4 Nucleated Red Blood Cells % 0.0 Neutrophils # 4.4 Lymphocytes # 0.6 L Monocytes # 0.3 Eosinophils # 0.1 Basophils # 0.0 Nucleated Red Blood Cells # 0.0 Medications Medications Current Medications Allopurinol (Zyloprim) 100 mg DAILY PO Last administered on 07/07/17 16:40; Admin Dose 100 MG; Start 07/06/17 at 09:00 Alprazolam (Xanax) 0.25 mg QHS PRN PO ANXIETY; Start 07/05/17 at 09:30 Aspirin (Halfprin) 81 mg QHS PO Last administered on 07/07/17 20:47; Admin Dose 81 MG; Start 07/05/17 at 21:00 Atorvastatin Calcium (Lipitor) 40 mg QHS PO Last administered on 07/07/17 20: 46; Admin Dose 40 MG; Start 07/05/17 at 21:00 Clopidogrel Bisulfate (plaVIX) 75 mg QHS PO Last administered on 07/07/17 20: 46; Admin Dose 75 MG; Start 07/05/17 at 21:00 Docusate Sodium (Colace) 100 mg TID PRN PO CONSTIPATION Last administered on 21:40; Admin Dose 100 MG; Start 07/05/17 at 09:30 Acetaminophen/ Hydrocodone Bitart ([place] (7.5-325)) 1 tab DAILY PRN PO SEVERE PAIN LEVEL 7-10; Start 07/05/17 at 09:30 Multivit/Ca Carb/ B Cmplx/FA/Prenat (Gi-Evelio) 1 tab DAILY PO Last administered on 07/07/17 15:27; Admin Dose 1 TAB; Start 07/06/17 at 09:00 Pantoprazole (Protonix Tab) 40 mg Q12@,18 PO Last administered on 07/07/17 17:58; Admin Dose 40 MG; Start 07/05/17 at 18:00 Ranolazine (Ranexa) 500 mg Q12 PO Last administered on 07/07/17 20:46; Admin Dose 500 MG; Start 07/05/17 at 21:00 Ropinirole HCl (Requip) 0.5 mg TID PO Last administered on 07/07/17 20:47; Admin Dose 0.5 MG; Start 07/05/17 at 13:00 Zolpidem Tartrate (Ambien) 7.5 mg QHS PRN PO INSOMNIA Last administered on 07/07 20:55; Admin Dose 7.5 MG; Start 07/05/17 at 09:30 Ondansetron HCl (Zofran Inj) 4 mg Q6H PRN IV NAUSEA AND/OR VOMITING; Start at 09:30 Nitroglycerin (Nitroglycerin (Sl Tab) 0.4 Mg) 1 tab Q5M PRN SL CHEST PAIN; Start 07/05/17 at 09:30 Acetaminophen (Tylenol Tab) 650 mg Q6H PRN PO PAIN LEVEL 1-3 OR FEVER; Start at 09:30 Docusate Sodium (Colace) 100 mg Q12H PRN PO CONSTIPATION; Start 07/05/17 at 09: 30 Bisacodyl 5 mg 5 mg DAILY PRN PO CONSTIPATION; Start 07/05/17 at 09:30 Piperacillin Sod/ Tazobactam Sod 50 ml @ 100 mls/hr Q8 IVPB Last administered on 07/08/17 05:52; Admin Dose 100 MLS/HR; Start 07/05/17 at 14:00 Norepinephrine/ Dextrose (Levophed/D5W) 500 ml @ 1.87 mls/hr TITRATE IV ; Start 07/05/17 at 14:30 Polyethylene Glycol (Miralax) 17 gm DAILY PO Last administered on 07/06/17 09: 39; Admin Dose 17 GM; Start 07/06/17 at 09:00 Collagenase (Santyl) 1 applic DAILY TOP Last administered on 07/07/17 15:25; Admin Dose 1 APPLIC; Start 07/06/17 at 17:00 ALONZO SERRA MD Jul 08, 2017 06:33
--- NOTE | 2017-07-08 07:54 | CONS ---
Date/Time of Note Date/Time of Note DATE: 07/08/17 TIME: 07:51 Assessment/Plan Assessment/Plan Chief Complaint/Hosp Course ASSESSMENT: 1. Sepsis- acute cholecystitis, hida abnl on abx bcx neg to date. low likelihood of endocarditis 2. Chest pain- low level trop leak, but also could be demand given tachy/sepsis picture. pt previously declined future intervention/invasive procedure. 3. WCT- likely sinus tachy with [place] LBBB, no e/o sig arrhythmia. ICD in place 4. ICM- LVEF 30-35%, s/p BiV ICD, chronic NYHA III on home o2 5. Acute on Chronic diastolic+systolic heart failure - fluid mgmt with iHD. recurrent L pleural effusion, may need repeat thoracentesis 6 Chronic renal failure on dialysis failed to prior transplants per history. 7. Hyperlipidemia. 8. CAD- s/p many previous PCI. known [employer] ostial LCx with L/R-L collaterals. [employer] branch of D1 with l-l collaterals . patent lad/Diag stents. distal RCA disease s/p PCI 11/2016 Impression: - con asa 81mg daily - cont plavix 75 mg daily - hold bp meds as bp 90s-100s - cont statin - cont dialysis per renal - pt intolerant of bb/nitrate previously - gi managing colon findings, cholecystitis ] Problems: Consultation Date/Type/Reason Admit Date/Time Jul 05, 2017 at 08:11 Initial Consult Date 07/05/17 Type of Consultation: cardiology Referring Provider: MYRTLE BLAKE MD 24 HR Interval Summary Free Text/Dictation pt states had episode of sob overnight, did not have his cpap. no chest pain/ pressure. per nursing o2 sat did not drop. also has mild cough. no fevers, chills, sweats. tele reviewed: biv paced rhythm Detailed Summary Eyes: no complaints ENT: no complaints Respiratory: shortness of breath Cardiovascular: paroxysmal nocturnal dyspnea Gastrointestinal: pain Exam/Review of Systems Vital Signs Vitals Vital Signs Date Time Temp Pulse Resp B/P Pulse Ox O2 Delivery O2 Flow Rate FiO2 07/08/17 07:25 Simple Mask 10.0 07/08/17 06:00 98.2 79 24 120/62 100 Intake and Output 07/07/17 07/07/17 07/08/17 15:00 23:00 07:00 Intake Total 500 ml 530 ml 350 ml Output Total 3500 ml 0 ml 0 ml Balance -3000 ml 530 ml 350 ml Exam Constitutional: alert, oriented Psych: normal mood Head: normocephalic Eyes: nl conjunctiva ENMT: nl external ears & nose Neck: jvd, supple Respiratory: decreased bs L side posterior Cardiovascular: regular rate and rhythm, ii/vi broderick rusb. No edema Gastrointestinal: soft, mild ttp with deep palpation Ext: L fistula + thrill Results Result Diagram: 07/08/1711 07/08/17 0511 Results 24 hrs Laboratory Tests Test 07/08/17 05:11 White Blood Count 5.4 # Red Blood Count 3.11 L Hemoglobin 9.1 L Hematocrit 30.9 L Mean Corpuscular Volume 99.4 Mean Corpuscular Hemoglobin 29.3 Mean Corpuscular Hemoglobin Concent 29.4 L Red Cell Distribution Width 18.6 H Platelet Count 148 Mean Platelet Volume 10.7 H Neutrophils % 80.5 H Lymphocytes % 11.5 L Monocytes % 5.4 Eosinophils % 1.8 Basophils % 0.4 Nucleated Red Blood Cells % 0.0 Neutrophils # 4.4 Lymphocytes # 0.6 L Monocytes # 0.3 Eosinophils # 0.1 Basophils # 0.0 Nucleated Red Blood Cells # 0.0 Sodium Level 137 Potassium Level 4.2 Chloride Level 96 L Carbon Dioxide Level 31 Anion Gap 14 Blood Urea Nitrogen 30 #H Creatinine 4.04 #H Glucose Level 81 Calcium Level 9.3 Total Bilirubin 3.6 H Direct Bilirubin 3.10 H Indirect Bilirubin 0.5 Aspartate Amino Transf (AST/SGOT) 94 H Alanine Aminotransferase (ALT/SGPT) 48 Alkaline Phosphatase 531 H Total Protein 5.8 L Albumin 2.9 L Globulin 2.90 Albumin/Globulin Ratio 1.00 Medications Medications Current Medications Allopurinol (Zyloprim) 100 mg DAILY PO Last administered on 07/07/17 16:40; Admin Dose 100 MG; Start 07/06/17 at 09:00 Alprazolam (Xanax) 0.25 mg QHS PRN PO ANXIETY; Start 07/05/17 at 09:30 Aspirin (Halfprin) 81 mg QHS PO Last administered on 07/07/17 20:47; Admin Dose 81 MG; Start 07/05/17 at 21:00 Atorvastatin Calcium (Lipitor) 40 mg QHS PO Last administered on 07/07/17 20: 46; Admin Dose 40 MG; Start 07/05/17 at 21:00 Clopidogrel Bisulfate (plaVIX) 75 mg QHS PO Last administered on 07/07/17 20: 46; Admin Dose 75 MG; Start 07/05/17 at 21:00 Docusate Sodium (Colace) 100 mg TID PRN PO CONSTIPATION Last administered on 21:40; Admin Dose 100 MG; Start 07/05/17 at 09:30 Acetaminophen/ Hydrocodone Bitart ([place] (7.5-325)) 1 tab DAILY PRN PO SEVERE PAIN LEVEL 7-10; Start 07/05/17 at 09:30 Multivit/Ca Carb/ B Cmplx/FA/Prenat (Gi-Evelio) 1 tab DAILY PO Last administered on 07/07/17 15:27; Admin Dose 1 TAB; Start 07/06/17 at 09:00 Pantoprazole (Protonix Tab) 40 mg Q12@,18 PO Last administered on 07/07/17 17:58; Admin Dose 40 MG; Start 07/05/17 at 18:00 Ranolazine (Ranexa) 500 mg Q12 PO Last administered on 07/07/17 20:46; Admin Dose 500 MG; Start 07/05/17 at 21:00 Ropinirole HCl (Requip) 0.5 mg TID PO Last administered on 07/07/17 20:47; Admin Dose 0.5 MG; Start 07/05/17 at 13:00 Zolpidem Tartrate (Ambien) 7.5 mg QHS PRN PO INSOMNIA Last administered on 07/07 20:55; Admin Dose 7.5 MG; Start 07/05/17 at 09:30 Ondansetron HCl (Zofran Inj) 4 mg Q6H PRN IV NAUSEA AND/OR VOMITING; Start at 09:30 Nitroglycerin (Nitroglycerin (Sl Tab) 0.4 Mg) 1 tab Q5M PRN SL CHEST PAIN; Start 07/05/17 at 09:30 Acetaminophen (Tylenol Tab) 650 mg Q6H PRN PO PAIN LEVEL 1-3 OR FEVER; Start at 09:30 Docusate Sodium (Colace) 100 mg Q12H PRN PO CONSTIPATION; Start 07/05/17 at 09: 30 Bisacodyl 5 mg 5 mg DAILY PRN PO CONSTIPATION; Start 07/05/17 at 09:30 Piperacillin Sod/ Tazobactam Sod 50 ml @ 100 mls/hr Q8 IVPB Last administered on 07/08/17 05:52; Admin Dose 100 MLS/HR; Start 07/05/17 at 14:00 Norepinephrine/ Dextrose (Levophed/D5W) 500 ml @ 1.87 mls/hr TITRATE IV ; Start 07/05/17 at 14:30 Polyethylene Glycol (Miralax) 17 gm DAILY PO Last administered on 07/06/17 09: 39; Admin Dose 17 GM; Start 07/06/17 at 09:00 Collagenase (Santyl) 1 applic DAILY TOP Last administered on 07/07/17 15:25; Admin Dose 1 APPLIC; Start 07/06/17 at 17:00 Procedures Procedures cxr report reviewed SUSANA VASQUEZ Jul 08, 2017 07:54
[2017-07-08] MEDS: COLLAGENASE 30 GM TUBE TOP SCH (08:27)
[2017-07-08] MEDS: ALLOPURINOL 100 MG TAB PO SCH (08:27)
[2017-07-08] MEDS: MULTIVIT/CA CARB/B CMPLX/FA TAB PO SCH (08:27)
[2017-07-08] MEDS: POLYETHYLENE GLYCOL 17 GM PACKET PO SCH (08:27)
[2017-07-08] MEDS: RANOLAZINE (SR) 500 MG TAB PO SCH ×2 (08:29→20:07)
[2017-07-08] MEDS: ROPINIROLE 0.25 MG TAB PO SCH ×3 (08:29→20:07)
[2017-07-08] MEDS: SEVELAMER 800 MG TAB PO SCH ×3 (08:29→17:35)
[2017-07-08] MEDS: ONDANSETRON 4 MG INJ IV PRN (08:29)
--- NOTE | 2017-07-08 14:14 | CONS ---
Date/Time of Note Date/Time of Note DATE: 07/08/17 TIME: 14:07 Consult Date/Type/Reason Admit Date/Time Jul 05, 2017 at 08:11 Initial Consult Date 07/05/17 Type of Consultation: GI Ordering Provider: MYRTLE BLAKE MD Subjective Feels better Denies abdominal pain Only complaint is shortness of breath Objective Vital Signs Date Time Temp Pulse Resp B/P Pulse Ox O2 Delivery O2 Flow Rate FiO2 07/08/17 12:00 97 07/08/17 09:00 20 110/56 100 Mask 8.0 07/08/17 08:00 98.4 Chest: clear to P and A Cardiac: no m, r, g Abdomen: soft non tender, +bs Intake and Output 07/07/17 07/07/17 07/08/17 15:00 23:00 07:00 Intake Total 500 ml 530 ml 350 ml Output Total 3500 ml 0 ml 0 ml Balance -3000 ml 530 ml 350 ml Results/Medications Result Diagram: 07/08/17 0511 07/08/17 0511 Results 24 hrs Laboratory Tests Test 07/08/17 05:11 White Blood Count 5.4 # Red Blood Count 3.11 L Hemoglobin 9.1 L Hematocrit 30.9 L Mean Corpuscular Volume 99.4 Mean Corpuscular Hemoglobin 29.3 Mean Corpuscular Hemoglobin Concent 29.4 L Red Cell Distribution Width 18.6 H Platelet Count 148 Mean Platelet Volume 10.7 H Neutrophils % 80.5 H Lymphocytes % 11.5 L Monocytes % 5.4 Eosinophils % 1.8 Basophils % 0.4 Nucleated Red Blood Cells % 0.0 Neutrophils # 4.4 Lymphocytes # 0.6 L Monocytes # 0.3 Eosinophils # 0.1 Basophils # 0.0 Nucleated Red Blood Cells # 0.0 Sodium Level 137 Potassium Level 4.2 Chloride Level 96 L Carbon Dioxide Level 31 Anion Gap 14 Blood Urea Nitrogen 30 #H Creatinine 4.04 #H Glucose Level 81 Calcium Level 9.3 Total Bilirubin 3.6 H Direct Bilirubin 3.10 H Indirect Bilirubin 0.5 Aspartate Amino Transf (AST/SGOT) 94 H Alanine Aminotransferase (ALT/SGPT) 48 Alkaline Phosphatase 531 H Total Protein 5.8 L Albumin 2.9 L Globulin 2.90 Albumin/Globulin Ratio 1.00 Medications Current Medications Allopurinol (Zyloprim) 100 mg DAILY PO Last administered on 07/08/17 08:27; Admin Dose 100 MG; Start 07/06/17 at 09:00 Alprazolam (Xanax) 0.25 mg QHS PRN PO ANXIETY; Start 07/05/17 at 09:30 Aspirin (Halfprin) 81 mg QHS PO Last administered on 07/07/17 20:47; Admin Dose 81 MG; Start 07/05/17 at 21:00 Atorvastatin Calcium (Lipitor) 40 mg QHS PO Last administered on 07/07/17 20: 46; Admin Dose 40 MG; Start 07/05/17 at 21:00 Clopidogrel Bisulfate (plaVIX) 75 mg QHS PO Last administered on 07/07/17 20: 46; Admin Dose 75 MG; Start 07/05/17 at 21:00 Docusate Sodium (Colace) 100 mg TID PRN PO CONSTIPATION Last administered on 21:40; Admin Dose 100 MG; Start 07/05/17 at 09:30 Acetaminophen/ Hydrocodone Bitart ([place] (7.5-325)) 1 tab DAILY PRN PO SEVERE PAIN LEVEL 7-10; Start 07/05/17 at 09:30 Multivit/Ca Carb/ B Cmplx/FA/Prenat (Gi-Evelio) 1 tab DAILY PO Last administered on 07/08/17 08:27; Admin Dose 1 TAB; Start 07/06/17 at 09:00 Pantoprazole (Protonix Tab) 40 mg Q12@06,18 PO Last administered on 07/07/17 17:58; Admin Dose 40 MG; Start 07/05/17 at 18:00 Ranolazine (Ranexa) 500 mg Q12 PO Last administered on 07/08/17 08:29; Admin Dose 500 MG; Start 07/05/17 at 21:00 Ropinirole HCl (Requip) 0.5 mg TID PO Last administered on 07/08/17 08:29; Admin Dose 0.5 MG; Start 07/05/17 at 13:00 Zolpidem Tartrate (Ambien) 7.5 mg QHS PRN PO INSOMNIA Last administered on 07/07 20:55; Admin Dose 7.5 MG; Start 07/05/17 at 09:30 Ondansetron HCl (Zofran Inj) 4 mg Q6H PRN IV NAUSEA AND/OR VOMITING Last administered on 07/08/17 08:29; Admin Dose 4 MG; Start 07/05/17 at 09:30 Nitroglycerin (Nitroglycerin (Sl Tab) 0.4 Mg) 1 tab Q5M PRN SL CHEST PAIN; Start 07/05/17 at 09:30 Acetaminophen (Tylenol Tab) 650 mg Q6H PRN PO PAIN LEVEL 1-3 OR FEVER; Start at 09:30 Docusate Sodium (Colace) 100 mg Q12H PRN PO CONSTIPATION; Start 07/05/17 at 09: 30 Bisacodyl 5 mg 5 mg DAILY PRN PO CONSTIPATION; Start 07/05/17 at 09:30 Piperacillin Sod/ Tazobactam Sod 50 ml @ 100 mls/hr Q8 IVPB Last administered on 07/08/17 05:52; Admin Dose 100 MLS/HR; Start 07/05/17 at 14:00 Norepinephrine/ Dextrose (Levophed/D5W) 500 ml @ 1.87 mls/hr TITRATE IV ; Start 07/05/17 at 14:30 Polyethylene Glycol (Miralax) 17 gm DAILY PO Last administered on 07/08/17 08: 27; Admin Dose 17 GM; Start 07/06/17 at 09:00 Collagenase (Santyl) 1 applic DAILY TOP Last administered on 07/08/17 08:27; Admin Dose 1 APPLIC; Start 07/06/17 at 17:00 Assessment/Plan Chief Complaint/Hosp Course Impression: 1. Cholecystitis - based on non visualized GB on HIDA 2. Abnormality of TC on CT 3. Cholestatic LFTs - related to GB, vs ? CBD issue Plan: 1. Continue antibiotic and fluid management per Dr. [place] 2. Follow lfts 3. Colonoscopy once clinical situation allows 4. Likely elective cholecystectomy after colonoscopy 5. Consider MRCP, but nurse tells me he has pacer which may preclude exam - await cardiology input regarding this Problems: SOBIA SALINAS MD Jul 08, 2017 14:14
[2017-07-08] MEDS: ASPIRIN (EC) 81 MG TAB PO SCH (20:04)
[2017-07-08] MEDS: ZOLPIDEM 5 MG TAB PO PRN (20:05)
[2017-07-08] MEDS: ATORVASTATIN 40 MG TAB PO SCH (20:06)
[2017-07-08] MEDS: CLOPIDOGREL 75 MG TAB PO SCH (20:06)
[2017-07-08] MEDS: DOCUSATE SODIUM 100 MG CAP PO PRN (20:22)
[2017-07-08] MEDS: BISACODYL (EC) 5 MG TAB PO PRN (20:22)
[2017-07-09] VITALS (28 sets, daily range): BP systolic 91–151; BP diastolic 46–93; PULSE 89–101; RESP 16–30
[2017-07-09] MEDS: ALBUTEROL/IPRATROPIUM (NEB) 3 ML AMP HHN SCH ×4 (01:54→20:41)
[2017-07-09] MEDS: NITROGLYCERIN (SL) 0.4 MG TAB SL PRN ×2 (02:15→02:21)
[2017-07-09] MEDS: PANTOPRAZOLE (EC) 40 MG TAB PO SCH ×2 (05:26→17:29)
[2017-07-09] MEDS: PIPER-TAZO 2.25 GM (PMX) 50 ML IVPB SCH ×3 (05:26→21:31)
[2017-07-09 06:15] LABS: BASOPHILS % 0.3 % (0.0-2.0); EOSINOPHILS # 0.1 10^3/ul (0.0-0.5); EOSINOPHILS % 0.9 % (0.0-7.0); HEMATOCRIT 30.7 % (42.0-52.0); HEMOGLOBIN 9.3 g/dl (14.0-18.0); LYMPHOCYTES # 0.8 10^3/ul (0.8-2.9); LYMPHOCYTES % 11.7 % (15.0-51.0); MEAN CORPUSCULAR HEMOGLOBIN 29.4 pg (29.0-33.0); MEAN CORPUSCULAR HGB CONC 30.3 g/dl (32.0-37.0); MEAN CORPUSCULAR VOLUME 97.2 fl (82.0-101.0); MEAN PLATELET VOLUME 10.9 fl (7.4-10.4); MONOCYTE # 0.6 10^3/ul (0.3-0.9); NEUTROPHIL # 5.4 10^3/ul (1.6-7.5); NEUTROPHILS % 78.4 % (39.0-77.0); PLATELET COUNT 147 10^3/UL (140-415); RED BLOOD COUNT 3.16 10^6/ul (4.70-6.10); RED CELL DISTRIBUTION WIDTH 18.2 % (11.5-14.5); WHITE BLOOD COUNT 6.8 10^3/ul (4.8-10.8)
[2017-07-09 06:49] LABS: ALBUMIN/GLOBULIN RATIO 0.96; BILIRUBIN,INDIRECT 0.6 mg/dl (0-1.1); BILIRUBIN,TOTAL 5.6 mg/dl (0.2-1.3); CALCIUM 9.4 mg/dl (8.4-10.2); CREATININE 5.17 mg/dl (0.61-1.24); POTASSIUM 5.2 mmol/L (3.5-5.1); TOTAL PROTEIN 6.1 g/dl (6.1-8.1)
[2017-07-09] MEDS: ALBUMIN HUMAN 25% 100 ML IV PRN ×2 (06:51→07:56)
[2017-07-09] MEDS: SEVELAMER 800 MG TAB PO SCH ×3 (07:35→17:29)
[2017-07-09] MEDS: POLYETHYLENE GLYCOL 17 GM PACKET PO SCH (09:00)
[2017-07-09] MEDS: DOCUSATE SODIUM 100 MG CAP PO PRN ×2 (09:33→21:32)
[2017-07-09] MEDS: RANOLAZINE (SR) 500 MG TAB PO SCH ×2 (09:33→21:05)
[2017-07-09] MEDS: MULTIVIT/CA CARB/B CMPLX/FA TAB PO SCH (09:33)
[2017-07-09] MEDS: BISACODYL (EC) 5 MG TAB PO PRN ×2 (09:33→21:32)
[2017-07-09] MEDS: ALLOPURINOL 100 MG TAB PO SCH (09:33)
[2017-07-09] MEDS: COLLAGENASE 30 GM TUBE TOP SCH (09:34)
[2017-07-09] MEDS: ROPINIROLE 0.25 MG TAB PO SCH ×3 (09:34→21:31)
--- NOTE | 2017-07-09 11:35 | PN ---
Date/Time of Note Date/Time of Note DATE: 07/09/17 TIME: 11:31 Assessment/Plan VTE Prophylaxis VTE Prophylaxis Intervention: other Lines/Catheters [facility] [place] [facility] Urinary Cath still in place: No Assessment/Plan Chief Complaint/Hosp Course 1. End-stage renal disease on maintenance hemodialysis. He was dialyzed today. He will be transferred today to a telemetry bed. The patient is also interested in speaking to and being evaluated for hospice. plastics worker has been called for these discussions. 2. Coronary artery disease with ischemic cardiomyopathy 3. Sepsis due to acute cholecystitis with elevated liver enzymes. 4. Failed kidney transplant 5. Hyperlipidemia Problems: Subjective 24 Hr Interval Summary Free Text/Dictation He had hemodialysis treatment this morning and 3-1/2 L of fluid was removed. He still has some slight shortness of breath. He had some chest pain earlier today. Constitutional: improved Respiratory: shortness of breath Cardiovascular: chest pain Gastrointestinal: no complaints Exam/Review of Systems Vital Signs Vitals Vital Signs Date Time Temp Pulse Resp B/P Pulse Ox O2 Delivery O2 Flow Rate FiO2 07/09/17 11:00 95 22 122/57 95 Mask 10.0 Nasal Cannula 07/09/17 05:54 97.6 Intake and Output 07/08/17 07/08/17 07/09/17 15:00 23:00 07:00 Intake Total 270 ml 470 ml 500 ml Output Total 0 ml 0 ml 4000 ml Balance 270 ml 470 ml -3500 ml Exam Constitutional: alert, frail, oriented Respiratory: clear to auscultation, normal air movement Cardiovascular: regular rate and rhythm Gastrointestinal: non-tender, soft Musculoskeletal: nl extremities to inspection Results Result Diagram: 07/09/17 0535 07/09/17 0535 Results 24 hrs Laboratory Tests Test 07/09/17 05:35 White Blood Count 6.8 # Red Blood Count 3.16 L Hemoglobin 9.3 L Hematocrit 30.7 L Mean Corpuscular Volume 97.2 Mean Corpuscular Hemoglobin 29.4 Mean Corpuscular Hemoglobin Concent 30.3 L Red Cell Distribution Width 18.2 H Platelet Count 147 Mean Platelet Volume 10.9 H Neutrophils % 78.4 H Lymphocytes % 11.7 L Monocytes % 8.0 Eosinophils % 0.9 Basophils % 0.3 Nucleated Red Blood Cells % 0.0 Neutrophils # 5.4 Lymphocytes # 0.8 Monocytes # 0.6 Eosinophils # 0.1 Basophils # 0.0 Nucleated Red Blood Cells # 0.0 Sodium Level 134 L Potassium Level 5.2 H Chloride Level 95 L Carbon Dioxide Level 28 Anion Gap 16 Blood Urea Nitrogen 41 #H Creatinine 5.17 H Glucose Level 71 Calcium Level 9.4 Phosphorus Level 4.1 Total Bilirubin 5.6 #H Direct Bilirubin 5.00 H Indirect Bilirubin 0.6 Aspartate Amino Transf (AST/SGOT) 113 H Alanine Aminotransferase (ALT/SGPT) 41 Alkaline Phosphatase 657 H Troponin I 0.439 *H Total Protein 6.1 Albumin 3.0 L Globulin 3.10 Albumin/Globulin Ratio 0.96 Medications Medications Current Medications Allopurinol (Zyloprim) 100 mg DAILY PO Last administered on 07/09/17 09:33; Admin Dose 100 MG; Start 07/06/17 at 09:00 Alprazolam (Xanax) 0.25 mg QHS PRN PO ANXIETY; Start 07/05/17 at 09:30 Aspirin (Halfprin) 81 mg QHS PO Last administered on 07/08/17 20:04; Admin Dose 81 MG; Start 07/05/17 at 21:00 Atorvastatin Calcium (Lipitor) 40 mg QHS PO Last administered on 07/08/17 20: 06; Admin Dose 40 MG; Start 07/05/17 at 21:00 Clopidogrel Bisulfate (plaVIX) 75 mg QHS PO Last administered on 07/08/17 20: 06; Admin Dose 75 MG; Start 07/05/17 at 21:00 Docusate Sodium (Colace) 100 mg TID PRN PO CONSTIPATION Last administered on 09:33; Admin Dose 100 MG; Start 07/05/17 at 09:30 Acetaminophen/ Hydrocodone Bitart ([place] (7.5-325)) 1 tab DAILY PRN PO SEVERE PAIN LEVEL 7-10; Start 07/05/17 at 09:30 Multivit/Ca Carb/ B Cmplx/FA/Prenat (Gi-Evelio) 1 tab DAILY PO Last administered on 07/09/17 09:33; Admin Dose 1 TAB; Start 07/06/17 at 09:00 Pantoprazole (Protonix Tab) 40 mg Q12@06,18 PO Last administered on 07/09/17 05:26; Admin Dose 40 MG; Start 07/05/17 at 18:00 Ranolazine (Ranexa) 500 mg Q12 PO Last administered on 07/09/17 09:33; Admin Dose 500 MG; Start 07/05/17 at 21:00 Ropinirole HCl (Requip) 0.5 mg TID PO Last administered on 07/09/17 09:34; Admin Dose 0.5 MG; Start 07/05/17 at 13:00 Zolpidem Tartrate (Ambien) 7.5 mg QHS PRN PO INSOMNIA Last administered on 07/08 20:05; Admin Dose 7.5 MG; Start 07/05/17 at 09:30 Ondansetron HCl (Zofran Inj) 4 mg Q6H PRN IV NAUSEA AND/OR VOMITING Last administered on 07/08/17 08:29; Admin Dose 4 MG; Start 07/05/17 at 09:30 Nitroglycerin (Nitroglycerin (Sl Tab) 0.4 Mg) 1 tab Q5M PRN SL CHEST PAIN Last administered on 07/09/17 02:21; Admin Dose 1 TAB; Start 07/05/17 at 09:30 Acetaminophen (Tylenol Tab) 650 mg Q6H PRN PO PAIN LEVEL 1-3 OR FEVER; Start at 09:30 Docusate Sodium (Colace) 100 mg Q12H PRN PO CONSTIPATION; Start 07/05/17 at 09: 30 Bisacodyl 5 mg 5 mg DAILY PRN PO CONSTIPATION Last administered on 07/09/17 09 :33; Admin Dose 5 MG; Start 07/05/17 at 09:30 Piperacillin Sod/ Tazobactam Sod 50 ml @ 100 mls/hr Q8 IVPB Last administered on 07/09/17 05:26; Admin Dose 100 MLS/HR; Start 07/05/17 at 14:00 Norepinephrine/ Dextrose (Levophed/D5W) 500 ml @ 1.87 mls/hr TITRATE IV ; Start 07/05/17 at 14:30 Polyethylene Glycol (Miralax) 17 gm DAILY PO Last administered on 07/08/17 08: 27; Admin Dose 17 GM; Start 07/06/17 at 09:00 Collagenase (Santyl) 1 applic DAILY TOP Last administered on 07/09/17 09:34; Admin Dose 1 APPLIC; Start 07/06/17 at 17:00 RIMMA WEI MD Jul 09, 2017 11:35
--- NOTE | 2017-07-09 13:37 | CONS ---
Date/Time of Note Date/Time of Note DATE: 07/09/17 TIME: 13:33 Consult Date/Type/Reason Admit Date/Time Jul 05, 2017 at 08:11 Initial Consult Date 07/05/17 Type of Consultation: GI Ordering Provider: MYRTLE BLAKE MD Subjective Denies pain Would like to consider avoidance of further intervention and beginning hospice care Would even like to consider holding dialysis Objective Vital Signs Date Time Temp Pulse Resp B/P Pulse Ox O2 Delivery O2 Flow Rate FiO2 07/09/17 12:37 98.3 99 18 145/70 96 Nasal Cannula 07/09/17 11:00 10.0 Chest: Clear Cardiac: no m,r,g Abdomen: soft, mild RUQ tenderness Intake and Output 07/08/17 07/08/17 07/09/17 15:00 23:00 07:00 Intake Total 270 ml 470 ml 500 ml Output Total 0 ml 0 ml 4000 ml Balance 270 ml 470 ml -3500 ml Results/Medications Result Diagram: 07/09/17 0535 07/09/17 0535 Results 24 hrs Laboratory Tests Test 07/09/17 05:35 White Blood Count 6.8 # Red Blood Count 3.16 L Hemoglobin 9.3 L Hematocrit 30.7 L Mean Corpuscular Volume 97.2 Mean Corpuscular Hemoglobin 29.4 Mean Corpuscular Hemoglobin Concent 30.3 L Red Cell Distribution Width 18.2 H Platelet Count 147 Mean Platelet Volume 10.9 H Neutrophils % 78.4 H Lymphocytes % 11.7 L Monocytes % 8.0 Eosinophils % 0.9 Basophils % 0.3 Nucleated Red Blood Cells % 0.0 Neutrophils # 5.4 Lymphocytes # 0.8 Monocytes # 0.6 Eosinophils # 0.1 Basophils # 0.0 Nucleated Red Blood Cells # 0.0 Sodium Level 134 L Potassium Level 5.2 H Chloride Level 95 L Carbon Dioxide Level 28 Anion Gap 16 Blood Urea Nitrogen 41 #H Creatinine 5.17 H Glucose Level 71 Calcium Level 9.4 Phosphorus Level 4.1 Total Bilirubin 5.6 #H Direct Bilirubin 5.00 H Indirect Bilirubin 0.6 Aspartate Amino Transf (AST/SGOT) 113 H Alanine Aminotransferase (ALT/SGPT) 41 Alkaline Phosphatase 657 H Troponin I 0.439 *H Total Protein 6.1 Albumin 3.0 L Globulin 3.10 Albumin/Globulin Ratio 0.96 Medications Current Medications Allopurinol (Zyloprim) 100 mg DAILY PO Last administered on 07/09/17 09:33; Admin Dose 100 MG; Start 07/06/17 at 09:00 Alprazolam (Xanax) 0.25 mg QHS PRN PO ANXIETY; Start 07/05/17 at 09:30 Aspirin (Halfprin) 81 mg QHS PO Last administered on 07/08/17 20:04; Admin Dose 81 MG; Start 07/05/17 at 21:00 Atorvastatin Calcium (Lipitor) 40 mg QHS PO Last administered on 07/08/17 20: 06; Admin Dose 40 MG; Start 07/05/17 at 21:00 Clopidogrel Bisulfate (plaVIX) 75 mg QHS PO Last administered on 07/08/17 20: 06; Admin Dose 75 MG; Start 07/05/17 at 21:00 Docusate Sodium (Colace) 100 mg TID PRN PO CONSTIPATION Last administered on 09:33; Admin Dose 100 MG; Start 07/05/17 at 09:30 Acetaminophen/ Hydrocodone Bitart ([place] (7.5-325)) 1 tab DAILY PRN PO SEVERE PAIN LEVEL 7-10; Start 07/05/17 at 09:30 Multivit/Ca Carb/ B Cmplx/FA/Prenat (Gi-Evelio) 1 tab DAILY PO Last administered on 07/09/17 09:33; Admin Dose 1 TAB; Start 07/06/17 at 09:00 Pantoprazole (Protonix Tab) 40 mg Q12@06,18 PO Last administered on 07/09/17 05:26; Admin Dose 40 MG; Start 07/05/17 at 18:00 Ranolazine (Ranexa) 500 mg Q12 PO Last administered on 07/09/17 09:33; Admin Dose 500 MG; Start 07/05/17 at 21:00 Ropinirole HCl (Requip) 0.5 mg TID PO Last administered on 07/09/17 12:30; Admin Dose 0.5 MG; Start 07/05/17 at 13:00 Zolpidem Tartrate (Ambien) 7.5 mg QHS PRN PO INSOMNIA Last administered on 07/08 20:05; Admin Dose 7.5 MG; Start 07/05/17 at 09:30 Ondansetron HCl (Zofran Inj) 4 mg Q6H PRN IV NAUSEA AND/OR VOMITING Last administered on 07/08/17 08:29; Admin Dose 4 MG; Start 07/05/17 at 09:30 Nitroglycerin (Nitroglycerin (Sl Tab) 0.4 Mg) 1 tab Q5M PRN SL CHEST PAIN Last administered on 07/09/17 02:21; Admin Dose 1 TAB; Start 07/05/17 at 09:30 Acetaminophen (Tylenol Tab) 650 mg Q6H PRN PO PAIN LEVEL 1-3 OR FEVER; Start at 09:30 Docusate Sodium (Colace) 100 mg Q12H PRN PO CONSTIPATION; Start 07/05/17 at 09: 30 Bisacodyl 5 mg 5 mg DAILY PRN PO CONSTIPATION Last administered on 07/09/17 09 :33; Admin Dose 5 MG; Start 07/05/17 at 09:30 Piperacillin Sod/ Tazobactam Sod (Zosyn 2.25gm/ 50ml (Pmx)) 50 ml @ 100 mls/hr Q8 IVPB Last administered on 07/09/17 05:26; Admin Dose 100 MLS/HR; Start at 14:00 Polyethylene Glycol (Miralax) 17 gm DAILY PO Last administered on 07/08/17 08: 27; Admin Dose 17 GM; Start 07/06/17 at 09:00 Collagenase (Santyl) 1 applic DAILY TOP Last administered on 07/09/17 09:34; Admin Dose 1 APPLIC; Start 07/06/17 at 17:00 Assessment/Plan Chief Complaint/Hosp Course Impression: 1. Cholecystitis - based on non visualized GB on HIDA 2. Abnormality of TC on CT 3. Cholestatic LFTs - concerned about bilirubin and alkaline phos rising - ? CBD obstruction Plan: 1. Continue antibiotic and fluid management per Dr. Gamez 2. Follow lfts 3. Will proceed with US re CBD status 4. Consider MRCP, but nurse tells me he has pacer which may preclude exam - await cardiology input regarding this Problems: SOBIA SALINAS MD Jul 09, 2017 13:37
--- NOTE | 2017-07-09 20:58 | CONS ---
Date/Time of Note Date/Time of Note DATE: 07/09/17 TIME: 20:55 Assessment/Plan Assessment/Plan Chief Complaint/Hosp Course ASSESSMENT: 1. Sepsis- acute cholecystitis, hida abnl on abx bcx neg to date. low likelihood of endocarditis 2. Chest pain- low level trop leak, but also could be demand given tachy/sepsis picture. pt previously declined future intervention/invasive procedure.atypical pain today, low likelihood of acs 3. WCT- likely sinus tachy with [facility] LBBB, no e/o sig arrhythmia. ICD in place 4. ICM- LVEF 30-35%, s/p BiV ICD, chronic NYHA III on home o2 5. Acute on Chronic diastolic+systolic heart failure - fluid mgmt with iHD. recurrent L pleural effusion, may need repeat thoracentesis 6 Chronic renal failure on dialysis failed to prior transplants per history. 7. Hyperlipidemia. 8. CAD- s/p many previous PCI. known [employer] ostial LCx with L/R-L collaterals. [employer] branch of D1 with l-l collaterals . patent lad/Diag stents. distal RCA disease s/p PCI 11/2016 Impression: - con asa 81mg daily - cont plavix 75 mg daily - hold bp meds as bp 90s-100s, restart losartan if bp remains stable - cont statin - cont dialysis per renal - pt intolerant of bb/nitrate previously - gi managing colon findings, cholecystitis - unable to obtain MRI given BiV-ICD placed at [facility] recently, this is a biotronik device and is not MRI compatible Problems: Consultation Date/Type/Reason Admit Date/Time Jul 05, 2017 at 08:11 Initial Consult Date 07/05/17 Type of Consultation: cardiology Referring Provider: MYRTLE BLAKE MD 24 HR Interval Summary Free Text/Dictation pt reports cp this am for 1 minute, has cont sob. no recurrent pain. trop checked down trending. no fevers, chills, sweats. no arrhythmia on tele. stable bp tele reviewed avpaced Detailed Summary ENT: no complaints Respiratory: shortness of breath Cardiovascular: chest pain Gastrointestinal: no complaints Exam/Review of Systems Vital Signs Vitals Vital Signs Date Time Temp Pulse Resp B/P Pulse Ox O2 Delivery O2 Flow Rate FiO2 07/09/17 20:41 10.0 07/09/17 20:41 90 20 100 Simple Mask 07/09/17 19:55 97.7 151/69 Intake and Output 07/08/17 07/08/17 07/09/17 15:00 23:00 07:00 Intake Total 270 ml 470 ml 500 ml Output Total 0 ml 0 ml 4000 ml Balance 270 ml 470 ml -3500 ml Exam Constitutional: alert, oriented Psych: normal mood Head: normocephalic Eyes: nl conjunctiva ENMT: nl external ears & nose Neck: jvd, supple Respiratory: decreased bs L side posterior Cardiovascular: regular rate and rhythm, ii/vi broderick rusb. No edema Gastrointestinal: soft, no ttp Ext: L fistula + thrill Results Result Diagram: 07/09/17 0535 07/09/17 0535 Results 24 hrs Laboratory Tests Test 07/09/17 05:35 White Blood Count 6.8 # Red Blood Count 3.16 L Hemoglobin 9.3 L Hematocrit 30.7 L Mean Corpuscular Volume 97.2 Mean Corpuscular Hemoglobin 29.4 Mean Corpuscular Hemoglobin Concent 30.3 L Red Cell Distribution Width 18.2 H Platelet Count 147 Mean Platelet Volume 10.9 H Neutrophils % 78.4 H Lymphocytes % 11.7 L Monocytes % 8.0 Eosinophils % 0.9 Basophils % 0.3 Nucleated Red Blood Cells % 0.0 Neutrophils # 5.4 Lymphocytes # 0.8 Monocytes # 0.6 Eosinophils # 0.1 Basophils # 0.0 Nucleated Red Blood Cells # 0.0 Sodium Level 134 L Potassium Level 5.2 H Chloride Level 95 L Carbon Dioxide Level 28 Anion Gap 16 Blood Urea Nitrogen 41 #H Creatinine 5.17 H Glucose Level 71 Calcium Level 9.4 Phosphorus Level 4.1 Total Bilirubin 5.6 #H Direct Bilirubin 5.00 H Indirect Bilirubin 0.6 Aspartate Amino Transf (AST/SGOT) 113 H Alanine Aminotransferase (ALT/SGPT) 41 Alkaline Phosphatase 657 H Troponin I 0.439 *H Total Protein 6.1 Albumin 3.0 L Globulin 3.10 Albumin/Globulin Ratio 0.96 Medications Medications Current Medications Allopurinol (Zyloprim) 100 mg DAILY PO Last administered on 07/09/17t 09:33; Admin Dose 100 MG; Start 07/06/17 at 09:00 Alprazolam (Xanax) 0.25 mg QHS PRN PO ANXIETY; Start 07/05/17 at 09:30 Aspirin (Halfprin) 81 mg QHS PO Last administered on 07/08/17 20:04; Admin Dose 81 MG; Start 07/05/17 at 21:00 Atorvastatin Calcium (Lipitor) 40 mg QHS PO Last administered on 07/08/17 20: 06; Admin Dose 40 MG; Start 07/05/17 at 21:00 Clopidogrel Bisulfate (plaVIX) 75 mg QHS PO Last administered on 07/08/17 20: 06; Admin Dose 75 MG; Start 07/05/17 at 21:00 Docusate Sodium (Colace) 100 mg TID PRN PO CONSTIPATION Last administered on 09:33; Admin Dose 100 MG; Start 07/05/17 at 09:30 Acetaminophen/ Hydrocodone Bitart ([place] (7.5-325)) 1 tab DAILY PRN PO SEVERE PAIN LEVEL 7-10; Start 07/05/17 at 09:30 Multivit/Ca Carb/ B Cmplx/FA/Prenat (Gi-Evelio) 1 tab DAILY PO Last administered on 07/09/17 09:33; Admin Dose 1 TAB; Start 07/06/17 at 09:00 Pantoprazole (Protonix Tab) 40 mg Q12@06,18 PO Last administered on 07/09/17 17:29; Admin Dose 40 MG; Start 07/05/17 at 18:00 Ranolazine (Ranexa) 500 mg Q12 PO Last administered on 07/09/17 09:33; Admin Dose 500 MG; Start 07/05/17 at 21:00 Ropinirole HCl (Requip) 0.5 mg TID PO Last administered on 07/09/17 12:30; Admin Dose 0.5 MG; Start 07/05/17 at 13:00 Zolpidem Tartrate (Ambien) 7.5 mg QHS PRN PO INSOMNIA Last administered on 07/08 20:05; Admin Dose 7.5 MG; Start 07/05/17 at 09:30 Ondansetron HCl (Zofran Inj) 4 mg Q6H PRN IV NAUSEA AND/OR VOMITING Last administered on 07/08/17 08:29; Admin Dose 4 MG; Start 07/05/17 at 09:30 Nitroglycerin (Nitroglycerin (Sl Tab) 0.4 Mg) 1 tab Q5M PRN SL CHEST PAIN Last administered on 07/09/17 02:21; Admin Dose 1 TAB; Start 07/05/17 at 09:30 Acetaminophen (Tylenol Tab) 650 mg Q6H PRN PO PAIN LEVEL 1-3 OR FEVER; Start at 09:30 Docusate Sodium (Colace) 100 mg Q12H PRN PO CONSTIPATION; Start 07/05/17 at 09: 30 Bisacodyl 5 mg 5 mg DAILY PRN PO CONSTIPATION Last administered on 07/09/17 09 :33; Admin Dose 5 MG; Start 07/05/17 at 09:30 Piperacillin Sod/ Tazobactam Sod (Zosyn 2.25gm/ 50ml (Pmx)) 50 ml @ 100 mls/hr Q8 IVPB Last administered on 07/09/17 14:57; Admin Dose 100 MLS/HR; Start at 14:00 Polyethylene Glycol (Miralax) 17 gm DAILY PO Last administered on 07/08/17 08: 27; Admin Dose 17 GM; Start 07/06/17 at 09:00 Collagenase (Santyl) 1 applic DAILY TOP Last administered on 07/09/17 09:34; Admin Dose 1 APPLIC; Start 07/06/17 at 17:00 Calcium Carbonate (Tums) 500 mg QID PRN PO PRN; Start 07/09/17 at 17:00 Procedures Procedures cxr reports reviewed progressive SUSANA Sommers Jul 09, 2017 20:58
[2017-07-09] MEDS: CLOPIDOGREL 75 MG TAB PO SCH (21:03)
[2017-07-09] MEDS: ASPIRIN (EC) 81 MG TAB PO SCH (21:03)
[2017-07-09] MEDS: ATORVASTATIN 40 MG TAB PO SCH (21:05)
[2017-07-09] MEDS: ZOLPIDEM 5 MG TAB PO PRN (21:06)
[2017-07-10] VITALS (9 sets, daily range): BP systolic 114–136; BP diastolic 51–65; PULSE 85–102; RESP 18–22
[2017-07-10] MEDS: ALBUTEROL/IPRATROPIUM (NEB) 3 ML AMP HHN SCH ×4 (02:02→20:31)
[2017-07-10] MEDS: PANTOPRAZOLE (EC) 40 MG TAB PO SCH ×2 (06:38→17:32)
[2017-07-10] MEDS: PIPER-TAZO 2.25 GM (PMX) 50 ML IVPB SCH ×3 (06:39→22:02)
[2017-07-10] MEDS: SEVELAMER 800 MG TAB PO SCH ×4 (10:02→17:29)
[2017-07-10] MEDS: RANOLAZINE (SR) 500 MG TAB PO SCH ×2 (10:03→21:02)
[2017-07-10] MEDS: POLYETHYLENE GLYCOL 17 GM PACKET PO SCH (10:03)
[2017-07-10] MEDS: MULTIVIT/CA CARB/B CMPLX/FA TAB PO SCH (10:03)
[2017-07-10] MEDS: ROPINIROLE 0.25 MG TAB PO SCH ×3 (10:04→21:02)
[2017-07-10] MEDS: COLLAGENASE 30 GM TUBE TOP SCH (10:04)
[2017-07-10] MEDS: ALLOPURINOL 100 MG TAB PO SCH (10:04)
[2017-07-10 10:21] LABS: ALBUMIN 3.4 g/dl (3.3-4.9); BILIRUBIN,INDIRECT 3.6 mg/dl (0-1.1); BILIRUBIN,TOTAL 4.6 mg/dl (0.2-1.3); CALCIUM 9.4 mg/dl (8.4-10.2); CREATININE 3.93 mg/dl (0.61-1.24); POTASSIUM 3.8 mmol/L (3.5-5.1); TOTAL PROTEIN 6.8 g/dl (6.1-8.1)
--- NOTE | 2017-07-10 13:11 | CONS ---
Date/Time of Note Date/Time of Note DATE: 07/10/17 TIME: 13:05 Assessment/Plan Assessment/Plan Problems: (1) HTN (hypertension) Comment: controlled (2) Debility Comment: apparently now being seen by Hospice... pt is NOT READY to stop dialysis, he just tired about recurrent hospitalizations (3) Pleural effusion Comment: bilat... he not want anything invasive, ie: thoracentesis, at this point (4) ESRD (end stage renal disease) on dialysis Status: Chronic Comment: for HD in AM, then to be back on his MWF schedule (5) Leukocytosis Comment: resolved with abx for acute vladimir (6) Cholelithiasis Comment: with non vis on HIDA, c/w acute cholecystitis.. is on abx....still w LFT abn, but no abd pain or emesis (7) Elevated liver enzymes Comment: poss CBD stone... cannot do a MRCP due to pacer Consultation Date/Type/Reason Admit Date/Time Jul 05, 2017 at 08:11 Initial Consult Date 07/05/17 Type of Consultation: renal Referring Provider: MYRTLE BLAKE MD 24 HR Interval Summary Free Text/Dictation apparently pt now being seen by Hospice... no notes in the chart to that effect... discussed with pt... they had suggested Home Hemo, per pt... told him that is out of the question, and it is not anything that is possible in his situation Exam/Review of Systems Vital Signs Vitals Vital Signs Date Time Temp Pulse Resp B/P Pulse Ox O2 Delivery O2 Flow Rate FiO2 07/10/17 12:17 88 07/10/17 11:33 98.3 20 115/55 96 07/10/17 08:56 Nasal Cannula 6.0 Intake and Output 07/09/17 07/09/17 07/10/17 15:00 23:00 07:00 Intake Total 240 ml 250 ml 200 ml Output Total 250 ml Balance 240 ml 0 ml 200 ml Exam Constitutional: alert, oriented Neck: supple Respiratory: clear to auscultation Cardiovascular: regular rate and rhythm Gastrointestinal: non-tender, soft Extremities: other (fxn AVF) Results Result Diagram: 07/09/17 0535 07/10/17 0722 Results 24 hrs Laboratory Tests Test 07/10/17 07:22 Sodium Level 140 Potassium Level 3.8 Chloride Level 101 Carbon Dioxide Level 22 Anion Gap 21 H Blood Urea Nitrogen 26 #H Creatinine 3.93 #H Glucose Level 104 Calcium Level 9.4 Total Bilirubin 4.6 H Direct Bilirubin 1.00 #H Indirect Bilirubin 3.6 H Aspartate Amino Transf (AST/SGOT) 108 H Alanine Aminotransferase (ALT/SGPT) 35 Alkaline Phosphatase 687 H Total Protein 6.8 Albumin 3.4 Globulin 3.40 H Albumin/Globulin Ratio 1.00 Medications Medications Current Medications Allopurinol (Zyloprim) 100 mg DAILY PO Last administered on 07/10/17 10:04; Admin Dose 100 MG; Start 07/06/17 at 09:00 Alprazolam (Xanax) 0.25 mg QHS PRN PO ANXIETY; Start 07/05/17 at 09:30 Aspirin (Halfprin) 81 mg QHS PO Last administered on 07/09/17 21:03; Admin Dose 81 MG; Start 07/05/17 at 21:00 Atorvastatin Calcium (Lipitor) 40 mg QHS PO Last administered on 07/09/17 21: 05; Admin Dose 40 MG; Start 07/05/17 at 21:00 Clopidogrel Bisulfate (plaVIX) 75 mg QHS PO Last administered on 07/09/17 21: 03; Admin Dose 75 MG; Start 07/05/17 at 21:00 Docusate Sodium (Colace) 100 mg TID PRN PO CONSTIPATION Last administered on 21:32; Admin Dose 100 MG; Start 07/05/17 at 09:30 Acetaminophen/ Hydrocodone Bitart ([place] (7.5-325)) 1 tab DAILY PRN PO SEVERE PAIN LEVEL 7-10; Start 07/05/17 at 09:30 Multivit/Ca Carb/ B Cmplx/FA/Prenat (Gi-Evelio) 1 tab DAILY PO Last administered on 07/10/17 10:03; Admin Dose 1 TAB; Start 07/06/17 at 09:00 Pantoprazole (Protonix Tab) 40 mg Q12@,18 PO Last administered on 07/10/17 06:38; Admin Dose 40 MG; Start 07/05/17 at 18:00 Ranolazine (Ranexa) 500 mg Q12 PO Last administered on 07/10/17 10:03; Admin Dose 500 MG; Start 07/05/17 at 21:00 Ropinirole HCl (Requip) 0.5 mg TID PO Last administered on 07/10/17 10:04; Admin Dose 0.5 MG; Start 07/05/17 at 13:00 Zolpidem Tartrate (Ambien) 7.5 mg QHS PRN PO INSOMNIA Last administered on 07/09 21:06; Admin Dose 7.5 MG; Start 07/05/17 at 09:30 Ondansetron HCl (Zofran Inj) 4 mg Q6H PRN IV NAUSEA AND/OR VOMITING Last administered on 07/08/17 08:29; Admin Dose 4 MG; Start 07/05/17 at 09:30 Nitroglycerin (Nitroglycerin (Sl Tab) 0.4 Mg) 1 tab Q5M PRN SL CHEST PAIN Last administered on 07/09/17 02:21; Admin Dose 1 TAB; Start 07/05/17 at 09:30 Acetaminophen (Tylenol Tab) 650 mg Q6H PRN PO PAIN LEVEL 1-3 OR FEVER; Start at 09:30 Docusate Sodium (Colace) 100 mg Q12H PRN PO CONSTIPATION; Start 07/05/17 at 09: 30 Bisacodyl 5 mg 5 mg DAILY PRN PO CONSTIPATION Last administered on 07/09/17 21 :32; Admin Dose 5 MG; Start 07/05/17 at 09:30 Piperacillin Sod/ Tazobactam Sod (Zosyn 2.25gm/ 50ml (Pmx)) 50 ml @ 100 mls/hr Q8 IVPB Last administered on 07/10/17 06:39; Admin Dose 100 MLS/HR; Start at 14:00 Polyethylene Glycol (Miralax) 17 gm DAILY PO Last administered on 07/08/17 08: 27; Admin Dose 17 GM; Start 07/06/17 at 09:00 Collagenase (Santyl) 1 applic DAILY TOP Last administered on 07/10/17 10:04; Admin Dose 1 APPLIC; Start 07/06/17 at 17:00 Calcium Carbonate (Tums) 500 mg QID PRN PO PRN; Start 07/09/17 at 17:00 Simethicone (Mylicon) 80 mg Q6H PRN PO DISTENSION/GAS/BLOATING Last administered on 07/10/17t 06:38; Admin Dose 80 MG; Start 07/10/17 at 05:00 POP BOYCE MD Jul 10, 2017 13:11
--- NOTE | 2017-07-10 13:12 | RADRPT ---
PROCEDURE: US Abdomen (right upper quadrant). CLINICAL INDICATION: Abdominal pain TECHNIQUE: Multiple real-time longitudinal and transverse images of the right upper quadrant of th e abdomen were acquired utilizing a curved array transducer. Images were reviewed on a high-resoluti on PACS workstation. COMPARISON: CT from 07/06/2017. Ultrasound from 07/05/2017. FINDINGS: The liver is normal in size and echogenicity without focal mass or intrahepatic biliary dilatation. Small stones are present within the gallbladder. There is no pericholecystic fluid or gallbladder wall thickening. No intra or extrahepatic biliary dilatation is seen. The common bile duct measure s 4.8 mm in maximal dimension. The visualized portions of the pancreas are unremarkable with obscur ation of the tail of the pancreas. No intraperitoneal free fluid is identified. Right pleural effus ion is partially imaged. The right kidney is atrophic measuring 7.4 cm in length with cortical thinning and increased cortica l echogenicity. There is a cyst in the right kidney measuring up to 3.8 cm. No hydronephrosis, mas s, or calculus is seen. IMPRESSION: 1. Cholelithiasis without evidence of cholecystitis. 2. Atrophic right kidney with a simple appearing three-point centimeter cyst. 3. Right pleural effusion. RPTAT: QQ .Sesar Gaitan MD, Date Time Electronically viewed and signed by .Sesar Gaitan MD, MD on 07/10/2017 13:12 .A/
--- NOTE | 2017-07-10 14:15 | CONS ---
Date/Time of Note Date/Time of Note DATE: 07/10/17 TIME: 14:05 Consult Date/Type/Reason Admit Date/Time Jul 05, 2017 at 08:11 Initial Consult Date 07/05/17 Type of Consultation: GI Ordering Provider: MYRTLE BLAKE MD Subjective Denies abdominal pain Wants to go home on hospice Note repeat US shows no evidence of biliary dilation Objective Vital Signs Date Time Temp Pulse Resp B/P Pulse Ox O2 Delivery O2 Flow Rate FiO2 07/10/17 12:17 88 07/10/17 11:33 98.3 20 115/55 96 07/10/17 08:56 Nasal Cannula 6.0 Cheat: Clear Cardiac: no m , r, g Abdomen: soft, non tender. + bs Intake and Output 07/09/17 07/09/17 07/10/17 15:00 23:00 07:00 Intake Total 240 ml 250 ml 200 ml Output Total 250 ml Balance 240 ml 0 ml 200 ml Results/Medications Result Diagram: 07/09/17 0535 07/10/17 0722 Results 24 hrs Laboratory Tests Test 07/10/17 07:22 Sodium Level 140 Potassium Level 3.8 Chloride Level 101 Carbon Dioxide Level 22 Anion Gap 21 H Blood Urea Nitrogen 26 #H Creatinine 3.93 #H Glucose Level 104 Calcium Level 9.4 Total Bilirubin 4.6 H Direct Bilirubin 1.00 #H Indirect Bilirubin 3.6 H Aspartate Amino Transf (AST/SGOT) 108 H Alanine Aminotransferase (ALT/SGPT) 35 Alkaline Phosphatase 687 H Total Protein 6.8 Albumin 3.4 Globulin 3.40 H Albumin/Globulin Ratio 1.00 Medications Current Medications Allopurinol (Zyloprim) 100 mg DAILY PO Last administered on 07/10/17 10:04; Admin Dose 100 MG; Start 07/06/17 at 09:00 Alprazolam (Xanax) 0.25 mg QHS PRN PO ANXIETY; Start 07/05/17 at 09:30 Aspirin (Halfprin) 81 mg QHS PO Last administered on 07/09/17 21:03; Admin Dose 81 MG; Start 07/05/17 at 21:00 Atorvastatin Calcium (Lipitor) 40 mg QHS PO Last administered on 07/09/17 21: 05; Admin Dose 40 MG; Start 07/05/17 at 21:00 Clopidogrel Bisulfate (plaVIX) 75 mg QHS PO Last administered on 07/09/17 21: 03; Admin Dose 75 MG; Start 07/05/17 at 21:00 Docusate Sodium (Colace) 100 mg TID PRN PO CONSTIPATION Last administered on 21:32; Admin Dose 100 MG; Start 07/05/17 at 09:30 Acetaminophen/ Hydrocodone Bitart ([place] (7.5-325)) 1 tab DAILY PRN PO SEVERE PAIN LEVEL 7-10; Start 07/05/17 at 09:30 Multivit/Ca Carb/ B Cmplx/FA/Prenat (Gi-Evelio) 1 tab DAILY PO Last administered on 07/10/17 10:03; Admin Dose 1 TAB; Start 07/06/17 at 09:00 Pantoprazole (Protonix Tab) 40 mg Q12@06,18 PO Last administered on 07/10/17 06:38; Admin Dose 40 MG; Start 07/05/17 at 18:00 Ranolazine (Ranexa) 500 mg Q12 PO Last administered on 07/10/17 10:03; Admin Dose 500 MG; Start 07/05/17 at 21:00 Ropinirole HCl (Requip) 0.5 mg TID PO Last administered on 07/10/17 13:35; Admin Dose 0.5 MG; Start 07/05/17 at 13:00 Zolpidem Tartrate (Ambien) 7.5 mg QHS PRN PO INSOMNIA Last administered on 07/09 21:06; Admin Dose 7.5 MG; Start 07/05/17 at 09:30 Ondansetron HCl (Zofran Inj) 4 mg Q6H PRN IV NAUSEA AND/OR VOMITING Last administered on 07/08/17 08:29; Admin Dose 4 MG; Start 07/05/17 at 09:30 Nitroglycerin (Nitroglycerin (Sl Tab) 0.4 Mg) 1 tab Q5M PRN SL CHEST PAIN Last administered on 07/09/17 02:21; Admin Dose 1 TAB; Start 07/05/17 at 09:30 Acetaminophen (Tylenol Tab) 650 mg Q6H PRN PO PAIN LEVEL 1-3 OR FEVER; Start at 09:30 Docusate Sodium (Colace) 100 mg Q12H PRN PO CONSTIPATION; Start 07/05/17 at 09: 30 Bisacodyl 5 mg 5 mg DAILY PRN PO CONSTIPATION Last administered on 07/09/17 21 :32; Admin Dose 5 MG; Start 07/05/17 at 09:30 Piperacillin Sod/ Tazobactam Sod (Zosyn 2.25gm/ 50ml (Pmx)) 50 ml @ 100 mls/hr Q8 IVPB Last administered on 07/10/17 13:35; Admin Dose 100 MLS/HR; Start at 14:00 Polyethylene Glycol (Miralax) 17 gm DAILY PO Last administered on 07/08/17 08: 27; Admin Dose 17 GM; Start 07/06/17 at 09:00 Collagenase (Santyl) 1 applic DAILY TOP Last administered on 07/10/17 10:04; Admin Dose 1 APPLIC; Start 07/06/17 at 17:00 Calcium Carbonate (Tums) 500 mg QID PRN PO PRN; Start 07/09/17 at 17:00 Simethicone (Mylicon) 80 mg Q6H PRN PO DISTENSION/GAS/BLOATING Last administered on 07/10/17 06:38; Admin Dose 80 MG; Start 07/10/17 at 05:00 Assessment/Plan Chief Complaint/Hosp Course Impression: 1. Cholecystitis - based on non visualized GB on HIDA 2. Abnormality of TC on CT 3. Cholestatic LFTs - concerned about alkaline phos rising - note repeat US shows no evidence of biliary dilation and patient is not a candidate for MRCP because of implantable cardiac device; Given overall status, would be reluctant to proceed with ERCP Plan: 1. Continue antibiotic and fluid management per Dr. Johnson 2. Follow lfts - note bilirubin slightly lower, unusual that prior direct hyperbilirubenemia is now indirect; ? lab error, await repeat 3. If patient does not proceed with hospice would consider colonoscopy and possibly ERCP if LFTs do not return to normal 4. Will see intermittently at this point. Please call if problems develop in interim Problems: SOBIA SALINAS MD Jul 10, 2017 14:15
--- NOTE | 2017-07-10 16:50 | CONS ---
Date/Time of Note Date/Time of Note DATE: 07/10/17 TIME: 16:46 Assessment/Plan Assessment/Plan Chief Complaint/Hosp Course ASSESSMENT: 1. Sepsis- acute cholecystitis, hida abnl on abx bcx neg to date. low likelihood of endocarditis 2. Chest pain- low level trop leak, but also could be demand given tachy/sepsis picture. pt previously declined future intervention/invasive procedure.atypical pain today, low likelihood of acs 3. WCT- likely sinus tachy with [place] LBBB, no e/o sig arrhythmia. ICD in place 4. ICM- LVEF 30-35%, s/p BiV ICD, chronic NYHA III on home o2 5. Acute on Chronic diastolic+systolic heart failure - fluid mgmt with iHD. recurrent L pleural effusion, may need repeat thoracentesis 6 Chronic renal failure on dialysis failed to prior transplants per history. 7. Hyperlipidemia. 8. CAD- s/p many previous PCI. known PAN [employer] ostial LCx with L/R-L collaterals. PAN [employer] branch of D1 with l-l collaterals . patent lad/Diag stents. distal RCA disease s/p PCI 11/2016 Impression: - con asa 81mg daily - cont plavix 75 mg daily - watch bp, consider restart losartan if bp remains stable - pt intolerant of bb/nitrate previously - cont statin - cont dialysis per renal - unable to obtain MRI given BiV-ICD placed at [facility] recently, this is a biotronik device and is not MRI compatible - pt considering home hospice, all questions answered from cardiology perspective. Problems: Consultation Date/Type/Reason Admit Date/Time Jul 05, 2017 at 08:11 Initial Consult Date 07/05/17 Type of Consultation: card Referring Provider: MYRTLE BLAKE MD 24 HR Interval Summary Free Text/Dictation denies further chest pain. does have sob, cont with breathing treatments. denies abd pain. pt states tired of recurrent admissions and cont medical issues. is considering home hospice care. pt states has not mad decision as of this am. tele reviewed: BIV paced, rare pvcs Detailed Summary ENT: no complaints Respiratory: shortness of breath Cardiovascular: no complaints Gastrointestinal: no complaints Exam/Review of Systems Vital Signs Vitals Vital Signs Date Time Temp Pulse Resp B/P Pulse Ox O2 Delivery O2 Flow Rate FiO2 07/10/17 16:32 85 07/10/17 11:33 98.3 20 115/55 96 07/10/17 08:56 Nasal Cannula 6.0 Intake and Output 07/09/17 07/09/17 07/10/17 15:00 23:00 07:00 Intake Total 240 ml 250 ml 200 ml Output Total 250 ml Balance 240 ml 0 ml 200 ml Exam Constitutional: alert, oriented Psych: normal mood Head: normocephalic Eyes: nl conjunctiva ENMT: nl external ears & nose Neck: jvd, supple Respiratory: decreased bs L> R side posterior Cardiovascular: regular rate and rhythm, ii/vi broderick rusb. No edema Gastrointestinal: soft, no ttp Ext: L fistula + thrill Results Result Diagram: 07/09/17 0535 07/10/17 0722 Results 24 hrs Laboratory Tests Test 07/10/17 07:22 Sodium Level 140 Potassium Level 3.8 Chloride Level 101 Carbon Dioxide Level 22 Anion Gap 21 H Blood Urea Nitrogen 26 #H Creatinine 3.93 #H Glucose Level 104 Calcium Level 9.4 Total Bilirubin 4.6 H Direct Bilirubin 1.00 #H Indirect Bilirubin 3.6 H Aspartate Amino Transf (AST/SGOT) 108 H Alanine Aminotransferase (ALT/SGPT) 35 Alkaline Phosphatase 687 H Total Protein 6.8 Albumin 3.4 Globulin 3.40 H Albumin/Globulin Ratio 1.00 Medications Medications Current Medications Allopurinol (Zyloprim) 100 mg DAILY PO Last administered on 07/10/17 10:04; Admin Dose 100 MG; Start 07/06/17 at 09:00 Alprazolam (Xanax) 0.25 mg QHS PRN PO ANXIETY; Start 07/05/17 at 09:30 Aspirin (Halfprin) 81 mg QHS PO Last administered on 07/09/17 21:03; Admin Dose 81 MG; Start 07/05/17 at 21:00 Atorvastatin Calcium (Lipitor) 40 mg QHS PO Last administered on 07/09/17 21: 05; Admin Dose 40 MG; Start 07/05/17 at 21:00 Clopidogrel Bisulfate (plaVIX) 75 mg QHS PO Last administered on 07/09/17 21: 03; Admin Dose 75 MG; Start 07/05/17 at 21:00 Docusate Sodium (Colace) 100 mg TID PRN PO CONSTIPATION Last administered on 21:32; Admin Dose 100 MG; Start 07/05/17 at 09:30 Acetaminophen/ Hydrocodone Bitart ([place] (7.5-325)) 1 tab DAILY PRN PO SEVERE PAIN LEVEL 7-10; Start 07/05/17 at 09:30 Multivit/Ca Carb/ B Cmplx/FA/Prenat (Gi-Evelio) 1 tab DAILY PO Last administered on 07/10/17 10:03; Admin Dose 1 TAB; Start 07/06/17 at 09:00 Pantoprazole (Protonix Tab) 40 mg Q12@06,18 PO Last administered on 07/10/17 06:38; Admin Dose 40 MG; Start 07/05/17 at 18:00 Ranolazine (Ranexa) 500 mg Q12 PO Last administered on 07/10/17 10:03; Admin Dose 500 MG; Start 07/05/17 at 21:00 Ropinirole HCl (Requip) 0.5 mg TID PO Last administered on 07/10/17 13:35; Admin Dose 0.5 MG; Start 07/05/17 at 13:00 Zolpidem Tartrate (Ambien) 7.5 mg QHS PRN PO INSOMNIA Last administered on 07/09 21:06; Admin Dose 7.5 MG; Start 07/05/17 at 09:30 Ondansetron HCl (Zofran Inj) 4 mg Q6H PRN IV NAUSEA AND/OR VOMITING Last administered on 07/08/17 08:29; Admin Dose 4 MG; Start 07/05/17 at 09:30 Nitroglycerin (Nitroglycerin (Sl Tab) 0.4 Mg) 1 tab Q5M PRN SL CHEST PAIN Last administered on 07/09/17 02:21; Admin Dose 1 TAB; Start 07/05/17 at 09:30 Acetaminophen (Tylenol Tab) 650 mg Q6H PRN PO PAIN LEVEL 1-3 OR FEVER; Start at 09:30 Docusate Sodium (Colace) 100 mg Q12H PRN PO CONSTIPATION; Start 07/05/17 at 09: 30 Bisacodyl 5 mg 5 mg DAILY PRN PO CONSTIPATION Last administered on 07/09/17 21 :32; Admin Dose 5 MG; Start 07/05/17 at 09:30 Piperacillin Sod/ Tazobactam Sod (Zosyn 2.25gm/ 50ml (Pmx)) 50 ml @ 100 mls/hr Q8 IVPB Last administered on 07/10/17 13:35; Admin Dose 100 MLS/HR; Start at 14:00 Polyethylene Glycol (Miralax) 17 gm DAILY PO Last administered on 07/08/17 08: 27; Admin Dose 17 GM; Start 07/06/17 at 09:00 Collagenase (Santyl) 1 applic DAILY TOP Last administered on 07/10/17 10:04; Admin Dose 1 APPLIC; Start 07/06/17 at 17:00 Calcium Carbonate (Tums) 500 mg QID PRN PO PRN; Start 07/09/17 at 17:00 Simethicone (Mylicon) 80 mg Q6H PRN PO DISTENSION/GAS/BLOATING Last administered on 07/10/17 06:38; Admin Dose 80 MG; Start 07/10/17 at 05:00 Procedures Procedures abd us report reviewed 1. Cholelithiasis without evidence of cholecystitis. 2. Atrophic right kidney with a simple appearing three-point centimeter cyst. 3. Right pleural effusion. SUSANA VASQUEZ Jul 10, 2017 16:50
[2017-07-10] MEDS: CALCIUM CARBONATE 500 MG CHEW TAB PO PRN ×2 (17:32→21:04)
[2017-07-10] MEDS: ASPIRIN (EC) 81 MG TAB PO SCH (21:00)
[2017-07-10] MEDS: ATORVASTATIN 40 MG TAB PO SCH (21:01)
[2017-07-10] MEDS: CLOPIDOGREL 75 MG TAB PO SCH (21:01)
[2017-07-10] MEDS: DOCUSATE SODIUM 100 MG CAP PO PRN (21:04)
[2017-07-10] MEDS: ZOLPIDEM 5 MG TAB PO PRN (21:05)
[2017-07-11] VITALS (19 sets, daily range): BP systolic 94–132; BP diastolic 42–57; PULSE 61–97; RESP 16–19
[2017-07-11] MEDS: ALBUTEROL/IPRATROPIUM (NEB) 3 ML AMP HHN SCH ×4 (02:00→21:53)
[2017-07-11] MEDS: PIPER-TAZO 2.25 GM (PMX) 50 ML IVPB SCH ×3 (05:51→21:39)
[2017-07-11] MEDS: PANTOPRAZOLE (EC) 40 MG TAB PO SCH ×3 (06:36→17:33)
[2017-07-11] MEDS: SEVELAMER 800 MG TAB PO SCH ×4 (07:55→17:30)
[2017-07-11] MEDS: ALBUMIN HUMAN 25% 100 ML IV PRN (08:21)
[2017-07-11 08:43] LABS: BASOPHILS % 0.3 % (0.0-2.0); EOSINOPHILS # 0.1 10^3/ul (0.0-0.5); EOSINOPHILS % 0.7 % (0.0-7.0); HEMATOCRIT 25.5 % (42.0-52.0); HEMOGLOBIN 7.7 g/dl (14.0-18.0); LYMPHOCYTES # 0.9 10^3/ul (0.8-2.9); LYMPHOCYTES % 8.5 % (15.0-51.0); MEAN CORPUSCULAR HEMOGLOBIN 29.7 pg (29.0-33.0); MEAN CORPUSCULAR HGB CONC 30.2 g/dl (32.0-37.0); MEAN CORPUSCULAR VOLUME 98.5 fl (82.0-101.0); MEAN PLATELET VOLUME 11.8 fl (7.4-10.4); MONOCYTE # 0.6 10^3/ul (0.3-0.9); MONOCYTES % 5.8 % (0.0-11.0); NEUTROPHIL # 8.9 10^3/ul (1.6-7.5); NEUTROPHILS % 83.9 % (39.0-77.0); PLATELET COUNT 135 10^3/UL (140-415); POSITIVE DIFF @See below; RED BLOOD COUNT 2.59 10^6/ul (4.70-6.10); RED CELL DISTRIBUTION WIDTH 17.9 % (11.5-14.5); WHITE BLOOD COUNT 10.5 10^3/ul (4.8-10.8)
[2017-07-11] MEDS: POLYETHYLENE GLYCOL 17 GM PACKET PO SCH (09:00)
[2017-07-11] MEDS: COLLAGENASE 30 GM TUBE TOP SCH (09:00)
[2017-07-11] MEDS: ROPINIROLE 0.25 MG TAB PO SCH ×3 (09:00→21:38)
[2017-07-11] MEDS: RANOLAZINE (SR) 500 MG TAB PO SCH ×2 (09:00→21:39)
[2017-07-11 09:09] LABS: ALBUMIN 2.5 g/dl (3.3-4.9); ALBUMIN/GLOBULIN RATIO 0.92; BILIRUBIN,DIRECT 3.6 mg/dl (0.00-0.20); BILIRUBIN,INDIRECT 0.6 mg/dl (0-1.1); BILIRUBIN,TOTAL 4.2 mg/dl (0.2-1.3); CALCIUM 8.9 mg/dl (8.4-10.2); CREATININE 4.91 mg/dl (0.61-1.24); TOTAL PROTEIN 5.2 g/dl (6.1-8.1)
--- NOTE | 2017-07-11 09:55 | CONS ---
Date/Time of Note Date/Time of Note DATE: 07/11/17 TIME: 09:50 Assessment/Plan Assessment/Plan Problems: (1) Cholelithiasis (2) ESRD (end stage renal disease) on dialysis Status: Chronic (3) CHF (congestive heart failure) Qualifiers: Congestive heart failure type: unspecified congestive heart failure type Congestive heart failure chronicity: acute on chronic Qualified Code: I50.9 - Acute on chronic congestive heart failure, unspecified congestive heart failure type Additional Assessment/Plan attempting max uf with dialsis and to follow up lfts. Too ill to withstand surgery with end stage cardiomyopathy. Consultation Date/Type/Reason Admit Date/Time Jul 05, 2017 at 08:11 Initial Consult Date 07/05/17 Type of Consultation: Renal Referring Provider: MYRTLE BLAKE MD 24 HR Interval Summary Free Text/Dictation On dialysis presently. No significant abdominal pain but alot of gas and passing stool yesterday. Hasn't been out of bed. Subjective hx not possible: other (very weak) Detailed Summary Eyes: other (no pain), pain Cardiovascular: other (chronic sob and felt no better after thoracentesis) Exam/Review of Systems Vital Signs Vitals Vital Signs Date Time Temp Pulse Resp B/P Pulse Ox O2 Delivery O2 Flow Rate FiO2 07/11/17 09:38 97 6.0 07/11/17 09:36 90 20 Nasal Cannula 07/11/17 07:00 98.2 115/55 Intake and Output 07/10/17 07/10/17 07/11/17 15:00 23:00 07:00 Intake Total 290 ml 400 ml Output Total 0 ml Balance 290 ml 400 ml Exam Constitutional: alert, oriented Psych: other (seems resigned to medical conditions) Cardiovascular: regular rate and rhythm Gastrointestinal: non-tender, soft Neurological: FELT CHECKER II-XII intact, nl mental status Results Result Diagram: 07/11/17 0800 07/11/17 0800 Results 24 hrs Laboratory Tests Test 07/11/17 08:00 White Blood Count 10.5 # Red Blood Count 2.59 L Hemoglobin 7.7 L Hematocrit 25.5 L Mean Corpuscular Volume 98.5 Mean Corpuscular Hemoglobin 29.7 Mean Corpuscular Hemoglobin Concent 30.2 L Red Cell Distribution Width 17.9 H Platelet Count 135 L Mean Platelet Volume 11.8 H Neutrophils % 83.9 H Lymphocytes % 8.5 L Monocytes % 5.8 Eosinophils % 0.7 Basophils % 0.3 Nucleated Red Blood Cells % 0.0 Neutrophils # 8.9 H Lymphocytes # 0.9 Monocytes # 0.6 Eosinophils # 0.1 Basophils # 0.0 Nucleated Red Blood Cells # 0.0 Sodium Level 134 L Potassium Level 4.0 Chloride Level 96 L Carbon Dioxide Level 27 Anion Gap 15 Blood Urea Nitrogen 37 #H Creatinine 4.91 H Glucose Level 85 Calcium Level 8.9 Total Bilirubin 4.2 H Direct Bilirubin 3.60 #H Indirect Bilirubin 0.6 Aspartate Amino Transf (AST/SGOT) 60 H Alanine Aminotransferase (ALT/SGPT) 38 Alkaline Phosphatase 504 H Total Protein 5.2 #L Albumin 2.5 L Globulin 2.70 Albumin/Globulin Ratio 0.92 Medications Medications Current Medications Allopurinol (Zyloprim) 100 mg DAILY PO Last administered on 07/10/17 10:04; Admin Dose 100 MG; Start 07/06/17 at 09:00 Alprazolam (Xanax) 0.25 mg QHS PRN PO ANXIETY; Start 07/05/17 at 09:30 Aspirin (Halfprin) 81 mg QHS PO Last administered on 07/10/17 21:00; Admin Dose 81 MG; Start 07/05/17 at 21:00 Atorvastatin Calcium (Lipitor) 40 mg QHS PO Last administered on 07/10/17 21: 01; Admin Dose 40 MG; Start 07/05/17 at 21:00 Clopidogrel Bisulfate (plaVIX) 75 mg QHS PO Last administered on 07/10/17 21: 01; Admin Dose 75 MG; Start 07/05/17 at 21:00 Docusate Sodium (Colace) 100 mg TID PRN PO CONSTIPATION Last administered on 21:04; Admin Dose 100 MG; Start 07/05/17 at 09:30 Acetaminophen/ Hydrocodone Bitart ([place] (7.5-325)) 1 tab DAILY PRN PO SEVERE PAIN LEVEL 7-10; Start 07/05/17 at 09:30 Multivit/Ca Carb/ B Cmplx/FA/Prenat (Gi-Evelio) 1 tab DAILY PO Last administered on 07/10/17 10:03; Admin Dose 1 TAB; Start 07/06/17 at 09:00 Pantoprazole (Protonix Tab) 40 mg Q12@06,18 PO Last administered on 07/11/17 06:36; Admin Dose 40 MG; Start 07/05/17 at 18:00 Ranolazine (Ranexa) 500 mg Q12 PO Last administered on 07/10/17 21:02; Admin Dose 500 MG; Start 07/05/17 at 21:00 Ropinirole HCl (Requip) 0.5 mg TID PO Last administered on 07/10/17 21:02; Admin Dose 0.5 MG; Start 07/05/17 at 13:00 Zolpidem Tartrate (Ambien) 7.5 mg QHS PRN PO INSOMNIA Last administered on 07/10 21:05; Admin Dose 7.5 MG; Start 07/05/17 at 09:30 Ondansetron HCl (Zofran Inj) 4 mg Q6H PRN IV NAUSEA AND/OR VOMITING Last administered on 07/08/17 08:29; Admin Dose 4 MG; Start 07/05/17 at 09:30 Nitroglycerin (Nitroglycerin (Sl Tab) 0.4 Mg) 1 tab Q5M PRN SL CHEST PAIN Last administered on 07/09/17 02:21; Admin Dose 1 TAB; Start 07/05/17 at 09:30 Acetaminophen (Tylenol Tab) 650 mg Q6H PRN PO PAIN LEVEL 1-3 OR FEVER; Start at 09:30 Docusate Sodium (Colace) 100 mg Q12H PRN PO CONSTIPATION; Start 07/05/17 at 09: 30 Bisacodyl 5 mg 5 mg DAILY PRN PO CONSTIPATION Last administered on 07/09/17 21 :32; Admin Dose 5 MG; Start 07/05/17 at 09:30 Piperacillin Sod/ Tazobactam Sod (Zosyn 2.25gm/ 50ml (Pmx)) 50 ml @ 100 mls/hr Q8 IVPB Last administered on 07/11/17 05:51; Admin Dose 100 MLS/HR; Start at 14:00 Polyethylene Glycol (Miralax) 17 gm DAILY PO Last administered on 07/08/17 08: 27; Admin Dose 17 GM; Start 07/06/17 at 09:00 Collagenase (Santyl) 1 applic DAILY TOP Last administered on 07/10/17 10:04; Admin Dose 1 APPLIC; Start 07/06/17 at 17:00 Calcium Carbonate (Tums) 500 mg QID PRN PO PRN Last administered on 07/10/17 21:04; Admin Dose 500 MG; Start 07/09/17 at 17:00 Simethicone (Mylicon) 80 mg Q6H PRN PO DISTENSION/GAS/BLOATING Last administered on 07/10/17 21:03; Admin Dose 80 MG; Start 07/10/17 at 05:00 NIKOLAI HAYNES MD Jul 11, 2017 09:55
[2017-07-11] MEDS: MULTIVIT/CA CARB/B CMPLX/FA TAB PO SCH (11:20)
[2017-07-11] MEDS: ALLOPURINOL 100 MG TAB PO SCH (11:22)
[2017-07-11] MEDS: ONDANSETRON 4 MG INJ IV PRN (14:24)
[2017-07-11] MEDS ORDERED: EPOETIN 4000 UNITS/1 ML INJ (ESRD) SC SCH (17:00)
[2017-07-11] MEDS: HYDROCODONE/APAP (7.5/325) TAB PO PRN (17:32)
[2017-07-11] MEDS: ATORVASTATIN 40 MG TAB PO SCH (21:38)
[2017-07-11] MEDS: CLOPIDOGREL 75 MG TAB PO SCH (21:38)
[2017-07-11] MEDS: CALCIUM CARBONATE 500 MG CHEW TAB PO PRN (21:38)
[2017-07-11] MEDS: DOCUSATE SODIUM 100 MG CAP PO PRN (21:38)
[2017-07-11] MEDS: BISACODYL (EC) 5 MG TAB PO PRN (21:39)
[2017-07-11] MEDS: ASPIRIN (EC) 81 MG TAB PO SCH (21:39)
[2017-07-11] MEDS: ZOLPIDEM 5 MG TAB PO PRN (21:39)
[2017-07-12] VITALS (13 sets, daily range): BP systolic 91–134; BP diastolic 42–67; PULSE 85–91; RESP 17–20
[2017-07-12] MEDS: ALBUTEROL/IPRATROPIUM (NEB) 3 ML AMP HHN SCH ×4 (01:58→20:12)
[2017-07-12 06:17] LABS: ABNORMAL IP MESSAGE 1; BASOPHILS % 0.5 % (0.0-2.0); EOSINOPHILS # 0.2 10^3/ul (0.0-0.5); EOSINOPHILS % 1.8 % (0.0-7.0); HEMOGLOBIN 8.1 g/dl (14.0-18.0); LYMPHOCYTES # 1.2 10^3/ul (0.8-2.9); LYMPHOCYTES % 14.8 % (15.0-51.0); MEAN CORPUSCULAR HGB CONC 28.9 g/dl (32.0-37.0); MEAN CORPUSCULAR VOLUME 100.4 fl (82.0-101.0); MEAN PLATELET VOLUME 11.4 fl (7.4-10.4); MONOCYTE # 0.6 10^3/ul (0.3-0.9); MONOCYTES % 7.5 % (0.0-11.0); NEUTROPHILS % 74.3 % (39.0-77.0); PLATELET COUNT 157 10^3/UL (140-415); POSITIVE DIFF @See below; RED BLOOD COUNT 2.79 10^6/ul (4.70-6.10); RED CELL DISTRIBUTION WIDTH 18.2 % (11.5-14.5); WHITE BLOOD COUNT 8.1 10^3/ul (4.8-10.8)
[2017-07-12] MEDS: PIPER-TAZO 2.25 GM (PMX) 50 ML IVPB SCH ×3 (06:28→21:44)
[2017-07-12 06:35] LABS: ALBUMIN/GLOBULIN RATIO 0.88; BILIRUBIN,DIRECT 2.5 mg/dl (0.00-0.20); BILIRUBIN,INDIRECT 0.7 mg/dl (0-1.1); BILIRUBIN,TOTAL 3.2 mg/dl (0.2-1.3); CALCIUM 9.6 mg/dl (8.4-10.2); CREATININE 4.15 mg/dl (0.61-1.24); POTASSIUM 4.1 mmol/L (3.5-5.1); TOTAL PROTEIN 6.4 g/dl (6.1-8.1)
[2017-07-12] MEDS: ALLOPURINOL 100 MG TAB PO SCH (08:50)
[2017-07-12] MEDS: MULTIVIT/CA CARB/B CMPLX/FA TAB PO SCH (08:50)
[2017-07-12] MEDS: ROPINIROLE 0.25 MG TAB PO SCH ×3 (08:50→21:37)
[2017-07-12] MEDS: POLYETHYLENE GLYCOL 17 GM PACKET PO SCH (08:50)
[2017-07-12] MEDS: RANOLAZINE (SR) 500 MG TAB PO SCH ×2 (08:50→21:37)
[2017-07-12] MEDS: COLLAGENASE 30 GM TUBE TOP SCH (08:52)
--- NOTE | 2017-07-12 10:25 | PN ---
Date/Time of Note Date/Time of Note DATE: 07/12/17 TIME: 10:13 Assessment/Plan VTE Prophylaxis VTE Contraindication Reason: bleeding, refusal of treatment by patient VTE Confirmed-Overlap Tx Rcvd Reason for no Overlap Therapy: Contraindicated Lines/Catheters IV Catheter Type (from Nrsg): Peripheral IV Urinary Cath still in place: No Assessment/Plan Problems: (1) CHF (congestive heart failure) Qualifiers: Congestive heart failure type: unspecified congestive heart failure type Congestive heart failure chronicity: acute on chronic Qualified Code: I50.9 - Acute on chronic congestive heart failure, unspecified congestive heart failure type (2) Elevated liver enzymes Comment: improving (3) Cholelithiasis Comment: Dr. Bennett contacted to follow up and consider lap vladimir vs. ercp Assessment/Plan esrd for dialysis thursday Subjective 24 Hr Interval Summary Free Text/Dictation Tired of feeling so weak but more ok with proceeding with interventions if can help. He refused procrit yesterday and discussed importance. No major nausea or abdominal pain and less sob. Exam/Review of Systems Vital Signs Vitals Vital Signs Date Time Temp Pulse Resp B/P Pulse Ox O2 Delivery O2 Flow Rate FiO2 07/12/17 08:25 89 07/12/17 08:11 97.7 18 131/60 100 07/12/17 08:00 Nasal Cannula 07/12/17 07:53 6.0 Intake and Output 07/11/17 07/11/17 07/12/17 15:00 23:00 07:00 Intake Total 300 ml 450 ml 330 ml Output Total 2800 ml 0 ml Balance -2500 ml 450 ml 330 ml Exam Constitutional: alert Psych: depression Respiratory: clear to auscultation Cardiovascular: regular rate and rhythm Gastrointestinal: non-tender, soft Results Result Diagram: 07/12/17 0550 07/12/17 0550 Results 24 hrs Laboratory Tests Test 07/12/17 05:50 White Blood Count 8.1 # Red Blood Count 2.79 L Hemoglobin 8.1 L Hematocrit 28.0 L Mean Corpuscular Volume 100.4 Mean Corpuscular Hemoglobin 29.0 Mean Corpuscular Hemoglobin Concent 28.9 L Red Cell Distribution Width 18.2 H Platelet Count 157 Mean Platelet Volume 11.4 H Neutrophils % 74.3 Lymphocytes % 14.8 L Monocytes % 7.5 Eosinophils % 1.8 Basophils % 0.5 Nucleated Red Blood Cells % 0.0 Neutrophils # 6.0 Lymphocytes # 1.2 Monocytes # 0.6 Eosinophils # 0.2 Basophils # 0.0 Nucleated Red Blood Cells # 0.0 Sodium Level 137 Potassium Level 4.1 Chloride Level 97 Carbon Dioxide Level 30 Anion Gap 14 Blood Urea Nitrogen 27 H Creatinine 4.15 H Glucose Level 73 Calcium Level 9.6 Total Bilirubin 3.2 H Direct Bilirubin 2.50 #H Indirect Bilirubin 0.7 Aspartate Amino Transf (AST/SGOT) 66 H Alanine Aminotransferase (ALT/SGPT) 35 Alkaline Phosphatase 550 H Total Protein 6.4 # Albumin 3.0 L Globulin 3.40 H Albumin/Globulin Ratio 0.88 Medications Medications Current Medications Allopurinol (Zyloprim) 100 mg DAILY PO Last administered on 07/12/17 08:50; Admin Dose 100 MG; Start 07/06/17 at 09:00 Alprazolam (Xanax) 0.25 mg QHS PRN PO ANXIETY; Start 07/05/17 at 09:30 Aspirin (Halfprin) 81 mg QHS PO Last administered on 07/11/17 21:39; Admin Dose 81 MG; Start 07/05/17 at 21:00 Atorvastatin Calcium (Lipitor) 40 mg QHS PO Last administered on 07/11/17 21: 38; Admin Dose 40 MG; Start 07/05/17 at 21:00 Clopidogrel Bisulfate (plaVIX) 75 mg QHS PO Last administered on 07/11/17 21: 38; Admin Dose 75 MG; Start 07/05/17 at 21:00 Docusate Sodium (Colace) 100 mg TID PRN PO CONSTIPATION Last administered on 21:38; Admin Dose 100 MG; Start 07/05/17 at 09:30 Acetaminophen/ Hydrocodone Bitart ([place] (7.5-325)) 1 tab DAILY PRN PO SEVERE PAIN LEVEL 7-10 Last administered on 07/11/17 17:32; Admin Dose 1 TAB; Start at 09:30 Multivit/Ca Carb/ B Cmplx/FA/Prenat (Ig-Evelio) 1 tab DAILY PO Last administered on 07/12/17 08:50; Admin Dose 1 TAB; Start 07/06/17 at 09:00 Pantoprazole (Protonix Tab) 40 mg Q12@06,18 PO Last administered on 07/11/17 17:33; Admin Dose 40 MG; Start 07/05/17 at 18:00 Ranolazine (Ranexa) 500 mg Q12 PO Last administered on 07/12/17 08:50; Admin Dose 500 MG; Start 07/05/17 at 21:00 Ropinirole HCl (Requip) 0.5 mg TID PO Last administered on 07/12/17 08:50; Admin Dose 0.5 MG; Start 07/05/17 at 13:00 Zolpidem Tartrate (Ambien) 7.5 mg QHS PRN PO INSOMNIA Last administered on 07/11 21:39; Admin Dose 7.5 MG; Start 07/05/17 at 09:30 Ondansetron HCl (Zofran Inj) 4 mg Q6H PRN IV NAUSEA AND/OR VOMITING Last administered on 07/11/17 14:24; Admin Dose 4 MG; Start 07/05/17 at 09:30 Nitroglycerin (Nitroglycerin (Sl Tab) 0.4 Mg) 1 tab Q5M PRN SL CHEST PAIN Last administered on 07/09/17 02:21; Admin Dose 1 TAB; Start 07/05/17 at 09:30 Acetaminophen (Tylenol Tab) 650 mg Q6H PRN PO PAIN LEVEL 1-3 OR FEVER; Start at 09:30 Docusate Sodium (Colace) 100 mg Q12H PRN PO CONSTIPATION; Start 07/05/17 at 09: 30 Bisacodyl 5 mg 5 mg DAILY PRN PO CONSTIPATION Last administered on 07/11/17 21 :39; Admin Dose 5 MG; Start 07/05/17 at 09:30 Piperacillin Sod/ Tazobactam Sod (Zosyn 2.25gm/ 50ml (Pmx)) 50 ml @ 100 mls/hr Q8 IVPB Last administered on 07/12/17 06:28; Admin Dose 100 MLS/HR; Start at 14:00 Polyethylene Glycol (Miralax) 17 gm DAILY PO Last administered on 07/12/17 08: 50; Admin Dose 17 GM; Start 07/06/17 at 09:00 Collagenase (Santyl) 1 applic DAILY TOP Last administered on 07/12/17 08:52; Admin Dose 1 APPLIC; Start 07/06/17 at 17:00 Calcium Carbonate (Tums) 500 mg QID PRN PO PRN Last administered on 07/11/17 21:38; Admin Dose 500 MG; Start 07/09/17 at 17:00 Simethicone (Mylicon) 80 mg Q6H PRN PO DISTENSION/GAS/BLOATING Last administered on 07/10/17 21:03; Admin Dose 80 MG; Start 07/10/17 at 05:00 Epoetin Lyle (Epogen (Esrd)) 8,000 units TuTa@17 SC ; Start 07/11/17 at 17:00 NIKOLAI HAYNES MD Jul 12, 2017 10:23
[2017-07-12] MEDS: SEVELAMER 800 MG TAB PO SCH ×2 (11:50→17:55)
[2017-07-12] MEDS: HYDROCODONE/APAP (7.5/325) TAB PO PRN (14:19)
[2017-07-12] MEDS: PANTOPRAZOLE (EC) 40 MG TAB PO SCH (18:00)
[2017-07-12] MEDS: CLOPIDOGREL 75 MG TAB PO SCH (21:37)
[2017-07-12] MEDS: ASPIRIN (EC) 81 MG TAB PO SCH (21:37)
[2017-07-12] MEDS: ATORVASTATIN 40 MG TAB PO SCH (21:37)
[2017-07-12] MEDS: ZOLPIDEM 5 MG TAB PO PRN (21:44)
[2017-07-12] MEDS: BISACODYL (EC) 5 MG TAB PO PRN (21:44)
[2017-07-12] MEDS: DOCUSATE SODIUM 100 MG CAP PO PRN (21:44)
[2017-07-13] VITALS (17 sets, daily range): BP systolic 101–140; BP diastolic 53–72; PULSE 80–96; RESP 18–20
[2017-07-13] MEDS: ALBUTEROL/IPRATROPIUM (NEB) 3 ML AMP HHN SCH ×5 (01:41→20:02)
[2017-07-13] MEDS: PIPER-TAZO 2.25 GM (PMX) 50 ML IVPB SCH ×3 (05:18→21:10)
[2017-07-13] MEDS: PANTOPRAZOLE (EC) 40 MG TAB PO SCH ×2 (05:18→18:00)
[2017-07-13 07:34] LABS: BILIRUBIN,DIRECT 2.3 mg/dl (0.00-0.20); BILIRUBIN,INDIRECT 0.6 mg/dl (0-1.1); BILIRUBIN,TOTAL 2.9 mg/dl (0.2-1.3); TOTAL PROTEIN 6.3 g/dl (6.1-8.1)
--- NOTE | 2017-07-13 08:25 | CONS ---
Date/Time of Note Date/Time of Note DATE: 07/13/17 TIME: 08:21 Assessment/Plan Assessment/Plan Problems: (1) HTN (hypertension) Comment: controlled (2) Cough Comment: will get a f/u CXR post dialysis today (3) Pleural effusion Comment: check up on CXR (4) ESRD (end stage renal disease) on dialysis Status: Chronic Comment: for HD today (5) Elevated liver enzymes Comment: sl better...can he erika a lap vladimir? (6) Cholelithiasis Comment: on abx... not sure he wants to have surgery... getting mixed messages from him (7) Colon abnormality Comment: noted previously Consultation Date/Type/Reason Admit Date/Time Jul 05, 2017 at 08:11 Initial Consult Date 07/05/17 Type of Consultation: Renal Referring Provider: MYRTLE BLAKE MD 24 HR Interval Summary Free Text/Dictation feels about the same.. feels we could be more aggressive in treating him (?).. discussed w him... still not sure what he means Exam/Review of Systems Vital Signs Vitals Vital Signs Date Time Temp Pulse Resp B/P Pulse Ox O2 Delivery O2 Flow Rate FiO2 07/13/17 08:19 98.2 92 20 135/62 99 07/13/17 01:47 10.0 07/13/17 01:43 Simple Mask Intake and Output 07/12/17 07/12/17 07/13/17 15:00 23:00 07:00 Intake Total 450 ml 350 ml Output Total 0 ml 0 ml Balance 450 ml 350 ml Exam Constitutional: alert, oriented Eyes: nl conjunctiva Respiratory: clear to auscultation Cardiovascular: regular rate and rhythm Gastrointestinal: soft Extremities: other (fxn avf) Results Result Diagram: 07/12/17 0550 07/12/17 0550 Results 24 hrs Laboratory Tests Test 07/13/17 06:11 Total Bilirubin 2.9 H Direct Bilirubin 2.30 H Indirect Bilirubin 0.6 Aspartate Amino Transf (AST/SGOT) 70 H Alanine Aminotransferase (ALT/SGPT) 27 Alkaline Phosphatase 513 H Total Protein 6.3 Albumin 3.0 L Medications Medications Current Medications Allopurinol (Zyloprim) 100 mg DAILY PO Last administered on 07/12/17t 08:50; Admin Dose 100 MG; Start 07/06/17 at 09:00 Alprazolam (Xanax) 0.25 mg QHS PRN PO ANXIETY; Start 07/05/17 at 09:30 Aspirin (Halfprin) 81 mg QHS PO Last administered on 07/12/17 21:37; Admin Dose 81 MG; Start 07/05/17 at 21:00 Atorvastatin Calcium (Lipitor) 40 mg QHS PO Last administered on 07/12/17 21: 37; Admin Dose 40 MG; Start 07/05/17 at 21:00 Clopidogrel Bisulfate (plaVIX) 75 mg QHS PO Last administered on 07/12/17 21: 37; Admin Dose 75 MG; Start 07/05/17 at 21:00 Docusate Sodium (Colace) 100 mg TID PRN PO CONSTIPATION Last administered on 21:44; Admin Dose 100 MG; Start 07/05/17 at 09:30 Acetaminophen/ Hydrocodone Bitart ([place] (7.5-325)) 1 tab DAILY PRN PO SEVERE PAIN LEVEL 7-10 Last administered on 07/12/17 14:19; Admin Dose 1 TAB; Start at 09:30 Multivit/Ca Carb/ B Cmplx/FA/Prenat (Gi-Evelio) 1 tab DAILY PO Last administered on 07/12/17 08:50; Admin Dose 1 TAB; Start 07/06/17 at 09:00 Pantoprazole (Protonix Tab) 40 mg Q12@06,18 PO Last administered on 07/13/17 05:18; Admin Dose 40 MG; Start 07/05/17 at 18:00 Ranolazine (Ranexa) 500 mg Q12 PO Last administered on 07/12/17 21:37; Admin Dose 500 MG; Start 07/05/17 at 21:00 Ropinirole HCl (Requip) 0.5 mg TID PO Last administered on 07/12/17 21:37; Admin Dose 0.5 MG; Start 07/05/17 at 13:00 Zolpidem Tartrate (Ambien) 7.5 mg QHS PRN PO INSOMNIA Last administered on 07/12 21:44; Admin Dose 7.5 MG; Start 07/05/17 at 09:30 Ondansetron HCl (Zofran Inj) 4 mg Q6H PRN IV NAUSEA AND/OR VOMITING Last administered on 07/11/17 14:24; Admin Dose 4 MG; Start 07/05/17 at 09:30 Nitroglycerin (Nitroglycerin (Sl Tab) 0.4 Mg) 1 tab Q5M PRN SL CHEST PAIN Last administered on 07/09/17 02:21; Admin Dose 1 TAB; Start 07/05/17 at 09:30 Acetaminophen (Tylenol Tab) 650 mg Q6H PRN PO PAIN LEVEL 1-3 OR FEVER; Start at 09:30 Docusate Sodium (Colace) 100 mg Q12H PRN PO CONSTIPATION; Start 07/05/17 at 09: 30 Bisacodyl 5 mg 5 mg DAILY PRN PO CONSTIPATION Last administered on 07/12/17 21 :44; Admin Dose 5 MG; Start 07/05/17 at 09:30 Piperacillin Sod/ Tazobactam Sod (Zosyn 2.25gm/ 50ml (Pmx)) 50 ml @ 100 mls/hr Q8 IVPB Last administered on 07/13/17 05:18; Admin Dose 100 MLS/HR; Start at 14:00 Polyethylene Glycol (Miralax) 17 gm DAILY PO Last administered on 07/12/17 08: 50; Admin Dose 17 GM; Start 07/06/17 at 09:00 Collagenase (Santyl) 1 applic DAILY TOP Last administered on 07/12/17 08:52; Admin Dose 1 APPLIC; Start 07/06/17 at 17:00 Calcium Carbonate (Tums) 500 mg QID PRN PO PRN Last administered on 07/11/17 21:38; Admin Dose 500 MG; Start 07/09/17 at 17:00 Simethicone (Mylicon) 80 mg Q6H PRN PO DISTENSION/GAS/BLOATING Last administered on 07/10/17 21:03; Admin Dose 80 MG; Start 07/10/17 at 05:00 Epoetin Lyle (Epogen (Esrd)) 8,000 units TuThSa@17 SC ; Start 07/11/17 at 17:00 POP BOYCE MD Jul 13, 2017 08:25
[2017-07-13] MEDS: MULTIVIT/CA CARB/B CMPLX/FA TAB PO SCH (08:35)
[2017-07-13] MEDS: SEVELAMER 800 MG TAB PO SCH ×3 (08:35→17:55)
[2017-07-13] MEDS: ROPINIROLE 0.25 MG TAB PO SCH ×3 (08:36→21:11)
[2017-07-13] MEDS: RANOLAZINE (SR) 500 MG TAB PO SCH ×2 (08:36→20:49)
[2017-07-13] MEDS: ALLOPURINOL 100 MG TAB PO SCH (08:36)
[2017-07-13] MEDS: POLYETHYLENE GLYCOL 17 GM PACKET PO SCH (08:37)
[2017-07-13] MEDS: COLLAGENASE 30 GM TUBE TOP SCH (09:00)
[2017-07-13] MEDS ORDERED: ALBUMIN HUMAN 25% 100 ML IV PRN (10:30)
[2017-07-13] MEDS: ALBUMIN HUMAN 25% 100 ML IV PRN (12:03)
--- NOTE | 2017-07-13 12:14 | CONS ---
Date/Time of Note Date/Time of Note DATE: 07/13/17 TIME: 12:09 Consult Date/Type/Reason Admit Date/Time Jul 05, 2017 at 08:11 Initial Consult Date 07/05/17 Type of Consultation: GI Ordering Provider: MYRTLE BLAKE MD Subjective Undergoing dialysis Weak and tired Denies abdominal pain Objective Vital Signs Date Time Temp Pulse Resp B/P Pulse Ox O2 Delivery O2 Flow Rate FiO2 07/13/17 11:14 98.2 89 20 120/59 95 07/13/17 09:54 10.0 07/13/17 09:54 Simple Mask Chest: clear to p and a Cardiac: no m,r,g Abdomen: soft,non tender Intake and Output 07/12/17 07/12/17 07/13/17 15:00 23:00 07:00 Intake Total 450 ml 350 ml Output Total 0 ml 0 ml Balance 450 ml 350 ml Results/Medications Result Diagram: 07/12/17 0550 07/12/17 0550 Results 24 hrs Laboratory Tests Test 07/13/17 06:11 Total Bilirubin 2.9 H Direct Bilirubin 2.30 H Indirect Bilirubin 0.6 Aspartate Amino Transf (AST/SGOT) 70 H Alanine Aminotransferase (ALT/SGPT) 27 Alkaline Phosphatase 513 H Total Protein 6.3 Albumin 3.0 L Medications Current Medications Allopurinol (Zyloprim) 100 mg DAILY PO Last administered on 07/13/17 08:36; Admin Dose 100 MG; Start 07/06/17 at 09:00 Alprazolam (Xanax) 0.25 mg QHS PRN PO ANXIETY; Start 07/05/17 at 09:30 Aspirin (Halfprin) 81 mg QHS PO Last administered on 07/12/17 21:37; Admin Dose 81 MG; Start 07/05/17 at 21:00 Atorvastatin Calcium (Lipitor) 40 mg QHS PO Last administered on 07/12/17 21: 37; Admin Dose 40 MG; Start 07/05/17 at 21:00 Clopidogrel Bisulfate (plaVIX) 75 mg QHS PO Last administered on 07/12/17 21: 37; Admin Dose 75 MG; Start 07/05/17 at 21:00 Docusate Sodium (Colace) 100 mg TID PRN PO CONSTIPATION Last administered on 21:44; Admin Dose 100 MG; Start 07/05/17 at 09:30 Acetaminophen/ Hydrocodone Bitart ([place] (7.5-325)) 1 tab DAILY PRN PO SEVERE PAIN LEVEL 7-10 Last administered on 07/12/17 14:19; Admin Dose 1 TAB; Start at 09:30 Multivit/Ca Carb/ B Cmplx/FA/Prenat (Gi-Evelio) 1 tab DAILY PO Last administered on 07/13/17 08:35; Admin Dose 1 TAB; Start 07/06/17 at 09:00 Pantoprazole (Protonix Tab) 40 mg Q12@06,18 PO Last administered on 07/13/17 05:18; Admin Dose 40 MG; Start 07/05/17 at 18:00 Ranolazine (Ranexa) 500 mg Q12 PO Last administered on 07/13/17 08:36; Admin Dose 500 MG; Start 07/05/17 at 21:00 Ropinirole HCl (Requip) 0.5 mg TID PO Last administered on 07/13/17 08:36; Admin Dose 0.5 MG; Start 07/05/17 at 13:00 Zolpidem Tartrate (Ambien) 7.5 mg QHS PRN PO INSOMNIA Last administered on 07/12 21:44; Admin Dose 7.5 MG; Start 07/05/17 at 09:30 Ondansetron HCl (Zofran Inj) 4 mg Q6H PRN IV NAUSEA AND/OR VOMITING Last administered on 07/11/17 14:24; Admin Dose 4 MG; Start 07/05/17 at 09:30 Nitroglycerin (Nitroglycerin (Sl Tab) 0.4 Mg) 1 tab Q5M PRN SL CHEST PAIN Last administered on 07/09/17 02:21; Admin Dose 1 TAB; Start 07/05/17 at 09:30 Acetaminophen (Tylenol Tab) 650 mg Q6H PRN PO PAIN LEVEL 1-3 OR FEVER; Start at 09:30 Docusate Sodium (Colace) 100 mg Q12H PRN PO CONSTIPATION; Start 07/05/17 at 09: 30 Bisacodyl 5 mg 5 mg DAILY PRN PO CONSTIPATION Last administered on 07/12/17 21 :44; Admin Dose 5 MG; Start 07/05/17 at 09:30 Piperacillin Sod/ Tazobactam Sod (Zosyn 2.25gm/ 50ml (Pmx)) 50 ml @ 100 mls/hr Q8 IVPB Last administered on 07/13/17 05:18; Admin Dose 100 MLS/HR; Start at 14:00 Polyethylene Glycol (Miralax) 17 gm DAILY PO Last administered on 07/13/17 08: 37; Admin Dose 17 GM; Start 07/06/17 at 09:00 Collagenase (Santyl) 1 applic DAILY TOP Last administered on 07/12/17 08:52; Admin Dose 1 APPLIC; Start 07/06/17 at 17:00 Calcium Carbonate (Tums) 500 mg QID PRN PO PRN Last administered on 07/11/17 21:38; Admin Dose 500 MG; Start 07/09/17 at 17:00 Simethicone (Mylicon) 80 mg Q6H PRN PO DISTENSION/GAS/BLOATING Last administered on 07/10/17 21:03; Admin Dose 80 MG; Start 07/10/17 at 05:00 Epoetin Lyle (Epogen (Esrd)) 8,000 units TuThSa@17 SC ; Start 07/11/17 at 17:00 Assessment/Plan Chief Complaint/Hosp Course Impression: 1. Cholecystitis - based on non visualized GB on HIDA 2. Abnormality of Transverse Colon on CT 3. Cholestatic LFTs - gradual improvement Plan: 1. Continue antibiotic and fluid management per Dr. Johnson 2. Follow lfts - reordered for am 3. If patient does not proceed with hospice would consider colonoscopy and possibly cholecystectomy with intraoperative cholangiogram 4. Will discuss with 5. Await cardiology assessment of risk of colonoscopy and cholecystectomy Problems: SOBIA SALINAS MD Jul 13, 2017 12:14
--- NOTE | 2017-07-13 15:32 | RADRPT ---
PROCEDURE: XR Chest. CLINICAL INDICATION: Shortness of breath. TECHNIQUE: Single frontal view. COMPARISON: 07/07/2017. FINDINGS: There is mild right basilar atelectasis. There is left mid and lower lung zone atelectasis or pneumo nancy. The lungs are otherwise clear. The heart is mildly enlarged. There is a right-sided biventricular pacemaker/internal cardiac defibr illator. A stent is present in the right axillary region. Calcification is present in the aorta cons istent with atherosclerosis. There is a small right pleural effusion and moderate left pleural effusion. There is no pneumothorax. IMPRESSION: 1. Improved appearance of the left lung. 2. No other change from 07/07/2017. RPTAT: QQ .Lazaro Zavaleta MD, MD Date Time Electronically viewed and signed by .Lazaro Zavaleta MD, on 07/13/2017 15:32 .R/
[2017-07-13] MEDS: ASPIRIN (EC) 81 MG TAB PO SCH (20:49)
[2017-07-13] MEDS: CLOPIDOGREL 75 MG TAB PO SCH (20:49)
[2017-07-13] MEDS: ATORVASTATIN 40 MG TAB PO SCH (20:49)
[2017-07-13] MEDS: BISACODYL (EC) 5 MG TAB PO PRN (20:55)
[2017-07-13] MEDS: ZOLPIDEM 5 MG TAB PO PRN (20:56)
[2017-07-13] MEDS: DOCUSATE SODIUM 100 MG CAP PO PRN (20:56)
--- NOTE | 2017-07-13 23:31 | CONS ---
Date/Time of Note Date/Time of Note DATE: 07/13/17 TIME: 23:22 Assessment/Plan Assessment/Plan Chief Complaint/Hosp Course ASSESSMENT: 1. Sepsis- resolved, likely 2/2 acute cholecystitis, hida abnl on abx bcx neg to date. low likelihood of endocarditis 2. Chest pain- low level trop leak, but also could be demand given tachy/sepsis picture. pt declines any further invasive evaluation, cont med mgmt. 3. WCT- likely sinus tachy with [place] LBBB, no e/o sig arrhythmia. ICD in place 4. ICM- LVEF 30-35%, s/p BiV ICD, chronic NYHA III on home o2 5. Acute on Chronic diastolic+systolic heart failure - fluid mgmt with iHD. recurrent L pleural effusion, improving on ccxr 6 Chronic renal failure on dialysis failed to prior transplants per history. 7. Hyperlipidemia. 8. CAD- s/p many previous PCI. known [employer] ostial LCx with L/R-L collaterals. [employer] branch of D1 with l-l collaterals . patent lad/Diag stents. distal RCA disease s/p PCI 11/2016 9. colonic mass on ct scan - pt declines further evaluation per my discussion Impression: - con asa 81mg daily - cont plavix 75 mg daily - pt intolerant of bb/nitrate previously - cont statin - cont dialysis per renal - unable to obtain MRI given BiV[facility]ICD placed at [facility] recently, this is a biotronik device and is not MRI compatible - patient is high cardiac risk for any procedure given recent cardiac events and cardiomyopathy. however endoscopy is very low risk procedure, if pt agreeable would be ok to proceed without further cardiac workup. If possible, would cont statin in periop period and at least asa low dose in perioperative period to minimize cardiac risk. - pt considering home hospice, all questions answered from cardiology perspective. case d/w Dr. Johnson as well Problems: Consultation Date/Type/Reason Admit Date/Time Jul 05, 2017 at 08:11 Initial Consult Date 07/05/17 Type of Consultation: cardiology Referring Provider: MYRTLE BLAKE MD 24 HR Interval Summary Free Text/Dictation saw pt this afternoon. I summarized current medical status with him and his . He clearly states he does not want any further procedures, his goal is to go home with adequate nursing care and avoid any further escalation with medical care. is upset, states she feels she can not provide adequate support for patient at home. pt otherwise reports cont baseline sob, no chest pain. no pnd, orthopnea. remains on facemask o2 Detailed Summary Respiratory: shortness of breath Cardiovascular: no complaints Gastrointestinal: no complaints Genitourinary: no complaints Exam/Review of Systems Vital Signs Vitals Vital Signs Date Time Temp Pulse Resp B/P Pulse Ox O2 Delivery O2 Flow Rate FiO2 07/13/17 20:02 100 10.0 07/13/17 20:02 85 20 Simple Mask 07/13/17 19:35 98.1 118/58 Intake and Output 07/12/17 07/12/17 07/13/17 15:00 23:00 07:00 Intake Total 450 ml 350 ml Output Total 0 ml 0 ml Balance 450 ml 350 ml Exam Constitutional: alert, oriented Psych: normal mood Head: normocephalic Eyes: nl conjunctiva ENMT: nl external ears & nose Neck: jvd, supple Respiratory: mild decreased bs L side Cardiovascular: regular rate and rhythm, ii/vi broderick rusb. No edema Gastrointestinal: soft, no ttp Ext: L fistula + thrill Results Result Diagram: 07/12/17 0550 07/12/17 0550 Results 24 hrs Laboratory Tests Test 07/13/17 06:11 Total Bilirubin 2.9 H Direct Bilirubin 2.30 H Indirect Bilirubin 0.6 Aspartate Amino Transf (AST/SGOT) 70 H Alanine Aminotransferase (ALT/SGPT) 27 Alkaline Phosphatase 513 H Total Protein 6.3 Albumin 3.0 L Imaging Free Text/Dictation cxr report reviewed Medications Medications Current Medications Allopurinol (Zyloprim) 100 mg DAILY PO Last administered on 07/13/17 08:36; Admin Dose 100 MG; Start 07/06/17 at 09:00 Alprazolam (Xanax) 0.25 mg QHS PRN PO ANXIETY; Start 07/05/17 at 09:30 Aspirin (Halfprin) 81 mg QHS PO Last administered on 07/13/17 20:49; Admin Dose 81 MG; Start 07/05/17 at 21:00 Atorvastatin Calcium (Lipitor) 40 mg QHS PO Last administered on 07/13/17 20: 49; Admin Dose 40 MG; Start 07/05/17 at 21:00 Clopidogrel Bisulfate (plaVIX) 75 mg QHS PO Last administered on 07/13/17 20: 49; Admin Dose 75 MG; Start 07/05/17 at 21:00 Docusate Sodium (Colace) 100 mg TID PRN PO CONSTIPATION Last administered on 20:56; Admin Dose 100 MG; Start 07/05/17 at 09:30 Acetaminophen/ Hydrocodone Bitart ([place] (7.5-325)) 1 tab DAILY PRN PO SEVERE PAIN LEVEL 7-10 Last administered on 07/12/17 14:19; Admin Dose 1 TAB; Start at 09:30 Multivit/Ca Carb/ B Cmplx/FA/Prenat (Gi-Evelio) 1 tab DAILY PO Last administered on 07/13/17 08:35; Admin Dose 1 TAB; Start 07/06/17 at 09:00 Pantoprazole (Protonix Tab) 40 mg Q12@06,18 PO Last administered on 07/13/17 05:18; Admin Dose 40 MG; Start 07/05/17 at 18:00 Ranolazine (Ranexa) 500 mg Q12 PO Last administered on 07/13/17 20:49; Admin Dose 500 MG; Start 07/05/17 at 21:00 Ropinirole HCl (Requip) 0.5 mg TID PO Last administered on 07/13/17 21:11; Admin Dose 0.5 MG; Start 07/05/17 at 13:00 Zolpidem Tartrate (Ambien) 7.5 mg QHS PRN PO INSOMNIA Last administered on 07/13 20:56; Admin Dose 7.5 MG; Start 07/05/17 at 09:30 Ondansetron HCl (Zofran Inj) 4 mg Q6H PRN IV NAUSEA AND/OR VOMITING Last administered on 07/11/17 14:24; Admin Dose 4 MG; Start 07/05/17 at 09:30 Nitroglycerin (Nitroglycerin (Sl Tab) 0.4 Mg) 1 tab Q5M PRN SL CHEST PAIN Last administered on 07/09/17 02:21; Admin Dose 1 TAB; Start 07/05/17 at 09:30 Acetaminophen (Tylenol Tab) 650 mg Q6H PRN PO PAIN LEVEL 1-3 OR FEVER; Start at 09:30 Docusate Sodium (Colace) 100 mg Q12H PRN PO CONSTIPATION; Start 07/05/17 at 09: 30 Bisacodyl 5 mg 5 mg DAILY PRN PO CONSTIPATION Last administered on 07/13/17 20 :55; Admin Dose 5 MG; Start 07/05/17 at 09:30 Piperacillin Sod/ Tazobactam Sod (Zosyn 2.25gm/ 50ml (Pmx)) 50 ml @ 100 mls/hr Q8 IVPB Last administered on 07/13/17 21:10; Admin Dose 100 MLS/HR; Start at 14:00 Polyethylene Glycol (Miralax) 17 gm DAILY PO Last administered on 07/13/17 08: 37; Admin Dose 17 GM; Start 07/06/17 at 09:00 Collagenase (Santyl) 1 applic DAILY TOP Last administered on 07/12/17 08:52; Admin Dose 1 APPLIC; Start 07/06/17 at 17:00 Calcium Carbonate (Tums) 500 mg QID PRN PO PRN Last administered on 07/11/17 21:38; Admin Dose 500 MG; Start 07/09/17 at 17:00 Simethicone (Mylicon) 80 mg Q6H PRN PO DISTENSION/GAS/BLOATING Last administered on 07/10/17 21:03; Admin Dose 80 MG; Start 07/10/17 at 05:00 Epoetin Lyle (Epogen (Esrd)) 8,000 units TuThSa@17 SC ; Start 07/11/17 at 17:00 SUSANA VASQUEZ Jul 13, 2017 23:31
[2017-07-14] VITALS (13 sets, daily range): BP systolic 109–137; BP diastolic 47–62; PULSE 80–95; RESP 18–19
[2017-07-14] MEDS: ALBUTEROL/IPRATROPIUM (NEB) 3 ML AMP HHN SCH ×4 (01:57→19:51)
[2017-07-14] MEDS: PIPER-TAZO 2.25 GM (PMX) 50 ML IVPB SCH ×3 (05:19→21:07)
[2017-07-14] MEDS: PANTOPRAZOLE (EC) 40 MG TAB PO SCH ×2 (05:23→17:43)
[2017-07-14 06:05] LABS: BASOPHILS % 0.4 % (0.0-2.0); EOSINOPHILS # 0.1 10^3/ul (0.0-0.5); EOSINOPHILS % 1.1 % (0.0-7.0); HEMATOCRIT 26.5 % (42.0-52.0); HEMOGLOBIN 7.8 g/dl (14.0-18.0); LYMPHOCYTES # 1.1 10^3/ul (0.8-2.9); LYMPHOCYTES % 12.7 % (15.0-51.0); MEAN CORPUSCULAR HGB CONC 29.4 g/dl (32.0-37.0); MEAN CORPUSCULAR VOLUME 101.9 fl (82.0-101.0); MEAN PLATELET VOLUME 11.3 fl (7.4-10.4); MONOCYTE # 0.7 10^3/ul (0.3-0.9); MONOCYTES % 8.9 % (0.0-11.0); NEUTROPHIL # 6.2 10^3/ul (1.6-7.5); NEUTROPHILS % 75.7 % (39.0-77.0); PLATELET COUNT 167 10^3/UL (140-415); RED CELL DISTRIBUTION WIDTH 17.9 % (11.5-14.5); WHITE BLOOD COUNT 8.2 10^3/ul (4.8-10.8)
[2017-07-14 07:01] LABS: ALBUMIN 3.4 g/dl (3.3-4.9); BILIRUBIN,DIRECT 2.1 mg/dl (0.00-0.20); BILIRUBIN,INDIRECT 0.9 mg/dl (0-1.1); TOTAL PROTEIN 6.8 g/dl (6.1-8.1)
[2017-07-14 07:03] LABS: INR 1.75; PROTIME 20.6 Sec (12.2-14.2); PT RATIO 1.6
[2017-07-14 07:09] LABS: ALBUMIN 3.6 g/dl (3.3-4.9); ALBUMIN/GLOBULIN RATIO 1.09; BILIRUBIN,DIRECT 2.1 mg/dl (0.00-0.20); BILIRUBIN,INDIRECT 0.9 mg/dl (0-1.1); CALCIUM 9.9 mg/dl (8.4-10.2); CREATININE 4.4 mg/dl (0.61-1.24); POTASSIUM 3.9 mmol/L (3.5-5.1); TOTAL PROTEIN 6.9 g/dl (6.1-8.1)
[2017-07-14 07:12] LABS: IRON 26 ug/dl (35-150)
[2017-07-14 07:21] LABS: TOTAL IRON BINDING CAPACITY 115 ug/dl (241-421)
[2017-07-14] MEDS: SEVELAMER 800 MG TAB PO SCH ×4 (07:55→17:42)
--- NOTE | 2017-07-14 08:21 | CONS ---
Date/Time of Note Date/Time of Note DATE: 07/14/17 TIME: 08:15 Assessment/Plan Assessment/Plan Problems: (1) Arteriosclerotic heart disease (ASHD) Comment: w ischemic CM... notes as outlined by Dr Perez (2) HTN (hypertension) Comment: controlled (3) Debility Comment: main issue... addressed in detail (4) Pleural effusion Comment: not want L thoracentesis (5) ESRD (end stage renal disease) on dialysis Status: Chronic Comment: for HD in am... will give PRBC's... will increase IV Fe (6) Cholelithiasis Comment: not want operation... persists with elevated LFTs... on Zosyn (7) Colon abnormality Comment: not want colonoscopy Consultation Date/Type/Reason Admit Date/Time Jul 05, 2017 at 08:11 Initial Consult Date 07/05/17 Type of Consultation: renal Referring Provider: MYRTLE BLAKE MD 24 HR Interval Summary Free Text/Dictation Again had a long aydee discussion with him... he wants to go home, but realizes his cannot take care of him there... he does not want SNF... Ideally, home w help/support would be ideal, but I told him Social Service working on that, and I do not know if that is possible. He does NOT want anything invasive done... not want Lap vladimir, Thoracentesis, or Colonoscopy Does want to continue with dialysis... just wants to feel a bit better... i told him we are trying to do that, but his multitude of medical issues makes that goal a difficult one. Exam/Review of Systems Vital Signs Vitals Vital Signs Date Time Temp Pulse Resp B/P Pulse Ox O2 Delivery O2 Flow Rate FiO2 07/14/17 07:23 98.1 87 19 117/47 98 07/14/17 01:57 10.0 07/14/17 01:57 Simple Mask Intake and Output 07/13/17 07/13/17 07/14/17 15:00 23:00 07:00 Intake Total 500 ml 120 ml 120 ml Output Total 2500 ml 0 ml Balance -2000 ml 120 ml 120 ml Exam Constitutional: alert, oriented Head: normocephalic Eyes: nl conjunctiva Neck: supple Respiratory: clear to auscultation Cardiovascular: regular rate and rhythm Gastrointestinal: nl liver, spleen, soft Extremities: other (fxn AVF LUE) Results Result Diagram: 07/14/17 0531 07/14/17 0531 Results 24 hrs Laboratory Tests Test 07/14/17 05:31 White Blood Count 8.2 Red Blood Count 2.60 L Hemoglobin 7.8 L Hematocrit 26.5 L Mean Corpuscular Volume 101.9 H Mean Corpuscular Hemoglobin 30.0 Mean Corpuscular Hemoglobin Concent 29.4 L Red Cell Distribution Width 17.9 H Platelet Count 167 Mean Platelet Volume 11.3 H Neutrophils % 75.7 Lymphocytes % 12.7 L Monocytes % 8.9 Eosinophils % 1.1 Basophils % 0.4 Nucleated Red Blood Cells % 0.0 Neutrophils # 6.2 Lymphocytes # 1.1 Monocytes # 0.7 Eosinophils # 0.1 Basophils # 0.0 Nucleated Red Blood Cells # 0.0 Prothrombin Time 20.6 #H Prothrombin Time Ratio 1.6 INR International Normalized Ratio 1.75 Sodium Level 138 Potassium Level 3.9 Chloride Level 100 Carbon Dioxide Level 23 Anion Gap 19 H Blood Urea Nitrogen 27 H Creatinine 4.40 H Glucose Level 82 Calcium Level 9.9 Iron Level 26 L Total Iron Binding Capacity 115 L Percent Iron Saturation 23 Total Bilirubin 3.0 H Direct Bilirubin 2.10 H Indirect Bilirubin 0.9 Aspartate Amino Transf (AST/SGOT) 44 Alanine Aminotransferase (ALT/SGPT) 31 Alkaline Phosphatase 484 H Total Protein 6.9 Albumin 3.6 Globulin 3.30 H Albumin/Globulin Ratio 1.09 Medications Medications Current Medications Allopurinol (Zyloprim) 100 mg DAILY PO Last administered on 07/13/17 08:36; Admin Dose 100 MG; Start 07/06/17 at 09:00 Alprazolam (Xanax) 0.25 mg QHS PRN PO ANXIETY; Start 07/05/17 at 09:30 Aspirin (Halfprin) 81 mg QHS PO Last administered on 07/13/17 20:49; Admin Dose 81 MG; Start 07/05/17 at 21:00 Atorvastatin Calcium (Lipitor) 40 mg QHS PO Last administered on 07/13/17 20: 49; Admin Dose 40 MG; Start 07/05/17 at 21:00 Clopidogrel Bisulfate (plaVIX) 75 mg QHS PO Last administered on 07/13/17 20: 49; Admin Dose 75 MG; Start 07/05/17 at 21:00 Docusate Sodium (Colace) 100 mg TID PRN PO CONSTIPATION Last administered on 20:56; Admin Dose 100 MG; Start 07/05/17 at 09:30 Acetaminophen/ Hydrocodone Bitart ([place] (7.5-325)) 1 tab DAILY PRN PO SEVERE PAIN LEVEL 7-10 Last administered on 07/12/17 14:19; Admin Dose 1 TAB; Start at 09:30 Multivit/Ca Carb/ B Cmplx/FA/Prenat (Gi-Evelio) 1 tab DAILY PO Last administered on 07/13/17 08:35; Admin Dose 1 TAB; Start 07/06/17 at 09:00 Pantoprazole (Protonix Tab) 40 mg Q12@06,18 PO Last administered on 07/14/17 05:23; Admin Dose 40 MG; Start 07/05/17 at 18:00 Ranolazine (Ranexa) 500 mg Q12 PO Last administered on 07/13/17 20:49; Admin Dose 500 MG; Start 07/05/17 at 21:00 Ropinirole HCl (Requip) 0.5 mg TID PO Last administered on 07/13/17 21:11; Admin Dose 0.5 MG; Start 07/05/17 at 13:00 Zolpidem Tartrate (Ambien) 7.5 mg QHS PRN PO INSOMNIA Last administered on 07/13 20:56; Admin Dose 7.5 MG; Start 07/05/17 at 09:30 Ondansetron HCl (Zofran Inj) 4 mg Q6H PRN IV NAUSEA AND/OR VOMITING Last administered on 07/11/17 14:24; Admin Dose 4 MG; Start 07/05/17 at 09:30 Nitroglycerin (Nitroglycerin (Sl Tab) 0.4 Mg) 1 tab Q5M PRN SL CHEST PAIN Last administered on 07/09/17 02:21; Admin Dose 1 TAB; Start 07/05/17 at 09:30 Acetaminophen (Tylenol Tab) 650 mg Q6H PRN PO PAIN LEVEL 1-3 OR FEVER; Start at 09:30 Docusate Sodium (Colace) 100 mg Q12H PRN PO CONSTIPATION; Start 07/05/17 at 09: 30 Bisacodyl 5 mg 5 mg DAILY PRN PO CONSTIPATION Last administered on 07/13/17 20 :55; Admin Dose 5 MG; Start 07/05/17 at 09:30 Piperacillin Sod/ Tazobactam Sod (Zosyn 2.25gm/ 50ml (Pmx)) 50 ml @ 100 mls/hr Q8 IVPB Last administered on 07/14/17 05:19; Admin Dose 100 MLS/HR; Start at 14:00 Polyethylene Glycol (Miralax) 17 gm DAILY PO Last administered on 07/13/17 08: 37; Admin Dose 17 GM; Start 07/06/17 at 09:00 Collagenase (Santyl) 1 applic DAILY TOP Last administered on 07/12/17 08:52; Admin Dose 1 APPLIC; Start 07/06/17 at 17:00 Calcium Carbonate (Tums) 500 mg QID PRN PO PRN Last administered on 07/11/17 21:38; Admin Dose 500 MG; Start 07/09/17 at 17:00 Simethicone (Mylicon) 80 mg Q6H PRN PO DISTENSION/GAS/BLOATING Last administered on 07/10/17 21:03; Admin Dose 80 MG; Start 07/10/17 at 05:00 Epoetin Lyle (Epogen (Esrd)) 8,000 units TuThSa@17 SC ; Start 07/11/17 at 17:00 POP BOYEC MD Jul 14, 2017 08:21
[2017-07-14] MEDS: MULTIVIT/CA CARB/B CMPLX/FA TAB PO SCH ×2 (09:00→09:17)
[2017-07-14] MEDS: ALLOPURINOL 100 MG TAB PO SCH ×2 (09:00→09:17)
[2017-07-14] MEDS: RANOLAZINE (SR) 500 MG TAB PO SCH ×3 (09:00→20:53)
[2017-07-14] MEDS: POLYETHYLENE GLYCOL 17 GM PACKET PO SCH ×2 (09:00→09:16)
[2017-07-14] MEDS: COLLAGENASE 30 GM TUBE TOP SCH (09:17)
[2017-07-14] MEDS: ROPINIROLE 0.25 MG TAB PO SCH ×3 (09:17→20:53)
[2017-07-14] MEDS: DOCUSATE SODIUM 100 MG CAP PO PRN ×2 (13:21→20:54)
[2017-07-14] MEDS: BISACODYL (EC) 5 MG TAB PO PRN ×2 (13:21→20:54)
--- NOTE | 2017-07-14 13:26 | CONS ---
Date/Time of Note Date/Time of Note DATE: 07/14/17 TIME: 13:24 Consult Date/Type/Reason Admit Date/Time Jul 05, 2017 at 08:11 Initial Consult Date 07/05/17 Type of Consultation: GI Ordering Provider: MYRTLE BLAKE MD Subjective Comments of Dr Johnson noted about refusing colonoscopy or cholecystectomy Denies abdominal pain Objective Vital Signs Date Time Temp Pulse Resp B/P Pulse Ox O2 Delivery O2 Flow Rate FiO2 07/14/17 12:47 79 18 100 Simple Mask 8.0 07/14/17 11:19 98.2 137/56 Abdomen: soft, non tender Intake and Output 07/13/17 07/13/17 07/14/17 15:00 23:00 07:00 Intake Total 500 ml 120 ml 120 ml Output Total 2500 ml 0 ml Balance -2000 ml 120 ml 120 ml Results/Medications Result Diagram: 07/14/17 0531 07/14/17 0531 Results 24 hrs Laboratory Tests Test 07/14/17 05:31 White Blood Count 8.2 Red Blood Count 2.60 L Hemoglobin 7.8 L Hematocrit 26.5 L Mean Corpuscular Volume 101.9 H Mean Corpuscular Hemoglobin 30.0 Mean Corpuscular Hemoglobin Concent 29.4 L Red Cell Distribution Width 17.9 H Platelet Count 167 Mean Platelet Volume 11.3 H Neutrophils % 75.7 Lymphocytes % 12.7 L Monocytes % 8.9 Eosinophils % 1.1 Basophils % 0.4 Nucleated Red Blood Cells % 0.0 Neutrophils # 6.2 Lymphocytes # 1.1 Monocytes # 0.7 Eosinophils # 0.1 Basophils # 0.0 Nucleated Red Blood Cells # 0.0 Prothrombin Time 20.6 #H Prothrombin Time Ratio 1.6 INR International Normalized Ratio 1.75 Sodium Level 138 Potassium Level 3.9 Chloride Level 100 Carbon Dioxide Level 23 Anion Gap 19 H Blood Urea Nitrogen 27 H Creatinine 4.40 H Glucose Level 82 Calcium Level 9.9 Iron Level 26 L Total Iron Binding Capacity 115 L Percent Iron Saturation 23 Ferritin 1610.0 H Total Bilirubin 3.0 H Direct Bilirubin 2.10 H Indirect Bilirubin 0.9 Aspartate Amino Transf (AST/SGOT) 44 Alanine Aminotransferase (ALT/SGPT) 31 Alkaline Phosphatase 484 H Total Protein 6.9 Albumin 3.6 Globulin 3.30 H Albumin/Globulin Ratio 1.09 Medications Current Medications Allopurinol (Zyloprim) 100 mg DAILY PO Last administered on 07/13/17 08:36; Admin Dose 100 MG; Start 07/06/17 at 09:00 Alprazolam (Xanax) 0.25 mg QHS PRN PO ANXIETY; Start 07/05/17 at 09:30 Aspirin (Halfprin) 81 mg QHS PO Last administered on 07/13/17 20:49; Admin Dose 81 MG; Start 07/05/17 at 21:00 Atorvastatin Calcium (Lipitor) 40 mg QHS PO Last administered on 07/13/17 20: 49; Admin Dose 40 MG; Start 07/05/17 at 21:00 Clopidogrel Bisulfate (plaVIX) 75 mg QHS PO Last administered on 07/13/17 20: 49; Admin Dose 75 MG; Start 07/05/17 at 21:00 Docusate Sodium (Colace) 100 mg TID PRN PO CONSTIPATION Last administered on 13:21; Admin Dose 100 MG; Start 07/05/17 at 09:30 Acetaminophen/ Hydrocodone Bitart ([place] (7.5-325)) 1 tab DAILY PRN PO SEVERE PAIN LEVEL 7-10 Last administered on 07/12/17 14:19; Admin Dose 1 TAB; Start at 09:30 Multivit/Ca Carb/ B Cmplx/FA/Prenat (Gi-Evelio) 1 tab DAILY PO Last administered on 07/13/17 08:35; Admin Dose 1 TAB; Start 07/06/17 at 09:00 Pantoprazole (Protonix Tab) 40 mg Q12@06,18 PO Last administered on 07/14/17 05:23; Admin Dose 40 MG; Start 07/05/17 at 18:00 Ranolazine (Ranexa) 500 mg Q12 PO Last administered on 07/13/17 20:49; Admin Dose 500 MG; Start 07/05/17 at 21:00 Ropinirole HCl (Requip) 0.5 mg TID PO Last administered on 07/14/17 12:41; Admin Dose 0.5 MG; Start 07/05/17 at 13:00 Zolpidem Tartrate (Ambien) 7.5 mg QHS PRN PO INSOMNIA Last administered on 07/13 20:56; Admin Dose 7.5 MG; Start 07/05/17 at 09:30 Ondansetron HCl (Zofran Inj) 4 mg Q6H PRN IV NAUSEA AND/OR VOMITING Last administered on 07/11/17 14:24; Admin Dose 4 MG; Start 07/05/17 at 09:30 Nitroglycerin (Nitroglycerin (Sl Tab) 0.4 Mg) 1 tab Q5M PRN SL CHEST PAIN Last administered on 07/09/17 02:21; Admin Dose 1 TAB; Start 07/05/17 at 09:30 Acetaminophen (Tylenol Tab) 650 mg Q6H PRN PO PAIN LEVEL 1-3 OR FEVER; Start at 09:30 Docusate Sodium (Colace) 100 mg Q12H PRN PO CONSTIPATION; Start 07/05/17 at 09: 30 Bisacodyl 5 mg 5 mg DAILY PRN PO CONSTIPATION Last administered on 07/14/17 13 :21; Admin Dose 5 MG; Start 07/05/17 at 09:30 Piperacillin Sod/ Tazobactam Sod (Zosyn 2.25gm/ 50ml (Pmx)) 50 ml @ 100 mls/hr Q8 IVPB Last administered on 07/14/17 13:03; Admin Dose 100 MLS/HR; Start at 14:00 Polyethylene Glycol (Miralax) 17 gm DAILY PO Last administered on 07/13/17 08: 37; Admin Dose 17 GM; Start 07/06/17 at 09:00 Collagenase (Santyl) 1 applic DAILY TOP Last administered on 07/14/17 09:17; Admin Dose 1 APPLIC; Start 07/06/17 at 17:00 Calcium Carbonate (Tums) 500 mg QID PRN PO PRN Last administered on 07/11/17 21:38; Admin Dose 500 MG; Start 07/09/17 at 17:00 Simethicone (Mylicon) 80 mg Q6H PRN PO DISTENSION/GAS/BLOATING Last administered on 07/10/17 21:03; Admin Dose 80 MG; Start 07/10/17 at 05:00 Epoetin Lyle (Epogen (Esrd)) 8,000 units TuThSa@17 SC ; Start 07/11/17 at 17:00 Assessment/Plan Chief Complaint/Hosp Course Impression: 1. Cholecystitis - based on non visualized GB on HIDA 2. Abnormality of Transverse Colon on CT 3. Cholestatic LFTs - gradual improvement Plan: 1. Continue antibiotic and fluid management per Dr. Johnson/cardiology 2. Follow lfts - reordered for am 3. Will discuss with Problems: SOBIA SALINAS MD Jul 14, 2017 13:26
[2017-07-14] MEDS ORDERED: EPOETIN 10000 UNITS/1 ML INJ (ESRD) SC SCH ×2 (17:00)
[2017-07-14] MEDS: EPOETIN 10000 UNITS/1 ML INJ (ESRD) SC SCH (17:00)
[2017-07-14] MEDS: SOD FERRIC GLUC COMPLX 125 MG in SOD CHLORIDE 0.9% 100 ML IVPB SCH (17:43)
[2017-07-14] MEDS: ZOLPIDEM 5 MG TAB PO PRN (20:53)
[2017-07-14] MEDS: CLOPIDOGREL 75 MG TAB PO SCH (20:53)
[2017-07-14] MEDS: ASPIRIN (EC) 81 MG TAB PO SCH (20:53)
[2017-07-14] MEDS: ATORVASTATIN 40 MG TAB PO SCH (20:54)
[2017-07-15] VITALS (22 sets, daily range): BP systolic 115–144; BP diastolic 49–85; PULSE 63–101; RESP 16–20
[2017-07-15] MEDS: ALBUTEROL/IPRATROPIUM (NEB) 3 ML AMP HHN SCH ×5 (02:22→20:28)
[2017-07-15] MEDS: PIPER-TAZO 2.25 GM (PMX) 50 ML IVPB SCH ×2 (05:50→14:37)
[2017-07-15] MEDS: PANTOPRAZOLE (EC) 40 MG TAB PO SCH ×2 (06:00→17:31)
--- NOTE | 2017-07-15 07:48 | CONS ---
Date/Time of Note Date/Time of Note DATE: 07/15/17 TIME: 07:46 Consult Date/Type/Reason Admit Date/Time Jul 05, 2017 at 08:11 Initial Consult Date 07/05/17 Type of Consultation: GI Ordering Provider: MYRTLE BLAKE MD Subjective Denies abdominal complaints Objective Vital Signs Date Time Temp Pulse Resp B/P Pulse Ox O2 Delivery O2 Flow Rate FiO2 07/15/17 07:32 98.0 88 16 119/57 95 07/15/17 07:11 21 07/15/17 02:22 Simple Mask 8.0 Abdomen: soft, non tender Intake and Output 07/14/17 07/14/17 07/15/17 15:00 23:00 07:00 Intake Total 360 ml 250 ml Balance 360 ml 250 ml Results/Medications Result Diagram: 07/14/17 0531 07/14/17 0531 Medications Current Medications Allopurinol (Zyloprim) 100 mg DAILY PO Last administered on 07/13/17 08:36; Admin Dose 100 MG; Start 07/06/17 at 09:00 Alprazolam (Xanax) 0.25 mg QHS PRN PO ANXIETY; Start 07/05/17 at 09:30 Aspirin (Halfprin) 81 mg QHS PO Last administered on 07/14/17 20:53; Admin Dose 81 MG; Start 07/05/17 at 21:00 Atorvastatin Calcium (Lipitor) 40 mg QHS PO Last administered on 07/14/17 20: 54; Admin Dose 40 MG; Start 07/05/17 at 21:00 Clopidogrel Bisulfate (plaVIX) 75 mg QHS PO Last administered on 07/14/17 20: 53; Admin Dose 75 MG; Start 07/05/17 at 21:00 Docusate Sodium (Colace) 100 mg TID PRN PO CONSTIPATION Last administered on 20:54; Admin Dose 100 MG; Start 07/05/17 at 09:30 Acetaminophen/ Hydrocodone Bitart ([place] (7.5-325)) 1 tab DAILY PRN PO SEVERE PAIN LEVEL 7-10 Last administered on 07/12/17 14:19; Admin Dose 1 TAB; Start at 09:30 Multivit/Ca Carb/ B Cmplx/FA/Prenat (Gi-Evelio) 1 tab DAILY PO Last administered on 07/13/17 08:35; Admin Dose 1 TAB; Start 07/06/17 at 09:00 Pantoprazole (Protonix Tab) 40 mg Q12@06,18 PO Last administered on 07/14/17 05:23; Admin Dose 40 MG; Start 07/05/17 at 18:00 Ranolazine (Ranexa) 500 mg Q12 PO Last administered on 07/14/17 20:53; Admin Dose 500 MG; Start 07/05/17 at 21:00 Ropinirole HCl (Requip) 0.5 mg TID PO Last administered on 07/14/17 20:53; Admin Dose 0.5 MG; Start 07/05/17 at 13:00 Zolpidem Tartrate (Ambien) 7.5 mg QHS PRN PO INSOMNIA Last administered on 07/14 20:53; Admin Dose 7.5 MG; Start 07/05/17 at 09:30 Ondansetron HCl (Zofran Inj) 4 mg Q6H PRN IV NAUSEA AND/OR VOMITING Last administered on 07/11/17 14:24; Admin Dose 4 MG; Start 07/05/17 at 09:30 Nitroglycerin (Nitroglycerin (Sl Tab) 0.4 Mg) 1 tab Q5M PRN SL CHEST PAIN Last administered on 07/09/17 02:21; Admin Dose 1 TAB; Start 07/05/17 at 09:30 Acetaminophen (Tylenol Tab) 650 mg Q6H PRN PO PAIN LEVEL 1-3 OR FEVER; Start at 09:30 Docusate Sodium (Colace) 100 mg Q12H PRN PO CONSTIPATION; Start 07/05/17 at 09: 30 Bisacodyl 5 mg 5 mg DAILY PRN PO CONSTIPATION Last administered on 07/14/17 20 :54; Admin Dose 5 MG; Start 07/05/17 at 09:30 Piperacillin Sod/ Tazobactam Sod (Zosyn 2.25gm/ 50ml (Pmx)) 50 ml @ 100 mls/hr Q8 IVPB Last administered on 07/15/17 05:50; Admin Dose 100 MLS/HR; Start at 14:00 Polyethylene Glycol (Miralax) 17 gm DAILY PO Last administered on 07/13/17 08: 37; Admin Dose 17 GM; Start 07/06/17 at 09:00 Collagenase (Santyl) 1 applic DAILY TOP Last administered on 07/14/17 09:17; Admin Dose 1 APPLIC; Start 07/06/17 at 17:00 Calcium Carbonate (Tums) 500 mg QID PRN PO PRN Last administered on 07/11/17 21:38; Admin Dose 500 MG; Start 07/09/17 at 17:00 Simethicone 80 mg 80 mg Q6H PRN PO DISTENSION/GAS/BLOATING Last administered on 07/10/17 21:03; Admin Dose 80 MG; Start 07/10/17 at 05:00 Ferric Sodium Gluconate Complex/ Sodium Chloride (Ferrlecit/NS) 110 ml @ 100 mls/hr Q24H IVPB Last administered on 07/14/17 17:43; Admin Dose 100 MLS/HR; Start 07/14/17 at 17:00; Stop 07/16/17 at 18:05 Epoetin Lyle (Epogen (Esrd)) 10,000 units TuThSa@17 SC ; Start 07/14/17 at 17:00 Assessment/Plan Chief Complaint/Hosp Course Impression: 1. Cholecystitis - based on non visualized GB on HIDA 2. Abnormality of Transverse Colon on CT 3. Cholestatic LFTs - gradual improvement Plan: 1. Continue antibiotic and fluid management per Dr. Johnson/Cardiology 2. Follow lfts - pending for this am 3. Patient states now he wants more aggressive approach - will discuss with Problems: SOBIA SALINAS MD Jul 15, 2017 07:48
[2017-07-15] MEDS: SEVELAMER 800 MG TAB PO SCH ×3 (07:55→17:31)
[2017-07-15] MEDS: COLLAGENASE 30 GM TUBE TOP SCH (09:00)
[2017-07-15] MEDS: ALLOPURINOL 100 MG TAB PO SCH (09:06)
[2017-07-15] MEDS: MULTIVIT/CA CARB/B CMPLX/FA TAB PO SCH (09:06)
[2017-07-15] MEDS: POLYETHYLENE GLYCOL 17 GM PACKET PO SCH (09:06)
[2017-07-15] MEDS: ROPINIROLE 0.25 MG TAB PO SCH ×3 (09:06→21:04)
[2017-07-15] MEDS: RANOLAZINE (SR) 500 MG TAB PO SCH ×2 (09:06→21:03)
--- NOTE | 2017-07-15 09:52 | PN ---
Date/Time of Note Date/Time of Note DATE: 07/15/17 TIME: 09:44 Assessment/Plan VTE Prophylaxis VTE Prophylaxis Intervention: other Lines/Catheters IV [facility] [place] Urinary Cath still in place: No Assessment/Plan Chief Complaint/Hosp Course 1. End-stage renal disease on maintenance hemodialysis. He has dialysis ordered for today . Discharge planning is in progress . 2. Coronary artery disease with ischemic cardiomyopathy . He is weak and borderline pulmonary function . 3. Sepsis due to acute cholecystitis with elevated liver enzymes. 4. Failed kidney transplant 5. Hyperlipidemia Problems: Subjective 24 Hr Interval Summary Free Text/Dictation He is awake . He feels about the same Weak and SOB . He is due for hemodialysis today . Respiratory: shortness of breath Cardiovascular: no complaints Genitourinary: no complaints Neurologic: no complaints Exam/Review of Systems Vital Signs Vitals Vital Signs Date Time Temp Pulse Resp B/P Pulse Ox O2 Delivery O2 Flow Rate FiO2 07/15/17 09:40 Simple Mask 07/15/17 08:24 85 07/15/17 07:32 98.0 16 119/57 95 07/15/17 07:11 21 07/15/17 02:22 8.0 Intake and Output 07/14/17 07/14/17 07/15/17 15:00 23:00 07:00 Intake Total 360 ml 250 ml Balance 360 ml 250 ml Exam Constitutional: alert, frail, oriented Respiratory: clear to auscultation, normal air movement Cardiovascular: irregular rhythm, murmurs/extra sounds Gastrointestinal: soft Musculoskeletal: nl extremities to inspection Results Result Diagram: 07/14/17 0531 07/14/17 0531 Medications Medications Current Medications Allopurinol (Zyloprim) 100 mg DAILY PO Last administered on 07/15/17 09:06; Admin Dose 100 MG; Start 07/06/17 at 09:00 Alprazolam (Xanax) 0.25 mg QHS PRN PO ANXIETY; Start 07/05/17 at 09:30 Aspirin (Halfprin) 81 mg QHS PO Last administered on 07/14/17 20:53; Admin Dose 81 MG; Start 07/05/17 at 21:00 Atorvastatin Calcium (Lipitor) 40 mg QHS PO Last administered on 07/14/17 20: 54; Admin Dose 40 MG; Start 07/05/17 at 21:00 Clopidogrel Bisulfate (plaVIX) 75 mg QHS PO Last administered on 07/14/17 20: 53; Admin Dose 75 MG; Start 07/05/17 at 21:00 Docusate Sodium (Colace) 100 mg TID PRN PO CONSTIPATION Last administered on 20:54; Admin Dose 100 MG; Start 07/05/17 at 09:30 Acetaminophen/ Hydrocodone Bitart ([place] (7.5-325)) 1 tab DAILY PRN PO SEVERE PAIN LEVEL 7-10 Last administered on 07/12/17 14:19; Admin Dose 1 TAB; Start at 09:30 Multivit/Ca Carb/ B Cmplx/FA/Prenat (Gi-Evelio) 1 tab DAILY PO Last administered on 07/15/17 09:06; Admin Dose 1 TAB; Start 07/06/17 at 09:00 Pantoprazole (Protonix Tab) 40 mg Q12@,18 PO Last administered on 07/14/17 05:23; Admin Dose 40 MG; Start 07/05/17 at 18:00 Ranolazine (Ranexa) 500 mg Q12 PO Last administered on 07/15/17 09:06; Admin Dose 500 MG; Start 07/05/17 at 21:00 Ropinirole HCl (Requip) 0.5 mg TID PO Last administered on 07/15/17 09:06; Admin Dose 0.5 MG; Start 07/05/17 at 13:00 Zolpidem Tartrate (Ambien) 7.5 mg QHS PRN PO INSOMNIA Last administered on 07/14 20:53; Admin Dose 7.5 MG; Start 07/05/17 at 09:30 Ondansetron HCl (Zofran Inj) 4 mg Q6H PRN IV NAUSEA AND/OR VOMITING Last administered on 07/11/17 14:24; Admin Dose 4 MG; Start 07/05/17 at 09:30 Nitroglycerin (Nitroglycerin (Sl Tab) 0.4 Mg) 1 tab Q5M PRN SL CHEST PAIN Last administered on 07/09/17 02:21; Admin Dose 1 TAB; Start 07/05/17 at 09:30 Acetaminophen (Tylenol Tab) 650 mg Q6H PRN PO PAIN LEVEL 1-3 OR FEVER; Start at 09:30 Docusate Sodium (Colace) 100 mg Q12H PRN PO CONSTIPATION; Start 07/05/17 at 09: 30 Bisacodyl 5 mg 5 mg DAILY PRN PO CONSTIPATION Last administered on 07/14/17 20 :54; Admin Dose 5 MG; Start 07/05/17 at 09:30 Piperacillin Sod/ Tazobactam Sod (Zosyn 2.25gm/ 50ml (Pmx)) 50 ml @ 100 mls/hr Q8 IVPB Last administered on 07/15/17 05:50; Admin Dose 100 MLS/HR; Start at 14:00 Polyethylene Glycol (Miralax) 17 gm DAILY PO Last administered on 07/15/17 09: 06; Admin Dose 17 GM; Start 07/06/17 at 09:00 Collagenase (Santyl) 1 applic DAILY TOP Last administered on 07/14/17 09:17; Admin Dose 1 APPLIC; Start 07/06/17 at 17:00 Calcium Carbonate (Tums) 500 mg QID PRN PO PRN Last administered on 07/11/17 21:38; Admin Dose 500 MG; Start 07/09/17 at 17:00 Simethicone 80 mg 80 mg Q6H PRN PO DISTENSION/GAS/BLOATING Last administered on 07/10/17 21:03; Admin Dose 80 MG; Start 07/10/17 at 05:00 Ferric Sodium Gluconate Complex/ Sodium Chloride (Ferrlecit/NS) 110 ml @ 100 mls/hr Q24H IVPB Last administered on 07/14/17 17:43; Admin Dose 100 MLS/HR; Start 07/14/17 at 17:00; Stop 07/16/17 at 18:05 Epoetin Lyle (Epogen (Esrd)) 10,000 units TuThSa@17 SC ; Start 07/14/17 at 17:00 RIMMA WEI MD Jul 15, 2017 09:52
[2017-07-15] MEDS: ALBUMIN HUMAN 25% 100 ML IV PRN (14:45)
[2017-07-15] MEDS: SOD FERRIC GLUC COMPLX 125 MG in SOD CHLORIDE 0.9% 100 ML IVPB SCH (16:01)
[2017-07-15 17:11] LABS: BASOPHILS % 0.2 % (0.0-2.0); EOSINOPHILS # 0.1 10^3/ul (0.0-0.5); EOSINOPHILS % 0.8 % (0.0-7.0); HEMATOCRIT 36.2 % (42.0-52.0); HEMOGLOBIN 11.8 g/dl (14.0-18.0); LYMPHOCYTES % 10.6 % (15.0-51.0); MEAN CORPUSCULAR HEMOGLOBIN 30.3 pg (29.0-33.0); MEAN CORPUSCULAR HGB CONC 32.6 g/dl (32.0-37.0); MEAN CORPUSCULAR VOLUME 92.8 fl (82.0-101.0); MEAN PLATELET VOLUME 10.7 fl (7.4-10.4); MONOCYTE # 0.5 10^3/ul (0.3-0.9); NEUTROPHIL # 7.9 10^3/ul (1.6-7.5); NEUTROPHILS % 82.6 % (39.0-77.0); PLATELET COUNT 181 10^3/UL (140-415); RED CELL DISTRIBUTION WIDTH 18.2 % (11.5-14.5); WHITE BLOOD COUNT 9.6 10^3/ul (4.8-10.8)
[2017-07-15 17:44] LABS: ALBUMIN 4.4 g/dl (3.3-4.9); BILIRUBIN,DIRECT 1.6 mg/dl (0.00-0.20); BILIRUBIN,INDIRECT 1.4 mg/dl (0-1.1); TOTAL PROTEIN 8.5 g/dl (6.1-8.1)
[2017-07-15] MEDS: ZOLPIDEM 5 MG TAB PO PRN (21:03)
[2017-07-15] MEDS: ATORVASTATIN 40 MG TAB PO SCH (21:03)
[2017-07-15] MEDS: CLOPIDOGREL 75 MG TAB PO SCH (21:03)
[2017-07-15] MEDS: ASPIRIN (EC) 81 MG TAB PO SCH (21:04)
[2017-07-16] VITALS (10 sets, daily range): BP systolic 117–143; BP diastolic 57–69; PULSE 82–101; RESP 16–20
[2017-07-16] MEDS: ALBUTEROL/IPRATROPIUM (NEB) 3 ML AMP HHN SCH ×4 (01:44→20:37)
[2017-07-16] MEDS: PANTOPRAZOLE (EC) 40 MG TAB PO SCH ×2 (06:00→18:41)
--- NOTE | 2017-07-16 07:23 | CONS ---
Date/Time of Note Date/Time of Note DATE: 07/16/17 TIME: 07:21 Consult Date/Type/Reason Admit Date/Time Jul 05, 2017 at 08:11 Initial Consult Date 07/05/17 Type of Consultation: GI Ordering Provider: MYRTLE BLAKE MD Subjective Feels better No abdominal complaints Objective Vital Signs Date Time Temp Pulse Resp B/P Pulse Ox O2 Delivery O2 Flow Rate FiO2 07/16/17 04:15 97.6 90 20 131/67 95 07/16/17 01:46 10.0 07/15/17 20:30 Simple Mask 07/15/17 07:11 21 Abdomen: soft, non tender Intake and Output 07/15/17 07/15/17 07/16/17 15:00 23:00 07:00 Intake Total 1300 ml 250 ml Output Total 4500 ml Balance -3200 ml 250 ml Results/Medications Result Diagram: 07/15/17 1650 07/14/17 0531 Results 24 hrs Laboratory Tests Test 07/15/17 16:50 White Blood Count 9.6 Red Blood Count 3.90 #L Hemoglobin 11.8 #L Hematocrit 36.2 #L Mean Corpuscular Volume 92.8 Mean Corpuscular Hemoglobin 30.3 Mean Corpuscular Hemoglobin Concent 32.6 Red Cell Distribution Width 18.2 H Platelet Count 181 Mean Platelet Volume 10.7 H Neutrophils % 82.6 H Lymphocytes % 10.6 L Monocytes % 5.0 Eosinophils % 0.8 Basophils % 0.2 Nucleated Red Blood Cells % 0.0 Neutrophils # 7.9 H Lymphocytes # 1.0 Monocytes # 0.5 Eosinophils # 0.1 Basophils # 0.0 Nucleated Red Blood Cells # 0.0 Total Bilirubin 3.0 H Direct Bilirubin 1.60 #H Indirect Bilirubin 1.4 H Aspartate Amino Transf (AST/SGOT) 56 H Alanine Aminotransferase (ALT/SGPT) 30 Alkaline Phosphatase 591 H Total Protein 8.5 H Albumin 4.4 Medications Current Medications Allopurinol (Zyloprim) 100 mg DAILY PO Last administered on 07/15/17t 09:06; Admin Dose 100 MG; Start 07/06/17 at 09:00 Alprazolam (Xanax) 0.25 mg QHS PRN PO ANXIETY; Start 07/05/17 at 09:30 Aspirin (Halfprin) 81 mg QHS PO Last administered on 07/15/17 21:04; Admin Dose 81 MG; Start 07/05/17 at 21:00 Atorvastatin Calcium (Lipitor) 40 mg QHS PO Last administered on 07/15/17 21: 03; Admin Dose 40 MG; Start 07/05/17 at 21:00 Clopidogrel Bisulfate (plaVIX) 75 mg QHS PO Last administered on 07/15/17 21: 03; Admin Dose 75 MG; Start 07/05/17 at 21:00 Docusate Sodium (Colace) 100 mg TID PRN PO CONSTIPATION Last administered on 20:54; Admin Dose 100 MG; Start 07/05/17 at 09:30 Acetaminophen/ Hydrocodone Bitart ([place] (7.5-325)) 1 tab DAILY PRN PO SEVERE PAIN LEVEL 7-10 Last administered on 07/12/17 14:19; Admin Dose 1 TAB; Start at 09:30 Multivit/Ca Carb/ B Cmplx/FA/Prenat (Ig-Evelio) 1 tab DAILY PO Last administered on 07/15/17 09:06; Admin Dose 1 TAB; Start 07/06/17 at 09:00 Pantoprazole (Protonix Tab) 40 mg Q12@,18 PO Last administered on 07/14/17 05:23; Admin Dose 40 MG; Start 07/05/17 at 18:00 Ranolazine (Ranexa) 500 mg Q12 PO Last administered on 07/15/17 21:03; Admin Dose 500 MG; Start 07/05/17 at 21:00 Ropinirole HCl (Requip) 0.5 mg TID PO Last administered on 07/15/17 21:04; Admin Dose 0.5 MG; Start 07/05/17 at 13:00 Zolpidem Tartrate (Ambien) 7.5 mg QHS PRN PO INSOMNIA Last administered on 07/15 21:03; Admin Dose 7.5 MG; Start 07/05/17 at 09:30 Ondansetron HCl (Zofran Inj) 4 mg Q6H PRN IV NAUSEA AND/OR VOMITING Last administered on 07/11/17 14:24; Admin Dose 4 MG; Start 07/05/17 at 09:30 Nitroglycerin (Nitroglycerin (Sl Tab) 0.4 Mg) 1 tab Q5M PRN SL CHEST PAIN Last administered on 07/09/17 02:21; Admin Dose 1 TAB; Start 07/05/17 at 09:30 Acetaminophen (Tylenol Tab) 650 mg Q6H PRN PO PAIN LEVEL 1-3 OR FEVER; Start at 09:30 Docusate Sodium (Colace) 100 mg Q12H PRN PO CONSTIPATION; Start 07/05/17 at 09: 30 Bisacodyl (Dulcolax) 5 mg DAILY PRN PO CONSTIPATION Last administered on 20:54; Admin Dose 5 MG; Start 07/05/17 at 09:30 Polyethylene Glycol (Miralax) 17 gm DAILY PO Last administered on 07/15/17 09: 06; Admin Dose 17 GM; Start 07/06/17 at 09:00 Collagenase (Santyl) 1 applic DAILY TOP Last administered on 07/15/17 09:00; Admin Dose 1 APPLIC; Start 07/06/17 at 17:00 Calcium Carbonate (Tums) 500 mg QID PRN PO PRN Last administered on 07/11/17 21:38; Admin Dose 500 MG; Start 07/09/17 at 17:00 Simethicone 80 mg 80 mg Q6H PRN PO DISTENSION/GAS/BLOATING Last administered on 07/10/17 21:03; Admin Dose 80 MG; Start 07/10/17 at 05:00 Ferric Sodium Gluconate Complex/ Sodium Chloride (Ferrlecit/NS) 110 ml @ 100 mls/hr Q24H IVPB Last administered on 07/15/17 16:01; Admin Dose 100 MLS/HR; Start 07/14/17 at 17:00; Stop 07/16/17 at 18:05 Epoetin Lyle (Epogen (Esrd)) 10,000 units TuThSa@17 SC ; Start 07/14/17 at 17:00 Assessment/Plan Chief Complaint/Hosp Course Impression: 1. Cholecystitis - based on non visualized GB on HIDA 2. Abnormality of Transverse Colon on CT 3. Cholestatic LFTs - gradual improvement Plan: 1. Continue antibiotic and fluid management per Dr. Johnson/Cardiology 2. Discussed with Dr. Johnson yesterday. I will sign off for now. If decision is changed and more aggressive approach including colonoscopy is desired by patient, please call me again Problems: SOBIA SALINAS MD Jul 16, 2017 07:23
[2017-07-16] MEDS: SEVELAMER 800 MG TAB PO SCH ×3 (07:55→18:42)
[2017-07-16 08:04] LABS: BASOPHILS % 0.3 % (0.0-2.0); EOSINOPHILS # 0.1 10^3/ul (0.0-0.5); EOSINOPHILS % 0.8 % (0.0-7.0); HEMATOCRIT 34.9 % (42.0-52.0); LYMPHOCYTES # 1.4 10^3/ul (0.8-2.9); LYMPHOCYTES % 9.6 % (15.0-51.0); MEAN CORPUSCULAR HEMOGLOBIN 29.7 pg (29.0-33.0); MEAN CORPUSCULAR HGB CONC 31.5 g/dl (32.0-37.0); MEAN CORPUSCULAR VOLUME 94.3 fl (82.0-101.0); MEAN PLATELET VOLUME 10.9 fl (7.4-10.4); MONOCYTES % 7.1 % (0.0-11.0); NEUTROPHIL # 11.6 10^3/ul (1.6-7.5); NEUTROPHILS % 81.6 % (39.0-77.0); PLATELET COUNT 195 10^3/UL (140-415); RED CELL DISTRIBUTION WIDTH 20.1 % (11.5-14.5); WHITE BLOOD COUNT 14.2 10^3/ul (4.8-10.8)
[2017-07-16 08:33] LABS: ALBUMIN 3.8 g/dl (3.3-4.9); ALBUMIN/GLOBULIN RATIO 1.02; BILIRUBIN,DIRECT 1.7 mg/dl (0.00-0.20); BILIRUBIN,TOTAL 2.7 mg/dl (0.2-1.3); CALCIUM 9.9 mg/dl (8.4-10.2); CREATININE 4.15 mg/dl (0.61-1.24); TOTAL PROTEIN 7.5 g/dl (6.1-8.1)
[2017-07-16] MEDS: POLYETHYLENE GLYCOL 17 GM PACKET PO SCH (09:00)
--- NOTE | 2017-07-16 09:24 | CONS ---
Date/Time of Note Date/Time of Note DATE: 07/16/17 TIME: 09:20 Assessment/Plan Assessment/Plan Problems: (1) HTN (hypertension) Comment: controlled on current Rx (2) Debility Comment: discussed... rec he go to [facility]... he will speak michael Can this PM...? maybe there tomorrow post HD? (3) Anemia Status: Chronic Comment: better post PRBC's Qualifiers: Anemia type: unspecified type Qualified Code: D64.9 - Anemia, unspecified type (4) ESRD (end stage renal disease) on dialysis Status: Chronic Comment: HD in am (5) Cholelithiasis Comment: no surgery per his request Consultation Date/Type/Reason Admit Date/Time Jul 05, 2017 at 08:11 Initial Consult Date 07/05/17 Type of Consultation: renal Referring Provider: MYRTLE BLAKE MD 24 HR Interval Summary Free Text/Dictation same... stable... discussed disposition and need to get out of the hospital Exam/Review of Systems Vital Signs Vitals Vital Signs Date Time Temp Pulse Resp B/P Pulse Ox O2 Delivery O2 Flow Rate FiO2 07/16/17 08:05 97 7.0 07/16/17 08:02 92 20 Nasal Cannula 07/16/17 07:28 98.0 141/69 07/15/17 07:11 21 Intake and Output 07/15/17 07/15/17 07/16/17 15:00 23:00 07:00 Intake Total 1300 ml 250 ml Output Total 4500 ml Balance -3200 ml 250 ml Exam Constitutional: alert, oriented Respiratory: clear to auscultation Gastrointestinal: soft Extremities: other (fxn avf LUE) Results Result Diagram: 07/16/17 0736 07/16/17 0737 Results 24 hrs Laboratory Tests Test 07/15/17 16:50 07/16/17 07:26 07/16/17 07:36 07/16/17 07:37 White Blood Count 9.6 14.2 #H Red Blood Count 3.90 #L 3.70 L Hemoglobin 11.8 #L 11.0 L Hematocrit 36.2 #L 34.9 L Mean Corpuscular Volume 92.8 94.3 Mean Corpuscular Hemoglobin 30.3 29.7 Mean Corpuscular Hemoglobin Concent 32.6 31.5 L Red Cell Distribution Width 18.2 H 20.1 H Platelet Count 181 195 Mean Platelet Volume 10.7 H 10.9 H Neutrophils % 82.6 H 81.6 H Lymphocytes % 10.6 L 9.6 L Monocytes % 5.0 7.1 Eosinophils % 0.8 0.8 Basophils % 0.2 0.3 Nucleated Red Blood Cells % 0.0 0.0 Neutrophils # 7.9 H 11.6 H Lymphocytes # 1.0 1.4 Monocytes # 0.5 1.0 H Eosinophils # 0.1 0.1 Basophils # 0.0 0.0 Nucleated Red Blood Cells # 0.0 0.0 Total Bilirubin 3.0 H 2.7 H Direct Bilirubin 1.60 #H 1.70 H Indirect Bilirubin 1.4 H 1.0 Aspartate Amino Transf (AST/SGOT) 56 H 52 H Alanine Aminotransferase (ALT/SGPT) 30 26 Alkaline Phosphatase 591 H 518 H Total Protein 8.5 H 7.5 # Albumin 4.4 3.8 Lab Scanned Report BLOOD TRANSFUSION Sodium Level 141 Potassium Level 3.0 L Chloride Level 100 Carbon Dioxide Level 24 Anion Gap 20 H Blood Urea Nitrogen 21 H Creatinine 4.15 H Glucose Level 118 Calcium Level 9.9 Globulin 3.70 H Albumin/Globulin Ratio 1.02 Medications Medications Current Medications Allopurinol (Zyloprim) 100 mg DAILY PO Last administered on 07/15/17 09:06; Admin Dose 100 MG; Start 07/06/17 at 09:00 Alprazolam (Xanax) 0.25 mg QHS PRN PO ANXIETY; Start 07/05/17 at 09:30 Aspirin (Halfprin) 81 mg QHS PO Last administered on 07/15/17 21:04; Admin Dose 81 MG; Start 07/05/17 at 21:00 Atorvastatin Calcium (Lipitor) 40 mg QHS PO Last administered on 07/15/17 21: 03; Admin Dose 40 MG; Start 07/05/17 at 21:00 Clopidogrel Bisulfate (plaVIX) 75 mg QHS PO Last administered on 07/15/17 21: 03; Admin Dose 75 MG; Start 07/05/17 at 21:00 Docusate Sodium (Colace) 100 mg TID PRN PO CONSTIPATION Last administered on 20:54; Admin Dose 100 MG; Start 07/05/17 at 09:30 Acetaminophen/ Hydrocodone Bitart ([place] (7.5-325)) 1 tab DAILY PRN PO SEVERE PAIN LEVEL 7-10 Last administered on 07/12/17 14:19; Admin Dose 1 TAB; Start at 09:30 Multivit/Ca Carb/ B Cmplx/FA/Prenat (Gi-Evelio) 1 tab DAILY PO Last administered on 07/15/17 09:06; Admin Dose 1 TAB; Start 07/06/17 at 09:00 Pantoprazole (Protonix Tab) 40 mg Q12@,18 PO Last administered on 07/14/17 05:23; Admin Dose 40 MG; Start 07/05/17 at 18:00 Ranolazine (Ranexa) 500 mg Q12 PO Last administered on 07/15/17 21:03; Admin Dose 500 MG; Start 07/05/17 at 21:00 Ropinirole HCl (Requip) 0.5 mg TID PO Last administered on 07/15/17 21:04; Admin Dose 0.5 MG; Start 07/05/17 at 13:00 Zolpidem Tartrate (Ambien) 7.5 mg QHS PRN PO INSOMNIA Last administered on 07/15 21:03; Admin Dose 7.5 MG; Start 07/05/17 at 09:30 Ondansetron HCl (Zofran Inj) 4 mg Q6H PRN IV NAUSEA AND/OR VOMITING Last administered on 07/11/17 14:24; Admin Dose 4 MG; Start 07/05/17 at 09:30 Nitroglycerin (Nitroglycerin (Sl Tab) 0.4 Mg) 1 tab Q5M PRN SL CHEST PAIN Last administered on 07/09/17 02:21; Admin Dose 1 TAB; Start 07/05/17 at 09:30 Acetaminophen (Tylenol Tab) 650 mg Q6H PRN PO PAIN LEVEL 1-3 OR FEVER; Start at 09:30 Docusate Sodium (Colace) 100 mg Q12H PRN PO CONSTIPATION; Start 07/05/17 at 09: 30 Bisacodyl (Dulcolax) 5 mg DAILY PRN PO CONSTIPATION Last administered on 20:54; Admin Dose 5 MG; Start 07/05/17 at 09:30 Polyethylene Glycol (Miralax) 17 gm DAILY PO Last administered on 07/15/17 09: 06; Admin Dose 17 GM; Start 07/06/17 at 09:00 Collagenase (Santyl) 1 applic DAILY TOP Last administered on 07/15/17 09:00; Admin Dose 1 APPLIC; Start 07/06/17 at 17:00 Calcium Carbonate (Tums) 500 mg QID PRN PO PRN Last administered on 07/11/17 21:38; Admin Dose 500 MG; Start 07/09/17 at 17:00 Simethicone 80 mg 80 mg Q6H PRN PO DISTENSION/GAS/BLOATING Last administered on 07/10/17 21:03; Admin Dose 80 MG; Start 07/10/17 at 05:00 Ferric Sodium Gluconate Complex/ Sodium Chloride (Ferrlecit/NS) 110 ml @ 100 mls/hr Q24H IVPB Last administered on 07/15/17 16:01; Admin Dose 100 MLS/HR; Start 07/14/17 at 17:00; Stop 07/16/17 at 18:05 Epoetin Lyle (Epogen (Esrd)) 10,000 units TuThSa@17 SC ; Start 07/14/17 at 17:00 POP BOYCE MD Jul 16, 2017 09:24
[2017-07-16] MEDS: RANOLAZINE (SR) 500 MG TAB PO SCH ×2 (09:28→21:47)
[2017-07-16] MEDS: ALLOPURINOL 100 MG TAB PO SCH (09:29)
[2017-07-16] MEDS: ROPINIROLE 0.25 MG TAB PO SCH ×3 (09:29→21:47)
[2017-07-16] MEDS: MULTIVIT/CA CARB/B CMPLX/FA TAB PO SCH (09:29)
[2017-07-16] MEDS: COLLAGENASE 30 GM TUBE TOP SCH (09:30)
[2017-07-16] MEDS ORDERED: DIPHENOXYLATE/ATROPINE TAB PO PRN (11:00)
[2017-07-16] MEDS: POTASSIUM CHLORIDE (SR) 20 MEQ TAB PO SCH ×2 (13:58→21:46)
[2017-07-16] MEDS: HYDROCODONE/APAP (7.5/325) TAB PO PRN (13:58)
[2017-07-16] MEDS: EPOETIN 10000 UNITS/1 ML INJ (ESRD) SC SCH (17:00)
[2017-07-16] MEDS: SOD FERRIC GLUC COMPLX 125 MG in SOD CHLORIDE 0.9% 100 ML IVPB SCH (17:56)
[2017-07-16] MEDS: ALPRAZOLAM 0.25 MG TAB PO PRN (17:57)
[2017-07-16] MEDS: ASPIRIN (EC) 81 MG TAB PO SCH (21:46)
[2017-07-16] MEDS: ATORVASTATIN 40 MG TAB PO SCH (21:46)
[2017-07-16] MEDS: CLOPIDOGREL 75 MG TAB PO SCH (21:47)
[2017-07-17] VITALS (19 sets, daily range): BP systolic 100–149; BP diastolic 41–69; PULSE 77–94; RESP 16–22
[2017-07-17] MEDS: ALBUTEROL/IPRATROPIUM (NEB) 3 ML AMP HHN SCH ×4 (01:30→20:21)
[2017-07-17] MEDS: PANTOPRAZOLE (EC) 40 MG TAB PO SCH ×2 (06:03→18:00)
[2017-07-17] MEDS: SEVELAMER 800 MG TAB PO SCH ×3 (07:55→17:55)
[2017-07-17] MEDS: POLYETHYLENE GLYCOL 17 GM PACKET PO SCH (09:00)
[2017-07-17] MEDS: COLLAGENASE 30 GM TUBE TOP SCH (09:00)
[2017-07-17] MEDS ORDERED: ALBUMIN HUMAN 25% 100 ML IV ONE (10:30)
[2017-07-17 11:46] LABS: BASOPHILS % 0.3 % (0.0-2.0); EOSINOPHILS # 0.2 10^3/ul (0.0-0.5); EOSINOPHILS % 1.3 % (0.0-7.0); HEMATOCRIT 32.3 % (42.0-52.0); HEMOGLOBIN 10.2 g/dl (14.0-18.0); LYMPHOCYTES # 1.1 10^3/ul (0.8-2.9); LYMPHOCYTES % 8.9 % (15.0-51.0); MEAN CORPUSCULAR HEMOGLOBIN 30.3 pg (29.0-33.0); MEAN CORPUSCULAR HGB CONC 31.6 g/dl (32.0-37.0); MEAN CORPUSCULAR VOLUME 95.8 fl (82.0-101.0); MEAN PLATELET VOLUME 11.3 fl (7.4-10.4); MONOCYTE # 0.6 10^3/ul (0.3-0.9); MONOCYTES % 5.3 % (0.0-11.0); NEUTROPHILS % 83.5 % (39.0-77.0); PLATELET COUNT 178 10^3/UL (140-415); RED BLOOD COUNT 3.37 10^6/ul (4.70-6.10); RED CELL DISTRIBUTION WIDTH 20.2 % (11.5-14.5)
[2017-07-17 12:14] LABS: ALBUMIN 3.2 g/dl (3.3-4.9); ALBUMIN/GLOBULIN RATIO 0.91; BILIRUBIN,DIRECT 0.9 mg/dl (0.00-0.20); BILIRUBIN,INDIRECT 0.6 mg/dl (0-1.1); BILIRUBIN,TOTAL 1.5 mg/dl (0.2-1.3); CALCIUM 9.5 mg/dl (8.4-10.2); CREATININE 4.82 mg/dl (0.61-1.24); POTASSIUM 3.5 mmol/L (3.5-5.1); TOTAL PROTEIN 6.7 g/dl (6.1-8.1)
[2017-07-17] MEDS: ALLOPURINOL 100 MG TAB PO SCH (12:33)
[2017-07-17] MEDS: MULTIVIT/CA CARB/B CMPLX/FA TAB PO SCH (12:33)
[2017-07-17] MEDS: RANOLAZINE (SR) 500 MG TAB PO SCH ×2 (12:33→21:00)
[2017-07-17] MEDS: ROPINIROLE 0.25 MG TAB PO SCH ×4 (12:33→23:31)
--- NOTE | 2017-07-17 12:46 | CONS ---
Date/Time of Note Date/Time of Note DATE: 07/17/17 TIME: 12:42 Assessment/Plan Assessment/Plan Problems: (1) HTN (hypertension) Comment: controlled (2) Debility Comment: felicityo is crazy... again asked CM to help here... he has beed accepted at [facility], but says will not go there (3) Anemia Status: Chronic Comment: stable... on epo/Fe Qualifiers: Anemia type: unspecified type Qualified Code: D64.9 - Anemia, unspecified type (4) ESRD (end stage renal disease) on dialysis Status: Chronic Comment: s/p HD earlier... gets it q MWF (5) Cholelithiasis Comment: pain free, off abx and LFT's im,proving... is asx.... has refused lap vladimir Consultation Date/Type/Reason Admit Date/Time Jul 05, 2017 at 08:11 Initial Consult Date 07/05/17 Type of Consultation: renal Referring Provider: MYRTLE BLAKE MD 24 HR Interval Summary Free Text/Dictation now he tells me he will go home w care... states his will take him home... I expressed to him, that she has told me NUMEROUS TIMES that she canNOT deal w him at home... will again get CM involved Exam/Review of Systems Vital Signs Vitals Vital Signs Date Time Temp Pulse Resp B/P Pulse Ox O2 Delivery O2 Flow Rate FiO2 07/17/17 12:24 92 07/17/17 11:20 98.1 16 100/47 97 07/17/17 08:30 Nasal Cannula 7.0 07/15/17 07:11 21 Intake and Output 07/16/17 07/16/17 07/17/17 15:00 23:00 07:00 Intake Total 400 ml 280 ml Balance 400 ml 280 ml Exam Constitutional: alert, oriented Psych: no complaints Neck: supple Respiratory: clear to auscultation Cardiovascular: regular rate and rhythm Gastrointestinal: soft Extremities: other (fxn avf LUE) Results Result Diagram: 07/17/17 0800 07/17/17 0800 Results 24 hrs Laboratory Tests Test 07/17/17 08:00 White Blood Count 12.0 H Red Blood Count 3.37 L Hemoglobin 10.2 L Hematocrit 32.3 L Mean Corpuscular Volume 95.8 Mean Corpuscular Hemoglobin 30.3 Mean Corpuscular Hemoglobin Concent 31.6 L Red Cell Distribution Width 20.2 H Platelet Count 178 Mean Platelet Volume 11.3 H Neutrophils % 83.5 H Lymphocytes % 8.9 L Monocytes % 5.3 Eosinophils % 1.3 Basophils % 0.3 Nucleated Red Blood Cells % 0.0 Neutrophils # 10.0 H Lymphocytes # 1.1 Monocytes # 0.6 Eosinophils # 0.2 Basophils # 0.0 Nucleated Red Blood Cells # 0.0 Sodium Level 138 Potassium Level 3.5 Chloride Level 101 Carbon Dioxide Level 23 Anion Gap 18 H Blood Urea Nitrogen 26 H Creatinine 4.82 H Glucose Level 100 Calcium Level 9.5 Total Bilirubin 1.5 H Direct Bilirubin 0.90 #H Indirect Bilirubin 0.6 Aspartate Amino Transf (AST/SGOT) 52 H Alanine Aminotransferase (ALT/SGPT) 30 Alkaline Phosphatase 441 H Total Protein 6.7 Albumin 3.2 L Globulin 3.50 H Albumin/Globulin Ratio 0.91 Medications Medications Current Medications Allopurinol (Zyloprim) 100 mg DAILY PO Last administered on 07/17/17 12:33; Admin Dose 100 MG; Start 07/06/17 at 09:00 Alprazolam (Xanax) 0.25 mg QHS PRN PO ANXIETY Last administered on 07/16/17 17 :57; Admin Dose 0.25 MG; Start 07/05/17 at 09:30 Aspirin (Halfprin) 81 mg QHS PO Last administered on 07/16/17 21:46; Admin Dose 81 MG; Start 07/05/17 at 21:00 Atorvastatin Calcium (Lipitor) 40 mg QHS PO Last administered on 07/16/17 21: 46; Admin Dose 40 MG; Start 07/05/17 at 21:00 Clopidogrel Bisulfate (plaVIX) 75 mg QHS PO Last administered on 07/16/17 21: 47; Admin Dose 75 MG; Start 07/05/17 at 21:00 Docusate Sodium (Colace) 100 mg TID PRN PO CONSTIPATION Last administered on 20:54; Admin Dose 100 MG; Start 07/05/17 at 09:30 Acetaminophen/ Hydrocodone Bitart ([place] (7.5-325)) 1 tab DAILY PRN PO SEVERE PAIN LEVEL 7-10 Last administered on 07/16/17 13:58; Admin Dose 1 TAB; Start at 09:30 Multivit/Ca Carb/ B Cmplx/FA/Prenat (Gi-Evelio) 1 tab DAILY PO Last administered on 07/17/17 12:33; Admin Dose 1 TAB; Start 07/06/17 at 09:00 Pantoprazole (Protonix Tab) 40 mg Q12@06,18 PO Last administered on 07/17/17 06:03; Admin Dose 40 MG; Start 07/05/17 at 18:00 Ranolazine (Ranexa) 500 mg Q12 PO Last administered on 07/17/17 12:33; Admin Dose 500 MG; Start 07/05/17 at 21:00 Ropinirole HCl (Requip) 0.5 mg TID PO Last administered on 07/17/17 12:33; Admin Dose 0.5 MG; Start 07/05/17 at 13:00 Zolpidem Tartrate (Ambien) 7.5 mg QHS PRN PO INSOMNIA Last administered on 07/15 21:03; Admin Dose 7.5 MG; Start 07/05/17 at 09:30 Ondansetron HCl (Zofran Inj) 4 mg Q6H PRN IV NAUSEA AND/OR VOMITING Last administered on 07/11/17 14:24; Admin Dose 4 MG; Start 07/05/17 at 09:30 Nitroglycerin (Nitroglycerin (Sl Tab) 0.4 Mg) 1 tab Q5M PRN SL CHEST PAIN Last administered on 07/09/17 02:21; Admin Dose 1 TAB; Start 07/05/17 at 09:30 Acetaminophen (Tylenol Tab) 650 mg Q6H PRN PO PAIN LEVEL 1-3 OR FEVER; Start at 09:30 Docusate Sodium (Colace) 100 mg Q12H PRN PO CONSTIPATION; Start 07/05/17 at 09: 30 Bisacodyl (Dulcolax) 5 mg DAILY PRN PO CONSTIPATION Last administered on 20:54; Admin Dose 5 MG; Start 07/05/17 at 09:30 Polyethylene Glycol (Miralax) 17 gm DAILY PO Last administered on 07/15/17 09: 06; Admin Dose 17 GM; Start 07/06/17 at 09:00 Collagenase (Santyl) 1 applic DAILY TOP Last administered on 07/17/17 09:00; Admin Dose 1 APPLIC; Start 07/06/17 at 17:00 Calcium Carbonate (Tums) 500 mg QID PRN PO PRN Last administered on 07/11/17 21:38; Admin Dose 500 MG; Start 07/09/17 at 17:00 Simethicone (Mylicon) 80 mg Q6H PRN PO DISTENSION/GAS/BLOATING Last administered on 07/10/17 21:03; Admin Dose 80 MG; Start 07/10/17 at 05:00 Epoetin Lyle (Epogen (Esrd)) 10,000 units TuThSa@17 SC ; Start 07/14/17 at 17:00 Diphenoxylate HCl/ Atropine (Lomotil) 2 tab PRN PRN PO DIARRHEA Last administered on 07/16/17 13:59; Admin Dose 2 TAB; Start 07/16/17 at 11:00 POP BOYCE MD Jul 17, 2017 12:46
[2017-07-17] MEDS: CLOPIDOGREL 75 MG TAB PO SCH (21:00)
[2017-07-17] MEDS: ATORVASTATIN 40 MG TAB PO SCH (21:00)
[2017-07-17] MEDS: ASPIRIN (EC) 81 MG TAB PO SCH (21:00)
[2017-07-17] MEDS: ZOLPIDEM 5 MG TAB PO PRN (23:31)
[2017-07-18] VITALS (8 sets, daily range): BP systolic 111–140; BP diastolic 53–72; PULSE 84–89; RESP 16–20
[2017-07-18] MEDS: ALBUTEROL/IPRATROPIUM (NEB) 3 ML AMP HHN SCH ×4 (02:18→19:44)
[2017-07-18] MEDS: PANTOPRAZOLE (EC) 40 MG TAB PO SCH ×2 (06:32→17:50)
[2017-07-18] MEDS: COLLAGENASE 30 GM TUBE TOP SCH ×2 (08:56→22:29)
[2017-07-18] MEDS: SEVELAMER 800 MG TAB PO SCH ×3 (08:57→17:50)
[2017-07-18] MEDS: RANOLAZINE (SR) 500 MG TAB PO SCH ×3 (08:57→23:59)
[2017-07-18] MEDS: MULTIVIT/CA CARB/B CMPLX/FA TAB PO SCH (08:57)
[2017-07-18] MEDS: ALLOPURINOL 100 MG TAB PO SCH (08:58)
[2017-07-18] MEDS: POLYETHYLENE GLYCOL 17 GM PACKET PO SCH (09:00)
[2017-07-18] MEDS: ROPINIROLE 0.25 MG TAB PO SCH ×3 (09:11→21:59)
--- NOTE | 2017-07-18 13:57 | CONS ---
Date/Time of Note Date/Time of Note DATE: 07/18/17 TIME: 13:48 Assessment/Plan Assessment/Plan Additional Assessment/Plan very complicated patients with various medical problems as outlined below 1- advanced CAD. s/p multiple procedures and on medical managment per cardiology recs. not a candidate for further intervention and is currently asymptomatic from a cardiac perspective 2-esrd: on hd m/w/f. next hd scheduled on thursday 3-htn: stable on meds 4- copd/ emphesyma and h/o pleural effusions: stable with chronic sob at baseline 5- recent acute cholecystitis based on non visualization of gall bladder on hyda scan. he was treated with abx with improvement in lfts ( cholestatic picture) pt very difficult and keeps chnaging his mind about possible intervention. he has refused gall bladder surgery in the past and now states "willing to do something' just not now. in the meantime, as of yesterday his lfts were improving and his wbc is trending down off abx. no labs done today and will order for tomorrow. gi has signed off and requested to be called again if pt agreable to intervention 6- recurrent anemia on epogen/ s/p prbc and stable. has an abnormality on ct and refused c scope 7-severe debilitation: cont pt. 8-dispo: very difficult situation, pt choniclly ill and has cont to decline multiple interventions. he has remained afebrile and hemodynamically stable off abx with labs showing improvement. his is unable to take him home and he is refusing nhp. I will transfer to [facility] for now and case managment is involved in his dc planning. he and his are aware need to have final placement decision by thursday Consultation Date/Type/Reason Admit Date/Time Jul 05, 2017 at 08:11 Initial Consult Date feels ok. denies pain/ fever/ nausea. has chronic sob which is stable and at baseline. refusing to go to SNF and unable to take him home. states has placed a petition contesting his dc Type of Consultation: renal Referring Provider: MYRTLE BLAKE MD Exam/Review of Systems Vital Signs Vitals Vital Signs Date Time Temp Pulse Resp B/P Pulse Ox O2 Delivery O2 Flow Rate FiO2 07/18/17 13:04 91 18 99 Nasal Cannula 6.0 07/18/17 11:26 97.3 139/72 07/15/17 07:11 21 Intake and Output 07/17/17 07/17/17 07/18/17 15:00 23:00 07:00 Intake Total 500 ml 480 ml 300 ml Output Total 3500 ml Balance -3000 ml 480 ml 300 ml Exam Constitutional: alert, frail, oriented Head: normocephalic Neck: non-tender, supple Respiratory: diminished breath sounds Cardiovascular: edema, regular rate and rhythm Gastrointestinal: non-tender, soft Results Result Diagram: 07/17/17 0800 07/17/17 0800 Medications Medications Current Medications Allopurinol (Zyloprim) 100 mg DAILY PO Last administered on 07/18/17 08:58; Admin Dose 100 MG; Start 07/06/17 at 09:00 Alprazolam (Xanax) 0.25 mg QHS PRN PO ANXIETY Last administered on 07/16/17 17 :57; Admin Dose 0.25 MG; Start 07/05/17 at 09:30 Aspirin (Halfprin) 81 mg QHS PO Last administered on 07/16/17 21:46; Admin Dose 81 MG; Start 07/05/17 at 21:00 Atorvastatin Calcium (Lipitor) 40 mg QHS PO Last administered on 07/16/17 21: 46; Admin Dose 40 MG; Start 07/05/17 at 21:00 Clopidogrel Bisulfate (plaVIX) 75 mg QHS PO Last administered on 07/16/17 21: 47; Admin Dose 75 MG; Start 07/05/17 at 21:00 Docusate Sodium (Colace) 100 mg TID PRN PO CONSTIPATION Last administered on 20:54; Admin Dose 100 MG; Start 07/05/17 at 09:30 Acetaminophen/ Hydrocodone Bitart ([place] (7.5-325)) 1 tab DAILY PRN PO SEVERE PAIN LEVEL 7-10 Last administered on 07/16/17 13:58; Admin Dose 1 TAB; Start at 09:30 Multivit/Ca Carb/ B Cmplx/FA/Prenat (Gi-Evelio) 1 tab DAILY PO Last administered on 07/18/17 08:57; Admin Dose 1 TAB; Start 07/06/17 at 09:00 Pantoprazole (Protonix Tab) 40 mg Q12@06,18 PO Last administered on 07/18/17 06:32; Admin Dose 40 MG; Start 07/05/17 at 18:00 Ranolazine (Ranexa) 500 mg Q12 PO Last administered on 07/18/17 08:57; Admin Dose 500 MG; Start 07/05/17 at 21:00 Ropinirole HCl (Requip) 0.5 mg TID PO Last administered on 07/18/17 12:43; Admin Dose 0.5 MG; Start 07/05/17 at 13:00 Zolpidem Tartrate (Ambien) 7.5 mg QHS PRN PO INSOMNIA Last administered on 07/17 23:31; Admin Dose 7.5 MG; Start 07/05/17 at 09:30 Ondansetron HCl (Zofran Inj) 4 mg Q6H PRN IV NAUSEA AND/OR VOMITING Last administered on 07/11/17 14:24; Admin Dose 4 MG; Start 07/05/17 at 09:30 Nitroglycerin (Nitroglycerin (Sl Tab) 0.4 Mg) 1 tab Q5M PRN SL CHEST PAIN Last administered on 07/09/17 02:21; Admin Dose 1 TAB; Start 07/05/17 at 09:30 Acetaminophen (Tylenol Tab) 650 mg Q6H PRN PO PAIN LEVEL 1-3 OR FEVER; Start at 09:30 Docusate Sodium (Colace) 100 mg Q12H PRN PO CONSTIPATION; Start 07/05/17 at 09: 30 Bisacodyl (Dulcolax) 5 mg DAILY PRN PO CONSTIPATION Last administered on 20:54; Admin Dose 5 MG; Start 07/05/17 at 09:30 Polyethylene Glycol (Miralax) 17 gm DAILY PO Last administered on 07/15/17 09: 06; Admin Dose 17 GM; Start 07/06/17 at 09:00 Collagenase (Santyl) 1 applic DAILY TOP Last administered on 07/18/17 08:56; Admin Dose 1 APPLIC; Start 07/06/17 at 17:00 Calcium Carbonate (Tums) 500 mg QID PRN PO PRN Last administered on 07/11/17 21:38; Admin Dose 500 MG; Start 07/09/17 at 17:00 Simethicone (Mylicon) 80 mg Q6H PRN PO DISTENSION/GAS/BLOATING Last administered on 07/10/17 21:03; Admin Dose 80 MG; Start 07/10/17 at 05:00 Epoetin Lyle (Epogen (Esrd)) 10,000 units TuThSa@17 SC ; Start 07/14/17 at 17:00 Diphenoxylate HCl/ Atropine (Lomotil) 2 tab PRN PRN PO DIARRHEA Last administered on 07/16/17 13:59; Admin Dose 2 TAB; Start 07/16/17 at 11:00 MARY LOU OVALLE MD Jul 18, 2017 13:57
[2017-07-18] MEDS: EPOETIN 10000 UNITS/1 ML INJ (ESRD) SC SCH (17:00)
[2017-07-18] MEDS: ATORVASTATIN 40 MG TAB PO SCH (21:58)
[2017-07-18] MEDS: CLOPIDOGREL 75 MG TAB PO SCH (21:58)
[2017-07-18] MEDS: ASPIRIN (EC) 81 MG TAB PO SCH (21:59)
[2017-07-18] MEDS: ZOLPIDEM 5 MG TAB PO PRN (22:09)
[2017-07-19] MEDS: ALBUTEROL/IPRATROPIUM (NEB) 3 ML AMP HHN SCH ×4 (01:44→20:01)
[2017-07-19 02:26] VITALS: BP 130/62; RESP 20
[2017-07-19 05:13] LABS: BASOPHILS % 0.5 % (0.0-2.0); EOSINOPHILS # 0.2 10^3/ul (0.0-0.5); EOSINOPHILS % 2.4 % (0.0-7.0); HEMATOCRIT 33.5 % (42.0-52.0); HEMOGLOBIN 10.1 g/dl (14.0-18.0); LYMPHOCYTES # 1.3 10^3/ul (0.8-2.9); LYMPHOCYTES % 15.4 % (15.0-51.0); MEAN CORPUSCULAR HEMOGLOBIN 29.5 pg (29.0-33.0); MEAN CORPUSCULAR HGB CONC 30.1 g/dl (32.0-37.0); MEAN PLATELET VOLUME 10.5 fl (7.4-10.4); MONOCYTE # 0.5 10^3/ul (0.3-0.9); MONOCYTES % 6.1 % (0.0-11.0); NEUTROPHIL # 6.2 10^3/ul (1.6-7.5); NEUTROPHILS % 75.1 % (39.0-77.0); PLATELET COUNT 173 10^3/UL (140-415); RED BLOOD COUNT 3.42 10^6/ul (4.70-6.10); WHITE BLOOD COUNT 8.2 10^3/ul (4.8-10.8)
[2017-07-19] MEDS: PANTOPRAZOLE (EC) 40 MG TAB PO SCH ×2 (05:37→17:51)
[2017-07-19 05:44] LABS: ALBUMIN 3.4 g/dl (3.3-4.9); ALBUMIN/GLOBULIN RATIO 0.89; BILIRUBIN,DIRECT 0.6 mg/dl (0.00-0.20); BILIRUBIN,INDIRECT 0.6 mg/dl (0-1.1); BILIRUBIN,TOTAL 1.2 mg/dl (0.2-1.3); CALCIUM 9.8 mg/dl (8.4-10.2); CREATININE 5.56 mg/dl (0.61-1.24); POTASSIUM 3.1 mmol/L (3.5-5.1); TOTAL PROTEIN 7.2 g/dl (6.1-8.1)
[2017-07-19 08:33] VITALS: BP 121/57; RESP 20
[2017-07-19] MEDS: SEVELAMER 800 MG TAB PO SCH ×3 (08:47→17:51)
[2017-07-19] MEDS: RANOLAZINE (SR) 500 MG TAB PO SCH ×2 (08:48→20:41)
[2017-07-19] MEDS: ROPINIROLE 0.25 MG TAB PO SCH ×3 (08:49→20:41)
[2017-07-19] MEDS: COLLAGENASE 30 GM TUBE TOP SCH (08:50)
[2017-07-19] MEDS: MULTIVIT/CA CARB/B CMPLX/FA TAB PO SCH (08:50)
[2017-07-19] MEDS: ALLOPURINOL 100 MG TAB PO SCH (08:50)
[2017-07-19] MEDS: POLYETHYLENE GLYCOL 17 GM PACKET PO SCH (09:00)
--- NOTE | 2017-07-19 09:52 | CONS ---
Date/Time of Note Date/Time of Note DATE: 07/19/17 TIME: 09:49 Assessment/Plan Assessment/Plan Additional Assessment/Plan very complicated patients with various medical problems as outlined below 1- advanced CAD. s/p multiple procedures and on medical managment per cardiology recs. not a candidate for further intervention and is currently asymptomatic from a cardiac perspective 2-esrd: on hd m/w/f. next hd scheduled tomorrow 3-htn: stable on meds 4- copd/ emphesyma and h/o pleural effusions: stable with chronic sob at baseline 5- recent acute cholecystitis based on non visualization of gall bladder on hyda scan. he was treated with abx with improvement in lfts ( cholestatic picture) repeat wbc wnl today and lfts back to normal 6- recurrent anemia on epogen/ s/p prbc and stable. has an abnormality on ct and refused c scope 7-severe debilitation: cont pt. 8-dispo: very difficult situation, pt choniclly ill and has cont to decline multiple interventions. he has remained afebrile and hemodynamically stable off abx with labs showing improvement. his is unable to take him home and he is refusing nhp.pt now on med surg and awaiting decision regarding discharge. discharge orders placed Consultation Date/Type/Reason Admit Date/Time Jul 05, 2017 at 08:11 Initial Consult Date feels ok. denies pain/ fever/ nausea. has chronic sob which is stable and at baseline. refusing to go to SNF and unable to take him home. states has placed a petition contesting his dc Type of Consultation: renal Reason for Consultation doing ok. contesting discharge and [place] [facility] does want to discuss this issue with any mds Referring Provider: MYRTLE BLAKE MD Exam/Review of Systems Vital Signs Vitals Vital Signs Date Time Temp Pulse Resp B/P Pulse Ox O2 Delivery O2 Flow Rate FiO2 07/19/17 08:33 98.0 76 20 121/57 100 07/19/17 01:45 Nasal Cannula 6.0 07/15/17 07:11 21 Intake and Output 07/18/17 07/18/17 07/19/17 15:00 23:00 07:00 Intake Total 720 ml 450 ml Output Total 2 ml Balance 720 ml 448 ml Exam Constitutional: alert, frail, oriented Head: atraumatic, normocephalic Eyes: nl conjunctiva Neck: jvd, non-tender, supple Respiratory: diminished breath sounds Cardiovascular: edema, regular rate and rhythm Gastrointestinal: non-tender, soft Results Result Diagram: 07/19/172 07/19/172 Results 24 hrs Laboratory Tests Test 07/19/17 04:42 White Blood Count 8.2 # Red Blood Count 3.42 L Hemoglobin 10.1 L Hematocrit 33.5 L Mean Corpuscular Volume 98.0 Mean Corpuscular Hemoglobin 29.5 Mean Corpuscular Hemoglobin Concent 30.1 L Red Cell Distribution Width 20.0 H Platelet Count 173 Mean Platelet Volume 10.5 H Neutrophils % 75.1 Lymphocytes % 15.4 Monocytes % 6.1 Eosinophils % 2.4 Basophils % 0.5 Nucleated Red Blood Cells % 0.0 Neutrophils # 6.2 Lymphocytes # 1.3 Monocytes # 0.5 Eosinophils # 0.2 Basophils # 0.0 Nucleated Red Blood Cells # 0.0 Sodium Level 135 Potassium Level 3.1 L Chloride Level 96 L Carbon Dioxide Level 25 Anion Gap 17 H Blood Urea Nitrogen 31 H Creatinine 5.56 H Glucose Level 96 Calcium Level 9.8 Total Bilirubin 1.2 Direct Bilirubin 0.60 #H Indirect Bilirubin 0.6 Aspartate Amino Transf (AST/SGOT) 45 Alanine Aminotransferase (ALT/SGPT) 29 Alkaline Phosphatase 428 H Total Protein 7.2 Albumin 3.4 Globulin 3.80 H Albumin/Globulin Ratio 0.89 Medications Medications Current Medications Allopurinol (Zyloprim) 100 mg DAILY PO Last administered on 07/19/17 08:50; Admin Dose 100 MG; Start 07/06/17 at 09:00 Alprazolam (Xanax) 0.25 mg QHS PRN PO ANXIETY Last administered on 07/16/17 17 :57; Admin Dose 0.25 MG; Start 07/05/17 at 09:30 Aspirin (Halfprin) 81 mg QHS PO Last administered on 07/18/17 21:59; Admin Dose 81 MG; Start 07/05/17 at 21:00 Atorvastatin Calcium (Lipitor) 40 mg QHS PO Last administered on 07/18/17 21: 58; Admin Dose 40 MG; Start 07/05/17 at 21:00 Clopidogrel Bisulfate (plaVIX) 75 mg QHS PO Last administered on 07/18/17 21: 58; Admin Dose 75 MG; Start 07/05/17 at 21:00 Docusate Sodium (Colace) 100 mg TID PRN PO CONSTIPATION Last administered on 20:54; Admin Dose 100 MG; Start 07/05/17 at 09:30 Acetaminophen/ Hydrocodone Bitart ([place] (7.5-325)) 1 tab DAILY PRN PO SEVERE PAIN LEVEL 7-10 Last administered on 07/16/17 13:58; Admin Dose 1 TAB; Start at 09:30 Multivit/Ca Carb/ B Cmplx/FA/Prenat (Gi-Evelio) 1 tab DAILY PO Last administered on 07/19/17 08:50; Admin Dose 1 TAB; Start 07/06/17 at 09:00 Pantoprazole (Protonix Tab) 40 mg Q12@,18 PO Last administered on 07/19/17 05:37; Admin Dose 40 MG; Start 07/05/17 at 18:00 Ranolazine (Ranexa) 500 mg Q12 PO Last administered on 07/19/17 08:48; Admin Dose 500 MG; Start 07/05/17 at 21:00 Ropinirole HCl (Requip) 0.5 mg TID PO Last administered on 07/19/17 08:49; Admin Dose 0.5 MG; Start 07/05/17 at 13:00 Zolpidem Tartrate (Ambien) 7.5 mg QHS PRN PO INSOMNIA Last administered on 07/18 22:09; Admin Dose 7.5 MG; Start 07/05/17 at 09:30 Ondansetron HCl (Zofran Inj) 4 mg Q6H PRN IV NAUSEA AND/OR VOMITING Last administered on 07/11/17 14:24; Admin Dose 4 MG; Start 07/05/17 at 09:30 Nitroglycerin (Nitroglycerin (Sl Tab) 0.4 Mg) 1 tab Q5M PRN SL CHEST PAIN Last administered on 07/09/17 02:21; Admin Dose 1 TAB; Start 07/05/17 at 09:30 Acetaminophen (Tylenol Tab) 650 mg Q6H PRN PO PAIN LEVEL 1-3 OR FEVER; Start at 09:30 Docusate Sodium (Colace) 100 mg Q12H PRN PO CONSTIPATION; Start 07/05/17 at 09: 30 Bisacodyl (Dulcolax) 5 mg DAILY PRN PO CONSTIPATION Last administered on 20:54; Admin Dose 5 MG; Start 07/05/17 at 09:30 Polyethylene Glycol (Miralax) 17 gm DAILY PO Last administered on 07/15/17 09: 06; Admin Dose 17 GM; Start 07/06/17 at 09:00 Collagenase (Santyl) 1 applic DAILY TOP Last administered on 07/19/17 08:50; Admin Dose 1 APPLIC; Start 07/06/17 at 17:00 Calcium Carbonate (Tums) 500 mg QID PRN PO PRN Last administered on 07/11/17 21:38; Admin Dose 500 MG; Start 07/09/17 at 17:00 Simethicone (Mylicon) 80 mg Q6H PRN PO DISTENSION/GAS/BLOATING Last administered on 07/10/17 21:03; Admin Dose 80 MG; Start 07/10/17 at 05:00 Epoetin Lyle (Epogen (Esrd)) 10,000 units TuThSa@17 SC ; Start 07/14/17 at 17:00 Diphenoxylate HCl/ Atropine (Lomotil) 2 tab PRN PRN PO DIARRHEA Last administered on 07/16/17 13:59; Admin Dose 2 TAB; Start 07/16/17 at 11:00 MARY LOU OVALLE MD Jul 19, 2017 09:52
[2017-07-19 16:00] VITALS: BP 141/65; RESP 20
[2017-07-19] MEDS: ATORVASTATIN 40 MG TAB PO SCH (20:40)
[2017-07-19] MEDS: CLOPIDOGREL 75 MG TAB PO SCH (20:41)
[2017-07-19] MEDS: ASPIRIN (EC) 81 MG TAB PO SCH (20:41)
[2017-07-19] MEDS: ZOLPIDEM 5 MG TAB PO PRN (20:50)
[2017-07-19 21:34] VITALS: BP 140/66; RESP 18
[2017-07-20] VITALS (11 sets, daily range): BP systolic 99–143; BP diastolic 45–68; PULSE 90–96; RESP 16–20
[2017-07-20] MEDS: ALBUTEROL/IPRATROPIUM (NEB) 3 ML AMP HHN SCH ×4 (01:24→19:54)
[2017-07-20] MEDS: ROPINIROLE 0.25 MG TAB PO SCH ×3 (05:07→21:03)
[2017-07-20] MEDS: PANTOPRAZOLE (EC) 40 MG TAB PO SCH ×2 (05:07→18:00)
[2017-07-20] MEDS: SEVELAMER 800 MG TAB PO SCH ×3 (07:50→18:00)
--- NOTE | 2017-07-20 08:17 | CONS ---
Date/Time of Note Date/Time of Note DATE: 07/20/17 TIME: 08:11 Assessment/Plan Assessment/Plan Problems: (1) Debility Comment: same issues.. dispo very difficult, as outlined in my prior note, as well as mult nursing notes (2) Anemia Status: Chronic Comment: stable.. on EPo and Fe Qualifiers: Anemia type: unspecified type Qualified Code: D64.9 - Anemia, unspecified type (3) SOB (shortness of breath) Comment: despite O2 sats of 100%... he insists need more O2...despite my and nursing discussion w him.....will get CXR (4) ESRD (end stage renal disease) on dialysis Status: Chronic Comment: for HD today (5) Elevated liver enzymes Comment: resolved... is off all abx x days... no T... WBC nl as well...remains painfree Consultation Date/Type/Reason Admit Date/Time Jul 05, 2017 at 08:11 Initial Consult Date 07/05/17 Type of Consultation: renal Referring Provider: MYRTLE BLAKE MD 24 HR Interval Summary Free Text/Dictation quiet... not talking much... says is SOB... O2 sat currently 100% Exam/Review of Systems Vital Signs Vitals Vital Signs Date Time Temp Pulse Resp B/P Pulse Ox O2 Delivery O2 Flow Rate FiO2 07/20/17 07:44 12.0 07/20/17 07:44 85 20 100 Simple Mask 07/20/17 02:26 98.3 139/65 Intake and Output 07/19/17 07/19/17 07/20/17 15:00 23:00 07:00 Intake Total 480 ml 700 ml Balance 480 ml 700 ml Exam Constitutional: alert, oriented Eyes: nl conjunctiva Respiratory: other (some decreased BS L chest) Cardiovascular: regular rate and rhythm Gastrointestinal: soft Extremities: other (fxn avf) Results Result Diagram: 07/19/1744107/19/17441 Medications Medications Current Medications Allopurinol (Zyloprim) 100 mg DAILY PO Last administered on 07/19/17t 08:50; Admin Dose 100 MG; Start 07/06/17 at 09:00 Alprazolam (Xanax) 0.25 mg QHS PRN PO ANXIETY Last administered on 07/16/17 17 :57; Admin Dose 0.25 MG; Start 07/05/17 at 09:30 Aspirin (Halfprin) 81 mg QHS PO Last administered on 07/19/17 20:41; Admin Dose 81 MG; Start 07/05/17 at 21:00 Atorvastatin Calcium (Lipitor) 40 mg QHS PO Last administered on 07/19/17 20: 40; Admin Dose 40 MG; Start 07/05/17 at 21:00 Clopidogrel Bisulfate (plaVIX) 75 mg QHS PO Last administered on 07/19/17 20: 41; Admin Dose 75 MG; Start 07/05/17 at 21:00 Docusate Sodium (Colace) 100 mg TID PRN PO CONSTIPATION Last administered on 20:54; Admin Dose 100 MG; Start 07/05/17 at 09:30 Acetaminophen/ Hydrocodone Bitart ([place] (7.5-325)) 1 tab DAILY PRN PO SEVERE PAIN LEVEL 7-10 Last administered on 07/16/17 13:58; Admin Dose 1 TAB; Start at 09:30 Multivit/Ca Carb/ B Cmplx/FA/Prenat (Gi-Evelio) 1 tab DAILY PO Last administered on 07/19/17 08:50; Admin Dose 1 TAB; Start 07/06/17 at 09:00 Pantoprazole (Protonix Tab) 40 mg Q12@06,18 PO Last administered on 07/20/17 05:07; Admin Dose 40 MG; Start 07/05/17 at 18:00 Ranolazine (Ranexa) 500 mg Q12 PO Last administered on 07/19/17 20:41; Admin Dose 500 MG; Start 07/05/17 at 21:00 Ropinirole HCl (Requip) 0.5 mg TID PO Last administered on 07/20/17 05:07; Admin Dose 0.5 MG; Start 07/05/17 at 13:00 Zolpidem Tartrate (Ambien) 7.5 mg QHS PRN PO INSOMNIA Last administered on 07/19 20:50; Admin Dose 7.5 MG; Start 07/05/17 at 09:30 Ondansetron HCl (Zofran Inj) 4 mg Q6H PRN IV NAUSEA AND/OR VOMITING Last administered on 07/11/17 14:24; Admin Dose 4 MG; Start 07/05/17 at 09:30 Nitroglycerin (Nitroglycerin (Sl Tab) 0.4 Mg) 1 tab Q5M PRN SL CHEST PAIN Last administered on 07/09/17 02:21; Admin Dose 1 TAB; Start 07/05/17 at 09:30 Acetaminophen (Tylenol Tab) 650 mg Q6H PRN PO PAIN LEVEL 1-3 OR FEVER; Start at 09:30 Docusate Sodium (Colace) 100 mg Q12H PRN PO CONSTIPATION; Start 07/05/17 at 09: 30 Bisacodyl (Dulcolax) 5 mg DAILY PRN PO CONSTIPATION Last administered on 20:54; Admin Dose 5 MG; Start 07/05/17 at 09:30 Polyethylene Glycol (Miralax) 17 gm DAILY PO Last administered on 07/15/17 09: 06; Admin Dose 17 GM; Start 07/06/17 at 09:00 Collagenase (Santyl) 1 applic DAILY TOP Last administered on 07/19/17 08:50; Admin Dose 1 APPLIC; Start 07/06/17 at 17:00 Calcium Carbonate (Tums) 500 mg QID PRN PO PRN Last administered on 07/11/17 21:38; Admin Dose 500 MG; Start 07/09/17 at 17:00 Simethicone (Mylicon) 80 mg Q6H PRN PO DISTENSION/GAS/BLOATING Last administered on 07/10/17 21:03; Admin Dose 80 MG; Start 07/10/17 at 05:00 Epoetin Lyle (Epogen (Esrd)) 10,000 units TuTa@17 SC ; Start 07/14/17 at 17:00 Diphenoxylate HCl/ Atropine (Lomotil) 2 tab PRN PRN PO DIARRHEA Last administered on 07/16/17 13:59; Admin Dose 2 TAB; Start 07/16/17 at 11:00 PPO BOYCE MD Jul 20, 2017 08:17
[2017-07-20] MEDS: RANOLAZINE (SR) 500 MG TAB PO SCH ×2 (08:19→21:02)
[2017-07-20] MEDS: MULTIVIT/CA CARB/B CMPLX/FA TAB PO SCH (08:19)
[2017-07-20] MEDS: ALLOPURINOL 100 MG TAB PO SCH (08:20)
[2017-07-20] MEDS: POLYETHYLENE GLYCOL 17 GM PACKET PO SCH (08:20)
[2017-07-20] MEDS: COLLAGENASE 30 GM TUBE TOP SCH (09:00)
--- NOTE | 2017-07-20 09:17 | RADRPT ---
PROCEDURE: XR Chest. CLINICAL INDICATION: Shortness of breath . TECHNIQUE: Single frontal chest x-ray. COMPARISON: 07/13/2017 FINDINGS: There is a right-sided biventricular cardiac pacer in place. Mild to moderate left pleural effusion with left basilar atelectasis or consolidation appears improved. Right basilar atelectasis and small effusion has also improved. . Calcific atherosclerosis of the aorta is present.. The cardiomediast inal silhouette is unremarkable. The osseous structures are intact. IMPRESSION: Improved bilateral left greater than right bibasilar atelectasis and pleural effusions.. RPTAT: GG .Eugene Willis MD, MD Date Time Electronically viewed and signed by .Eugene Willis MD, on 07/20/2017 09:17 .L/
[2017-07-20 10:27] LABS: BASOPHILS % 0.3 % (0.0-2.0); EOSINOPHILS # 0.2 10^3/ul (0.0-0.5); EOSINOPHILS % 2.3 % (0.0-7.0); HEMOGLOBIN 10.1 g/dl (14.0-18.0); LYMPHOCYTES % 13.7 % (15.0-51.0); MEAN CORPUSCULAR HEMOGLOBIN 30.3 pg (29.0-33.0); MEAN CORPUSCULAR HGB CONC 31.6 g/dl (32.0-37.0); MEAN CORPUSCULAR VOLUME 96.1 fl (82.0-101.0); MEAN PLATELET VOLUME 10.5 fl (7.4-10.4); MONOCYTE # 0.3 10^3/ul (0.3-0.9); NEUTROPHIL # 5.5 10^3/ul (1.6-7.5); NEUTROPHILS % 79.1 % (39.0-77.0); PLATELET COUNT 186 10^3/UL (140-415); RED BLOOD COUNT 3.33 10^6/ul (4.70-6.10); RED CELL DISTRIBUTION WIDTH 19.8 % (11.5-14.5)
[2017-07-20] MEDS: ALBUMIN HUMAN 25% 100 ML IV PRN (10:51)
[2017-07-20 11:07] LABS: ALBUMIN 3.1 g/dl (3.3-4.9); ALBUMIN/GLOBULIN RATIO 0.83; BILIRUBIN,DIRECT 0.5 mg/dl (0.00-0.20); BILIRUBIN,INDIRECT 0.3 mg/dl (0-1.1); BILIRUBIN,TOTAL 0.8 mg/dl (0.2-1.3); CALCIUM 9.6 mg/dl (8.4-10.2); CREATININE 6.86 mg/dl (0.61-1.24); POTASSIUM 3.6 mmol/L (3.5-5.1); TOTAL PROTEIN 6.8 g/dl (6.1-8.1)
[2017-07-20] MEDS: ATORVASTATIN 40 MG TAB PO SCH (21:02)
[2017-07-20] MEDS: ASPIRIN (EC) 81 MG TAB PO SCH (21:03)
[2017-07-20] MEDS: CLOPIDOGREL 75 MG TAB PO SCH (21:03)
[2017-07-20] MEDS: ZOLPIDEM 5 MG TAB PO PRN (21:03)
[2017-07-21] MEDS: ALPRAZOLAM 0.25 MG TAB PO PRN ×2 (02:11→14:51)
[2017-07-21 02:18] VITALS: BP 129/57; RESP 18
[2017-07-21] MEDS: ALBUTEROL/IPRATROPIUM (NEB) 3 ML AMP HHN SCH ×4 (02:29→19:57)
[2017-07-21] MEDS: PANTOPRAZOLE (EC) 40 MG TAB PO SCH ×2 (06:30→17:09)
--- NOTE | 2017-07-21 07:51 | CONS ---
Date/Time of Note Date/Time of Note DATE: 07/21/17 TIME: 07:45 Assessment/Plan Assessment/Plan Problems: (1) Debility Comment: d/c plans noted.. to be seen by Palliative care for poss d/c home w care later today.. i will do the med rec now, so is ready to go (2) Cough Comment: CXR better... no T... WBC again nl (3) ESRD (end stage renal disease) on dialysis Status: Chronic Comment: HD q MWF (4) Elevated liver enzymes Comment: resolved Consultation Date/Type/Reason Admit Date/Time Jul 05, 2017 at 08:11 Initial Consult Date 07/05/17 Type of Consultation: renal Referring Provider: MYRTLE BLAKE MD 24 HR Interval Summary Free Text/Dictation d/c plans in process... detailed CM note read, and appreciate all the work being done on the pt's behalf Exam/Review of Systems Vital Signs Vitals Vital Signs Date Time Temp Pulse Resp B/P Pulse Ox O2 Delivery O2 Flow Rate FiO2 07/21/17 02:29 74 20 99 Simple Mask 10.0 07/21/17 02:18 98.2 129/57 Intake and Output 07/20/17 07/20/17 07/21/17 15:00 23:00 07:00 Intake Total 300 ml 600 ml 400 ml Output Total 3300 ml 0 ml Balance -3000 ml 600 ml 400 ml Exam Constitutional: alert, oriented Respiratory: clear to auscultation Cardiovascular: regular rate and rhythm Extremities: other (fxn avf) Results Result Diagram: 07/20/17 0958 07/20/17 0958 Results 24 hrs Laboratory Tests Test 07/20/17 09:58 White Blood Count 7.0 Red Blood Count 3.33 L Hemoglobin 10.1 L Hematocrit 32.0 L Mean Corpuscular Volume 96.1 Mean Corpuscular Hemoglobin 30.3 Mean Corpuscular Hemoglobin Concent 31.6 L Red Cell Distribution Width 19.8 H Platelet Count 186 Mean Platelet Volume 10.5 H Neutrophils % 79.1 H Lymphocytes % 13.7 L Monocytes % 4.0 Eosinophils % 2.3 Basophils % 0.3 Nucleated Red Blood Cells % 0.0 Neutrophils # 5.5 Lymphocytes # 1.0 Monocytes # 0.3 Eosinophils # 0.2 Basophils # 0.0 Nucleated Red Blood Cells # 0.0 Sodium Level 132 L Potassium Level 3.6 Chloride Level 97 Carbon Dioxide Level 23 Anion Gap 16 Blood Urea Nitrogen 42 #H Creatinine 6.86 H Glucose Level 86 Calcium Level 9.6 Total Bilirubin 0.8 Direct Bilirubin 0.50 H Indirect Bilirubin 0.3 Aspartate Amino Transf (AST/SGOT) 51 H Alanine Aminotransferase (ALT/SGPT) 30 Alkaline Phosphatase 432 H Total Protein 6.8 Albumin 3.1 L Globulin 3.70 H Albumin/Globulin Ratio 0.83 Medications Medications Current Medications Allopurinol (Zyloprim) 100 mg DAILY PO Last administered on 07/19/17 08:50; Admin Dose 100 MG; Start 07/06/17 at 09:00 Alprazolam (Xanax) 0.25 mg QHS PRN PO ANXIETY Last administered on 07/21/17 02 :11; Admin Dose 0.25 MG; Start 07/05/17 at 09:30 Aspirin (Halfprin) 81 mg QHS PO Last administered on 07/20/17 21:03; Admin Dose 81 MG; Start 07/05/17 at 21:00 Atorvastatin Calcium (Lipitor) 40 mg QHS PO Last administered on 07/20/17 21: 02; Admin Dose 40 MG; Start 07/05/17 at 21:00 Clopidogrel Bisulfate (plaVIX) 75 mg QHS PO Last administered on 07/20/17 21: 03; Admin Dose 75 MG; Start 07/05/17 at 21:00 Docusate Sodium (Colace) 100 mg TID PRN PO CONSTIPATION Last administered on 20:54; Admin Dose 100 MG; Start 07/05/17 at 09:30 Acetaminophen/ Hydrocodone Bitart ([place] (7.5-325)) 1 tab DAILY PRN PO SEVERE PAIN LEVEL 7-10 Last administered on 07/16/17 13:58; Admin Dose 1 TAB; Start at 09:30 Multivit/Ca Carb/ B Cmplx/FA/Prenat (Gi-Evelio) 1 tab DAILY PO Last administered on 07/19/17 08:50; Admin Dose 1 TAB; Start 07/06/17 at 09:00 Pantoprazole (Protonix Tab) 40 mg Q12@,18 PO Last administered on 07/21/17 06:30; Admin Dose 40 MG; Start 07/05/17 at 18:00 Ranolazine (Ranexa) 500 mg Q12 PO Last administered on 07/20/17 21:02; Admin Dose 500 MG; Start 07/05/17 at 21:00 Ropinirole HCl (Requip) 0.5 mg TID PO Last administered on 07/20/17 21:03; Admin Dose 0.5 MG; Start 07/05/17 at 13:00 Zolpidem Tartrate (Ambien) 7.5 mg QHS PRN PO INSOMNIA Last administered on 07/20 21:03; Admin Dose 7.5 MG; Start 07/05/17 at 09:30 Ondansetron HCl (Zofran Inj) 4 mg Q6H PRN IV NAUSEA AND/OR VOMITING Last administered on 07/11/17 14:24; Admin Dose 4 MG; Start 07/05/17 at 09:30 Nitroglycerin (Nitroglycerin (Sl Tab) 0.4 Mg) 1 tab Q5M PRN SL CHEST PAIN Last administered on 07/09/17 02:21; Admin Dose 1 TAB; Start 07/05/17 at 09:30 Acetaminophen (Tylenol Tab) 650 mg Q6H PRN PO PAIN LEVEL 1-3 OR FEVER; Start at 09:30 Docusate Sodium (Colace) 100 mg Q12H PRN PO CONSTIPATION; Start 07/05/17 at 09: 30 Bisacodyl (Dulcolax) 5 mg DAILY PRN PO CONSTIPATION Last administered on 20:54; Admin Dose 5 MG; Start 07/05/17 at 09:30 Polyethylene Glycol (Miralax) 17 gm DAILY PO Last administered on 07/15/17 09: 06; Admin Dose 17 GM; Start 07/06/17 at 09:00 Collagenase (Santyl) 1 applic DAILY TOP Last administered on 07/19/17 08:50; Admin Dose 1 APPLIC; Start 07/06/17 at 17:00 Calcium Carbonate (Tums) 500 mg QID PRN PO PRN Last administered on 07/11/17 21:38; Admin Dose 500 MG; Start 07/09/17 at 17:00 Simethicone (Mylicon) 80 mg Q6H PRN PO DISTENSION/GAS/BLOATING Last administered on 07/10/17 21:03; Admin Dose 80 MG; Start 07/10/17 at 05:00 Epoetin Lyle (Epogen (Esrd)) 10,000 units TuThSa@17 SC ; Start 07/14/17 at 17:00 Diphenoxylate HCl/ Atropine (Lomotil) 2 tab PRN PRN PO DIARRHEA Last administered on 07/16/17 13:59; Admin Dose 2 TAB; Start 07/16/17 at 11:00 POP BOYCE MD Jul 21, 2017 07:51
[2017-07-21 07:53] VITALS: BP 150/67; RESP 18
[2017-07-21] MEDS: SEVELAMER 800 MG TAB PO SCH ×3 (08:42→17:09)
[2017-07-21] MEDS: RANOLAZINE (SR) 500 MG TAB PO SCH ×2 (08:42→20:31)
[2017-07-21] MEDS: ROPINIROLE 0.25 MG TAB PO SCH ×3 (08:46→20:32)
[2017-07-21] MEDS: MULTIVIT/CA CARB/B CMPLX/FA TAB PO SCH (08:46)
[2017-07-21] MEDS: ALLOPURINOL 100 MG TAB PO SCH (08:46)
[2017-07-21] MEDS: COLLAGENASE 30 GM TUBE TOP SCH (09:00)
[2017-07-21] MEDS: POLYETHYLENE GLYCOL 17 GM PACKET PO SCH (09:00)
[2017-07-21 15:40] VITALS: BP 140/72; RESP 18
[2017-07-21] MEDS: EPOETIN 10000 UNITS/1 ML INJ (ESRD) SC SCH (17:00)
[2017-07-21 20:18] VITALS: BP 148/69; RESP 20
[2017-07-21] MEDS: ATORVASTATIN 40 MG TAB PO SCH (20:31)
[2017-07-21] MEDS: CLOPIDOGREL 75 MG TAB PO SCH (20:32)
[2017-07-21] MEDS: ASPIRIN (EC) 81 MG TAB PO SCH (20:32)
[2017-07-21] MEDS: ZOLPIDEM 5 MG TAB PO PRN (21:51)
[2017-07-21 23:08] LABS: FREE TESTOSTERONE 11.4 pg/mL (30.0-135.0)
[2017-07-22] VITALS (11 sets, daily range): BP systolic 109–152; BP diastolic 60–76; PULSE 90–94; RESP 20
[2017-07-22] MEDS: ALBUTEROL/IPRATROPIUM (NEB) 3 ML AMP HHN SCH ×4 (01:46→19:52)
[2017-07-22] MEDS: HYDROCODONE/APAP (7.5/325) TAB PO PRN (04:34)
[2017-07-22] MEDS: PANTOPRAZOLE (EC) 40 MG TAB PO SCH ×2 (05:57→17:56)
[2017-07-22] MEDS: SEVELAMER 800 MG TAB PO SCH ×3 (07:50→17:56)
--- NOTE | 2017-07-22 08:33 | CONS ---
Date/Time of Note Date/Time of Note DATE: 07/22/17 TIME: 08:31 Assessment/Plan Assessment/Plan Additional Assessment/Plan 1. CKD to be dialyzed today. 2. Known CAD, without angina. 3. CHF improved. 4. DC planning in progress as is palliative care. Consultation Date/Type/Reason Admit Date/Time Jul 05, 2017 at 08:11 Initial Consult Date 07/05/17 Type of Consultation: renal Referring Provider: MYRTLE BLAKE MD Detailed Summary Respiratory: cough (is mild and not productive), shortness of breath (is mild and unchanged) Cardiovascular: No chest pain Gastrointestinal: no complaints Genitourinary: no complaints Exam/Review of Systems Vital Signs Vitals Vital Signs Date Time Temp Pulse Resp B/P Pulse Ox O2 Delivery O2 Flow Rate FiO2 07/22/17 02:14 94 20 141/65 100 07/22/17 01:47 Simple Mask 10.0 07/21/17 20:18 98.0 Intake and Output 07/21/17 07/21/17 07/22/17 15:00 23:00 07:00 Intake Total 300 ml 780 ml Output Total 0 ml Balance 300 ml 780 ml Exam Neck: No jvd Respiratory: diminished breath sounds (and bronchial bs left base) Cardiovascular: regular rate and rhythm, No S3 Gastrointestinal: soft Extremities: No edema (and no calf tend) Results Result Diagram: 07/20/1795707/20/1758 Medications Medications Current Medications Allopurinol (Zyloprim) 100 mg DAILY PO Last administered on 07/21/17 08:46; Admin Dose 100 MG; Start 07/06/17 at 09:00 Alprazolam (Xanax) 0.25 mg QHS PRN PO ANXIETY Last administered on 07/21/17 14 :51; Admin Dose 0.25 MG; Start 07/05/17 at 09:30 Aspirin (Halfprin) 81 mg QHS PO Last administered on 07/21/17 20:32; Admin Dose 81 MG; Start 07/05/17 at 21:00 Atorvastatin Calcium (Lipitor) 40 mg QHS PO Last administered on 07/21/17 20: 31; Admin Dose 40 MG; Start 07/05/17 at 21:00 Clopidogrel Bisulfate (plaVIX) 75 mg QHS PO Last administered on 07/21/17 20: 32; Admin Dose 75 MG; Start 07/05/17 at 21:00 Docusate Sodium (Colace) 100 mg TID PRN PO CONSTIPATION Last administered on 20:54; Admin Dose 100 MG; Start 07/05/17 at 09:30 Acetaminophen/ Hydrocodone Bitart ([place] (7.5-325)) 1 tab DAILY PRN PO SEVERE PAIN LEVEL 7-10 Last administered on 07/22/17 04:34; Admin Dose 1 TAB; Start at 09:30 Multivit/Ca Carb/ B Cmplx/FA/Prenat (Gi-Evelio) 1 tab DAILY PO Last administered on 07/21/17 08:46; Admin Dose 1 TAB; Start 07/06/17 at 09:00 Pantoprazole (Protonix Tab) 40 mg Q12@06,18 PO Last administered on 07/22/17 05:57; Admin Dose 40 MG; Start 07/05/17 at 18:00 Ranolazine (Ranexa) 500 mg Q12 PO Last administered on 07/21/17 20:31; Admin Dose 500 MG; Start 07/05/17 at 21:00 Ropinirole HCl (Requip) 0.5 mg TID PO Last administered on 07/21/17 20:32; Admin Dose 0.5 MG; Start 07/05/17 at 13:00 Zolpidem Tartrate (Ambien) 7.5 mg QHS PRN PO INSOMNIA Last administered on 07/21 21:51; Admin Dose 7.5 MG; Start 07/05/17 at 09:30 Ondansetron HCl (Zofran Inj) 4 mg Q6H PRN IV NAUSEA AND/OR VOMITING Last administered on 07/11/17 14:24; Admin Dose 4 MG; Start 07/05/17 at 09:30 Nitroglycerin (Nitroglycerin (Sl Tab) 0.4 Mg) 1 tab Q5M PRN SL CHEST PAIN Last administered on 07/09/17 02:21; Admin Dose 1 TAB; Start 07/05/17 at 09:30 Acetaminophen (Tylenol Tab) 650 mg Q6H PRN PO PAIN LEVEL 1-3 OR FEVER; Start at 09:30 Docusate Sodium (Colace) 100 mg Q12H PRN PO CONSTIPATION; Start 07/05/17 at 09: 30 Bisacodyl (Dulcolax) 5 mg DAILY PRN PO CONSTIPATION Last administered on 20:54; Admin Dose 5 MG; Start 07/05/17 at 09:30 Polyethylene Glycol (Miralax) 17 gm DAILY PO Last administered on 07/15/17 09: 06; Admin Dose 17 GM; Start 07/06/17 at 09:00 Collagenase (Santyl) 1 applic DAILY TOP Last administered on 07/21/17 09:00; Admin Dose 1 APPLIC; Start 07/06/17 at 17:00 Calcium Carbonate (Tums) 500 mg QID PRN PO PRN Last administered on 07/11/17 21:38; Admin Dose 500 MG; Start 07/09/17 at 17:00 Simethicone (Mylicon) 80 mg Q6H PRN PO DISTENSION/GAS/BLOATING Last administered on 07/10/17 21:03; Admin Dose 80 MG; Start 07/10/17 at 05:00 Epoetin Lyle (Epogen (Esrd)) 10,000 units TuThSa@17 SC ; Start 07/14/17 at 17:00 Diphenoxylate HCl/ Atropine (Lomotil) 2 tab PRN PRN PO DIARRHEA Last administered on 07/16/17 13:59; Admin Dose 2 TAB; Start 07/16/17 at 11:00 ALONZO SERRA MD Jul 22, 2017 08:33
[2017-07-22] MEDS: ROPINIROLE 0.25 MG TAB PO SCH ×4 (09:00→21:02)
[2017-07-22] MEDS: COLLAGENASE 30 GM TUBE TOP SCH (09:51)
[2017-07-22] MEDS: POLYETHYLENE GLYCOL 17 GM PACKET PO SCH (09:51)
[2017-07-22] MEDS: MULTIVIT/CA CARB/B CMPLX/FA TAB PO SCH (09:52)
[2017-07-22] MEDS: ALLOPURINOL 100 MG TAB PO SCH (09:52)
[2017-07-22] MEDS: RANOLAZINE (SR) 500 MG TAB PO SCH ×2 (12:20→21:02)
[2017-07-22] MEDS: CLOPIDOGREL 75 MG TAB PO SCH (21:02)
[2017-07-22] MEDS: ASPIRIN (EC) 81 MG TAB PO SCH (21:02)
[2017-07-22] MEDS: ATORVASTATIN 40 MG TAB PO SCH (21:02)
[2017-07-22] MEDS: ZOLPIDEM 5 MG TAB PO PRN (21:02)
[2017-07-23] MEDS: ALBUTEROL/IPRATROPIUM (NEB) 3 ML AMP HHN SCH ×3 (01:18→12:58)
[2017-07-23 02:33] VITALS: BP 122/65; RESP 18
[2017-07-23] MEDS: PANTOPRAZOLE (EC) 40 MG TAB PO SCH ×2 (06:36→17:44)
[2017-07-23 07:52] VITALS: BP 133/63; RESP 20
--- NOTE | 2017-07-23 08:33 | CONS ---
Date/Time of Note Date/Time of Note DATE: 07/23/17 TIME: 08:26 Assessment/Plan Assessment/Plan Problems: (1) Hypogonadism male Comment: will dose w IM testosterone this am (2) HTN (hypertension) Comment: controlled (3) Debility Comment: home soon (4) Anemia Status: Chronic Comment: on epo Qualifiers: Anemia type: unspecified type Qualified Code: D64.9 - Anemia, unspecified type (5) ESRD (end stage renal disease) on dialysis Status: Chronic Comment: HD in am Consultation Date/Type/Reason Admit Date/Time Jul 05, 2017 at 08:11 Initial Consult Date 07/05/17 Type of Consultation: renal Referring Provider: MYRTLE BLAKE MD 24 HR Interval Summary Free Text/Dictation no complaints... pt still here... he supposedly has been seen by palliative care , altho there is no note in the chart to the effect... nor have i ever been contacted by anyone from palliative care, either the MD or nurse... hopefully these issues will be clarified at some point... I have no idea what team is seeing him, or what care going forward they are to provide... pt wishes to continue with dialysis, which i will supervise... as far as to all the other degrees of medical care that i have always historically provided to the pt, I have no idea if I am to continue with that, or is this palliative care team going to provide such Exam/Review of Systems Vital Signs Vitals Vital Signs Date Time Temp Pulse Resp B/P Pulse Ox O2 Delivery O2 Flow Rate FiO2 07/23/17 07:52 98.3 95 20 133/63 100 07/23/17 01:18 10.0 07/23/17 01:18 Simple Mask Intake and Output 07/22/17 07/22/17 07/23/17 15:00 23:00 07:00 Intake Total 500 ml 650 ml 680 ml Output Total 3300 ml 0 ml 0 ml Balance -2800 ml 650 ml 680 ml Exam Constitutional: alert, oriented Psych: no complaints Respiratory: clear to auscultation Cardiovascular: regular rate and rhythm Extremities: other (fxn avf) Results Result Diagram: 07/20/1758 07/20/17957 Medications Medications Current Medications Allopurinol (Zyloprim) 100 mg DAILY PO Last administered on 07/22/17 09:52; Admin Dose 100 MG; Start 07/06/17 at 09:00 Alprazolam (Xanax) 0.25 mg QHS PRN PO ANXIETY Last administered on 07/21/17 14 :51; Admin Dose 0.25 MG; Start 07/05/17 at 09:30 Aspirin (Halfprin) 81 mg QHS PO Last administered on 07/22/17 21:02; Admin Dose 81 MG; Start 07/05/17 at 21:00 Atorvastatin Calcium (Lipitor) 40 mg QHS PO Last administered on 07/22/17 21: 02; Admin Dose 40 MG; Start 07/05/17 at 21:00 Clopidogrel Bisulfate (plaVIX) 75 mg QHS PO Last administered on 07/22/17 21: 02; Admin Dose 75 MG; Start 07/05/17 at 21:00 Docusate Sodium (Colace) 100 mg TID PRN PO CONSTIPATION Last administered on 20:54; Admin Dose 100 MG; Start 07/05/17 at 09:30 Acetaminophen/ Hydrocodone Bitart ([place] (7.5-325)) 1 tab DAILY PRN PO SEVERE PAIN LEVEL 7-10 Last administered on 07/22/17 04:34; Admin Dose 1 TAB; Start at 09:30 Multivit/Ca Carb/ B Cmplx/FA/Prenat (Gi-Evelio) 1 tab DAILY PO Last administered on 07/22/17 09:52; Admin Dose 1 TAB; Start 07/06/17 at 09:00 Pantoprazole (Protonix Tab) 40 mg Q12@,18 PO Last administered on 07/23/17 06:36; Admin Dose 40 MG; Start 07/05/17 at 18:00 Ranolazine (Ranexa) 500 mg Q12 PO Last administered on 07/22/17 21:02; Admin Dose 500 MG; Start 07/05/17 at 21:00 Ropinirole HCl (Requip) 0.5 mg TID PO Last administered on 07/22/17 21:02; Admin Dose 0.5 MG; Start 07/05/17 at 13:00 Zolpidem Tartrate (Ambien) 7.5 mg QHS PRN PO INSOMNIA Last administered on 07/22 21:02; Admin Dose 7.5 MG; Start 07/05/17 at 09:30 Ondansetron HCl (Zofran Inj) 4 mg Q6H PRN IV NAUSEA AND/OR VOMITING Last administered on 07/11/17 14:24; Admin Dose 4 MG; Start 07/05/17 at 09:30 Nitroglycerin (Nitroglycerin (Sl Tab) 0.4 Mg) 1 tab Q5M PRN SL CHEST PAIN Last administered on 07/09/17 02:21; Admin Dose 1 TAB; Start 07/05/17 at 09:30 Acetaminophen (Tylenol Tab) 650 mg Q6H PRN PO PAIN LEVEL 1-3 OR FEVER; Start at 09:30 Docusate Sodium (Colace) 100 mg Q12H PRN PO CONSTIPATION; Start 07/05/17 at 09: 30 Bisacodyl (Dulcolax) 5 mg DAILY PRN PO CONSTIPATION Last administered on 20:54; Admin Dose 5 MG; Start 07/05/17 at 09:30 Polyethylene Glycol (Miralax) 17 gm DAILY PO Last administered on 07/22/17 09: 51; Admin Dose 17 GM; Start 07/06/17 at 09:00 Collagenase (Santyl) 1 applic DAILY TOP Last administered on 07/22/17 09:51; Admin Dose 1 APPLIC; Start 07/06/17 at 17:00 Calcium Carbonate (Tums) 500 mg QID PRN PO PRN Last administered on 07/11/17 21:38; Admin Dose 500 MG; Start 07/09/17 at 17:00 Simethicone (Mylicon) 80 mg Q6H PRN PO DISTENSION/GAS/BLOATING Last administered on 07/10/17 21:03; Admin Dose 80 MG; Start 07/10/17 at 05:00 Epoetin Lyle (Epogen (Esrd)) 10,000 units TuThSa@17 SC ; Start 07/14/17 at 17:00 Diphenoxylate HCl/ Atropine (Lomotil) 2 tab PRN PRN PO DIARRHEA Last administered on 07/16/17 13:59; Admin Dose 2 TAB; Start 07/16/17 at 11:00 POP BOYCE MD Jul 23, 2017 08:33
[2017-07-23] MEDS: POLYETHYLENE GLYCOL 17 GM PACKET PO SCH (09:00)
[2017-07-23] MEDS: ALLOPURINOL 100 MG TAB PO SCH (09:24)
[2017-07-23] MEDS: SEVELAMER 800 MG TAB PO SCH ×3 (09:24→17:44)
[2017-07-23] MEDS: ROPINIROLE 0.25 MG TAB PO SCH ×2 (09:25→13:43)
[2017-07-23] MEDS: MULTIVIT/CA CARB/B CMPLX/FA TAB PO SCH (09:25)
[2017-07-23] MEDS: COLLAGENASE 30 GM TUBE TOP SCH (09:26)
[2017-07-23] MEDS: RANOLAZINE (SR) 500 MG TAB PO SCH (09:36)
[2017-07-23] MEDS ORDERED: TESTOSTERONE CYPIONATE 200 MG/ML INJ IM SCH (10:00)
[2017-07-23] MEDS ORDERED: ALPRAZOLAM 0.25 MG TAB PO SCH (15:34)
[2017-07-23] MEDS: EPOETIN 10000 UNITS/1 ML INJ (ESRD) SC SCH (17:00)
--- NOTE | 2017-07-29 04:36 | DS ---
DATE OF ADMISSION: 07/05/2017 DATE OF DISCHARGE: 07/23/2017 REASON FOR ADMISSION: Recurrent chest pain and shortness of breath. HISTORY OF PRESENT ILLNESS: Please see my full dictated history and physical for details. Briefly, this is one of numerous admissions for this 71-year-old gentleman well known to me with kno wn endstage renal disease, currently maintained on outpatient hemodialysis every Thursday, Thursday a thursday with a significant known history of hypertension, ischemic cardiomyopathy, coronary artery disease, status post numerous PCI and stents in the past and who recently underwent placement of bi ventricular pacer with an AICD at [facility] during the summer. He has been in and out of the hospital numerous times with recurrent chest pain and shortness of breath and at times has developed non-ST e levation MIs. His LVEF is approximately 30% and is followed by Dr. Perez. At this time, he presented to the ER again complaining of shortness of breath despite an O2 sat of 9 8% on 5 liters, chest x-ray showed cardiomegaly with some pulmonary vascular congestion. EKG showed his baseline left bundle branch block. He was subsequently admitted for further evaluation and the rapy. HOSPITAL COURSE: Patient was admitted, was ruled out for an OR, again was seen by Dr. Perez. It was noted that the patient did not have any further target lesions from his numerous PCIs and ang iograms in the past and it was felt best to treat him conservatively. He was vigorously dialyzed. Fluid was controlled then it was noted as well on admission that he had elevated alkaline phosphatase. This was followed up with both an ultrasound and CAT scan felt consistent with acute cholecystitis. The patient was initially put on IV antibiotics with resolving leukocytosis and elevated LFTs. He was seen in consultation with Dr. Bennett from the GI service who recommended a HIDA scan which was done which did show nonvisualization of the gallbladder consistent with the aforementioned acute cho lecystitis. The patient with numerous discussions stated he wanted to be treated conservatively, specifically no surgical intervention to be done, and as well on the CAT scan, they noted a colonic abnormality. H owever, the patient also refused to undergo any colonoscopy. He remained asymptomatic with his abdominal exam and with the continued IV Zosyn, both his LFTs and leukocytosis resolved, but he remains steadfast in his desire to not have any further intervention e ither with colonoscopy or laparoscopic cholecystectomy. Discussions then revolved around his desires and lack thereof for continued healthcare. A palliativ e healthcare team was called by the nursing staff and it was decided between the palliative health c are on the patient that he will continue his DNR status, they will arrange for home health, but that he does wish to continue with hemodialysis. It should be mentioned, I am unaware of the name of the palliative healthcare team, as neither they nor their physician in charge did consult me or contact me for that matter in regards to Mr. Clemens . Regardless, the patient was very comfortable with the team, he wished to continue his dialysis, but did not wish to continue with aggressive medical care or further hospitalization should they be advi sed. At the time of discharge, hypertension was controlled. His debility is being dealt with a hos pital bed and home health care, his anemia was stable on iron IV and IV Epo, his dialysis will be co ntinued on a q. Thursday, Thursday, Thursday basis. His cholecystitis had resolved. He remained asymp tomatic and was in stable condition at the time of discharge. DISCHARGE DIAGNOSES: 1. Endstage renal disease maintained on outpatient hemodialysis every Thursday, Thursday and Thursday. 2. Acute cholecystitis, resolved with IV antibiotics. No further intervention to be done per patie nt wishes. 3. Colonic abnormalities suspicious for carcinoma. The patient is aware and has refused colonoscop y. 4. Anemia due to endstage renal disease, maintained on outpatient Epogen and iron. 5. Debility, currently being managed by the palliative health care team. 6. Hypertension, currently well controlled. 7. Known ischemic cardiomyopathy well documented by Dr. Perez with known left ventricular ejecti on fraction of 30% to 35%. 8. Status post biventricular implantable cardioverter defibrillator placement months ago. 9. Known coronary artery disease, status post numerous percutaneous coronary angioplasties and sten ts in the past. 10. Status post prior renal transplantation x2. 11. Anxiety, controlled with p.r.n. Xanax. 12. Restless legs syndrome, currently controlled on Requip. 13. Hyperlipidemia. DISPOSITION: Home. FOLLOWUP: Will be with Dr. Johnson and palliative care. DISCHARGE MEDICATIONS: As per the medical reconciliation sheet. CONDITION AT DISCHARGE: Stable and improved. Thank you very much. Dictated By: POP JOHNSON MD, MM/RAYA Conf#: [id number] DID#: [id number]
== END 2017-07-23 18:18 | disposition home health service (06) | DRG 871 ==
LOC: E/R 05:43 → ICU 08:11 → UNDOADMIN 09:49 → ICU 09:49 → TEL 07-09 12:05 → MS1 07-18 19:32
PROVIDERS: ADMIT Internal Medicine; ATTEND Internal Medicine
PROC: 5A1D70Z Performance of Urinary Filtration, Intermittent, Less than 6 Hours Per Day (ICD-10-PCS; principal; 2017-07-05)
PROC: 30233N1 Transfusion of Nonautologous Red Blood Cells into Peripheral Vein, Percutaneous Approach (ICD-10-PCS; 2017-07-15)
DX: A41.9 Sepsis, unspecified organism (principal); I21.4 Non-ST elevation (NSTEMI) myocardial infarction; I50.43 Acute on chronic combined systolic (congestive) and diastolic (congestive) heart failure; T86.12 Kidney transplant failure; N18.6 End stage renal disease; K81.0 Acute cholecystitis; I13.2 Hypertensive heart and chronic kidney disease with heart failure and with stage 5 chronic kidney disease, or end stage renal disease; Z99.2 Dependence on renal dialysis; Z66 Do not resuscitate; Z95.5 Presence of coronary angioplasty implant and graft; D64.9 Anemia, unspecified; I44.7 Left bundle-branch block, unspecified; Z95.810 Presence of automatic (implantable) cardiac defibrillator; G25.81 Restless legs syndrome; E29.0 Testicular hyperfunction
CPT/HCPCS: 36415; 36430; 71010; 71260; 74177; 76700; 76705; 78226; 80053; 80061; 80076; 82550; 82553; 82728; 83540; 83605; 83735; 83880; 84100; 84145; 84403; 84443; 84484; 85025; 85610; 86850; 86870; 86900; 86901; 86920; 87040; 87075; 87081; 90935; 93005; 94640; 94664; 96374; 96375; 97110; 97163; 97530; A9537; J0282; J1071; J1940; J1956; J2060; J2270; J2405; J2543; J2916; J3370; J7060; P9016; P9047; Q4081; Q9967

== ENCOUNTER 2017-08-03 13:42 | Emergency (ER) | payer MEDICARE, OTHER ==
[~2017-08-03] VITALS: Ht 172.7 cm; Wt 71.0 kg
[~2017-08-03 13:42] MED LIST changes: -PANT40TA4 PO
--- NOTE | 2017-08-03 14:04 | ERA ---
ER Documentation Chief Complaint Date/Time DATE: 08/03/17 TIME: 14:03 Chief Complaint Dizziness HPI The patient is a 71-year-old male, presenting to the ER because of dizziness when he got home from dialysis. His was hospitalized in the hospital since last night, he did not see his caregiver. He therefore became panicky and anxious and called 911 to go to the hospital. He feels well at this time, denies any dizziness, chest pain, dyspnea, abdominal pain, vomiting, dysuria. He is under palliative care and was discharged from the hospital just [address] Johnson. 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 Medications Home Meds Active Scripts Docusate Sodium (Dok) 100 Mg Capsule, 100 MG PO TID Y for CONSTIPATION for 30 Days, #100 CAP Prov:POP JOHNSON MD 05/14/17 Ipratropium-Albuterol (Ipratropium-Albuterol) 0.5-3 Mg/3 Ml Ampul.neb, 3 ML HHN Q6H RESP THERAPY for 30 Days, #120 KIT 5 Refills Prov:POP JOHNSON MD 05/14/17 Ropinirole Hcl* (Ropinirole Hcl*) 0.5 Mg Tablet, 0.5 MG PO TID for 90 Days, #90 TAB Prov:POP JOHNSON MD 05/14/17 Losartan Potassium* (Losartan Potassium*) 25 Mg Tablet, 25 MG PO DAILY for 90 Days, TAB 3 Refills Prov:POP JOHNSON MD 02/06/17 Reported Medications Multivit/Ca Carb/B Cmplx/Fa* (Gi-Calvin*) 1 Tab Tab, 1 TAB PO DAILY, TAB TAKE AFTER DIALYSIS (NEPHRO-CALVIN) 04/24/17 Esomeprazole Mag Trihydrate (Nexium) 40 Mg Capsule., 40 MG PO QAM, #30 CAP 04/24/17 Nitroglycerin* (Nitroglycerin* [place]) 400 Mcg/[place] - 12 Gm [place], 1 SPRAY TL Q5M Y for CHEST PAIN, SPRAY 01/28/17 Ranolazine* (Ranexa*) 500 Mg Tab.sr.12h, 500 MG PO Q12, TAB 01/28/17 Sevelamer Carbonate* (Renvela*) 800 Mg Tablet, 0.8 GM PO WITH MEALS, TAB 01/28/17 Zolpidem Tartrate* (Zolpidem Tartrate*) 5 Mg Tablet, 7.5 MG PO QHS Y for INSOMNIA, #30 TAB 12/01/16 Clopidogrel Bisulfate (Clopidogrel) 75 Mg Tablet, 75 MG PO QHS, #30 TAB 12/01/16 Hydrocodone/Acetaminophen ([place] 7.5-325 Tablet) 1 Each Tablet, 1 EACH PO DAILY Y for SEVERE PAIN LEVEL 7-10, TAB 12/01/16 Atorvastatin* (Atorvastatin*) 40 Mg Tablet, 40 MG PO QHS, #30 TAB 12/01/16 Aspirin* (Aspirin* EC) 81 Mg Tablet.dr, 81 MG PO QHS, TAB 12/01/16 Alprazolam* (Alprazolam*) 0.25 Mg Tablet, 0.25 MG PO QHS Y for ANXIETY, TAB 12/01/16 Allopurinol* (Allopurinol*) 100 Mg Tablet, 100 MG PO DAILY, TAB 12/01/16 Allergies Allergies: Coded Allergies: No Known Drug Allergies (Verified Allergy, Unknown, 07/08/17) PMhx/Soc History of Surgery: Yes (kidney transplant failed) Anesthesia Reaction: No Hx Neurological Disorder: No Hx Respiratory Disorders: Yes (on home o2) Hx Cardiac Disorders: Yes (stents, cardiomyopathy, pacemaker, htn, hyperlipid) Hx Psychiatric Problems: No Hx Miscellaneous Medical Probl: Yes (DM, PACEMAKER) Hx Alcohol Use: No Hx Substance Use: No Hx Tobacco Use: No Physical Exam Vitals Vital Signs Date Time Temp Pulse Resp B/P Pulse Ox O2 Delivery O2 Flow Rate FiO2 08/03/17 17:48 98.3 102 20 137/74 100 Mask 10.0 08/03/17 16:46 98.4 102 20 144/85 100 Mask 10.0 08/03/17 14:10 98.5 88 18 137/74 100 Physical Exam Const: No acute distress. Head: Atraumatic. Eyes: Normal Conjunctiva. ENT: Normal External Ears, Nose and Mouth. Neck: Full range of motion. No meningismus. Resp: Clear to auscultation bilaterally. Cardio: Regular rate and rhythm. Abd: Soft, non distended, normal bowel sounds, non tender. Skin: No petechiae or rashes. Back: No midline or flank tenderness. Ext: Left great toe necrotic, erythematous, no discharge Neur: Awake and alert. No focal deficit Psych: Very anxious Result Diagram: 08/03/17 1435 08/03/17 1435 Results 24 hrs Laboratory Tests Test 08/03/17 14:35 White Blood Count 4.810^3/ul Red Blood Count 3.1010^6/ul Hemoglobin 9.7g/dl Hematocrit 31.2% Mean Corpuscular Volume 100.6fl Mean Corpuscular Hemoglobin 31.3pg Mean Corpuscular Hemoglobin Concent 31.1g/dl Red Cell Distribution Width 19.7% Platelet Count 73119^3/UL Mean Platelet Volume 9.5fl Neutrophils % 58.1% Lymphocytes % 28.9% Monocytes % 9.5% Eosinophils % 2.1% Basophils % 1.2% Nucleated Red Blood Cells % 0.0/100WBC Neutrophils # 2.810^3/ul Lymphocytes # 1.410^3/ul Monocytes # 0.510^3/ul Eosinophils # 0.110^3/ul Basophils # 0.110^3/ul Nucleated Red Blood Cells # 0.010^3/ul Sodium Level 139mmol/L Potassium Level 2.9mmol/L Chloride Level 97mmol/L Carbon Dioxide Level 32mmol/L Anion Gap 13 Blood Urea Nitrogen 18mg/dl Creatinine 2.73mg/dl Glucose Level 77mg/dl Calcium Level 8.6mg/dl Current Medications Medications (Trade) Dose Ordered Sig/Leonardo Route PRN Reason Start Time Stop Time Status Last Admin Dose Admin Potassium Chloride (Klor-Con 10) 10 meq ONCE ONCE PO 08/03/17 16:30 08/03/17 16:31 DC 08/03/17 16:54 Potassium Chloride ([place]lor-Con 20) 20 meq STK-MED ONCE PO 08/03/17 16:53 08/03/17 16:54 DC Procedures/[facility] [address] [address] Radiology Main Line: [phone] DIAGNOSTIC IMAGING REPORT Patient: RELL OBANDO : 1945 Age: 71 Sex: M MR #: [id number] DOS: 08/03/17 1416 Ordering MD: RELL COBOS MD Location: E/R Room/Bed: PROCEDURE: XR Chest. CLINICAL INDICATION: shortness of breath TECHNIQUE: Single portable view of the chest was obtained COMPARISON: CR CHEST 04/01/2017 FINDINGS: There is mild cardiomegaly. There is a right-sided pacemaker / AICD in place. There is mild pulmonary vascular congestion. There are bilateral upper lobe and lower lobe infiltrates. There is a [id number] left pleural effusion.. There is no pneumothorax. The bones and soft tissues are unremarkable. RPTAT: AA IMPRESSION: Mild cardiomegaly with moderate pulmonary vascular congestion. Moderate to large left pleural effusion. .Quentin Reyna MD, MD Date Time Electronically viewed and signed by .Quentin Reyna MD, MD on 08/03/2017 14: 49 .S/ CC: RELL COBOS MD EKG: Read by emergency physician Rate/Rhythm: Normal Sinus Rhythm 98 beats/min QRS, ST, T-waves: No ST elevation, no T inversion, PVC, LAD, nonspecific intraventricular conduction block, lateral Q waves Impression: Abnormal EKG . . MEDICAL MAKING DECISION: The patient is a 71-year-old male, presenting with acute dizziness, most likely due to acute anxiety attack, acute hypokalemia. He was treated with potassium chloride 10 mg p.o. for acute hypokalemia. He requested to go to a [facility] because he is unable to care for himself at home. utility worker driver was able to transfer him to a senior living facility. His physician was notified X The differential diagnoses considered include but are not limited to central causes such as cerebellar infarct, cerebellar hemorrhage, cerebellar tumor, acoustic neuroma, peripheral causes such as benign positional vertigo, labyrinthitis, medication, Meniere's disease. Departure Diagnosis: Primary Impression: Dizziness Additional Impressions: Anxiety Hypokalemia Condition: Good Comments Consultation: I discussed the patient with his physician, who agreed with the plan I discussed the findings with the patient. I advised the patient to follow-up with the primary physician in about 1-2 days, sooner if needed and return if any concern. RELL COBOS MD Aug 03, 2017 14:04
[2017-08-03 14:10] VITALS: Ht 172.7 cm; Wt 71.0 kg
[2017-08-03 14:40] LABS: BASOPHIL # 0.1 10^3/ul (0.0-0.1); BASOPHILS % 1.2 % (0.0-2.0); EOSINOPHILS # 0.1 10^3/ul (0.0-0.5); EOSINOPHILS % 2.1 % (0.0-7.0); HEMATOCRIT 31.2 % (42.0-52.0); HEMOGLOBIN 9.7 g/dl (14.0-18.0); LYMPHOCYTES # 1.4 10^3/ul (0.8-2.9); LYMPHOCYTES % 28.9 % (15.0-51.0); MEAN CORPUSCULAR HEMOGLOBIN 31.3 pg (29.0-33.0); MEAN CORPUSCULAR HGB CONC 31.1 g/dl (32.0-37.0); MEAN CORPUSCULAR VOLUME 100.6 fl (82.0-101.0); MEAN PLATELET VOLUME 9.5 fl (7.4-10.4); MONOCYTE # 0.5 10^3/ul (0.3-0.9); MONOCYTES % 9.5 % (0.0-11.0); NEUTROPHIL # 2.8 10^3/ul (1.6-7.5); NEUTROPHILS % 58.1 % (39.0-77.0); PLATELET COUNT 181 10^3/UL (140-415); RED CELL DISTRIBUTION WIDTH 19.7 % (11.5-14.5); WHITE BLOOD COUNT 4.8 10^3/ul (4.8-10.8)
--- NOTE | 2017-08-03 14:50 | RADRPT ---
PROCEDURE: XR Chest. CLINICAL INDICATION: shortness of breath TECHNIQUE: Single portable view of the chest was obtained COMPARISON: CR CHEST 04/01/2017 FINDINGS: There is mild cardiomegaly. There is a right-sided pacemaker / AICD in place. There is mild pulmonary vascular congestion. There are bilateral upper lobe and lower lobe infiltra negar. There is a [id number] left pleural effusion.. There is no pneumothorax. The bones and soft tissues are unremarkable. RPTAT: AA IMPRESSION: Mild cardiomegaly with moderate pulmonary vascular congestion. Moderate to large left pleural effusion. .Quentin Reyna MD, MD Date Time Electronically viewed and signed by .Quentin Reyna MD, MD on 08/03/2017 14:49 .S/
[2017-08-03 14:58] LABS: CALCIUM 8.6 mg/dl (8.4-10.2); CREATININE 2.73 mg/dl (0.61-1.24)
[2017-08-03 15:05] LABS: POTASSIUM 2.9 mmol/L (3.5-5.1)
[2017-08-03] MEDS ORDERED: POTASSIUM CHLORIDE (SR) 10 MEQ TAB PO ONE (16:30)
[2017-08-03] MEDS ORDERED: POTASSIUM CHLORIDE (SR) 20 MEQ TAB PO ONE (16:53)
[2017-08-03 17:48] VITALS: BP 137/74; PULSE 102; RESP 20; TEMP 98.3
== END 2017-08-03 17:54 | disposition home or self-care (01) ==
LOC: E/R 13:42
DX: R42 Dizziness and giddiness (principal); F41.9 Anxiety disorder, unspecified; E87.6 Hypokalemia; I25.10 Atherosclerotic heart disease of native coronary artery without angina pectoris; E11.9 Type 2 diabetes mellitus without complications; I10 Essential (primary) hypertension; Z79.82 Long term (current) use of aspirin; Z95.0 Presence of cardiac pacemaker; Z98.61 Coronary angioplasty status
CPT/HCPCS: 36415; 71010; 80048; 85025

== ENCOUNTER 2017-08-06 07:56 | Emergency (ER) | payer MEDICARE, MEDICAID ==
[~2017-08-06] VITALS: Ht 162.6 cm; Wt 70.0 kg
[2017-08-06] MEDS ORDERED: ONDANSETRON 4 MG INJ IV STA (08:02)
[2017-08-06] MEDS ORDERED: ASPIRIN 81 MG TAB PO STA (08:02)
[2017-08-06] MEDS ORDERED: morphine 4 MG/ML VIAL IV STA (08:02)
[2017-08-06 08:05] VITALS: Ht 162.6 cm; Wt 70.0 kg
--- NOTE | 2017-08-06 08:39 | RADRPT ---
PROCEDURE: XR Chest. CLINICAL INDICATION: Chest pain . TECHNIQUE: Single frontal chest x-ray. COMPARISON: 08/03/2017 FINDINGS: Right-sided biventricular cardiac pacer is in place. . Cardiomegaly with decrease hilar vascular con gestion and perihilar edema or infiltrates is noted.. Residual left perihilar infiltrate and modera te pleural effusion is present improved since prior exam. Calcific atherosclerosis of the aorta is p resent. Cardiomediastinal silhouette is stable.. The osseous structures are intact. IMPRESSION: Cardiomegaly with right-sided biventricular cardiac pacer in place. Decreased hilar congestion and perihilar edema or infiltrates. Decreased moderate left pleural effusion.. RPTAT: QQ .Eugene Willis MD, MD Date Time Electronically viewed and signed by .Eugene Willis MD, MD on 08/06/2017 08:38 .L/
[2017-08-06 09:04] LABS: BASOPHIL # 0.1 10^3/ul (0.0-0.1); BASOPHILS % 0.9 % (0.0-2.0); EOSINOPHILS # 0.2 10^3/ul (0.0-0.5); EOSINOPHILS % 2.2 % (0.0-7.0); HEMOGLOBIN 10.9 g/dl (14.0-18.0); LYMPHOCYTES # 1.6 10^3/ul (0.8-2.9); LYMPHOCYTES % 23.3 % (15.0-51.0); MEAN CORPUSCULAR HEMOGLOBIN 30.5 pg (29.0-33.0); MEAN CORPUSCULAR HGB CONC 29.5 g/dl (32.0-37.0); MEAN CORPUSCULAR VOLUME 103.6 fl (82.0-101.0); MEAN PLATELET VOLUME 10.5 fl (7.4-10.4); MONOCYTE # 0.5 10^3/ul (0.3-0.9); NEUTROPHIL # 4.5 10^3/ul (1.6-7.5); NEUTROPHILS % 66.5 % (39.0-77.0); PLATELET COUNT 214 10^3/UL (140-415); RED BLOOD COUNT 3.57 10^6/ul (4.70-6.10); RED CELL DISTRIBUTION WIDTH 19.6 % (11.5-14.5); WHITE BLOOD COUNT 6.7 10^3/ul (4.8-10.8)
[2017-08-06 09:11] LABS: CALCIUM 9.3 mg/dl (8.4-10.2); CREATININE 3.41 mg/dl (0.61-1.24)
[2017-08-06 09:22] LABS: TROPONIN-I 0.057 ng/ml (0.00-0.12)
--- NOTE | 2017-08-06 10:28 | ERD ---
ER Documentation Chief Complaint Chief Complaint R90, Ashleigh Nuñez CP tightness since 644, w/sob, pt a&ox4 HPI This is a 71-year-old male with multiple medical problems including end-stage renal disease on dialysis Thursday and Thursday, anemia, hypertension, ischemic cardiomyopathy with EF 30%, multiple stents and prior renal transplant who presents with multiple complaints but includes chest pain. The patient describes chest tightness that was pressure-like and consistent with his anginal equivalent around 645 this morning. Was given aspirin and nitroglycerin via EMS with improved symptoms. He only has 1 out of 10 pain currently. He denies any migratory pain or mid back pain, no fevers chills or cough. He denies any pleuritic pain. ROS All systems reviewed and are negative except as per history of present illness. Medications Home Meds Active Scripts Docusate Sodium (Dok) 100 Mg Capsule, 100 MG PO TID Y for CONSTIPATION for 30 Days, #100 CAP Prov:POP JOHNSON MD 05/14/17 Ipratropium-Albuterol (Ipratropium-Albuterol) 0.5-3 Mg/3 Ml Ampul.neb, 3 ML HHN Q6H RESP THERAPY for 30 Days, #120 KIT 5 Refills Prov:POP JOHNSON MD 05/14/17 Ropinirole Hcl* (Ropinirole Hcl*) 0.5 Mg Tablet, 0.5 MG PO TID for 90 Days, #90 TAB Prov:POP JOHNSON MD 05/14/17 Losartan Potassium* (Losartan Potassium*) 25 Mg Tablet, 25 MG PO DAILY for 90 Days, TAB 3 Refills Prov:POP JOHNSON MD 02/06/17 Reported Medications Multivit/Ca Carb/B Cmplx/Fa* (Gi-Calvin*) 1 Tab Tab, 1 TAB PO DAILY, TAB TAKE AFTER DIALYSIS (NEPHRO-CALVIN) 04/24/17 Esomeprazole Mag Trihydrate (Nexium) 40 Mg Capsule.dr, 40 MG PO QAM, #30 CAP 04/24/17 Nitroglycerin* (Nitroglycerin* [place]) 400 Mcg/[place] - 12 Gm [place], 1 SPRAY TL Q5M Y for CHEST PAIN, SPRAY 01/28/17 Ranolazine* (Ranexa*) 500 Mg Tab.sr.12h, 500 MG PO Q12, TAB 01/28/17 Sevelamer Carbonate* (Renvela*) 800 Mg Tablet, 0.8 GM PO WITH MEALS, TAB 01/28/17 Zolpidem Tartrate* (Zolpidem Tartrate*) 5 Mg Tablet, 7.5 MG PO QHS Y for INSOMNIA, #30 TAB 12/01/16 Clopidogrel Bisulfate (Clopidogrel) 75 Mg Tablet, 75 MG PO QHS, #30 TAB 12/01/16 Hydrocodone/Acetaminophen ([place] 7.5-325 Tablet) 1 Each Tablet, 1 EACH PO DAILY Y for SEVERE PAIN LEVEL 7-10, TAB 12/01/16 Atorvastatin* (Atorvastatin*) 40 Mg Tablet, 40 MG PO QHS, #30 TAB 12/01/16 Aspirin* (Aspirin* EC) 81 Mg Tablet.dr, 81 MG PO QHS, TAB 12/01/16 Alprazolam* (Alprazolam*) 0.25 Mg Tablet, 0.25 MG PO QHS Y for ANXIETY, TAB 12/01/16 Allopurinol* (Allopurinol*) 100 Mg Tablet, 100 MG PO DAILY, TAB 12/01/16 Allergies Allergies: Coded Allergies: No Known Drug Allergies (Verified Allergy, Unknown, 07/08/17) PMhx/Soc History of Surgery: Yes (kidney transplant failed) Anesthesia Reaction: No Hx Neurological Disorder: No Hx Respiratory Disorders: Yes (on home o2) Hx Cardiac Disorders: Yes (stents, cardiomyopathy, pacemaker, htn, hyperlipid) Hx Psychiatric Problems: No Hx Miscellaneous Medical Probl: Yes (DM, PACEMAKER) Hx Alcohol Use: No Hx Substance Use: No Hx Tobacco Use: No Smoking Status: Never smoker FmHx Family History: coronary disease Physical Exam Vitals Vital Signs Date Time Temp Pulse Resp B/P Pulse Ox O2 Delivery O2 Flow Rate FiO2 08/06/17 08:05 Nasal Cannula 2 08/06/17 08:05 97.6 94 18 142/80 100 Physical Exam General: Well developed, well nourished, no acute distress Head: Normocephalic, atraumatic. Eyes: Pupils equally reactive, EOM intact ENT: Moist mucous membranes Neck: Supple, no lymphadenopathy Respiratory: Lungs clear bilaterally, no distress Cardiovascular: RRR, no murmurs, rubs, or gallops Abdominal: Soft, non-tender, non-distended, no peritoneal signs : Deferred MSK: Mild bilateral lower extremity pitting edema, no unilateral swelling, 5/5 strength Neurologic: Alert and oriented, moving all extremities, normal speech, no focal weakness, no cerebellar signs Skin: No rash Psych: Normal mood Result Diagram: 08/06/17 0820 08/06/17 0820 Results 24 hrs Laboratory Tests Test 08/06/17 08:20 White Blood Count 6.710^3/ul Red Blood Count 3.5710^6/ul Hemoglobin 10.9g/dl Hematocrit 37.0% Mean Corpuscular Volume 103.6fl Mean Corpuscular Hemoglobin 30.5pg Mean Corpuscular Hemoglobin Concent 29.5g/dl Red Cell Distribution Width 19.6% Platelet Count 14730^3/UL Mean Platelet Volume 10.5fl Neutrophils % 66.5% Lymphocytes % 23.3% Monocytes % 7.0% Eosinophils % 2.2% Basophils % 0.9% Nucleated Red Blood Cells % 0.0/100WBC Neutrophils # 4.510^3/ul Lymphocytes # 1.610^3/ul Monocytes # 0.510^3/ul Eosinophils # 0.210^3/ul Basophils # 0.110^3/ul Nucleated Red Blood Cells # 0.010^3/ul Sodium Level 141mmol/L Potassium Level 4.0mmol/L Chloride Level 93mmol/L Carbon Dioxide Level 35mmol/L Anion Gap 17 Blood Urea Nitrogen 27mg/dl Creatinine 3.41mg/dl Glucose Level 94mg/dl Calcium Level 9.3mg/dl Troponin I 0.057ng/ml Current Medications Medications (Trade) Dose Ordered Sig/Leonardo Route PRN Reason Start Time Stop Time Status Last Admin Dose Admin Aspirin (Aspirin) 162 mg ONCE STAT PO 08/06/17 08:02 08/06/17 08:03 DC Morphine Sulfate (morphine) 4 mg ONCE STAT IV 08/06/17 08:02 08/06/17 08:03 DC 08/06/17 08:30 Ondansetron HCl (Zofran Inj) 4 mg ONCE STAT IV 08/06/17 08:02 08/06/17 08:03 DC 08/06/17 08:29 Procedures/MDM EKG, MONITORS, & DIAGNOSTIC IMAGING: EKG: I reviewed and interpreted a 12-lead EKG. Rhythm: Normal sinus rhythm Ectopy: None Intervals: No abnormalities ST segments: No elevations or depressions T waves: No contiguous inversions Repeat EKG: EKG: I reviewed and interpreted a 12-lead EKG. Rhythm: Normal sinus rhythm Ectopy: PVC Intervals: No abnormalities ST segments: No elevations or depressions T waves: No contiguous inversions Chest x-ray: I reviewed and interpreted a 1 view of the chest Mediastinum: No enlargement Cardiac silhouette: No cardiomegaly Airspace: Clear lung wright bilaterally without evidence of pneumothorax Bones: No evidence of fracture LAB INTERPRETATION: chronic renal insufficiency noted, negative trop. MEDICAL DECISION MAKING: The patient's history, physical exam and clinical presentation is concerning for possible cardiogenic etiology and acute coronary syndrome. The patient has multiple risk factors that raise my concern for cardiac etiology including cardiac ischemia and cardiomyopathy. However, the patient does have recent hospitalizations for chest pain that have been negative. Regardless, the patient is significantly high risk and warrants repeat hospitalization. The patient does have a report of possible colonic malignancy but no evidence of pulmonary embolism currently. Based on the patient's clinical exam and history and risk factors, I have a much lower clinical concern for pulmonary embolism, acute aortic dissection, pneumothorax, pneumonia, cardiac tamponade HEART Score: 6 MACE Rate: 16.6% Shared Decision Making: We had a conversation regarding risk stratification, MACE rate, and the risks, benefits, alternatives of disposition planning options. Disposition planning: Strong recommendation for hospitalization. ER COURSE: The patient received aspirin prior to arrival. He was given pain medication here in the emergency room and is now chest pain-free. The patient does report that he is DNR but does not have a POLST form. I kept the patient and/or family informed of laboratory and diagnostic imaging results throughout the emergency room course. DISPOSITION PLAN: Telemetry admission for management of chest pain to rule out acute coronary syndrome, serial enzymes, risk stratification and consideration of provocative testing CONSULTATION: Accepting care team and consultations: I discussed the current laboratory data, diagnostic imaging and emergency care provided. Admitting team: Dr. Johnson Admitting team indication: Insurance directed Departure Diagnosis: Primary Impression: Chest pain Chest pain type: unspecified Qualified Code: R07.9 - Chest pain, unspecified type Additional Impression: ESRD (end stage renal disease) on dialysis Condition: Stable RIMMA ARRIOLA MD Aug 06, 2017 10:28
[2017-08-06 15:37] LABS: CREATINE KINASE < 20 IU/L (23-200)
[2017-08-06 15:48] LABS: TROPONIN-I 0.031 ng/ml (0.00-0.12)
[2017-08-06 15:49] LABS: CK-MB 0.73 ng/ml (0.0-2.4)
[2017-08-06 16:21] VITALS: TEMP 98.1
[2017-08-06 19:03] VITALS: BP 136/74; PULSE 101; RESP 19
== END 2017-08-06 19:03 | disposition home or self-care (01) ==
LOC: E/R 07:56
DX: R07.9 Chest pain, unspecified (principal); I12.0 Hypertensive chronic kidney disease with stage 5 chronic kidney disease or end stage renal disease; N18.6 End stage renal disease; E11.9 Type 2 diabetes mellitus without complications; Z79.82 Long term (current) use of aspirin; Z98.61 Coronary angioplasty status; Z99.2 Dependence on renal dialysis
CPT/HCPCS: 36415; 71010; 80048; 82550; 82553; 84484; 85025; 96374; 96375; 99285; J2270; J2405

== ENCOUNTER 2017-08-10 19:25 | Emergency (ER) | payer MEDICARE, OTHER ==
[~2017-08-10] VITALS: Ht 170.2 cm; Wt 67.0 kg
[2017-08-10 19:27] VITALS: Ht 170.2 cm; Wt 67.0 kg
--- NOTE | 2017-08-10 19:28 | ERD ---
ER Documentation Chief Complaint Chief Complaint sob HPI The patient is a 71-year-old male, presenting to the ER because of shortness of breath. He was recently discharged from the hospital. He complains that the A/ C was not working and he felt very hot at home. The EMS stated that the apartment was very hot, as soon as he was outside he felt a lot better and denies any symptom in the emergency department He feels well at this time, denies any dizziness, chest pain, dyspnea, abdominal pain, vomiting, dysuria. He is under palliative care and was discharged from the hospital just a few days ago by Dr. Boyce. 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 Medications Home Meds Active Scripts Docusate Sodium (Dok) 100 Mg Capsule, 100 MG PO TID Y for CONSTIPATION for 30 Days, #100 CAP Prov:POP BOYCE MD 05/14/17 Ipratropium-Albuterol (Ipratropium-Albuterol) 0.5-3 Mg/3 Ml Ampul.neb, 3 ML HHN Q6H RESP THERAPY for 30 Days, #120 KIT 5 Refills Prov:POP BOYCE MD 05/14/17 Ropinirole Hcl* (Ropinirole Hcl*) 0.5 Mg Tablet, 0.5 MG PO TID for 90 Days, #90 TAB Prov:POP BOYCE MD 05/14/17 Losartan Potassium* (Losartan Potassium*) 25 Mg Tablet, 25 MG PO DAILY for 90 Days, TAB 3 Refills Prov:POP BOYCE MD 02/06/17 Reported Medications Multivit/Ca Carb/B Cmplx/Fa* (Gi-Calvin*) 1 Tab Tab, 1 TAB PO DAILY, TAB TAKE AFTER DIALYSIS (NEPHRO-CALVIN) 04/24/17 Esomeprazole Mag Trihydrate (Nexium) 40 Mg Capsule., 40 MG PO QAM, #30 CAP 04/24/17 Nitroglycerin* (Nitroglycerin* [place]) 400 Mcg/[place] - 12 Gm [place], 1 SPRAY TL Q5M Y for CHEST PAIN, SPRAY 01/28/17 Ranolazine* (Ranexa*) 500 Mg Tab.sr.12h, 500 MG PO Q12, TAB 01/28/17 Sevelamer Carbonate* (Renvela*) 800 Mg Tablet, 0.8 GM PO WITH MEALS, TAB 01/28/17 Zolpidem Tartrate* (Zolpidem Tartrate*) 5 Mg Tablet, 7.5 MG PO QHS Y for INSOMNIA, #30 TAB 12/01/16 Clopidogrel Bisulfate (Clopidogrel) 75 Mg Tablet, 75 MG PO QHS, #30 TAB 12/01/16 Hydrocodone/Acetaminophen ([place] 7.5-325 Tablet) 1 Each Tablet, 1 EACH PO DAILY Y for SEVERE PAIN LEVEL 7-10, TAB 12/01/16 Atorvastatin* (Atorvastatin*) 40 Mg Tablet, 40 MG PO QHS, #30 TAB 12/01/16 Aspirin* (Aspirin* EC) 81 Mg Tablet.dr, 81 MG PO QHS, TAB 12/01/16 Alprazolam* (Alprazolam*) 0.25 Mg Tablet, 0.25 MG PO QHS Y for ANXIETY, TAB 12/01/16 Allopurinol* (Allopurinol*) 100 Mg Tablet, 100 MG PO DAILY, TAB 12/01/16 Allergies Allergies: Coded Allergies: No Known Drug Allergies (Verified Allergy, Unknown, 07/08/17) PMhx/Soc History of Surgery: Yes (kidney transplant failed) Anesthesia Reaction: No Hx Neurological Disorder: No Hx Respiratory Disorders: Yes (on home o2) Hx Cardiac Disorders: Yes (stents, cardiomyopathy, pacemaker, htn, hyperlipid) Hx Psychiatric Problems: No Hx Miscellaneous Medical Probl: Yes (DM, PACEMAKER) Hx Alcohol Use: No Hx Substance Use: No Hx Tobacco Use: No Physical Exam Vitals Vital Signs Date Time Temp Pulse Resp B/P Pulse Ox O2 Delivery O2 Flow Rate FiO2 08/10/17 19:35 97.8 100 18 131/75 100 Nasal Cannula 2.0 08/10/17 19:35 Nasal Cannula 2 08/10/17 19:27 97.8 107 18 128/64 96 Physical Exam Const: No acute distress.Anxious Head: Atraumatic. Eyes: Normal Conjunctiva. ENT: Normal External Ears, Nose and Mouth. Neck: Full range of motion. No meningismus. Resp: Clear to auscultation bilaterally. Cardio: Regular rate and rhythm. Abd: Soft, non distended, normal bowel sounds, non tender. Skin: No petechiae or rashes. Back: No midline or flank tenderness. Ext: No cyanosis, or edema. Neur: Awake and alert. No focal deficit Psych: Depressed. Result Diagram: 08/10/17200208/10/172002 Results 24 hrs Laboratory Tests Test 08/10/17 20:03 White Blood Count 5.210^3/ul Red Blood Count 3.5010^6/ul Hemoglobin 10.6g/dl Hematocrit 35.7% Mean Corpuscular Volume 102.0fl Mean Corpuscular Hemoglobin 30.3pg Mean Corpuscular Hemoglobin Concent 29.7g/dl Red Cell Distribution Width 18.5% Platelet Count 98682^3/UL Mean Platelet Volume 10.1fl Neutrophils % 61.2% Lymphocytes % 27.5% Monocytes % 8.4% Eosinophils % 2.1% Basophils % 0.6% Nucleated Red Blood Cells % 0.0/100WBC Neutrophils # 3.210^3/ul Lymphocytes # 1.410^3/ul Monocytes # 0.410^3/ul Eosinophils # 0.110^3/ul Basophils # 0.010^3/ul Nucleated Red Blood Cells # 0.010^3/ul Sodium Level 139mmol/L Potassium Level 3.6mmol/L Chloride Level 96mmol/L Carbon Dioxide Level 32mmol/L Anion Gap 15 Blood Urea Nitrogen 28mg/dl Creatinine 3.48mg/dl Glucose Level 108mg/dl Calcium Level 8.7mg/dl Phosphorus Level 2.5mg/dl Magnesium Level 1.9mg/dl Procedures/MDM EKG: Read by emergency physician Rate/Rhythm: Sinus tachycardia 104 beats/min QRS, ST, T-waves: No ST elevation, no T inversion, PVC, LAD, nonspecific intraventricular block, lateral Q waves Impression: Abnormal EKG Portable chest x-ray show left pleural effusion, no pneumothorax Official cxr per radiologist is pending MEDICAL MAKING DECISION: The patient is a 71-year-old male, presenting with acute panic attack. He is comfortable and is stable for outpatient f/u. He is back to himself and requesting to go home The differential diagnoses considered include but are not limited to asthma, COPD, pneumonia, pulmonary embolus, pleural effusion, congestive heart failure. Departure Diagnosis: Primary Impression: Panic attack Additional Impression: Anemia Condition: Good Comments I discussed the findings with the patient. I advised the patient to follow-up with the primary physician in about 1-2 days, sooner if needed and return if any concern. RELL COBOS MD Aug 10, 2017 19:28
[2017-08-10 19:35] VITALS: BP 131/75; PULSE 100; RESP 18; TEMP 97.8
[2017-08-10 20:17] LABS: BASOPHILS % 0.6 % (0.0-2.0); EOSINOPHILS # 0.1 10^3/ul (0.0-0.5); EOSINOPHILS % 2.1 % (0.0-7.0); HEMATOCRIT 35.7 % (42.0-52.0); HEMOGLOBIN 10.6 g/dl (14.0-18.0); LYMPHOCYTES # 1.4 10^3/ul (0.8-2.9); LYMPHOCYTES % 27.5 % (15.0-51.0); MEAN CORPUSCULAR HEMOGLOBIN 30.3 pg (29.0-33.0); MEAN CORPUSCULAR HGB CONC 29.7 g/dl (32.0-37.0); MEAN PLATELET VOLUME 10.1 fl (7.4-10.4); MONOCYTE # 0.4 10^3/ul (0.3-0.9); MONOCYTES % 8.4 % (0.0-11.0); NEUTROPHIL # 3.2 10^3/ul (1.6-7.5); NEUTROPHILS % 61.2 % (39.0-77.0); PLATELET COUNT 210 10^3/UL (140-415); RED CELL DISTRIBUTION WIDTH 18.5 % (11.5-14.5); WHITE BLOOD COUNT 5.2 10^3/ul (4.8-10.8)
[2017-08-10 20:37] LABS: CALCIUM 8.7 mg/dl (8.4-10.2); CREATININE 3.48 mg/dl (0.61-1.24); MAGNESIUM 1.9 mg/dl (1.7-2.5); PHOSPHORUS 2.5 mg/dl (2.5-4.9); POTASSIUM 3.6 mmol/L (3.5-5.1)
--- NOTE | 2017-08-10 22:03 | RADRPT ---
PROCEDURE: XR Chest. CLINICAL INDICATION: Shortness of breath TECHNIQUE: Single AP portable chest. COMPARISON: 04/01/2017 Chest x-ray FINDINGS: The cardiac silhouette is more changed with the left cardiac border obscured by pleural effusion and /or consolidation. Patchy airspace opacity throughout the entire left lung and large pleural effusio n. Right subclavian dual chamber cardiac pacemaker in place. Right axillary arterial endovascular st ent. Atherosclerotic calcification of the aorta. Marked right vascular congestion . No pneumothorax . The osseous structures and soft tissues are unremarkable. IMPRESSION: 1. . Opacification left hemithorax compatible with large left pleural effusion. Right lung vascular congestion. 2. Right chest pacemaker in place. RPTAT:AAJJ Physician Ely Date Time Electronically viewed and signed by Physician Ely on 08/10/2017 22:03 NISHA/
== END 2017-08-10 22:41 | disposition home or self-care (01) ==
LOC: E/R 19:25
DX: F41.0 Panic disorder [episodic paroxysmal anxiety] (principal); D64.9 Anemia, unspecified; E11.9 Type 2 diabetes mellitus without complications; I10 Essential (primary) hypertension; I25.10 Atherosclerotic heart disease of native coronary artery without angina pectoris; Z79.82 Long term (current) use of aspirin; Z95.0 Presence of cardiac pacemaker; Z98.61 Coronary angioplasty status
CPT/HCPCS: 36415; 71010; 80048; 83735; 84100; 85025; 93005

== ENCOUNTER 2017-08-19 11:34 | Inpatient (IN) | payer MEDICARE, OTHER ==
[~2017-08-19] VITALS: Ht 170.2 cm; Wt 73.4 kg
[2017-08-19] MEDS ORDERED: ALBUTEROL 0.083% (NEB) 2.5 MG/3 ML AMP NEB STA (11:40)
[2017-08-19] MEDS ORDERED: IPRATROPIUM (NEB) 0.5 MG/2.5 ML AMP NEB STA (11:40)
--- NOTE | 2017-08-19 12:43 | RADRPT ---
PROCEDURE: XR Chest. CLINICAL INDICATION: Chest Pain. TECHNIQUE: Single frontal view of the chest was obtained COMPARISON: 08/10/2017 FINDINGS: Atherosclerotic changes are seen in the aortic arch. The cardiac silhouette is unremarkable. A right subclavian pacemaker is again seen. There has been interval worsening to a large left pleural effusion which occupies approximately 80% of the left hemithorax. There is associated compressive atelectasis. There has been interval worsening to a patchy infiltrate in the right lower lobe. The right pleural space is clear. The bones and soft tissue show no acute change. IMPRESSION: 1. When compared to the previous study from 08/10/2017, there has been interval worsening to the la rge left pleural effusion which occupies approximately 80% of the left hemithorax. There is associat ed compressive atelectasis. 2. Interval worsening to a patchy infiltrate in the right lower lobe. RPTAT:AAJJ Physician Allie Date Time Electronically viewed and signed by Steven Francis Physician on 08/19/2017 12:43 NANCY/
[2017-08-19] MEDS ORDERED: NITR0.4T32 SL (13:24)
[2017-08-19] MEDS ORDERED: PANT40TA4 PO (13:25)
[2017-08-19] MEDS ORDERED: POTASSIUM CHLORIDE (SR) 20 MEQ TAB PO STA (13:35)
--- NOTE | 2017-08-19 13:49 | ERD ---
ER Documentation Chief Complaint Chief Complaint [id number] after receiving dialysis today HPI This is a 71-year-old male well-known to this emergency department who presents with as of breath after dialysis. The patient is a very poor historian. He states that he is feeling short of breath after dialysis and denies any pleuritic pain chest pain no fevers chills or cough. He otherwise has no complaints. ROS All systems reviewed and are negative except as per history of present illness. Medications Home Meds Active Scripts Losartan Potassium* (Losartan Potassium*) 25 Mg Tablet, 25 MG PO DAILY for 90 Days, TAB 3 Refills Prov:POP BOYCE MD 02/06/17 Reported Medications Pantoprazole* (Pantoprazole*) 40 Mg Tablet.dr, 40 MG PO AC BREAKFAST, TAB 08/19/17 Nitroglycerin* (Nitroglycerin* SL) 0.4 Mg Tab.subl, 0.4 MG SL Q5MIN Y for CHEST PAIN, BOTTLE 08/19/17 Ranolazine* (Ranexa*) 500 Mg Tab.sr.12h, 500 MG PO Q12, TAB 01/28/17 Zolpidem Tartrate* (Zolpidem Tartrate*) 5 Mg Tablet, 7.5 MG PO QHS Y for INSOMNIA, #30 TAB 12/01/16 Clopidogrel Bisulfate (Clopidogrel) 75 Mg Tablet, 75 MG PO QHS, #30 TAB 12/01/16 Alprazolam* (Alprazolam*) 0.25 Mg Tablet, 0.25 MG PO QHS Y for ANXIETY, TAB 12/01/16 Allopurinol* (Allopurinol*) 100 Mg Tablet, 100 MG PO DAILY, TAB 12/01/16 Discontinued Reported Medications Multivit/Ca Carb/B Cmplx/Fa* (Gi-Calvin*) 1 Tab Tab, 1 TAB PO DAILY, TAB TAKE AFTER DIALYSIS (NEPHRO-CALVIN) 04/24/17 Esomeprazole Mag Trihydrate (Nexium) 40 Mg Capsule.dr, 40 MG PO QAM, #30 CAP 04/24/17 Nitroglycerin* (Nitroglycerin* [place]) 400 Mcg/[place] - 12 Gm [place], 1 SPRAY TL Q5M Y for CHEST PAIN, SPRAY 01/28/17 Sevelamer Carbonate* (Renvela*) 800 Mg Tablet, 0.8 GM PO WITH MEALS, TAB 01/28/17 Hydrocodone/Acetaminophen ([place] 7.5-325 Tablet) 1 Each Tablet, 1 EACH PO DAILY Y for SEVERE PAIN LEVEL 7-10, TAB 12/01/16 Atorvastatin* (Atorvastatin*) 40 Mg Tablet, 40 MG PO QHS, #30 TAB 12/01/16 Aspirin* (Aspirin* EC) 81 Mg Tablet.dr, 81 MG PO QHS, TAB 12/01/16 Discontinued Scripts Docusate Sodium (Dok) 100 Mg Capsule, 100 MG PO TID Y for CONSTIPATION for 30 Days, #100 CAP Prov:POP BOYCE MD 05/14/17 Ipratropium-Albuterol (Ipratropium-Albuterol) 0.5-3 Mg/3 Ml Ampul.neb, 3 ML HHN Q6H RESP THERAPY for 30 Days, #120 KIT 5 Refills Prov:POP BOYCE MD 05/14/17 Ropinirole Hcl* (Ropinirole Hcl*) 0.5 Mg Tablet, 0.5 MG PO TID for 90 Days, #90 TAB Prov:POP BOYCE MD 05/14/17 Allergies Allergies: Coded Allergies: No Known Drug Allergies (Verified Allergy, Unknown, 08/19/17) PMhx/Soc History of Surgery: Yes (kidney transplant failed) Anesthesia Reaction: No Hx Neurological Disorder: No Hx Respiratory Disorders: Yes (on home o2) Hx Cardiac Disorders: Yes (stents, cardiomyopathy, pacemaker, htn, hyperlipid) Hx Psychiatric Problems: No Hx Miscellaneous Medical Probl: Yes (DIALYSIS - M, W, F), PACEMAKER) Hx Alcohol Use: No Hx Substance Use: No Hx Tobacco Use: No FmHx Family History: No diabetes Physical Exam Vitals Vital Signs Date Time Temp Pulse Resp B/P Pulse Ox O2 Delivery O2 Flow Rate FiO2 08/19/17 12:42 Simple Mask 10 08/19/17 12:18 98.7 105 18 147/96 100 08/19/17 12:05 10.0 08/19/17 12:05 102 18 100 Simple Mask 10.0 08/19/17 12:05 Nasal Cannula Physical Exam General: Well developed, well nourished, no acute distress Head: Normocephalic, atraumatic. Eyes: Pupils equally reactive, EOM intact ENT: Moist mucous membranes Neck: Supple, no lymphadenopathy Respiratory: No distress, decreased aeration in the left lung field Cardiovascular: RRR, no murmurs, rubs, or gallops Abdominal: Soft, non-tender, non-distended, no peritoneal signs : Deferred MSK: No edema, no unilateral swelling, 5/5 strength Neurologic: Alert and oriented, moving all extremities, normal speech, no focal weakness, no cerebellar signs Skin: No rash Psych: Normal mood Result Diagram: 08/19/17 1200 08/19/17 1200 Results 24 hrs Laboratory Tests Test 08/19/17 12:00 White Blood Count 6.810^3/ul Red Blood Count 3.7210^6/ul Hemoglobin 11.3g/dl Hematocrit 37.8% Mean Corpuscular Volume 101.6fl Mean Corpuscular Hemoglobin 30.4pg Mean Corpuscular Hemoglobin Concent 29.9g/dl Red Cell Distribution Width 17.2% Platelet Count 19125^3/UL Mean Platelet Volume 9.7fl Neutrophils % 69.4% Lymphocytes % 22.0% Monocytes % 5.6% Eosinophils % 2.1% Basophils % 0.6% Nucleated Red Blood Cells % 0.0/100WBC Neutrophils # 4.710^3/ul Lymphocytes # 1.510^3/ul Monocytes # 0.410^3/ul Eosinophils # 0.110^3/ul Basophils # 0.010^3/ul Nucleated Red Blood Cells # 0.010^3/ul Sodium Level 144mmol/L Potassium Level 2.7mmol/L Chloride Level 113mmol/L Carbon Dioxide Level 27mmol/L Anion Gap 7 Blood Urea Nitrogen 16mg/dl Creatinine 2.07mg/dl Glucose Level 72mg/dl Calcium Level 6.1mg/dl Troponin I 0.027ng/ml Current Medications Medications (Trade) Dose Ordered Sig/Leonardo Route PRN Reason Start Time Stop Time Status Last Admin Dose Admin Albuterol (Proventil 0.083% (Neb)) 2.5 mg ONCE STAT NEB 08/19/17 11:40 08/19/17 11:42 DC 08/19/17 12:03 Ipratropium [place] (Atrovent 0.02% (Neb)) 0.5 mg ONCE STAT NEB 08/19/17 11:40 08/19/17 11:42 DC 08/19/17 12:03 Potassium Chloride (Klor-Con 20) 20 meq ONCE STAT PO 08/19/17 13:35 08/19/17 13:36 DC Ondansetron HCl (Zofran Inj) 4 mg BRIDGE ORDER PRN IV NAUSEA AND/OR VOMITING 08/19/17 14:00 08/20/17 13:59 Acetaminophen (Tylenol Tab) 650 mg ER BRIDGE PRN PO MILD PAIN/FEVER 08/19/17 14:00 08/20/17 13:59 Procedures/MDM EKG, MONITORS, & DIAGNOSTIC IMAGING: EKG: I reviewed and interpreted a 12-lead EKG. Rhythm: Normal sinus rhythm Ectopy: None Intervals: No abnormalities, left bundle branch block ST segments: No elevations or depressions T waves: No contiguous inversions EKG: I reviewed and interpreted a 12-lead EKG. Rhythm: Normal sinus rhythm Ectopy: None Intervals: No abnormalities, left bundle branch block ST segments: No elevations or depressions T waves: No contiguous inversions Chest x-ray: I reviewed and interpreted a 1 view of the chest Mediastinum: No enlargement Cardiac silhouette: No cardiomegaly Airspace: Significant 80-90% left pleural effusion Bones: No evidence of fracture PROCEDURES: Peripheral IV Insertion: Indication: Difficult IV access Location: Antecubital fossa, right Attempts: 1 Angiocath-type: 18 The patient was consented prior to procedure and states understanding of risks, benefits, alternatives. Verbal consent was provided Sterile procedure was used to insert a peripheral IV. Indication, location and Angiocath-type are noted above. Ultrasound guidance was used to assist in the insertion of the Angiocath. Return of dark nonpulsatile blood was obtained, normal saline flushed through the Angiocath which was then secured to the skin. The patient tolerated the procedure well without complications. Emergency Bedside Ultrasound: The patient was verbally consented prior to procedure and understands the risks , benefits, and alternatives. The patient is agreeable to procedure and has given verbal consent. Indication: Peripheral IV insertion Probe Type: Linear Findings: Dynamic ultrasound utilized with compression technique with both linear and horizontal views. The images were printed off and placed on a paper document that will be scanned into the chart. The patient tolerated the procedure well and there were no complications. LAB INTERPRETATION: No significant lab abnormalities other than slight hypokalemia, gentle repletion orally was provided MEDICAL DECISION MAKING: The patient presents for shortness of breath. The patient has decreased lung sounds on the left concerning for effusion, less concern for pneumothorax. Very low clinical concern for pneumonia, acute coronary syndrome. The patient has multiple visits to the emergency room for similar symptoms. ER COURSE: X-ray imaging shows worsening left-sided pleural effusion that may benefit from thoracentesis. The patient will be admitted for further management of this, oral potassium repleted based on conversation with the admitting team. I kept the patient and/or family informed of laboratory and diagnostic imaging results throughout the emergency room course. DISPOSITION PLAN: Medical surgical admission for management of shortness of breath and large left- sided pleural effusion CONSULTATION: Accepting care team and consultations: I discussed the current laboratory data, diagnostic imaging and emergency care provided. Admitting team: Dr. Gamez Admitting team indication: Insurance directed Consulting services: Dr. Anaya Departure Diagnosis: Primary Impression: Pleural effusion Additional Impressions: End stage renal disease on dialysis Hypokalemia Condition: Stable RIMMA ARRIOLA MD Aug 19, 2017 13:49
[2017-08-19] MEDS ORDERED: ONDANSETRON 4 MG INJ IV PRN (14:00)
[2017-08-19] MEDS ORDERED: ACETAMINOPHEN 325 MG TAB PO PRN ×2 (14:00→19:00)
[2017-08-19 16:56] VITALS: TEMP 98.5
[2017-08-19 17:28] VITALS: Ht 170.2 cm; Wt 73.4 kg
[2017-08-19 17:32] VITALS: BP 151/74; PULSE 115; RESP 17
[2017-08-19 17:36] VITALS: PULSE 114
[2017-08-19] MEDS ORDERED: ALPRAZOLAM 0.25 MG TAB PO PRN (18:30)
[2017-08-19] MEDS ORDERED: NACL 0.9% 3 ML SYG IV SCH (19:00)
[2017-08-19] MEDS ORDERED: NITROGLYCERIN (SL) 0.4 MG TAB SL PRN (19:00)
[2017-08-19 20:00] VITALS: BP 107/59; RESP 18
[2017-08-19 20:27] VITALS: PULSE 108
[2017-08-19] MEDS: CLOPIDOGREL 75 MG TAB PO SCH (21:26)
[2017-08-19] MEDS: ROPINIROLE 1 MG TAB PO PRN (21:26)
[2017-08-19] MEDS: RANOLAZINE (SR) 500 MG TAB PO SCH (21:26)
[2017-08-19] MEDS: ZOLPIDEM 5 MG TAB PO PRN (21:26)
[2017-08-19 23:54] VITALS: BP 132/63; RESP 18
[2017-08-20] VITALS (12 sets, daily range): BP systolic 122–150; BP diastolic 55–75; PULSE 92–106; RESP 18–20
[2017-08-20] MEDS ORDERED: ALBUTEROL/IPRATROPIUM (NEB) 3 ML AMP ONE (00:32)
[2017-08-20] MEDS: ALBUTEROL/IPRATROPIUM (NEB) 3 ML AMP HHN PRN ×4 (00:34→20:50)
--- NOTE | 2017-08-20 02:56 | CONS ---
DATE OF ADMISSION: 08/19/2017 DATE OF CONSULTATION: PULMONARY CONSULTATION REASON FOR CONSULTATION: Shortness of breath. Thank you, Dr. Wei, for this consultation. HISTORY OF PRESENT ILLNESS: This is a 71-year-old gentleman, multiple medical problems including en d-stage renal failure on hemodialysis, presented from dialysis center today with increasing shortnes s of breath, orthopnea, PND, brought to the emergency room for further evaluation. Denies any chest pain. No hemoptysis, hematemesis. Found on admission to have a large left pleural effusion with c ompressive atelectasis and hypoxemia. Patient has home O2. Currently on 2 to 3 liters. Continues dialysis 3 times a week, has had frequent admissions to the hospital for similar problems. PAST MEDICAL HISTORY: 1. End-stage renal failure on hemodialysis. 2. Coronary artery disease. 3. Hyperlipidemia. 4. Hypertension. 5. Pacemaker placement. MEDICATIONS: Per chart. ALLERGIES: NONE. SOCIAL HISTORY: Nonsmoker, no alcohol, no history of drug use. FAMILY HISTORY: Noncontributory. SYSTEMS REVIEW: A 12-point review of systems negative other than that mentioned above. PHYSICAL EXAMINATION: GENERAL: Elderly-appearing gentleman, comfortable at rest on Ventimask O2. VITAL SIGNS: Currently afebrile, pulse is 115, blood pressure 138/60, O2 saturation 96%, FIO2 of 10 liters. NECK: Supple. No JVD or lymphadenopathy. CARDIAC: S1, S2, no added sounds or murmurs. CHEST: Diminished air entry bilaterally. ABDOMEN: Soft, nontender. No guarding or rebound. EXTREMITIES: No cyanosis, clubbing, edema. NEUROLOGIC: Generalized weakness. LABORATORY DATA: White count 6.8, hemoglobin 11.3, platelets of 210, BUN 16, creatinine 2.07. Ches t x-ray shows large left pleural effusion. IMPRESSION AND PLAN: 1. End-stage renal failure on hemodialysis. 2. Left pleural effusion, likely secondary to cardiorenal syndrome. 3. History of pulmonary hypertension. The patient will need: 1. Supplemental O2. 2. Bronchodilators. 3. Left-sided thoracentesis with pleural fluid studies. 4. DVT and GI prophylaxis. 5. Hemodialysis with volume removal as tolerated. Dictated By: MUKUND MAGANA/RAYA Conf#: [id number] DID#: [id number] CC: RIMMA WEI MD;*End*
--- NOTE | 2017-08-20 04:56 | HP ---
DATE OF ADMISSION: 08/19/2017 CHIEF COMPLAINT: Shortness of breath. HISTORY OF PRESENT ILLNESS: This 71-year-old man was admitted today through the emergency room after he was sent over from the dialysis unit because of shortness of breath. The patient has been in this hospital multiple times. The patient has a history of coronary artery disease, congestive heart failure, pleural effusions and endstage renal disease for which he is on hemodialysis. The patient was seen in the emergency room multiple times over the past several weeks for dizziness and chest pain. His last admission here was 07/05/2017 for recurrent chest pain and shortness of breath. The patient is under the care of Dr. Steven Johnson, my partner, who follows him both in and outside of the hospital. The patient has a history of endstage renal disease due to longstanding diabetes mellitus. He has ischemic cardiomyopathy and significant coronary artery disease with multiple percutaneous interventions and stenting of coronary arteries. He also had placement of biventricular pacer with an AICD at [facility]. The patient apparently was in his usual state of health with some chronic shortness of breath. Then, today while in the dialysis unit the nurses noted that he was more short of breath. The patient then complained of shortness of breath and said that he could not take a deep breath. The nurses listened to his lungs and felt that he had diminished breath sounds on the left side of his chest. He was sent to the ER for further evaluation and treatment. He was found to have a large left pleural effusion. The patient has had this left-sided pleural effusion which has undergone a prior thoracentesis. He was found to have a transudate. He denies any chest pain now . PAST MEDICAL HISTORY: Remarkable for the followin. Coronary artery disease. 2. Ischemic cardiomyopathy. 3. Endstage renal disease on maintenance hemodialysis. 4. History of diabetes mellitus, now controlled with diet. 5. Peripheral vascular disease. 6. Biventricular AICD. 7. Hyperlipidemia. 8. History of recurrent non-ST elevation myocardial infarctions. 9. History of methicillin-susceptible Staph aureus infection. 10. Prior renal transplant x2. 11. Restless leg syndrome. 12. Hypertension, now inactive. REVIEW OF SYSTEMS: Essentially unremarkable except for an ischemic ulcer on his left big toe,sacral stage 2 decubitus ulcer , pain and swelling in his left arm and hand where he has an AV fistula, diffuse weakness. No nausea, vomiting or diarrhea. CURRENT MEDICATIONS: Include the following. 1. Gi-Evelio 1 daily. 2. Renvela 3 tablets t.i.d. with meals 3. Ropinirole 1 mg p.o. q.i.d. p.r.n. restless legs. 4. Ranexa 500 mg twice a day. 5. Plavix 75 mg a day. 6. Allopurinol 100 mg a day. 7. Xanax p.r.n. anxiety. 8. Losartan 25 mg a day. ALLERGIES: HE HAS NO KNOWN DRUG ALLERGIES. SOCIAL HISTORY: He does not smoke nor drink alcohol. PHYSICAL EXAMINATION: GENERAL: At this time reveals an elderly man in no apparent distress. VITAL SIGNS: Temperature 98.1, pulse of 115, respiratory rate 17, blood pressure 151/74, O2 sat 93% on a 10 liter simple mask. HEENT: Head normocephalic. Eyes: Extraocular muscles intact. NOSE AND MOUTH: Normal. NECK: Supple. No neck vein distention. CHEST: He has an AICD over in the right chest. HEART: Regular rhythm. No murmurs, gallops or rubs. LUNGS: He has diminished breath sounds on the left side of the chest. The right lung is clear. ABDOMEN: Soft, nontender, no masses or megaly. EXTREMITIES: He has bilateral lower extremity edema. The left foot, there ischemic ulcer on his left big toe. He has diminished pulses in both feet. His left arm is swollen. He has an upper arm AV fistula with a good thrill. His left hand is slightly erythematous with some cracking of the skin. NEUROLOGIC: He is grossly intact without any focal neurologic deficits, but diffusely weak. He does have a stage II sacral decubitus ulcer. IMPRESSION: 1. This patient presents now with increasing shortness of breath. He has a large left pleural effusion which occupies about 80% of the left hemithorax. There is also interval worsening of a patchy infiltrate in the right lower lobe. This will need a thoracentesis. The patient was seen by physician credentialing specialist, Dr. Anaya, in the emergency room. He has been scheduled to have a left thoracentesis tomorrow. One should consider placing a PleurX tube which might help to control this recurrent pleural effusion. 2. Endstage renal disease. This patient did have a hemodialysis treatment today. His next treatment would be due in 2 days. 3. Ischemic cardiomyopathy with chronic congestive heart failure. 4. Peripheral vascular disease with an ischemic ulcer on the left big toe. 5. Sacral decubitus ulcer, stage II. 6. Endstage renal disease on maintenance hemodialysis Thursday, Thursday and Thursday. PLAN: 1. Resume routine medications. 2. Pulmonary consultation called with Dr. Anaya. 3. Plan for thoracentesis tomorrow of the left pleural effusion. 4. Dialysis in 2 days. 5. Wound care consultation. Dictated By: RIMMA WEI MD, ND/RAYA Conf#: [id number] DID#: [id number] MTDD
[2017-08-20] MEDS: PANTOPRAZOLE (EC) 40 MG TAB PO SCH (06:57)
[2017-08-20] MEDS ORDERED: LIDOCAINE 1% (MPF) 5 ML VIAL ONE (09:01)
--- NOTE | 2017-08-20 09:02 | CONS ---
Date/Time of Note Date/Time of Note DATE: 08/20/17 TIME: 08:52 Assessment/Plan Assessment/Plan Problems: (1) SOB (shortness of breath) Comment: at baseline (2) ESRD (end stage renal disease) on dialysis Status: Chronic Comment: for HD in am (3) Pleural effusion Comment: for thoracentesis this am Consultation Date/Type/Reason Admit Date/Time Aug 19, 2017 at 13:37 Initial Consult Date Type of Consultation: neph 24 HR Interval Summary Free Text/Dictation baseline sob... for planned thoracentesis this am Exam/Review of Systems Vital Signs Vitals Vital Signs Date Time Temp Pulse Resp B/P Pulse Ox O2 Delivery O2 Flow Rate FiO2 08/20/17 08:21 106 08/20/17 07:19 98.3 18 146/71 100 08/20/17 04:55 Simple Mask 6.0 Intake and Output 08/19/17 08/19/17 08/20/17 15:00 23:00 07:00 Intake Total 270 ml Output Total 0 ml Balance 270 ml Exam Constitutional: alert, oriented Head: normocephalic Eyes: nl conjunctiva Neck: supple Respiratory: diminished breath sounds (L chest) Cardiovascular: regular rate and rhythm Gastrointestinal: nl liver, spleen, soft Extremities: normal pulses (fxn avf) Results Result Diagram: 08/20/17 0555 08/20/17 0555 Results 24 hrs Laboratory Tests Test 08/19/17 12:00 08/19/17 19:02 08/19/17 23:31 08/20/17 05:55 White Blood Count 6.8 # 6.0 Red Blood Count 3.72 L 3.52 L Hemoglobin 11.3 L 10.4 L Hematocrit 37.8 L 35.5 L Mean Corpuscular Volume 101.6 H 100.9 Mean Corpuscular Hemoglobin 30.4 29.5 Mean Corpuscular Hemoglobin Concent 29.9 L 29.3 L Red Cell Distribution Width 17.2 H 17.3 H Platelet Count 210 178 175 Mean Platelet Volume 9.7 10.4 Neutrophils % 69.4 58.4 Lymphocytes % 22.0 31.8 Monocytes % 5.6 6.2 Eosinophils % 2.1 2.5 Basophils % 0.6 0.8 Nucleated Red Blood Cells % 0.0 0.0 Neutrophils # 4.7 3.5 Lymphocytes # 1.5 1.9 Monocytes # 0.4 0.4 Eosinophils # 0.1 0.2 Basophils # 0.0 0.1 Nucleated Red Blood Cells # 0.0 0.0 Sodium Level 144 142 Potassium Level 2.7 *L 4.4 Chloride Level 113 H 102 # Carbon Dioxide Level 27 33 H Anion Gap 7 L 11 Blood Urea Nitrogen 16 35 #H Creatinine 2.07 H 3.81 #H Glucose Level 72 113 # Calcium Level 6.1 L 9.0 Troponin I 0.027 0.033 0.041 Prothrombin Time 14.4 H Prothrombin Time Ratio 1.1 INR International Normalized Ratio 1.12 Activated Partial Thromboplast Time 37.7 H Thrombin Time 17.0 Creatine Kinase < 20 L < 20 L Creatine Kinase Index Creatinine Kinase MB (Mass) 0.83 0.81 Phosphorus Level 3.3 Magnesium Level 1.9 Medications Medications Current Medications Allopurinol (Zyloprim) 100 mg DAILY PO ; Start 08/20/17 at 09:00 Alprazolam (Xanax) 0.25 mg QHS PRN PO ANXIETY; Start 08/19/17 at 18:30 Clopidogrel Bisulfate (plaVIX) 75 mg QHS PO Last administered on 08/19/17 21: 26; Admin Dose 75 MG; Start 08/19/17 at 21:00 Losartan Potassium (Cozaar) 25 mg DAILY PO ; Start 08/20/17 at 09:00 Ranolazine (Ranexa) 500 mg Q12 PO Last administered on 08/19/17 21:26; Admin Dose 500 MG; Start 08/19/17 at 21:00 Zolpidem Tartrate (Ambien) 7.5 mg QHS PRN PO INSOMNIA Last administered on 08/19 21:26; Admin Dose 7.5 MG; Start 08/19/17 at 18:30 Nitroglycerin (Nitroglycerin (Sl Tab) 0.4 Mg) 1 tab Q5M PRN SL ANGINA; Start 08/19/17 at 19:00 Ropinirole HCl (Requip) 1 mg QID PRN PO RESTLESS LEGS Last administered on 08/19 21:26; Admin Dose 1 MG; Start 08/19/17 at 19:00 Acetaminophen (Tylenol Tab) 650 mg Q6H PRN PO PAIN LEVEL 1-3 OR FEVER; Start 08/19/17 at 19:00 POP BOYCE MD Aug 20, 2017 09:02
--- NOTE | 2017-08-20 09:15 | RADRPT ---
PROCEDURE: XR Chest. CLINICAL INDICATION: Post thoracentesis chest radiograph, evaluate for pneumothorax TECHNIQUE: Single view of the chest COMPARISON: Chest radiograph August 19, 2017 FINDINGS: There is a small to moderate left pleural effusion, significantly decreased from prior. There is no pneumothorax. There is mild enlargement the cardiac silhouette with mild vascular congestion. There are atheroscle rotic calcifications of the aorta. There is a right-sided cardiac pacing device / AICD. There is bibasilar atelectasis. There is a possible right lower lobe infiltrate. There is no acute osseous abnormality. IMPRESSION: 1. Small to moderate left pleural effusion, significantly decreased from prior. No pneumothorax. 2. Mild vascular congestion and mildly enlarged cardiac silhouette. 3. Atherosclerotic calcifications of the aorta. 4. Bibasilar atelectasis and possible right lower lobe infiltrate. RPTAT: UU .Waqas Mcdonnell MD, MD Date Time Electronically viewed and signed by .Waqas Mcdonnell MD, on 08/20/2017 09:15 .K/
[2017-08-20] MEDS: RANOLAZINE (SR) 500 MG TAB PO SCH ×2 (09:28→21:32)
[2017-08-20] MEDS: ALLOPURINOL 100 MG TAB PO SCH (09:29)
[2017-08-20] MEDS: LOSARTAN 25 MG TAB PO SCH (09:29)
[2017-08-20] MEDS: ROPINIROLE 1 MG TAB PO PRN ×3 (09:33→21:32)
--- NOTE | 2017-08-20 09:45 | RADRPT ---
PROCEDURE: US guided left thoracentesis. CLINICAL INDICATION: Shortness of breath. Left pleural effusion. TECHNIQUE: Prior to the procedure, informed consent was obtained. The risks, benefits, and alternatives were e xplained to the patient or the patient's family, including but not limited to bleeding, infection, p ain, visceral or vascular damage, shock, pneumothorax, chest tube placement, air embolism, and . The patient or the patient's family understood the risks and the alternatives and wished to proce ed with the study. Informed written consent was obtained. A procedural pause was performed. The patient's name, date of , and procedure to be performed were verified. Ultrasound of the left hemithorax was performed in the axial and sagittal planes. A left pleural eff usion is noted. Utilizing ultrasound guidance, optimal location for entry to the pleural cavity was ascertained. The overlying skin was prepped and draped in the usual sterile fashion. Approximately 10 ml of 1% Xylocaine was injected locally for pain control. Using ultrasound guidance, a 5-Italian Yueh catheter was introduced into the left pleural space without difficulty. Fluid was aspirated. COMPARISON: Chest x-ray dated 08/19/2017. FINDINGS: Initial ultrasound demonstrates fluid in the left pleural space. Approximately 1.55 liters of serou s fluid was aspirated and sent to the laboratory. IMPRESSION: 1. Satisfactory ultrasound-guided left thoracentesis. RPTAT: QQ .Lazaro Zavaleta MD, Date Time Electronically viewed and signed by .Lazaro Zavaleta MD, on 08/20/2017 09:45 .R/
--- NOTE | 2017-08-20 11:30 | CONS ---
Date/Time of Note Date/Time of Note DATE: 08/20/17 TIME: 11:29 Consult Date/Type/Reason Admit Date/Time Aug 19, 2017 at 13:37 Initial Consult Date Type of Consultation: Pulm Subjective Patient status post thoracentesis with 1.5 L fluid removed, states he feels better. Still has cough. Objective Vital Signs Date Time Temp Pulse Resp B/P Pulse Ox O2 Delivery O2 Flow Rate FiO2 08/20/17 11:09 98.0 102 18 134/61 100 08/20/17 04:55 Simple Mask 6.0 Intake and Output 08/19/17 08/19/17 08/20/17 15:00 23:00 07:00 Intake Total 270 ml Output Total 0 ml Balance 270 ml Exam PHYSICAL EXAMINATION: GENERAL: Elderly-appearing gentleman, comfortable at rest on Ventimask O2. VITAL SIGNS: As above NECK: Supple. No JVD or lymphadenopathy. CARDIAC: S1, S2, no added sounds or murmurs. CHEST: Diminished air entry bilaterally. ABDOMEN: Soft, nontender. No guarding or rebound. EXTREMITIES: No cyanosis, clubbing, edema. NEUROLOGIC: Generalized weakness. Results/Medications Result Diagram: 08/20/17 0555 08/20/17 0555 Results 24 hrs Laboratory Tests Test 08/19/17 12:00 08/19/17 19:02 08/19/17 23:31 08/20/17 05:55 White Blood Count 6.8 # 6.0 Red Blood Count 3.72 L 3.52 L Hemoglobin 11.3 L 10.4 L Hematocrit 37.8 L 35.5 L Mean Corpuscular Volume 101.6 H 100.9 Mean Corpuscular Hemoglobin 30.4 29.5 Mean Corpuscular Hemoglobin Concent 29.9 L 29.3 L Red Cell Distribution Width 17.2 H 17.3 H Platelet Count 210 178 175 Mean Platelet Volume 9.7 10.4 Neutrophils % 69.4 58.4 Lymphocytes % 22.0 31.8 Monocytes % 5.6 6.2 Eosinophils % 2.1 2.5 Basophils % 0.6 0.8 Nucleated Red Blood Cells % 0.0 0.0 Neutrophils # 4.7 3.5 Lymphocytes # 1.5 1.9 Monocytes # 0.4 0.4 Eosinophils # 0.1 0.2 Basophils # 0.0 0.1 Nucleated Red Blood Cells # 0.0 0.0 Sodium Level 144 142 Potassium Level 2.7 *L 4.4 Chloride Level 113 H 102 # Carbon Dioxide Level 27 33 H Anion Gap 7 L 11 Blood Urea Nitrogen 16 35 #H Creatinine 2.07 H 3.81 #H Glucose Level 72 113 # Calcium Level 6.1 L 9.0 Troponin I 0.027 0.033 0.041 Prothrombin Time 14.4 H Prothrombin Time Ratio 1.1 INR International Normalized Ratio 1.12 Activated Partial Thromboplast Time 37.7 H Thrombin Time 17.0 Creatine Kinase < 20 L < 20 L Creatine Kinase Index Creatinine Kinase MB (Mass) 0.83 0.81 Phosphorus Level 3.3 Magnesium Level 1.9 Test 08/20/17 08:35 Body Fluid Type THORACENTHESIS Body Fluid Volume 1000.0 Body Fluid Color YELLOW Body Fluid Appearance CLEAR Body Fluid WBC 80 Body Fluid RBC (Auto) 0 Body Fluid Polynuclear WBCs (%) 11.2 Body Fluid Mononuclear Cells % Auto 88.8 Medications Current Medications Allopurinol (Zyloprim) 100 mg DAILY PO Last administered on 08/20/17 09:29; Admin Dose 100 MG; Start 08/20/17 at 09:00 Alprazolam (Xanax) 0.25 mg QHS PRN PO ANXIETY; Start 08/19/17 at 18:30 Clopidogrel Bisulfate (plaVIX) 75 mg QHS PO Last administered on 08/19/17 21: 26; Admin Dose 75 MG; Start 08/19/17 at 21:00 Losartan Potassium (Cozaar) 25 mg DAILY PO Last administered on 08/20/17 09:29 ; Admin Dose 25 MG; Start 08/20/17 at 09:00 Ranolazine (Ranexa) 500 mg Q12 PO Last administered on 08/20/17 09:28; Admin Dose 500 MG; Start 08/19/17 at 21:00 Zolpidem Tartrate (Ambien) 7.5 mg QHS PRN PO INSOMNIA Last administered on 08/19 21:26; Admin Dose 7.5 MG; Start 08/19/17 at 18:30 Nitroglycerin (Nitroglycerin (Sl Tab) 0.4 Mg) 1 tab Q5M PRN SL ANGINA; Start 08/19/17 at 19:00 Ropinirole HCl (Requip) 1 mg QID PRN PO RESTLESS LEGS Last administered on 08/20 09:33; Admin Dose 1 MG; Start 08/19/17 at 19:00 Acetaminophen (Tylenol Tab) 650 mg Q6H PRN PO PAIN LEVEL 1-3 OR FEVER; Start 08/19/17 at 19:00 Aspirin (Halfprin) 81 mg DAILY PO ; Start 08/20/17 at 11:00 Assessment/Plan Chief Complaint/Hosp Course IMPRESSION AND PLAN: 1. End-stage renal failure on hemodialysis. 2. Left pleural effusion, likely secondary to cardiorenal syndrome. Status post thoracentesis clinically improved. Await pleural fluid studies 3. History of pulmonary hypertension. Plan 1. Supplemental O2. 2. Bronchodilators. 3. Await pleural fluid studies 4. DVT and GI prophylaxis. 5. Hemodialysis with volume removal as tolerated. Problems: MUKUND URBANO MD, [facility] Aug 20, 2017 11:30
[2017-08-20] MEDS: SEVELAMER 800 MG TAB PO SCH ×2 (12:02→17:46)
[2017-08-20] MEDS: ASPIRIN (EC) 81 MG TAB PO SCH (12:03)
[2017-08-20] MEDS: ZOLPIDEM 5 MG TAB PO PRN (21:32)
[2017-08-20] MEDS: CLOPIDOGREL 75 MG TAB PO SCH (21:32)
[2017-08-21] VITALS (20 sets, daily range): BP systolic 119–154; BP diastolic 63–86; PULSE 82–112; RESP 18–20
[2017-08-21] MEDS: ALBUTEROL/IPRATROPIUM (NEB) 3 ML AMP HHN PRN ×5 (00:33→20:59)
[2017-08-21] MEDS: PANTOPRAZOLE (EC) 40 MG TAB PO SCH (07:26)
[2017-08-21] MEDS: ROPINIROLE 1 MG TAB PO PRN ×2 (07:59→22:39)
[2017-08-21] MEDS: SEVELAMER 800 MG TAB PO SCH ×3 (07:59→17:44)
[2017-08-21] MEDS: LOSARTAN 25 MG TAB PO SCH (08:28)
[2017-08-21] MEDS: ASPIRIN (EC) 81 MG TAB PO SCH (08:32)
[2017-08-21] MEDS: RANOLAZINE (SR) 500 MG TAB PO SCH ×2 (08:32→22:39)
[2017-08-21] MEDS: ALLOPURINOL 100 MG TAB PO SCH (08:32)
--- NOTE | 2017-08-21 08:32 | RADRPT ---
PROCEDURE: XR Chest. CLINICAL INDICATION: Shortness of breath. TECHNIQUE: Single frontal view. COMPARISON: 08/20/2017. FINDINGS: There is bilateral air space and interstitial disease consistent with pulmonary edema. The lungs are otherwise clear. The heart is enlarged. There is calcification in the aorta consistent with atherosclerosis. There is a right-sided biventricular pacemaker/internal cardiac defibrillator. Surgical clips are present in the right axilla and there is a stent in the right upper arm and axillary region. Vascular calcific ations are present in the left upper extremity. There is no right pleural effusion. There is a small left pleural effusion. There is no pneumothorax. IMPRESSION: 1. Pulmonary edema, slightly worse than seen previously. 2. No other change from the 08/20/2017 chest radiograph. RPTAT: QQ .Lazaro Zavaleta MD, MD Date Time Electronically viewed and signed by .Lazaro Zavaleta MD, MD on 08/21/2017 08:32 .R/
[2017-08-21] MEDS: ALBUMIN HUMAN 25% 100 ML IV SCH ×2 (12:00→12:22)
--- NOTE | 2017-08-21 13:12 | CONS ---
Date/Time of Note Date/Time of Note DATE: 08/21/17 TIME: 13:08 Assessment/Plan Assessment/Plan Problems: (1) ESRD (end stage renal disease) on dialysis Status: Chronic Comment: on HD now...typical MWF (2) Pleural effusion Comment: s/p tap yesterday... no infx... await pulm f/u (3) SOB (shortness of breath) Comment: better (4) Debility Comment: await [employer] assistance in arranging discharge...?some oxygen equipment left at [facility] here in [place]?..Home..?SNF...await eval Consultation Date/Type/Reason Admit Date/Time Aug 19, 2017 at 13:37 Type of Consultation: neph 24 HR Interval Summary Free Text/Dictation stable... now on HD...got thoracentesis yesterday Exam/Review of Systems Vital Signs Vitals Vital Signs Date Time Temp Pulse Resp B/P Pulse Ox O2 Delivery O2 Flow Rate FiO2 08/21/17 12:19 98.0 76 18 147/78 98 08/21/17 10:15 Simple Mask 10.0 Intake and Output 08/20/17 08/20/17 08/21/17 14:59 22:59 06:59 Intake Total 500 ml Balance 500 ml Exam Constitutional: alert, oriented Head: normocephalic Neck: supple Respiratory: clear to auscultation Cardiovascular: regular rate and rhythm Gastrointestinal: soft Extremities: normal pulses (fxn avf LUE) Results Result Diagram: 08/20/17 0555 08/20/17 0555 Medications Medications Current Medications Allopurinol (Zyloprim) 100 mg DAILY PO Last administered on 08/21/17 08:32; Admin Dose 100 MG; Start 08/20/17 at 09:00 Alprazolam (Xanax) 0.25 mg QHS PRN PO ANXIETY; Start 08/19/17 at 18:30 Clopidogrel Bisulfate (plaVIX) 75 mg QHS PO Last administered on 08/20/17 21: 32; Admin Dose 75 MG; Start 08/19/17 at 21:00 Losartan Potassium (Cozaar) 25 mg DAILY PO Last administered on 08/20/17 09:29 ; Admin Dose 25 MG; Start 08/20/17 at 09:00 Ranolazine (Ranexa) 500 mg Q12 PO Last administered on 08/21/17 08:32; Admin Dose 500 MG; Start 08/19/17 at 21:00 Zolpidem Tartrate (Ambien) 7.5 mg QHS PRN PO INSOMNIA Last administered on 08/20 21:32; Admin Dose 7.5 MG; Start 08/19/17 at 18:30 Nitroglycerin (Nitroglycerin (Sl Tab) 0.4 Mg) 1 tab Q5M PRN SL ANGINA; Start 08/19/17 at 19:00 Ropinirole HCl (Requip) 1 mg QID PRN PO RESTLESS LEGS Last administered on 08/21 07:59; Admin Dose 1 MG; Start 08/19/17 at 19:00 Acetaminophen (Tylenol Tab) 650 mg Q6H PRN PO PAIN LEVEL 1-3 OR FEVER; Start 08/19/17 at 19:00 Aspirin (Halfprin) 81 mg DAILY PO Last administered on 08/21/17 08:32; Admin Dose 81 MG; Start 08/20/17 at 11:00 POP BOYCE MD Aug 21, 2017 13:12
--- NOTE | 2017-08-21 16:20 | CONS ---
Date/Time of Note Date/Time of Note DATE: 08/21/17 TIME: 16:18 Consult Date/Type/Reason Admit Date/Time Aug 19, 2017 at 13:37 Type of Consultation: Pulmonary Subjective Increase oxygen requirements on facemask this morning. Awake alert oriented. Objective Vital Signs Date Time Temp Pulse Resp B/P Pulse Ox O2 Delivery O2 Flow Rate FiO2 08/21/17 15:49 97.0 62 18 135/63 98 08/21/17 14:11 10.0 08/21/17 10:15 Simple Mask Intake and Output 08/20/17 08/20/17 08/21/17 15:00 23:00 07:00 Intake Total 500 ml Balance 500 ml Exam GENERAL: Elderly gentleman comfortable at rest no acute distress VITAL SIGNS: per chart NECK: Supple. No JVD or lymphadenopathy. CARDIAC EXAM: S1, S2. No added sounds or murmurs. CHEST: clear bilaterally, No added sounds, rales or wheezes ABDOMEN: Soft, nontender. No guarding or rebound. EXTREMITIES: No cyanosis, clubbing or edema. NEUROLOGIC: Generalized weakness. No focal deficits. Results/Medications Result Diagram: 08/20/1755 08/20/17554 Medications Current Medications Allopurinol (Zyloprim) 100 mg DAILY PO Last administered on 08/21/17 08:32; Admin Dose 100 MG; Start 08/20/17 at 09:00 Alprazolam (Xanax) 0.25 mg QHS PRN PO ANXIETY; Start 08/19/17 at 18:30 Clopidogrel Bisulfate (plaVIX) 75 mg QHS PO Last administered on 08/20/17 21: 32; Admin Dose 75 MG; Start 08/19/17 at 21:00 Losartan Potassium (Cozaar) 25 mg DAILY PO Last administered on 08/20/17 09:29 ; Admin Dose 25 MG; Start 08/20/17 at 09:00 Ranolazine (Ranexa) 500 mg Q12 PO Last administered on 08/21/17 08:32; Admin Dose 500 MG; Start 08/19/17 at 21:00 Zolpidem Tartrate (Ambien) 7.5 mg QHS PRN PO INSOMNIA Last administered on 08/20 21:32; Admin Dose 7.5 MG; Start 08/19/17 at 18:30 Nitroglycerin (Nitroglycerin (Sl Tab) 0.4 Mg) 1 tab Q5M PRN SL ANGINA; Start 08/19/17 at 19:00 Ropinirole HCl (Requip) 1 mg QID PRN PO RESTLESS LEGS Last administered on 08/21 07:59; Admin Dose 1 MG; Start 08/19/17 at 19:00 Acetaminophen (Tylenol Tab) 650 mg Q6H PRN PO PAIN LEVEL 1-3 OR FEVER; Start 08/19/17 at 19:00 Aspirin (Halfprin) 81 mg DAILY PO Last administered on 08/21/17 08:32; Admin Dose 81 MG; Start 08/20/17 at 11:00 Assessment/Plan Chief Complaint/Hosp Course IMPRESSION 1. End-stage renal failure on hemodialysis. 2. Left pleural effusion, likely secondary to cardiorenal syndrome. Status post thoracentesis clinically improved. Await pleural fluid studies 3. History of pulmonary hypertension. Plan 1. Supplemental O2. Repeat chest x-ray shows worsening pulmonary edema 2. Bronchodilators. 3. Await pleural fluid studies 4. DVT and GI prophylaxis. 5. Hemodialysis consider removing more volume if tolerated. Problems: MUKUND URBANO MD, [facility] Aug 21, 2017 16:20
[2017-08-21] MEDS: ZOLPIDEM 5 MG TAB PO PRN (22:39)
[2017-08-21] MEDS: MUPIROCIN 2% 22 GM OINT TOP SCH (22:39)
[2017-08-21] MEDS: CLOPIDOGREL 75 MG TAB PO SCH (22:39)
[2017-08-22] VITALS (7 sets, daily range): BP systolic 117–140; BP diastolic 56–75; PULSE 72–112; RESP 21
[2017-08-22] MEDS: ALBUTEROL/IPRATROPIUM (NEB) 3 ML AMP HHN PRN ×3 (00:57→11:20)
[2017-08-22] MEDS: SEVELAMER 800 MG TAB PO SCH (08:07)
[2017-08-22] MEDS: PANTOPRAZOLE (EC) 40 MG TAB PO SCH (08:07)
[2017-08-22] MEDS: ALLOPURINOL 100 MG TAB PO SCH (08:07)
[2017-08-22] MEDS: RANOLAZINE (SR) 500 MG TAB PO SCH (08:07)
[2017-08-22] MEDS: ASPIRIN (EC) 81 MG TAB PO SCH (08:07)
[2017-08-22] MEDS: LOSARTAN 25 MG TAB PO SCH (08:09)
[2017-08-22] MEDS: MUPIROCIN 2% 22 GM OINT TOP SCH (08:17)
[2017-08-22] MEDS: ROPINIROLE 1 MG TAB PO PRN (08:17)
--- NOTE | 2017-08-22 08:42 | DS ---
DATE OF ADMISSION: 08/19/2017 DATE OF DISCHARGE: 08/22/2017 REASON FOR ADMISSION: Dyspnea. HISTORY OF PRESENT ILLNESS: Please see full dictated history and physical per Dr. Gamez. Briefly, a 71-year-old gentleman well known to me with end-stage renal disease due to diabetic nephr opathy with a known history of coronary artery disease, status post numerous PCI and stenting and no n-ST elevation myocardial infarction, chronic congestive heart failure, ischemic cardiomyopathy, rec urrent pleural effusions who was admitted from dialysis with worsening shortness of breath and in th e ER, was noted to have a recurrent large left pleural effusion. There was no antecedent chest pain, fevers, chills, cough or sputum production. HOSPITAL COURSE: The patient was admitted to the ER, chest x-ray was as mentioned, and he was seen in consultation by Dr. Anaya from the pulmonary service. The patient did undergo a thoracentesis with removal of 1500 mL of clear fluid, cultures which at th e time of this dictation are negative. Pathology is still pending. Sugar was high at 101 and surpr isingly albumin was somewhat elevated at 3.3. He felt improved after thoracentesis with his pulmonary status back to baseline. He did receive con tinued hemodialysis which was uncomplicated. Of note, throughout his stay, he had no fevers or chills. He had no leukocytosis, had a stable anthony tocrit and CK and troponins were entirely unremarkable. He remained hemodynamically stable and was ultimately discharged home where he has multiple caregive rs to take care of him. DISCHARGE DIAGNOSES: 1. Left pleural effusion, status post thoracentesis with relief: fluid with normal glucose, no whi te count, albeit slightly elevated protein: Pathology is still pending. 2. Prior history of thoracentesis on the left with negative pathology and cytology in the past. 3. Dyspnea secondary to above, resolved post-thoracentesis. 4. End-stage renal disease due to diabetic nephropathy, maintained on outpatient hemodialysis every Thursday, Thursday and Thursday. 5. Known ischemic heart disease, coronary disease with ischemic cardiomyopathy status post multiple PCIs and stents in the past. 6. History of biventricular AICD placement over at [facility] in October of this year, stable. 7. Status post prior renal transplantation x2 in the past. 8. Diabetes mellitus, currently diet controlled. 9. Peripheral vascular disease. 10. Hyperlipidemia. 11. Restless leg syndrome, controlled with ropinirole. 12. Hypertension, controlled on dialysis. 13. Remote history of gout, currently inactive. 14. Recent acute cholecystitis in 06/2017, successfully treated conservatively with IV antibiotics with resolution: Patient had refused further surgical intervention. 15. Abnormality on CT scan suspicious for colon carcinoma. The patient has refused multiple times, colonoscopy or further evaluation. 16. Anxiety, currently controlled on medications. DISPOSITION: Home. FOLLOWUP: Will be with Dr. Boyce. DISCHARGE MEDICATIONS: As per the medical reconciliation sheet. CONDITION ON DISCHARGE: Stable and improved. Followup will be with Dr. Boyce in 2 days at his [facility] dialysis center. Dictated By: POP BOYCE MD, MM/RAYA Conf#: [id number] DID#: [id number]
== END 2017-08-22 12:35 | disposition home or self-care (01) | DRG 291 ==
LOC: E/R 11:34 → TEL 13:37
PROVIDERS: ADMIT Internal Medicine; ATTEND Internal Medicine
PROC: 0W9B3ZZ Drainage of Left Pleural Cavity, Percutaneous Approach (ICD-10-PCS; principal; 2017-08-20)
PROC: 5A1D70Z Performance of Urinary Filtration, Intermittent, Less than 6 Hours Per Day (ICD-10-PCS; 2017-08-21)
DX: I13.2 Hypertensive heart and chronic kidney disease with heart failure and with stage 5 chronic kidney disease, or end stage renal disease (principal); N18.6 End stage renal disease; L89.152 Pressure ulcer of sacral region, stage 2; J90 Pleural effusion, not elsewhere classified; C18.9 Malignant neoplasm of colon, unspecified; I50.43 Acute on chronic combined systolic (congestive) and diastolic (congestive) heart failure; E11.22 Type 2 diabetes mellitus with diabetic chronic kidney disease; Z99.81 Dependence on supplemental oxygen; Z99.2 Dependence on renal dialysis; E87.6 Hypokalemia; I25.10 Atherosclerotic heart disease of native coronary artery without angina pectoris; E78.5 Hyperlipidemia, unspecified; I25.5 Ischemic cardiomyopathy; E11.51 Type 2 diabetes mellitus with diabetic peripheral angiopathy without gangrene; I25.2 Old myocardial infarction; Z95.810 Presence of automatic (implantable) cardiac defibrillator; Z86.14 Personal history of Methicillin resistant Staphylococcus aureus infection; G25.81 Restless legs syndrome; E11.621 Type 2 diabetes mellitus with foot ulcer; L97.529 Non-pressure chronic ulcer of other part of left foot with unspecified severity; Z95.5 Presence of coronary angioplasty implant and graft; F41.9 Anxiety disorder, unspecified
CPT/HCPCS: 32555; 36415; 71010; 80048; 82550; 82553; 82945; 82962; 83615; 83735; 84100; 84157; 84484; 85025; 85049; 85610; 85670; 85730; 87070; 87081; 87102; 87116; 88104; 88305; 89051; 90935; 93005; 94640; 94664; 97162; P9047

== ENCOUNTER 2017-09-07 11:42 | Inpatient (IN) | payer MEDICARE, OTHER ==
[~2017-09-07] VITALS: Ht 170.2 cm; Wt 73.0 kg
[~2017-09-07 11:42] MED LIST changes: -ASPI-664 PO; -ATOR40TA68 PO; -DOCU-216 PO; -ESOM40CA PO; -HYDR-905 PO; -IPRA3AMP HHN; -NEPH PO; -NITR12SP3 TL; +PANT40TA4 PO; -ROPI0.5T2 PO; -SEVE800T7 PO
[2017-09-07 12:26] VITALS: Ht 170.2 cm; Wt 73.0 kg
--- NOTE | 2017-09-07 12:37 | ERD ---
ER Documentation Chief Complaint Chief Complaint from diaylsis clinic for sob 02 sat is 100% HPI 71-year-old man with a history of ischemic cardiomyopathy and recurrent pleural effusion presents with shortness of breath and episodes of hypoxia shortly after completing hemodialysis today. He states he suspects he has fluid in his lung and has complaints of chest pain as well. He denies fevers or chills, no vomiting or diarrhea, no blood per rectum. Patient was transported here by EMS on high flow oxygen otherwise without complications. ROS All systems reviewed and are negative except as per history of present illness. Medications Home Meds Active Scripts Losartan Potassium* (Losartan Potassium*) 25 Mg Tablet, 25 MG PO DAILY for 90 Days, TAB 3 Refills Prov:POP BOYCE MD 02/06/17 Reported Medications Nitroglycerin* (Nitroglycerin* SL) 0.4 Mg Tab.subl, 0.4 MG SL Q5MIN Y for CHEST PAIN, BOTTLE 09/07/17 Aspirin* (Aspirin* Chew) 81 Mg Tab.chew, 81 MG PO DAILY, TAB.CHEW 09/07/17 Pantoprazole* (Pantoprazole*) 40 Mg Tablet.dr, 40 MG PO AC BREAKFAST, TAB 08/19/17 Ranolazine* (Ranexa*) 500 Mg Tab.sr.12h, 500 MG PO Q12, TAB 01/28/17 Zolpidem Tartrate* (Zolpidem Tartrate*) 5 Mg Tablet, 7.5 MG PO QHS Y for INSOMNIA, #30 TAB 12/01/16 Clopidogrel Bisulfate (Clopidogrel) 75 Mg Tablet, 75 MG PO QHS, #30 TAB 12/01/16 Alprazolam* (Alprazolam*) 0.25 Mg Tablet, 0.25 MG PO QHS Y for ANXIETY, TAB 12/01/16 Allopurinol* (Allopurinol*) 100 Mg Tablet, 100 MG PO DAILY, TAB 12/01/16 Allergies Allergies: Coded Allergies: No Known Drug Allergies (Verified Allergy, Unknown, 09/07/17) PMhx/Soc History of CAD status post PCI with coronary artery stenting, biventricular AICD pacer in place, ischemic cardiomyopathy, end-stage kidney disease hemodialysis dependent, diabetes mellitus, peripheral vascular disease, hyperlipidemia, hypertension, renal transplant, chronic recurrent pleural effusions requiring thoracentesis, restless leg syndrome, anxiety Anesthesia Reaction: No Hx Neurological Disorder: Yes (NEUROPATHY) Hx Respiratory Disorders: Yes (PLEURAL EFFUSION, O2 DEPENDENT) Hx Cardiac Disorders: Yes (HTN, HYPERLIPIDEMIA, PACEMAKER, STENT PLACEMENT, CARDIOMYOPATHY) Hx Psychiatric Problems: No Hx Miscellaneous Medical Probl: Yes (See EMR) Hx Alcohol Use: Yes Hx Substance Use: No Hx Tobacco Use: Yes FmHx Family History: No diabetes Physical Exam Vitals Vital Signs Date Time Temp Pulse Resp B/P Pulse Ox O2 Delivery O2 Flow Rate FiO2 09/07/17 13:45 Non Rebreather 15.0 09/07/17 13:07 Non Rebreather 15 09/07/17 13:07 Non Rebreather 15.0 09/07/17 12:26 97.9 109 30 176/90 100 Physical Exam GENERAL: Elderly, appears dehydrated, afebrile, dyspneic HEENT: Dry mucous membranes, pink conjunctiva, no cervical spine deformity, no jaundice NEURO: Alert and oriented 2, cranial nerves II through XII intact bilaterally, pupils equal round reactive to light, no focal deficits or facial asymmetry, sensation intact distally Strength 5/5 in upper and lower extremities bilaterally CARDIAC: Tachycardic and regular, no murmurs rubs or gallops LUNGS: Diminished breath sounds to the left lung, clear on the right ABDOMEN: Soft nontender, no guarding, no rigidity, no rebound, no psoas sign no obturator sign. SKIN: Warm and dry to touch, no abrasions, contusions, or hematomas, no lacerations, no ecchymosis, no target lesions, and without ulcers EXTREMITIES: No clubbing cyanosis or edema, calves are bilaterally symmetrical, no Homans sign, no popliteal cord sign. Distal pulses equal and bilateral PSYCH: Agitated Result Diagram: 09/07/17 1316 09/07/17 1316 Results 24 hrs Laboratory Tests Test 09/07/17 13:16 White Blood Count 6.410^3/ul Red Blood Count 3.7410^6/ul Hemoglobin 11.0g/dl Hematocrit 37.7% Mean Corpuscular Volume 100.8fl Mean Corpuscular Hemoglobin 29.4pg Mean Corpuscular Hemoglobin Concent 29.2g/dl Red Cell Distribution Width 17.6% Platelet Count 06320^3/UL Mean Platelet Volume 10.7fl Neutrophils % 64.5% Lymphocytes % 23.7% Monocytes % 7.8% Eosinophils % 2.8% Basophils % 0.9% Nucleated Red Blood Cells % 0.0/100WBC Neutrophils # 4.110^3/ul Lymphocytes # 1.510^3/ul Monocytes # 0.510^3/ul Eosinophils # 0.210^3/ul Basophils # 0.110^3/ul Nucleated Red Blood Cells # 0.010^3/ul Prothrombin Time 13.3Sec Prothrombin Time Ratio 1.0 INR International Normalized Ratio 1.01 Sodium Level 142mmol/L Potassium Level 4.8mmol/L Chloride Level 100mmol/L Carbon Dioxide Level 30mmol/L Anion Gap 17 Blood Urea Nitrogen 36mg/dl Creatinine 3.93mg/dl Glucose Level 94mg/dl Calcium Level 8.3mg/dl Total Bilirubin 0.0mg/dl Direct Bilirubin 0.00mg/dl Indirect Bilirubin 0.0mg/dl Aspartate Amino Transf (AST/SGOT) 42IU/L Alanine Aminotransferase (ALT/SGPT) 32IU/L Alkaline Phosphatase 236IU/L Troponin I 0.037ng/ml Total Protein 6.7g/dl Albumin 3.1g/dl Globulin 3.60g/dl Albumin/Globulin Ratio 0.86 Lipase 59U/L Procedures/MDM IV line was established patient was placed on electronic device monitor rhythm strip revealed a sinus rhythm at about 90 bpm with upright P and T waves. Patient was afebrile EKG performed, read by me revealed a normal sinus rhythm at 99 bpm, left axis deviation with a right bundle branch block, QRS duration 124 ms, prolonged QT of 508 ms, no concerning ST elevations or depressions noted. One view chest x-ray performed, read by me there is complete opacification of the left lung consistent with large pleural effusion, no pneumothorax, no air under the diaphragm. Antibiotics are deferred as patient is afebrile but he will require admission and thoracentesis. Critical Care: Time: 48 minutes, this was time separate from other billable procedures. Treatments/Evaluations: Close monitoring and treatment of unstable vital signs, cardiorespiratory, and neurologic status, while maintaining tight balance of fluid, respiratory, and cardiac interventions. I ordered ultrasound-guided thoracentesis although this will be performed as an inpatient. CBC was unremarkable, electrolytes revealed acute kidney injury with a BUN/ creatinine of 36/3.9 and acute hypocalcemia, liver function tests unremarkable, troponin was negative. Patient just received hemodialysis and will require imaging guided thoracentesis for left pleural effusion, I do not suspect blood. Patient admitted to Dr. Springer to telemetry setting. Departure Diagnosis: Primary Impression: Acute respiratory failure Respiratory failure complication: hypoxia and hypercapnia Qualified Code: J96.01 - Acute respiratory failure with hypoxia and hypercapnia Additional Impressions: Pleural effusion, left End stage kidney disease Chest pain Chest pain type: unspecified Qualified Code: R07.9 - Chest pain, unspecified type Condition: Serious BALA BERGERON MD Sep 07, 2017 12:37
[2017-09-07] MEDS ORDERED: ASPI81TA3 PO (12:53)
[2017-09-07] MEDS ORDERED: NITR0.4T32 SL (12:53)
--- NOTE | 2017-09-07 13:12 | RADRPT ---
PROCEDURE: XR Chest. CLINICAL INDICATION: abdominal pain TECHNIQUE: Single frontal view of the chest was obtained COMPARISON: 04/01/17 FINDINGS: There is new complete opacification of the left hemithorax. There is a right perihilar and right lower lobe infiltrate. There is mild cardiomegaly. The thoracic aorta is calcified. There is a right-sided pacemaker / AICD in place. There is no pneumothorax. RPTAT: AA IMPRESSION: New complete opacification of the left hemithorax, suspicious for effusion and atelectasis. Mild cardiomegaly with pulmonary vascular congestion. .Quentin Reyna MD, MD Date Time Electronically viewed and signed by .Quentin Reyna MD, MD on 09/07/2017 13:12 .S/
[2017-09-07 13:46] LABS: BASOPHIL # 0.1 10^3/ul (0.0-0.1); BASOPHILS % 0.9 % (0.0-2.0); EOSINOPHILS # 0.2 10^3/ul (0.0-0.5); EOSINOPHILS % 2.8 % (0.0-7.0); HEMATOCRIT 37.7 % (42.0-52.0); LYMPHOCYTES # 1.5 10^3/ul (0.8-2.9); LYMPHOCYTES % 23.7 % (15.0-51.0); MEAN CORPUSCULAR HEMOGLOBIN 29.4 pg (29.0-33.0); MEAN CORPUSCULAR HGB CONC 29.2 g/dl (32.0-37.0); MEAN CORPUSCULAR VOLUME 100.8 fl (82.0-101.0); MEAN PLATELET VOLUME 10.7 fl (7.4-10.4); MONOCYTE # 0.5 10^3/ul (0.3-0.9); MONOCYTES % 7.8 % (0.0-11.0); NEUTROPHIL # 4.1 10^3/ul (1.6-7.5); NEUTROPHILS % 64.5 % (39.0-77.0); PLATELET COUNT 180 10^3/UL (140-415); POSITIVE DIFF @See below; RED BLOOD COUNT 3.74 10^6/ul (4.70-6.10); RED CELL DISTRIBUTION WIDTH 17.6 % (11.5-14.5); WHITE BLOOD COUNT 6.4 10^3/ul (4.8-10.8)
[2017-09-07 14:04] LABS: INR 1.01; PROTIME 13.3 Sec (12.2-14.2)
[2017-09-07 14:07] LABS: ALBUMIN 3.1 g/dl (3.3-4.9); ALBUMIN/GLOBULIN RATIO 0.86; CALCIUM 8.3 mg/dl (8.4-10.2); CREATININE 3.93 mg/dl (0.61-1.24); POTASSIUM 4.8 mmol/L (3.5-5.1); TOTAL PROTEIN 6.7 g/dl (6.1-8.1)
[2017-09-07 14:16] LABS: TROPONIN-I 0.037 ng/ml (0.00-0.12)
[2017-09-07 15:00] VITALS: TEMP 97.9
[2017-09-07 15:27] VITALS: PULSE 102
[2017-09-07] MEDS ORDERED: BISACODYL 10 MG SUPP PR PRN (15:30)
[2017-09-07] MEDS ORDERED: NACL 0.9% 3 ML SYG IV SCH (15:30)
[2017-09-07] MEDS ORDERED: NITROGLYCERIN (SL) 0.4 MG TAB SL PRN (15:30)
[2017-09-07 16:00] VITALS: PULSE 101
[2017-09-07] MEDS ORDERED: ROPINIROLE 0.25 MG TAB PO PRN (16:00)
--- NOTE | 2017-09-07 19:08 | HP ---
DATE OF ADMISSION: 09/07/2017 REASON FOR ADMISSION: Recurrent left pleural effusion. HISTORY OF PRESENT ILLNESS: This is a 71-year-old gentleman well known to me with end-stage renal d isease due to diabetic nephropathy, currently dialyzing every Thursday, Thursday, and Thursday here at [facility], who is now admitted with sudden shortness of breath and recurrent left pleural effu abeby. The patient was recently at [facility] 08/19/2017, with some similar symptomatology. He was seen in consultation by Dr. Anaya at that time. He did undergo thoracentesis with removal of 1500 mL of clear fluid. Cultures and cytology of which were negative. He was seen earlier today at dialysis, doing well, when near the end of the treatment he suddenly be came short of breath and was sent to the ER where he was noted to be dyspneic, easily controlled wit h oxygen, but a chest x-ray showed a recurrent pleural effusion. Therefore, he is being admitted. I discussed this with Dr. Zaavleta, the radiologist, who recommended perhaps he might benefit from a Ple urX tube, but Dr. Zavaleta felt otherwise and therefore, the patient is to be admitted for ultrasound-gu ided thoracentesis. There has been no recent fevers, chills, sweats, nausea, vomiting, diarrhea or constipation. PAST MEDICAL HISTORY: Please see full dictated problem list. ALLERGIES: NONE. HABITS: Tobacco: None. Alcohol: None. MEDICATIONS: 1. Nephro-Evelio one daily. 2. Renvela 3 tabs t.i.d. with meals. 3. Ropinirole 1 mg q.i.d. for restless legs. 4. Ranexa 500 mg b.i.d. 5. Plavix 75 mg a day. 6. Aspirin 81 mg a day. 7. Allopurinol 100 mg a day. 8. Losartan 25 mg a day. 9. Xanax p.r.n. anxiety. REVIEW OF SYSTEMS: As per HPI, otherwise a 14-point review of systems is negative. PHYSICAL EXAMINATION: GENERAL: Awake, alert, somewhat anxious gentleman, otherwise in no acute distress. VITAL SIGNS: He is afebrile, blood pressure 168/84, heart rate is 80 and regular, respirations are 12 and unlabored, O2 saturation is 100% on a 15 liter mask. SKIN: Warm, well perfused. HEAD: Normocephalic, atraumatic. EYES: Pupils are round, reactive. Extraocular movements are full. Sclerae are anicteric. PHARYNX: No lesions. NECK: JVP is not distended. BACK: No CVAT. LUNGS: Show diminished breath sounds, nursing home up the chest on the left. HEART: S1, S2, regular rate and rhythm. ABDOMEN: Soft and nontender. EXTREMITIES: No cyanosis, clubbing or edema. There is a well functioning upper extremity AV fistul a. LABORATORY DATA: White count 6.4, hemoglobin 11, hematocrit 37.7, platelet count 180,000. INR is 1 .01. Sodium 142, potassium 4.8, chloride 100, bicarbonate 30, BUN 36, creatinine 3.93, calcium 8.3, total bilirubin is 0, AST 42, ALT 32, alkaline phosphatase 236, troponin 0.037, total protein 6.7, albumin is 3.1. Chest x-ray shows near complete opacification of the left hemithorax. EKG: Shows normal sinus rhythm with a right bundle branch block which is not new. PROBLEM LIST: 1. Recurrent pleural effusion, nonmalignant, noninfectious due to congestive heart failure. 2. Congestive heart failure inadequately ultrafiltered at dialysis due to patient discretion and re fusal for appropriate fluid removal. 3. Prior history of left-sided thoracentesis earlier this month, negative cytology and pathology. 4. Dyspnea due to above. 5. End-stage renal disease due to diabetic nephropathy, maintained on outpatient dialysis every Thu, Thursday, and Thursday. 6. Known ischemic cardiomyopathy status post multiple PCIs and stents in the past. 7. Recent history of biventricular AICD placement at [facility] in October of 2016. 8. Diabetes mellitus, currently diet controlled. 9. Status post prior renal transplantation x2 in the past. 10. Peripheral vascular disease. 11. Hyperlipidemia. 12. Restless leg syndrome, controlled with Ropinirole. 13. Hypertension, controlled on dialysis. 14. Remote history of gout, currently inactive. 15. Recent acute cholecystitis in June of 2017 successfully treated conservatively with IV ant ibiotics: Patient had refused surgical intervention. 16. Abnormality on CAT scans suspicious for colon carcinoma patient has refused multiple attempts a t colonoscopy. 17. Anxiety, controlled on current medications. RECOMMENDATIONS: 1. The patient has already been dialyzed today and chemistries are fine. 2. Thoracentesis per Dr. Zavaleta. 3. Will discuss with patient possible surgical intervention to avoid recurrent left pleural effusi on, he may need CT surgery consultation. Dictated By: POP BOYCE MD MM/RAYA Conf#: [id number] DID#: [id number] CC: POP BOYCE MD;*EndCC*
[2017-09-07 19:40] VITALS: BP 141/77; RESP 20
[2017-09-07 20:00] VITALS: PULSE 96
[2017-09-07] MEDS: HYDROCODONE/APAP (5/325) TAB PO PRN (20:15)
[2017-09-07] MEDS: CLOPIDOGREL 75 MG TAB PO SCH (21:00)
[2017-09-07] MEDS: RANOLAZINE (SR) 500 MG TAB PO SCH (21:31)
[2017-09-08] VITALS (12 sets, daily range): BP systolic 123–140; BP diastolic 59–72; PULSE 85–110; RESP 18–22
[2017-09-08] MEDS ORDERED: PANTOPRAZOLE (EC) 40 MG TAB PO SCH (06:00)
[2017-09-08] MEDS: PANTOPRAZOLE (EC) 40 MG TAB PO SCH ×2 (06:06→07:30)
--- NOTE | 2017-09-08 08:04 | CONS ---
Date/Time of Note Date/Time of Note DATE: 09/08/17 TIME: 07:53 Assessment/Plan Assessment/Plan Problems: (1) ESRD (end stage renal disease) on dialysis Status: Chronic Comment: on MWF... for dialysis in am (2) SOB (shortness of breath) Comment: due to white out of L chest due to pleural eff...for tap this am (3) Pleural effusion, left Status: Acute Comment: for thoracentesis today... did discuss placing Pleur-X w Dr Zavaleta yesterday, who was not in favor of it... will ask Pulm to see, for further recs about this recurrent non malignant pleural effusion.. will send fluid for cytology, cell count, cx, ldh, glucose and albumin (4) HTN (hypertension) Comment: controlled on current meds (5) Debility Comment: have asked Social Service and Legal Counsel to see pt, with regards to ultimate dispo, as has repeatedly told me she cannot mange this pt at home , and he has repeatedly refused rehab/SNF placement, despite my numerous discussions about this, with him Consultation Date/Type/Reason Admit Date/Time Sep 07, 2017 at 14:16 Initial Consult Date Type of Consultation: neph 24 HR Interval Summary Free Text/Dictation patient remains SOB... has still not had the thoracentesis done, despite multiple calls... he did come in yesterday, and was in the ER w these c/o at 1130 yesterday Exam/Review of Systems Vital Signs Vitals Vital Signs Date Time Temp Pulse Resp B/P Pulse Ox O2 Delivery O2 Flow Rate FiO2 09/08/17 04:00 85 09/08/17 03:58 97.5 20 123/60 100 09/08/17 02:13 15.0 09/07/17 19:30 Non Rebreather Intake and Output 09/07/17 09/07/17 09/08/17 15:00 23:00 07:00 Intake Total 300 ml 250 ml Balance 300 ml 250 ml Exam Constitutional: alert, oriented Eyes: nl conjunctiva Neck: supple Respiratory: diminished breath sounds (L chest) Cardiovascular: regular rate and rhythm Gastrointestinal: nl liver, spleen, soft Extremities: normal pulses (AVF LUE patent) Results Result Diagram: 09/07/17 1316 09/07/17 1316 Results 24 hrs Laboratory Tests Test 09/07/17 13:16 White Blood Count 6.4 Red Blood Count 3.74 L Hemoglobin 11.0 L Hematocrit 37.7 L Mean Corpuscular Volume 100.8 Mean Corpuscular Hemoglobin 29.4 Mean Corpuscular Hemoglobin Concent 29.2 L Red Cell Distribution Width 17.6 H Platelet Count 180 Mean Platelet Volume 10.7 H Neutrophils % 64.5 Lymphocytes % 23.7 Monocytes % 7.8 Eosinophils % 2.8 Basophils % 0.9 Nucleated Red Blood Cells % 0.0 Neutrophils # 4.1 Lymphocytes # 1.5 Monocytes # 0.5 Eosinophils # 0.2 Basophils # 0.1 Nucleated Red Blood Cells # 0.0 Prothrombin Time 13.3 Prothrombin Time Ratio 1.0 INR International Normalized Ratio 1.01 Sodium Level 142 Potassium Level 4.8 Chloride Level 100 Carbon Dioxide Level 30 Anion Gap 17 H Blood Urea Nitrogen 36 H Creatinine 3.93 H Glucose Level 94 Calcium Level 8.3 L Total Bilirubin 0.0 L Direct Bilirubin 0.00 Indirect Bilirubin 0.0 Aspartate Amino Transf (AST/SGOT) 42 Alanine Aminotransferase (ALT/SGPT) 32 Alkaline Phosphatase 236 H Troponin I 0.037 Total Protein 6.7 Albumin 3.1 L Globulin 3.60 H Albumin/Globulin Ratio 0.86 Lipase 59 Medications Medications Current Medications Allopurinol (Zyloprim) 100 mg DAILY PO ; Start 09/08/17 at 09:00 Alprazolam (Xanax) 0.25 mg QHS PRN PO ANXIETY; Start 09/07/17 at 15:30 Aspirin (Aspirin) 81 mg DAILY PO ; Start 09/08/17 at 09:00 Clopidogrel Bisulfate (plaVIX) 75 mg QHS PO ; Start 09/07/17 at 21:00 Losartan Potassium (Cozaar) 25 mg DAILY PO ; Start 09/08/17 at 09:00 Ranolazine (Ranexa) 500 mg Q12 PO Last administered on 09/07/17t 21:31; Admin Dose 500 MG; Start 09/07/17 at 21:00 Zolpidem Tartrate (Ambien) 7.5 mg QHS PRN PO INSOMNIA; Start 09/07/17 at 15:30 Ondansetron HCl (Zofran Tab) 4 mg Q6H PRN PO NAUSEA AND/OR VOMITING; Start at 15:30 Ondansetron HCl (Zofran Inj) 4 mg Q6H PRN IV NAUSEA AND/OR VOMITING; Start at 15:30 Acetaminophen (Tylenol Tab) 650 mg Q6H PRN PO PAIN LEVEL 1-3 OR FEVER; Start 09/07/17 at 15:30 Acetaminophen/ Hydrocodone Bitart ([place] (5/325)) 1 tab Q6H PRN PO MODERATE PAIN LEVEL 4-6 Last administered on 09/07/17t 20:15; Admin Dose 1 TAB; Start 09/07/17 at 15:30 Docusate Sodium (Colace) 100 mg Q12H PRN PO CONSTIPATION; Start 09/07/17 at 15 :30 Bisacodyl (Dulcolax) 5 mg DAILY PRN PO CONSTIPATION; Start 09/07/17 at 15:30 Bisacodyl (Dulcolax Supp) 10 mg DAILY PRN [place] CONSTIPATION; Start 09/07/17 at 15:30 Ropinirole HCl (Requip) 1 mg Q6 PRN PO MUSCLE SPASMS; Start 09/07/17 at 18:00 POP BOYCE MD Sep 08, 2017 08:04
[2017-09-08] MEDS: ASPIRIN 81 MG TAB PO SCH (09:00)
[2017-09-08] MEDS: LOSARTAN 25 MG TAB PO SCH (09:00)
[2017-09-08] MEDS ORDERED: LIDOCAINE 1% (MPF) 5 ML VIAL ONE (09:07)
--- NOTE | 2017-09-08 09:49 | RADRPT ---
PROCEDURE: US guided left thoracentesis. CLINICAL INDICATION: Shortness of breath. Left pleural effusion. TECHNIQUE: Prior to the procedure, informed consent was obtained. The risks, benefits, and alternatives were e xplained to the patient or the patient's family, including but not limited to bleeding, infection, p ain, visceral or vascular damage, shock, pneumothorax, chest tube placement, air embolism, and . The patient or the patient's family understood the risks and the alternatives and wished to proce ed with the study. Informed written consent was obtained. A procedural pause was performed. The patient's name, date of , and procedure to be performed were verified. Ultrasound of the left hemithorax was performed in the axial and sagittal planes. A left pleural eff usion is noted. Utilizing ultrasound guidance, optimal location for entry to the pleural cavity was ascertained. The overlying skin was prepped and draped in the usual sterile fashion. Approximately 10 ml of 1% Xylocaine was injected locally for pain control. Using ultrasound guidance, a 5-[place] Yueh catheter was introduced into the left pleural space without difficulty. Fluid was aspirated. COMPARISON: 08/20/2017. FINDINGS: Initial ultrasound demonstrates fluid in the left pleural space. Approximately 1.5 liters of serous fluid was aspirated and sent to the laboratory. IMPRESSION: 1. Satisfactory ultrasound-guided left thoracentesis. RPTAT: QQ .Lazaro Zavaleta MD, Date Time Electronically viewed and signed by .Lazaro Zavaleta MD, on 09/08/2017 09:49 .R/
--- NOTE | 2017-09-08 09:52 | RADRPT ---
PROCEDURE: XR Chest. CLINICAL INDICATION: Shortness of breath TECHNIQUE: Single portable view of the chest was obtained COMPARISON: CR CHEST 04/01/2017; CR CHEST 12/04/2016; CR CHEST 12/02/2016 FINDINGS: The trachea is midline. The cardiac silhouette and pulmonary vascularity are prominent. There are bi lateral lower lobe opacifications with left lower lobe consolidation and left-sided pleural effusion . Atherosclerotic calcification of the aortic knob is noted. A right-sided pacer device is noted. Ri ght-sided axillary stents are identified. IMPRESSION: 1. Cardiomegaly and pulmonary vascular congestion. Bilateral lower lobe infiltrates, with left lower lobe consolidation and left-sided pleural effusion. 2. No gross evidence of pneumothorax post thoracentesis. RPTAT: AAPP Physician Minoo Date Time Electronically viewed and signed by Physician Minoo on 09/08/2017 09:52 DOUG/
[2017-09-08] MEDS ORDERED: TESTOSTERONE CYPIONATE 200 MG/ML INJ IM ONE (10:00)
[2017-09-08] MEDS: ALLOPURINOL 100 MG TAB PO SCH (10:11)
[2017-09-08] MEDS: RANOLAZINE (SR) 500 MG TAB PO SCH ×2 (10:11→20:44)
[2017-09-08 10:39] LABS: FLD MN% 76.5 %; FLD PMN% 23.5 %; FLD RBC 1000 /uL; FLD WBC 85 /cmm
--- NOTE | 2017-09-08 11:16 | CONS ---
Date/Time of Note Date/Time of Note DATE: 09/08/17 TIME: 11:11 Assessment/Plan Assessment/Plan Additional Assessment/Plan Chest x-ray was reviewed which is showing a very minimal left pleural effusion now status post thoracentesis. Next Assessment and recommendations; 1. Patient admitted with recurrent left pleural effusion with history of prior 3 thoracentesis however the frequency of thoracentesis is not high according to the patient the last episode was a month ago and prior to that it was several years ago. 2. End-stage renal disease, on hemodialysis. 3. History of hypertension. Next At this time I would recommend discharging the patient and doing of follow-up chest x-ray in about 2 weeks. If the patient has recurrent left pleural effusion he would benefit from a VATS pleurodesis. Placement of a Pleurx catheter is not recommended because of low frequency of pleural effusion recurrence. Consultation Date/Type/Reason Admit Date/Time Sep 07, 2017 at 14:16 Date of Consultation: Sep 08, 2017 Type of Consultation: Pulmonary Reason for Consultation Pulmonary consultation requested for evaluation of recurrent left pleural effusion. Next History of presenting illness; patient is a pleasant 71-year-old male who was admitted yesterday with complaints of shortness of breath. Upon evaluation a chest x-ray was done which showed moderate left pleural effusion, patient underwent left thoracentesis with marked improvement in symptoms. According to the patient this is his fourth episode in the last several years. The last episode was a month ago where about 2 L of fluid was removed. He denies any chest pain, fever, wheezing, cough or sputum production. Past medical history; 1. History of end-stage renal disease, on hemodialysis. 2. Prior 3 thoracentesis on the left side. 3. Testosterone deficiency. 4. Hypertension. Medications; reviewed. Allergies; none. Social history; patient has a history of social alcohol use in the past according to him he has quit for several years now. No history of any tobacco abuse. Family history; patient he does not have any children. 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 Review of systems; denies any headache, visual changes, chest pain, shortness of breath is markedly improved. He has any coughing, sputum production hemoptysis or wheezing. Denies any abdominal pain, nausea vomiting. Patient is an uric. Denies any edema. Orthopnea has resolved. Denies any weight loss. General exam; elderly male, awake alert, currently in no distress. Past Surgical History Past Surgical Hx: other Social History Smoking Status: Former smoker Exam/Review of Systems Vital Signs Vitals Vital Signs Date Time Temp Pulse Resp B/P Pulse Ox O2 Delivery O2 Flow Rate FiO2 09/08/17 08:07 93 09/08/17 08:00 Non Rebreather 15.0 09/08/17 08:00 98.0 20 140/63 99 Intake and Output 09/07/17 09/07/17 09/08/17 15:00 23:00 07:00 Intake Total 300 ml 250 ml Balance 300 ml 250 ml Exam HEENT exam; supple neck, no JVD. No lymphadenopathy. Midline trachea. No thyromegaly. Has bilateral intraocular lens implants. Patient has a multiple carious teeth. Chest exam; minimally decreased breath sounds left lower lobe. Rest of the lung wright are clear. S1-S2 audible, no murmurs. Regular rhythm. Abdomen exam; soft, nontender. No organomegaly. Bowel sounds audible. Extremity exam; no peripheral edema. No clubbing. SIDE GUIDER exam; no focal deficit. Results Result Diagram: 09/07/17 1316 09/07/17 1316 Results 24 hrs Laboratory Tests Test 09/07/17 13:16 White Blood Count 6.4 Red Blood Count 3.74 L Hemoglobin 11.0 L Hematocrit 37.7 L Mean Corpuscular Volume 100.8 Mean Corpuscular Hemoglobin 29.4 Mean Corpuscular Hemoglobin Concent 29.2 L Red Cell Distribution Width 17.6 H Platelet Count 180 Mean Platelet Volume 10.7 H Neutrophils % 64.5 Lymphocytes % 23.7 Monocytes % 7.8 Eosinophils % 2.8 Basophils % 0.9 Nucleated Red Blood Cells % 0.0 Neutrophils # 4.1 Lymphocytes # 1.5 Monocytes # 0.5 Eosinophils # 0.2 Basophils # 0.1 Nucleated Red Blood Cells # 0.0 Prothrombin Time 13.3 Prothrombin Time Ratio 1.0 INR International Normalized Ratio 1.01 Sodium Level 142 Potassium Level 4.8 Chloride Level 100 Carbon Dioxide Level 30 Anion Gap 17 H Blood Urea Nitrogen 36 H Creatinine 3.93 H Glucose Level 94 Calcium Level 8.3 L Total Bilirubin 0.0 L Direct Bilirubin 0.00 Indirect Bilirubin 0.0 Aspartate Amino Transf (AST/SGOT) 42 Alanine Aminotransferase (ALT/SGPT) 32 Alkaline Phosphatase 236 H Troponin I 0.037 Total Protein 6.7 Albumin 3.1 L Globulin 3.60 H Albumin/Globulin Ratio 0.86 Lipase 59 Medications Medications Current Medications Allopurinol (Zyloprim) 100 mg DAILY PO Last administered on 09/08/17 10:11; Admin Dose 100 MG; Start 09/08/17 at 09:00 Alprazolam (Xanax) 0.25 mg QHS PRN PO ANXIETY; Start 09/07/17 at 15:30 Aspirin (Aspirin) 81 mg DAILY PO ; Start 09/08/17 at 09:00 Clopidogrel Bisulfate (plaVIX) 75 mg QHS PO ; Start 09/07/17 at 21:00 Losartan Potassium (Cozaar) 25 mg DAILY PO ; Start 09/08/17 at 09:00 Ranolazine (Ranexa) 500 mg Q12 PO Last administered on 09/08/17 10:11; Admin Dose 500 MG; Start 09/07/17 at 21:00 Zolpidem Tartrate (Ambien) 7.5 mg QHS PRN PO INSOMNIA; Start 09/07/17 at 15:30 Ondansetron HCl (Zofran Tab) 4 mg Q6H PRN PO NAUSEA AND/OR VOMITING; Start at 15:30 Ondansetron HCl (Zofran Inj) 4 mg Q6H PRN IV NAUSEA AND/OR VOMITING; Start at 15:30 Acetaminophen (Tylenol Tab) 650 mg Q6H PRN PO PAIN LEVEL 1-3 OR FEVER; Start 09/07/17 at 15:30 Acetaminophen/ Hydrocodone Bitart ([place] (5/325)) 1 tab Q6H PRN PO MODERATE PAIN LEVEL 4-6 Last administered on 09/07/17 20:15; Admin Dose 1 TAB; Start 09/07/17 at 15:30 Docusate Sodium (Colace) 100 mg Q12H PRN PO CONSTIPATION; Start 09/07/17 at 15 :30 Bisacodyl (Dulcolax) 5 mg DAILY PRN PO CONSTIPATION; Start 09/07/17 at 15:30 Bisacodyl (Dulcolax Supp) 10 mg DAILY PRN [place] CONSTIPATION; Start 09/07/17 at 15:30 Ropinirole HCl (Requip) 1 mg Q6 PRN PO MUSCLE SPASMS; Start 09/07/17 at 18:00 YUSUF FLAHERTY Sep 08, 2017 11:16
[2017-09-08 11:28] LABS: FLUID TYPE PLEURAL FLUID
[2017-09-08 11:29] LABS: FLUID GLUCOSE 83 mg/dl; FLUID LD 236 U/L; FLUID TYPE PLEURAL FLUID
[2017-09-08 11:45] LABS: FLD CLARITY CLEAR; FLD COLOR YELLOW; FLD TYPE PLEURAL
[2017-09-08 12:22] LABS: BASOPHIL # 0.1 10^3/ul (0.0-0.1); BASOPHILS % 1.2 % (0.0-2.0); EOSINOPHILS # 0.1 10^3/ul (0.0-0.5); EOSINOPHILS % 2.5 % (0.0-7.0); HEMATOCRIT 41.3 % (42.0-52.0); LYMPHOCYTES # 1.2 10^3/ul (0.8-2.9); LYMPHOCYTES % 20.7 % (15.0-51.0); MEAN CORPUSCULAR HEMOGLOBIN 29.3 pg (29.0-33.0); MEAN CORPUSCULAR HGB CONC 29.1 g/dl (32.0-37.0); MEAN PLATELET VOLUME 10.1 fl (7.4-10.4); MONOCYTE # 0.2 10^3/ul (0.3-0.9); MONOCYTES % 4.2 % (0.0-11.0); NEUTROPHILS % 71.2 % (39.0-77.0); PLATELET COUNT 213 10^3/UL (140-415); RED BLOOD COUNT 4.09 10^6/ul (4.70-6.10); RED CELL DISTRIBUTION WIDTH 17.4 % (11.5-14.5); WHITE BLOOD COUNT 5.7 10^3/ul (4.8-10.8)
[2017-09-08 12:38] LABS: ALBUMIN 2.9 g/dl (3.3-4.9); ALBUMIN/GLOBULIN RATIO 0.76; CALCIUM 9.8 mg/dl (8.4-10.2); CREATININE 4.76 mg/dl (0.61-1.24); PHOSPHORUS 4.1 mg/dl (2.5-4.9); POTASSIUM 4.8 mmol/L (3.5-5.1); TOTAL PROTEIN 6.7 g/dl (6.1-8.1)
[2017-09-08 13:09] LABS: THYROID STIMULATING HORMONE 2.06 MIU/L (0.465-4.680)
[2017-09-08] MEDS: CLOPIDOGREL 75 MG TAB PO SCH (20:44)
[2017-09-08] MEDS: ROPINIROLE 0.25 MG TAB PO PRN (20:48)
[2017-09-08] MEDS: HYDROCODONE/APAP (5/325) TAB PO PRN (20:54)
[2017-09-08] MEDS: ZOLPIDEM 5 MG TAB PO PRN (23:39)
[2017-09-09] VITALS (19 sets, daily range): BP systolic 102–161; BP diastolic 43–80; PULSE 83–100; RESP 18–20
--- NOTE | 2017-09-09 08:10 | PN ---
Date/Time of Note Date/Time of Note DATE: 09/09/17 TIME: 08:05 Assessment/Plan VTE Prophylaxis VTE Prophylaxis Intervention: other Lines/Catheters IV Catheter Type (from Nrs): Saline Lock Urinary Cath still in place: No Assessment/Plan Assessment/Plan 1. Recurrent left pleural effusion, s/p tap with sl some improvement in sob, surgical intervention is being considered. 2. Chronic CHF, will UF max as tolerated. 3. Known ischemic ht dz, without angina today 4. Hx DM, diet controlled. 5. Dr. Johnson rev with his at length yesterday is current condition. 6. SQ heparin added to his medical regimen. Subjective 24 Hr Interval Summary Respiratory: cough (is intermittent and not productive), shortness of breath ( is mild), No pleuritic pain Cardiovascular: No chest pain Gastrointestinal: no complaints Genitourinary: no complaints Neurologic: No headache Exam/Review of Systems Vital Signs Vitals Vital Signs Date Time Temp Pulse Resp B/P Pulse Ox O2 Delivery O2 Flow Rate FiO2 09/09/17 04:40 96.2 84 20 149/65 96 09/09/17 01:12 15.0 09/08/17 19:30 Non Rebreather Intake and Output 09/08/17 09/08/17 09/09/17 14:59 22:59 06:59 Intake Total 500 ml 400 ml Balance 500 ml 400 ml Exam Neck: jvd (is present) Respiratory: diminished breath sounds, No crackles/rales Cardiovascular: regular rate and rhythm, No S3 Gastrointestinal: soft Extremities: edema (brawny is present without calf tend) Results Result Diagram: 09/08/17 1149 09/08/17 1149 Results 24 hrs Laboratory Tests Test 09/08/17 09:00 09/08/17 11:49 Body Fluid Type PLEURAL FLUID Body Fluid Volume 1000.0 Body Fluid Color YELLOW Body Fluid Appearance CLEAR Body Fluid WBC 85 Body Fluid RBC (Auto) 1000 Body Fluid Polynuclear WBCs (%) 23.5 Body Fluid Mononuclear Cells % Auto 76.5 Body Fluid Glucose 83 Body Fluid Lactate Dehydrogenase 236 White Blood Count 5.7 Red Blood Count 4.09 L Hemoglobin 12.0 L Hematocrit 41.3 L Mean Corpuscular Volume 101.0 Mean Corpuscular Hemoglobin 29.3 Mean Corpuscular Hemoglobin Concent 29.1 L Red Cell Distribution Width 17.4 H Platelet Count 213 Mean Platelet Volume 10.1 Neutrophils % 71.2 Lymphocytes % 20.7 Monocytes % 4.2 Eosinophils % 2.5 Basophils % 1.2 Nucleated Red Blood Cells % 0.0 Neutrophils # 4.0 Lymphocytes # 1.2 Monocytes # 0.2 L Eosinophils # 0.1 Basophils # 0.1 Nucleated Red Blood Cells # 0.0 Sodium Level 142 Potassium Level 4.8 Chloride Level 101 Carbon Dioxide Level 32 H Anion Gap 14 Blood Urea Nitrogen 45 H Creatinine 4.76 H Glucose Level 131 Calcium Level 9.8 Phosphorus Level 4.1 Total Bilirubin 0.0 L Direct Bilirubin 0.00 Indirect Bilirubin 0.0 Aspartate Amino Transf (AST/SGOT) 68 #H Alanine Aminotransferase (ALT/SGPT) 44 Alkaline Phosphatase 290 H Total Protein 6.7 Albumin 2.9 L Globulin 3.80 H Albumin/Globulin Ratio 0.76 Thyroid Stimulating Hormone (TSH) 2.060 Medications Medications Current Medications Allopurinol (Zyloprim) 100 mg DAILY PO Last administered on 09/08/17 10:11; Admin Dose 100 MG; Start 09/08/17 at 09:00 Alprazolam (Xanax) 0.25 mg QHS PRN PO ANXIETY; Start 09/07/17 at 15:30 Aspirin (Aspirin) 81 mg DAILY PO ; Start 09/08/17 at 09:00 Clopidogrel Bisulfate (plaVIX) 75 mg QHS PO Last administered on 09/08/17 20: 44; Admin Dose 75 MG; Start 09/07/17 at 21:00 Losartan Potassium (Cozaar) 25 mg DAILY PO ; Start 09/08/17 at 09:00 Ranolazine (Ranexa) 500 mg Q12 PO Last administered on 09/08/17 20:44; Admin Dose 500 MG; Start 09/07/17 at 21:00 Zolpidem Tartrate (Ambien) 7.5 mg QHS PRN PO INSOMNIA Last administered on 23:39; Admin Dose 7.5 MG; Start 09/07/17 at 15:30 Ondansetron HCl (Zofran Tab) 4 mg Q6H PRN PO NAUSEA AND/OR VOMITING; Start at 15:30 Ondansetron HCl (Zofran Inj) 4 mg Q6H PRN IV NAUSEA AND/OR VOMITING; Start at 15:30 Acetaminophen (Tylenol Tab) 650 mg Q6H PRN PO PAIN LEVEL 1-3 OR FEVER; Start 09/07/17 at 15:30 Acetaminophen/ Hydrocodone Bitart ([place] (5/325)) 1 tab Q6H PRN PO MODERATE PAIN LEVEL 4-6 Last administered on 09/08/17 20:54; Admin Dose 1 TAB; Start 09/07/17 at 15:30 Docusate Sodium (Colace) 100 mg Q12H PRN PO CONSTIPATION; Start 09/07/17 at 15 :30 Bisacodyl (Dulcolax) 5 mg DAILY PRN PO CONSTIPATION; Start 09/07/17 at 15:30 Bisacodyl (Dulcolax Supp) 10 mg DAILY PRN [place] CONSTIPATION; Start 09/07/17 at 15:30 Ropinirole HCl (Requip) 1 mg Q6 PRN PO MUSCLE SPASMS Last administered on 09/08 20:48; Admin Dose 1 MG; Start 09/07/17 at 18:00 ALONZO SERRA MD Sep 09, 2017 08:10
[2017-09-09] MEDS: ROPINIROLE 0.25 MG TAB PO PRN ×3 (08:20→20:38)
[2017-09-09] MEDS: PANTOPRAZOLE (EC) 40 MG TAB PO SCH (08:20)
[2017-09-09] MEDS: LOSARTAN 25 MG TAB PO SCH (09:00)
[2017-09-09] MEDS: HEPARIN 5,000 UNIT/0.5 ML VIAL SC SCH ×2 (09:00→20:38)
--- NOTE | 2017-09-09 11:59 | RADRPT ---
PROCEDURE: US bilateral lower extremity veins. CLINICAL INDICATION: Shortness of breath. TECHNIQUE: Multiple longitudinal and transverse images of the bilateral lower extremity veins were obtained with encarnacion scale and color Doppler imaging. The common femoral vein, femoral vein, and popl iteal vein were evaluated. 2D grayscale measurements with compression sonography, color Doppler, and pulsed Doppler with augmentation. COMPARISON: No prior studies are available for comparison. FINDINGS: The bilateral common femoral, femoral and popliteal veins are normally compressible throughout. Col or flow demonstrates normal filling of the vessels. Normal waveforms are visualized and there is no rmal response to augmentation. IMPRESSION: 1. No evidence of deep vein thrombosis involving either lower extremity. RPTAT: QQ .Lazaro Zavaleta MD, MD Date Time Electronically viewed and signed by .Lazaro Zavaleta MD, on 09/09/2017 11:59 .R/
[2017-09-09] MEDS: ALBUMIN HUMAN 25% 100 ML IV PRN ×2 (13:11→13:53)
[2017-09-09] MEDS: ASPIRIN 81 MG TAB PO SCH (13:51)
[2017-09-09] MEDS: RANOLAZINE (SR) 500 MG TAB PO SCH ×2 (13:53→20:39)
[2017-09-09] MEDS: SEVELAMER 800 MG TAB PO SCH ×2 (13:53→17:27)
[2017-09-09] MEDS: ALLOPURINOL 100 MG TAB PO SCH (13:53)
--- NOTE | 2017-09-09 14:28 | CONS ---
Date/Time of Note Date/Time of Note DATE: 09/09/17 TIME: 14:26 Consult Date/Type/Reason Admit Date/Time Sep 07, 2017 at 14:16 Initial Consult Date 09/08/17 Type of Consultation: Pulmonary Subjective Patient having hemodialysis this morning. Continues Ventimask oxygen. Awake alert and oriented. Objective Vital Signs Date Time Temp Pulse Resp B/P Pulse Ox O2 Delivery O2 Flow Rate FiO2 09/09/17 13:30 94 20 09/09/17 12:16 97.9 161/80 100 09/09/17 08:00 Non Rebreather 15.0 Intake and Output 09/08/17 09/08/17 09/09/17 15:00 23:00 07:00 Intake Total 500 ml 400 ml Balance 500 ml 400 ml Exam GENERAL: Elderly gentleman comfortable at rest no acute distress VITAL SIGNS: per chart NECK: Supple. No JVD or lymphadenopathy. CARDIAC EXAM: S1, S2. No added sounds or murmurs. CHEST: Diminished air entry right lung ABDOMEN: Soft, nontender. No guarding or rebound. EXTREMITIES: No cyanosis, clubbing or edema. NEUROLOGIC: Generalized weakness. No focal deficits. Results/Medications Result Diagram: 09/08/17 1149 09/08/17 1149 Medications Current Medications Allopurinol (Zyloprim) 100 mg DAILY PO Last administered on 09/09/17 13:53; Admin Dose 100 MG; Start 09/08/17 at 09:00 Alprazolam (Xanax) 0.25 mg QHS PRN PO ANXIETY; Start 09/07/17 at 15:30 Aspirin (Aspirin) 81 mg DAILY PO Last administered on 09/09/17 13:51; Admin Dose 81 MG; Start 09/08/17 at 09:00 Clopidogrel Bisulfate (plaVIX) 75 mg QHS PO Last administered on 09/08/17 20: 44; Admin Dose 75 MG; Start 09/07/17 at 21:00 Losartan Potassium (Cozaar) 25 mg DAILY PO ; Start 09/08/17 at 09:00 Ranolazine (Ranexa) 500 mg Q12 PO Last administered on 09/09/17 13:53; Admin Dose 500 MG; Start 09/07/17 at 21:00 Zolpidem Tartrate (Ambien) 7.5 mg QHS PRN PO INSOMNIA Last administered on 23:39; Admin Dose 7.5 MG; Start 09/07/17 at 15:30 Ondansetron HCl (Zofran Tab) 4 mg Q6H PRN PO NAUSEA AND/OR VOMITING; Start at 15:30 Ondansetron HCl (Zofran Inj) 4 mg Q6H PRN IV NAUSEA AND/OR VOMITING; Start at 15:30 Acetaminophen (Tylenol Tab) 650 mg Q6H PRN PO PAIN LEVEL 1-3 OR FEVER; Start 09/07/17 at 15:30 Acetaminophen/ Hydrocodone Bitart ([place] (5/325)) 1 tab Q6H PRN PO MODERATE PAIN LEVEL 4-6 Last administered on 09/08/17 20:54; Admin Dose 1 TAB; Start 09/07/17 at 15:30 Docusate Sodium (Colace) 100 mg Q12H PRN PO CONSTIPATION; Start 09/07/17 at 15 :30 Bisacodyl (Dulcolax) 5 mg DAILY PRN PO CONSTIPATION; Start 09/07/17 at 15:30 Bisacodyl (Dulcolax Supp) 10 mg DAILY PRN [place] CONSTIPATION; Start 09/07/17 at 15:30 Ropinirole HCl (Requip) 1 mg Q6 PRN PO MUSCLE SPASMS Last administered on 09/09 13:58; Admin Dose 1 MG; Start 09/07/17 at 18:00 Heparin Sodium (Porcine) (Heparin (5000 Units/0.5 ml)) 5,000 unit BID SC ; Start 09/09/17 at 09:00 Mupirocin (Bactroban) 1 applic BID TOP ; Start 09/09/17 at 21:00 Assessment/Plan Chief Complaint/Hosp Course Assessment 1. End-stage renal failure on hemodialysis 2. Recurrent right pleural effusion with monthly thoracentesis 3. History of hypertension 4. Hypoxemic respiratory failure secondary to above Plan 1. Continue hemodialysis with volume removal. 2. Discussed with patient need for Pleurx catheter or pleurodesis. Patient is reluctant to have Pleurx catheter placed. Considering pleurodesis however patient is high risk for general anesthetic. Problems: MUKUND URBANO MD, [facility] Sep 09, 2017 14:28
[2017-09-09] MEDS: HYDROCODONE/APAP (5/325) TAB PO PRN (20:39)
[2017-09-09] MEDS: CLOPIDOGREL 75 MG TAB PO SCH (20:39)
[2017-09-09] MEDS: MUPIROCIN 2% 22 GM OINT TOP SCH (20:40)
[2017-09-09] MEDS: ZOLPIDEM 5 MG TAB PO PRN (21:55)
[2017-09-10] VITALS (13 sets, daily range): BP systolic 135–158; BP diastolic 58–77; PULSE 92–105; RESP 17–19
[2017-09-10] MEDS: RANOLAZINE (SR) 500 MG TAB PO SCH ×2 (08:24→21:19)
[2017-09-10] MEDS: PANTOPRAZOLE (EC) 40 MG TAB PO SCH (08:24)
[2017-09-10] MEDS: SEVELAMER 800 MG TAB PO SCH ×3 (08:24→17:37)
[2017-09-10] MEDS: ASPIRIN 81 MG TAB PO SCH (08:24)
[2017-09-10] MEDS: ALLOPURINOL 100 MG TAB PO SCH (08:26)
[2017-09-10] MEDS: ROPINIROLE 0.25 MG TAB PO PRN ×2 (08:26→21:37)
[2017-09-10] MEDS: LOSARTAN 25 MG TAB PO SCH (08:27)
[2017-09-10] MEDS: MUPIROCIN 2% 22 GM OINT TOP SCH ×2 (08:27→21:20)
[2017-09-10] MEDS: HEPARIN 5,000 UNIT/0.5 ML VIAL SC SCH ×3 (08:30→21:22)
--- NOTE | 2017-09-10 10:02 | RADRPT ---
PROCEDURE: XR Chest. CLINICAL INDICATION: Shortness of breath. TECHNIQUE: Single frontal view. COMPARISON: 09/08/2017. FINDINGS: There is pulmonary edema, slightly worse than seen previously. There is a moderate left pleural effu abbey and left basilar atelectasis, slightly worse than seen previously. The heart is mildly enlarged. There is calcification in the aorta consistent with atherosclerosis. A right-sided biventricular pacemaker/internal cardiac defibrillator is once again noted. There is no pneumothorax. IMPRESSION: 1. Slightly worse pulmonary edema. 2. Slightly worse appearance of the left lung again larger left pleural effusion. 3. No other change from the 09/08/2017 chest radiograph. RPTAT: QQ .Lazaro Zavaleta MD, MD Date Time Electronically viewed and signed by .Lazaro Zavaleta MD, MD on 09/10/2017 10:02 .R/
--- NOTE | 2017-09-10 10:25 | CONS ---
Date/Time of Note Date/Time of Note DATE: 09/10/17 TIME: : Assessment/Plan Assessment/Plan Chief Complaint/Hosp Course 1. Preoperative examination: Left pleurodesis would be a low to intermediate risk type procedure. Patient does have elevated risk due to extensive cardiac history. However do not feel cardiac risk is prohibitive. He may proceed without further cardiac workup. This procedure is likely to more benefit him than her name given recurrent admission for thoracentesis and hypoxia. Would continue cardiac medications perioperatively to minimize cardiac risk. 2. ICM- LVEF 30-35%, s/p BiV ICD, chronic NYHA III on home o2 3. Acute on Chronic diastolic+systolic heart failure - fluid mgmt with iHD. recurrent L pleural effusion 4 Chronic renal failure on dialysis failed to prior transplants per history. 5. Hyperlipidemia. 6. CAD- s/p many previous PCI. 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 patent lad/Diag stents. distal RCA disease s/p PCI 11/2016 7. pleural effusion chronic likely from chornic fluid overload- s/p pleurex catheter placement Impression: - preop eval as above - con asa 81mg daily - cont plavix 75 mg daily, ok to hold for procedures - pt intolerant of bb/nitrate previously - cont losartan - cont statin - cont dialysis per renal Problems: Consultation Date/Type/Reason Admit Date/Time Sep 07, 2017 at 14:16 Date of Consultation: Sep 10, 2017 Type of Consultation: cardiology Reason for Consultation preopcv exam Referring Provider: POP BOYCE MD Hx of Present Illness Mrs. Clemens is a 71-year-old man with previous history of severe multivessel coronary disease with numerous previous stents and non-STEMI's., Severe ischemic cardiac myopathy LVEF 35%. Patient presenting with recurrent pleural effusion on the left side unable to be managed with dialysis alone. Status post left thoracentesis. Patient now being evaluated for left pleurodesis versus Pleurx catheter placement. I was requested by nursing and patient is to evaluate him for cardiac risk for procedure to aid in decision making. pt currently remains on high flow o2, states he has sob with walking short distances. no palpitations, dizziness, fainting, shocks, no current cp/ discomfort. no edema. all other systems negative Past Medical History 1. CAD- multiple PCI 2. Chronic kidney disease, on dialysis. via L arm fistula 3. Hypertension. 4. Hyperlipidemia. 5. Peripheral vascular disease. 6. 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 7. Ischemic cardiomyopathy with moderate systolic dysfunction, chronic systolic heart failure 8 LBBB QRS 170ms s/p BiV ICD at [facility] [employer] device Past Surgical History PCI kidney transplant L arm fistula placement Past Surgical Hx: other (pacemaker) Family History Significant Family History: other (no early cad) Social History Alcohol Use: none Smoking Status: Never smoker Drug Use: none Past Surgical History Past Surgical Hx: other Exam/Review of Systems Vital Signs Vitals Vital Signs Date Time Temp Pulse Resp B/P Pulse Ox O2 Delivery O2 Flow Rate FiO2 09/10/17 08:16 98.8 97 18 145/67 100 09/09/17 19:00 Non Rebreather 15.0 Intake and Output 09/09/17 09/09/17 09/10/17 14:59 22:59 06:59 Intake Total 500 ml 950 ml 700 ml Output Total 3500 ml Balance -3000 ml 950 ml 700 ml Exam Constitutional: alert, oriented Psych: normal mood Head: normocephalic Eyes: nl conjunctiva ENMT: nl external ears & nose Neck: jvd, supple Respiratory: mild decreased bs L side Cardiovascular: regular rate and rhythm, ii/vi broderick rusb. No edema Gastrointestinal: soft, no ttp Ext: L fistula + thrill Results Result Diagram: 09/08/17 1149 09/08/17 1149 Medications Medications Current Medications Allopurinol (Zyloprim) 100 mg DAILY PO Last administered on 09/10/17 08:26; Admin Dose 100 MG; Start 09/08/17 at 09:00 Alprazolam (Xanax) 0.25 mg QHS PRN PO ANXIETY; Start 09/07/17 at 15:30 Aspirin (Aspirin) 81 mg DAILY PO Last administered on 09/10/17 08:24; Admin Dose 81 MG; Start 09/08/17 at 09:00 Clopidogrel Bisulfate (plaVIX) 75 mg QHS PO Last administered on 09/09/17 20: 39; Admin Dose 75 MG; Start 09/07/17 at 21:00 Losartan Potassium (Cozaar) 25 mg DAILY PO ; Start 09/08/17 at 09:00 Ranolazine (Ranexa) 500 mg Q12 PO Last administered on 09/10/17 08:24; Admin Dose 500 MG; Start 09/07/17 at 21:00 Zolpidem Tartrate (Ambien) 7.5 mg QHS PRN PO INSOMNIA Last administered on 21:55; Admin Dose 7.5 MG; Start 09/07/17 at 15:30 Ondansetron HCl (Zofran Tab) 4 mg Q6H PRN PO NAUSEA AND/OR VOMITING; Start at 15:30 Ondansetron HCl (Zofran Inj) 4 mg Q6H PRN IV NAUSEA AND/OR VOMITING; Start at 15:30 Acetaminophen (Tylenol Tab) 650 mg Q6H PRN PO PAIN LEVEL 1-3 OR FEVER; Start 09/07/17 at 15:30 Acetaminophen/ Hydrocodone Bitart ([place] (5/325)) 1 tab Q6H PRN PO MODERATE PAIN LEVEL 4-6 Last administered on 09/09/17 20:39; Admin Dose 1 TAB; Start 09/07/17 at 15:30 Docusate Sodium (Colace) 100 mg Q12H PRN PO CONSTIPATION; Start 09/07/17 at 15 :30 Bisacodyl (Dulcolax) 5 mg DAILY PRN PO CONSTIPATION; Start 09/07/17 at 15:30 Bisacodyl (Dulcolax Supp) 10 mg DAILY PRN [place] CONSTIPATION; Start 09/07/17 at 15:30 Ropinirole HCl (Requip) 1 mg Q6 PRN PO MUSCLE SPASMS Last administered on 09/10 08:26; Admin Dose 1 MG; Start 09/07/17 at 18:00 Heparin Sodium (Porcine) (Heparin (5000 Units/0.5 ml)) 5,000 unit BID SC ; Start 09/09/17 at 09:00 Mupirocin (Bactroban) 1 applic BID TOP Last administered on 09/10/17 08:27; Admin Dose 1 APPLIC; Start 09/09/17 at 21:00 Procedures Procedures cxr report, provider notes reviewed in emr SUSANA VASQUEZ Sep 10, 2017 10:25
--- NOTE | 2017-09-10 13:09 | CONS ---
Date/Time of Note Date/Time of Note DATE: 09/10/17 TIME: 13:08 Consult Date/Type/Reason Admit Date/Time Sep 07, 2017 at 14:16 Initial Consult Date 09/08/17 Type of Consultation: Pulmonary Subjective Patient comfortable this morning. Has mild increasing shortness of breath. Worsening orthopnea. Continues facemask oxygen. Objective Vital Signs Date Time Temp Pulse Resp B/P Pulse Ox O2 Delivery O2 Flow Rate FiO2 09/10/17 12:08 96 09/10/17 12:03 98.0 18 135/65 98 09/10/17 07:45 Non Rebreather 09/09/17 19:00 15.0 Intake and Output 09/09/17 09/09/17 09/10/17 15:00 23:00 07:00 Intake Total 500 ml 950 ml 700 ml Output Total 3500 ml Balance -3000 ml 950 ml 700 ml Exam GENERAL: Elderly gentleman comfortable at rest no acute distress VITAL SIGNS: per chart NECK: Supple. No JVD or lymphadenopathy. CARDIAC EXAM: S1, S2. No added sounds or murmurs. CHEST: Diminished air entry right lung ABDOMEN: Soft, nontender. No guarding or rebound. EXTREMITIES: No cyanosis, clubbing or edema. NEUROLOGIC: Generalized weakness. No focal deficits. Results/Medications Result Diagram: 09/08/17 1149 09/08/17 1149 Results 24 hrs Chest x-ray Increasing left pleural effusion. Medications Current Medications Allopurinol (Zyloprim) 100 mg DAILY PO Last administered on 09/10/17 08:26; Admin Dose 100 MG; Start 09/08/17 at 09:00 Alprazolam (Xanax) 0.25 mg QHS PRN PO ANXIETY; Start 09/07/17 at 15:30 Aspirin (Aspirin) 81 mg DAILY PO Last administered on 09/10/17 08:24; Admin Dose 81 MG; Start 09/08/17 at 09:00 Clopidogrel Bisulfate (plaVIX) 75 mg QHS PO Last administered on 09/09/17 20: 39; Admin Dose 75 MG; Start 09/07/17 at 21:00 Losartan Potassium (Cozaar) 25 mg DAILY PO ; Start 09/08/17 at 09:00 Ranolazine (Ranexa) 500 mg Q12 PO Last administered on 09/10/17 08:24; Admin Dose 500 MG; Start 09/07/17 at 21:00 Zolpidem Tartrate (Ambien) 7.5 mg QHS PRN PO INSOMNIA Last administered on 21:55; Admin Dose 7.5 MG; Start 09/07/17 at 15:30 Ondansetron HCl (Zofran Tab) 4 mg Q6H PRN PO NAUSEA AND/OR VOMITING; Start at 15:30 Ondansetron HCl (Zofran Inj) 4 mg Q6H PRN IV NAUSEA AND/OR VOMITING; Start at 15:30 Acetaminophen (Tylenol Tab) 650 mg Q6H PRN PO PAIN LEVEL 1-3 OR FEVER; Start 09/07/17 at 15:30 Acetaminophen/ Hydrocodone Bitart ([place] (5/325)) 1 tab Q6H PRN PO MODERATE PAIN LEVEL 4-6 Last administered on 09/09/17 20:39; Admin Dose 1 TAB; Start 09/07/17 at 15:30 Docusate Sodium (Colace) 100 mg Q12H PRN PO CONSTIPATION; Start 09/07/17 at 15 :30 Bisacodyl (Dulcolax) 5 mg DAILY PRN PO CONSTIPATION; Start 09/07/17 at 15:30 Bisacodyl (Dulcolax Supp) 10 mg DAILY PRN [place] CONSTIPATION; Start 09/07/17 at 15:30 Ropinirole HCl (Requip) 1 mg Q6 PRN PO MUSCLE SPASMS Last administered on 09/10 08:26; Admin Dose 1 MG; Start 09/07/17 at 18:00 Heparin Sodium (Porcine) (Heparin (5000 Units/0.5 ml)) 5,000 unit BID SC ; Start 09/09/17 at 09:00 Mupirocin (Bactroban) 1 applic BID TOP Last administered on 09/10/17 08:27; Admin Dose 1 APPLIC; Start 09/09/17 at 21:00 Assessment/Plan Chief Complaint/Hosp Course Assessment 1. End-stage renal failure on hemodialysis 2. Recurrent pleural effusion. Requiring frequent thoracentesis. 3. History of hypertension 4. Hypoxemic respiratory failure secondary to above Plan 1. Continue hemodialysis with volume removal. 2. Long discussion again with patient today regarding need for Pleurx catheter. He is agreeable I have requested a cath to be placed by radiology. Problems: MUKUND URBANO MD, [facility] Sep 10, 2017 13:09
[2017-09-10] MEDS: ALBUTEROL/IPRATROPIUM (NEB) 3 ML AMP HHN PRN ×2 (13:15→20:30)
[2017-09-10] MEDS: HYDROCODONE/APAP (5/325) TAB PO PRN (13:35)
--- NOTE | 2017-09-10 14:13 | CONS ---
Date/Time of Note Date/Time of Note DATE: 09/10/17 TIME: 14:11 Assessment/Plan Assessment/Plan Additional Assessment/Plan 1. End-stage renal failure on hemodialysis: next hd in am and q m// 2. Recurrent pleural effusion. Requiring frequent thoracentesis.now agreable for pleurex and arrangements in being made by pulm 3. History of hypertension: stable 4. Hypoxemic respiratory failure secondary to above: improved 5-known severe cad: no further intervention planned 6- anemia in esrd: epogen prn to keep hb> 10 Consultation Date/Type/Reason Admit Date/Time Sep 07, 2017 at 14:16 Initial Consult Date 09/08/17 Type of Consultation: Pulmonary 24 HR Interval Summary Free Text/Dictation complains that he feels very weak and has chronic sob. very frustrated Exam/Review of Systems Vital Signs Vitals Vital Signs Date Time Temp Pulse Resp B/P Pulse Ox O2 Delivery O2 Flow Rate FiO2 09/10/17 13:12 99 20 98 Simple Mask 12.0 09/10/17 12:03 98.0 135/65 Intake and Output 09/09/17 09/09/17 09/10/17 15:00 23:00 07:00 Intake Total 500 ml 950 ml 700 ml Output Total 3500 ml Balance -3000 ml 950 ml 700 ml Exam Constitutional: alert, oriented Head: atraumatic, normocephalic ENMT: nl external ears & nose Neck: non-tender, supple Respiratory: diminished breath sounds Cardiovascular: edema, nl pulses, regular rate and rhythm Gastrointestinal: soft Results Result Diagram: 09/08/17 1149 09/08/17 1149 Medications Medications Current Medications Allopurinol (Zyloprim) 100 mg DAILY PO Last administered on 09/10/17 08:26; Admin Dose 100 MG; Start 09/08/17 at 09:00 Alprazolam (Xanax) 0.25 mg QHS PRN PO ANXIETY; Start 09/07/17 at 15:30 Aspirin (Aspirin) 81 mg DAILY PO Last administered on 09/10/17 08:24; Admin Dose 81 MG; Start 09/08/17 at 09:00 Clopidogrel Bisulfate (plaVIX) 75 mg QHS PO Last administered on 09/09/17 20: 39; Admin Dose 75 MG; Start 09/07/17 at 21:00 Losartan Potassium (Cozaar) 25 mg DAILY PO ; Start 09/08/17 at 09:00 Ranolazine (Ranexa) 500 mg Q12 PO Last administered on 09/10/17 08:24; Admin Dose 500 MG; Start 09/07/17 at 21:00 Zolpidem Tartrate (Ambien) 7.5 mg QHS PRN PO INSOMNIA Last administered on 21:55; Admin Dose 7.5 MG; Start 09/07/17 at 15:30 Ondansetron HCl (Zofran Tab) 4 mg Q6H PRN PO NAUSEA AND/OR VOMITING; Start at 15:30 Ondansetron HCl (Zofran Inj) 4 mg Q6H PRN IV NAUSEA AND/OR VOMITING; Start at 15:30 Acetaminophen (Tylenol Tab) 650 mg Q6H PRN PO PAIN LEVEL 1-3 OR FEVER; Start 09/07/17 at 15:30 Acetaminophen/ Hydrocodone Bitart ([place] (5/325)) 1 tab Q6H PRN PO MODERATE PAIN LEVEL 4-6 Last administered on 09/10/17 13:35; Admin Dose 1 TAB; Start 09/07/17 at 15:30 Docusate Sodium (Colace) 100 mg Q12H PRN PO CONSTIPATION; Start 09/07/17 at 15 :30 Bisacodyl (Dulcolax) 5 mg DAILY PRN PO CONSTIPATION; Start 09/07/17 at 15:30 Bisacodyl (Dulcolax Supp) 10 mg DAILY PRN [place] CONSTIPATION; Start 09/07/17 at 15:30 Ropinirole HCl (Requip) 1 mg Q6 PRN PO MUSCLE SPASMS Last administered on 09/10 08:26; Admin Dose 1 MG; Start 09/07/17 at 18:00 Heparin Sodium (Porcine) (Heparin (5000 Units/0.5 ml)) 5,000 unit BID SC ; Start 09/09/17 at 09:00 Mupirocin (Bactroban) 1 applic BID TOP Last administered on 09/10/17 08:27; Admin Dose 1 APPLIC; Start 09/09/17 at 21:00 MARY LOU OVALLE MD Sep 10, 2017 14:13
[2017-09-10 15:29] LABS: BASOPHILS % 0.7 % (0.0-2.0); EOSINOPHILS # 0.2 10^3/ul (0.0-0.5); EOSINOPHILS % 3.5 % (0.0-7.0); HEMATOCRIT 36.5 % (42.0-52.0); HEMOGLOBIN 10.8 g/dl (14.0-18.0); LYMPHOCYTES # 1.3 10^3/ul (0.8-2.9); LYMPHOCYTES % 24.3 % (15.0-51.0); MEAN CORPUSCULAR HEMOGLOBIN 29.3 pg (29.0-33.0); MEAN CORPUSCULAR HGB CONC 29.6 g/dl (32.0-37.0); MEAN CORPUSCULAR VOLUME 99.2 fl (82.0-101.0); MEAN PLATELET VOLUME 9.8 fl (7.4-10.4); MONOCYTE # 0.3 10^3/ul (0.3-0.9); MONOCYTES % 5.7 % (0.0-11.0); NEUTROPHIL # 3.5 10^3/ul (1.6-7.5); NEUTROPHILS % 65.6 % (39.0-77.0); PLATELET COUNT 198 10^3/UL (140-415); RED BLOOD COUNT 3.68 10^6/ul (4.70-6.10); RED CELL DISTRIBUTION WIDTH 17.2 % (11.5-14.5); WHITE BLOOD COUNT 5.4 10^3/ul (4.8-10.8)
[2017-09-10 15:56] LABS: CALCIUM 9.2 mg/dl (8.4-10.2); CREATININE 4.83 mg/dl (0.61-1.24); PHOSPHORUS 4.2 mg/dl (2.5-4.9); POTASSIUM 4.3 mmol/L (3.5-5.1)
[2017-09-10] MEDS: CLOPIDOGREL 75 MG TAB PO SCH (21:19)
[2017-09-10] MEDS: ZOLPIDEM 5 MG TAB PO PRN (21:21)
[2017-09-11] VITALS (19 sets, daily range): BP systolic 118–167; BP diastolic 55–85; PULSE 93–112; RESP 18–20
[2017-09-11] MEDS: ALBUTEROL/IPRATROPIUM (NEB) 3 ML AMP HHN PRN ×2 (02:05→08:58)
[2017-09-11 06:35] LABS: BASOPHIL # 0.1 10^3/ul (0.0-0.1); BASOPHILS % 0.9 % (0.0-2.0); EOSINOPHILS # 0.1 10^3/ul (0.0-0.5); EOSINOPHILS % 2.7 % (0.0-7.0); HEMATOCRIT 35.6 % (42.0-52.0); HEMOGLOBIN 10.6 g/dl (14.0-18.0); LYMPHOCYTES # 1.4 10^3/ul (0.8-2.9); LYMPHOCYTES % 27.3 % (15.0-51.0); MEAN CORPUSCULAR HGB CONC 29.8 g/dl (32.0-37.0); MEAN CORPUSCULAR VOLUME 97.5 fl (82.0-101.0); MEAN PLATELET VOLUME 9.6 fl (7.4-10.4); MONOCYTE # 0.3 10^3/ul (0.3-0.9); MONOCYTES % 4.9 % (0.0-11.0); NEUTROPHIL # 3.4 10^3/ul (1.6-7.5); PLATELET COUNT 187 10^3/UL (140-415); RED BLOOD COUNT 3.65 10^6/ul (4.70-6.10); RED CELL DISTRIBUTION WIDTH 17.1 % (11.5-14.5); WHITE BLOOD COUNT 5.3 10^3/ul (4.8-10.8)
[2017-09-11 06:53] LABS: ALBUMIN 2.8 g/dl (3.3-4.9); ALBUMIN/GLOBULIN RATIO 0.8; CALCIUM 9.2 mg/dl (8.4-10.2); CREATININE 4.5 mg/dl (0.61-1.24); POTASSIUM 3.5 mmol/L (3.5-5.1); TOTAL PROTEIN 6.3 g/dl (6.1-8.1)
[2017-09-11] MEDS: ALBUMIN HUMAN 25% 100 ML IV PRN (07:36)
[2017-09-11] MEDS: HEPARIN 5,000 UNIT/0.5 ML VIAL SC SCH ×2 (09:00→21:00)
[2017-09-11] MEDS: LOSARTAN 25 MG TAB PO SCH (09:00)
[2017-09-11] MEDS: PANTOPRAZOLE (EC) 40 MG TAB PO SCH (09:50)
[2017-09-11] MEDS: ROPINIROLE 0.25 MG TAB PO PRN ×2 (09:50→22:30)
[2017-09-11] MEDS: ASPIRIN 81 MG TAB PO SCH (09:50)
[2017-09-11] MEDS: SEVELAMER 800 MG TAB PO SCH ×3 (09:51→18:01)
[2017-09-11] MEDS: RANOLAZINE (SR) 500 MG TAB PO SCH ×2 (09:51→22:29)
[2017-09-11] MEDS: ALLOPURINOL 100 MG TAB PO SCH (09:51)
[2017-09-11] MEDS: MUPIROCIN 2% 22 GM OINT TOP SCH ×2 (09:52→21:00)
--- NOTE | 2017-09-11 11:09 | CONS ---
Date/Time of Note Date/Time of Note DATE: 09/11/17 TIME: 11:07 Consult Date/Type/Reason Admit Date/Time Sep 07, 2017 at 14:16 Initial Consult Date 09/08/17 Type of Consultation: Pulmonary Subjective Increasing shortness of breath. On nonrebreather. Awake alert oriented. Objective Vital Signs Date Time Temp Pulse Resp B/P Pulse Ox O2 Delivery O2 Flow Rate FiO2 09/11/17 08:58 103 22 100 Non Rebreather Mask 15.0 09/11/17 08:26 98.1 120/56 Intake and Output 09/10/17 09/10/17 09/11/17 14:59 22:59 06:59 Intake Total 900 ml 650 ml Balance 900 ml 650 ml Exam GENERAL: Elderly gentleman anxious on nonrebreather. No accessory muscle use. VITAL SIGNS: per chart NECK: Supple. No JVD or lymphadenopathy. CARDIAC EXAM: S1, S2. No added sounds or murmurs. CHEST: Diminished air entry right lung ABDOMEN: Soft, nontender. No guarding or rebound. EXTREMITIES: No cyanosis, clubbing or edema. NEUROLOGIC: Generalized weakness. No focal deficits. Results/Medications Result Diagram: 09/11/1762009/11/1721 Results 24 hrs Laboratory Tests Test 09/10/17 14:19 09/11/17 06:21 White Blood Count 5.4 5.3 Red Blood Count 3.68 L 3.65 L Hemoglobin 10.8 L 10.6 L Hematocrit 36.5 L 35.6 L Mean Corpuscular Volume 99.2 97.5 Mean Corpuscular Hemoglobin 29.3 29.0 Mean Corpuscular Hemoglobin Concent 29.6 L 29.8 L Red Cell Distribution Width 17.2 H 17.1 H Platelet Count 198 187 Mean Platelet Volume 9.8 9.6 Neutrophils % 65.6 64.0 Lymphocytes % 24.3 27.3 Monocytes % 5.7 4.9 Eosinophils % 3.5 2.7 Basophils % 0.7 0.9 Nucleated Red Blood Cells % 0.0 0.0 Neutrophils # 3.5 3.4 Lymphocytes # 1.3 1.4 Monocytes # 0.3 0.3 Eosinophils # 0.2 0.1 Basophils # 0.0 0.1 Nucleated Red Blood Cells # 0.0 0.0 Sodium Level 143 143 Potassium Level 4.3 3.5 Chloride Level 99 103 Carbon Dioxide Level 29 29 Anion Gap 19 H 15 Blood Urea Nitrogen 37 H 40 H Creatinine 4.83 H 4.50 H Glucose Level 96 121 Calcium Level 9.2 9.2 Phosphorus Level 4.2 Total Bilirubin 0.0 L Direct Bilirubin 0.00 Indirect Bilirubin 0.0 Aspartate Amino Transf (AST/SGOT) 28 Alanine Aminotransferase (ALT/SGPT) 36 Alkaline Phosphatase 252 H Total Protein 6.3 Albumin 2.8 L Globulin 3.50 H Albumin/Globulin Ratio 0.80 Medications Current Medications Allopurinol (Zyloprim) 100 mg DAILY PO Last administered on 09/11/17 09:51; Admin Dose 100 MG; Start 09/08/17 at 09:00 Alprazolam (Xanax) 0.25 mg QHS PRN PO ANXIETY; Start 09/07/17 at 15:30 Aspirin (Aspirin) 81 mg DAILY PO Last administered on 09/11/17 09:50; Admin Dose 81 MG; Start 09/08/17 at 09:00 Clopidogrel Bisulfate (plaVIX) 75 mg QHS PO Last administered on 09/10/17 21: 19; Admin Dose 75 MG; Start 09/07/17 at 21:00 Losartan Potassium (Cozaar) 25 mg DAILY PO ; Start 09/08/17 at 09:00 Ranolazine (Ranexa) 500 mg Q12 PO Last administered on 09/11/17 09:51; Admin Dose 500 MG; Start 09/07/17 at 21:00 Zolpidem Tartrate (Ambien) 7.5 mg QHS PRN PO INSOMNIA Last administered on 21:21; Admin Dose 7.5 MG; Start 09/07/17 at 15:30 Ondansetron HCl (Zofran Tab) 4 mg Q6H PRN PO NAUSEA AND/OR VOMITING; Start at 15:30 Ondansetron HCl (Zofran Inj) 4 mg Q6H PRN IV NAUSEA AND/OR VOMITING; Start at 15:30 Acetaminophen (Tylenol Tab) 650 mg Q6H PRN PO PAIN LEVEL 1-3 OR FEVER; Start 09/07/17 at 15:30 Acetaminophen/ Hydrocodone Bitart ([place] (5/325)) 1 tab Q6H PRN PO MODERATE PAIN LEVEL 4-6 Last administered on 09/10/17 13:35; Admin Dose 1 TAB; Start 09/07/17 at 15:30 Docusate Sodium (Colace) 100 mg Q12H PRN PO CONSTIPATION; Start 09/07/17 at 15 :30 Bisacodyl (Dulcolax) 5 mg DAILY PRN PO CONSTIPATION; Start 09/07/17 at 15:30 Bisacodyl (Dulcolax Supp) 10 mg DAILY PRN [place] CONSTIPATION; Start 09/07/17 at 15:30 Ropinirole HCl (Requip) 1 mg Q6 PRN PO MUSCLE SPASMS Last administered on 09/11 09:50; Admin Dose 1 MG; Start 09/07/17 at 18:00 Heparin Sodium (Porcine) (Heparin (5000 Units/0.5 ml)) 5,000 unit BID SC Last administered on 09/10/17 21:22; Admin Dose 5,000 UNIT; Start 09/09/17 at 09: 00 Mupirocin (Bactroban) 1 applic BID TOP Last administered on 09/11/17 09:52; Admin Dose 1 APPLIC; Start 09/09/17 at 21:00 Assessment/Plan Chief Complaint/Hosp Course Assessment 1. End-stage renal failure on hemodialysis 2. Recurrent pleural effusion. Requiring frequent thoracentesis. 3. History of hypertension 4. Hypoxemic respiratory failure secondary to above Plan 1. Continue hemodialysis with volume removal. 2. Patient agreeable to Pleurx catheter. Case discussed with radiology this morning. Need to schedule procedure in OR with anesthesia. Uncertain whether this will happen today. Discussed plan of care with patient. States he does not want thoracentesis and only wants Pleurx catheter placed. I explained to him that this may not happen today. Problems: MUKUND URBANO MD, [facility] Sep 11, 2017 11:09
--- NOTE | 2017-09-11 11:39 | RADRPT ---
PROCEDURE: Chest x-ray CLINICAL INDICATION: Shortness of breath TECHNIQUE: Chest single view COMPARISON: 09/10/2017 FINDINGS: As before there is right chest AICD. Stable moderate cardiomegaly and an sclerotic aortic calcificat ion is seen. Ongoing moderate to severe CHF with enlarging left pleural effusion. Associated left lo wer lung consolidation and volume loss is seen. IMPRESSION: 1. Cardiomegaly with ongoing moderate to severe CHF and interval increase of left pleural effusion. 2. Associated left lower lung collapse and volume loss. 3. Atherosclerotic aortic calcification. 4. AICD. 5. Stent identified in the right arm RPTAT: HH .Humza Tran MD, MD Date Time Electronically viewed and signed by .Humza Tran MD, on 09/11/2017 11:39 .W/
--- NOTE | 2017-09-11 12:02 | CONS ---
Date/Time of Note Date/Time of Note DATE: 09/11/17 TIME: 12:00 Assessment/Plan Assessment/Plan Additional Assessment/Plan 1. End-stage renal failure on hemodialysis: s/p HD this am, next on Thursday or Thursday 2. Recurrent pleural effusion. Requiring frequent thoracentesis.now agreable for pleurex and arrangements in being made by pulm 3. History of hypertension: stable 4. 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 Exam/Review of Systems Vital Signs Vitals Vital Signs Date Time Temp Pulse Resp B/P Pulse Ox O2 Delivery O2 Flow Rate FiO2 09/11/17 08:58 103 22 100 Non Rebreather Mask 15.0 09/11/17 08:26 98.1 120/56 Intake and Output 09/10/17 09/10/17 09/11/17 14:59 22:59 06:59 Intake Total 900 ml 650 ml Balance 900 ml 650 ml Exam Head: normocephalic Neck: No jvd Respiratory: diminished breath sounds (both bases) Cardiovascular: regular rate and rhythm Gastrointestinal: soft Extremities: edema Results Result Diagram: 09/11/1762009/11/17 0621 Results 24 hrs Laboratory Tests Test 09/10/17 14:19 09/11/17 06:21 White Blood Count 5.4 5.3 Red Blood Count 3.68 L 3.65 L Hemoglobin 10.8 L 10.6 L Hematocrit 36.5 L 35.6 L Mean Corpuscular Volume 99.2 97.5 Mean Corpuscular Hemoglobin 29.3 29.0 Mean Corpuscular Hemoglobin Concent 29.6 L 29.8 L Red Cell Distribution Width 17.2 H 17.1 H Platelet Count 198 187 Mean Platelet Volume 9.8 9.6 Neutrophils % 65.6 64.0 Lymphocytes % 24.3 27.3 Monocytes % 5.7 4.9 Eosinophils % 3.5 2.7 Basophils % 0.7 0.9 Nucleated Red Blood Cells % 0.0 0.0 Neutrophils # 3.5 3.4 Lymphocytes # 1.3 1.4 Monocytes # 0.3 0.3 Eosinophils # 0.2 0.1 Basophils # 0.0 0.1 Nucleated Red Blood Cells # 0.0 0.0 Sodium Level 143 143 Potassium Level 4.3 3.5 Chloride Level 99 103 Carbon Dioxide Level 29 29 Anion Gap 19 H 15 Blood Urea Nitrogen 37 H 40 H Creatinine 4.83 H 4.50 H Glucose Level 96 121 Calcium Level 9.2 9.2 Phosphorus Level 4.2 Total Bilirubin 0.0 L Direct Bilirubin 0.00 Indirect Bilirubin 0.0 Aspartate Amino Transf (AST/SGOT) 28 Alanine Aminotransferase (ALT/SGPT) 36 Alkaline Phosphatase 252 H Total Protein 6.3 Albumin 2.8 L Globulin 3.50 H Albumin/Globulin Ratio 0.80 Medications Medications Current Medications Allopurinol (Zyloprim) 100 mg DAILY PO Last administered on 09/11/17 09:51; Admin Dose 100 MG; Start 09/08/17 at 09:00 Alprazolam (Xanax) 0.25 mg QHS PRN PO ANXIETY; Start 09/07/17 at 15:30 Aspirin (Aspirin) 81 mg DAILY PO Last administered on 09/11/17 09:50; Admin Dose 81 MG; Start 09/08/17 at 09:00 Clopidogrel Bisulfate (plaVIX) 75 mg QHS PO Last administered on 09/10/17 21: 19; Admin Dose 75 MG; Start 09/07/17 at 21:00 Losartan Potassium (Cozaar) 25 mg DAILY PO ; Start 09/08/17 at 09:00 Ranolazine (Ranexa) 500 mg Q12 PO Last administered on 09/11/17 09:51; Admin Dose 500 MG; Start 09/07/17 at 21:00 Zolpidem Tartrate (Ambien) 7.5 mg QHS PRN PO INSOMNIA Last administered on 21:21; Admin Dose 7.5 MG; Start 09/07/17 at 15:30 Ondansetron HCl (Zofran Tab) 4 mg Q6H PRN PO NAUSEA AND/OR VOMITING; Start at 15:30 Ondansetron HCl (Zofran Inj) 4 mg Q6H PRN IV NAUSEA AND/OR VOMITING; Start at 15:30 Acetaminophen (Tylenol Tab) 650 mg Q6H PRN PO PAIN LEVEL 1-3 OR FEVER; Start 09/07/17 at 15:30 Acetaminophen/ Hydrocodone Bitart ([place] (5/325)) 1 tab Q6H PRN PO MODERATE PAIN LEVEL 4-6 Last administered on 09/10/17 13:35; Admin Dose 1 TAB; Start 09/07/17 at 15:30 Docusate Sodium (Colace) 100 mg Q12H PRN PO CONSTIPATION; Start 09/07/17 at 15 :30 Bisacodyl (Dulcolax) 5 mg DAILY PRN PO CONSTIPATION; Start 09/07/17 at 15:30 Bisacodyl (Dulcolax Supp) 10 mg DAILY PRN [place] CONSTIPATION; Start 09/07/17 at 15:30 Ropinirole HCl (Requip) 1 mg Q6 PRN PO MUSCLE SPASMS Last administered on 09/11 09:50; Admin Dose 1 MG; Start 09/07/17 at 18:00 Heparin Sodium (Porcine) (Heparin (5000 Units/0.5 ml)) 5,000 unit BID SC Last administered on 09/10/17 21:22; Admin Dose 5,000 UNIT; Start 09/09/17 at 09: 00 Mupirocin (Bactroban) 1 applic BID TOP Last administered on 09/11/17 09:52; Admin Dose 1 APPLIC; Start 09/09/17 at 21:00 VINI REILLY MD Sep 11, 2017 12:02
[2017-09-11] MEDS: ALPRAZOLAM 0.25 MG TAB PO PRN ×2 (14:52→22:46)
--- NOTE | 2017-09-11 16:06 | RADRPT ---
Vent Rate: 97 bpm RR Interval: 0 msec [place] Interval: 162 msec QRS Duration: 88 msec QT Interval: 348 msec QTC Interval: 441 msec P-R-T [place]: 64 - -30 - 78 degrees Normal sinus rhythm Left axis deviation ST elevation, consider early repolarization, pericarditis, or injury Nonspecific ST and T wave abnormality Abnormal ECG Electronically Signed By: Luis Frazier [id number]
[2017-09-11] MEDS: ZOLPIDEM 5 MG TAB PO PRN (22:29)
[2017-09-11] MEDS: CLOPIDOGREL 75 MG TAB PO SCH (22:29)
[2017-09-12] VITALS (12 sets, daily range): BP systolic 130–156; BP diastolic 65–82; PULSE 75–104; RESP 18–21
[2017-09-12 06:34] LABS: BASOPHIL # 0.1 10^3/ul (0.0-0.1); EOSINOPHILS # 0.2 10^3/ul (0.0-0.5); EOSINOPHILS % 3.6 % (0.0-7.0); HEMATOCRIT 35.5 % (42.0-52.0); HEMOGLOBIN 10.4 g/dl (14.0-18.0); LYMPHOCYTES # 1.4 10^3/ul (0.8-2.9); LYMPHOCYTES % 27.1 % (15.0-51.0); MEAN CORPUSCULAR HEMOGLOBIN 29.1 pg (29.0-33.0); MEAN CORPUSCULAR HGB CONC 29.3 g/dl (32.0-37.0); MEAN CORPUSCULAR VOLUME 99.2 fl (82.0-101.0); MEAN PLATELET VOLUME 9.8 fl (7.4-10.4); MONOCYTE # 0.3 10^3/ul (0.3-0.9); MONOCYTES % 6.6 % (0.0-11.0); NEUTROPHIL # 3.1 10^3/ul (1.6-7.5); NEUTROPHILS % 61.5 % (39.0-77.0); PLATELET COUNT 189 10^3/UL (140-415); RED BLOOD COUNT 3.58 10^6/ul (4.70-6.10); RED CELL DISTRIBUTION WIDTH 17.1 % (11.5-14.5)
[2017-09-12 07:10] LABS: CALCIUM 9.4 mg/dl (8.4-10.2); CREATININE 4.26 mg/dl (0.61-1.24); MAGNESIUM 1.9 mg/dl (1.7-2.5); PHOSPHORUS 4.3 mg/dl (2.5-4.9); POTASSIUM 3.7 mmol/L (3.5-5.1)
[2017-09-12] MEDS: PANTOPRAZOLE (EC) 40 MG TAB PO SCH (07:47)
[2017-09-12] MEDS: SEVELAMER 800 MG TAB PO SCH ×3 (07:47→17:23)
[2017-09-12] MEDS: ASPIRIN 81 MG TAB PO SCH (08:42)
[2017-09-12] MEDS: RANOLAZINE (SR) 500 MG TAB PO SCH ×2 (08:42→21:36)
[2017-09-12] MEDS: ALLOPURINOL 100 MG TAB PO SCH (08:42)
[2017-09-12] MEDS: ROPINIROLE 0.25 MG TAB PO PRN ×2 (08:42→21:48)
[2017-09-12] MEDS: LOSARTAN 25 MG TAB PO SCH (08:43)
[2017-09-12] MEDS: MUPIROCIN 2% 22 GM OINT TOP SCH ×2 (08:49→21:50)
[2017-09-12] MEDS: HEPARIN 5,000 UNIT/0.5 ML VIAL SC SCH ×2 (08:51→21:00)
--- NOTE | 2017-09-12 09:38 | RADRPT ---
PROCEDURE: XR Chest. CLINICAL INDICATION: Shortness of breath. TECHNIQUE: Single frontal view. COMPARISON: 09/11/2017. FINDINGS: There is complete opacification of the left hemithorax, worse than seen previously consistent with l arge pleural effusion. There is diffuse interstitial disease throughout the right lung consistent wi th pulmonary edema, unchanged. The heart is enlarged. There is calcification in the aorta consistent with atherosclerosis. There is a right-sided dual raj d permanent pacemaker/internal cardiac defibrillator. There is no pneumothorax. IMPRESSION: 1. Complete opacification of the left hemithorax. 2. Pulmonary edema. 3. Cardiomegaly. 4. Atherosclerosis. 5. Permanent pacemaker/AICD. RPTAT: QQ .Lazaro Zavaleta MD, MD Date Time Electronically viewed and signed by .Lazaro Zavaleta MD, MD on 09/12/2017 09:38 .R/
[2017-09-12] MEDS: ALPRAZOLAM 0.25 MG TAB PO PRN (10:16)
--- NOTE | 2017-09-12 11:31 | CONS ---
Date/Time of Note Date/Time of Note DATE: 09/12/17 TIME: Consult Date/Type/Reason Admit Date/Time Sep 07, 2017 at 14:16 Initial Consult Date 09/08/17 Type of Consultation: Pulmonary Subjective Anxious. Continues nonrebreather although adequate oxygen saturations off supplemental oxygen. Objective Vital Signs Date Time Temp Pulse Resp B/P Pulse Ox O2 Delivery O2 Flow Rate FiO2 09/12/17 08:13 98.0 93 18 141/78 91 09/12/17 08:00 Non Rebreather 15.0 Exam GENERAL: Elderly gentleman anxious on nonrebreather. No accessory muscle use. VITAL SIGNS: per chart NECK: Supple. No JVD or lymphadenopathy. CARDIAC EXAM: S1, S2. No added sounds or murmurs. CHEST: Diminished air entry right lung ABDOMEN: Soft, nontender. No guarding or rebound. EXTREMITIES: No cyanosis, clubbing or edema. NEUROLOGIC: Generalized weakness. No focal deficits. Results/Medications Result Diagram: 09/12/17 0558 09/12/17 0558 Results 24 hrs Laboratory Tests Test 09/12/17 05:58 White Blood Count 5.0 Red Blood Count 3.58 L Hemoglobin 10.4 L Hematocrit 35.5 L Mean Corpuscular Volume 99.2 Mean Corpuscular Hemoglobin 29.1 Mean Corpuscular Hemoglobin Concent 29.3 L Red Cell Distribution Width 17.1 H Platelet Count 189 Mean Platelet Volume 9.8 Neutrophils % 61.5 Lymphocytes % 27.1 Monocytes % 6.6 Eosinophils % 3.6 Basophils % 1.0 Nucleated Red Blood Cells % 0.0 Neutrophils # 3.1 Lymphocytes # 1.4 Monocytes # 0.3 Eosinophils # 0.2 Basophils # 0.1 Nucleated Red Blood Cells # 0.0 Sodium Level 144 Potassium Level 3.7 Chloride Level 101 Carbon Dioxide Level 32 H Anion Gap 15 Blood Urea Nitrogen 31 H Creatinine 4.26 H Glucose Level 88 Calcium Level 9.4 Phosphorus Level 4.3 Magnesium Level 1.9 Medications Current Medications Allopurinol (Zyloprim) 100 mg DAILY PO Last administered on 09/12/17 08:42; Admin Dose 100 MG; Start 09/08/17 at 09:00 Aspirin (Aspirin) 81 mg DAILY PO Last administered on 09/12/17 08:42; Admin Dose 81 MG; Start 09/08/17 at 09:00 Clopidogrel Bisulfate (plaVIX) 75 mg QHS PO Last administered on 09/11/17 22: 29; Admin Dose 75 MG; Start 09/07/17 at 21:00 Losartan Potassium (Cozaar) 25 mg DAILY PO Last administered on 09/12/17 08: 43; Admin Dose 25 MG; Start 09/08/17 at 09:00 Ranolazine (Ranexa) 500 mg Q12 PO Last administered on 09/12/17 08:42; Admin Dose 500 MG; Start 09/07/17 at 21:00 Zolpidem Tartrate (Ambien) 7.5 mg QHS PRN PO INSOMNIA Last administered on 22:29; Admin Dose 7.5 MG; Start 09/07/17 at 15:30 Ondansetron HCl (Zofran Tab) 4 mg Q6H PRN PO NAUSEA AND/OR VOMITING; Start at 15:30 Ondansetron HCl (Zofran Inj) 4 mg Q6H PRN IV NAUSEA AND/OR VOMITING; Start at 15:30 Acetaminophen (Tylenol Tab) 650 mg Q6H PRN PO PAIN LEVEL 1-3 OR FEVER; Start 09/07/17 at 15:30 Acetaminophen/ Hydrocodone Bitart ([place] (5/325)) 1 tab Q6H PRN PO MODERATE PAIN LEVEL 4-6 Last administered on 09/10/17 13:35; Admin Dose 1 TAB; Start 09/07/17 at 15:30 Docusate Sodium (Colace) 100 mg Q12H PRN PO CONSTIPATION; Start 09/07/17 at 15 :30 Bisacodyl (Dulcolax) 5 mg DAILY PRN PO CONSTIPATION; Start 09/07/17 at 15:30 Bisacodyl (Dulcolax Supp) 10 mg DAILY PRN [place] CONSTIPATION; Start 09/07/17 at 15:30 Ropinirole HCl (Requip) 1 mg Q6 PRN PO MUSCLE SPASMS Last administered on 09/12 08:42; Admin Dose 1 MG; Start 09/07/17 at 18:00 Heparin Sodium (Porcine) (Heparin (5000 Units/0.5 ml)) 5,000 unit BID SC Last administered on 09/10/17 21:22; Admin Dose 5,000 UNIT; Start 09/09/17 at 09: 00 Mupirocin (Bactroban) 1 applic BID TOP Last administered on 09/12/17 08:49; Admin Dose 1 APPLIC; Start 09/09/17 at 21:00 Alprazolam (Xanax) 0.25 mg Q6H PRN PO ANXIETY Last administered on 09/12/17 10:16; Admin Dose 0.25 MG; Start 09/12/17 at 10:15 Assessment/Plan Chief Complaint/Hosp Course Assessment 1. End-stage renal failure on hemodialysis 2. Recurrent pleural effusion. Requiring frequent thoracentesis. 3. History of hypertension 4. Hypoxemic respiratory failure secondary to above Plan 1. Continue hemodialysis with volume removal. 2. Patient agreeable to Pleurx catheter. pending Pleurx catheter possibly on Thursday. Problems: MUKUND URBANO MD, [facility] Sep 12, 2017 11:31
[2017-09-12] MEDS ORDERED: ALPRAZOLAM 0.25 MG TAB PO PRN (12:00)
--- NOTE | 2017-09-12 13:39 | CONS ---
Date/Time of Note Date/Time of Note DATE: 09/12/17 TIME: 13:37 Assessment/Plan Assessment/Plan Chief Complaint/Hosp Course 1. End-stage renal failure on hemodialysis: s/p HD yesterday. Plan next for tomorrow am 2. Recurrent pleural effusion. Very large left effusion. Awaiting PleurX tube insertion. 3. History of hypertension: stable 4. 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: epogen prn to keep hb> 10 Problems: Consultation Date/Type/Reason Admit Date/Time Sep 07, 2017 at 14:16 Initial Consult Date 09/08/17 Type of Consultation: Nephrology 24 HR Interval Summary Free Text/Dictation Continues to complain of SOB Exam/Review of Systems Vital Signs Vitals Vital Signs Date Time Temp Pulse Resp B/P Pulse Ox O2 Delivery O2 Flow Rate FiO2 09/12/17 12:00 75 09/12/17 11:58 98.0 18 156/82 95 09/12/17 08:00 Non Rebreather 15.0 Exam Constitutional: alert Neck: No jvd Respiratory: diminished breath sounds Cardiovascular: regular rate and rhythm Gastrointestinal: soft Extremities: edema (LUE edema. No lower ext edema) Results Result Diagram: 09/12/17 0558 09/12/17 0558 Results 24 hrs Laboratory Tests Test 09/12/17 05:58 White Blood Count 5.0 Red Blood Count 3.58 L Hemoglobin 10.4 L Hematocrit 35.5 L Mean Corpuscular Volume 99.2 Mean Corpuscular Hemoglobin 29.1 Mean Corpuscular Hemoglobin Concent 29.3 L Red Cell Distribution Width 17.1 H Platelet Count 189 Mean Platelet Volume 9.8 Neutrophils % 61.5 Lymphocytes % 27.1 Monocytes % 6.6 Eosinophils % 3.6 Basophils % 1.0 Nucleated Red Blood Cells % 0.0 Neutrophils # 3.1 Lymphocytes # 1.4 Monocytes # 0.3 Eosinophils # 0.2 Basophils # 0.1 Nucleated Red Blood Cells # 0.0 Sodium Level 144 Potassium Level 3.7 Chloride Level 101 Carbon Dioxide Level 32 H Anion Gap 15 Blood Urea Nitrogen 31 H Creatinine 4.26 H Glucose Level 88 Calcium Level 9.4 Phosphorus Level 4.3 Magnesium Level 1.9 Medications Medications Current Medications Allopurinol (Zyloprim) 100 mg DAILY PO Last administered on 09/12/17 08:42; Admin Dose 100 MG; Start 09/08/17 at 09:00 Aspirin (Aspirin) 81 mg DAILY PO Last administered on 09/12/17 08:42; Admin Dose 81 MG; Start 09/08/17 at 09:00 Clopidogrel Bisulfate (plaVIX) 75 mg QHS PO Last administered on 09/11/17 22: 29; Admin Dose 75 MG; Start 09/07/17 at 21:00 Losartan Potassium (Cozaar) 25 mg DAILY PO Last administered on 09/12/17 08: 43; Admin Dose 25 MG; Start 09/08/17 at 09:00 Ranolazine (Ranexa) 500 mg Q12 PO Last administered on 09/12/17 08:42; Admin Dose 500 MG; Start 09/07/17 at 21:00 Zolpidem Tartrate (Ambien) 7.5 mg QHS PRN PO INSOMNIA Last administered on 22:29; Admin Dose 7.5 MG; Start 09/07/17 at 15:30 Ondansetron HCl (Zofran Tab) 4 mg Q6H PRN PO NAUSEA AND/OR VOMITING; Start at 15:30 Ondansetron HCl (Zofran Inj) 4 mg Q6H PRN IV NAUSEA AND/OR VOMITING; Start at 15:30 Acetaminophen (Tylenol Tab) 650 mg Q6H PRN PO PAIN LEVEL 1-3 OR FEVER; Start 09/07/17 at 15:30 Acetaminophen/ Hydrocodone Bitart ([place] (5/325)) 1 tab Q6H PRN PO MODERATE PAIN LEVEL 4-6 Last administered on 09/10/17 13:35; Admin Dose 1 TAB; Start 09/07/17 at 15:30 Docusate Sodium (Colace) 100 mg Q12H PRN PO CONSTIPATION; Start 09/07/17 at 15 :30 Bisacodyl (Dulcolax) 5 mg DAILY PRN PO CONSTIPATION; Start 09/07/17 at 15:30 Bisacodyl (Dulcolax Supp) [address] CONSTIPATION; Start 09/07/17 at 15:30 Ropinirole HCl (Requip) 1 mg Q6 PRN PO MUSCLE SPASMS Last administered on 09/12 08:42; Admin Dose 1 MG; Start 09/07/17 at 18:00 Heparin Sodium (Porcine) (Heparin (5000 Units/0.5 ml)) 5,000 unit BID SC Last administered on 09/10/17 21:22; Admin Dose 5,000 UNIT; Start 09/09/17 at 09: 00 Mupirocin (Bactroban) 1 applic BID TOP Last administered on 09/12/17 08:49; Admin Dose 1 APPLIC; Start 09/09/17 at 21:00 Alprazolam (Xanax) 0.25 mg Q6H PRN PO ANXIETY Last administered on 09/12/17 10:16; Admin Dose 0.25 MG; Start 09/12/17 at 10:15 VINI REILLY MD Sep 12, 2017 13:39
[2017-09-12] MEDS: BISACODYL (EC) 5 MG TAB PO PRN (17:23)
[2017-09-12] MEDS: DOCUSATE SODIUM 100 MG CAP PO PRN (17:23)
[2017-09-12] MEDS: CLOPIDOGREL 75 MG TAB PO SCH (21:36)
[2017-09-12] MEDS: ZOLPIDEM 5 MG TAB PO PRN (21:48)
[2017-09-12] MEDS: HYDROCODONE/APAP (5/325) TAB PO PRN (21:49)
[2017-09-13] VITALS (17 sets, daily range): BP systolic 88–141; BP diastolic 42–70; PULSE 91–98; RESP 18–21
[2017-09-13] MEDS: ALBUTEROL/IPRATROPIUM (NEB) 3 ML AMP HHN PRN (06:37)
[2017-09-13 08:11] LABS: BASOPHIL # 0.1 10^3/ul (0.0-0.1); BASOPHILS % 0.9 % (0.0-2.0); EOSINOPHILS # 0.2 10^3/ul (0.0-0.5); EOSINOPHILS % 3.7 % (0.0-7.0); HEMATOCRIT 36.1 % (42.0-52.0); HEMOGLOBIN 10.9 g/dl (14.0-18.0); LYMPHOCYTES # 1.2 10^3/ul (0.8-2.9); LYMPHOCYTES % 20.2 % (15.0-51.0); MEAN CORPUSCULAR HEMOGLOBIN 29.1 pg (29.0-33.0); MEAN CORPUSCULAR HGB CONC 30.2 g/dl (32.0-37.0); MEAN CORPUSCULAR VOLUME 96.3 fl (82.0-101.0); MEAN PLATELET VOLUME 10.4 fl (7.4-10.4); MONOCYTE # 0.3 10^3/ul (0.3-0.9); MONOCYTES % 4.8 % (0.0-11.0); NEUTROPHIL # 4.1 10^3/ul (1.6-7.5); NEUTROPHILS % 70.2 % (39.0-77.0); PLATELET COUNT 205 10^3/UL (140-415); RED BLOOD COUNT 3.75 10^6/ul (4.70-6.10); RED CELL DISTRIBUTION WIDTH 16.9 % (11.5-14.5); WHITE BLOOD COUNT 5.9 10^3/ul (4.8-10.8)
[2017-09-13 08:36] LABS: ALBUMIN/GLOBULIN RATIO 0.93; CALCIUM 9.1 mg/dl (8.4-10.2); CREATININE 5.14 mg/dl (0.61-1.24); TOTAL PROTEIN 6.2 g/dl (6.1-8.1)
[2017-09-13] MEDS: ALBUMIN HUMAN 25% 100 ML IV PRN (08:43)
[2017-09-13] MEDS: LOSARTAN 25 MG TAB PO SCH (08:45)
[2017-09-13] MEDS: RANOLAZINE (SR) 500 MG TAB PO SCH ×2 (08:47→21:00)
[2017-09-13] MEDS: PANTOPRAZOLE (EC) 40 MG TAB PO SCH (08:47)
[2017-09-13] MEDS: ALLOPURINOL 100 MG TAB PO SCH (08:47)
[2017-09-13] MEDS: ASPIRIN 81 MG TAB PO SCH (08:47)
[2017-09-13] MEDS: SEVELAMER 800 MG TAB PO SCH ×3 (08:47→17:24)
[2017-09-13] MEDS: ALPRAZOLAM 0.25 MG TAB PO PRN ×2 (08:48→22:32)
[2017-09-13] MEDS: HEPARIN 5,000 UNIT/0.5 ML VIAL SC SCH ×2 (08:52→21:00)
[2017-09-13] MEDS: MUPIROCIN 2% 22 GM OINT TOP SCH ×2 (08:54→21:31)
--- NOTE | 2017-09-13 11:46 | CONS ---
Date/Time of Note Date/Time of Note DATE: 09/13/17 TIME: 11:46 Consult Date/Type/Reason Admit Date/Time Sep 07, 2017 at 14:16 Initial Consult Date 09/08/17 Type of Consultation: Pulmonary Subjective Patient breathing improved this morning after hemodialysis. Objective Vital Signs Date Time Temp Pulse Resp B/P Pulse Ox O2 Delivery O2 Flow Rate FiO2 09/13/17 08:00 Non Rebreather 15.0 09/13/17 08:00 95 09/13/17 06:37 22 100 09/13/17 04:00 98.4 126/58 Intake and Output 09/12/17 09/12/17 09/13/17 14:59 22:59 06:59 Intake Total 400 ml 220 ml Balance 400 ml 220 ml Exam GENERAL: Elderly gentleman anxious on nonrebreather. No accessory muscle use. VITAL SIGNS: per chart NECK: Supple. No JVD or lymphadenopathy. CARDIAC EXAM: S1, S2. No added sounds or murmurs. CHEST: Diminished air entry right lung ABDOMEN: Soft, nontender. No guarding or rebound. EXTREMITIES: No cyanosis, clubbing or edema. NEUROLOGIC: Generalized weakness. No focal deficits. Results/Medications Result Diagram: 09/13/1772409/13/17 0725 Results 24 hrs Laboratory Tests Test 09/13/17 07:25 White Blood Count 5.9 Red Blood Count 3.75 L Hemoglobin 10.9 L Hematocrit 36.1 L Mean Corpuscular Volume 96.3 Mean Corpuscular Hemoglobin 29.1 Mean Corpuscular Hemoglobin Concent 30.2 L Red Cell Distribution Width 16.9 H Platelet Count 205 Mean Platelet Volume 10.4 Neutrophils % 70.2 Lymphocytes % 20.2 Monocytes % 4.8 Eosinophils % 3.7 Basophils % 0.9 Nucleated Red Blood Cells % 0.0 Neutrophils # 4.1 Lymphocytes # 1.2 Monocytes # 0.3 Eosinophils # 0.2 Basophils # 0.1 Nucleated Red Blood Cells # 0.0 Sodium Level 138 Potassium Level 4.0 Chloride Level 99 Carbon Dioxide Level 26 Anion Gap 17 H Blood Urea Nitrogen 42 #H Creatinine 5.14 H Glucose Level 95 Calcium Level 9.1 Total Bilirubin 0.0 L Direct Bilirubin 0.00 Indirect Bilirubin 0.0 Aspartate Amino Transf (AST/SGOT) 24 Alanine Aminotransferase (ALT/SGPT) 32 Alkaline Phosphatase 239 H Total Protein 6.2 Albumin 3.0 L Globulin 3.20 Albumin/Globulin Ratio 0.93 Medications Current Medications Allopurinol (Zyloprim) 100 mg DAILY PO Last administered on 09/13/17 08:47; Admin Dose 100 MG; Start 09/08/17 at 09:00 Aspirin (Aspirin) 81 mg DAILY PO Last administered on 09/13/17 08:47; Admin Dose 81 MG; Start 09/08/17 at 09:00 Clopidogrel Bisulfate (plaVIX) 75 mg QHS PO Last administered on 09/12/17 21: 36; Admin Dose 75 MG; Start 09/07/17 at 21:00 Losartan Potassium (Cozaar) 25 mg DAILY PO Last administered on 09/12/17 08: 43; Admin Dose 25 MG; Start 09/08/17 at 09:00 Ranolazine (Ranexa) 500 mg Q12 PO Last administered on 09/13/17 08:47; Admin Dose 500 MG; Start 09/07/17 at 21:00 Zolpidem Tartrate (Ambien) 7.5 mg QHS PRN PO INSOMNIA Last administered on 21:48; Admin Dose 7.5 MG; Start 09/07/17 at 15:30 Ondansetron HCl (Zofran Tab) 4 mg Q6H PRN PO NAUSEA AND/OR VOMITING; Start at 15:30 Ondansetron HCl (Zofran Inj) 4 mg Q6H PRN IV NAUSEA AND/OR VOMITING; Start at 15:30 Acetaminophen (Tylenol Tab) 650 mg Q6H PRN PO PAIN LEVEL 1-3 OR FEVER; Start 09/07/17 at 15:30 Acetaminophen/ Hydrocodone Bitart ([place] (5/325)) 1 tab Q6H PRN PO MODERATE PAIN LEVEL 4-6 Last administered on 09/12/17 21:49; Admin Dose 1 TAB; Start 09/07/17 at 15:30 Docusate Sodium (Colace) 100 mg Q12H PRN PO CONSTIPATION Last administered on 09/12/17 17:23; Admin Dose 100 MG; Start 09/07/17 at 15:30 Bisacodyl (Dulcolax) 5 mg DAILY PRN PO CONSTIPATION Last administered on 17:23; Admin Dose 5 MG; Start 09/07/17 at 15:30 Bisacodyl (Dulcolax Supp) 10 mg DAILY PRN [place] CONSTIPATION; Start 09/07/17 at 15:30 Ropinirole HCl (Requip) 1 mg Q6 PRN PO MUSCLE SPASMS Last administered on 09/12 21:48; Admin Dose 1 MG; Start 09/07/17 at 18:00 Heparin Sodium (Porcine) (Heparin (5000 Units/0.5 ml)) 5,000 unit BID SC Last administered on 09/13/17 08:52; Admin Dose 5,000 UNIT; Start 09/09/17 at 09: 00 Mupirocin (Bactroban) 1 applic BID TOP Last administered on 09/13/17 08:54; Admin Dose 1 APPLIC; Start 09/09/17 at 21:00 Alprazolam (Xanax) 0.25 mg Q6H PRN PO ANXIETY Last administered on 09/13/17 08:48; Admin Dose 0.25 MG; Start 09/12/17 at 10:15 Assessment/Plan Chief Complaint/Hosp Course Assessment 1. End-stage renal failure on hemodialysis 2. Recurrent pleural effusion. Requiring frequent thoracentesis. 3. History of hypertension 4. Hypoxemic respiratory failure secondary to above Plan 1. Continue hemodialysis with volume removal. 2. Patient agreeable to Pleurx catheter. pending Pleurx catheter possibly on Thursday. Problems: MUKUND URBANO MD, [facility] Sep 13, 2017 11:46
--- NOTE | 2017-09-13 14:30 | CONS ---
Date/Time of Note Date/Time of Note DATE: 09/13/17 TIME: 14:28 Assessment/Plan Assessment/Plan Chief Complaint/Hosp Course 1. End-stage renal failure on hemodialysis: s/p HD this am with 4L UF, next will be in 2 days 2. Recurrent pleural effusion. Very large left effusion. Awaiting PleurX tube insertion. ?? tomorrow 3. Hypertension: controlled 4. 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 Exam/Review of Systems Vital Signs Vitals Vital Signs Date Time Temp Pulse Resp B/P Pulse Ox O2 Delivery O2 Flow Rate FiO2 09/13/17 12:14 97.7 93 19 128/63 100 09/13/17 08:00 Non Rebreather 15.0 Intake and Output 09/12/17 09/12/17 09/13/17 15:00 23:00 07:00 Intake Total 400 ml 220 ml Balance 400 ml 220 ml Exam Constitutional: alert Neck: No jvd Respiratory: diminished breath sounds Cardiovascular: regular rate and rhythm Gastrointestinal: soft Extremities: edema (RUE edema) Results Result Diagram: 09/13/17 0725 09/13/17 0725 Results 24 hrs Laboratory Tests Test 09/13/17 07:25 White Blood Count 5.9 Red Blood Count 3.75 L Hemoglobin 10.9 L Hematocrit 36.1 L Mean Corpuscular Volume 96.3 Mean Corpuscular Hemoglobin 29.1 Mean Corpuscular Hemoglobin Concent 30.2 L Red Cell Distribution Width 16.9 H Platelet Count 205 Mean Platelet Volume 10.4 Neutrophils % 70.2 Lymphocytes % 20.2 Monocytes % 4.8 Eosinophils % 3.7 Basophils % 0.9 Nucleated Red Blood Cells % 0.0 Neutrophils # 4.1 Lymphocytes # 1.2 Monocytes # 0.3 Eosinophils # 0.2 Basophils # 0.1 Nucleated Red Blood Cells # 0.0 Sodium Level 138 Potassium Level 4.0 Chloride Level 99 Carbon Dioxide Level 26 Anion Gap 17 H Blood Urea Nitrogen 42 #H Creatinine 5.14 H Glucose Level 95 Calcium Level 9.1 Total Bilirubin 0.0 L Direct Bilirubin 0.00 Indirect Bilirubin 0.0 Aspartate Amino Transf (AST/SGOT) 24 Alanine Aminotransferase (ALT/SGPT) 32 Alkaline Phosphatase 239 H Total Protein 6.2 Albumin 3.0 L Globulin 3.20 Albumin/Globulin Ratio 0.93 Medications Medications Current Medications Allopurinol (Zyloprim) 100 mg DAILY PO Last administered on 09/13/17 08:47; Admin Dose 100 MG; Start 09/08/17 at 09:00 Aspirin (Aspirin) 81 mg DAILY PO Last administered on 09/13/17 08:47; Admin Dose 81 MG; Start 09/08/17 at 09:00 Clopidogrel Bisulfate (plaVIX) 75 mg QHS PO Last administered on 09/12/17 21: 36; Admin Dose 75 MG; Start 09/07/17 at 21:00 Losartan Potassium (Cozaar) 25 mg DAILY PO Last administered on 09/12/17 08: 43; Admin Dose 25 MG; Start 09/08/17 at 09:00 Ranolazine (Ranexa) 500 mg Q12 PO Last administered on 09/13/17 08:47; Admin Dose 500 MG; Start 09/07/17 at 21:00 Zolpidem Tartrate (Ambien) 7.5 mg QHS PRN PO INSOMNIA Last administered on 21:48; Admin Dose 7.5 MG; Start 09/07/17 at 15:30 Ondansetron HCl (Zofran Tab) 4 mg Q6H PRN PO NAUSEA AND/OR VOMITING; Start at 15:30 Ondansetron HCl (Zofran Inj) 4 mg Q6H PRN IV NAUSEA AND/OR VOMITING; Start at 15:30 Acetaminophen (Tylenol Tab) 650 mg Q6H PRN PO PAIN LEVEL 1-3 OR FEVER; Start 09/07/17 at 15:30 Acetaminophen/ Hydrocodone Bitart ([place] (5/325)) 1 tab Q6H PRN PO MODERATE PAIN LEVEL 4-6 Last administered on 09/12/17 21:49; Admin Dose 1 TAB; Start 09/07/17 at 15:30 Docusate Sodium (Colace) 100 mg Q12H PRN PO CONSTIPATION Last administered on 09/12/17 17:23; Admin Dose 100 MG; Start 09/07/17 at 15:30 Bisacodyl (Dulcolax) 5 mg DAILY PRN PO CONSTIPATION Last administered on 17:23; Admin Dose 5 MG; Start 09/07/17 at 15:30 Bisacodyl (Dulcolax Supp) 10 mg DAILY PRN [place] CONSTIPATION; Start 09/07/17 at 15:30 Ropinirole HCl (Requip) 1 mg Q6 PRN PO MUSCLE SPASMS Last administered on 09/12 21:48; Admin Dose 1 MG; Start 09/07/17 at 18:00 Heparin Sodium (Porcine) (Heparin (5000 Units/0.5 ml)) 5,000 unit BID SC Last administered on 09/13/17 08:52; Admin Dose 5,000 UNIT; Start 09/09/17 at 09: 00 Mupirocin (Bactroban) 1 applic BID TOP Last administered on 09/13/17 08:54; Admin Dose 1 APPLIC; Start 09/09/17 at 21:00 Alprazolam (Xanax) 0.25 mg Q6H PRN PO ANXIETY Last administered on 09/13/17 08:48; Admin Dose 0.25 MG; Start 09/12/17 at 10:15 VINI REILLY MD Sep 13, 2017 14:30
[2017-09-13] MEDS: HYDROCODONE/APAP (5/325) TAB PO PRN (21:28)
[2017-09-13] MEDS: CLOPIDOGREL 75 MG TAB PO SCH (21:28)
[2017-09-13] MEDS: ROPINIROLE 0.25 MG TAB PO PRN (21:29)
[2017-09-13] MEDS: ZOLPIDEM 5 MG TAB PO PRN (21:29)
[2017-09-13] MEDS: DOCUSATE SODIUM 100 MG CAP PO PRN (22:32)
[2017-09-13] MEDS: BISACODYL (EC) 5 MG TAB PO PRN (22:32)
[2017-09-14] VITALS (12 sets, daily range): BP systolic 119–150; BP diastolic 57–70; PULSE 86–110; RESP 19–22
--- NOTE | 2017-09-14 07:25 | CONS ---
Date/Time of Note Date/Time of Note DATE: 09/14/17 TIME: 07:23 Assessment/Plan Assessment/Plan Problems: (1) HTN (hypertension) Comment: controlled on current meds (2) ESRD (end stage renal disease) on dialysis Status: Chronic Comment: for HD in am... had it yesterday w good UF (3) SOB (shortness of breath) Comment: due to ref Lt Pleural effusion (4) Pleural effusion, left Status: Acute Comment: for Pleur-X catheter drainage today, per Dr Anaya Consultation Date/Type/Reason Admit Date/Time Sep 07, 2017 at 14:16 Type of Consultation: Nephrology 24 HR Interval Summary Free Text/Dictation feels SOB despite HD w 4L off yesterday... rec Lt pleural effusion Exam/Review of Systems Vital Signs Vitals Vital Signs Date Time Temp Pulse Resp B/P Pulse Ox O2 Delivery O2 Flow Rate FiO2 09/14/17 04:32 86 09/14/17 04:00 98.9 19 136/64 100 09/14/17 01:21 15.0 09/13/17 20:00 Non Rebreather Intake and Output 09/13/17 09/13/17 09/14/17 15:00 23:00 07:00 Intake Total 500 ml 350 ml 900 ml Output Total 4000 ml Balance -3500 ml 350 ml 900 ml Exam Constitutional: alert, oriented Head: normocephalic Eyes: nl conjunctiva Neck: supple Respiratory: diminished breath sounds (Lt chest) Cardiovascular: regular rate and rhythm Gastrointestinal: nl liver, spleen, soft Extremities: edema (none) Results Result Diagram: 09/13/1725 09/13/17 0725 Results 24 hrs Laboratory Tests Test 09/13/17 07:25 White Blood Count 5.9 Red Blood Count 3.75 L Hemoglobin 10.9 L Hematocrit 36.1 L Mean Corpuscular Volume 96.3 Mean Corpuscular Hemoglobin 29.1 Mean Corpuscular Hemoglobin Concent 30.2 L Red Cell Distribution Width 16.9 H Platelet Count 205 Mean Platelet Volume 10.4 Neutrophils % 70.2 Lymphocytes % 20.2 Monocytes % 4.8 Eosinophils % 3.7 Basophils % 0.9 Nucleated Red Blood Cells % 0.0 Neutrophils # 4.1 Lymphocytes # 1.2 Monocytes # 0.3 Eosinophils # 0.2 Basophils # 0.1 Nucleated Red Blood Cells # 0.0 Sodium Level 138 Potassium Level 4.0 Chloride Level 99 Carbon Dioxide Level 26 Anion Gap 17 H Blood Urea Nitrogen 42 #H Creatinine 5.14 H Glucose Level 95 Calcium Level 9.1 Total Bilirubin 0.0 L Direct Bilirubin 0.00 Indirect Bilirubin 0.0 Aspartate Amino Transf (AST/SGOT) 24 Alanine Aminotransferase (ALT/SGPT) 32 Alkaline Phosphatase 239 H Total Protein 6.2 Albumin 3.0 L Globulin 3.20 Albumin/Globulin Ratio 0.93 Medications Medications Current Medications Allopurinol (Zyloprim) 100 mg DAILY PO Last administered on 09/13/17 08:47; Admin Dose 100 MG; Start 09/08/17 at 09:00 Aspirin (Aspirin) 81 mg DAILY PO Last administered on 09/13/17 08:47; Admin Dose 81 MG; Start 09/08/17 at 09:00 Clopidogrel Bisulfate (plaVIX) 75 mg QHS PO Last administered on 09/13/17 21: 28; Admin Dose 75 MG; Start 09/07/17 at 21:00 Losartan Potassium (Cozaar) 25 mg DAILY PO Last administered on 09/12/17 08: 43; Admin Dose 25 MG; Start 09/08/17 at 09:00 Ranolazine (Ranexa) 500 mg Q12 PO Last administered on 09/13/17 08:47; Admin Dose 500 MG; Start 09/07/17 at 21:00 Zolpidem Tartrate (Ambien) 7.5 mg QHS PRN PO INSOMNIA Last administered on 21:29; Admin Dose 7.5 MG; Start 09/07/17 at 15:30 Ondansetron HCl (Zofran Tab) 4 mg Q6H PRN PO NAUSEA AND/OR VOMITING; Start at 15:30 Ondansetron HCl (Zofran Inj) 4 mg Q6H PRN IV NAUSEA AND/OR VOMITING; Start at 15:30 Acetaminophen (Tylenol Tab) 650 mg Q6H PRN PO PAIN LEVEL 1-3 OR FEVER; Start 09/07/17 at 15:30 Acetaminophen/ Hydrocodone Bitart ([place] (5/325)) 1 tab Q6H PRN PO MODERATE PAIN LEVEL 4-6 Last administered on 09/13/17 21:28; Admin Dose 1 TAB; Start 09/07/17 at 15:30 Docusate Sodium (Colace) 100 mg Q12H PRN PO CONSTIPATION Last administered on 09/13/17 22:32; Admin Dose 100 MG; Start 09/07/17 at 15:30 Bisacodyl (Dulcolax) 5 mg DAILY PRN PO CONSTIPATION Last administered on 22:32; Admin Dose 5 MG; Start 09/07/17 at 15:30 Bisacodyl (Dulcolax Supp) 10 mg DAILY PRN [place] CONSTIPATION; Start 09/07/17 at 15:30 Ropinirole HCl (Requip) 1 mg Q6 PRN PO MUSCLE SPASMS Last administered on 09/13 21:29; Admin Dose 1 MG; Start 09/07/17 at 18:00 Heparin Sodium (Porcine) (Heparin (5000 Units/0.5 ml)) 5,000 unit BID SC Last administered on 09/13/17 08:52; Admin Dose 5,000 UNIT; Start 09/09/17 at 09: 00 Mupirocin (Bactroban) 1 applic BID TOP Last administered on 09/13/17 21:31; Admin Dose 1 APPLIC; Start 09/09/17 at 21:00 Alprazolam (Xanax) 0.25 mg Q6H PRN PO ANXIETY Last administered on 09/13/17 22:32; Admin Dose 0.25 MG; Start 09/12/17 at 10:15 POP BOYCE MD Sep 14, 2017 07:25
[2017-09-14] MEDS: SEVELAMER 800 MG TAB PO SCH ×3 (08:00→17:39)
[2017-09-14] MEDS: ALLOPURINOL 100 MG TAB PO SCH (09:00)
[2017-09-14] MEDS: ASPIRIN 81 MG TAB PO SCH (09:00)
[2017-09-14] MEDS: RANOLAZINE (SR) 500 MG TAB PO SCH ×2 (09:00→20:23)
[2017-09-14] MEDS: MUPIROCIN 2% 22 GM OINT TOP SCH ×2 (09:00→21:00)
[2017-09-14] MEDS: HEPARIN 5,000 UNIT/0.5 ML VIAL SC SCH ×2 (09:00→21:00)
[2017-09-14] MEDS: LOSARTAN 25 MG TAB PO SCH (09:00)
[2017-09-14] MEDS: PANTOPRAZOLE (EC) 40 MG TAB PO SCH (09:11)
--- NOTE | 2017-09-14 10:32 | CONS ---
Date/Time of Note Date/Time of Note DATE: 09/14/17 TIME: 10:30 Assessment/Plan Assessment/Plan Additional Assessment/Plan Assessment and recommendations; 1. Patient admitted with hypoxemia due to recurrent left pleural effusion status post multiple thoracentesis. 2. End-stage renal disease, on hemodialysis. 3. Anemia. Continue current treatment. Patient awaiting Pleurx catheter placement on the left side. Procedure is scheduled for tomorrow 12:30 p.m. Consultation Date/Type/Reason Admit Date/Time Sep 07, 2017 at 14:16 Initial Consult Date 09/08/17 Type of Consultation: Pulmonary 24 HR Interval Summary Free Text/Dictation Patient's condition is fair. Denies any shortness of breath. Although still requiring nonrebreather mask for O2 saturation. Denies any chest pain, fever, wheezing, sputum production. General exam; elderly male, awake and alert. Currently in no distress. Exam/Review of Systems Vital Signs Vitals Vital Signs Date Time Temp Pulse Resp B/P Pulse Ox O2 Delivery O2 Flow Rate FiO2 09/14/17 08:10 95 09/14/17 07:56 97.2 20 142/68 100 09/14/17 01:21 15.0 09/13/17 20:00 Non Rebreather Intake and Output 09/13/17 09/13/17 09/14/17 15:00 23:00 07:00 Intake Total 500 ml 350 ml 900 ml Output Total 4000 ml Balance -3500 ml 350 ml 900 ml Exam HEENT exam; supple neck, no JVD. No lymphadenopathy. Midline trachea. No thyromegaly. Has bilateral intraocular lens implants. Patient has a multiple carious teeth. Chest exam; diminished breath sounds left lung. Right lung is clear. S1-S2 audible, no murmurs. Regular rhythm. Abdomen exam; soft, nontender. No organomegaly. Bowel sounds audible. Extremity exam; no edema. [employer] exam; no focal motor deficit. Results Result Diagram: 09/13/1772409/13/17724 Medications Medications Current Medications Allopurinol (Zyloprim) 100 mg DAILY PO Last administered on 09/13/17 08:47; Admin Dose 100 MG; Start 09/08/17 at 09:00 Aspirin (Aspirin) 81 mg DAILY PO Last administered on 09/13/17 08:47; Admin Dose 81 MG; Start 09/08/17 at 09:00 Clopidogrel Bisulfate (plaVIX) 75 mg QHS PO Last administered on 09/13/17 21: 28; Admin Dose 75 MG; Start 09/07/17 at 21:00; Status Future Hold Losartan Potassium (Cozaar) 25 mg DAILY PO Last administered on 09/12/17 08: 43; Admin Dose 25 MG; Start 09/08/17 at 09:00 Ranolazine (Ranexa) 500 mg Q12 PO Last administered on 09/13/17 08:47; Admin Dose 500 MG; Start 09/07/17 at 21:00 Zolpidem Tartrate (Ambien) 7.5 mg QHS PRN PO INSOMNIA Last administered on 21:29; Admin Dose 7.5 MG; Start 09/07/17 at 15:30 Ondansetron HCl (Zofran Tab) 4 mg Q6H PRN PO NAUSEA AND/OR VOMITING; Start at 15:30 Ondansetron HCl (Zofran Inj) 4 mg Q6H PRN IV NAUSEA AND/OR VOMITING; Start at 15:30 Acetaminophen (Tylenol Tab) 650 mg Q6H PRN PO PAIN LEVEL 1-3 OR FEVER; Start 09/07/17 at 15:30 Acetaminophen/ Hydrocodone Bitart ([place] (5/325)) 1 tab Q6H PRN PO MODERATE PAIN LEVEL 4-6 Last administered on 09/13/17 21:28; Admin Dose 1 TAB; Start 09/07/17 at 15:30 Docusate Sodium (Colace) 100 mg Q12H PRN PO CONSTIPATION Last administered on 09/13/17 22:32; Admin Dose 100 MG; Start 09/07/17 at 15:30 Bisacodyl (Dulcolax) 5 mg DAILY PRN PO CONSTIPATION Last administered on 22:32; Admin Dose 5 MG; Start 09/07/17 at 15:30 Bisacodyl (Dulcolax Supp) 10 mg DAILY PRN [place] CONSTIPATION; Start 09/07/17 at 15:30 Ropinirole HCl (Requip) 1 mg Q6 PRN PO MUSCLE SPASMS Last administered on 09/13 21:29; Admin Dose 1 MG; Start 09/07/17 at 18:00 Heparin Sodium (Porcine) (Heparin (5000 Units/0.5 ml)) 5,000 unit BID SC Last administered on 09/13/17 08:52; Admin Dose 5,000 UNIT; Start 09/09/17 at 09: 00 Mupirocin (Bactroban) 1 applic BID TOP Last administered on 09/13/17 21:31; Admin Dose 1 APPLIC; Start 09/09/17 at 21:00 Alprazolam (Xanax) 0.25 mg Q6H PRN PO ANXIETY Last administered on 09/13/17 22:32; Admin Dose 0.25 MG; Start 09/12/17 at 10:15 YUSUF FLAHERTY Sep 14, 2017 10:32
[2017-09-14] MEDS: ROPINIROLE 0.25 MG TAB PO PRN ×2 (17:39→20:29)
[2017-09-14] MEDS: ALPRAZOLAM 0.25 MG TAB PO PRN (18:55)
[2017-09-14] MEDS: HYDROCODONE/APAP (5/325) TAB PO PRN (20:23)
[2017-09-14] MEDS: ZOLPIDEM 5 MG TAB PO PRN (20:29)
[2017-09-15] VITALS (29 sets, daily range): BP systolic 91–169; BP diastolic 44–79; PULSE 95–113; RESP 16–32
[2017-09-15] MEDS: PANTOPRAZOLE (EC) 40 MG TAB PO SCH (05:09)
[2017-09-15] MEDS: ALPRAZOLAM 0.25 MG TAB PO PRN (05:09)
[2017-09-15] MEDS: ONDANSETRON 4 MG INJ IV PRN (05:09)
[2017-09-15] MEDS: ONDANSETRON 4 MG TAB PO PRN (05:15)
[2017-09-15] MEDS: SEVELAMER 800 MG TAB PO SCH ×3 (08:00→18:05)
--- NOTE | 2017-09-15 08:05 | CONS ---
Date/Time of Note Date/Time of Note DATE: 09/15/17 TIME: 08:03 Assessment/Plan Assessment/Plan Problems: (1) HTN (hypertension) Comment: controlled (2) Pleural effusion, left Status: Acute Comment: for planned Lt Pleur-X catheter placement today w drainage Lt chets (3) ESRD (end stage renal disease) on dialysis Status: Chronic Comment: HD today Consultation Date/Type/Reason Admit Date/Time Sep 07, 2017 at 14:16 Type of Consultation: neph 24 HR Interval Summary Free Text/Dictation baseline sob Exam/Review of Systems Vital Signs Vitals Vital Signs Date Time Temp Pulse Resp B/P Pulse Ox O2 Delivery O2 Flow Rate FiO2 09/15/17 04:03 100 09/15/17 04:00 98.3 20 142/75 98 09/15/17 03:20 15.0 09/14/17 21:00 Non Rebreather Intake and Output 09/14/17 09/14/17 09/15/17 15:00 23:00 07:00 Intake Total 400 ml Balance 400 ml Exam Constitutional: alert, oriented Eyes: nl conjunctiva Respiratory: diminished breath sounds (Lt chest) Cardiovascular: regular rate and rhythm Gastrointestinal: nl liver, spleen, soft Extremities: normal pulses Results Result Diagram: 09/13/1725 09/13/17 0725 Medications Medications Current Medications Allopurinol (Zyloprim) 100 mg DAILY PO Last administered on 09/13/17 08:47; Admin Dose 100 MG; Start 09/08/17 at 09:00 Aspirin (Aspirin) 81 mg DAILY PO Last administered on 09/13/17 08:47; Admin Dose 81 MG; Start 09/08/17 at 09:00 Clopidogrel Bisulfate (plaVIX) 75 mg QHS PO Last administered on 09/13/17 21: 28; Admin Dose 75 MG; Start 09/07/17 at 21:00; Status Future Hold Losartan Potassium (Cozaar) 25 mg DAILY PO Last administered on 09/12/17 08: 43; Admin Dose 25 MG; Start 09/08/17 at 09:00 Ranolazine (Ranexa) 500 mg Q12 PO Last administered on 09/14/17 20:23; Admin Dose 500 MG; Start 09/07/17 at 21:00 Zolpidem Tartrate (Ambien) 7.5 mg QHS PRN PO INSOMNIA Last administered on 20:29; Admin Dose 7.5 MG; Start 09/07/17 at 15:30 Ondansetron HCl (Zofran Tab) 4 mg Q6H PRN PO NAUSEA AND/OR VOMITING Last administered on 09/15/17 05:15; Admin Dose 4 MG; Start 09/07/17 at 15:30 Ondansetron HCl (Zofran Inj) 4 mg Q6H PRN IV NAUSEA AND/OR VOMITING; Start at 15:30 Acetaminophen (Tylenol Tab) 650 mg Q6H PRN PO PAIN LEVEL 1-3 OR FEVER; Start 09/07/17 at 15:30 Acetaminophen/ Hydrocodone Bitart ([place] (5/325)) 1 tab Q6H PRN PO MODERATE PAIN LEVEL 4-6 Last administered on 09/14/17 20:23; Admin Dose 1 TAB; Start 09/07/17 at 15:30 Docusate Sodium (Colace) 100 mg Q12H PRN PO CONSTIPATION Last administered on 09/13/17 22:32; Admin Dose 100 MG; Start 09/07/17 at 15:30 Bisacodyl (Dulcolax) 5 mg DAILY PRN PO CONSTIPATION Last administered on 22:32; Admin Dose 5 MG; Start 09/07/17 at 15:30 Bisacodyl (Dulcolax Supp) 10 mg DAILY PRN [place] CONSTIPATION; Start 09/07/17 at 15:30 Ropinirole HCl (Requip) 1 mg Q6 PRN PO MUSCLE SPASMS Last administered on 09/14 20:29; Admin Dose 1 MG; Start 09/07/17 at 18:00 Heparin Sodium (Porcine) (Heparin (5000 Units/0.5 ml)) 5,000 unit BID SC Last administered on 09/13/17 08:52; Admin Dose 5,000 UNIT; Start 09/09/17 at 09: 00 Mupirocin (Bactroban) 1 applic BID TOP Last administered on 09/14/17 09:00; Admin Dose 1 APPLIC; Start 09/09/17 at 21:00 Alprazolam (Xanax) 0.25 mg Q6H PRN PO ANXIETY Last administered on 09/15/17 05:09; Admin Dose 0.25 MG; Start 09/12/17 at 10:15 POP BOYCE MD Sep 15, 2017 08:05
[2017-09-15] MEDS: RANOLAZINE (SR) 500 MG TAB PO SCH ×2 (09:00→22:06)
[2017-09-15] MEDS: LOSARTAN 25 MG TAB PO SCH (09:00)
[2017-09-15] MEDS: HEPARIN 5,000 UNIT/0.5 ML VIAL SC SCH ×2 (09:00→21:00)
[2017-09-15 10:02] LABS: BASOPHIL # 0.1 10^3/ul (0.0-0.1); BASOPHILS % 0.9 % (0.0-2.0); EOSINOPHILS # 0.2 10^3/ul (0.0-0.5); EOSINOPHILS % 2.5 % (0.0-7.0); HEMATOCRIT 37.1 % (42.0-52.0); HEMOGLOBIN 11.2 g/dl (14.0-18.0); LYMPHOCYTES # 1.3 10^3/ul (0.8-2.9); LYMPHOCYTES % 19.9 % (15.0-51.0); MEAN CORPUSCULAR HEMOGLOBIN 28.9 pg (29.0-33.0); MEAN CORPUSCULAR HGB CONC 30.2 g/dl (32.0-37.0); MEAN CORPUSCULAR VOLUME 95.6 fl (82.0-101.0); MONOCYTE # 0.3 10^3/ul (0.3-0.9); MONOCYTES % 5.1 % (0.0-11.0); NEUTROPHIL # 4.6 10^3/ul (1.6-7.5); NEUTROPHILS % 71.3 % (39.0-77.0); PLATELET COUNT 200 10^3/UL (140-415); RED BLOOD COUNT 3.88 10^6/ul (4.70-6.10); RED CELL DISTRIBUTION WIDTH 16.4 % (11.5-14.5); WHITE BLOOD COUNT 6.5 10^3/ul (4.8-10.8)
--- NOTE | 2017-09-15 10:22 | CONS ---
Date/Time of Note Date/Time of Note DATE: 09/15/17 TIME: 10:20 Assessment/Plan Assessment/Plan Additional Assessment/Plan Assessment and recommendations; 1. Patient admitted with recurrent left pleural effusion status post multiple thoracentesis with rapid recommendation of fluid. Awaiting Pleurx catheter placement today. 2. End-stage renal disease, on hemodialysis. 3. Anemia of chronic disease. Continue current supportive care. Prognosis is guarded. Consultation Date/Type/Reason Admit Date/Time Sep 07, 2017 at 14:16 Initial Consult Date 09/08/17 Type of Consultation: Pulmonary 24 HR Interval Summary Free Text/Dictation Patient condition is stable. Currently getting hemodialysis at bedside. Still on 100% nonrebreather for O2 saturation maintenance. Patient complains of very minimal shortness of breath. Denies any chest pain. General exam; elderly male, awake, laying flat in bed. Currently in no distress. Patient is awake and alert. Exam/Review of Systems Vital Signs Vitals Vital Signs Date Time Temp Pulse Resp B/P Pulse Ox O2 Delivery O2 Flow Rate FiO2 09/15/17 08:06 109 09/15/17 08:04 98.0 20 151/79 99 09/15/17 03:20 15.0 09/14/17 21:00 Non Rebreather Intake and Output 09/14/17 09/14/17 09/15/17 15:00 23:00 07:00 Intake Total 400 ml Balance 400 ml Exam HEENT exam; supple neck, no JVD. No lymphadenopathy. Midline trachea. No thyromegaly. Patient has a multiple carious teeth. Has bilateral intraocular lens implants. Chest exam; diminished breath sounds left lung. Right lung is clear to auscultation. S1-S2 audible, no murmurs. Regular rhythm. Abdomen exam; soft, nontender. No organomegaly. Bowel sounds audible. Extremity exam; no edema. [employer] exam; no focal deficit. Results Result Diagram: 09/15/17 0911 09/13/17 0725 Results 24 hrs Laboratory Tests Test 09/15/17 09:11 White Blood Count 6.5 Red Blood Count 3.88 L Hemoglobin 11.2 L Hematocrit 37.1 L Mean Corpuscular Volume 95.6 Mean Corpuscular Hemoglobin 28.9 L Mean Corpuscular Hemoglobin Concent 30.2 L Red Cell Distribution Width 16.4 H Platelet Count 200 Mean Platelet Volume 10.0 Neutrophils % 71.3 Lymphocytes % 19.9 Monocytes % 5.1 Eosinophils % 2.5 Basophils % 0.9 Nucleated Red Blood Cells % 0.0 Neutrophils # 4.6 Lymphocytes # 1.3 Monocytes # 0.3 Eosinophils # 0.2 Basophils # 0.1 Nucleated Red Blood Cells # 0.0 Medications Medications Current Medications Allopurinol (Zyloprim) 100 mg DAILY PO Last administered on 09/13/17 08:47; Admin Dose 100 MG; Start 09/08/17 at 09:00 Aspirin (Aspirin) 81 mg DAILY PO Last administered on 09/13/17 08:47; Admin Dose 81 MG; Start 09/08/17 at 09:00 Clopidogrel Bisulfate (plaVIX) 75 mg QHS PO Last administered on 09/13/17 21: 28; Admin Dose 75 MG; Start 09/07/17 at 21:00; Status Future Hold Losartan Potassium (Cozaar) 25 mg DAILY PO Last administered on 09/12/17 08: 43; Admin Dose 25 MG; Start 09/08/17 at 09:00 Ranolazine (Ranexa) 500 mg Q12 PO Last administered on 09/14/17 20:23; Admin Dose 500 MG; Start 09/07/17 at 21:00 Zolpidem Tartrate (Ambien) 7.5 mg QHS PRN PO INSOMNIA Last administered on 20:29; Admin Dose 7.5 MG; Start 09/07/17 at 15:30 Ondansetron HCl (Zofran Tab) 4 mg Q6H PRN PO NAUSEA AND/OR VOMITING Last administered on 09/15/17 05:15; Admin Dose 4 MG; Start 09/07/17 at 15:30 Ondansetron HCl (Zofran Inj) 4 mg Q6H PRN IV NAUSEA AND/OR VOMITING; Start at 15:30 Acetaminophen (Tylenol Tab) 650 mg Q6H PRN PO PAIN LEVEL 1-3 OR FEVER; Start 09/07/17 at 15:30 Acetaminophen/ Hydrocodone Bitart ([place] (5/325)) 1 tab Q6H PRN PO MODERATE PAIN LEVEL 4-6 Last administered on 09/14/17 20:23; Admin Dose 1 TAB; Start 09/07/17 at 15:30 Docusate Sodium (Colace) 100 mg Q12H PRN PO CONSTIPATION Last administered on 09/13/17 22:32; Admin Dose 100 MG; Start 09/07/17 at 15:30 Bisacodyl (Dulcolax) 5 mg DAILY PRN PO CONSTIPATION Last administered on 22:32; Admin Dose 5 MG; Start 09/07/17 at 15:30 Bisacodyl (Dulcolax Supp) 10 mg DAILY PRN [place] CONSTIPATION; Start 09/07/17 at 15:30 Ropinirole HCl (Requip) 1 mg Q6 PRN PO MUSCLE SPASMS Last administered on 09/14 20:29; Admin Dose 1 MG; Start 09/07/17 at 18:00 Heparin Sodium (Porcine) (Heparin (5000 Units/0.5 ml)) 5,000 unit BID SC Last administered on 09/13/17 08:52; Admin Dose 5,000 UNIT; Start 09/09/17 at 09: 00 Mupirocin (Bactroban) 1 applic BID TOP Last administered on 09/14/17 09:00; Admin Dose 1 APPLIC; Start 09/09/17 at 21:00 Alprazolam (Xanax) 0.25 mg Q6H PRN PO ANXIETY Last administered on 09/15/17 05:09; Admin Dose 0.25 MG; Start 09/12/17 at 10:15 YUSUF FLAHERTY Sep 15, 2017 10:22
[2017-09-15] MEDS: ALBUMIN HUMAN 25% 100 ML IV PRN (10:26)
[2017-09-15 10:27] LABS: ALBUMIN 3.1 g/dl (3.3-4.9); ALBUMIN/GLOBULIN RATIO 0.86; BILIRUBIN,INDIRECT 0.1 mg/dl (0-1.1); BILIRUBIN,TOTAL 0.1 mg/dl (0.2-1.3); CALCIUM 9.6 mg/dl (8.4-10.2); CREATININE 6.36 mg/dl (0.61-1.24); POTASSIUM 4.8 mmol/L (3.5-5.1); TOTAL PROTEIN 6.7 g/dl (6.1-8.1)
[2017-09-15] MEDS: MUPIROCIN 2% 22 GM OINT TOP SCH ×2 (11:42→21:00)
[2017-09-15] MEDS ORDERED: GLYCOPYRROLATE 0.4 MG INJ ONE (14:41)
[2017-09-15] MEDS ORDERED: ROCURONIUM 50 MG INJ ONE (14:41)
[2017-09-15] MEDS ORDERED: LIDOCAINE 2% (SDV) 5 ML INJ ONE (14:41)
[2017-09-15] MEDS ORDERED: SUCCINYLCHOLINE CHLORIDE 100 MG/5 ML SYG IV ONE (14:41)
[2017-09-15] MEDS ORDERED: NEOSTIGMINE 3 MG/3 ML SYRINGE ONE (14:41)
[2017-09-15] MEDS ORDERED: PROPOFOL 20 ML ONE (14:41)
[2017-09-15] MEDS ORDERED: LIDOCAINE 1% (MPF) 30 ML INJ INJ ONE (15:18)
[2017-09-15] MEDS ORDERED: MIDAZOLAM 1 MG/ML 2 ML INJ ONE (15:36)
[2017-09-15] MEDS ORDERED: FENTAnyl 50 MCG/ML VIAL ONE (16:13)
--- NOTE | 2017-09-15 16:21 | RADRPT ---
PROCEDURE: FLUOROSCOPICALLY-GUIDED PERCUTANEOUS PLACEMENT OF TUNNELED LEFT PLEURAL DRAINAGE CATHET ER. CLINICAL INDICATION: Large left pleural effusion and shortness of breath. TECHNIQUE: Prior to the procedure, informed consent was obtained. Risks including bleeding, infection, and pneu mothorax were explained to the patient. The patient understood and was willing to proceed. A procedu ral pause was performed. The patient's name, date of , and procedure to be performed were verif ied. The central line was inserted with all elements of maximal sterile barrier technique. All of th e following were used: head covering, facial mask, sterile gown, sterile gloves, a large sterile she et, hand hygiene, and 2% chlorhexidine for cutaneous antisepsis. The left lateral chest wall was p repped and draped in the usual sterile fashion. Following the local injection of Xylocaine, the left pleural space was punctured under fluoroscopic guidance posterior laterally at approximately the 8/9 rib interspace with an 18-gauge needle through which a 0.035 inch floppy tip guidewire was advanced into the left pleural space.Following this, th e catheter was tunneled subcutaneously in the left chest wall. The cuff of the catheter was position ed in the subcutaneous tissues within the tunnel approximately 2 cm from the exit site of the cathet er. Serial dilatation was then performed to 16-Arabic and a 16-Arabic peel-away sheath was advanced over the guidewire. The 15.5 Arabic Pleurex pleural catheter was advanced through the peel-away musa th into the left pleural space. Pleural fluid was aspirated, to verify position. The peel-away sheat h was removed. The subcutaneous tissues were closed with running 3-0 Vicryl. The skin wound was then closed using 4-0 Vicryl and a running subcuticular technique. The catheter was secured to the skin with 3-0 silk suture. The site was dressed. The patient tolerated the procedure well. 1.9 liters of pleural fluid was aspirated out of the catheter without problem. COMPARISON: Chest x-ray dated 09/12/2017. FINDINGS: The final images demonstrate the pleural catheter within the left pleural space. Total fluoroscopy time is 0.2 minutes. 9 images of the chest were obtained with image intensifier. IMPRESSION: 1. Satisfactory percutaneous insertion of tunneled left pleural drainage catheter with fluoroscopic guidance. RPTAT: QQ .Lazaro Zavaleta MD, MD Date Time Electronically viewed and signed by .Lazaro Zavaleta MD, on 09/15/2017 16:21 .R/
[2017-09-15] MEDS ORDERED: MIDAZOLAM 1 MG/ML 2 ML INJ IV PRN (16:30)
[2017-09-15] MEDS ORDERED: METOCLOPRAMIDE 10 MG INJ IV PRN (16:30)
[2017-09-15] MEDS ORDERED: OXYCODONE/ACETAMINOPHEN (5/325) TAB PO PRN ×2 (16:30)
[2017-09-15] MEDS ORDERED: DIPHENHYDRAMINE 50 MG INJ IV PRN (16:30)
[2017-09-15] MEDS ORDERED: hydrALAzine 20 MG INJ IV PRN (16:30)
[2017-09-15] MEDS ORDERED: HYDROmorphONE (0.2 MG/ML) 10ML SYG IV PRN ×3 (16:30)
[2017-09-15] MEDS ORDERED: ONDANSETRON 4 MG INJ IV PRN (16:30)
[2017-09-15] MEDS ORDERED: MEPERIDINE 25 MG INJ IV PRN (16:30)
[2017-09-15] MEDS ORDERED: FENTAnyl 50 MCG/ML VIAL IV PRN ×3 (16:30)
[2017-09-15] MEDS ORDERED: LABETALOL HCL 20MG INJ IV PRN (16:30)
[2017-09-15] MEDS ORDERED: EPHEDrine SULFATE 50 MG/5 ML SYG IV PRN (16:30)
[2017-09-15] MEDS: ALLOPURINOL 100 MG TAB PO SCH (18:20)
[2017-09-15] MEDS: ASPIRIN 81 MG TAB PO SCH (18:20)
[2017-09-15] MEDS: HYDROCODONE/APAP (5/325) TAB PO PRN (19:18)
[2017-09-15] MEDS: HYDROmorphONE 1 MG/ML SYG IV PRN (22:03)
[2017-09-16] VITALS (21 sets, daily range): BP systolic 92–146; BP diastolic 56–78; PULSE 93–115; RESP 17–20
[2017-09-16] MEDS: HYDROmorphONE 1 MG/ML SYG IV PRN ×5 (00:39→21:24)
--- NOTE | 2017-09-16 07:59 | RADRPT ---
PROCEDURE: XR Chest. CLINICAL INDICATION: Shortness of breath TECHNIQUE: An AP view of the chest was obtained. COMPARISON: CHEST 09/12/2017; CHEST 09/11/2017; CHEST 09/10/2017; CHEST 09/08/2017; LILI CHEST 04/01/2017; CR CHEST 12/04/2016; CR CHEST 12/02/2016; CR CHEST 12/01/2016 FINDINGS: There has been interval placement of a left chest tube. There is a right subclavian biventricular pa cemaker AICD. There are diffuse bilateral interstitial opacities with small bilateral pleural effusions. No pne umothorax is seen. The cardiomediastinal silhouette is upper limits of normal in size. Calcificatio ns are seen within the aortic arch. The osseous structures demonstrate senescent changes. IMPRESSION: 1. Diffuse bilateral interstitial opacities may reflect edema or pneumonia. There is significant im proved aeration of the left lung when compared to the prior examination with trace residual left ple ural effusion. 2. Aortic atherosclerosis. 3. Tubes and lines, as described above. RPTAT: .Shasta Cisneros MD, MD Date Time Electronically viewed and signed by .Shasta Cisneros MD, MD on 09/16/2017 07:58 .G/
[2017-09-16] MEDS: SEVELAMER 800 MG TAB PO SCH ×3 (08:00→17:58)
[2017-09-16] MEDS: HEPARIN 5,000 UNIT/0.5 ML VIAL SC SCH ×2 (09:00→21:00)
[2017-09-16] MEDS: LOSARTAN 25 MG TAB PO SCH (09:00)
[2017-09-16] MEDS: MUPIROCIN 2% 22 GM OINT TOP SCH ×2 (09:00→21:26)
[2017-09-16] MEDS: ALBUMIN HUMAN 25% 100 ML IV PRN ×2 (09:24→09:54)
--- NOTE | 2017-09-16 09:49 | CONS ---
Date/Time of Note Date/Time of Note DATE: 09/16/17 TIME: 09:47 Assessment/Plan Assessment/Plan Problems: (1) Pleural effusion, left Status: Acute Comment: s/p 2L out PleurX yesterday... drain prn (2) ESRD (end stage renal disease) on dialysis Status: Chronic Comment: on HD now... trying to increase UF (3) CHF (congestive heart failure) Comment: improved Consultation Date/Type/Reason Admit Date/Time Sep 07, 2017 at 14:16 Type of Consultation: neph 24 HR Interval Summary Free Text/Dictation feels a bit better post PleurX drainage yesterday Exam/Review of Systems Vital Signs Vitals Vital Signs Date Time Temp Pulse Resp B/P Pulse Ox O2 Delivery O2 Flow Rate FiO2 09/16/17 08:12 98.0 107 20 113/65 91 09/16/17 05:34 15.0 09/15/17 20:00 Non Rebreather Intake and Output 09/15/17 09/15/17 09/16/17 14:59 22:59 06:59 Intake Total 500 ml 750 ml Output Total 2500 ml 1905 ml Balance -2000 ml -1155 ml Exam Constitutional: alert, oriented Head: normocephalic Neck: supple Respiratory: clear to auscultation, other (PleurX tube Lt post chest) Cardiovascular: regular rate and rhythm Gastrointestinal: nl liver, spleen, soft Extremities: edema (none), normal pulses Results Result Diagram: 09/15/17 0911 09/15/17 0911 Medications Medications Current Medications Allopurinol (Zyloprim) 100 mg DAILY PO Last administered on 09/15/17 18:20; Admin Dose 100 MG; Start 09/08/17 at 09:00 Aspirin (Aspirin) 81 mg DAILY PO Last administered on 09/15/17 18:20; Admin Dose 81 MG; Start 09/08/17 at 09:00 Clopidogrel Bisulfate (plaVIX) 75 mg QHS PO Last administered on 09/13/17 21: 28; Admin Dose 75 MG; Start 09/07/17 at 21:00; Status Future Hold Losartan Potassium (Cozaar) 25 mg DAILY PO Last administered on 09/12/17 08: 43; Admin Dose 25 MG; Start 09/08/17 at 09:00 Ranolazine (Ranexa) 500 mg Q12 PO Last administered on 09/15/17 22:06; Admin Dose 500 MG; Start 09/07/17 at 21:00 Zolpidem Tartrate (Ambien) 7.5 mg QHS PRN PO INSOMNIA Last administered on 20:29; Admin Dose 7.5 MG; Start 09/07/17 at 15:30 Ondansetron HCl (Zofran Tab) 4 mg Q6H PRN PO NAUSEA AND/OR VOMITING Last administered on 09/15/17 05:15; Admin Dose 4 MG; Start 09/07/17 at 15:30 Ondansetron HCl (Zofran Inj) 4 mg Q6H PRN IV NAUSEA AND/OR VOMITING; Start at 15:30 Acetaminophen (Tylenol Tab) 650 mg Q6H PRN PO PAIN LEVEL 1-3 OR FEVER; Start 09/07/17 at 15:30 Acetaminophen/ Hydrocodone Bitart ([place] (5/325)) 1 tab Q6H PRN PO MODERATE PAIN LEVEL 4-6 Last administered on 09/15/17 19:18; Admin Dose 1 TAB; Start 09/07/17 at 15:30 Docusate Sodium (Colace) 100 mg Q12H PRN PO CONSTIPATION Last administered on 09/13/17 22:32; Admin Dose 100 MG; Start 09/07/17 at 15:30 Bisacodyl (Dulcolax) 5 mg DAILY PRN PO CONSTIPATION Last administered on 22:32; Admin Dose 5 MG; Start 09/07/17 at 15:30 Bisacodyl (Dulcolax Supp) 10 mg DAILY PRN [place] CONSTIPATION; Start 09/07/17 at 15:30 Ropinirole HCl (Requip) 1 mg Q6 PRN PO MUSCLE SPASMS Last administered on 09/14 20:29; Admin Dose 1 MG; Start 09/07/17 at 18:00 Heparin Sodium (Porcine) (Heparin (5000 Units/0.5 ml)) 5,000 unit BID SC Last administered on 09/13/17 08:52; Admin Dose 5,000 UNIT; Start 09/09/17 at 09: 00 Mupirocin (Bactroban) 1 applic BID TOP Last administered on 09/15/17 11:42; Admin Dose 1 APPLIC; Start 09/09/17 at 21:00 Alprazolam (Xanax) 0.25 mg Q6H PRN PO ANXIETY Last administered on 09/15/17 05:09; Admin Dose 0.25 MG; Start 09/12/17 at 10:15 Hydromorphone HCl (Dilaudid) 1 mg Q2H PRN IV severe pain Last administered on 09/16/17 08:19; Admin Dose 1 MG; Start 09/15/17 at 22:00 POP BOYCE MD Sep 16, 2017 09:49
[2017-09-16] MEDS: RANOLAZINE (SR) 500 MG TAB PO SCH ×2 (12:41→21:24)
[2017-09-16] MEDS: ALLOPURINOL 100 MG TAB PO SCH (12:41)
[2017-09-16] MEDS: ASPIRIN 81 MG TAB PO SCH (12:41)
[2017-09-16] MEDS: PANTOPRAZOLE (EC) 40 MG TAB PO SCH (12:41)
--- NOTE | 2017-09-16 14:57 | CONS ---
Date/Time of Note Date/Time of Note DATE: 09/16/17 TIME: 14:56 Consult Date/Type/Reason Admit Date/Time Sep 07, 2017 at 14:16 Initial Consult Date 09/08/17 Type of Consultation: Pulmonary Subjective Patient stable status post Pleurx catheter placement Objective Vital Signs Date Time Temp Pulse Resp B/P Pulse Ox O2 Delivery O2 Flow Rate FiO2 09/16/17 12:28 100 15.0 100 09/16/17 12:10 106 09/16/17 12:08 98.0 20 116/66 09/15/17 20:00 Non Rebreather Intake and Output 09/15/17 09/15/17 09/16/17 15:00 23:00 07:00 Intake Total 500 ml 750 ml Output Total 2500 ml 1905 ml Balance -2000 ml -1155 ml Exam GENERAL: Chronically ill-appearing gentleman comfortable at rest on nonrebreather. Anxious. VITAL SIGNS: per chart NECK: Supple. No JVD or lymphadenopathy. CARDIAC EXAM: S1, S2. No added sounds or murmurs. CHEST: Diminished air entry bilaterally with rales ABDOMEN: Soft, nontender. No guarding or rebound. EXTREMITIES: No cyanosis, clubbing or edema. NEUROLOGIC: Generalized weakness. No focal deficits. Results/Medications Result Diagram: 09/15/17 0911 09/15/17 0911 Results 24 hrs Laboratory Tests Test 09/16/17 11:54 Troponin I 0.048 Medications Current Medications Allopurinol (Zyloprim) 100 mg DAILY PO Last administered on 09/16/17 12:41; Admin Dose 100 MG; Start 09/08/17 at 09:00 Aspirin (Aspirin) 81 mg DAILY PO Last administered on 09/16/17 12:41; Admin Dose 81 MG; Start 09/08/17 at 09:00 Clopidogrel Bisulfate (plaVIX) 75 mg QHS PO Last administered on 09/13/17 21: 28; Admin Dose 75 MG; Start 09/07/17 at 21:00; Status Future Hold Losartan Potassium (Cozaar) 25 mg DAILY PO Last administered on 09/12/17 08: 43; Admin Dose 25 MG; Start 09/08/17 at 09:00 Ranolazine (Ranexa) 500 mg Q12 PO Last administered on 09/16/17 12:41; Admin Dose 500 MG; Start 09/07/17 at 21:00 Zolpidem Tartrate (Ambien) 7.5 mg QHS PRN PO INSOMNIA Last administered on 20:29; Admin Dose 7.5 MG; Start 09/07/17 at 15:30 Ondansetron HCl (Zofran Tab) 4 mg Q6H PRN PO NAUSEA AND/OR VOMITING Last administered on 09/15/17 05:15; Admin Dose 4 MG; Start 09/07/17 at 15:30 Ondansetron HCl (Zofran Inj) 4 mg Q6H PRN IV NAUSEA AND/OR VOMITING; Start at 15:30 Acetaminophen (Tylenol Tab) 650 mg Q6H PRN PO PAIN LEVEL 1-3 OR FEVER; Start 09/07/17 at 15:30 Acetaminophen/ Hydrocodone Bitart ([place] (5/325)) 1 tab Q6H PRN PO MODERATE PAIN LEVEL 4-6 Last administered on 09/15/17 19:18; Admin Dose 1 TAB; Start 09/07/17 at 15:30 Docusate Sodium (Colace) 100 mg Q12H PRN PO CONSTIPATION Last administered on 09/13/17 22:32; Admin Dose 100 MG; Start 09/07/17 at 15:30 Bisacodyl (Dulcolax) 5 mg DAILY PRN PO CONSTIPATION Last administered on 22:32; Admin Dose 5 MG; Start 09/07/17 at 15:30 Bisacodyl (Dulcolax Supp) 10 mg DAILY PRN [place] CONSTIPATION; Start 09/07/17 at 15:30 Ropinirole HCl (Requip) 1 mg Q6 PRN PO MUSCLE SPASMS Last administered on 09/14 20:29; Admin Dose 1 MG; Start 09/07/17 at 18:00 Heparin Sodium (Porcine) (Heparin (5000 Units/0.5 ml)) 5,000 unit BID SC Last administered on 09/13/17 08:52; Admin Dose 5,000 UNIT; Start 09/09/17 at 09: 00 Mupirocin (Bactroban) 1 applic BID TOP Last administered on 09/16/17 09:00; Admin Dose 1 APPLIC; Start 09/09/17 at 21:00 Alprazolam (Xanax) 0.25 mg Q6H PRN PO ANXIETY Last administered on 09/15/17 05:09; Admin Dose 0.25 MG; Start 09/12/17 at 10:15 Hydromorphone HCl (Dilaudid) 1 mg Q2H PRN IV severe pain Last administered on 09/16/17 12:41; Admin Dose 1 MG; Start 09/15/17 at 22:00 Assessment/Plan Chief Complaint/Hosp Course Assessment 1. End-stage renal failure on hemodialysis 2. Recurrent pleural effusion. Requiring frequent thoracentesis. 3. History of hypertension 4. Hypoxemic respiratory failure secondary to above Plan 1. Continue hemodialysis with volume removal. 2. Status post Pleurx catheter, continue daily drainage 3. Decrease FiO2. Placed on Ventimask off nonrebreather. Will titrate to nasal cannula. Significant anxiety component. Problems: MUKUND URBANO MD, [facility] Sep 16, 2017 14:57
--- NOTE | 2017-09-16 15:08 | RADRPT ---
PROCEDURE: XR Chest. CLINICAL INDICATION: dyspnea during dialysis TECHNIQUE: Single frontal view of the chest was obtained COMPARISON: Chest radiograph dated April 01, 2017. FINDINGS: AICD device overlying the right chest wall. Aortic calcifications are present. There is stable mild cardiomegaly. There is mild pulmonary vascular congestion with probable small layering right pleural effusion. No focal consolidations or pneumothorax. The osseous structures are grossly unremarkable. IMPRESSION: 1. Mild pulmonary vascular congestion with probable small layering right pleural effusion. RPTAT:AAJJ Physician Tiffanie Date Time Electronically viewed and signed by Geovanna Mixon Physician on 09/16/2017 15:08 QL/
[2017-09-17] VITALS (10 sets, daily range): BP systolic 124–148; BP diastolic 64–79; PULSE 100–110; RESP 16–20
[2017-09-17] MEDS: HYDROmorphONE 1 MG/ML SYG IV PRN ×5 (01:02→20:54)
[2017-09-17] MEDS: BISACODYL (EC) 5 MG TAB PO PRN ×2 (01:03→09:00)
[2017-09-17] MEDS: DOCUSATE SODIUM 100 MG CAP PO PRN ×2 (01:03→09:00)
[2017-09-17] MEDS: SEVELAMER 800 MG TAB PO SCH ×3 (08:00→17:05)
--- NOTE | 2017-09-17 08:18 | CONS ---
Date/Time of Note Date/Time of Note DATE: 09/17/17 TIME: 08:14 Assessment/Plan Assessment/Plan Problems: (1) V-tach Comment: mult episodes last kwadwo... asx... will ask Dr Perez to see and review (2) HTN (hypertension) Comment: controlled (3) SOB (shortness of breath) Comment: at baseline despite good UF w HD + removal 2L w catheter Lt chest (4) ESRD (end stage renal disease) on dialysis Status: Chronic Comment: for HD in am (5) Pleural effusion, left Status: Acute Comment: s/p PleurX placement...c/o soreness at site Consultation Date/Type/Reason Admit Date/Time Sep 07, 2017 at 14:16 Type of Consultation: neph 24 HR Interval Summary Free Text/Dictation still a bit sore p;ost PleurX placement...sob about the safe Exam/Review of Systems Vital Signs Vitals Vital Signs Date Time Temp Pulse Resp B/P Pulse Ox O2 Delivery O2 Flow Rate FiO2 09/17/17 08:11 106 09/17/17 04:00 98.0 17 136/74 94 09/17/17 02:48 15.0 50 09/16/17 20:00 Venti Mask Intake and Output 09/16/17 09/16/17 09/17/17 15:00 23:00 07:00 Intake Total 500 ml 400 ml 320 ml Output Total 4000 ml 3500 ml Balance -3500 ml -3100 ml 320 ml Exam Constitutional: alert, oriented Respiratory: clear to auscultation Cardiovascular: regular rate and rhythm Gastrointestinal: nl liver, spleen Extremities: normal pulses (fxn AVF LUE) Results Result Diagram: 09/15/1711 09/15/1711 Results 24 hrs Laboratory Tests Test 09/16/17 11:54 Troponin I 0.048 Medications Medications Current Medications Allopurinol (Zyloprim) 100 mg DAILY PO Last administered on 09/16/17 12:41; Admin Dose 100 MG; Start 09/08/17 at 09:00 Aspirin (Aspirin) 81 mg DAILY PO Last administered on 09/16/17 12:41; Admin Dose 81 MG; Start 09/08/17 at 09:00 Clopidogrel Bisulfate (plaVIX) 75 mg QHS PO Last administered on 09/13/17 21: 28; Admin Dose 75 MG; Start 09/07/17 at 21:00; Status Future Hold Losartan Potassium (Cozaar) 25 mg DAILY PO Last administered on 09/12/17 08: 43; Admin Dose 25 MG; Start 09/08/17 at 09:00 Ranolazine (Ranexa) 500 mg Q12 PO Last administered on 09/16/17 21:24; Admin Dose 500 MG; Start 09/07/17 at 21:00 Zolpidem Tartrate (Ambien) 7.5 mg QHS PRN PO INSOMNIA Last administered on 20:29; Admin Dose 7.5 MG; Start 09/07/17 at 15:30 Ondansetron HCl (Zofran Tab) 4 mg Q6H PRN PO NAUSEA AND/OR VOMITING Last administered on 09/15/17 05:15; Admin Dose 4 MG; Start 09/07/17 at 15:30 Ondansetron HCl (Zofran Inj) 4 mg Q6H PRN IV NAUSEA AND/OR VOMITING; Start at 15:30 Acetaminophen (Tylenol Tab) 650 mg Q6H PRN PO PAIN LEVEL 1-3 OR FEVER; Start 09/07/17 at 15:30 Acetaminophen/ Hydrocodone Bitart ([place] (5/325)) 1 tab Q6H PRN PO MODERATE PAIN LEVEL 4-6 Last administered on 09/15/17 19:18; Admin Dose 1 TAB; Start 09/07/17 at 15:30 Docusate Sodium (Colace) 100 mg Q12H PRN PO CONSTIPATION Last administered on 09/17/17 01:03; Admin Dose 100 MG; Start 09/07/17 at 15:30 Bisacodyl (Dulcolax) 5 mg DAILY PRN PO CONSTIPATION Last administered on 01:03; Admin Dose 5 MG; Start 09/07/17 at 15:30 Bisacodyl (Dulcolax Supp) 10 mg DAILY PRN [place] CONSTIPATION; Start 09/07/17 at 15:30 Ropinirole HCl (Requip) 1 mg Q6 PRN PO MUSCLE SPASMS Last administered on 09/14 20:29; Admin Dose 1 MG; Start 09/07/17 at 18:00 Heparin Sodium (Porcine) (Heparin (5000 Units/0.5 ml)) 5,000 unit BID SC Last administered on 09/13/17 08:52; Admin Dose 5,000 UNIT; Start 09/09/17 at 09: 00 Mupirocin (Bactroban) 1 applic BID TOP Last administered on 09/16/17 21:26; Admin Dose 1 APPLIC; Start 09/09/17 at 21:00 Alprazolam (Xanax) 0.25 mg Q6H PRN PO ANXIETY Last administered on 09/15/17 05:09; Admin Dose 0.25 MG; Start 09/12/17 at 10:15 Hydromorphone HCl (Dilaudid) 1 mg Q2H PRN IV severe pain Last administered on 09/17/17 01:02; Admin Dose 1 MG; Start 09/15/17 at 22:00 POP BOYCE MD Sep 17, 2017 08:18
[2017-09-17] MEDS: RANOLAZINE (SR) 500 MG TAB PO SCH ×2 (09:00→20:12)
[2017-09-17] MEDS: LOSARTAN 25 MG TAB PO SCH (09:00)
[2017-09-17] MEDS: HEPARIN 5,000 UNIT/0.5 ML VIAL SC SCH ×2 (09:00→20:13)
[2017-09-17] MEDS: PANTOPRAZOLE (EC) 40 MG TAB PO SCH (09:00)
[2017-09-17] MEDS: ALLOPURINOL 100 MG TAB PO SCH (09:01)
[2017-09-17] MEDS: ASPIRIN 81 MG TAB PO SCH (09:01)
[2017-09-17] MEDS: MUPIROCIN 2% 22 GM OINT TOP SCH ×2 (09:02→20:12)
[2017-09-17] MEDS: ROPINIROLE 0.25 MG TAB PO PRN (09:22)
[2017-09-17 09:37] LABS: BASOPHIL # 0.1 10^3/ul (0.0-0.1); BASOPHILS % 0.7 % (0.0-2.0); EOSINOPHILS # 0.1 10^3/ul (0.0-0.5); EOSINOPHILS % 1.8 % (0.0-7.0); HEMATOCRIT 36.1 % (42.0-52.0); HEMOGLOBIN 10.8 g/dl (14.0-18.0); LYMPHOCYTES # 1.5 10^3/ul (0.8-2.9); MEAN CORPUSCULAR HGB CONC 29.9 g/dl (32.0-37.0); MEAN CORPUSCULAR VOLUME 96.8 fl (82.0-101.0); MEAN PLATELET VOLUME 10.6 fl (7.4-10.4); MONOCYTE # 0.4 10^3/ul (0.3-0.9); MONOCYTES % 5.5 % (0.0-11.0); NEUTROPHIL # 5.6 10^3/ul (1.6-7.5); NEUTROPHILS % 72.7 % (39.0-77.0); PLATELET COUNT 206 10^3/UL (140-415); RED BLOOD COUNT 3.73 10^6/ul (4.70-6.10); RED CELL DISTRIBUTION WIDTH 16.6 % (11.5-14.5); WHITE BLOOD COUNT 7.7 10^3/ul (4.8-10.8)
[2017-09-17] MEDS: ALBUTEROL/IPRATROPIUM (NEB) 3 ML AMP HHN PRN (09:38)
--- NOTE | 2017-09-17 09:51 | CONS ---
Date/Time of Note Date/Time of Note DATE: 09/17/17 TIME: 09:48 Assessment/Plan Assessment/Plan Additional Assessment/Plan Assessment and recommendations; 1. Patient admitted with recurrent left pleural effusion status post multiple thoracentesis now requiring a Pleurx catheter with marked improvement in symptoms. 2. History of end-stage renal disease, on hemodialysis. 3. Anemia of chronic disease. Continue current supportive care. Consider discharge. Consultation Date/Type/Reason Admit Date/Time Sep 07, 2017 at 14:16 Initial Consult Date 09/08/17 Type of Consultation: Pulmonary 24 HR Interval Summary Free Text/Dictation Patient's condition is stable. Shortness of breath is markedly improved. General exam; elderly male, awake and alert. Currently in no distress. Exam/Review of Systems Vital Signs Vitals Vital Signs Date Time Temp Pulse Resp B/P Pulse Ox O2 Delivery O2 Flow Rate FiO2 09/17/17 08:17 97.9 114 16 148/79 97 09/17/17 02:48 15.0 50 09/16/17 20:00 Venti Mask Intake and Output 09/16/17 09/16/17 09/17/17 15:00 23:00 07:00 Intake Total 500 ml 400 ml 320 ml Output Total 4000 ml 3500 ml Balance -3500 ml -3100 ml 320 ml Exam HEENT exam; supple neck, positive JVD. No lymphadenopathy. Midline trachea. No thyromegaly. Pupils are small bilaterally. Chest exam; clear to auscultation. Left-sided Pleurx catheter in place. S1-S2 audible, no murmurs. Regular rhythm. Abdomen exam; soft, nondistended. Nontender. No organomegaly. Bowel sounds audible. Extremity exam; no edema. [employer] exam; no focal deficit. Results Result Diagram: 09/17/17 0819 09/15/17 0911 Results 24 hrs Laboratory Tests Test 09/16/17 11:54 09/17/17 08:19 Troponin I 0.048 White Blood Count 7.7 Red Blood Count 3.73 L Hemoglobin 10.8 L Hematocrit 36.1 L Mean Corpuscular Volume 96.8 Mean Corpuscular Hemoglobin 29.0 Mean Corpuscular Hemoglobin Concent 29.9 L Red Cell Distribution Width 16.6 H Platelet Count 206 Mean Platelet Volume 10.6 H Neutrophils % 72.7 Lymphocytes % 19.0 Monocytes % 5.5 Eosinophils % 1.8 Basophils % 0.7 Nucleated Red Blood Cells % 0.0 Neutrophils # 5.6 Lymphocytes # 1.5 Monocytes # 0.4 Eosinophils # 0.1 Basophils # 0.1 Nucleated Red Blood Cells # 0.0 Medications Medications Current Medications Allopurinol (Zyloprim) 100 mg DAILY PO Last administered on 09/17/17 09:01; Admin Dose 100 MG; Start 09/08/17 at 09:00 Aspirin (Aspirin) 81 mg DAILY PO Last administered on 09/17/17 09:01; Admin Dose 81 MG; Start 09/08/17 at 09:00 Clopidogrel Bisulfate (plaVIX) 75 mg QHS PO Last administered on 09/13/17 21: 28; Admin Dose 75 MG; Start 09/07/17 at 21:00; Status Future Hold Losartan Potassium (Cozaar) 25 mg DAILY PO Last administered on 09/12/17 08: 43; Admin Dose 25 MG; Start 09/08/17 at 09:00 Ranolazine (Ranexa) 500 mg Q12 PO Last administered on 09/17/17 09:00; Admin Dose 500 MG; Start 09/07/17 at 21:00 Zolpidem Tartrate (Ambien) 7.5 mg QHS PRN PO INSOMNIA Last administered on 20:29; Admin Dose 7.5 MG; Start 09/07/17 at 15:30 Ondansetron HCl (Zofran Tab) 4 mg Q6H PRN PO NAUSEA AND/OR VOMITING Last administered on 09/15/17 05:15; Admin Dose 4 MG; Start 09/07/17 at 15:30 Ondansetron HCl (Zofran Inj) 4 mg Q6H PRN IV NAUSEA AND/OR VOMITING; Start at 15:30 Acetaminophen (Tylenol Tab) 650 mg Q6H PRN PO PAIN LEVEL 1-3 OR FEVER; Start 09/07/17 at 15:30 Acetaminophen/ Hydrocodone Bitart ([place] (5/325)) 1 tab Q6H PRN PO MODERATE PAIN LEVEL 4-6 Last administered on 09/15/17 19:18; Admin Dose 1 TAB; Start 09/07/17 at 15:30 Docusate Sodium (Colace) 100 mg Q12H PRN PO CONSTIPATION Last administered on 09/17/17 09:00; Admin Dose 100 MG; Start 09/07/17 at 15:30 Bisacodyl (Dulcolax) 5 mg DAILY PRN PO CONSTIPATION Last administered on 09:00; Admin Dose 5 MG; Start 09/07/17 at 15:30 Bisacodyl (Dulcolax Supp) 10 mg DAILY PRN [place] CONSTIPATION; Start 09/07/17 at 15:30 Ropinirole HCl (Requip) 1 mg Q6 PRN PO MUSCLE SPASMS Last administered on 09/17 09:22; Admin Dose 1 MG; Start 09/07/17 at 18:00 Heparin Sodium (Porcine) (Heparin (5000 Units/0.5 ml)) 5,000 unit BID SC Last administered on 09/13/17 08:52; Admin Dose 5,000 UNIT; Start 09/09/17 at 09: 00 Mupirocin (Bactroban) 1 applic BID TOP Last administered on 09/17/17 09:02; Admin Dose 1 APPLIC; Start 09/09/17 at 21:00 Alprazolam (Xanax) 0.25 mg Q6H PRN PO ANXIETY Last administered on 09/15/17 05:09; Admin Dose 0.25 MG; Start 09/12/17 at 10:15 Hydromorphone HCl (Dilaudid) 1 mg Q2H PRN IV severe pain Last administered on 09/17/17 09:02; Admin Dose 1 MG; Start 09/15/17 at 22:00 YUSUF FLAHERTY Sep 17, 2017 09:51
--- NOTE | 2017-09-17 10:27 | RADRPT ---
PROCEDURE: XR Chest. CLINICAL INDICATION: Shortness of breath TECHNIQUE: An AP view of the chest was obtained. COMPARISON: CHEST 09/16/2017; CHEST 09/16/2017; CHEST 09/12/2017; CHEST 09/11/2017; LILI CHEST 04/01/2017; CR CHEST 12/04/2016; CR CHEST 12/02/2016; CR CHEST 12/01/2016 FINDINGS: There is a right subclavian biventricular pacemaker AICD. There are diffuse bilateral interstitial opacities with small bilateral pleural effusions. No pne umothorax is seen. The cardiomediastinal silhouette is mildly enlarged . Calcifications are seen w ithin the aortic arch. The osseous structures demonstrate senescent changes. IMPRESSION: 1. Findings suggestive of interstitial edema with small bilateral pleural effusions. No significant interval change. 2. Mild cardiomegaly and aortic atherosclerosis. 3. Right subclavian biventricular pacemaker AICD. RPTAT: HH .Shasta Cisneros MD, MD Date Time Electronically viewed and signed by .Shasta Cisneros MD, MD on 09/17/2017 10:27 .G/
[2017-09-17 10:38] LABS: CREATININE 6.59 mg/dl (0.61-1.24); POTASSIUM 5.2 mmol/L (3.5-5.1)
[2017-09-17 10:39] LABS: ALBUMIN/GLOBULIN RATIO 1.25; TOTAL PROTEIN 7.2 g/dl (6.1-8.1)
--- NOTE | 2017-09-17 15:14 | RADRPT ---
Vent Rate: 108 bpm RR Interval: [address] Interval: 112 msec QRS Duration: 148 msec QT Interval: 384 msec QTC Interval: 514 msec P-R-T [place]: 48 - -58 - 91 degrees Sinus tachycardia Left axis deviation Nonspecific intraventricular block Possible Lateral infarct , age undetermined Abnormal ECG Electronically Signed By: Gian Carrillo [id number]
--- NOTE | 2017-09-17 17:18 | CONS ---
Date/Time of Note Date/Time of Note DATE: 09/17/17 TIME: 16:51 Assessment/Plan Assessment/Plan Chief Complaint/Hosp Course ASSESSMENT: 1. WCT- likely sinus tachy with [place] LBBB, no e/o sig arrhythmia. ICD in place will get interrogation 2. ICM- LVEF 30-35%, s/p BiV ICD, chronic NYHA III on home o2 3. Acute on Chronic diastolic+systolic heart failure - fluid mgmt with iHD. 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 5. Hyperlipidemia. 6. CAD- s/p many previous PCI. known [employer] ostial LCx with L/R-L collaterals. [employer]AT [employer] branch of D1 with l-l collaterals . patent lad/Diag stents. distal RCA disease s/p PCI 11/2016 7. pleural effusion chronic likely from chornic fluid overload- s/p pleurex catheter placement Impression: - ICD interrogation, will arrange cont tele monitoring - con asa 81mg daily - cont plavix 75 mg daily, restart when safe post procedure - pt intolerant of bb/nitrate previously - cont losartan - cont statin - cont dialysis per renal Problems: Consultation Date/Type/Reason Admit Date/Time Sep 07, 2017 at 14:16 Initial Consult Date 09/10/17 Type of Consultation: cardiology Reason for Consultation Ischemic CM, arrhythmia Referring Provider: POP BOYCE MD 24 HR Interval Summary Free Text/Dictation Patient status post Pleurx catheter placement. He is stable without complaints of pain at catheter site improved with Dilaudid. Patient states breathing is stable continues on high flow O2. Denies any chest pain or pressure. Patient denies any dizziness sinus nausea vomiting palpitations syncope or shocks. Telemetry reviewed shows sinus tachycardia with bi-V pacing. Patient with intermittent left bundle branch block. This is likely due to elevated heart rate and loss of IV pacing. Does not appear to be ventricular tachycardia. PVCs are noted Detailed Summary Eyes: no complaints ENT: no complaints Respiratory: shortness of breath Cardiovascular: no complaints Gastrointestinal: no complaints Exam/Review of Systems Vital Signs Vitals Vital Signs Date Time Temp Pulse Resp B/P Pulse Ox O2 Delivery O2 Flow Rate FiO2 09/17/17 16:13 100 09/17/17 16:11 97.6 18 124/64 100 09/17/17 08:30 Venti Mask 7.0 09/17/17 02:48 50 Intake and Output 09/16/17 09/16/17 09/17/17 15:00 23:00 07:00 Intake Total 500 ml 400 ml 320 ml Output Total 4000 ml 3500 ml Balance -3500 ml -3100 ml 320 ml Exam Constitutional: alert, oriented, cachectic Psych: normal mood Head: normocephalic Eyes: nl conjunctiva ENMT: nl external ears & nose Neck: jvd, supple Respiratory: pleurex catheter in place, decreased bs bases Cardiovascular: regular rate and rhythm, ii/vi broderick rusb. No edema Gastrointestinal: soft, no ttp Ext: L fistula + thrill Results Result Diagram: 09/17/1781809/17/17 08 Results 24 hrs Laboratory Tests Test 09/17/17 08:16 09/17/17 08:19 Magnesium Level 1.9 White Blood Count 7.7 Red Blood Count 3.73 L Hemoglobin 10.8 L Hematocrit 36.1 L Mean Corpuscular Volume 96.8 Mean Corpuscular Hemoglobin 29.0 Mean Corpuscular Hemoglobin Concent 29.9 L Red Cell Distribution Width 16.6 H Platelet Count 206 Mean Platelet Volume 10.6 H Neutrophils % 72.7 Lymphocytes % 19.0 Monocytes % 5.5 Eosinophils % 1.8 Basophils % 0.7 Nucleated Red Blood Cells % 0.0 Neutrophils # 5.6 Lymphocytes # 1.5 Monocytes # 0.4 Eosinophils # 0.1 Basophils # 0.1 Nucleated Red Blood Cells # 0.0 Sodium Level 142 Potassium Level 5.2 H Chloride Level 97 Carbon Dioxide Level 25 Anion Gap 25 H Blood Urea Nitrogen 51 H Creatinine 6.59 H Glucose Level 73 Calcium Level 10.0 Total Bilirubin 0.0 L Direct Bilirubin 0.00 Indirect Bilirubin 0.0 Aspartate Amino Transf (AST/SGOT) 20 Alanine Aminotransferase (ALT/SGPT) 25 Alkaline Phosphatase 250 H Total Protein 7.2 Albumin 4.0 Globulin 3.20 Albumin/Globulin Ratio 1.25 Medications Medications Current Medications Allopurinol (Zyloprim) 100 mg DAILY PO Last administered on 09/17/17 09:01; Admin Dose 100 MG; Start 09/08/17 at 09:00 Aspirin (Aspirin) 81 mg DAILY PO Last administered on 09/17/17 09:01; Admin Dose 81 MG; Start 09/08/17 at 09:00 Clopidogrel Bisulfate (plaVIX) 75 mg QHS PO Last administered on 09/13/17 21: 28; Admin Dose 75 MG; Start 09/07/17 at 21:00; Status Future Hold Losartan Potassium (Cozaar) 25 mg DAILY PO Last administered on 09/12/17 08: 43; Admin Dose 25 MG; Start 09/08/17 at 09:00 Ranolazine (Ranexa) 500 mg Q12 PO Last administered on 09/17/17 09:00; Admin Dose 500 MG; Start 09/07/17 at 21:00 Zolpidem Tartrate (Ambien) 7.5 mg QHS PRN PO INSOMNIA Last administered on 20:29; Admin Dose 7.5 MG; Start 09/07/17 at 15:30 Ondansetron HCl (Zofran Tab) 4 mg Q6H PRN PO NAUSEA AND/OR VOMITING Last administered on 09/15/17 05:15; Admin Dose 4 MG; Start 09/07/17 at 15:30 Ondansetron HCl (Zofran Inj) 4 mg Q6H PRN IV NAUSEA AND/OR VOMITING; Start at 15:30 Acetaminophen (Tylenol Tab) 650 mg Q6H PRN PO PAIN LEVEL 1-3 OR FEVER; Start 09/07/17 at 15:30 Acetaminophen/ Hydrocodone Bitart ([place] (5/325)) 1 tab Q6H PRN PO MODERATE PAIN LEVEL 4-6 Last administered on 09/15/17 19:18; Admin Dose 1 TAB; Start 09/07/17 at 15:30 Docusate Sodium (Colace) 100 mg Q12H PRN PO CONSTIPATION Last administered on 09/17/17 09:00; Admin Dose 100 MG; Start 09/07/17 at 15:30 Bisacodyl (Dulcolax) 5 mg DAILY PRN PO CONSTIPATION Last administered on 09:00; Admin Dose 5 MG; Start 09/07/17 at 15:30 Bisacodyl (Dulcolax Supp) 10 mg DAILY PRN [place] CONSTIPATION; Start 09/07/17 at 15:30 Ropinirole HCl (Requip) 1 mg Q6 PRN PO MUSCLE SPASMS Last administered on 09/17 09:22; Admin Dose 1 MG; Start 09/07/17 at 18:00 Heparin Sodium (Porcine) (Heparin (5000 Units/0.5 ml)) 5,000 unit BID SC Last administered on 09/13/17 08:52; Admin Dose 5,000 UNIT; Start 09/09/17 at 09: 00 Mupirocin (Bactroban) 1 applic BID TOP Last administered on 09/17/17 09:02; Admin Dose 1 APPLIC; Start 09/09/17 at 21:00 Alprazolam (Xanax) 0.25 mg Q6H PRN PO ANXIETY Last administered on 09/15/17 05:09; Admin Dose 0.25 MG; Start 09/12/17 at 10:15 Hydromorphone HCl (Dilaudid) 1 mg Q2H PRN IV severe pain Last administered on 09/17/17 13:46; Admin Dose 1 MG; Start 09/15/17 at 22:00 Procedures Procedures cxr report reviewed in emr SUSANA VASQUEZ Sep 17, 2017 17:06
[2017-09-18] VITALS (24 sets, daily range): BP systolic 79–150; BP diastolic 37–76; PULSE 90–110; RESP 16–22
[2017-09-18] MEDS: PANTOPRAZOLE (EC) 40 MG TAB PO SCH (00:30)
[2017-09-18] MEDS: HYDROmorphONE 1 MG/ML SYG IV PRN ×5 (00:30→17:02)
[2017-09-18] MEDS: HEPARIN 5,000 UNIT/0.5 ML VIAL SC SCH ×2 (07:18→21:00)
--- NOTE | 2017-09-18 08:10 | CONS ---
Date/Time of Note Date/Time of Note DATE: 09/18/17 TIME: 08:03 Assessment/Plan Assessment/Plan Problems: (1) Debility Comment: again... major issue is the dispo... he wants to go home, but currently not enough caregivers in place at home, and again is ADAMENT on him NOT going home... he currently refuses SNF... CM and SS on the case... recurrent problem/issue (2) SOB (shortness of breath) Comment: req high flow O2 w relief (3) ESRD (end stage renal disease) on dialysis Status: Chronic Comment: for HD today and q MWF (4) Pleural effusion, left Status: Acute Comment: s/p drainage, w PleurX catheter in place for prn use/drainage... check CXR post HD today to f/u Consultation Date/Type/Reason Admit Date/Time Sep 07, 2017 at 14:16 Type of Consultation: neph Referring Provider: POP BOYCE MD 24 HR Interval Summary Free Text/Dictation pt stable... appreciate cards eval/follow up... social issues remain prominent Exam/Review of Systems Vital Signs Vitals Vital Signs Date Time Temp Pulse Resp B/P Pulse Ox O2 Delivery O2 Flow Rate FiO2 09/18/17 04:50 94 09/18/17 04:00 98.5 20 150/76 98 09/18/17 01:28 15.0 50 09/17/17 20:00 Simple Mask Intake and Output 09/17/17 09/17/17 09/18/17 15:00 23:00 07:00 Intake Total 200 ml 300 ml Output Total 0 ml Balance 0 ml 200 ml 300 ml Exam Constitutional: alert, oriented Psych: no complaints Neck: supple Respiratory: diminished breath sounds (sl on the Lt) Cardiovascular: regular rate and rhythm Gastrointestinal: nl liver, spleen, soft Extremities: normal pulses (fxn AVF on LUE) Results Result Diagram: 09/17/1719 09/17/17 0819 Results 24 hrs Laboratory Tests Test 09/17/17 08:16 09/17/17 08:19 Magnesium Level 1.9 White Blood Count 7.7 Red Blood Count 3.73 L Hemoglobin 10.8 L Hematocrit 36.1 L Mean Corpuscular Volume 96.8 Mean Corpuscular Hemoglobin 29.0 Mean Corpuscular Hemoglobin Concent 29.9 L Red Cell Distribution Width 16.6 H Platelet Count 206 Mean Platelet Volume 10.6 H Neutrophils % 72.7 Lymphocytes % 19.0 Monocytes % 5.5 Eosinophils % 1.8 Basophils % 0.7 Nucleated Red Blood Cells % 0.0 Neutrophils # 5.6 Lymphocytes # 1.5 Monocytes # 0.4 Eosinophils # 0.1 Basophils # 0.1 Nucleated Red Blood Cells # 0.0 Sodium Level 142 Potassium Level 5.2 H Chloride Level 97 Carbon Dioxide Level 25 Anion Gap 25 H Blood Urea Nitrogen 51 H Creatinine 6.59 H Glucose Level 73 Calcium Level 10.0 Total Bilirubin 0.0 L Direct Bilirubin 0.00 Indirect Bilirubin 0.0 Aspartate Amino Transf (AST/SGOT) 20 Alanine Aminotransferase (ALT/SGPT) 25 Alkaline Phosphatase 250 H Total Protein 7.2 Albumin 4.0 Globulin 3.20 Albumin/Globulin Ratio 1.25 Medications Medications Current Medications Allopurinol (Zyloprim) 100 mg DAILY PO Last administered on 09/17/17 09:01; Admin Dose 100 MG; Start 09/08/17 at 09:00 Aspirin (Aspirin) 81 mg DAILY PO Last administered on 09/17/17 09:01; Admin Dose 81 MG; Start 09/08/17 at 09:00 Clopidogrel Bisulfate (plaVIX) 75 mg QHS PO Last administered on 09/13/17 21: 28; Admin Dose 75 MG; Start 09/07/17 at 21:00; Status Future Hold Losartan Potassium (Cozaar) 25 mg DAILY PO Last administered on 09/12/17 08: 43; Admin Dose 25 MG; Start 09/08/17 at 09:00 Ranolazine (Ranexa) 500 mg Q12 PO Last administered on 09/17/17 20:12; Admin Dose 500 MG; Start 09/07/17 at 21:00 Zolpidem Tartrate (Ambien) 7.5 mg QHS PRN PO INSOMNIA Last administered on 20:29; Admin Dose 7.5 MG; Start 09/07/17 at 15:30 Ondansetron HCl (Zofran Tab) 4 mg Q6H PRN PO NAUSEA AND/OR VOMITING Last administered on 09/15/17 05:15; Admin Dose 4 MG; Start 09/07/17 at 15:30 Ondansetron HCl (Zofran Inj) 4 mg Q6H PRN IV NAUSEA AND/OR VOMITING; Start at 15:30 Acetaminophen (Tylenol Tab) 650 mg Q6H PRN PO PAIN LEVEL 1-3 OR FEVER; Start 09/07/17 at 15:30 Acetaminophen/ Hydrocodone Bitart ([place] (5/325)) 1 tab Q6H PRN PO MODERATE PAIN LEVEL 4-6 Last administered on 09/15/17 19:18; Admin Dose 1 TAB; Start 09/07/17 at 15:30 Docusate Sodium (Colace) 100 mg Q12H PRN PO CONSTIPATION Last administered on 09/17/17 09:00; Admin Dose 100 MG; Start 09/07/17 at 15:30 Bisacodyl (Dulcolax) 5 mg DAILY PRN PO CONSTIPATION Last administered on 09:00; Admin Dose 5 MG; Start 09/07/17 at 15:30 Bisacodyl (Dulcolax Supp) 10 mg DAILY PRN [place] CONSTIPATION; Start 09/07/17 at 15:30 Ropinirole HCl (Requip) 1 mg Q6 PRN PO MUSCLE SPASMS Last administered on 09/17 09:22; Admin Dose 1 MG; Start 09/07/17 at 18:00 Heparin Sodium (Porcine) (Heparin (5000 Units/0.5 ml)) 5,000 unit BID SC Last administered on 09/13/17 08:52; Admin Dose 5,000 UNIT; Start 09/09/17 at 09: 00 Mupirocin (Bactroban) 1 applic BID TOP Last administered on 09/17/17 20:12; Admin Dose 1 APPLIC; Start 09/09/17 at 21:00 Alprazolam (Xanax) 0.25 mg Q6H PRN PO ANXIETY Last administered on 09/15/17 05:09; Admin Dose 0.25 MG; Start 09/12/17 at 10:15 Hydromorphone HCl (Dilaudid) 1 mg Q2H PRN IV severe pain Last administered on 09/18/17 04:10; Admin Dose 1 MG; Start 09/15/17 at 22:00 POP BOYCE MD Sep 18, 2017 08:10
[2017-09-18] MEDS: LOSARTAN 25 MG TAB PO SCH (09:00)
[2017-09-18] MEDS: BISACODYL (EC) 5 MG TAB PO PRN (09:03)
[2017-09-18] MEDS: RANOLAZINE (SR) 500 MG TAB PO SCH ×2 (09:03→21:00)
[2017-09-18] MEDS: ASPIRIN 81 MG TAB PO SCH (09:03)
[2017-09-18] MEDS: DOCUSATE SODIUM 100 MG CAP PO PRN (09:03)
[2017-09-18] MEDS: ROPINIROLE 0.25 MG TAB PO PRN (09:03)
[2017-09-18] MEDS: ALLOPURINOL 100 MG TAB PO SCH (09:03)
[2017-09-18] MEDS: SEVELAMER 800 MG TAB PO SCH ×3 (09:03→18:05)
[2017-09-18] MEDS: MUPIROCIN 2% 22 GM OINT TOP SCH ×2 (09:05→21:00)
[2017-09-18] MEDS: HYDROCODONE/APAP (5/325) TAB PO PRN (10:05)
--- NOTE | 2017-09-18 12:06 | CONS ---
Date/Time of Note Date/Time of Note DATE: 09/18/17 TIME: 12:04 Assessment/Plan Assessment/Plan Additional Assessment/Plan Chest x-ray was reviewed from yesterday morning which is showing mild CHF pattern. No significant pleural effusion is present. Assessment and recommendations; 1. Patient admitted with recurrent left pleural effusion status post multiple thoracentesis ultimately requiring left Pleurx catheter placement. 2. Significant improvement in patient's shortness of breath. 3. Chronic renal failure, on hemodialysis. 4. Anemia of chronic disease. Continue current treatment. Consider discharge. Consultation Date/Type/Reason Admit Date/Time Sep 07, 2017 at 14:16 Initial Consult Date 09/08/17 Type of Consultation: Pulmonary Referring Provider: POP BOYCE MD 24 HR Interval Summary Free Text/Dictation Patient's condition is stable. Still complains of shortness of breath upon minimal exertion. General exam; elderly male, awake, currently in no distress. Exam/Review of Systems Vital Signs Vitals Vital Signs Date Time Temp Pulse Resp B/P Pulse Ox O2 Delivery O2 Flow Rate FiO2 09/18/17 11:36 97.8 76 17 91/41 95 09/18/17 08:20 Simple Mask 7.0 09/18/17 01:28 50 Intake and Output 09/17/17 09/17/17 09/18/17 15:00 23:00 07:00 Intake Total 200 ml 300 ml Output Total 0 ml Balance 0 ml 200 ml 300 ml Exam HEENT exam; supple neck, positive JVD. No lymphadenopathy. Midline trachea. No thyromegaly. Chest exam; diminished but clear breath sounds. Left Pleurx catheter in place. S1-S2 audible, no murmurs. Regular rhythm. Abdomen exam; soft, nondistended. No organomegaly. Bowel sounds audible. Extremity exam; no edema. 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 Results Result Diagram: 09/17/1781809/17/17818 Medications Medications Current Medications Allopurinol (Zyloprim) 100 mg DAILY PO Last administered on 09/18/17 09:03; Admin Dose 100 MG; Start 09/08/17 at 09:00 Aspirin (Aspirin) 81 mg DAILY PO Last administered on 09/18/17 09:03; Admin Dose 81 MG; Start 09/08/17 at 09:00 Clopidogrel Bisulfate (plaVIX) 75 mg QHS PO Last administered on 09/13/17 21: 28; Admin Dose 75 MG; Start 09/07/17 at 21:00; Status Future Hold Losartan Potassium (Cozaar) 25 mg DAILY PO Last administered on 09/12/17 08: 43; Admin Dose 25 MG; Start 09/08/17 at 09:00 Ranolazine (Ranexa) 500 mg Q12 PO Last administered on 09/18/17 09:03; Admin Dose 500 MG; Start 09/07/17 at 21:00 Zolpidem Tartrate (Ambien) 7.5 mg QHS PRN PO INSOMNIA Last administered on 20:29; Admin Dose 7.5 MG; Start 09/07/17 at 15:30 Ondansetron HCl (Zofran Tab) 4 mg Q6H PRN PO NAUSEA AND/OR VOMITING Last administered on 09/15/17 05:15; Admin Dose 4 MG; Start 09/07/17 at 15:30 Ondansetron HCl (Zofran Inj) 4 mg Q6H PRN IV NAUSEA AND/OR VOMITING; Start at 15:30 Acetaminophen (Tylenol Tab) 650 mg Q6H PRN PO PAIN LEVEL 1-3 OR FEVER; Start 09/07/17 at 15:30 Acetaminophen/ Hydrocodone Bitart ([place] (5/325)) 1 tab Q6H PRN PO MODERATE PAIN LEVEL 4-6 Last administered on 09/18/17 10:05; Admin Dose 1 TAB; Start at 15:30 Docusate Sodium (Colace) 100 mg Q12H PRN PO CONSTIPATION Last administered on 09/18/17 09:03; Admin Dose 100 MG; Start 09/07/17 at 15:30 Bisacodyl (Dulcolax) 5 mg DAILY PRN PO CONSTIPATION Last administered on 09:03; Admin Dose 5 MG; Start 09/07/17 at 15:30 Bisacodyl (Dulcolax Supp) 10 mg DAILY PRN [place] CONSTIPATION; Start 09/07/17 at 15:30 Ropinirole HCl (Requip) 1 mg Q6 PRN PO MUSCLE SPASMS Last administered on 09:03; Admin Dose 1 MG; Start 09/07/17 at 18:00 Heparin Sodium (Porcine) (Heparin (5000 Units/0.5 ml)) 5,000 unit BID SC Last administered on 09/13/17 08:52; Admin Dose 5,000 UNIT; Start 09/09/17 at 09: 00 Mupirocin (Bactroban) 1 applic BID TOP Last administered on 09/18/17 09:05; Admin Dose 1 APPLIC; Start 09/09/17 at 21:00 Alprazolam (Xanax) 0.25 mg Q6H PRN PO ANXIETY Last administered on 09/15/17 05:09; Admin Dose 0.25 MG; Start 09/12/17 at 10:15 Hydromorphone HCl (Dilaudid) 1 mg Q2H PRN IV severe pain Last administered on 09/18/17 09:03; Admin Dose 1 MG; Start 09/15/17 at 22:00 YUSUF FLAHERTY Sep 18, 2017 12:06
[2017-09-18] MEDS: ALBUMIN HUMAN 25% 100 ML IV PRN (13:49)
--- NOTE | 2017-09-18 23:56 | CONS ---
Date/Time of Note Date/Time of Note DATE: 09/18/17 TIME: 23:54 Assessment/Plan Assessment/Plan Chief Complaint/Hosp Course 1. ICM- LVEF 30-35%, s/p BiV ICD, chronic NYHA III on home o2 2. Acute on Chronic diastolic+systolic heart failure - fluid mgmt with iHD. 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 4. Hyperlipidemia. 5. CAD- s/p many previous PCI. 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 patent lad/Diag stents. distal RCA disease s/p PCI 11/2016 6. pleural effusion chronic likely from chornic fluid overload- s/p pleurex catheter placement 7. ICD- OPERATIONS INTERN-D fxn, normal on interrogation today, full report in chart. did lower blanking period with elevated HR to help increase OPERATIONS INTERN time. no events, VT /VF Impression: - normal device fxn, no VT/VF - con asa 81mg daily - cont plavix 75 mg daily, ok to hold for procedures - pt intolerant of bb/nitrate previously - cont losartan - cont statin - cont dialysis per renal Problems: Consultation Date/Type/Reason Admit Date/Time Sep 07, 2017 at 14:16 Initial Consult Date 09/10/17 Type of Consultation: Pulmonary Referring Provider: POP BOYCE MD Exam/Review of Systems Vital Signs Vitals Vital Signs Date Time Temp Pulse Resp B/P Pulse Ox O2 Delivery O2 Flow Rate FiO2 09/18/17 22:30 105 122/51 09/18/17 20:20 22 100 09/18/17 20:15 15.0 09/18/17 20:00 Simple Mask 09/18/17 20:00 98.4 09/18/17 16:00 50 Intake and Output 09/17/17 09/17/17 09/18/17 14:59 22:59 06:59 Intake Total 200 ml 300 ml Output Total 0 ml Balance 0 ml 200 ml 300 ml Results Result Diagram: 09/17/1781809/17/17818 Medications Medications Current Medications Allopurinol (Zyloprim) 100 mg DAILY PO Last administered on 09/18/17t 09:03; Admin Dose 100 MG; Start 09/08/17 at 09:00 Aspirin (Aspirin) 81 mg DAILY PO Last administered on 09/18/17 09:03; Admin Dose 81 MG; Start 09/08/17 at 09:00 Clopidogrel Bisulfate (plaVIX) 75 mg QHS PO Last administered on 09/13/17 21: 28; Admin Dose 75 MG; Start 09/07/17 at 21:00; Status Future Hold Losartan Potassium (Cozaar) 25 mg DAILY PO Last administered on 09/12/17 08: 43; Admin Dose 25 MG; Start 09/08/17 at 09:00 Ranolazine (Ranexa) 500 mg Q12 PO Last administered on 09/18/17 09:03; Admin Dose 500 MG; Start 09/07/17 at 21:00 Zolpidem Tartrate (Ambien) 7.5 mg QHS PRN PO INSOMNIA Last administered on 20:29; Admin Dose 7.5 MG; Start 09/07/17 at 15:30 Ondansetron HCl (Zofran Tab) 4 mg Q6H PRN PO NAUSEA AND/OR VOMITING Last administered on 09/15/17 05:15; Admin Dose 4 MG; Start 09/07/17 at 15:30 Ondansetron HCl (Zofran Inj) 4 mg Q6H PRN IV NAUSEA AND/OR VOMITING; Start at 15:30 Acetaminophen (Tylenol Tab) 650 mg Q6H PRN PO PAIN LEVEL 1-3 OR FEVER; Start 09/07/17 at 15:30 Acetaminophen/ Hydrocodone Bitart ([place] (5/325)) 1 tab Q6H PRN PO MODERATE PAIN LEVEL 4-6 Last administered on 09/18/17 10:05; Admin Dose 1 TAB; Start at 15:30 Docusate Sodium (Colace) 100 mg Q12H PRN PO CONSTIPATION Last administered on 09/18/17 09:03; Admin Dose 100 MG; Start 09/07/17 at 15:30 Bisacodyl (Dulcolax) 5 mg DAILY PRN PO CONSTIPATION Last administered on 09:03; Admin Dose 5 MG; Start 09/07/17 at 15:30 Bisacodyl (Dulcolax Supp) [address] [place] CONSTIPATION; Start 09/07/17 at 15:30 Ropinirole HCl (Requip) 1 mg Q6 PRN PO MUSCLE SPASMS Last administered on 09:03; Admin Dose 1 MG; Start 09/07/17 at 18:00 Heparin Sodium (Porcine) (Heparin (5000 Units/0.5 ml)) 5,000 unit BID SC Last administered on 09/13/17 08:52; Admin Dose 5,000 UNIT; Start 09/09/17 at 09: 00 Mupirocin (Bactroban) 1 applic BID TOP Last administered on 09/18/17 09:05; Admin Dose 1 APPLIC; Start 09/09/17 at 21:00 Alprazolam (Xanax) 0.25 mg Q6H PRN PO ANXIETY Last administered on 09/15/17 05:09; Admin Dose 0.25 MG; Start 09/12/17 at 10:15 Hydromorphone HCl (Dilaudid) 1 mg Q2H PRN IV severe pain Last administered on 09/18/17 17:02; Admin Dose 1 MG; Start 09/15/17 at 22:00 SUSANA VASQUEZ Sep 18, 2017 23:56
[2017-09-19] VITALS (12 sets, daily range): BP systolic 92–140; BP diastolic 47–66; PULSE 89–103; RESP 18–20
[2017-09-19] MEDS: HYDROmorphONE 1 MG/ML SYG IV PRN ×4 (00:36→21:02)
[2017-09-19] MEDS: PANTOPRAZOLE (EC) 40 MG TAB PO SCH (07:30)
[2017-09-19] MEDS: RANOLAZINE (SR) 500 MG TAB PO SCH ×2 (08:41→20:50)
[2017-09-19] MEDS: ASPIRIN 81 MG TAB PO SCH (08:41)
[2017-09-19] MEDS: ALLOPURINOL 100 MG TAB PO SCH (08:41)
[2017-09-19] MEDS: SEVELAMER 800 MG TAB PO SCH ×3 (08:41→18:14)
[2017-09-19] MEDS: LOSARTAN 25 MG TAB PO SCH ×2 (08:42→09:00)
[2017-09-19] MEDS: MUPIROCIN 2% 22 GM OINT TOP SCH ×2 (08:46→20:50)
[2017-09-19] MEDS: HEPARIN 5,000 UNIT/0.5 ML VIAL SC SCH ×2 (08:51→21:00)
--- NOTE | 2017-09-19 10:19 | CONS ---
Date/Time of Note Date/Time of Note DATE: 09/19/17 TIME: 10:16 Assessment/Plan Assessment/Plan Additional Assessment/Plan (1) Debility case managment working on dispo (2) SOB (shortness of breath) Comment: req high flow O2 w relief/ s/p pleurex/ appears euvolemic (3) ESRD (end stage renal disease) on dialysis Status: Chronic Comment: for HD today and q MWF. next hd thursday (4) Pleural effusion, left Status: Acute Comment: s/p drainage, w PleurX catheter in place for prn use/drainage... 5- Chronic anemia: epogen with hd 6- adanced CAD: cards following. no further intervention Consultation Date/Type/Reason Admit Date/Time Sep 07, 2017 at 14:16 Initial Consult Date 09/08/17 Type of Consultation: Pulmonary Referring Provider: POP BOYCE MD 24 HR Interval Summary Free Text/Dictation weak. some sob. no other issues Exam/Review of Systems Vital Signs Vitals Vital Signs Date Time Temp Pulse Resp B/P Pulse Ox O2 Delivery O2 Flow Rate FiO2 09/19/17 08:13 89 09/19/17 08:00 98.0 19 140/66 99 09/19/17 01:01 15.0 50 09/18/17 20:00 Simple Mask Intake and Output 09/18/17 09/18/17 09/19/17 15:00 23:00 07:00 Intake Total 1200 ml 250 ml Output Total 0 ml 6500 ml Balance 0 ml -5300 ml 250 ml Exam Constitutional: alert, frail Head: atraumatic, normocephalic Eyes: nl conjunctiva Neck: jvd, non-tender, supple Respiratory: clear to auscultation Cardiovascular: edema Gastrointestinal: bowel sounds, soft Results Result Diagram: 09/17/1781809/17/17818 Medications Medications Current Medications Allopurinol (Zyloprim) 100 mg DAILY PO Last administered on 09/19/17 08:41; Admin Dose 100 MG; Start 09/08/17 at 09:00 Aspirin (Aspirin) 81 mg DAILY PO Last administered on 09/19/17 08:41; Admin Dose 81 MG; Start 09/08/17 at 09:00 Clopidogrel Bisulfate (plaVIX) 75 mg QHS PO Last administered on 09/13/17 21: 28; Admin Dose 75 MG; Start 09/07/17 at 21:00; Status Future Hold Losartan Potassium (Cozaar) 25 mg DAILY PO Last administered on 09/12/17 08: 43; Admin Dose 25 MG; Start 09/08/17 at 09:00 Ranolazine (Ranexa) 500 mg Q12 PO Last administered on 09/19/17 08:41; Admin Dose 500 MG; Start 09/07/17 at 21:00 Zolpidem Tartrate (Ambien) 7.5 mg QHS PRN PO INSOMNIA Last administered on 20:29; Admin Dose 7.5 MG; Start 09/07/17 at 15:30 Ondansetron HCl (Zofran Tab) 4 mg Q6H PRN PO NAUSEA AND/OR VOMITING Last administered on 09/15/17 05:15; Admin Dose 4 MG; Start 09/07/17 at 15:30 Ondansetron HCl (Zofran Inj) 4 mg Q6H PRN IV NAUSEA AND/OR VOMITING; Start at 15:30 Acetaminophen (Tylenol Tab) 650 mg Q6H PRN PO PAIN LEVEL 1-3 OR FEVER; Start 09/07/17 at 15:30 Acetaminophen/ Hydrocodone Bitart ([place] (5/325)) 1 tab Q6H PRN PO MODERATE PAIN LEVEL 4-6 Last administered on 09/18/17 10:05; Admin Dose 1 TAB; Start at 15:30 Docusate Sodium (Colace) 100 mg Q12H PRN PO CONSTIPATION Last administered on 09/18/17 09:03; Admin Dose 100 MG; Start 09/07/17 at 15:30 Bisacodyl (Dulcolax) 5 mg DAILY PRN PO CONSTIPATION Last administered on 09:03; Admin Dose 5 MG; Start 09/07/17 at 15:30 Bisacodyl (Dulcolax Supp) 10 mg DAILY PRN [place] CONSTIPATION; Start 09/07/17 at 15:30 Ropinirole HCl (Requip) 1 mg Q6 PRN PO MUSCLE SPASMS Last administered on 09:03; Admin Dose 1 MG; Start 09/07/17 at 18:00 Heparin Sodium (Porcine) (Heparin (5000 Units/0.5 ml)) 5,000 unit BID SC Last administered on 09/13/17 08:52; Admin Dose 5,000 UNIT; Start 09/09/17 at 09: 00 Mupirocin (Bactroban) 1 applic BID TOP Last administered on 09/19/17 08:46; Admin Dose 1 APPLIC; Start 09/09/17 at 21:00 Alprazolam (Xanax) 0.25 mg Q6H PRN PO ANXIETY Last administered on 09/15/17 05:09; Admin Dose 0.25 MG; Start 09/12/17 at 10:15 Hydromorphone HCl (Dilaudid) 1 mg Q2H PRN IV severe pain Last administered on 09/19/17 00:36; Admin Dose 1 MG; Start 09/15/17 at 22:00 MARY LOU OVALLE MD Sep 19, 2017 10:19
--- NOTE | 2017-09-19 14:00 | CONS ---
Date/Time of Note Date/Time of Note DATE: 09/19/17 TIME: 13:57 Consult Date/Type/Reason Admit Date/Time Sep 07, 2017 at 14:16 Initial Consult Date 09/10/17 Type of Consultation: Pulmonary Ordering Provider: POP BOYCE MD Subjective Remains on high-flow FiO2. PleurX in place Left. Objective Vital Signs Date Time Temp Pulse Resp B/P Pulse Ox O2 Delivery O2 Flow Rate FiO2 09/19/17 12:08 97.5 90 18 92/47 94 09/19/17 01:01 15.0 50 09/18/17 20:00 Simple Mask Intake and Output 09/18/17 09/18/17 09/19/17 14:59 22:59 06:59 Intake Total 1200 ml 250 ml Output Total 0 ml 6500 ml Balance 0 ml -5300 ml 250 ml Exam HEENT: Neck supple; no JVD; no LAD CVS: paced, S1 and S2; 2/6 CHERYL CHEST: Decreased at bases ABD: Soft, NT, + BS EXT: No c/c; + edema Results/Medications Result Diagram: 09/17/1781809/17/17818 Medications Current Medications Allopurinol (Zyloprim) 100 mg DAILY PO Last administered on 09/19/17 08:41; Admin Dose 100 MG; Start 09/08/17 at 09:00 Aspirin (Aspirin) 81 mg DAILY PO Last administered on 09/19/17 08:41; Admin Dose 81 MG; Start 09/08/17 at 09:00 Clopidogrel Bisulfate (plaVIX) 75 mg QHS PO Last administered on 09/13/17 21: 28; Admin Dose 75 MG; Start 09/07/17 at 21:00; Status Future Hold Losartan Potassium (Cozaar) 25 mg DAILY PO Last administered on 09/12/17 08: 43; Admin Dose 25 MG; Start 09/08/17 at 09:00 Ranolazine (Ranexa) 500 mg Q12 PO Last administered on 09/19/17 08:41; Admin Dose 500 MG; Start 09/07/17 at 21:00 Zolpidem Tartrate (Ambien) 7.5 mg QHS PRN PO INSOMNIA Last administered on 20:29; Admin Dose 7.5 MG; Start 09/07/17 at 15:30 Ondansetron HCl (Zofran Tab) 4 mg Q6H PRN PO NAUSEA AND/OR VOMITING Last administered on 09/15/17 05:15; Admin Dose 4 MG; Start 09/07/17 at 15:30 Ondansetron HCl (Zofran Inj) 4 mg Q6H PRN IV NAUSEA AND/OR VOMITING; Start at 15:30 Acetaminophen (Tylenol Tab) 650 mg Q6H PRN PO PAIN LEVEL 1-3 OR FEVER; Start 09/07/17 at 15:30 Acetaminophen/ Hydrocodone Bitart ([place] (5/325)) 1 tab Q6H PRN PO MODERATE PAIN LEVEL 4-6 Last administered on 09/18/17 10:05; Admin Dose 1 TAB; Start at 15:30 Docusate Sodium (Colace) 100 mg Q12H PRN PO CONSTIPATION Last administered on 09/18/17 09:03; Admin Dose 100 MG; Start 09/07/17 at 15:30 Bisacodyl (Dulcolax) 5 mg DAILY PRN PO CONSTIPATION Last administered on 09:03; Admin Dose 5 MG; Start 09/07/17 at 15:30 Bisacodyl (Dulcolax Supp) 10 mg DAILY PRN [place] CONSTIPATION; Start 09/07/17 at 15:30 Ropinirole HCl (Requip) 1 mg Q6 PRN PO MUSCLE SPASMS Last administered on 09:03; Admin Dose 1 MG; Start 09/07/17 at 18:00 Heparin Sodium (Porcine) (Heparin (5000 Units/0.5 ml)) 5,000 unit BID SC Last administered on 09/13/17 08:52; Admin Dose 5,000 UNIT; Start 09/09/17 at 09: 00 Mupirocin (Bactroban) 1 applic BID TOP Last administered on 09/19/17 08:46; Admin Dose 1 APPLIC; Start 09/09/17 at 21:00 Alprazolam (Xanax) 0.25 mg Q6H PRN PO ANXIETY Last administered on 09/15/17 05:09; Admin Dose 0.25 MG; Start 09/12/17 at 10:15 Hydromorphone HCl (Dilaudid) 1 mg Q2H PRN IV severe pain Last administered on 09/19/17t 13:10; Admin Dose 1 MG; Start 09/15/17 at 22:00 Assessment/Plan Additional Assessment/Plan IMP: 1. End-stage renal failure on hemodialysis 2. Recurrent pleural effusion. Requiring frequent thoracentesis. 3. Cardiomyopathy 4. Hypoxemic respiratory failure secondary to above RECS: 1. Continue hemodialysis with UF 2. Status post Pleurx catheter, continue daily drainage 3. Titrate FiO2 as tolerated 4. TINA CARLISLE MD Sep 19, 2017 14:00
[2017-09-19] MEDS ORDERED: PENDING SANTYL ORDER FOR WOUND CARE XX PRN (15:00)
[2017-09-19] MEDS: ROPINIROLE 0.25 MG TAB PO PRN (18:17)
[2017-09-19] MEDS: DOCUSATE SODIUM 100 MG CAP PO PRN (18:21)
[2017-09-19] MEDS: BISACODYL (EC) 5 MG TAB PO PRN (18:23)
[2017-09-20] VITALS (11 sets, daily range): BP systolic 102–115; BP diastolic 45–67; PULSE 78–97; RESP 19–20
[2017-09-20] MEDS: HYDROmorphONE 1 MG/ML SYG IV PRN ×4 (00:36→23:03)
[2017-09-20] MEDS: HYDROCODONE/APAP (5/325) TAB PO PRN ×2 (03:52→20:41)
[2017-09-20 05:58] LABS: BASOPHILS % 0.5 % (0.0-2.0); EOSINOPHILS # 0.2 10^3/ul (0.0-0.5); EOSINOPHILS % 3.3 % (0.0-7.0); HEMATOCRIT 35.1 % (42.0-52.0); HEMOGLOBIN 10.9 g/dl (14.0-18.0); LYMPHOCYTES # 1.5 10^3/ul (0.8-2.9); LYMPHOCYTES % 25.5 % (15.0-51.0); MEAN CORPUSCULAR HEMOGLOBIN 29.4 pg (29.0-33.0); MEAN CORPUSCULAR HGB CONC 31.1 g/dl (32.0-37.0); MEAN CORPUSCULAR VOLUME 94.6 fl (82.0-101.0); MEAN PLATELET VOLUME 9.9 fl (7.4-10.4); MONOCYTE # 0.4 10^3/ul (0.3-0.9); MONOCYTES % 7.7 % (0.0-11.0); NEUTROPHIL # 3.6 10^3/ul (1.6-7.5); NEUTROPHILS % 62.6 % (39.0-77.0); PLATELET COUNT 199 10^3/UL (140-415); RED BLOOD COUNT 3.71 10^6/ul (4.70-6.10); WHITE BLOOD COUNT 5.7 10^3/ul (4.8-10.8)
[2017-09-20 06:40] LABS: ALBUMIN 3.5 g/dl (3.3-4.9); ALBUMIN/GLOBULIN RATIO 1.06; CALCIUM 9.5 mg/dl (8.4-10.2); CREATININE 6.72 mg/dl (0.61-1.24); POTASSIUM 4.3 mmol/L (3.5-5.1); TOTAL PROTEIN 6.8 g/dl (6.1-8.1)
[2017-09-20] MEDS: PANTOPRAZOLE (EC) 40 MG TAB PO SCH (08:00)
[2017-09-20] MEDS: ASPIRIN 81 MG TAB PO SCH (08:00)
[2017-09-20] MEDS: BISACODYL (EC) 5 MG TAB PO PRN ×2 (08:00→18:41)
[2017-09-20] MEDS: RANOLAZINE (SR) 500 MG TAB PO SCH ×2 (08:01→20:40)
[2017-09-20] MEDS: SEVELAMER 800 MG TAB PO SCH ×3 (08:01→17:13)
[2017-09-20] MEDS: DOCUSATE SODIUM 100 MG CAP PO PRN ×2 (08:01→18:41)
[2017-09-20] MEDS: ONDANSETRON 4 MG INJ IV PRN (08:01)
[2017-09-20] MEDS: ROPINIROLE 0.25 MG TAB PO PRN (08:01)
[2017-09-20] MEDS: MUPIROCIN 2% 22 GM OINT TOP SCH ×2 (08:02→21:30)
[2017-09-20] MEDS: HEPARIN 5,000 UNIT/0.5 ML VIAL SC SCH ×2 (08:04→21:00)
[2017-09-20] MEDS: LOSARTAN 25 MG TAB PO SCH (08:04)
[2017-09-20] MEDS: ALLOPURINOL 100 MG TAB PO SCH (08:20)
--- NOTE | 2017-09-20 08:40 | RADRPT ---
PROCEDURE: XR Chest. CLINICAL INDICATION: Left pleural effusion TECHNIQUE: Frontal chest x-ray was obtained. COMPARISON: Chest x-ray September 17 FINDINGS: Again noted is the AICD device. There is cardiomegaly. Calcification is seen in the wall of the aorta. No hilar mass is present. The re is hazy infiltrate throughout the right lung. No left lung infiltrate is seen. There is no effusi on or pneumothorax. IMPRESSION: Interval development hazy left lung infiltrate. Cardiomegaly. .Lawrence Cook MD, MD Date Time Electronically viewed and signed by .Lawrence Cook MD, MD on 09/20/2017 08:39 .A/
[2017-09-20] MEDS: ALBUTEROL/IPRATROPIUM (NEB) 3 ML AMP HHN PRN (09:54)
--- NOTE | 2017-09-20 13:54 | CONS ---
Date/Time of Note Date/Time of Note DATE: 09/20/17 TIME: 13:53 Consult Date/Type/Reason Admit Date/Time Sep 07, 2017 at 14:16 Initial Consult Date 09/10/17 Type of Consultation: Pulmonary Ordering Provider: POP BOYCE MD Subjective c/o increased dyspnea. No output from PleurX Objective Vital Signs Date Time Temp Pulse Resp B/P Pulse Ox O2 Delivery O2 Flow Rate FiO2 09/20/17 12:13 81 09/20/17 12:00 97.9 20 110/67 99 09/20/17 10:09 Venti Mask 15.0 50 Intake and Output 09/19/17 09/19/17 09/20/17 14:59 22:59 06:59 Intake Total 300 ml Balance 300 ml Exam HEENT: Neck supple; no JVD; no LAD CVS: paced, S1 and S2; 2/6 CHERYL CHEST: Decreased at bases ABD: Soft, NT, + BS EXT: No c/c; + edema Results/Medications Result Diagram: 09/20/17 0538 09/20/17 0537 Results 24 hrs Laboratory Tests Test 09/20/17 05:37 09/20/17 05:38 Sodium Level 141 Potassium Level 4.3 Chloride Level 96 L Carbon Dioxide Level 28 Anion Gap 21 H Blood Urea Nitrogen 50 H Creatinine 6.72 H Glucose Level 88 Calcium Level 9.5 Total Bilirubin 0.0 L Direct Bilirubin 0.00 Indirect Bilirubin 0.0 Aspartate Amino Transf (AST/SGOT) 22 Alanine Aminotransferase (ALT/SGPT) 20 Alkaline Phosphatase 215 H Total Protein 6.8 Albumin 3.5 Globulin 3.30 H Albumin/Globulin Ratio 1.06 White Blood Count 5.7 # Red Blood Count 3.71 L Hemoglobin 10.9 L Hematocrit 35.1 L Mean Corpuscular Volume 94.6 Mean Corpuscular Hemoglobin 29.4 Mean Corpuscular Hemoglobin Concent 31.1 L Red Cell Distribution Width 16.0 H Platelet Count 199 Mean Platelet Volume 9.9 Neutrophils % 62.6 Lymphocytes % 25.5 Monocytes % 7.7 Eosinophils % 3.3 Basophils % 0.5 Nucleated Red Blood Cells % 0.0 Neutrophils # 3.6 Lymphocytes # 1.5 Monocytes # 0.4 Eosinophils # 0.2 Basophils # 0.0 Nucleated Red Blood Cells # 0.0 Medications Current Medications Allopurinol (Zyloprim) 100 mg DAILY PO Last administered on 09/20/17 08:20; Admin Dose 100 MG; Start 09/08/17 at 09:00 Aspirin (Aspirin) 81 mg DAILY PO Last administered on 09/20/17 08:00; Admin Dose 81 MG; Start 09/08/17 at 09:00 Clopidogrel Bisulfate (plaVIX) 75 mg QHS PO Last administered on 09/13/17 21: 28; Admin Dose 75 MG; Start 09/07/17 at 21:00; Status Future Hold Losartan Potassium (Cozaar) 25 mg DAILY PO Last administered on 09/12/17 08: 43; Admin Dose 25 MG; Start 09/08/17 at 09:00 Ranolazine (Ranexa) 500 mg Q12 PO Last administered on 09/20/17 08:01; Admin Dose 500 MG; Start 09/07/17 at 21:00 Zolpidem Tartrate (Ambien) 7.5 mg QHS PRN PO INSOMNIA Last administered on 20:29; Admin Dose 7.5 MG; Start 09/07/17 at 15:30 Ondansetron HCl (Zofran Tab) 4 mg Q6H PRN PO NAUSEA AND/OR VOMITING Last administered on 09/15/17 05:15; Admin Dose 4 MG; Start 09/07/17 at 15:30 Ondansetron HCl (Zofran Inj) 4 mg Q6H PRN IV NAUSEA AND/OR VOMITING Last administered on 09/20/17 08:01; Admin Dose 4 MG; Start 09/07/17 at 15:30 Acetaminophen (Tylenol Tab) 650 mg Q6H PRN PO PAIN LEVEL 1-3 OR FEVER; Start 09/07/17 at 15:30 Acetaminophen/ Hydrocodone Bitart ([place] (5/325)) 1 tab Q6H PRN PO MODERATE PAIN LEVEL 4-6 Last administered on 09/20/17 03:52; Admin Dose 1 TAB; Start at 15:30 Docusate Sodium (Colace) 100 mg Q12H PRN PO CONSTIPATION Last administered on 09/20/17 08:01; Admin Dose 100 MG; Start 09/07/17 at 15:30 Bisacodyl (Dulcolax) 5 mg DAILY PRN PO CONSTIPATION Last administered on 08:00; Admin Dose 5 MG; Start 09/07/17 at 15:30 Bisacodyl (Dulcolax Supp) 10 mg DAILY PRN [place] CONSTIPATION; Start 09/07/17 at 15:30 Ropinirole HCl (Requip) 1 mg Q6 PRN PO MUSCLE SPASMS Last administered on 08:01; Admin Dose 1 MG; Start 09/07/17 at 18:00 Heparin Sodium (Porcine) (Heparin (5000 Units/0.5 ml)) 5,000 unit BID SC Last administered on 09/13/17 08:52; Admin Dose 5,000 UNIT; Start 09/09/17 at 09: 00 Mupirocin (Bactroban) 1 applic BID TOP Last administered on 09/20/17 08:02; Admin Dose 1 APPLIC; Start 09/09/17 at 21:00 Alprazolam (Xanax) 0.25 mg Q6H PRN PO ANXIETY Last administered on 09/15/17 05:09; Admin Dose 0.25 MG; Start 09/12/17 at 10:15 Hydromorphone HCl (Dilaudid) 1 mg Q2H PRN IV severe pain Last administered on 09/20/17 00:36; Admin Dose 1 MG; Start 09/15/17 at 22:00 Miscellaneous Information (Pending [facility] Order For Wound Care) This patient anthony... PRN PRN XX WOUND CARE; Start 09/19/17 at 15:00 Assessment/Plan Additional Assessment/Plan IMP: 1. Hypoxemic respiratory failure secondary to above 2. Recurrent pleural effusion. Requiring frequent thoracentesis. 3. Cardiomyopathy 4. ERSD on HD RECS: 1. Continue hemodialysis with UF 2. No output from pleurX 3. Stat CXR; patient refused ABG TINA CARLISLE MD Sep 20, 2017 13:54
--- NOTE | 2017-09-20 14:47 | CONS ---
Date/Time of Note Date/Time of Note DATE: 09/20/17 TIME: 14:44 Assessment/Plan Assessment/Plan Additional Assessment/Plan * Debility:case managment working on dispo * SOB (shortness of breath)Comment: req high flow O2 w relief/ s/p pleurex now with no drainage and cxr requested by pulm for eval/ appears euvolemic * ESRD (end stage renal disease) on dialysis: hd in am and q m/w/f * Pleural effusion, left: s/p pleurex. no output and hazy infiltrate on cxr yesterday. cxr requested by pulm * Chronic anemia: epogen with hd * advanced CAD: cards following. no further intervention Consultation Date/Type/Reason Admit Date/Time Sep 07, 2017 at 14:16 Initial Consult Date 09/08/17 Type of Consultation: Pulmonary Referring Provider: POP BOYCE MD 24 HR Interval Summary Free Text/Dictation feels fair. very weak. denies sob Exam/Review of Systems Vital Signs Vitals Vital Signs Date Time Temp Pulse Resp B/P Pulse Ox O2 Delivery O2 Flow Rate FiO2 09/20/17 12:13 81 09/20/17 12:00 97.9 20 110/67 99 09/20/17 10:09 Venti Mask 15.0 50 Intake and Output 09/19/17 09/19/17 09/20/17 15:00 23:00 07:00 Intake Total 300 ml Balance 300 ml Exam Constitutional: alert, frail Psych: no complaints Head: normocephalic Neck: non-tender, supple Respiratory: clear to auscultation, diminished breath sounds Cardiovascular: edema, nl pulses, regular rate and rhythm Gastrointestinal: non-tender, soft Results Result Diagram: 09/20/17 0538 09/20/17 0537 Results 24 hrs Laboratory Tests Test 09/20/17 05:37 09/20/17 05:38 Sodium Level 141 Potassium Level 4.3 Chloride Level 96 L Carbon Dioxide Level 28 Anion Gap 21 H Blood Urea Nitrogen 50 H Creatinine 6.72 H Glucose Level 88 Calcium Level 9.5 Total Bilirubin 0.0 L Direct Bilirubin 0.00 Indirect Bilirubin 0.0 Aspartate Amino Transf (AST/SGOT) 22 Alanine Aminotransferase (ALT/SGPT) 20 Alkaline Phosphatase 215 H Total Protein 6.8 Albumin 3.5 Globulin 3.30 H Albumin/Globulin Ratio 1.06 White Blood Count 5.7 # Red Blood Count 3.71 L Hemoglobin 10.9 L Hematocrit 35.1 L Mean Corpuscular Volume 94.6 Mean Corpuscular Hemoglobin 29.4 Mean Corpuscular Hemoglobin Concent 31.1 L Red Cell Distribution Width 16.0 H Platelet Count 199 Mean Platelet Volume 9.9 Neutrophils % 62.6 Lymphocytes % 25.5 Monocytes % 7.7 Eosinophils % 3.3 Basophils % 0.5 Nucleated Red Blood Cells % 0.0 Neutrophils # 3.6 Lymphocytes # 1.5 Monocytes # 0.4 Eosinophils # 0.2 Basophils # 0.0 Nucleated Red Blood Cells # 0.0 Medications Medications Current Medications Allopurinol (Zyloprim) 100 mg DAILY PO Last administered on 09/20/17 08:20; Admin Dose 100 MG; Start 09/08/17 at 09:00 Aspirin (Aspirin) 81 mg DAILY PO Last administered on 09/20/17 08:00; Admin Dose 81 MG; Start 09/08/17 at 09:00 Clopidogrel Bisulfate (plaVIX) 75 mg QHS PO Last administered on 09/13/17 21: 28; Admin Dose 75 MG; Start 09/07/17 at 21:00; Status Future Hold Losartan Potassium (Cozaar) 25 mg DAILY PO Last administered on 09/12/17 08: 43; Admin Dose 25 MG; Start 09/08/17 at 09:00 Ranolazine (Ranexa) 500 mg Q12 PO Last administered on 09/20/17 08:01; Admin Dose 500 MG; Start 09/07/17 at 21:00 Zolpidem Tartrate (Ambien) 7.5 mg QHS PRN PO INSOMNIA Last administered on 20:29; Admin Dose 7.5 MG; Start 09/07/17 at 15:30 Ondansetron HCl (Zofran Tab) 4 mg Q6H PRN PO NAUSEA AND/OR VOMITING Last administered on 09/15/17 05:15; Admin Dose 4 MG; Start 09/07/17 at 15:30 Ondansetron HCl (Zofran Inj) 4 mg Q6H PRN IV NAUSEA AND/OR VOMITING Last administered on 09/20/17 08:01; Admin Dose 4 MG; Start 09/07/17 at 15:30 Acetaminophen (Tylenol Tab) 650 mg Q6H PRN PO PAIN LEVEL 1-3 OR FEVER; Start 09/07/17 at 15:30 Acetaminophen/ Hydrocodone Bitart ([place] (5/325)) 1 tab Q6H PRN PO MODERATE PAIN LEVEL 4-6 Last administered on 09/20/17 03:52; Admin Dose 1 TAB; Start at 15:30 Docusate Sodium (Colace) 100 mg Q12H PRN PO CONSTIPATION Last administered on 09/20/17 08:01; Admin Dose 100 MG; Start 09/07/17 at 15:30 Bisacodyl (Dulcolax) 5 mg DAILY PRN PO CONSTIPATION Last administered on 08:00; Admin Dose 5 MG; Start 09/07/17 at 15:30 Bisacodyl (Dulcolax Supp) 10 mg DAILY PRN [place] CONSTIPATION; Start 09/07/17 at 15:30 Ropinirole HCl (Requip) 1 mg Q6 PRN PO MUSCLE SPASMS Last administered on 08:01; Admin Dose 1 MG; Start 09/07/17 at 18:00 Heparin Sodium (Porcine) (Heparin (5000 Units/0.5 ml)) 5,000 unit BID SC Last administered on 09/13/17 08:52; Admin Dose 5,000 UNIT; Start 09/09/17 at 09: 00 Mupirocin (Bactroban) 1 applic BID TOP Last administered on 09/20/17 08:02; Admin Dose 1 APPLIC; Start 09/09/17 at 21:00 Alprazolam (Xanax) 0.25 mg Q6H PRN PO ANXIETY Last administered on 09/15/17 05:09; Admin Dose 0.25 MG; Start 09/12/17 at 10:15 Hydromorphone HCl (Dilaudid) 1 mg Q2H PRN IV severe pain Last administered on 09/20/17 14:37; Admin Dose 1 MG; Start 09/15/17 at 22:00 Miscellaneous Information (Pending Santyl Order For Wound Care) This patient anthony... PRN PRN XX WOUND CARE; Start 09/19/17 at 15:00 MARY LOU OVALLE MD Sep 20, 2017 14:47
--- NOTE | 2017-09-20 16:09 | RADRPT ---
PROCEDURE: X-ray Chest. CLINICAL INDICATION: Dyspnea. TECHNIQUE: Single view chest x-ray. COMPARISON: Exam dated 09/19/2017. FINDINGS: There is a right-sided pacemaker defibrillator in place. There are atherosclerotic changes of the aorta. The cardiomediastinal silhouette remains enlarged. There is diffuse prominence of th e interstitium without focal consolidation, effusion, or pneumothorax. There are no acute osseous a bnormalities. IMPRESSION: 1. Cardiomegaly with findings suggestive of mild hydrostatic edema. Correlate clinically for CHF. 2. Vascular calcifications consistent with atherosclerosis. RPTAT: HLBP .Jose Mckeon MD, MD Date Time Electronically viewed and signed by .Jose Mckeon MD, on 09/20/2017 16:08 .P/
[2017-09-20] MEDS ORDERED: POLYETHYLENE GLYCOL 17 GM PACKET PO ONE (16:30)
[2017-09-21] VITALS (21 sets, daily range): BP systolic 88–140; BP diastolic 47–77; PULSE 77–90; RESP 18–19
[2017-09-21] MEDS: HYDROmorphONE 1 MG/ML SYG IV PRN ×2 (03:13→20:31)
[2017-09-21] MEDS: PANTOPRAZOLE (EC) 40 MG TAB PO SCH (06:01)
[2017-09-21] MEDS: HYDROCODONE/APAP (5/325) TAB PO PRN ×2 (06:11→16:11)
--- NOTE | 2017-09-21 07:57 | CONS ---
Date/Time of Note Date/Time of Note DATE: 09/21/17 TIME: 07:55 Assessment/Plan Assessment/Plan Problems: (1) Pleural effusion, left Status: Acute Comment: stable...pleurX in place (2) ESRD (end stage renal disease) on dialysis Status: Chronic Comment: for HD today (3) SOB (shortness of breath) Comment: worse...to be resolved post HD hopefully (4) HTN (hypertension) Comment: controlled Consultation Date/Type/Reason Admit Date/Time Sep 07, 2017 at 14:16 Type of Consultation: neph Referring Provider: POP BOYCE MD 24 HR Interval Summary Free Text/Dictation getting a bit stronger Exam/Review of Systems Vital Signs Vitals Vital Signs Date Time Temp Pulse Resp B/P Pulse Ox O2 Delivery O2 Flow Rate FiO2 09/21/17 04:28 84 09/21/17 04:22 97.8 19 115/58 98 09/20/17 23:46 15.0 09/20/17 20:00 Venti Mask 09/20/17 16:13 50 Intake and Output 09/20/17 09/20/17 09/21/17 15:00 23:00 07:00 Intake Total 300 ml Balance 300 ml Exam Constitutional: oriented Neck: supple Respiratory: clear to auscultation Cardiovascular: nl pulses, regular rate and rhythm Gastrointestinal: nl liver, spleen, soft Extremities: normal pulses (fxn avf lue) Results Result Diagram: 09/20/17 0538 09/20/17 0537 Results 24 hrs Laboratory Tests Test 09/20/17 14:05 Blood Gas Specimen Source Blood arterial Arterial Blood Date Drawn 09/20/2017 2:55:07 PM Arterial Blood pH (Temp corrected) 7.419 Arterial Blood pCO2 (Temp correct) 35.3 Arterial Blood HCO3 22.3 Arterial Blood Base Excess -1.7 Arterial Blood Oxygen Saturation 98.7 H Semaj Test ACCEPTAB Arterial Blood Gas Puncture Site Right Radial Arterial Blood Carboxyhemoglobin 0.6 Arterial Blood Methemoglobin 0.3 Oxyhemoglobin Percent 97.8 Total Hemoglobin 11.3 L Blood Gas Temperature 37.0 Blood Gas Modality MASK - VENTI FiO2 50.0 Blood Gas Notified Whom [place] Blood Gas Notified Time 09/20/2017 3:03:08 PM Medications Medications Current Medications Allopurinol (Zyloprim) 100 mg DAILY PO Last administered on 09/20/17 08:20; Admin Dose 100 MG; Start 09/08/17 at 09:00 Aspirin (Aspirin) 81 mg DAILY PO Last administered on 09/20/17 08:00; Admin Dose 81 MG; Start 09/08/17 at 09:00 Clopidogrel Bisulfate (plaVIX) 75 mg QHS PO Last administered on 09/13/17 21: 28; Admin Dose 75 MG; Start 09/07/17 at 21:00; Status Future Hold Losartan Potassium (Cozaar) 25 mg DAILY PO Last administered on 09/12/17 08: 43; Admin Dose 25 MG; Start 09/08/17 at 09:00 Ranolazine (Ranexa) 500 mg Q12 PO Last administered on 09/20/17 20:40; Admin Dose 500 MG; Start 09/07/17 at 21:00 Zolpidem Tartrate (Ambien) 7.5 mg QHS PRN PO INSOMNIA Last administered on 20:29; Admin Dose 7.5 MG; Start 09/07/17 at 15:30 Ondansetron HCl (Zofran Tab) 4 mg Q6H PRN PO NAUSEA AND/OR VOMITING Last administered on 09/15/17 05:15; Admin Dose 4 MG; Start 09/07/17 at 15:30 Ondansetron HCl (Zofran Inj) 4 mg Q6H PRN IV NAUSEA AND/OR VOMITING Last administered on 09/20/17 08:01; Admin Dose 4 MG; Start 09/07/17 at 15:30 Acetaminophen (Tylenol Tab) 650 mg Q6H PRN PO PAIN LEVEL 1-3 OR FEVER; Start 09/07/17 at 15:30 Acetaminophen/ Hydrocodone Bitart ([place] (5/325)) 1 tab Q6H PRN PO MODERATE PAIN LEVEL 4-6 Last administered on 09/21/17 06:11; Admin Dose 1 TAB; Start at 15:30 Docusate Sodium (Colace) 100 mg Q12H PRN PO CONSTIPATION Last administered on 09/20/17 18:41; Admin Dose 100 MG; Start 09/07/17 at 15:30 Bisacodyl (Dulcolax) 5 mg DAILY PRN PO CONSTIPATION Last administered on 18:41; Admin Dose 5 MG; Start 09/07/17 at 15:30 Bisacodyl (Dulcolax Supp) 10 mg DAILY PRN [place] CONSTIPATION; Start 09/07/17 at 15:30 Ropinirole HCl (Requip) 1 mg Q6 PRN PO MUSCLE SPASMS Last administered on 08:01; Admin Dose 1 MG; Start 09/07/17 at 18:00 Heparin Sodium (Porcine) (Heparin (5000 Units/0.5 ml)) 5,000 unit BID SC Last administered on 09/13/17 08:52; Admin Dose 5,000 UNIT; Start 09/09/17 at 09: 00 Mupirocin (Bactroban) 1 applic BID TOP Last administered on 09/20/17 21:30; Admin Dose 1 APPLIC; Start 09/09/17 at 21:00 Alprazolam (Xanax) 0.25 mg Q6H PRN PO ANXIETY Last administered on 09/15/17 05:09; Admin Dose 0.25 MG; Start 09/12/17 at 10:15 Hydromorphone HCl (Dilaudid) 1 mg Q2H PRN IV severe pain Last administered on 09/21/17 03:13; Admin Dose 1 MG; Start 09/15/17 at 22:00 Miscellaneous Information (Pending Santyl Order For Wound Care) This patient anthony... PRN PRN XX WOUND CARE; Start 09/19/17 at 15:00 POP BOYCE MD Sep 21, 2017 07:57
[2017-09-21] MEDS: ASPIRIN 81 MG TAB PO SCH (08:49)
[2017-09-21] MEDS: RANOLAZINE (SR) 500 MG TAB PO SCH ×2 (08:49→20:31)
[2017-09-21] MEDS: SEVELAMER 800 MG TAB PO SCH ×3 (08:49→18:05)
[2017-09-21] MEDS: ALLOPURINOL 100 MG TAB PO SCH (08:49)
[2017-09-21] MEDS: HEPARIN 5,000 UNIT/0.5 ML VIAL SC SCH ×2 (08:52→20:32)
[2017-09-21] MEDS: LOSARTAN 25 MG TAB PO SCH (08:53)
[2017-09-21] MEDS: MUPIROCIN 2% 22 GM OINT TOP SCH ×2 (08:53→20:31)
[2017-09-21] MEDS: BISACODYL (EC) 5 MG TAB PO PRN (09:00)
[2017-09-21] MEDS: DOCUSATE SODIUM 100 MG CAP PO PRN (09:00)
--- NOTE | 2017-09-21 10:26 | CONS ---
Date/Time of Note Date/Time of Note DATE: 09/21/17 TIME: 10:25 Assessment/Plan Assessment/Plan Additional Assessment/Plan Assessment and recommendations; 1. Patient admitted with shortness of breath due to recurrent left pleural effusion status post multiple thoracentesis ultimately requiring left Pleurx catheter with marked radiological improvement. 2. History of chronic anemia. 3. History of end-stage renal disease, on hemodialysis. 4. Chronic hypoxemia. Continue current treatment. Consider discharge. Consultation Date/Type/Reason Admit Date/Time Sep 07, 2017 at 14:16 Initial Consult Date 09/08/17 Type of Consultation: Pulmonary Referring Provider: POP BOYCE MD 24 HR Interval Summary Free Text/Dictation Patient's condition is stable. Still requiring supplemental oxygen for O2 saturation maintenance. General exam; elderly male, awake and alert. Currently in no distress. Exam/Review of Systems Vital Signs Vitals Vital Signs Date Time Temp Pulse Resp B/P Pulse Ox O2 Delivery O2 Flow Rate FiO2 09/21/17 08:10 98.1 91 19 128/60 100 09/20/17 23:46 15.0 09/20/17 20:00 Venti Mask 09/20/17 16:13 50 Intake and Output 09/20/17 09/20/17 09/21/17 15:00 23:00 07:00 Intake Total 300 ml Balance 300 ml Exam HEENT exam; supple neck, positive JVD. No lymphadenopathy. Midline trachea. No thyromegaly. Patient has a multiple carious teeth. Chest exam; clear to auscultation. Pleurx catheter in place on the left side. S1-S2 audible, no murmurs. Regular rhythm. Abdomen exam; soft, nontender. No organomegaly. Bowel sounds audible. Extremity exam; no edema. [employer] exam; no focal deficit. Results Result Diagram: 09/20/17 0538 09/20/17 0537 Results 24 hrs Laboratory Tests Test 09/20/17 14:05 Blood Gas Specimen Source Blood arterial Arterial Blood Date Drawn 09/20/2017 2:55:07 PM Arterial Blood pH (Temp corrected) 7.419 Arterial Blood pCO2 (Temp correct) 35.3 Arterial Blood HCO3 22.3 Arterial Blood Base Excess -1.7 Arterial Blood Oxygen Saturation 98.7 H Semaj Test ACCEPTAB Arterial Blood Gas Puncture Site Right Radial Arterial Blood Carboxyhemoglobin 0.6 Arterial Blood Methemoglobin 0.3 Oxyhemoglobin Percent 97.8 Total Hemoglobin 11.3 L Blood Gas Temperature 37.0 Blood Gas Modality MASK - VENTI FiO2 50.0 Blood Gas Notified Whom [place] Blood Gas Notified Time 09/20/2017 3:03:08 PM Medications Medications Current Medications Allopurinol (Zyloprim) 100 mg DAILY PO Last administered on 09/21/17 08:49; Admin Dose 100 MG; Start 09/08/17 at 09:00 Aspirin (Aspirin) 81 mg DAILY PO Last administered on 09/21/17 08:49; Admin Dose 81 MG; Start 09/08/17 at 09:00 Clopidogrel Bisulfate (plaVIX) 75 mg QHS PO Last administered on 09/13/17 21: 28; Admin Dose 75 MG; Start 09/07/17 at 21:00; Status Future Hold Losartan Potassium (Cozaar) 25 mg DAILY PO Last administered on 09/12/17 08: 43; Admin Dose 25 MG; Start 09/08/17 at 09:00 Ranolazine (Ranexa) 500 mg Q12 PO Last administered on 09/21/17 08:49; Admin Dose 500 MG; Start 09/07/17 at 21:00 Zolpidem Tartrate (Ambien) 7.5 mg QHS PRN PO INSOMNIA Last administered on 20:29; Admin Dose 7.5 MG; Start 09/07/17 at 15:30 Ondansetron HCl (Zofran Tab) 4 mg Q6H PRN PO NAUSEA AND/OR VOMITING Last administered on 09/15/17 05:15; Admin Dose 4 MG; Start 09/07/17 at 15:30 Ondansetron HCl (Zofran Inj) 4 mg Q6H PRN IV NAUSEA AND/OR VOMITING Last administered on 09/20/17 08:01; Admin Dose 4 MG; Start 09/07/17 at 15:30 Acetaminophen (Tylenol Tab) 650 mg Q6H PRN PO PAIN LEVEL 1-3 OR FEVER; Start 09/07/17 at 15:30 Acetaminophen/ Hydrocodone Bitart ([place] (5/325)) 1 tab Q6H PRN PO MODERATE PAIN LEVEL 4-6 Last administered on 09/21/17 06:11; Admin Dose 1 TAB; Start at 15:30 Docusate Sodium (Colace) 100 mg Q12H PRN PO CONSTIPATION Last administered on 09/21/17 09:00; Admin Dose 100 MG; Start 09/07/17 at 15:30 Bisacodyl (Dulcolax) 5 mg DAILY PRN PO CONSTIPATION Last administered on 09:00; Admin Dose 5 MG; Start 09/07/17 at 15:30 Bisacodyl (Dulcolax Supp) 10 mg DAILY PRN [place] CONSTIPATION; Start 09/07/17 at 15:30 Ropinirole HCl (Requip) 1 mg Q6 PRN PO MUSCLE SPASMS Last administered on 08:01; Admin Dose 1 MG; Start 09/07/17 at 18:00 Heparin Sodium (Porcine) (Heparin (5000 Units/0.5 ml)) 5,000 unit BID SC Last administered on 09/13/17 08:52; Admin Dose 5,000 UNIT; Start 09/09/17 at 09: 00 Mupirocin (Bactroban) 1 applic BID TOP Last administered on 09/21/17 08:53; Admin Dose 1 APPLIC; Start 09/09/17 at 21:00 Alprazolam (Xanax) 0.25 mg Q6H PRN PO ANXIETY Last administered on 09/15/17 05:09; Admin Dose 0.25 MG; Start 09/12/17 at 10:15 Hydromorphone HCl (Dilaudid) 1 mg Q2H PRN IV severe pain Last administered on 09/21/17 03:13; Admin Dose 1 MG; Start 09/15/17 at 22:00 Miscellaneous Information (Pending Santyl Order For Wound Care) This patient anthony... PRN PRN XX WOUND CARE; Start 09/19/17 at 15:00 YUSUF FLAHERTY Sep 21, 2017 10:26
[2017-09-21] MEDS: ALBUTEROL/IPRATROPIUM (NEB) 3 ML AMP HHN PRN (11:15)
[2017-09-21] MEDS ORDERED: ALBUMIN HUMAN 25% 100 ML IV PRN (14:00)
[2017-09-21] MEDS: ALBUMIN HUMAN 25% 100 ML IV PRN (14:24)
[2017-09-21] MEDS: ROPINIROLE 1 MG TAB PO PRN ×2 (14:55→20:58)
[2017-09-21 16:26] LABS: BASOPHILS % 0.8 % (0.0-2.0); EOSINOPHILS # 0.2 10^3/ul (0.0-0.5); HEMATOCRIT 33.8 % (42.0-52.0); HEMOGLOBIN 10.6 g/dl (14.0-18.0); MEAN CORPUSCULAR HEMOGLOBIN 28.3 pg (29.0-33.0); MEAN CORPUSCULAR HGB CONC 31.4 g/dl (32.0-37.0); MEAN CORPUSCULAR VOLUME 90.1 fl (82.0-101.0); MEAN PLATELET VOLUME 10.4 fl (7.4-10.4); MONOCYTE # 0.3 10^3/ul (0.3-0.9); MONOCYTES % 5.2 % (0.0-11.0); NEUTROPHIL # 3.6 10^3/ul (1.6-7.5); NEUTROPHILS % 71.8 % (39.0-77.0); PLATELET COUNT 201 10^3/UL (140-415); RED BLOOD COUNT 3.75 10^6/ul (4.70-6.10); RED CELL DISTRIBUTION WIDTH 15.9 % (11.5-14.5)
[2017-09-21 16:46] LABS: ALBUMIN 4.1 g/dl (3.3-4.9); ALBUMIN/GLOBULIN RATIO 1.2; BILIRUBIN,INDIRECT 0.1 mg/dl (0-1.1); BILIRUBIN,TOTAL 0.1 mg/dl (0.2-1.3); CALCIUM 9.3 mg/dl (8.4-10.2); CREATININE 2.86 mg/dl (0.61-1.24); TOTAL PROTEIN 7.5 g/dl (6.1-8.1)
[2017-09-21 16:52] LABS: POTASSIUM 2.3 mmol/L (3.5-5.1)
[2017-09-21] MEDS ORDERED: POTASSIUM CHLORIDE (SR) 20 MEQ TAB PO STA (17:28)
[2017-09-21] MEDS ORDERED: COLLAGENASE 30 GM TUBE TOP PRN (19:00)
[2017-09-22] VITALS (13 sets, daily range): BP systolic 119–147; BP diastolic 54–69; PULSE 73–87; RESP 16–20
[2017-09-22] MEDS: ONDANSETRON 4 MG INJ IV PRN (04:25)
[2017-09-22] MEDS: HYDROmorphONE 1 MG/ML SYG IV PRN ×4 (04:25→20:35)
[2017-09-22] MEDS: PANTOPRAZOLE (EC) 40 MG TAB PO SCH (06:04)
--- NOTE | 2017-09-22 07:47 | CONS ---
Date/Time of Note Date/Time of Note DATE: 09/22/17 TIME: 07:45 Consultation Date/Type/Reason Admit Date/Time Sep 07, 2017 at 14:16 Type of Consultation: neph Referring Provider: POP BOYCE MD 24 HR Interval Summary Free Text/Dictation resting now.. erika HD w min UF yesterday Exam/Review of Systems Vital Signs Vitals Vital Signs Date Time Temp Pulse Resp B/P Pulse Ox O2 Delivery O2 Flow Rate FiO2 09/22/17 05:05 97.5 88 18 119/56 100 09/22/17 00:43 Venti Mask 13.0 09/21/17 20:16 35 Intake and Output 09/21/17 09/21/17 09/22/17 15:00 23:00 07:00 Intake Total 500 ml Output Total 2700 ml 3 ml Balance -2200 ml -3 ml Exam Constitutional: alert Psych: no complaints Neck: supple Respiratory: clear to auscultation Cardiovascular: regular rate and rhythm Gastrointestinal: nl liver, spleen, soft Extremities: edema (none...fxn LUE AVF) Results Result Diagram: 09/21/17 1600 09/21/17 1600 Results 24 hrs Laboratory Tests Test 09/21/17 16:00 White Blood Count 5.0 Red Blood Count 3.75 L Hemoglobin 10.6 L Hematocrit 33.8 L Mean Corpuscular Volume 90.1 Mean Corpuscular Hemoglobin 28.3 L Mean Corpuscular Hemoglobin Concent 31.4 L Red Cell Distribution Width 15.9 H Platelet Count 201 Mean Platelet Volume 10.4 Neutrophils % 71.8 Lymphocytes % 19.0 Monocytes % 5.2 Eosinophils % 3.0 Basophils % 0.8 Nucleated Red Blood Cells % 0.0 Neutrophils # 3.6 Lymphocytes # 1.0 Monocytes # 0.3 Eosinophils # 0.2 Basophils # 0.0 Nucleated Red Blood Cells # 0.0 Sodium Level 137 Potassium Level 2.3 #*L Chloride Level 92 L Carbon Dioxide Level 29 Anion Gap 18 H Blood Urea Nitrogen 19 # Creatinine 2.86 #H Glucose Level 105 Calcium Level 9.3 Total Bilirubin 0.1 L Direct Bilirubin 0.00 Indirect Bilirubin 0.1 Aspartate Amino Transf (AST/SGOT) 21 Alanine Aminotransferase (ALT/SGPT) 26 Alkaline Phosphatase 223 H Total Protein 7.5 Albumin 4.1 Globulin 3.40 H Albumin/Globulin Ratio 1.20 Medications Medications Current Medications Allopurinol (Zyloprim) 100 mg DAILY PO Last administered on 09/21/17 08:49; Admin Dose 100 MG; Start 09/08/17 at 09:00 Aspirin (Aspirin) 81 mg DAILY PO Last administered on 09/21/17 08:49; Admin Dose 81 MG; Start 09/08/17 at 09:00 Clopidogrel Bisulfate (plaVIX) 75 mg QHS PO Last administered on 09/13/17 21: 28; Admin Dose 75 MG; Start 09/07/17 at 21:00; Status Future Hold Losartan Potassium (Cozaar) 25 mg DAILY PO Last administered on 09/12/17 08: 43; Admin Dose 25 MG; Start 09/08/17 at 09:00 Ranolazine (Ranexa) 500 mg Q12 PO Last administered on 09/21/17 20:31; Admin Dose 500 MG; Start 09/07/17 at 21:00 Zolpidem Tartrate (Ambien) 7.5 mg QHS PRN PO INSOMNIA Last administered on 20:29; Admin Dose 7.5 MG; Start 09/07/17 at 15:30 Ondansetron HCl (Zofran Tab) 4 mg Q6H PRN PO NAUSEA AND/OR VOMITING Last administered on 09/15/17 05:15; Admin Dose 4 MG; Start 09/07/17 at 15:30 Ondansetron HCl (Zofran Inj) 4 mg Q6H PRN IV NAUSEA AND/OR VOMITING Last administered on 09/22/17 04:25; Admin Dose 4 MG; Start 09/07/17 at 15:30 Acetaminophen (Tylenol Tab) 650 mg Q6H PRN PO PAIN LEVEL 1-3 OR FEVER; Start 09/07/17 at 15:30 Acetaminophen/ Hydrocodone Bitart ([place] (5/325)) 1 tab Q6H PRN PO MODERATE PAIN LEVEL 4-6 Last administered on 09/21/17 16:11; Admin Dose 1 TAB; Start at 15:30 Docusate Sodium (Colace) 100 mg Q12H PRN PO CONSTIPATION Last administered on 09/21/17 09:00; Admin Dose 100 MG; Start 09/07/17 at 15:30 Bisacodyl (Dulcolax) 5 mg DAILY PRN PO CONSTIPATION Last administered on 09:00; Admin Dose 5 MG; Start 09/07/17 at 15:30 Bisacodyl (Dulcolax Supp) 10 mg DAILY PRN [place] CONSTIPATION; Start 09/07/17 at 15:30 Heparin Sodium (Porcine) (Heparin (5000 Units/0.5 ml)) 5,000 unit BID SC Last administered on 09/13/17 08:52; Admin Dose 5,000 UNIT; Start 09/09/17 at 09: 00 Mupirocin (Bactroban) 1 applic BID TOP Last administered on 09/21/17 20:31; Admin Dose 1 APPLIC; Start 09/09/17 at 21:00 Alprazolam (Xanax) 0.25 mg Q6H PRN PO ANXIETY Last administered on 09/15/17 05:09; Admin Dose 0.25 MG; Start 09/12/17 at 10:15 Hydromorphone HCl (Dilaudid) 1 mg Q2H PRN IV severe pain Last administered on 09/22/17 04:25; Admin Dose 1 MG; Start 09/15/17 at 22:00 Ropinirole HCl (Requip) 1 mg Q6H PRN PO MUSCLE SPASMS Last administered on 09/21 20:58; Admin Dose 1 MG; Start 09/21/17 at 14:00 Collagenase (Santyl) 1 applic DAILY TOP ; Start 09/22/17 at 09:00 Collagenase (Santyl) 1 applic PRN PRN TOP WOUND CARE; Start 09/21/17 at 19:00 POP BOYCE MD Sep 22, 2017 07:47
--- NOTE | 2017-09-22 07:49 | CONS ---
Date/Time of Note Date/Time of Note DATE: 09/22/17 TIME: 07:48 Assessment/Plan Assessment/Plan Problems: (1) HTN (hypertension) Comment: controlled (2) Debility Comment: working w PT... working on d/c plans (3) ESRD (end stage renal disease) on dialysis Status: Chronic Comment: hd in am (4) Pleural effusion, left Status: Acute Comment: check CXR today to reassess Lt PE Consultation Date/Type/Reason Admit Date/Time Sep 07, 2017 at 14:16 Type of Consultation: neph Referring Provider: POP BOYCE MD 24 HR Interval Summary Free Text/Dictation cont of the prior note Exam/Review of Systems Vital Signs Vitals Vital Signs Date Time Temp Pulse Resp B/P Pulse Ox O2 Delivery O2 Flow Rate FiO2 09/22/17 05:05 97.5 88 18 119/56 100 09/22/17 00:43 Venti Mask 13.0 09/21/17 20:16 35 Intake and Output 09/21/17 09/21/17 09/22/17 15:00 23:00 07:00 Intake Total 500 ml Output Total 2700 ml 3 ml Balance -2200 ml -3 ml Results Result Diagram: 09/21/17 1600 09/21/17 1600 Results 24 hrs Laboratory Tests Test 09/21/17 16:00 White Blood Count 5.0 Red Blood Count 3.75 L Hemoglobin 10.6 L Hematocrit 33.8 L Mean Corpuscular Volume 90.1 Mean Corpuscular Hemoglobin 28.3 L Mean Corpuscular Hemoglobin Concent 31.4 L Red Cell Distribution Width 15.9 H Platelet Count 201 Mean Platelet Volume 10.4 Neutrophils % 71.8 Lymphocytes % 19.0 Monocytes % 5.2 Eosinophils % 3.0 Basophils % 0.8 Nucleated Red Blood Cells % 0.0 Neutrophils # 3.6 Lymphocytes # 1.0 Monocytes # 0.3 Eosinophils # 0.2 Basophils # 0.0 Nucleated Red Blood Cells # 0.0 Sodium Level 137 Potassium Level 2.3 #*L Chloride Level 92 L Carbon Dioxide Level 29 Anion Gap 18 H Blood Urea Nitrogen 19 # Creatinine 2.86 #H Glucose Level 105 Calcium Level 9.3 Total Bilirubin 0.1 L Direct Bilirubin 0.00 Indirect Bilirubin 0.1 Aspartate Amino Transf (AST/SGOT) 21 Alanine Aminotransferase (ALT/SGPT) 26 Alkaline Phosphatase 223 H Total Protein 7.5 Albumin 4.1 Globulin 3.40 H Albumin/Globulin Ratio 1.20 Medications Medications Current Medications Allopurinol (Zyloprim) 100 mg DAILY PO Last administered on 09/21/17 08:49; Admin Dose 100 MG; Start 09/08/17 at 09:00 Aspirin (Aspirin) 81 mg DAILY PO Last administered on 09/21/17 08:49; Admin Dose 81 MG; Start 09/08/17 at 09:00 Clopidogrel Bisulfate (plaVIX) 75 mg QHS PO Last administered on 09/13/17 21: 28; Admin Dose 75 MG; Start 09/07/17 at 21:00; Status Future Hold Losartan Potassium (Cozaar) 25 mg DAILY PO Last administered on 09/12/17 08: 43; Admin Dose 25 MG; Start 09/08/17 at 09:00 Ranolazine (Ranexa) 500 mg Q12 PO Last administered on 09/21/17 20:31; Admin Dose 500 MG; Start 09/07/17 at 21:00 Zolpidem Tartrate (Ambien) 7.5 mg QHS PRN PO INSOMNIA Last administered on 20:29; Admin Dose 7.5 MG; Start 09/07/17 at 15:30 Ondansetron HCl (Zofran Tab) 4 mg Q6H PRN PO NAUSEA AND/OR VOMITING Last administered on 09/15/17 05:15; Admin Dose 4 MG; Start 09/07/17 at 15:30 Ondansetron HCl (Zofran Inj) 4 mg Q6H PRN IV NAUSEA AND/OR VOMITING Last administered on 09/22/17 04:25; Admin Dose 4 MG; Start 09/07/17 at 15:30 Acetaminophen (Tylenol Tab) 650 mg Q6H PRN PO PAIN LEVEL 1-3 OR FEVER; Start 09/07/17 at 15:30 Acetaminophen/ Hydrocodone Bitart ([place] (5/325)) 1 tab Q6H PRN PO MODERATE PAIN LEVEL 4-6 Last administered on 09/21/17 16:11; Admin Dose 1 TAB; Start at 15:30 Docusate Sodium (Colace) 100 mg Q12H PRN PO CONSTIPATION Last administered on 09/21/17 09:00; Admin Dose 100 MG; Start 09/07/17 at 15:30 Bisacodyl (Dulcolax) 5 mg DAILY PRN PO CONSTIPATION Last administered on 09:00; Admin Dose 5 MG; Start 09/07/17 at 15:30 Bisacodyl (Dulcolax Supp) 10 mg DAILY PRN [place] CONSTIPATION; Start 09/07/17 at 15:30 Heparin Sodium (Porcine) (Heparin (5000 Units/0.5 ml)) 5,000 unit BID SC Last administered on 09/13/17 08:52; Admin Dose 5,000 UNIT; Start 09/09/17 at 09: 00 Mupirocin (Bactroban) 1 applic BID TOP Last administered on 09/21/17 20:31; Admin Dose 1 APPLIC; Start 09/09/17 at 21:00 Alprazolam (Xanax) 0.25 mg Q6H PRN PO ANXIETY Last administered on 09/15/17 05:09; Admin Dose 0.25 MG; Start 09/12/17 at 10:15 Hydromorphone HCl (Dilaudid) 1 mg Q2H PRN IV severe pain Last administered on 09/22/17 04:25; Admin Dose 1 MG; Start 09/15/17 at 22:00 Ropinirole HCl (Requip) 1 mg Q6H PRN PO MUSCLE SPASMS Last administered on 09/21 20:58; Admin Dose 1 MG; Start 09/21/17 at 14:00 Collagenase (Santyl) 1 applic DAILY TOP ; Start 09/22/17 at 09:00 Collagenase (Santyl) 1 applic PRN PRN TOP WOUND CARE; Start 09/21/17 at 19:00 POP BOYCE MD Sep 22, 2017 07:49
[2017-09-22] MEDS: LOSARTAN 25 MG TAB PO SCH (09:00)
[2017-09-22] MEDS: HEPARIN 5,000 UNIT/0.5 ML VIAL SC SCH ×2 (09:00→20:42)
[2017-09-22] MEDS: RANOLAZINE (SR) 500 MG TAB PO SCH ×2 (09:21→20:35)
[2017-09-22] MEDS: ALLOPURINOL 100 MG TAB PO SCH (09:22)
[2017-09-22] MEDS: SEVELAMER 800 MG TAB PO SCH ×3 (09:22→17:51)
[2017-09-22] MEDS: ASPIRIN 81 MG TAB PO SCH (09:22)
[2017-09-22] MEDS: ROPINIROLE 1 MG TAB PO PRN ×2 (09:22→20:35)
[2017-09-22] MEDS: MUPIROCIN 2% 22 GM OINT TOP SCH ×2 (09:23→20:39)
[2017-09-22] MEDS: COLLAGENASE 30 GM TUBE TOP SCH (09:27)
--- NOTE | 2017-09-22 10:21 | RADRPT ---
PROCEDURE: XR Chest. CLINICAL INDICATION: Shortness of breath. TECHNIQUE: Single frontal view. COMPARISON: 09/20/2017. FINDINGS: Mild pulmonary edema is unchanged. The lungs are otherwise clear. The heart is enlarged. There is calcification in the aorta consistent with atherosclerosis. There is a right-sided biventricular pacemaker/internal cardiac defibrillator. A stent and surgical clips ar e present in the right arm. There is no pleural effusion. There is no pneumothorax. IMPRESSION: 1. Mild pulmonary edema, unchanged. 2. Cardiomegaly and atherosclerosis. 3. Biventricular pacemaker/AICD. 4. Stent and surgical clips in the right arm. 5. Otherwise unremarkable chest radiograph. RPTAT: QQ .Lazaro Zavaleta MD, MD Date Time Electronically viewed and signed by .Lazaro Zavaleta MD, on 09/22/2017 10:21 .R/
--- NOTE | 2017-09-22 10:34 | CONS ---
Date/Time of Note Date/Time of Note DATE: 09/22/17 TIME: 10:32 Assessment/Plan Assessment/Plan Additional Assessment/Plan Chest x-ray was reviewed from today which is showing mild pulmonary vascular congestion. Assessment and recommendations; 1. Patient admitted with shortness of breath due to recurrent left pleural effusion status post multiple thoracentesis in the past, ultimately requiring Pleurx catheter placement on the left side with significant clinical and radiological improvement. Next 2. Underlying CHF. 3. End-stage renal disease, on hemodialysis. 4. Cardiac arrhythmia. 5. Chronic anemia. Continue current treatment. Patient can be discharged. Consultation Date/Type/Reason Admit Date/Time Sep 07, 2017 at 14:16 Initial Consult Date 09/08/17 Type of Consultation: Pulmonary Referring Provider: POP BOYCE MD 24 HR Interval Summary Free Text/Dictation Patient's condition is stable. Still requiring supplemental oxygen for O2 saturation maintenance. Denies any chest pain. General exam; elderly male, awake alert, currently in no distress. Exam/Review of Systems Vital Signs Vitals Vital Signs Date Time Temp Pulse Resp B/P Pulse Ox O2 Delivery O2 Flow Rate FiO2 09/22/17 08:19 98.0 94 20 126/66 90 09/22/17 00:43 Venti Mask 13.0 09/21/17 20:16 35 Intake and Output 09/21/17 09/21/17 09/22/17 15:00 23:00 07:00 Intake Total 500 ml Output Total 2700 ml 3 ml Balance -2200 ml -3 ml Exam HEENT exam; supple neck, positive JVD. No lymphadenopathy. Midline trachea. No thyromegaly. Patient has a multiple carious teeth. Chest exam; diminished but clear breath sounds. S1-S2 audible, no murmurs. Regular rhythm. Abdomen exam; soft, nontender. No organomegaly. Bowel sounds audible. Extremity exam; no edema. CHUTE TAPPER exam; no focal deficit. Results Result Diagram: 09/21/17 1600 09/21/17 1600 Results 24 hrs Laboratory Tests Test 09/21/17 16:00 White Blood Count 5.0 Red Blood Count 3.75 L Hemoglobin 10.6 L Hematocrit 33.8 L Mean Corpuscular Volume 90.1 Mean Corpuscular Hemoglobin 28.3 L Mean Corpuscular Hemoglobin Concent 31.4 L Red Cell Distribution Width 15.9 H Platelet Count 201 Mean Platelet Volume 10.4 Neutrophils % 71.8 Lymphocytes % 19.0 Monocytes % 5.2 Eosinophils % 3.0 Basophils % 0.8 Nucleated Red Blood Cells % 0.0 Neutrophils # 3.6 Lymphocytes # 1.0 Monocytes # 0.3 Eosinophils # 0.2 Basophils # 0.0 Nucleated Red Blood Cells # 0.0 Sodium Level 137 Potassium Level 2.3 #*L Chloride Level 92 L Carbon Dioxide Level 29 Anion Gap 18 H Blood Urea Nitrogen 19 # Creatinine 2.86 #H Glucose Level 105 Calcium Level 9.3 Total Bilirubin 0.1 L Direct Bilirubin 0.00 Indirect Bilirubin 0.1 Aspartate Amino Transf (AST/SGOT) 21 Alanine Aminotransferase (ALT/SGPT) 26 Alkaline Phosphatase 223 H Total Protein 7.5 Albumin 4.1 Globulin 3.40 H Albumin/Globulin Ratio 1.20 Medications Medications Current Medications Allopurinol (Zyloprim) 100 mg DAILY PO Last administered on 09/22/17 09:22; Admin Dose 100 MG; Start 09/08/17 at 09:00 Aspirin (Aspirin) 81 mg DAILY PO Last administered on 09/22/17 09:22; Admin Dose 81 MG; Start 09/08/17 at 09:00 Clopidogrel Bisulfate (plaVIX) 75 mg QHS PO Last administered on 09/13/17 21: 28; Admin Dose 75 MG; Start 09/07/17 at 21:00; Status Future Hold Losartan Potassium (Cozaar) 25 mg DAILY PO Last administered on 09/12/17 08: 43; Admin Dose 25 MG; Start 09/08/17 at 09:00 Ranolazine (Ranexa) 500 mg Q12 PO Last administered on 09/22/17 09:21; Admin Dose 500 MG; Start 09/07/17 at 21:00 Zolpidem Tartrate (Ambien) 7.5 mg QHS PRN PO INSOMNIA Last administered on 20:29; Admin Dose 7.5 MG; Start 09/07/17 at 15:30 Ondansetron HCl (Zofran Tab) 4 mg Q6H PRN PO NAUSEA AND/OR VOMITING Last administered on 09/15/17 05:15; Admin Dose 4 MG; Start 09/07/17 at 15:30 Ondansetron HCl (Zofran Inj) 4 mg Q6H PRN IV NAUSEA AND/OR VOMITING Last administered on 09/22/17 04:25; Admin Dose 4 MG; Start 09/07/17 at 15:30 Acetaminophen (Tylenol Tab) 650 mg Q6H PRN PO PAIN LEVEL 1-3 OR FEVER; Start 09/07/17 at 15:30 Acetaminophen/ Hydrocodone Bitart ([place] (5/325)) 1 tab Q6H PRN PO MODERATE PAIN LEVEL 4-6 Last administered on 09/21/17 16:11; Admin Dose 1 TAB; Start at 15:30 Docusate Sodium (Colace) 100 mg Q12H PRN PO CONSTIPATION Last administered on 09/21/17 09:00; Admin Dose 100 MG; Start 09/07/17 at 15:30 Bisacodyl (Dulcolax) 5 mg DAILY PRN PO CONSTIPATION Last administered on 09:00; Admin Dose 5 MG; Start 09/07/17 at 15:30 Bisacodyl (Dulcolax Supp) 10 mg DAILY PRN [place] CONSTIPATION; Start 09/07/17 at 15:30 Heparin Sodium (Porcine) (Heparin (5000 Units/0.5 ml)) 5,000 unit BID SC Last administered on 09/13/17 08:52; Admin Dose 5,000 UNIT; Start 09/09/17 at 09: 00 Mupirocin (Bactroban) 1 applic BID TOP Last administered on 09/22/17 09:23; Admin Dose 1 APPLIC; Start 09/09/17 at 21:00 Alprazolam (Xanax) 0.25 mg Q6H PRN PO ANXIETY Last administered on 09/15/17 05:09; Admin Dose 0.25 MG; Start 09/12/17 at 10:15 Hydromorphone HCl (Dilaudid) 1 mg Q2H PRN IV severe pain Last administered on 09/22/17 04:25; Admin Dose 1 MG; Start 09/15/17 at 22:00 Ropinirole HCl (Requip) 1 mg Q6H PRN PO MUSCLE SPASMS Last administered on 09/22 09:22; Admin Dose 1 MG; Start 09/21/17 at 14:00 Collagenase (Santyl) 1 applic DAILY TOP Last administered on 12/5/17at 09:27; Admin Dose 1 APPLIC; Start 09/22/17 at 09:00 Collagenase (Santyl) 1 applic PRN PRN TOP WOUND CARE; Start 09/21/17 at 19:00 YUSUF FLAHERTY Sep 22, 2017 10:34
[2017-09-22] MEDS: HYDROCODONE/APAP (5/325) TAB PO PRN (23:16)
[2017-09-23] VITALS (19 sets, daily range): BP systolic 110–152; BP diastolic 51–71; PULSE 79–98; RESP 16–22
[2017-09-23] MEDS: ONDANSETRON 4 MG INJ IV PRN (01:55)
[2017-09-23] MEDS: ACETAMINOPHEN 325 MG TAB PO PRN (05:21)
[2017-09-23] MEDS: HYDROmorphONE 1 MG/ML SYG IV PRN ×3 (05:59→19:42)
[2017-09-23] MEDS: PANTOPRAZOLE (EC) 40 MG TAB PO SCH (07:30)
[2017-09-23] MEDS: ALBUTEROL/IPRATROPIUM (NEB) 3 ML AMP HHN PRN (07:31)
[2017-09-23] MEDS: SEVELAMER 800 MG TAB PO SCH ×4 (08:00→18:54)
[2017-09-23 08:39] LABS: CALCIUM 9.8 mg/dl (8.4-10.2); CREATININE 6.37 mg/dl (0.61-1.24); POTASSIUM 4.9 mmol/L (3.5-5.1)
[2017-09-23] MEDS: HEPARIN 5,000 UNIT/0.5 ML VIAL SC SCH ×2 (09:00→21:00)
[2017-09-23] MEDS: RANOLAZINE (SR) 500 MG TAB PO SCH ×2 (09:00→22:26)
[2017-09-23] MEDS: ASPIRIN 81 MG TAB PO SCH (09:00)
[2017-09-23] MEDS: ALLOPURINOL 100 MG TAB PO SCH (09:00)
[2017-09-23] MEDS: COLLAGENASE 30 GM TUBE TOP SCH (09:00)
[2017-09-23] MEDS: LOSARTAN 25 MG TAB PO SCH (09:00)
--- NOTE | 2017-09-23 09:13 | CONS ---
Date/Time of Note Date/Time of Note DATE: 09/23/17 TIME: 09:10 Assessment/Plan Assessment/Plan Chief Complaint/Hosp Course 1. ICM- LVEF 30-35%, s/p BiV ICD, chronic NYHA III on home o2 2. Acute on Chronic diastolic+systolic heart failure - fluid mgmt with iHD. 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 4. Hyperlipidemia. 5. CAD- s/p many previous PCI. 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 ROTARY SHEAR OPERATOR branch of D1 with l-l collaterals . patent lad/Diag stents. distal RCA disease s/p PCI 11/2016 6. pleural effusion chronic likely from chornic fluid overload- s/p pleurex catheter placement 7. ICD- WASTE TREATMENT OPERATOR-D fxn, normal on interrogation today, full report in chart. did lower blanking period with elevated HR to help increase WASTE TREATMENT OPERATOR time. no events, VT /VF Impression: -Symptoms are not consistent with device shock. No evidence of VT, VF, ATP on telemetry - con asa 81mg daily - cont plavix 75 mg daily, ok to hold for procedures - pt intolerant of bb/nitrate previously -Hold losartan for SBP less than 100 - cont statin - cont dialysis per renal for fluid management Problems: Consultation Date/Type/Reason Admit Date/Time Sep 07, 2017 at 14:16 Initial Consult Date 09/10/17 Type of Consultation: Cardiology Referring Provider: POP BOYCE MD 24 HR Interval Summary Free Text/Dictation No acute events. Patient states he feels slight jerks in the right and left upper extremity. He feels that he may have been related to his defibrillator. Denies any severe pain or jolts that are severe in nature. Denies any chest pain pressure. Dyspnea is stable. Still has pain at Pleurx catheter site Telemetry reviewed: By V paced rhythm. Detailed Summary Eyes: no complaints ENT: bleeding Respiratory: shortness of breath Cardiovascular: no complaints Gastrointestinal: no complaints Exam/Review of Systems Vital Signs Vitals Vital Signs Date Time Temp Pulse Resp B/P Pulse Ox O2 Delivery O2 Flow Rate FiO2 09/23/17 08:07 79 09/23/17 07:41 98.2 20 139/65 09/23/17 07:33 98 Venti Mask 15.0 35 Intake and Output 09/22/17 09/22/17 09/23/17 15:00 23:00 07:00 Intake Total 500 ml 350 ml Output Total 5 ml Balance 500 ml 345 ml Exam Constitutional: alert, oriented, cachectic Psych: normal mood Head: normocephalic Eyes: nl conjunctiva ENMT: nl external ears & nose Neck: jvd, supple Respiratory: pleurex catheter in place, decreased bs bases Cardiovascular: regular rate and rhythm, ii/vi broderick rusb. Right-sided pacemaker in place. No edema Gastrointestinal: soft, no ttp Ext: L fistula + thrill Results Result Diagram: 09/21/17 1600 09/23/17 0714 Results 24 hrs Laboratory Tests Test 09/22/17 23:25 09/23/17 07:14 Potassium Level 4.6 # 4.9 Sodium Level 137 Chloride Level 94 L Carbon Dioxide Level 28 Anion Gap 20 H Blood Urea Nitrogen 50 #H Creatinine 6.37 #H Glucose Level 78 Calcium Level 9.8 Medications Medications Current Medications Allopurinol (Zyloprim) 100 mg DAILY PO Last administered on 09/22/17 09:22; Admin Dose 100 MG; Start 09/08/17 at 09:00 Aspirin (Aspirin) 81 mg DAILY PO Last administered on 09/22/17 09:22; Admin Dose 81 MG; Start 09/08/17 at 09:00 Clopidogrel Bisulfate (plaVIX) 75 mg QHS PO Last administered on 09/13/17 21: 28; Admin Dose 75 MG; Start 09/07/17 at 21:00; Status Future Hold Losartan Potassium (Cozaar) 25 mg DAILY PO Last administered on 09/12/17 08: 43; Admin Dose 25 MG; Start 09/08/17 at 09:00 Ranolazine (Ranexa) 500 mg Q12 PO Last administered on 09/22/17 20:35; Admin Dose 500 MG; Start 09/07/17 at 21:00 Zolpidem Tartrate (Ambien) 7.5 mg QHS PRN PO INSOMNIA Last administered on 20:29; Admin Dose 7.5 MG; Start 09/07/17 at 15:30 Ondansetron HCl (Zofran Tab) 4 mg Q6H PRN PO NAUSEA AND/OR VOMITING Last administered on 09/15/17 05:15; Admin Dose 4 MG; Start 09/07/17 at 15:30 Ondansetron HCl (Zofran Inj) 4 mg Q6H PRN IV NAUSEA AND/OR VOMITING Last administered on 09/23/17 01:55; Admin Dose 4 MG; Start 09/07/17 at 15:30 Acetaminophen (Tylenol Tab) 650 mg Q6H PRN PO PAIN LEVEL 1-3 OR FEVER Last administered on 09/23/17 05:21; Admin Dose 650 MG; Start 09/07/17 at 15:30 Acetaminophen/ Hydrocodone Bitart ([place] (5/325)) 1 tab Q6H PRN PO MODERATE PAIN LEVEL 4-6 Last administered on 09/22/17 23:16; Admin Dose 1 TAB; Start at 15:30 Docusate Sodium (Colace) 100 mg Q12H PRN PO CONSTIPATION Last administered on 09/21/17 09:00; Admin Dose 100 MG; Start 09/07/17 at 15:30 Bisacodyl (Dulcolax) 5 mg DAILY PRN PO CONSTIPATION Last administered on 09:00; Admin Dose 5 MG; Start 09/07/17 at 15:30 Bisacodyl (Dulcolax Supp) 10 mg DAILY PRN [place] CONSTIPATION; Start 09/07/17 at 15:30 Heparin Sodium (Porcine) (Heparin (5000 Units/0.5 ml)) 5,000 unit BID SC Last administered on 09/13/17 08:52; Admin Dose 5,000 UNIT; Start 09/09/17 at 09: 00 Mupirocin (Bactroban) 1 applic BID TOP Last administered on 09/22/17 20:39; Admin Dose 1 APPLIC; Start 09/09/17 at 21:00 Alprazolam (Xanax) 0.25 mg Q6H PRN PO ANXIETY Last administered on 09/15/17 05:09; Admin Dose 0.25 MG; Start 09/12/17 at 10:15 Hydromorphone HCl (Dilaudid) 1 mg Q2H PRN IV severe pain Last administered on 09/23/17 05:59; Admin Dose 1 MG; Start 09/15/17 at 22:00 Ropinirole HCl (Requip) 1 mg Q6H PRN PO MUSCLE SPASMS Last administered on 09/22 20:35; Admin Dose 1 MG; Start 09/21/17 at 14:00 Collagenase (Santyl) 1 applic DAILY TOP Last administered on 09/22/17 09:27; Admin Dose 1 APPLIC; Start 09/22/17 at 09:00 Collagenase (Santyl) 1 applic PRN PRN TOP WOUND CARE; Start 09/21/17 at 19:00 Procedures Procedures This x-ray report reviewed as below 1. Mild pulmonary edema, unchanged. 2. Cardiomegaly and atherosclerosis. 3. Biventricular pacemaker/AICD. 4. Stent and surgical clips in the right arm. 5. Otherwise unremarkable chest radiograph. SUSANA VASQUEZ Sep 23, 2017 09:13
[2017-09-23] MEDS: ROPINIROLE 1 MG TAB PO PRN ×3 (09:19→22:25)
[2017-09-23] MEDS: MUPIROCIN 2% 22 GM OINT TOP SCH ×2 (09:21→22:26)
[2017-09-23] MEDS ORDERED: ALBUMIN HUMAN 25% 100 ML IV PRN (09:30)
--- NOTE | 2017-09-23 13:21 | CONS ---
Date/Time of Note Date/Time of Note DATE: 09/23/17 TIME: 13:19 Assessment/Plan Assessment/Plan Additional Assessment/Plan 1. CKD, to be dialzyed today 2. ASHD, stable without angina 3. Anemia, stable 4. Recurrent left pleural effusion, stable 5. Hx DM, diet controlled. Consultation Date/Type/Reason Admit Date/Time Sep 07, 2017 at 14:16 Initial Consult Date 09/10/17 Type of Consultation: Cardiology Referring Provider: POP BOYCE MD Detailed Summary Respiratory: cough (which is dry), No pleuritic pain Cardiovascular: No chest pain Gastrointestinal: no complaints Genitourinary: no complaints Exam/Review of Systems Vital Signs Vitals Vital Signs Date Time Temp Pulse Resp B/P Pulse Ox O2 Delivery O2 Flow Rate FiO2 09/23/17 12:15 98 09/23/17 11:46 98.2 22 133/60 95 09/23/17 08:00 Venti Mask 13.0 09/23/17 07:33 35 Intake and Output 09/22/17 09/22/17 09/23/17 15:00 23:00 07:00 Intake Total 500 ml 350 ml Output Total 5 ml Balance 500 ml 345 ml Exam Neck: No jvd Respiratory: diminished breath sounds, other (rhonchi left base and few rales right base) Cardiovascular: regular rate and rhythm, No S3 Gastrointestinal: soft Extremities: No edema, No tenderness Results Result Diagram: 09/21/17 1600 09/23/17 0714 Results 24 hrs Laboratory Tests Test 09/22/17 23:25 09/23/17 07:14 Potassium Level 4.6 # 4.9 Sodium Level 137 Chloride Level 94 L Carbon Dioxide Level 28 Anion Gap 20 H Blood Urea Nitrogen 50 #H Creatinine 6.37 #H Glucose Level 78 Calcium Level 9.8 Medications Medications Current Medications Allopurinol (Zyloprim) 100 mg DAILY PO Last administered on 09/22/17 09:22; Admin Dose 100 MG; Start 09/08/17 at 09:00 Aspirin (Aspirin) 81 mg DAILY PO Last administered on 09/23/17 09:00; Admin Dose 81 MG; Start 09/08/17 at 09:00 Clopidogrel Bisulfate (plaVIX) 75 mg QHS PO Last administered on 09/13/17 21: 28; Admin Dose 75 MG; Start 09/07/17 at 21:00; Status Future Hold Losartan Potassium (Cozaar) 25 mg DAILY PO Last administered on 09/12/17 08: 43; Admin Dose 25 MG; Start 09/08/17 at 09:00 Ranolazine (Ranexa) 500 mg Q12 PO Last administered on 09/22/17 20:35; Admin Dose 500 MG; Start 09/07/17 at 21:00 Zolpidem Tartrate (Ambien) 7.5 mg QHS PRN PO INSOMNIA Last administered on 20:29; Admin Dose 7.5 MG; Start 09/07/17 at 15:30 Ondansetron HCl (Zofran Tab) 4 mg Q6H PRN PO NAUSEA AND/OR VOMITING Last administered on 09/15/17 05:15; Admin Dose 4 MG; Start 09/07/17 at 15:30 Ondansetron HCl (Zofran Inj) 4 mg Q6H PRN IV NAUSEA AND/OR VOMITING Last administered on 09/23/17 01:55; Admin Dose 4 MG; Start 09/07/17 at 15:30 Acetaminophen (Tylenol Tab) 650 mg Q6H PRN PO PAIN LEVEL 1-3 OR FEVER Last administered on 09/23/17 05:21; Admin Dose 650 MG; Start 09/07/17 at 15:30 Acetaminophen/ Hydrocodone Bitart ([place] (5/325)) 1 tab Q6H PRN PO MODERATE PAIN LEVEL 4-6 Last administered on 09/22/17 23:16; Admin Dose 1 TAB; Start at 15:30 Docusate Sodium (Colace) 100 mg Q12H PRN PO CONSTIPATION Last administered on 09/21/17 09:00; Admin Dose 100 MG; Start 09/07/17 at 15:30 Bisacodyl (Dulcolax) 5 mg DAILY PRN PO CONSTIPATION Last administered on 09:00; Admin Dose 5 MG; Start 09/07/17 at 15:30 Bisacodyl (Dulcolax Supp) 10 mg DAILY PRN [place] CONSTIPATION; Start 09/07/17 at 15:30 Heparin Sodium (Porcine) (Heparin (5000 Units/0.5 ml)) 5,000 unit BID SC Last administered on 09/13/17 08:52; Admin Dose 5,000 UNIT; Start 09/09/17 at 09: 00 Mupirocin (Bactroban) 1 applic BID TOP Last administered on 09/23/17 09:21; Admin Dose 1 APPLIC; Start 09/09/17 at 21:00 Alprazolam (Xanax) 0.25 mg Q6H PRN PO ANXIETY Last administered on 09/15/17 05:09; Admin Dose 0.25 MG; Start 09/12/17 at 10:15 Hydromorphone HCl (Dilaudid) 1 mg Q2H PRN IV severe pain Last administered on 09/23/17 12:58; Admin Dose 1 MG; Start 09/15/17 at 22:00 Ropinirole HCl (Requip) 1 mg Q6H PRN PO MUSCLE SPASMS Last administered on 09/23 09:19; Admin Dose 1 MG; Start 09/21/17 at 14:00 Collagenase (Santyl) 1 applic DAILY TOP Last administered on 09/22/17 09:27; Admin Dose 1 APPLIC; Start 09/22/17 at 09:00 Collagenase (Santyl) 1 applic PRN PRN TOP WOUND CARE; Start 09/21/17 at 19:00 ALONZO SERRA MD Sep 23, 2017 13:21
[2017-09-23] MEDS: BISACODYL (EC) 5 MG TAB PO PRN (19:42)
[2017-09-23] MEDS: DOCUSATE SODIUM 100 MG CAP PO PRN (19:42)
[2017-09-23] MEDS: HYDROCODONE/APAP (5/325) TAB PO PRN (22:25)
[2017-09-24] VITALS (12 sets, daily range): BP systolic 97–144; BP diastolic 45–84; PULSE 78–90; RESP 16–20
[2017-09-24] MEDS: HYDROmorphONE 1 MG/ML SYG IV PRN ×3 (00:41→13:11)
--- NOTE | 2017-09-24 07:58 | CONS ---
Date/Time of Note Date/Time of Note DATE: 09/24/17 TIME: 07:56 Assessment/Plan Assessment/Plan Problems: (1) V-tach Comment: no recurrence (2) Pleural effusion, left Status: Acute Comment: last CXR (-) for any recurrence.. will update today (3) ESRD (end stage renal disease) on dialysis Status: Chronic Comment: for HD in am (4) SOB (shortness of breath) Comment: at baseline Consultation Date/Type/Reason Admit Date/Time Sep 07, 2017 at 14:16 Type of Consultation: neph Referring Provider: POP BOYCE MD 24 HR Interval Summary Free Text/Dictation comfortable... needs to get OOB Exam/Review of Systems Vital Signs Vitals Vital Signs Date Time Temp Pulse Resp B/P Pulse Ox O2 Delivery O2 Flow Rate FiO2 09/24/17 07:45 97.4 78 20 109/56 95 09/24/17 03:18 10.0 35 09/23/17 20:00 Venti Mask Intake and Output 09/23/17 09/23/17 09/24/17 15:00 23:00 07:00 Intake Total 500 ml 960 ml 400 ml Output Total 3500 ml Balance -3000 ml 960 ml 400 ml Exam Constitutional: distress (no) Psych: no complaints Neck: supple Respiratory: clear to auscultation Cardiovascular: regular rate and rhythm Gastrointestinal: soft Musculoskeletal: other (fxn LUE AVF) Results Result Diagram: 09/21/17 1600 09/23/17 0714 Medications Medications Current Medications Allopurinol (Zyloprim) 100 mg DAILY PO Last administered on 09/22/17 09:22; Admin Dose 100 MG; Start 09/08/17 at 09:00 Aspirin (Aspirin) 81 mg DAILY PO Last administered on 09/23/17 09:00; Admin Dose 81 MG; Start 09/08/17 at 09:00 Clopidogrel Bisulfate (plaVIX) 75 mg QHS PO Last administered on 09/13/17 21: 28; Admin Dose 75 MG; Start 09/07/17 at 21:00; Status Future Hold Losartan Potassium (Cozaar) 25 mg DAILY PO Last administered on 09/12/17 08: 43; Admin Dose 25 MG; Start 09/08/17 at 09:00 Ranolazine (Ranexa) 500 mg Q12 PO Last administered on 09/23/17 22:26; Admin Dose 500 MG; Start 09/07/17 at 21:00 Zolpidem Tartrate (Ambien) 7.5 mg QHS PRN PO INSOMNIA Last administered on 20:29; Admin Dose 7.5 MG; Start 09/07/17 at 15:30 Ondansetron HCl (Zofran Tab) 4 mg Q6H PRN PO NAUSEA AND/OR VOMITING Last administered on 09/15/17 05:15; Admin Dose 4 MG; Start 09/07/17 at 15:30 Ondansetron HCl (Zofran Inj) 4 mg Q6H PRN IV NAUSEA AND/OR VOMITING Last administered on 09/23/17 01:55; Admin Dose 4 MG; Start 09/07/17 at 15:30 Acetaminophen (Tylenol Tab) 650 mg Q6H PRN PO PAIN LEVEL 1-3 OR FEVER Last administered on 09/23/17 05:21; Admin Dose 650 MG; Start 09/07/17 at 15:30 Acetaminophen/ Hydrocodone Bitart ([place] (5/325)) 1 tab Q6H PRN PO MODERATE PAIN LEVEL 4-6 Last administered on 09/23/17 22:25; Admin Dose 1 TAB; Start at 15:30 Docusate Sodium (Colace) 100 mg Q12H PRN PO CONSTIPATION Last administered on 09/23/17 19:42; Admin Dose 100 MG; Start 09/07/17 at 15:30 Bisacodyl (Dulcolax) 5 mg DAILY PRN PO CONSTIPATION Last administered on 19:42; Admin Dose 5 MG; Start 09/07/17 at 15:30 Bisacodyl (Dulcolax Supp) 10 mg DAILY PRN [place] CONSTIPATION; Start 09/07/17 at 15:30 Heparin Sodium (Porcine) (Heparin (5000 Units/0.5 ml)) 5,000 unit BID SC Last administered on 09/13/17 08:52; Admin Dose 5,000 UNIT; Start 09/09/17 at 09: 00 Mupirocin (Bactroban) 1 applic BID TOP Last administered on 09/23/17 22:26; Admin Dose 1 APPLIC; Start 09/09/17 at 21:00 Alprazolam (Xanax) 0.25 mg Q6H PRN PO ANXIETY Last administered on 09/15/17 05:09; Admin Dose 0.25 MG; Start 09/12/17 at 10:15 Hydromorphone HCl (Dilaudid) 1 mg Q2H PRN IV severe pain Last administered on 09/24/17 00:41; Admin Dose 1 MG; Start 09/15/17 at 22:00 Ropinirole HCl (Requip) 1 mg Q6H PRN PO MUSCLE SPASMS Last administered on 09/23 22:25; Admin Dose 1 MG; Start 09/21/17 at 14:00 Collagenase (Santyl) 1 applic DAILY TOP Last administered on 09/22/17 09:27; Admin Dose 1 APPLIC; Start 09/22/17 at 09:00 Collagenase (Santyl) 1 applic PRN PRN TOP WOUND CARE; Start 09/21/17 at 19:00 POP BOYCE MD Sep 24, 2017 07:58
[2017-09-24] MEDS: SEVELAMER 800 MG TAB PO SCH ×4 (08:00→17:55)
[2017-09-24 08:57] LABS: BASOPHILS % 0.5 % (0.0-2.0); EOSINOPHILS # 0.2 10^3/ul (0.0-0.5); EOSINOPHILS % 4.3 % (0.0-7.0); HEMATOCRIT 35.4 % (42.0-52.0); HEMOGLOBIN 10.8 g/dl (14.0-18.0); LYMPHOCYTES # 1.2 10^3/ul (0.8-2.9); LYMPHOCYTES % 20.9 % (15.0-51.0); MEAN CORPUSCULAR HEMOGLOBIN 28.8 pg (29.0-33.0); MEAN CORPUSCULAR HGB CONC 30.5 g/dl (32.0-37.0); MEAN CORPUSCULAR VOLUME 94.4 fl (82.0-101.0); MEAN PLATELET VOLUME 10.6 fl (7.4-10.4); MONOCYTE # 0.4 10^3/ul (0.3-0.9); MONOCYTES % 7.7 % (0.0-11.0); NEUTROPHIL # 3.7 10^3/ul (1.6-7.5); NEUTROPHILS % 66.2 % (39.0-77.0); PLATELET COUNT 185 10^3/UL (140-415); RED BLOOD COUNT 3.75 10^6/ul (4.70-6.10); RED CELL DISTRIBUTION WIDTH 16.2 % (11.5-14.5); WHITE BLOOD COUNT 5.6 10^3/ul (4.8-10.8)
[2017-09-24] MEDS: LOSARTAN 25 MG TAB PO SCH (09:00)
[2017-09-24] MEDS: HEPARIN 5,000 UNIT/0.5 ML VIAL SC SCH ×2 (09:00→21:00)
[2017-09-24] MEDS: MUPIROCIN 2% 22 GM OINT TOP SCH ×2 (09:00→21:36)
[2017-09-24 09:19] LABS: CALCIUM 9.5 mg/dl (8.4-10.2); CREATININE 4.19 mg/dl (0.61-1.24); PHOSPHORUS 3.6 mg/dl (2.5-4.9); POTASSIUM 3.2 mmol/L (3.5-5.1)
[2017-09-24] MEDS: BISACODYL (EC) 5 MG TAB PO PRN (09:29)
[2017-09-24] MEDS: ROPINIROLE 1 MG TAB PO PRN ×2 (09:29→18:05)
[2017-09-24] MEDS: RANOLAZINE (SR) 500 MG TAB PO SCH ×2 (09:29→21:36)
[2017-09-24] MEDS: ALLOPURINOL 100 MG TAB PO SCH (09:29)
[2017-09-24] MEDS: DOCUSATE SODIUM 100 MG CAP PO PRN (09:29)
[2017-09-24] MEDS: ASPIRIN 81 MG TAB PO SCH (09:29)
[2017-09-24] MEDS: PANTOPRAZOLE (EC) 40 MG TAB PO SCH (09:29)
[2017-09-24] MEDS: COLLAGENASE 30 GM TUBE TOP SCH (09:31)
--- NOTE | 2017-09-24 10:46 | RADRPT ---
PROCEDURE: Chest x-ray CLINICAL INDICATION: Shortness of breath TECHNIQUE: Chest single view COMPARISON: 09/22/2017 FINDINGS: Right chest AICD is again seen. There is stable cardiomegaly and an sclerotic aortic calcification. There is ongoing but improving CHF. Small bilateral pleural effusions are noted right greater than l eft IMPRESSION: Cardiomegaly with ongoing but improving interstitial CHF RPTAT: HH .Humza Tran MD, MD Date Time Electronically viewed and signed by .Humza Tran MD, on 09/24/2017 10:46 .W/
[2017-09-24] MEDS: HYDROCODONE/APAP (5/325) TAB PO PRN (18:03)
[2017-09-24] MEDS: ACETAMINOPHEN 325 MG TAB PO PRN (21:38)
[2017-09-24] MEDS: ZOLPIDEM 5 MG TAB PO PRN (21:42)
[2017-09-25] VITALS (18 sets, daily range): BP systolic 75–132; BP diastolic 46–78; PULSE 80–110; RESP 18–20
[2017-09-25] MEDS: ROPINIROLE 1 MG TAB PO PRN ×4 (00:40→22:16)
[2017-09-25] MEDS: HYDROCODONE/APAP (5/325) TAB PO PRN ×3 (00:40→16:06)
[2017-09-25] MEDS: SEVELAMER 800 MG TAB PO SCH ×3 (08:00→17:49)
[2017-09-25] MEDS: PANTOPRAZOLE (EC) 40 MG TAB PO SCH (08:32)
[2017-09-25] MEDS: MUPIROCIN 2% 22 GM OINT TOP SCH ×2 (09:00→20:47)
[2017-09-25] MEDS: LOSARTAN 25 MG TAB PO SCH (09:00)
[2017-09-25] MEDS: HEPARIN 5,000 UNIT/0.5 ML VIAL SC SCH ×2 (09:00→20:47)
[2017-09-25] MEDS: COLLAGENASE 30 GM TUBE TOP SCH (10:23)
[2017-09-25] MEDS: RANOLAZINE (SR) 500 MG TAB PO SCH ×2 (10:24→20:45)
[2017-09-25] MEDS: DOCUSATE SODIUM 100 MG CAP PO PRN (10:24)
[2017-09-25] MEDS: ALLOPURINOL 100 MG TAB PO SCH (10:24)
[2017-09-25] MEDS: ASPIRIN 81 MG TAB PO SCH (10:24)
[2017-09-25] MEDS: BISACODYL (EC) 5 MG TAB PO PRN (10:34)
--- NOTE | 2017-09-25 13:28 | CONS ---
Date/Time of Note Date/Time of Note DATE: 09/25/17 TIME: 13:25 Assessment/Plan Assessment/Plan Problems: (1) Pleural effusion, left Status: Acute Comment: CXR yest clear... PleurX in place L for prn drainage (2) Anemia Status: Chronic Comment: on EPO... stable (3) ESRD (end stage renal disease) on dialysis Status: Chronic Comment: on HD now... next for Thu (4) Debility Comment: working w PT.. slow progress.. hope to d/c next week (5) Hypogonadism male Comment: IM T 200mg today Consultation Date/Type/Reason Admit Date/Time Sep 07, 2017 at 14:16 Type of Consultation: neph Referring Provider: POP BOYCE MD 24 HR Interval Summary Free Text/Dictation a bit tired today... breathing OK Exam/Review of Systems Vital Signs Vitals Vital Signs Date Time Temp Pulse Resp B/P Pulse Ox O2 Delivery O2 Flow Rate FiO2 09/25/17 12:37 85 09/25/17 12:18 98.0 18 121/70 98 09/25/17 08:43 10.0 35 09/25/17 08:00 Venti Mask Intake and Output 09/24/17 09/24/17 09/25/17 15:00 23:00 07:00 Intake Total 720 ml 520 ml Balance 720 ml 520 ml Exam Constitutional: alert, oriented Psych: no complaints Neck: supple Respiratory: clear to auscultation Cardiovascular: regular rate and rhythm Gastrointestinal: nl liver, spleen, soft Extremities: edema (none.. well fxn LUE AVF) Results Result Diagram: 09/24/1780409/24/17 0805 Medications Medications Current Medications Allopurinol (Zyloprim) 100 mg DAILY PO Last administered on 09/25/17 10:24; Admin Dose 100 MG; Start 09/08/17 at 09:00 Aspirin (Aspirin) 81 mg DAILY PO Last administered on 09/25/17 10:24; Admin Dose 81 MG; Start 09/08/17 at 09:00 Clopidogrel Bisulfate (plaVIX) 75 mg QHS PO Last administered on 09/13/17 21: 28; Admin Dose 75 MG; Start 09/07/17 at 21:00; Status Future Hold Losartan Potassium (Cozaar) 25 mg DAILY PO Last administered on 09/12/17 08: 43; Admin Dose 25 MG; Start 09/08/17 at 09:00 Ranolazine (Ranexa) 500 mg Q12 PO Last administered on 09/25/17 10:24; Admin Dose 500 MG; Start 09/07/17 at 21:00 Zolpidem Tartrate (Ambien) 7.5 mg QHS PRN PO INSOMNIA Last administered on 09/24 21:42; Admin Dose 7.5 MG; Start 09/07/17 at 15:30 Ondansetron HCl (Zofran Tab) 4 mg Q6H PRN PO NAUSEA AND/OR VOMITING Last administered on 09/15/17 05:15; Admin Dose 4 MG; Start 09/07/17 at 15:30 Ondansetron HCl (Zofran Inj) 4 mg Q6H PRN IV NAUSEA AND/OR VOMITING Last administered on 09/23/17 01:55; Admin Dose 4 MG; Start 09/07/17 at 15:30 Acetaminophen (Tylenol Tab) 650 mg Q6H PRN PO PAIN LEVEL 1-3 OR FEVER Last administered on 09/24/17 21:38; Admin Dose 650 MG; Start 09/07/17 at 15:30 Acetaminophen/ Hydrocodone Bitart ([place] (5/325)) 1 tab Q6H PRN PO MODERATE PAIN LEVEL 4-6 Last administered on 09/25/17 10:24; Admin Dose 1 TAB; Start at 15:30 Docusate Sodium (Colace) 100 mg Q12H PRN PO CONSTIPATION Last administered on 09/25/17 10:24; Admin Dose 100 MG; Start 09/07/17 at 15:30 Bisacodyl (Dulcolax) 5 mg DAILY PRN PO CONSTIPATION Last administered on 10:34; Admin Dose 5 MG; Start 09/07/17 at 15:30 Bisacodyl (Dulcolax Supp) 10 mg DAILY PRN [place] CONSTIPATION; Start 09/07/17 at 15:30 Heparin Sodium (Porcine) (Heparin (5000 Units/0.5 ml)) 5,000 unit BID SC Last administered on 09/13/17 08:52; Admin Dose 5,000 UNIT; Start 09/09/17 at 09: 00 Mupirocin (Bactroban) 1 applic BID TOP Last administered on 09/25/17 09:00; Admin Dose 1 APPLIC; Start 09/09/17 at 21:00 Alprazolam (Xanax) 0.25 mg Q6H PRN PO ANXIETY Last administered on 09/15/17 05:09; Admin Dose 0.25 MG; Start 09/12/17 at 10:15 Hydromorphone HCl (Dilaudid) 1 mg Q2H PRN IV severe pain Last administered on 09/24/17 13:11; Admin Dose 1 MG; Start 09/15/17 at 22:00 Ropinirole HCl (Requip) 1 mg Q6H PRN PO MUSCLE SPASMS Last administered on 09/25 10:24; Admin Dose 1 MG; Start 09/21/17 at 14:00 Collagenase (Santyl) 1 applic DAILY TOP Last administered on 09/25/17 10:23; Admin Dose 1 APPLIC; Start 09/22/17 at 09:00 Collagenase (Santyl) 1 applic PRN PRN TOP WOUND CARE; Start 09/21/17 at 19:00 POP BOYCE MD Sep 25, 2017 13:28
[2017-09-25] MEDS ORDERED: TESTOSTERONE CYPIONATE 200 MG/ML INJ IM ONE (13:30)
[2017-09-25] MEDS: ALBUMIN HUMAN 25% 100 ML IV PRN (14:39)
[2017-09-25] MEDS: HYDROmorphONE 1 MG/ML SYG IV PRN ×2 (17:38→22:16)
[2017-09-25] MEDS: ZOLPIDEM 5 MG TAB PO PRN (20:45)
[2017-09-26] VITALS (11 sets, daily range): BP systolic 111–146; BP diastolic 49–76; PULSE 69–90; RESP 16–20
[2017-09-26] MEDS: HYDROCODONE/APAP (5/325) TAB PO PRN ×2 (08:08→23:23)
[2017-09-26] MEDS: SEVELAMER 800 MG TAB PO SCH ×3 (08:09→18:05)
[2017-09-26] MEDS: PANTOPRAZOLE (EC) 40 MG TAB PO SCH (08:09)
[2017-09-26] MEDS: ROPINIROLE 1 MG TAB PO PRN ×2 (08:09→21:18)
[2017-09-26] MEDS: BISACODYL (EC) 5 MG TAB PO PRN (08:31)
[2017-09-26] MEDS: DOCUSATE SODIUM 100 MG CAP PO PRN (08:32)
[2017-09-26] MEDS: HEPARIN 5,000 UNIT/0.5 ML VIAL SC SCH ×2 (09:00→21:00)
[2017-09-26] MEDS: LOSARTAN 25 MG TAB PO SCH (09:00)
[2017-09-26] MEDS: COLLAGENASE 30 GM TUBE TOP SCH (09:00)
[2017-09-26] MEDS: MUPIROCIN 2% 22 GM OINT TOP SCH ×2 (09:00→21:11)
[2017-09-26] MEDS: ALLOPURINOL 100 MG TAB PO SCH (10:21)
[2017-09-26] MEDS: ASPIRIN 81 MG TAB PO SCH (10:21)
[2017-09-26] MEDS: RANOLAZINE (SR) 500 MG TAB PO SCH ×2 (10:21→21:10)
[2017-09-26] MEDS: HYDROmorphONE 1 MG/ML SYG IV PRN ×2 (13:42→19:06)
[2017-09-26] MEDS: ZOLPIDEM 5 MG TAB PO PRN (21:18)
[2017-09-27] VITALS (11 sets, daily range): BP systolic 114–138; BP diastolic 51–63; PULSE 75–86; RESP 19–20
[2017-09-27] MEDS: HYDROmorphONE 1 MG/ML SYG IV PRN ×4 (01:34→19:54)
[2017-09-27] MEDS: SEVELAMER 800 MG TAB PO SCH ×3 (08:31→17:31)
[2017-09-27] MEDS: RANOLAZINE (SR) 500 MG TAB PO SCH ×2 (08:31→20:38)
[2017-09-27] MEDS: ALLOPURINOL 100 MG TAB PO SCH (08:31)
[2017-09-27] MEDS: LOSARTAN 25 MG TAB PO SCH (08:32)
[2017-09-27] MEDS: ASPIRIN 81 MG TAB PO SCH (08:32)
[2017-09-27] MEDS: HEPARIN 5,000 UNIT/0.5 ML VIAL SC SCH ×2 (08:33→20:38)
[2017-09-27] MEDS: PANTOPRAZOLE (EC) 40 MG TAB PO SCH (08:33)
[2017-09-27] MEDS: MUPIROCIN 2% 22 GM OINT TOP SCH ×2 (08:34→20:38)
[2017-09-27] MEDS: COLLAGENASE 30 GM TUBE TOP SCH (08:34)
[2017-09-27] MEDS: ROPINIROLE 1 MG TAB PO PRN ×2 (08:42→20:38)
[2017-09-27] MEDS: HYDROCODONE/APAP (5/325) TAB PO PRN (14:07)
[2017-09-27] MEDS: DOCUSATE SODIUM 100 MG CAP PO PRN (14:11)
[2017-09-27] MEDS: BISACODYL (EC) 5 MG TAB PO PRN (14:11)
--- NOTE | 2017-09-27 15:07 | CONS ---
Date/Time of Note Date/Time of Note DATE: 09/27/17 TIME: 15:03 Assessment/Plan Assessment/Plan Chief Complaint/Hosp Course 1. End-stage renal disease on maintenance hemodialysis. He is due for hemodialysis tomorrow. Dialysis has been ordered for tomorrow 2. Cardiomyopathy 3. Recurrent left pleural effusions now with a Pleurx tube in place. 4. Anemia of chronic kidney disease Problems: Consultation Date/Type/Reason Admit Date/Time Sep 07, 2017 at 14:16 Initial Consult Date 09/10/17 Type of Consultation: neph Referring Provider: POP BOYCE MD 24 HR Interval Summary Free Text/Dictation He is awake and alert without any new complaints. Exam/Review of Systems Vital Signs Vitals Vital Signs Date Time Temp Pulse Resp B/P Pulse Ox O2 Delivery O2 Flow Rate FiO2 09/27/17 12:14 97.5 81 20 138/61 98 09/27/17 08:10 Venti Mask 13.0 09/25/17 08:43 35 Intake and Output 09/26/17 09/26/17 09/27/17 15:00 23:00 07:00 Intake Total 480 ml 350 ml Output Total 5 ml Balance 475 ml 350 ml Exam Constitutional: alert, frail, oriented Respiratory: clear to auscultation Cardiovascular: regular rate and rhythm Gastrointestinal: soft Musculoskeletal: nl extremities to inspection Results Result Diagram: 09/24/1780409/24/17804 Medications Medications Current Medications Allopurinol (Zyloprim) 100 mg DAILY PO Last administered on 09/27/17 08:31; Admin Dose 100 MG; Start 09/08/17 at 09:00 Aspirin (Aspirin) 81 mg DAILY PO Last administered on 09/27/17 08:32; Admin Dose 81 MG; Start 09/08/17 at 09:00 Clopidogrel Bisulfate (plaVIX) 75 mg QHS PO Last administered on 09/13/17 21: 28; Admin Dose 75 MG; Start 09/07/17 at 21:00; Status Future Hold Losartan Potassium (Cozaar) 25 mg DAILY PO Last administered on 09/27/17 08: 32; Admin Dose 25 MG; Start 09/08/17 at 09:00 Ranolazine (Ranexa) 500 mg Q12 PO Last administered on 09/27/17 08:31; Admin Dose 500 MG; Start 09/07/17 at 21:00 Zolpidem Tartrate (Ambien) 7.5 mg QHS PRN PO INSOMNIA Last administered on 09/26 21:18; Admin Dose 7.5 MG; Start 09/07/17 at 15:30 Ondansetron HCl (Zofran Tab) 4 mg Q6H PRN PO NAUSEA AND/OR VOMITING Last administered on 09/15/17 05:15; Admin Dose 4 MG; Start 09/07/17 at 15:30 Ondansetron HCl (Zofran Inj) 4 mg Q6H PRN IV NAUSEA AND/OR VOMITING Last administered on 09/23/17 01:55; Admin Dose 4 MG; Start 09/07/17 at 15:30 Acetaminophen (Tylenol Tab) 650 mg Q6H PRN PO PAIN LEVEL 1-3 OR FEVER Last administered on 09/24/17 21:38; Admin Dose 650 MG; Start 09/07/17 at 15:30 Acetaminophen/ Hydrocodone Bitart ([place] (5/325)) 1 tab Q6H PRN PO MODERATE PAIN LEVEL 4-6 Last administered on 09/27/17 14:07; Admin Dose 1 TAB; Start 09/07/17 at 15:30 Docusate Sodium (Colace) 100 mg Q12H PRN PO CONSTIPATION Last administered on 09/27/17 14:11; Admin Dose 100 MG; Start 09/07/17 at 15:30 Bisacodyl (Dulcolax) 5 mg DAILY PRN PO CONSTIPATION Last administered on 14:11; Admin Dose 5 MG; Start 09/07/17 at 15:30 Bisacodyl (Dulcolax Supp) 10 mg DAILY PRN [place] CONSTIPATION; Start 09/07/17 at 15:30 Heparin Sodium (Porcine) (Heparin (5000 Units/0.5 ml)) 5,000 unit BID SC Last administered on 09/13/17 08:52; Admin Dose 5,000 UNIT; Start 09/09/17 at 09: 00 Mupirocin (Bactroban) 1 applic BID TOP Last administered on 09/27/17 08:34; Admin Dose 1 APPLIC; Start 09/09/17 at 21:00 Alprazolam (Xanax) 0.25 mg Q6H PRN PO ANXIETY Last administered on 09/15/17 05:09; Admin Dose 0.25 MG; Start 09/12/17 at 10:15 Hydromorphone HCl (Dilaudid) 1 mg Q2H PRN IV severe pain Last administered on 09/27/17 08:29; Admin Dose 1 MG; Start 09/15/17 at 22:00 Ropinirole HCl (Requip) 1 mg Q6H PRN PO MUSCLE SPASMS Last administered on 08:42; Admin Dose 1 MG; Start 09/21/17 at 14:00 Collagenase (Santyl) 1 applic DAILY TOP Last administered on 09/27/17 08:34; Admin Dose 1 APPLIC; Start 09/22/17 at 09:00 Collagenase (Santyl) 1 applic PRN PRN TOP WOUND CARE; Start 09/21/17 at 19:00 RIMMA WEI MD Sep 27, 2017 15:07
--- NOTE | 2017-09-27 15:08 | CONS ---
Date/Time of Note Date/Time of Note DATE: 09/26/17 TIME: 17:01 Assessment/Plan Assessment/Plan Chief Complaint/Hosp Course 1. End-stage renal disease on maintenance hemodialysis he was dialyzed today. He is next due for dialysis in 2 days. 2. Cardiomyopathy 3. Recurrent pleural effusions. He now has a Pleurx drainage tube in the left pleural space. 4. Discharge planning in progress. Problems: Consultation Date/Type/Reason Admit Date/Time Sep 07, 2017 at 14:16 Initial Consult Date 09/10/17 Type of Consultation: neph Referring Provider: POP BOYCE MD 24 HR Interval Summary Free Text/Dictation Patient is awake and alert. He has no new complaints. He had a left chest Pleurx tube inserted. Constitutional: no complaints Exam/Review of Systems Vital Signs Vitals Vital Signs Date Time Temp Pulse Resp B/P Pulse Ox O2 Delivery O2 Flow Rate FiO2 09/26/17 16:27 98.0 92 20 146/76 92 09/26/17 15:19 15.0 09/26/17 08:39 Venti Mask 09/25/17 08:43 35 Intake and Output 09/25/17 09/25/17 09/26/17 14:59 22:59 06:59 Intake Total 600 ml 700 ml Output Total 3000 ml Balance -2400 ml 700 ml Exam Constitutional: alert, frail, oriented ENMT: nl external ears & nose, nl lips & teeth, nl nasal mucosa & septum Neck: non-tender, supple Respiratory: diminished breath sounds Cardiovascular: regular rate and rhythm Gastrointestinal: non-tender, soft Musculoskeletal: nl extremities to inspection Results Result Diagram: 09/24/1780409/24/17804 Medications Medications Current Medications Allopurinol (Zyloprim) 100 mg DAILY PO Last administered on 09/26/17 10:21; Admin Dose 100 MG; Start 09/08/17 at 09:00 Aspirin (Aspirin) 81 mg DAILY PO Last administered on 09/26/17 10:21; Admin Dose 81 MG; Start 09/08/17 at 09:00 Clopidogrel Bisulfate (plaVIX) 75 mg QHS PO Last administered on 09/13/17 21: 28; Admin Dose 75 MG; Start 09/07/17 at 21:00; Status Future Hold Losartan Potassium (Cozaar) 25 mg DAILY PO Last administered on 09/12/17 08: 43; Admin Dose 25 MG; Start 09/08/17 at 09:00 Ranolazine (Ranexa) 500 mg Q12 PO Last administered on 09/26/17 10:21; Admin Dose 500 MG; Start 09/07/17 at 21:00 Zolpidem Tartrate (Ambien) 7.5 mg QHS PRN PO INSOMNIA Last administered on 09/25 20:45; Admin Dose 7.5 MG; Start 09/07/17 at 15:30 Ondansetron HCl (Zofran Tab) 4 mg Q6H PRN PO NAUSEA AND/OR VOMITING Last administered on 09/15/17 05:15; Admin Dose 4 MG; Start 09/07/17 at 15:30 Ondansetron HCl (Zofran Inj) 4 mg Q6H PRN IV NAUSEA AND/OR VOMITING Last administered on 09/23/17 01:55; Admin Dose 4 MG; Start 09/07/17 at 15:30 Acetaminophen (Tylenol Tab) 650 mg Q6H PRN PO PAIN LEVEL 1-3 OR FEVER Last administered on 09/24/17 21:38; Admin Dose 650 MG; Start 09/07/17 at 15:30 Acetaminophen/ Hydrocodone Bitart ([place] (5/325)) 1 tab Q6H PRN PO MODERATE PAIN LEVEL 4-6 Last administered on 09/26/17 08:08; Admin Dose 1 TAB; Start at 15:30 Docusate Sodium (Colace) 100 mg Q12H PRN PO CONSTIPATION Last administered on 09/26/17 08:32; Admin Dose 100 MG; Start 09/07/17 at 15:30 Bisacodyl (Dulcolax) 5 mg DAILY PRN PO CONSTIPATION Last administered on 08:31; Admin Dose 5 MG; Start 09/07/17 at 15:30 Bisacodyl (Dulcolax Supp) 10 mg DAILY PRN [place] CONSTIPATION; Start 09/07/17 at 15:30 Heparin Sodium (Porcine) (Heparin (5000 Units/0.5 ml)) 5,000 unit BID SC Last administered on 09/13/17 08:52; Admin Dose 5,000 UNIT; Start 09/09/17 at 09: 00 Mupirocin (Bactroban) 1 applic BID TOP Last administered on 09/26/17 09:00; Admin Dose 1 APPLIC; Start 09/09/17 at 21:00 Alprazolam (Xanax) 0.25 mg Q6H PRN PO ANXIETY Last administered on 09/15/17 05:09; Admin Dose 0.25 MG; Start 09/12/17 at 10:15 Hydromorphone HCl (Dilaudid) 1 mg Q2H PRN IV severe pain Last administered on 09/26/17 13:42; Admin Dose 1 MG; Start 09/15/17 at 22:00 Ropinirole HCl (Requip) 1 mg Q6H PRN PO MUSCLE SPASMS Last administered on 09/26 08:09; Admin Dose 1 MG; Start 09/21/17 at 14:00 Collagenase (Santyl) 1 applic DAILY TOP Last administered on 09/26/17 09:00; Admin Dose 1 APPLIC; Start 09/22/17 at 09:00 Collagenase (Santyl) 1 applic PRN PRN TOP WOUND CARE; Start 09/21/17 at 19:00 RIMMA WEI MD Sep 26, 2017 17:11
[2017-09-27] MEDS: ONDANSETRON 4 MG TAB PO PRN (16:17)
[2017-09-27] MEDS: ONDANSETRON 4 MG INJ IV PRN (16:20)
[2017-09-27] MEDS: ZOLPIDEM 5 MG TAB PO PRN (20:38)
[2017-09-28] VITALS (17 sets, daily range): BP systolic 100–145; BP diastolic 42–66; PULSE 79–89; RESP 18–20
[2017-09-28] MEDS: HYDROmorphONE 1 MG/ML SYG IV PRN ×4 (00:40→16:36)
[2017-09-28] MEDS: ACETAMINOPHEN 325 MG TAB PO PRN (04:55)
--- NOTE | 2017-09-28 07:41 | CONS ---
Date/Time of Note Date/Time of Note DATE: 09/28/17 TIME: 07:37 Assessment/Plan Assessment/Plan Problems: (1) Pleural effusion, left Status: Acute Comment: will f/u CXR post dialysis today (2) Anemia Status: Chronic Comment: controlled on EPO (3) ESRD (end stage renal disease) on dialysis Status: Chronic Comment: for dialysis today (4) Debility Comment: slowly getting up.. has PT involved... hope to dispo soon Consultation Date/Type/Reason Admit Date/Time Sep 07, 2017 at 14:16 Type of Consultation: neph Referring Provider: POP BOYCE MD 24 HR Interval Summary Free Text/Dictation doing better... says got up to chair Exam/Review of Systems Vital Signs Vitals Vital Signs Date Time Temp Pulse Resp B/P Pulse Ox O2 Delivery O2 Flow Rate FiO2 09/28/17 05:47 15.0 09/28/17 04:00 98.0 90 20 119/59 100 09/27/17 20:00 Venti Mask 09/25/17 08:43 35 Intake and Output 09/27/17 09/27/17 09/28/17 15:00 23:00 07:00 Intake Total 500 ml 300 ml Balance 500 ml 300 ml Exam Constitutional: alert, oriented Neck: supple Respiratory: clear to auscultation Cardiovascular: regular rate and rhythm Gastrointestinal: nl liver, spleen, soft Extremities: normal pulses (fxn AVF LUE) Results Result Diagram: 09/24/1780409/24/17804 Medications Medications Current Medications Allopurinol (Zyloprim) 100 mg DAILY PO Last administered on 09/27/17 08:31; Admin Dose 100 MG; Start 09/08/17 at 09:00 Aspirin (Aspirin) 81 mg DAILY PO Last administered on 09/27/17 08:32; Admin Dose 81 MG; Start 09/08/17 at 09:00 Clopidogrel Bisulfate (plaVIX) 75 mg QHS PO Last administered on 09/13/17 21: 28; Admin Dose 75 MG; Start 09/07/17 at 21:00; Status Future Hold Losartan Potassium (Cozaar) 25 mg DAILY PO Last administered on 09/27/17 08: 32; Admin Dose 25 MG; Start 09/08/17 at 09:00 Ranolazine (Ranexa) 500 mg Q12 PO Last administered on 09/27/17 20:38; Admin Dose 500 MG; Start 09/07/17 at 21:00 Zolpidem Tartrate (Ambien) 7.5 mg QHS PRN PO INSOMNIA Last administered on 20:38; Admin Dose 7.5 MG; Start 09/07/17 at 15:30 Ondansetron HCl (Zofran Tab) 4 mg Q6H PRN PO NAUSEA AND/OR VOMITING Last administered on 09/15/17 05:15; Admin Dose 4 MG; Start 09/07/17 at 15:30 Ondansetron HCl (Zofran Inj) 4 mg Q6H PRN IV NAUSEA AND/OR VOMITING Last administered on 09/27/17 16:20; Admin Dose 4 MG; Start 09/07/17 at 15:30 Acetaminophen (Tylenol Tab) 650 mg Q6H PRN PO PAIN LEVEL 1-3 OR FEVER Last administered on 09/28/17 04:55; Admin Dose 650 MG; Start 09/07/17 at 15:30 Acetaminophen/ Hydrocodone Bitart ([place] (5/325)) 1 tab Q6H PRN PO MODERATE PAIN LEVEL 4-6 Last administered on 09/27/17 14:07; Admin Dose 1 TAB; Start 09/07/17 at 15:30 Docusate Sodium (Colace) 100 mg Q12H PRN PO CONSTIPATION Last administered on 09/27/17 14:11; Admin Dose 100 MG; Start 09/07/17 at 15:30 Bisacodyl (Dulcolax) 5 mg DAILY PRN PO CONSTIPATION Last administered on 14:11; Admin Dose 5 MG; Start 09/07/17 at 15:30 Bisacodyl (Dulcolax Supp) 10 mg DAILY PRN [place] CONSTIPATION; Start 09/07/17 at 15:30 Heparin Sodium (Porcine) (Heparin (5000 Units/0.5 ml)) 5,000 unit BID SC Last administered on 09/13/17 08:52; Admin Dose 5,000 UNIT; Start 09/09/17 at 09: 00 Mupirocin (Bactroban) 1 applic BID TOP Last administered on 09/27/17 08:34; Admin Dose 1 APPLIC; Start 09/09/17 at 21:00 Alprazolam (Xanax) 0.25 mg Q6H PRN PO ANXIETY Last administered on 09/15/17 05:09; Admin Dose 0.25 MG; Start 09/12/17 at 10:15 Hydromorphone HCl (Dilaudid) 1 mg Q2H PRN IV severe pain Last administered on 09/28/17 00:40; Admin Dose 1 MG; Start 09/15/17 at 22:00 Ropinirole HCl (Requip) 1 mg Q6H PRN PO MUSCLE SPASMS Last administered on 20:38; Admin Dose 1 MG; Start 09/21/17 at 14:00 Collagenase (Santyl) 1 applic DAILY TOP Last administered on 09/27/17 08:34; Admin Dose 1 APPLIC; Start 09/22/17 at 09:00 Collagenase (Santyl) 1 applic PRN PRN TOP WOUND CARE; Start 09/21/17 at 19:00 POP BOYCE MD Sep 28, 2017 07:41
[2017-09-28] MEDS: SEVELAMER 800 MG TAB PO SCH ×3 (08:46→17:46)
[2017-09-28] MEDS: PANTOPRAZOLE (EC) 40 MG TAB PO SCH (08:46)
[2017-09-28] MEDS: RANOLAZINE (SR) 500 MG TAB PO SCH ×2 (08:46→20:51)
[2017-09-28] MEDS: HEPARIN 5,000 UNIT/0.5 ML VIAL SC SCH ×2 (08:47→21:00)
[2017-09-28] MEDS: LOSARTAN 25 MG TAB PO SCH (08:49)
[2017-09-28] MEDS: MUPIROCIN 2% 22 GM OINT TOP SCH ×2 (08:49→20:52)
[2017-09-28] MEDS: COLLAGENASE 30 GM TUBE TOP SCH (08:49)
[2017-09-28] MEDS: ASPIRIN 81 MG TAB PO SCH (08:49)
[2017-09-28] MEDS: ALLOPURINOL 100 MG TAB PO SCH (08:50)
--- NOTE | 2017-09-28 14:49 | RADRPT ---
PROCEDURE: XR portable chest CLINICAL INDICATION: Pleural effusion TECHNIQUE: Portable semi upright chest radiograph COMPARISON: Portable semi upright chest radiograph 09/24/2017 FINDINGS: Slight worsening of right mid lung zone opacity. No other significant interval changes seen. IMPRESSION: 1. Slight worsening of right mid lung zone opacity which could be secondary to edema, atelectasis o r pneumonia RPTAT: TT Elle Malik Physician Date Time Electronically viewed and signed by Elle Malik Physician on 09/28/2017 14:49 JS/
[2017-09-28] MEDS ORDERED: HYDROmorphONE 4 MG TAB PO PRN (19:30)
[2017-09-28] MEDS: ZOLPIDEM 5 MG TAB PO PRN (21:47)
[2017-09-28] MEDS: ROPINIROLE 1 MG TAB PO PRN (21:47)
[2017-09-28] MEDS: ALBUTEROL/IPRATROPIUM (NEB) 3 ML AMP HHN PRN (22:37)
[2017-09-28] MEDS ORDERED: HYDROmorphONE 1 MG/ML SYG IV PRN (23:00)
[2017-09-29] VITALS (11 sets, daily range): BP systolic 129–156; BP diastolic 56–72; PULSE 92–98; RESP 18–22
[2017-09-29] MEDS: PANTOPRAZOLE (EC) 40 MG TAB PO SCH (06:40)
--- NOTE | 2017-09-29 07:55 | CONS ---
Date/Time of Note Date/Time of Note DATE: 09/29/17 TIME: 07:51 Assessment/Plan Assessment/Plan Problems: (1) Acute low back pain Comment: discussed... will d/c ALL IV meds today... only Percocet prn (2) Debility Comment: PT today.. will see about d/c home tomorrow post HD (3) ESRD (end stage renal disease) on dialysis Status: Chronic Comment: for HD early tomorrow am... then poss d/c home.. discussed w pt (4) Pleural effusion, left Status: Acute Comment: resolved on CXR yesterday...PleurX in place for prn use... will need PleurX bottles to be at home for prn use Consultation Date/Type/Reason Admit Date/Time Sep 07, 2017 at 14:16 Type of Consultation: neph Referring Provider: POP BOYCE MD 24 HR Interval Summary Free Text/Dictation better... discussed his pain meds.. will STOP all IV narcotics today and see if can then be d/c home tomorrow OFF all IV meds Exam/Review of Systems Vital Signs Vitals Vital Signs Date Time Temp Pulse Resp B/P Pulse Ox O2 Delivery O2 Flow Rate FiO2 09/29/17 06:00 15.0 09/29/17 04:13 97.7 100 18 129/56 98 09/28/17 22:37 Venti Mask 09/25/17 08:43 35 Intake and Output 09/28/17 09/28/17 09/29/17 15:00 23:00 07:00 Intake Total 400 ml 1200 ml 450 ml Output Total 2400 ml 0 ml Balance -2000 ml 1200 ml 450 ml Exam Constitutional: alert, oriented Head: normocephalic Eyes: nl conjunctiva Neck: supple Respiratory: clear to auscultation Cardiovascular: regular rate and rhythm Gastrointestinal: soft Extremities: normal pulses (fxn LUE AVF) Medications Medications Current Medications Allopurinol (Zyloprim) 100 mg DAILY PO Last administered on 09/27/17 08:31; Admin Dose 100 MG; Start 09/08/17 at 09:00 Aspirin (Aspirin) 81 mg DAILY PO Last administered on 09/27/17 08:32; Admin Dose 81 MG; Start 09/08/17 at 09:00 Clopidogrel Bisulfate (plaVIX) 75 mg QHS PO Last administered on 09/13/17 21: 28; Admin Dose 75 MG; Start 09/07/17 at 21:00; Status Future Hold Losartan Potassium (Cozaar) 25 mg DAILY PO Last administered on 09/27/17 08: 32; Admin Dose 25 MG; Start 09/08/17 at 09:00 Ranolazine (Ranexa) 500 mg Q12 PO Last administered on 09/28/17 20:51; Admin Dose 500 MG; Start 09/07/17 at 21:00 Zolpidem Tartrate (Ambien) 7.5 mg QHS PRN PO INSOMNIA Last administered on 21:47; Admin Dose 7.5 MG; Start 09/07/17 at 15:30 Ondansetron HCl (Zofran Tab) 4 mg Q6H PRN PO NAUSEA AND/OR VOMITING Last administered on 09/15/17 05:15; Admin Dose 4 MG; Start 09/07/17 at 15:30 Ondansetron HCl (Zofran Inj) 4 mg Q6H PRN IV NAUSEA AND/OR VOMITING Last administered on 09/27/17 16:20; Admin Dose 4 MG; Start 09/07/17 at 15:30 Acetaminophen (Tylenol Tab) 650 mg Q6H PRN PO PAIN LEVEL 1-3 OR FEVER Last administered on 09/28/17 04:55; Admin Dose 650 MG; Start 09/07/17 at 15:30 Acetaminophen/ Hydrocodone Bitart ([place] (5/325)) 1 tab Q6H PRN PO MODERATE PAIN LEVEL 4-6 Last administered on 09/27/17 14:07; Admin Dose 1 TAB; Start 09/07/17 at 15:30 Docusate Sodium (Colace) 100 mg Q12H PRN PO CONSTIPATION Last administered on 09/27/17 14:11; Admin Dose 100 MG; Start 09/07/17 at 15:30 Bisacodyl (Dulcolax) 5 mg DAILY PRN PO CONSTIPATION Last administered on 14:11; Admin Dose 5 MG; Start 09/07/17 at 15:30 Bisacodyl (Dulcolax Supp) 10 mg DAILY PRN [place] CONSTIPATION; Start 09/07/17 at 15:30 Heparin Sodium (Porcine) (Heparin (5000 Units/0.5 ml)) 5,000 unit BID SC Last administered on 09/28/17 08:47; Admin Dose 5,000 UNIT; Start 09/09/17 at 09: 00 Mupirocin (Bactroban) 1 applic BID TOP Last administered on 09/28/17 20:52; Admin Dose 1 APPLIC; Start 09/09/17 at 21:00 Alprazolam (Xanax) 0.25 mg Q6H PRN PO ANXIETY Last administered on 09/15/17 05:09; Admin Dose 0.25 MG; Start 09/12/17 at 10:15 Ropinirole HCl (Requip) 1 mg Q6H PRN PO MUSCLE SPASMS Last administered on 21:47; Admin Dose 1 MG; Start 09/21/17 at 14:00 Collagenase (Santyl) 1 applic DAILY TOP Last administered on 09/28/17 08:49; Admin Dose 1 APPLIC; Start 09/22/17 at 09:00 Collagenase (Santyl) 1 applic PRN PRN TOP WOUND CARE; Start 09/21/17 at 19:00 Hydromorphone HCl (Dilaudid) 1 mg Q2H PRN IV PAIN LEVEL 8-10 Last administered on 09/28/17 23:11; Admin Dose 1 MG; Start 09/28/17 at 23:00 POP BOYCE MD Sep 29, 2017 07:55
[2017-09-29] MEDS ORDERED: OXYCODONE/ACETAMINOPHEN (5/325) TAB PO PRN (08:00)
[2017-09-29] MEDS: RANOLAZINE (SR) 500 MG TAB PO SCH ×2 (08:24→20:15)
[2017-09-29] MEDS: ASPIRIN 81 MG TAB PO SCH (08:24)
[2017-09-29] MEDS: SEVELAMER 800 MG TAB PO SCH ×3 (08:24→17:16)
[2017-09-29] MEDS: ROPINIROLE 1 MG TAB PO PRN ×3 (08:24→23:21)
[2017-09-29] MEDS: ALLOPURINOL 100 MG TAB PO SCH (08:24)
[2017-09-29] MEDS: LOSARTAN 25 MG TAB PO SCH (08:25)
[2017-09-29] MEDS: MUPIROCIN 2% 22 GM OINT TOP SCH ×2 (08:25→20:18)
[2017-09-29] MEDS: HEPARIN 5,000 UNIT/0.5 ML VIAL SC SCH ×2 (08:25→20:16)
[2017-09-29] MEDS: COLLAGENASE 30 GM TUBE TOP SCH (08:25)
[2017-09-29] MEDS: DOCUSATE SODIUM 100 MG CAP PO PRN ×2 (08:44→23:21)
[2017-09-29] MEDS: BISACODYL (EC) 5 MG TAB PO PRN ×2 (08:44→23:21)
[2017-09-29] MEDS: ALBUTEROL/IPRATROPIUM (NEB) 3 ML AMP HHN PRN ×2 (12:42→21:04)
[2017-09-29] MEDS: ALPRAZOLAM 0.25 MG TAB PO PRN (20:13)
[2017-09-29] MEDS: ZOLPIDEM 5 MG TAB PO PRN (23:21)
[2017-09-30] VITALS (15 sets, daily range): BP systolic 92–148; BP diastolic 47–67; PULSE 76–98; RESP 16–21
--- NOTE | 2017-09-30 08:04 | PN ---
Date/Time of Note Date/Time of Note DATE: 09/30/17 TIME: 08:01 Assessment/Plan VTE Prophylaxis VTE Prophylaxis Intervention: other Lines/Catheters IV Catheter Type (from Nrs): [place] [facility] Urinary Cath still in place: No Assessment/Plan Assessment/Plan 1. CKD, to be dialyzed today 2. DM, diet controlled. 3. Chronic CHF, now compensated. 4. ASHD, now asx 5. Recurrent pleural effusions, now stable 6. Can dc after HD today Subjective 24 Hr Interval Summary Respiratory: cough (is slight and not productive), shortness of breath (is mild and unchanged last several days) Cardiovascular: No chest pain Gastrointestinal: no complaints Genitourinary: no complaints Exam/Review of Systems Vital Signs Vitals Vital Signs Date Time Temp Pulse Resp B/P Pulse Ox O2 Delivery O2 Flow Rate FiO2 09/30/17 04:57 15.0 09/30/17 04:14 97.6 82 18 92/47 98 09/29/17 21:05 Venti Mask 50 Intake and Output 09/29/17 09/29/17 09/30/17 15:00 23:00 07:00 Intake Total 1080 ml 900 ml Balance 1080 ml 900 ml Exam Neck: No jvd Respiratory: clear to auscultation, diminished breath sounds Cardiovascular: regular rate and rhythm Gastrointestinal: soft Extremities: No edema, No tenderness Medications Medications Current Medications Allopurinol (Zyloprim) 100 mg DAILY PO Last administered on 09/29/17 08:24; Admin Dose 100 MG; Start 09/08/17 at 09:00 Aspirin (Aspirin) 81 mg DAILY PO Last administered on 09/29/17 08:24; Admin Dose 81 MG; Start 09/08/17 at 09:00 Clopidogrel Bisulfate (plaVIX) 75 mg QHS PO Last administered on 09/13/17 21: 28; Admin Dose 75 MG; Start 09/07/17 at 21:00; Status Future Hold Losartan Potassium (Cozaar) 25 mg DAILY PO Last administered on 09/27/17 08: 32; Admin Dose 25 MG; Start 09/08/17 at 09:00 Ranolazine (Ranexa) 500 mg Q12 PO Last administered on 09/29/17 20:15; Admin Dose 500 MG; Start 09/07/17 at 21:00 Zolpidem Tartrate (Ambien) 7.5 mg QHS PRN PO INSOMNIA Last administered on 23:21; Admin Dose 7.5 MG; Start 09/07/17 at 15:30 Ondansetron HCl (Zofran Tab) 4 mg Q6H PRN PO NAUSEA AND/OR VOMITING Last administered on 09/15/17 05:15; Admin Dose 4 MG; Start 09/07/17 at 15:30 Acetaminophen (Tylenol Tab) 650 mg Q6H PRN PO PAIN LEVEL 1-3 OR FEVER Last administered on 09/28/17 04:55; Admin Dose 650 MG; Start 09/07/17 at 15:30 Acetaminophen/ Hydrocodone Bitart ([place] (5/325)) 1 tab Q6H PRN PO MODERATE PAIN LEVEL 4-6 Last administered on 09/27/17 14:07; Admin Dose 1 TAB; Start 09/07/17 at 15:30 Docusate Sodium (Colace) 100 mg Q12H PRN PO CONSTIPATION Last administered on 09/29/17 23:21; Admin Dose 100 MG; Start 09/07/17 at 15:30 Bisacodyl (Dulcolax) 5 mg DAILY PRN PO CONSTIPATION Last administered on 23:21; Admin Dose 5 MG; Start 09/07/17 at 15:30 Bisacodyl (Dulcolax Supp) 10 mg DAILY PRN [place] CONSTIPATION; Start 09/07/17 at 15:30 Heparin Sodium (Porcine) (Heparin (5000 Units/0.5 ml)) 5,000 unit BID SC Last administered on 09/28/17 08:47; Admin Dose 5,000 UNIT; Start 09/09/17 at 09: 00 Mupirocin (Bactroban) 1 applic BID TOP Last administered on 09/29/17 20:18; Admin Dose 1 APPLIC; Start 09/09/17 at 21:00 Alprazolam (Xanax) 0.25 mg Q6H PRN PO ANXIETY Last administered on 09/29/17 20:13; Admin Dose 0.25 MG; Start 09/12/17 at 10:15 Ropinirole HCl (Requip) 1 mg Q6H PRN PO MUSCLE SPASMS Last administered on 23:21; Admin Dose 1 MG; Start 09/21/17 at 14:00 Collagenase (Santyl) 1 applic DAILY TOP Last administered on 09/29/17t 08:25; Admin Dose 1 APPLIC; Start 09/22/17 at 09:00 Collagenase (Santyl) 1 applic PRN PRN TOP WOUND CARE; Start 09/21/17 at 19:00 Oxycodone/ Acetaminophen (Percocet (5/ 325)) 1 tab Q4H PRN PO PAIN; Start 10/04 at 08:00 ALONZO SERRA MD Sep 30, 2017 08:04
[2017-09-30] MEDS: ALLOPURINOL 100 MG TAB PO SCH (08:14)
[2017-09-30] MEDS: PANTOPRAZOLE (EC) 40 MG TAB PO SCH (08:14)
[2017-09-30] MEDS: ROPINIROLE 1 MG TAB PO PRN (08:14)
[2017-09-30] MEDS: SEVELAMER 800 MG TAB PO SCH ×2 (08:14→11:30)
[2017-09-30] MEDS: ASPIRIN 81 MG TAB PO SCH (08:14)
[2017-09-30] MEDS: RANOLAZINE (SR) 500 MG TAB PO SCH (08:19)
[2017-09-30] MEDS: MUPIROCIN 2% 22 GM OINT TOP SCH (08:20)
[2017-09-30] MEDS: COLLAGENASE 30 GM TUBE TOP SCH (08:20)
[2017-09-30] MEDS: HEPARIN 5,000 UNIT/0.5 ML VIAL SC SCH (08:20)
[2017-09-30] MEDS: LOSARTAN 25 MG TAB PO SCH (08:23)
[2017-09-30] MEDS: BISACODYL (EC) 5 MG TAB PO PRN (11:30)
[2017-09-30] MEDS: DOCUSATE SODIUM 100 MG CAP PO PRN (11:30)
[2017-09-30] MEDS: ACETAMINOPHEN 325 MG TAB PO PRN (15:12)
== END 2017-09-30 15:41 | disposition home health service (06) | DRG 291 ==
LOC: E/R 11:42 → MS4 14:16
PROVIDERS: ADMIT Internal Medicine; ATTEND Internal Medicine
PROC: 0W9B3ZX Drainage of Left Pleural Cavity, Percutaneous Approach, Diagnostic (ICD-10-PCS; principal; 2017-09-08)
PROC: 5A1D70Z Performance of Urinary Filtration, Intermittent, Less than 6 Hours Per Day (ICD-10-PCS; 2017-09-09)
PROC: 0W9B30Z Drainage of Left Pleural Cavity with Drainage Device, Percutaneous Approach (ICD-10-PCS; 2017-09-15)
DX: I13.2 Hypertensive heart and chronic kidney disease with heart failure and with stage 5 chronic kidney disease, or end stage renal disease (principal); J96.01 Acute respiratory failure with hypoxia; I47.2 Ventricular tachycardia; L89.151 Pressure ulcer of sacral region, stage 1; N18.6 End stage renal disease; Z94.0 Kidney transplant status; I50.43 Acute on chronic combined systolic (congestive) and diastolic (congestive) heart failure; J90 Pleural effusion, not elsewhere classified; L89.153 Pressure ulcer of sacral region, stage 3; E11.21 Type 2 diabetes mellitus with diabetic nephropathy; E11.22 Type 2 diabetes mellitus with diabetic chronic kidney disease; Z99.2 Dependence on renal dialysis; Z91.15 Patient's noncompliance with renal dialysis; I25.5 Ischemic cardiomyopathy; I25.10 Atherosclerotic heart disease of native coronary artery without angina pectoris; Z95.1 Presence of aortocoronary bypass graft; Z95.5 Presence of coronary angioplasty implant and graft; Z95.810 Presence of automatic (implantable) cardiac defibrillator; I73.9 Peripheral vascular disease, unspecified; E78.5 Hyperlipidemia, unspecified; G25.81 Restless legs syndrome; F41.9 Anxiety disorder, unspecified; D63.1 Anemia in chronic kidney disease; L89.621 Pressure ulcer of left heel, stage 1; L89.611 Pressure ulcer of right heel, stage 1
CPT/HCPCS: 32555; 36600; 71010; 75989; 80048; 80053; 82042; 82803; 82945; 83615; 83690; 83735; 84100; 84132; 84443; 84484; 85025; 85610; 87070; 87081; 88104; 88305; 89051; 90935; 93005; 93970; 94640; 94664; 97163; J1071; J1170; J1644; J2250; J2405; J2710; J3010; P9047

== ENCOUNTER 2017-10-02 03:07 | Emergency (ER) | payer MEDICARE, OTHER ==
[~2017-10-02] VITALS: Ht 175.3 cm; Wt 77.0 kg
[~2017-10-02 03:07] MED LIST changes: +ASPI81TA3 PO; +NITR0.4T32 SL
[2017-10-02 03:11] VITALS: Ht 175.3 cm; Wt 77.0 kg
[2017-10-02 04:46] LABS: BASOPHIL # 0.1 10^3/ul (0.0-0.1); BASOPHILS % 0.8 % (0.0-2.0); EOSINOPHILS # 0.3 10^3/ul (0.0-0.5); EOSINOPHILS % 3.3 % (0.0-7.0); HEMATOCRIT 33.3 % (42.0-52.0); LYMPHOCYTES # 2.5 10^3/ul (0.8-2.9); LYMPHOCYTES % 33.2 % (15.0-51.0); MEAN CORPUSCULAR HEMOGLOBIN 28.2 pg (29.0-33.0); MEAN CORPUSCULAR VOLUME 94.1 fl (82.0-101.0); MEAN PLATELET VOLUME 10.3 fl (7.4-10.4); MONOCYTE # 0.6 10^3/ul (0.3-0.9); MONOCYTES % 7.2 % (0.0-11.0); NEUTROPHIL # 4.2 10^3/ul (1.6-7.5); NEUTROPHILS % 55.2 % (39.0-77.0); PLATELET COUNT 209 10^3/UL (140-415); RED BLOOD COUNT 3.54 10^6/ul (4.70-6.10); WHITE BLOOD COUNT 7.6 10^3/ul (4.8-10.8)
--- NOTE | 2017-10-02 04:46 | ERD ---
ER Documentation Chief Complaint Chief Complaint BIBRA 90 s/p GLF last night. C/O L sided chest wall bruising & body pain. HPI 71-year-old male brought in by ambulance for left-sided chest wall pain. Patient states that he was sitting on the edge of his bed 2 nights ago when he accidentally slipped onto his buttocks and then fell forward onto his chest on the floor. At that time he did not go to the hospital. Today when his caregiver came to see him home health nurse came to see him, she noted all the bruising on his chest and recommended he be seen in the ER. Patient complains of 8 out of 10 left-sided chest wall and anterior shoulder pain. He denies any shortness of breath that is worse than his usual. Patient is chronically on oxygen for pleural effusions and has a left pleural drain. Otherwise patient denies any other injuries. No back pain, leg pain, upper extremity pain, pelvic pain, or abdominal pain. No head injury or loss of consciousness. ROS All systems reviewed and are negative except as per history of present illness. Medications Home Meds Active Scripts Losartan Potassium* (Losartan Potassium*) 25 Mg Tablet, 25 MG PO DAILY for 90 Days, TAB 3 Refills Prov:POP BOYCE MD 02/06/17 Reported Medications Nitroglycerin* (Nitroglycerin* SL) 0.4 Mg Tab.subl, 0.4 MG SL Q5MIN Y for CHEST PAIN, BOTTLE 09/07/17 Aspirin* (Aspirin* Chew) 81 Mg Tab.chew, 81 MG PO DAILY, TAB.CHEW 09/07/17 Pantoprazole* (Pantoprazole*) 40 Mg Tablet.dr, 40 MG PO AC BREAKFAST, TAB 08/19/17 Ranolazine* (Ranexa*) 500 Mg Tab.sr.12h, 500 MG PO Q12, TAB 01/28/17 Zolpidem Tartrate* (Zolpidem Tartrate*) 5 Mg Tablet, 7.5 MG PO QHS Y for INSOMNIA, #30 TAB 12/01/16 Clopidogrel Bisulfate (Clopidogrel) 75 Mg Tablet, 75 MG PO QHS, #30 TAB 12/01/16 Alprazolam* (Alprazolam*) 0.25 Mg Tablet, 0.25 MG PO QHS Y for ANXIETY, TAB 12/01/16 Allopurinol* (Allopurinol*) 100 Mg Tablet, 100 MG PO DAILY, TAB 12/01/16 Allergies Allergies: Coded Allergies: No Known Drug Allergies (Verified Allergy, Unknown, 09/09/17) PMhx/Soc History of Surgery: Yes (KIDNEY TRANSPLANT, 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, 2 HIP REPLACMENTS, CATARACT SX, TONSILLECTOMY) Anesthesia Reaction: No Hx Neurological Disorder: Yes (Neuropathy) Hx Respiratory Disorders: Yes (Pleural effusion, O2 dependent) Hx Cardiac Disorders: Yes (HTN, HYPERLIPIDEMIA, PACEMAKER, STENT PLACEMENT, CARDIOMYOPATHY) Hx Psychiatric Problems: No 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 Neck: Full range of motion..~ No meningismus. No C-spine tenderness . 2+ radial Extensive bruising and swelling of the left anterior chest with no crepitus or palpable rib deformities. Clavicle is stable with no deformities or significant tenderness on palpation. Resp: Clear to auscultation bilaterally Cardio: Regular rate and rhythm, no murmurs Abd: Soft, non tender, non distended. Normal bowel sounds Skin: No petechiae or rashes Back: No midline or flank tenderness Ext: No cyanosis, or edema pulses bilaterally. 2+ distal PT and DP pulses bilaterally. Extremities with no obvious deformities and normal to palpation. Full range of motion of all joints except the left shoulder joint which is limited by pain., Oriented, cranial nerves intact, Neur: Awake and alert strength grossly intact. Patient chronically bedbound so not ambulated Psych: Normal Mood and Affect Result Diagram: 10/02/17 0335 10/02/17 0335 Results 24 hrs Laboratory Tests Test 10/02/17 03:35 White Blood Count 7.610^3/ul Red Blood Count 3.5410^6/ul Hemoglobin 10.0g/dl Hematocrit 33.3% Mean Corpuscular Volume 94.1fl Mean Corpuscular Hemoglobin 28.2pg Mean Corpuscular Hemoglobin Concent 30.0g/dl Red Cell Distribution Width 17.0% Platelet Count 53808^3/UL Mean Platelet Volume 10.3fl Neutrophils % 55.2% Lymphocytes % 33.2% Monocytes % 7.2% Eosinophils % 3.3% Basophils % 0.8% Nucleated Red Blood Cells % 0.0/100WBC Neutrophils # 4.210^3/ul Lymphocytes # 2.510^3/ul Monocytes # 0.610^3/ul Eosinophils # 0.310^3/ul Basophils # 0.110^3/ul Nucleated Red Blood Cells # 0.010^3/ul Prothrombin Time 14.2Sec Prothrombin Time Ratio 1.1 INR International Normalized Ratio 1.09 Activated Partial Thromboplast Time 43.9Sec Sodium Level 139mmol/L Potassium Level 4.3mmol/L Chloride Level 99mmol/L Carbon Dioxide Level 23mmol/L Anion Gap 21 Blood Urea Nitrogen 52mg/dl Creatinine 5.27mg/dl Glucose Level 75mg/dl Calcium Level 10.0mg/dl Total Bilirubin 0.1mg/dl Direct Bilirubin 0.00mg/dl Indirect Bilirubin 0.1mg/dl Aspartate Amino Transf (AST/SGOT) 26IU/L Alanine Aminotransferase (ALT/SGPT) 17IU/L Alkaline Phosphatase 386IU/L Troponin I 0.053ng/ml Total Protein 7.3g/dl Albumin 3.8g/dl Procedures/MDM Labs reviewed by me: CBC shows mild anemia, chronic CMP shows elevated BUN and creatinine, chronic when compared to old records Trop within normal limits Imaging reviewed by me, read by radiology CT chest: No significant traumatic abnormalities. Bilateral pleural effusions and left pleural drain noted. EKG: Rate/Rhythm: Sinus tachycardia at 102 bpm QRS, ST, T-waves: left axis deviation, left bundle branch block,No changes consistent w/ acute ischemia Impression: No evidence of ischemia or arrhythmia [facility] Patient is presenting with left anterior chest wall trauma after sliding out of bed. Patient is normally bedbound and was not trying to get out of bed when he fell. His vitals are stable on his home dosage of oxygen. He does not seem to be in any distress. CT of the chest did not show evidence of pneumothorax, rib fractures, pulmonary contusion, or other traumatic abnormalities. At this time I believe patient is stable for discharge with continued outpatient follow- up by his primary care doctor. The chest x-ray did show evidence of a right- sided consolidation, however the patient has no symptoms of a pneumonia, so I am less suspicious for this. Patient will be transported to dialysis immediately after discharge from the ER Departure Diagnosis: Primary Impression: Contusion of left chest wall Encounter type: initial encounter Qualified Code: S20.212A - Contusion of left chest wall, initial encounter Additional Impression: Fall Encounter type: initial encounter Qualified Code: W19.XXXA - Fall, initial encounter Condition: Stable ROSEMARIE PALENCIA MD Oct 02, 2017 04:46
[2017-10-02 04:50] LABS: INR 1.09; PROTIME 14.2 Sec (11.9-14.9); PT RATIO 1.1
[2017-10-02 04:51] LABS: PARTIAL THROMBOPLASTIN TIME 43.9 Sec (25.0-35.0)
[2017-10-02 05:05] LABS: ALBUMIN 3.8 g/dl (3.3-4.9); BILIRUBIN,INDIRECT 0.1 mg/dl (0-1.1); BILIRUBIN,TOTAL 0.1 mg/dl (0.2-1.3); CREATININE 5.27 mg/dl (0.61-1.24); POTASSIUM 4.3 mmol/L (3.5-5.1); TOTAL PROTEIN 7.3 g/dl (6.1-8.1)
[2017-10-02 05:15] LABS: TROPONIN-I 0.053 ng/ml (0.00-0.12)
--- NOTE | 2017-10-02 05:40 | RADRPT ---
PROCEDURE: CT Chest without contrast. CLINICAL INDICATION: Left anterior chest wall pain status post trauma TECHNIQUE: CT scan of the chest without contrast was performed on a multidetector high-resolution CT scanner. Coronal and sagittal reformatted images were obtained from the axial source images. The total exam CTDI equals 12.59 mGy and the total exam DLP equals 515.93 mGy-cm. DICOM images are avai lable. One of the following 3 dose reduction techniques were used during this CT examination: 1) Automated exposure control 2) Adjustment of the mA +/- kV according to patient size or 3) Use of iterative reconstruction technique COMPARISON: Chest x-ray 09/28/[address] chest 06/26/2017 FINDINGS: The visualized base of the neck and bilateral thyroid lobes are normal. A left apical chest tube is present. A right precordial combination AICD and pacemaker is present. Right upper lobe consolidatio n or atelectasis is present with a large right pleural effusion. A small left pleural effusion is pr esent with associated left lower lobe atelectasis and fluid coarsening in the major fissure. No evid ence for pulmonary nodules, masses, or pneumothorax are present. The central tracheobronchial tree is clear. The mediastinum is unremarkable without evidence for mass or lymphadenopathy. The vascular structur es of the mediastinum are normal in course and caliber. Aortic vascular calcifications and coronary artery calcifications are present. The heart size is remarkable for mild cardiomegaly with mild p ericardial thickening or effusion measuring a maximum of 3 mm. The visualized liver is diffusely fatty infiltrated without focal lesions. The visualized spleen, pa ncreas, and stomach are normal. The gallbladder demonstrates cholelithiasis present. No evidence of gallbladder wall thickening is present. A minimal amount of fluid is noted in Morison's pouch with m ild ascites surrounding the liver. Consider additional imaging of the gallbladder as clinically michael cated para Degenerative spondylosis is present of the imaged spine The axillary regions are remarkab le for right axillary vascular stent. The subpectoral regions, and supraclavicular regions are all u nremarkable. The surrounding chest wall is unremarkable. The surrounding osseous structures are remarkable for degenerative spondylosis of the spine. No ost eolytic or osteoblastic lesion is detected. IMPRESSION: 1. Right precordial combination AICD and pacemaker , right axillary stent, and left apical chest tu be. 2. No pneumothorax 3. Right lower lobe consolidation and large right pleural effusion. 3. Mild left lower lobe atelectasis and small left pleural effusion with thick extension into the l eft major fissure. 4. Mild cardiomegaly and small pericardial effusion 6. Atherosclerotic vascular disease 7. Mild diffuse fatty infiltration of the liver with mild abdominal ascites 8. Cholelithiasis without definite evidence for acute cholecystitis. Recommend ultrasound to [facility] r evaluate RPTAT: HDC .Magdalena Tripp MD, MD Date Time Electronically viewed and signed by .Magdalena Tripp MD, MD on 10/02/2017 05:39 .C/
--- NOTE | 2017-10-02 05:44 | RADRPT ---
PROCEDURE: XR left shoulder. CLINICAL INDICATION: Trauma, pain TECHNIQUE: AP, internal and external rotation, and transscapular views of the left shoulder were pe rformed. COMPARISON: None. FINDINGS: There is decreased osseous mineralization. The alignment is normal.. No acute fracture or osseous lesion is identified. There are normal joints without evidence of arthritis or dislocation. Atherosclerotic calcifications are seen. IMPRESSION: No acute osseous abnormality. Atherosclerosis. Physician Facundo Date Time Electronically viewed and signed by Physician Facundo on 10/02/2017 05:43 CS/
[2017-10-02 05:52] VITALS: TEMP 98.5
[2017-10-02 10:49] VITALS: BP 154/71; PULSE 81; RESP 18
== END 2017-10-02 10:56 | disposition home or self-care (01) ==
LOC: E/R 03:07
DX: S20.212A Contusion of left front wall of thorax, initial encounter (principal); I10 Essential (primary) hypertension; W06.XXXA Fall from bed, initial encounter; Y92.9 Unspecified place or not applicable; Z79.82 Long term (current) use of aspirin; Z95.0 Presence of cardiac pacemaker; Z98.61 Coronary angioplasty status
CPT/HCPCS: 71250; 73030; 80048; 80076; 84484; 85025; 85610; 85730; 93005

== ENCOUNTER 2017-10-06 23:44 | Emergency (ER) | payer MEDICARE, OTHER ==
[~2017-10-06] VITALS: Ht 170.2 cm; Wt 63.0 kg
[2017-10-06 23:56] VITALS: Ht 170.2 cm; Wt 63.0 kg
--- NOTE | 2017-10-07 00:49 | RADRPT ---
PROCEDURE: XR Chest. CLINICAL INDICATION: Chest pain. Sepsis TECHNIQUE: Portable AP view of the chest was obtained. COMPARISON: CT chest 10/02/2017 FINDINGS: The cardiomediastinal silhouette is mildly enlarged . Right subclavian approach AICD is again noted. Opacification of the lower right thorax is compatible with compressive atelectasis seen on the prio r CT. The left basilar atelectasis appears decreased compared to the prior exam. Right larger than left pleural effusions are present and there is mild chronic pulmonary vascular congestion. No pneum othorax is evident. The osseous structures are intact with no evidence for acute abnormality. Sever e atherosclerotic calcification of the left brachial artery is noted with stents partially visualize d in the right arm. Calcification within the thoracic aorta is again noted RPTAT:HJJR IMPRESSION: 1. The right lower lobe opacity consistent with chronic atelectasis in right pleural effusion as see n on the CT of 10/02/2017, not significantly changed allowing for the different modalities. 2. Chronic congestive heart failure pattern in this patient with mild cardiomegaly and AICD. 3. Left basilar atelectasis and left pleural effusion slightly less conspicuous compared to the jp or CT. 4. Extensive arteriosclerotic calcification with a right brachial stents. Physician Willa Date Time Electronically viewed and signed by Jomar Astorga Physician on 10/07/2017 00:49 /
[2017-10-07 01:29] LABS: BASOPHIL # 0.1 10^3/ul (0.0-0.1); BASOPHILS % 0.7 % (0.0-2.0); EOSINOPHILS # 0.2 10^3/ul (0.0-0.5); EOSINOPHILS % 2.2 % (0.0-7.0); HEMATOCRIT 29.4 % (42.0-52.0); HEMOGLOBIN 8.6 g/dl (14.0-18.0); LYMPHOCYTES # 1.2 10^3/ul (0.8-2.9); LYMPHOCYTES % 16.2 % (15.0-51.0); MEAN CORPUSCULAR HEMOGLOBIN 28.7 pg (29.0-33.0); MEAN CORPUSCULAR HGB CONC 29.3 g/dl (32.0-37.0); MEAN PLATELET VOLUME 9.7 fl (7.4-10.4); MONOCYTE # 0.4 10^3/ul (0.3-0.9); MONOCYTES % 4.9 % (0.0-11.0); NEUTROPHIL # 5.4 10^3/ul (1.6-7.5); NEUTROPHILS % 75.7 % (39.0-77.0); PLATELET COUNT 188 10^3/UL (140-415); RED CELL DISTRIBUTION WIDTH 17.6 % (11.5-14.5); WHITE BLOOD COUNT 7.2 10^3/ul (4.8-10.8)
[2017-10-07 01:50] LABS: ALBUMIN/GLOBULIN RATIO 0.88; BILIRUBIN,INDIRECT 0.2 mg/dl (0-1.1); BILIRUBIN,TOTAL 0.2 mg/dl (0.2-1.3); CALCIUM 9.2 mg/dl (8.4-10.2); CREATININE 4.02 mg/dl (0.61-1.24); POTASSIUM 3.5 mmol/L (3.5-5.1); TOTAL PROTEIN 6.4 g/dl (6.1-8.1)
[2017-10-07 02:01] LABS: TROPONIN-I 0.052 ng/ml (0.00-0.12)
[2017-10-07 02:04] LABS: INR 1.03; PROTIME 13.6 Sec (11.9-14.9); PT RATIO 1.1
[2017-10-07 02:05] LABS: PARTIAL THROMBOPLASTIN TIME 38.1 Sec (25.0-35.0)
[2017-10-07] MEDS ORDERED: morphine 4 MG/ML VIAL IV STA (03:12)
--- NOTE | 2017-10-07 03:31 | ERD ---
ER Documentation Chief Complaint Chief Complaint MARC POLLOCK from home,SOB,chest pain,last HD 09/30/2017 HPI This is a 71-year-old male complains of shortness of breath since 6 PM. He said he had some minor chest pain associated with this as well. No nausea no vomiting no chills. No other current complaints. Multiple previous cardiac workups for history of hemodialysis. Last hemodialysis on 1213. No other current complaints. ROS All systems reviewed and are negative except as per history of present illness. Medications Home Meds Active Scripts Losartan Potassium* (Losartan Potassium*) 25 Mg Tablet, 25 MG PO DAILY for 90 Days, TAB 3 Refills Prov:POP BOYCE MD 02/06/17 Reported Medications Nitroglycerin* (Nitroglycerin* SL) 0.4 Mg Tab.subl, 0.4 MG SL Q5MIN Y for CHEST PAIN, BOTTLE 09/07/17 Aspirin* (Aspirin* Chew) 81 Mg Tab.chew, 81 MG PO DAILY, TAB.CHEW 09/07/17 Pantoprazole* (Pantoprazole*) 40 Mg Tablet.dr, 40 MG PO AC BREAKFAST, TAB 08/19/17 Ranolazine* (Ranexa*) 500 Mg Tab.sr.12h, 500 MG PO Q12, TAB 01/28/17 Zolpidem Tartrate* (Zolpidem Tartrate*) 5 Mg Tablet, 7.5 MG PO QHS Y for INSOMNIA, #30 TAB 12/01/16 Clopidogrel Bisulfate (Clopidogrel) 75 Mg Tablet, 75 MG PO QHS, #30 TAB 12/01/16 Alprazolam* (Alprazolam*) 0.25 Mg Tablet, 0.25 MG PO QHS Y for ANXIETY, TAB 12/01/16 Allopurinol* (Allopurinol*) 100 Mg Tablet, 100 MG PO DAILY, TAB 12/01/16 Allergies Allergies: Coded Allergies: No Known Drug Allergies (Verified Allergy, Unknown, 09/09/17) PMhx/Soc History of Surgery: Yes (KIDNEY TRANSPLANT, 15 STENTS, 2 HIP REPLACMENTS, CATARACT SX, TONSILLECTOMY) Anesthesia Reaction: No Hx Neurological Disorder: Yes (Neuropathy) Hx Respiratory Disorders: Yes (Pleural effusion, O2 dependent) Hx Cardiac Disorders: Yes (HTN, HYPERLIPIDEMIA, PACEMAKER, STENT PLACEMENT, CARDIOMYOPATHY) Hx Psychiatric Problems: No Hx Miscellaneous Medical Probl: Yes (Suspicious colon carcinoma) Hx Alcohol Use: Yes Hx Substance Use: No Hx Tobacco Use: No Smoking Status: Never smoker Physical Exam Vitals Vital Signs Date Time Temp Pulse Resp B/P Pulse Ox O2 Delivery O2 Flow Rate FiO2 10/07/17 02:26 98.9 98 18 112/65 100 Nasal Cannula 8.0 10/07/17 00:51 Nasal Cannula 8.0 10/07/17 00:51 Nasal Cannula 8 10/06/17 23:56 98.1 111 18 110/56 99 Physical Exam Const: [] Head: Atraumatic Eyes: Normal Conjunctiva ENT: Normal External Ears, Nose and Mouth. Neck: Full range of motion..~ No meningismus. Resp: Clear to auscultation bilaterally Cardio: Regular rate and rhythm, no murmurs Abd: Soft, non tender, non distended. Normal bowel sounds Skin: No petechiae or rashes Back: No midline or flank tenderness Ext: No cyanosis, or edema Neur: Awake and alert Psych: Normal Mood and Affect Result Diagram: 10/07/1710110/07/17101 Results 24 hrs Laboratory Tests Test 10/07/17 01:02 White Blood Count 7.210^3/ul Red Blood Count 3.0010^6/ul Hemoglobin 8.6g/dl Hematocrit 29.4% Mean Corpuscular Volume 98.0fl Mean Corpuscular Hemoglobin 28.7pg Mean Corpuscular Hemoglobin Concent 29.3g/dl Red Cell Distribution Width 17.6% Platelet Count 14163^3/UL Mean Platelet Volume 9.7fl Neutrophils % 75.7% Lymphocytes % 16.2% Monocytes % 4.9% Eosinophils % 2.2% Basophils % 0.7% Nucleated Red Blood Cells % 0.0/100WBC Neutrophils # 5.410^3/ul Lymphocytes # 1.210^3/ul Monocytes # 0.410^3/ul Eosinophils # 0.210^3/ul Basophils # 0.110^3/ul Nucleated Red Blood Cells # 0.010^3/ul Prothrombin Time 13.6Sec Prothrombin Time Ratio 1.1 INR International Normalized Ratio 1.03 Activated Partial Thromboplast Time 38.1Sec Sodium Level 137mmol/L Potassium Level 3.5mmol/L Chloride Level 95mmol/L Carbon Dioxide Level 29mmol/L Anion Gap 17 Blood Urea Nitrogen 35mg/dl Creatinine 4.02mg/dl Glucose Level 110mg/dl Lactic Acid Level 1.8mmol/L Calcium Level 9.2mg/dl Total Bilirubin 0.2mg/dl Direct Bilirubin 0.00mg/dl Indirect Bilirubin 0.2mg/dl Aspartate Amino Transf (AST/SGOT) 18IU/L Alanine Aminotransferase (ALT/SGPT) 21IU/L Alkaline Phosphatase 219IU/L Troponin I 0.052ng/ml Total Protein 6.4g/dl Albumin 3.0g/dl Globulin 3.40g/dl Albumin/Globulin Ratio 0.88 Current Medications Medications (Trade) Dose Ordered Sig/Leonardo Route PRN Reason Start Time Stop Time Status Last Admin Dose Admin Morphine Sulfate (morphine) 4 mg ONCE STAT IV 10/07/17 03:12 10/07/17 03:13 DC 10/07/17 03:26 Procedures/MDM EKG: Rate/Rhythm: [Normal Sinus Rhythm] QRS, ST, T-waves: [No changes consistent w/ acute ischemia] Impression: [No evidence of ischemia or arrhythmia] Chest X-ray 1V Interpreted by me: Soft Tissue: No acute abnormalities Bones: No acute abnormalities Mediastinum/Cardiac Silhouette/Lungs: [No acute abnormalities] Medical decision-makin-year-old male who comes in with complaints of shortness of breath that is since resolved. At this point clinically stable for outpatient management. No evidence of cardiac disease or fluid overload. Patient's case was discussed with Dr. Small was on-call for Dr. Lujan. Dr. Small agrees with my assessment will follow up with the patient tomorrow. Departure Diagnosis: Primary Impression: Shortness of breath Condition: Stable SAMEERABLASOLIALEKSEY BoswellJason Oct 07, 2017 03:31
[2017-10-07 04:21] VITALS: BP 133/61; PULSE 85; RESP 18; TEMP 98.7
[2017-10-07] MEDS ORDERED: HYDR-3672 PO (22:07)
[2017-10-07] MEDS ORDERED: ISOS30TA5 PO (22:08)
[2017-10-07] MEDS ORDERED: MULTI PO (22:08)
[2017-10-07] MEDS ORDERED: NIFE60TA7 PO (22:10)
[2017-10-07] MEDS ORDERED: FOLI-49 PO (22:12)
[2017-10-07] MEDS ORDERED: EZET10TA3 PO (22:13)
[2017-10-07] MEDS ORDERED: CARV12.579 PO (22:13)
[2017-10-07] MEDS ORDERED: AMLO5TAB4 PO (22:14)
[2017-10-07] MEDS ORDERED: CITA-104 PO (22:17)
[2017-10-07] MEDS ORDERED: SIMV40TA2 PO (22:19)
[2017-10-07] MEDS ORDERED: SEVE800T10 PO (22:19)
[2017-10-07] MEDS ORDERED: CHOLESTEROL PO (22:29)
== END 2017-10-07 04:27 | disposition home or self-care (01) ==
LOC: E/R 23:44
DX: R06.02 Shortness of breath (principal); I10 Essential (primary) hypertension; Z96.643 Presence of artificial hip joint, bilateral; Z95.0 Presence of cardiac pacemaker; Z79.82 Long term (current) use of aspirin; Z79.01 Long term (current) use of anticoagulants; Z98.61 Coronary angioplasty status
CPT/HCPCS: 71010; 80053; 83605; 84484; 85025; 85610; 85730; 87040; 93005; 96374; 99285; J2270

== ENCOUNTER 2017-10-07 20:22 | Inpatient (IN) | payer MEDICARE, OTHER ==
[~2017-10-07] VITALS: Ht 170.2 cm; Wt 63.0 kg
--- NOTE | 2017-10-07 21:23 | RADRPT ---
PROCEDURE: Portable chest x-ray. CLINICAL INDICATION: Chest pain. TECHNIQUE: Portable AP view of the chest. COMPARISON: 04/01/2017 FINDINGS: There is a small to moderate right pleural effusion. Patchy right lung opacity is noted.. There is a right chest cardiac pacemaker / AICD. The cardiac silhouette is magnified. There are aortic calcif ications. No pleural effusion is seen. There is no pneumothorax. There is a vascular stent in the right axillary region. IMPRESSION: 1. Small to moderate right pleural effusion. 2. Patchy right lung opacity, possibly representing pneumonia or asymmetric edema. 3. Aortic atherosclerosis. 4. Cardiac pacemaker / AICD RPTAT: HTAR .Shailesh Ruth MD, MD Date Time Electronically viewed and signed by .Shailesh Ruth MD, on 10/07/2017 21:23 .R/
[2017-10-07 21:51] LABS: BASOPHILS % 0.6 % (0.0-2.0); EOSINOPHILS # 0.1 10^3/ul (0.0-0.5); EOSINOPHILS % 1.8 % (0.0-7.0); HEMATOCRIT 25.9 % (42.0-52.0); HEMOGLOBIN 7.6 g/dl (14.0-18.0); LYMPHOCYTES # 1.3 10^3/ul (0.8-2.9); LYMPHOCYTES % 19.8 % (15.0-51.0); MEAN CORPUSCULAR HEMOGLOBIN 28.6 pg (29.0-33.0); MEAN CORPUSCULAR HGB CONC 29.3 g/dl (32.0-37.0); MEAN CORPUSCULAR VOLUME 97.4 fl (82.0-101.0); MONOCYTE # 0.4 10^3/ul (0.3-0.9); MONOCYTES % 5.7 % (0.0-11.0); NEUTROPHIL # 4.8 10^3/ul (1.6-7.5); NEUTROPHILS % 71.8 % (39.0-77.0); PLATELET COUNT 168 10^3/UL (140-415); RED BLOOD COUNT 2.66 10^6/ul (4.70-6.10); RED CELL DISTRIBUTION WIDTH 18.1 % (11.5-14.5); WHITE BLOOD COUNT 6.6 10^3/ul (4.8-10.8)
[2017-10-07] MEDS ORDERED: HYDR-3672 PO (22:07)
[2017-10-07] MEDS ORDERED: MULTI PO (22:08)
[2017-10-07] MEDS ORDERED: ISOS30TA5 PO (22:08)
[2017-10-07] MEDS ORDERED: NIFE60TA7 PO (22:10)
[2017-10-07] MEDS ORDERED: FOLI-49 PO (22:12)
[2017-10-07] MEDS ORDERED: EZET10TA3 PO (22:13)
[2017-10-07] MEDS ORDERED: CARV12.579 PO (22:13)
[2017-10-07] MEDS ORDERED: AMLO5TAB4 PO (22:14)
[2017-10-07] MEDS ORDERED: CITA-104 PO (22:17)
[2017-10-07] MEDS ORDERED: SIMV40TA2 PO (22:19)
[2017-10-07] MEDS ORDERED: SEVE800T10 PO (22:19)
[2017-10-07] MEDS ORDERED: CHOLESTEROL PO (22:29)
[2017-10-07 22:31] LABS: CALCIUM 8.7 mg/dl (8.4-10.2); CREATININE 2.6 mg/dl (0.61-1.24); POTASSIUM 3.5 mmol/L (3.5-5.1)
[2017-10-07 22:43] LABS: TROPONIN-I 0.043 ng/ml (0.00-0.12)
[2017-10-08] VITALS (9 sets, daily range): BP systolic 98–132; BP diastolic 49–63; PULSE 71–109; RESP 18–26; TEMP 98; Ht 170.2 cm; Wt 63.0 kg
[2017-10-08] MEDS ORDERED: SOD CHLORIDE 0.9% 250 ML IV ONE (00:49)
[2017-10-08] MEDS ORDERED: ONDANSETRON 4 MG INJ IV PRN (01:00)
[2017-10-08] MEDS ORDERED: ALPRAZOLAM 1 MG TAB PO ONE (01:00)
[2017-10-08] MEDS ORDERED: ACETAMINOPHEN 325 MG TAB PO PRN ×2 (01:00→05:00)
--- NOTE | 2017-10-08 01:49 | ERD ---
ER Documentation Chief Complaint Chief Complaint bib ra from other ER IFT for possible STEMI; CP resolved after ntg x1 HPI 71-year-old male was sent from [facility] for worry for potential need for a manager cardiac cath. He had a left bundle branch block on his EKG which the computer read as possible STEMI. The attending provider, Dr. Terry did not think the patient was having a STEMI he had a negative troponin of 0.04 but preferred him to be at a facility did have a Spinner Cap Frame. Had been seen at this facility earlier in the day and discharged. He states that he had chest pain and shortness of breath. Chest pain was resolved with nitroglycerin. Has felt weaker than normal recently. Denies any dark stools vomiting or blood in stool. ROS All systems reviewed and are negative except as per history of present illness. Medications Home Meds Reported Medications [Cholesterol] No Conflict Check, 1 TAB PO QHS 10/07/17 Sevelamer Hcl* (Renagel*) 800 Mg Tablet, 800 MG PO WITH MEALS, TAB 10/07/17 Citalopram Hydrobromide* (Citalopram Hydrobromide*) 40 Mg Tablet, 40 MG PO DAILY , #30 TAB 10/07/17 Amlodipine Besylate* (Norvasc*) 5 Mg Tablet, 5 MG PO BID, TAB 10/07/17 Carvedilol* (Carvedilol*) 12.5 Mg Tablet, 12.5 MG PO BID, #60 TAB 10/07/17 Ezetimibe* (Zetia*) 10 Mg Tablet, 10 MG PO DAILY, TAB 10/07/17 Folic Acid* (Folic Acid*) 1 Mg Tablet, 1 MG PO DAILY, TAB 10/07/17 Nifedipine* (Nifedipine ER*) 60 Mg Tablet.sa, 60 MG PO BID, TAB.SA 10/07/17 Multivitamins* (Theragran*) 1 Tab Tab, 1 TAB PO DAILY, TAB 10/07/17 Isosorbide Mononitrate* (Isosorbide Mononitrate*) 30 Mg Tab.er.24h, 30 MG PO BID , TAB 10/07/17 Hydralazine Hcl* (Hydralazine Hcl*) 50 Mg Tab, 50 MG PO QID, #120 TAB 10/07/17 Aspirin* (Aspirin* Chew) 81 Mg Tab.chew, 81 MG PO DAILY, TAB.CHEW 09/07/17 Pantoprazole* (Pantoprazole*) 40 Mg Tablet.dr, 40 MG PO AC BREAKFAST, TAB 08/19/17 Ranolazine* (Ranexa*) 500 Mg Tab.sr.12h, 500 MG PO Q12, TAB 01/28/17 Zolpidem Tartrate* (Zolpidem Tartrate*) 5 Mg Tablet, 5 MG PO QHS Y for INSOMNIA , #30 TAB 12/01/16 Clopidogrel Bisulfate (Clopidogrel) 75 Mg Tablet, 75 MG PO QHS, #30 TAB 12/01/16 Alprazolam* (Alprazolam*) 0.25 Mg Tablet, 0.25 MG PO QHS Y for ANXIETY, TAB 12/01/16 Allopurinol* (Allopurinol*) 100 Mg Tablet, 100 MG PO DAILY, TAB 12/01/16 Discontinued Reported Medications Simvastatin* (Zocor*) 40 Mg Tablet, 40 MG PO QHS, #30 TAB 10/07/17 Nitroglycerin* (Nitroglycerin* SL) 0.4 Mg Tab.subl, 0.4 MG SL Q5MIN Y for CHEST PAIN, BOTTLE 09/07/17 Discontinued Scripts Losartan Potassium* (Losartan Potassium*) 25 Mg Tablet, 25 MG PO DAILY for 90 Days, TAB 3 Refills Prov:POP BOYCE MD 02/06/17 Allergies Allergies: Coded Allergies: No Known Drug Allergies (Verified Allergy, Unknown, 10/07/17) PMhx/Soc History of Surgery: Yes (KIDNEY TRANSPLANT, 15 STENTS, 2 HIP REPLACMENTS, CATARACT SX, TONSILLECTOMY) Anesthesia Reaction: No Hx Neurological Disorder: Yes (Neuropathy) Hx Respiratory Disorders: Yes (Pleural effusion, O2 dependent) Hx Cardiac Disorders: Yes (HTN, HYPERLIPIDEMIA, PACEMAKER, STENT PLACEMENT, CARDIOMYOPATHY) Hx Psychiatric Problems: No Hx Miscellaneous Medical Probl: Yes (Suspicious colon carcinoma) Hx Alcohol Use: Yes Hx Substance Use: No Hx Tobacco Use: No Smoking Status: Unknown if ever smoked Physical Exam Vitals Vital Signs Date Time Temp Pulse Resp B/P Pulse Ox O2 Delivery O2 Flow Rate FiO2 10/07/17 22:33 98.2 106 18 127/60 100 Nasal Cannula 6.0 10/07/17 21:48 Nasal Cannula 6 10/07/17 20:31 98.2 116 22 128/61 100 Physical Exam Const: [] Mild distress, appears uncomfortable Head: Atraumatic Eyes: Normal Conjunctiva ENT: Normal External Ears, Nose and Mouth. Neck: Full range of motion..~ No meningismus. Resp: Clear to auscultation bilaterally Cardio: Regular tachycardia, grade 2 systolic murmur at left sternal border. Abd: Soft, non tender, scaphoid abdomen, non distended. Normal bowel sounds Skin: No petechiae or rashes, pale Back: No midline or flank tenderness Ext: No cyanosis, trace pedal edema, pulses intact all 4 extremities. Dialysis access left upper extremity with palpable thrill. Neur: Awake and alert and oriented 3, no focal deficits Psych: Normal Mood and Affect Result Diagram: 10/07/17211810/07/172118 Results 24 hrs Laboratory Tests Test 10/07/17 21:19 White Blood Count 6.610^3/ul Red Blood Count 2.6610^6/ul Hemoglobin 7.6g/dl Hematocrit 25.9% Mean Corpuscular Volume 97.4fl Mean Corpuscular Hemoglobin 28.6pg Mean Corpuscular Hemoglobin Concent 29.3g/dl Red Cell Distribution Width 18.1% Platelet Count 39026^3/UL Mean Platelet Volume 10.0fl Neutrophils % 71.8% Lymphocytes % 19.8% Monocytes % 5.7% Eosinophils % 1.8% Basophils % 0.6% Nucleated Red Blood Cells % 0.0/100WBC Neutrophils # 4.810^3/ul Lymphocytes # 1.310^3/ul Monocytes # 0.410^3/ul Eosinophils # 0.110^3/ul Basophils # 0.010^3/ul Nucleated Red Blood Cells # 0.010^3/ul Sodium Level 140mmol/L Potassium Level 3.5mmol/L Chloride Level 98mmol/L Carbon Dioxide Level 34mmol/L Anion Gap 12 Blood Urea Nitrogen 24mg/dl Creatinine 2.60mg/dl Glucose Level 97mg/dl Calcium Level 8.7mg/dl Troponin I 0.043ng/ml B-Type Natriuretic Peptide [id number]/ML Current Medications Medications (Trade) Dose Ordered Sig/Leonardo Route PRN Reason Start Time Stop Time Status Last Admin Dose Admin Alprazolam 1 mg 1 mg ONCE ONCE PO 10/08/17 01:00 10/08/17 01:01 DC 10/08/17 00:48 Sodium Chloride (NS) 250 ml @ 0 mls/hr Q0M ONCE IV 10/08/17 00:49 10/08/17 00:51 DC Ondansetron HCl (Zofran Inj) 4 mg ER BRIDGE PRN IV NAUSEA AND/OR VOMITING 10/08/17 01:00 10/09/17 00:59 Acetaminophen (Tylenol Tab) 650 mg ER BRIDGE PRN PO MILD PAIN/FEVER 10/08/17 01:00 10/09/17 00:59 Procedures/MDM Chest pain and acute symptomatic anemia in elderly male with extensive cardiac risk factors. Notably the patient is actively having acute coronary syndrome currently. Does have extremely elevated BNP at all is a dialysis patient is kidney function appears to be better than usual. He may have a superimposed congestive heart failure that would be difficult to differentiate from other fluid overload. Although the chest x-ray says that it cannot exclude pneumonia versus other factors I have low suspicion for pneumonia the patient has no elevated white count has had no cough. Fluid overload versus congestive heart failure much more likely cause as well as decreased oxygen carrying capacity from his anemia. He was tachycardia do not want to give him IV fluids because of already having signs of fluid overload as well as volume expansion that will occur with blood product administration. Dr. Gamez is admitting to telemetry. EKG interpretation: Sinus tachycardia with single PVC and fusion complexes, left bundle branch block, demand pacemaker, no ST or T-wave changes concerning for acute ischemia. Appropriate discordance. Abnormal computing architect interpretation: Sinus tachycardia with occasional PVC. No other arrhythmia Chest x-ray interpretation: Large right-sided pleural effusion, no pneumothorax , no obvious infiltrates of a difficult to see through pleural effusion, no widened mediastinum, no fractures Clinical care time greater than 35 minutes: This includes treatment of unstable vital signs and the patient with multiple cardiac risk factors with acute symptomatic anemia, treatment and monitoring with stable vital signs, blood product administration, review of chart, multiple space bedside to reassess cardio dynamic status. Discussion with patient admitting doctor. This does not include any billable procedures Departure Diagnosis: Primary Impression: Symptomatic anemia Additional Impressions: Severe anemia Chest pain Pleural effusion Fluid overload Chronic renal failure Condition: Serious SHREYAS CAMPA DO Oct 08, 2017 01:47
[2017-10-08 03:04] LABS: CREATINE KINASE < 20 IU/L (23-200)
[2017-10-08 03:13] LABS: TROPONIN-I 0.049 ng/ml (0.00-0.12)
[2017-10-08] MEDS ORDERED: ZOLPIDEM 5 MG TAB PO PRN (04:30)
[2017-10-08] MEDS ORDERED: ALPRAZOLAM 0.25 MG TAB PO PRN (04:30)
[2017-10-08] MEDS ORDERED: HYDROCODONE/APAP (5/325) TAB PO PRN (05:00)
[2017-10-08] MEDS ORDERED: PANTOPRAZOLE (EC) 40 MG TAB PO SCH (07:25)
[2017-10-08 08:36] LABS: BASOPHILS % 0.7 % (0.0-2.0); EOSINOPHILS # 0.2 10^3/ul (0.0-0.5); EOSINOPHILS % 3.2 % (0.0-7.0); HEMATOCRIT 27.3 % (42.0-52.0); LYMPHOCYTES # 1.5 10^3/ul (0.8-2.9); LYMPHOCYTES % 26.3 % (15.0-51.0); MEAN CORPUSCULAR HGB CONC 29.3 g/dl (32.0-37.0); MEAN CORPUSCULAR VOLUME 98.9 fl (82.0-101.0); MEAN PLATELET VOLUME 10.1 fl (7.4-10.4); MONOCYTE # 0.4 10^3/ul (0.3-0.9); MONOCYTES % 7.2 % (0.0-11.0); NEUTROPHIL # 3.5 10^3/ul (1.6-7.5); NEUTROPHILS % 62.4 % (39.0-77.0); PLATELET COUNT 178 10^3/UL (140-415); RED BLOOD COUNT 2.76 10^6/ul (4.70-6.10); RED CELL DISTRIBUTION WIDTH 18.4 % (11.5-14.5); WHITE BLOOD COUNT 5.6 10^3/ul (4.8-10.8)
[2017-10-08 08:57] LABS: ALBUMIN 2.6 g/dl (3.3-4.9); ALBUMIN/GLOBULIN RATIO 0.78; BILIRUBIN,INDIRECT 0.2 mg/dl (0-1.1); BILIRUBIN,TOTAL 0.2 mg/dl (0.2-1.3); CALCIUM 8.8 mg/dl (8.4-10.2); CREATININE 3.26 mg/dl (0.61-1.24); POTASSIUM 4.2 mmol/L (3.5-5.1); TOTAL PROTEIN 5.9 g/dl (6.1-8.1)
[2017-10-08] MEDS ORDERED: MULTIVITAMINS THERAPEUTIC TAB PO SCH (09:00)
[2017-10-08] MEDS ORDERED: FOLIC ACID 1 MG TAB PO SCH (09:00)
[2017-10-08] MEDS ORDERED: NIFEdipine (XL) 60 MG TAB PO SCH (09:00)
[2017-10-08] MEDS ORDERED: CITALOPRAM 20 MG TAB PO SCH (09:00)
[2017-10-08] MEDS ORDERED: ASPIRIN 81 MG TAB PO SCH (09:00)
[2017-10-08] MEDS ORDERED: AMLODIPINE 5 MG TAB PO SCH (09:00)
[2017-10-08] MEDS ORDERED: ALLOPURINOL 100 MG TAB PO SCH (09:00)
[2017-10-08] MEDS ORDERED: ISOSORBIDE MONONITRATE(SR)30 MG TAB PO SCH (09:00)
[2017-10-08] MEDS ORDERED: RANOLAZINE (SR) 500 MG TAB PO SCH (09:00)
[2017-10-08] MEDS ORDERED: EZETIMIBE 10 MG TAB PO SCH (09:00)
[2017-10-08 09:06] LABS: CREATINE KINASE < 20 IU/L (23-200)
[2017-10-08 09:08] LABS: TROPONIN-I 0.052 ng/ml (0.00-0.12)
[2017-10-08 09:13] LABS: CK-MB 0.78 ng/ml (0.0-2.4)
--- NOTE | 2017-10-08 09:23 | PREOPHP ---
DATE OF ADMISSION: 10/08/2017 REASON FOR ADMISSION: Chest pain and shortness of breath. HISTORY OF PRESENT ILLNESS: This 71-year-old man was in his usual state of health until last evenin g when he said that he rolled over in his hospital bed, developed shortness of breath and then left- sided chest pain. He took some nitroglycerin spray under the tongue which did help; however, the pa in persisted. Paramedics were called and he was brought to the emergency room here at [facility]. The patient was admitted through the emergency room. The patient in the ER was ev aluated by the emergency room physician. They did not think he was having a STEMI. He had a negati ve troponin level. He was admitted here because of the availability of a cardiac catheterization la b. The patient at this time is feeling better. He still feels generalized weakness. The patient h as end-stage renal disease and is on maintenance hemodialysis Thursday, Thursday and Thursday. He was last dialyzed yesterday. The patient has had left PleurX tube in place which he said fell out. The patient has been in the hospital multiple times over the last year. He has the following medical problems: 1. Recurrent pleural effusions, nonmalignant, noninfectious due to congestive heart failure. 2. Congestive heart failure. 3. Bilateral pleural effusions. Recently having a left PleurX tube. 4. End-stage renal disease due to diabetic nephropathy, maintained on hemodialysis. 5. Known ischemic cardiomyopathy status post multiple PCIs and stents in the past. 6. History of biventricular AICD placement at [facility] in 10/2016. 7. Diabetes mellitus, currently diet controlled. 8. Status post renal transplant x2. 9. Peripheral vascular disease. 10. Hyperlipidemia. 11. Restless legs syndrome. 12. Hypertension, now controlled with dialysis. 13. History of gout. 14. History of recent acute cholecystitis successfully treated conservatively with IV antibiotics. 15. Abnormality on CAT scans suspicious for colon cancer. The patient has refused multiple attempt s at colonoscopy. 16. Generalized anxiety disorder. CURRENT MEDICATIONS: Include the followin. Sevelamer 800 mg 3 times a day with meals. 2. Citalopram 40 mg a day. 3. Amlodipine 5 mg a day. 4. Carvedilol 12.5 mg twice a day. 5. Zetia 10 mg a day. 6. Folic acid 1 mg a day. 7. Nifedipine extended release 60 mg twice a day. 8. Multivitamins 1 daily. 9. Isosorbide mononitrate 30 mg twice a day. 10. Hydralazine 50 mg 4 times a day. 11. Aspirin 81 mg a day. 12. Pantoprazole 40 mg a day. 13. Ranexa 500 mg twice a day. 14. Zolpidem 5 mg at bedtime p.r.n. sleep. 15. Clopidogrel 75 mg a day. 16. Alprazolam 0.25 mg at bedtime. 17. Allopurinol 100 mg a day. ALLERGIES: HE HAS NO KNOWN DRUG ALLERGIES. PAST SURGICAL HISTORY: Kidney transplant x2, 15 coronary artery stents, 2 hip replacements, catarac t surgery, tonsillectomy. PHYSICAL EXAMINATION: GENERAL: At this time reveals an elderly ill-appearing man in no apparent distress. VITAL SIGNS: Temperature 97.3, pulse of 96, respirations 20, blood pressure 98/49, O2 saturation 99 % on 2 liter nasal cannula. HEENT: Head normocephalic. Eyes: Extraocular muscles intact. NOSE AND MOUTH: Normal. NECK: Supple. No neck vein distention. LUNGS: Diminished breath sounds bilaterally, more diminished on the right than the left. HEART: Regular rhythm. No murmurs, gallops or rubs. He has a pacemaker ACID in the right upper ch est wall. ABDOMEN: Soft, nontender, no masses or megaly. EXTREMITIES: No peripheral edema. NEUROLOGIC: Grossly intact without any focal neurologic deficits. He has a functioning left upper arm extremity AV fistula. LABORATORY DATA: Show hemoglobin 7.6, hematocrit 25.9, white count 6600. Sodium 140, potassium 3.5 , chloride 98, CO2 34, BUN 24, creatinine 2.6, natriuretic peptide elevated at 86,100. Troponins anthony ve been negative. Chest x-ray shows a large right pleural effusion and/or infiltrate. IMPRESSION: 1. Recurrent right pleural effusion, possible pneumonia. 2. Chest pain, possibly cardiac in origin, although troponins have been negative. Evaluation for S T elevation myocardial infarction was negative in the ER. 3. End-stage renal disease on maintenance hemodialysis. 4. Ischemic cardiomyopathy. 5. Anemia of chronic disease. 6. History of diabetes mellitus. The patient says to me that he wants to go on hospice as of today. He has been discussing this opti on for weeks with his doctors including his manager vehicle, Dr. Johnson. The patient has talked to a hospice organization [facility] and knows their director, Jose Miguel Patterson. We will contact them and order hospice. The patient says that he does not want to be dialyzed any longer and that he wants t o be a DNR. PLAN: 1. Hospice evaluation. 2. Stop hemodialysis treatments. 3. No further workup and/or treatment as per patient's wishes. Dictated By: RIMMA WEI MD, ND/RAYA Conf#: [id number] DID#: [id number]
[2017-10-08] MEDS: SEVELAMER 800 MG TAB PO SCH ×2 (10:43→11:50)
--- NOTE | 2017-10-08 12:54 | PDOCDIS ---
Discharge Instructions DIAGNOSIS Discharge Diagnosis Ischemic Cardiomyopathy CONDITION Patient Condition: Fair HOME CARE INSTRUCTIONS: Diet Instructions: Reduced Sodium ACTIVITY: Activity Restrictions: Slowly Increase Activity Bathing Restrictions: Sponge Bath RIMMA WEI MD Oct 08, 2017 12:54
--- NOTE | 2017-10-08 14:32 | DS ---
DATE OF ADMISSION: 10/08/2017 DATE OF DISCHARGE: HISTORY OF PRESENT ILLNESS: This 71-year-old man was admitted through the emergency room last eveni melissa after he presented with chest pain and shortness of breath. When I saw the patient this morning, he told me that he wanted to go on to hospice. He told me that he already made arrangements with a hospice organization called [facility]. He said that he wanted to go home with hospice. He wanted t o be a DNR status and that he wanted to stop dialysis treatments. I am informed the bottle caser christine mckeon the outreach and education social worker and they made arrangements for the patient to be discharged home today on hospic e. The hospice nurses will decide about medication. He will be sent home today on hospice and to s top any further dialysis treatments. The patient was in fair condition at the time of discharge. DISCHARGE DIAGNOSES: 1. End-stage renal disease. 2. Ischemic cardiomyopathy. 3. Coronary artery disease. 4. Diabetes mellitus. Dictated By: RIMMA WEI MD, ND/RAYA Conf#: [id number] DID#: [id number]
[2017-10-08] MEDS ORDERED: CLOPIDOGREL 75 MG TAB PO SCH (21:00)
== END 2017-10-08 18:00 | disposition hospice, home (50) | DRG 313 ==
LOC: E/R 20:22 → TEL 10-08 00:59
PROVIDERS: ADMIT Internal Medicine; ATTEND Internal Medicine
DX: R07.9 Chest pain, unspecified (principal); I25.10 Atherosclerotic heart disease of native coronary artery without angina pectoris; I13.2 Hypertensive heart and chronic kidney disease with heart failure and with stage 5 chronic kidney disease, or end stage renal disease; J90 Pleural effusion, not elsewhere classified; N18.6 End stage renal disease; Z94.0 Kidney transplant status; I44.7 Left bundle-branch block, unspecified; D64.9 Anemia, unspecified; E11.22 Type 2 diabetes mellitus with diabetic chronic kidney disease; I50.9 Heart failure, unspecified; I25.5 Ischemic cardiomyopathy; E11.51 Type 2 diabetes mellitus with diabetic peripheral angiopathy without gangrene; G25.81 Restless legs syndrome; F41.9 Anxiety disorder, unspecified; D63.8 Anemia in other chronic diseases classified elsewhere; Z66 Do not resuscitate; Z99.2 Dependence on renal dialysis
CPT/HCPCS: 36415; 71010; 80048; 80053; 82550; 82553; 83880; 84484; 85025; 86850; 86870; 86900; 86901; 86920; 87081; J7040